=== PATIENT | male | born 1960 | race American Indian/Alaskan Native ===

== ENCOUNTER 2019-02-24 05:25 | Emergency (ER) | payer MEDICAID, OTHER, SELFPAY ==
[2019-02-24 05:30] VITALS: BP 164/110; PULSE 124; RESP 19; TEMP 36.3; O2SAT 100; BMI 31.3
[2019-02-24] MEDS: SODIUM CHLORIDE 0.9% 1,000 ML 1000 ML IV ×2 (05:45→06:37)
[2019-02-24] MEDS: PANTOPRAZOLE 40 MG VIAL IV (05:45)
[2019-02-24] MEDS: ONDANSETRON 4 MG/2 ML INJ IV (05:45)
--- NOTE | 2019-02-24 05:46 | ED_ITS ---
HPI - Nausea/Vomiting/Diarrhea General Chief complaint: Nausea/Vomiting/Diarrhea Stated complaint: vomiting since last night, cramping arms/legs Time Seen by Provider: 02/24/19 05:29 Source: patient Mode of arrival: ambulatory Limitations: no limitations History of Present Illness HPI Narrative: 58-year-old male nonsmoker with extensive alcohol history presents with multiple episodes of nausea vomiting and generalized abdominal pain over past 12 hours. He has been drinking heavily since the passing of his about 2 months ago. He has been drinking upwards of a pt of alcohol per day but over the past 2 days he split 0.5 gal with a few of his cousins. He feels generally weak and complains epigastric abdominal pain which is worse with motion, eating or drinking. He denies fever or chills. He has no headache, runny nose or sore throat. He has no chest pain or cough MD complaint: nausea and vomiting Onset (ago): hour(s) Description of Vomiting: food contents and watery Description of Diarrhea: none Associated Abdominal Pain: Yes Location of pain: diffuse Quality: cramping and aching Pain Consistency: intermittent Relieving factors: none Exacerbating factors: eating and vomiting Context: alcohol abuse Associated symptoms: denies other symptoms Related Data Previous Rx's Medication Instructions Recorded ketorolac 1 drp OPHTH QID #5 ml 06/20/17 metoprolol succinate ER 50 mg 50 mg PO BID #60 tab 10/06/18 tablet,extended release 24 hr cyclobenzaprine 10 mg tablet 10 mg PO TIDP #90 tab 10/13/18 gabapentin 300 mg capsule 300 mg PO Q8H #90 cap 10/13/18 indomethacin 50 mg capsule 50 mg PO TIDP PRN #90 cap 10/13/18 omeprazole 20 mg capsule,delayed 20 mg PO QDAY #30 cap 10/13/18 release amitriptyline 25 mg tablet 25 mg PO BEDTIME #30 tab 01/07/19 ondansetron 4 mg PO TID-QID PRN #10 tab 02/24/19 Allergies Allergy/AdvReac Type Severity Reaction Status Date / Time No Known Drug Allergies Allergy Verified 10/13/18 13:23 Review of Systems Constitutional Denies chills, Denies fever(s), Denies lethargy and Denies weakness Eyes Denies change in vision, Denies eye discharge, Denies irritation and Denies loss of vision ENT Ears, Nose, Mouth, and Throat: Denies change in voice, Denies neck pain and De nies sore throat Cardiovascular Denies chest pain, Denies irregular heart rhythm, Denies lightheadedness, Denies palpitations, Denies dyspnea, Denies dyspnea on exertion and Denies orthopnea Respiratory Denies cough, Denies dyspnea, Denies dyspnea on exertion and Denies wheezing Gastrointestinal Gastrointestinal: Reports abdominal pain, Denies change in bowel habits, Denies diarrhea, Reports nausea and Reports vomiting Genitourinary Denies hematuria, Denies flank pain, Denies urinary incontinence and Denies urinary urgency Musculoskeletal Denies neck pain Integumentary/Breasts Denies pruritus, Denies erythema, Denies rash and Denies wounds Neurologic Denies confusion, Denies loss of vision and Denies weakness Psychiatric Denies anxiety, Denies confusion, Denies depression, Denies homicidal ideation and Denies suicidal ideation Endocrine Denies palpitations Hematologic/Lymphatic Denies easy bruising Allergic/Immunologic Denies wheezing [facility] Medical History Acid reflux (Chronic) Tobacco use disorder, moderate, in early remission (Chronic) Hypertension (Chronic) Ankylosing spondylitis (Chronic) Fracture cervical vertebra-closed (Acute) Ankle pain (Chronic) Ankylosing spondylitis (Chronic 1985) Chronic back pain (Chronic) Foot pain (Chronic) GERD (gastroesophageal reflux disease) (Chronic) Hypertension (Chronic) Muscle pain (Chronic) Alcohol abuse (Resolved) Surgical History History of open reduction and internal fixation (ORIF) procedure (Resolved 2005) History of tonsillectomy (Resolved) Status post colonoscopy (Resolved 2012) Status post incision and drainage (Resolved) Family History (Updated 09/02/18 @ 14:59 by Norma Jackson) Father No problems noted. Mother Cancer Other Alcoholism Colorectal cancer Social History Smoking Status: Current every day smoker Family History Father No problems noted. Mother Cancer Other Alcoholism Colorectal cancer Social History Smoking Status: Current every day smoker Exam Narrative Exam Narrative: GENERAL: 58-year-old male appears older than stated age, ac tively vomiting and diaphoretic HEAD: Atraumatic. Normocephalic. No temporal or scalp tenderness. EYES: Pupils equal round and reactive. Extraocular motions intact. No scleral icterus. No injection or drainage. ENT: Nose without bleeding, purulent drainage or septal hematoma. Throat without erythema, tonsillar hypertrophy or exudate. Uvula midline. Airway patent. NECK: Trachea midline. No JVD or lymphadenopathy. Supple, nontender, no meningeal signs. CARDIOVASCULAR: Tachycardic with regular rhythm without murmurs, gallops, or rubs. RESPIRATORY: Clear to auscultation. Breath sounds equal bilaterally. No wheezes, rales, or rhonchi. GASTROINTESTINAL: Abdomen soft, generalized tenderness, nondistended. No hepato- splenomegaly, or palpable masses. No guarding. EXTREMITIES: No clubbing, cyanosis, or edema. No joint tenderness, effusion, or edema noted. BACK: Nontender without deformity or crepitance. No flank tenderness. NEURO: AOx3. SKIN: No rash or erythema. Initial Vital Signs Initial Vital Signs: Vital Signs Temperature 97.3 F L 02/24/19 05:30 Pulse Rate 124 H 02/24/19 05:30 Respiratory Rate 19 02/24/19 05:30 Blood Pressure 164/110 H 02/24/19 05:30 Pulse Oximetry 100 02/24/19 05:30 Course Orders Ordered: Discontinued Medications Acetaminophen (Tylenol) 975 mg PO NOW ONE Stop: 02/24/19 07:48 Last Admin: 02/24/19 07:48 Dose: 975 mg Sodium Chloride (Normal Saline 0.9%) 1,000 mls @ 1,000 mls/hr IV BOLUS ONE Stop: 02/24/19 06:37 Last Infusion: 02/24/19 06:37 Dose: 0 mls/hr Admin: 02/24/19 05:45 Dose: 1,000 mls/hr Sodium Chloride (Normal Saline 0.9%) 1,000 mls @ 1,000 mls/hr IV BOLUS ONE Stop: 02/24/19 07:36 Last Infusion: 02/24/19 07:47 Dose: 0 mls/hr Admin: 02/24/19 06:37 Dose: 1,000 mls/hr Ondansetron HCl (Zofran) 4 mg IV NOW ONE Stop: 02/24/19 05:39 Last Admin: 02/24/19 05:45 Dose: 4 mg Pantoprazole Sodium (Protonix) 40 mg IV NOW ONE Stop: 02/24/19 05:39 Last Admin: 02/24/19 05:45 Dose: 40 mg Potassium Chloride (Potassium Chloride) 40 meq PO NOW ONE Stop: 02/24/19 06:56 Last Admin: 02/24/19 07:00 Dose: 40 meq Vital Signs - 8 hr 02/24/19 05:30 02/24/19 06:04 Temperature 97.3 F L Pulse Rate 124 H 108 H Respiratory Rate 19 13 Blood Pressure 164/110 H Blood Pressure [Right Arm] 145/102 H Pulse Oximetry 100 97 MDM - Nausea/Vomiting/Diarrhea Lab Data Result diagrams: 02/24/19 05:50 02/24/19 05:50 Lab Results 02/24/19 02/24/19 02/24/19 Range/Units 05:41 05:50 05:50 WBC 8.6 (4.5-11.0) X10^3/uL RBC 4.91 (4.5-5.9) X10^6/uL Hgb 16.9 (13.5-17.5) g/dL Hct 47.7 (41-53) % MCV 97.2 (80-100) fL MCH 34.4 H (26-34) PG MCHC 35.4 (30-36) % RDW 16.4 H (11.6-14.8) % Plt Count 260 (150-400) X10^3/uL Neut % (Auto) 73.2 (50-75) % Lymph % (Auto) 17.4 L (25-40) % [place] % (Auto) 8.0 (3-14) % Eos % (Auto) 0.2 L (2-4) % Baso % (Auto) 1.2 (0-2) % Neut # (Auto) 6300 (4897-1630) /uL Lymph # (Auto) 1500 (8112-7393) /uL [place] # (Auto) 700 (0-900) /uL Eos # (Auto) 0 (0-450) /uL Baso # (Auto) 100 (0-100) /uL VBG pH 7.43 (7.33-7.43) VBG pCO2 38.8 L (45-50) mmHg VBG pO2 33 L (35-45) mmHg VBG HCO3 26 (23-28) mmol/L VBG Total CO2 27 (24-29) mmol/L VBG O2 Saturation 66 L (70-75) % VBG Base Excess 2.0 (0-4) mmol/L Sodium 137 (137-145) mmol/L Potassium 3.2 L (3.4-5.1) mmol/L Chloride 98 (98-107) mmol/L Carbon Dioxide 26 (22-32) mmol/L BUN 4 L (9-20) mg/dL Creatinine 0.70 (0.66-1.25) mg/dL Estimated GFR > 60.0 (>60) mL/min BUN/Creatinine Ratio 5.7 L (6-22) Glucose 128 H (70-100) mg/dL Calcium 8.8 (8.4-10.2) mg/dL Total Bilirubin 1.1 (0.2-1.3) mg/dL AST 48 (17-59) IU/L ALT 43 (21-72) IU/L Alkaline Phosphatase 142 H (38-126) U/L Total Protein 7.8 (6.3-8.2) g/dL Albumin 4.5 (3.5-5.0) g/dL Globulin 3.3 (1.7-4.1) g/dL Albumin/Globulin Ratio 1.4 (1.0-2.8) Lipase 233 (23-300) U/L Ethyl Alcohol < 10 mg/dL Influenza A & B (PCR) (Negative) 02/24/19 02/24/19 02/24/19 Range/Units 05:50 05:50 05:50 WBC (4.5-11.0) X10^3/uL RBC (4.5-5.9) X10^6/uL Hgb (13.5-17.5) g/dL Hct (41-53) % MCV (80-100) fL MCH (26-34) PG MCHC (30-36) % RDW (11.6-14.8) % Plt Count (150-400) X10^3/uL Neut % (Auto) (50-75) % Lymph % (Auto) (25-40) % [place] % (Auto) (3-14) % Eos % (Auto) (2-4) % Baso % (Auto) (0-2) % Neut # (Auto) (3004-3464) /uL Lymph # (Auto) (7659-5109) /uL [place] # (Auto) (0-900) /uL Eos # (Auto) (0-450) /uL Baso # (Auto) (0-100) /uL VBG pH (7.33-7.43) VBG pCO2 (45-50) mmHg VBG pO2 (35-45) mmHg VBG HCO3 (23-28) mmol/L VBG Total CO2 (24-29) mmol/L VBG O2 Saturation (70-75) % VBG Base Excess (0-4) mmol/L Sodium (137-145) mmol/L Potassium (3.4-5.1) mmol/L Chloride (98-107) mmol/L Carbon Dioxide (22-32) mmol/L BUN (9-20) mg/dL Creatinine (0.66-1.25) mg/dL Estimated GFR (>60) mL/min BUN/Creatinine Ratio (6-22) Glucose (70-100) mg/dL Calcium (8.4-10.2) mg/dL Total Bilirubin (0.2-1.3) mg/dL AST (17-59) IU/L ALT (21-72) IU/L Alkaline Phosphatase (38-126) U/L Total Protein (6.3-8.2) g/dL Albumin (3.5-5.0) g/dL Globulin (1.7-4.1) g/dL Albumin/Globulin Ratio (1.0-2.8) Lipase Cancelled (23-300) U/L Ethyl Alcohol Cancelled mg/dL Influenza A & B (PCR) Negative (Negative) MDM Narrative Medical decision making narrative: Multiple etiologies for patient's symptoms considered including: [Pancreatitis, gallbladder disease, alcoholic ketoacidosis versus gastritis versus other] Patient's symptoms improved or duration of stay with above-stated therapies. Findings and discharge diagnosis discussed with patient/family followed by verbalization of understanding Return precautions discussed with patient/family whom verbalize understanding. Discharge Plan Departure Patient Disposition: Home Clinical Impression: Dehydration, Alcohol abuse, Acute hypokalemia Discharge Date/Time: 02/24/19 07:51 Interventions: ED Discharge Assessment Last Done: 02/24/19 07:50 Instructions: DI for Dehydration -- Adult, DI for Vomiting -- Adult Activity Restrictions/Additional Instructions: 1. Drink plenty of fluids with frequent small sips. 2. For the next 24 hours a clear liquid diet is advised. After that please employ a brat diet which would include bananas, rice, apples, toast. 3. Please take medications as directed. Your prescription has been electronically transmitted to [facility] at your request 4. Please follow-up with your doctor in the next 1-2 days. Call the office for an appointment. 5. Please return to the emergency Department for any worsening or persistent symptoms, such as increasing pain or fever. Prescriptions: New ondansetron 4 mg tablet,disintegrating 4 mg PO TID-QID PRN (Reason: nausea and vomiting) Qty: 10 RF: 0 No Action ketorolac 0.4 % drops 1 drp OPHTH QID Qty: 5 RF: 0 metoprolol succinate [Toprol XL] 50 mg tablet extended release 24 hr 50 mg PO BID Qty: 60 RF: 11 amitriptyline 25 mg tablet 25 mg PO BEDTIME Qty: 30 RF: 1 gabapentin [Neurontin] 300 mg capsule 300 mg PO Q8H Qty: 90 RF: 11 cyclobenzaprine 10 mg tablet 10 mg PO TIDP Qty: 90 RF: 5 indomethacin 50 mg capsule 50 mg PO TIDP PRN (Reason: pain, moderate) Qty: 90 RF: 5 omeprazole 20 mg capsule,delayed release(DR/EC) 20 mg PO QDAY Qty: 30 RF: 11 Referrals: Sanna Zurita DO [Primary Care Provider] -
[2019-02-24 05:57] LABS: HCO3 VBG 26 mmol/L (23-28); Oxygen Saturation VBG 66 % (70-75); PCO2 VBG 38.8 mmHg (45-50); PO2 VBG 33 mmHg (35-45); Total CO2 VBG 27 mmol/L (24-29); pH VBG 7.43 (7.33-7.43)
[2019-02-24 06:04] VITALS: BP 145/102; PULSE 108; RESP 13; O2SAT 97
[2019-02-24 06:05] LABS: Add Manual Diff / Slide Review NO; Basophils Absolute Auto 100 /uL (0-100); Basophils Percent Auto 1.2 % (0-2); Eosinophils Absolute Auto 0 /uL (0-450); Eosinophils Percent Auto 0.2 % (2-4); Hematocrit 47.7 % (41-53); Hemoglobin 16.9 g/dL (13.5-17.5); Lymphocytes Absolute Auto 1500 /uL (1100-4500); Lymphocytes Percent Auto 17.4 % (25-40); Mean Corpuscular HGB Conc 35.4 % (30-36); Mean Corpuscular Hemoglobin 34.4 PG (26-34); Mean Corpuscular Volume 97.2 fL (80-100); Monocytes Absolute Auto 700 /uL (0-900); Neutrophils Absolute Auto 6300 /uL (1500-7000); Neutrophils Percent Auto 73.2 % (50-75); Platelet Count 260 X10^3/uL (150-400); Red Blood Cell Count 4.91 X10^6/uL (4.5-5.9); Red Cell Distribution Width 16.4 % (11.6-14.8); White Blood Cell Count 8.6 X10^3/uL (4.5-11.0)
--- NOTE | 2019-02-24 06:08 | PC.NURSE ---
patient states that since his several weeks ago he has been drinking about a pint of liquor a day. yesterday him and some friends shared a half gallon of liquor. he started vomiting at 2300 last night and states his arms and legs are cramping. he also reports abdominal cramping. denies any hematemesis. provider aware and no new orders at this time.
[2019-02-24 06:23] LABS: Alanine Aminotransferase 43 IU/L (21-72); Albumin 4.5 g/dL (3.5-5.0); Albumin Globulin Ratio 1.4 (1.0-2.8); Alkaline Phosphatase 142 U/L (38-126); Aspartate Aminotransferase 48 IU/L (17-59); BUN Creatinine Ratio 5.7 (6-22); Bilirubin Total 1.1 mg/dL (0.2-1.3); Blood Urea Nitrogen 4 mg/dL (9-20); Calcium 8.8 mg/dL (8.4-10.2); Carbon Dioxide 26 mmol/L (22-32); Chloride 98 mmol/L (98-107); Estimated Glomerular Filt Rate > 60.0 mL/min (>60); Ethanol (ETOH) < 10 mg/dL; Globulin 3.3 g/dL (1.7-4.1); Glucose 128 mg/dL (70-100); HEMOLYSIS 36 (0-50); Lipase 233 U/L (23-300); Potassium 3.2 mmol/L (3.4-5.1); Sodium 137 mmol/L (137-145); Total Protein 7.8 g/dL (6.3-8.2)
[2019-02-24 06:24] LABS: Influenza A and B by PCR Rapid Negative (Negative)
[2019-02-24 06:30] VITALS: BP 153/96; PULSE 104; RESP 24; O2SAT 98
[2019-02-24] MEDS: POTASSIUM CHLORIDE 20 MEQ/15 ML UDC 40 MEQ PO (07:00)
[2019-02-24 07:02] VITALS: BP 141/92; PULSE 103; RESP 19; O2SAT 99
[2019-02-24] MEDS: ACETAMINOPHEN 325 MG TABLET 975 MG PO (07:48)
== END 2019-02-24 07:51 | disposition home or self-care (01) ==
PROVIDERS: Emergency Provider Emergency Medicine; Family Provider Family Medicine; PCP Family Medicine
DX: E86.0 Dehydration (principal); R10.9 Unspecified abdominal pain; E87.6 Hypokalemia; F10.10 Alcohol abuse, uncomplicated
CPT/HCPCS: 36591; 80053; 80320; 82805; 83690; 85025; 87400; 96361; 96374; 96375; 99283; 99284; C9113; J2405

== ENCOUNTER 2019-10-07 07:43 | Emergency (ER) | payer MEDICAID, OTHER, SELFPAY ==
[2019-10-07] VITALS (9 sets, daily range): BP systolic 143–171; BP diastolic 93–119; PULSE 97–137; RESP 10–20; TEMP 36.4–36.8; O2SAT 97–100
--- NOTE | 2019-10-07 07:55 | ED_ITS ---
HPI - General Adult General Chief complaint: Skin/Abscess/Foreign Body Stated complaint: fever throwing up Time Seen by Provider: 10/07/19 07:48 Source: patient Mode of arrival: Family Vehicle Limitations: no limitations History of Present Illness HPI narrative: 58-year-old male who admits to drinking ?hard alcohol ?and also using IV drugs here for evaluation for proximally 1 week of fevers and feeling poorly. He states that at the start of all of his symptoms he had a wound on his left leg. He states he was supposed to go in to a clinic last to have it evaluated but did not make it. He also has wounds on his left arm. He is unsure how he got these wounds. He states that he thinks that they are ?spider bites? he has never had anything like this in the past. He states that he thinks that he scratches them at night. Over the past day or so he has noticed worsening pain in his left leg and also swelling in his left hand. The pain is causing him to limp. He has also had some nausea. Related Data Previous Rx's Medication Instructions Recorded ketorolac 1 drp OPHTH QID #5 ml 06/20/17 metoprolol succinate 50 mg 50 mg PO BID #60 tab 10/06/18 tablet,extended release 24 hr cyclobenzaprine 10 mg tablet 10 mg PO TIDP #90 tab 10/13/18 gabapentin 300 mg capsule 300 mg PO Q8H #90 cap 10/13/18 indomethacin 50 mg capsule 50 mg PO TIDP PRN #90 cap 10/13/18 omeprazole 20 mg capsule,delayed 20 mg PO QDAY #30 cap 10/13/18 release amitriptyline 25 mg tablet 25 mg PO BEDTIME #30 tab 01/07/19 ondansetron 4 mg PO TID-QID PRN #10 tab 02/24/19 doxycycline hyclate 100 mg PO BID 7 Days #14 tab 10/07/19 Allergies Allergy/AdvReac Type Severity Reaction Status Date / Time No Known Drug Allergies Allergy Verified 10/13/18 13:23 Review of Systems Constitutional Constitutional: Reports fatigue, Reports fever(s) and Reports malaise ENT Ears, Nose, Mouth, and Throat: Denies disequilibrium Cardiovascular Cardiovascular: Denies chest pain and Denies dyspnea Respiratory Respiratory: Denies dyspnea Gastrointestinal Gastrointestinal: Denies abdominal pain, Denies change in stool character and Reports nausea Genitourinary Genitourinary: Denies dysuria Musculoskeletal Comments: Left leg pain, swelling his left hand and left leg Integumentary/Breasts Comments: Wounds the left leg and left arm Neurologic Neurologic: Denies behavioral changes, Denies paresthesias and Denies disequilibrium Psychiatric Psychiatric: Denies behavioral changes Endocrine Endocrine: Reports fatigue Hematologic/Lymphatic Hematologic/Lymphatic: Denies easy bleeding and Denies easy bruising Patient History Medical History Acid reflux (Chronic) Alcohol abuse (Resolved) Ankle pain (Chronic) Ankylosing spondylitis (Chronic 1986) Ankylosing spondylitis (Chronic) Chronic back pain (Chronic) Foot pain (Chronic) Fracture cervical vertebra-closed (Acute) GERD (gastroesophageal reflux disease) (Chronic) Hypertension (Chronic) Hypertension (Chronic) Muscle pain (Chronic) Tobacco use disorder, moderate, in early remission (Chronic) Social History Smoking Status: Current every day smoker alcohol intake frequency: 3 or more drinks per day Substance Use Type: former substance user and marijuana Exam Initial Vital Signs Initial Vital Signs: Vital Signs Temperature 98.2 F 10/07/19 07:43 Pulse Rate 137 H 10/07/19 07:43 Respiratory Rate 20 10/07/19 07:43 Blood Pressure 148/100 H 10/07/19 07:43 Pulse Oximetry 98 10/07/19 07:43 Const General: cooperative, No in distress and ill appearing Orientation: alert, awake and oriented x3 HENMT Head: normal to inspection and normocephalic Resp Effort & Inspection: normal respiratory effort Auscultation: clear to auscultation bilaterally Cardio Rate: tachycardic Rhythm: regular rhythm Pulses: radial pulses present and dorsalis pedis present GI Inspection: non-distended Palpation: soft Skin Other: Patient with a 2 cm round area of crusting ulceration to the anterior aspect of the distal left lower extremity with a surrounding 3 cm of erythema around this. Patient has multiple wounds to his left upper arm both proximal and distal all 1-3 cm with surrounding area of erythema. One of the wounds was draining purulent material. Neuro General: alert, awake and oriented x3 Cognition: normal cognition Speech: speech normal Extrem Other: Patient was swelling to the left hand left lower extremity Psych Appearance: grossly normal and disheveled Affect: normal affect Attitude: cooperative Scores GCS [place] coma scale eye opening: Spontaneous Yuri coma scale verbal response: Orientated Yuri coma scale motor response: Obey commands Yuri coma scale total score: 15 Course Orders Ordered: ED Orders 10/07/19 07:56 XR chest 1V Stat 10/07/19 08:01 EKG-12 Lead Stat 10/07/19 08:05 Blood Culture Stat 10/07/19 08:07 Wound Culture and Gram Stain Stat 10/07/19 08:10 Complete Blood Count AUTO DIFF Stat Comprehensive Metabolic Panel Stat Ethanol (ETOH) Stat Lactate (Lactic Acid) Stat Lipase Stat Procalcitonin Stat Troponin I Stat 10/07/19 10:00 Urine Drug Screen, Rapid Stat 10/07/19 10:07 Lactate (Lactic Acid) Stat Discontinued Medications Acetaminophen (Tylenol) 650 mg PO NOW ONE Stop: 10/07/19 11:27 Last Admin: 10/07/19 11:42 Dose: 650 mg Documented by: LEANNA Diphtheria/Tetanus/Acell Pertussis (Adacel) 0.5 ml IM .ONCE ONE Stop: 10/07/19 08:39 Last Admin: 10/07/19 08:53 Dose: 0.5 ml Documented by: LEANNA Sodium Chloride (Normal Saline 0.9%) 1,000 mls @ 1,000 mls/hr IV BOLUS ONE Stop: 10/07/19 08:55 Last Infusion: 10/07/19 10:09 Dose: 0 mls/hr Documented by: Admin: 10/07/19 08:13 Dose: 1,000 mls/hr Documented by: LEANNA Vancomycin HCl (Vancomycin) 1,000 mg in 200 mls @ 200 mls/hr IV NOW ONE Stop: 10/07/19 09:06 Last Infusion: 10/07/19 10:03 Dose: 0 mls/hr Documented by: Admin: 10/07/19 08:53 Dose: 200 mls/hr Documented by: LEANNA Ceftriaxone Sodium/Dextrose (Rocephin) 1 gm in 50 mls @ 100 mls/hr IV NOW ONE Stop: 10/07/19 08:37 Last Infusion: 10/07/19 08:52 Dose: 0 mls/hr Documented by: Admin: 10/07/19 08:14 Dose: 100 mls/hr Documented by: LEANNA Ondansetron HCl (Zofran) 4 mg IV NOW ONE Stop: 10/07/19 09:15 Last Admin: 10/07/19 09:25 Dose: 4 mg Documented by: DENILSON Vital Signs Vital signs: Vital Signs - 8 hr 10/07/19 07:43 10/07/19 08:32 10/07/19 09:03 Temperature 98.2 F Pulse Rate 137 H 117 H 104 H Respiratory Rate 20 10 L 10 L Blood Pressure 148/100 H Blood Pressure [Left Arm] 143/106 H 164/98 H Pulse Oximetry 98 97 98 10/07/19 09:31 10/07/19 10:11 10/07/19 11:30 Temperature Pulse Rate 98 H 97 H 113 H Respiratory Rate 15 13 14 Blood Pressure Blood Pressure [Left Arm] 162/93 H 162/99 H 171/109 H Pulse Oximetry 97 97 99 10/07/19 11:53 10/07/19 12:05 10/07/19 12:08 Temperature 97.6 F Pulse Rate 104 H 98 H 103 H Respiratory Rate 14 17 15 Blood Pressure 152/93 H Blood Pressure [Left Arm] 162/119 H 152/93 H Pulse Oximetry 100 100 98 Medical Decision Making Lab Data Lab results reviewed: Yes I reviewed the patient's lab results. Result diagrams: 10/07/19 08:10 10/07/19 08:10 Labs: Lab Results 10/07/19 10/07/19 10/07/19 Range/Units 08:10 08:10 08:10 WBC 7.5 (4.5-11.0) X10^3/uL RBC 4.42 L (4.5-5.9) X10^6/uL Hgb 15.1 (13.5-17.5) g/dL Hct 43.2 (41-53) % MCV 97.6 (80-100) fL MCH 34.2 H (26-34) PG MCHC 35.0 (30-36) % RDW 14.6 (11.6-14.8) % Plt Count 270 (150-400) X10^3/uL Neut % (Auto) 72.7 (50-75) % Lymph % (Auto) 17.0 L (25-40) % [place] % (Auto) 8.5 (3-14) % Eos % (Auto) 0.5 L (2-4) % Baso % (Auto) 1.3 (0-2) % Neut # (Auto) 5400 (5954-4273) /uL Lymph # (Auto) 1300 (3179-9356) /uL [place] # (Auto) 600 (0-900) /uL Eos # (Auto) 0 (0-450) /uL Baso # (Auto) 100 (0-100) /uL Sodium 141 (137-145) mmol/L Potassium 3.5 (3.4-5.1) mmol/L Chloride 104 (98-107) mmol/L Carbon Dioxide 23 (22-32) mmol/L BUN 4 L (9-20) mg/dL Creatinine 0.70 (0.66-1.25) mg/dL Estimated GFR > 60.0 (>60) mL/min BUN/Creatinine Ratio 5.7 L (6-22) Glucose 122 H (70-100) mg/dL Lactate (0.7-2.1) mmol/L Calcium 8.9 (8.4-10.2) mg/dL Total Bilirubin 0.9 (0.2-1.3) mg/dL AST 41 (17-59) IU/L ALT 18 (<50) IU/L Alkaline Phosphatase 145 H (38-126) U/L Troponin I (0.01-0.034) ng/mL Total Protein 8.1 (6.3-8.2) g/dL Albumin 4.1 (3.5-5.0) g/dL Globulin 4.0 (1.7-4.1) g/dL Albumin/Globulin Ratio 1.0 (1.0-2.8) Lipase 218 (23-300) U/L Procalcitonin < 0.05 (<0.5) ng/mL U Morph 300 ng/mL cutoff (Negative) Ur Oxycodone Screen (Negative) Urine Methadone Screen (Negative) Ur Barbiturates Screen (Negative) U Tricyclic Antidepress (Negative) Ur Phencyclidine Scrn (Negative) Ur Amphetamines Screen (Negative) U Methamphetamines Scrn (Negative) Ur MDMA Scrn (Ecstasy) (Negative) U Benzodiazepines Scrn (Negative) Urine Cocaine Screen (Negative) U Marijuana (THC) Screen (Negative) Ethyl Alcohol 84 H ( - 10) mg/dL 10/07/19 10/07/19 10/07/19 Range/Units 08:10 08:10 10:00 WBC (4.5-11.0) X10^3/uL RBC (4.5-5.9) X10^6/uL Hgb (13.5-17.5) g/dL Hct (41-53) % MCV (80-100) fL MCH (26-34) PG MCHC (30-36) % RDW (11.6-14.8) % Plt Count (150-400) X10^3/uL Neut % (Auto) (50-75) % Lymph % (Auto) (25-40) % [place] % (Auto) (3-14) % Eos % (Auto) (2-4) % Baso % (Auto) (0-2) % Neut # (Auto) (4269-8777) /uL Lymph # (Auto) (5904-3131) /uL [place] # (Auto) (0-900) /uL Eos # (Auto) (0-450) /uL Baso # (Auto) (0-100) /uL Sodium (137-145) mmol/L Potassium (3.4-5.1) mmol/L Chloride (98-107) mmol/L Carbon Dioxide (22-32) mmol/L BUN (9-20) mg/dL Creatinine (0.66-1.25) mg/dL Estimated GFR (>60) mL/min BUN/Creatinine Ratio (6-22) Glucose (70-100) mg/dL Lactate 3.4 H (0.7-2.1) mmol/L Calcium (8.4-10.2) mg/dL Total Bilirubin (0.2-1.3) mg/dL AST (17-59) IU/L ALT (<50) IU/L Alkaline Phosphatase (38-126) U/L Troponin I < 0.012 (0.01-0.034) ng/mL Total Protein (6.3-8.2) g/dL Albumin (3.5-5.0) g/dL Globulin (1.7-4.1) g/dL Albumin/Globulin Ratio (1.0-2.8) Lipase (23-300) U/L Procalcitonin (<0.5) ng/mL U Morph 300 ng/mL cutoff Positive H (Negative) Ur Oxycodone Screen Negative (Negative) Urine Methadone Screen Negative (Negative) Ur Barbiturates Screen Negative (Negative) U Tricyclic Antidepress Negative (Negative) Ur Phencyclidine Scrn Negative (Negative) Ur Amphetamines Screen Negative (Negative) U Methamphetamines Scrn Positive H (Negative) Ur MDMA Scrn (Ecstasy) Negative (Negative) U Benzodiazepines Scrn Negative (Negative) Urine Cocaine Screen Negative (Negative) U Marijuana (THC) Screen Positive H (Negative) Ethyl Alcohol ( - 10) mg/dL 10/07/19 10/07/19 Range/Units 10:07 10:32 WBC (4.5-11.0) X10^3/uL RBC (4.5-5.9) X10^6/uL Hgb (13.5-17.5) g/dL Hct (41-53) % MCV (80-100) fL MCH (26-34) PG MCHC (30-36) % RDW (11.6-14.8) % Plt Count (150-400) X10^3/uL Neut % (Auto) (50-75) % Lymph % (Auto) (25-40) % [place] % (Auto) (3-14) % Eos % (Auto) (2-4) % Baso % (Auto) (0-2) % Neut # (Auto) (1861-3469) /uL Lymph # (Auto) (3792-4717) /uL [place] # (Auto) (0-900) /uL Eos # (Auto) (0-450) /uL Baso # (Auto) (0-100) /uL Sodium (137-145) mmol/L Potassium (3.4-5.1) mmol/L Chloride (98-107) mmol/L Carbon Dioxide (22-32) mmol/L BUN (9-20) mg/dL Creatinine (0.66-1.25) mg/dL Estimated GFR (>60) mL/min BUN/Creatinine Ratio (6-22) Glucose (70-100) mg/dL Lactate 2.7 H 2.5 H (0.7-2.1) mmol/L Calcium (8.4-10.2) mg/dL Total Bilirubin (0.2-1.3) mg/dL AST (17-59) IU/L ALT (<50) IU/L Alkaline Phosphatase (38-126) U/L Troponin I (0.01-0.034) ng/mL Total Protein (6.3-8.2) g/dL Albumin (3.5-5.0) g/dL Globulin (1.7-4.1) g/dL Albumin/Globulin Ratio (1.0-2.8) Lipase (23-300) U/L Procalcitonin (<0.5) ng/mL U Morph 300 ng/mL cutoff (Negative) Ur Oxycodone Screen (Negative) Urine Methadone Screen (Negative) Ur Barbiturates Screen (Negative) U Tricyclic Antidepress (Negative) Ur Phencyclidine Scrn (Negative) Ur Amphetamines Screen (Negative) U Methamphetamines Scrn (Negative) Ur MDMA Scrn (Ecstasy) (Negative) U Benzodiazepines Scrn (Negative) Urine Cocaine Screen (Negative) U Marijuana (THC) Screen (Negative) Ethyl Alcohol ( - 10) mg/dL Urine Dip Bedside Urine Glucose Negative Bedside Urine Bilirubin - Negative Bedside Urine Ketone +/- 5 Urine Specific [place] 1.015 Bedside Urine Occult Blood +/- Bedside Urine pH 6.5 Bedside Urine Protein - Negative Bedside Urine Urobilinogen - Negative Bedside Urine Nitrite - Negative Bedside Urine Leukocytes - Negative Esterase Point of care testing: Urine Dip Bedside Urine Glucose Negative Bedside Urine Bilirubin - Negative Bedside Urine Ketone +/- 5 Urine Specific [place] 1.015 Bedside Urine Occult Blood +/- Bedside Urine pH 6.5 Bedside Urine Protein - Negative Bedside Urine Urobilinogen - Negative Bedside Urine Nitrite - Negative Bedside Urine Leukocytes - Negative Esterase Imaging Data Chest x-ray: Radiologist's impression: [address] [address] XRay Report Signed Patient: José Miguel Do KMR#: [id number] : [id number]:[id number] Age/Sex: 58 / MDate of Service: 10/07/19 Loc: ED Accession Number: [id number] Procedure: XR chest 1V Ordering Provider: Rico Pennington D.O. PROCEDURE: XR CHEST 1V INDICATIONS: fever and sepsis TECHNIQUE: One view of the chest was acquired. COMPARISON: None. FINDINGS: Surgical changes and devices: Fusion hardware in lower cervical spine and upper thoracic spine is seen. Lungs and pleura: Lungs are clear. No pleural effusions or pneumothorax. Mediastinum: Mediastinal contours appear normal. Heart size is normal. Bones and chest wall: No suspicious bony lesions. Overlying soft tissues appear unremarkable. IMPRESSION: No acute cardiopulmonary pathology. Dictated by: Orlando Samano M.D. on 10/07/2019 at 9:26 Approved by: Orlando Samano M.D. on 10/07/2019 at 9:26 ECG Data Attestation: I personally reviewed and interpreted this ECG as follows: Prior ECG tracings: not available for review Interpretation: Sinus tachycardia Ventricular rate of 131 Normal axis Normal QRS Normal QTC ST depression V4 V5 without reciprocal elevations MDM Narrative Medical decision making narrative: Patient is tachycardic however does not have an elevated white count. Has a negative procalcitonin and is afebrile. The wounds on his left lower extremity and left upper extremity do appear to be infected. He was given antibiotics here in the ER. His initial lactate was elevated however after fluids this decreased. His heart rate also improved after fluids. He is tolerating oral intake. His alcohol level was also elevated this morning. I do feel that many of his presenting symptoms to include how he is generally feeling, nausea and his tachycardia could very well be the result of alcohol withdrawal. Patient does think that he is potentially withdrawing from some alcohol on his friend at bedside also states that he is withdrawing from alcohol. Patient denies any recent use of amphetamines and this was positive in his urine and this could also be the cause of some of his presenting symptoms as well. The wounds on his leg in arm show no signs of abscesses. No indication for incision and drainage. Cultures were obtained. I did discuss the alcohol use with the patient. He declined any offer for help with this out of the emergency department. Given his labs, improvement in his lactate, improvement in his vital signs, I feel that a trial of outpatient antibiotics is warranted. Will send home with doxycycline. He was instructed on return precautions. He was instructed on follow-up. He expressed understanding and agreement with plan. Patient was alert oriented x3 my opinion has capacity to make decisions. Discharge Plan Departure Patient Disposition: Home Clinical Impression: Cellulitis Qualifiers: Site of cellulitis: extremity Site of cellulitis of extremity: lower extremity Laterality: left Qualified Code(s): L03.116 - Cellulitis of left lower limb Alcohol intoxication Qualifiers: Complication of substance-induced condition: with unspecified complication Qu alified Code(s): F10.929 - Alcohol use, unspecified with intoxication, unspecified Discharge Date/Time: 10/07/19 12:05 Instructions: DI for Cellulitis -- Adult, Alcohol Use Disorder Activity Restrictions/Additional Instructions: Recommend that you start taking the antibiotics as directed. No driving for the next 24 hours or in the future if you drink alcohol. [place]. Return to the emergency department for any new or worsening symptoms. Continue the rest of your medications as directed Prescriptions: New doxycycline hyclate 100 mg tablet 100 mg PO BID 7 Days Qty: 14 RF: 0 No Action ketorolac 0.4 % drops 1 drp OPHTH QID Qty: 5 RF: 0 metoprolol succinate [Toprol XL] 50 mg tablet extended release 24 hr 50 mg PO BID Qty: 60 RF: 11 amitriptyline 25 mg tablet 25 mg PO BEDTIME Qty: 30 RF: 1 gabapentin [Neurontin] 300 mg capsule 300 mg PO Q8H Qty: 90 RF: 11 cyclobenzaprine 10 mg tablet 10 mg PO TIDP Qty: 90 RF: 5 indomethacin 50 mg capsule 50 mg PO TIDP PRN (Reason: pain, moderate) Qty: 90 RF: 5 omeprazole 20 mg capsule,delayed release(DR/EC) 20 mg PO QDAY Qty: 30 RF: 11 ondansetron 4 mg tablet,disintegrating 4 mg PO TID-QID PRN (Reason: nausea and vomiting) Qty: 10 RF: 0 Referrals: Sanna Zurita DO [Primary Care Provider] -
[2019-10-07] MEDS: SODIUM CHLORIDE 0.9% 1,000 ML 1000 ML IV (08:13)
[2019-10-07] MEDS: CEFTRIAXONE 1 GM/50 ML FROZ.PIGGY IV (08:14)
[2019-10-07 08:20] LABS: Add Manual Diff / Slide Review NO; Basophils Absolute Auto 100 /uL (0-100); Basophils Percent Auto 1.3 % (0-2); Eosinophils Absolute Auto 0 /uL (0-450); Eosinophils Percent Auto 0.5 % (2-4); Hematocrit 43.2 % (41-53); Hemoglobin 15.1 g/dL (13.5-17.5); Lymphocytes Absolute Auto 1300 /uL (1100-4500); Mean Corpuscular Hemoglobin 34.2 PG (26-34); Mean Corpuscular Volume 97.6 fL (80-100); Monocytes Absolute Auto 600 /uL (0-900); Monocytes Percent Auto 8.5 % (3-14); Neutrophils Absolute Auto 5400 /uL (1500-7000); Neutrophils Percent Auto 72.7 % (50-75); Platelet Count 270 X10^3/uL (150-400); Red Blood Cell Count 4.42 X10^6/uL (4.5-5.9); Red Cell Distribution Width 14.6 % (11.6-14.8); White Blood Cell Count 7.5 X10^3/uL (4.5-11.0)
[2019-10-07 08:31] LABS: Alanine Aminotransferase 18 IU/L (<50); Albumin 4.1 g/dL (3.5-5.0); Alkaline Phosphatase 145 U/L (38-126); Aspartate Aminotransferase 41 IU/L (17-59); BUN Creatinine Ratio 5.7 (6-22); Bilirubin Total 0.9 mg/dL (0.2-1.3); Blood Urea Nitrogen 4 mg/dL (9-20); Calcium 8.9 mg/dL (8.4-10.2); Carbon Dioxide 23 mmol/L (22-32); Chloride 104 mmol/L (98-107); Estimated Glomerular Filt Rate > 60.0 mL/min (>60); Ethanol (ETOH) 84 mg/dL; Glucose 122 mg/dL (70-100); HEMOLYSIS 38 (0-50); Lactate (Lactic Acid) 3.4 mmol/L (0.7-2.1); Lipase 218 U/L (23-300); Potassium 3.5 mmol/L (3.4-5.1); Sodium 141 mmol/L (137-145); Total Protein 8.1 g/dL (6.3-8.2)
--- NOTE | 2019-10-07 08:32 | PC.NURSE ---
left arm and left leg are swollen with multiple wounds. leg has one wound. arm and leg are edematous. areas of redness are outlined with a marker.
[2019-10-07 08:42] LABS: Troponin I < 0.012 ng/mL (0.01-0.034)
[2019-10-07 08:47] LABS: Procalcitonin < 0.05 ng/mL (<0.5)
[2019-10-07] MEDS: VANCOMYCIN 1,000 MG/200 ML PIGGYBACK 200 MG IV (08:53)
[2019-10-07] MEDS: TET,DIPH,PERTUSS(ACELL),VAC/PF 0.5 ML SYRINGE IM (08:53)
[2019-10-07] MEDS: ONDANSETRON 4 MG/2 ML INJ IV (09:25)
[2019-10-07 10:15] LABS: Reflexed Lactate in 2 Hours Y
[2019-10-07 10:23] LABS: UR Morphine/Opiate cutoff 300 Positive (Negative); Ur Creatinine Normal (Normal); Ur Specific Gravity Normal (Normal); Urine Amphetamines Negative (Negative); Urine Barbiturates Negative (Negative); Urine Benzodiazepines Negative (Negative); Urine Cocaine Negative (Negative); Urine MDMA Negative (Negative); Urine Methadone Negative (Negative); Urine Methamphetamines Positive (Negative); Urine Oxycodone Negative (Negative); Urine Phencyclidine Negative (Negative); Urine Tetrahydrocannabinol Positive (Negative); Urine Tricyclic Antidepressant Negative (Negative); Urine pH Normal (Normal)
[2019-10-07 10:27] LABS: Lactate (Lactic Acid) 2.7 mmol/L (0.7-2.1)
[2019-10-07 10:52] LABS: Lactate 2HR (Lactic Acid Rflx) 2.5 mmol/L (0.7-2.1)
[2019-10-07] MEDS: ACETAMINOPHEN 325 MG TABLET 650 MG PO (11:42)
[2019-10-07 12:12] LABS: Reflexed Lactate in 2 Hours Y
--- NOTE | 2019-10-07 12:17 | PC.NURSE ---
pt reports that [place] his sister, kodi will be helping him.
== END 2019-10-07 12:05 | disposition home or self-care (01) ==
PROVIDERS: Emergency Provider Emergency Medicine; PCP Family Medicine
DX: L03.116 Cellulitis of left lower limb (principal); F10.929 Alcohol use, unspecified with intoxication, unspecified
CPT/HCPCS: 36415; 71045; 80053; 80305; 80320; 81003; 83605; 83690; 84145; 84484; 85025; 87040; 87070; 87077; 87147; 87205; 90471; 93005; 96365; 96367; 96374; 99285; 90715; J2405

== ENCOUNTER 2021-01-02 14:16 | Emergency (ER) | payer MEDICAID, OTHER, SELFPAY ==
[2021-01-02 14:15] VITALS: BP 142/96; PULSE 110; RESP 22; TEMP 36.2; O2SAT 96
--- NOTE | 2021-01-02 14:44 | ED.GENADULT ---
HPI - General Adult General Chief complaint: Toxicology Problem Stated complaint: Overdose Time Seen by Provider: 01/02/21 14:19 Source: EMS Mode of arrival: EMS Limitations: altered mental status History of Present Illness HPI narrative: Patient is a 60-year-old male who arrived by BLS crew after he received was reported to be 4 mg of Narcan secondary to was reported be heroin use and also alcohol. Patient is unable to provide any HPI. My unsure as to how the 4 mg of Narcan was administered. I was told that it was potentially family members who administered to him. He has been maintaining his airway in route here to the ER. Related Data Previous Rx's Medication Instructions Recorded ketorolac 1 drp OPHTH QID #5 ml 06/20/17 indomethacin 50 mg capsule 50 mg PO TIDP PRN #90 cap 10/13/18 amitriptyline 25 mg tablet 25 mg PO BEDTIME #30 tab 01/07/19 ondansetron 4 mg PO TID-QID PRN #10 tab 02/24/19 cyclobenzaprine 10 mg tablet 10 mg PO TIDP #90 tab 11/19/19 gabapentin 300 mg capsule 300 mg PO Q8H #90 cap 11/19/19 metoprolol succinate 50 mg 50 mg PO BID #60 tab 11/19/19 tablet,extended release 24 hr omeprazole 20 mg capsule,delayed 20 mg PO QDAY #30 cap 11/19/19 release Allergies Allergy/AdvReac Type Severity Reaction Status Date / Time No Known Drug Allergies Allergy Verified 10/13/18 13:23 Review of Systems Review of Systems ROS Unobtainable: Unobtainable due to mental status/LOC Patient History Medical History (Updated 01/02/21 @ 16:27 by Rico Pennington DO) Acid reflux Alcohol abuse Ankle pain Ankylosing spondylitis (1985) Ankylosing spondylitis Chronic back pain Foot pain Fracture cervical vertebra-closed GERD (gastroesophageal reflux disease) Hypertension Hypertension Muscle pain Tobacco use disorder, moderate, in early remission Surgical History History of open reduction and internal fixation (ORIF) procedure (2005) History of tonsillectomy Status post colonoscopy (2012) Status post incision and drainage Family History Father No problems noted. Mother Cancer Other Alcoholism Colorectal cancer Social History Smoking Status: Current every day smoker Smoking Status: Current every day smoker alcohol intake frequency: 3 or more drinks per day Alcohol type: hard liquor Substance Use Type: marijuana, heroin, opiates and painkillers Exam Initial Vital Signs Initial Vital Signs: Vital Signs Temperature 97.1 F L 01/02/21 14:15 Pulse Rate 110 H 01/02/21 14:15 Respiratory Rate 22 01/02/21 14:15 Blood Pressure 142/96 H 01/02/21 14:15 Pulse Oximetry 96 01/02/21 14:15 Const General: No cooperative Limitations: altered mental status HENMT Head: normal to inspection and normocephalic Resp Effort & Inspection: normal respiratory effort Auscultation: clear to auscultation bilaterally Cardio Rate: tachycardic Rhythm: regular rhythm GI Inspection: distended Palpation: No firm Skin Lesions: no lesions Rashes: no rashes Neuro General: moves all extremities Cognition: abnormal cognition Speech: abnormal speech Extrem General: normal to inspection and capillary refill normal Psych Appearance: disheveled Scores GCS [place] coma scale eye opening: Spontaneous [place] coma scale verbal response: Confused Yuri coma scale motor response: Localising Yuri coma scale total score: 13 Course Orders Ordered: ED Orders 01/02/21 14:20 EKG-12 Lead Stat 01/02/21 14:37 Complete Blood Count AUTO DIFF Stat Comprehensive Metabolic Panel Stat Ethanol (ETOH) Stat Lipase Stat 01/02/21 14:50 COVID19 Stat Vital Signs Vital signs: Vital Signs - 8 hr 01/02/21 14:15 01/02/21 15:12 Temperature 97.1 F L Pulse Rate 110 H 114 H Respiratory Rate 22 31 H Blood Pressure 142/96 H 118/89 Pulse Oximetry 96 97 Medical Decision Making Lab Data Lab results reviewed: Yes I reviewed the patient's lab results. Result diagrams: 01/02/21 14:37 01/02/21 14:37 Labs: Lab Results 01/02/21 01/02/21 01/02/21 Range/Units 14:37 14:37 14:50 WBC 5.6 (4.5-11.0) X10^3/uL RBC 4.58 (4.5-5.9) X10^6/uL Hgb 14.4 (13.5-17.5) g/dL Hct 43.6 (41-53) % MCV 95.2 (80-100) fL MCH 31.5 (26-34) PG MCHC 33.0 (30-36) % RDW 13.7 (11.6-14.8) % Plt Count 307 (150-400) X10^3/uL Neut % (Auto) 35.0 L (50-75) % Lymph % (Auto) 40.8 H (25-40) % [place] % (Auto) 5.2 (3-14) % Eos % (Auto) 16.2 H (2-4) % Baso % (Auto) 2.8 H (0-2) % Neut # (Auto) 1900 (2656-5308) /uL Lymph # (Auto) 2300 (5801-5910) /uL [place] # (Auto) 300 (0-900) /uL Eos # (Auto) 900 H (0-450) /uL Baso # (Auto) 200 H (0-100) /uL Sodium 146 H (137-145) mmol/L Potassium 3.1 L (3.4-5.1) mmol/L Chloride 104 (98-107) mmol/L Carbon Dioxide 36 H (22-32) mmol/L BUN 6 L (9-20) mg/dL Creatinine 0.78 (0.66-1.25) mg/dL Estimated GFR > 60.0 (>60) mL/min BUN/Creatinine Ratio 7.7 (6-22) Glucose 108 (80-110) mg/dL Calcium 9.3 (8.4-10.2) mg/dL Total Bilirubin 0.4 (0.2-1.3) mg/dL AST 37 (17-59) IU/L ALT 21 (<50) IU/L Alkaline Phosphatase 118 (38-126) U/L Total Protein 8.4 H (6.3-8.2) g/dL Albumin 4.3 (3.5-5.0) g/dL Globulin 4.1 (1.7-4.1) g/dL Albumin/Globulin Ratio 1.0 (1.0-2.8) Lipase 77 (23-300) U/L Ethyl Alcohol 294 H ( - 10) mg/dL SARS-CoV-2 (PCR) Negative (Negative) MDM Narrative Medical decision making narrative: There is reported the patient did improve with the Narcan. I suspect that there was a narcotic involved in his presentation today. Since being here in the emergency department he has maintained his airway. His alcohol level was elevated in this conforms to the history of drinking alcohol. Patient was able to get dressed on his own and stand at bedside. There is no other signs of trauma. His son is at bedside to take him home and states he will watch him. Discharge Plan Departure Patient Disposition: Home Clinical Impression: Alcoholic intoxication Instructions: DI for Alcohol Use Disorder Activity Restrictions/Additional Instructions: Your alcohol level was elevated. No driving for the next 24 hours or in the future if you drink alcohol. Take all of your medications as directed. Return to the emergency department for any new or worsening symptoms Prescriptions: No Action ketorolac 0.4 % drops 1 drp OPHTH QID Qty: 5 RF: 0 amitriptyline 25 mg tablet 25 mg PO BEDTIME Qty: 30 RF: 1 cyclobenzaprine 10 mg tablet 10 mg PO TIDP Qty: 90 RF: 5 gabapentin [Neurontin] 300 mg capsule 300 mg PO Q8H Qty: 90 RF: 11 metoprolol succinate [Toprol XL] 50 mg tablet extended release 24 hr 50 mg PO BID Qty: 60 RF: 11 omeprazole 20 mg capsule,delayed release(DR/EC) 20 mg PO QDAY Qty: 30 RF: 11 indomethacin 50 mg capsule 50 mg PO TIDP PRN (Reason: pain, moderate) Qty: 90 RF: 5 ondansetron 4 mg tablet,disintegrating 4 mg PO TID-QID PRN (Reason: nausea and vomiting) Qty: 10 RF: 0 Referrals: Sanna Zurita DO [Primary Care Provider] -
[2021-01-02 15:12] VITALS: BP 118/89; PULSE 114; RESP 31; O2SAT 97
[2021-01-02 15:28] LABS: Add Manual Diff / Slide Review NO; Basophils Absolute Auto 200 /uL (0-100); Basophils Percent Auto 2.8 % (0-2); Eosinophils Absolute Auto 900 /uL (0-450); Eosinophils Percent Auto 16.2 % (2-4); Hematocrit 43.6 % (41-53); Hemoglobin 14.4 g/dL (13.5-17.5); Lymphocytes Absolute Auto 2300 /uL (1100-4500); Lymphocytes Percent Auto 40.8 % (25-40); Mean Corpuscular Hemoglobin 31.5 PG (26-34); Mean Corpuscular Volume 95.2 fL (80-100); Monocytes Absolute Auto 300 /uL (0-900); Monocytes Percent Auto 5.2 % (3-14); Neutrophils Absolute Auto 1900 /uL (1500-7000); Platelet Count 307 X10^3/uL (150-400); Red Blood Cell Count 4.58 X10^6/uL (4.5-5.9); Red Cell Distribution Width 13.7 % (11.6-14.8); White Blood Cell Count 5.6 X10^3/uL (4.5-11.0)
--- NOTE | 2021-01-02 15:32 | PC.NURSE ---
Pt found to have Iv disconnected from j loop. Pt attempting to remove IV. Replaced j loop, flushes well. coban replaced. Pt given bed bath to clean up scatterd blood from having IV disconnected.
[2021-01-02 15:37] LABS: COVID19 -Nasal RAPID Negative (Negative)
[2021-01-02 15:48] LABS: Alanine Aminotransferase 21 IU/L (<50); Albumin 4.3 g/dL (3.5-5.0); Alkaline Phosphatase 118 U/L (38-126); Aspartate Aminotransferase 37 IU/L (17-59); BUN Creatinine Ratio 7.7 (6-22); Bilirubin Total 0.4 mg/dL (0.2-1.3); Blood Urea Nitrogen 6 mg/dL (9-20); Calcium 9.3 mg/dL (8.4-10.2); Carbon Dioxide 36 mmol/L (22-32); Chloride 104 mmol/L (98-107); Estimated Glomerular Filt Rate > 60.0 mL/min (>60); Ethanol (ETOH) 294 mg/dL; Globulin 4.1 g/dL (1.7-4.1); Glucose 108 mg/dL (80-110); HEMOLYSIS < 15 (0-50); Lipase 77 U/L (23-300); Potassium 3.1 mmol/L (3.4-5.1); Sodium 146 mmol/L (137-145); Total Protein 8.4 g/dL (6.3-8.2)
== END 2021-01-02 16:15 | disposition home or self-care (01) ==
PROVIDERS: Emergency Provider Emergency Medicine; PCP Family Medicine
DX: F10.129 Alcohol abuse with intoxication, unspecified (principal); F11.90 Opioid use, unspecified, uncomplicated; Y90.8 Blood alcohol level of 240 mg/100 ml or more; I10 Essential (primary) hypertension; Z20.822 Contact with and (suspected) exposure to COVID-19
CPT/HCPCS: 36415; 80053; 80320; 83690; 85025; 87635; 99281; 99283; C9803

== ENCOUNTER 2022-05-03 11:51 | Emergency (ER) | payer MEDICAID, OTHER, SELFPAY ==
[2022-05-03] VITALS (15 sets, daily range): BP systolic 93–136; BP diastolic 55–80; PULSE 73–91; RESP 12–30; TEMP 36.7; O2SAT 96–100; BMI 23.5
--- NOTE | 2022-05-03 12:03 | DI.RAD.S_ITS ---
PROCEDURE: XR CHEST 1V INDICATIONS: syncope TECHNIQUE: One view of the chest was acquired. COMPARISON: [facility], [facility], XR CHEST 1V, 10/07/2019, 8:26. FINDINGS: Surgical changes and devices: Surgical hardware in visualized lower cervical spine and upper thoracic spine is again seen. Lungs and pleura: Mild pulmonary vascular congestion is noted. Ill-defined airspace opacity in left lower lung field is seen concerning for left lower lobe infiltrate. Small patchy infiltrate/atelectasis in right mid and lower lung field is also likely present. No pleural effusions or pneumothorax. Mediastinum: Mediastinal contours appear normal. Heart size is normal. Bones and chest wall: No suspicious bony lesions. Overlying soft tissues appear unremarkable. IMPRESSION: Ill-defined opacities in bilateral lung north more prominent in left lower lobe concerning for small patchy infiltrate/atelectasis. No pleural effusion or pneumothorax. Dictated by: Orlando Samano M.D. on 05/03/2022 at 12:41 Approved by: Orlando Samano M.D. on 05/03/2022 at 12:41
--- NOTE | 2022-05-03 12:03 | DI.CT.S_ITS ---
PROCEDURE: CT HEAD/BRAIN WO CON INDICATIONS: Syncope hit head last night TECHNIQUE: Noncontrast 4.5 mm thick angled axial sections acquired from the foramen magnum to the vertex, with coronal and sagittal reformats. For radiation dose reduction, the following was used: automated exposure control, adjustment of mA and/or kV according to patient size. COMPARISON: None. FINDINGS: Image quality: Excellent. CSF spaces: Basal cisterns are patent. No extra-axial fluid collections. Ventricles are normal in size and shape. Brain: No midline shift. No intracranial masses or hemorrhage. Nicole-white matter interface is normal. Skull and face: Calvarium and visualized facial bones are intact, without suspicious lesions. Sinuses: Diffuse [id number] paranasal sinus mucosal thickening with a fluid level in the left maxillary sinus. IMPRESSION: No acute intracranial abnormality. Dictated by: Eduardo Hein M.D. on 05/03/2022 at 12:25 Approved by: Eduardo Hein M.D. on 05/03/2022 at 12:27
--- NOTE | 2022-05-03 12:04 | ED.SYNCOPE ---
HPI - Syncope General Chief Complaint: Syncope Stated Complaint: hypotensive and cough x 2 days Time Seen by Provider: 05/03/22 12:02 History of Present Illness HPI narrative: Patient is a 61-year-old male who presents from PCP office with syncope and hypotension. He apparently passed out last night hitting his head. He says he was just getting ready for bed. He does not remember exactly what happened not the greatest historian. Went to PCP office today they found blood pressure 78/40 and EMS was called. His blood pressure has improved to the 90s with IV fluids. Patient states that he has had a nonproductive cough. He is not sure that he has had fever or chills. Unsure how many times he has passed out but a few times over last couple of years. He denies any chest pain or palpitations but does have episodes of bigeminy. He is post take metoprolol which he says he is. He denies any blood thinners Related Data Previous Rx's Medication Instructions Recorded ketorolac 0.4 % eye drops 1 drp OPHTH QID #5 mL 06/20/17 indomethacin 50 mg capsule 50 mg PO TIDP PRN pain, moderate 10/13/18 #90 caps amitriptyline 25 mg tablet 25 mg PO BEDTIME #30 tabs 01/07/19 ondansetron 4 mg disintegrating 4 mg PO TID-QID PRN nausea and 02/24/19 tablet vomiting #10 tabs cyclobenzaprine 10 mg tablet 10 mg PO TIDP #90 tabs 11/19/19 gabapentin 300 mg capsule 300 mg PO Q8H #90 caps 11/19/19 (Neurontin) metoprolol succinate 50 mg 50 mg PO BID #60 tabs 11/19/19 tablet,extended release 24 hr (Toprol XL) omeprazole 20 mg capsule,delayed 20 mg PO QDAY #30 caps 11/19/19 release doxycycline hyclate 100 mg capsule 100 mg PO BID #14 caps 05/03/22 Allergies Allergy/AdvReac Type Severity Reaction Status Date / Time No Known Drug Allergies Allergy Verified 05/03/22 12:04 Review of Systems Review of Systems Narrative: GENERAL: Denies chills, fatigue, malaise, fever, sweats, travel HEENT: Denies sinus pain, ear pain, sore throat, difficulty swallowing, neck pain RESPIRATORY: Denies dyspnea, cough, wheezing, hemoptysis, sputum. CARDIOVASCULAR: See HPI GASTROINTESTINAL: Denies nausea, vomiting, abdominal pain, diarrhea, constipation, melena. : Denies dysuria, frequency, incontinence, hematuria, urinary retention, flank pain. MUSCULOSKELETAL: Denies weakness, joint pain, or bony pain SKIN: No rash, no erythema, no pruritus NEUROLOGIC: See HPI PSYCHIATRIC: No concerning psychosocial issues. 12 point review of systems is negative except for those stated above and HPI Patient History Medical History (Updated 05/03/22 @ 17:11 by Sophia Abreu DO) Acid reflux Alcohol abuse Ankle pain Ankylosing spondylitis (1985) Ankylosing spondylitis Chronic back pain Foot pain Fracture cervical vertebra-closed GERD (gastroesophageal reflux disease) Hypertension Hypertension Muscle pain Tobacco use disorder, moderate, in early remission Surgical History History of open reduction and internal fixation (ORIF) procedure (2005) History of tonsillectomy Status post colonoscopy (2012) Status post incision and drainage Family History Father No problems noted. Mother Cancer Other Alcoholism Colorectal cancer Social History Smoking Status: Current every day smoker Smoking Status: Current every day smoker alcohol intake frequency: 3 or more drinks per day Alcohol type: hard liquor Substance Use Type: marijuana, heroin, opiates and painkillers Exam Initial Vital Signs Initial Vital Signs: Vital Signs Pulse Rate 81 05/03/22 11:55 Respiratory Rate 18 05/03/22 11:55 Blood Pressure 93/63 05/03/22 11:55 Pulse Oximetry 96 05/03/22 11:55 GENERAL: Alert week 61-year-old male no acute distress HEENT: Head atraumatic,EOMI, pupils reactive, face symmetric, moist mucous membranes CARDIOVASCULAR: Regular rate and rhythm without murmurs, rubs or gallops. RESPIRATORY: Breath sounds equal bilaterally, no wheezes rales or rhonchi. ABDOMEN: Soft, nontender. Normoactive bowel sounds all 4 quadrants. No guarding or rebound. EXTREMITIES: Normal range of motion, no clubbing or edema. Neurovascularly intact NEUROLOGICAL: Alert and oriented x4.Normal gait and speech. Cranial nerves II through XII grossly intact. Good [id number], good uvfe-jy-dkft, strength equal bilaterally, no dysarthria or aphasia, sensation in tact to soft touch bilaterally, no visual changes, no facial droop SKIN: Warm, dry, no laceration, no petechiae, no rashes or lesions. Scores NIH Stroke Scale Level of Conciousness: Alert, keenly responsive Ask month/age: Answers both questions correctly. Open/close eyes, close hand: Performs both tasks correctly Best gaze horizontal: Normal Visual north: No visual loss Facial palsy: Normal symetrical movement Left arm drift: No drift for full 10 sec Right arm drift: No drift for full 10 sec Left leg drift: No drift for full 5 sec Right leg drift: No drift for full 5 sec Limb ataxia: Absent Sensory on face/arms/legs: Normal, no sensory loss Best language: No aphasia, normal Dysarthria: Normal Extinction or inattention: No abnormality Total NIH Stroke scale score: 0 Course Orders Ordered: ED Orders 05/03/22 11:40 BNP [NT-proBNP (BNP-Adult 18+)] Stat Complete Blood Count AUTO DIFF Stat Comprehensive Metabolic Panel Stat D Dimer Stat ETOH [Ethanol (ETOH)] Stat Lipase Stat NT-proBNP (BNP-Adult 18+) Stat Partial Thromboplastin Time Stat Procalcitonin Stat Prothrombin Time INR Stat Troponin & CK Cardiac Panel Stat 05/03/22 12:03 CT head/brain wo con Stat XR chest 1V Stat 05/03/22 12:30 Lactate (Lactic Acid) Stat 05/03/22 13:10 Blood Culture Stat 05/03/22 14:19 Urine Drug Screen, Rapid Stat 05/03/22 14:37 CT angio chest PE protocol Stat CT cervical spine wo con Stat Discontinued Medications Aspirin (Aspirin 81 Mg Chew Tab) 324 mg PO NOW ONE Stop: 05/03/22 12:04 Last Admin: 05/03/22 12:14 Dose: Not Given Documented By: MLM Sodium Chloride (Normal Saline 0.9%) 1,000 mls @ 150 mls/hr IV CONT JYOTI Last Infusion: 05/03/22 14:43 Dose: 0 mls/hr Documented By: Admin: 05/03/22 12:14 Dose: 150 mls/hr Documented By: MLM Sodium Chloride (Normal Saline 0.9%) 1,000 mls @ 1,000 mls/hr IV BOLUS ONE Stop: 05/03/22 15:31 Last Infusion: 05/03/22 15:45 Dose: 0 mls/hr Documented By: Admin: 05/03/22 14:42 Dose: 1,000 mls/hr Documented By: SRINATH Vital Signs Vital signs: Vital Signs - 8 hr 05/03/22 12:04 05/03/22 11:55 05/03/22 11:55 Temperature 98.1 F Pulse Rate 80 81 Respiratory Rate 16 18 Blood Pressure 93/63 93/63 Pulse Oximetry 96 96 Oxygen Delivery Method Room Air 05/03/22 12:00 05/03/22 12:24 05/03/22 12:24 Temperature Pulse Rate 79 77 Respiratory Rate 21 12 Blood Pressure 100/55 L Pulse Oximetry 96 100 Oxygen Delivery Method 05/03/22 12:30 05/03/22 12:30 05/03/22 13:00 Temperature Pulse Rate 78 75 Respiratory Rate 15 24 Blood Pressure 99/57 L Pulse Oximetry 100 96 Oxygen Delivery Method 05/03/22 13:30 05/03/22 14:00 05/03/22 14:30 Temperature Pulse Rate 80 79 73 Respiratory Rate 25 H 20 16 Blood Pressure Pulse Oximetry 98 98 96 Oxygen Delivery Method 05/03/22 14:41 05/03/22 14:41 05/03/22 15:01 Temperature Pulse Rate 80 74 Respiratory Rate 30 H Blood Pressure 136/80 Pulse Oximetry 99 Oxygen Delivery Method 05/03/22 15:03 05/03/22 15:03 05/03/22 15:30 Temperature Pulse Rate 86 Respiratory Rate 20 Blood Pressure 118/72 128/71 Pulse Oximetry 98 Oxygen Delivery Method 05/03/22 15:30 05/03/22 16:00 05/03/22 16:00 Temperature Pulse Rate 80 91 H Respiratory Rate 18 22 Blood Pressure 121/78 Pulse Oximetry 99 97 Oxygen Delivery Method 05/03/22 16:30 Temperature Pulse Rate 80 Respiratory Rate Blood Pressure Pulse Oximetry 98 Oxygen Delivery Method MDM - Syncope Lab Data Result diagrams: 05/03/22 11:40 05/03/22 11:40 Labs: Lab Results 05/03/22 05/03/22 05/03/22 Range/Units 11:40 11:40 11:40 WBC 6.6 (4.5-11.0) X10^3/uL RBC 3.80 L (4.5-5.9) X10^6/uL Hgb 11.3 L (13.5-17.5) g/dL Hct 32.5 L (41-53) % MCV 85.5 (80-100) fL MCH 29.6 (26-34) PG MCHC 34.6 (30-36) % RDW 13.5 (11.6-14.8) % Plt Count 350 (150-400) X10^3/uL Neut % (Auto) 61.1 (50-75) % Lymph % (Auto) 19.3 L (25-40) % [place] % (Auto) 15.7 H (3-14) % Eos % (Auto) 2.6 (2-4) % Baso % (Auto) 1.3 (0-2) % Neut # (Auto) 4000 (3306-3318) /uL Lymph # (Auto) 1300 (4346-9585) /uL [place] # (Auto) 1000 H (0-900) /uL Eos # (Auto) 200 (0-450) /uL Baso # (Auto) 100 (0-100) /uL PT 12.3 (10.1-12.7) SECONDS INR 1.1 (0.9-1.3) APTT 36 (26.4-36.2) SECONDS D-Dimer 801 H (<230) ng/mL Sodium 136 L (137-145) mmol/L Potassium 3.1 L (3.4-5.1) mmol/L Chloride 97 L (98-107) mmol/L Carbon Dioxide 31 (22-32) mmol/L BUN 15 (9-20) mg/dL Creatinine 0.81 (0.66-1.25) mg/dL Estimated GFR > 60 (>60) mL/min BUN/Creatinine Ratio 18.5 (6-22) Glucose 115 H (80-110) mg/dL Lactate (0.7-2.1) mmol/L Calcium 8.8 (8.4-10.2) mg/dL Total Bilirubin 0.4 (0.2-1.3) mg/dL AST 26 (17-59) IU/L ALT 11 (<50) IU/L Alkaline Phosphatase 136 H (38-126) U/L Total Creatine Kinase 53 L (55-170) U/L CK-MB (CK-2) TNP CK-MB (CK-2) Rel Index TNP Troponin I < 0.012 (0.01-0.034) ng/mL NT-Pro-B Natriuret Pep 1340 H (<125) pg/mL Total Protein 7.2 (6.3-8.2) g/dL Albumin 3.5 (3.5-5.0) g/dL Globulin 3.7 (1.7-4.1) g/dL Albumin/Globulin Ratio 0.9 L (1.0-2.8) Lipase 50 (23-300) U/L Procalcitonin 0.14 (<0.5) ng/mL U Opiates 300ng/mL cut (Negative) Ur Oxycodone Screen (Negative) Urine Methadone Screen (Negative) Ur Barbiturates Screen (Negative) U Tricyclic Antidepress (Negative) Ur Phencyclidine Scrn (Negative) Ur Amphetamines Screen (Negative) U Methamphetamines Scrn (Negative) Ur MDMA Scrn (Ecstasy) (Negative) U Benzodiazepines Scrn (Negative) Urine Cocaine Screen (Negative) U Marijuana (THC) Screen (Negative) Ethyl Alcohol ( - 10) mg/dL 05/03/22 05/03/22 05/03/22 Range/Units 11:40 11:40 12:30 WBC (4.5-11.0) X10^3/uL RBC (4.5-5.9) X10^6/uL Hgb (13.5-17.5) g/dL Hct (41-53) % MCV (80-100) fL MCH (26-34) PG MCHC (30-36) % RDW (11.6-14.8) % Plt Count (150-400) X10^3/uL Neut % (Auto) (50-75) % Lymph % (Auto) (25-40) % [place] % (Auto) (3-14) % Eos % (Auto) (2-4) % Baso % (Auto) (0-2) % Neut # (Auto) (7678-5472) /uL Lymph # (Auto) (4531-0066) /uL [place] # (Auto) (0-900) /uL Eos # (Auto) (0-450) /uL Baso # (Auto) (0-100) /uL PT (10.1-12.7) SECONDS INR (0.9-1.3) APTT (26.4-36.2) SECONDS D-Dimer (<230) ng/mL Sodium (137-145) mmol/L Potassium (3.4-5.1) mmol/L Chloride (98-107) mmol/L Carbon Dioxide (22-32) mmol/L BUN (9-20) mg/dL Creatinine (0.66-1.25) mg/dL Estimated GFR (>60) mL/min BUN/Creatinine Ratio (6-22) Glucose (80-110) mg/dL Lactate 1.4 (0.7-2.1) mmol/L Calcium (8.4-10.2) mg/dL Total Bilirubin (0.2-1.3) mg/dL AST (17-59) IU/L ALT (<50) IU/L Alkaline Phosphatase (38-126) U/L Total Creatine Kinase (55-170) U/L CK-MB (CK-2) CK-MB (CK-2) Rel Index Troponin I (0.01-0.034) ng/mL NT-Pro-B Natriuret Pep 1330 H (<125) pg/mL Total Protein (6.3-8.2) g/dL Albumin (3.5-5.0) g/dL Globulin (1.7-4.1) g/dL Albumin/Globulin Ratio (1.0-2.8) Lipase (23-300) U/L Procalcitonin (<0.5) ng/mL U Opiates 300ng/mL cut (Negative) Ur Oxycodone Screen (Negative) Urine Methadone Screen (Negative) Ur Barbiturates Screen (Negative) U Tricyclic Antidepress (Negative) Ur Phencyclidine Scrn (Negative) Ur Amphetamines Screen (Negative) U Methamphetamines Scrn (Negative) Ur MDMA Scrn (Ecstasy) (Negative) U Benzodiazepines Scrn (Negative) Urine Cocaine Screen (Negative) U Marijuana (THC) Screen (Negative) Ethyl Alcohol 11 H ( - 10) mg/dL 05/03/22 Range/Units 14:19 WBC (4.5-11.0) X10^3/uL RBC (4.5-5.9) X10^6/uL Hgb (13.5-17.5) g/dL Hct (41-53) % MCV (80-100) fL MCH (26-34) PG MCHC (30-36) % RDW (11.6-14.8) % Plt Count (150-400) X10^3/uL Neut % (Auto) (50-75) % Lymph % (Auto) (25-40) % [place] % (Auto) (3-14) % Eos % (Auto) (2-4) % Baso % (Auto) (0-2) % Neut # (Auto) (6847-1243) /uL Lymph # (Auto) (7027-6449) /uL [place] # (Auto) (0-900) /uL Eos # (Auto) (0-450) /uL Baso # (Auto) (0-100) /uL PT (10.1-12.7) SECONDS INR (0.9-1.3) APTT (26.4-36.2) SECONDS D-Dimer (<230) ng/mL Sodium (137-145) mmol/L Potassium (3.4-5.1) mmol/L Chloride (98-107) mmol/L Carbon Dioxide (22-32) mmol/L BUN (9-20) mg/dL Creatinine (0.66-1.25) mg/dL Estimated GFR (>60) mL/min BUN/Creatinine Ratio (6-22) Glucose (80-110) mg/dL Lactate (0.7-2.1) mmol/L Calcium (8.4-10.2) mg/dL Total Bilirubin (0.2-1.3) mg/dL AST (17-59) IU/L ALT (<50) IU/L Alkaline Phosphatase (38-126) U/L Total Creatine Kinase (55-170) U/L CK-MB (CK-2) CK-MB (CK-2) Rel Index Troponin I (0.01-0.034) ng/mL NT-Pro-B Natriuret Pep (<125) pg/mL Total Protein (6.3-8.2) g/dL Albumin (3.5-5.0) g/dL Globulin (1.7-4.1) g/dL Albumin/Globulin Ratio (1.0-2.8) Lipase (23-300) U/L Procalcitonin (<0.5) ng/mL U Opiates 300ng/mL cut Negative (Negative) Ur Oxycodone Screen Negative (Negative) Urine Methadone Screen Positive H (Negative) Ur Barbiturates Screen Negative (Negative) U Tricyclic Antidepress Negative (Negative) Ur Phencyclidine Scrn Negative (Negative) Ur Amphetamines Screen Positive H (Negative) U Methamphetamines Scrn Positive H (Negative) Ur MDMA Scrn (Ecstasy) Negative (Negative) U Benzodiazepines Scrn Negative (Negative) Urine Cocaine Screen Negative (Negative) U Marijuana (THC) Screen Positive H (Negative) Ethyl Alcohol ( - 10) mg/dL Imaging Data CT scan - head: Radiologist's Impression: José Miguel MR#: [id number] : 1960 Acct:[id number] Age/Sex: 61 / M Date of Service: 05/03/22 Loc: ED Accession Number: [id number] ?? Procedure: CT head/brain wo con Ordering Provider: Sophia Abreu D.O. PROCEDURE:? CT HEAD/BRAIN WO CON ? INDICATIONS:? Syncope hit head last night ? TECHNIQUE:? Noncontrast 4.5 mm thick angled axial sections acquired from the foramen magnum to the vertex, with coronal and sagittal reformats.? For radiation dose reduction, the following was used:? automated exposure control, adjustment of mA and/or kV according to patient size.? ? COMPARISON:? None. ? FINDINGS:? Image quality:? Excellent.? ? CSF spaces:? Basal cisterns are patent.? No extra-axial fluid collections.? Ventricles are normal in size and shape.? ? Brain:? No midline shift.? No intracranial masses or hemorrhage.? Nicole-white matter interface is normal.? ? Skull and face:? Calvarium and visualized facial bones are intact, without suspicious lesions.? ? Sinuses:? Diffuse torr-vy-nktrfbch paranasal sinus mucosal thickening with a fluid level in the left maxillary sinus. ? IMPRESSION:? No acute intracranial abnormality. ? ? Dictated by: Eduardo Hein M.D. on 05/03/2022 at 12:25 ? ? Chest x-ray: Radiologist's Impression: XRay Report Signed Patient: José Miguel Do MR#: [id number] : 1960 Acct:[id number] Age/Sex: 61 / M Date of Service: 05/03/22 Loc: ED Accession Number: [id number] ?? Procedure: XR chest 1V Ordering Provider: Sophia Abreu D.O. PROCEDURE:? XR CHEST 1V ? INDICATIONS:? syncope ? TECHNIQUE:? One view of the chest was acquired.? ? COMPARISON:? [facility], , XR CHEST 1V, 10/07/2019, 8:26. ? FINDINGS:? ? Surgical changes and devices:? Surgical hardware in visualized lower cervical spine and upper thoracic spine is again seen. ? Lungs and pleura:? Mild pulmonary vascular congestion is noted.? Ill-defined airspace opacity in left lower lung field is seen concerning for left lower lobe infiltrate.? Small patchy infiltrate/atelectasis in right mid and lower lung field is also likely present.? No pleural effusions or pneumothorax.? ? Mediastinum:? Mediastinal contours appear normal.? Heart size is normal.? ? Bones and chest wall:? No suspicious bony lesions.? Overlying soft tissues appear unremarkable.? ? IMPRESSION:? Ill-defined opacities in bilateral lung north more prominent in left lower lobe concerning for small patchy infiltrate/atelectasis.? No pleural effusion or pneumothorax. ? ? Dictated by: Orlando Samano M.D. on 05/03/2022 at 12:41 ?? CT scan - chest: Radiologist's Impression: CT Scan Report Signed Patient: José Miguel Do MR#: [id number] : 1960 Acct:[id number] Age/Sex: 61 / M Date of Service: 05/03/22 Loc: ED Accession Number: [id number] ?? Procedure: CT angio chest PE protocol Ordering Provider: Sophia Abreu D.O. PROCEDURE:? CT ANGIO CHEST PE PROTOCOL ? INDICATIONS:? high dimer with syncope ? TECHNIQUE:? After the administration of intravenous contrast, 2 mm thick sections acquired from the pulmonary apices to the posterior costophrenic angles.? 3-dimensional maximum intensity projection (MIP) coronal and sagittal reformats were then acquired through the thorax.? For radiation dose reduction, the following was used:? automated exposure control, adjustment of mA and/or kV according to patient size.? ? COMPARISON:? [facility], CR, XR CHEST 1V, 05/03/2022, 12:01. ? FINDINGS:? Image quality:? Excellent.? ? Pulmonary arteries:? Pulmonary arteries are normal in size, and demonstrate no intraluminal filling defects to suggest central pulmonary embolism.? ? Lungs and pleura:? Extensive airspace opacities are seen scattered throughout bilateral lung north most prominent involving left lower lobe and left lingular segment near left lung base.? No pleural effusions or pneumothorax.? Central and peripheral airways are patent.? ? Mediastinum:? Heart size is normal, without pericardial effusion.? Enlarged mediastinal and hilar lymph nodes are seen measures up to 1.2 cm in short axis diameter in right paratracheal space, 1.1 cm in short axis diameter in subcarinal space, 1.3 cm in short axis diameter in left hilar region and 1 cm in short axis diameter in right hilar region..? Thoracic aorta is normal in caliber and enhancement.? Esophagus is normal in caliber, without hiatal hernia.? ? Bones and chest wall:? Post fusion changes are noted in lower cervical and upper thoracic spine with beam hardening artifacts.? No acute vertebral body compression fracture.? No suspicious bony lesions.? Bridging osteophyte formation throughout thoracic spine concerning for diffuse idiopathic skeletal hyperostosis.? Thyroid gland is enlarged which may represent thyroid goiter.? No axillary or supraclavicular adenopathy by size criteria.? ? Abdomen:? Visualized upper abdominal solid organs appear normal in the early arterial phase of enhancement.? ? IMPRESSION:? 1. No evidence of pulmonary emboli.? No thoracic aortic aneurysm or gross dissection. 2. Extensive airspace opacities and ground-glass opacities scattered throughout bilateral lung north more prominent in bilateral lower lung north as described above concerning for extensive pulmonary infiltrates.? No pleural effusion or pneumothorax.? Airway is patent. 3.? Enlarged mediastinal and hilar lymph nodes likely represent reactive inflammatory nodes. 4. Incidentally noted of enlarged thyroid gland which may represent thyroid goiter. 5. Post fusion changes in lower cervical and upper thoracic spine.? Flowing bridging osteophyte formation throughout thoracic spine concerning for diffuse idiopathic skeletal hyperostosis (DISH). ? ? Dictated by: Orlando Samano M.D. on 05/03/2022 at 15:14 ? ? CT - cervical spine: Radiologist's Impression: [address] [address] [address] Scan Report Signed Patient: José Miguel Do MR#: [id number] : 1960 Acct:[id number] Age/Sex: 61 / M Date of Service: 05/03/22 Loc: ED Accession Number: [id number] ?? Procedure: CT cervical spine wo con Ordering Provider: Sophia Abreu D.O. PROCEDURE:? CT CERVICAL SPINE WO CON ? INDICATIONS:? syncope with fusion and pain ? TECHNIQUE:? Noncontrast 3 mm thick sections acquired from the skull base to the T4 level.? Sagittal and coronal reformats were then constructed.? For radiation dose reduction, the following was used:? automated exposure control, adjustment of mA and/or kV according to patient size.? ? COMPARISON:? [facility], CT, C-SPINE WITHOUT CONTRAST, 03/12/2016, 14:38. ? FINDINGS:? Since the prior study there has been extensive laminectomy with cervicothoracic fusion by means of posterior stabilizing rods with bilateral pedicle screws at multiple levels.? No findings of hardware loosening or hardware failure.? No apache bone fracture identified.? Alignment is normal without listhesis.? Vertebral body heights maintained.? No suspicious lytic or blastic osseous lesion.? There are extensive degenerative changes. Regional soft tissues demonstrate no acute finding.? ? ? IMPRESSION:? No CT evidence of acute traumatic cervical spine injury. ? Dictated by: Eduardo Hein M.D. on 05/03/2022 at 15:22 ? ? ECG Data Interpretation: Normal sinus rhythm rate 79 VT interval 136 your S 88 QTC 428 PVCs noted MDM Narrative Medical decision making narrative: Patient presented to walk-in clinic or PCP today with cough and hypotension. He does have a history of substance abuse his alcohol level today is negative. Blood pressure has been stable but still remains on the lower side. His BNP is mildly elevated at 1300 but no signs of shortness of breath or hypoxia will give him another L of fluid. Procalcitonin is negative no leukocytosis no sign of sepsis. D-dimer mildly elevated at [address] angio of ruled out any sort of pulmonary embolism but does show some ground-glass opacities, will treat him for pneumonia. Overall he is not septic. Blood pressure improved. He does have polysubstance on board including methamphetamines amphetamines and marijuana and methadone. He is ambulatory in the emergency department have any issue. Discharge Plan Departure Patient Disposition: Home Clinical Impression: Atypical pneumonia Instructions: DI for Atypical Chest Pain Activity Restrictions/Additional Instructions: *You have been diagnosed with atypical pneumonia *What to do: Please make sure you are drinking enough water. *Continue to take medications as directed Doxycycline 100 mg twice a day for 7 days --> SENT TO [facility] *Follow up with your primary care provider in 2-3 days or call [phone] *Return to ER if you should have lightheadedness chest pain passing out fever confusion or any new, worsening or concerning symptoms Prescriptions: New doxycycline hyclate 100 mg capsule 100 mg PO BID Qty: 14 0RF No Action ketorolac 0.4 % drops 1 drp OPHTH QID Qty: 5 0RF amitriptyline 25 mg tablet 25 mg PO BEDTIME Qty: 30 1RF cyclobenzaprine 10 mg tablet 10 mg PO TIDP Qty: 90 5RF gabapentin [Neurontin] 300 mg capsule 300 mg PO Q8H Qty: 90 11RF metoprolol succinate [Toprol XL] 50 mg tablet extended release 24 hr 50 mg PO BID Qty: 60 11RF omeprazole 20 mg capsule,delayed release(DR/EC) 20 mg PO QDAY Qty: 30 11RF indomethacin 50 mg capsule 50 mg PO TIDP PRN (Reason: pain, moderate) Qty: 90 5RF ondansetron 4 mg tablet,disintegrating 4 mg PO TID-QID PRN (Reason: nausea and vomiting) Qty: 10 0RF Referrals: Sanna Zurita DO [Primary Care Provider] - Visit Report Forms: Patient Portal/API
[2022-05-03] MEDS: SODIUM CHLORIDE 0.9% 1,000 ML 150 ML IV (12:14)
[2022-05-03 12:19] LABS: INR 1.1 (0.9-1.3); Prothrombin Time 12.3 SECONDS (10.1-12.7)
[2022-05-03 12:20] LABS: Add Manual Diff / Slide Review NO; Basophils Absolute Auto 100 /uL (0-100); Basophils Percent Auto 1.3 % (0-2); Eosinophils Absolute Auto 200 /uL (0-450); Eosinophils Percent Auto 2.6 % (2-4); Hematocrit 32.5 % (41-53); Hemoglobin 11.3 g/dL (13.5-17.5); Lymphocytes Absolute Auto 1300 /uL (1100-4500); Lymphocytes Percent Auto 19.3 % (25-40); Mean Corpuscular HGB Conc 34.6 % (30-36); Mean Corpuscular Hemoglobin 29.6 PG (26-34); Mean Corpuscular Volume 85.5 fL (80-100); Monocytes Absolute Auto 1000 /uL (0-900); Monocytes Percent Auto 15.7 % (3-14); Neutrophils Absolute Auto 4000 /uL (1500-7000); Neutrophils Percent Auto 61.1 % (50-75); Platelet Count 350 X10^3/uL (150-400); Red Cell Distribution Width 13.5 % (11.6-14.8); White Blood Cell Count 6.6 X10^3/uL (4.5-11.0)
[2022-05-03 12:22] LABS: PTT Partial Thromboplastin Tim 36 SECONDS (26.4-36.2)
[2022-05-03 12:31] LABS: D Dimer 801 ng/mL (<230)
[2022-05-03 12:32] LABS: Alanine Aminotransferase 11 IU/L (<50); Albumin 3.5 g/dL (3.5-5.0); Albumin Globulin Ratio 0.9 (1.0-2.8); Alkaline Phosphatase 136 U/L (38-126); Aspartate Aminotransferase 26 IU/L (17-59); BUN Creatinine Ratio 18.5 (6-22); Bilirubin Total 0.4 mg/dL (0.2-1.3); Blood Urea Nitrogen 15 mg/dL (9-20); Calcium 8.8 mg/dL (8.4-10.2); Carbon Dioxide 31 mmol/L (22-32); Chloride 97 mmol/L (98-107); Creatine Kinase 53 U/L (55-170); Estimated Glomerular Filt Rate > 60 mL/min (>60); Globulin 3.7 g/dL (1.7-4.1); Glucose 115 mg/dL (80-110); HEMOLYSIS < 15 (0-50); Lipase 50 U/L (23-300); Potassium 3.1 mmol/L (3.4-5.1); Sodium 136 mmol/L (137-145); Total Protein 7.2 g/dL (6.3-8.2)
[2022-05-03 12:33] LABS: Ethanol (ETOH) 11 mg/dL
[2022-05-03 12:43] LABS: NT-proBNP (BNP-Adult 18+) 1330 pg/mL (<125)
[2022-05-03 12:44] LABS: NT-proBNP (BNP-Adult 18+) 1340 pg/mL (<125); Troponin I < 0.012 ng/mL (0.01-0.034)
[2022-05-03 12:48] LABS: Procalcitonin 0.14 ng/mL (<0.5)
[2022-05-03 13:12] LABS: Lactate (Lactic Acid) 1.4 mmol/L (0.7-2.1)
[2022-05-03 14:34] LABS: Ur Creatinine Normal (Normal); Ur Specific Gravity Normal (Normal); Urine pH Normal (Normal)
[2022-05-03 14:35] LABS: UR Morphine/Opiate cutoff 300 Negative (Negative); Urine Amphetamines Positive (Negative); Urine Barbiturates Negative (Negative); Urine Benzodiazepines Negative (Negative); Urine Cocaine Negative (Negative); Urine MDMA Negative (Negative); Urine Methadone Positive (Negative); Urine Methamphetamines Positive (Negative); Urine Oxycodone Negative (Negative); Urine Phencyclidine Negative (Negative); Urine Tetrahydrocannabinol Positive (Negative); Urine Tricyclic Antidepressant Negative (Negative)
--- NOTE | 2022-05-03 14:37 | DI.CT.S_ITS ---
PROCEDURE: CT ANGIO CHEST PE PROTOCOL INDICATIONS: high dimer with syncope TECHNIQUE: After the administration of intravenous contrast, 2 mm thick sections acquired from the pulmonary apices to the posterior costophrenic angles. 3-dimensional maximum intensity projection (MIP) coronal and sagittal reformats were then acquired through the thorax. For radiation dose reduction, the following was used: automated exposure control, adjustment of mA and/or kV according to patient size. COMPARISON: [facility], CR, XR CHEST 1V, 05/03/2022, 12:01. FINDINGS: Image quality: Excellent. Pulmonary arteries: Pulmonary arteries are normal in size, and demonstrate no intraluminal filling defects to suggest central pulmonary embolism. Lungs and pleura: Extensive airspace opacities are seen scattered throughout bilateral lung north most prominent involving left lower lobe and left lingular segment near left lung base. No pleural effusions or pneumothorax. Central and peripheral airways are patent. Mediastinum: Heart size is normal, without pericardial effusion. Enlarged mediastinal and hilar lymph nodes are seen measures up to 1.2 cm in short axis diameter in right paratracheal space, 1.1 cm in short axis diameter in subcarinal space, 1.3 cm in short axis diameter in left hilar region and 1 cm in short axis diameter in right hilar region.. Thoracic aorta is normal in caliber and enhancement. Esophagus is normal in caliber, without hiatal hernia. Bones and chest wall: Post fusion changes are noted in lower cervical and upper thoracic spine with beam hardening artifacts. No acute vertebral body compression fracture. No suspicious bony lesions. Bridging osteophyte formation throughout thoracic spine concerning for diffuse idiopathic skeletal hyperostosis. Thyroid gland is enlarged which may represent thyroid goiter. No axillary or supraclavicular adenopathy by size criteria. Abdomen: Visualized upper abdominal solid organs appear normal in the early arterial phase of enhancement. IMPRESSION: 1. No evidence of pulmonary emboli. No thoracic aortic aneurysm or gross dissection. 2. Extensive airspace opacities and ground-glass opacities scattered throughout bilateral lung north more prominent in bilateral lower lung north as described above concerning for extensive pulmonary infiltrates. No pleural effusion or pneumothorax. Airway is patent. 3. Enlarged mediastinal and hilar lymph nodes likely represent reactive inflammatory nodes. 4. Incidentally noted of enlarged thyroid gland which may represent thyroid goiter. 5. Post fusion changes in lower cervical and upper thoracic spine. Flowing bridging osteophyte formation throughout thoracic spine concerning for diffuse idiopathic skeletal hyperostosis (DISH). Dictated by: Orlando Samano M.D. on 05/03/2022 at 15:14 Approved by: Orlando Samano M.D. on 05/03/2022 at 15:30
--- NOTE | 2022-05-03 14:37 | DI.CT.S_ITS ---
PROCEDURE: CT CERVICAL SPINE WO CON INDICATIONS: syncope with fusion and pain TECHNIQUE: Noncontrast 3 mm thick sections acquired from the skull base to the T4 level. Sagittal and coronal reformats were then constructed. For radiation dose reduction, the following was used: automated exposure control, adjustment of mA and/or kV according to patient size. COMPARISON: [facility], CT, C-SPINE WITHOUT CONTRAST, 03/12/2016, 14:38. FINDINGS: Since the prior study there has been extensive laminectomy with cervicothoracic fusion by means of posterior stabilizing rods with bilateral pedicle screws at multiple levels. No findings of hardware loosening or hardware failure. No [place] bone fracture identified. Alignment is normal without listhesis. Vertebral body heights maintained. No suspicious lytic or blastic osseous lesion. There are extensive degenerative changes. Regional soft tissues demonstrate no acute finding. IMPRESSION: No CT evidence of acute traumatic cervical spine injury. Dictated by: Eduardo Hein M.D. on 05/03/2022 at 15:22 Approved by: Eduardo Hein M.D. on 05/03/2022 at 15:25
[2022-05-03] MEDS: SODIUM CHLORIDE 0.9% 1,000 ML 1000 ML IV (14:42)
--- NOTE | 2022-05-03 16:37 | PC.NURSE ---
ambulated without difficulty. states his sneakers are one size too big. Dr. Abreu aware
== END 2022-05-03 17:23 | disposition home or self-care (01) ==
PROVIDERS: Emergency Provider Emergency Medicine; PCP Family Medicine
DX: J18.9 Pneumonia, unspecified organism (principal); R55 Syncope and collapse; I95.9 Hypotension, unspecified; R79.89 Other specified abnormal findings of blood chemistry
CPT/HCPCS: 36415; 70450; 71045; 71275; 72125; 80053; 80305; 80320; 82550; 83605; 83690; 83880; 84145; 84484; 85025; 85379; 85610; 85730; 87040; 93005; 93010; 96360; 96361; 99284; Q9967

== ENCOUNTER → 2022-10-30 15:25 | Outpatient (CLI) | payer MEDICAID, OTHER, SELFPAY ==
--- NOTE | 2022-10-30 | DI.RAD.S_ITS ---
PROCEDURE: XR CHEST 2V INDICATIONS: influenza TECHNIQUE: 2 views of the chest were acquired. COMPARISON: [facility], CR, XR CHEST 1V, 05/03/2022, 12:01. FINDINGS: Surgical changes and devices: Cervical thoracic spine fixation hardware is stable where visualized.. Lungs and pleura: Patchy airspace opacities noted in the lung bases in the right mid lung. No pleural effusions or pneumothorax. Mediastinum: Mediastinal contours are normal. Heart size is normal. Bones and chest wall: No suspicious bony abnormalities. Soft tissues appear unremarkable. IMPRESSION: Bilateral lung patchy airspace opacities concerning for multifocal pneumonia Dictated by: Esperanza Carmona MD, PhD on 10/30/2022 at 16:10 Approved by: Esperanza Carmona MD, PhD on 10/30/2022 at 16:11
== END ==
PROVIDERS: PCP Family Medicine; Referring Provider Physician Assistant; Visit Provider Physician Assistant
DX: J11.1 Influenza due to unidentified influenza virus with other respiratory manifestations (principal)
CPT/HCPCS: 71045

== ENCOUNTER 2022-10-30 15:51 | Inpatient (IN) | payer MEDICAID, OTHER, SELFPAY ==
[2022-10-30] VITALS (15 sets, daily range): BP systolic 163–189; BP diastolic 77–108; PULSE 58–105; RESP 18–20; TEMP 37.2; O2SAT 80–99; BMI 23.0
[2022-10-30 16:33] LABS: Add Manual Diff / Slide Review NO; Basophils Absolute Auto 100 /uL (0-100); Basophils Percent Auto 0.4 % (0-2); Eosinophils Absolute Auto 0 /uL (0-450); Hematocrit 32.3 % (41-53); Hemoglobin 10.9 g/dL (13.5-17.5); Lymphocytes Absolute Auto 700 /uL (1100-4500); Mean Corpuscular HGB Conc 33.9 % (30-36); Mean Corpuscular Hemoglobin 28.5 PG (26-34); Monocytes Absolute Auto 2300 /uL (0-900); Monocytes Percent Auto 9.9 % (3-14); Neutrophils Absolute Auto 20500 /uL (1500-7000); Neutrophils Percent Auto 86.7 % (50-75); Platelet Count 692 X10^3/uL (150-400); Red Blood Cell Count 3.84 X10^6/uL (4.5-5.9); Red Cell Distribution Width 13.9 % (11.6-14.8); White Blood Cell Count 23.7 X10^3/uL (4.5-11.0)
--- NOTE | 2022-10-30 16:37 | ED.ABDPAIN ---
HPI - Abdominal Pain <Angel Logan PA-C - Last Filed: 10/30/22 20:33> General Chief Complaint: Abdominal Pain Stated Complaint: abdominal pain Time Seen by Provider: 10/30/22 16:12 History of Present Illness HPI narrative: 61-year-old male with past medical history hypertension, ankylosing spondylitis, alcohol use disorder presents to the ED with 1 day of acute onset abdominal pain. Patient states that he was diagnosed with the flu last week, went to the clinic today, was sent to the ED for a chest x-ray to rule out pneumonia. Patient states that his abdominal pain acutely started this afternoon after he drank some Pepsi. Patient states he forced himself to vomit, vomited once. Patient denies fever, chills, chest pain, shortness of breath, dysuria, diarrhea. Patient appears to be in severe pain, pointing to the general periumbilical area. Patient states that he did not consume any alcohol today, last alcohol consumption was 3 days ago. Patient denies any other drug use. Related Data Previous Rx's Medication Instructions Recorded ketorolac 0.4 % eye drops 1 drp OPHTH QID #5 mL 06/20/17 indomethacin 50 mg capsule 50 mg PO TIDP PRN pain, moderate 10/13/18 #90 caps amitriptyline 25 mg tablet 25 mg PO BEDTIME #30 tabs 01/07/19 ondansetron 4 mg disintegrating 4 mg PO TID-QID PRN nausea and 02/24/19 tablet vomiting #10 tabs cyclobenzaprine 10 mg tablet 10 mg PO TIDP #90 tabs 11/19/19 gabapentin 300 mg capsule 300 mg PO Q8H #90 caps 11/19/19 (Neurontin) metoprolol succinate 50 mg 50 mg PO BID #60 tabs 11/19/19 tablet,extended release 24 hr (Toprol XL) omeprazole 20 mg capsule,delayed 20 mg PO QDAY #30 caps 11/19/19 release doxycycline hyclate 100 mg capsule 100 mg PO BID #14 caps 05/03/22 Allergies Allergy/AdvReac Type Severity Reaction Status Date / Time No Known Drug Allergies Allergy Verified 05/03/22 12:04 Review of Systems <Angel Logan PA-C - Last Filed: 10/30/22 20:33> Review of Systems ROS Unobtainable: All systems reviewed & are unremarkable except as noted in HPI and below Constitutional Constitutional: Denies chills, Denies fatigue, Denies fever(s), Denies frequent falls, Denies lethargy and Denies weakness Eyes Eyes: Denies change in vision, Denies eye discharge, Denies irritation and Denies loss of vision ENT Ears, Nose, Mouth, and Throat: Denies change in voice, Denies dizziness, Denies neck pain, Denies sore throat and Denies throat swelling Cardiovascular Cardiovascular: Denies chest pain, Denies irregular heart rhythm, Denies lightheadedness, Denies palpitations, Denies dyspnea, Denies dyspnea on exertion and Denies orthopnea Respiratory Respiratory: Denies cough, Denies dyspnea, Denies dyspnea on exertion and Denies wheezing Gastrointestinal Gastrointestinal: Reports abdominal pain, Denies change in bowel habits, Denies diarrhea, Reports nausea and Reports vomiting Genitourinary Genitourinary: Denies hematuria, Denies flank pain, Denies urinary incontinence and Denies urinary urgency Musculoskeletal Musculoskeletal: Denies back pain, Denies muscle weakness, Denies neck pain, Denies numbness and Denies tingling Integumentary/Breasts Skin/Breast: Denies pruritus, Denies erythema, Denies rash and Denies wounds Neurologic Neurologic: Denies behavioral changes, Denies confusion, Denies dizziness, Denies frequent falls, Denies loss of vision, Denies numbness, Denies tingling and Denies weakness Psychiatric Psychiatric: Denies anxiety, Denies behavioral changes, Denies confusion, Denies depression, Denies homicidal ideation and Denies suicidal ideation Endocrine Endocrine: Denies fatigue, Denies flushing and Denies palpitations Hematologic/Lymphatic Hematologic/Lymphatic: Denies easy bruising Allergic/Immunologic Allergic/Immunologic: Denies urticaria, Denies throat swelling and Denies wheezing Patient History <Angel Logan PA-C - Last Filed: 10/30/22 20:33> Medical History Acid reflux Alcohol abuse Ankle pain Ankylosing spondylitis (1985) Ankylosing spondylitis Chronic back pain Foot pain Fracture cervical vertebra-closed GERD (gastroesophageal reflux disease) Hypertension Hypertension Muscle pain Tobacco use disorder, moderate, in early remission Surgical History History of open reduction and internal fixation (ORIF) procedure (2005) History of tonsillectomy Status post colonoscopy (2012) Status post incision and drainage Family History Father No problems noted. Mother Cancer Other Alcoholism Colorectal cancer Social History Smoking Status: Current every day smoker Smoking Status: Current every day smoker tobacco type: cigarettes alcohol intake frequency: 3 or more drinks per day Alcohol type: hard liquor Substance Use Type: marijuana, heroin, opiates and painkillers Exam <Angel Logan PA-C - Last Filed: 10/30/22 20:33> Narrative Exam Narrative: Const General:?cooperative, healthy appearing and comfortable HENMT Head:?normal to inspection Ears:?hearing grossly normal bilaterally Nose:?external nose normal Face and sinus:?normal facial exam and sinuses nontender Mouth:?oral mucosae normal Throat:?posterior oropharynx normal Eyes General:?appearance normal, both eyes and all related structures Neck Neck:?normal visual inspection and no lymphadenopathy noted Resp Effort & Inspection:?normal respiratory effort Auscultation:?clear to auscultation bilaterally Cardio Rate:?regular rate Rhythm:?regular rhythm GI Abdomen is soft, nondistended, diffusely tender to palpation. No CVA tenderness. Neuro General:?patient alert, patient awake and patient oriented x3 Initial Vital Signs Initial Vital Signs: Vital Signs Temperature 98.9 F 10/30/22 15:58 Pulse Rate 102 H 10/30/22 15:58 Respiratory Rate 18 10/30/22 15:58 Blood Pressure 189/108 H 10/30/22 15:58 Pulse Oximetry 99 10/30/22 15:58 Oxygen Delivery Method 10/30/22 15:58 <Claudette Velazquez MD - Last Filed: 10/31/22 18:12> Initial Vital Signs Initial Vital Signs: Vital Signs Temperature 98.9 F 10/30/22 15:58 Pulse Rate 102 H 10/30/22 15:58 Respiratory Rate 18 10/30/22 15:58 Blood Pressure 189/108 H 10/30/22 15:58 Pulse Oximetry 99 10/30/22 15:58 Oxygen Delivery Method 12/06/22 15:58 Course <Angel Logan PA-C - Last Filed: 10/30/22 20:33> Orders Ordered: Acetaminophen (Acetaminophen 325 Mg Tablet) 650 mg PO Q6H PRN PRN Reason: Fever/Mild Pain (1-3) Chlorhexidine Gluconate (Chlorhexidine Gluconate 15 Ml Cup) 15 ml PO Q6HR [facility] Enoxaparin Sodium (Enoxaparin 40 Mg/0.4 Ml Syringe) 40 mg SUBCUT DAILY [facility] Last Admin: 10/31/22 10:12 Dose: 40 mg Documented By: SUREKHA Fentanyl (Fentanyl 100 Mcg/2 Ml Inj) 23 mcg 0.35 mcg/kg (23 mcg) IV Q1HR PRN PRN Reason: Pain, Severe (7-10) Last Admin: 10/31/22 15:03 Dose: 23 mcg Documented By: DOC Folic Acid (Folic Acid 1 Mg Tablet) 1 mg PO DAILY [facility] Last Admin: 10/31/22 09:15 Dose: Not Given Documented By: ALEX Hydromorphone HCl (Hydromorphone 1 Mg Inj) 1 mg IV Q3H PRN PRN Reason: Pain, Moderate (4-6) Last Admin: 10/31/22 03:27 Dose: 1 mg Documented By: ALEM Sodium Chloride (Normal Saline 0.9%) 1,000 mls @ 100 mls/hr IV CONT [facility] Last Admin: 10/31/22 04:45 Dose: 100 mls/hr Documented By: ALEX Thiamine HCl 100 mg/ Sodium (Chloride) 101 mls @ 404 mls/hr IV DAILY [facility] Last Infusion: 10/31/22 10:42 Dose: 0 mls/hr Documented By: Admin: 10/31/22 10:13 Dose: 404 mls/hr Documented By: SUREKHA Piperacillin Sod/Tazobactam (Sod 3.375 gm/ Sodium Chloride) 100 mls @ 25 mls/hr IV Q8H [facility] Last Admin: 10/31/22 13:09 Dose: 25 mls/hr Documented By: DOC Vancomycin HCl (Vancomycin) 1,000 mg in 200 mls @ 200 mls/hr IV Q8H [facility] Sodium Chloride (Normal Saline 0.9%) 500 mls @ 1,000 mls/hr IV BOLUS PRN PRN Reason: Fluid replacement Last Admin: 10/31/22 15:55 Dose: 1,000 mls/hr Documented By: DOC Propofol (Propofol) 1,000 mg in 100 mls @ 1.965 mls/hr IV TITRATE JYOTI; Protocol Last Admin: 10/31/22 15:15 Dose: 5 mcg/kg/min, 1.965 mls/hr Documented By: DOC NOREPINEPHRINE BITARTRATE/D5W (Levophed) 4 mg in 250 mls @ 30 mls/hr IV TITRATE JYOTI; Protocol Fentanyl 1,000 mcg/ Dextrose 250 mls @ 11.463 mls/hr IV TITRATE JYOTI; Protocol Last Admin: 10/31/22 16:01 Dose: 0.7 mcg/kg/hr, 11.463 mls/hr Documented By: DOC Lactated Ringer's (Lactated Ringers) 1,000 mls @ 1,000 mls/hr IV BOLUS ONE Stop: 10/31/22 18:59 Lorazepam (Lorazepam 2 Mg/Ml Inj) 1 mg IV Q6HR PRN PRN Reason: Anxiety Last Admin: 10/31/22 00:56 Dose: 1 mg Documented By: ALEX Lorazepam (Lorazepam 2 Mg/Ml Inj) 0 mg IV CIWAPRN PRN; Protocol PRN Reason: Alcohol Withdrawal/n/V Last Admin: 10/31/22 05:04 Dose: 2 mg Documented By: Admin: 10/31/22 04:36 Dose: 2 mg Documented By: Admin: 10/31/22 03:24 Dose: 2 mg Documented By: Admin: 10/31/22 02:29 Dose: 2 mg Documented By: ALEX Metoclopramide HCl (Metoclopramide 10 Mg/2 Ml Inj) 10 mg IV Q6HR PRN PRN Reason: Nausea And Vomiting Last Admin: 10/30/22 20:34 Dose: 10 mg Documented By: ALEX Metoprolol Tartrate (Metoprolol Tartrate 5 Mg/5 Ml Inj) 5 mg IV Q6H [facility] Last Admin: 10/31/22 13:07 Dose: 5 mg Documented By: DOC Multivitamins (Multivitamin 1 Tablet) 1 tab PO DAILY [facility] Last Admin: 10/31/22 09:15 Dose: Not Given Documented By: ALEX Naloxone HCl (Naloxone 0.4 Mg/Ml Vial) 0.2 mg IV Q2MIN PRN PRN Reason: Opiate Reversal Nicotine (Nicotine 7 Mg Patch) 7 mg TOP DAILY [facility] Last Admin: 10/31/22 10:13 Dose: 7 mg Documented By: SUREKHA Ondansetron HCl (Ondansetron 4 Mg Odt) 4 mg PO NOW PRN PRN Reason: Nausea And Vomiting Ondansetron HCl (Ondansetron 4 Mg/2 Ml Inj) 4 mg IV Q4HR [facility] Last Admin: 10/31/22 17:14 Dose: 4 mg Documented By: Admin: 10/31/22 12:35 Dose: 4 mg Documented By: Admin: 10/31/22 10:35 Dose: 4 mg Documented By: Admin: 10/31/22 06:26 Dose: Not Given Documented By: Admin: 10/31/22 05:05 Dose: 4 mg Documented By: ALEX Ondansetron HCl (Ondansetron 4 Mg/2 Ml Inj) 4 mg IV Q4HR PRN PRN Reason: Nausea And Vomiting Oseltamivir Phosphate (Oseltamivir 30 Mg Capsule) 60 mg PO BID [facility] Last Admin: 10/31/22 10:02 Dose: Not Given Documented By: SUREKHA Pantoprazole Sodium (Pantoprazole 40 Mg Vial) 40 mg IV DAILY [facility] Last Admin: 10/31/22 14:30 Dose: 40 mg Documented By: DOC Phenobarbital (Phenobarbital 65 Mg/Ml Vial) 130 mg IV PRN PRN PRN Reason: Alcohol Withdrawal Last Admin: 10/31/22 11:39 Dose: 130 mg Documented By: Admin: 10/31/22 02:29 Dose: 130 mg Documented By: ALEX Vancomycin HCl (Vancomycin Trough) 1 request [facility] [place] 173 ONE Stop: 11/01/22 17:31 Vancomycin HCl (Vancomycin Peak) 1 request [facility] [place] 1999 ONE Stop: 11/01/22 20:01 Discontinued Medications Chlorhexidine Gluconate (Chlorhexidine Gluconate 15 Ml Cup) 15 ml PO Q6HR [facility] Diazepam (Diazepam 10 Mg/2 Ml Syringe) 10 mg IV NOW ONE Stop: 10/31/22 03:15 Last Admin: 10/31/22 03:24 Dose: 10 mg Documented By: ALEX Hydromorphone HCl (Hydromorphone 1 Mg Inj) 1 mg IV NOW ONE Stop: 10/30/22 17:59 Last Admin: 10/30/22 18:01 Dose: 1 mg Documented By: VICTOR HUGO Hydromorphone HCl (Hydromorphone 1 Mg Inj) 1 mg IV NOW ONE Stop: 10/30/22 19:30 Last Admin: 10/30/22 19:42 Dose: 1 mg Documented By: NASEEM Hydromorphone HCl (Hydromorphone 1 Mg Inj) 1 mg IV Q3H PRN PRN Reason: Pain, Moderate (4-6) Last Admin: 10/30/22 21:57 Dose: 1 mg Documented By: ALEX Hydromorphone HCl (Hydromorphone 1 Mg Inj) 1 mg IV Q1HR PRN PRN Reason: Pain, Moderate (4-6) Last Admin: 10/30/22 23:58 Dose: 1 mg Documented By: ALEX Sodium Chloride (Normal Saline 0.9%) 1,000 mls @ 1,000 mls/hr IV BOLUS ONE Stop: 10/30/22 17:55 Last Infusion: 10/30/22 18:10 Dose: 0 mls/hr Documented By: VICTOR HUGO Admin: 10/30/22 17:13 Dose: 1,000 mls/hr Documented By: ALEM Vancomycin HCl (Vancomycin) 1,000 mg in 200 mls @ 200 mls/hr IV NOW ONE Stop: 10/30/22 19:02 Last Infusion: 10/30/22 21:43 Dose: 0 mls/hr Documented By: Admin: 10/30/22 20:07 Dose: 200 mls/hr Documented By: ALEX Sodium Chloride (Normal Saline 0.9%) 1,000 mls @ 1,000 mls/hr IV BOLUS ONE Stop: 10/30/22 19:05 Last Infusion: 10/30/22 21:30 Dose: 0 mls/hr Documented By: Admin: 10/30/22 18:57 Dose: 1,000 mls/hr Documented By: ALEM Piperacillin Sod/Tazobactam (Sod 4.5 gm/ Sodium Chloride) 100 mls @ 200 mls/hr IV NOW ONE Stop: 10/30/22 18:17 Last Infusion: 10/30/22 19:50 Dose: 0 mls/hr Documented By: Admin: 10/30/22 18:56 Dose: 200 mls/hr Documented By: BT POTASSIUM CHLORIDE IN WATER (Potassium Cl 10 Meq/100 Ml Ruth) 10 meq in 100 mls @ 100 mls/hr IV Q1H [facility] Stop: 10/31/22 00:29 Last Infusion: 10/31/22 01:06 Dose: 0 mls/hr Documented By: Admin: 10/30/22 23:59 Dose: 100 mls/hr Documented By: Infusion: 10/30/22 23:59 Dose: 100 mls/hr Documented By: Admin: 10/30/22 23:06 Dose: 100 mls/hr Documented By: Infusion: 10/30/22 22:49 Dose: 100 mls/hr Documented By: Admin: 10/30/22 21:49 Dose: 100 mls/hr Documented By: Infusion: 10/30/22 21:49 Dose: 100 mls/hr Documented By: Admin: 10/30/22 20:54 Dose: 100 mls/hr Documented By: ALEX Ceftriaxone Sodium 2,000 mg/ (Sodium Chloride) 100 mls @ 200 mls/hr IV NOW ONE Stop: 10/31/22 01:14 Last Infusion: 10/31/22 05:05 Dose: 0 mls/hr Documented By: Admin: 10/31/22 04:35 Dose: 200 mls/hr Documented By: ALEX Ceftriaxone Sodium 1,000 mg/ (Sodium Chloride) 100 mls @ 200 mls/hr IV Q24H [facility] Linezolid (Zyvox) 600 mg in 300 mls @ 600 mls/hr IV Q12H [facility] Last Infusion: 10/31/22 05:54 Dose: 0 mls/hr Documented By: Admin: 10/31/22 05:09 Dose: 600 mls/hr Documented By: ALEX Magnesium Sulfate (Magnesium Sulfate) 2 gm in 50 mls @ 25 mls/hr IV NOW ONE Stop: 10/31/22 14:17 Last Admin: 10/31/22 12:36 Dose: 25 mls/hr Documented By: DOC Co-signed By: WENDI POTASSIUM CHLORIDE IN WATER (Potassium Cl 10 Meq/100 Ml Ruth) 10 meq in 100 mls @ 100 mls/hr IV Q1H [facility] Stop: 10/31/22 16:29 Last Admin: 10/31/22 17:09 Dose: 100 mls/hr Documented By: Infusion: 10/31/22 16:44 Dose: 100 mls/hr Documented By: Admin: 10/31/22 15:44 Dose: 100 mls/hr Documented By: Infusion: 10/31/22 13:36 Dose: 100 mls/hr Documented By: Admin: 10/31/22 12:36 Dose: 100 mls/hr Documented By: DOC Metoprolol Succinate (Metoprolol Er 50 Mg Tablet) 50 mg PO NOW ONE Stop: 10/30/22 20:23 Last Admin: 10/31/22 02:16 Dose: Not Given Documented By: ALEX Metoprolol Tartrate (Metoprolol Tartrate 5 Mg/5 Ml Inj) 5 mg IV Q15M PRN PRN Reason: Hypertension Stop: 10/31/22 02:01 Morphine Sulfate (Morphine 4 Mg/Ml Inj) 4 mg IV NOW ONE Stop: 10/30/22 16:57 Last Admin: 10/30/22 17:14 Dose: 4 mg Documented By: ALEM Ondansetron HCl (Ondansetron 4 Mg/2 Ml Inj) 4 mg IV NOW PRN PRN Reason: Nausea And Vomiting Last Admin: 10/30/22 17:14 Dose: 4 mg Documented By: ALEM Phenobarbital (Phenobarbital 65 Mg/Ml Vial) 130 mg IV NOW ONE Stop: 10/31/22 00:25 Last Admin: 10/31/22 01:06 Dose: 130 mg Documented By: ALEX Potassium Chloride (Potassium Chloride 20 Meq/15 Ml Udc) 40 meq PO NOW ONE Stop: 10/30/22 20:18 Last Admin: 10/30/22 21:42 Dose: Not Given Documented By: ALEX Rocuronium [place] (Rocuronium 50 Mg/5 Ml Inj) 60 mg IV NOW ONE Stop: 10/31/22 15:47 Last Admin: 10/31/22 14:36 Dose: 60 mg Documented By: DOC Thiamine HCl (Thiamine 100 Mg Tablet) 100 mg PO DAILY [facility] Stop: 11/03/22 09:01 Last Admin: 10/31/22 09:16 Dose: Not Given Documented By: ALEX Vital Signs Vital signs: Vital Signs - 8 hr 10/30/22 15:58 10/30/22 16:16 10/30/22 18:16 Temperature 98.9 F Pulse Rate 102 H 95 H 58 L Respiratory Rate 18 Blood Pressure 189/108 H 179/84 H Pulse Oximetry 99 97 98 Oxygen Delivery Method Room Air Room Air 10/30/22 18:30 10/30/22 18:30 10/30/22 19:00 Temperature Pulse Rate 62 62 Respiratory Rate Blood Pressure 163/79 H Pulse Oximetry 98 97 Oxygen Delivery Method 10/30/22 19:30 10/30/22 19:30 10/30/22 20:00 Temperature Pulse Rate 68 Respiratory Rate 20 Blood Pressure 165/80 H 165/77 H Pulse Oximetry 98 Oxygen Delivery Method 10/30/22 20:00 Temperature Pulse Rate 63 Respiratory Rate Blood Pressure Pulse Oximetry 98 Oxygen Delivery Method <Claudette Velazquez MD - Last Filed: 10/31/22 18:12> Orders Ordered: Acetaminophen (Acetaminophen 325 Mg Tablet) 650 mg PO Q6H PRN PRN Reason: Fever/Mild Pain (1-3) Chlorhexidine Gluconate (Chlorhexidine Gluconate 15 Ml Cup) 15 ml PO Q6HR [facility] Enoxaparin Sodium (Enoxaparin 40 Mg/0.4 Ml Syringe) 40 mg SUBCUT DAILY [facility] Last Admin: 10/31/22 10:12 Dose: 40 mg Documented By: SUREKHA Fentanyl (Fentanyl 100 Mcg/2 Ml Inj) 23 mcg 0.35 mcg/kg (23 mcg) IV Q1HR PRN PRN Reason: Pain, Severe (7-10) Last Admin: 10/31/22 15:03 Dose: 23 mcg Documented By: DOC Folic Acid (Folic Acid 1 Mg Tablet) 1 mg PO DAILY [facility] Last Admin: 10/31/22 09:15 Dose: Not Given Documented By: ALEX Hydromorphone HCl (Hydromorphone 1 Mg Inj) 1 mg IV Q3H PRN PRN Reason: Pain, Moderate (4-6) Last Admin: 10/31/22 03:27 Dose: 1 mg Documented By: ALEM Sodium Chloride (Normal Saline 0.9%) 1,000 mls @ 100 mls/hr IV CONT [facility] Last Admin: 10/31/22 04:45 Dose: 100 mls/hr Documented By: ALEX Thiamine HCl 100 mg/ Sodium (Chloride) 101 mls @ 404 mls/hr IV DAILY [facility] Last Infusion: 10/31/22 10:42 Dose: 0 mls/hr Documented By: Admin: 10/31/22 10:13 Dose: 404 mls/hr Documented By: NR Piperacillin Sod/Tazobactam (Sod 3.375 gm/ Sodium Chloride) 100 mls @ 25 mls/hr IV Q8H [facility] Last Admin: 10/31/22 13:09 Dose: 25 mls/hr Documented By: DOC Vancomycin HCl (Vancomycin) 1,000 mg in 200 mls @ 200 mls/hr IV Q8H [facility] Sodium Chloride (Normal Saline 0.9%) 500 mls @ 1,000 mls/hr IV BOLUS PRN PRN Reason: Fluid replacement Last Admin: 10/31/22 15:55 Dose: 1,000 mls/hr Documented By: DOC Propofol (Propofol) 1,000 mg in 100 mls @ 1.965 mls/hr IV TITRATE JYOTI; Protocol Last Admin: 10/31/22 15:15 Dose: 5 mcg/kg/min, 1.965 mls/hr Documented By: DOC NOREPINEPHRINE BITARTRATE/D5W (Levophed) 4 mg in 250 mls @ 30 mls/hr IV TITRATE JYOTI; Protocol Fentanyl 1,000 mcg/ Dextrose 250 mls @ 11.463 mls/hr IV TITRATE JYOTI; Protocol Last Admin: 10/31/22 16:01 Dose: 0.7 mcg/kg/hr, 11.463 mls/hr Documented By: DOC Lactated Ringer's (Lactated Ringers) 1,000 mls @ 1,000 mls/hr IV BOLUS ONE Stop: 10/31/22 18:59 Lorazepam (Lorazepam 2 Mg/Ml Inj) 1 mg IV Q6HR PRN PRN Reason: Anxiety Last Admin: 10/31/22 00:56 Dose: 1 mg Documented By: ALEX Lorazepam (Lorazepam 2 Mg/Ml Inj) 0 mg IV CIWAPRN PRN; Protocol PRN Reason: Alcohol Withdrawal/n/V Last Admin: 10/31/22 05:04 Dose: 2 mg Documented By: Admin: 10/31/22 04:36 Dose: 2 mg Documented By: Admin: 10/31/22 03:24 Dose: 2 mg Documented By: Admin: 10/31/22 02:29 Dose: 2 mg Documented By: ALEX Metoclopramide HCl (Metoclopramide 10 Mg/2 Ml Inj) 10 mg IV Q6HR PRN PRN Reason: Nausea And Vomiting Last Admin: 10/30/22 20:34 Dose: 10 mg Documented By: ALEX Metoprolol Tartrate (Metoprolol Tartrate 5 Mg/5 Ml Inj) 5 mg IV Q6H [facility] Last Admin: 10/31/22 13:07 Dose: 5 mg Documented By: DOC Multivitamins (Multivitamin 1 Tablet) 1 tab PO DAILY [facility] Last Admin: 10/31/22 09:15 Dose: Not Given Documented By: ALEX Naloxone HCl (Naloxone 0.4 Mg/Ml Vial) 0.2 mg IV Q2MIN PRN PRN Reason: Opiate Reversal Nicotine (Nicotine 7 Mg Patch) 7 mg TOP DAILY [facility] Last Admin: 10/31/22 10:13 Dose: 7 mg Documented By: SUREKHA Ondansetron HCl (Ondansetron 4 Mg Odt) 4 mg PO NOW PRN PRN Reason: Nausea And Vomiting Ondansetron HCl (Ondansetron 4 Mg/2 Ml Inj) 4 mg IV Q4HR [facility] Last Admin: 10/31/22 17:14 Dose: 4 mg Documented By: Admin: 10/31/22 12:35 Dose: 4 mg Documented By: Admin: 10/31/22 10:35 Dose: 4 mg Documented By: Admin: 10/31/22 06:26 Dose: Not Given Documented By: Admin: 10/31/22 05:05 Dose: 4 mg Documented By: ALEX Ondansetron HCl (Ondansetron 4 Mg/2 Ml Inj) 4 mg IV Q4HR PRN PRN Reason: Nausea And Vomiting Oseltamivir Phosphate (Oseltamivir 30 Mg Capsule) 60 mg PO BID [facility] Last Admin: 10/31/22 10:02 Dose: Not Given Documented By: SUREKHA Pantoprazole Sodium (Pantoprazole 40 Mg Vial) 40 mg IV DAILY [facility] Last Admin: 10/31/22 14:30 Dose: 40 mg Documented By: DOC Phenobarbital (Phenobarbital 65 Mg/Ml Vial) 130 mg IV PRN PRN PRN Reason: Alcohol Withdrawal Last Admin: 10/31/22 11:39 Dose: 130 mg Documented By: Admin: 10/31/22 02:29 Dose: 130 mg Documented By: ALEX Vancomycin HCl (Vancomycin Trough) 1 request [facility] [place] 1729 ONE Stop: 11/01/22 17:31 Vancomycin HCl (Vancomycin Peak) 1 request [facility] [place] 1999 ONE Stop: 11/01/22 20:01 Discontinued Medications Chlorhexidine Gluconate (Chlorhexidine Gluconate 15 Ml Cup) 15 ml PO Q6HR [facility] Diazepam (Diazepam 10 Mg/2 Ml Syringe) 10 mg IV NOW ONE Stop: 10/31/22 03:15 Last Admin: 10/31/22 03:24 Dose: 10 mg Documented By: ALEX Hydromorphone HCl (Hydromorphone 1 Mg Inj) 1 mg IV NOW ONE Stop: 10/30/22 17:59 Last Admin: 10/30/22 18:01 Dose: 1 mg Documented By: VICTOR HUGO Hydromorphone HCl (Hydromorphone 1 Mg Inj) 1 mg IV NOW ONE Stop: 10/30/22 19:30 Last Admin: 10/30/22 19:42 Dose: 1 mg Documented By: NASEEM Hydromorphone HCl (Hydromorphone 1 Mg Inj) 1 mg IV Q3H PRN PRN Reason: Pain, Moderate (4-6) Last Admin: 10/30/22 21:57 Dose: 1 mg Documented By: ALEX Hydromorphone HCl (Hydromorphone 1 Mg Inj) 1 mg IV Q1HR PRN PRN Reason: Pain, Moderate (4-6) Last Admin: 10/30/22 23:58 Dose: 1 mg Documented By: ALEX Sodium Chloride (Normal Saline 0.9%) 1,000 mls @ 1,000 mls/hr IV BOLUS ONE Stop: 10/30/22 17:55 Last Infusion: 10/30/22 18:10 Dose: 0 mls/hr Documented By: VICTOR HUGO Admin: 10/30/22 17:13 Dose: 1,000 mls/hr Documented By: ALEM Vancomycin HCl (Vancomycin) 1,000 mg in 200 mls @ 200 mls/hr IV NOW ONE Stop: 10/30/22 19:02 Last Infusion: 10/30/22 21:43 Dose: 0 mls/hr Documented By: Admin: 10/30/22 20:07 Dose: 200 mls/hr Documented By: ALEX Sodium Chloride (Normal Saline 0.9%) 1,000 mls @ 1,000 mls/hr IV BOLUS ONE Stop: 10/30/22 19:05 Last Infusion: 10/30/22 21:30 Dose: 0 mls/hr Documented By: Admin: 10/30/22 18:57 Dose: 1,000 mls/hr Documented By: ALEM Piperacillin Sod/Tazobactam (Sod 4.5 gm/ Sodium Chloride) 100 mls @ 200 mls/hr IV NOW ONE Stop: 10/30/22 18:17 Last Infusion: 10/30/22 19:50 Dose: 0 mls/hr Documented By: Admin: 10/30/22 18:56 Dose: 200 mls/hr Documented By: ALEM POTASSIUM CHLORIDE IN WATER (Potassium Cl 10 Meq/100 Ml Ruth) 10 meq in 100 mls @ 100 mls/hr IV Q1H JYOTI Stop: 10/31/22 00:29 Last Infusion: 10/31/22 01:06 Dose: 0 mls/hr Documented By: Admin: 10/30/22 23:59 Dose: 100 mls/hr Documented By: Infusion: 10/30/22 23:59 Dose: 100 mls/hr Documented By: Admin: 10/30/22 23:06 Dose: 100 mls/hr Documented By: Infusion: 10/30/22 22:49 Dose: 100 mls/hr Documented By: Admin: 10/30/22 21:49 Dose: 100 mls/hr Documented By: Infusion: 10/30/22 21:49 Dose: 100 mls/hr Documented By: Admin: 10/30/22 20:54 Dose: 100 mls/hr Documented By: ALEX Ceftriaxone Sodium 2,000 mg/ (Sodium Chloride) 100 mls @ 200 mls/hr IV NOW ONE Stop: 10/31/22 01:14 Last Infusion: 10/31/22 05:05 Dose: 0 mls/hr Documented By: Admin: 10/31/22 04:35 Dose: 200 mls/hr Documented By: ALEX Ceftriaxone Sodium 1,000 mg/ (Sodium Chloride) 100 mls @ 200 mls/hr IV Q24H [facility] [facility] Linezolid (Zyvox) 600 mg in 300 mls @ 600 mls/hr IV Q12H [facility] Last Infusion: 10/31/22 05:54 Dose: 0 mls/hr Documented By: Admin: 10/31/22 05:09 Dose: 600 mls/hr Documented By: ALEX Magnesium Sulfate (Magnesium Sulfate) 2 gm in 50 mls @ 25 mls/hr IV NOW ONE Stop: 10/31/22 14:17 Last Admin: 10/31/22 12:36 Dose: 25 mls/hr Documented By: DOC Co-signed By: WENDI POTASSIUM CHLORIDE IN WATER (Potassium Cl 10 Meq/100 Ml Ruth) 10 meq in 100 mls @ 100 mls/hr IV Q1H JYOTI Stop: 10/31/22 16:29 Last Admin: 10/31/22 17:09 Dose: 100 mls/hr Documented By: Infusion: 10/31/22 16:44 Dose: 100 mls/hr Documented By: Admin: 10/31/22 15:44 Dose: 100 mls/hr Documented By: Infusion: 10/31/22 13:36 Dose: 100 mls/hr Documented By: Admin: 10/31/22 12:36 Dose: 100 mls/hr Documented By: DOC Metoprolol Succinate (Metoprolol Er 50 Mg Tablet) 50 mg PO NOW ONE Stop: 10/30/22 20:23 Last Admin: 10/31/22 02:16 Dose: Not Given Documented By: ALEX Metoprolol Tartrate (Metoprolol Tartrate 5 Mg/5 Ml Inj) 5 mg IV Q15M PRN PRN Reason: Hypertension Stop: 10/31/22 02:01 Morphine Sulfate (Morphine 4 Mg/Ml Inj) 4 mg IV NOW ONE Stop: 10/30/22 16:57 Last Admin: 10/30/22 17:14 Dose: 4 mg Documented By: ALEM Ondansetron HCl (Ondansetron 4 Mg/2 Ml Inj) 4 mg IV NOW PRN PRN Reason: Nausea And Vomiting Last Admin: 10/30/22 17:14 Dose: 4 mg Documented By: ALEM Phenobarbital (Phenobarbital 65 Mg/Ml Vial) 130 mg IV NOW ONE Stop: 10/31/22 00:25 Last Admin: 10/31/22 01:06 Dose: 130 mg Documented By: ALEX Potassium Chloride (Potassium Chloride 20 Meq/15 Ml Udc) 40 meq PO NOW ONE Stop: 10/30/22 20:18 Last Admin: 10/30/22 21:42 Dose: Not Given Documented By: ALEX Rocuronium [place] (Rocuronium 50 Mg/5 Ml Inj) 60 mg IV NOW ONE Stop: 10/31/22 15:47 Last Admin: 10/31/22 14:36 Dose: 60 mg Documented By: DOC Thiamine HCl (Thiamine 100 Mg Tablet) 100 mg PO DAILY JYOTI Stop: 11/03/22 09:01 Last Admin: 10/31/22 09:16 Dose: Not Given Documented By: ALEX Vital Signs Vital signs: Vital Signs - 8 hr 10/30/22 15:58 10/30/22 16:16 10/30/22 18:16 Temperature 98.9 F Pulse Rate 102 H 95 H 58 L Respiratory Rate 18 Blood Pressure 189/108 H 179/84 H Pulse Oximetry 99 97 98 Oxygen Delivery Method Room Air Room Air 10/30/22 18:30 10/30/22 18:30 10/30/22 19:00 Temperature Pulse Rate 62 62 Respiratory Rate Blood Pressure 163/79 H Pulse Oximetry 98 97 Oxygen Delivery Method 10/30/22 19:30 10/30/22 19:30 10/30/22 20:00 Temperature Pulse Rate 68 Respiratory Rate 20 Blood Pressure 165/80 H 165/77 H Pulse Oximetry 98 Oxygen Delivery Method 10/30/22 20:00 Temperature Pulse Rate 63 Respiratory Rate Blood Pressure Pulse Oximetry 98 Oxygen Delivery Method MDM - Abdominal Pain <Hyma YULIANA oLgan - Last Filed: 10/30/22 20:33> Lab Data Result diagrams: 10/31/22 15:15 10/31/22 15:15 Labs: Lab Results 10/30/22 10/30/22 10/30/22 Range/Units 16:10 16:10 16:10 WBC 23.7 H (4.5-11.0) X10^3/uL RBC 3.84 L (4.5-5.9) X10^6/uL Hgb 10.9 L (13.5-17.5) g/dL Hct 32.3 L (41-53) % MCV 84.0 (80-100) fL MCH 28.5 (26-34) PG MCHC 33.9 (30-36) % RDW 13.9 (11.6-14.8) % Plt Count 692 H (150-400) X10^3/uL Neut % (Auto) 86.7 H (50-75) % Lymph % (Auto) 3.0 L (25-40) % Valley % (Auto) 9.9 (3-14) % Eos % (Auto) 0.0 L (2-4) % Baso % (Auto) 0.4 (0-2) % Neut # (Auto) 30865 H (1552-4451) /uL Lymph # (Auto) 700 L (6523-9992) /uL [place] # (Auto) 2300 H (0-900) /uL Eos # (Auto) 0 (0-450) /uL Baso # (Auto) 100 (0-100) /uL PT (10.1-12.7) SECONDS INR (0.9-1.3) APTT (26-36) SECONDS VBG pH (7.33-7.43) VBG pCO2 (45-50) mmHg VBG HCO3 (23-28) mmol/L VBG Total CO2 (24-29) mmol/L VBG Base Excess (0-4) mmol/L Sodium 129 L (137-145) mmol/L Potassium 2.8 L (3.4-5.1) mmol/L Chloride 86 L (98-107) mmol/L Carbon Dioxide 30 (22-32) mmol/L BUN 9 (9-20) mg/dL Creatinine 0.54 L (0.66-1.25) mg/dL Estimated GFR > 60 (>60) mL/min BUN/Creatinine Ratio 16.7 (6-22) Glucose 257 H (80-110) mg/dL Hemoglobin A1c (4.0-6.0) % Lactate 3.9 H (0.7-2.1) mmol/L Calcium 8.9 (8.4-10.2) mg/dL Magnesium (1.6-2.3) mg/dL Total Bilirubin 0.5 (0.2-1.3) mg/dL AST 19 (17-59) IU/L ALT 16 (<50) IU/L Alkaline Phosphatase 187 H (38-126) U/L Total Protein 7.7 (6.3-8.2) g/dL Albumin 3.3 L (3.5-5.0) g/dL Globulin 4.4 H (1.7-4.1) g/dL Albumin/Globulin Ratio 0.8 L (1.0-2.8) Lipase 16 L (23-300) U/L Urine Color Urine Appearance Urine pH (4.5-8.0) Ur Specific [place] (1.000-1.035) Urine Protein (Negative) Urine Glucose (UA) (Negative) g/dL Urine Ketones (NEGATIVE) Urine Occult Blood (Negative) Urine Nitrate (Negative) Urine Bilirubin (NEGATIVE) Urine Urobilinogen (0.2) E.U./dL Ur Leukocyte Esterase (NEGATIVE) Urine RBC (0-5/HPF) Urine WBC (0-5/HPF) Ur Squamous Epith Cells (0-5/HPF) Urine Bacteria (None) Ur Culture Indicated? SARS-CoV-2 (PCR) (Negative) Influenza A (RT-PCR) (NEGATIVE) Influenza B (RT-PCR) (NEGATIVE) RSV (PCR) (Negative) 10/30/22 10/30/22 10/30/22 Range/Units 16:10 16:10 16:10 WBC (4.5-11.0) X10^3/uL RBC (4.5-5.9) X10^6/uL Hgb (13.5-17.5) g/dL Hct (41-53) % MCV (80-100) fL MCH (26-34) PG MCHC (30-36) % RDW (11.6-14.8) % Plt Count (150-400) X10^3/uL Neut % (Auto) (50-75) % Lymph % (Auto) (25-40) % [place] % (Auto) (3-14) % Eos % (Auto) (2-4) % Baso % (Auto) (0-2) % Neut # (Auto) (3753-9412) /uL Lymph # (Auto) (0780-5023) /uL [place] # (Auto) (0-900) /uL Eos # (Auto) (0-450) /uL Baso # (Auto) (0-100) /uL PT 15.5 H (10.1-12.7) SECONDS INR 1.3 (0.9-1.3) APTT 43 H (26-36) SECONDS VBG pH (7.33-7.43) VBG pCO2 (45-50) mmHg VBG HCO3 (23-28) mmol/L VBG Total CO2 (24-29) mmol/L VBG Base Excess (0-4) mmol/L Sodium (137-145) mmol/L Potassium (3.4-5.1) mmol/L Chloride (98-107) mmol/L Carbon Dioxide (22-32) mmol/L BUN (9-20) mg/dL Creatinine (0.66-1.25) mg/dL Estimated GFR (>60) mL/min BUN/Creatinine Ratio (6-22) Glucose (80-110) mg/dL Hemoglobin A1c 5.8 (4.0-6.0) % Lactate (0.7-2.1) mmol/L Calcium (8.4-10.2) mg/dL Magnesium 1.3 L (1.6-2.3) mg/dL Total Bilirubin (0.2-1.3) mg/dL AST (17-59) IU/L ALT (<50) IU/L Alkaline Phosphatase (38-126) U/L Total Protein (6.3-8.2) g/dL Albumin (3.5-5.0) g/dL Globulin (1.7-4.1) g/dL Albumin/Globulin Ratio (1.0-2.8) Lipase (23-300) U/L Urine Color Urine Appearance Urine pH (4.5-8.0) Ur Specific [place] (1.000-1.035) Urine Protein (Negative) Urine Glucose (UA) (Negative) g/dL Urine Ketones (NEGATIVE) Urine Occult Blood (Negative) Urine Nitrate (Negative) Urine Bilirubin (NEGATIVE) Urine Urobilinogen (0.2) E.U./dL Ur Leukocyte Esterase (NEGATIVE) Urine RBC (0-5/HPF) Urine WBC (0-5/HPF) Ur Squamous Epith Cells (0-5/HPF) Urine Bacteria (None) Ur Culture Indicated? SARS-CoV-2 (PCR) (Negative) Influenza A (RT-PCR) (NEGATIVE) Influenza B (RT-PCR) (NEGATIVE) RSV (PCR) (Negative) 10/30/22 10/30/22 10/30/22 Range/Units 16:20 17:51 18:36 WBC (4.5-11.0) X10^3/uL RBC (4.5-5.9) X10^6/uL Hgb (13.5-17.5) g/dL Hct (41-53) % MCV (80-100) fL MCH (26-34) PG MCHC (30-36) % RDW (11.6-14.8) % Plt Count (150-400) X10^3/uL Neut % (Auto) (50-75) % Lymph % (Auto) (25-40) % [place] % (Auto) (3-14) % Eos % (Auto) (2-4) % Baso % (Auto) (0-2) % Neut # (Auto) (2755-6855) /uL Lymph # (Auto) (2702-1117) /uL [place] # (Auto) (0-900) /uL Eos # (Auto) (0-450) /uL Baso # (Auto) (0-100) /uL PT (10.1-12.7) SECONDS INR (0.9-1.3) APTT (26-36) SECONDS VBG pH 7.36 (7.33-7.43) VBG pCO2 46.6 (45-50) mmHg VBG HCO3 26 (23-28) mmol/L VBG Total CO2 28 (24-29) mmol/L VBG Base Excess 1.0 (0-4) mmol/L Sodium (137-145) mmol/L Potassium (3.4-5.1) mmol/L Chloride (98-107) mmol/L Carbon Dioxide (22-32) mmol/L BUN (9-20) mg/dL Creatinine (0.66-1.25) mg/dL Estimated GFR (>60) mL/min BUN/Creatinine Ratio (6-22) Glucose (80-110) mg/dL Hemoglobin A1c (4.0-6.0) % Lactate (0.7-2.1) mmol/L Calcium (8.4-10.2) mg/dL Magnesium (1.6-2.3) mg/dL Total Bilirubin (0.2-1.3) mg/dL AST (17-59) IU/L ALT (<50) IU/L Alkaline Phosphatase (38-126) U/L Total Protein (6.3-8.2) g/dL Albumin (3.5-5.0) g/dL Globulin (1.7-4.1) g/dL Albumin/Globulin Ratio (1.0-2.8) Lipase (23-300) U/L Urine Color Yellow Urine Appearance Clear Urine pH 5.5 (4.5-8.0) Ur Specific [place] 1.015 (1.000-1.035) Urine Protein 1+ H (Negative) Urine Glucose (UA) 1+ H (Negative) g/dL Urine Ketones Trace H (NEGATIVE) Urine Occult Blood 3+ H (Negative) Urine Nitrate Negative (Negative) Urine Bilirubin Negative (NEGATIVE) Urine Urobilinogen 0.2 (0.2) E.U./dL Ur Leukocyte Esterase Negative (NEGATIVE) Urine RBC 1-5/hpf (0-5/HPF) Urine WBC 1-5/hpf (0-5/HPF) Ur Squamous Epith Cells 0-1 /hpf (0-5/HPF) Urine Bacteria Occasional (0-1) (None) Ur Culture Indicated? Cult not indicated SARS-CoV-2 (PCR) Negative (Negative) Influenza A (RT-PCR) Flu a positive H (NEGATIVE) Influenza B (RT-PCR) Flu b negative (NEGATIVE) RSV (PCR) Negative (Negative) 10/30/22 Range/Units 19:25 WBC (4.5-11.0) X10^3/uL RBC (4.5-5.9) X10^6/uL Hgb (13.5-17.5) g/dL Hct (41-53) % MCV (80-100) fL MCH (26-34) PG MCHC (30-36) % RDW (11.6-14.8) % Plt Count (150-400) X10^3/uL Neut % (Auto) (50-75) % Lymph % (Auto) (25-40) % [place] % (Auto) (3-14) % Eos % (Auto) (2-4) % Baso % (Auto) (0-2) % Neut # (Auto) (9468-8304) /uL Lymph # (Auto) (6951-3055) /uL [place] # (Auto) (0-900) /uL Eos # (Auto) (0-450) /uL Baso # (Auto) (0-100) /uL PT (10.1-12.7) SECONDS INR (0.9-1.3) APTT (26-36) SECONDS VBG pH (7.33-7.43) VBG pCO2 (45-50) mmHg VBG HCO3 (23-28) mmol/L VBG Total CO2 (24-29) mmol/L VBG Base Excess (0-4) mmol/L Sodium (137-145) mmol/L Potassium (3.4-5.1) mmol/L Chloride (98-107) mmol/L Carbon Dioxide (22-32) mmol/L BUN (9-20) mg/dL Creatinine (0.66-1.25) mg/dL Estimated GFR (>60) mL/min BUN/Creatinine Ratio (6-22) Glucose (80-110) mg/dL Hemoglobin A1c (4.0-6.0) % Lactate 5.0 H* (0.7-2.1) mmol/L Calcium (8.4-10.2) mg/dL Magnesium (1.6-2.3) mg/dL Total Bilirubin (0.2-1.3) mg/dL AST (17-59) IU/L ALT (<50) IU/L Alkaline Phosphatase (38-126) U/L Total Protein (6.3-8.2) g/dL Albumin (3.5-5.0) g/dL Globulin (1.7-4.1) g/dL Albumin/Globulin Ratio (1.0-2.8) Lipase (23-300) U/L Urine Color Urine Appearance Urine pH (4.5-8.0) Ur Specific [place] (1.000-1.035) Urine Protein (Negative) Urine Glucose (UA) (Negative) g/dL Urine Ketones (NEGATIVE) Urine Occult Blood (Negative) Urine Nitrate (Negative) Urine Bilirubin (NEGATIVE) Urine Urobilinogen (0.2) E.U./dL Ur Leukocyte Esterase (NEGATIVE) Urine RBC (0-5/HPF) Urine WBC (0-5/HPF) Ur Squamous Epith Cells (0-5/HPF) Urine Bacteria (None) Ur Culture Indicated? SARS-CoV-2 (PCR) (Negative) Influenza A (RT-PCR) (NEGATIVE) Influenza B (RT-PCR) (NEGATIVE) RSV (PCR) (Negative) Imaging Data CT scan - abdomen/pelvis: Radiologist's Impression: PROCEDURE:? CT CHEST ABD PEL W CON ? INDICATIONS:? Abd pain; ?Pneumonia ? TECHNIQUE:? After the administration of intravenous contrast, axial sections acquired from the supraclavicular neck to the pubic symphysis.? Coronal and sagittal reformats were performed.? For radiation dose reduction, the following was used:? automated exposure control, adjustment of mA and/or kV according to patient size.? ? COMPARISON: ? [facility], CT, CT ANGIO CHEST PE PROTOCOL, 05/03/2022, 14:55.? [facility], CT, CHEST/ABD/PEL WITH CONTRAST, 03/12/2016, 14:38. ? FINDINGS:? Image quality:? Excellent.? ? CHEST: Lower Neck:? Right supraclavicular node measuring 1.5 cm, (01/06), previously 1.2 cm on 05/03/2022.? Suspect right upper paratracheal node measuring 1.5 cm, (01/05), previously 1.5 cm. Thyroid:? No thyroid nodule seen. Axillae: No enlarged lymph nodes. Chest Wall:? C2-C4 pedicle screw fixation partially visualized. ? Lungs and Airways:? Scattered consolidations most pronounced in the lower lung north, overall mildly worsened.? Some of this opacity has a centrilobular distribution.? There is bronchial wall thickening and distal mucus airway plugging.? There is mild cavitation or bronchiectasis at the lingula, (5/216), new or newly identified. Pleura: No pneumothorax.? Trace left pleural effusion. ? Heart: Heart size is normal.? No pericardial effusion. Thoracic Vessels: The aorta and pulmonary arteries demonstrate normal size.? No central pulmonary embolism.? No aortic dissection.? Mediastinum and [place]:? Shotty mediastinal lymph nodes. Esophagus: No wall thickening.? No significant hiatal hernia. ? ? ABDOMEN: Liver:? No focal lesion.? ? Gallbladder:? Unremarkable.? ? Biliary ducts:? Unremarkable.? ? Pancreas:? Unremarkable.? ? Spleen:? Unremarkable.? ? Adrenal Glands:? Suspect thickening at the adrenal glands which appears new compared to 05/03/2022.? ? Kidneys and Ureters:? No hydronephrosis. ? Stomach and Bowel:? Stomach, small bowel loops, and colon are unremarkable.? Colonic diverticuli.? The appendix is not identified. Peritoneum:? No abnormal intraperitoneal fluid.? No free air.? ? Ventral Wall: ? No hernia.? Abdominal Nodes:? No retroperitoneal or mesenteric adenopathy by size criteria.? Vessels:? Aorta and inferior vena cava are normal in size.? ? PELVIS: Pelvic Organs:? Unremarkable.? ? Bladder:? Unremarkable.? ? Pelvic Nodes: No enlarged lymph nodes.? Miscellaneous: No inguinal hernias are seen. ? ? ? Bones:? Bridging thoracolumbar syndesmophytes.? Bones appear osteopenic.? No compression fracture.? Degenerative change at the pubic symphysis.? Ankylosis at the SI joints.? No suspicious lesion seen. ? IMPRESSION:? 1.? Scattered consolidations in both lungs with a lower lung field predominant distribution.? Overall this is mildly worsened.? This is most consistent with multifocal pneumonia. ? 2.? Bronchial wall thickening, distal mucus airway plugging, and possible bronchiectasis or cavitation at the lingula.? Findings suggestive of bronchitis.? ? 3.? Trace left pleural effusion. ? 4. Right supraclavicular and right upper paratracheal adenopathy.? These are indeterminate.? Shotty mediastinal lymph nodes. ? 5. Thickening of the adrenal glands, new.? This could be seen in the setting of adrenal hyperplasia or adrenal hemorrhage. ? 6. No small bowel obstruction.? Diverticulosis.? No diverticulitis.? No free fluid. ? 7. Findings of ankylosis spondylitis or DISH.? Dictated by: Damian Rivera M.D. on 10/30/2022 at 18:36 ? ? Approved by: Damian Rivera M.D. on 10/30/2022 at 18:52 ? MDM Narrative Medical decision making narrative: 61-year-old male with past medical history hypertension, ankylosing spondylitis, alcohol use disorder presents to the ED with 1 day of acute onset abdominal pain. Concern for pneumonia versus intra-abdominal pathology including SBO, appendicitis, diverticulitis, pancreatitis, gastritis, GERD, other. Will obtain labs, lactate, lipase, CT chest abdomen pelvis, respiratory panel. Will give fluids, Zofran. Will reassess. White count elevated to 23.7. Lactate elevated to 3.9. Patient was given morphine, then given Dilaudid for pain. Sepsis activated, fluids started, blood cultures obtained, antibiotics started. Potassium 2.8, potassium repleted. CT chest abdomen pelvis shows multifocal pneumonia, bronchitis, left pleural effusion, right supraclavicular and right upper paratracheal adenopathy, shotty mediastinal lymph nodes. CT also shows thickening of the adrenal glands which is new, which could be in the setting of adrenal hyperplasia or adrenal hemorrhage. Patient's pain continues to be severe, being controlled by Dilaudid. Will consult hospitalist for admission. Fely Sharpe, hospitalist consulted. Patient accepted for admission. <Claudette Velazquez MD - Last Filed: 10/31/22 18:12> Lab Data Labs: Lab Results 10/30/22 10/30/22 10/30/22 Range/Units 16:10 16:10 16:10 WBC 23.7 H (4.5-11.0) X10^3/uL RBC 3.84 L (4.5-5.9) X10^6/uL Hgb 10.9 L (13.5-17.5) g/dL Hct 32.3 L (41-53) % MCV 84.0 (80-100) fL MCH 28.5 (26-34) PG MCHC 33.9 (30-36) % RDW 13.9 (11.6-14.8) % Plt Count 692 H (150-400) X10^3/uL Neut % (Auto) 86.7 H (50-75) % Lymph % (Auto) 3.0 L (25-40) % [place] % (Auto) 9.9 (3-14) % Eos % (Auto) 0.0 L (2-4) % Baso % (Auto) 0.4 (0-2) % Neut # (Auto) 55472 H (4265-9159) /uL Lymph # (Auto) 700 L (6562-5517) /uL [place] # (Auto) 2300 H (0-900) /uL Eos # (Auto) 0 (0-450) /uL Baso # (Auto) 100 (0-100) /uL PT (10.1-12.7) SECONDS INR (0.9-1.3) APTT (26-36) SECONDS VBG pH (7.33-7.43) VBG pCO2 (45-50) mmHg VBG HCO3 (23-28) mmol/L VBG Total CO2 (24-29) mmol/L VBG Base Excess (0-4) mmol/L Sodium 129 L (137-145) mmol/L Potassium 2.8 L (3.4-5.1) mmol/L Chloride 86 L (98-107) mmol/L Carbon Dioxide 30 (22-32) mmol/L BUN 9 (9-20) mg/dL Creatinine 0.54 L (0.66-1.25) mg/dL Estimated GFR > 60 (>60) mL/min BUN/Creatinine Ratio 16.7 (6-22) Glucose 257 H (80-110) mg/dL Hemoglobin A1c (4.0-6.0) % Lactate 3.9 H (0.7-2.1) mmol/L Calcium 8.9 (8.4-10.2) mg/dL Magnesium (1.6-2.3) mg/dL Total Bilirubin 0.5 (0.2-1.3) mg/dL AST 19 (17-59) IU/L ALT 16 (<50) IU/L Alkaline Phosphatase 187 H (38-126) U/L Total Protein 7.7 (6.3-8.2) g/dL Albumin 3.3 L (3.5-5.0) g/dL Globulin 4.4 H (1.7-4.1) g/dL Albumin/Globulin Ratio 0.8 L (1.0-2.8) Lipase 16 L (23-300) U/L Urine Color Urine Appearance Urine pH (4.5-8.0) Ur Specific [place] (1.000-1.035) Urine Protein (Negative) Urine Glucose (UA) (Negative) g/dL Urine Ketones (NEGATIVE) Urine Occult Blood (Negative) Urine Nitrate (Negative) Urine Bilirubin (NEGATIVE) Urine Urobilinogen (0.2) E.U./dL Ur Leukocyte Esterase (NEGATIVE) Urine RBC (0-5/HPF) Urine WBC (0-5/HPF) Ur Squamous Epith Cells (0-5/HPF) Urine Bacteria (None) Ur Culture Indicated? SARS-CoV-2 (PCR) (Negative) Influenza A (RT-PCR) (NEGATIVE) Influenza B (RT-PCR) (NEGATIVE) RSV (PCR) (Negative) 10/30/22 10/30/22 10/30/22 Range/Units 16:10 16:10 16:10 WBC (4.5-11.0) X10^3/uL RBC (4.5-5.9) X10^6/uL Hgb (13.5-17.5) g/dL Hct (41-53) % MCV (80-100) fL MCH (26-34) PG MCHC (30-36) % RDW (11.6-14.8) % Plt Count (150-400) X10^3/uL Neut % (Auto) (50-75) % Lymph % (Auto) (25-40) % [place] % (Auto) (3-14) % Eos % (Auto) (2-4) % Baso % (Auto) (0-2) % Neut # (Auto) (8681-2471) /uL Lymph # (Auto) (3069-3299) /uL [place] # (Auto) (0-900) /uL Eos # (Auto) (0-450) /uL Baso # (Auto) (0-100) /uL PT 15.5 H (10.1-12.7) SECONDS INR 1.3 (0.9-1.3) APTT 43 H (26-36) SECONDS VBG pH (7.33-7.43) VBG pCO2 (45-50) mmHg VBG HCO3 (23-28) mmol/L VBG Total CO2 (24-29) mmol/L VBG Base Excess (0-4) mmol/L Sodium (137-145) mmol/L Potassium (3.4-5.1) mmol/L Chloride (98-107) mmol/L Carbon Dioxide (22-32) mmol/L BUN (9-20) mg/dL Creatinine (0.66-1.25) mg/dL Estimated GFR (>60) mL/min BUN/Creatinine Ratio (6-22) Glucose (80-110) mg/dL Hemoglobin A1c 5.8 (4.0-6.0) % Lactate (0.7-2.1) mmol/L Calcium (8.4-10.2) mg/dL Magnesium 1.3 L (1.6-2.3) mg/dL Total Bilirubin (0.2-1.3) mg/dL AST (17-59) IU/L ALT (<50) IU/L Alkaline Phosphatase (38-126) U/L Total Protein (6.3-8.2) g/dL Albumin (3.5-5.0) g/dL Globulin (1.7-4.1) g/dL Albumin/Globulin Ratio (1.0-2.8) Lipase (23-300) U/L Urine Color Urine Appearance Urine pH (4.5-8.0) Ur Specific [place] (1.000-1.035) Urine Protein (Negative) Urine Glucose (UA) (Negative) g/dL Urine Ketones (NEGATIVE) Urine Occult Blood (Negative) Urine Nitrate (Negative) Urine Bilirubin (NEGATIVE) Urine Urobilinogen (0.2) E.U./dL Ur Leukocyte Esterase (NEGATIVE) Urine RBC (0-5/HPF) Urine WBC (0-5/HPF) Ur Squamous Epith Cells (0-5/HPF) Urine Bacteria (None) Ur Culture Indicated? SARS-CoV-2 (PCR) (Negative) Influenza A (RT-PCR) (NEGATIVE) Influenza B (RT-PCR) (NEGATIVE) RSV (PCR) (Negative) 10/30/22 10/30/22 10/30/22 Range/Units 16:20 17:51 18:36 WBC (4.5-11.0) X10^3/uL RBC (4.5-5.9) X10^6/uL Hgb (13.5-17.5) g/dL Hct (41-53) % MCV (80-100) fL MCH (26-34) PG MCHC (30-36) % RDW (11.6-14.8) % Plt Count (150-400) X10^3/uL Neut % (Auto) (50-75) % Lymph % (Auto) (25-40) % [place] % (Auto) (3-14) % Eos % (Auto) (2-4) % Baso % (Auto) (0-2) % Neut # (Auto) (1526-7499) /uL Lymph # (Auto) (0407-7962) /uL [place] # (Auto) (0-900) /uL Eos # (Auto) (0-450) /uL Baso # (Auto) (0-100) /uL PT (10.1-12.7) SECONDS INR (0.9-1.3) APTT (26-36) SECONDS VBG pH 7.36 (7.33-7.43) VBG pCO2 46.6 (45-50) mmHg VBG HCO3 26 (23-28) mmol/L VBG Total CO2 28 (24-29) mmol/L VBG Base Excess 1.0 (0-4) mmol/L Sodium (137-145) mmol/L Potassium (3.4-5.1) mmol/L Chloride (98-107) mmol/L Carbon Dioxide (22-32) mmol/L BUN (9-20) mg/dL Creatinine (0.66-1.25) mg/dL Estimated GFR (>60) mL/min BUN/Creatinine Ratio (6-22) Glucose (80-110) mg/dL Hemoglobin A1c (4.0-6.0) % Lactate (0.7-2.1) mmol/L Calcium (8.4-10.2) mg/dL Magnesium (1.6-2.3) mg/dL Total Bilirubin (0.2-1.3) mg/dL AST (17-59) IU/L ALT (<50) IU/L Alkaline Phosphatase (38-126) U/L Total Protein (6.3-8.2) g/dL Albumin (3.5-5.0) g/dL Globulin (1.7-4.1) g/dL Albumin/Globulin Ratio (1.0-2.8) Lipase (23-300) U/L Urine Color Yellow Urine Appearance Clear Urine pH 5.5 (4.5-8.0) Ur Specific [place] 1.015 (1.000-1.035) Urine Protein 1+ H (Negative) Urine Glucose (UA) 1+ H (Negative) g/dL Urine Ketones Trace H (NEGATIVE) Urine Occult Blood 3+ H (Negative) Urine Nitrate Negative (Negative) Urine Bilirubin Negative (NEGATIVE) Urine Urobilinogen 0.2 (0.2) E.U./dL Ur Leukocyte Esterase Negative (NEGATIVE) Urine RBC 1-5/hpf (0-5/HPF) Urine WBC 1-5/hpf (0-5/HPF) Ur Squamous Epith Cells 0-1 /hpf (0-5/HPF) Urine Bacteria Occasional (0-1) (None) Ur Culture Indicated? Cult not indicated SARS-CoV-2 (PCR) Negative (Negative) Influenza A (RT-PCR) Flu a positive H (NEGATIVE) Influenza B (RT-PCR) Flu b negative (NEGATIVE) RSV (PCR) Negative (Negative) 10/30/22 Range/Units 19:25 WBC (4.5-11.0) X10^3/uL RBC (4.5-5.9) X10^6/uL Hgb (13.5-17.5) g/dL Hct (41-53) % MCV (80-100) fL MCH (26-34) PG MCHC (30-36) % RDW (11.6-14.8) % Plt Count (150-400) X10^3/uL Neut % (Auto) (50-75) % Lymph % (Auto) (25-40) % [place] % (Auto) (3-14) % Eos % (Auto) (2-4) % Baso % (Auto) (0-2) % Neut # (Auto) (7841-5648) /uL Lymph # (Auto) (8586-9602) /uL [place] # (Auto) (0-900) /uL Eos # (Auto) (0-450) /uL Baso # (Auto) (0-100) /uL PT (10.1-12.7) SECONDS INR (0.9-1.3) APTT (26-36) SECONDS VBG pH (7.33-7.43) VBG pCO2 (45-50) mmHg VBG HCO3 (23-28) mmol/L VBG Total CO2 (24-29) mmol/L VBG Base Excess (0-4) mmol/L Sodium (137-145) mmol/L Potassium (3.4-5.1) mmol/L Chloride (98-107) mmol/L Carbon Dioxide (22-32) mmol/L BUN (9-20) mg/dL Creatinine (0.66-1.25) mg/dL Estimated GFR (>60) mL/min BUN/Creatinine Ratio (6-22) Glucose (80-110) mg/dL Hemoglobin A1c (4.0-6.0) % Lactate 5.0 H* (0.7-2.1) mmol/L Calcium (8.4-10.2) mg/dL Magnesium (1.6-2.3) mg/dL Total Bilirubin (0.2-1.3) mg/dL AST (17-59) IU/L ALT (<50) IU/L Alkaline Phosphatase (38-126) U/L Total Protein (6.3-8.2) g/dL Albumin (3.5-5.0) g/dL Globulin (1.7-4.1) g/dL Albumin/Globulin Ratio (1.0-2.8) Lipase (23-300) U/L Urine Color Urine Appearance Urine pH (4.5-8.0) Ur Specific [place] (1.000-1.035) Urine Protein (Negative) Urine Glucose (UA) (Negative) g/dL Urine Ketones (NEGATIVE) Urine Occult Blood (Negative) Urine Nitrate (Negative) Urine Bilirubin (NEGATIVE) Urine Urobilinogen (0.2) E.U./dL Ur Leukocyte Esterase (NEGATIVE) Urine RBC (0-5/HPF) Urine WBC (0-5/HPF) Ur Squamous Epith Cells (0-5/HPF) Urine Bacteria (None) Ur Culture Indicated? SARS-CoV-2 (PCR) (Negative) Influenza A (RT-PCR) (NEGATIVE) Influenza B (RT-PCR) (NEGATIVE) RSV (PCR) (Negative) Discharge Plan Departure Patient Disposition: Admitted As Inpatient Clinical Impression: Sepsis Admit Date/Time: 10/30/22 20:22 Admit Provider: Fely Sharpe <Claudette Velazquez MD - Last Filed: 10/31/22 18:12> Cosign ED Attending Cosignature Attestation: I was immediately available in the department for consultation throughout this patient's visit. I agree with documentation as above. Claudette Velazquez MD
--- NOTE | 2022-10-30 16:51 | DI.CT.S_ITS ---
PROCEDURE: CT CHEST ABD PEL W CON INDICATIONS: Abd pain; ?Pneumonia TECHNIQUE: After the administration of intravenous contrast, axial sections acquired from the supraclavicular neck to the pubic symphysis. Coronal and sagittal reformats were performed. For radiation dose reduction, the following was used: automated exposure control, adjustment of mA and/or kV according to patient size. COMPARISON: [facility], CT, CT ANGIO CHEST PE PROTOCOL, 05/03/2022, 14:55. [facility], CT, CHEST/ABD/PEL WITH CONTRAST, 03/12/2016, 14:38. FINDINGS: Image quality: Excellent. CHEST: Lower Neck: Right supraclavicular node measuring 1.5 cm, (2/12), previously 1.2 cm on 05/03/2022. Suspect right upper paratracheal node measuring 1.5 cm, (2/11), previously 1.5 cm. Thyroid: No thyroid nodule seen. Axillae: No enlarged lymph nodes. Chest Wall: C2-C4 pedicle screw fixation partially visualized. Lungs and Airways: Scattered consolidations most pronounced in the lower lung north, overall mildly worsened. Some of this opacity has a centrilobular distribution. There is bronchial wall thickening and distal mucus airway plugging. There is mild cavitation or bronchiectasis at the lingula, (5/216), new or newly identified. Pleura: No pneumothorax. Trace left pleural effusion. Heart: Heart size is normal. No pericardial effusion. Thoracic Vessels: The aorta and pulmonary arteries demonstrate normal size. No central pulmonary embolism. No aortic dissection. Mediastinum and Augustina: Shotty mediastinal lymph nodes. Esophagus: No wall thickening. No significant hiatal hernia. ABDOMEN: Liver: No focal lesion. Gallbladder: Unremarkable. Biliary ducts: Unremarkable. Pancreas: Unremarkable. Spleen: Unremarkable. Adrenal Glands: Suspect thickening at the adrenal glands which appears new compared to 05/03/2022. Kidneys and Ureters: No hydronephrosis. Stomach and Bowel: Stomach, small bowel loops, and colon are unremarkable. Colonic diverticuli. The appendix is not identified. Peritoneum: No abnormal intraperitoneal fluid. No free air. Ventral Wall: No hernia. Abdominal Nodes: No retroperitoneal or mesenteric adenopathy by size criteria. Vessels: Aorta and inferior vena cava are normal in size. PELVIS: Pelvic Organs: Unremarkable. Bladder: Unremarkable. Pelvic Nodes: No enlarged lymph nodes. Miscellaneous: No inguinal hernias are seen. Bones: Bridging thoracolumbar syndesmophytes. Bones appear osteopenic. No compression fracture. Degenerative change at the pubic symphysis. Ankylosis at the SI joints. No suspicious lesion seen. IMPRESSION: 1. Scattered consolidations in both lungs with a lower lung field predominant distribution. Overall this is mildly worsened. This is most consistent with multifocal pneumonia. 2. Bronchial wall thickening, distal mucus airway plugging, and possible bronchiectasis or cavitation at the lingula. Findings suggestive of bronchitis. 3. Trace left pleural effusion. 4. Right supraclavicular and right upper paratracheal adenopathy. These are indeterminate. Shotty mediastinal lymph nodes. 5. Thickening of the adrenal glands, new. This could be seen in the setting of adrenal hyperplasia or adrenal hemorrhage. 6. No small bowel obstruction. Diverticulosis. No diverticulitis. No free fluid. 7. Findings of ankylosis spondylitis or DISH. Dictated by: Damian Rivera M.D. on 10/30/2022 at 18:36 Approved by: Damian Rivera M.D. on 10/30/2022 at 18:52
[2022-10-30] MEDS: SODIUM CHLORIDE 0.9% 1,000 ML 1000 ML IV ×2 (17:13→18:57)
[2022-10-30 17:14] LABS: Alanine Aminotransferase 16 IU/L (<50); Albumin 3.3 g/dL (3.5-5.0); Albumin Globulin Ratio 0.8 (1.0-2.8); Alkaline Phosphatase 187 U/L (38-126); Aspartate Aminotransferase 19 IU/L (17-59); BUN Creatinine Ratio 16.7 (6-22); Bilirubin Total 0.5 mg/dL (0.2-1.3); Blood Urea Nitrogen 9 mg/dL (9-20); Calcium 8.9 mg/dL (8.4-10.2); Carbon Dioxide 30 mmol/L (22-32); Chloride 86 mmol/L (98-107); Estimated Glomerular Filt Rate > 60 mL/min (>60); Globulin 4.4 g/dL (1.7-4.1); Glucose 257 mg/dL (80-110); HEMOLYSIS < 15 (0-50); Lipase 16 U/L (23-300); Potassium 2.8 mmol/L (3.4-5.1); Sodium 129 mmol/L (137-145); Total Protein 7.7 g/dL (6.3-8.2)
[2022-10-30] MEDS: MORPHINE 4 MG/ML INJ IV (17:14)
[2022-10-30] MEDS: ONDANSETRON 4 MG/2 ML INJ IV (17:14)
[2022-10-30 17:24] LABS: Lactate (Lactic Acid) 3.9 mmol/L (0.7-2.1)
[2022-10-30] MEDS: HYDROMORPHONE 1 MG INJ IV ×4 (18:01→23:58)
[2022-10-30 18:19] LABS: Appearance Urine UA CLEAR; Bilirubin Urine UA NEGATIVE (NEGATIVE); Color Urine UA YELLOW; Glucose Urine UA 1+ g/dL (Negative); Ketones Urine UA TRACE (NEGATIVE); Leukocyte Esterase Urine UA NEGATIVE (NEGATIVE); Nitrite Urine UA NEGATIVE (Negative); Occult Blood Urine UA 3+ (Negative); Protein Urine UA 1+ (Negative); Specific Gravity Urine UA 1.015 (1.000-1.035); Urobilinogen Urine UA 0.2 E.U./dL (0.2); pH Urine UA 5.5 (4.5-8.0)
[2022-10-30 18:43] LABS: Bacteria Urine Occasional (0-1); Culture Indicated Urine Cult Not Indicated; RBC Urine 1-5/HPF (0-5/HPF); Squamous Epithelial Cell Urine 0-1 /HPF (0-5/HPF); WBC Urine 1-5/HPF (0-5/HPF)
[2022-10-30 18:56] LABS: HCO3 VBG 26 mmol/L (23-28); PCO2 VBG 46.6 mmHg (45-50); Total CO2 VBG 28 mmol/L (24-29); pH VBG 7.36 (7.33-7.43)
[2022-10-30 18:56] LABS: Influenza A - CEPHEID Flu A POSITIVE (NEGATIVE); Influenza B - CEPHEID Flu B NEGATIVE (NEGATIVE); Respiratory Syncytial Virus Negative (Negative)
[2022-10-30] MEDS: PIPERACILLIN/TAZO 4.5 GM in SODIUM CHLORIDE 0.9% 100 ML IV (18:56)
[2022-10-30 19:01] LABS: COVID-19 CEPHEID 4-PLEX PCR Negative (Negative)
[2022-10-30 19:07] LABS: Reflexed Lactate in 2 Hours Y
[2022-10-30 19:28] LABS: INR 1.3 (0.9-1.3); Prothrombin Time 15.5 SECONDS (10.1-12.7)
[2022-10-30 19:30] LABS: PTT Partial Thromboplastin Tim 43 SECONDS (26-36)
--- NOTE | 2022-10-30 19:30 | PC.NURSE ---
pt received awake and alert moaning with c/o abd pain, IV to right upper arm infusing zosyn and 2nd liter of NS site clear, and IV to left AC noted intact without redness or swelling noted at site,
[2022-10-30] MEDS: VANCOMYCIN 1,000 MG/200 ML PIGGYBACK 200 MG IV (20:07)
[2022-10-30] MEDS: METOCLOPRAMIDE 10 MG/2 ML INJ IV (20:34)
[2022-10-30] MEDS: POTASSIUM CHLORIDE IN WATER 10 MEQ/100 ML PIGGYBACK 100 MEQ IV ×4 (20:54→23:59)
--- NOTE | 2022-10-30 22:56 | PC.NURSE ---
pt up walking around room refusing to stay on the monitor, pt was told he needed to stay on the monitor and he continued to remove the connections
--- NOTE | 2022-10-30 23:02 | PM.CN.EICU ---
History of Present Illness Consult details IF CAMERA ACTIVATED, patient seen via real-time interactive audiovisual communication: Camera not activated Chief complaint: abdominal pain Reason for consult: Lactic acidosis Requesting provider: Fely Sharpe Consent obtained for tele-human resources file clerk care: Yes Patient Location: ICU Provider location (State): [place] Other participants/roles: Fely Sharpe Narrative: Patient is 61 year old male with history of hypertesion, alcohol abuse, and ankylosing spondylitis who was recently diagnosed with flu last presenting with abdominal pain. Associated with N/V and abdominal pain worsen after dranking some Pepsi. No reported fever/chills, SOB, diarrhea, or dysuria. On presentation, labs notable for WBC 23.7, Na 129, K 2.8, Cl 86, lipase 16, and lactic acid 5. CT chest/abdomen/pelvis showed scattered consolidation with bronchial wall thickening, mediastinal adenopathy, trace of left pleural effusion. Patient was given 2 liters of crystalloid bolus. Admitted to ICU for further management. [facility] Medical History (Updated 10/30/22 @ 20:17 by Angel Logan PA-C) Acid reflux Alcohol abuse Ankle pain Ankylosing spondylitis (1985) Ankylosing spondylitis Chronic back pain Foot pain Fracture cervical vertebra-closed GERD (gastroesophageal reflux disease) Hypertension Hypertension Muscle pain Tobacco use disorder, moderate, in early remission Surgical History History of open reduction and internal fixation (ORIF) procedure (2005) History of tonsillectomy Status post colonoscopy (2012) Status post incision and drainage Family History Father No problems noted. Mother Cancer Other Alcoholism Colorectal cancer Social History Smoking Status: Current every day smoker Current Medications Current Medications Medications: Home Medications ketorolac 0.4 % eye drops 1 drp OPHTH QID #5 mL 06/20/17 [Rx Confirmed 10/13/18] indomethacin 50 mg capsule 50 mg PO TIDP PRN pain, moderate #90 caps 10/13/18 [Rx] amitriptyline 25 mg tablet 25 mg PO BEDTIME #30 tabs 01/07/19 [Rx] ondansetron 4 mg disintegrating tablet 4 mg PO TID-QID PRN nausea and vomiting #10 tabs 02/24/19 [Rx] cyclobenzaprine 10 mg tablet 10 mg PO TIDP #90 tabs 11/19/19 [Rx] gabapentin 300 mg capsule (Neurontin) 300 mg PO Q8H #90 caps 11/19/19 [Rx] metoprolol succinate 50 mg tablet,extended release 24 hr (Toprol XL) 50 mg PO BID #60 tabs 11/19/19 [Rx] omeprazole 20 mg capsule,delayed release 20 mg PO QDAY #30 caps 11/19/19 [Rx] doxycycline hyclate 100 mg capsule 100 mg PO BID #14 caps 05/03/22 [Rx] Visit Medications (administered) Generic Name Dose Route Start Last Admin Trade Name Freq PRN Reason Stop Dose Admin Hydromorphone HCl 1 mg 10/30/22 20:31 10/30/22 21:57 Hydromorphone 1 Mg Inj IV 1 mg Q3H PRN Administration Pain, Moderate (4-6) POTASSIUM CHLORIDE IN WATER 10 meq in 100 mls @ 100 mls/hr 10/30/22 20:30 10/30/22 21:49 Potassium Cl 10 Meq/100 Ml Ruth IV 10/31/22 00:29 100 mls/hr Q1H JYOTI Administration Metoclopramide HCl 10 mg 10/30/22 20:29 10/30/22 20:34 Metoclopramide 10 Mg/2 Ml Inj IV 10 mg Q6HR PRN Administration Nausea And Vomiting Ondansetron HCl 4 mg 10/30/22 16:00 10/30/22 17:14 Ondansetron 4 Mg/2 Ml Inj IV 4 mg NOW PRN Administration Nausea And Vomiting Exam Vital Signs (past 8 hours): - 10/30/22 15:58 10/30/22 16:16 10/30/22 18:16 Temperature 98.9 F Pulse Rate 102 H 95 H 58 L Respiratory Rate 18 Blood Pressure 189/108 H 179/84 H Pulse Oximetry 99 97 98 Oxygen Delivery Method Room Air Room Air 10/30/22 18:30 10/30/22 18:30 10/30/22 19:00 Temperature Pulse Rate 62 62 Respiratory Rate Blood Pressure 163/79 H Pulse Oximetry 98 97 Oxygen Delivery Method 10/30/22 19:30 10/30/22 19:30 10/30/22 20:00 Temperature Pulse Rate 68 Respiratory Rate 20 Blood Pressure 165/80 H 165/77 H Pulse Oximetry 98 Oxygen Delivery Method 10/30/22 20:00 Temperature Pulse Rate 63 Respiratory Rate Blood Pressure Pulse Oximetry 98 Oxygen Delivery Method Oxygen Delivery Method Room Air Objective Labs Result Diagrams: 10/30/22 16:10 10/30/22 16:10 Labs: Laboratory Results - last 24 hr 10/30/22 10/30/22 10/30/22 16:10 16:10 16:10 WBC 23.7 H RBC 3.84 L Hgb 10.9 L Hct 32.3 L MCV 84.0 MCH 28.5 MCHC 33.9 RDW 13.9 Plt Count 692 H Neut % (Auto) 86.7 H Lymph % (Auto) 3.[address] % (Auto) 9.9 Eos % (Auto) 0.0 L Baso % (Auto) 0.4 Neut # (Auto) 75126 H Lymph # (Auto) [address] [facility] # (Auto) 2300 H Eos # (Auto) 0 Baso # (Auto) 100 PT INR APTT VBG pH VBG pCO2 VBG HCO3 VBG Total CO2 VBG Base Excess Sodium 129 L Potassium 2.8 L Chloride 86 L Carbon Dioxide 30 BUN 9 Creatinine 0.54 L Estimated GFR > 60 BUN/Creatinine Ratio 16.7 Glucose 257 H Lactate 3.9 H Calcium 8.9 Total Bilirubin 0.5 AST 19 ALT 16 Alkaline Phosphatase 187 H Total Protein 7.7 Albumin 3.3 L Globulin 4.4 H Albumin/Globulin Ratio 0.8 L Lipase 16 L Urine Color Urine Appearance Urine pH Ur Specific [place] Urine Protein Urine Glucose (UA) Urine Ketones Urine Occult Blood Urine Nitrate Urine Bilirubin Urine Urobilinogen Ur Leukocyte Esterase Urine RBC Urine WBC Ur Squamous Epith Cells Urine Bacteria Ur Culture Indicated? SARS-CoV-2 (PCR) Influenza A (RT-PCR) Influenza B (RT-PCR) RSV (PCR) 10/30/22 10/30/22 10/30/22 16:10 16:20 17:51 WBC RBC Hgb Hct MCV MCH MCHC RDW Plt Count Neut % (Auto) Lymph % (Auto) [facility] % (Auto) Eos % (Auto) Baso % (Auto) Neut # (Auto) Lymph # (Auto) [facility] # (Auto) Eos # (Auto) Baso # (Auto) PT 15.5 H INR 1.3 APTT 43 H VBG pH VBG pCO2 VBG HCO3 VBG Total CO2 VBG Base Excess Sodium Potassium Chloride Carbon Dioxide BUN Creatinine Estimated GFR BUN/Creatinine Ratio Glucose Lactate Calcium Total Bilirubin AST ALT Alkaline Phosphatase Total Protein Albumin Globulin Albumin/Globulin Ratio Lipase Urine Color Yellow Urine Appearance Clear Urine pH 5.5 Ur Specific [place] 1.015 Urine Protein 1+ H Urine Glucose (UA) 1+ H Urine Ketones Trace H Urine Occult Blood 3+ H Urine Nitrate Negative Urine Bilirubin Negative Urine Urobilinogen 0.2 Ur Leukocyte Esterase Negative Urine RBC 1-5/hpf Urine WBC 1-5/hpf Ur Squamous Epith Cells 0-1 /hpf Urine Bacteria Occasional (0-1) Ur Culture Indicated? Cult not indicated SARS-CoV-2 (PCR) Negative Influenza A (RT-PCR) Flu a positive H Influenza B (RT-PCR) Flu b negative RSV (PCR) Negative 10/30/22 10/30/22 18:36 19:25 WBC RBC Hgb Hct MCV MCH MCHC RDW Plt Count Neut % (Auto) Lymph % (Auto) [facility] % (Auto) Eos % (Auto) Baso % (Auto) Neut # (Auto) Lymph # (Auto) [facility] # (Auto) Eos # (Auto) Baso # (Auto) PT INR APTT VBG pH 7.36 VBG pCO2 46.6 VBG HCO3 26 VBG Total CO2 28 VBG Base Excess 1.0 Sodium Potassium Chloride Carbon Dioxide BUN Creatinine Estimated GFR BUN/Creatinine Ratio Glucose Lactate 5.0 H* Calcium Total Bilirubin AST ALT Alkaline Phosphatase Total Protein Albumin Globulin Albumin/Globulin Ratio Lipase Urine Color Urine Appearance Urine pH Ur Specific [place] Urine Protein Urine Glucose (UA) Urine Ketones Urine Occult Blood Urine Nitrate Urine Bilirubin Urine Urobilinogen Ur Leukocyte Esterase Urine RBC Urine WBC Ur Squamous Epith Cells Urine Bacteria Ur Culture Indicated? SARS-CoV-2 (PCR) Influenza A (RT-PCR) Influenza B (RT-PCR) RSV (PCR) Assessment & Plan Assessment & Plan narrative: NEURO: -- Seek early mobility RESP: # Pneumonia -- CT chest showed patchy multifocal PNA concerning fro superimposed bacterial PNA -- Start tamiflu, ceftriaxone, and linezolid -- Check resp cx -- Check MRSA swab -- Need repeat CT chest in 4-6 weeks to document clearance CVS: # HTN -- Secondary to pain -- Okay to resume metoprolol -- Goal SBP < 160 : # Lactic acidosis -- Secondary to dehydration and sepsis -- Cont aggressive IVF resuscitation -- Trend lactic acid every 4 hours -- Sepsis rx as below # Hyponatremia -- Secondary to dehydration -- Cont IVF -- Daily BMP ID: # Severe sepsis -- Secondary to flu PNA w/ superimposed bacterial PNA -- Check resp cx -- Check blood cx -- Check MRSA swab -- Check urinary legionella/strep -- Follow up cx ENDO: -- Goal BS < 180 Discussed with Fely Sharpe. Time Spent With Patient Critical Care time: I spent a total of 33 minutes of critical care time on this patient's care today; this time is exclusive of procedural time.
[2022-10-31] VITALS (73 sets, daily range): BP systolic 93–186; BP diastolic 53–102; PULSE 69–144; RESP 16–44; TEMP 37–37.4; O2SAT 60–100
[2022-10-31] MEDS: LORazepam 2 MG/ML INJ 1 MG IV (00:56)
[2022-10-31] MEDS: PHENobarbital 65 MG/ML VIAL 130 MG IV ×3 (01:06→11:39)
[2022-10-31 01:27] LABS: Magnesium 1.3 mg/dL (1.6-2.3)
[2022-10-31] MEDS: LORazepam 2 MG/ML INJ IV ×4 (02:29→05:04)
[2022-10-31 02:57] LABS: Alanine Aminotransferase 14 IU/L (<50); Albumin 3.2 g/dL (3.5-5.0); Albumin Globulin Ratio 0.8 (1.0-2.8); Alkaline Phosphatase 163 U/L (38-126); Aspartate Aminotransferase 20 IU/L (17-59); BUN Creatinine Ratio 11.8 (6-22); Bilirubin Total 0.5 mg/dL (0.2-1.3); Blood Urea Nitrogen 6 mg/dL (9-20); Calcium 8.1 mg/dL (8.4-10.2); Carbon Dioxide 32 mmol/L (22-32); Chloride 92 mmol/L (98-107); Estimated Glomerular Filt Rate > 60 mL/min (>60); Glucose 136 mg/dL (80-110); HEMOLYSIS < 15 (0-50); Sodium 133 mmol/L (137-145); Total Protein 7.2 g/dL (6.3-8.2)
[2022-10-31] MEDS: diazePAM 10 MG/2 ML SYRINGE IV (03:24)
[2022-10-31] MEDS: HYDROMORPHONE 1 MG INJ IV (03:27)
[2022-10-31] MEDS: cefTRIAXone 2,000 MG in SODIUM CHLORIDE 0.9% 100 ML 200 MG IV (04:35)
[2022-10-31] MEDS: SODIUM CHLORIDE 0.9% 1,000 ML 100 ML IV ×2 (04:45→20:07)
[2022-10-31] MEDS: ONDANSETRON 4 MG/2 ML INJ IV ×4 (05:05→17:14)
[2022-10-31] MEDS: LINEZOLID 600 MG/300 ML IV.SOLN IV (05:09)
--- NOTE | 2022-10-31 05:10 | P.HP_ITS ---
History of Present Illness History of Present Illness Date Patient Seen: 10/30/22 Time Patient Seen: 20:00 Chief complaint: abdominal pain Narrative: José Miguel Do 61-year-old male with past medical history hypertension, ankylosing spondylitis, alcohol use disorder presents to the ED with 1 day of acute onset abdominal pain.? Patient states that he was diagnosed with the flu last week, went to the clinic today, was sent to the ED for a chest x-ray to rule out pneumonia.? Patient states that his abdominal pain acutely started this afternoon after he drank some Pepsi.? Patient denies fever, chills, chest pain, shortness of breath, frequency, urgency, dysuria, diarrhea.? Patient appears to be in severe pain, pointing to the general periumbilical area.? Patient states that he did not consume any alcohol today, last alcohol consumption was 3 days ago.? Patient denies any other drug. Patient met SIRS criteria in ED I went and evaluated patient in the emergency department for admit patient was confused mumbling I was unable to obtain any accurate HPI ROS medical history medication reconciliation anything. The patient did disclose an intermittent outbursts that he drinks and uses heroin daily. The patient was very insistent that he wanted to leave and often I would later witnessed him attempting to walk had developing and very gently reassured the patient and placed him back in bed multiple times. In report patient was reported to be sepsis, SIRS criteria, patient had a sofa score: 0 upon admit patient's WBC 23.7, with a left shift 20,500, mono, 2300, H&H 10.9/151302, sodium 129, potassium 2.8 glucose 257, PT 15.5, INR 1.3, PTT 43, alk-phos 187, albumin 3.3 lactate 5. Lipase WNL, patient's VBG is were WNL, CT of pelvis:Scattered consolidations in both lungs with a lower lung field predominant distribution.? Overall this is mildly worsened.? This is most consistent with multifocal pneumonia. Bronchial wall thickening, distal mucus airway plugging, and possible bronchiectasis or cavitation at the lingula. Trace left pleural effusion. Right supraclavicular and right upper paratracheal adenopathy.? These are indeterminate.? Shotty mediastinal lymph nodes. Patient admitted for pneumonia, influenza a, heroin and alcohol withdrawal, lactic acidosis patient had a sofa score: 0 on admit. Patient History Medical History Acid reflux Alcohol abuse Ankle pain Ankylosing spondylitis (1985) Ankylosing spondylitis Chronic back pain Foot pain Fracture cervical vertebra-closed GERD (gastroesophageal reflux disease) Hypertension Hypertension Muscle pain Tobacco use disorder, moderate, in early remission Surgical History History of open reduction and internal fixation (ORIF) procedure (2005) History of tonsillectomy Status post colonoscopy (2012) Status post incision and drainage Family & Social History Family History Father No problems noted. Mother Cancer Other Alcoholism Colorectal cancer Safety & Behavioral: Feels Safe in Current Yes Environment Been Physically Hurt or No Threatened By a Person Tobacco & Substance use: Smoking Status Current every day smoker alcohol intake frequency 3 or more drinks per day Substance Use Type marijuana,opiates,painkillers,heroin Meds Home Medications and Allergies Home Medications Medication Instructions Recorded Confirmed Type ketorolac 0.4 % eye drops 1 drp OPHTH QID #5 mL 06/20/17 10/13/18 Rx indomethacin 50 mg capsule 50 mg PO TIDP PRN pain, moderate 10/13/18 Rx #90 caps amitriptyline 25 mg tablet 25 mg PO BEDTIME #30 tabs 01/07/19 Rx ondansetron 4 mg disintegrating 4 mg PO TID-QID PRN nausea and 02/24/19 Rx tablet vomiting #10 tabs cyclobenzaprine 10 mg tablet 10 mg PO TIDP #90 tabs 11/19/19 Rx gabapentin 300 mg capsule 300 mg PO Q8H #90 caps 11/19/19 Rx (Neurontin) metoprolol succinate 50 mg 50 mg PO BID #60 tabs 11/19/19 Rx tablet,extended release 24 hr (Toprol XL) omeprazole 20 mg capsule,delayed 20 mg PO QDAY #30 caps 11/19/19 Rx release doxycycline hyclate 100 mg capsule 100 mg PO BID #14 caps 05/03/22 Rx Allergies Allergy/AdvReac Type Severity Reaction Status Date / Time No Known Drug Allergies Allergy Verified 06/09/22 12:04 Review of Systems Review of Systems Narrative: All 12 point systems reviewed with the patient and are negative except otherwise documented. Exam Vital Signs (past 8 hours): - 10/30/22 21:30 10/30/22 21:31 10/30/22 21:31 Pulse Rate 105 H 105 H Respiratory Rate Blood Pressure 167/79 H Pulse Oximetry 99 99 10/30/22 22:00 10/30/22 22:30 10/30/22 23:55 Pulse Rate 62 77 95 H Respiratory Rate Blood Pressure Pulse Oximetry 80 L 84 L 97 10/30/22 23:57 10/31/22 00:00 10/31/22 00:00 Pulse Rate 96 H 104 H Respiratory Rate Blood Pressure 164/96 H Pulse Oximetry 96 96 10/31/22 00:30 10/31/22 00:31 10/31/22 00:31 Pulse Rate 101 H 92 H Respiratory Rate Blood Pressure 186/102 H Pulse Oximetry 95 96 10/31/22 03:12 10/31/22 04:42 10/31/22 04:43 Pulse Rate 111 H 117 H Respiratory Rate 20 Blood Pressure Pulse Oximetry 92 100 95 10/31/22 04:43 Pulse Rate Respiratory Rate Blood Pressure 141/81 H Pulse Oximetry Oxygen Delivery Method Room Air Narrative Exam Narrative: General: Patient is a disheveled poorly groomed confused disorientated male, able to hear patient retching quite severely and loudly from outside that or who appears much older than stated age, is chronically mumbling occasionally speaks out difficult to understand unable to obtain any sort of accurate HPI, ROS, family medical history, or medication reconciliation. In no distress at this time. HEENT: Normocephalic, atraumatic, extraocular muscles intact, oral pharynx is clear and mucous membranes are dry, poor teeth. Neck is supple and symmetric, trachea is midline, no adenopathy, no thyroid enlargement, nontender, no masses palpated. Negative for JVD Chest: Normal AP diameter and contour without kyphoscoliosis, no nasal flaring, retractions, or tachypneic labored Lungs: Auscultation of all lung north coarse decreased crackles in bilateral bases poor air exchange. Cardio: S1 & S2 with regular rate and rhythm without murmur, rubs, or gallops, no carotid bruit, no cardiac pulsations present. Abdomen: Soft, severe upper right quadrant tenderness, rebound tenderness, bowel sounds are extremely faint in all 4 quadrants Musculoskeletal: Muscle strength and tone are equal within normal limits, no deformity, crepitus, effusions, cyanosis, clubbing or edema present. Full range of motion intact radial and pedal pulses are normal. Skin: Warm dry and intact without rashes, ulcerations or petechiae. Neuro: Alert and orientated x3, moves all extremities, sensation to touch intact, no gross deficits noted of cranial nerves. Psych: Patient has poorly groomed, disheveled appearance, confused mumbling i ncoherent. Objective Labs Result Diagrams: 10/30/22 16:10 10/31/22 02:25 Labs: Laboratory Results - last 24 hr 10/30/22 10/30/22 10/30/22 16:10 16:10 16:10 WBC 23.7 H RBC 3.84 L Hgb 10.9 L Hct 32.3 L MCV 84.0 MCH 28.5 MCHC 33.9 RDW 13.9 Plt Count 692 H Neut % (Auto) 86.7 H Lymph % (Auto) 3.0 L [place] % (Auto) 9.9 Eos % (Auto) 0.0 L Baso % (Auto) 0.4 Neut # (Auto) 81785 H Lymph # (Auto) 700 L [place] # (Auto) 2300 H Eos # (Auto) 0 Baso # (Auto) 100 PT INR APTT VBG pH VBG pCO2 VBG HCO3 VBG Total CO2 VBG Base Excess Sodium 129 L Potassium 2.8 L Chloride 86 L Carbon Dioxide 30 BUN 9 Creatinine 0.54 L Estimated GFR > 60 BUN/Creatinine Ratio 16.7 Glucose 257 H Lactate 3.9 H Calcium 8.9 Magnesium Total Bilirubin 0.5 AST 19 ALT 16 Alkaline Phosphatase 187 H Total Protein 7.7 Albumin 3.3 L Globulin 4.4 H Albumin/Globulin Ratio 0.8 L Lipase 16 L Urine Color Urine Appearance Urine pH Ur Specific [place] Urine Protein Urine Glucose (UA) Urine Ketones Urine Occult Blood Urine Nitrate Urine Bilirubin Urine Urobilinogen Ur Leukocyte Esterase Urine RBC Urine WBC Ur Squamous Epith Cells Urine Bacteria Ur Culture Indicated? SARS-CoV-2 (PCR) Influenza A (RT-PCR) Influenza B (RT-PCR) RSV (PCR) 10/30/22 10/30/22 10/30/22 16:10 16:10 16:20 WBC RBC Hgb Hct MCV MCH MCHC RDW Plt Count Neut % (Auto) Lymph % (Auto) [place] % (Auto) Eos % (Auto) Baso % (Auto) Neut # (Auto) Lymph # (Auto) [place] # (Auto) Eos # (Auto) Baso # (Auto) PT 15.5 H INR 1.3 APTT 43 H VBG pH VBG pCO2 VBG HCO3 VBG Total CO2 VBG Base Excess Sodium Potassium Chloride Carbon Dioxide BUN Creatinine Estimated GFR BUN/Creatinine Ratio Glucose Lactate Calcium Magnesium 1.3 L Total Bilirubin AST ALT Alkaline Phosphatase Total Protein Albumin Globulin Albumin/Globulin Ratio Lipase Urine Color Yellow Urine Appearance Clear Urine pH 5.5 Ur Specific [place] 1.015 Urine Protein 1+ H Urine Glucose (UA) 1+ H Urine Ketones Trace H Urine Occult Blood 3+ H Urine Nitrate Negative Urine Bilirubin Negative Urine Urobilinogen 0.2 Ur Leukocyte Esterase Negative Urine RBC 1-5/hpf Urine WBC 1-5/hpf Ur Squamous Epith Cells 0-1 /hpf Urine Bacteria Occasional (0-1) Ur Culture Indicated? Cult not indicated SARS-CoV-2 (PCR) Influenza A (RT-PCR) Influenza B (RT-PCR) RSV (PCR) 10/30/22 10/30/22 10/30/22 17:51 18:36 19:25 WBC RBC Hgb Hct MCV MCH MCHC RDW Plt Count Neut % (Auto) Lymph % (Auto) [place] % (Auto) Eos % (Auto) Baso % (Auto) Neut # (Auto) Lymph # (Auto) [place] # (Auto) Eos # (Auto) Baso # (Auto) PT INR APTT VBG pH 7.36 VBG pCO2 46.6 VBG HCO3 26 VBG Total CO2 28 VBG Base Excess 1.0 Sodium Potassium Chloride Carbon Dioxide BUN Creatinine Estimated GFR BUN/Creatinine Ratio Glucose Lactate 5.0 H* Calcium Magnesium Total Bilirubin AST ALT Alkaline Phosphatase Total Protein Albumin Globulin Albumin/Globulin Ratio Lipase Urine Color Urine Appearance Urine pH Ur Specific [place] Urine Protein Urine Glucose (UA) Urine Ketones Urine Occult Blood Urine Nitrate Urine Bilirubin Urine Urobilinogen Ur Leukocyte Esterase Urine RBC Urine WBC Ur Squamous Epith Cells Urine Bacteria Ur Culture Indicated? SARS-CoV-2 (PCR) Negative Influenza A (RT-PCR) Flu a positive H Influenza B (RT-PCR) Flu b negative RSV (PCR) Negative 12/07/22 02:25 WBC RBC Hgb Hct MCV MCH MCHC RDW Plt Count Neut % (Auto) Lymph % (Auto) [place] % (Auto) Eos % (Auto) Baso % (Auto) Neut # (Auto) Lymph # (Auto) [place] # (Auto) Eos # (Auto) Baso # (Auto) PT INR APTT VBG pH VBG pCO2 VBG HCO3 VBG Total CO2 VBG Base Excess Sodium 133 L Potassium 3.0 L Chloride 92 L Carbon Dioxide 32 BUN 6 L Creatinine 0.51 L Estimated GFR > 60 BUN/Creatinine Ratio 11.8 Glucose 136 H D Lactate Calcium 8.1 L Magnesium Total Bilirubin 0.5 AST 20 ALT 14 Alkaline Phosphatase 163 H Total Protein 7.2 Albumin 3.2 L Globulin 4.0 Albumin/Globulin Ratio 0.8 L Lipase Urine Color Urine Appearance Urine pH Ur Specific [place] Urine Protein Urine Glucose (UA) Urine Ketones Urine Occult Blood Urine Nitrate Urine Bilirubin Urine Urobilinogen Ur Leukocyte Esterase Urine RBC Urine WBC Ur Squamous Epith Cells Urine Bacteria Ur Culture Indicated? SARS-CoV-2 (PCR) Influenza A (RT-PCR) Influenza B (RT-PCR) RSV (PCR) Assessment & Plan Assessment & Plan narrative: José Miguel Do 61-year-old male with past medical history hypertension, ankylosing spondylitis, alcohol use disorder, daily heroin use presents to the ED with 1 day of acute onset abdominal pain.? Patient states that he was diagnosed with the flu last week, was sent to the ED for an x-ray to rule out pneumonia. Patient met SIRS criteria in ED. patient did not meet sofa/sepsis criteria upon admit. I found patient to be in severe and escalating withdrawal symptoms while in the emergency department. Patient admitted for pneumonia, lactic acidosis, influenza a, heroin and alcohol withdrawal, patient had a sofa score: 0 on admit. 1. Pneumonia, likely bacterial, superimposed on influenza a, acute, present on admission -WBC 23.7, neutrophils 2500, mono 2300 CT of ABD pelvis:Scattered consolidations in both lungs with a lower lung field predominant distribution.? Overall this is mildly worsened.? This is most consistent with multifocal pneumonia. Bronchial wall thickening, distal mucus airway plugging, and possible bronchiectasis or cavitation at the lingula. Trace left pleural effusion. Right supraclavicular and right upper paratracheal adenopathy.? These are indeterminate.? Shotty mediastinal lymph nodes. Thickening of the adrenal glands, new.? This could be seen in the setting of adrenal hyperplasia or adrenal hemorrhage. No small bowel obstruction.? Diverticulosis.? No diverticulitis.? No free fluid. Findings of ankylosis spondylitis or DISH.? -patient was evaluated by tele harness installer Dr. Cobos as a possible ICU admit -patient was given Zosyn and omeprazole in ED, patient was initiated on Rocephin and Linezolid -Tamiflu ordered -respiratory consult supportive treatment measures,, DuoNeb, prednisone 40 mg q.day, Tamiflu, -blood cultures pending, urine culture pending, respiratory panel, Legionella 2.Lactic acidosis, acute, present on admission -repeat lactic acid q.4 hours per standard lab protocol, initially 30 minutes following initial fluid bolus -trend continue hydration status, rule out other sources of infection 3.. Alcohol and heroin withdrawal symptoms in the setting of chronic alcohol and heroin use, acute on chronic, present on admission -critical care admit as a required [id number] bedside admit for greater than 30 minutes. -patient admitted under alcohol withdrawal protocol, seizure precautions, aspiration precautions, fall precautions -NPO: patient complaining of severe abdominal pain, significant vomiting and retching Thiamine and folate supplement provided Patient was chronically and loudly retching and vomiting-NPO may progress as tolerated -supportive measures antiemetics, phenobarbital IV provided and Ativan IM provided as needed as needed for management of significant withdrawal symptoms, Dr. Mccarthy graciously agreed to direct dosing regimen while the patient is in the ED department patient's escalation and behavior removing IV lines required a soft wrist restraint order and patient requires 1 on 1 monitoring for safety. -potassium 2.8, patient given potassium supplementation via oral and IV piggyback patient may have vomited up oral potassium, we will continue to run riders, he did at 1 point ripped out his IV and spilled some of his IV potassium supplementation. -sodium 129: Patient receiving IV NS fluids was also given sepsis bolus in ED, trach electrolytes and reassess in the a.m.. -non violent soft wrist restraints as patient continues to get out of bed without his IVs concern for safety and so that he can get appropriate medication especially potassium supplementation. 4. Essential hypertension, acute on chronic, present on admission -holding patient's metoprolol p.o., IV metoprolol per instructions until vomiting stops As evidence by BMI of 23 -patient's malnutrition places them at high risk for medical and surgical complications because of the severe malnutrition in relation to acute illness/chronic illness. This increases the difficulty in complexity of medical management and increases the chances poor outcomes such as mortality and morbidity as well as impaired wound healing, and immune suppression. -dietary consult ordered to evaluate and implement steps to improve caloric intake and nutrition. To include alcohol nutritional substance Code status: Full Surrogate decision maker: Daughter andrea MILLER PCR: Negative DVT/VTE prophylaxis Lovenox and SCDs: Disposition: Patient admitted to acute care, expected length of stay greater than 2 midnights I have utilized all available immediate resources to obtain, update, or review the patient's current medications. I confirmed that the patient's advanced care plan is present, Code status is documented and/or surrogate decision maker is listed in the patient's medical record. I have personally reviewed patient's chart notes from PCP, specialists, diagnostic imaging, and laboratory, Time Spent With Patient Critical Care time: I spent a total of [] minutes of critical care time on this patient's care today; this time is exclusive of procedural time.
[2022-10-31 07:17] LABS: Add Manual Diff / Slide Review NO; Basophils Absolute Auto 0 /uL (0-100); Basophils Percent Auto 0.2 % (0-2); Eosinophils Absolute Auto 0 /uL (0-450); Hematocrit 30.9 % (41-53); Hemoglobin 10.9 g/dL (13.5-17.5); Lymphocytes Absolute Auto 1000 /uL (1100-4500); Lymphocytes Percent Auto 4.2 % (25-40); Mean Corpuscular HGB Conc 35.3 % (30-36); Mean Corpuscular Hemoglobin 29.3 PG (26-34); Mean Corpuscular Volume 82.9 fL (80-100); Monocytes Absolute Auto 2200 /uL (0-900); Monocytes Percent Auto 8.7 % (3-14); Neutrophils Absolute Auto 21600 /uL (1500-7000); Neutrophils Percent Auto 86.9 % (50-75); Platelet Count 522 X10^3/uL (150-400); Red Blood Cell Count 3.73 X10^6/uL (4.5-5.9); Red Cell Distribution Width 13.9 % (11.6-14.8); White Blood Cell Count 24.9 X10^3/uL (4.5-11.0)
[2022-10-31 07:21] LABS: Lactate (Lactic Acid) 1.4 mmol/L (0.7-2.1)
[2022-10-31 07:52] LABS: Alanine Aminotransferase 11 IU/L (<50); Albumin Globulin Ratio 0.8 (1.0-2.8); Alkaline Phosphatase 153 U/L (38-126); Aspartate Aminotransferase 28 IU/L (17-59); BUN Creatinine Ratio 9.4 (6-22); Bilirubin Total 0.4 mg/dL (0.2-1.3); Blood Urea Nitrogen 5 mg/dL (9-20); Calcium 7.8 mg/dL (8.4-10.2); Carbon Dioxide 30 mmol/L (22-32); Chloride 93 mmol/L (98-107); Estimated Glomerular Filt Rate > 60 mL/min (>60); Globulin 3.8 g/dL (1.7-4.1); Glucose 147 mg/dL (80-110); HEMOLYSIS 19 (0-50); Potassium 3.2 mmol/L (3.4-5.1); Sodium 130 mmol/L (137-145); Total Protein 6.8 g/dL (6.3-8.2)
[2022-10-31 08:00] LABS: NT-proBNP (BNP-Adult 18+) 9880 pg/mL (<125)
[2022-10-31] MEDS: ENOXAPARIN 40 MG/0.4 ML SYRINGE SUBCUT (10:12)
[2022-10-31] MEDS: NICOTINE 7 MG PATCH TOP (10:13)
[2022-10-31] MEDS: THIAMINE 100 MG in SODIUM CHLORIDE 0.9% 100 ML 404 MG IV (10:13)
[2022-10-31 10:17] LABS: Hemoglobin A1C% w Est Avg Glu 5.8 % (4.0-6.0)
--- NOTE | 2022-10-31 11:53 | PC.NURSE ---
Addendum entered by José Miguel Concepcion R.N. 10/31/22 17:21: Patient was quite restless and impulsive upon transfer to floor. Administered 130mg pheno. per MAR. Patient was mostly manageable thanks to the 1:1 sitter. Patient check was performed and a distinct lack of restlessness was noted. Patient slightly ledesma and taking fast, shallow breaths. Unresponsive, unable to capture accurate O2 sat. Placed on non-rebreather, RT contacted, Dr. Henning contacted. ABG taken by RT. Juvencio made call to intubate. Several minutes passed waiting for someone who was willing to intubate patient, at least 30 minutes, unsure of exact time. RT at bedside until and through intubation. Eventually, intubation was performed. Placed hidalgo, OG tube, and restraints per Dr. Freeman and hospital protocol. Original Note: Patient unable to respond, moans and/or makes noises in response to all stimuli. Breathing rather wet and gurgly, needs a good cough or three, positioned upright with suction at bedside.
[2022-10-31] MEDS: POTASSIUM CHLORIDE IN WATER 10 MEQ/100 ML PIGGYBACK 100 MEQ IV ×4 (12:36→18:42)
[2022-10-31] MEDS: MAGNESIUM SULFATE 2 GM/50 ML PIGGYBACK IV (12:36)
--- NOTE | 2022-10-31 12:37 | PM.PN.1 ---
Subjective Subjective Date Patient Seen: 10/31/22 Interval history: 61-year-old male with recent influenza diagnosis, alcoholism, heroin use, hypertension, ankylosing spondylitis presented with complaints of acute abdominal pain, noted to be confused, with bilateral infiltrates on lung imaging. Patient is moaning in bed and extremely disoriented. Currently on 4.5 L O2 nasal cannula. Exam Vital Signs (past 8 hours): - 10/31/22 04:42 10/31/22 04:43 10/31/22 04:43 Temperature Pulse Rate 111 H 117 H Respiratory Rate 20 Blood Pressure 141/81 H Pulse Oximetry 100 95 Oxygen Flow Rate 10/31/22 05:00 10/31/22 05:00 10/31/22 05:30 Temperature Pulse Rate 106 H Respiratory Rate Blood Pressure 125/87 172/83 H Pulse Oximetry 94 Oxygen Flow Rate 10/31/22 05:30 10/31/22 06:00 10/31/22 06:00 Temperature Pulse Rate 104 H 109 H Respiratory Rate Blood Pressure 131/86 Pulse Oximetry 94 84 L Oxygen Flow Rate 10/31/22 06:30 10/31/22 06:30 10/31/22 07:00 Temperature Pulse Rate 126 H Respiratory Rate Blood Pressure 143/95 H 134/97 H Pulse Oximetry 85 L Oxygen Flow Rate 10/31/22 07:00 10/31/22 07:30 10/31/22 07:31 Temperature Pulse Rate 120 H 119 H Respiratory Rate Blood Pressure 152/82 H Pulse Oximetry 84 L 94 Oxygen Flow Rate 10/31/22 07:31 10/31/22 08:00 10/31/22 08:22 Temperature Pulse Rate 112 H 121 H Respiratory Rate Blood Pressure 141/91 H Pulse Oximetry 95 83 L Oxygen Flow Rate 10/31/22 08:22 10/31/22 08:30 10/31/22 08:30 Temperature Pulse Rate 113 H 106 H Respiratory Rate Blood Pressure 137/84 Pulse Oximetry 87 L 85 L Oxygen Flow Rate 10/31/22 09:00 10/31/22 09:00 10/31/22 09:30 Temperature Pulse Rate 118 H Respiratory Rate Blood Pressure 132/85 132/90 Pulse Oximetry 88 L Oxygen Flow Rate 10/31/22 09:30 10/31/22 10:00 10/31/22 10:00 Temperature Pulse Rate 114 H 112 H Respiratory Rate Blood Pressure 149/97 H Pulse Oximetry 95 92 Oxygen Flow Rate 10/31/22 10:30 10/31/22 10:30 10/31/22 11:00 Temperature Pulse Rate 95 H Respiratory Rate Blood Pressure 145/85 H 158/97 H Pulse Oximetry 100 Oxygen Flow Rate 10/31/22 11:00 10/31/22 12:00 Temperature 98.6 F Pulse Rate 127 H 132 H Respiratory Rate 26 H Blood Pressure 153/98 H Pulse Oximetry 88 L 98 Oxygen Flow Rate 4 Oxygen Delivery Method Nasal Cannula Oxygen Flow Rate 4 Narrative Exam Narrative: General: Patient appears uncomfortable, moaning, not responsive to verbal commands. HEENT: Pupils equal and reactive, anicteric, poor dentition Lungs: Bilateral coarse crackles throughout Heart: Regular rhythm Abdomen: Nondistended but seems diffusely tender with patient grimacing on deep palpation Extremities: No cyanosis or edema Neurological: As noted, disoriented and unresponsive, no localizing signs Skin: No rash or petechiae Objective Labs Result Diagrams: 10/31/22 06:46 10/31/22 06:46 Labs: Laboratory Results - last 24 hr 10/30/22 10/30/22 10/30/22 16:10 16:10 16:10 WBC 23.7 H RBC 3.84 L Hgb 10.9 L Hct 32.3 L MCV 84.0 MCH 28.5 MCHC 33.9 RDW 13.9 Plt Count 692 H Neut % (Auto) 86.7 H Lymph % (Auto) 3.0 L Churchill % (Auto) 9.9 Eos % (Auto) 0.0 L Baso % (Auto) 0.4 Neut # (Auto) 41803 H Lymph # (Auto) 700 L Churchill # (Auto) 2300 H Eos # (Auto) 0 Baso # (Auto) 100 PT INR APTT VBG pH VBG pCO2 VBG HCO3 VBG Total CO2 VBG Base Excess Sodium 129 L Potassium 2.8 L Chloride 86 L Carbon Dioxide 30 BUN 9 Creatinine 0.54 L Estimated GFR > 60 BUN/Creatinine Ratio 16.7 Glucose 257 H Hemoglobin A1c Lactate 3.9 H Calcium 8.9 Magnesium Total Bilirubin 0.5 AST 19 ALT 16 Alkaline Phosphatase 187 H NT-Pro-B Natriuret Pep Total Protein 7.7 Albumin 3.3 L Globulin 4.4 H Albumin/Globulin Ratio 0.8 L Lipase 16 L Urine Color Urine Appearance Urine pH Ur Specific Nimitz Urine Protein Urine Glucose (UA) Urine Ketones Urine Occult Blood Urine Nitrate Urine Bilirubin Urine Urobilinogen Ur Leukocyte Esterase Urine RBC Urine WBC Ur Squamous Epith Cells Urine Bacteria Ur Culture Indicated? SARS-CoV-2 (PCR) Influenza A (RT-PCR) Influenza B (RT-PCR) RSV (PCR) 10/30/22 10/30/22 10/30/22 16:10 16:10 16:10 WBC RBC Hgb Hct MCV MCH MCHC RDW Plt Count Neut % (Auto) Lymph % (Auto) Churchill % (Auto) Eos % (Auto) Baso % (Auto) Neut # (Auto) Lymph # (Auto) Churchill # (Auto) Eos # (Auto) Baso # (Auto) PT 15.5 H INR 1.3 APTT 43 H VBG pH VBG pCO2 VBG HCO3 VBG Total CO2 VBG Base Excess Sodium Potassium Chloride Carbon Dioxide BUN Creatinine Estimated GFR BUN/Creatinine Ratio Glucose Hemoglobin A1c 5.8 Lactate Calcium Magnesium 1.3 L Total Bilirubin AST ALT Alkaline Phosphatase NT-Pro-B Natriuret Pep Total Protein Albumin Globulin Albumin/Globulin Ratio Lipase Urine Color Urine Appearance Urine pH Ur Specific Nimitz Urine Protein Urine Glucose (UA) Urine Ketones Urine Occult Blood Urine Nitrate Urine Bilirubin Urine Urobilinogen Ur Leukocyte Esterase Urine RBC Urine WBC Ur Squamous Epith Cells Urine Bacteria Ur Culture Indicated? SARS-CoV-2 (PCR) Influenza A (RT-PCR) Influenza B (RT-PCR) RSV (PCR) 10/30/22 10/30/22 10/30/22 16:20 17:51 18:36 WBC RBC Hgb Hct MCV MCH MCHC RDW Plt Count Neut % (Auto) Lymph % (Auto) Churchill % (Auto) Eos % (Auto) Baso % (Auto) Neut # (Auto) Lymph # (Auto) Churchill # (Auto) Eos # (Auto) Baso # (Auto) PT INR APTT VBG pH 7.36 VBG pCO2 46.6 VBG HCO3 26 VBG Total CO2 28 VBG Base Excess 1.0 Sodium Potassium Chloride Carbon Dioxide BUN Creatinine Estimated GFR BUN/Creatinine Ratio Glucose Hemoglobin A1c Lactate Calcium Magnesium Total Bilirubin AST ALT Alkaline Phosphatase NT-Pro-B Natriuret Pep Total Protein Albumin Globulin Albumin/Globulin Ratio Lipase Urine Color Yellow Urine Appearance Clear Urine pH 5.5 Ur Specific Nimitz 1.015 Urine Protein 1+ H Urine Glucose (UA) 1+ H Urine Ketones Trace H Urine Occult Blood 3+ H Urine Nitrate Negative Urine Bilirubin Negative Urine Urobilinogen 0.2 Ur Leukocyte Esterase Negative Urine RBC 1-5/hpf Urine WBC 1-5/hpf Ur Squamous Epith Cells 0-1 /hpf Urine Bacteria Occasional (0-1) Ur Culture Indicated? Cult not indicated SARS-CoV-2 (PCR) Negative Influenza A (RT-PCR) Flu a positive H Influenza B (RT-PCR) Flu b negative RSV (PCR) Negative 10/30/22 10/31/22 10/31/22 19:25 02:25 06:46 WBC 24.9 H RBC 3.73 L Hgb 10.9 L Hct 30.9 L MCV 82.9 MCH 29.3 MCHC 35.3 RDW 13.9 Plt Count 522 H Neut % (Auto) 86.9 H Lymph % (Auto) 4.2 L Churchill % (Auto) 8.7 Eos % (Auto) 0.0 L Baso % (Auto) 0.2 Neut # (Auto) 94578 H Lymph # (Auto) 1000 L Churchill # (Auto) 2200 H Eos # (Auto) 0 Baso # (Auto) 0 PT INR APTT VBG pH VBG pCO2 VBG HCO3 VBG Total CO2 VBG Base Excess Sodium 133 L Potassium 3.0 L Chloride 92 L Carbon Dioxide 32 BUN 6 L Creatinine 0.51 L Estimated GFR > 60 BUN/Creatinine Ratio 11.8 Glucose 136 H D Hemoglobin A1c Lactate 5.0 H* Calcium 8.1 L Magnesium Total Bilirubin 0.5 AST 20 ALT 14 Alkaline Phosphatase 163 H NT-Pro-B Natriuret Pep Total Protein 7.2 Albumin 3.2 L Globulin 4.0 Albumin/Globulin Ratio 0.8 L Lipase Urine Color Urine Appearance Urine pH Ur Specific Nimitz Urine Protein Urine Glucose (UA) Urine Ketones Urine Occult Blood Urine Nitrate Urine Bilirubin Urine Urobilinogen Ur Leukocyte Esterase Urine RBC Urine WBC Ur Squamous Epith Cells Urine Bacteria Ur Culture Indicated? SARS-CoV-2 (PCR) Influenza A (RT-PCR) Influenza B (RT-PCR) RSV (PCR) 10/31/22 10/31/22 06:46 06:46 WBC RBC Hgb Hct MCV MCH MCHC RDW Plt Count Neut % (Auto) Lymph % (Auto) Churchill % (Auto) Eos % (Auto) Baso % (Auto) Neut # (Auto) Lymph # (Auto) Churchill # (Auto) Eos # (Auto) Baso # (Auto) PT INR APTT VBG pH VBG pCO2 VBG HCO3 VBG Total CO2 VBG Base Excess Sodium 130 L Potassium 3.2 L Chloride 93 L Carbon Dioxide 30 BUN 5 L Creatinine 0.53 L Estimated GFR > 60 BUN/Creatinine Ratio 9.4 Glucose 147 H Hemoglobin A1c Lactate 1.4 Calcium 7.8 L Magnesium Total Bilirubin 0.4 AST 28 ALT 11 Alkaline Phosphatase 153 H NT-Pro-B Natriuret Pep 9880 H Total Protein 6.8 Albumin 3.0 L Globulin 3.8 Albumin/Globulin Ratio 0.8 L Lipase Urine Color Urine Appearance Urine pH Ur Specific [place] Urine Protein Urine Glucose (UA) Urine Ketones Urine Occult Blood Urine Nitrate Urine Bilirubin Urine Urobilinogen Ur Leukocyte Esterase Urine RBC Urine WBC Ur Squamous Epith Cells Urine Bacteria Ur Culture Indicated? SARS-CoV-2 (PCR) Influenza A (RT-PCR) Influenza B (RT-PCR) RSV (PCR) [facility] Medical History Acid reflux Alcohol abuse Ankle pain Ankylosing spondylitis (1985) Ankylosing spondylitis Chronic back pain Foot pain Fracture cervical vertebra-closed GERD (gastroesophageal reflux disease) Hypertension Hypertension Muscle pain Tobacco use disorder, moderate, in early remission Surgical History History of open reduction and internal fixation (ORIF) procedure (2005) History of tonsillectomy Status post colonoscopy (2012) Status post incision and drainage Family History Father No problems noted. Mother Cancer Other Alcoholism Colorectal cancer Social History Smoking Status: Current every day smoker Assessment & Plan Assessment & Plan narrative: 1. Bilateral pneumonia, likely superimposed bacterial, with antecedent influenza A -patient hypoxic, elevated WBC, bilateral consolidation on CT imaging -negative blood and urine cultures -10/31 discontinued Rocephin and linezolid -10/31 started Zosyn and vancomycin to treat for mixed organisms and MRSA -follow CBC 2. Acute hypoxic respiratory failure -currently requiring 4.5 L nasal cannula -continue O2 support and treatment of underlying pneumonia 3. Possible sepsis with acute end-organ failure -presented with pneumonia, elevated lactate, elevated WBC, tachycardic, hypoxic though not hypotensive -treat underlying source of infection -continue NS 100 cc/hour volume support 4. Acute metabolic encephalopathy and alcohol withdrawal -continue lorazepam as needed per [facility] protocol -also received phenobarbital in the ED, continue phenobarbital 130 mg IV as needed for severe agitation -NPO due to severe altered mental status -thiamine IV 5. Chronic hypertension -patient on oral metoprolol at home -substitute metoprolol 5 mg IV q.6 hours while patient NPO -telemetry Code status: Full code Surrogate decision maker: Daughter Elana Do DVT prophylaxis: Enoxaparin, SCDs Time Spent With Patient Critical Care time: I spent a total of [] minutes of critical care time on this patient's care today; this time is exclusive of procedural time.
[2022-10-31 13:03] LABS: Magnesium 1.2 mg/dL (1.6-2.3)
[2022-10-31] MEDS: METOPROLOL TARTRATE 5 MG/5 ML INJ IV (13:07)
[2022-10-31] MEDS: PIPERACILLIN/TAZO 3.375 GM in SODIUM CHLORIDE 0.9% 100 ML IV ×2 (13:09→22:05)
[2022-10-31] MEDS: PANTOPRAZOLE 40 MG VIAL IV ×2 (14:30→22:13)
--- NOTE | 2022-10-31 14:30 | DI.RAD.S_ITS ---
PROCEDURE: XR CHEST 1V INDICATIONS: NG tube and ET tube placement, Respiratory failure TECHNIQUE: One view of the chest was acquired. COMPARISON: [facility], CR, XR CHEST 2V, 10/30/2022, 15:38. FINDINGS: Surgical changes and devices: Cervical thoracic fixation rods are present. Nasogastric tube is present projecting below the left hemidiaphragm. Endotracheal tube is present at the roxi. Lungs and pleura: Unchanged bilateral pulmonary opacities with mild appearance of increased left effusion. Entire right base is not included within the field of view, limiting evaluation. Mediastinum: Mediastinal contours appear normal. Heart size is normal. Bones and chest wall: No suspicious bony lesions. Overlying soft tissues appear unremarkable. IMPRESSION: Persistent appearance of bilateral opacities and increasing effusion most suggestive of pneumonia. Support lines as above. Dictated by: Nasima Goncalves M.D. on 10/31/2022 at 16:23 Approved by: Nasima Goncalves M.D. on 10/31/2022 at 16:24
[2022-10-31] MEDS: KETAMINE 500 MG/5 ML INJ (14:36)
[2022-10-31] MEDS: ROCURONIUM 50 MG/5 ML INJ 60 MG IV (14:36)
--- NOTE | 2022-10-31 14:53 | PM.PROC.1 ---
Procedures Date/Time Date of procedure: 10/31/22 Time of procedure: 14:00 General Procedure description: Called to ICU for help with securing airway in this individual with respiratory failure and admission for alcohol withdrawal Intubation Time out performed: Yes Sedative: ketamine Mg given: 65 Paralytic: rocuronium Mg given: 65 Laryngoscope: other (Glidescope) Assist device used: Bougie ET tube size: 8 ET tube uncuffed: No Tube secured depth (cm): 25 Tube secured location: teeth Tube placement confirmation: visualized tube passing through cords, equal breath sounds bilaterally, no breath sounds over epigastrium and confirmation by capnometry Patient tolerated procedure: well Intubation complications: other (initial ETT had cuff leak, quickly swapped out using Bougie )
--- NOTE | 2022-10-31 14:54 | PM.EVENT ---
Event Note Date Patient Seen: 10/31/22 Time Patient Seen: 14:54 Event Note (Rapid Response, Code, or fall): Patient was brought to the ICU unresponsive and hypotension. He was given 1 liter NS bolus and emergently intubated. Started on propofol gtt. Added fentanyl 25 mcg IV q1hr prn vent dyssynchrony and severe pain. Check ABG and CXR post intubation. Repeat CMP, CBC, and lactic acid. Follow up cx data. D/w RN at bedside.
[2022-10-31] MEDS: fentaNYL 100 MCG/2 ML INJ 23 MCG IV (15:03)
--- NOTE | 2022-10-31 15:11 | PM.EVENT ---
Event Note Date Patient Seen: 10/31/22 Time Patient Seen: 14:00 Event Note (Rapid Response, Code, or fall): Patient was noted to have drop in O2 sats and becoming less responsive. His blood gas showed dec pH, hypercapnic and hypoxemia on non-rebreather. Subsequently he was intubated and tele ICU physician consulted. Etiology of worsening respiratory failure is likely combination of his pneumonia and hypoventilation from sedatives given for ETOH withdrawal.
[2022-10-31] MEDS: propofoL 1,000 MG/100 ML VIAL 1.965 MG IV (15:15)
[2022-10-31 15:26] LABS: Hematocrit 34.2 % (41-53); Hemoglobin 11.5 g/dL (13.5-17.5); Mean Corpuscular HGB Conc 33.8 % (30-36); Mean Corpuscular Hemoglobin 28.3 PG (26-34); Mean Corpuscular Volume 83.8 fL (80-100); Platelet Count 504 X10^3/uL (150-400); Red Blood Cell Count 4.08 X10^6/uL (4.5-5.9); Red Cell Distribution Width 13.9 % (11.6-14.8)
[2022-10-31 15:28] LABS: HCO3 ABG 27 mmol/L (22-26); PCO2 ABG 67.8 mmHg (35-45); PO2 ABG 49 mmHg (80-100); TCO2 ABG 29 mmol/L (21-31)
[2022-10-31 15:29] LABS: Fractionated Inspired Oxygen 100; Oxygen Saturation ABG 75 % (95-100); pH ABG 7.21 (7.35-7.45)
[2022-10-31 15:31] LABS: Add Manual Diff / Slide Review YES
[2022-10-31 15:35] LABS: Lactate (Lactic Acid) 1.9 mmol/L (0.7-2.1)
[2022-10-31 15:36] LABS: Alanine Aminotransferase 14 IU/L (<50); Albumin 2.7 g/dL (3.5-5.0); Albumin Globulin Ratio 0.7 (1.0-2.8); Alkaline Phosphatase 152 U/L (38-126); Aspartate Aminotransferase 31 IU/L (17-59); BUN Creatinine Ratio 12.1 (6-22); Bilirubin Total 0.5 mg/dL (0.2-1.3); Blood Urea Nitrogen 8 mg/dL (9-20); Calcium 7.4 mg/dL (8.4-10.2); Carbon Dioxide 28 mmol/L (22-32); Chloride 95 mmol/L (98-107); Estimated Glomerular Filt Rate > 60 mL/min (>60); Globulin 3.7 g/dL (1.7-4.1); Glucose 124 mg/dL (80-110); HEMOLYSIS < 15 (0-50); Potassium 3.4 mmol/L (3.4-5.1); Sodium 133 mmol/L (137-145); Total Protein 6.4 g/dL (6.3-8.2)
[2022-10-31 15:43] LABS: Neutrophils Absolute Manual 26680 /uL (3000-5900); Total Cells Counted 100
[2022-10-31 15:44] LABS: RBC Morphology Norm
[2022-10-31] MEDS: SODIUM CHLORIDE 0.9% 500 ML 1000 ML IV (15:55)
[2022-10-31] MEDS: fentaNYL 1,000 MCG in DEXTROSE 5% IN WATER 230 ML 11.463 MCG IV (16:01)
[2022-10-31 16:22] LABS: Fractionated Inspired Oxygen 70; HCO3 ABG 29 mmol/L (22-26); Oxygen Saturation ABG 97 % (95-100); PCO2 ABG 57.8 mmHg (35-45); PO2 ABG 103 mmHg (80-100); TCO2 ABG 31 mmol/L (21-31); pH ABG 7.31 (7.35-7.45)
[2022-10-31] MEDS: LACTATED RINGERS 1,000 ML 1000 ML IV (18:18)
[2022-10-31] MEDS: CHLORHEXIDINE GLUCONATE 15 ML CUP PO (18:20)
[2022-10-31] MEDS: VANCOMYCIN 1,000 MG/200 ML PIGGYBACK 200 MG IV (19:31)
--- NOTE | 2022-10-31 20:30 | PM.EVENT ---
Event Note Date Patient Seen: 10/31/22 Time Patient Seen: 20:31 Event Note (Rapid Response, Code, or fall): Patient is intubated and sedated. Noted to be tachycardia w/ HR 140s which improved with fluids. Currently on propofol 40 mcg and fentanyl 0.7mcg/kg/hr. Per RN report, patient had ~500 mL coffee ground emesis from OGT output. DC lovenox and start PPi BID. Will check stat H/H and type and screen. Continue titrating FiO2 to maintain goal SpO2 > 88%. D/w RN at bedside.
[2022-10-31] MEDS: AZITHROMYCIN 500 MG in DEXTROSE 5% IN WATER 250 ML 250 MG IV (22:04)
[2022-10-31 22:17] LABS: Hematocrit 34.4 % (41-53); Hemoglobin 11.6 g/dL (13.5-17.5)
[2022-10-31] MEDS: propofoL 1,000 MG/100 ML VIAL 17.685 MG IV (22:31)
[2022-11-01] VITALS (100 sets, daily range): BP systolic 55–135; BP diastolic 30–91; PULSE 73–121; RESP 23–48; TEMP 36.4–37.4; O2SAT 93–100
[2022-11-01] MEDS: CHLORHEXIDINE GLUCONATE 15 ML CUP PO ×4 (01:11→17:07)
[2022-11-01 02:36] LABS: Vancomycin Peak 10.8 ug/mL (20-40)
[2022-11-01] MEDS: VANCOMYCIN 1,000 MG/200 ML PIGGYBACK 200 MG IV ×3 (03:07→17:15)
[2022-11-01] MEDS: LORazepam 2 MG/ML INJ 1 MG IV (03:08)
[2022-11-01] MEDS: propofoL 1,000 MG/100 ML VIAL 17.685 MG IV (03:18)
[2022-11-01] MEDS: ONDANSETRON 4 MG/2 ML INJ IV (03:58)
[2022-11-01] MEDS: HYDROMORPHONE 1 MG INJ IV (03:58)
[2022-11-01] MEDS: PIPERACILLIN/TAZO 3.375 GM in SODIUM CHLORIDE 0.9% 100 ML IV ×3 (04:58→20:43)
[2022-11-01 06:36] LABS: Add Manual Diff / Slide Review NO; Basophils Absolute Auto 0 /uL (0-100); Basophils Percent Auto 0.2 % (0-2); Eosinophils Absolute Auto 0 /uL (0-450); Hematocrit 31.9 % (41-53); Hemoglobin 10.8 g/dL (13.5-17.5); Lymphocytes Absolute Auto 1700 /uL (1100-4500); Lymphocytes Percent Auto 8.1 % (25-40); Mean Corpuscular HGB Conc 33.7 % (30-36); Mean Corpuscular Hemoglobin 28.4 PG (26-34); Mean Corpuscular Volume 84.2 fL (80-100); Monocytes Absolute Auto 1800 /uL (0-900); Monocytes Percent Auto 8.9 % (3-14); Neutrophils Absolute Auto 17100 /uL (1500-7000); Neutrophils Percent Auto 82.8 % (50-75); Platelet Count 441 X10^3/uL (150-400); Red Blood Cell Count 3.79 X10^6/uL (4.5-5.9); Red Cell Distribution Width 13.8 % (11.6-14.8); White Blood Cell Count 20.6 X10^3/uL (4.5-11.0)
[2022-11-01 06:46] LABS: Magnesium 1.7 mg/dL (1.6-2.3)
[2022-11-01 06:48] LABS: Alanine Aminotransferase 12 IU/L (<50); Albumin 2.4 g/dL (3.5-5.0); Albumin Globulin Ratio 0.7 (1.0-2.8); Alkaline Phosphatase 134 U/L (38-126); Aspartate Aminotransferase 28 IU/L (17-59); BUN Creatinine Ratio 19.7 (6-22); Bilirubin Total 0.5 mg/dL (0.2-1.3); Blood Urea Nitrogen 14 mg/dL (9-20); Calcium 7.5 mg/dL (8.4-10.2); Carbon Dioxide 28 mmol/L (22-32); Chloride 98 mmol/L (98-107); Estimated Glomerular Filt Rate > 60 mL/min (>60); Globulin 3.4 g/dL (1.7-4.1); Glucose 104 mg/dL (80-110); HEMOLYSIS 15 (0-50); Potassium 3.4 mmol/L (3.4-5.1); Sodium 131 mmol/L (137-145); Total Protein 5.8 g/dL (6.3-8.2)
[2022-11-01] MEDS: NICOTINE 7 MG PATCH TOP (08:22)
[2022-11-01] MEDS: PANTOPRAZOLE 40 MG VIAL IV ×2 (08:22→20:43)
[2022-11-01] MEDS: THIAMINE 100 MG in SODIUM CHLORIDE 0.9% 100 ML 404 MG IV (08:25)
[2022-11-01] MEDS: SODIUM CHLORIDE 0.9% 1,000 ML 100 ML IV ×2 (08:27→22:35)
--- NOTE | 2022-11-01 09:53 | PM.ICURNDS ---
- Date Patient Seen: 11/01/22 Time Patient Seen: 09:54 :: This patient was seen via real time interactive two-way audiovisual telecommunication. Note: Patient discussed with RN, Pharmacy. Evaluated via Tele-ICU. Prop 45, Fent 90. Failed SAT due to agitation per RN Tachycardic, AF. BP is WNL not on pressors. Satting 100% on vent. Vent settings: VC 390, 5, 26, 35%. Failed SBT earlier today due to agitation per RN OGT with some dark output but not coffee ground today per RN. On LIS. On PPI BID, Folate, Thiamine. Mild hyponatremia to 131. Hgb stable; Lovenox held yesterday due to c/f coffee ground emesis. SCDs in place. MRSA negative. Cx are NGTD. Currently on Vanc, Zosyn, Azithro; Tamiflu 60 BID (per pharmacy can't get 75 pill at their facility) Blood glucose < 180 Recommendations: N: Precedex ordered now with goal to wean Propofol. Continue Fentanyl. Reattempt spontaneous awakening tomorrow. If persistent AMS, consider further diagnostic workup. C: Hold home antihypertensives. MAP goal >65. Start Levophed if needed vs gentle fluid boluses P: Continue on current settings. Follow up daily CXR, blood gas (both are pending today). SBT tomorrow GI: Continue PPI, MV/Thiamine/Folate. OGT to low-intermittent suction. R: Monitor lytes. Replete as needed. Monitor UOP: goal >0.5cc/kg/hour H/O: Hgb stable. SCDs ongoing. Would consider restarting medical VTE prophylaxis and monitoring H/H ID: Would continue Zosyn/Azithromycin. Given negative MRSA, would recommend stopping Vanc. Continue Tamiflu for at least 5 day course, can extend if still critically ill. E: Continue to monitor glucose levels. Goal is <180. If remains NPO, would recommend adding D5 to fluids given c/f ETOH ketosis. Total Critical Care time: 33 minutes Contact Tele-ICU if any change in status. We will continue to follow along.
[2022-11-01] MEDS: fentaNYL 1,000 MCG in DEXTROSE 5% IN WATER 230 ML 11.463 MCG IV (10:26)
[2022-11-01] MEDS: propofoL 1,000 MG/100 ML VIAL 15.72 MG IV (10:27)
[2022-11-01] MEDS: dexmedeTOMIDine in 0.9 % NaCL 400 MCG/100 ML PLAST..BAG IV (10:58)
--- NOTE | 2022-11-01 11:14 | P.PN_ITS ---
Subjective Subjective Date Patient Seen: 11/01/22 Interval history: Patient intubated and sedated. CXR today shows persistent bilateral infiltrates. Exam Vital Signs (past 8 hours): - 11/01/22 03:15 11/01/22 03:15 11/01/22 03:30 Temperature Pulse Rate 118 H Respiratory Rate 31 H Blood Pressure 122/88 122/89 Pulse Oximetry 99 Oxygen Delivery Method 11/01/22 03:30 11/01/22 03:45 11/01/22 03:45 Temperature Pulse Rate 119 H 118 H Respiratory Rate 31 H 32 H Blood Pressure 120/88 Pulse Oximetry 99 99 Oxygen Delivery Method 11/01/22 04:00 11/01/22 04:00 11/01/22 04:15 Temperature 98.8 F Pulse Rate 119 H Respiratory Rate 31 H Blood Pressure 122/91 H 109/76 Pulse Oximetry 99 Oxygen Delivery Method 11/01/22 04:15 11/01/22 04:30 11/01/22 04:30 Temperature Pulse Rate 119 H 119 H Respiratory Rate 31 H 29 H Blood Pressure 109/77 Pulse Oximetry 98 99 Oxygen Delivery Method 11/01/22 04:45 11/01/22 04:45 11/01/22 05:00 Temperature Pulse Rate 118 H 117 H Respiratory Rate 31 H 31 H Blood Pressure 112/80 Pulse Oximetry 99 99 Oxygen Delivery Method 11/01/22 06:00 11/01/22 05:04 11/01/22 05:04 Temperature Pulse Rate 118 H Respiratory Rate 33 H Blood Pressure 108/76 Pulse Oximetry 99 Oxygen Delivery Method Mechanical Ventilation 11/01/22 05:18 11/01/22 05:18 11/01/22 05:30 Temperature Pulse Rate 115 H Respiratory Rate 29 H Blood Pressure 109/81 113/82 Pulse Oximetry 100 Oxygen Delivery Method 11/01/22 05:30 11/01/22 05:45 11/01/22 05:45 Temperature Pulse Rate 114 H 116 H Respiratory Rate 30 H 29 H Blood Pressure 114/85 Pulse Oximetry 98 99 Oxygen Delivery Method 11/01/22 06:00 11/01/22 06:00 11/01/22 06:18 Temperature Pulse Rate 119 H 111 H Respiratory Rate 29 H 31 H Blood Pressure 118/85 Pulse Oximetry 99 99 Oxygen Delivery Method 11/01/22 06:18 11/01/22 06:30 11/01/22 06:30 Temperature Pulse Rate 113 H Respiratory Rate 31 H Blood Pressure 112/71 111/77 Pulse Oximetry 99 Oxygen Delivery Method 11/01/22 07:00 11/01/22 07:00 11/01/22 07:30 Temperature Pulse Rate 118 H Respiratory Rate 29 H Blood Pressure 124/89 120/85 Pulse Oximetry 100 Oxygen Delivery Method 11/01/22 07:30 11/01/22 08:00 11/01/22 08:00 Temperature Pulse Rate 118 H 117 H Respiratory Rate 31 H 26 H Blood Pressure 121/82 Pulse Oximetry 100 100 Oxygen Delivery Method 11/01/22 08:39 11/01/22 08:30 11/01/22 08:30 Temperature 99.4 F Pulse Rate 114 H Respiratory Rate 26 H Blood Pressure 116/82 Pulse Oximetry 100 Oxygen Delivery Method 11/01/22 09:00 11/01/22 09:00 11/01/22 09:30 Temperature Pulse Rate 111 H Respiratory Rate 26 H Blood Pressure 113/82 111/84 Pulse Oximetry 100 Oxygen Delivery Method 11/01/22 09:30 11/01/22 10:00 11/01/22 10:00 Temperature Pulse Rate 109 H 108 H Respiratory Rate 26 H 26 H Blood Pressure 118/82 Pulse Oximetry 100 100 Oxygen Delivery Method 11/01/22 10:30 11/01/22 10:30 11/01/22 11:00 Temperature Pulse Rate 108 H Respiratory Rate 26 H Blood Pressure 121/86 121/84 Pulse Oximetry 100 Oxygen Delivery Method 11/01/22 11:00 Temperature Pulse Rate 108 H Respiratory Rate 26 H Blood Pressure Pulse Oximetry 100 Oxygen Delivery Method Oxygen Delivery Method Mechanical Ventilation Oxygen Flow Rate 4 Narrative Exam Narrative: General: Intubated and sedated HEENT: Pupils equal and reactive, anicteric, poor dentition Lungs: Bilateral coarse crackles throughout Heart: Regular rhythm Abdomen: Nondistended but seems diffusely tender with patient grimacing on deep palpation Extremities: No cyanosis or edema Neurological: No focal deficits Skin: No rash or petechiae Objective Labs Result Diagrams: 11/01/22 14:31 11/01/22 14:31 Labs: Laboratory Results - last 24 hr 10/31/22 10/31/22 10/31/22 06:46 13:42 15:15 WBC 29.0 H RBC 4.08 L Hgb 11.5 L Hct 34.2 L MCV 83.8 MCH 28.3 MCHC 33.8 RDW 13.9 Plt Count 504 H Neut % (Auto) Not Reportable Lymph % (Auto) Not Reportable [place] % (Auto) Not Reportable Eos % (Auto) Not Reportable Baso % (Auto) Not Reportable Neut # (Auto) Lymph # (Auto) Not Reportable [place] # (Auto) Not Reportable Eos # (Auto) Baso # (Auto) Not Reportable Total Counted 100 Seg Neutrophils % 92.0 H Lymphocytes % (Manual) 3.0 L Monocytes % (Manual) 5.0 Neutrophils # (Manual) 58521 H RBC Morphology Norm ABG pH 7.21 L* ABG pCO2 67.8 H* ABG pO2 49 L* ABG HCO3 27 H ABG Total CO2 29 ABG O2 Saturation 75 L* ABG Base Excess -1.0 FiO2 100 Sodium Potassium Chloride Carbon Dioxide BUN Creatinine Estimated GFR BUN/Creatinine Ratio Glucose Lactate Calcium Magnesium 1.2 L Total Bilirubin AST ALT Alkaline Phosphatase Total Protein Albumin Globulin Albumin/Globulin Ratio Nasal Screen MRSA (PCR) Vancomycin Peak Blood Type Antibody Screen 10/31/22 10/31/22 10/31/22 15:15 15:15 15:57 WBC RBC Hgb Hct MCV MCH MCHC RDW Plt Count Neut % (Auto) Lymph % (Auto) [place] % (Auto) Eos % (Auto) Baso % (Auto) Neut # (Auto) Lymph # (Auto) [place] # (Auto) Eos # (Auto) Baso # (Auto) Total Counted Seg Neutrophils % Lymphocytes % (Manual) Monocytes % (Manual) Neutrophils # (Manual) RBC Morphology ABG pH 7.31 L ABG pCO2 57.8 H ABG pO2 103 H ABG HCO3 29 H ABG Total CO2 31 ABG O2 Saturation 97 ABG Base Excess 3.0 H FiO2 70 Sodium 133 L Potassium 3.4 Chloride 95 L Carbon Dioxide 28 BUN 8 L Creatinine 0.66 Estimated GFR > 60 BUN/Creatinine Ratio 12.1 Glucose 124 H Lactate 1.9 Calcium 7.4 L Magnesium 2.0 Total Bilirubin 0.5 AST 31 ALT 14 Alkaline Phosphatase 152 H Total Protein 6.4 Albumin 2.7 L Globulin 3.7 Albumin/Globulin Ratio 0.7 L Nasal Screen MRSA (PCR) Vancomycin Peak Blood Type Antibody Screen 10/31/22 10/31/22 10/31/22 17:05 21:20 21:20 WBC RBC Hgb 11.6 L Hct 34.4 L MCV MCH MCHC RDW Plt Count Neut % (Auto) Lymph % (Auto) [place] % (Auto) Eos % (Auto) Baso % (Auto) Neut # (Auto) Lymph # (Auto) [place] # (Auto) Eos # (Auto) Baso # (Auto) Total Counted Seg Neutrophils % Lymphocytes % (Manual) Monocytes % (Manual) Neutrophils # (Manual) RBC Morphology ABG pH ABG pCO2 ABG pO2 ABG HCO3 ABG Total CO2 ABG O2 Saturation ABG Base Excess FiO2 Sodium Potassium Chloride Carbon Dioxide BUN Creatinine Estimated GFR BUN/Creatinine Ratio Glucose Lactate Calcium Magnesium Total Bilirubin AST ALT Alkaline Phosphatase Total Protein Albumin Globulin Albumin/Globulin Ratio Nasal Screen MRSA (PCR) Negative for mrsa Vancomycin Peak Blood Type O Positive Antibody Screen Negative 11/01/22 11/01/22 11/01/22 01:58 06:02 06:02 WBC 20.6 H RBC 3.79 L Hgb 10.8 L Hct 31.9 L MCV 84.2 MCH 28.4 MCHC 33.7 RDW 13.8 Plt Count 441 H Neut % (Auto) 82.8 H Lymph % (Auto) 8.1 L [place] % (Auto) 8.9 Eos % (Auto) 0.0 L Baso % (Auto) 0.2 Neut # (Auto) 48486 H Lymph # (Auto) 1700 [place] # (Auto) 1800 H Eos # (Auto) 0 Baso # (Auto) 0 Total Counted Seg Neutrophils % Lymphocytes % (Manual) Monocytes % (Manual) Neutrophils # (Manual) RBC Morphology ABG pH ABG pCO2 ABG pO2 ABG HCO3 ABG Total CO2 ABG O2 Saturation ABG Base Excess FiO2 Sodium Potassium Chloride Carbon Dioxide BUN Creatinine Estimated GFR BUN/Creatinine Ratio Glucose Lactate Calcium Magnesium 1.7 Total Bilirubin AST ALT Alkaline Phosphatase Total Protein Albumin Globulin Albumin/Globulin Ratio Nasal Screen MRSA (PCR) Vancomycin Peak 10.8 L Blood Type Antibody Screen 11/01/22 06:02 WBC RBC Hgb Hct MCV MCH MCHC RDW Plt Count Neut % (Auto) Lymph % (Auto) [place] % (Auto) Eos % (Auto) Baso % (Auto) Neut # (Auto) Lymph # (Auto) [place] # (Auto) Eos # (Auto) Baso # (Auto) Total Counted Seg Neutrophils % Lymphocytes % (Manual) Monocytes % (Manual) Neutrophils # (Manual) RBC Morphology ABG pH ABG pCO2 ABG pO2 ABG HCO3 ABG Total CO2 ABG O2 Saturation ABG Base Excess FiO2 Sodium 131 L Potassium 3.4 Chloride 98 Carbon Dioxide 28 BUN 14 Creatinine 0.71 Estimated GFR > 60 BUN/Creatinine Ratio 19.7 Glucose 104 Lactate Calcium 7.5 L Magnesium Total Bilirubin 0.5 AST 28 ALT 12 Alkaline Phosphatase 134 H Total Protein 5.8 L Albumin 2.4 L Globulin 3.4 Albumin/Globulin Ratio 0.7 L Nasal Screen MRSA (PCR) Vancomycin Peak Blood Type Antibody Screen [facility] Medical History Acid reflux Alcohol abuse Ankle pain Ankylosing spondylitis (1985) Ankylosing spondylitis Chronic back pain Foot pain Fracture cervical vertebra-closed GERD (gastroesophageal reflux disease) Hypertension Hypertension Muscle pain Tobacco use disorder, moderate, in early remission Surgical History History of open reduction and internal fixation (ORIF) procedure (2005) History of tonsillectomy Status post colonoscopy (2012) Status post incision and drainage Family History Father No problems noted. Mother Cancer Other Alcoholism Colorectal cancer Social History Smoking Status: Current every day smoker Assessment & Plan Assessment & Plan narrative: 1. Bilateral pneumonia, likely superimposed bacterial, with antecedent influenza A -patient hypoxic, elevated WBC, bilateral consolidation on CT imaging -negative blood and urine cultures -continue vanc, zosyn and azithro, likely likely deescalate soon -follow CBC and cultures -will likely dc vanc once sputum cultures return 2. Acute hypoxic and hypercapnic respiratory failure -now intubated due to worsening hypercapnia -likely component of pneumonia and sedative effect from ativan/phenobarb plus dilaudid -continue O2 support and treatment of underlying pneumonia 3. Possible sepstic shock with acute end-organ failure -presented with pneumonia, elevated lactate, elevated WBC, tachycardic, hypoxic though not hypotensive -treat underlying source of infection -continue NS 100 cc/hour volume support -started levophed due to worsening BP on 11/01 4. Acute metabolic encephalopathy and alcohol withdrawal -continue lorazepam as needed per [facility] protocol -also received phenobarbital in the ED, continue phenobarbital 130 mg IV as needed for severe agitation -NPO due to severe altered mental status -thiamine IV 5. Chronic hypertension -patient on oral metoprolol at home -substitute metoprolol 5 mg IV q.6 hours while patient NPO -telemetry Code status: Full code Surrogate decision maker: Daughter Elana Do DVT prophylaxis: Enoxaparin, SCDs Dispo: Several days as till intubated in ICU. Time Spent With Patient Critical Care time: I spent a total of [] minutes of critical care time on this patient's care today; this time is exclusive of procedural time.
--- NOTE | 2022-11-01 14:30 | DI.RAD.S_ITS ---
PROCEDURE: XR CHEST 1V INDICATIONS: Respiratory failure TECHNIQUE: One view of the chest was acquired. COMPARISON: [facility], , XR CHEST 1V, 10/31/2022, 14:28. FINDINGS: Surgical changes and devices: Endotracheal tube terminates in appropriate position within the distal thoracic trachea. Enteric tube is in appropriate position. Lungs and pleura: No pneumothorax. Veiling opacities in the lower lung north presumably represent small pleural effusions. Stable interstitial and airspace opacities when compared with the previous exam. Mediastinum: Mediastinal contours appear normal. Heart size is normal. Bones and chest wall: No suspicious bony lesions. Overlying soft tissues appear unremarkable. IMPRESSION: No significant change from prior. Dictated by: Eduardo Hein M.D. on 11/01/2022 at 11:04 Approved by: Eduardo Hein M.D. on 11/01/2022 at 11:09
[2022-11-01 14:42] LABS: Add Manual Diff / Slide Review NO; Basophils Absolute Auto 100 /uL (0-100); Basophils Percent Auto 0.3 % (0-2); Eosinophils Absolute Auto 0 /uL (0-450); Hematocrit 27.1 % (41-53); Hemoglobin 9.2 g/dL (13.5-17.5); Lymphocytes Absolute Auto 1900 /uL (1100-4500); Lymphocytes Percent Auto 10.3 % (25-40); Mean Corpuscular Hemoglobin 28.6 PG (26-34); Monocytes Absolute Auto 1600 /uL (0-900); Monocytes Percent Auto 8.8 % (3-14); Neutrophils Absolute Auto 15000 /uL (1500-7000); Neutrophils Percent Auto 80.6 % (50-75); Platelet Count 394 X10^3/uL (150-400); Red Blood Cell Count 3.22 X10^6/uL (4.5-5.9); Red Cell Distribution Width 14.2 % (11.6-14.8); White Blood Cell Count 18.6 X10^3/uL (4.5-11.0)
[2022-11-01 14:53] LABS: Triglycerides 130 mg/dL (35-150)
[2022-11-01 14:54] LABS: Alanine Aminotransferase 12 IU/L (<50); Albumin 2.3 g/dL (3.5-5.0); Albumin Globulin Ratio 0.7 (1.0-2.8); Alkaline Phosphatase 108 U/L (38-126); Aspartate Aminotransferase 25 IU/L (17-59); BUN Creatinine Ratio 18.7 (6-22); Bilirubin Total 0.4 mg/dL (0.2-1.3); Blood Urea Nitrogen 14 mg/dL (9-20); Calcium 7.4 mg/dL (8.4-10.2); Carbon Dioxide 29 mmol/L (22-32); Chloride 99 mmol/L (98-107); Estimated Glomerular Filt Rate > 60 mL/min (>60); Globulin 3.3 g/dL (1.7-4.1); Glucose 96 mg/dL (80-110); HEMOLYSIS < 15 (0-50); Potassium 3.2 mmol/L (3.4-5.1); Sodium 133 mmol/L (137-145); Total Protein 5.6 g/dL (6.3-8.2)
[2022-11-01] MEDS: POTASSIUM CHLORIDE IN WATER 10 MEQ/100 ML PIGGYBACK 100 MEQ IV ×4 (15:18→19:17)
--- NOTE | 2022-11-01 15:24 | CM.DANOTE ---
Initial DCP Assessment Note Pt is a 61 yo male, resident of [place], presents complaining of abd pain and admitted for pneumonia, influenza a, heroin and alcohol withdrawal, lactic acidosis. Hx includes hypertension and inflammation in the joints Patient currently sedated and intubated; according to notes patient started to became severely agitated, followed by drop in O2 sats w/worsening resp failure needing airway protection PCP: Formerly Dr Zurita; FMA (?) Payer: [facility] Completed this assessment based on information available in the chart. Patient w/known ETOH abuse and polysubstance use that includes ETOH, opiates, heroin, THC CM team will plan to follow closely and assess DC needs when medically appropriate VARGAS Whitaker Discharge Planning/Care Management CM Discharge Assessment Start: 11/01/22 15:17 Freq: Status: Active Protocol: Document 11/01/22 15:17 ESDRAS (Rec: 11/01/22 15:24 [email or web address] [id number]) Discharge Planning Assessment Assigned [place] VARGAS Graf DPOA/Assigned Designee Name Mackenzie Do, family Contact Information [phone] Advance Directives? No History Provided By Medical Record Comment Unknown Comment Unknown Independent with ADL's Yes Is patient alert and oriented? Yes Comment Patient presented to the ER complaining of persistent abd pain, states last drink was 3 days ago Barriers to Discharge Yes Comment Unknown at this time, patient intubated and sedated. Will plan to assess needs when patient able to participate Transportation Arrangement TBD
[2022-11-01] MEDS: NOREPINEPHRINE BITARTRATE/D5W 4 MG/250 ML PLAST..BAG 30 MG IV (16:43)
--- NOTE | 2022-11-01 16:46 | DI.RAD.S_ITS ---
PROCEDURE: XR CHEST 1V INDICATIONS: central line placement TECHNIQUE: One view of the chest was acquired. COMPARISON: [facility], CR, XR CHEST 1V, 11/01/2022, 11:26. FINDINGS: Right IJ central line terminates in the SVC, cephalad to the level of the cavoatrial junction by approximately 2-3 cm. Diffuse mixed interstitial and airspace opacities are similar. Suspected small pleural effusions. No pneumothorax. Endotracheal and enteric tubes are in appropriate position. IMPRESSION: Appropriate position of central line and support devices. Unchanged mixed interstitial and airspace opacities with suspected small pleural effusions. Dictated by: Eduardo Hein M.D. on 11/01/2022 at 16:21 Approved by: Eduardo Hein M.D. on 11/01/2022 at 16:22
[2022-11-01] MEDS: propofoL 1,000 MG/100 ML VIAL 11.79 MG IV ×2 (16:48→22:34)
--- NOTE | 2022-11-01 16:49 | PM.PROC.1 ---
Procedures Date/Time Date of procedure: 11/01/22 Time of procedure: 16:20 Central Line Placement Time out performed: Yes (time out at 16:20) Patient placed on monitor/pulse ox: Yes MD prep: mask, gown and gloves Central line prep: Chlorhexidine scrub and sterile drapes applied Local anesthesia used: lidocaine 1% Amount of anesthesia used (ml): 2 Ultrasound used for placement: Yes Central line lumen inserted: triple Post procedure: sutured in place, good blood return, all ports aspirated, flushed, capped and sterile dressing applied Post procedure x-ray: other (pending CXR review) Patient tolerated procedure: well and no complications Complications: none
[2022-11-01] MEDS: AZITHROMYCIN 500 MG in DEXTROSE 5% IN WATER 250 ML 250 MG IV (20:03)
--- NOTE | 2022-11-01 21:08 | PM.ICURNDS ---
- :: This patient was seen via real time interactive two-way audiovisual telecommunication. Pt on levophed, and sedation increased this evening due to agitation and vent dyssyncrhony. consider restarting start pt on chemical dvt ppx given hgb is stable trend bmp and &o, ABG. serial EKG given bigeminy.
[2022-11-01] MEDS: fentaNYL 1,000 MCG in DEXTROSE 5% IN WATER 230 ML 24.563 MCG IV (22:33)
[2022-11-01] MEDS: dexmedeTOMIDine in 0.9 % NaCL 400 MCG/100 ML PLAST..BAG 6.55 MCG IV (22:33)
[2022-11-02] VITALS (97 sets, daily range): BP systolic 68–152; BP diastolic 46–86; PULSE 66–106; RESP 0–36; TEMP 36.3–37.1; O2SAT 93–100
[2022-11-02] MEDS: CHLORHEXIDINE GLUCONATE 15 ML CUP PO ×4 (00:16→17:45)
[2022-11-02 01:58] LABS: Vancomycin Trough 16.1 ug/mL (10-20)
[2022-11-02] MEDS: VANCOMYCIN 1,000 MG/200 ML PIGGYBACK 200 MG IV ×2 (02:13→09:09)
[2022-11-02] MEDS: NOREPINEPHRINE BITARTRATE/D5W 4 MG/250 ML PLAST..BAG 15 MG IV (02:44)
[2022-11-02] MEDS: PIPERACILLIN/TAZO 3.375 GM in SODIUM CHLORIDE 0.9% 100 ML IV ×3 (04:32→21:14)
[2022-11-02] MEDS: propofoL 1,000 MG/100 ML VIAL 17.685 MG IV (04:40)
[2022-11-02 06:29] LABS: Magnesium 1.7 mg/dL (1.6-2.3)
[2022-11-02 06:30] LABS: Alanine Aminotransferase 11 IU/L (<50); Albumin 2.1 g/dL (3.5-5.0); Albumin Globulin Ratio 0.7 (1.0-2.8); Alkaline Phosphatase 94 U/L (38-126); Aspartate Aminotransferase 30 IU/L (17-59); Bilirubin Total 0.4 mg/dL (0.2-1.3); Blood Urea Nitrogen 13 mg/dL (9-20); Calcium 7.1 mg/dL (8.4-10.2); Carbon Dioxide 26 mmol/L (22-32); Chloride 105 mmol/L (98-107); Estimated Glomerular Filt Rate > 60 mL/min (>60); Glucose 95 mg/dL (80-110); HEMOLYSIS 24 (0-50); Potassium 3.4 mmol/L (3.4-5.1); Sodium 135 mmol/L (137-145); Total Protein 5.1 g/dL (6.3-8.2)
[2022-11-02 06:34] LABS: Vancomycin Peak 23.2 ug/mL (20-40)
[2022-11-02 06:46] LABS: Add Manual Diff / Slide Review NO; Basophils Absolute Auto 100 /uL (0-100); Basophils Percent Auto 0.5 % (0-2); Eosinophils Absolute Auto 0 /uL (0-450); Eosinophils Percent Auto 0.2 % (2-4); Hematocrit 28.4 % (41-53); Hemoglobin 9.5 g/dL (13.5-17.5); Lymphocytes Absolute Auto 1900 /uL (1100-4500); Lymphocytes Percent Auto 11.5 % (25-40); Mean Corpuscular HGB Conc 33.2 % (30-36); Mean Corpuscular Hemoglobin 28.4 PG (26-34); Mean Corpuscular Volume 85.4 fL (80-100); Monocytes Absolute Auto 1500 /uL (0-900); Monocytes Percent Auto 9.3 % (3-14); Neutrophils Absolute Auto 12700 /uL (1500-7000); Neutrophils Percent Auto 78.5 % (50-75); Platelet Count 402 X10^3/uL (150-400); Red Blood Cell Count 3.33 X10^6/uL (4.5-5.9); Red Cell Distribution Width 14.1 % (11.6-14.8); White Blood Cell Count 16.1 X10^3/uL (4.5-11.0)
--- NOTE | 2022-11-02 07:07 | PM.PN.EICU ---
Subjective Subjective IF CAMERA ACTIVATED, patient seen via real-time interactive audiovisual communication: Camera activated Consent obtained for tele-forgesmith care: Yes Patient Location: ICU Provider location (State): Other participants/roles: RN Current Medications Current Medications Medications: Home Medications ketorolac 0.4 % eye drops 1 drp OPHTH QID #5 mL 06/20/17 [Rx Confirmed 10/13/18] indomethacin 50 mg capsule 50 mg PO TIDP PRN pain, moderate #90 caps 10/13/18 [Rx] amitriptyline 25 mg tablet 25 mg PO BEDTIME #30 tabs 01/07/19 [Rx] ondansetron 4 mg disintegrating tablet 4 mg PO TID-QID PRN nausea and vomiting #10 tabs 02/24/19 [Rx] cyclobenzaprine 10 mg tablet 10 mg PO TIDP #90 tabs 11/19/19 [Rx] gabapentin 300 mg capsule (Neurontin) 300 mg PO Q8H #90 caps 11/19/19 [Rx] metoprolol succinate 50 mg tablet,extended release 24 hr (Toprol XL) 50 mg PO BID #60 tabs 11/19/19 [Rx] omeprazole 20 mg capsule,delayed release 20 mg PO QDAY #30 caps 11/19/19 [Rx] doxycycline hyclate 100 mg capsule 100 mg PO BID #14 caps 05/03/22 [Rx] Visit Medications (administered) Generic Name Dose Route Start Last Admin Trade Name Freq PRN Reason Stop Dose Admin Chlorhexidine Gluconate 15 ml 10/31/22 18:00 11/02/22 06:30 Chlorhexidine Gluconate 15 Ml Cup PO 15 ml Q6HR JYOTI Administration Fentanyl 23 mcg 10/31/22 14:54 10/31/22 15:03 Fentanyl 100 Mcg/2 Ml Inj 0.35 mcg/kg (23 mcg) 23 mcg IV Administration Q1HR PRN Pain, Severe (7-10) Folic Acid 1 mg 10/31/22 09:00 11/01/22 08:32 Folic Acid 1 Mg Tablet PO Not Given DAILY JYOTI Sodium Chloride 1,000 mls @ 100 mls/hr 10/31/22 00:45 11/01/22 22:35 Normal Saline 0.9% IV 100 mls/hr CONT JYOTI Administration Thiamine HCl 100 mg/ Sodium 101 mls @ 404 mls/hr 10/31/22 09:30 11/01/22 08:56 Chloride IV Infused DAILY JYOTI Infusion Piperacillin Sod/Tazobactam 100 mls @ 25 mls/hr 10/31/22 12:45 11/02/22 04:32 Sod 3.375 gm/ Sodium Chloride IV 25 mls/hr Q8H JYOTI Administration Vancomycin HCl 1,000 mg in 200 mls @ 200 mls/hr 10/31/22 18:00 11/02/22 04:43 Vancomycin IV Infused Q8H JYOTI Infusion Sodium Chloride 500 mls @ 1,000 mls/hr 10/31/22 14:03 10/31/22 18:19 Normal Saline 0.9% IV Infused BOLUS PRN Infusion Fluid replacement Propofol 1,000 mg in 100 mls @ 1.965 mls/hr 10/31/22 14:15 11/02/22 04:40 Propofol IV 45 mcg/kg/min TITRATE JYOTI 17.685 mls/hr Administration Protocol 5 MCG/KG/MIN NOREPINEPHRINE BITARTRATE/D5W 4 mg in 250 mls @ 30 mls/hr 10/31/22 14:04 11/02/22 03:40 Levophed IV 3.5 mcg/min TITRATE JYOTI 13.125 mls/hr Titration Protocol 8 MCG/MIN Fentanyl 1,000 mcg/ Dextrose 250 mls @ 11.463 mls/hr 10/31/22 15:30 11/01/22 22:33 IV 1.5 mcg/kg/hr TITRATE JYOTI 24.563 mls/hr Administration Protocol 0.7 MCG/KG/HR Azithromycin 500 mg/ Dextrose 250 mls @ 250 mls/hr 10/31/22 20:00 11/01/22 23:00 IV 11/03/22 19:59 Infused Q24H JYOTI Infusion dexmedeTOMIDine in 0.9 % NaCL 400 mcg in 100 mls @ 3.275 mls/hr 11/01/22 10:00 11/01/22 22:33 Precedex IV 0.4 mcg/kg/hr TITRATE JYOTI 6.55 mls/hr Administration Protocol 0.2 MCG/KG/HR Lorazepam 0 mg 10/31/22 00:42 10/31/22 05:04 Lorazepam 2 Mg/Ml Inj IV 2 mg CIWAPRN PRN Administration Alcohol Withdrawal/n/V Protocol Metoclopramide HCl 10 mg 10/30/22 20:29 10/30/22 20:34 Metoclopramide 10 Mg/2 Ml Inj IV 10 mg Q6HR PRN Administration Nausea And Vomiting Multivitamins 1 tab 10/31/22 09:00 11/01/22 08:32 Multivitamin 1 Tablet PO Not Given DAILY JYOTI Nicotine 7 mg 10/31/22 09:00 11/01/22 08:22 Nicotine 7 Mg Patch TOP 7 mg DAILY JYOTI Administration Ondansetron HCl 4 mg 10/31/22 01:07 11/01/22 03:58 Ondansetron 4 Mg/2 Ml Inj IV 4 mg Q4HR PRN Administration Nausea And Vomiting Pantoprazole Sodium 40 mg 10/31/22 21:00 11/01/22 20:43 Pantoprazole 40 Mg Vial IV 40 mg BID JYOTI Administration Objective Ventilator Parameters: Ventilator Settings FiO2 30 RT Vent Frequency 26 Ventilator Tidal Volume 390 Exhaled Vt/kg IBW 5.8 Positive End Expiratory 5 Pressure Inspiratory Phase Time 0.7 I:E Ratio 1:2.3 Patient Position HOB >= 30 degrees Labs Result Diagrams: 11/02/22 05:45 11/02/22 05:45 Labs: Laboratory Results - last 24 hr 11/01/22 11/01/22 11/01/22 14:31 14:31 14:31 WBC 18.6 H RBC 3.22 L Hgb 9.2 L Hct 27.1 L MCV 84.0 MCH 28.6 MCHC 34.0 RDW 14.2 Plt Count 394 Neut % (Auto) 80.6 H Lymph % (Auto) 10.3 L [place] % (Auto) 8.8 Eos % (Auto) 0.0 L Baso % (Auto) 0.3 Neut # (Auto) 74816 H Lymph # (Auto) 1900 [place] # (Auto) 1600 H Eos # (Auto) 0 Baso # (Auto) 100 Sodium 133 L Potassium 3.2 L Chloride 99 Carbon Dioxide 29 BUN 14 Creatinine 0.75 Estimated GFR > 60 BUN/Creatinine Ratio 18.7 Glucose 96 Calcium 7.4 L Magnesium Total Bilirubin 0.4 AST 25 ALT 12 Alkaline Phosphatase 108 Total Protein 5.6 L Albumin 2.3 L Globulin 3.3 Albumin/Globulin Ratio 0.7 L Triglycerides 130 Vancomycin Peak Vancomycin Trough 11/02/22 11/02/22 11/02/22 01:15 05:45 05:45 WBC 16.1 H RBC 3.33 L Hgb 9.5 L Hct 28.4 L MCV 85.4 MCH 28.4 MCHC 33.2 RDW 14.1 Plt Count 402 H Neut % (Auto) 78.5 H Lymph % (Auto) 11.5 L [place] % (Auto) 9.3 Eos % (Auto) 0.2 L Baso % (Auto) 0.5 Neut # (Auto) 39640 H Lymph # (Auto) 1900 [place] # (Auto) 1500 H Eos # (Auto) 0 Baso # (Auto) 100 Sodium 135 L Potassium 3.4 Chloride 105 Carbon Dioxide 26 BUN 13 Creatinine 0.62 L Estimated GFR > 60 BUN/Creatinine Ratio 21.0 Glucose 95 Calcium 7.1 L Magnesium Total Bilirubin 0.4 AST 30 ALT 11 Alkaline Phosphatase 94 Total Protein 5.1 L Albumin 2.1 L Globulin 3.0 Albumin/Globulin Ratio 0.7 L Triglycerides Vancomycin Peak Vancomycin Trough 16.1 11/02/22 11/02/22 05:45 05:45 WBC RBC Hgb Hct MCV MCH MCHC RDW Plt Count Neut % (Auto) Lymph % (Auto) [place] % (Auto) Eos % (Auto) Baso % (Auto) Neut # (Auto) Lymph # (Auto) [place] # (Auto) Eos # (Auto) Baso # (Auto) Sodium Potassium Chloride Carbon Dioxide BUN Creatinine Estimated GFR BUN/Creatinine Ratio Glucose Calcium Magnesium 1.7 Total Bilirubin AST ALT Alkaline Phosphatase Total Protein Albumin Globulin Albumin/Globulin Ratio Triglycerides Vancomycin Peak 23.2 Vancomycin Trough Exam Vital Signs (past 8 hours): - 11/01/22 23:15 11/01/22 23:15 11/01/22 23:30 Temperature Pulse Rate 81 Respiratory Rate 26 H Blood Pressure 102/60 102/60 Pulse Oximetry 98 Oxygen Delivery Method 11/01/22 23:30 11/01/22 23:46 11/01/22 23:46 Temperature Pulse Rate 81 96 H Respiratory Rate 26 H 26 H Blood Pressure 94/50 L Pulse Oximetry 98 96 Oxygen Delivery Method 11/02/22 00:00 11/02/22 00:00 11/02/22 00:15 Temperature 97.7 F Pulse Rate 80 Respiratory Rate 26 H Blood Pressure 100/60 103/64 Pulse Oximetry 98 Oxygen Delivery Method 11/02/22 00:15 11/02/22 00:30 11/02/22 00:30 Temperature Pulse Rate 83 80 Respiratory Rate 26 H 26 H Blood Pressure 99/61 Pulse Oximetry 98 98 Oxygen Delivery Method 11/02/22 00:45 11/02/22 00:45 11/02/22 01:00 Temperature Pulse Rate 81 Respiratory Rate 26 H Blood Pressure 99/62 98/62 Pulse Oximetry 98 Oxygen Delivery Method 11/02/22 01:00 11/02/22 02:00 11/02/22 01:15 Temperature Pulse Rate 81 87 Respiratory Rate 26 H 26 H Blood Pressure Pulse Oximetry 99 98 Oxygen Delivery Method Mechanical Ventilation 11/02/22 01:15 11/02/22 01:30 11/02/22 01:30 Temperature Pulse Rate 80 Respiratory Rate 26 H Blood Pressure 98/64 102/63 Pulse Oximetry 99 Oxygen Delivery Method 11/02/22 01:45 11/02/22 01:45 11/02/22 02:00 Temperature Pulse Rate 81 Respiratory Rate 26 H Blood Pressure 100/64 108/66 Pulse Oximetry 99 Oxygen Delivery Method 11/02/22 02:00 11/02/22 02:15 11/02/22 02:15 Temperature Pulse Rate 80 80 Respiratory Rate 26 H 26 H Blood Pressure 107/71 Pulse Oximetry 99 99 Oxygen Delivery Method 11/02/22 02:30 11/02/22 02:30 11/02/22 02:45 Temperature Pulse Rate 78 Respiratory Rate 26 H Blood Pressure 104/68 108/67 Pulse Oximetry 99 Oxygen Delivery Method 11/02/22 02:45 11/02/22 03:00 11/02/22 03:00 Temperature Pulse Rate 81 79 Respiratory Rate 26 H 26 H Blood Pressure 111/75 Pulse Oximetry 99 99 Oxygen Delivery Method 11/02/22 03:15 11/02/22 03:15 11/02/22 03:30 Temperature Pulse Rate 80 Respiratory Rate 26 H Blood Pressure 108/77 103/65 Pulse Oximetry 99 Oxygen Delivery Method 11/02/22 03:30 11/02/22 03:45 11/02/22 03:45 Temperature Pulse Rate 79 91 H Respiratory Rate 26 H 26 H Blood Pressure 125/60 Pulse Oximetry 99 99 Oxygen Delivery Method 11/02/22 04:00 11/02/22 04:00 11/02/22 06:00 Temperature 97.7 F Pulse Rate 76 Respiratory Rate 26 H Blood Pressure 102/66 Pulse Oximetry 100 Oxygen Delivery Method Mechanical Ventilation Oxygen Delivery Method Mechanical Ventilation Oxygen Flow Rate 4 Assessment & Plan Assessment & Plan narrative: 61 year old male with history of hypertesion, alcohol abuse, and ankylosing spondylitis who was recently diagnosed with flu last presenting with abdominal pain. Associated with N/V and abdominal pain worsen after dranking some Pepsi. No reported fever/chills, SOB, diarrhea, or dysuria. On presentation, labs notable for WBC 23.7, Na 129, K 2.8, Cl 86, lipase 16, and lactic acid 5. CT chest/abdomen/pelvis showed scattered consolidation with bronchial wall thickening, mediastinal adenopathy, trace of left pleural effusion. Patient was given 2 liters of crystalloid bolus. Admitted to ICU for further management. On propfol, Fent and Precedex. yesdtrady failed Failed SAT due to agitation per RN Tachycardic, AF. BP is WNL not on pressors. Satting 100% on vent. Vent settings: VC 390, 5, 26, 35%. MRSA negative. Cx are NGTD. Currently on Vanc, Zosyn, Azithro; Tamiflu 60 BID (per pharmacy can't get 75 pill at their facility) Blood glucose < 180 Recommendations: N: Increase Precedex and slowly wean off Propofole then fentanyl. If persistent AMS, consider further diagnostic workup, recommend to check CTH w/o contrast today, TSH, B12. Consider adding Chlodiazepoxide 25 mg bid. C: Hold home antihypertensives. MAP goal >65. Wean off Levophed as tolerated, consider albumin boluse of 25% ( 25 mg x1l) to wean off P: Continue on current settings. Follow up daily CXR, blood gas, daily SBT GI: Continue PPI, MV/Thiamine/Folate.Start tube feed as OGT output resolved. R: Monitor lytes. Replete as needed. Monitor UOP: goal >0.5cc/kg/hour H/O: Hgb stable. SCDs ongoing. Consider restarting medical VTE prophylaxis and monitoring H/H ID:Continue Zosyn/Azithromycin. Given negative MRSA, would recommend stopping Vanc. Continue Tamiflu for at least 5 day course, can extend if still critically ill. E: Continue to monitor glucose levels. Goal is <180. If remains NPO, would recommend adding D5 to fluids given c/f ETOH ketosis. F. DC the maintenance IV fluid, goal for -ve fluid balance Total Critical Care time: 40 minutes Contact Tele-ICU if any change in status. We will continue to follow along. Time Spent With Patient Critical Care time: I spent a total of [] minutes of critical care time on this patient's care today; this time is exclusive of procedural time.
[2022-11-02] MEDS: SODIUM CHLORIDE 0.9% 1,000 ML 100 ML IV (07:51)
[2022-11-02] MEDS: PANTOPRAZOLE 40 MG VIAL IV ×2 (08:10→21:25)
[2022-11-02] MEDS: THIAMINE 100 MG in SODIUM CHLORIDE 0.9% 100 ML 404 MG IV (08:10)
[2022-11-02] MEDS: NICOTINE 7 MG PATCH TOP (08:10)
--- NOTE | 2022-11-02 09:28 | PM.PN.1 ---
Subjective Subjective Date Patient Seen: 11/02/22 Interval history: [place] [facility] [place]. Patient still intubated and sedated. Exam Vital Signs (past 8 hours): - 11/02/22 02:00 11/02/22 01:30 11/02/22 01:30 Temperature Pulse Rate 80 Respiratory Rate 26 H Blood Pressure 102/63 Pulse Oximetry 99 Oxygen Delivery Method Mechanical Ventilation 11/02/22 01:45 11/02/22 01:45 11/02/22 02:00 Temperature Pulse Rate 81 Respiratory Rate 26 H Blood Pressure 100/64 108/66 Pulse Oximetry 99 Oxygen Delivery Method 11/02/22 02:00 11/02/22 02:15 11/02/22 02:15 Temperature Pulse Rate 80 80 Respiratory Rate 26 H 26 H Blood Pressure 107/71 Pulse Oximetry 99 99 Oxygen Delivery Method 11/02/22 02:30 11/02/22 02:30 11/02/22 02:45 Temperature Pulse Rate 78 Respiratory Rate 26 H Blood Pressure 104/68 108/67 Pulse Oximetry 99 Oxygen Delivery Method 11/02/22 02:45 11/02/22 03:00 11/02/22 03:00 Temperature Pulse Rate 81 79 Respiratory Rate 26 H 26 H Blood Pressure 111/75 Pulse Oximetry 99 99 Oxygen Delivery Method 11/02/22 03:15 11/02/22 03:15 11/02/22 03:30 Temperature Pulse Rate 80 Respiratory Rate 26 H Blood Pressure 108/77 103/65 Pulse Oximetry 99 Oxygen Delivery Method 11/02/22 03:30 11/02/22 03:45 11/02/22 03:45 Temperature Pulse Rate 79 91 H Respiratory Rate 26 H 26 H Blood Pressure 125/60 Pulse Oximetry 99 99 Oxygen Delivery Method 11/02/22 04:00 11/02/22 04:00 11/02/22 06:00 Temperature 97.7 F Pulse Rate 76 Respiratory Rate 26 H Blood Pressure 102/66 Pulse Oximetry 100 Oxygen Delivery Method Mechanical Ventilation 11/02/22 06:45 11/02/22 07:00 11/02/22 07:04 Temperature Pulse Rate 78 82 Respiratory Rate 26 H 34 H Blood Pressure 93/57 L Pulse Oximetry 99 96 Oxygen Delivery Method 11/02/22 07:04 11/02/22 07:16 11/02/22 07:16 Temperature Pulse Rate 91 H 106 H Respiratory Rate 32 H 31 H Blood Pressure 102/57 L Pulse Oximetry 98 94 Oxygen Delivery Method 11/02/22 07:30 11/02/22 07:30 11/02/22 07:45 Temperature Pulse Rate 85 Respiratory Rate 30 H Blood Pressure 100/58 L 98/58 L Pulse Oximetry 99 Oxygen Delivery Method 11/02/22 07:45 11/02/22 08:00 11/02/22 08:00 Temperature Pulse Rate 79 80 Respiratory Rate 26 H 26 H Blood Pressure 102/57 L Pulse Oximetry 99 100 Oxygen Delivery Method 11/02/22 08:15 11/02/22 08:15 11/02/22 08:30 Temperature Pulse Rate 79 Respiratory Rate 26 H Blood Pressure 106/65 103/62 Pulse Oximetry 100 Oxygen Delivery Method 11/02/22 08:30 11/02/22 08:45 11/02/22 08:45 Temperature Pulse Rate 79 79 Respiratory Rate 26 H 26 H Blood Pressure 107/62 Pulse Oximetry 99 99 Oxygen Delivery Method 11/02/22 09:00 11/02/22 09:00 11/02/22 09:15 Temperature Pulse Rate 79 Respiratory Rate 26 H Blood Pressure 111/63 110/64 Pulse Oximetry 99 Oxygen Delivery Method 11/02/22 09:15 Temperature Pulse Rate 75 Respiratory Rate 26 H Blood Pressure Pulse Oximetry 99 Oxygen Delivery Method Oxygen Delivery Method Mechanical Ventilation Oxygen Flow Rate 4 Narrative Exam Narrative: General: Intubated and sedated HEENT: Pupils equal and reactive, anicteric, poor dentition Lungs: Bilateral coarse crackles throughout Heart: Regular rhythm Abdomen: Nondistended but seems diffusely tender with patient grimacing on deep palpation Extremities: No cyanosis or edema Neurological: No focal deficits Skin: No rash or petechiae Objective Labs Result Diagrams: 11/02/22 05:45 11/02/22 05:45 Labs: Laboratory Results - last 24 hr 11/01/22 11/01/22 11/01/22 14:31 14:31 14:31 WBC 18.6 H RBC 3.22 L Hgb 9.2 L Hct 27.1 L MCV 84.0 MCH 28.6 MCHC 34.0 RDW 14.2 Plt Count 394 Neut % (Auto) 80.6 H Lymph % (Auto) 10.3 L [place] % (Auto) 8.8 Eos % (Auto) 0.0 L Baso % (Auto) 0.3 Neut # (Auto) 93832 H Lymph # (Auto) 1900 [place] # (Auto) 1600 H Eos # (Auto) 0 Baso # (Auto) 100 Sodium 133 L Potassium 3.2 L Chloride 99 Carbon Dioxide 29 BUN 14 Creatinine 0.75 Estimated GFR > 60 BUN/Creatinine Ratio 18.7 Glucose 96 Calcium 7.4 L Magnesium Total Bilirubin 0.4 AST 25 ALT 12 Alkaline Phosphatase 108 Total Protein 5.6 L Albumin 2.3 L Globulin 3.3 Albumin/Globulin Ratio 0.7 L Triglycerides 130 Vancomycin Peak Vancomycin Trough 11/02/22 11/02/22 11/02/22 01:15 05:45 05:45 WBC 16.1 H RBC 3.33 L Hgb 9.5 L Hct 28.4 L MCV 85.4 MCH 28.4 MCHC 33.2 RDW 14.1 Plt Count 402 H Neut % (Auto) 78.5 H Lymph % (Auto) 11.5 L [place] % (Auto) 9.3 Eos % (Auto) 0.2 L Baso % (Auto) 0.5 Neut # (Auto) 50088 H Lymph # (Auto) 1900 [place] # (Auto) 1500 H Eos # (Auto) 0 Baso # (Auto) 100 Sodium 135 L Potassium 3.4 Chloride 105 Carbon Dioxide 26 BUN 13 Creatinine 0.62 L Estimated GFR > 60 BUN/Creatinine Ratio 21.0 Glucose 95 Calcium 7.1 L Magnesium Total Bilirubin 0.4 AST 30 ALT 11 Alkaline Phosphatase 94 Total Protein 5.1 L Albumin 2.1 L Globulin 3.0 Albumin/Globulin Ratio 0.7 L Triglycerides Vancomycin Peak Vancomycin Trough 16.1 11/02/22 11/02/22 05:45 05:45 WBC RBC Hgb Hct MCV MCH MCHC RDW Plt Count Neut % (Auto) Lymph % (Auto) [place] % (Auto) Eos % (Auto) Baso % (Auto) Neut # (Auto) Lymph # (Auto) [place] # (Auto) Eos # (Auto) Baso # (Auto) Sodium Potassium Chloride Carbon Dioxide BUN Creatinine Estimated GFR BUN/Creatinine Ratio Glucose Calcium Magnesium 1.7 Total Bilirubin AST ALT Alkaline Phosphatase Total Protein Albumin Globulin Albumin/Globulin Ratio Triglycerides Vancomycin Peak 23.2 Vancomycin Trough [facility] Medical History Acid reflux Alcohol abuse Ankle pain Ankylosing spondylitis (1985) Ankylosing spondylitis Chronic back pain Foot pain Fracture cervical vertebra-closed GERD (gastroesophageal reflux disease) Hypertension Hypertension Muscle pain Tobacco use disorder, moderate, in early remission Surgical History History of open reduction and internal fixation (ORIF) procedure (2005) History of tonsillectomy Status post colonoscopy (2012) Status post incision and drainage Family History Father No problems noted. Mother Cancer Other Alcoholism Colorectal cancer Social History Smoking Status: Current every day smoker Assessment & Plan Assessment & Plan narrative: 1. Bilateral pneumonia, likely superimposed bacterial, with antecedent influenza A -patient hypoxic, elevated WBC, bilateral consolidation on CT imaging -negative blood and urine cultures thus far -continue zosyn and azithro -follow CBC and cultures -dc vanc due to sputum culture growing only yeast 2. Acute hypoxic and hypercapnic respiratory failure -now intubated due to worsening hypercapnia -likely component of pneumonia and sedative effect from ativan/phenobarb plus dilaudid -continue O2 support and treatment of underlying pneumonia 3. Possible sepstic shock with acute end-organ failure -presented with pneumonia, elevated lactate, elevated WBC, tachycardic, hypoxic though not hypotensive -treat underlying source of infection -continue NS 100 cc/hour volume support -started levophed due to worsening BP on 11/01 4. Acute metabolic encephalopathy and alcohol withdrawal -continue lorazepam as needed per [facility] protocol -also received phenobarbital in the ED, continue phenobarbital 130 mg IV as needed for severe agitation -NPO due to severe altered mental status -thiamine IV daily -11/[address] noncontrast negative 5. Chronic hypertension -patient on oral metoprolol at home -substitute metoprolol 5 mg IV q.6 hours while patient NPO -telemetry Code status: Full code Surrogate decision maker: Carlos Do DVT prophylaxis: Enoxaparin, SCDs Dispo: Several days as still intubated in ICU. Time Spent With Patient Critical Care time: I spent a total of [] minutes of critical care time on this patient's care today; this time is exclusive of procedural time.
[2022-11-02] MEDS: fentaNYL 1,000 MCG in DEXTROSE 5% IN WATER 230 ML 24.563 MCG IV ×2 (10:02→20:23)
[2022-11-02] MEDS: ENOXAPARIN 40 MG/0.4 ML SYRINGE SUBCUT (10:02)
[2022-11-02] MEDS: dexmedeTOMIDine in 0.9 % NaCL 400 MCG/100 ML PLAST..BAG 6.55 MCG IV (10:09)
[2022-11-02 10:10] LABS: PCO2 ABG 33.1 mmHg (35-45); PO2 ABG 86 mmHg (80-100); pH ABG 7.44 (7.35-7.45)
[2022-11-02 10:11] LABS: HCO3 ABG 22 mmol/L (22-26); Oxygen Saturation ABG 97 % (95-100); TCO2 ABG 23 mmol/L (21-31)
[2022-11-02 10:13] LABS: Fractionated Inspired Oxygen 30
[2022-11-02] MEDS: ALBUMIN HUMAN 25 GM/100 ML VIAL IV (10:13)
[2022-11-02] MEDS: propofoL 1,000 MG/100 ML VIAL 15.72 MG IV (10:32)
--- NOTE | 2022-11-02 10:34 | DI.CT.S_ITS ---
PROCEDURE: CT HEAD/BRAIN WO CON INDICATIONS: persistent encephalopathy TECHNIQUE: Noncontrast 4.5 mm thick angled axial sections acquired from the foramen magnum to the vertex, with coronal and sagittal reformats. For radiation dose reduction, the following was used: automated exposure control, adjustment of mA and/or kV according to patient size. COMPARISON: None. FINDINGS: Image quality: Excellent. CSF spaces: Basal cisterns are patent. No extra-axial fluid collections. Ventricles are normal in size and shape. Brain: No midline shift. No intracranial masses or hemorrhage. Nicole-white matter interface is normal. Skull and face: Calvarium and visualized facial bones are intact, without suspicious lesions. Sinuses: Air-fluid levels in both maxillary sinuses and sphenoid sinuses. IMPRESSION: No acute intracranial finding. Fluid levels in both sphenoid and maxillary sinuses. Dictated by: Eduardo Hein M.D. on 11/02/2022 at 10:22 Approved by: Eduardo Hein M.D. on 11/02/2022 at 10:23
--- NOTE | 2022-11-02 11:09 | DIET.CONS ---
Dietary Consultation Note Admission Date: 10/30/2022 20:22 Assessment: 61y M admitted for pneumonia and substance withdrawal on ventilator x2d referred to nutrition for nutrition support recommendations. Pt on levophed 3.5 mcg/min (pt MAP >65) and propofol 40 mcg/kg/min which provides 424 calories. Pt currently with OG to LIS though no output today. Business Development Representative requests trophic feed. Ht: 170.18 cm Wt: 66.9 kg BMI: 23.0 Inder Score: 13 Nutrition Percent Meal Consumed pt is NPO 10/31/22 18:00 Labs: RBC 3.33 X10^6/uL (4.5-5.9) L 11/02/22 05:45 Hgb 9.5 g/dL (13.5-17.5) L 11/02/22 05:45 Hct 28.4 % (41-53) L 11/02/22 05:45 Creatinine 0.62 mg/dL (0.66-1.25) L 11/02/22 05:45 Hemoglobin A1c 5.8 % (4.0-6.0) 10/30/22 16:10 Lactate 1.9 mmol/L (0.7-2.1) 10/31/22 15:15 NT-Pro-B Natriuret Pep 9880 pg/mL (<125) H 10/31/22 06:46 Nutrition Diagnosis: inadequate protein calorie intake r/t NPO status aeb pt on ventilator. Interventions: 1. Recc continuous trophic feeds via OG of Glucerna 1.5 at 10mL/h with 20mL free water flushes q4h. Pts propofol at current rate providing additional 424kcals. If pt stable to increase feed rate, increase rate by 10mL q6h as tolerated to goal of 35mL/h with 100mL free water flushes q4h. Goal feed, propofol and free water flushes provide: 1728 kcals (26kcal/kg), 69g PRO (1g/kg), 112g CHO, 638mL feed water and 600mL free water flushes for total fluid volume of 1238mL (19mL/kg). 2. Business Development Representative to monitor fluid needs. 3. HOB >30 degrees at all time. EER: 1700kcals (25kcal/kg), 67g PRO (1g/kg) Monitoring/Evaluations: Pt may require new goal rate if propofol rate changes substantially. Electronically Signed by: Pati Parikh 11/02/22 11:09 Clinical Dietitian [address] [id number]
--- NOTE | 2022-11-02 11:42 | PC.NURSE ---
Patient taken down to CT at approximately 1115 with RT and extra RN's. Returned at approximately 1140 without incident.
[2022-11-02 13:30] LABS: Legionella pneumo Antigen Negative (Negative)
--- NOTE | 2022-11-02 14:30 | DI.RAD.S_ITS ---
PROCEDURE: XR CHEST 1V INDICATIONS: Respiratory failure TECHNIQUE: One view of the chest was acquired. COMPARISON: [facility], CR, XR CHEST 1V, 11/01/2022, 11:26. [facility], CR, XR CHEST 1V, 11/01/2022, 16:46. FINDINGS: Surgical changes and devices: Right-sided central venous catheter, endotracheal tube, nasogastric tube as well as cervical fixation screws are unchanged. Lungs and pleura: There is a persistent appearance of bilateral, predominantly bibasilar opacities as well as mild effusions. Effusions appear slightly more prominent most notably on the left. Mediastinum: Mediastinal contours appear normal. Heart size is normal. Bones and chest wall: No suspicious bony lesions. Overlying soft tissues appear unremarkable. IMPRESSION: Persistent appearance of bilateral opacities suggestive of pneumonia. Underlying areas of edema and/or atelectasis cannot be excluded. Mild interval worsening of effusions. Dictated by: Nasima Goncalves M.D. on 11/02/2022 at 14:33 Approved by: Nasima Goncalves M.D. on 11/02/2022 at 14:34
[2022-11-02] MEDS: FUROSEMIDE 40 MG/4 ML VIAL IV (15:06)
[2022-11-02] MEDS: dexmedeTOMIDine in 0.9 % NaCL 400 MCG/100 ML PLAST..BAG 16.375 MCG IV ×2 (16:04→21:26)
[2022-11-02] MEDS: propofoL 1,000 MG/100 ML VIAL 13.755 MG IV ×2 (16:05→22:56)
[2022-11-02 17:07] LABS: Alanine Aminotransferase 10 IU/L (<50); Albumin 2.4 g/dL (3.5-5.0); Albumin Globulin Ratio 0.8 (1.0-2.8); Alkaline Phosphatase 89 U/L (38-126); Aspartate Aminotransferase 37 IU/L (17-59); BUN Creatinine Ratio 17.5 (6-22); Bilirubin Total 0.5 mg/dL (0.2-1.3); Blood Urea Nitrogen 10 mg/dL (9-20); Calcium 7.3 mg/dL (8.4-10.2); Carbon Dioxide 24 mmol/L (22-32); Chloride 104 mmol/L (98-107); Estimated Glomerular Filt Rate > 60 mL/min (>60); Globulin 3.2 g/dL (1.7-4.1); Glucose 94 mg/dL (80-110); HEMOLYSIS < 15 (0-50); Potassium 3.4 mmol/L (3.4-5.1); Sodium 136 mmol/L (137-145); Total Protein 5.6 g/dL (6.3-8.2)
[2022-11-02 17:11] LABS: Add Manual Diff / Slide Review NO; Basophils Absolute Auto 100 /uL (0-100); Basophils Percent Auto 0.5 % (0-2); Eosinophils Absolute Auto 100 /uL (0-450); Eosinophils Percent Auto 0.7 % (2-4); Hematocrit 26.2 % (41-53); Hemoglobin 8.7 g/dL (13.5-17.5); Lymphocytes Absolute Auto 2200 /uL (1100-4500); Lymphocytes Percent Auto 14.7 % (25-40); Mean Corpuscular HGB Conc 33.3 % (30-36); Mean Corpuscular Hemoglobin 28.3 PG (26-34); Monocytes Absolute Auto 1300 /uL (0-900); Monocytes Percent Auto 8.9 % (3-14); Neutrophils Absolute Auto 11000 /uL (1500-7000); Neutrophils Percent Auto 75.2 % (50-75); Platelet Count 359 X10^3/uL (150-400); Red Blood Cell Count 3.08 X10^6/uL (4.5-5.9); White Blood Cell Count 14.7 X10^3/uL (4.5-11.0)
--- NOTE | 2022-11-02 20:20 | PM.PN.EICU ---
Subjective Subjective IF CAMERA ACTIVATED, patient seen via real-time interactive audiovisual communication: Camera activated Consent obtained for tele-metals sales representative care: Yes Patient Location: ICU Current Medications Current Medications Medications: Home Medications ketorolac 0.4 % eye drops 1 drp OPHTH QID #5 mL 06/20/17 [Rx Confirmed 10/13/18] indomethacin 50 mg capsule 50 mg PO TIDP PRN pain, moderate #90 caps 10/13/18 [Rx] amitriptyline 25 mg tablet 25 mg PO BEDTIME #30 tabs 01/07/19 [Rx] ondansetron 4 mg disintegrating tablet 4 mg PO TID-QID PRN nausea and vomiting #10 tabs 02/24/19 [Rx] cyclobenzaprine 10 mg tablet 10 mg PO TIDP #90 tabs 11/19/19 [Rx] gabapentin 300 mg capsule (Neurontin) 300 mg PO Q8H #90 caps 11/19/19 [Rx] metoprolol succinate 50 mg tablet,extended release 24 hr (Toprol XL) 50 mg PO BID #60 tabs 11/19/19 [Rx] omeprazole 20 mg capsule,delayed release 20 mg PO QDAY #30 caps 11/19/19 [Rx] doxycycline hyclate 100 mg capsule 100 mg PO BID #14 caps 05/03/22 [Rx] Visit Medications (administered) Generic Name Dose Route Start Last Admin Trade Name Freq PRN Reason Stop Dose Admin Chlorhexidine Gluconate 15 ml 10/31/22 18:00 11/02/22 17:45 Chlorhexidine Gluconate 15 Ml Cup PO 15 ml Q6HR JYOTI Administration Enoxaparin Sodium 40 mg 11/02/22 09:45 11/02/22 10:02 Enoxaparin 40 Mg/0.4 Ml Syringe SUBCUT 40 mg DAILY JYOTI Administration Fentanyl 23 mcg 10/31/22 14:54 10/31/22 15:03 Fentanyl 100 Mcg/2 Ml Inj 0.35 mcg/kg (23 mcg) 23 mcg IV Administration Q1HR PRN Pain, Severe (7-10) Folic Acid 1 mg 10/31/22 09:00 11/02/22 08:10 Folic Acid 1 Mg Tablet PO Not Given DAILY YJOTI Furosemide 40 mg 11/02/22 16:00 11/02/22 15:06 Furosemide 40 Mg/4 Ml Vial IV 40 mg 1600,0800 JYOTI Administration Sodium Chloride 1,000 mls @ 100 mls/hr 10/31/22 00:45 11/02/22 17:25 Normal Saline 0.9% IV 0 mls/hr CONT JYOTI Infusion Thiamine HCl 100 mg/ Sodium 101 mls @ 404 mls/hr 10/31/22 09:30 11/02/22 17:24 Chloride IV Infused DAILY JYOTI Infusion Piperacillin Sod/Tazobactam 100 mls @ 25 mls/hr 10/31/22 12:45 11/02/22 17:24 Sod 3.375 gm/ Sodium Chloride IV Infused Q8H JYOTI Infusion Sodium Chloride 500 mls @ 1,000 mls/hr 10/31/22 14:03 10/31/22 18:19 Normal Saline 0.9% IV Infused BOLUS PRN Infusion Fluid replacement Propofol 1,000 mg in 100 mls @ 1.965 mls/hr 10/31/22 14:15 11/02/22 17:50 Propofol IV 35 mcg/kg/min TITRATE JYOTI 13.755 mls/hr Titration Protocol 5 MCG/KG/MIN NOREPINEPHRINE BITARTRATE/D5W 4 mg in 250 mls @ 30 mls/hr 10/31/22 14:04 11/02/22 18:49 Levophed IV 4 mcg/min TITRATE JYOTI 15 mls/hr Titration Protocol 8 MCG/MIN Fentanyl 1,000 mcg/ Dextrose 250 mls @ 11.463 mls/hr 10/31/22 15:30 11/02/22 10:02 IV 1.5 mcg/kg/hr TITRATE JYOTI 24.563 mls/hr Administration Protocol 0.7 MCG/KG/HR Azithromycin 500 mg/ Dextrose 250 mls @ 250 mls/hr 10/31/22 20:00 11/01/22 23:00 IV 11/03/22 19:59 Infused Q24H JYOTI Infusion dexmedeTOMIDine in 0.9 % NaCL 400 mcg in 100 mls @ 3.275 mls/hr 11/01/22 10:00 11/02/22 16:04 Precedex IV 1 mcg/kg/hr TITRATE JYOTI 16.375 mls/hr Administration Protocol 0.2 MCG/KG/HR Lorazepam 0 mg 10/31/22 00:42 10/31/22 05:04 Lorazepam 2 Mg/Ml Inj IV 2 mg CIWAPRN PRN Administration Alcohol Withdrawal/n/V Protocol Metoclopramide HCl 10 mg 10/30/22 20:29 10/30/22 20:34 Metoclopramide 10 Mg/2 Ml Inj IV 10 mg Q6HR PRN Administration Nausea And Vomiting Multivitamins 1 tab 10/31/22 09:00 11/02/22 08:11 Multivitamin 1 Tablet PO Not Given DAILY JYOTI Nicotine 7 mg 10/31/22 09:00 11/02/22 08:10 Nicotine 7 Mg Patch TOP 7 mg DAILY JYOTI Administration Ondansetron HCl 4 mg 10/31/22 01:07 11/01/22 03:58 Ondansetron 4 Mg/2 Ml Inj IV 4 mg Q4HR PRN Administration Nausea And Vomiting Pantoprazole Sodium 40 mg 10/31/22 21:00 11/02/22 08:10 Pantoprazole 40 Mg Vial IV 40 mg BID JYOTI Administration Objective Ventilator Parameters: Ventilator Settings FiO2 30 RT Vent Frequency 24 Ventilator Tidal Volume 390 Exhaled Vt/kg IBW 5.8 Positive End Expiratory 5 Pressure Inspiratory Phase Time 0.7 I:E Ratio 1:2.6 Patient Position HOB >= 30 degrees Labs Result Diagrams: 11/02/22 15:15 11/02/22 15:15 Labs: Laboratory Results - last 24 hr 10/30/22 11/02/22 11/02/22 16:20 01:15 05:45 WBC 16.1 H RBC 3.33 L Hgb 9.5 L Hct 28.4 L MCV 85.4 MCH 28.4 MCHC 33.2 RDW 14.1 Plt Count 402 H Neut % (Auto) 78.5 H Lymph % (Auto) 11.5 L Cherry % (Auto) 9.3 Eos % (Auto) 0.2 L Baso % (Auto) 0.5 Neut # (Auto) 59633 H Lymph # (Auto) 1900 Cherry # (Auto) 1500 H Eos # (Auto) 0 Baso # (Auto) 100 ABG pH ABG pCO2 ABG pO2 ABG HCO3 ABG Total CO2 ABG O2 Saturation ABG Base Excess FiO2 Sodium Potassium Chloride Carbon Dioxide BUN Creatinine Estimated GFR BUN/Creatinine Ratio Glucose Calcium Magnesium Total Bilirubin AST ALT Alkaline Phosphatase Total Protein Albumin Globulin Albumin/Globulin Ratio Vancomycin Peak Vancomycin Trough 16.1 L.pneumophila Antigen Negative 11/02/22 11/02/22 11/02/22 05:45 05:45 05:45 WBC RBC Hgb Hct MCV MCH MCHC RDW Plt Count Neut % (Auto) Lymph % (Auto) Cherry % (Auto) Eos % (Auto) Baso % (Auto) Neut # (Auto) Lymph # (Auto) Cherry # (Auto) Eos # (Auto) Baso # (Auto) ABG pH ABG pCO2 ABG pO2 ABG HCO3 ABG Total CO2 ABG O2 Saturation ABG Base Excess FiO2 Sodium 135 L Potassium 3.4 Chloride 105 Carbon Dioxide 26 BUN 13 Creatinine 0.62 L Estimated GFR > 60 BUN/Creatinine Ratio 21.0 Glucose 95 Calcium 7.1 L Magnesium 1.7 Total Bilirubin 0.4 AST 30 ALT 11 Alkaline Phosphatase 94 Total Protein 5.1 L Albumin 2.1 L Globulin 3.0 Albumin/Globulin Ratio 0.7 L Vancomycin Peak 23.2 Vancomycin Trough L.pneumophila Antigen 11/02/22 11/02/22 11/02/22 09:55 15:15 15:15 WBC 14.7 H RBC 3.08 L Hgb 8.7 L Hct 26.2 L MCV 85.0 MCH 28.3 MCHC 33.3 RDW 14.0 Plt Count 359 Neut % (Auto) 75.2 H Lymph % (Auto) 14.7 L Cherry % (Auto) 8.9 Eos % (Auto) 0.7 L Baso % (Auto) 0.5 Neut # (Auto) 11288 H Lymph # (Auto) 2200 Cherry # (Auto) 1300 H Eos # (Auto) 100 Baso # (Auto) 100 ABG pH 7.44 ABG pCO2 33.1 L ABG pO2 86 ABG HCO3 22 ABG Total CO2 23 ABG O2 Saturation 97 ABG Base Excess -2.0 FiO2 30 Sodium 136 L Potassium 3.4 Chloride 104 Carbon Dioxide 24 BUN 10 Creatinine 0.57 L Estimated GFR > 60 BUN/Creatinine Ratio 17.5 Glucose 94 Calcium 7.3 L Magnesium Total Bilirubin 0.5 AST 37 ALT 10 Alkaline Phosphatase 89 Total Protein 5.6 L Albumin 2.4 L Globulin 3.2 Albumin/Globulin Ratio 0.8 L Vancomycin Peak Vancomycin Trough L.pneumophila Antigen Exam Vital Signs (past 8 hours): - 11/02/22 12:30 11/02/22 12:30 11/02/22 12:45 Temperature Pulse Rate 91 H Respiratory Rate 24 Blood Pressure 132/86 135/77 Pulse Oximetry 99 Oxygen Delivery Method 11/02/22 12:45 11/02/22 13:00 11/02/22 13:00 Temperature Pulse Rate 85 76 Respiratory Rate 24 24 Blood Pressure 109/64 Pulse Oximetry 99 98 Oxygen Delivery Method 11/02/22 13:15 11/02/22 13:15 11/02/22 13:30 Temperature Pulse Rate 75 75 Respiratory Rate 24 24 Blood Pressure 104/64 Pulse Oximetry 99 99 Oxygen Delivery Method 11/02/22 13:30 11/02/22 14:00 11/02/22 13:45 Temperature Pulse Rate Respiratory Rate Blood Pressure 101/60 104/62 Pulse Oximetry Oxygen Delivery Method Mechanical Ventilation 11/02/22 13:45 11/02/22 14:00 11/02/22 14:00 Temperature Pulse Rate 75 89 Respiratory Rate 24 24 Blood Pressure 119/70 Pulse Oximetry 100 100 Oxygen Delivery Method 11/02/22 14:15 11/02/22 14:15 11/02/22 14:30 Temperature Pulse Rate 75 74 Respiratory Rate 24 24 Blood Pressure 106/63 Pulse Oximetry 100 100 Oxygen Delivery Method 11/02/22 14:30 11/02/22 14:45 11/02/22 14:45 Temperature Pulse Rate 74 Respiratory Rate 24 Blood Pressure 107/65 108/64 Pulse Oximetry 100 Oxygen Delivery Method 11/02/22 15:00 11/02/22 15:00 11/02/22 15:15 Temperature Pulse Rate 74 Respiratory Rate 24 Blood Pressure 110/65 111/66 Pulse Oximetry 100 Oxygen Delivery Method 11/02/22 15:15 11/02/22 15:30 11/02/22 15:30 Temperature 98.7 F Pulse Rate 74 90 Respiratory Rate 24 24 Blood Pressure 118/72 Pulse Oximetry 99 100 Oxygen Delivery Method 11/02/22 15:45 11/02/22 15:45 11/02/22 16:00 Temperature Pulse Rate 75 Respiratory Rate 24 Blood Pressure 108/61 110/64 Pulse Oximetry 99 Oxygen Delivery Method 11/02/22 16:00 11/02/22 16:15 11/02/22 16:15 Temperature Pulse Rate 69 70 Respiratory Rate 24 24 Blood Pressure 106/60 Pulse Oximetry 100 100 Oxygen Delivery Method 11/02/22 16:30 11/02/22 16:30 11/02/22 16:45 Temperature Pulse Rate 72 Respiratory Rate 24 Blood Pressure 111/59 L 106/62 Pulse Oximetry 100 Oxygen Delivery Method 11/02/22 16:45 11/02/22 17:00 11/02/22 17:01 Temperature Pulse Rate 72 88 86 Respiratory Rate 24 28 H 26 H Blood Pressure Pulse Oximetry 100 94 93 Oxygen Delivery Method 11/02/22 17:01 11/02/22 17:16 11/02/22 17:16 Temperature Pulse Rate 73 Respiratory Rate 26 H Blood Pressure 86/51 L 114/60 Pulse Oximetry 100 Oxygen Delivery Method 11/02/22 17:30 11/02/22 17:30 11/02/22 18:00 Temperature 98.5 F Pulse Rate 73 Respiratory Rate 26 H Blood Pressure 108/63 Pulse Oximetry 99 Oxygen Delivery Method Mechanical Ventilation 11/02/22 17:45 11/02/22 17:45 11/02/22 18:00 Temperature Pulse Rate 84 Respiratory Rate 36 H Blood Pressure 91/50 L 152/85 H Pulse Oximetry 96 Oxygen Delivery Method 11/02/22 18:00 11/02/22 18:15 11/02/22 18:15 Temperature Pulse Rate 84 75 Respiratory Rate 28 H 28 H Blood Pressure 116/62 Pulse Oximetry 99 99 Oxygen Delivery Method 11/02/22 18:30 11/02/22 18:30 11/02/22 18:45 Temperature Pulse Rate 83 Respiratory Rate 35 H Blood Pressure 91/55 L 135/71 Pulse Oximetry 94 Oxygen Delivery Method 11/02/22 18:45 11/02/22 19:00 11/02/22 19:00 Temperature Pulse Rate 78 79 Respiratory Rate 26 H 26 H Blood Pressure 134/72 Pulse Oximetry 100 100 Oxygen Delivery Method 11/02/22 20:00 11/02/22 19:15 11/02/22 19:15 Temperature 97.4 F L Pulse Rate 79 Respiratory Rate 26 H Blood Pressure 129/74 Pulse Oximetry 100 Oxygen Delivery Method 11/02/22 19:30 11/02/22 19:30 11/02/22 19:45 Temperature Pulse Rate 78 79 Respiratory Rate 28 H 26 H Blood Pressure 117/65 Pulse Oximetry 98 99 Oxygen Delivery Method 11/02/22 19:45 11/02/22 20:00 11/02/22 20:00 Temperature Pulse Rate 97 H Respiratory Rate 25 H Blood Pressure 123/68 117/68 Pulse Oximetry 99 Oxygen Delivery Method Oxygen Delivery Method Mechanical Ventilation Oxygen Flow Rate 4 Assessment & Plan Time Spent With Patient Critical Care time: I spent a total of [] minutes of critical care time on this patient's care today; this time is exclusive of procedural time.
--- NOTE | 2022-11-02 20:21 | PM.ICURNDS ---
- Date Patient Seen: 11/02/22 Time Patient Seen: 20:21 :: This patient was seen via real time interactive two-way audiovisual telecommunication. Note: Patient discussed with RN. On Propofol @ 35, Fent and Precedex @ 1. Failed SAT again today due to agitation. CT Head negative. Difficulty weaning propofol Bigmeny, HR in the 70s. On Levo 2.5. Received Lasix with 2L UOP. Satting high 90s on current Vent settings: VC 390, 5, 26, 35%. MRSA negative. Cx are NGTD. Currently on Zosyn, Azithro. Blood glucose < 180 Recommendations: N: Can increase Precedex to max of 1.4, monitor HR. Attempt to wean Propofol, then Fentanyl. Check TSH/B12. Can consider Chlodiazepoxide adjunctive therapy for ETOH withdrawal C: Hold home antihypertensives. MAP goal >65. Wean off?Levophed as tolerated. Consider TTE. P: Continue on current settings. Follow up daily CXR, blood gas, daily SBT GI: Continue PPI, MV/Thiamine/Folate. Would start tube feeds. R: Monitor lytes BID if diuresing. Replete as needed - goal K >4, Mg >2 given bigeminy. Monitor UOP: goal >0.5cc/kg/hour H/O: Hgb is slightly downtrending, no e/o bleeding. SCDs, Lovenox ongoing. ID: Continue Zosyn/Azithromycin. Would ensure patient has received as least 5 days of Tamiflu E: Continue to monitor glucose levels. Goal is <180. Total Critical Care time: 35 minutes Contact Tele-ICU if any change in status. We will continue to follow along.
[2022-11-02] MEDS: AZITHROMYCIN 500 MG in DEXTROSE 5% IN WATER 250 ML 250 MG IV (20:28)
[2022-11-02] MEDS: MAGNESIUM SULFATE 2 GM/50 ML PIGGYBACK IV (21:36)
[2022-11-02] MEDS: POTASSIUM CHLORIDE IN WATER 10 MEQ/100 ML PIGGYBACK 100 MEQ IV (23:34)
[2022-11-03] VITALS (112 sets, daily range): BP systolic 72–138; BP diastolic 47–97; PULSE 64–86; RESP 0–28; TEMP 35.9–36.5; O2SAT 87–100
[2022-11-03] MEDS: CHLORHEXIDINE GLUCONATE 15 ML CUP PO ×5 (00:03→23:57)
[2022-11-03] MEDS: POTASSIUM CHLORIDE IN WATER 10 MEQ/100 ML PIGGYBACK 100 MEQ IV ×9 (01:05→22:46)
[2022-11-03] MEDS: NOREPINEPHRINE BITARTRATE/D5W 4 MG/250 ML PLAST..BAG 15 MG IV (01:05)
[2022-11-03] MEDS: dexmedeTOMIDine in 0.9 % NaCL 400 MCG/100 ML PLAST..BAG 16.375 MCG IV (01:23)
[2022-11-03] MEDS: PIPERACILLIN/TAZO 3.375 GM in SODIUM CHLORIDE 0.9% 100 ML IV ×3 (05:02→20:32)
--- NOTE | 2022-11-03 05:56 | PC.NURSE ---
0600- Patient less hemodynamically labile this shift. Good uop. Patient does wake but will not follow commands and his very agitated. Patient attempts to reach his ETT when awake. Little to no oral secretions, Suctioned for scant clear secretions. Unable to wean Levophed past 2 marcelino/min. Patient dentition is very poor with almost every tooth left in the mouth having caries or is broken. MD aware.
[2022-11-03] MEDS: fentaNYL 1,000 MCG in DEXTROSE 5% IN WATER 230 ML 24.563 MCG IV ×2 (06:18→15:58)
[2022-11-03] MEDS: PANTOPRAZOLE 40 MG VIAL IV ×2 (08:09→21:27)
[2022-11-03] MEDS: ENOXAPARIN 40 MG/0.4 ML SYRINGE SUBCUT (08:10)
[2022-11-03] MEDS: FUROSEMIDE 40 MG/4 ML VIAL IV (08:10)
[2022-11-03] MEDS: THIAMINE 100 MG in SODIUM CHLORIDE 0.9% 100 ML 404 MG IV (08:16)
[2022-11-03] MEDS: NICOTINE 7 MG PATCH TOP (08:20)
--- NOTE | 2022-11-03 08:29 | P.TELICUPN_ITS ---
Subjective Subjective IF CAMERA ACTIVATED, patient seen via real-time interactive audiovisual communication: Camera activated Consent obtained for tele-rehabilitation program coordinator care: Yes Patient Location: ICU Provider location (State): [place] Other participants/roles: test Current Medications Current Medications Medications: Home Medications ketorolac 0.4 % eye drops 1 drp OPHTH QID #5 mL 06/20/17 [Rx Confirmed 10/13/18] indomethacin 50 mg capsule 50 mg PO TIDP PRN pain, moderate #90 caps 10/13/18 [Rx] amitriptyline 25 mg tablet 25 mg PO BEDTIME #30 tabs 01/07/19 [Rx] ondansetron 4 mg disintegrating tablet 4 mg PO TID-QID PRN nausea and vomiting #10 tabs 02/24/19 [Rx] cyclobenzaprine 10 mg tablet 10 mg PO TIDP #90 tabs 11/19/19 [Rx] gabapentin 300 mg capsule (Neurontin) 300 mg PO Q8H #90 caps 11/19/19 [Rx] metoprolol succinate 50 mg tablet,extended release 24 hr (Toprol XL) 50 mg PO BID #60 tabs 11/19/19 [Rx] omeprazole 20 mg capsule,delayed release 20 mg PO QDAY #30 caps 11/19/19 [Rx] doxycycline hyclate 100 mg capsule 100 mg PO BID #14 caps 05/03/22 [Rx] Visit Medications (administered) Generic Name Dose Route Start Last Admin Trade Name Freq PRN Reason Stop Dose Admin Chlorhexidine Gluconate 15 ml 10/31/22 18:00 11/03/22 06:17 Chlorhexidine Gluconate 15 Ml Cup PO 15 ml Q6HR JYOTI Administration Enoxaparin Sodium 40 mg 11/02/22 09:45 11/03/22 08:10 Enoxaparin 40 Mg/0.4 Ml Syringe SUBCUT 40 mg DAILY JYOTI Administration Fentanyl 23 mcg 10/31/22 14:54 10/31/22 15:03 Fentanyl 100 Mcg/2 Ml Inj 0.35 mcg/kg (23 mcg) 23 mcg IV Administration Q1HR PRN Pain, Severe (7-10) Folic Acid 1 mg 10/31/22 09:00 11/03/22 08:09 Folic Acid 1 Mg Tablet PO Not Given DAILY JYOTI Furosemide 40 mg 11/02/22 16:00 11/03/22 08:10 Furosemide 40 Mg/4 Ml Vial IV 40 mg 1600,0800 JYOTI Administration Sodium Chloride 1,000 mls @ 100 mls/hr 10/31/22 00:45 11/02/22 17:25 Normal Saline 0.9% IV 0 mls/hr CONT JYOTI Infusion Thiamine HCl 100 mg/ Sodium 101 mls @ 404 mls/hr 10/31/22 09:30 11/03/22 08:16 Chloride IV 404 mls/hr DAILY JYOTI Administration Piperacillin Sod/Tazobactam 100 mls @ 25 mls/hr 10/31/22 12:45 11/03/22 05:02 Sod 3.375 gm/ Sodium Chloride IV 25 mls/hr Q8H JYOTI Administration Sodium Chloride 500 mls @ 1,000 mls/hr 10/31/22 14:03 10/31/22 18:19 Normal Saline 0.9% IV Infused BOLUS PRN Infusion Fluid replacement Propofol 1,000 mg in 100 mls @ 1.965 mls/hr 10/31/22 14:15 11/02/22 22:56 Propofol IV 35 mcg/kg/min TITRATE JYOTI 13.755 mls/hr Administration Protocol 5 MCG/KG/MIN NOREPINEPHRINE BITARTRATE/D5W 4 mg in 250 mls @ 30 mls/hr 10/31/22 14:04 11/03/22 01:05 Levophed IV 4 mcg/min TITRATE JYOTI 15 mls/hr Administration Protocol 8 MCG/MIN Fentanyl 1,000 mcg/ Dextrose 250 mls @ 11.463 mls/hr 10/31/22 15:30 11/03/22 06:18 IV 1.5 mcg/kg/hr TITRATE JYOTI 24.563 mls/hr Administration Protocol 0.7 MCG/KG/HR Azithromycin 500 mg/ Dextrose 250 mls @ 250 mls/hr 10/31/22 20:00 11/02/22 20:28 IV 11/03/22 19:59 250 mls/hr Q24H JYOTI Administration dexmedeTOMIDine in 0.9 % NaCL 400 mcg in 100 mls @ 3.275 mls/hr 11/01/22 10:00 11/03/22 01:23 Precedex IV 1 mcg/kg/hr TITRATE JYOTI 16.375 mls/hr Administration Protocol 0.2 MCG/KG/HR Lorazepam 0 mg 10/31/22 00:42 10/31/22 05:04 Lorazepam 2 Mg/Ml Inj IV 2 mg CIWAPRN PRN Administration Alcohol Withdrawal/n/V Protocol Metoclopramide HCl 10 mg 10/30/22 20:29 10/30/22 20:34 Metoclopramide 10 Mg/2 Ml Inj IV 10 mg Q6HR PRN Administration Nausea And Vomiting Multivitamins 1 tab 10/31/22 09:00 11/03/22 08:10 Multivitamin 1 Tablet PO Not Given DAILY JYOTI Nicotine 7 mg 10/31/22 09:00 11/03/22 08:20 Nicotine 7 Mg Patch TOP 7 mg DAILY JYOTI Administration Ondansetron HCl 4 mg 10/31/22 01:07 11/01/22 03:58 Ondansetron 4 Mg/2 Ml Inj IV 4 mg Q4HR PRN Administration Nausea And Vomiting Pantoprazole Sodium 40 mg 10/31/22 21:00 11/03/22 08:09 Pantoprazole 40 Mg Vial IV 40 mg BID JYOTI Administration Objective Ventilator Parameters: Ventilator Settings FiO2 30 RT Vent Frequency 24 Ventilator Tidal Volume 390 Exhaled Vt/kg IBW 5.8 Positive End Expiratory 5 Pressure Inspiratory Phase Time 0.7 I:E Ratio 1:2.6 Patient Position HOB >= 30 degrees Labs Result Diagrams: 11/07/22 07:46 11/07/22 07:46 Labs: Laboratory Results - last 24 hr 10/30/22 11/02/22 11/02/22 16:20 09:55 15:15 WBC 14.7 H RBC 3.08 L Hgb 8.7 L Hct 26.2 L MCV 85.0 MCH 28.3 MCHC 33.3 RDW 14.0 Plt Count 359 Neut % (Auto) 75.2 H Lymph % (Auto) 14.7 L Carter % (Auto) 8.9 Eos % (Auto) 0.7 L Baso % (Auto) 0.5 Neut # (Auto) 87176 H Lymph # (Auto) 2200 Carter # (Auto) 1300 H Eos # (Auto) 100 Baso # (Auto) 100 ABG pH 7.44 ABG pCO2 33.1 L ABG pO2 86 ABG HCO3 22 ABG Total CO2 23 ABG O2 Saturation 97 ABG Base Excess -2.0 FiO2 30 Sodium Potassium Chloride Carbon Dioxide BUN Creatinine Estimated GFR BUN/Creatinine Ratio Glucose Calcium Total Bilirubin AST ALT Alkaline Phosphatase Total Protein Albumin Globulin Albumin/Globulin Ratio L.pneumophila Antigen Negative 11/02/22 15:15 WBC RBC Hgb Hct MCV MCH MCHC RDW Plt Count Neut % (Auto) Lymph % (Auto) Carter % (Auto) Eos % (Auto) Baso % (Auto) Neut # (Auto) Lymph # (Auto) Carter # (Auto) Eos # (Auto) Baso # (Auto) ABG pH ABG pCO2 ABG pO2 ABG HCO3 ABG Total CO2 ABG O2 Saturation ABG Base Excess FiO2 Sodium 136 L Potassium 3.4 Chloride 104 Carbon Dioxide 24 BUN 10 Creatinine 0.57 L Estimated GFR > 60 BUN/Creatinine Ratio 17.5 Glucose 94 Calcium 7.3 L Total Bilirubin 0.5 AST 37 ALT 10 Alkaline Phosphatase 89 Total Protein 5.6 L Albumin 2.4 L Globulin 3.2 Albumin/Globulin Ratio 0.8 L L.pneumophila Antigen Exam Vital Signs (past 8 hours): Pt is intubated and sedated on vent support. I had multidisciplinary rounds via audio review conference with bedside nurse and 9:30 AM today. Detailed plans for the day was discussed which include as follows Taper and DC propofol drip as tolerated. Continue Precedex and fentanyl as needed. We will start patient on IV Ativan 1 to 2 mg every 4 HRLY IV morphine 1 to 2 mg every 4 and IV Haldol as needed agitation. Today's third day of mechanical ventilation. Patient is on low-dose Levophed at 2 mcg which will be tapered and DC if MAP more than 65. Patient is on DVT and GI prophylaxis. Will decrease FiO2 as tolerated to keep saturation more than 92%. Review of systems cannot be obtained as patient is intubated and sedated on ventilator support. Patient does not open eyes track or follow commands at this time. Will watch for agitation and delirium tremens and heroin withdrawal presently. We will continue supportive care with multivitamins including thiamine antibiotics and mechanical ventilatory support.The main medications at this time include Zosyn azithromycin propofol fentanyl Levophed IV metoprolol. 11/03/22 00:30 11/03/22 00:30 11/03/22 00:45 Temperature Pulse Rate 78 Respiratory Rate 25 H Blood Pressure 104/66 106/74 Pulse Oximetry 99 Oxygen Delivery Method 11/03/22 00:45 11/03/22 01:00 11/03/22 01:00 Temperature Pulse Rate 72 64 Respiratory Rate 24 28 H Blood Pressure 77/49 L Pulse Oximetry 99 97 Oxygen Delivery Method 11/03/22 01:09 11/03/22 01:09 11/03/22 02:00 Temperature Pulse Rate 76 Respiratory Rate 24 Blood Pressure 133/75 Pulse Oximetry 100 Oxygen Delivery Method Mechanical Ventilation 11/03/22 01:15 11/03/22 01:15 11/03/22 01:30 Temperature Pulse Rate 75 Respiratory Rate 24 Blood Pressure 117/75 92/62 Pulse Oximetry 99 Oxygen Delivery Method 11/03/22 01:30 11/03/22 01:46 11/03/22 01:46 Temperature Pulse Rate 71 72 Respiratory Rate 24 24 Blood Pressure 108/65 Pulse Oximetry 98 100 Oxygen Delivery Method 11/03/22 02:00 11/03/22 02:00 11/03/22 02:15 Temperature Pulse Rate 73 71 Respiratory Rate 24 24 Blood Pressure 83/53 L Pulse Oximetry 95 100 Oxygen Delivery Method 11/03/22 02:15 11/03/22 02:30 11/03/22 02:30 Temperature Pulse Rate 69 Respiratory Rate 24 Blood Pressure 107/59 L 105/60 Pulse Oximetry 100 Oxygen Delivery Method 11/03/22 02:45 11/03/22 02:45 11/03/22 03:00 Temperature Pulse Rate 69 Respiratory Rate 24 Blood Pressure 110/62 79/47 L Pulse Oximetry 100 Oxygen Delivery Method 11/03/22 03:00 11/03/22 04:00 11/03/22 03:16 Temperature 97.7 F Pulse Rate 68 73 Respiratory Rate 24 24 Blood Pressure Pulse Oximetry 99 100 Oxygen Delivery Method 11/03/22 03:16 11/03/22 03:31 11/03/22 03:31 Temperature Pulse Rate 70 Respiratory Rate 24 Blood Pressure 138/97 H 112/60 Pulse Oximetry 100 Oxygen Delivery Method 11/03/22 03:45 11/03/22 03:45 11/03/22 04:00 Temperature Pulse Rate 68 Respiratory Rate 24 Blood Pressure 115/67 121/65 Pulse Oximetry 100 Oxygen Delivery Method 11/03/22 04:00 11/03/22 04:15 11/03/22 04:15 Temperature Pulse Rate 68 80 Respiratory Rate 24 24 Blood Pressure 96/62 Pulse Oximetry 100 97 Oxygen Delivery Method 11/03/22 04:31 11/03/22 04:31 11/03/22 04:45 Temperature Pulse Rate 67 69 Respiratory Rate 24 24 Blood Pressure 112/78 Pulse Oximetry 100 100 Oxygen Delivery Method 11/03/22 04:45 11/03/22 05:00 11/03/22 05:00 Temperature Pulse Rate 68 Respiratory Rate 24 Blood Pressure 113/81 118/68 Pulse Oximetry 100 Oxygen Delivery Method 11/03/22 05:15 11/03/22 05:15 11/03/22 06:00 Temperature Pulse Rate 69 Respiratory Rate 24 Blood Pressure 118/71 Pulse Oximetry 100 Oxygen Delivery Method Mechanical Ventilation 11/03/22 05:30 11/03/22 05:30 11/03/22 05:45 Temperature Pulse Rate 69 73 Respiratory Rate 24 24 Blood Pressure 111/73 Pulse Oximetry 99 100 Oxygen Delivery Method 11/03/22 05:45 11/03/22 06:00 11/03/22 06:00 Temperature Pulse Rate 69 Respiratory Rate 24 Blood Pressure 113/63 115/72 Pulse Oximetry 100 Oxygen Delivery Method 11/03/22 06:15 11/03/22 06:15 11/03/22 07:00 Temperature Pulse Rate 73 Respiratory Rate 24 Blood Pressure 108/62 103/63 Pulse Oximetry 100 Oxygen Delivery Method 11/03/22 07:00 11/03/22 07:15 11/03/22 07:15 Temperature Pulse Rate 72 69 Respiratory Rate 24 24 Blood Pressure 110/61 Pulse Oximetry 99 99 Oxygen Delivery Method 11/03/22 07:30 11/03/22 07:30 Temperature Pulse Rate 74 Respiratory Rate 24 Blood Pressure 103/61 Pulse Oximetry 99 Oxygen Delivery Method Oxygen Delivery Method Mechanical Ventilation Oxygen Flow Rate 4 Quality TeleICU VTE Deep Vein Thrombosis/Pulmonary Embolism Present on Admission: No Assessment & Plan Assessment & Plan narrative: Assessment & Plan narrative: 1. Bilateral pneumonia, likely superimposed bacterial, with antecedent influenza A -patient hypoxic, elevated WBC, bilateral consolidation on CT imaging -negative blood and urine cultures thus far -continue zosyn and azithro -follow CBC and cultures -dc vanc due to sputum culture growing only yeast 2. Acute hypoxic and hypercapnic respiratory failure -now intubated due to worsening hypercapnia -likely component of pneumonia and sedative effect from ativan/phenobarb plus dilaudid -continue O2 support and treatment of underlying pneumonia 3.? Possible sepstic shock with acute end-organ failure -presented with pneumonia, elevated lactate, elevated WBC, tachycardic, hypoxic though not hypotensive -treat underlying source of infection -continue NS 100 cc/hour volume support -started levophed due to worsening BP on 11/01 and dc levophed if map above 65 4. Acute metabolic encephalopathy and alcohol withdrawal -continue lorazepam as needed per [facility] protocol -also received phenobarbital in the ED, continue phenobarbital 130 mg IV as needed for severe agitation -NPO due to severe altered mental status -thiamine IV daily -11/[address] noncontrast negative 5. Chronic hypertension -patient on oral metoprolol at home -substitute metoprolol 5 mg IV q.6 hours while patient NPO -telemetry, if bp still high will start iv nicardipine drip or iv esmolol Code status:? Full code Surrogate decision maker: Daughter Elana Do DVT prophylaxis:? Enoxaparin, SCDs Dispo: Several days as still intubated in ICU. Time Spent With Patient Critical Care time: I spent a total of 55 minutes of critical care time on this patient's care today; this time is exclusive of procedural time.
[2022-11-03] MEDS: dexmedeTOMIDine in 0.9 % NaCL 400 MCG/100 ML PLAST..BAG 24.563 MCG IV ×5 (08:36→23:56)
[2022-11-03] MEDS: FOLIC ACID 1 MG TABLET PO (10:25)
[2022-11-03] MEDS: chlordiazePOXIDE 25 MG CAPSULE TUBE (10:26)
[2022-11-03] MEDS: propofoL 1,000 MG/100 ML VIAL 11.79 MG IV (10:37)
--- NOTE | 2022-11-03 11:31 | P.PN_ITS ---
Subjective Subjective Interval history: 61-year-old gentleman with hypertension, ankylosing spondylitis, heroin use, and alcohol dependence who was admitted with influenza a, bacterial pneumonia, acute hypoxic respiratory failure, and alcohol and heroin withdrawal symptoms. Patient remains intubated and sedated. He remains on a Precedex drip and fentanyl as well as propofol. His requiring low-dose Levophed for mild hypotension. He is not been initiated yet on tube feeds. Tele truck bracer has recommended the addition of Librium b.i.d.. Exam Vital Signs (past 8 hours): - 11/03/22 04:00 11/03/22 03:45 11/03/22 03:45 Temperature 97.7 F Pulse Rate 68 Respiratory Rate 24 Blood Pressure 115/67 Pulse Oximetry 100 Oxygen Delivery Method 11/03/22 04:00 11/03/22 04:00 11/03/22 04:15 Temperature Pulse Rate 68 Respiratory Rate 24 Blood Pressure 121/65 96/62 Pulse Oximetry 100 Oxygen Delivery Method 11/03/22 04:15 11/03/22 04:31 11/03/22 04:31 Temperature Pulse Rate 80 67 Respiratory Rate 24 24 Blood Pressure 112/78 Pulse Oximetry 97 100 Oxygen Delivery Method 11/03/22 04:45 11/03/22 04:45 11/03/22 05:00 Temperature Pulse Rate 69 Respiratory Rate 24 Blood Pressure 113/81 118/68 Pulse Oximetry 100 Oxygen Delivery Method 11/03/22 05:00 11/03/22 05:15 11/03/22 05:15 Temperature Pulse Rate 68 69 Respiratory Rate 24 24 Blood Pressure 118/71 Pulse Oximetry 100 100 Oxygen Delivery Method 11/03/22 06:00 11/03/22 05:30 11/03/22 05:30 Temperature Pulse Rate 69 Respiratory Rate 24 Blood Pressure 111/73 Pulse Oximetry 99 Oxygen Delivery Method Mechanical Ventilation 11/03/22 05:45 11/03/22 05:45 11/03/22 06:00 Temperature Pulse Rate 73 Respiratory Rate 24 Blood Pressure 113/63 115/72 Pulse Oximetry 100 Oxygen Delivery Method 11/03/22 06:00 11/03/22 06:15 11/03/22 06:15 Temperature Pulse Rate 69 73 Respiratory Rate 24 24 Blood Pressure 108/62 Pulse Oximetry 100 100 Oxygen Delivery Method 11/03/22 07:00 11/03/22 07:00 11/03/22 07:15 Temperature Pulse Rate 72 69 Respiratory Rate 24 24 Blood Pressure 103/63 Pulse Oximetry 99 99 Oxygen Delivery Method 11/03/22 07:15 11/03/22 07:30 11/03/22 07:30 Temperature Pulse Rate 74 Respiratory Rate 24 Blood Pressure 110/61 103/61 Pulse Oximetry 99 Oxygen Delivery Method 11/03/22 07:30 11/03/22 07:45 11/03/22 07:45 Temperature Pulse Rate 69 Respiratory Rate 24 Blood Pressure 108/75 Pulse Oximetry 99 Oxygen Delivery Method Mechanical Ventilation 11/03/22 08:00 11/03/22 08:00 11/03/22 08:15 Temperature Pulse Rate 70 Respiratory Rate 24 Blood Pressure 117/59 L 109/63 Pulse Oximetry 99 Oxygen Delivery Method 11/03/22 08:15 11/03/22 08:30 11/03/22 08:30 Temperature Pulse Rate 69 70 Respiratory Rate 24 24 Blood Pressure 109/55 L Pulse Oximetry 99 99 Oxygen Delivery Method 11/03/22 08:49 11/03/22 08:49 11/03/22 09:00 Temperature Pulse Rate 68 Respiratory Rate 24 Blood Pressure 95/53 L 95/55 L Pulse Oximetry 98 Oxygen Delivery Method 11/03/22 09:00 11/03/22 09:15 11/03/22 09:15 Temperature Pulse Rate 69 69 Respiratory Rate 24 24 Blood Pressure 92/65 Pulse Oximetry 98 98 Oxygen Delivery Method 11/03/22 09:30 11/03/22 09:30 11/03/22 09:45 Temperature Pulse Rate 69 Respiratory Rate 24 Blood Pressure 88/63 L 95/53 L Pulse Oximetry 98 Oxygen Delivery Method 11/03/22 09:45 11/03/22 10:00 11/03/22 10:00 Temperature Pulse Rate 69 70 Respiratory Rate 24 24 Blood Pressure 93/63 Pulse Oximetry 97 96 Oxygen Delivery Method 11/03/22 10:15 11/03/22 10:15 11/03/22 10:30 Temperature Pulse Rate 69 Respiratory Rate 24 Blood Pressure 94/59 L 98/62 Pulse Oximetry 97 Oxygen Delivery Method 11/03/22 10:30 11/03/22 10:45 11/03/22 10:45 Temperature Pulse Rate 69 69 Respiratory Rate 24 24 Blood Pressure 98/61 Pulse Oximetry 98 98 Oxygen Delivery Method 11/03/22 11:00 11/03/22 11:00 11/03/22 11:15 Temperature 97.6 F Pulse Rate 69 Respiratory Rate 24 Blood Pressure 96/66 Pulse Oximetry 98 Oxygen Delivery Method Oxygen Delivery Method Mechanical Ventilation Oxygen Flow Rate 4 Narrative Exam Narrative: GEN: Ill-appearing middle-aged male, intubated, sedated HEENT:NC, Face symmetric CHEST: Respiratory excursions symmetric, coarse but CTAB CV: RRR, no M/R/G ABD: Soft, NT/ND, BT present in all 4 quadrants, no organomegaly or masses EXTR: warm, well perfused, no C/C/E SKIN: warm and dry, no rash NEURO: Intubated, sedated Objective Labs Result Diagrams: 11/02/22 15:15 11/02/22 15:15 Labs: Laboratory Results - last 24 hr 10/30/22 11/02/22 11/02/22 16:20 15:15 15:15 WBC 14.7 H RBC 3.08 L Hgb 8.7 L Hct 26.2 L MCV 85.0 MCH 28.3 MCHC 33.3 RDW 14.0 Plt Count 359 Neut % (Auto) 75.2 H Lymph % (Auto) 14.7 L Sebastian % (Auto) 8.9 Eos % (Auto) 0.7 L Baso % (Auto) 0.5 Neut # (Auto) 38946 H Lymph # (Auto) 2200 Sebastian # (Auto) 1300 H Eos # (Auto) 100 Baso # (Auto) 100 Sodium 136 L Potassium 3.4 Chloride 104 Carbon Dioxide 24 BUN 10 Creatinine 0.57 L Estimated GFR > 60 BUN/Creatinine Ratio 17.5 Glucose 94 Calcium 7.3 L Total Bilirubin 0.5 AST 37 ALT 10 Alkaline Phosphatase 89 Total Protein 5.6 L Albumin 2.4 L Globulin 3.2 Albumin/Globulin Ratio 0.8 L L.pneumophila Antigen Negative [facility] Medical History Acid reflux Alcohol abuse Ankle pain Ankylosing spondylitis (1985) Ankylosing spondylitis Chronic back pain Foot pain Fracture cervical vertebra-closed GERD (gastroesophageal reflux disease) Hypertension Hypertension Muscle pain Tobacco use disorder, moderate, in early remission Surgical History History of open reduction and internal fixation (ORIF) procedure (2005) History of tonsillectomy Status post colonoscopy (2012) Status post incision and drainage Family History Father No problems noted. Mother Cancer Other Alcoholism Colorectal cancer Social History Smoking Status: Current every day smoker Assessment & Plan Assessment & Plan narrative: 1. Acute hypoxic respiratory failure patient remains intubated/mechanically ventilated. Continue ventilator support. Tele truck bracer plans to reduce sedation today to determine if patient can pass a spontaneous breathing trial. Patient remains on Zosyn and azithromycin for pneumonia. He will complete azithromycin course today. He remains on IV furosemide as well. 2. Bilateral bacterial pneumonia [place] to be superinfection in the setting of influenza A. As noted, he remains on Zosyn and azithromycin. 3. Influenza A Continuing supportive care. 4. Alcohol dependence with withdrawal Patient is presently on a Precedex drip. Will add Librium 25 mg b.i.d. per tele truck bracer recommendation. He has received IV thiamine x3 days. Will give folic acid per tube. 5. Heroin dependence Continuing supportive care. 6. Possible septic shock with acute end-organ failure new line patient presented with pneumonia, lactic acidosis, leukocytosis, tachycardia, and hypoxia. He has been on IV fluids. Overall, sepsis physiology has improved. 7. Acute metabolic encephalopathy Likely multifactorial from infection, sepsis, alcohol withdrawal. 8. Essential hypertension On metoprolol on an outpatient basis. This has been held in the setting of sepsis. 9. Protein calorie malnutrition Will initiate tube feeds today. Dietitian consult requested. 10. Normocytic anemia Hemoglobin is 8.7 on yesterday's drop. His hemoglobin was 10.8 on admission. Likely a component of hemodilution. No evidence of bleeding. Code status Full Prophylaxis Lovenox Disposition ICU Time Spent With Patient Critical Care time: I spent a total of [] minutes of critical care time on this patient's care today; this time is exclusive of procedural time. Quality VTE Deep Vein Thrombosis/Pulmonary Embolism Present on Admission: No
--- NOTE | 2022-11-03 12:08 | DIET.CONS ---
Dietary Consultation Note Admission Date: 10/30/2022 20:22 Assessment: 61y M admitted for influenza A, bacterial pneumonia, acute hypoxic respiratory failure, etoh and heroin withdrawl requiring intubation referred to nutrition for nutrition support reccs. Upon chart review, pt with severe chronic malnutrition r/t substance use (etoh and heroin). Pt had been established c PCP Parminder in 2018 when he was 93kg and inquiring about narcotic Rx for chronic back/neck pain. Narcotics not prescribed r/t broken pain contract in past. Soon after, pts and pt with visit to ED for etoh intoxication. Since then pt has lost significant weight, currently 71% of his usual body weight. Pt at moderate risk for refeeding syndrome as team unable to communicate with pt on PO intake over the past week, food security etc. Pt intubated on day 3 NPO. Pts BPs low, 80s-90s/50s-60s. Enteral perfusion poor when MAP <65 which is contraindicated to enteral feeding. Recc initiation of continuous TF via OG (Glucerna 1.5) at 10mL/h for 12h to test for feeding tolerance when MAP reliably >65 then titrate slowly up to goal as outlined below. Pt with PreDM A1c 5.8. Ht: 170.18 cm Wt: 66.9 kg (71% of UBW) BMI: 23.0 UBW: 93kg Last BM: () MNA: Inder Score: 10 Nutrition Percent Meal Consumed NPO 11/02/22 15:23 Labs: RBC 3.08 X10^6/uL (4.5-5.9) L 11/02/22 15:15 Hgb 8.7 g/dL (13.5-17.5) L 11/02/22 15:15 Hct 26.2 % (41-53) L 11/02/22 15:15 Creatinine 0.57 mg/dL (0.66-1.25) L 11/02/22 15:15 Hemoglobin A1c 5.8 % (4.0-6.0) 10/30/22 16:10 Lactate 1.9 mmol/L (0.7-2.1) 10/31/22 15:15 NT-Pro-B Natriuret Pep 9880 pg/mL (<125) H 10/31/22 06:46 Nutrition Diagnosis: Severe Chronic Malnutrition r/t inadequate diet aeb pt active heroin and etoh user currently intubated in withdrawal, pt 71% UBW, wt loss started upon of spouse. Interventions: 1. Rec HOB elevated >30 degrees during feeding. 2. When MAP >65, recc initiation of continuous enteral feeding via OG of formula Glucerna 1.5 starting conservatively at 10mL/h for 12h to test for feeding tolerance. If pt remains stable and tolerates trophic feed, recc advancing rate by 10mL q8h until reaching goal rate of 45mL/h with 150mL free water flushes q4h. Goal feeding provides 1620kcals (24kcal/kg), 89g PRO (1.3g/kg) and 144g CHO. Feed plus flushes provide 1720mL fluids (26mL/kg) remainder of fluids to be managed by hospitalist/senior reservoir engineer. Monitoring/Evaluations: RD in on Saturday to assess for formula or rate changes. Electronically Signed by: Pati Parikh 11/03/22 12:08 Clinical Dietitian [address] [id number]
--- NOTE | 2022-11-03 13:36 | PC.NURSE ---
At start of shift pt's Precedex infusing at 1.5 mcg/kg/hr, as per report. However, MAR stated Precedex at 1 mcg/kg/hr. Updated MAR according to accurate infusion dose.
--- NOTE | 2022-11-03 14:30 | DI.RAD.S_ITS ---
PROCEDURE: XR CHEST 1V INDICATIONS: Respiratory failure TECHNIQUE: One view of the chest was acquired. COMPARISON: [facility], CR, XR CHEST 1V, 11/02/2022, 9:37. FINDINGS: Surgical changes and devices: Cervical thoracic fusion hardware. NGT is present. ETT is present. Lungs and pleura: There is moderate bibasilar pulmonary airspace opacity No pleural effusions or pneumothorax. Mediastinum: Mediastinal contours appear normal. Heart size is normal. Bones and chest wall: No suspicious bony lesions. Overlying soft tissues appear unremarkable. IMPRESSION: 1. Bibasilar pneumonia. Continued plain film surveillance is recommended to ensure resolution, and to exclude underlying or central malignancy. Dictated by: Ra Tinajero M.D. on 11/03/2022 at 13:20 Approved by: Ra Tinajero M.D. on 11/03/2022 at 13:22
[2022-11-03 14:49] LABS: Add Manual Diff / Slide Review NO; Basophils Absolute Auto 100 /uL (0-100); Basophils Percent Auto 0.7 % (0-2); Eosinophils Absolute Auto 400 /uL (0-450); Eosinophils Percent Auto 2.7 % (2-4); Hematocrit 30.7 % (41-53); Hemoglobin 10.6 g/dL (13.5-17.5); Lymphocytes Absolute Auto 1900 /uL (1100-4500); Lymphocytes Percent Auto 11.5 % (25-40); Mean Corpuscular HGB Conc 34.6 % (30-36); Mean Corpuscular Hemoglobin 28.8 PG (26-34); Mean Corpuscular Volume 83.1 fL (80-100); Monocytes Absolute Auto 1300 /uL (0-900); Monocytes Percent Auto 8.3 % (3-14); Neutrophils Absolute Auto 12400 /uL (1500-7000); Neutrophils Percent Auto 76.8 % (50-75); Platelet Count 483 X10^3/uL (150-400); Red Blood Cell Count 3.69 X10^6/uL (4.5-5.9); Red Cell Distribution Width 13.6 % (11.6-14.8); White Blood Cell Count 16.1 X10^3/uL (4.5-11.0)
[2022-11-03 15:19] LABS: Alanine Aminotransferase 11 IU/L (<50); Albumin 2.8 g/dL (3.5-5.0); Albumin Globulin Ratio 0.7 (1.0-2.8); Alkaline Phosphatase 130 U/L (38-126); Aspartate Aminotransferase 20 IU/L (17-59); BUN Creatinine Ratio 12.7 (6-22); Bilirubin Total 1.1 mg/dL (0.2-1.3); Blood Urea Nitrogen 7 mg/dL (9-20); Calcium 7.5 mg/dL (8.4-10.2); Carbon Dioxide 32 mmol/L (22-32); Chloride 93 mmol/L (98-107); Estimated Glomerular Filt Rate > 60 mL/min (>60); Globulin 3.8 g/dL (1.7-4.1); Glucose 101 mg/dL (80-110); HEMOLYSIS < 15 (0-50); Sodium 135 mmol/L (137-145); Total Protein 6.6 g/dL (6.3-8.2)
[2022-11-03 15:22] LABS: Potassium 2.7 mmol/L (3.4-5.1)
[2022-11-03 15:42] LABS: Magnesium 1.5 mg/dL (1.6-2.3)
[2022-11-03] MEDS: LORazepam 2 MG/ML INJ 1 MG IV (15:43)
--- NOTE | 2022-11-03 15:44 | CM.DPC ---
DCP Cont: Per MD, pt remains intubated and sedated and likely also in alcohol withdrawals. SW met bedside with pt's exwife Mercedes and his step dtr Sharda. Both live locally and are supportive and pt has had other family members bedside today as well. Mercedes and Sharda confirm that pt lives in [facility] with extended family (maybe sister and JUSTINE) and is independent at baseline, does not use DME for ambulation, drives and denies any hx of HH or SNF. Pt's PCP used to be Dr. Chanel at [facility] and since Dr Chanel has retired pt has not really been established with PCP but does go to the [facility] for medical needs. Mercedes and Sharda confirm that pt did not really have a hx of ETOH until Sharda's mom (pt's ) 3 years ago from cancer and then pt increased his drinking and maybe some drug use at that time and has progressively gotten worse. Pt does not have a hx of ETOH tx. Family does not know of any other supportive services that have been in place or needed until now. SW discussed need for pt to be successfully extubated and then likely to work with PT/OT to determine d/c planning needs and if pt will be ambulatory enough to safely d/c home with family assist or if any further identified needs determined. Pt needing further sedation with SW bedside as he kept waking up but unable to follow commands and not safe for extubation yet at this time. Pt has one local adult Dtr and two local adult sons. No formal DPOA known at this time. Plan: SW to follow closely for ongoing attempts at extubation and likely need for eventual PT eval to determine d/c planning needs. VARGAS Cutler
[2022-11-03] MEDS: propofoL 1,000 MG/100 ML VIAL 15.72 MG IV ×2 (15:58→22:33)
[2022-11-03] MEDS: MAGNESIUM SULFATE 2 GM/50 ML PIGGYBACK IV (16:28)
[2022-11-03] MEDS: HALOPERIDOL 5 MG/ML VIAL IV (16:42)
--- NOTE | 2022-11-03 19:19 | PC.NURSE ---
Pt sedated on Precedex, Propofol, and Fentanyl. Attempted to wean Propofol without success, pt repeatedly agitated RASS +2, unable to FC or be redirected. PRN Ativan x1 and Haldol x1 with initial relief, refer to MAR. B/l soft wrist restraints in place for pt safety. Pt intubated 30% PEEP 5, no desats. NSR. Levo infusing for MAP >[address] Queen. TF via OGT started, trickle feeds. Ok to use OGT per Dr. Panchal. No BM. Sindhu w/ NIECY.
--- NOTE | 2022-11-03 20:44 | PM.ICURNDS ---
- :: This patient was seen via real time interactive two-way audiovisual telecommunication. Patient remains o Fentanyl , precedex and propofol at high doses. RASS currrently seems ~ -2 -3 dureing my video eval. Will increase librium dose to 50mg. on TF, and gidvt ppx. goal map > 65 mmhg remains on zosyn. f/u cx
[2022-11-03] MEDS: NOREPINEPHRINE BITARTRATE/D5W 4 MG/250 ML PLAST..BAG 16.875 MG IV (20:48)
[2022-11-03] MEDS: fentaNYL 1,000 MCG in DEXTROSE 5% IN WATER 230 ML 32.75 MCG IV (23:48)
[2022-11-03] MEDS: chlordiazePOXIDE 25 MG CAPSULE 50 MG TUBE (23:57)
[2022-11-04] VITALS (195 sets, daily range): BP systolic 66–165; BP diastolic 44–104; PULSE 66–208; RESP 9–52; TEMP 35.8–36.7; O2SAT 83–100
[2022-11-04] MEDS: POTASSIUM CHLORIDE IN WATER 10 MEQ/100 ML PIGGYBACK 100 MEQ IV ×6 (00:09→13:39)
[2022-11-04] MEDS: PIPERACILLIN/TAZO 3.375 GM in SODIUM CHLORIDE 0.9% 100 ML IV ×3 (04:06→20:34)
[2022-11-04] MEDS: dexmedeTOMIDine in 0.9 % NaCL 400 MCG/100 ML PLAST..BAG 24.563 MCG IV ×2 (04:07→07:59)
--- NOTE | 2022-11-04 04:32 | PC.NURSE ---
0430- Titration of gtts is slow as patient wakes easily. Remains in bigiminey and trigeminy, NSR at baseline. Good UOP eleazar color. Lungs are clear. Trickle feed per order. Librium dose increased per order. Will monitor.
[2022-11-04 05:20] LABS: Add Manual Diff / Slide Review NO; Basophils Absolute Auto 100 /uL (0-100); Basophils Percent Auto 0.4 % (0-2); Eosinophils Absolute Auto 900 /uL (0-450); Eosinophils Percent Auto 5.9 % (2-4); Hematocrit 29.7 % (41-53); Hemoglobin 10.1 g/dL (13.5-17.5); Lymphocytes Absolute Auto 1800 /uL (1100-4500); Lymphocytes Percent Auto 11.9 % (25-40); Mean Corpuscular Hemoglobin 28.5 PG (26-34); Monocytes Absolute Auto 1200 /uL (0-900); Monocytes Percent Auto 7.5 % (3-14); Neutrophils Absolute Auto 11400 /uL (1500-7000); Neutrophils Percent Auto 74.3 % (50-75); Platelet Count 473 X10^3/uL (150-400); Red Blood Cell Count 3.54 X10^6/uL (4.5-5.9); White Blood Cell Count 15.4 X10^3/uL (4.5-11.0)
[2022-11-04 05:23] LABS: Alanine Aminotransferase 11 IU/L (<50); Albumin 2.6 g/dL (3.5-5.0); Albumin Globulin Ratio 0.7 (1.0-2.8); Alkaline Phosphatase 114 U/L (38-126); Aspartate Aminotransferase 31 IU/L (17-59); Bilirubin Total 1.3 mg/dL (0.2-1.3); Blood Urea Nitrogen 5 mg/dL (9-20); Calcium 7.5 mg/dL (8.4-10.2); Carbon Dioxide 32 mmol/L (22-32); Chloride 96 mmol/L (98-107); Estimated Glomerular Filt Rate > 60 mL/min (>60); Globulin 3.5 g/dL (1.7-4.1); Glucose 100 mg/dL (80-110); HEMOLYSIS < 15 (0-50); Potassium 3.2 mmol/L (3.4-5.1); Sodium 133 mmol/L (137-145); Total Protein 6.1 g/dL (6.3-8.2)
--- NOTE | 2022-11-04 05:55 | PM.PN.1 ---
Subjective Subjective Interval history: 61-year-old gentleman with hypertension, ankylosing spondylitis, heroin use, and alcohol dependence who was admitted with influenza a, bacterial pneumonia, acute hypoxic respiratory failure, and alcohol and heroin withdrawal symptoms. Patient partially self-extubated this morning.? He remains on a Precedex drip and fentanyl as well as propofol.? His requiring low-dose Levophed for mild hypotension.? Fentanyl and propofol are discontinued. Respiratory therapy was called and I was present during patient's extubation. He was following commands appropriately. Tele credit risk modeler recommended ongoing management of his agitation with as needed medications. He remains on low-dose Precedex for now. As he continues to require Levophed for blood pressure control, he remains ICU status. Exam Vital Signs (past 8 hours): - 11/03/22 22:00 11/03/22 22:00 11/03/22 22:14 Temperature Pulse Rate 71 69 Respiratory Rate 24 24 Blood Pressure 97/50 L Pulse Oximetry 99 99 Oxygen Delivery Method 11/03/22 22:15 11/03/22 22:15 11/03/22 22:30 Temperature Pulse Rate 71 Respiratory Rate 24 Blood Pressure 100/65 91/60 Pulse Oximetry 100 Oxygen Delivery Method 11/03/22 22:30 11/03/22 22:45 11/03/22 22:45 Temperature Pulse Rate 69 70 Respiratory Rate 24 24 Blood Pressure 96/69 Pulse Oximetry 100 100 Oxygen Delivery Method 11/03/22 23:00 11/03/22 23:00 11/03/22 23:15 Temperature Pulse Rate 70 Respiratory Rate 24 Blood Pressure 110/70 103/59 L Pulse Oximetry 100 Oxygen Delivery Method 11/03/22 23:15 11/03/22 23:30 11/03/22 23:30 Temperature Pulse Rate 70 70 Respiratory Rate 24 24 Blood Pressure 100/56 L Pulse Oximetry 100 100 Oxygen Delivery Method 11/03/22 23:45 11/03/22 23:45 11/04/22 00:00 Temperature Pulse Rate 70 Respiratory Rate 24 Blood Pressure 111/73 102/59 L Pulse Oximetry 100 Oxygen Delivery Method 11/04/22 00:00 11/04/22 00:00 11/04/22 00:15 Temperature 96.5 F L Pulse Rate 70 70 Respiratory Rate 24 24 Blood Pressure Pulse Oximetry 100 97 Oxygen Delivery Method Mechanical Ventilation 11/04/22 00:15 11/04/22 00:30 11/04/22 00:30 Temperature Pulse Rate 69 Respiratory Rate 24 Blood Pressure 86/50 L 89/61 L Pulse Oximetry 99 Oxygen Delivery Method 11/04/22 00:45 11/04/22 00:45 11/04/22 01:00 Temperature Pulse Rate 70 Respiratory Rate 24 Blood Pressure 93/52 L 98/62 Pulse Oximetry 99 Oxygen Delivery Method 11/04/22 01:00 11/04/22 01:15 11/04/22 01:15 Temperature Pulse Rate 69 69 Respiratory Rate 24 24 Blood Pressure 102/70 Pulse Oximetry 99 99 Oxygen Delivery Method 11/04/22 01:31 11/04/22 01:31 11/04/22 01:45 Temperature Pulse Rate 69 Respiratory Rate 24 Blood Pressure 107/58 L 111/60 Pulse Oximetry 99 Oxygen Delivery Method 11/04/22 01:45 11/04/22 02:00 11/04/22 02:00 Temperature Pulse Rate 69 69 Respiratory Rate 24 24 Blood Pressure 99/56 L Pulse Oximetry 99 99 Oxygen Delivery Method 11/04/22 02:15 11/04/22 02:15 11/04/22 02:30 Temperature Pulse Rate 85 Respiratory Rate 24 Blood Pressure 125/68 94/58 L Pulse Oximetry 99 Oxygen Delivery Method 11/04/22 02:30 11/04/22 02:45 11/04/22 02:45 Temperature Pulse Rate 67 67 Respiratory Rate 24 24 Blood Pressure 90/60 Pulse Oximetry 99 99 Oxygen Delivery Method 11/04/22 03:00 11/04/22 03:00 11/04/22 03:15 Temperature Pulse Rate 67 Respiratory Rate 24 Blood Pressure 96/65 101/66 Pulse Oximetry 99 Oxygen Delivery Method 11/04/22 03:15 11/04/22 03:30 11/04/22 03:30 Temperature Pulse Rate 67 67 Respiratory Rate 24 24 Blood Pressure 98/65 Pulse Oximetry 99 99 Oxygen Delivery Method 11/04/22 03:45 11/04/22 03:45 11/04/22 04:00 Temperature Pulse Rate 67 Respiratory Rate 24 Blood Pressure 94/65 Pulse Oximetry 99 Oxygen Delivery Method Mechanical Ventilation 11/04/22 04:00 11/04/22 04:00 11/04/22 04:16 Temperature Pulse Rate 67 Respiratory Rate 24 Blood Pressure 101/70 118/76 Pulse Oximetry 99 Oxygen Delivery Method 11/04/22 04:16 11/04/22 04:30 11/04/22 04:30 Temperature Pulse Rate 70 68 Respiratory Rate 24 24 Blood Pressure 88/61 L Pulse Oximetry 100 99 Oxygen Delivery Method 11/04/22 04:45 11/04/22 04:45 11/04/22 05:00 Temperature Pulse Rate 69 Respiratory Rate 24 Blood Pressure 96/63 94/66 Pulse Oximetry 99 Oxygen Delivery Method 11/04/22 05:00 11/04/22 05:15 11/04/22 05:15 Temperature Pulse Rate 69 67 Respiratory Rate 24 24 Blood Pressure 93/63 Pulse Oximetry 100 100 Oxygen Delivery Method Oxygen Delivery Method Mechanical Ventilation Oxygen Flow Rate 4 Narrative Exam Narrative: GEN:? Ill-appearing middle-aged male, alert, frequent harsh wet cough, able to expectorate yellowish sputum, following commands HEENT:NC, Face symmetric CHEST: Respiratory excursions symmetric, coarse but CTAB CV: RRR, no M/R/G ABD: Soft, NT/ND, BT present in all 4 quadrants, no organomegaly or masses EXTR: warm, well perfused, no C/C/E SKIN: warm and dry, no rash NEURO:? Alert, answering some questions with simple responses, following commands Objective Labs Result Diagrams: 11/04/22 04:30 11/04/22 04:30 Labs: Laboratory Results - last 24 hr 11/03/22 11/03/22 11/03/22 14:35 14:35 14:35 WBC 16.1 H RBC 3.69 L Hgb 10.6 L Hct 30.7 L MCV 83.1 MCH 28.8 MCHC 34.6 RDW 13.6 Plt Count 483 H Neut % (Auto) 76.8 H Lymph % (Auto) 11.5 L [place] % (Auto) 8.3 Eos % (Auto) 2.7 Baso % (Auto) 0.7 Neut # (Auto) 76880 H Lymph # (Auto) 1900 [place] # (Auto) 1300 H Eos # (Auto) 400 Baso # (Auto) 100 Sodium 135 L Potassium 2.7 L* Chloride 93 L Carbon Dioxide 32 BUN 7 L Creatinine 0.55 L Estimated GFR > 60 BUN/Creatinine Ratio 12.7 Glucose 101 Calcium 7.5 L Magnesium 1.5 L Total Bilirubin 1.1 AST 20 ALT 11 Alkaline Phosphatase 130 H Total Protein 6.6 Albumin 2.8 L Globulin 3.8 Albumin/Globulin Ratio 0.7 L 11/04/22 11/04/22 04:30 04:30 WBC 15.4 H RBC 3.54 L Hgb 10.1 L Hct 29.7 L MCV 84.0 MCH 28.5 MCHC 34.0 RDW 14.0 Plt Count 473 H Neut % (Auto) 74.3 Lymph % (Auto) 11.9 L [place] % (Auto) 7.5 Eos % (Auto) 5.9 H Baso % (Auto) 0.4 Neut # (Auto) 33798 H Lymph # (Auto) 1800 [place] # (Auto) 1200 H Eos # (Auto) 900 H Baso # (Auto) 100 Sodium 133 L Potassium 3.2 L Chloride 96 L Carbon Dioxide 32 BUN 5 L Creatinine 0.50 L Estimated GFR > 60 BUN/Creatinine Ratio 10.0 Glucose 100 Calcium 7.5 L Magnesium Total Bilirubin 1.3 AST 31 ALT 11 Alkaline Phosphatase 114 Total Protein 6.1 L Albumin 2.6 L Globulin 3.5 Albumin/Globulin Ratio 0.7 L [facility] Medical History Acid reflux Alcohol abuse Ankle pain Ankylosing spondylitis (1985) Ankylosing spondylitis Chronic back pain Foot pain Fracture cervical vertebra-closed GERD (gastroesophageal reflux disease) Hypertension Hypertension Muscle pain Tobacco use disorder, moderate, in early remission Surgical History History of open reduction and internal fixation (ORIF) procedure (2005) History of tonsillectomy Status post colonoscopy (2012) Status post incision and drainage Family History Father No problems noted. Mother Cancer Other Alcoholism Colorectal cancer Social History Smoking Status: Current every day smoker Assessment & Plan Assessment & Plan narrative: 1. Acute hypoxic respiratory failure Patient extubated this morning after partial self-extubation. He is tolerating transition to nasal cannula O2 well. Continuing to reduce sedation. Patient remains on Zosyn for pneumonia. Completed a course of azithromycin..? Furosemide being discontinued. 2. Bilateral bacterial pneumonia [place] to be superinfection in the setting of influenza A.? As noted, he remains on Zosyn. 3. Influenza A Continuing supportive care. 4. Alcohol dependence with withdrawal Patient is presently on a Precedex drip.? He is also receiving Librium. He received 3 days of IV thiamine. Plan to resume multivitamin and folate orally once he is cleared per speech therapy for a diet. 5. Heroin dependence Continuing supportive care. 6. Possible septic shock with acute end-organ failure patient presented with pneumonia, lactic acidosis, leukocytosis, tachycardia, and hypoxia.? He has been on IV fluids.? Overall, sepsis physiology has resolved. 7. Acute metabolic encephalopathy Likely multifactorial from infection, sepsis, alcohol withdrawal. Seems to be improving overall. Will likely continue to require some as needed medication for management. 8. Essential hypertension On metoprolol on an outpatient basis.? This has been held in the setting of sepsis. 9. Protein calorie malnutrition Tube feeds initiated yesterday at 10 cc/hour. Now that he is extubated, those have been discontinued. Await for speech therapy to clear him for a diet. 10. Normocytic anemia Hemoglobin is stable at 10.1. 11. Hypokalemia continue to replete per pharmacy. Code status Full Prophylaxis Lovenox Disposition ICU Time Spent With Patient Critical Care time: I spent a total of [] minutes of critical care time on this patient's care today; this time is exclusive of procedural time. Quality VTE Deep Vein Thrombosis/Pulmonary Embolism Present on Admission: No
[2022-11-04] MEDS: chlordiazePOXIDE 25 MG CAPSULE 50 MG TUBE (06:00)
[2022-11-04] MEDS: CHLORHEXIDINE GLUCONATE 15 ML CUP PO (06:00)
[2022-11-04] MEDS: fentaNYL 1,000 MCG in DEXTROSE 5% IN WATER 230 ML 24.563 MCG IV (08:08)
[2022-11-04] MEDS: PANTOPRAZOLE 40 MG VIAL IV ×2 (08:09→20:34)
[2022-11-04] MEDS: ENOXAPARIN 40 MG/0.4 ML SYRINGE SUBCUT (08:10)
[2022-11-04] MEDS: FOLIC ACID 1 MG TABLET PO (08:10)
[2022-11-04] MEDS: MULTIVITAMIN 1 TABLET 1 TAB PO (08:10)
[2022-11-04] MEDS: NICOTINE 7 MG PATCH TOP (08:40)
[2022-11-04] MEDS: THIAMINE 100 MG in SODIUM CHLORIDE 0.9% 100 ML 404 MG IV (08:40)
--- NOTE | 2022-11-04 09:17 | PM.PN.EICU ---
Subjective Subjective IF CAMERA ACTIVATED, patient seen via real-time interactive audiovisual communication: Camera activated (MD/RN) Consent obtained for tele-professor of law care: Yes Patient Location: ICU Provider location (State): [place] Other participants/roles: test Interval history: I did multidisciplinary rounds at 9:30 AM with bedside nurse under A/V guidance. We went over detailed plans for the day which will be as follows. Patient has already been extubated and respiratory and mental status appears to be stable with no episodes of agitation hypoxemia or distress. We will discontinue the Lasix presently and taper and DC Levophed if MAP more than 65. We will proceed with bedside swallow and DC n.p.o. start clear liquids advance as tolerated if patient passes swallow eval. We will taper and DC Precedex as tolerated. We will follow septic work-up as WBC count is 15,000 currently on Zosyn. I will use IV Haldol IV Ativan and IV morphine as needed for acute severe agitation. Current Medications Current Medications Medications: Home Medications ketorolac 0.4 % eye drops 1 drp OPHTH QID #5 mL 06/20/17 [Rx Confirmed 10/13/18] indomethacin 50 mg capsule 50 mg PO TIDP PRN pain, moderate #90 caps 10/13/18 [Rx] amitriptyline 25 mg tablet 25 mg PO BEDTIME #30 tabs 01/07/19 [Rx] ondansetron 4 mg disintegrating tablet 4 mg PO TID-QID PRN nausea and vomiting #10 tabs 02/24/19 [Rx] cyclobenzaprine 10 mg tablet 10 mg PO TIDP #90 tabs 11/19/19 [Rx] gabapentin 300 mg capsule (Neurontin) 300 mg PO Q8H #90 caps 11/19/19 [Rx] metoprolol succinate 50 mg tablet,extended release 24 hr (Toprol XL) 50 mg PO BID #60 tabs 11/19/19 [Rx] omeprazole 20 mg capsule,delayed release 20 mg PO QDAY #30 caps 11/19/19 [Rx] doxycycline hyclate 100 mg capsule 100 mg PO BID #14 caps 05/03/22 [Rx] Visit Medications (administered) Generic Name Dose Route Start Last Admin Trade Name Freq PRN Reason Stop Dose Admin Chlordiazepoxide HCl 50 mg 11/04/22 00:00 11/04/22 06:00 Chlordiazepoxide 25 Mg Capsule TUBE 50 mg Q6HR JYOTI Administration Chlorhexidine Gluconate 15 ml 10/31/22 18:00 11/04/22 06:00 Chlorhexidine Gluconate 15 Ml Cup PO 15 ml Q6HR JYOTI Administration Enoxaparin Sodium 40 mg 11/02/22 09:45 11/04/22 08:10 Enoxaparin 40 Mg/0.4 Ml Syringe SUBCUT 40 mg DAILY JYOTI Administration Folic Acid 1 mg 10/31/22 09:00 11/04/22 08:10 Folic Acid 1 Mg Tablet PO 1 mg DAILY JYOTI Administration Furosemide 40 mg 11/02/22 16:00 11/04/22 08:27 Furosemide 40 Mg/4 Ml Vial IV Not Given 1600,0800 JYOTI Haloperidol 5 mg 11/03/22 13:46 11/03/22 16:42 Haloperidol 5 Mg/Ml Vial IV 5 mg Q4HR PRN Administration Agitation Sodium Chloride 1,000 mls @ 100 mls/hr 10/31/22 00:45 11/02/22 17:25 Normal Saline 0.9% IV 0 mls/hr CONT JYOTI Infusion Thiamine HCl 100 mg/ Sodium 101 mls @ 404 mls/hr 10/31/22 09:30 11/04/22 09:06 Chloride IV Infused DAILY JYOTI Infusion Piperacillin Sod/Tazobactam 100 mls @ 25 mls/hr 10/31/22 12:45 11/04/22 08:13 Sod 3.375 gm/ Sodium Chloride IV Infused Q8H JYOTI Infusion Sodium Chloride 500 mls @ 1,000 mls/hr 10/31/22 14:03 10/31/22 18:19 Normal Saline 0.9% IV Infused BOLUS PRN Infusion Fluid replacement Propofol 1,000 mg in 100 mls @ 1.965 mls/hr 10/31/22 14:15 11/04/22 08:16 Propofol IV Infused TITRATE JYOTI Titration Protocol 5 MCG/KG/MIN NOREPINEPHRINE BITARTRATE/D5W 4 mg in 250 mls @ 30 mls/hr 10/31/22 14:04 11/04/22 09:16 Levophed IV 5 mcg/min TITRATE JYOTI 18.75 mls/hr Titration Protocol 8 MCG/MIN Fentanyl 1,000 mcg/ Dextrose 250 mls @ 11.463 mls/hr 10/31/22 15:30 11/04/22 09:06 IV 0 mcg/kg/hr TITRATE JYOTI 0 mls/hr Titration Protocol 0.7 MCG/KG/HR dexmedeTOMIDine in 0.9 % NaCL 400 mcg in 100 mls @ 3.275 mls/hr 11/01/22 10:00 11/04/22 09:16 Precedex IV 1 mcg/kg/hr TITRATE JYOTI 16.375 mls/hr Titration Protocol 0.2 MCG/KG/HR Lorazepam 0 mg 10/31/22 00:42 10/31/22 05:04 Lorazepam 2 Mg/Ml Inj IV 2 mg CIWAPRN PRN Administration Alcohol Withdrawal/n/V Protocol Lorazepam 1 mg 11/03/22 13:40 11/03/22 15:43 Lorazepam 2 Mg/Ml Inj IV 1 mg Q4HR PRN Administration Agitation Metoclopramide HCl 10 mg 10/30/22 20:29 10/30/22 20:34 Metoclopramide 10 Mg/2 Ml Inj IV 10 mg Q6HR PRN Administration Nausea And Vomiting Multivitamins 1 tab 10/31/22 09:00 11/04/22 08:10 Multivitamin 1 Tablet PO 1 tab DAILY JYOTI Administration Nicotine 7 mg 10/31/22 09:00 11/04/22 08:40 Nicotine 7 Mg Patch TOP 7 mg DAILY JYOTI Administration Ondansetron HCl 4 mg 10/31/22 01:07 11/01/22 03:58 Ondansetron 4 Mg/2 Ml Inj IV 4 mg Q4HR PRN Administration Nausea And Vomiting Pantoprazole Sodium 40 mg 10/31/22 21:00 11/04/22 08:09 Pantoprazole 40 Mg Vial IV 40 mg BID JYOTI Administration Objective Ventilator Parameters: Ventilator Settings FiO2 30 RT Vent Frequency 24 Ventilator Tidal Volume 390 Exhaled Vt/kg IBW 5.8 Positive End Expiratory 5 Pressure Inspiratory Phase Time 0.85 I:E Ratio 1:1.2 Patient Position HOB >= 30 degrees Labs Result Diagrams: 11/07/22 07:46 11/07/22 07:46 Labs: Laboratory Results - last 24 hr 11/03/22 11/03/22 11/03/22 14:35 14:35 14:35 WBC 16.1 H RBC 3.69 L Hgb 10.6 L Hct 30.7 L MCV 83.1 MCH 28.8 MCHC 34.6 RDW 13.6 Plt Count 483 H Neut % (Auto) 76.8 H Lymph % (Auto) 11.5 L [place] % (Auto) 8.3 Eos % (Auto) 2.7 Baso % (Auto) 0.7 Neut # (Auto) 95853 H Lymph # (Auto) 1900 [place] # (Auto) 1300 H Eos # (Auto) 400 Baso # (Auto) 100 Sodium 135 L Potassium 2.7 L* Chloride 93 L Carbon Dioxide 32 BUN 7 L Creatinine 0.55 L Estimated GFR > 60 BUN/Creatinine Ratio 12.7 Glucose 101 Calcium 7.5 L Magnesium 1.5 L Total Bilirubin 1.1 AST 20 ALT 11 Alkaline Phosphatase 130 H Total Protein 6.6 Albumin 2.8 L Globulin 3.8 Albumin/Globulin Ratio 0.7 L 11/04/22 11/04/22 04:30 04:30 WBC 15.4 H RBC 3.54 L Hgb 10.1 L Hct 29.7 L MCV 84.0 MCH 28.5 MCHC 34.0 RDW 14.0 Plt Count 473 H Neut % (Auto) 74.3 Lymph % (Auto) 11.9 L [place] % (Auto) 7.5 Eos % (Auto) 5.9 H Baso % (Auto) 0.4 Neut # (Auto) 93824 H Lymph # (Auto) 1800 [place] # (Auto) 1200 H Eos # (Auto) 900 H Baso # (Auto) 100 Sodium 133 L Potassium 3.2 L Chloride 96 L Carbon Dioxide 32 BUN 5 L Creatinine 0.50 L Estimated GFR > 60 BUN/Creatinine Ratio 10.0 Glucose 100 Calcium 7.5 L Magnesium Total Bilirubin 1.3 AST 31 ALT 11 Alkaline Phosphatase 114 Total Protein 6.1 L Albumin 2.6 L Globulin 3.5 Albumin/Globulin Ratio 0.7 L Exam Vital Signs (past 8 hours): - 11/04/22 01:31 11/04/22 01:31 11/04/22 01:45 Temperature Pulse Rate 69 Respiratory Rate 24 Blood Pressure 107/58 L 111/60 Pulse Oximetry 99 Oxygen Delivery Method 11/04/22 01:45 11/04/22 02:00 11/04/22 02:00 Temperature Pulse Rate 69 69 Respiratory Rate 24 24 Blood Pressure 99/56 L Pulse Oximetry 99 99 Oxygen Delivery Method 11/04/22 02:15 11/04/22 02:15 11/04/22 02:30 Temperature Pulse Rate 85 Respiratory Rate 24 Blood Pressure 125/68 94/58 L Pulse Oximetry 99 Oxygen Delivery Method 11/04/22 02:30 11/04/22 02:45 11/04/22 02:45 Temperature Pulse Rate 67 67 Respiratory Rate 24 24 Blood Pressure 90/60 Pulse Oximetry 99 99 Oxygen Delivery Method 11/04/22 03:00 11/04/22 03:00 11/04/22 03:15 Temperature Pulse Rate 67 Respiratory Rate 24 Blood Pressure 96/65 101/66 Pulse Oximetry 99 Oxygen Delivery Method 11/04/22 03:15 11/04/22 03:30 11/04/22 03:30 Temperature Pulse Rate 67 67 Respiratory Rate 24 24 Blood Pressure 98/65 Pulse Oximetry 99 99 Oxygen Delivery Method 11/04/22 03:45 11/04/22 03:45 11/04/22 04:00 Temperature Pulse Rate 67 Respiratory Rate 24 Blood Pressure 94/65 Pulse Oximetry 99 Oxygen Delivery Method Mechanical Ventilation 11/04/22 04:00 11/04/22 04:00 11/04/22 04:16 Temperature 97.0 F L Pulse Rate 67 Respiratory Rate 24 Blood Pressure 101/70 118/76 Pulse Oximetry 99 Oxygen Delivery Method 11/04/22 04:16 11/04/22 04:30 11/04/22 04:30 Temperature Pulse Rate 70 68 Respiratory Rate 24 24 Blood Pressure 88/61 L Pulse Oximetry 100 99 Oxygen Delivery Method 11/04/22 04:45 11/04/22 04:45 11/04/22 05:00 Temperature Pulse Rate 69 Respiratory Rate 24 Blood Pressure 96/63 94/66 Pulse Oximetry 99 Oxygen Delivery Method 11/04/22 05:00 11/04/22 05:15 11/04/22 05:15 Temperature Pulse Rate 69 67 Respiratory Rate 24 24 Blood Pressure 93/63 Pulse Oximetry 100 100 Oxygen Delivery Method 11/04/22 05:31 11/04/22 05:31 11/04/22 05:45 Temperature Pulse Rate 66 66 Respiratory Rate 24 24 Blood Pressure 98/68 Pulse Oximetry 100 100 Oxygen Delivery Method 11/04/22 05:45 11/04/22 06:00 11/04/22 06:00 Temperature Pulse Rate 66 Respiratory Rate 24 Blood Pressure 106/69 98/72 Pulse Oximetry 100 Oxygen Delivery Method 11/04/22 07:00 11/04/22 07:01 11/04/22 07:01 Temperature Pulse Rate 76 76 Respiratory Rate 24 24 Blood Pressure 68/47 L Pulse Oximetry 95 96 Oxygen Delivery Method 11/04/22 07:02 11/04/22 07:02 11/04/22 07:04 Temperature Pulse Rate 75 Respiratory Rate 24 Blood Pressure 69/45 L 66/46 L Pulse Oximetry 96 Oxygen Delivery Method 11/04/22 07:04 11/04/22 07:06 11/04/22 07:06 Temperature Pulse Rate 75 78 Respiratory Rate 24 24 Blood Pressure 71/49 L Pulse Oximetry 97 97 Oxygen Delivery Method 11/04/22 07:08 11/04/22 07:08 11/04/22 07:16 Temperature Pulse Rate 78 Respiratory Rate 26 H Blood Pressure 75/59 L 82/58 L Pulse Oximetry 97 Oxygen Delivery Method 11/04/22 07:16 11/04/22 07:31 11/04/22 07:31 Temperature Pulse Rate 76 68 Respiratory Rate 25 H 24 Blood Pressure 101/58 L Pulse Oximetry 96 99 Oxygen Delivery Method 11/04/22 07:45 11/04/22 07:45 11/04/22 07:48 Temperature Pulse Rate 75 Respiratory Rate 24 Blood Pressure 77/52 L 93/59 L Pulse Oximetry 93 Oxygen Delivery Method 11/04/22 07:48 11/04/22 08:00 11/04/22 08:00 Temperature Pulse Rate 74 Respiratory Rate 24 Blood Pressure 92/62 Pulse Oximetry 92 Oxygen Delivery Method Mechanical Ventilation 11/04/22 08:00 11/04/22 08:15 11/04/22 08:15 Temperature Pulse Rate 73 75 Respiratory Rate 24 24 Blood Pressure 79/53 L Pulse Oximetry 93 92 Oxygen Delivery Method 11/04/22 08:19 11/04/22 08:19 11/04/22 08:20 Temperature Pulse Rate 74 70 Respiratory Rate 24 24 Blood Pressure 79/56 L Pulse Oximetry 93 93 Oxygen Delivery Method 11/04/22 08:20 11/04/22 08:25 11/04/22 08:25 Temperature Pulse Rate 72 Respiratory Rate 24 Blood Pressure 108/71 126/81 Pulse Oximetry 95 Oxygen Delivery Method 11/04/22 08:30 11/04/22 08:30 11/04/22 08:36 Temperature Pulse Rate 75 Respiratory Rate 24 Blood Pressure 125/80 75/51 L Pulse Oximetry 93 Oxygen Delivery Method 11/04/22 08:36 11/04/22 08:40 11/04/22 08:40 Temperature Pulse Rate 80 72 Respiratory Rate 29 H 25 H Blood Pressure 115/77 Pulse Oximetry 93 92 Oxygen Delivery Method 11/04/22 08:45 11/04/22 08:45 Temperature Pulse Rate 75 Respiratory Rate 24 Blood Pressure 135/82 Pulse Oximetry 94 Oxygen Delivery Method Oxygen Delivery Method Mechanical Ventilation Oxygen Flow Rate 4 Narrative Exam Narrative: alert awake foll commands no distress, calm Quality TeleICU VTE Deep Vein Thrombosis/Pulmonary Embolism Present on Admission: No Assessment & Plan Assessment and plan (1) Sepsis: Status: Acute (2) Pain management contract broken: Status: Acute (3) 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 Bilateral pneumonia, likely superimposed bacterial, with antecedent influenza A -patient hypoxic, elevated WBC, bilateral consolidation on CT imaging -negative blood and urine cultures thus far -continue zosyn and azithro -follow CBC and cultures currently 15,000 -dc vanc due to sputum culture growing only yeast 2. Acute hypoxic and hypercapnic respiratory failure pt extubated and doing well , moniter isaura status and spo2 -continue O2 support and treatment of underlying pneumonia 3.? Possible sepstic shock with acute end-organ failure -presented with pneumonia, elevated lactate, elevated WBC, tachycardic, hypoxic though not hypotensive -treat underlying source of infection dc lasix and cont zosyn , no need for fluid bolus -continue NS 100 cc/hour volume support -started levophed due to worsening BP on 11/01 and dc levophed if map above 65 today now at 4 mcg 4. Acute metabolic encephalopathy and alcohol withdrawal resolved -continue lorazepam as needed per CIWA protocol -also received phenobarbital in the ED, continue phenobarbital 130 mg IV as needed for severe agitation -dc npo when pt alert and awake -thiamine IV daily -11/[address] noncontrast negative 5. Chronic hypertension -patient on oral metoprolol at home -substitute metoprolol 5 mg IV q.6 hours while patient NPO -telemetry, if bp still high will start iv nicardipine drip or iv esmolol Code status:? Full code Surrogate decision maker: Daughter Elana Do DVT prophylaxis:? Enoxaparin, SCDs Dispo: ok for floor later today or in am Time Spent With Patient Critical Care time: I spent a total of 45 minutes of critical care time on this patient's care today; this time is exclusive of procedural time. Time Spent With Patient Critical Care time: I spent a total of [] minutes of critical care time on this patient's care today; this time is exclusive of procedural time.
[2022-11-04 09:19] LABS: Magnesium 1.9 mg/dL (1.6-2.3)
--- NOTE | 2022-11-04 09:20 | PC.NURSE ---
0830: Sedation vacation initiated. ABG obtained. Pt tolerated well. 0900 pt pulling at ETT. RT and Hospitalist called to bedside. Pt following simple commands Pt extubated without complication. Placed on O2. DC restraints. Rounds completed with ICU tele senior agricultural assistant. Plan to wean levophed and precedex, DC Lasix, swallow eval at 1300, add procalcitonin, CRP, and Ferritin. Plan for ECHO due to dental caries and concern for endocarditis and increasing WBC, and change PRN orders to Q2 hr. 0930: Pt communicating with staff. Meds weaned per JAN. Placed on oxy mask by RT.
--- NOTE | 2022-11-04 09:35 | DI.ECHO.S_ITS ---
[facility]---------+ [facility] +---------+ : : [address] : [place] : : : : [id number] : : : : Phone: [phone]+ Echocardiogram Report + :Name: SANA VILLANUEVA Study Date: 11/04/2022 Height: 67 in : :[facility] ReadingLocation: Weight: 136 lb: : Gender: Male BSA: 1.7 m2 : :: 1960 Age: 61 yrs BP: 91/56 mmHg: :Reason For Study: Endocarditis : :Ordering Physician: Tank, : :Mati Performed By: Yon Linton : :Referring: Mati Fu : + Interpretation Summary The left ventricle is normal in size and wall thickness. Left ventricular systolic function is mild to moderately reduced. Left ventricular ejection fraction is estimated to be 40 +/- 5%. There is apical and part of basal segments with hypercontractility. Most of the mid LV segments are hypokinetic to akinetic. Findings are suspicious for stress induced cardiomyopathy but cannot completely rule out acute coronary syndrome. Clinical correlation is recommended. Diastolic parameters suggest a relaxation abnormality of the left ventricle, consistent with probable normal filling pressures. The right ventricle is normal in size and function. The right ventricular systolic pressure is estimated to be at least 42 mmHg based on an estimated right atrial pressure of 3 mm Hg. Both atria are normal in size. There is no significant valvular heart disease. No gross vavular vegetations. The aortic root is normal size. Procedure: A two-dimensional transthoracic echocardiogram with color flow and Doppler was performed. The study quality was technically good. There is no prior echocardiogram noted for this patient. The patient was in normal sinus rhythm during the exam. Left Ventricle: The left ventricle is normal in size and wall thickness. Left ventricular systolic function is mild to moderately reduced. Left ventricular ejection fraction is estimated to be 40 +/- 5%. There is apical and part of basal segments with hypercontractility. Most of the mid LV segments are hypokinetic to akinetic. Findings are suspicious for stress induced cardiomyopathy but cannot completely rule out acute coronary syndrome. Clinical correlation is recommended. Diastolic parameters suggest a relaxation abnormality of the left ventricle, consistent with probable normal filling pressures. Right Ventricle: The right ventricle is normal in size and function. Atria: Both atria are normal in size. The interatrial septum grossly appears intact with no obvious evidence for an atrial septal defect. Mitral Valve: The mitral valve is normal in structure and function. There is no obvious vegetation seen on the mitral valve. There is mild mitral regurgitation. Aortic Valve: The aortic valve is normal in structure and function. There is no obvious aortic valvular vegetation. No aortic regurgitation is present. Tricuspid Valve: The tricuspid valve is normal in structure and function. There is no obvious tricuspid valve vegetation. There is mild tricuspid regurgitation. The right ventricular systolic pressure is estimated to be at least 42 mmHg based on an estimated right atrial pressure of 3 mm Hg. Pulmonic Valve: The pulmonic valve is normal in structure and function. There is no obvious vegetation on the pulmonic valve. There is trace pulmonic regurgitation. There is no significant valvular heart disease. Great Vessels: The aortic root is normal size. The dimensions of the ascending aorta are normal. The IVC is of normal diameter and collapses greater than 50% with a sniff. This suggests a low right atrial pressure of 3 mm Hg. Pericardium/ Pleura There is no pericardial effusion. There is no pleural effusion. MMode/2D Measurements & Calculations LVIDd: 5.0 cm LVOT diam: 2.2 cm LVIDs: 4.1 cm Ao root diam: 3.3 cm FS: 16.8 % asc Aorta Diam: 3.2 cm IVSd: 0.96 cm LVPWd: 0.[address] diameter/BSA (cm/m^2): 2.9 LV sys. diameter/BSA (cm/m^2): 2.4 LA A2 area: 15.5 cm2 RA long axis: 4.3 cm LA A4 area: 12.5 cm2 RA area: 10.4 cm2 LA length (vol): 3.8 cm RA vol: 21.6 ml LA vol: 43.5 ml RA : 12.6 ml/m2 LA vol index: 25.4 ml/m2 TAPSE: 2.3 cm Doppler Measurements & Calculations Ao V2 max: 117.2 cm/sec LVOT Max Jaime: 101.9 cm/sec Ao V2 mean: 88.9 cm/sec LV V1 max P.2 mmHg Ao max P.5 mmHg LV V1 VTI: 15.7 cm Ao mean P.5 mmHg JORGE(I,D): 3.5 cm2 Ao V2 VTI: 17.3 cm JORGE(V,D): 3.4 cm2 sev ratio: 0.91 JORGE indexed to BSA (cm^2/m^2): 2.0 MV E max jaime: 61.2 cm/sec TR max jaime: 310.5 cm/sec MV A max jaime: 94.9 cm/sec TR max P.6 mmHg MV E/A: 0.64 Med Peak E' Jaime: 5.2 cm/sec E/E' med: 11.8 Lat Peak E' Jaime: 5.6 cm/sec E/E' lat: 10.9 E/e' average: 11.3 MV dec time: 0.25 sec SV(LVOT): 60.5 ml Reading Physician:02:56 PM
[2022-11-04 09:36] LABS: PCO2 ABG 35.8 mmHg (35-45); PO2 ABG 56 mmHg (80-100); pH ABG 7.53 (7.35-7.45)
[2022-11-04 09:37] LABS: Fractionated Inspired Oxygen 30; HCO3 ABG 30 mmol/L (22-26); Oxygen Saturation ABG 92 % (95-100); TCO2 ABG 31 mmol/L (21-31)
[2022-11-04 10:05] LABS: Procalcitonin 2.75 ng/mL (<0.5)
[2022-11-04] MEDS: HALOPERIDOL 5 MG/ML VIAL IV (10:18)
[2022-11-04 10:19] LABS: C-Reactive Protein Quant 16.8 mg/dL (<1.0)
[2022-11-04 10:23] LABS: Ferritin 393 ng/mL (18-464)
--- NOTE | 2022-11-04 10:37 | PC.NURSE ---
Spoke to Sharda, Step Daughter. Updated on extubation and plan. Advised that pt is getting increasingly more agitated after extubation and wants to go home Sharda states she will get in contact with other family to come visit.
[2022-11-04] MEDS: LORazepam 2 MG/ML INJ IV ×2 (10:47→14:03)
--- NOTE | 2022-11-04 11:33 | CM.DPC ---
Addendum entered by VARGAS Cutler 11/04/22 14:31: ADD: SW met bedside with pt, who remains slightly confused and sedated and not yet able to participate in a goal directed discussion, and talked with pt's niece Lizeth and other family member Michael (José Miguel) and explained role. They confirm pt lives with his brother but they state brother is also active drinker and uses substances and not a very supportive environment to remain sober. SW provided [place] information/brochure and family plans to call tomorrow to gather further information regarding their clinic and services and willing to support and assist pt at d/c with sobriety but aware that pt will need to be willing and agreeable. Family very supportive and concerned and willing to help as needed. SW discussed process of weaning off sedation medications, confirm pt can tolerate intake and output independently and mobilize. Family confirms pt was quite independent at baseline. Plan: SW to follow closely tomorrow for PT eval and recommendations and when pt more medically appropriate for discussion to discuss ETOH/BECKI resources with pt and family plans to also talk to pt as well and provide support. BF Original Note: DCP Cont: Per MD and RN, pt woke this morning and began self extubation and required urgent staff intervention to help with extubation. Pt's sedation being weaned and pt remains with some confusion but also agitation and requesting family be contacted to be bedside. RN calling family to see if they can come bedside for comfort as pt asking to leave. SW met briefly bedside with pt and pt attempting to communicate but garbled speech and not very oriented at this time as sedation still wearing off. Pt requiring fair amount of suctioning and oxygen. Per RN and MD, pt not yet medically appropriate for PT eval yet. Plan: SW to follow closely for pt to clear more and likely PT eval towards confirming if pt safe for d/c home and inquiry if pt interested in any ETOH resources. VARGAS Cutler
[2022-11-04] MEDS: chlordiazePOXIDE 25 MG CAPSULE 50 MG PO (12:40)
[2022-11-04] MEDS: ONDANSETRON 4 MG/2 ML INJ IV (12:41)
--- NOTE | 2022-11-04 12:56 | PC.NURSE ---
1300: pt passed swallow eval. Reports sore throat however was able to tolerate PO pills with applesauce. Weaned off Levophed. BP 113/79. Pt unable to tolerate mask on face--keeps removing. Placed on NC at 2L. Appearing more comfortable.
[2022-11-04] MEDS: MORPHINE 2 MG/ML INJ 1 MG IV (13:36)
[2022-11-04] MEDS: LORazepam 2 MG/ML INJ 1 MG IV (15:20)
[2022-11-04] MEDS: SODIUM CHLORIDE 0.9% 1,000 ML 1000 ML IV (15:43)
--- NOTE | 2022-11-04 16:52 | PT-IP ANOTE ---
Received PT orders and reviewed the chart. Per CHECKER AND PACKER, pt not yet appropriate for therapy evaluations. Will follow up Saturday AM.
--- NOTE | 2022-11-04 21:41 | DI.RAD.S_ITS ---
PROCEDURE: XR CHEST 1V INDICATIONS: SOB TECHNIQUE: One view of the chest was acquired. COMPARISON: [facility], CR, XR CHEST 1V, 11/03/2022, 13:51. FINDINGS: Surgical changes and devices: There is a right internal jugular catheter with the tip projecting over the cavoatrial junction. Postsurgical changes redemonstrated within the cervical thoracic spine. Lungs and pleura: There are small bilateral pleural effusions redemonstrated with slightly increased bibasilar opacities consistent with atelectasis or consolidation. No evidence of pneumothorax. Mediastinum: Mediastinal contours appear unchanged. Heart size is normal. Bones and chest wall: No suspicious bony lesions. Overlying soft tissues appear unremarkable. IMPRESSION: 1. Persistent small bilateral pleural effusions with slightly increased bibasilar opacities consistent with consolidation or atelectasis. Dictated by: Elio Roman M.D. on 11/04/2022 at 23:35 Approved by: Elio Roman M.D. on 11/04/2022 at 23:54
--- NOTE | 2022-11-04 21:48 | PM.ICURNDS ---
- :: This patient was seen via real time interactive two-way audiovisual telecommunician. Patietn remains extubated on NC.pt confused and received ativan prior to my eval. unable to take librum due to lack of PO access and concern with swallow ability. will continue ativan as needed for now, replete lytes , formal S & S eval in AM. remians on abx, dvt and gi ppx.
[2022-11-04] MEDS: FUROSEMIDE 20 MG/2 ML VIAL IV (21:54)
[2022-11-04] MEDS: ALBUTEROL/IPRATROPIUM 3 ML AMPUL INH (21:57)
[2022-11-04] MEDS: KETAMINE 500 MG/5 ML INJ (22:55)
[2022-11-04] MEDS: ROCURONIUM 50 MG/5 ML INJ 75 MG IV (22:57)
--- NOTE | 2022-11-04 23:02 | DI.RAD.S_ITS ---
PROCEDURE: XR CHEST 1V INDICATIONS: intubated TECHNIQUE: One view of the chest was acquired. COMPARISON: [facility], CR, XR CHEST 1V, 11/04/2022, 21:44. FINDINGS: Surgical changes and devices: There is a new endotracheal tube with the tip approximately 4 cm from the roxi. Right internal jugular catheter redemonstrated with the tip in the region of the cavoatrial junction. Postsurgical changes redemonstrated within the thoracolumbar spine. Lungs and pleura: There are persistent small bilateral pleural effusions with associated bibasilar opacities consistent with compressive atelectasis or consolidation which appear slightly increased. A few patchy opacities also demonstrated in the right lung likely representing consolidation. There is also slightly increased pulmonary edema. No evidence of pneumothorax. Mediastinum: Mediastinal contours appear unchanged. Heart size is normal. Bones and chest wall: No suspicious bony lesions. Overlying soft tissues appear unremarkable. IMPRESSION: 1. New endotracheal tube with the tip in appropriate position. 2. Persistent small bilateral pleural effusions with progressively increased bibasilar consolidation or compressive atelectasis. A few patchy opacities in the right lung also appear increased and likely represent consolidation/pneumonia. 3. Slightly increased pulmonary edema. Dictated by: Elio Roman M.D. on 11/05/2022 at 0:01 Approved by: Elio Roman M.D. on 11/05/2022 at 0:03
[2022-11-04] MEDS: AMIODARONE 150 MG/100 ML PIGGYBACK 600 MG IV (23:09)
[2022-11-04] MEDS: propofoL 1,000 MG/100 ML VIAL 6.878 MG IV (23:18)
[2022-11-04] MEDS: fentaNYL 1,000 MCG in DEXTROSE 5% IN WATER 230 ML 10.798 MCG IV (23:19)
--- NOTE | 2022-11-04 23:52 | PM.EVENT ---
Event Note Date Patient Seen: 11/04/22 Time Patient Seen: 22:15 Event Note (Rapid Response, Code, or fall): Called by nursing staff that patient had clinical change. He had severe respiratory distress, belly breathing, shallow, tachypneic, diaphoretic, altered. He had been placed on oxymask. ED physican called for intubation. Patient became tachycardic to the 200s, but improved to the 130s after intubation. EKG showed sinus tachycardia. ABG showed a respiratory acidosis with co2 in the 60s, which was drawn right after intubation. Chest xray was done and per my read looked like CHF and volume overload. He was ordered for lasix. CBC, BMP, lactate, troponin all ordered. ECHO from earlier today was noted which showed EF 40-45% and hypokinesis most consistent with stress cardiomyopathy. Multiple family members arrived after intubation and discussion was had about patient's condition.
[2022-11-05] VITALS (92 sets, daily range): BP systolic 86–129; BP diastolic 50–86; PULSE 100–133; RESP 20–32; TEMP 36.4–36.6; O2SAT 76–100
[2022-11-05 00:05] LABS: Add Manual Diff / Slide Review NO; Basophils Absolute Auto 200 /uL (0-100); Basophils Percent Auto 0.9 % (0-2); Eosinophils Absolute Auto 600 /uL (0-450); Eosinophils Percent Auto 2.5 % (2-4); Hematocrit 33.2 % (41-53); Hemoglobin 11.2 g/dL (13.5-17.5); Lymphocytes Absolute Auto 1300 /uL (1100-4500); Lymphocytes Percent Auto 5.4 % (25-40); Mean Corpuscular HGB Conc 33.7 % (30-36); Mean Corpuscular Hemoglobin 28.7 PG (26-34); Mean Corpuscular Volume 85.2 fL (80-100); Monocytes Absolute Auto 1500 /uL (0-900); Monocytes Percent Auto 6.2 % (3-14); Neutrophils Absolute Auto 20100 /uL (1500-7000); Platelet Count 495 X10^3/uL (150-400); Red Cell Distribution Width 14.1 % (11.6-14.8); White Blood Cell Count 23.6 X10^3/uL (4.5-11.0)
[2022-11-05 00:11] LABS: Lactate (Lactic Acid) 1.2 mmol/L (0.7-2.1)
[2022-11-05 00:22] LABS: Alanine Aminotransferase 13 IU/L (<50); Albumin 3.2 g/dL (3.5-5.0); Albumin Globulin Ratio 0.8 (1.0-2.8); Alkaline Phosphatase 142 U/L (38-126); Aspartate Aminotransferase 29 IU/L (17-59); BUN Creatinine Ratio 11.1 (6-22); Bilirubin Total 0.9 mg/dL (0.2-1.3); Blood Urea Nitrogen 7 mg/dL (9-20); Calcium 8.1 mg/dL (8.4-10.2); Carbon Dioxide 26 mmol/L (22-32); Chloride 103 mmol/L (98-107); Estimated Glomerular Filt Rate > 60 mL/min (>60); Globulin 4.1 g/dL (1.7-4.1); Glucose 116 mg/dL (80-110); HEMOLYSIS < 15 (0-50); Potassium 3.7 mmol/L (3.4-5.1); Sodium 141 mmol/L (137-145); Total Protein 7.3 g/dL (6.3-8.2)
[2022-11-05 00:30] LABS: NT-proBNP (BNP-Adult 18+) 7160 pg/mL (<125)
[2022-11-05 00:36] LABS: Troponin I 0.165 ng/mL (0.01-0.034)
[2022-11-05 00:45] LABS: PCO2 ABG 60.8 mmHg (35-45); PO2 ABG 76 mmHg (80-100); pH ABG 7.27 (7.35-7.45)
[2022-11-05 00:46] LABS: Fractionated Inspired Oxygen 50; HCO3 ABG 28 mmol/L (22-26); Oxygen Saturation ABG 93 % (95-100); TCO2 ABG 30 mmol/L (21-31)
[2022-11-05] MEDS: DOXYCYCLINE 100 MG in SODIUM CHLORIDE 0.9% 100 ML IV ×3 (01:08→23:56)
[2022-11-05] MEDS: CHLORHEXIDINE GLUCONATE 15 ML CUP PO ×4 (01:08→17:24)
--- NOTE | 2022-11-05 01:46 | P.TELICUIN_ITS ---
Teleintensivist Intervention Date/Time Was camera activated?: Yes Date Patient Seen: 11/05/22 Issue(s) Addressed Issue(s): Resp. Distress/Ventilator management (Called earlier this shift for RR in low-mid 30s, rhonchorous breath sounds amd tachycardia in 130s. Patient was extubated this AM. Ordered pCXR, Lasix 20 mg and Duoneb. RN had also called Dr. Garcia. ABG ordered; patient rapidly deteriorated while Dr. Robert was in ICU. Pt reintubated.) Intervention(s) :: Recommended: 1) Conventional fentanyl/propofol analgosedation; 2) Sputum re- culture; 3) Zosyn/azithromycin continuation; 4) Pulmonary CTA when possible; 5) Continued diuresis given BNP ~ 7000 Plan discussed with: Physician/provider and Nurse
[2022-11-05 02:12] LABS: PTT Partial Thromboplastin Tim 40 SECONDS (26-36)
[2022-11-05] MEDS: HEPARIN 5,000 UNIT/ML VIAL 4000 UNIT IV (02:16)
[2022-11-05] MEDS: HEPARIN DRIP 25,000 UNIT/500 ML IV.SOLN 13.8 UNIT IV (02:46)
[2022-11-05] MEDS: PIPERACILLIN/TAZO 3.375 GM in SODIUM CHLORIDE 0.9% 100 ML IV ×3 (04:53→21:06)
[2022-11-05] MEDS: FUROSEMIDE 40 MG/4 ML VIAL IV ×2 (04:54→12:19)
[2022-11-05 05:47] LABS: Magnesium 1.7 mg/dL (1.6-2.3); Phosphorous 4.2 mg/dL (2.3-3.7)
[2022-11-05 06:03] LABS: Troponin I 0.155 ng/mL (0.01-0.034)
[2022-11-05 06:04] LABS: HCO3 ABG 29 mmol/L (22-26); PCO2 ABG 34.6 mmHg (35-45); PO2 ABG 79 mmHg (80-100); TCO2 ABG 30 mmol/L (21-31); pH ABG 7.52 (7.35-7.45)
[2022-11-05 06:06] LABS: Oxygen Saturation ABG 97 % (95-100)
[2022-11-05 06:51] LABS: Fractionated Inspired Oxygen 30
[2022-11-05] MEDS: MAGNESIUM SULFATE 2 GM/50 ML PIGGYBACK IV (07:55)
[2022-11-05 08:38] LABS: PTT Partial Thromboplastin Tim 37 SECONDS (26-36)
[2022-11-05] MEDS: THIAMINE 100 MG in SODIUM CHLORIDE 0.9% 100 ML 404 MG IV (09:18)
[2022-11-05] MEDS: NICOTINE 7 MG PATCH TOP (09:22)
[2022-11-05] MEDS: PANTOPRAZOLE 40 MG VIAL IV ×2 (09:22→21:06)
--- NOTE | 2022-11-05 09:42 | P.TELICUPN_ITS ---
Subjective Subjective IF CAMERA ACTIVATED, patient seen via real-time interactive audiovisual communication: Camera activated Consent obtained for tele-customer contact sales associate care: Yes Patient Location: ICU Provider location (State): [place] Other participants/roles: Dr. Porras Current Medications Current Medications Medications: Home Medications ketorolac 0.4 % eye drops 1 drp OPHTH QID #5 mL 06/20/17 [Rx Confirmed 10/13/18] indomethacin 50 mg capsule 50 mg PO TIDP PRN pain, moderate #90 caps 10/13/18 [Rx] amitriptyline 25 mg tablet 25 mg PO BEDTIME #30 tabs 01/07/19 [Rx] ondansetron 4 mg disintegrating tablet 4 mg PO TID-QID PRN nausea and vomiting #10 tabs 02/24/19 [Rx] cyclobenzaprine 10 mg tablet 10 mg PO TIDP #90 tabs 11/19/19 [Rx] gabapentin 300 mg capsule (Neurontin) 300 mg PO Q8H #90 caps 11/19/19 [Rx] metoprolol succinate 50 mg tablet,extended release 24 hr (Toprol XL) 50 mg PO BID #60 tabs 11/19/19 [Rx] omeprazole 20 mg capsule,delayed release 20 mg PO QDAY #30 caps 11/19/19 [Rx] doxycycline hyclate 100 mg capsule 100 mg PO BID #14 caps 05/03/22 [Rx] Visit Medications (administered) Generic Name Dose Route Start Last Admin Trade Name Freq PRN Reason Stop Dose Admin Chlordiazepoxide HCl 50 mg 11/04/22 12:00 11/05/22 06:36 Chlordiazepoxide 25 Mg Capsule PO Not Given Q6HR JYOTI Chlorhexidine Gluconate 15 ml 10/31/22 18:00 11/05/22 06:36 Chlorhexidine Gluconate 15 Ml Cup PO 15 ml Q6HR JYOTI Administration Folic Acid 1 mg 10/31/22 09:00 11/04/22 08:10 Folic Acid 1 Mg Tablet PO 1 mg DAILY JYOTI Administration Furosemide 40 mg 11/05/22 04:00 11/05/22 04:54 Furosemide 40 Mg/4 Ml Vial IV 40 mg Q12HR JYOTI Administration Haloperidol 5 mg 11/04/22 09:36 11/04/22 10:18 Haloperidol 5 Mg/Ml Vial IV 5 mg Q2HR PRN Administration Agitation Sodium Chloride 1,000 mls @ 100 mls/hr 10/31/22 00:45 11/02/22 17:25 Normal Saline 0.9% IV 0 mls/hr CONT JYOTI Infusion Thiamine HCl 100 mg/ Sodium 101 mls @ 404 mls/hr 10/31/22 09:30 11/05/22 09:18 Chloride IV 404 mls/hr DAILY JYOTI Administration Piperacillin Sod/Tazobactam 100 mls @ 25 mls/hr 10/31/22 12:45 11/05/22 08:53 Sod 3.375 gm/ Sodium Chloride IV Infused Q8H JYOTI Infusion Sodium Chloride 500 mls @ 1,000 mls/hr 10/31/22 14:03 10/31/22 18:19 Normal Saline 0.9% IV Infused BOLUS PRN Infusion Fluid replacement Propofol 1,000 mg in 100 mls @ 1.965 mls/hr 10/31/22 14:15 11/05/22 06:38 Propofol IV 35 mcg/kg/min TITRATE JYOTI 13.755 mls/hr Titration Protocol 5 MCG/KG/MIN Fentanyl 1,000 mcg/ Dextrose 250 mls @ 10.798 mls/hr 11/04/22 22:45 11/05/22 06:15 IV 1 mcg/kg/hr TITRATE JYOTI 15.425 mls/hr Titration Protocol 0.7 MCG/KG/HR NOREPINEPHRINE BITARTRATE/D5W 4 mg in 250 mls @ 30 mls/hr 11/04/22 22:51 11/05/22 02:45 Levophed IV Not Given TITRATE JYOTI Protocol 8 MCG/MIN Doxycycline Hyclate 100 mg/ 100 mls @ 100 mls/hr 11/04/22 23:30 11/05/22 01:08 Sodium Chloride IV 100 mls/hr Q12H JYOTI Administration Heparin Sodium/Dextrose 25,000 unit in 500 mls @ 13.8 mls/hr 11/05/22 02:45 11/05/22 09:00 Heparin Drip IV 12.87 units/kg/hr CONT JYOTI 14.8 mls/hr Infusion 12 UNITS/KG/HR Lorazepam 0 mg 10/31/22 00:42 11/04/22 14:03 Lorazepam 2 Mg/Ml Inj IV 2 mg CIWAPRN PRN Administration Alcohol Withdrawal/n/V Protocol Lorazepam 1 mg 11/04/22 09:37 11/04/22 15:20 Lorazepam 2 Mg/Ml Inj IV 1 mg Q2HR PRN Administration Anxiety Morphine Sulfate 1 mg 11/04/22 09:38 11/04/22 13:36 Morphine 2 Mg/Ml Inj IV 1 mg Q2HR PRN Administration Pain, Moderate (4-6) Multivitamins 1 tab 10/31/22 09:00 11/04/22 08:10 Multivitamin 1 Tablet PO 1 tab DAILY JYOTI Administration Nicotine 7 mg 10/31/22 09:00 11/05/22 09:22 Nicotine 7 Mg Patch TOP 7 mg DAILY JYOTI Administration Ondansetron HCl 4 mg 10/31/22 01:07 11/04/22 12:41 Ondansetron 4 Mg/2 Ml Inj IV 4 mg Q4HR PRN Administration Nausea And Vomiting Pantoprazole Sodium 40 mg 10/31/22 21:00 11/05/22 09:22 Pantoprazole 40 Mg Vial IV 40 mg BID JYOTI Administration Objective Ventilator Parameters: Ventilator Settings FiO2 30 RT Vent Frequency 24 Ventilator Tidal Volume 390 Exhaled Vt/kg IBW 5.8 Positive End Expiratory 8 Pressure Inspiratory Phase Time 0.85 I:E Ratio 1:1.2 Patient Position HOB >= 30 degrees Labs Result Diagrams: 11/11/22 04:00 11/11/22 04:00 Labs: Laboratory Results - last 24 hr 11/04/22 11/04/22 11/04/22 04:30 23:45 23:45 WBC 23.6 H D RBC 3.90 L Hgb 11.2 L Hct 33.2 L MCV 85.2 MCH 28.7 MCHC 33.7 RDW 14.1 Plt Count 495 H Neut % (Auto) 85.0 H Lymph % (Auto) 5.4 L [place] % (Auto) 6.2 Eos % (Auto) 2.5 Baso % (Auto) 0.9 Neut # (Auto) 05020 H Lymph # (Auto) 1300 [place] # (Auto) 1500 H Eos # (Auto) 600 H Baso # (Auto) 200 H APTT ABG pH ABG pCO2 ABG pO2 ABG HCO3 ABG Total CO2 ABG O2 Saturation ABG Base Excess FiO2 Sodium 141 Potassium 3.7 Chloride 103 Carbon Dioxide 26 BUN 7 L Creatinine 0.63 L Estimated GFR > 60 BUN/Creatinine Ratio 11.1 Glucose 116 H Lactate Calcium 8.1 L Phosphorus Magnesium Ferritin 393 Total Bilirubin 0.9 AST 29 ALT 13 Alkaline Phosphatase 142 H Troponin I C-Reactive Protein 16.8 H NT-Pro-B Natriuret Pep 7160 H Total Protein 7.3 Albumin 3.2 L Globulin 4.1 Albumin/Globulin Ratio 0.8 L Procalcitonin 2.75 H Nasal Screen MRSA (PCR) 11/04/22 11/04/22 11/05/22 23:45 23:45 01:45 WBC RBC Hgb Hct MCV MCH MCHC RDW Plt Count Neut % (Auto) Lymph % (Auto) [place] % (Auto) Eos % (Auto) Baso % (Auto) Neut # (Auto) Lymph # (Auto) [place] # (Auto) Eos # (Auto) Baso # (Auto) APTT 40 H ABG pH ABG pCO2 ABG pO2 ABG HCO3 ABG Total CO2 ABG O2 Saturation ABG Base Excess FiO2 Sodium Potassium Chloride Carbon Dioxide BUN Creatinine Estimated GFR BUN/Creatinine Ratio Glucose Lactate 1.2 Calcium Phosphorus Magnesium Ferritin Total Bilirubin AST ALT Alkaline Phosphatase Troponin I 0.165 H* C-Reactive Protein NT-Pro-B Natriuret Pep Total Protein Albumin Globulin Albumin/Globulin Ratio Procalcitonin Nasal Screen MRSA (PCR) 11/05/22 11/05/22 11/05/22 04:50 04:50 05:30 WBC RBC Hgb Hct MCV MCH MCHC RDW Plt Count Neut % (Auto) Lymph % (Auto) [place] % (Auto) Eos % (Auto) Baso % (Auto) Neut # (Auto) Lymph # (Auto) [place] # (Auto) Eos # (Auto) Baso # (Auto) APTT ABG pH ABG pCO2 ABG pO2 ABG HCO3 ABG Total CO2 ABG O2 Saturation ABG Base Excess FiO2 Sodium Potassium Chloride Carbon Dioxide BUN Creatinine Estimated GFR BUN/Creatinine Ratio Glucose Lactate Calcium Phosphorus 4.2 H Magnesium 1.7 Ferritin Total Bilirubin AST ALT Alkaline Phosphatase Troponin I 0.155 H* C-Reactive Protein NT-Pro-B Natriuret Pep Total Protein Albumin Globulin Albumin/Globulin Ratio Procalcitonin Nasal Screen MRSA (PCR) Positive for mrsa H 11/05/22 11/05/22 11/05/22 05:34 08:00 23:24 WBC RBC Hgb Hct MCV MCH MCHC RDW Plt Count Neut % (Auto) Lymph % (Auto) [place] % (Auto) Eos % (Auto) Baso % (Auto) Neut # (Auto) Lymph # (Auto) [place] # (Auto) Eos # (Auto) Baso # (Auto) APTT 37 H ABG pH 7.52 H 7.27 L* ABG pCO2 34.6 L 60.8 H ABG pO2 79 L 76 L ABG HCO3 29 H 28 H ABG Total CO2 30 30 ABG O2 Saturation 97 93 L ABG Base Excess 6.0 H 1.0 FiO2 30 50 Sodium Potassium Chloride Carbon Dioxide BUN Creatinine Estimated GFR BUN/Creatinine Ratio Glucose Lactate Calcium Phosphorus Magnesium Ferritin Total Bilirubin AST ALT Alkaline Phosphatase Troponin I C-Reactive Protein NT-Pro-B Natriuret Pep Total Protein Albumin Globulin Albumin/Globulin Ratio Procalcitonin Nasal Screen MRSA (PCR) Exam Vital Signs (past 8 hours): - 11/05/22 01:47 11/05/22 01:45 11/05/22 01:45 Temperature Pulse Rate 133 H 123 H Respiratory Rate 32 H 25 H Blood Pressure 116/78 Pulse Oximetry 94 Oxygen Delivery Method 11/05/22 02:00 11/05/22 02:00 11/05/22 02:15 Temperature Pulse Rate 120 H Respiratory Rate 25 H Blood Pressure 118/80 123/81 Pulse Oximetry 94 Oxygen Delivery Method 11/05/22 02:15 11/05/22 02:30 11/05/22 02:30 Temperature Pulse Rate 121 H 120 H Respiratory Rate 28 H 27 H Blood Pressure 119/83 Pulse Oximetry 95 96 Oxygen Delivery Method 11/05/22 02:45 11/05/22 02:45 11/05/22 03:00 Temperature Pulse Rate 119 H Respiratory Rate 30 H Blood Pressure 119/86 129/84 Pulse Oximetry 97 Oxygen Delivery Method 11/05/22 03:00 11/05/22 03:16 11/05/22 03:16 Temperature Pulse Rate 118 H 110 H Respiratory Rate 29 H 27 H Blood Pressure 114/81 Pulse Oximetry 98 97 Oxygen Delivery Method 11/05/22 03:33 11/05/22 03:33 11/05/22 03:45 Temperature Pulse Rate 116 H Respiratory Rate 27 H Blood Pressure 122/78 110/71 Pulse Oximetry 97 Oxygen Delivery Method 11/05/22 03:45 11/05/22 04:00 11/05/22 04:00 Temperature Pulse Rate 112 H 112 H Respiratory Rate 26 H 28 H Blood Pressure 103/71 Pulse Oximetry 98 97 Oxygen Delivery Method 11/05/22 04:15 11/05/22 04:15 11/05/22 04:30 Temperature Pulse Rate 111 H Respiratory Rate 29 H Blood Pressure 108/70 111/70 Pulse Oximetry 97 Oxygen Delivery Method 11/05/22 04:30 11/05/22 04:45 11/05/22 04:45 Temperature Pulse Rate 110 H 109 H Respiratory Rate 28 H 28 H Blood Pressure 104/66 Pulse Oximetry 98 98 Oxygen Delivery Method 11/05/22 05:00 11/05/22 05:00 11/05/22 04:00 Temperature Pulse Rate 108 H Respiratory Rate 28 H Blood Pressure 108/69 Pulse Oximetry 99 Oxygen Delivery Method Mechanical Ventilation 11/05/22 05:15 11/05/22 05:15 11/05/22 05:30 Temperature Pulse Rate 112 H Respiratory Rate 29 H Blood Pressure 120/79 105/81 Pulse Oximetry 99 Oxygen Delivery Method 11/05/22 05:30 11/05/22 05:45 11/05/22 05:45 Temperature Pulse Rate 115 H 115 H Respiratory Rate 31 H 31 H Blood Pressure 108/81 Pulse Oximetry 99 99 Oxygen Delivery Method 11/05/22 06:00 11/05/22 06:00 11/05/22 06:15 Temperature Pulse Rate 117 H Respiratory Rate 32 H Blood Pressure 102/79 102/80 Pulse Oximetry 99 Oxygen Delivery Method 11/05/22 06:15 11/05/22 06:30 11/05/22 06:30 Temperature Pulse Rate 115 H 115 H Respiratory Rate 29 H 29 H Blood Pressure 101/75 Pulse Oximetry 97 98 Oxygen Delivery Method 11/05/22 07:00 11/05/22 07:00 11/05/22 07:15 Temperature Pulse Rate 114 H Respiratory Rate 28 H Blood Pressure 105/74 98/69 Pulse Oximetry 98 Oxygen Delivery Method 11/05/22 07:15 11/05/22 07:30 11/05/22 07:30 Temperature Pulse Rate 114 H 112 H Respiratory Rate 28 H 28 H Blood Pressure 96/70 Pulse Oximetry 98 99 Oxygen Delivery Method 11/05/22 07:45 11/05/22 07:45 11/05/22 08:00 Temperature Pulse Rate 111 H Respiratory Rate 24 Blood Pressure 102/73 Pulse Oximetry 98 Oxygen Delivery Method Mechanical Ventilation 11/05/22 08:00 11/05/22 08:00 Temperature 97.7 F Pulse Rate 108 H Respiratory Rate 28 H Blood Pressure 97/65 Pulse Oximetry 98 Oxygen Delivery Method Fraction of Inspired Oxygen 94 Oxygen Delivery Method Mechanical Ventilation Oxygen Flow Rate 3 Quality TeleICU VTE Deep Vein Thrombosis/Pulmonary Embolism Present on Admission: No Assessment & Plan Assessment & Plan narrative: This patient was seen via real time interactive two-way audiovisual telecom munication. patient seen with bedside nurse, discussed case with Dr. Porras chart/labs/imaging reviewed 61 year old male with acute hypoxic respiratory failure sepsis 2/2to virial/bacterial pneumonia pulmonary edema ams 2/2 to etoh withdrawal currently afebrile, HD stable intubated, sedated in minimal vent settings labs pending cxr b/l infiltrates suggest -neurochecks/seizure precautions -goal sukumar -1 -daily sah//sbt -continue librium -thiamine/folate -monitor for re-feeding syndrome -vent support, check abg, adjust prn, keep pH above 7.24 pao2 above 55 -new cxs pending -continue abx -chest pt/pulm toilet -check venous duplex, cta pending -continue diuretics, assess response after each dose -monitor ins/outs -replace lytes prn -place ogt start feeds -keep glucose 140-180s -gi/dvt ppx -please call eIC if condition changes total [facility] time 45 minutes Time Spent With Patient Critical Care time: I spent a total of [] minutes of critical care time on this patient's care today; this time is exclusive of procedural time.
--- NOTE | 2022-11-05 09:46 | DI.CT.S_ITS ---
PROCEDURE: CT ANGIO CHEST PE PROTOCOL INDICATIONS: rule out PE TECHNIQUE: After the administration of intravenous contrast, 2 mm thick sections acquired from the pulmonary apices to the posterior costophrenic angles. 3-dimensional maximum intensity projection (MIP) coronal and sagittal reformats were then acquired through the thorax. For radiation dose reduction, the following was used: automated exposure control, adjustment of mA and/or kV according to patient size. COMPARISON: [facility], CT, CT CHEST ABD PEL W CON, 10/30/2022, 17:28. [facility], CT, CT ANGIO CHEST PE PROTOCOL, 05/03/2022, 14:55. FINDINGS: Image quality: Excellent. Pulmonary arteries: Pulmonary arteries are normal in size, and demonstrate no intraluminal filling defects to suggest central pulmonary embolism. Lungs and pleura: There are new moderate-sized low-density pleural effusions and compressive atelectasis at the bilateral lung bases. Multifocal tree-in-bud pulmonary radiopacities and bronchiolar wall thickening is redemonstrated in the aerated portions of the lungs. Multifocal ground-glass nodules are redemonstrated as well. The patient is intubated. Mediastinum: Heart size is normal, without pericardial effusion. No mediastinal or hilar adenopathy. Thoracic aorta is normal in caliber and enhancement. Esophagus is normal in caliber, without hiatal hernia. Bones and chest wall: No suspicious bony lesions. There is diffuse idiopathic skeletal hyperostosis throughout the thoracic spine Thyroid gland is unremarkable. No axillary or supraclavicular adenopathy. Abdomen: Visualized upper abdominal solid organs appear normal in the early arterial phase of enhancement. IMPRESSION: 1. No acute pulmonary embolus. 2. New, moderate low-density bilateral pleural effusions and compressive atelectasis. 3. Persistent multifocal tree-in-bud pulmonary radiopacities, ground-glass nodules, and bronchial wall thickening consistent with multifocal pneumonia. Overall, the the pulmonary findings appear increased in severity than on the prior study from October 30, 2022. Dictated by: Sabrina Anne M.D. on 11/05/2022 at 12:09 Approved by: Sabrina Anne M.D. on 11/05/2022 at 12:15
[2022-11-05] MEDS: propofoL 1,000 MG/100 ML VIAL 13.755 MG IV (10:09)
--- NOTE | 2022-11-05 10:23 | PC.NURSE ---
per Dr. Saucedo, ok to increased Propofol for vent synchrony.
[2022-11-05 10:28] LABS: Add Manual Diff / Slide Review NO; Basophils Absolute Auto 200 /uL (0-100); Basophils Percent Auto 0.7 % (0-2); Eosinophils Absolute Auto 100 /uL (0-450); Eosinophils Percent Auto 0.3 % (2-4); Hematocrit 31.1 % (41-53); Hemoglobin 10.6 g/dL (13.5-17.5); Lymphocytes Absolute Auto 1000 /uL (1100-4500); Lymphocytes Percent Auto 4.4 % (25-40); Mean Corpuscular HGB Conc 33.9 % (30-36); Mean Corpuscular Hemoglobin 28.5 PG (26-34); Mean Corpuscular Volume 84.2 fL (80-100); Monocytes Absolute Auto 1100 /uL (0-900); Monocytes Percent Auto 4.7 % (3-14); Neutrophils Absolute Auto 21000 /uL (1500-7000); Neutrophils Percent Auto 89.9 % (50-75); Platelet Count 516 X10^3/uL (150-400); White Blood Cell Count 23.4 X10^3/uL (4.5-11.0)
--- NOTE | 2022-11-05 10:39 | DIET.CONS ---
Dietary Consultation Note Admission Date: 10/30/2022 20:22 Assessment: Pt self extubated over weekend but needed reintubation. Recc reinitiating TF with no changes via OG per seafood clerk. Pt at risk for refeeding syndrome. Please monitor K+, Mg, phos and replete per protocol as needed. Pt receiving MVI and folic acid. Ht: 170.18 cm Wt: 57.5 kg BMI: 19.9 UBW: Last BM: 11/04/22 (11/04/22 16:10) MNA: Inder Score: 10 Nutrition Type of Feeding Tube OGT 11/03/22 17:00 Labs: RBC 3.70 X10^6/uL (4.5-5.9) L 11/05/22 10:10 Hgb 10.6 g/dL (13.5-17.5) L 11/05/22 10:10 Hct 31.1 % (41-53) L 11/05/22 10:10 Creatinine 0.63 mg/dL (0.66-1.25) L 11/04/22 23:45 Hemoglobin A1c 5.8 % (4.0-6.0) 10/30/22 16:10 Lactate 1.2 mmol/L (0.7-2.1) 11/04/22 23:45 Ferritin 393 ng/mL (18-464) 11/04/22 04:30 NT-Pro-B Natriuret Pep 7160 pg/mL (<125) H 11/04/22 23:45 Nutrition Diagnosis: Severe Chronic Malnutrition r/t inadequate diet aeb pt active heroin and etoh user currently intubated in withdrawal, pt 71% UBW, wt loss started upon of spouse. Interventions: 1. Rec HOB elevated >30 degrees during feeding. 2. When MAP >65, recc initiation of continuous enteral feeding via OG of formula Glucerna 1.5 starting conservatively at 10mL/h for 12h to test for feeding tolerance. If pt remains stable and tolerates trophic feed, recc advancing rate by 10mL q8h until reaching goal rate of 45mL/h with 150mL free water flushes q4h. Goal feeding provides 1620kcals (24kcal/kg), 89g PRO (1.3g/kg) and 144g CHO. Feed plus flushes provide 1720mL fluids (26mL/kg) remainder of fluids to be managed by hospitalist/seafood clerk. Electronically Signed by: Pati Parikh 11/05/22 10:39 Clinical Dietitian [address] [address]
--- NOTE | 2022-11-05 10:40 | PT-IP ANOTE ---
Discussed pt at AM interdisciplinary rounds. Pt needed to be re-intubated and is not presently appropriate for therapy evaluations. Will discharge therapy orders and remain available for consult when pt is able to participate.
[2022-11-05 10:47] LABS: Fractionated Inspired Oxygen 30; HCO3 ABG 28 mmol/L (22-26); Oxygen Saturation ABG 97 % (95-100); PCO2 ABG 35.1 mmHg (35-45); PO2 ABG 77 mmHg (80-100); TCO2 ABG 29 mmol/L (21-31); pH ABG 7.51 (7.35-7.45)
[2022-11-05 10:50] LABS: Alanine Aminotransferase 14 IU/L (<50); Albumin 3.1 g/dL (3.5-5.0); Albumin Globulin Ratio 0.7 (1.0-2.8); Alkaline Phosphatase 124 U/L (38-126); Aspartate Aminotransferase 24 IU/L (17-59); BUN Creatinine Ratio 16.1 (6-22); Bilirubin Total 0.7 mg/dL (0.2-1.3); Blood Urea Nitrogen 9 mg/dL (9-20); Calcium 8.1 mg/dL (8.4-10.2); Carbon Dioxide 29 mmol/L (22-32); Chloride 98 mmol/L (98-107); Estimated Glomerular Filt Rate > 60 mL/min (>60); Globulin 4.2 g/dL (1.7-4.1); Glucose 100 mg/dL (80-110); HEMOLYSIS < 15 (0-50); Potassium 3.4 mmol/L (3.4-5.1); Sodium 138 mmol/L (137-145); Total Protein 7.3 g/dL (6.3-8.2)
--- NOTE | 2022-11-05 10:50 | SLP.IPNOTE ---
Pt is presently intubated. Reintubated last night. pt is not appropriate for therapies at this time. Will discharge orders and consult when pt is appropriate and able to tolerate ST
--- NOTE | 2022-11-05 10:56 | PM.PN.1 ---
Subjective Subjective Date Patient Seen: 11/05/22 Interval history: Patient intubated and sedated. CTPA negative for PE. Exam Vital Signs (past 8 hours): - 11/05/22 03:00 11/05/22 03:00 11/05/22 03:16 Temperature Pulse Rate 118 H Respiratory Rate 29 H Blood Pressure 129/84 114/81 Pulse Oximetry 98 Oxygen Delivery Method 11/05/22 03:16 11/05/22 03:33 11/05/22 03:33 Temperature Pulse Rate 110 H 116 H Respiratory Rate 27 H 27 H Blood Pressure 122/78 Pulse Oximetry 97 97 Oxygen Delivery Method 11/05/22 03:45 11/05/22 03:45 11/05/22 04:00 Temperature Pulse Rate 112 H Respiratory Rate 26 H Blood Pressure 110/71 103/71 Pulse Oximetry 98 Oxygen Delivery Method 11/05/22 04:00 11/05/22 04:15 11/05/22 04:15 Temperature Pulse Rate 112 H 111 H Respiratory Rate 28 H 29 H Blood Pressure 108/70 Pulse Oximetry 97 97 Oxygen Delivery Method 11/05/22 04:30 11/05/22 04:30 11/05/22 04:45 Temperature Pulse Rate 110 H 109 H Respiratory Rate 28 H 28 H Blood Pressure 111/70 Pulse Oximetry 98 98 Oxygen Delivery Method 11/05/22 04:45 11/05/22 05:00 11/05/22 05:00 Temperature Pulse Rate 108 H Respiratory Rate 28 H Blood Pressure 104/66 108/69 Pulse Oximetry 99 Oxygen Delivery Method 11/05/22 04:00 11/05/22 05:15 11/05/22 05:15 Temperature Pulse Rate 112 H Respiratory Rate 29 H Blood Pressure 120/79 Pulse Oximetry 99 Oxygen Delivery Method Mechanical Ventilation 11/05/22 05:30 11/05/22 05:30 11/05/22 05:45 Temperature Pulse Rate 115 H Respiratory Rate 31 H Blood Pressure 105/81 108/81 Pulse Oximetry 99 Oxygen Delivery Method 11/05/22 05:45 11/05/22 06:00 11/05/22 06:00 Temperature Pulse Rate 115 H 117 H Respiratory Rate 31 H 32 H Blood Pressure 102/79 Pulse Oximetry 99 99 Oxygen Delivery Method 11/05/22 06:15 11/05/22 06:15 11/05/22 06:30 Temperature Pulse Rate 115 H Respiratory Rate 29 H Blood Pressure 102/80 101/75 Pulse Oximetry 97 Oxygen Delivery Method 11/05/22 06:30 11/05/22 07:00 11/05/22 07:00 Temperature Pulse Rate 115 H 114 H Respiratory Rate 29 H 28 H Blood Pressure 105/74 Pulse Oximetry 98 98 Oxygen Delivery Method 11/05/22 07:15 11/05/22 07:15 11/05/22 07:30 Temperature Pulse Rate 114 H 112 H Respiratory Rate 28 H 28 H Blood Pressure 98/69 Pulse Oximetry 98 99 Oxygen Delivery Method 11/05/22 07:30 11/05/22 07:45 11/05/22 07:45 Temperature Pulse Rate 111 H Respiratory Rate 24 Blood Pressure 96/70 102/73 Pulse Oximetry 98 Oxygen Delivery Method 11/05/22 08:00 11/05/22 08:00 11/05/22 08:00 Temperature 97.7 F Pulse Rate 108 H Respiratory Rate 28 H Blood Pressure 97/65 Pulse Oximetry 98 Oxygen Delivery Method Mechanical Ventilation 11/05/22 08:15 11/05/22 08:15 11/05/22 08:30 Temperature Pulse Rate 109 H Respiratory Rate 27 H Blood Pressure 98/68 103/71 Pulse Oximetry 98 Oxygen Delivery Method 11/05/22 08:30 11/05/22 08:45 11/05/22 08:45 Temperature Pulse Rate 104 H 108 H Respiratory Rate 29 H 27 H Blood Pressure 111/75 Pulse Oximetry 98 98 Oxygen Delivery Method 11/05/22 09:00 11/05/22 09:00 11/05/22 09:15 Temperature Pulse Rate 108 H Respiratory Rate 28 H Blood Pressure 109/74 101/72 Pulse Oximetry 98 Oxygen Delivery Method 11/05/22 09:15 11/05/22 09:30 11/05/22 09:30 Temperature Pulse Rate 107 H 105 H Respiratory Rate 29 H 28 H Blood Pressure 103/69 Pulse Oximetry 98 98 Oxygen Delivery Method 11/05/22 09:45 11/05/22 09:45 11/05/22 10:00 Temperature Pulse Rate 104 H Respiratory Rate 28 H Blood Pressure 101/70 109/72 Pulse Oximetry 98 Oxygen Delivery Method 11/05/22 10:00 11/05/22 10:15 11/05/22 10:15 Temperature Pulse Rate 104 H 104 H Respiratory Rate 29 H 29 H Blood Pressure 104/75 Pulse Oximetry 98 98 Oxygen Delivery Method 11/05/22 10:30 11/05/22 10:30 11/05/22 10:45 Temperature Pulse Rate 106 H 105 H Respiratory Rate 28 H 27 H Blood Pressure 106/74 Pulse Oximetry 94 95 Oxygen Delivery Method 11/05/22 10:45 Temperature Pulse Rate Respiratory Rate Blood Pressure 105/73 Pulse Oximetry Oxygen Delivery Method Fraction of Inspired Oxygen 94 Oxygen Delivery Method Mechanical Ventilation Oxygen Flow Rate 3 Narrative Exam Narrative: GEN:? Ill-appearing middle-aged male, alert, frequent harsh wet cough, able to expectorate yellowish sputum, following commands HEENT:NC, Face symmetric CHEST: Respiratory excursions symmetric, coarse but CTAB CV: RRR, no M/R/G ABD: Soft, NT/ND, BT present in all 4 quadrants, no organomegaly or masses EXTR: warm, well perfused, no C/C/E SKIN: warm and dry, no rash NEURO:? Alert, answering some questions with simple responses, following commands Objective Labs Result Diagrams: 11/05/22 10:10 11/05/22 10:10 Labs: Laboratory Results - last 24 hr 11/04/22 11/04/22 11/04/22 23:45 23:45 23:45 WBC 23.6 H D RBC 3.90 L Hgb 11.2 L Hct 33.2 L MCV 85.2 MCH 28.7 MCHC 33.7 RDW 14.1 Plt Count 495 H Neut % (Auto) 85.0 H Lymph % (Auto) 5.4 L [place] % (Auto) 6.2 Eos % (Auto) 2.5 Baso % (Auto) 0.9 Neut # (Auto) 15592 H Lymph # (Auto) 1300 [place] # (Auto) 1500 H Eos # (Auto) 600 H Baso # (Auto) 200 H APTT ABG pH ABG pCO2 ABG pO2 ABG HCO3 ABG Total CO2 ABG O2 Saturation ABG Base Excess FiO2 Sodium 141 Potassium 3.7 Chloride 103 Carbon Dioxide 26 BUN 7 L Creatinine 0.63 L Estimated GFR > 60 BUN/Creatinine Ratio 11.1 Glucose 116 H Lactate 1.2 Calcium 8.1 L Phosphorus Magnesium Total Bilirubin 0.9 AST 29 ALT 13 Alkaline Phosphatase 142 H Troponin I NT-Pro-B Natriuret Pep 7160 H Total Protein 7.3 Albumin 3.2 L Globulin 4.1 Albumin/Globulin Ratio 0.8 L Nasal Screen MRSA (PCR) 11/04/22 11/05/22 11/05/22 23:45 01:45 04:50 WBC RBC Hgb Hct MCV MCH MCHC RDW Plt Count Neut % (Auto) Lymph % (Auto) [place] % (Auto) Eos % (Auto) Baso % (Auto) Neut # (Auto) Lymph # (Auto) [place] # (Auto) Eos # (Auto) Baso # (Auto) APTT 40 H ABG pH ABG pCO2 ABG pO2 ABG HCO3 ABG Total CO2 ABG O2 Saturation ABG Base Excess FiO2 Sodium Potassium Chloride Carbon Dioxide BUN Creatinine Estimated GFR BUN/Creatinine Ratio Glucose Lactate Calcium Phosphorus Magnesium Total Bilirubin AST ALT Alkaline Phosphatase Troponin I 0.165 H* 0.155 H* NT-Pro-B Natriuret Pep Total Protein Albumin Globulin Albumin/Globulin Ratio Nasal Screen MRSA (PCR) 11/05/22 11/05/22 11/05/22 04:50 05:30 05:34 WBC RBC Hgb Hct MCV MCH MCHC RDW Plt Count Neut % (Auto) Lymph % (Auto) [place] % (Auto) Eos % (Auto) Baso % (Auto) Neut # (Auto) Lymph # (Auto) [place] # (Auto) Eos # (Auto) Baso # (Auto) APTT ABG pH 7.52 H ABG pCO2 34.6 L ABG pO2 79 L ABG HCO3 29 H ABG Total CO2 30 ABG O2 Saturation 97 ABG Base Excess 6.0 H FiO2 30 Sodium Potassium Chloride Carbon Dioxide BUN Creatinine Estimated GFR BUN/Creatinine Ratio Glucose Lactate Calcium Phosphorus 4.2 H Magnesium 1.7 Total Bilirubin AST ALT Alkaline Phosphatase Troponin I NT-Pro-B Natriuret Pep Total Protein Albumin Globulin Albumin/Globulin Ratio Nasal Screen MRSA (PCR) Positive for mrsa H 11/05/22 11/05/22 11/05/22 08:00 10:02 10:10 WBC 23.4 H RBC 3.70 L Hgb 10.6 L Hct 31.1 L MCV 84.2 MCH 28.5 MCHC 33.9 RDW 14.0 Plt Count 516 H Neut % (Auto) 89.9 H Lymph % (Auto) 4.4 L [place] % (Auto) 4.7 Eos % (Auto) 0.3 L Baso % (Auto) 0.7 Neut # (Auto) 77723 H Lymph # (Auto) 1000 L [place] # (Auto) 1100 H Eos # (Auto) 100 Baso # (Auto) 200 H APTT 37 H ABG pH 7.51 H ABG pCO2 35.1 ABG pO2 77 L ABG HCO3 28 H ABG Total CO2 29 ABG O2 Saturation 97 ABG Base Excess 5.0 H FiO2 30 Sodium Potassium Chloride Carbon Dioxide BUN Creatinine Estimated GFR BUN/Creatinine Ratio Glucose Lactate Calcium Phosphorus Magnesium Total Bilirubin AST ALT Alkaline Phosphatase Troponin I NT-Pro-B Natriuret Pep Total Protein Albumin Globulin Albumin/Globulin Ratio Nasal Screen MRSA (PCR) 11/05/22 11/05/22 10:10 23:24 WBC RBC Hgb Hct MCV MCH MCHC RDW Plt Count Neut % (Auto) Lymph % (Auto) [place] % (Auto) Eos % (Auto) Baso % (Auto) Neut # (Auto) Lymph # (Auto) [place] # (Auto) Eos # (Auto) Baso # (Auto) APTT ABG pH 7.27 L* ABG pCO2 60.8 H ABG pO2 76 L ABG HCO3 28 H ABG Total CO2 30 ABG O2 Saturation 93 L ABG Base Excess 1.0 FiO2 50 Sodium 138 Potassium 3.4 Chloride 98 Carbon Dioxide 29 BUN 9 Creatinine 0.56 L Estimated GFR > 60 BUN/Creatinine Ratio 16.1 Glucose 100 Lactate Calcium 8.1 L Phosphorus Magnesium Total Bilirubin 0.7 AST 24 ALT 14 Alkaline Phosphatase 124 Troponin I NT-Pro-B Natriuret Pep Total Protein 7.3 Albumin 3.1 L Globulin 4.2 H Albumin/Globulin Ratio 0.7 L Nasal Screen MRSA (PCR) [facility] Medical History Acid reflux Alcohol abuse Ankle pain Ankylosing spondylitis (1985) Ankylosing spondylitis Chronic back pain Foot pain Fracture cervical vertebra-closed GERD (gastroesophageal reflux disease) Hypertension Hypertension Muscle pain Tobacco use disorder, moderate, in early remission Surgical History History of open reduction and internal fixation (ORIF) procedure (2005) History of tonsillectomy Status post colonoscopy (2012) Status post incision and drainage Family History Father No problems noted. Mother Cancer Other Alcoholism Colorectal cancer Social History Smoking Status: Current every day smoker Assessment & Plan Assessment & Plan narrative: 1. Acute hypoxic respiratory failure Patient extubated this 11/04 after partial self-extubation. Then needed reintubation overnight on 11/05 due to worsening hypoxia and agitation. Patient remains on Zosyn for pneumonia with doxy for MRSA coverage. Completed a course of azithromycin. CTPA 11/05 negative for PE but worsening multifocal PNA. 2. Bilateral bacterial pneumonia [place] to be superinfection in the setting of influenza A.? As noted, he remains on Zosyn and doxy due to positive MRSA swab screen. 3. Influenza A Continuing supportive care. 4. Alcohol and herion dependence with withdrawal Patient is presently on a Precedex drip.? He is also receiving Librium. Continue thiamine, MV and folate. 5. Stress cardiomyopathy Echo with EF 40% and mid LV segment hypokinesis/akinesis suspicious for stress cardiomyopathy. Troponin up to 0.165 then downtrended to 0.155. PE ruled out. Heparin drip stopped. 6. Possible septic shock with acute end-organ failure Patient presented with pneumonia, lactic acidosis, leukocytosis, tachycardia, and hypoxia.? He has been on IV fluids.? Overall, sepsis physiology has resolved. 7. Acute metabolic encephalopathy Likely multifactorial from infection, sepsis, alcohol withdrawal. Will be difficult to wean sedation and extubate so may be ongoing. 8. Essential hypertension On metoprolol on an outpatient basis.? This has been held in the setting of sepsis. 9. Protein calorie malnutrition Tube feeds initiated yesterday at 10 cc/hour. Now that he is extubated, those have been discontinued. Await for speech therapy to clear him for a diet. 10. Normocytic anemia Hemoglobin is stable at 10.1. 11. Hypokalemia continue to replete per pharmacy. Code status Full Prophylaxis Lovenox Disposition ICU I spent a total of 35 minutes of critical care time on this patient's care today; this time is exclusive of procedural time. Time Spent With Patient Critical Care time: I spent a total of [] minutes of critical care time on this patient's care today; this time is exclusive of procedural time. Quality VTE Deep Vein Thrombosis/Pulmonary Embolism Present on Admission: No
--- NOTE | 2022-11-05 11:02 | OT.IPNOTE ---
Pt not appropriate for therapies at this time as re-intubated, therefore discharge OT eval orders.
--- NOTE | 2022-11-05 12:00 | DI.RAD.S_ITS ---
PROCEDURE: XR KUB INDICATIONS: Verify OGT placement TECHNIQUE: One view of the abdomen acquired. COMPARISON: None. FINDINGS: Surgical changes and devices: OG tube tip is in left upper quadrant below the level of left hemidiaphragm and likely within the stomach lumen. [place] catheter is seen within partially distended urinary bladder. Bowel: Bowel gas pattern is normal. Soft tissues: No suspicious abdominal calcifications. Visualized solid organ contours appear normal in size. Bones: No suspicious bony lesions. IMPRESSION: OG tube tip is in the expected location of stomach lumen. No gross free air. Dictated by: Orlando Samano M.D. on 11/05/2022 at 13:06 Approved by: Orlando Samano M.D. on 11/05/2022 at 13:06
[2022-11-05] MEDS: POTASSIUM CHLORIDE IN WATER 10 MEQ/100 ML PIGGYBACK 100 MEQ IV ×2 (12:18→13:41)
--- NOTE | 2022-11-05 13:09 | PC.NURSE ---
Per Dr. Chiquita fowler to use OGT. Ok to restart TF.
[2022-11-05] MEDS: FOLIC ACID 1 MG TABLET PO (13:13)
[2022-11-05] MEDS: MULTIVITAMIN 1 TABLET 1 TAB PO (13:14)
[2022-11-05] MEDS: chlordiazePOXIDE 25 MG CAPSULE 50 MG PO ×2 (13:14→17:24)
[2022-11-05] MEDS: propofoL 1,000 MG/100 ML VIAL 17.685 MG IV ×2 (14:57→21:05)
[2022-11-05] MEDS: fentaNYL 1,000 MCG in DEXTROSE 5% IN WATER 230 ML 15.425 MCG IV (17:14)
--- NOTE | 2022-11-05 19:47 | DI.RAD.S_ITS ---
PROCEDURE: XR CHEST 1V INDICATIONS: intubated, pneumonia TECHNIQUE: One view of the chest was acquired. COMPARISON: [facility], CR, XR CHEST 1V, 11/04/2022, 23:02. [facility], CR, XR CHEST 1V, 11/04/2022, 21:44. FINDINGS: Surgical changes and devices: Cervical thoracic fusion hardware partially imaged. Tip of the endotracheal tube terminates 3.2 centimeters above the roxi. right internal jugular central venous catheter tip projects over the lower SVC. NG/OG tube tip projects over the gastric body. Lungs and pleura: Small bilateral pleural effusions, not significantly changed. Nonspecific mid and lower lung opacities also similar to before. No pneumothorax. Mediastinum: Mediastinal and hilar contours appear similar to before. Bones and chest wall: No suspicious bony lesions. Overlying soft tissues appear unremarkable. IMPRESSION: Small bilateral pleural effusions and nonspecific bilateral pulmonary opacities are not significantly changed. Dictated by: Jluis Marte M.D. on 11/06/2022 at 8:58 Approved by: Jluis Marte M.D. on 11/06/2022 at 9:02
--- NOTE | 2022-11-05 19:51 | P.ICUMDRN_ITS ---
- Date Patient Seen: 11/05/22 :: This patient was seen via real time interactive two-way audiovisual telecommunic ation. Note: Discussed with RN on MDR rounds. Patient currently on Prop @ 45, Fent @ 1mcg/kg Levophed is off. Vent current settings: 390, 25, 8, 25%. Last blood gas was from about 22 hours ago. CXR w/ e/o pneumonia On tube feeds @ 10/hour. Receiving PPI Is not on mIVF, receiving Lasix BID. Last lytes panel from earlier today, K/Mg repleted per RN On Zosyn/Doxy. MRSA positive N: Wean Prop, Fent as able for SAT in morning C: Levophed if needed for MAP goal >65. Would avoid additional IVF at this time P: SBT in morning. CXR in morning. Would obtain VBG now, may be able to titrate down RR pending this. HOB >30 degrees, CHG BID while intubated GI: Uptitrate tube feeds to goal, dietary following. Continue PPI. On MVI/Thiamine/Folic acid R: Continue Lasix BID, goal negative 1-2L. Would follow BMP/Mg BID while diuresing; repeat labs pending this evening H: No acute bleeding. Would restart VTE prophylaxis with Lovenox, ensure SCDs in place ID: [email or web address], Dox ongoing. Follow up repeat cultures. If persistent pneumonia/poor response, consider Bronch Endo: Monitor BGs Please contact Tele-ICU if any change
[2022-11-06] VITALS (101 sets, daily range): BP systolic 76–104; BP diastolic 50–65; PULSE 76–112; RESP 19–27; TEMP 36.7–37.2; O2SAT 84–99
[2022-11-06 00:40] LABS: BUN Creatinine Ratio 14.1 (6-22); Blood Urea Nitrogen 12 mg/dL (9-20); Calcium 7.9 mg/dL (8.4-10.2); Carbon Dioxide 32 mmol/L (22-32); Chloride 97 mmol/L (98-107); Estimated Glomerular Filt Rate > 60 mL/min (>60); Glucose 104 mg/dL (80-110); HEMOLYSIS < 15 (0-50); Magnesium 2.2 mg/dL (1.6-2.3); Potassium 3.3 mmol/L (3.4-5.1); Sodium 139 mmol/L (137-145)
[2022-11-06] MEDS: FUROSEMIDE 40 MG/4 ML VIAL IV (01:09)
[2022-11-06] MEDS: chlordiazePOXIDE 25 MG CAPSULE 50 MG PO ×4 (01:09→18:17)
[2022-11-06] MEDS: CHLORHEXIDINE GLUCONATE 15 ML CUP PO ×4 (01:09→18:19)
[2022-11-06] MEDS: propofoL 1,000 MG/100 ML VIAL 17.685 MG IV ×2 (01:43→07:01)
[2022-11-06 04:20] LABS: HCO3 VBG 31 mmol/L (23-28); Oxygen Saturation VBG 73 % (70-75); PCO2 VBG 41.6 mmHg (45-50); PO2 VBG 36 mmHg (35-45); Total CO2 VBG 32 mmol/L (24-29); pH VBG 7.48 (7.33-7.43)
[2022-11-06] MEDS: PIPERACILLIN/TAZO 3.375 GM in SODIUM CHLORIDE 0.9% 100 ML IV ×3 (04:50→20:45)
[2022-11-06 05:52] LABS: Add Manual Diff / Slide Review NO; Basophils Absolute Auto 100 /uL (0-100); Eosinophils Absolute Auto 600 /uL (0-450); Eosinophils Percent Auto 5.1 % (2-4); Hematocrit 28.5 % (41-53); Hemoglobin 9.8 g/dL (13.5-17.5); Lymphocytes Absolute Auto 1600 /uL (1100-4500); Mean Corpuscular HGB Conc 34.2 % (30-36); Mean Corpuscular Hemoglobin 28.8 PG (26-34); Mean Corpuscular Volume 84.1 fL (80-100); Monocytes Absolute Auto 1400 /uL (0-900); Neutrophils Absolute Auto 7900 /uL (1500-7000); Neutrophils Percent Auto 67.9 % (50-75); Platelet Count 555 X10^3/uL (150-400); Red Blood Cell Count 3.39 X10^6/uL (4.5-5.9); Red Cell Distribution Width 14.3 % (11.6-14.8); White Blood Cell Count 11.5 X10^3/uL (4.5-11.0)
[2022-11-06 06:17] LABS: Alanine Aminotransferase 12 IU/L (<50); Albumin 2.9 g/dL (3.5-5.0); Albumin Globulin Ratio 0.7 (1.0-2.8); Alkaline Phosphatase 112 U/L (38-126); Aspartate Aminotransferase 22 IU/L (17-59); BUN Creatinine Ratio 15.9 (6-22); Bilirubin Total 0.4 mg/dL (0.2-1.3); Blood Urea Nitrogen 13 mg/dL (9-20); Calcium 7.9 mg/dL (8.4-10.2); Carbon Dioxide 31 mmol/L (22-32); Chloride 97 mmol/L (98-107); Estimated Glomerular Filt Rate > 60 mL/min (>60); Glucose 105 mg/dL (80-110); HEMOLYSIS < 15 (0-50); Potassium 3.1 mmol/L (3.4-5.1); Sodium 137 mmol/L (137-145); Total Protein 6.9 g/dL (6.3-8.2)
[2022-11-06] MEDS: POTASSIUM CHLORIDE IN WATER 10 MEQ/100 ML PIGGYBACK 100 MEQ IV ×4 (07:00→10:37)
[2022-11-06] MEDS: PANTOPRAZOLE 40 MG VIAL IV ×2 (08:18→20:45)
[2022-11-06] MEDS: NICOTINE 7 MG PATCH TOP (08:19)
[2022-11-06] MEDS: MULTIVITAMIN 1 TABLET 1 TAB PO (08:21)
[2022-11-06] MEDS: FOLIC ACID 1 MG TABLET PO (08:21)
--- NOTE | 2022-11-06 09:04 | P.PN_ITS ---
Subjective Subjective Date Patient Seen: 11/06/22 Interval history: Back on pressors at 2mcg. Sedation vacation today. Exam Vital Signs (past 8 hours): - 11/06/22 01:15 11/06/22 01:15 11/06/22 01:30 Temperature 98.4 F Pulse Rate 106 H Respiratory Rate 21 Blood Pressure 91/61 104/58 L Pulse Oximetry 97 Oxygen Delivery Method 11/06/22 01:30 11/06/22 01:45 11/06/22 01:45 Temperature Pulse Rate 105 H 107 H Respiratory Rate 24 21 Blood Pressure 99/60 Pulse Oximetry 96 96 Oxygen Delivery Method 11/06/22 02:00 11/06/22 02:00 11/06/22 02:15 Temperature Pulse Rate 109 H Respiratory Rate 21 Blood Pressure 92/59 L 95/57 L Pulse Oximetry 96 Oxygen Delivery Method 11/06/22 02:15 11/06/22 02:30 11/06/22 02:30 Temperature 98.9 F Pulse Rate 109 H 110 H Respiratory Rate 21 22 Blood Pressure 95/52 L Pulse Oximetry 96 96 Oxygen Delivery Method 11/06/22 02:45 11/06/22 02:45 11/06/22 03:00 Temperature Pulse Rate 109 H Respiratory Rate 22 Blood Pressure 95/51 L 84/50 L Pulse Oximetry 96 Oxygen Delivery Method 11/06/22 03:00 11/06/22 03:02 11/06/22 03:02 Temperature Pulse Rate 109 H 109 H Respiratory Rate 21 21 Blood Pressure 86/53 L Pulse Oximetry 96 96 Oxygen Delivery Method 11/06/22 03:15 11/06/22 03:15 11/06/22 03:30 Temperature 98.1 F Pulse Rate 109 H 112 H Respiratory Rate 21 23 Blood Pressure 98/60 90/59 L Pulse Oximetry 96 96 Oxygen Delivery Method 11/06/22 03:30 11/06/22 03:45 11/06/22 03:45 Temperature Pulse Rate 109 H Respiratory Rate 20 Blood Pressure 97/63 101/64 Pulse Oximetry 96 Oxygen Delivery Method 11/06/22 04:00 11/06/22 04:00 11/06/22 04:00 Temperature Pulse Rate 109 H Respiratory Rate 20 Blood Pressure 98/60 Pulse Oximetry 96 Oxygen Delivery Method Mechanical Ventilation 11/06/22 05:00 11/06/22 05:22 11/06/22 04:15 Temperature 98.1 F 98.1 F Pulse Rate Respiratory Rate Blood Pressure 100/57 L Pulse Oximetry Oxygen Delivery Method 11/06/22 04:15 11/06/22 04:30 11/06/22 04:30 Temperature Pulse Rate 108 H 105 H Respiratory Rate 21 20 Blood Pressure 90/60 Pulse Oximetry 96 96 Oxygen Delivery Method 11/06/22 04:45 11/06/22 04:45 11/06/22 05:00 Temperature Pulse Rate 105 H Respiratory Rate 20 Blood Pressure 92/62 86/59 L Pulse Oximetry 96 Oxygen Delivery Method 11/06/22 05:00 11/06/22 05:15 11/06/22 05:15 Temperature Pulse Rate 105 H 104 H Respiratory Rate 20 20 Blood Pressure 92/61 Pulse Oximetry 96 96 Oxygen Delivery Method 11/06/22 05:30 11/06/22 05:30 11/06/22 06:22 Temperature 98.0 F Pulse Rate 104 H Respiratory Rate 20 Blood Pressure 95/60 97/54 L Pulse Oximetry 96 Oxygen Delivery Method 11/06/22 05:45 11/06/22 05:45 11/06/22 06:00 Temperature Pulse Rate 106 H Respiratory Rate 20 Blood Pressure 91/58 L 92/58 L Pulse Oximetry 96 Oxygen Delivery Method 11/06/22 06:00 11/06/22 06:15 11/06/22 06:15 Temperature Pulse Rate 106 H 106 H Respiratory Rate 20 21 Blood Pressure 87/54 L Pulse Oximetry 96 91 Oxygen Delivery Method 11/06/22 06:30 11/06/22 06:30 11/06/22 06:45 Temperature 98.0 F Pulse Rate 104 H Respiratory Rate 20 Blood Pressure 92/60 92/60 91/59 L Pulse Oximetry 94 Oxygen Delivery Method 11/06/22 06:45 11/06/22 07:00 11/06/22 07:01 Temperature Pulse Rate 104 H 105 H Respiratory Rate 20 20 Blood Pressure 86/58 L Pulse Oximetry 95 92 Oxygen Delivery Method 11/06/22 07:01 11/06/22 07:15 11/06/22 07:15 Temperature Pulse Rate 105 H 103 H Respiratory Rate 20 20 Blood Pressure 88/60 L Pulse Oximetry 93 95 Oxygen Delivery Method 11/06/22 07:30 11/06/22 07:30 11/06/22 07:45 Temperature Pulse Rate 102 H Respiratory Rate 20 Blood Pressure 92/59 L 86/60 L Pulse Oximetry 95 Oxygen Delivery Method 11/06/22 07:45 11/06/22 08:00 11/06/22 08:00 Temperature Pulse Rate 103 H 103 H Respiratory Rate 20 20 Blood Pressure 88/60 L Pulse Oximetry 97 97 Oxygen Delivery Method Fraction of Inspired Oxygen 94 Oxygen Delivery Method Mechanical Ventilation Oxygen Flow Rate 3 Narrative Exam Narrative: General: Intubated and sedated HEENT: Pupils equal and reactive, anicteric, poor dentition Lungs: Bilateral coarse crackles throughout Heart: Regular rhythm Abdomen: Nondistended but seems diffusely tender with patient grimacing on deep palpation Extremities: No cyanosis or edema Neurological: No focal deficits Skin: No rash or petechiae Objective Labs Result Diagrams: 11/06/22 05:00 11/06/22 05:00 Labs: Laboratory Results - last 24 hr 11/05/22 11/05/22 11/05/22 05:30 10:02 10:10 WBC 23.4 H RBC 3.70 L Hgb 10.6 L Hct 31.1 L MCV 84.2 MCH 28.5 MCHC 33.9 RDW 14.0 Plt Count 516 H Neut % (Auto) 89.9 H Lymph % (Auto) 4.4 L [place] % (Auto) 4.7 Eos % (Auto) 0.3 L Baso % (Auto) 0.7 Neut # (Auto) 86903 H Lymph # (Auto) 1000 L [place] # (Auto) 1100 H Eos # (Auto) 100 Baso # (Auto) 200 H ABG pH 7.51 H ABG pCO2 35.1 ABG pO2 77 L ABG HCO3 28 H ABG Total CO2 29 ABG O2 Saturation 97 ABG Base Excess 5.0 H VBG pH VBG pCO2 VBG pO2 VBG HCO3 VBG Total CO2 VBG O2 Saturation VBG Base Excess FiO2 30 Sodium Potassium Chloride Carbon Dioxide BUN Creatinine Estimated GFR BUN/Creatinine Ratio Glucose Calcium Magnesium Total Bilirubin AST ALT Alkaline Phosphatase Total Protein Albumin Globulin Albumin/Globulin Ratio Nasal Screen MRSA (PCR) Positive for mrsa H 11/05/22 11/06/22 11/06/22 10:10 00:02 00:17 WBC RBC Hgb Hct MCV MCH MCHC RDW Plt Count Neut % (Auto) Lymph % (Auto) [place] % (Auto) Eos % (Auto) Baso % (Auto) Neut # (Auto) Lymph # (Auto) [place] # (Auto) Eos # (Auto) Baso # (Auto) ABG pH ABG pCO2 ABG pO2 ABG HCO3 ABG Total CO2 ABG O2 Saturation ABG Base Excess VBG pH 7.48 H VBG pCO2 41.6 L VBG pO2 36 VBG HCO3 31 H VBG Total CO2 32 H VBG O2 Saturation 73 VBG Base Excess 8.0 H FiO2 Sodium 138 139 Potassium 3.4 3.3 L Chloride 98 97 L Carbon Dioxide 29 32 BUN 9 12 Creatinine 0.56 L 0.85 Estimated GFR > 60 > 60 BUN/Creatinine Ratio 16.1 14.1 Glucose 100 104 Calcium 8.1 L 7.9 L Magnesium 2.2 Total Bilirubin 0.7 AST 24 ALT 14 Alkaline Phosphatase 124 Total Protein 7.3 Albumin 3.1 L Globulin 4.2 H Albumin/Globulin Ratio 0.7 L Nasal Screen MRSA (PCR) 11/06/22 11/06/22 05:00 05:00 WBC 11.5 H D RBC 3.39 L Hgb 9.8 L Hct 28.5 L MCV 84.1 MCH 28.8 MCHC 34.2 RDW 14.3 Plt Count 555 H Neut % (Auto) 67.9 D Lymph % (Auto) 14.0 L [place] % (Auto) 12.0 Eos % (Auto) 5.1 H Baso % (Auto) 1.0 Neut # (Auto) 7900 H Lymph # (Auto) 1600 [place] # (Auto) 1400 H Eos # (Auto) 600 H Baso # (Auto) 100 ABG pH ABG pCO2 ABG pO2 ABG HCO3 ABG Total CO2 ABG O2 Saturation ABG Base Excess VBG pH VBG pCO2 VBG pO2 VBG HCO3 VBG Total CO2 VBG O2 Saturation VBG Base Excess FiO2 Sodium 137 Potassium 3.1 L Chloride 97 L Carbon Dioxide 31 BUN 13 Creatinine 0.82 Estimated GFR > 60 BUN/Creatinine Ratio 15.9 Glucose 105 Calcium 7.9 L Magnesium Total Bilirubin 0.4 AST 22 ALT 12 Alkaline Phosphatase 112 Total Protein 6.9 Albumin 2.9 L Globulin 4.0 Albumin/Globulin Ratio 0.7 L Nasal Screen MRSA (PCR) [facility] Medical History Acid reflux Alcohol abuse Ankle pain Ankylosing spondylitis (1985) Ankylosing spondylitis Chronic back pain Foot pain Fracture cervical vertebra-closed GERD (gastroesophageal reflux disease) Hypertension Hypertension Muscle pain Tobacco use disorder, moderate, in early remission Surgical History History of open reduction and internal fixation (ORIF) procedure (2005) History of tonsillectomy Status post colonoscopy (2012) Status post incision and drainage Family History Father No problems noted. Mother Cancer Other Alcoholism Colorectal cancer Social History Smoking Status: Current every day smoker Assessment & Plan Assessment & Plan narrative: 1. Acute hypoxic respiratory failure Patient extubated this 11/04 after partial self-extubation. Then needed reintubation overnight on 11/05 due to worsening hypoxia and agitation. Patient remains on Zosyn for pneumonia with doxy for MRSA coverage. Completed a course of azithromycin. CTPA 11/05 negative for PE but worsening multifocal PNA. 2. Bilateral bacterial pneumonia Evans to be superinfection in the setting of influenza A.? As noted, he remains on Zosyn and doxy due to positive MRSA swab screen. 3. Influenza A Continuing supportive care. 4. Alcohol and herion dependence with withdrawal Patient is presently on a Precedex drip.? He is also receiving Librium. Continue thiamine, MV and folate. 5. Stress cardiomyopathy Echo with EF 40% and mid LV segment hypokinesis/akinesis suspicious for stress cardiomyopathy. Troponin up to 0.165 then downtrended to 0.155. PE ruled out. Heparin drip stopped. 6. Possible septic shock with acute end-organ failure Patient presented with pneumonia, lactic acidosis, leukocytosis, tachycardia, and hypoxia.? He has been on IV fluids.? Overall, sepsis physiology has resolved. 7. Acute metabolic encephalopathy Likely multifactorial from infection, sepsis, alcohol withdrawal. Will be difficult to wean sedation and extubate so may be ongoing. 8. Essential hypertension On metoprolol on an outpatient basis.? This has been held in the setting of sepsis. 9. Protein calorie malnutrition Tube feeds initiated yesterday at 10 cc/hour. Now that he is extubated, those have been discontinued. Await for speech therapy to clear him for a diet. 10. Normocytic anemia Hemoglobin is stable at 10.1. 11. Hypokalemia continue to replete per pharmacy. Code status Full Prophylaxis Lovenox Disposition ICU I spent a total of 35 minutes of critical care time on this patient's care today; this time is exclusive of procedural time. Time Spent With Patient Critical Care time: I spent a total of [] minutes of critical care time on this patient's care today; this time is exclusive of procedural time. Quality VTE Deep Vein Thrombosis/Pulmonary Embolism Present on Admission: No
[2022-11-06] MEDS: fentaNYL 1,000 MCG in DEXTROSE 5% IN WATER 230 ML 15.425 MCG IV (09:14)
--- NOTE | 2022-11-06 09:23 | P.TELICUPN_ITS ---
Subjective Subjective IF CAMERA ACTIVATED, patient seen via real-time interactive audiovisual communication: Camera activated Consent obtained for tele-directional bore operator care: Yes Patient Location: ICU Provider location (State): [place] Other participants/roles: RN, hospitalist Interval history: Patient Summary: 61 yo M with PMH of HTN, ETOH abyse, and ankylosing spondylitis, who was recently had flu then admitted 10/30/22 with PNA and acute respiratory failuring requiring intubation 10/31/22. 11/04: Patient extubated 11/05: patient reintubated for agitation and acute respiratory failure (pt. unable to manage secretions) about 12 hours after extubation. Recent events: No sig events overnight. BP is borderline low (MAP 62-68). PT currently on the following drips Fentanyl 1 mcg/kg/hr Propofol 45 mcg/kg/min Current vent settings R 20 VT 390 PEEP 8 FIO2 30% Current Medications Current Medications Medications: Home Medications ketorolac 0.4 % eye drops 1 drp OPHTH QID #5 mL 06/20/17 [Rx Confirmed 10/13/18] indomethacin 50 mg capsule 50 mg PO TIDP PRN pain, moderate #90 caps 10/13/18 [Rx] amitriptyline 25 mg tablet 25 mg PO BEDTIME #30 tabs 01/07/19 [Rx] ondansetron 4 mg disintegrating tablet 4 mg PO TID-QID PRN nausea and vomiting #10 tabs 02/24/19 [Rx] cyclobenzaprine 10 mg tablet 10 mg PO TIDP #90 tabs 11/19/19 [Rx] gabapentin 300 mg capsule (Neurontin) 300 mg PO Q8H #90 caps 11/19/19 [Rx] metoprolol succinate 50 mg tablet,extended release 24 hr (Toprol XL) 50 mg PO BID #60 tabs 11/19/19 [Rx] omeprazole 20 mg capsule,delayed release 20 mg PO QDAY #30 caps 11/19/19 [Rx] doxycycline hyclate 100 mg capsule 100 mg PO BID #14 caps 05/03/22 [Rx] Visit Medications (administered) Generic Name Dose Route Start Last Admin Trade Name Freq PRN Reason Stop Dose Admin Chlordiazepoxide HCl 50 mg 11/04/22 12:00 11/06/22 05:59 Chlordiazepoxide 25 Mg Capsule PO 50 mg Q6HR JYOTI Administration Chlorhexidine Gluconate 15 ml 12/07/22 18:00 11/06/22 05:59 Chlorhexidine Gluconate 15 Ml Cup PO 15 ml Q6HR JYOTI Administration Folic Acid 1 mg 10/31/22 09:00 11/06/22 08:21 Folic Acid 1 Mg Tablet PO 1 mg DAILY JYOTI Administration Furosemide 40 mg 11/05/22 04:00 11/06/22 01:09 Furosemide 40 Mg/4 Ml Vial IV 40 mg Q12HR JYOTI Administration Haloperidol 5 mg 11/04/22 09:36 11/04/22 10:18 Haloperidol 5 Mg/Ml Vial IV 5 mg Q2HR PRN Administration Agitation Sodium Chloride 1,000 mls @ 100 mls/hr 10/31/22 00:45 11/02/22 17:25 Normal Saline 0.9% IV 0 mls/hr CONT JYOTI Infusion Thiamine HCl 100 mg/ Sodium 101 mls @ 404 mls/hr 10/31/22 09:30 11/05/22 09:33 Chloride IV Infused DAILY JYOTI Infusion Piperacillin Sod/Tazobactam 100 mls @ 25 mls/hr 10/31/22 12:45 11/06/22 09:20 Sod 3.375 gm/ Sodium Chloride IV Infused Q8H JYOTI Infusion Sodium Chloride 500 mls @ 1,000 mls/hr 10/31/22 14:03 10/31/22 18:19 Normal Saline 0.9% IV Infused BOLUS PRN Infusion Fluid replacement Propofol 1,000 mg in 100 mls @ 1.965 mls/hr 10/31/22 14:15 11/06/22 07:01 Propofol IV 45 mcg/kg/min TITRATE JYOTI 17.685 mls/hr Administration Protocol 5 MCG/KG/MIN Fentanyl 1,000 mcg/ Dextrose 250 mls @ 10.798 mls/hr 11/04/22 22:45 11/06/22 09:14 IV 1 mcg/kg/hr TITRATE JYOTI 15.425 mls/hr Administration Protocol 0.7 MCG/KG/HR NOREPINEPHRINE BITARTRATE/D5W 4 mg in 250 mls @ 30 mls/hr 11/04/22 22:51 11/05/22 02:45 Levophed IV Not Given TITRATE JYOTI Protocol 8 MCG/MIN Doxycycline Hyclate 100 mg/ 100 mls @ 100 mls/hr 11/04/22 23:30 12/13/22 07: 44 Sodium Chloride IV Infused Q12H JYOTI Infusion POTASSIUM CHLORIDE IN WATER 10 meq in 100 mls @ 100 mls/hr 11/06/22 06:45 11/06/22 09:15 Potassium Cl 10 Meq/100 Ml Ruth IV 11/06/22 10:44 100 mls/hr Q1H JYOTI Administration Lorazepam 0 mg 10/31/22 00:42 11/04/22 14:03 Lorazepam 2 Mg/Ml Inj IV 2 mg CIWAPRN PRN Administration Alcohol Withdrawal/n/V Protocol Lorazepam 1 mg 11/04/22 09:37 11/04/22 15:20 Lorazepam 2 Mg/Ml Inj IV 1 mg Q2HR PRN Administration Anxiety Morphine Sulfate 1 mg 11/04/22 09:38 11/04/22 13:36 Morphine 2 Mg/Ml Inj IV 1 mg Q2HR PRN Administration Pain, Moderate (4-6) Multivitamins 1 tab 10/31/22 09:00 11/06/22 08:21 Multivitamin 1 Tablet PO 1 tab DAILY JYOTI Administration Nicotine 7 mg 10/31/22 09:00 11/06/22 08:19 Nicotine 7 Mg Patch TOP 7 mg DAILY JYOTI Administration Ondansetron HCl 4 mg 10/31/22 01:07 11/04/22 12:41 Ondansetron 4 Mg/2 Ml Inj IV 4 mg Q4HR PRN Administration Nausea And Vomiting Pantoprazole Sodium 40 mg 10/31/22 21:00 11/06/22 08:18 Pantoprazole 40 Mg Vial IV 40 mg BID JYOTI Administration Objective Ventilator Parameters: Ventilator Settings FiO2 25 RT Vent Frequency 20 Ventilator Tidal Volume 390 Exhaled Vt/kg IBW 5.8 Positive End Expiratory 8 Pressure Inspiratory Phase Time 0.85 I:E Ratio 1:1.2 Patient Position HOB >= 30 degrees Labs Result Diagrams: 11/06/22 05:00 11/06/22 05:00 Labs: Laboratory Results - last 24 hr 11/05/22 11/05/22 11/05/22 10:02 10:10 10:10 WBC 23.4 H RBC 3.70 L Hgb 10.6 L Hct 31.1 L MCV 84.2 MCH 28.5 MCHC 33.9 RDW 14.0 Plt Count 516 H Neut % (Auto) 89.9 H Lymph % (Auto) 4.4 L [place] % (Auto) 4.7 Eos % (Auto) 0.3 L Baso % (Auto) 0.7 Neut # (Auto) 49611 H Lymph # (Auto) 1000 L [place] # (Auto) 1100 H Eos # (Auto) 100 Baso # (Auto) 200 H ABG pH 7.51 H ABG pCO2 35.1 ABG pO2 77 L ABG HCO3 28 H ABG Total CO2 29 ABG O2 Saturation 97 ABG Base Excess 5.0 H VBG pH VBG pCO2 VBG pO2 VBG HCO3 VBG Total CO2 VBG O2 Saturation VBG Base Excess FiO2 30 Sodium 138 Potassium 3.4 Chloride 98 Carbon Dioxide 29 BUN 9 Creatinine 0.56 L Estimated GFR > 60 BUN/Creatinine Ratio 16.1 Glucose 100 Calcium 8.1 L Magnesium Total Bilirubin 0.7 AST 24 ALT 14 Alkaline Phosphatase 124 Total Protein 7.3 Albumin 3.1 L Globulin 4.2 H Albumin/Globulin Ratio 0.7 L 11/06/22 11/06/22 11/06/22 00:02 00:17 05:00 WBC 11.5 H D RBC 3.39 L Hgb 9.8 L Hct 28.5 L MCV 84.1 MCH 28.8 MCHC 34.2 RDW 14.3 Plt Count 555 H Neut % (Auto) 67.9 D Lymph % (Auto) 14.0 L [place] % (Auto) 12.0 Eos % (Auto) 5.1 H Baso % (Auto) 1.0 Neut # (Auto) 7900 H Lymph # (Auto) 1600 [place] # (Auto) 1400 H Eos # (Auto) 600 H Baso # (Auto) 100 ABG pH ABG pCO2 ABG pO2 ABG HCO3 ABG Total CO2 ABG O2 Saturation ABG Base Excess VBG pH 7.48 H VBG pCO2 41.6 L VBG pO2 36 VBG HCO3 31 H VBG Total CO2 32 H VBG O2 Saturation 73 VBG Base Excess 8.0 H FiO2 Sodium 139 Potassium 3.3 L Chloride 97 L Carbon Dioxide 32 BUN 12 Creatinine 0.85 Estimated GFR > 60 BUN/Creatinine Ratio 14.1 Glucose 104 Calcium 7.9 L Magnesium 2.2 Total Bilirubin AST ALT Alkaline Phosphatase Total Protein Albumin Globulin Albumin/Globulin Ratio 11/06/22 05:00 WBC RBC Hgb Hct MCV MCH MCHC RDW Plt Count Neut % (Auto) Lymph % (Auto) [place] % (Auto) Eos % (Auto) Baso % (Auto) Neut # (Auto) Lymph # (Auto) [place] # (Auto) Eos # (Auto) Baso # (Auto) ABG pH ABG pCO2 ABG pO2 ABG HCO3 ABG Total CO2 ABG O2 Saturation ABG Base Excess VBG pH VBG pCO2 VBG pO2 VBG HCO3 VBG Total CO2 VBG O2 Saturation VBG Base Excess FiO2 Sodium 137 Potassium 3.1 L Chloride 97 L Carbon Dioxide 31 BUN 13 Creatinine 0.82 Estimated GFR > 60 BUN/Creatinine Ratio 15.9 Glucose 105 Calcium 7.9 L Magnesium Total Bilirubin 0.4 AST 22 ALT 12 Alkaline Phosphatase 112 Total Protein 6.9 Albumin 2.9 L Globulin 4.0 Albumin/Globulin Ratio 0.7 L Exam Vital Signs (past 8 hours): - 11/06/22 01:30 11/06/22 01:30 11/06/22 01:45 Temperature Pulse Rate 105 H Respiratory Rate 24 Blood Pressure 104/58 L 99/60 Pulse Oximetry 96 Oxygen Delivery Method 11/06/22 01:45 11/06/22 02:00 11/06/22 02:00 Temperature Pulse Rate 107 H 109 H Respiratory Rate 21 21 Blood Pressure 92/59 L Pulse Oximetry 96 96 Oxygen Delivery Method 11/06/22 02:15 11/06/22 02:15 11/06/22 02:30 Temperature 98.9 F Pulse Rate 109 H Respiratory Rate 21 Blood Pressure 95/57 L 95/52 L Pulse Oximetry 96 Oxygen Delivery Method 11/06/22 02:30 11/06/22 02:45 11/06/22 02:45 Temperature Pulse Rate 110 H 109 H Respiratory Rate 22 22 Blood Pressure 95/51 L Pulse Oximetry 96 96 Oxygen Delivery Method 11/06/22 03:00 11/06/22 03:00 11/06/22 03:02 Temperature Pulse Rate 109 H 109 H Respiratory Rate 21 21 Blood Pressure 84/50 L Pulse Oximetry 96 96 Oxygen Delivery Method 11/06/22 03:02 11/06/22 03:15 11/06/22 03:15 Temperature 98.1 F Pulse Rate 109 H Respiratory Rate 21 Blood Pressure 86/53 L 98/60 90/59 L Pulse Oximetry 96 Oxygen Delivery Method 11/06/22 03:30 11/06/22 03:30 11/06/22 03:45 Temperature Pulse Rate 112 H Respiratory Rate 23 Blood Pressure 97/63 101/64 Pulse Oximetry 96 Oxygen Delivery Method 11/06/22 03:45 11/06/22 04:00 11/06/22 04:00 Temperature Pulse Rate 109 H 109 H Respiratory Rate 20 20 Blood Pressure 98/60 Pulse Oximetry 96 96 Oxygen Delivery Method 11/06/22 04:00 11/06/22 05:00 11/06/22 05:22 Temperature 98.1 F 98.1 F Pulse Rate Respiratory Rate Blood Pressure Pulse Oximetry Oxygen Delivery Method Mechanical Ventilation 11/06/22 04:15 11/06/22 04:15 11/06/22 04:30 Temperature Pulse Rate 108 H Respiratory Rate 21 Blood Pressure 100/57 L 90/60 Pulse Oximetry 96 Oxygen Delivery Method 11/06/22 04:30 11/06/22 04:45 11/06/22 04:45 Temperature Pulse Rate 105 H 105 H Respiratory Rate 20 20 Blood Pressure 92/62 Pulse Oximetry 96 96 Oxygen Delivery Method 11/06/22 05:00 11/06/22 05:00 11/06/22 05:15 Temperature Pulse Rate 105 H 104 H Respiratory Rate 20 20 Blood Pressure 86/59 L Pulse Oximetry 96 96 Oxygen Delivery Method 11/06/22 05:15 11/06/22 05:30 11/06/22 05:30 Temperature Pulse Rate 104 H Respiratory Rate 20 Blood Pressure 92/61 95/60 Pulse Oximetry 96 Oxygen Delivery Method 11/06/22 06:22 11/06/22 05:45 11/06/22 05:45 Temperature 98.0 F Pulse Rate 106 H Respiratory Rate 20 Blood Pressure 97/54 L 91/58 L Pulse Oximetry 96 Oxygen Delivery Method 11/06/22 06:00 11/06/22 06:00 11/06/22 06:15 Temperature Pulse Rate 106 H Respiratory Rate 20 Blood Pressure 92/58 L 87/54 L Pulse Oximetry 96 Oxygen Delivery Method 11/06/22 06:15 11/06/22 06:30 11/06/22 06:30 Temperature 98.0 F Pulse Rate 106 H 104 H Respiratory Rate 21 20 Blood Pressure 92/60 92/60 Pulse Oximetry 91 94 Oxygen Delivery Method 11/06/22 06:45 11/06/22 06:45 11/06/22 07:00 Temperature Pulse Rate 104 H 105 H Respiratory Rate 20 20 Blood Pressure 91/59 L Pulse Oximetry 95 92 Oxygen Delivery Method 11/06/22 07:01 11/06/22 07:01 11/06/22 07:15 Temperature Pulse Rate 105 H Respiratory Rate 20 Blood Pressure 86/58 L 88/60 L Pulse Oximetry 93 Oxygen Delivery Method 11/06/22 07:15 11/06/22 07:30 11/06/22 07:30 Temperature Pulse Rate 103 H 102 H Respiratory Rate 20 20 Blood Pressure 92/59 L Pulse Oximetry 95 95 Oxygen Delivery Method 11/06/22 07:45 11/06/22 07:45 11/06/22 08:00 Temperature Pulse Rate 103 H Respiratory Rate 20 Blood Pressure 86/60 L 88/60 L Pulse Oximetry 97 Oxygen Delivery Method 11/06/22 08:00 11/06/22 08:15 11/06/22 08:15 Temperature Pulse Rate 103 H 102 H Respiratory Rate 20 20 Blood Pressure 84/59 L Pulse Oximetry 97 97 Oxygen Delivery Method 11/06/22 08:30 11/06/22 08:30 11/06/22 08:45 Temperature Pulse Rate 102 H Respiratory Rate 20 Blood Pressure 85/59 L 81/57 L Pulse Oximetry 96 Oxygen Delivery Method 11/06/22 08:45 11/06/22 09:00 11/06/22 09:00 Temperature Pulse Rate 102 H 101 H Respiratory Rate 20 20 Blood Pressure 82/57 L Pulse Oximetry 97 97 Oxygen Delivery Method Fraction of Inspired Oxygen 94 Oxygen Delivery Method Mechanical Ventilation Oxygen Flow Rate 3 Narrative Exam Narrative: Patient seen through 2 way audiovisual system. Pt. appears with eyes closed, breathing comfortablyon vent Quality TeleICU VTE Deep Vein Thrombosis/Pulmonary Embolism Present on Admission: No Assessment & Plan Assessment & Plan narrative: Assessment Acute respiratory failure requiring intubation PNA (viral +/bacterial) ETOH withdawal Plan TRANSMISSION BUILDER: Restart patient's home gabapentin 300 mg TID and start Dex drip. Wean down Fentanyl and Propofol drip as tolerated. Goal is to get patient awake and calm. -continue Librium 50 mg QID CV: ECHO 11/04 showed EF is 40% +/- 5 with some diastolic dysfunction BP borderling line, if MAP < 65 will restart LEvophed drip. Hopefully BP will increase as sedation reduced Pulm: chest CTA 11/05 neg for PE but does show multifocal PNA -check ABG and adjust vent as needed -when pt. is awake and calm will do SBT ID: continue Zosyn and DOxy for now. Blood and sputum culture from admission neg. -repeat sputum culture HEme: hgb and platelets stable FEN/Renal: stable renal function -continue to diurese with lasix 40 mg BID -replace electrolytes as needed GI/nutrition: titrate up tube feeds as tolerated to goal Endo: monitor BG PPx: Lovenox Protonix Time Spent With Patient Critical Care time: I spent a total of [60] minutes of critical care time on this patient's care today; this time is exclusive of procedural time.
[2022-11-06] MEDS: THIAMINE 100 MG in SODIUM CHLORIDE 0.9% 100 ML 404 MG IV (10:36)
[2022-11-06] MEDS: GABAPENTIN 300 MG CAPSULE TUBE ×3 (10:37→20:46)
[2022-11-06 11:34] LABS: HCO3 ABG 32 mmol/L (22-26); PCO2 ABG 41.1 mmHg (35-45); PO2 ABG 72 mmHg (80-100); TCO2 ABG 34 mmol/L (21-31)
[2022-11-06 11:35] LABS: Fractionated Inspired Oxygen 30; Oxygen Saturation ABG 96 % (95-100)
[2022-11-06] MEDS: NOREPINEPHRINE BITARTRATE/D5W 4 MG/250 ML PLAST..BAG 7.5 MG IV (11:58)
[2022-11-06] MEDS: VANCOMYCIN 1,000 MG/200 ML PIGGYBACK 200 MG IV (12:57)
[2022-11-06] MEDS: ENOXAPARIN 40 MG/0.4 ML SYRINGE SUBCUT (12:58)
[2022-11-06] MEDS: propofoL 1,000 MG/100 ML VIAL 15.72 MG IV (12:59)
--- NOTE | 2022-11-06 14:55 | DIET.CONS2 ---
Dietary Inpatient Consultation Note Admission Date: 10/30/2022 20:22 Pt tolerating TF bumped up by nursing to 30mL/h this morning. Pt remains below goal rate but advancing on schedule with no signs refeeding syndrome at this time. K+ was replaced, Mg/phos/BG WNL. Recc continuing plan as written with medical team managing fluids r/t possible fluid overload status. Diet: 11/05/22 Dinner Tube Feeding Diet Diet Modifications: TF Supplement type: Glucerna 1.5 leroy TF mode of delivery: Continuous Starting flow rate mL/hr: 10 Flow rate goal mL/hr: 45 Titration Schedule to reach Goal Rate: increase by 10mL q8h as tolerated Max total daily volume in mL: 1,680 Free fluid: 100 Free Water Frequency: Q4H Comment: fluids to be managed by hospitalist/certified master locksmith 11/06/22 Breakfast Courtesy Sukhjinder (Peds, comfort care) Diet Modifications: Nutrition Type of Feeding Tube NG/OG 11/06/22 08:00 Type of Feeding Tube NG/OG 11/05/22 16:00 Type of Feeding Tube NG/OG 11/05/22 14:00 Electronically Signed by: Pati Parikh 11/06/22 14:55 Clinical Dietitian [address] [address]
[2022-11-06] MEDS: dexmedeTOMIDine in 0.9 % NaCL 400 MCG/100 ML PLAST..BAG IV (15:43)
[2022-11-06] MEDS: acetaZOLAMIDE 250 MG TABLET PO (18:19)
--- NOTE | 2022-11-06 18:50 | PC.NURSE ---
Day Shift Note Pt sedated on proprofol, fentanyl, and precedex. PT sedated to RASS of -3. Sedation vacation done this afternoon and pt opened eyes and was able to slowly follow simple commands and was calm. SR with PVCs, MAP decreasing this AM to 56-62 (see trends) and levophed started at 1200 at 2 mcg/min, currently at 4 mcg/min to keep MAP 65 or above. SpO2 stable at 95-97% on FiO2 of 35%, PEEP down to 6. Minimal secretions. Soft wrist restraints in place bilaterally due to pt's repeated impulsive reaching for lines. Turning q2 hr. Manley in place draining clear yellow urine. Tube feeds via OG at 40 ml/hr, tolerating well.
[2022-11-06] MEDS: propofoL 1,000 MG/100 ML VIAL 9.825 MG IV (19:47)
--- NOTE | 2022-11-06 20:29 | PM.ICURNDS ---
- Date Patient Seen: 11/06/22 Time Patient Seen: 20:29 :: This patient was seen via real time interactive two-way audiovisual telecommunication. Note: Patient seen with bedside RN during MDR. Patient is sedated but arouses. Current Prop 25, Fent 0.75, Prec 0.2. VS are WNL with Levophed going @ 4. Vent: 390, 18, 35%, 6. Vent adjusted earlier in the day and ABG reviewed by day team. TFs nearly at goal Lasix QD ordered for tomorrow. Hypokalemia replaced earlier in the day per RN Lovenox for VTE PPx Continues on Vanc, Zosyn Patient's mental status appears to be improving. Would continue to slowly wean down Propofol, increase Precedex. Avoid agitation, vent dysynchrony but move toward SAT/SBT Continue Levo as needed, suspect related to sedation. SBT in morning Titrate TFs up to goal. Continue gentle diuresis - perhaps net -500 cc, monitor lytes closely with repletion Please contact Tele-ICU with any change in status.
[2022-11-06 23:37] LABS: HEMOLYSIS < 15 (0-50)
[2022-11-06 23:46] LABS: Potassium 3.5 mmol/L (3.4-5.1)
[2022-11-07] VITALS (150 sets, daily range): BP systolic 79–154; BP diastolic 50–85; PULSE 82–115; RESP 17–36; TEMP 36.1–36.6; O2SAT 93–99
[2022-11-07] MEDS: CHLORHEXIDINE GLUCONATE 15 ML CUP PO ×4 (00:35→17:17)
[2022-11-07] MEDS: VANCOMYCIN 1,000 MG/200 ML PIGGYBACK 200 MG IV ×2 (00:35→13:11)
[2022-11-07] MEDS: chlordiazePOXIDE 25 MG CAPSULE 50 MG PO ×4 (00:36→17:14)
[2022-11-07] MEDS: POTASSIUM CHLORIDE IN WATER 10 MEQ/100 ML PIGGYBACK 100 MEQ IV ×4 (00:37→04:39)
[2022-11-07] MEDS: NOREPINEPHRINE BITARTRATE/D5W 4 MG/250 ML PLAST..BAG 26.25 MG IV (01:38)
[2022-11-07] MEDS: fentaNYL 1,000 MCG in DEXTROSE 5% IN WATER 230 ML 11.569 MCG IV (05:10)
[2022-11-07] MEDS: propofoL 1,000 MG/100 ML VIAL 9.825 MG IV (06:00)
[2022-11-07] MEDS: PIPERACILLIN/TAZO 3.375 GM in SODIUM CHLORIDE 0.9% 100 ML IV ×3 (06:01→20:41)
[2022-11-07 07:53] LABS: Add Manual Diff / Slide Review NO; Basophils Absolute Auto 200 /uL (0-100); Basophils Percent Auto 1.2 % (0-2); Eosinophils Absolute Auto 800 /uL (0-450); Eosinophils Percent Auto 6.1 % (2-4); Hematocrit 29.9 % (41-53); Hemoglobin 9.9 g/dL (13.5-17.5); Lymphocytes Absolute Auto 1500 /uL (1100-4500); Lymphocytes Percent Auto 11.7 % (25-40); Mean Corpuscular HGB Conc 33.1 % (30-36); Mean Corpuscular Hemoglobin 28.3 PG (26-34); Mean Corpuscular Volume 85.5 fL (80-100); Monocytes Absolute Auto 1300 /uL (0-900); Monocytes Percent Auto 9.9 % (3-14); Neutrophils Absolute Auto 9200 /uL (1500-7000); Neutrophils Percent Auto 71.1 % (50-75); Platelet Count 654 X10^3/uL (150-400); Red Cell Distribution Width 14.3 % (11.6-14.8); White Blood Cell Count 12.9 X10^3/uL (4.5-11.0)
[2022-11-07 08:08] LABS: Alanine Aminotransferase 13 IU/L (<50); Albumin 2.9 g/dL (3.5-5.0); Albumin Globulin Ratio 0.7 (1.0-2.8); Alkaline Phosphatase 128 U/L (38-126); Aspartate Aminotransferase 24 IU/L (17-59); BUN Creatinine Ratio 19.2 (6-22); Bilirubin Total 0.3 mg/dL (0.2-1.3); Blood Urea Nitrogen 14 mg/dL (9-20); Calcium 8.2 mg/dL (8.4-10.2); Carbon Dioxide 29 mmol/L (22-32); Chloride 101 mmol/L (98-107); Estimated Glomerular Filt Rate > 60 mL/min (>60); Globulin 4.2 g/dL (1.7-4.1); Glucose 112 mg/dL (80-110); HEMOLYSIS < 15 (0-50); Sodium 137 mmol/L (137-145); Total Protein 7.1 g/dL (6.3-8.2)
[2022-11-07] MEDS: NICOTINE 7 MG PATCH TOP (08:19)
[2022-11-07] MEDS: MULTIVITAMIN 1 TABLET 1 TAB PO (08:20)
[2022-11-07] MEDS: PANTOPRAZOLE 40 MG VIAL IV ×2 (08:20→20:42)
[2022-11-07] MEDS: GABAPENTIN 300 MG CAPSULE TUBE ×3 (08:20→20:42)
[2022-11-07] MEDS: ENOXAPARIN 40 MG/0.4 ML SYRINGE SUBCUT (08:20)
[2022-11-07] MEDS: THIAMINE 100 MG in SODIUM CHLORIDE 0.9% 100 ML 404 MG IV (08:20)
[2022-11-07] MEDS: FOLIC ACID 1 MG TABLET PO (08:20)
--- NOTE | 2022-11-07 09:04 | P.PN_ITS ---
Subjective Subjective Date Patient Seen: 11/07/22 Interval history: Intubated and sedated. Attempting to wean propofol and transition to precedex. Exam Vital Signs (past 8 hours): - 11/07/22 01:15 11/07/22 01:15 11/07/22 01:19 Pulse Rate 86 93 H Respiratory Rate 20 22 Blood Pressure 154/85 H Pulse Oximetry 98 99 Oxygen Delivery Method 11/07/22 01:19 11/07/22 01:30 11/07/22 01:30 Pulse Rate 83 Respiratory Rate 23 Blood Pressure 85/50 L 80/54 L Pulse Oximetry 96 Oxygen Delivery Method 11/07/22 01:45 11/07/22 01:45 11/07/22 02:00 Pulse Rate 85 Respiratory Rate 21 Blood Pressure 97/58 L 102/55 L Pulse Oximetry 98 Oxygen Delivery Method 11/07/22 02:00 11/07/22 02:15 11/07/22 02:15 Pulse Rate 87 90 Respiratory Rate 19 20 Blood Pressure 95/53 L Pulse Oximetry 98 98 Oxygen Delivery Method 11/07/22 02:30 11/07/22 02:30 11/07/22 02:45 Pulse Rate 92 H Respiratory Rate 20 Blood Pressure 96/60 102/59 L Pulse Oximetry 98 Oxygen Delivery Method 11/07/22 02:45 11/07/22 03:00 11/07/22 03:00 Pulse Rate 92 H 93 H Respiratory Rate 22 21 Blood Pressure 97/62 Pulse Oximetry 97 97 Oxygen Delivery Method 11/07/22 03:15 11/07/22 03:15 11/07/22 03:30 Pulse Rate 94 H Respiratory Rate 20 Blood Pressure 106/64 107/56 L Pulse Oximetry 97 Oxygen Delivery Method 11/07/22 03:30 11/07/22 03:45 11/07/22 03:45 Pulse Rate 94 H 93 H Respiratory Rate 19 22 Blood Pressure 96/54 L Pulse Oximetry 98 97 Oxygen Delivery Method 11/07/22 04:00 11/07/22 04:00 11/07/22 04:00 Pulse Rate 93 H Respiratory Rate 22 Blood Pressure 94/58 L Pulse Oximetry 98 Oxygen Delivery Method Mechanical Ventilation 11/07/22 04:15 11/07/22 04:15 11/07/22 04:30 Pulse Rate 93 H 93 H Respiratory Rate 23 21 Blood Pressure 94/59 L Pulse Oximetry 97 97 Oxygen Delivery Method 11/07/22 04:30 11/07/22 04:45 11/07/22 04:45 Pulse Rate 94 H Respiratory Rate 21 Blood Pressure 98/57 L 104/59 L Pulse Oximetry 97 Oxygen Delivery Method 11/07/22 05:00 11/07/22 05:00 11/07/22 05:15 Pulse Rate 94 H Respiratory Rate 21 Blood Pressure 102/58 L 99/59 L Pulse Oximetry 98 Oxygen Delivery Method 11/07/22 05:15 11/07/22 05:30 11/07/22 05:30 Pulse Rate 94 H 95 H Respiratory Rate 24 30 H Blood Pressure 106/64 Pulse Oximetry 97 94 Oxygen Delivery Method 11/07/22 05:45 11/07/22 05:45 11/07/22 06:00 Pulse Rate 94 H Respiratory Rate 25 H Blood Pressure 104/60 102/61 Pulse Oximetry 97 Oxygen Delivery Method 11/07/22 06:00 11/07/22 06:15 11/07/22 06:15 Pulse Rate 96 H 98 H Respiratory Rate 26 H 31 H Blood Pressure 109/71 Pulse Oximetry 93 93 Oxygen Delivery Method 11/07/22 06:30 11/07/22 06:30 11/07/22 06:45 Pulse Rate 97 H Respiratory Rate 27 H Blood Pressure 97/59 L 86/59 L Pulse Oximetry 94 Oxygen Delivery Method 11/07/22 06:45 11/07/22 07:00 11/07/22 07:00 Pulse Rate 97 H 96 H Respiratory Rate 25 H 26 H Blood Pressure 96/63 Pulse Oximetry 95 97 Oxygen Delivery Method 11/07/22 07:15 11/07/22 07:15 11/07/22 07:30 Pulse Rate 102 H Respiratory Rate 25 H Blood Pressure 103/63 102/64 Pulse Oximetry 99 Oxygen Delivery Method 11/07/22 07:30 11/07/22 07:46 11/07/22 07:46 Pulse Rate 100 H 103 H Respiratory Rate 28 H 34 H Blood Pressure 90/62 Pulse Oximetry 95 95 Oxygen Delivery Method 11/07/22 08:00 11/07/22 08:00 Pulse Rate 101 H Respiratory Rate 29 H Blood Pressure 94/67 Pulse Oximetry 95 Oxygen Delivery Method Fraction of Inspired Oxygen 94 Oxygen Delivery Method Mechanical Ventilation Oxygen Flow Rate 3 Narrative Exam Narrative: General: Intubated and sedated HEENT: Pupils equal and reactive, anicteric, poor dentition Lungs: Bilateral coarse crackles throughout Heart: Regular rhythm Abdomen: Nondistended but seems diffusely tender with patient grimacing on deep palpation Extremities: No cyanosis or edema Neurological: No focal deficits Skin: No rash or petechiae Objective Labs Result Diagrams: 11/07/22 07:46 11/07/22 07:46 Labs: Laboratory Results - last 24 hr 11/06/22 11/06/22 11/06/22 10:50 23:27 23:27 WBC RBC Hgb Hct MCV MCH MCHC RDW Plt Count Neut % (Auto) Lymph % (Auto) [place] % (Auto) Eos % (Auto) Baso % (Auto) Neut # (Auto) Lymph # (Auto) [place] # (Auto) Eos # (Auto) Baso # (Auto) ABG pH 7.50 H ABG pCO2 41.1 ABG pO2 72 L ABG HCO3 32 H ABG Total CO2 34 H ABG O2 Saturation 96 ABG Base Excess 9.0 H FiO2 30 Sodium Potassium 3.5 Chloride Carbon Dioxide BUN Creatinine Estimated GFR BUN/Creatinine Ratio Glucose Calcium Magnesium 2.0 Total Bilirubin AST ALT Alkaline Phosphatase Total Protein Albumin Globulin Albumin/Globulin Ratio 11/07/22 11/07/22 07:46 07:46 WBC 12.9 H RBC 3.50 L Hgb 9.9 L Hct 29.9 L MCV 85.5 MCH 28.3 MCHC 33.1 RDW 14.3 Plt Count 654 H Neut % (Auto) 71.1 Lymph % (Auto) 11.7 L [place] % (Auto) 9.9 Eos % (Auto) 6.1 H Baso % (Auto) 1.2 Neut # (Auto) 9200 H Lymph # (Auto) 1500 [place] # (Auto) 1300 H Eos # (Auto) 800 H Baso # (Auto) 200 H ABG pH ABG pCO2 ABG pO2 ABG HCO3 ABG Total CO2 ABG O2 Saturation ABG Base Excess FiO2 Sodium 137 Potassium 4.0 Chloride 101 Carbon Dioxide 29 BUN 14 Creatinine 0.73 Estimated GFR > 60 BUN/Creatinine Ratio 19.2 Glucose 112 H Calcium 8.2 L Magnesium Total Bilirubin 0.3 AST 24 ALT 13 Alkaline Phosphatase 128 H Total Protein 7.1 Albumin 2.9 L Globulin 4.2 H Albumin/Globulin Ratio 0.7 L PFSH Medical History Acid reflux Alcohol abuse Ankle pain Ankylosing spondylitis (1985) Ankylosing spondylitis Chronic back pain Foot pain Fracture cervical vertebra-closed GERD (gastroesophageal reflux disease) Hypertension Hypertension Muscle pain Tobacco use disorder, moderate, in early remission Surgical History History of open reduction and internal fixation (ORIF) procedure (2005) History of tonsillectomy Status post colonoscopy (2012) Status post incision and drainage Family History Father No problems noted. Mother Cancer Other Alcoholism Colorectal cancer Social History Smoking Status: Current every day smoker Assessment & Plan Assessment & Plan narrative: 1. Acute hypoxic respiratory failure Patient extubated this 11/04 after partial self-extubation. Then needed reintubation overnight on 11/05 due to worsening hypoxia and agitation. Patient remains on Zosyn for pneumonia with doxy for MRSA coverage. Completed a course of azithromycin. CTPA 11/05 negative for PE but worsening multifocal PNA. 2. Bilateral bacterial pneumonia [place] to be superinfection in the setting of influenza A.? As noted, he remains on Zosyn and doxy due to positive MRSA swab screen. Consider 10-14 day course. 3. Influenza A Continuing supportive care. 4. Alcohol and herion dependence with withdrawal Patient is presently on a Precedex drip.? He is also receiving Librium. Continue thiamine, MV and folate. 5. Stress cardiomyopathy Echo with EF 40% and mid LV segment hypokinesis/akinesis suspicious for stress cardiomyopathy. Troponin up to 0.165 then downtrended to 0.155. PE ruled out. Heparin drip stopped. 6. Possible septic shock with acute end-organ failure Patient presented with pneumonia, lactic acidosis, leukocytosis, tachycardia, and hypoxia.? He has been on IV fluids.? Overall, sepsis physiology has resolved. 7. Acute metabolic encephalopathy Likely multifactorial from infection, sepsis, alcohol withdrawal. Will be difficult to wean sedation and extubate so may be ongoing. 8. Essential hypertension On metoprolol on an outpatient basis.? This has been held in the setting of sepsis. 9. Protein calorie malnutrition Tube feeds initiated yesterday at 10 cc/hour. Now that he is extubated, those have been discontinued. Await for speech therapy to clear him for a diet. 10. Normocytic anemia Hemoglobin is stable at 10.1. 11. Hypokalemia continue to replete per pharmacy. Code status Full Prophylaxis Lovenox Disposition ICU I spent a total of 35 minutes of critical care time on this patient's care today; this time is exclusive of procedural time. Time Spent With Patient Critical Care time: I spent a total of [] minutes of critical care time on this patient's care today; this time is exclusive of procedural time. Quality VTE Deep Vein Thrombosis/Pulmonary Embolism Present on Admission: No
--- NOTE | 2022-11-07 09:27 | P.TELICUPN_ITS ---
Subjective Subjective IF CAMERA ACTIVATED, patient seen via real-time interactive audiovisual communication: Camera activated Consent obtained for tele-academic administrator care: Yes Patient Location: ICU Provider location (State): [place] Other participants/roles: RN, hospitalist Interval history: Patient Summary: 61 yo M with PMH of HTN, ETOH abyse, and ankylosing spondylitis, who was recently had flu then admitted 10/30/22 with PNA and acute respiratory failuring requiring intubation 10/31/22. 11/04: Patient extubated. ECHO showed EF is 40% 11/05: patient reintubated for agitation and acute respiratory failure (pt. unable to manage secretions) about 12 hours after extubation. Chest CTA neg for PE (just shows multilobar PNA) 11/06: Added precedex and resumed home gabapentin. Weaning down propofol and fentanyl drip. Levophed drip started for BP support. Recent events: Pt. weaned off Dex yesterday Current drips: Propofol 20 mcg/kg/min Fentanyl 0.75 mcg/kg/hr Levophed 6 mcg/min Current vent settings R 18 VT 390 PEEP 6 FIO2 30% Current Medications Current Medications Medications: Home Medications ketorolac 0.4 % eye drops 1 drp OPHTH QID #5 mL 06/20/17 [Rx Confirmed 10/13/18] indomethacin 50 mg capsule 50 mg PO TIDP PRN pain, moderate #90 caps 10/13/18 [Rx] amitriptyline 25 mg tablet 25 mg PO BEDTIME #30 tabs 01/07/19 [Rx] ondansetron 4 mg disintegrating tablet 4 mg PO TID-QID PRN nausea and vomiting #10 tabs 02/24/19 [Rx] cyclobenzaprine 10 mg tablet 10 mg PO TIDP #90 tabs 11/19/19 [Rx] gabapentin 300 mg capsule (Neurontin) 300 mg PO Q8H #90 caps 11/19/19 [Rx] metoprolol succinate 50 mg tablet,extended release 24 hr (Toprol XL) 50 mg PO BID #60 tabs 11/19/19 [Rx] omeprazole 20 mg capsule,delayed release 20 mg PO QDAY #30 caps 11/19/19 [Rx] doxycycline hyclate 100 mg capsule 100 mg PO BID #14 caps 05/03/22 [Rx] Visit Medications (administered) Generic Name Dose Route Start Last Admin Trade Name Freq PRN Reason Stop Dose Admin Chlordiazepoxide HCl 50 mg 11/04/22 12:00 11/07/22 06:00 Chlordiazepoxide 25 Mg Capsule PO 50 mg Q6HR JYOTI Administration Chlorhexidine Gluconate 15 ml 10/31/22 18:00 11/07/22 06:02 Chlorhexidine Gluconate 15 Ml Cup PO 15 ml Q6HR JYOTI Administration Enoxaparin Sodium 40 mg 11/06/22 12:00 11/07/22 08:20 Enoxaparin 40 Mg/0.4 Ml Syringe SUBCUT 40 mg DAILY JYOTI Administration Folic Acid 1 mg 10/31/22 09:00 11/07/22 08:20 Folic Acid 1 Mg Tablet PO 1 mg DAILY JYOTI Administration Gabapentin 300 mg 11/06/22 09:45 11/07/22 08:20 Gabapentin 300 Mg Capsule TUBE 300 mg TID JYOTI Administration Haloperidol 5 mg 11/04/22 09:36 11/04/22 10:18 Haloperidol 5 Mg/Ml Vial IV 5 mg Q2HR PRN Administration Agitation Thiamine HCl 100 mg/ Sodium 101 mls @ 404 mls/hr 10/31/22 09:30 11/07/22 08:20 Chloride IV 404 mls/hr DAILY JYOTI Administration Piperacillin Sod/Tazobactam 100 mls @ 25 mls/hr 10/31/22 12:45 11/07/22 06:01 Sod 3.375 gm/ Sodium Chloride IV 25 mls/hr Q8H JYOTI Administration Sodium Chloride 500 mls @ 1,000 mls/hr 10/31/22 14:03 10/31/22 18:19 Normal Saline 0.9% IV Infused BOLUS PRN Infusion Fluid replacement Propofol 1,000 mg in 100 mls @ 1.965 mls/hr 10/31/22 14:15 11/07/22 06:00 Propofol IV 25 mcg/kg/min TITRATE JYOTI 9.825 mls/hr Administration Protocol 5 MCG/KG/MIN Fentanyl 1,000 mcg/ Dextrose 250 mls @ 10.798 mls/hr 11/04/22 22:45 11/07/22 05:10 IV 0.75 mcg/kg/hr TITRATE JYOTI 11.569 mls/hr Administration Protocol 0.7 MCG/KG/HR NOREPINEPHRINE BITARTRATE/D5W 4 mg in 250 mls @ 30 mls/hr 11/04/22 22:51 11/07/22 01:38 Levophed IV 7 mcg/min TITRATE JYOTI 26.25 mls/hr Administration Protocol 8 MCG/MIN dexmedeTOMIDine in 0.9 % NaCL 400 mcg in 100 mls @ 2.875 mls/hr 11/06/22 10:15 11/07/22 07:00 Precedex IV 0 mcg/kg/hr TITRATE JYOTI 0 mls/hr Titration Protocol 0.2 MCG/KG/HR Vancomycin HCl 1,000 mg in 200 mls @ 200 mls/hr 11/06/22 12:00 11/07/22 07:00 Vancomycin IV Infused Q12H JYOTI Infusion Lorazepam 0 mg 10/31/22 00:42 11/04/22 14:03 Lorazepam 2 Mg/Ml Inj IV 2 mg CIWAPRN PRN Administration Alcohol Withdrawal/n/V Protocol Lorazepam 1 mg 11/04/22 09:37 11/04/22 15:20 Lorazepam 2 Mg/Ml Inj IV 1 mg Q2HR PRN Administration Anxiety Morphine Sulfate 1 mg 11/04/22 09:38 11/04/22 13:36 Morphine 2 Mg/Ml Inj IV 1 mg Q2HR PRN Administration Pain, Moderate (4-6) Multivitamins 1 tab 10/31/22 09:00 11/07/22 08:20 Multivitamin 1 Tablet PO 1 tab DAILY JYOTI Administration Nicotine 7 mg 10/31/22 09:00 11/07/22 08:19 Nicotine 7 Mg Patch TOP 7 mg DAILY JYOTI Administration Ondansetron HCl 4 mg 10/31/22 01:07 11/04/22 12:41 Ondansetron 4 Mg/2 Ml Inj IV 4 mg Q4HR PRN Administration Nausea And Vomiting Pantoprazole Sodium 40 mg 10/31/22 21:00 11/07/22 08:20 Pantoprazole 40 Mg Vial IV 40 mg BID JYOTI Administration Objective Ventilator Parameters: Ventilator Settings FiO2 35 RT Vent Frequency 18 Ventilator Tidal Volume 390 Exhaled Vt/kg IBW 5.8 Positive End Expiratory 6 Pressure Inspiratory Phase Time 0.85 I:E Ratio 1:1.2 Patient Position HOB >= 30 degrees Labs Result Diagrams: 11/07/22 07:46 11/07/22 07:46 Labs: Laboratory Results - last 24 hr 11/06/22 11/06/22 11/06/22 10:50 23:27 23:27 WBC RBC Hgb Hct MCV MCH MCHC RDW Plt Count Neut % (Auto) Lymph % (Auto) [place] % (Auto) Eos % (Auto) Baso % (Auto) Neut # (Auto) Lymph # (Auto) [place] # (Auto) Eos # (Auto) Baso # (Auto) ABG pH 7.50 H ABG pCO2 41.1 ABG pO2 72 L ABG HCO3 32 H ABG Total CO2 34 H ABG O2 Saturation 96 ABG Base Excess 9.0 H FiO2 30 Sodium Potassium 3.5 Chloride Carbon Dioxide BUN Creatinine Estimated GFR BUN/Creatinine Ratio Glucose Calcium Magnesium 2.0 Total Bilirubin AST ALT Alkaline Phosphatase Total Protein Albumin Globulin Albumin/Globulin Ratio 11/07/22 11/07/22 07:46 07:46 WBC 12.9 H RBC 3.50 L Hgb 9.9 L Hct 29.9 L MCV 85.5 MCH 28.3 MCHC 33.1 RDW 14.3 Plt Count 654 H Neut % (Auto) 71.1 Lymph % (Auto) 11.7 L [place] % (Auto) 9.9 Eos % (Auto) 6.1 H Baso % (Auto) 1.2 Neut # (Auto) 9200 H Lymph # (Auto) 1500 [place] # (Auto) 1300 H Eos # (Auto) 800 H Baso # (Auto) 200 H ABG pH ABG pCO2 ABG pO2 ABG HCO3 ABG Total CO2 ABG O2 Saturation ABG Base Excess FiO2 Sodium 137 Potassium 4.0 Chloride 101 Carbon Dioxide 29 BUN 14 Creatinine 0.73 Estimated GFR > 60 BUN/Creatinine Ratio 19.2 Glucose 112 H Calcium 8.2 L Magnesium Total Bilirubin 0.3 AST 24 ALT 13 Alkaline Phosphatase 128 H Total Protein 7.1 Albumin 2.9 L Globulin 4.2 H Albumin/Globulin Ratio 0.7 L Exam Vital Signs (past 8 hours): - 11/07/22 01:30 11/07/22 01:30 11/07/22 01:45 Pulse Rate 83 Respiratory Rate 23 Blood Pressure 80/54 L 97/58 L Pulse Oximetry 96 Oxygen Delivery Method 11/07/22 01:45 11/07/22 02:00 11/07/22 02:00 Pulse Rate 85 87 Respiratory Rate 21 19 Blood Pressure 102/55 L Pulse Oximetry 98 98 Oxygen Delivery Method 11/07/22 02:15 11/07/22 02:15 11/07/22 02:30 Pulse Rate 90 Respiratory Rate 20 Blood Pressure 95/53 L 96/60 Pulse Oximetry 98 Oxygen Delivery Method 11/07/22 02:30 11/07/22 02:45 11/07/22 02:45 Pulse Rate 92 H 92 H Respiratory Rate 20 22 Blood Pressure 102/59 L Pulse Oximetry 98 97 Oxygen Delivery Method 11/07/22 03:00 11/07/22 03:00 11/07/22 03:15 Pulse Rate 93 H 94 H Respiratory Rate 21 20 Blood Pressure 97/62 Pulse Oximetry 97 97 Oxygen Delivery Method 11/07/22 03:15 11/07/22 03:30 11/07/22 03:30 Pulse Rate 94 H Respiratory Rate 19 Blood Pressure 106/64 107/56 L Pulse Oximetry 98 Oxygen Delivery Method 11/07/22 03:45 11/07/22 03:45 11/07/22 04:00 Pulse Rate 93 H Respiratory Rate 22 Blood Pressure 96/54 L 94/58 L Pulse Oximetry 97 Oxygen Delivery Method 11/07/22 04:00 11/07/22 04:00 11/07/22 04:15 Pulse Rate 93 H Respiratory Rate 22 Blood Pressure 94/59 L Pulse Oximetry 98 Oxygen Delivery Method Mechanical Ventilation 11/07/22 04:15 11/07/22 04:30 11/07/22 04:30 Pulse Rate 93 H 93 H Respiratory Rate 23 21 Blood Pressure 98/57 L Pulse Oximetry 97 97 Oxygen Delivery Method 11/07/22 04:45 11/07/22 04:45 11/07/22 05:00 Pulse Rate 94 H Respiratory Rate 21 Blood Pressure 104/59 L 102/58 L Pulse Oximetry 97 Oxygen Delivery Method 11/07/22 05:00 11/07/22 05:15 11/07/22 05:15 Pulse Rate 94 H 94 H Respiratory Rate 21 24 Blood Pressure 99/59 L Pulse Oximetry 98 97 Oxygen Delivery Method 11/07/22 05:30 11/07/22 05:30 11/07/22 05:45 Pulse Rate 95 H Respiratory Rate 30 H Blood Pressure 106/64 104/60 Pulse Oximetry 94 Oxygen Delivery Method 11/07/22 05:45 11/07/22 06:00 11/07/22 06:00 Pulse Rate 94 H 96 H Respiratory Rate 25 H 26 H Blood Pressure 102/61 Pulse Oximetry 97 93 Oxygen Delivery Method 11/07/22 06:15 11/07/22 06:15 11/07/22 06:30 Pulse Rate 98 H Respiratory Rate 31 H Blood Pressure 109/71 97/59 L Pulse Oximetry 93 Oxygen Delivery Method 11/07/22 06:30 11/07/22 06:45 11/07/22 06:45 Pulse Rate 97 H 97 H Respiratory Rate 27 H 25 H Blood Pressure 86/59 L Pulse Oximetry 94 95 Oxygen Delivery Method 11/07/22 07:00 11/07/22 07:00 11/07/22 07:15 Pulse Rate 96 H Respiratory Rate 26 H Blood Pressure 96/63 103/63 Pulse Oximetry 97 Oxygen Delivery Method 11/07/22 07:15 11/07/22 07:30 11/07/22 07:30 Pulse Rate 102 H 100 H Respiratory Rate 25 H 28 H Blood Pressure 102/64 Pulse Oximetry 99 95 Oxygen Delivery Method 11/07/22 07:46 11/07/22 07:46 11/07/22 08:00 Pulse Rate 103 H Respiratory Rate 34 H Blood Pressure 90/62 94/67 Pulse Oximetry 95 Oxygen Delivery Method 11/07/22 08:00 11/07/22 08:00 11/07/22 08:10 Pulse Rate 101 H 100 H Respiratory Rate 29 H 31 H Blood Pressure Pulse Oximetry 95 96 Oxygen Delivery Method Mechanical Ventilation 11/07/22 08:15 11/07/22 08:15 11/07/22 08:20 Pulse Rate 100 H 100 H Respiratory Rate 29 H 29 H Blood Pressure 101/60 Pulse Oximetry 95 95 Oxygen Delivery Method 11/07/22 08:30 11/07/22 08:30 11/07/22 08:40 Pulse Rate 99 H 101 H Respiratory Rate 28 H 32 H Blood Pressure 98/68 Pulse Oximetry 95 95 Oxygen Delivery Method 11/07/22 08:45 11/07/22 08:45 11/07/22 08:50 Pulse Rate 100 H 100 H Respiratory Rate 25 H 29 H Blood Pressure 110/67 Pulse Oximetry 95 95 Oxygen Delivery Method 11/07/22 09:00 11/07/22 09:00 11/07/22 09:10 Pulse Rate 107 H 109 H Respiratory Rate 34 H 33 H Blood Pressure 109/70 Pulse Oximetry 94 94 Oxygen Delivery Method 11/07/22 09:15 11/07/22 09:15 Pulse Rate 111 H Respiratory Rate 36 H Blood Pressure 114/81 Pulse Oximetry 93 Oxygen Delivery Method Fraction of Inspired Oxygen 94 Oxygen Delivery Method Mechanical Ventilation Oxygen Flow Rate 3 Narrative Exam Narrative: Patient seen through 2 way audio visual system. 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 is awake and calm will do SBT ID: continue Zosyn and DOxy for now.? Blood and sputum culture so far neg. HEme: hgb and platelets stable FEN/Renal: stable renal function -continue to diurese with lasix 40 mg QD -diamox prn metabolic alkalosis -replace electrolytes as needed GI/nutrition: tube feeds as tolerated Endo: monitor BG PPx: Lovenox Protonix Time Spent With Patient Critical Care time: I spent a total of [55] minutes of critical care time on this patient's care today; this time is exclusive of procedural time.
[2022-11-07] MEDS: acetaZOLAMIDE 250 MG TABLET PO ×2 (10:52→20:42)
--- NOTE | 2022-11-07 11:53 | PC.NURSE ---
Morning rounds with Dr Hubbard--restart Precedex and titrate down propofol with a goal of awake alert and calm. Precedex initiated and propofol decreased per JAN. Pt awakens to verbal without sustained eye contact. Not following commands at this time. Vent settings unchanged and appears comfortable and tolerating well.
--- NOTE | 2022-11-07 12:26 | DIET.CONS2 ---
Dietary Inpatient Consultation Note Admission Date: 10/30/2022 20:22 Pt tolerating TF running at goal rate without issue. Continue TF until pt extubated. Pt likely to need soft diet once extubated r/t expected throat discomfort. Diet: 11/05/22 Dinner Tube Feeding Diet Diet Modifications: TF Supplement type: Glucerna 1.5 leroy TF mode of delivery: Continuous Starting flow rate mL/hr: 10 Flow rate goal mL/hr: 45 Titration Schedule to reach Goal Rate: increase by 10mL q8h as tolerated Max total daily volume in mL: 1,680 Free fluid: 100 Free Water Frequency: Q4H Comment: fluids to be managed by hospitalist/physician scribe 11/06/22 Breakfast Courtesy Tray (Peds, comfort care) Diet Modifications: Nutrition Type of Feeding Tube NG/OG 11/06/22 17:18 Type of Feeding Tube NG/OG 11/06/22 12:00 Type of Feeding Tube NG/OG 11/06/22 08:00 Type of Feeding Tube NG/OG 11/05/22 16:00 Type of Feeding Tube NG/OG 11/05/22 14:00 Electronically Signed by: Pati Parikh 11/07/22 12:26 [address] [id number]
[2022-11-07] MEDS: NOREPINEPHRINE BITARTRATE/D5W 4 MG/250 ML PLAST..BAG 15 MG IV (14:22)
--- NOTE | 2022-11-07 14:24 | CM.DPC ---
DCP Cont: Per MD, pt remains re-intubated after failing initial extubation and remains sedated at this time. Per Conference Assistant, pt seems to be tolerating tube feeds while intubated with plan to wean after pt extubated. Plan: SW to follow closely for attempts at weaning and sedation vacation towards eventual extubation and then to have further conversation with pt regarding ETOH resources and supports and pt has large local family support. [facility] previously provided and discussed with family as pt has not been able to participate in goal directed discussion yet. Blanca Colby MSW
[2022-11-07] MEDS: propofoL 1,000 MG/100 ML VIAL 1.965 MG IV (17:29)
[2022-11-07] MEDS: dexmedeTOMIDine in 0.9 % NaCL 400 MCG/100 ML PLAST..BAG 5.75 MCG IV (17:30)
--- NOTE | 2022-11-07 17:42 | PC.NURSE ---
No significant assessment changes throughout shift. Titrated propofol off. Precedex infusing per plan with Dr Oakes at 0.4mg/kg/hr. Levophed still needed at 4mcg/min. Fentanyl continues at 0.75mcg/kg/hr. BP 98/65 and consistent throughout shift. No vent changes. 390/30%/18/6. Pt breathing over vent at 28-33RR. Pt RASS continues to be -2-3 despite no minimal sedation. Pt opens eyes intermittently/spontaneously however unable to follow commands. Adequate urinary output, no BM today. Continues tube feeds at goal of 45ml\hr. 100ml residual noted and reinfused. Has friend at bedside. NAD.
[2022-11-07 18:07] LABS: HCO3 ABG 28 mmol/L (22-26); Oxygen Saturation ABG 96 % (95-100); PCO2 ABG 42.5 mmHg (35-45); PO2 ABG 82 mmHg (80-100); TCO2 ABG 29 mmol/L (21-31); pH ABG 7.42 (7.35-7.45)
[2022-11-07 18:08] LABS: Fractionated Inspired Oxygen 35
--- NOTE | 2022-11-07 20:31 | PM.ICURNDS ---
- Date Patient Seen: 11/07/22 Time Patient Seen: 20:31 :: This patient was seen via real time interactive two-way audiovisual telecommunication. Note: Patient seen with bedside RN during MDR. Patient is intermittently arousable. Current Prop 10, Fent 0.75, Prec 0.4. On Librium, Gabapentin. Mental status improving. VS are WNL. Levophed going @ 4. Vent: 390, 18, 30%, 6 TFs at goal. PPI. Lasix QD ordered, also Diamox. Lytes trending. Lovenox for VTE PPx Continues on Zosyn, Doxy N: Wean off Propofol, have room on Precedex. SAT in morning. C: Continue Levo. IF patient still with pressor requirement off sedation, would consider holding additional diuresis P: If fails SAT, consider transitioning to Pressure Support mode in lieu of ongoing AC/VC. GI: Continue TFs, PPI R: As above, goal gently negative. If continued/uptrending pressor requirements may hold diuresis. H: Lovenox. Hgb trending ID: Zosyn, Doxy E: BGs trending Please contact Tele-ICU with any change in status.
[2022-11-07] MEDS: VANCOMYCIN TROUGH 1 REQUEST MISC (23:00)
[2022-11-08] VITALS (173 sets, daily range): BP systolic 79–110; BP diastolic 54–74; PULSE 74–101; RESP 16–30; TEMP 36.2–37; O2SAT 90–100
[2022-11-08 00:34] LABS: Vancomycin Trough 16.8 ug/mL (10-20)
[2022-11-08] MEDS: chlordiazePOXIDE 25 MG CAPSULE 50 MG PO ×4 (00:34→23:43)
[2022-11-08] MEDS: CHLORHEXIDINE GLUCONATE 15 ML CUP PO ×4 (00:34→23:43)
[2022-11-08] MEDS: VANCOMYCIN 1,000 MG/200 ML PIGGYBACK 200 MG IV (00:45)
[2022-11-08 03:14] LABS: Vancomycin Peak 37.8 ug/mL (20-40)
[2022-11-08] MEDS: NOREPINEPHRINE BITARTRATE/D5W 4 MG/250 ML PLAST..BAG 16.875 MG IV (04:40)
[2022-11-08] MEDS: fentaNYL 1,000 MCG in DEXTROSE 5% IN WATER 230 ML 11.569 MCG IV (04:44)
[2022-11-08] MEDS: PIPERACILLIN/TAZO 3.375 GM in SODIUM CHLORIDE 0.9% 100 ML IV ×3 (05:38→21:12)
[2022-11-08 06:57] LABS: Alanine Aminotransferase 13 IU/L (<50); Albumin 3.1 g/dL (3.5-5.0); Albumin Globulin Ratio 0.7 (1.0-2.8); Alkaline Phosphatase 126 U/L (38-126); Aspartate Aminotransferase 22 IU/L (17-59); BUN Creatinine Ratio 21.3 (6-22); Bilirubin Total 0.2 mg/dL (0.2-1.3); Blood Urea Nitrogen 16 mg/dL (9-20); Calcium 8.6 mg/dL (8.4-10.2); Carbon Dioxide 28 mmol/L (22-32); Chloride 100 mmol/L (98-107); Estimated Glomerular Filt Rate > 60 mL/min (>60); Globulin 4.2 g/dL (1.7-4.1); Glucose 112 mg/dL (80-110); HEMOLYSIS < 15 (0-50); Potassium 3.7 mmol/L (3.4-5.1); Sodium 137 mmol/L (137-145); Total Protein 7.3 g/dL (6.3-8.2)
[2022-11-08 06:59] LABS: Add Manual Diff / Slide Review NO; Basophils Absolute Auto 100 /uL (0-100); Basophils Percent Auto 1.3 % (0-2); Eosinophils Absolute Auto 1000 /uL (0-450); Eosinophils Percent Auto 8.8 % (2-4); Hematocrit 29.5 % (41-53); Hemoglobin 9.8 g/dL (13.5-17.5); Lymphocytes Absolute Auto 1700 /uL (1100-4500); Lymphocytes Percent Auto 14.9 % (25-40); Mean Corpuscular HGB Conc 33.4 % (30-36); Mean Corpuscular Hemoglobin 28.6 PG (26-34); Mean Corpuscular Volume 85.8 fL (80-100); Monocytes Absolute Auto 1200 /uL (0-900); Monocytes Percent Auto 10.2 % (3-14); Neutrophils Absolute Auto 7300 /uL (1500-7000); Neutrophils Percent Auto 64.8 % (50-75); Platelet Count 655 X10^3/uL (150-400); Red Blood Cell Count 3.43 X10^6/uL (4.5-5.9); Red Cell Distribution Width 14.3 % (11.6-14.8); White Blood Cell Count 11.2 X10^3/uL (4.5-11.0)
[2022-11-08] MEDS: dexmedeTOMIDine in 0.9 % NaCL 400 MCG/100 ML PLAST..BAG 5.75 MCG IV (08:30)
[2022-11-08] MEDS: FUROSEMIDE 40 MG/4 ML VIAL IV (08:54)
[2022-11-08] MEDS: ENOXAPARIN 40 MG/0.4 ML SYRINGE SUBCUT (08:54)
[2022-11-08] MEDS: PANTOPRAZOLE 40 MG VIAL IV ×2 (08:54→21:12)
[2022-11-08] MEDS: MULTIVITAMIN 1 TABLET 1 TAB PO (08:55)
[2022-11-08] MEDS: GABAPENTIN 300 MG CAPSULE TUBE ×3 (08:55→21:12)
[2022-11-08] MEDS: FOLIC ACID 1 MG TABLET PO (08:55)
--- NOTE | 2022-11-08 09:21 | PM.PN.EICU ---
Subjective Subjective IF CAMERA ACTIVATED, patient seen via real-time interactive audiovisual communication: Camera activated Consent obtained for tele-design specialist care: Yes Patient Location: ICU Provider location (State): Other participants/roles: RN Current Medications Current Medications Medications: Home Medications ketorolac 0.4 % eye drops 1 drp OPHTH QID #5 mL 06/20/17 [Rx Confirmed 10/13/18] indomethacin 50 mg capsule 50 mg PO TIDP PRN pain, moderate #90 caps 10/13/18 [Rx] amitriptyline 25 mg tablet 25 mg PO BEDTIME #30 tabs 01/07/19 [Rx] ondansetron 4 mg disintegrating tablet 4 mg PO TID-QID PRN nausea and vomiting #10 tabs 02/24/19 [Rx] cyclobenzaprine 10 mg tablet 10 mg PO TIDP #90 tabs 11/19/19 [Rx] gabapentin 300 mg capsule (Neurontin) 300 mg PO Q8H #90 caps 11/19/19 [Rx] metoprolol succinate 50 mg tablet,extended release 24 hr (Toprol XL) 50 mg PO BID #60 tabs 11/19/19 [Rx] omeprazole 20 mg capsule,delayed release 20 mg PO QDAY #30 caps 11/19/19 [Rx] doxycycline hyclate 100 mg capsule 100 mg PO BID #14 caps 05/03/22 [Rx] Visit Medications (administered) Generic Name Dose Route Start Last Admin Trade Name Freq PRN Reason Stop Dose Admin Chlordiazepoxide HCl 50 mg 11/04/22 12:00 11/08/22 08:34 Chlordiazepoxide 25 Mg Capsule PO Not Given Q6HR JYOTI Chlorhexidine Gluconate 15 ml 10/31/22 18:00 11/08/22 08:34 Chlorhexidine Gluconate 15 Ml Cup PO Not Given Q6HR JYOTI Enoxaparin Sodium 40 mg 11/06/22 12:00 11/08/22 08:54 Enoxaparin 40 Mg/0.4 Ml Syringe SUBCUT 40 mg DAILY JYOTI Administration Folic Acid 1 mg 10/31/22 09:00 11/08/22 08:55 Folic Acid 1 Mg Tablet PO 1 mg DAILY JYOTI Administration Furosemide 40 mg 11/07/22 09:00 11/08/22 08:54 Furosemide 40 Mg/4 Ml Vial IV 40 mg DAILY JYOTI Administration Gabapentin 300 mg 11/06/22 09:45 11/08/22 08:55 Gabapentin 300 Mg Capsule TUBE 300 mg TID JYOTI Administration Haloperidol 5 mg 11/04/22 09:36 11/04/22 10:18 Haloperidol 5 Mg/Ml Vial IV 5 mg Q2HR PRN Administration Agitation Thiamine HCl 100 mg/ Sodium 101 mls @ 404 mls/hr 10/31/22 09:30 11/07/22 08:35 Chloride IV Infused DAILY JYOTI Infusion Piperacillin Sod/Tazobactam 100 mls @ 25 mls/hr 10/31/22 12:45 11/08/22 05:38 Sod 3.375 gm/ Sodium Chloride IV 25 mls/hr Q8H JYOTI Administration Sodium Chloride 500 mls @ 1,000 mls/hr 10/31/22 14:03 10/31/22 18:19 Normal Saline 0.9% IV Infused BOLUS PRN Infusion Fluid replacement Propofol 1,000 mg in 100 mls @ 1.965 mls/hr 10/31/22 14:15 11/07/22 19:17 Propofol IV 10 mcg/kg/min TITRATE JYOTI 3.93 mls/hr Titration Protocol 5 MCG/KG/MIN Fentanyl 1,000 mcg/ Dextrose 250 mls @ 10.798 mls/hr 11/04/22 22:45 11/08/22 04:44 IV 0.75 mcg/kg/hr TITRATE JYOTI 11.569 mls/hr Administration Protocol 0.7 MCG/KG/HR NOREPINEPHRINE BITARTRATE/D5W 4 mg in 250 mls @ 30 mls/hr 11/04/22 22:51 11/08/22 06:16 Levophed IV 5 mcg/min TITRATE JYOTI 18.75 mls/hr Titration Protocol 8 MCG/MIN dexmedeTOMIDine in 0.9 % NaCL 400 mcg in 100 mls @ 2.875 mls/hr 11/06/22 10:15 11/08/22 08:30 Precedex IV 0.4 mcg/kg/hr TITRATE JYOTI 5.75 mls/hr Administration Protocol 0.2 MCG/KG/HR Vancomycin HCl 1,000 mg in 200 mls @ 200 mls/hr 11/06/22 12:00 11/08/22 05:38 Vancomycin IV Infused Q12H JYOTI Infusion Lorazepam 0 mg 10/31/22 00:42 11/04/22 14:03 Lorazepam 2 Mg/Ml Inj IV 2 mg CIWAPRN PRN Administration Alcohol Withdrawal/n/V Protocol Lorazepam 1 mg 11/04/22 09:37 11/04/22 15:20 Lorazepam 2 Mg/Ml Inj IV 1 mg Q2HR PRN Administration Anxiety Morphine Sulfate 1 mg 11/04/22 09:38 11/04/22 13:36 Morphine 2 Mg/Ml Inj IV 1 mg Q2HR PRN Administration Pain, Moderate (4-6) Multivitamins 1 tab 10/31/22 09:00 11/08/22 08:55 Multivitamin 1 Tablet PO 1 tab DAILY JYOTI Administration Nicotine 7 mg 10/31/22 09:00 11/07/22 08:19 Nicotine 7 Mg Patch TOP 7 mg DAILY JYOTI Administration Ondansetron HCl 4 mg 10/31/22 01:07 11/04/22 12:41 Ondansetron 4 Mg/2 Ml Inj IV 4 mg Q4HR PRN Administration Nausea And Vomiting Pantoprazole Sodium 40 mg 10/31/22 21:00 11/08/22 08:54 Pantoprazole 40 Mg Vial IV 40 mg BID JYOTI Administration Objective Ventilator Parameters: Ventilator Settings FiO2 30 CPAP Pressure Amount 30 RT Vent Frequency 18 Ventilator Tidal Volume 390 Exhaled Vt/kg IBW 5.8 Positive End Expiratory 6 Pressure Inspiratory Phase Time 0.85 I:E Ratio 1:2 Patient Position HOB >= 30 degrees Labs Result Diagrams: 11/08/22 06:10 11/08/22 06:10 Labs: Laboratory Results - last 24 hr 11/01/22 11/07/22 11/07/22 00:29 17:26 23:00 WBC RBC Hgb Hct MCV MCH MCHC RDW Plt Count Neut % (Auto) Lymph % (Auto) [place] % (Auto) Eos % (Auto) Baso % (Auto) Neut # (Auto) Lymph # (Auto) [place] # (Auto) Eos # (Auto) Baso # (Auto) ABG pH 7.42 ABG pCO2 42.5 ABG pO2 82 ABG HCO3 28 H ABG Total CO2 29 ABG O2 Saturation 96 ABG Base Excess 3.0 H FiO2 35 Sodium Potassium Chloride Carbon Dioxide BUN Creatinine Estimated GFR BUN/Creatinine Ratio Glucose Calcium Total Bilirubin AST ALT Alkaline Phosphatase Total Protein Albumin Globulin Albumin/Globulin Ratio Vancomycin Peak Vancomycin Trough 16.8 Ref Test (Refrig) Comment 12/15/22 12/15/22 12/15/22 02:45 06:10 06:10 WBC 11.2 H RBC 3.43 L Hgb 9.8 L Hct 29.5 L MCV 85.8 MCH 28.6 MCHC 33.4 RDW 14.3 Plt Count 655 H Neut % (Auto) 64.8 Lymph % (Auto) 14.9 L [place] % (Auto) 10.2 Eos % (Auto) 8.8 H Baso % (Auto) 1.3 Neut # (Auto) 7300 H Lymph # (Auto) 1700 [place] # (Auto) 1200 H Eos # (Auto) 1000 H Baso # (Auto) 100 ABG pH ABG pCO2 ABG pO2 ABG HCO3 ABG Total CO2 ABG O2 Saturation ABG Base Excess FiO2 Sodium 137 Potassium 3.7 Chloride 100 Carbon Dioxide 28 BUN 16 Creatinine 0.75 Estimated GFR > 60 BUN/Creatinine Ratio 21.3 Glucose 112 H Calcium 8.6 Total Bilirubin 0.2 AST 22 ALT 13 Alkaline Phosphatase 126 Total Protein 7.3 Albumin 3.1 L Globulin 4.2 H Albumin/Globulin Ratio 0.7 L Vancomycin Peak 37.8 Vancomycin Trough Ref Test (Refrig) Exam Vital Signs (past 8 hours): - 11/08/22 01:30 11/08/22 01:30 11/08/22 01:40 Temperature Pulse Rate 83 83 Respiratory Rate 21 20 Blood Pressure 88/59 L Pulse Oximetry 98 98 11/08/22 01:45 11/08/22 01:45 11/08/22 01:50 Temperature Pulse Rate 82 83 Respiratory Rate 20 20 Blood Pressure 91/59 L Pulse Oximetry 98 98 11/08/22 02:00 11/08/22 02:00 11/08/22 02:10 Temperature Pulse Rate 83 84 Respiratory Rate 20 20 Blood Pressure 90/57 L Pulse Oximetry 98 98 11/08/22 02:15 11/08/22 02:15 11/08/22 02:20 Temperature Pulse Rate 84 86 Respiratory Rate 19 19 Blood Pressure 93/60 Pulse Oximetry 98 98 11/08/22 02:30 11/08/22 02:30 11/08/22 02:40 Temperature Pulse Rate 85 84 Respiratory Rate 18 19 Blood Pressure 92/57 L Pulse Oximetry 98 98 11/08/22 02:45 11/08/22 02:45 11/08/22 02:50 Temperature Pulse Rate 85 86 Respiratory Rate 18 19 Blood Pressure 96/60 Pulse Oximetry 98 98 11/08/22 03:00 11/08/22 03:00 11/08/22 03:10 Temperature Pulse Rate 87 86 Respiratory Rate 19 18 Blood Pressure 96/58 L Pulse Oximetry 98 98 11/08/22 03:15 11/08/22 03:15 11/08/22 03:20 Temperature Pulse Rate 87 87 Respiratory Rate 19 18 Blood Pressure 98/59 L Pulse Oximetry 98 98 11/08/22 03:30 11/08/22 03:30 11/08/22 03:40 Temperature Pulse Rate 87 88 Respiratory Rate 18 19 Blood Pressure 90/58 L Pulse Oximetry 98 98 11/08/22 03:45 11/08/22 03:45 11/08/22 03:50 Temperature Pulse Rate 88 88 Respiratory Rate 18 18 Blood Pressure 94/60 Pulse Oximetry 98 98 11/08/22 04:00 11/08/22 04:00 11/08/22 04:10 Temperature 97.6 F Pulse Rate 87 86 Respiratory Rate 18 17 Blood Pressure 92/58 L Pulse Oximetry 98 99 11/08/22 04:15 11/08/22 04:15 11/08/22 04:20 Temperature Pulse Rate 88 87 Respiratory Rate 21 19 Blood Pressure 96/54 L Pulse Oximetry 99 98 11/08/22 04:30 11/08/22 04:30 11/08/22 04:40 Temperature Pulse Rate 85 86 Respiratory Rate 19 18 Blood Pressure 95/61 Pulse Oximetry 99 99 11/08/22 04:45 11/08/22 04:45 11/08/22 04:50 Temperature Pulse Rate 85 84 Respiratory Rate 18 18 Blood Pressure 92/55 L Pulse Oximetry 99 99 11/08/22 05:00 11/08/22 05:00 11/08/22 05:10 Temperature Pulse Rate 85 85 Respiratory Rate 18 18 Blood Pressure 88/56 L Pulse Oximetry 98 98 11/08/22 05:15 11/08/22 05:15 11/08/22 05:20 Temperature Pulse Rate 84 83 Respiratory Rate 18 16 Blood Pressure 89/56 L Pulse Oximetry 99 99 11/08/22 05:30 11/08/22 05:30 11/08/22 05:40 Temperature Pulse Rate 82 82 Respiratory Rate 18 18 Blood Pressure 85/56 L Pulse Oximetry 99 99 11/08/22 05:45 11/08/22 05:45 11/08/22 05:50 Temperature Pulse Rate 84 83 Respiratory Rate 18 18 Blood Pressure 90/57 L Pulse Oximetry 99 99 11/08/22 06:00 11/08/22 06:00 11/08/22 06:10 Temperature Pulse Rate 82 81 Respiratory Rate 17 17 Blood Pressure 86/57 L Pulse Oximetry 99 99 11/08/22 06:15 11/08/22 06:15 11/08/22 06:20 Temperature Pulse Rate 81 80 Respiratory Rate 17 17 Blood Pressure 96/61 Pulse Oximetry 98 99 11/08/22 07:57 11/08/22 06:30 11/08/22 06:30 Temperature 98.0 F Pulse Rate 80 Respiratory Rate 18 Blood Pressure 93/62 Pulse Oximetry 99 11/08/22 06:40 11/08/22 06:45 11/08/22 06:45 Temperature Pulse Rate 79 79 Respiratory Rate 17 17 Blood Pressure 90/60 Pulse Oximetry 99 99 11/08/22 06:50 11/08/22 07:00 11/08/22 07:00 Temperature Pulse Rate 79 84 Respiratory Rate 20 18 Blood Pressure 99/64 Pulse Oximetry 99 98 11/08/22 07:10 11/08/22 07:15 11/08/22 07:15 Temperature Pulse Rate 83 81 Respiratory Rate 18 17 Blood Pressure 92/60 Pulse Oximetry 98 99 11/08/22 07:20 11/08/22 07:30 11/08/22 07:30 Temperature Pulse Rate 82 79 Respiratory Rate 19 18 Blood Pressure 96/65 Pulse Oximetry 97 98 11/08/22 07:40 11/08/22 07:45 11/08/22 07:45 Temperature Pulse Rate 81 80 Respiratory Rate 17 18 Blood Pressure 96/65 Pulse Oximetry 98 98 11/08/22 07:50 Temperature Pulse Rate 80 Respiratory Rate 18 Blood Pressure Pulse Oximetry 98 Fraction of Inspired Oxygen 94 Oxygen Delivery Method Mechanical Ventilation Oxygen Flow Rate 3 [facility] Th[facility]/Pulmonary Embolism Present on Admission: No Assessment & Plan Assessment & Plan narrative: ?61 yo M with PMH of HTN, ETOH abyse, and ankylosing spondylitis, who was recently had flu then admitted 10/30/22 with PNA and acute respiratory failuring requiring intubation 10/31/22. 11/04: Patient extubated.? ECHO showed EF is 40% 11/05: patient reintubated for agitation and acute respiratory failure (pt. unable to manage secretions) about 12 hours after extubation. Chest CTA neg for PE (just shows multilobar PNA) 11/06: Added precedex and resumed home gabapentin.? Weaning down propofol and fentanyl drip.? Levophed drip started for BP support. 11/07, off precedex Comfortable on Vent, current vent settings R 18 VT 390 PEEP 6 FIO2 30% Assessment: Acute respiratory failure requiring intubation Extubation failure/ re intubated 11/05 PNA (viral +/bacterial) ETOH withdawal Acute metabolic encephalopathy Plan [employer]: - Dc fentanyl, Wean off propfol then precedex -continue Librium 50 mg QID, gabapentin 300 mg TID -Daily SAT, wean down fentanyl and propofol drip as tolerated CV: ECHO 11/04 showed EF is 40% +/- 5 with some diastolic dysfunction -wean down Levophed drip as long as MAP > 65 Pulm: chest CTA 11/05 neg for PE but does show multifocal PNA -check ABG and adjust vent as needed -Daily CXR and SBT ID: continue Zosyn for 7 days post re- intubation.? Blood and sputum culture so far neg. HEme: hgb and platelets stable FEN/Renal: stable renal function -continue to diurese with lasix and adjsut dose for neg 1 L daily, currently on 40 mg QD -diamox prn metabolic alkalemia ( ph >7.45) -replace electrolytes as needed GI/nutrition: tube feeds as tolerated Endo: monitor BG PPx: Lovenox Protonix Time Spent With Patient Critical Care time: I spent a total of [] minutes of critical care time on this patient's care today; this time is exclusive of procedural time.
--- NOTE | 2022-11-08 09:48 | P.PN_ITS ---
Subjective Subjective Date Patient Seen: 11/08/22 Interval history: No changes. Still intubated and sedated. Management mainly per tele-ICU doc. Exam Vital Signs (past 8 hours): - 11/08/22 01:50 11/08/22 02:00 11/08/22 02:00 Temperature Pulse Rate 83 83 Respiratory Rate 20 20 Blood Pressure 90/57 L Pulse Oximetry 98 98 11/08/22 02:10 11/08/22 02:15 11/08/22 02:15 Temperature Pulse Rate 84 84 Respiratory Rate 20 19 Blood Pressure 93/60 Pulse Oximetry 98 98 11/08/22 02:20 11/08/22 02:30 11/08/22 02:30 Temperature Pulse Rate 86 85 Respiratory Rate 19 18 Blood Pressure 92/57 L Pulse Oximetry 98 98 11/08/22 02:40 11/08/22 02:45 11/08/22 02:45 Temperature Pulse Rate 84 85 Respiratory Rate 19 18 Blood Pressure 96/60 Pulse Oximetry 98 98 11/08/22 02:50 11/08/22 03:00 11/08/22 03:00 Temperature Pulse Rate 86 87 Respiratory Rate 19 19 Blood Pressure 96/58 L Pulse Oximetry 98 98 11/08/22 03:10 11/08/22 03:15 11/08/22 03:15 Temperature Pulse Rate 86 87 Respiratory Rate 18 19 Blood Pressure 98/59 L Pulse Oximetry 98 98 11/08/22 03:20 11/08/22 03:30 11/08/22 03:30 Temperature Pulse Rate 87 87 Respiratory Rate 18 18 Blood Pressure 90/58 L Pulse Oximetry 98 98 11/08/22 03:40 11/08/22 03:45 11/08/22 03:45 Temperature Pulse Rate 88 88 Respiratory Rate 19 18 Blood Pressure 94/60 Pulse Oximetry 98 98 11/08/22 03:50 11/08/22 04:00 11/08/22 04:00 Temperature 97.6 F Pulse Rate 88 87 Respiratory Rate 18 18 Blood Pressure 92/58 L Pulse Oximetry 98 98 11/08/22 04:10 11/08/22 04:15 11/08/22 04:15 Temperature Pulse Rate 86 88 Respiratory Rate 17 21 Blood Pressure 96/54 L Pulse Oximetry 99 99 11/08/22 04:20 11/08/22 04:30 11/08/22 04:30 Temperature Pulse Rate 87 85 Respiratory Rate 19 19 Blood Pressure 95/61 Pulse Oximetry 98 99 11/08/22 04:40 11/08/22 04:45 11/08/22 04:45 Temperature Pulse Rate 86 85 Respiratory Rate 18 18 Blood Pressure 92/55 L Pulse Oximetry 99 99 11/08/22 04:50 11/08/22 05:00 11/08/22 05:00 Temperature Pulse Rate 84 85 Respiratory Rate 18 18 Blood Pressure 88/56 L Pulse Oximetry 99 98 11/08/22 05:10 11/08/22 05:15 11/08/22 05:15 Temperature Pulse Rate 85 84 Respiratory Rate 18 18 Blood Pressure 89/56 L Pulse Oximetry 98 99 11/08/22 05:20 11/08/22 05:30 11/08/22 05:30 Temperature Pulse Rate 83 82 Respiratory Rate 16 18 Blood Pressure 85/56 L Pulse Oximetry 99 99 11/08/22 05:40 11/08/22 05:45 11/08/22 05:45 Temperature Pulse Rate 82 84 Respiratory Rate 18 18 Blood Pressure 90/57 L Pulse Oximetry 99 99 11/08/22 05:50 11/08/22 06:00 11/08/22 06:00 Temperature Pulse Rate 83 82 Respiratory Rate 18 17 Blood Pressure 86/57 L Pulse Oximetry 99 99 11/08/22 06:10 11/08/22 06:15 11/08/22 06:15 Temperature Pulse Rate 81 81 Respiratory Rate 17 17 Blood Pressure 96/61 Pulse Oximetry 99 98 11/08/22 06:20 11/08/22 07:57 11/08/22 06:30 Temperature 98.0 F Pulse Rate 80 Respiratory Rate 17 Blood Pressure 93/62 Pulse Oximetry 99 11/08/22 06:30 11/08/22 06:40 11/08/22 06:45 Temperature Pulse Rate 80 79 79 Respiratory Rate 18 17 17 Blood Pressure Pulse Oximetry 99 99 99 11/08/22 06:45 11/08/22 06:50 11/08/22 07:00 Temperature Pulse Rate 79 Respiratory Rate 20 Blood Pressure 90/60 99/64 Pulse Oximetry 99 11/08/22 07:00 11/08/22 07:10 11/08/22 07:15 Temperature Pulse Rate 84 83 Respiratory Rate 18 18 Blood Pressure 92/60 Pulse Oximetry 98 98 11/08/22 07:15 11/08/22 07:20 11/08/22 07:30 Temperature Pulse Rate 81 82 Respiratory Rate 17 19 Blood Pressure 96/65 Pulse Oximetry 99 97 11/08/22 07:30 11/08/22 07:40 11/08/22 07:45 Temperature Pulse Rate 79 81 Respiratory Rate 18 17 Blood Pressure 96/65 Pulse Oximetry 98 98 11/08/22 07:45 11/08/22 07:50 Temperature Pulse Rate 80 80 Respiratory Rate 18 18 Blood Pressure Pulse Oximetry 98 98 Fraction of Inspired Oxygen 94 Oxygen Delivery Method Mechanical Ventilation Oxygen Flow Rate 3 Narrative Exam Narrative: General: Intubated and sedated HEENT: Pupils equal and reactive, anicteric, poor dentition Lungs: Bilateral coarse crackles throughout Heart: Regular rhythm Abdomen: Nondistended but seems diffusely tender with patient grimacing on deep palpation Extremities: No cyanosis or edema Neurological: No focal deficits Skin: No rash or petechiae Objective Labs Result Diagrams: 11/08/22 06:10 11/08/22 06:10 Labs: Laboratory Results - last 24 hr 11/01/22 11/07/22 11/07/22 00:29 17:26 23:00 WBC RBC Hgb Hct MCV MCH MCHC RDW Plt Count Neut % (Auto) Lymph % (Auto) [place] % (Auto) Eos % (Auto) Baso % (Auto) Neut # (Auto) Lymph # (Auto) [place] # (Auto) Eos # (Auto) Baso # (Auto) ABG pH 7.42 ABG pCO2 42.5 ABG pO2 82 ABG HCO3 28 H ABG Total CO2 29 ABG O2 Saturation 96 ABG Base Excess 3.0 H FiO2 35 Sodium Potassium Chloride Carbon Dioxide BUN Creatinine Estimated GFR BUN/Creatinine Ratio Glucose Calcium Total Bilirubin AST ALT Alkaline Phosphatase Total Protein Albumin Globulin Albumin/Globulin Ratio Vancomycin Peak Vancomycin Trough 16.8 Ref Test (Refrig) Comment 11/08/22 11/08/22 11/08/22 02:45 06:10 06:10 WBC 11.2 H RBC 3.43 L Hgb 9.8 L Hct 29.5 L MCV 85.8 MCH 28.6 MCHC 33.4 RDW 14.3 Plt Count 655 H Neut % (Auto) 64.8 Lymph % (Auto) 14.9 L [place] % (Auto) 10.2 Eos % (Auto) 8.8 H Baso % (Auto) 1.3 Neut # (Auto) 7300 H Lymph # (Auto) 1700 [place] # (Auto) 1200 H Eos # (Auto) 1000 H Baso # (Auto) 100 ABG pH ABG pCO2 ABG pO2 ABG HCO3 ABG Total CO2 ABG O2 Saturation ABG Base Excess FiO2 Sodium 137 Potassium 3.7 Chloride 100 Carbon Dioxide 28 BUN 16 Creatinine 0.75 Estimated GFR > 60 BUN/Creatinine Ratio 21.3 Glucose 112 H Calcium 8.6 Total Bilirubin 0.2 AST 22 ALT 13 Alkaline Phosphatase 126 Total Protein 7.3 Albumin 3.1 L Globulin 4.2 H Albumin/Globulin Ratio 0.7 L Vancomycin Peak 37.8 Vancomycin Trough Ref Test (Refrig) [facility] Medical History Acid reflux Alcohol abuse Ankle pain Ankylosing spondylitis (1985) Ankylosing spondylitis Chronic back pain Foot pain Fracture cervical vertebra-closed GERD (gastroesophageal reflux disease) Hypertension Hypertension Muscle pain Tobacco use disorder, moderate, in early remission Surgical History History of open reduction and internal fixation (ORIF) procedure (2005) History of tonsillectomy Status post colonoscopy (2012) Status post incision and drainage Family History Father No problems noted. Mother Cancer Other Alcoholism Colorectal cancer Social History Smoking Status: Current every day smoker Assessment & Plan Assessment & Plan narrative: 1. Acute hypoxic respiratory failure Patient extubated this 11/04 after partial self-extubation. Then needed reintubation overnight on 11/05 due to worsening hypoxia and agitation. Patient remains on Zosyn for pneumonia with doxy for MRSA coverage. Completed a course of azithromycin. CTPA 11/05 negative for PE but worsening multifocal PNA. 2. Bilateral bacterial pneumonia [place] to be superinfection in the setting of influenza A.? As noted, he remains on Zosyn and doxy due to positive MRSA swab screen. Consider 10-14 day course. 3. Influenza A Continuing supportive care. 4. Alcohol and herion dependence with withdrawal Patient is presently on a Precedex drip.? He is also receiving Librium. Continue thiamine, MV and folate. 5. Stress cardiomyopathy Echo with EF 40% and mid LV segment hypokinesis/akinesis suspicious for stress cardiomyopathy. Troponin up to 0.165 then downtrended to 0.155. PE ruled out. Heparin drip stopped. Getting lasix IV 40mg daily for net neg 1L per day goal. 6. Possible septic shock with acute end-organ failure Patient presented with pneumonia, lactic acidosis, leukocytosis, tachycardia, and hypoxia.? He has been on IV fluids.? Overall, sepsis physiology has resolved. 7. Acute metabolic encephalopathy Likely multifactorial from infection, sepsis, alcohol withdrawal. Will be difficult to wean sedation and extubate so may be ongoing. 8. Essential hypertension On metoprolol on an outpatient basis.? This has been held in the setting of sepsis. 9. Protein calorie malnutrition Tube feeds initiated yesterday at 10 cc/hour. Now that he is extubated, those have been discontinued. Await for speech therapy to clear him for a diet. 10. Normocytic anemia Hemoglobin is stable at 10.1. 11. Hypokalemia continue to replete per pharmacy. Code status Full Prophylaxis Lovenox Disposition ICU I spent a total of 35 minutes of critical care time on this patient's care today; this time is exclusive of procedural time. Time Spent With Patient Critical Care time: I spent a total of [] minutes of critical care time on this patient's care today; this time is exclusive of procedural time. Quality VTE Deep Vein Thrombosis/Pulmonary Embolism Present on Admission: No
--- NOTE | 2022-11-08 10:44 | DI.RAD.S_ITS ---
PROCEDURE: XR CHEST 1V INDICATIONS: intubated, pneumonia TECHNIQUE: One view of the chest was acquired. COMPARISON: [facility], CR, XR CHEST 1V, 11/05/2022, 19:54. FINDINGS: Surgical changes and devices: Cervical thoracic posterior carlitos and screw instrumentation present. Nasogastric tube in the stomach. Right IJ central venous line tip in the distal SVC. Endotracheal tube tip 3 cm above roxi Lungs and pleura: Bibasilar atelectasis and or infiltrate present. No pneumothorax. Generalized decrease in osseous mineralization noted. Mediastinum: Mediastinal contours appear normal. Heart size is normal. Bones and chest wall: No suspicious bony lesions. Overlying soft tissues appear unremarkable. IMPRESSION: Bibasilar atelectasis and or infiltrate Lines and tubes in good position Approved by: Jasper Petit M.D. on 11/08/2022 at 15:40
[2022-11-08] MEDS: NICOTINE 7 MG PATCH TOP (10:48)
[2022-11-08] MEDS: THIAMINE 100 MG in SODIUM CHLORIDE 0.9% 100 ML 404 MG IV (10:51)
[2022-11-08] MEDS: VANCOMYCIN 750 MG/150 ML PIGGYBACK 150 MG IV ×2 (13:24→19:57)
[2022-11-08] MEDS: NOREPINEPHRINE BITARTRATE/D5W 4 MG/250 ML PLAST..BAG 18.75 MG IV (17:55)
--- NOTE | 2022-11-08 18:38 | PC.NURSE ---
Pt sedated on Precedex and Fentanyl gtt, Propofol titrated off. Pt slowly starting to follow commands and open eyes to voice. B/l wrist restraints in place for pt safety. Vented on 30% peep 6 RR 18 TV 390, minimal inline secretions, moderate oral secretions. NSR. Levo titrated for MAP>65. Afebrile. TF via OGT at goal, tolerating well. No BM. [place] w/ AUOP.
--- NOTE | 2022-11-08 20:15 | PM.ICURNDS ---
- Date Patient Seen: 11/08/22 Time Patient Seen: 20:15 :: This patient was seen via real time interactive two-way audiovisual telecommunication. Note: Daily spontaneous awakening sessions are improving, decreased sedation needs. Currently on Fent 0.5, Prec 0.5. On Librium, Gabapentin. VS are WNL. Levophed going @ 5 Vent: 390, 18, 30%, 6 TFs at goal. PPI. Lasix QD ordered; has received Diamox. K is WNL. Last Mg level was 2 days ago Lovenox for VTE PPx Continues on Zosyn, Doxy N: Spontaneous awakenings. Consider weaning down Fentanyl drip, PRN boluses. Continue Precedex, Librium, Gabapentin C: Continue Levo for MAP >65 goal. Consider repeat TTE to guide further diuresis. P: Continue SBTs; PS during day reasonable. GI: Continue TFs, PPI. Could hold additional IV Thiamine repletion R: As above, goal gently negative. Follow daily lytes with diuresis H: Lovenox. Hgb trending daily ID: [email or web address], Vanc - plan for 7 day course post re-intubation E: BGs trending Please contact Tele-ICU with any change in status.
[2022-11-08] MEDS: dexmedeTOMIDine in 0.9 % NaCL 400 MCG/100 ML PLAST..BAG 7.188 MCG IV (22:44)
[2022-11-09] VITALS (98 sets, daily range): BP systolic 71–108; BP diastolic 50–71; PULSE 72–110; RESP 19–45; TEMP 36.4–37.3; O2SAT 90–100
--- NOTE | 2022-11-09 00:12 | PC.NURSE ---
Addendum entered by Kamini Bay R.N. 11/09/22 06:27: 0600- Rass score -2. Patient tearful and squeezing my hand. Patient opens his eyes when requested. Line changes completed. Mouth care done. Patient tolerating care without agitation. Patient less awake after Librium. NSR no ectopy noted. Respiratory rate 24-28 but patient able to slow rate when requested. Original Note: 0000- Patient is more awake and able to open his eyes when asked and squeeze my hand when asked. Does not nod yes/no. Patient is not agitated and appears comfortable. Will monitor.
[2022-11-09] MEDS: VANCOMYCIN 750 MG/150 ML PIGGYBACK 150 MG IV ×2 (04:09→11:37)
[2022-11-09] MEDS: fentaNYL 1,000 MCG in DEXTROSE 5% IN WATER 230 ML 7.713 MCG IV (04:57)
[2022-11-09 05:18] LABS: Add Manual Diff / Slide Review NO; Basophils Absolute Auto 100 /uL (0-100); Basophils Percent Auto 1.2 % (0-2); Eosinophils Absolute Auto 700 /uL (0-450); Hematocrit 28.1 % (41-53); Hemoglobin 9.6 g/dL (13.5-17.5); Lymphocytes Absolute Auto 1600 /uL (1100-4500); Lymphocytes Percent Auto 14.7 % (25-40); Mean Corpuscular Hemoglobin 28.9 PG (26-34); Monocytes Absolute Auto 1100 /uL (0-900); Monocytes Percent Auto 10.4 % (3-14); Neutrophils Absolute Auto 7100 /uL (1500-7000); Neutrophils Percent Auto 66.7 % (50-75); Platelet Count 639 X10^3/uL (150-400); Red Blood Cell Count 3.31 X10^6/uL (4.5-5.9); Red Cell Distribution Width 14.3 % (11.6-14.8); White Blood Cell Count 10.6 X10^3/uL (4.5-11.0)
[2022-11-09] MEDS: PIPERACILLIN/TAZO 3.375 GM in SODIUM CHLORIDE 0.9% 100 ML IV ×3 (05:24→20:22)
[2022-11-09 05:28] LABS: Alanine Aminotransferase 16 IU/L (<50); Albumin 3.1 g/dL (3.5-5.0); Albumin Globulin Ratio 0.8 (1.0-2.8); Alkaline Phosphatase 115 U/L (38-126); Aspartate Aminotransferase 33 IU/L (17-59); BUN Creatinine Ratio 23.3 (6-22); Bilirubin Total 0.3 mg/dL (0.2-1.3); Blood Urea Nitrogen 17 mg/dL (9-20); Calcium 8.4 mg/dL (8.4-10.2); Carbon Dioxide 28 mmol/L (22-32); Chloride 99 mmol/L (98-107); Estimated Glomerular Filt Rate > 60 mL/min (>60); Globulin 4.1 g/dL (1.7-4.1); Glucose 115 mg/dL (80-110); HEMOLYSIS < 15 (0-50); Potassium 3.8 mmol/L (3.4-5.1); Sodium 135 mmol/L (137-145); Total Protein 7.2 g/dL (6.3-8.2)
[2022-11-09] MEDS: chlordiazePOXIDE 25 MG CAPSULE 50 MG PO (05:58)
[2022-11-09] MEDS: CHLORHEXIDINE GLUCONATE 15 ML CUP PO ×4 (05:58→23:13)
[2022-11-09] MEDS: NOREPINEPHRINE BITARTRATE/D5W 4 MG/250 ML PLAST..BAG 18.75 MG IV (06:41)
[2022-11-09] MEDS: SODIUM CHLORIDE 0.9% 500 ML 1000 ML IV (07:36)
[2022-11-09] MEDS: PANTOPRAZOLE 40 MG VIAL IV ×2 (08:15→20:22)
[2022-11-09] MEDS: ENOXAPARIN 40 MG/0.4 ML SYRINGE SUBCUT (08:16)
[2022-11-09] MEDS: MULTIVITAMIN 1 TABLET 1 TAB PO (08:16)
[2022-11-09] MEDS: FOLIC ACID 1 MG TABLET PO (08:16)
[2022-11-09] MEDS: GABAPENTIN 300 MG CAPSULE TUBE ×3 (08:16→20:22)
[2022-11-09] MEDS: THIAMINE 100 MG in SODIUM CHLORIDE 0.9% 100 ML 404 MG IV (09:09)
[2022-11-09] MEDS: NICOTINE 7 MG PATCH TOP (09:10)
[2022-11-09] MEDS: dexmedeTOMIDine in 0.9 % NaCL 400 MCG/100 ML PLAST..BAG 10.063 MCG IV (09:15)
[2022-11-09] MEDS: VANCOMYCIN TROUGH 1 REQUEST MISC (12:37)
--- NOTE | 2022-11-09 12:46 | PM.PN.EICU ---
Subjective Subjective IF CAMERA ACTIVATED, patient seen via real-time interactive audiovisual communication: Camera activated Consent obtained for tele-fabrication lead care: Yes Patient Location: ICU Provider location (State): Other participants/roles: RN Current Medications Current Medications Medications: Home Medications ketorolac 0.4 % eye drops 1 drp OPHTH QID #5 mL 06/20/17 [Rx Confirmed 10/13/18] indomethacin 50 mg capsule 50 mg PO TIDP PRN pain, moderate #90 caps 10/13/18 [Rx] amitriptyline 25 mg tablet 25 mg PO BEDTIME #30 tabs 01/07/19 [Rx] ondansetron 4 mg disintegrating tablet 4 mg PO TID-QID PRN nausea and vomiting #10 tabs 02/24/19 [Rx] cyclobenzaprine 10 mg tablet 10 mg PO TIDP #90 tabs 11/19/19 [Rx] gabapentin 300 mg capsule (Neurontin) 300 mg PO Q8H #90 caps 11/19/19 [Rx] metoprolol succinate 50 mg tablet,extended release 24 hr (Toprol XL) 50 mg PO BID #60 tabs 11/19/19 [Rx] omeprazole 20 mg capsule,delayed release 20 mg PO QDAY #30 caps 11/19/19 [Rx] doxycycline hyclate 100 mg capsule 100 mg PO BID #14 caps 05/03/22 [Rx] Visit Medications (administered) Generic Name Dose Route Start Last Admin Trade Name Freq PRN Reason Stop Dose Admin Chlordiazepoxide HCl 50 mg 11/04/22 12:00 11/09/22 05:58 Chlordiazepoxide 25 Mg Capsule PO 50 mg Q6HR JYOTI Administration Chlorhexidine Gluconate 15 ml 10/31/22 18:00 11/09/22 05:58 Chlorhexidine Gluconate 15 Ml Cup PO 15 ml Q6HR JYOTI Administration Enoxaparin Sodium 40 mg 11/06/22 12:00 11/09/22 08:16 Enoxaparin 40 Mg/0.4 Ml Syringe SUBCUT 40 mg DAILY JYOTI Administration Folic Acid 1 mg 10/31/22 09:00 11/09/22 08:16 Folic Acid 1 Mg Tablet PO 1 mg DAILY JYOTI Administration Furosemide 40 mg 11/07/22 09:00 11/09/22 08:10 Furosemide 40 Mg/4 Ml Vial IV Not Given DAILY JYOTI Gabapentin 300 mg 11/06/22 09:45 11/09/22 08:16 Gabapentin 300 Mg Capsule TUBE 300 mg TID JYOTI Administration Haloperidol 5 mg 11/04/22 09:36 11/04/22 10:18 Haloperidol 5 Mg/Ml Vial IV 5 mg Q2HR PRN Administration Agitation Thiamine HCl 100 mg/ Sodium 101 mls @ 404 mls/hr 10/31/22 09:30 11/09/22 10:14 Chloride IV Infused DAILY JYOTI Infusion Piperacillin Sod/Tazobactam 100 mls @ 25 mls/hr 10/31/22 12:45 11/09/22 05:24 Sod 3.375 gm/ Sodium Chloride IV 25 mls/hr Q8H JYOTI Administration Sodium Chloride 500 mls @ 1,000 mls/hr 10/31/22 14:03 10/31/22 18:19 Normal Saline 0.9% IV Infused BOLUS PRN Infusion Fluid replacement Propofol 1,000 mg in 100 mls @ 1.965 mls/hr 10/31/22 14:15 11/08/22 16:23 Propofol IV 0 mcg/kg/min TITRATE JYOTI 0 mls/hr Titration Protocol 5 MCG/KG/MIN Fentanyl 1,000 mcg/ Dextrose 250 mls @ 10.798 mls/hr 11/04/22 22:45 11/09/22 09:53 IV 0 mcg/kg/hr TITRATE JYOTI 0 mls/hr Titration Protocol 0.7 MCG/KG/HR NOREPINEPHRINE BITARTRATE/D5W 4 mg in 250 mls @ 30 mls/hr 11/04/22 22:51 11/09/22 06:41 Levophed IV 5 mcg/min TITRATE JYOTI 18.75 mls/hr Administration Protocol 8 MCG/MIN dexmedeTOMIDine in 0.9 % NaCL 400 mcg in 100 mls @ 2.875 mls/hr 11/06/22 10:15 11/09/22 12:08 Precedex IV 0 mcg/kg/hr TITRATE JYOTI 0 mls/hr Titration Protocol 0.2 MCG/KG/HR Vancomycin HCl 750 mg in 150 mls @ 150 mls/hr 11/08/22 12:00 11/09/22 11:37 Vancomycin IV 150 mls/hr Q8H JYOTI Administration Lorazepam 0 mg 10/31/22 00:42 11/04/22 14:03 Lorazepam 2 Mg/Ml Inj IV 2 mg CIWAPRN PRN Administration Alcohol Withdrawal/n/V Protocol Lorazepam 1 mg 11/04/22 09:37 11/04/22 15:20 Lorazepam 2 Mg/Ml Inj IV 1 mg Q2HR PRN Administration Anxiety Morphine Sulfate 1 mg 11/04/22 09:38 11/04/22 13:36 Morphine 2 Mg/Ml Inj IV 1 mg Q2HR PRN Administration Pain, Moderate (4-6) Multivitamins 1 tab 10/31/22 09:00 11/09/22 08:16 Multivitamin 1 Tablet PO 1 tab DAILY JYOTI Administration Nicotine 7 mg 10/31/22 09:00 11/09/22 09:10 Nicotine 7 Mg Patch TOP 7 mg DAILY JYOTI Administration Ondansetron HCl 4 mg 10/31/22 01:07 11/04/22 12:41 Ondansetron 4 Mg/2 Ml Inj IV 4 mg Q4HR PRN Administration Nausea And Vomiting Pantoprazole Sodium 40 mg 10/31/22 21:00 11/09/22 08:15 Pantoprazole 40 Mg Vial IV 40 mg BID JYOTI Administration Objective Ventilator Parameters: Ventilator Settings FiO2 30 CPAP Pressure Amount 30 RT Vent Frequency 18 Ventilator Tidal Volume 390 Exhaled Vt/kg IBW 5.8 Positive End Expiratory 6 Pressure Inspiratory Phase Time 0.85 I:E Ratio 1:2.2 Patient Position HOB >= 30 degrees Labs Result Diagrams: 11/09/22 05:00 11/09/22 05:00 Labs: Laboratory Results - last 24 hr 11/09/22 11/09/22 11/09/22 05:00 05:00 05:00 WBC 10.6 RBC 3.31 L Hgb 9.6 L Hct 28.1 L MCV 85.0 MCH 28.9 MCHC 34.0 RDW 14.3 Plt Count 639 H Neut % (Auto) 66.7 Lymph % (Auto) 14.7 L [place] % (Auto) 10.4 Eos % (Auto) 7.0 H Baso % (Auto) 1.2 Neut # (Auto) 7100 H Lymph # (Auto) 1600 [place] # (Auto) 1100 H Eos # (Auto) 700 H Baso # (Auto) 100 Sodium 135 L Potassium 3.8 Chloride 99 Carbon Dioxide 28 BUN 17 Creatinine 0.73 Estimated GFR > 60 BUN/Creatinine Ratio 23.3 H Glucose 115 H Calcium 8.4 Magnesium 2.0 Total Bilirubin 0.3 AST 33 ALT 16 Alkaline Phosphatase 115 Total Protein 7.2 Albumin 3.1 L Globulin 4.1 Albumin/Globulin Ratio 0.8 L Exam Vital Signs (past 8 hours): - 11/09/22 05:00 11/09/22 05:00 11/09/22 07:27 Temperature 99.2 F Pulse Rate 75 Respiratory Rate 25 H Blood Pressure 88/60 L Pulse Oximetry 99 Oxygen Delivery Method 11/09/22 07:00 11/09/22 07:00 11/09/22 07:10 Temperature Pulse Rate 78 77 Respiratory Rate 25 H 24 Blood Pressure 93/57 L Pulse Oximetry 100 99 Oxygen Delivery Method 11/09/22 07:15 11/09/22 07:15 11/09/22 07:20 Temperature Pulse Rate 78 81 Respiratory Rate 19 26 H Blood Pressure 83/50 L Pulse Oximetry 98 96 Oxygen Delivery Method 11/09/22 08:00 11/09/22 07:30 11/09/22 07:30 Temperature Pulse Rate 82 Respiratory Rate 32 H Blood Pressure 91/56 L Pulse Oximetry 97 Oxygen Delivery Method Mechanical Ventilation 11/09/22 07:40 11/09/22 07:45 11/09/22 07:45 Temperature Pulse Rate 88 85 Respiratory Rate 32 H 28 H Blood Pressure 92/56 L Pulse Oximetry 96 97 Oxygen Delivery Method 11/09/22 07:50 11/09/22 08:00 11/09/22 08:00 Temperature Pulse Rate 84 83 Respiratory Rate 29 H 30 H Blood Pressure 100/60 Pulse Oximetry 95 97 Oxygen Delivery Method 11/09/22 08:10 11/09/22 08:15 11/09/22 08:15 Temperature Pulse Rate 73 72 Respiratory Rate 24 25 H Blood Pressure 94/52 L Pulse Oximetry 99 99 Oxygen Delivery Method 11/09/22 08:20 11/09/22 08:30 11/09/22 08:30 Temperature Pulse Rate 73 73 Respiratory Rate 25 H 26 H Blood Pressure 90/52 L Pulse Oximetry 99 99 Oxygen Delivery Method 11/09/22 08:40 11/09/22 08:45 11/09/22 08:45 Temperature Pulse Rate 72 72 Respiratory Rate 24 27 H Blood Pressure 92/55 L Pulse Oximetry 99 100 Oxygen Delivery Method 11/09/22 08:50 11/09/22 09:00 11/09/22 09:00 Temperature Pulse Rate 72 72 Respiratory Rate 25 H 25 H Blood Pressure 88/53 L Pulse Oximetry 99 99 Oxygen Delivery Method 11/09/22 09:10 11/09/22 09:15 11/09/22 09:15 Temperature Pulse Rate 77 76 Respiratory Rate 27 H 27 H Blood Pressure 85/50 L Pulse Oximetry 99 99 Oxygen Delivery Method 11/09/22 09:20 11/09/22 09:30 11/09/22 09:30 Temperature Pulse Rate 78 80 Respiratory Rate 27 H 30 H Blood Pressure 89/52 L Pulse Oximetry 100 99 Oxygen Delivery Method 11/09/22 09:40 11/09/22 09:45 11/09/22 09:45 Temperature Pulse Rate 84 85 Respiratory Rate 33 H 34 H Blood Pressure 95/58 L Pulse Oximetry 94 94 Oxygen Delivery Method 11/09/22 09:50 11/09/22 10:00 11/09/22 10:00 Temperature Pulse Rate 86 86 Respiratory Rate 33 H 34 H Blood Pressure 95/58 L Pulse Oximetry 94 93 Oxygen Delivery Method 11/09/22 10:10 11/09/22 10:15 11/09/22 10:15 Temperature Pulse Rate 91 H 90 Respiratory Rate 35 H 36 H Blood Pressure 98/59 L Pulse Oximetry 90 L 92 Oxygen Delivery Method 11/09/22 10:20 11/09/22 10:30 11/09/22 10:30 Temperature Pulse Rate 90 86 Respiratory Rate 31 H 29 H Blood Pressure 87/50 L Pulse Oximetry 94 97 Oxygen Delivery Method 11/09/22 10:40 11/09/22 10:45 11/09/22 10:45 Temperature Pulse Rate 85 84 Respiratory Rate 23 27 H Blood Pressure 85/54 L Pulse Oximetry 98 99 Oxygen Delivery Method 11/09/22 12:00 Temperature Pulse Rate Respiratory Rate Blood Pressure Pulse Oximetry Oxygen Delivery Method Mechanical Ventilation Fraction of Inspired Oxygen 94 Oxygen Delivery Method Mechanical Ventilation Oxygen Flow Rate 3 Quality TeleICU VTE Deep Vein Thrombosis/Pulmonary Embolism Present on Admission: No Assessment & Plan Assessment & Plan narrative: 1 yo M with PMH of HTN, ETOH abyse, and ankylosing spondylitis, who was recently had flu then admitted 10/30/22 with PNA and acute respiratory failuring requiring intubation 10/31/22. 11/04: Patient extubated.? ECHO showed EF is 40% 11/05: patient reintubated for agitation and acute respiratory failure (pt. unable to manage secretions) about 12 hours after extubation. Chest CTA neg for PE (just shows multilobar PNA) 11/06: Added precedex and resumed home gabapentin.? Weaning down propofol and fentanyl drip.? Levophed drip started for BP support. 11/07, off precedex Comfortable on Vent, current vent settings R 18 VT 390 PEEP 6 FIO2 30% Assessment: Acute respiratory failure requiring intubation Extubation failure/ re intubated 11/05 PNA (viral +/bacterial) ETOH withdawal Acute metabolic encephalopathy Plan [employer]: - Off fentanyl, Wean off precedex -continue Librium 50 mg QID, gabapentin 300 mg TID -Daily SAT, plan for SBT today CV: ECHO 11/04 showed EF is 40% +/- 5 with some diastolic dysfunction -wean down Levophed drip as long as MAP > 65, currently at 5 mcg/min, pls avoid fluid boluses and keep neg fluid balance as the pressor requiriment is small and likely sedation induced Pulm: chest CTA 11/05 neg for PE but does show multifocal PNA -check ABG and adjust vent as needed -Daily CXR and? SBT ID: continue Zosyn for 7 days post re- intubation.? Blood and sputum culture so far neg. HEme: hgb and platelets stable FEN/Renal: stable renal function -continue to diurese with lasix and adjsut dose for neg 1 L daily, currently on 40 mg QD -diamox prn metabolic alkalemia ( ph >7.45) -replace electrolytes as needed GI/nutrition: tube feeds as tolerated Endo: monitor BG PPx: Lovenox Protonix Time Spent With Patient Critical Care time: I spent a total of [40] minutes of critical care time on this patient's care today; this time is exclusive of procedural time.
[2022-11-09 13:00] LABS: Vancomycin Trough 21.7 ug/mL (10-20)
[2022-11-09] MEDS: VANCOMYCIN 1,000 MG/200 ML PIGGYBACK 200 MG IV (15:54)
--- NOTE | 2022-11-09 16:52 | P.PN_ITS ---
Subjective Subjective Interval history: 61-year-old gentleman with hypertension, ankylosing spondylitis, heroin use, and alcohol dependence who was admitted with influenza a, bacterial pneumonia, acute hypoxic respiratory failure, and alcohol and heroin withdrawal symptoms. He failed extubation on November 04 and required intubation. He has remained on mechanical ventilation since that time. He remains on a Precedex drip, fentanyl and propofol. Continues to require Levophed for hypotension. He did have systolic pressure in the 80s this morning. Furosemide was held and he was given a small IV fluid bolus. Tele repairer recreational vehicle subsequently presented for rounds and recommended no additional IV fluids. Recommendation was to discontinue fentanyl, work on a sedation holiday and a spontaneous breathing trial. Patient is sedated and unresponsive. Exam Vital Signs (past 8 hours): - 11/09/22 09:00 11/09/22 09:00 11/09/22 09:10 Pulse Rate 72 77 Respiratory Rate 25 H 27 H Blood Pressure 88/53 L Pulse Oximetry 99 99 Oxygen Delivery Method 11/09/22 09:15 11/09/22 09:15 11/09/22 09:20 Pulse Rate 76 78 Respiratory Rate 27 H 27 H Blood Pressure 85/50 L Pulse Oximetry 99 100 Oxygen Delivery Method 11/09/22 09:30 11/09/22 09:30 11/09/22 09:40 Pulse Rate 80 84 Respiratory Rate 30 H 33 H Blood Pressure 89/52 L Pulse Oximetry 99 94 Oxygen Delivery Method 11/09/22 09:45 11/09/22 09:45 11/09/22 09:50 Pulse Rate 85 86 Respiratory Rate 34 H 33 H Blood Pressure 95/58 L Pulse Oximetry 94 94 Oxygen Delivery Method 11/09/22 10:00 11/09/22 10:00 11/09/22 10:10 Pulse Rate 86 91 H Respiratory Rate 34 H 35 H Blood Pressure 95/58 L Pulse Oximetry 93 90 L Oxygen Delivery Method 11/09/22 10:15 11/09/22 10:15 11/09/22 10:20 Pulse Rate 90 90 Respiratory Rate 36 H 31 H Blood Pressure 98/59 L Pulse Oximetry 92 94 Oxygen Delivery Method 11/09/22 10:30 11/09/22 10:30 11/09/22 10:40 Pulse Rate 86 85 Respiratory Rate 29 H 23 Blood Pressure 87/50 L Pulse Oximetry 97 98 Oxygen Delivery Method 11/09/22 10:45 11/09/22 10:45 11/09/22 12:00 Pulse Rate 84 Respiratory Rate 27 H Blood Pressure 85/54 L Pulse Oximetry 99 Oxygen Delivery Method Mechanical Ventilation 11/09/22 16:00 11/09/22 12:30 11/09/22 12:30 Pulse Rate 89 Respiratory Rate 24 Blood Pressure 102/60 Pulse Oximetry 97 Oxygen Delivery Method Mechanical Ventilation 11/09/22 12:40 11/09/22 12:45 11/09/22 12:45 Pulse Rate 89 88 Respiratory Rate 29 H 31 H Blood Pressure 102/62 Pulse Oximetry 100 100 Oxygen Delivery Method 11/09/22 12:50 11/09/22 13:00 11/09/22 13:00 Pulse Rate 89 97 H Respiratory Rate 27 H 33 H Blood Pressure 93/55 L Pulse Oximetry 100 98 Oxygen Delivery Method 11/09/22 13:10 11/09/22 13:15 11/09/22 13:15 Pulse Rate 99 H 100 H Respiratory Rate 32 H 32 H Blood Pressure 87/57 L Pulse Oximetry 99 99 Oxygen Delivery Method 11/09/22 13:20 11/09/22 13:30 11/09/22 13:30 Pulse Rate 100 H 101 H Respiratory Rate 31 H 32 H Blood Pressure 89/61 L Pulse Oximetry 99 98 Oxygen Delivery Method 11/09/22 13:40 11/09/22 13:45 11/09/22 13:45 Pulse Rate 103 H 104 H Respiratory Rate 45 H 45 H Blood Pressure 108/71 Pulse Oximetry 96 97 Oxygen Delivery Method 11/09/22 13:50 11/09/22 14:00 11/09/22 14:00 Pulse Rate 105 H 103 H Respiratory Rate 32 H 31 H Blood Pressure 97/56 L Pulse Oximetry 98 98 Oxygen Delivery Method 11/09/22 14:10 11/09/22 14:15 11/09/22 14:15 Pulse Rate 104 H 104 H Respiratory Rate 31 H 28 H Blood Pressure 93/62 Pulse Oximetry 99 99 Oxygen Delivery Method 11/09/22 14:20 11/09/22 14:30 11/09/22 14:30 Pulse Rate 103 H 106 H Respiratory Rate 32 H 30 H Blood Pressure 91/58 L Pulse Oximetry 99 100 Oxygen Delivery Method 11/09/22 14:40 11/09/22 14:45 11/09/22 14:45 Pulse Rate 105 H 106 H Respiratory Rate 32 H 29 H Blood Pressure 100/63 Pulse Oximetry 100 99 Oxygen Delivery Method 11/09/22 14:50 11/09/22 15:00 11/09/22 15:00 Pulse Rate 106 H 108 H Respiratory Rate 31 H 32 H Blood Pressure 102/67 Pulse Oximetry 99 98 Oxygen Delivery Method 11/09/22 15:10 11/09/22 15:15 11/09/22 15:15 Pulse Rate 107 H 108 H Respiratory Rate 30 H 30 H Blood Pressure 94/63 Pulse Oximetry 97 97 Oxygen Delivery Method 11/09/22 15:20 11/09/22 15:30 11/09/22 15:30 Pulse Rate 109 H 109 H Respiratory Rate 32 H 32 H Blood Pressure 96/64 Pulse Oximetry 97 97 Oxygen Delivery Method 11/09/22 15:40 11/09/22 15:45 11/09/22 15:45 Pulse Rate 109 H 107 H Respiratory Rate 32 H 34 H Blood Pressure 84/55 L Pulse Oximetry 96 94 Oxygen Delivery Method 11/09/22 15:50 11/09/22 16:00 11/09/22 16:00 Pulse Rate 109 H 110 H Respiratory Rate 31 H 33 H Blood Pressure 101/64 Pulse Oximetry 95 93 Oxygen Delivery Method 11/09/22 16:10 11/09/22 16:15 11/09/22 16:15 Pulse Rate 109 H 109 H Respiratory Rate 31 H 33 H Blood Pressure 92/58 L Pulse Oximetry 93 93 Oxygen Delivery Method 11/09/22 16:20 11/09/22 16:30 11/09/22 16:30 Pulse Rate 108 H 108 H Respiratory Rate 32 H 33 H Blood Pressure 89/59 L Pulse Oximetry 93 94 Oxygen Delivery Method Fraction of Inspired Oxygen 94 Oxygen Delivery Method Mechanical Ventilation Oxygen Flow Rate 3 Narrative Exam Narrative: GEN:? Ill-appearing middle-aged male, intubated, sedated HEENT:NC, Face symmetric CHEST: Respiratory excursions symmetric, coarse but CTAB CV: RRR, no M/R/G ABD: Soft, NT/ND, BT present in all 4 quadrants, no organomegaly or masses EXTR: warm, well perfused, no C/C/E SKIN: warm and dry, no rash NEURO:? Intubated, sedated Objective Labs Result Diagrams: 11/09/22 05:00 11/09/22 05:00 Labs: Laboratory Results - last 24 hr 11/09/22 11/09/22 11/09/22 05:00 05:00 05:00 WBC 10.6 RBC 3.31 L Hgb 9.6 L Hct 28.1 L MCV 85.0 MCH 28.9 MCHC 34.0 RDW 14.3 Plt Count 639 H Neut % (Auto) 66.7 Lymph % (Auto) 14.7 L [place] % (Auto) 10.4 Eos % (Auto) 7.0 H Baso % (Auto) 1.2 Neut # (Auto) 7100 H Lymph # (Auto) 1600 [place] # (Auto) 1100 H Eos # (Auto) 700 H Baso # (Auto) 100 Sodium 135 L Potassium 3.8 Chloride 99 Carbon Dioxide 28 BUN 17 Creatinine 0.73 Estimated GFR > 60 BUN/Creatinine Ratio 23.3 H Glucose 115 H Calcium 8.4 Magnesium 2.0 Total Bilirubin 0.3 AST 33 ALT 16 Alkaline Phosphatase 115 Total Protein 7.2 Albumin 3.1 L Globulin 4.1 Albumin/Globulin Ratio 0.8 L Vancomycin Trough 11/09/22 11:30 WBC RBC Hgb Hct MCV MCH MCHC RDW Plt Count Neut % (Auto) Lymph % (Auto) [place] % (Auto) Eos % (Auto) Baso % (Auto) Neut # (Auto) Lymph # (Auto) [place] # (Auto) Eos # (Auto) Baso # (Auto) Sodium Potassium Chloride Carbon Dioxide BUN Creatinine Estimated GFR BUN/Creatinine Ratio Glucose Calcium Magnesium Total Bilirubin AST ALT Alkaline Phosphatase Total Protein Albumin Globulin Albumin/Globulin Ratio Vancomycin Trough 21.7 H* [facility] Medical History Acid reflux Alcohol abuse Ankle pain Ankylosing spondylitis (1985) Ankylosing spondylitis Chronic back pain Foot pain Fracture cervical vertebra-closed GERD (gastroesophageal reflux disease) Hypertension Hypertension Muscle pain Tobacco use disorder, moderate, in early remission Surgical History History of open reduction and internal fixation (ORIF) procedure (2005) History of tonsillectomy Status post colonoscopy (2012) Status post incision and drainage Family History Father No problems noted. Mother Cancer Other Alcoholism Colorectal cancer Social History Smoking Status: Current every day smoker Assessment & Plan Assessment & Plan narrative: 1. Acute hypoxic respiratory failure patient remains intubated/mechanically ventilated.? Continue ventilator support.? Tele repairer recreational vehicle plans to reduce sedation today to determine if patient can pass a spontaneous breathing trial.? Patient remains on Zosyn and azithromycin for pneumonia.? As noted, IV furosemide was held today due to hypotension. 2. Bilateral bacterial pneumonia [place] to be superinfection in the setting of influenza A.? As noted, he remains on Zosyn and azithromycin. 3. Influenza A Positive test on October 30. At this point, influenza has likely resolved. 4. Alcohol dependence with withdrawal Patient is presently on a Precedex drip.? He remains on Librium, folic acid, and multivitamin. 5. Heroin dependence Continuing supportive care. 6. Possible septic shock with acute end-organ failure patient presented with pneumonia, lactic acidosis, leukocytosis, tachycardia, and hypoxia.? Symptoms and signs of sepsis have overall improved. It is felt his ongoing hypotension is likely secondary to sedation. 7. Acute metabolic encephalopathy Likely multifactorial from infection, sepsis, alcohol withdrawal. 8. Essential hypertension On metoprolol on an outpatient basis.? This has been held in the setting of ongoing difficulties with hypotension and need for pressors 9. Protein calorie malnutrition Remains on tube feeds. 10. Normocytic anemia Hemoglobin was 10.8 on admission. Currently stable at 9.6. 11. Thrombocytosis Platelets are 639. Likely reactive in nature. Code status Full Prophylaxis Lovenox Disposition ICU. Ongoing management per repairer recreational vehicle Time Spent With Patient Critical Care time: I spent a total of [] minutes of critical care time on this patient's care today; this time is exclusive of procedural time. Quality VTE Deep Vein Thrombosis/Pulmonary Embolism Present on Admission: No
--- NOTE | 2022-11-09 20:08 | P.ICUMDRN_ITS ---
- Date Patient Seen: 11/09/22 :: This patient was seen via real time interactive two-way audiovisual telecommunic ation. Note: Discussed with RN on MDR. Patient taken off Fentanyl today, Precedex weaned down to 0.4. However did not awaken appropriately during an SAT; failed an SBT as a result. Levo @ 3. Continued minimal vent settings. Abx on going. TFs at goal. Plan to hold Precedex early this morning to allow several hours off sedation before attempting SAT/SBT in morning. If patient not arousable at that time, would recommend further diagnostic workup of encephalopathy.
[2022-11-09] MEDS: dexmedeTOMIDine in 0.9 % NaCL 400 MCG/100 ML PLAST..BAG 6.2 MCG IV (22:33)
[2022-11-10] VITALS (86 sets, daily range): BP systolic 85–123; BP diastolic 54–84; PULSE 93–125; RESP 20–38; TEMP 36.6–37.2; O2SAT 93–997
[2022-11-10] MEDS: NOREPINEPHRINE BITARTRATE/D5W 4 MG/250 ML PLAST..BAG 11.25 MG IV ×2 (02:08→23:36)
[2022-11-10 03:48] LABS: Add Manual Diff / Slide Review NO; Basophils Absolute Auto 100 /uL (0-100); Basophils Percent Auto 1.1 % (0-2); Eosinophils Absolute Auto 500 /uL (0-450); Eosinophils Percent Auto 4.7 % (2-4); Hematocrit 28.8 % (41-53); Hemoglobin 9.7 g/dL (13.5-17.5); Lymphocytes Absolute Auto 1400 /uL (1100-4500); Lymphocytes Percent Auto 14.3 % (25-40); Mean Corpuscular HGB Conc 33.6 % (30-36); Mean Corpuscular Hemoglobin 28.8 PG (26-34); Mean Corpuscular Volume 85.5 fL (80-100); Monocytes Absolute Auto 900 /uL (0-900); Monocytes Percent Auto 9.4 % (3-14); Neutrophils Absolute Auto 6900 /uL (1500-7000); Neutrophils Percent Auto 70.5 % (50-75); Platelet Count 689 X10^3/uL (150-400); Red Blood Cell Count 3.37 X10^6/uL (4.5-5.9); Red Cell Distribution Width 14.4 % (11.6-14.8); White Blood Cell Count 9.8 X10^3/uL (4.5-11.0)
[2022-11-10 03:56] LABS: Alanine Aminotransferase 17 IU/L (<50); Albumin 3.1 g/dL (3.5-5.0); Albumin Globulin Ratio 0.8 (1.0-2.8); Alkaline Phosphatase 134 U/L (38-126); Aspartate Aminotransferase 31 IU/L (17-59); BUN Creatinine Ratio 23.3 (6-22); Bilirubin Total 0.3 mg/dL (0.2-1.3); Blood Urea Nitrogen 17 mg/dL (9-20); Calcium 8.5 mg/dL (8.4-10.2); Carbon Dioxide 25 mmol/L (22-32); Chloride 107 mmol/L (98-107); Estimated Glomerular Filt Rate > 60 mL/min (>60); Globulin 4.1 g/dL (1.7-4.1); Glucose 113 mg/dL (80-110); HEMOLYSIS < 15 (0-50); Potassium 3.8 mmol/L (3.4-5.1); Sodium 139 mmol/L (137-145); Total Protein 7.2 g/dL (6.3-8.2)
[2022-11-10] MEDS: VANCOMYCIN 1,000 MG/200 ML PIGGYBACK 200 MG IV (03:56)
[2022-11-10] MEDS: PIPERACILLIN/TAZO 3.375 GM in SODIUM CHLORIDE 0.9% 100 ML IV ×2 (04:47→11:53)
--- NOTE | 2022-11-10 05:02 | PC.NURSE ---
Patient suctioned and turned with O2 sats decreasing to 85%. FIO2 increased to 40% and O2 sats slowly increasing to 96%. FIO2 slowly weaned back down to 30%. Precedex decreased at 0500 to 0.2, and will be paused at 0600.
[2022-11-10] MEDS: CHLORHEXIDINE GLUCONATE 15 ML CUP PO ×4 (05:30→23:30)
--- NOTE | 2022-11-10 08:09 | PM.PN.1 ---
Subjective Subjective Date Patient Seen: 11/10/22 Interval history: He is seen today follow-up his respiratory failure, pneumonia deafness. He is discussed with Dr. George, the on-duty ventilated rib fitter and with his daughter Kelsea Milan. The issue at hand is that he has failed weaning trials for several days now so needs to be put into a planning stage for long-term tracheostomy weaning. business services sales representative will begin working on placement and surgery has been contacted and will plan to place a tracheostomy on Saturday, in 2 days. He is on Glucerna 0G-tube feeding. The hemoglobin Is 9.7 with platelets of 689. The vanco trough is 21.7. He has been on vancomycin and Zosyn for longer than 7 days so those will be stopped per discussion with pharmacy and with his ventilated rib fitter. The heart rate continues to be elevated at 119 with a respiratory rate of 35 during weaning trials. Exam Vital Signs (past 8 hours): - 11/10/22 01:00 11/10/22 02:00 11/10/22 03:00 Temperature Pulse Rate 93 H 98 H 100 H Respiratory Rate 31 H 33 H 33 H Blood Pressure 85/54 L 91/59 L 87/60 L Pulse Oximetry 93 96 96 Oxygen Delivery Method Fraction of Inspired Oxygen 0.30 0.30 11/10/22 04:00 11/10/22 05:00 11/10/22 06:00 Temperature 98.8 F Pulse Rate 101 H 100 H 104 H Respiratory Rate 34 H 32 H 34 H Blood Pressure 91/60 94/60 104/61 Pulse Oximetry 94 97 95 Oxygen Delivery Method Fraction of Inspired Oxygen 0.30 0.30 0.30 11/10/22 07:00 11/10/22 07:00 11/10/22 07:10 Temperature 98.9 F Pulse Rate 113 H 117 H Respiratory Rate 36 H 34 H Blood Pressure 100/61 Pulse Oximetry 96 97 Oxygen Delivery Method Fraction of Inspired Oxygen 11/10/22 07:20 11/10/22 07:43 Temperature Pulse Rate 119 H Respiratory Rate 35 H Blood Pressure Pulse Oximetry 97 Oxygen Delivery Method Mechanical Ventilation Fraction of Inspired Oxygen Fraction of Inspired Oxygen 0.30 Oxygen Delivery Method Mechanical Ventilation Oxygen Flow Rate 3 Narrative Exam Narrative: He is lightly sedated. He does not follow exam instructions. Heart is tachycardic with a regular rhythm. Lungs are clear but diminished bilaterally. Extremities have no ankle edema. Objective Labs Result Diagrams: 11/10/22 03:30 11/10/22 03:30 Labs: Laboratory Results - last 24 hr 11/09/22 11/10/22 11/10/22 11:30 03:30 03:30 WBC 9.8 RBC 3.37 L Hgb 9.7 L Hct 28.8 L MCV 85.5 MCH 28.8 MCHC 33.6 RDW 14.4 Plt Count 689 H Neut % (Auto) 70.5 Lymph % (Auto) 14.3 L [place] % (Auto) 9.4 Eos % (Auto) 4.7 H Baso % (Auto) 1.1 Neut # (Auto) 6900 Lymph # (Auto) 1400 [place] # (Auto) 900 Eos # (Auto) 500 H Baso # (Auto) 100 Sodium 139 Potassium 3.8 Chloride 107 Carbon Dioxide 25 BUN 17 Creatinine 0.73 Estimated GFR > 60 BUN/Creatinine Ratio 23.3 H Glucose 113 H Calcium 8.5 Total Bilirubin 0.3 AST 31 ALT 17 Alkaline Phosphatase 134 H Total Protein 7.2 Albumin 3.1 L Globulin 4.1 Albumin/Globulin Ratio 0.8 L Vancomycin Trough 21.7 H* [facility] Medical History Acid reflux Alcohol abuse Ankle pain Ankylosing spondylitis (1985) Ankylosing spondylitis Chronic back pain Foot pain Fracture cervical vertebra-closed GERD (gastroesophageal reflux disease) Hypertension Hypertension Muscle pain Tobacco use disorder, moderate, in early remission Surgical History History of open reduction and internal fixation (ORIF) procedure (2005) History of tonsillectomy Status post colonoscopy (2012) Status post incision and drainage Family History Father No problems noted. Mother Cancer Other Alcoholism Colorectal cancer Social History Smoking Status: Current every day smoker Assessment & Plan Assessment & Plan narrative: 1. Acute hypoxic respiratory failure He remains intubated/mechanically ventilated.? Continue ventilator support.? He has failed several trials of ventilator weaning. The Zosyn and vancomycin for pneumonia will be stopped today 11/10.? As noted, IV furosemide was held yesterday due to hypotension. General Surgery will be consulted and will likely place a tracheostomy on Monday 11/12, with a plan for eventual transfer to LTAC for weaning. His NOK, Kelsea Milan, was contacted and approved this plan. The 2. Bilateral bacterial pneumonia [place] to be superinfection in the setting of influenza A.? After discussion with ventilated rib fitter and pharmacist the appropriate duration of antibiotics has been reached and those will be stopped on 11/10. 3. Influenza A Positive test on October 30.? At this point, influenza has resolved.? 4. Alcohol dependence with withdrawal Patient is presently on a Precedex drip.? He remains on Librium, folic acid, and multivitamin. 5. Heroin dependence Continuing supportive care. 6. Possible septic shock with acute end-organ failure patient presented with pneumonia, lactic acidosis, leukocytosis, tachycardia, and hypoxia.? Symptoms and signs of sepsis have overall improved.? It is felt his ongoing hypotension is likely secondary to sedation. 7. Acute metabolic encephalopathy Likely multifactorial from infection, sepsis, alcohol withdrawal. 8. Essential hypertension On metoprolol on an outpatient basis.? This has been held in the setting of ongoing difficulties with hypotension and need for pressors. 9. Protein calorie malnutrition Remains on tube feed Glucerna per OGT. 10. Normocytic anemia Hemoglobin was 10.8 on admission.? Currently stable at 9.6. 11. Thrombocytosis Platelets are 689.? Likely reactive in nature. Code status Full Prophylaxis Lovenox Disposition ICU.? Ongoing management per ventilated rib fitter Time Spent With Patient Critical Care time: I spent a total of [] minutes of critical care time on this patient's care today; this time is exclusive of procedural time. Quality VTE Deep Vein Thrombosis/Pulmonary Embolism Present on Admission: No
[2022-11-10] MEDS: MULTIVITAMIN 1 TABLET 1 TAB PO (08:47)
[2022-11-10] MEDS: FOLIC ACID 1 MG TABLET PO (08:47)
[2022-11-10] MEDS: PANTOPRAZOLE 40 MG VIAL IV ×2 (08:48→20:28)
[2022-11-10] MEDS: FUROSEMIDE 40 MG/4 ML VIAL IV (08:48)
[2022-11-10] MEDS: ENOXAPARIN 40 MG/0.4 ML SYRINGE SUBCUT (08:48)
[2022-11-10] MEDS: GABAPENTIN 300 MG CAPSULE TUBE ×3 (08:50→20:28)
[2022-11-10] MEDS: THIAMINE 100 MG in SODIUM CHLORIDE 0.9% 100 ML 404 MG IV (08:52)
--- NOTE | 2022-11-10 09:33 | P.TELICUPN_ITS ---
Subjective Subjective IF CAMERA ACTIVATED, patient seen via real-time interactive audiovisual communication: Camera activated Date Patient Seen: 11/10/22 Consent obtained for tele-electrical tests supervisor care: Yes Patient Location: ICU Provider location (State): [place] Other participants/roles: Bedside RN and RT Interval history: No acute issues overnight. Off all sedation. RASS -1. Able to follow commands but extremely weak and decondition. Failed SBT due to tachypnea and low TV. On levophed 3 mcg. Current Medications Current Medications Medications: Home Medications ketorolac 0.4 % eye drops 1 drp OPHTH QID #5 mL 06/20/17 [Rx Confirmed 10/13/18] indomethacin 50 mg capsule 50 mg PO TIDP PRN pain, moderate #90 caps 10/13/18 [Rx] amitriptyline 25 mg tablet 25 mg PO BEDTIME #30 tabs 01/07/19 [Rx] ondansetron 4 mg disintegrating tablet 4 mg PO TID-QID PRN nausea and vomiting #10 tabs 02/24/19 [Rx] cyclobenzaprine 10 mg tablet 10 mg PO TIDP #90 tabs 11/19/19 [Rx] gabapentin 300 mg capsule (Neurontin) 300 mg PO Q8H #90 caps 11/19/19 [Rx] metoprolol succinate 50 mg tablet,extended release 24 hr (Toprol XL) 50 mg PO BID #60 tabs 11/19/19 [Rx] omeprazole 20 mg capsule,delayed release 20 mg PO QDAY #30 caps 11/19/19 [Rx] doxycycline hyclate 100 mg capsule 100 mg PO BID #14 caps 05/03/22 [Rx] Visit Medications (administered) Generic Name Dose Route Start Last Admin Trade Name Freq PRN Reason Stop Dose Admin Chlordiazepoxide HCl 50 mg 11/04/22 12:00 11/10/22 05:30 Chlordiazepoxide 25 Mg Capsule PO Not Given Q6HR JYOTI Chlorhexidine Gluconate 15 ml 10/31/22 18:00 11/10/22 05:30 Chlorhexidine Gluconate 15 Ml Cup PO 15 ml Q6HR JYOTI Administration Enoxaparin Sodium 40 mg 11/06/22 12:00 11/10/22 08:48 Enoxaparin 40 Mg/0.4 Ml Syringe SUBCUT 40 mg DAILY JYOTI Administration Folic Acid 1 mg 10/31/22 09:00 11/10/22 08:47 Folic Acid 1 Mg Tablet PO 1 mg DAILY JYOTI Administration Furosemide 40 mg 11/07/22 09:00 11/10/22 08:48 Furosemide 40 Mg/4 Ml Vial IV 40 mg DAILY JYOTI Administration Gabapentin 300 mg 11/06/22 09:45 11/10/22 08:50 Gabapentin 300 Mg Capsule TUBE 300 mg TID JYOTI Administration Haloperidol 5 mg 11/04/22 09:36 11/04/22 10:18 Haloperidol 5 Mg/Ml Vial IV 5 mg Q2HR PRN Administration Agitation Thiamine HCl 100 mg/ Sodium 101 mls @ 404 mls/hr 10/31/22 09:30 11/10/22 08:52 Chloride IV 404 mls/hr DAILY JYOTI Administration Piperacillin Sod/Tazobactam 100 mls @ 25 mls/hr 10/31/22 12:45 11/10/22 04:47 Sod 3.375 gm/ Sodium Chloride IV 25 mls/hr Q8H JYOTI Administration Sodium Chloride 500 mls @ 1,000 mls/hr 10/31/22 14:03 10/31/22 18:19 Normal Saline 0.9% IV Infused BOLUS PRN Infusion Fluid replacement Propofol 1,000 mg in 100 mls @ 1.965 mls/hr 10/31/22 14:15 11/08/22 16:23 Propofol IV 0 mcg/kg/min TITRATE JYOTI 0 mls/hr Titration Protocol 5 MCG/KG/MIN Fentanyl 1,000 mcg/ Dextrose 250 mls @ 10.798 mls/hr 11/04/22 22:45 11/09/22 09:53 IV 0 mcg/kg/hr TITRATE JYOTI 0 mls/hr Titration Protocol 0.7 MCG/KG/HR NOREPINEPHRINE BITARTRATE/D5W 4 mg in 250 mls @ 30 mls/hr 11/04/22 22:51 11/10/22 02:08 Levophed IV 3 mcg/min TITRATE JYOTI 11.25 mls/hr Administration Protocol 8 MCG/MIN dexmedeTOMIDine in 0.9 % NaCL 400 mcg in 100 mls @ 2.875 mls/hr 11/06/22 10:15 11/10/22 05:35 Precedex IV 0 mcg/kg/hr TITRATE JYOTI 0 mls/hr Titration Protocol 0.2 MCG/KG/HR Vancomycin HCl 1,000 mg in 200 mls @ 200 mls/hr 11/09/22 16:00 11/10/22 05:01 Vancomycin IV Infused Q12H JYOTI Infusion Lorazepam 0 mg 10/31/22 00:42 11/04/22 14:03 Lorazepam 2 Mg/Ml Inj IV 2 mg CIWAPRN PRN Administration Alcohol Withdrawal/n/V Protocol Lorazepam 1 mg 11/04/22 09:37 11/04/22 15:20 Lorazepam 2 Mg/Ml Inj IV 1 mg Q2HR PRN Administration Anxiety Morphine Sulfate 1 mg 11/04/22 09:38 11/04/22 13:36 Morphine 2 Mg/Ml Inj IV 1 mg Q2HR PRN Administration Pain, Moderate (4-6) Multivitamins 1 tab 10/31/22 09:00 11/10/22 08:47 Multivitamin 1 Tablet PO 1 tab DAILY JYOTI Administration Nicotine 7 mg 10/31/22 09:00 11/09/22 09:10 Nicotine 7 Mg Patch TOP 7 mg DAILY JYOTI Administration Ondansetron HCl 4 mg 10/31/22 01:07 11/04/22 12:41 Ondansetron 4 Mg/2 Ml Inj IV 4 mg Q4HR PRN Administration Nausea And Vomiting Pantoprazole Sodium 40 mg 10/31/22 21:00 11/10/22 08:48 Pantoprazole 40 Mg Vial IV 40 mg BID JYOTI Administration Objective Ventilator Parameters: Ventilator Settings FiO2 30 CPAP Pressure Amount 30 RT Vent Frequency 18 Ventilator Tidal Volume 390 Exhaled Vt/kg IBW 7.0 Positive End Expiratory 5 Pressure Inspiratory Phase Time 0.75 I:E Ratio 1:3.4 Patient Position HOB >= 30 degrees Labs Result Diagrams: 11/10/22 03:30 11/10/22 03:30 Labs: Laboratory Results - last 24 hr 11/09/22 11/10/22 11/10/22 11:30 03:30 03:30 WBC 9.8 RBC 3.37 L Hgb 9.7 L Hct 28.8 L MCV 85.5 MCH 28.8 MCHC 33.6 RDW 14.4 Plt Count 689 H Neut % (Auto) 70.5 Lymph % (Auto) 14.3 L [place] % (Auto) 9.4 Eos % (Auto) 4.7 H Baso % (Auto) 1.1 Neut # (Auto) 6900 Lymph # (Auto) 1400 [place] # (Auto) 900 Eos # (Auto) 500 H Baso # (Auto) 100 Sodium 139 Potassium 3.8 Chloride 107 Carbon Dioxide 25 BUN 17 Creatinine 0.73 Estimated GFR > 60 BUN/Creatinine Ratio 23.3 H Glucose 113 H Calcium 8.5 Total Bilirubin 0.3 AST 31 ALT 17 Alkaline Phosphatase 134 H Total Protein 7.2 Albumin 3.1 L Globulin 4.1 Albumin/Globulin Ratio 0.8 L Vancomycin Trough 21.7 H* Exam Vital Signs (past 8 hours): - 11/10/22 02:00 11/10/22 03:00 11/10/22 04:00 Temperature 98.8 F Pulse Rate 98 H 100 H 101 H Respiratory Rate 33 H 33 H 34 H Blood Pressure 91/59 L 87/60 L 91/60 Pulse Oximetry 96 96 94 Oxygen Delivery Method Fraction of Inspired Oxygen 0.30 0.30 11/10/22 05:00 11/10/22 06:00 11/10/22 07:00 Temperature Pulse Rate 100 H 104 H Respiratory Rate 32 H 34 H Blood Pressure 94/60 104/61 100/61 Pulse Oximetry 97 95 Oxygen Delivery Method Fraction of Inspired Oxygen 0.30 0.30 11/10/22 07:00 11/10/22 07:10 11/10/22 07:20 Temperature 98.9 F Pulse Rate 113 H 117 H 119 H Respiratory Rate 36 H 34 H 35 H Blood Pressure Pulse Oximetry 96 97 97 Oxygen Delivery Method Fraction of Inspired Oxygen 11/10/22 07:43 Temperature Pulse Rate Respiratory Rate Blood Pressure Pulse Oximetry Oxygen Delivery Method Mechanical Ventilation Fraction of Inspired Oxygen Fraction of Inspired Oxygen 0.30 Oxygen Delivery Method Mechanical Ventilation Oxygen Flow Rate 3 Narrative Exam Narrative: Intubated. Able to follow simple commands. Quality TeleICU VTE Deep Vein Thrombosis/Pulmonary Embolism Present on Admission: No Assessment & Plan Assessment & Plan narrative: NEURO: # Acute encephalopathy -- Improving slowly -- On precedex gtt -- RASS goal -1 to 0 -- Avoid BZD -- Needs PT/OT consultation -- Seek early mobility -- Daily CAM ICU RESP: # Acute hypoxemia respiratory failure -- Secondary to severe decondition and weakness -- Failed SBT due to tachypnea and low TV -- Cont gentle diuresis -- Recommend transfer to tertiary care for potential tracheostomy if unable to pass SBT in the next 3 days -- HOB elevation -- Aspiration precaution -- PT/OT consultation -- Strict I/O -- Goal SpO2 > 88% -- Daily SAT and SBT CVS: # Shock -- Secondary to positive pressure and sedation -- MAP goal > 65 -- On levophed ID: # Concern for sepsis -- Cx negatgive to date -- Recommend stopping vancomycin -- Cont zoysn X 7 days HEME: # Anemia -- Secodnary to ACD -- No reported signs of overt bleed -- Daily CBC -- Goal Hb > 7 ENDO: -- BS < 180 D/w bedside RN and RT. Time Spent With Patient Critical Care time: I spent a total of 38 minutes of critical care time on this patient's care today; this time is exclusive of procedural time.
[2022-11-10] MEDS: NICOTINE 7 MG PATCH TOP (10:01)
--- NOTE | 2022-11-10 11:02 | DIET.CONS2 ---
Dietary Inpatient Consultation Note Admission Date: 10/30/2022 20:22 Canvass Manager recommends pt get trached secondary to prolonged ventilator dependence. Recc transitioning pt to 16h pump assisted enteral feeds via NG of Glucerna 1.5 at 68mL/h. Consider PEG placement if pt not expected to be safe for POs in the next 2-3w. Diet: 11/05/22 Dinner Tube Feeding Diet Diet Modifications: TF Supplement type: Glucerna 1.5 leroy TF mode of delivery: Continuous Starting flow rate mL/hr: 10 Flow rate goal mL/hr: 45 Titration Schedule to reach Goal Rate: increase by 10mL q8h as tolerated Max total daily volume in mL: 1,680 Free fluid: 100 Free Water Frequency: Q4H Comment: fluids to be managed by hospitalist/full charge bookkeeper 11/06/22 Breakfast Courtesy Sukhjinder (Peds, comfort care) Diet Modifications: Electronically Signed by: Pati Parikh 11/10/22 11:02 Clinical Dietitian [address] [address]
[2022-11-10] MEDS: chlordiazePOXIDE 25 MG CAPSULE 50 MG TUBE ×3 (11:53→23:30)
[2022-11-10] MEDS: dexmedeTOMIDine in 0.9 % NaCL 400 MCG/100 ML PLAST..BAG 5.75 MCG IV (13:31)
--- NOTE | 2022-11-10 13:45 | CM.DPNOTE ---
DCP Note According to Dr Hall; patient may be a candidate for trach placement at [facility] and transfer to [facility] for dedicated intermodal truck driver management of trach Medical team investigating this as an option; need to review w/surgery team This CM team will continue to follow closely as medical plan of care unfolds; can send referral to [facility] if requested by attending physicians JW
--- NOTE | 2022-11-10 20:22 | PM.ICURNDS ---
- Date Patient Seen: 11/10/22 Time Patient Seen: 20:22 :: This patient was seen via real time interactive two-way audiovisual telecommunication. Note: Completed multidisciplinary night round. Patient remains intubated and is extremely weak. He continues to failed SBT due to high RSBI score from tachypnea and low tidal volume. D/w primary team and plan for tracheostomy/peg tube placement on 11/12 as patient will require half-way vent wean. D/w RN at bedside.
[2022-11-11] VITALS (90 sets, daily range): BP systolic 88–114; BP diastolic 49–76; PULSE 97–120; RESP 26–38; TEMP 36.6–37.1; O2SAT 90–100
[2022-11-11] MEDS: dexmedeTOMIDine in 0.9 % NaCL 400 MCG/100 ML PLAST..BAG 5.75 MCG IV (03:45)
[2022-11-11 04:35] LABS: Alanine Aminotransferase 23 IU/L (<50); Albumin 3.4 g/dL (3.5-5.0); Albumin Globulin Ratio 0.8 (1.0-2.8); Alkaline Phosphatase 114 U/L (38-126); Aspartate Aminotransferase 43 IU/L (17-59); BUN Creatinine Ratio 28.9 (6-22); Bilirubin Total 0.3 mg/dL (0.2-1.3); Blood Urea Nitrogen 22 mg/dL (9-20); Carbon Dioxide 26 mmol/L (22-32); Chloride 109 mmol/L (98-107); Estimated Glomerular Filt Rate > 60 mL/min (>60); Globulin 4.5 g/dL (1.7-4.1); Glucose 112 mg/dL (80-110); HEMOLYSIS < 15 (0-50); Sodium 142 mmol/L (137-145); Total Protein 7.9 g/dL (6.3-8.2)
[2022-11-11 04:45] LABS: Add Manual Diff / Slide Review NO; Basophils Absolute Auto 300 /uL (0-100); Basophils Percent Auto 2.9 % (0-2); Eosinophils Absolute Auto 300 /uL (0-450); Eosinophils Percent Auto 3.2 % (2-4); Hematocrit 30.9 % (41-53); Hemoglobin 10.5 g/dL (13.5-17.5); Lymphocytes Absolute Auto 1700 /uL (1100-4500); Lymphocytes Percent Auto 15.9 % (25-40); Mean Corpuscular HGB Conc 34.1 % (30-36); Mean Corpuscular Hemoglobin 29.1 PG (26-34); Mean Corpuscular Volume 85.2 fL (80-100); Monocytes Absolute Auto 900 /uL (0-900); Monocytes Percent Auto 8.4 % (3-14); Neutrophils Absolute Auto 7300 /uL (1500-7000); Neutrophils Percent Auto 69.6 % (50-75); Platelet Count 769 X10^3/uL (150-400); Red Blood Cell Count 3.62 X10^6/uL (4.5-5.9); Red Cell Distribution Width 14.7 % (11.6-14.8); White Blood Cell Count 10.5 X10^3/uL (4.5-11.0)
[2022-11-11] MEDS: chlordiazePOXIDE 25 MG CAPSULE 50 MG TUBE ×3 (05:37→17:28)
[2022-11-11] MEDS: CHLORHEXIDINE GLUCONATE 15 ML CUP PO ×3 (05:37→17:28)
--- NOTE | 2022-11-11 05:53 | PC.NURSE ---
Patient minimally responsive to verbal commands. Spoke with family about upcoming surgery, and explained the need for it. Reassured family that patient still receiving all the necessary care.
[2022-11-11 06:48] LABS: Platelet Estimate Increased on smear
[2022-11-11 06:49] LABS: Anisocytosis 1+
[2022-11-11] MEDS: ENOXAPARIN 40 MG/0.4 ML SYRINGE SUBCUT (08:00)
[2022-11-11] MEDS: GABAPENTIN 300 MG CAPSULE TUBE ×3 (08:01→20:14)
[2022-11-11] MEDS: FUROSEMIDE 40 MG/4 ML VIAL IV (08:01)
[2022-11-11] MEDS: PANTOPRAZOLE 40 MG VIAL IV ×2 (08:01→20:14)
[2022-11-11] MEDS: FOLIC ACID 1 MG TABLET PO (08:01)
[2022-11-11] MEDS: MULTIVITAMIN 1 TABLET 1 TAB PO (08:02)
[2022-11-11] MEDS: NICOTINE 7 MG PATCH TOP (09:22)
--- NOTE | 2022-11-11 10:45 | P.CONS_ITS ---
History of Present Illness Consult details Date Patient Seen: 11/11/22 Chief complaint: abdominal pain Reason for consult: Requested Trach and PEG Narrative: 61-year-old man history of alcoholism and heroin abuse who presented with pneumonia 10/31/22. He was intubated shortly after admission and has remained so the entirety of his hospital stay, now 1.5 weeks Vent settings are minimal FiO2 30%, peep 5 but despite this he has failed repeated spontaneous breathing trials. He is failing breathing she trial secondary to poor respiratory effort. ICU is requesting tracheostomy and percutaneous feeding tube placement in order a fist to facilitate transfer the patient to a long-term care facility. Patient's daughter who is the DPOA is in agreement with this plan. Meds Home Medications and Allergies Home Medications Medication Instructions Recorded Confirmed Type ketorolac 0.4 % eye drops 1 drp OPHTH QID #5 mL 06/20/17 10/13/18 Rx indomethacin 50 mg capsule 50 mg PO TIDP PRN pain, moderate 10/13/18 Rx #90 caps amitriptyline 25 mg tablet 25 mg PO BEDTIME #30 tabs 01/07/19 Rx ondansetron 4 mg disintegrating 4 mg PO TID-QID PRN nausea and 02/24/19 Rx tablet vomiting #10 tabs cyclobenzaprine 10 mg tablet 10 mg PO TIDP #90 tabs 11/19/19 Rx gabapentin 300 mg capsule 300 mg PO Q8H #90 caps 11/19/19 Rx (Neurontin) metoprolol succinate 50 mg 50 mg PO BID #60 tabs 11/19/19 Rx tablet,extended release 24 hr (Toprol XL) omeprazole 20 mg capsule,delayed 20 mg PO QDAY #30 caps 11/19/19 Rx release doxycycline hyclate 100 mg capsule 100 mg PO BID #14 caps 05/03/22 Rx Allergies Allergy/AdvReac Type Severity Reaction Status Date / Time No Known Drug Allergies Allergy Verified 05/03/22 12:04 Exam Vital Signs (past 8 hours): - 11/11/22 03:00 11/11/22 04:00 11/11/22 05:00 Temperature 98.2 F Pulse Rate 101 H 97 H 97 H Respiratory Rate 29 H 27 H 27 H Blood Pressure 92/61 89/62 L 96/67 Pulse Oximetry 98 97 98 Oxygen Delivery Method Fraction of Inspired Oxygen 0.30 0.30 0.30 11/11/22 06:00 11/11/22 07:00 11/11/22 07:00 Temperature Pulse Rate 100 H 104 H Respiratory Rate 27 H 28 H Blood Pressure 90/63 96/66 Pulse Oximetry 98 98 Oxygen Delivery Method Fraction of Inspired Oxygen 0.30 11/11/22 07:10 11/11/22 07:20 11/11/22 07:30 Temperature 98.7 F Pulse Rate 106 H 104 H 103 H Respiratory Rate 31 H 30 H 33 H Blood Pressure Pulse Oximetry 98 98 95 Oxygen Delivery Method Fraction of Inspired Oxygen 11/11/22 08:00 Temperature Pulse Rate Respiratory Rate Blood Pressure Pulse Oximetry Oxygen Delivery Method Mechanical Ventilation Fraction of Inspired Oxygen Fraction of Inspired Oxygen 0.30 Oxygen Delivery Method Mechanical Ventilation Oxygen Flow Rate 3 Narrative Exam Narrative: General elderly man sedated but arousable to voice Chest mechanically ventilated FiO2 30% peep 5 Cardiac regular sinus rhythm Extremities warm well perfused Objective Labs Result Diagrams: 11/11/22 04:00 11/11/22 04:00 Labs: Laboratory Results - last 24 hr 11/11/22 11/11/22 04:00 04:00 WBC 10.5 RBC 3.62 L Hgb 10.5 L Hct 30.9 L MCV 85.2 MCH 29.1 MCHC 34.1 RDW 14.7 Plt Count 769 H Neut % (Auto) 69.6 Lymph % (Auto) 15.9 L [place] % (Auto) 8.4 Eos % (Auto) 3.2 Baso % (Auto) 2.9 H Neut # (Auto) 7300 H Lymph # (Auto) 1700 [place] # (Auto) 900 Eos # (Auto) 300 Baso # (Auto) 300 H Platelet Estimate Increased on smear RBC Morphology See below Anisocytosis 1+ H Sodium 142 Potassium 4.0 Chloride 109 H Carbon Dioxide 26 BUN 22 H Creatinine 0.76 Estimated GFR > 60 BUN/Creatinine Ratio 28.9 H Glucose 112 H Calcium 9.0 Total Bilirubin 0.3 AST 43 ALT 23 Alkaline Phosphatase 114 Total Protein 7.9 Albumin 3.4 L Globulin 4.5 H Albumin/Globulin Ratio 0.8 L PFSH Medical History (Updated 11/11/22 @ 10:54 by Corey Masters MD) Acid reflux Alcohol abuse Ankle pain Ankylosing spondylitis (1985) Ankylosing spondylitis Chronic back pain Foot pain Fracture cervical vertebra-closed GERD (gastroesophageal reflux disease) Hypertension Hypertension Muscle pain Tobacco use disorder, moderate, in early remission Surgical History History of open reduction and internal fixation (ORIF) procedure (2005) History of tonsillectomy Status post colonoscopy (2012) Status post incision and drainage Family History Father No problems noted. Mother Cancer Other Alcoholism Colorectal cancer Tobacco & Substance Use Smoking Status: Current every day smoker Assessment & Plan Assessment and plan (1) Respiratory failure requiring intubation: Status: Acute Assessment & Plan narrative: 61-year-old man with a history of severe alcoholism and heroin abuse who has been intubated for 1.5 weeks secondary to respiratory failure. Initially had pneumonia has been unable to pass a spontaneous breathing trial secondary to po or respiratory effort despite minimal vent settings. Tracheostomy and percutaneous feeding tube been requested. -hold Lovenox and tube feeds after midnight -add on for surgery 11/12 Time Spent With Patient Critical Care time: I spent a total of [] minutes of critical care time on this patient's care today; this time is exclusive of procedural time.
--- NOTE | 2022-11-11 15:10 | P.PN_ITS ---
Subjective Subjective Date Patient Seen: 11/11/22 Interval history: He is seen today follow-up his respiratory failure, pneumonia deafness. awaiting tracheostomy and PEG placement on saturday as he has failed multiple breathing trials. Exam Vital Signs (past 8 hours): - 11/11/22 07:20 11/11/22 07:30 11/11/22 08:00 Temperature 98.7 F Pulse Rate 104 H 103 H Respiratory Rate 30 H 33 H Blood Pressure Pulse Oximetry 98 95 Oxygen Delivery Method Mechanical Ventilation 11/11/22 12:00 11/11/22 07:40 11/11/22 07:50 Temperature Pulse Rate 105 H 104 H Respiratory Rate 31 H 32 H Blood Pressure Pulse Oximetry 97 96 Oxygen Delivery Method Mechanical Ventilation 11/11/22 08:00 11/11/22 08:00 11/11/22 08:10 Temperature Pulse Rate 106 H 107 H Respiratory Rate 31 H 32 H Blood Pressure 103/76 Pulse Oximetry 96 98 Oxygen Delivery Method 11/11/22 08:20 11/11/22 08:30 11/11/22 08:40 Temperature Pulse Rate 109 H 109 H 109 H Respiratory Rate 31 H 31 H 30 H Blood Pressure Pulse Oximetry 96 97 97 Oxygen Delivery Method 11/11/22 08:50 11/11/22 09:00 11/11/22 09:00 Temperature Pulse Rate 113 H 114 H Respiratory Rate 30 H 30 H Blood Pressure 110/74 Pulse Oximetry 97 97 Oxygen Delivery Method 11/11/22 09:10 11/11/22 09:20 11/11/22 09:30 Temperature Pulse Rate 114 H 112 H 117 H Respiratory Rate 33 H 32 H 34 H Blood Pressure Pulse Oximetry 97 100 98 Oxygen Delivery Method 11/11/22 09:40 11/11/22 09:42 11/11/22 09:42 Temperature Pulse Rate 113 H 112 H Respiratory Rate 32 H 31 H Blood Pressure 88/49 L Pulse Oximetry 98 97 Oxygen Delivery Method 11/11/22 09:50 11/11/22 10:00 11/11/22 10:00 Temperature Pulse Rate 116 H 116 H Respiratory Rate 31 H 33 H Blood Pressure 97/65 Pulse Oximetry 99 99 Oxygen Delivery Method 11/11/22 10:10 11/11/22 10:20 11/11/22 10:30 Temperature Pulse Rate 118 H 117 H 117 H Respiratory Rate 33 H 33 H 32 H Blood Pressure Pulse Oximetry 99 99 99 Oxygen Delivery Method 11/11/22 10:40 11/11/22 10:50 11/11/22 11:00 Temperature Pulse Rate 117 H 119 H Respiratory Rate 36 H 38 H Blood Pressure 103/76 Pulse Oximetry 99 99 Oxygen Delivery Method 11/11/22 11:00 11/11/22 11:10 11/11/22 11:20 Temperature Pulse Rate 120 H 118 H 115 H Respiratory Rate 35 H 33 H 33 H Blood Pressure Pulse Oximetry 98 99 94 Oxygen Delivery Method 11/11/22 11:30 11/11/22 11:40 11/11/22 11:50 Temperature Pulse Rate 117 H 118 H 115 H Respiratory Rate 32 H 32 H 30 H Blood Pressure Pulse Oximetry 99 99 100 Oxygen Delivery Method 11/11/22 12:00 11/11/22 12:01 11/11/22 12:01 Temperature Pulse Rate 116 H 116 H Respiratory Rate 34 H 33 H Blood Pressure 114/69 Pulse Oximetry 98 99 Oxygen Delivery Method 11/11/22 12:10 11/11/22 12:20 11/11/22 12:30 Temperature Pulse Rate 117 H 117 H 117 H Respiratory Rate 33 H 33 H 33 H Blood Pressure Pulse Oximetry 99 99 99 Oxygen Delivery Method 11/11/22 12:40 11/11/22 12:50 11/11/22 13:00 Temperature Pulse Rate 117 H 114 H Respiratory Rate 31 H 32 H Blood Pressure 112/76 Pulse Oximetry 99 99 Oxygen Delivery Method 11/11/22 13:00 11/11/22 13:10 11/11/22 13:20 Temperature 98.8 F Pulse Rate 117 H 116 H 119 H Respiratory Rate 35 H 34 H Blood Pressure Pulse Oximetry 93 92 98 Oxygen Delivery Method Fraction of Inspired Oxygen 0.30 Oxygen Delivery Method Mechanical Ventilation Oxygen Flow Rate 3 Narrative Exam Narrative: GEN:? Ill-appearing middle-aged male, intubated, lightly sedated follows simple commands. HEENT:NC, Face symmetric CHEST: Respiratory excursions symmetric, coarse but CTAB CV: RRR, no M/R/G ABD: Soft, NT/ND, BT present in all 4 quadrants, no organomegaly or masses EXTR: warm, well perfused, no C/C/E SKIN: warm and dry, no rash NEURO:? Intubated, lightly sedated, follows simple commands. Objective Labs Result Diagrams: 12/18/22 04:00 11/11/22 04:00 Labs: Laboratory Results - last 24 hr 11/11/22 11/11/22 04:00 04:00 WBC 10.5 RBC 3.62 L Hgb 10.5 L Hct 30.9 L MCV 85.2 MCH 29.1 MCHC 34.1 RDW 14.7 Plt Count 769 H Neut % (Auto) 69.6 Lymph % (Auto) 15.9 L [place] % (Auto) 8.4 Eos % (Auto) 3.2 Baso % (Auto) 2.9 H Neut # (Auto) 7300 H Lymph # (Auto) 1700 [place] # (Auto) 900 Eos # (Auto) 300 Baso # (Auto) 300 H Platelet Estimate Increased on smear RBC Morphology See below Anisocytosis 1+ H Sodium 142 Potassium 4.0 Chloride 109 H Carbon Dioxide 26 BUN 22 H Creatinine 0.76 Estimated GFR > 60 BUN/Creatinine Ratio 28.9 H Glucose 112 H Calcium 9.0 Total Bilirubin 0.3 AST 43 ALT 23 Alkaline Phosphatase 114 Total Protein 7.9 Albumin 3.4 L Globulin 4.5 H Albumin/Globulin Ratio 0.8 L PFSH Medical History (Updated 11/11/22 @ 10:54 by Corey Masters MD) Acid reflux Alcohol abuse Ankle pain Ankylosing spondylitis (1985) Ankylosing spondylitis Chronic back pain Foot pain Fracture cervical vertebra-closed GERD (gastroesophageal reflux disease) Hypertension Hypertension Muscle pain Tobacco use disorder, moderate, in early remission Surgical History History of open reduction and internal fixation (ORIF) procedure (2005) History of tonsillectomy Status post colonoscopy (2012) Status post incision and drainage Family History Father No problems noted. Mother Cancer Other Alcoholism Colorectal cancer Social History Smoking Status: Current every day smoker Assessment & Plan Assessment & Plan narrative: 1. Acute hypoxic respiratory failure He remains intubated/mechanically ventilated.? Continue ventilator support.? He has failed several trials of ventilator weaning. The Zosyn and vancomycin for pneumonia stopped 11/10 after completing therapy.? As noted, IV furosemide was held due to hypotension. General Surgery consulted and will likely place a tr acheostomy on Monday 11/12, with a plan for eventual transfer to LTAC for weaning. 2. Bilateral bacterial pneumonia [place] to be superinfection in the setting of influenza A.?Now completed antibiotic therapies on 11/10. 3. Influenza A Positive test on October 30.? At this point, influenza has resolved.? 4. Alcohol dependence with withdrawal Patient is presently on a Precedex drip.? He remains on Librium as well, folic acid, and multivitamin. Continue to wean from librium. 5. Heroin dependence Continuing supportive care. 6. septic shock with acute end-organ failure patient presented with pneumonia, lactic acidosis, leukocytosis, tachycardia, and hypoxia.? Symptoms and signs of sepsis have overall improved.? It is felt his ongoing hypotension is likely secondary to sedation at this time and antibiotics have been discontinued as discussed above. 7. Acute metabolic encephalopathy Likely multifactorial from infection, sepsis, alcohol withdrawal. 8. Essential hypertension On metoprolol on an outpatient basis.? This has been held in the setting of ongoing difficulties with hypotension and need for pressors. 9. Protein calorie malnutrition Remains on tube feed Glucerna per OGT. 10. Normocytic anemia Hemoglobin was 10.8 on admission.? Currently stable at 9.6. 11. Thrombocytosis Platelets are 689.? Likely reactive in nature. Code status Full Prophylaxis Lovenox Disposition ICU. Likely will need LTAC for continued weaning. I spent 30 minutes providing critical care management this patient. This excludes time spent in performing separately billed procedures. Time Spent With Patient Critical Care time: I spent a total of [] minutes of critical care time on this patient's care today; this time is exclusive of procedural time. Quality VTE Deep Vein Thrombosis/Pulmonary Embolism Present on Admission: No
--- NOTE | 2022-11-11 15:24 | P.TELICUPN_ITS ---
Subjective Subjective IF CAMERA ACTIVATED, patient seen via real-time interactive audiovisual communication: Camera activated Consent obtained for tele-recooperer care: Yes Patient Location: ICU Provider location (State): [place] Other participants/roles: RN Interval history: Pt remains weak, and encephaloahic, p[ending trach and peg tomorrow Current Medications Current Medications Medications: Home Medications ketorolac 0.4 % eye drops 1 drp OPHTH QID #5 mL 06/20/17 [Rx Confirmed 10/13/18] indomethacin 50 mg capsule 50 mg PO TIDP PRN pain, moderate #90 caps 10/13/18 [Rx] amitriptyline 25 mg tablet 25 mg PO BEDTIME #30 tabs 01/07/19 [Rx] ondansetron 4 mg disintegrating tablet 4 mg PO TID-QID PRN nausea and vomiting #10 tabs 02/24/19 [Rx] cyclobenzaprine 10 mg tablet 10 mg PO TIDP #90 tabs 11/19/19 [Rx] gabapentin 300 mg capsule (Neurontin) 300 mg PO Q8H #90 caps 11/19/19 [Rx] metoprolol succinate 50 mg tablet,extended release 24 hr (Toprol XL) 50 mg PO BID #60 tabs 11/19/19 [Rx] omeprazole 20 mg capsule,delayed release 20 mg PO QDAY #30 caps 11/19/19 [Rx] doxycycline hyclate 100 mg capsule 100 mg PO BID #14 caps 05/03/22 [Rx] Visit Medications (administered) Generic Name Dose Route Start Last Admin Trade Name Freq PRN Reason Stop Dose Admin Chlordiazepoxide HCl 50 mg 11/10/22 12:00 11/11/22 11:26 Chlordiazepoxide 25 Mg Capsule TUBE 50 mg Q6HR JYOTI Administration Chlorhexidine Gluconate 15 ml 10/31/22 18:00 11/11/22 11:27 Chlorhexidine Gluconate 15 Ml Cup PO 15 ml Q6HR JYOTI Administration Enoxaparin Sodium 40 mg 11/06/22 12:00 11/11/22 08:00 Enoxaparin 40 Mg/0.4 Ml Syringe SUBCUT 40 mg DAILY JYOTI Administration Folic Acid 1 mg 10/31/22 09:00 11/11/22 08:01 Folic Acid 1 Mg Tablet PO 1 mg DAILY JYOTI Administration Furosemide 40 mg 11/07/22 09:00 11/11/22 08:01 Furosemide 40 Mg/4 Ml Vial IV 40 mg DAILY JYOTI Administration Gabapentin 300 mg 11/06/22 09:45 11/11/22 08:01 Gabapentin 300 Mg Capsule TUBE 300 mg TID JYOTI Administration Haloperidol 5 mg 11/04/22 09:36 11/04/22 10:18 Haloperidol 5 Mg/Ml Vial IV 5 mg Q2HR PRN Administration Agitation Sodium Chloride 500 mls @ 1,000 mls/hr 10/31/22 14:03 10/31/22 18:19 Normal Saline 0.9% IV Infused BOLUS PRN Infusion Fluid replacement NOREPINEPHRINE BITARTRATE/D5W 4 mg in 250 mls @ 30 mls/hr 11/04/22 22:51 11/10/22 23:36 Levophed IV 3 mcg/min TITRATE JYOTI 11.25 mls/hr Administration Protocol 8 MCG/MIN dexmedeTOMIDine in 0.9 % NaCL 400 mcg in 100 mls @ 2.875 mls/hr 11/06/22 10:15 11/11/22 13:31 Precedex IV 0.6 mcg/kg/hr TITRATE JYOTI 8.625 mls/hr Titration Protocol 0.2 MCG/KG/HR Lorazepam 0 mg 10/31/22 00:42 11/04/22 14:03 Lorazepam 2 Mg/Ml Inj IV 2 mg CIWAPRN PRN Administration Alcohol Withdrawal/n/V Protocol Lorazepam 1 mg 11/04/22 09:37 11/04/22 15:20 Lorazepam 2 Mg/Ml Inj IV 1 mg Q2HR PRN Administration Anxiety Morphine Sulfate 1 mg 11/04/22 09:38 11/04/22 13:36 Morphine 2 Mg/Ml Inj IV 1 mg Q2HR PRN Administration Pain, Moderate (4-6) Multivitamins 1 tab 10/31/22 09:00 11/11/22 08:02 Multivitamin 1 Tablet PO 1 tab DAILY JYOTI Administration Nicotine 7 mg 10/31/22 09:00 11/11/22 09:22 Nicotine 7 Mg Patch TOP 7 mg DAILY JYOTI Administration Ondansetron HCl 4 mg 10/31/22 01:07 11/04/22 12:41 Ondansetron 4 Mg/2 Ml Inj IV 4 mg Q4HR PRN Administration Nausea And Vomiting Pantoprazole Sodium 40 mg 10/31/22 21:00 11/11/22 08:01 Pantoprazole 40 Mg Vial IV 40 mg BID JYOTI Administration Objective Ventilator Parameters: Ventilator Settings FiO2 35 CPAP Pressure Amount 30 RT Vent Frequency 18 Ventilator Tidal Volume 390 Exhaled Vt/kg IBW 7.0 Positive End Expiratory 5 Pressure Inspiratory Phase Time 0.75 I:E Ratio 1:3.4 Patient Position HOB >= 30 degrees Labs Result Diagrams: 11/11/22 04:00 11/11/22 04:00 Labs: Laboratory Results - last 24 hr 11/11/22 11/11/22 04:00 04:00 WBC 10.5 RBC 3.62 L Hgb 10.5 L Hct 30.9 L MCV 85.2 MCH 29.1 MCHC 34.1 RDW 14.7 Plt Count 769 H Neut % (Auto) 69.6 Lymph % (Auto) 15.9 L [place] % (Auto) 8.4 Eos % (Auto) 3.2 Baso % (Auto) 2.9 H Neut # (Auto) 7300 H Lymph # (Auto) 1700 [place] # (Auto) 900 Eos # (Auto) 300 Baso # (Auto) 300 H Platelet Estimate Increased on smear RBC Morphology See below Anisocytosis 1+ H Sodium 142 Potassium 4.0 Chloride 109 H Carbon Dioxide 26 BUN 22 H Creatinine 0.76 Estimated GFR > 60 BUN/Creatinine Ratio 28.9 H Glucose 112 H Calcium 9.0 Total Bilirubin 0.3 AST 43 ALT 23 Alkaline Phosphatase 114 Total Protein 7.9 Albumin 3.4 L Globulin 4.5 H Albumin/Globulin Ratio 0.8 L Exam Vital Signs (past 8 hours): - 11/11/22 07:30 11/11/22 08:00 11/11/22 12:00 Temperature 98.7 F Pulse Rate 103 H Respiratory Rate 33 H Blood Pressure Pulse Oximetry 95 Oxygen Delivery Method Mechanical Ventilation Mechanical Ventilation 11/11/22 07:40 11/11/22 07:50 11/11/22 08:00 Temperature Pulse Rate 105 H 104 H Respiratory Rate 31 H 32 H Blood Pressure 103/76 Pulse Oximetry 97 96 Oxygen Delivery Method 11/11/22 08:00 11/11/22 08:10 11/11/22 08:20 Temperature Pulse Rate 106 H 107 H 109 H Respiratory Rate 31 H 32 H 31 H Blood Pressure Pulse Oximetry 96 98 96 Oxygen Delivery Method 11/11/22 08:30 11/11/22 08:40 12/18/22 08:50 Temperature Pulse Rate 109 H 109 H 113 H Respiratory Rate 31 H 30 H 30 H Blood Pressure Pulse Oximetry 97 97 97 Oxygen Delivery Method 11/11/22 09:00 11/11/22 09:00 11/11/22 09:10 Temperature Pulse Rate 114 H 114 H Respiratory Rate 30 H 33 H Blood Pressure 110/74 Pulse Oximetry 97 97 Oxygen Delivery Method 11/11/22 09:20 11/11/22 09:30 11/11/22 09:40 Temperature Pulse Rate 112 H 117 H 113 H Respiratory Rate 32 H 34 H 32 H Blood Pressure Pulse Oximetry 100 98 98 Oxygen Delivery Method 11/11/22 09:42 11/11/22 09:42 11/11/22 09:50 Temperature Pulse Rate 112 H 116 H Respiratory Rate 31 H 31 H Blood Pressure 88/49 L Pulse Oximetry 97 99 Oxygen Delivery Method 11/11/22 10:00 11/11/22 10:00 11/11/22 10:10 Temperature Pulse Rate 116 H 118 H Respiratory Rate 33 H 33 H Blood Pressure 97/65 Pulse Oximetry 99 99 Oxygen Delivery Method 11/11/22 10:20 11/11/22 10:30 11/11/22 10:40 Temperature Pulse Rate 117 H 117 H 117 H Respiratory Rate 33 H 32 H 36 H Blood Pressure Pulse Oximetry 99 99 99 Oxygen Delivery Method 11/11/22 10:50 11/11/22 11:00 11/11/22 11:00 Temperature Pulse Rate 119 H 120 H Respiratory Rate 38 H 35 H Blood Pressure 103/76 Pulse Oximetry 99 98 Oxygen Delivery Method 11/11/22 11:10 11/11/22 11:20 11/11/22 11:30 Temperature Pulse Rate 118 H 115 H 117 H Respiratory Rate 33 H 33 H 32 H Blood Pressure Pulse Oximetry 99 94 99 Oxygen Delivery Method 11/11/22 11:40 11/11/22 11:50 11/11/22 12:00 Temperature Pulse Rate 118 H 115 H 116 H Respiratory Rate 32 H 30 H 34 H Blood Pressure Pulse Oximetry 99 100 98 Oxygen Delivery Method 11/11/22 12:01 11/11/22 12:01 11/11/22 12:10 Temperature Pulse Rate 116 H 117 H Respiratory Rate 33 H 33 H Blood Pressure 114/69 Pulse Oximetry 99 99 Oxygen Delivery Method 11/11/22 12:20 11/11/22 12:30 11/11/22 12:40 Temperature Pulse Rate 117 H 117 H 117 H Respiratory Rate 33 H 33 H 31 H Blood Pressure Pulse Oximetry 99 99 99 Oxygen Delivery Method 11/11/22 12:50 11/11/22 13:00 11/11/22 13:00 Temperature Pulse Rate 114 H 117 H Respiratory Rate 32 H 35 H Blood Pressure 112/76 Pulse Oximetry 99 93 Oxygen Delivery Method 11/11/22 13:10 11/11/22 13:20 Temperature 98.8 F Pulse Rate 116 H 119 H Respiratory Rate 34 H Blood Pressure Pulse Oximetry 92 98 Oxygen Delivery Method Fraction of Inspired Oxygen 0.30 Oxygen Delivery Method Mechanical Ventilation Oxygen Flow Rate 3 Narrative Exam Narrative: surrogate for exam is primary team Quality TeleICU VTE Deep Vein Thrombosis/Pulmonary Embolism Present on Admission: No Assessment & Plan Assessment & Plan narrative: NEURO: # Acute encephalopathy -- Improving slowly -- On precedex gtt -- RASS goal -1 to 0 -- Avoid BZD -- Needs PT/OT consultation -- Seek early mobility -- Daily CAM ICU RESP: # Acute hypoxemia respiratory failure -- Secondary to severe decondition and weakness -- Failed SBT due to tachypnea and low TV -- Cont gentle diuresis -- trach and peg tomorrow -- HOB elevation -- Aspiration precaution -- PT/OT consultation -- Strict I/O -- Goal SpO2 > 88% -- Daily SAT and SBT CVS: # Shock -- Secondary to positive pressure and sedation -- MAP goal > 65 -- On levophed ID: # Concern for sepsis -- Cx negatgive to date -- Recommend stopping vancomycin -- Cont zoysn X 7 days HEME: # Anemia -- Secodnary to ACD -- No reported signs of overt bleed -- Daily CBC -- Goal Hb > 7 ENDO: -- BS < 180 D/w bedside RN and RT. Time Spent With Patient Critical Care time: I spent a total of [] minutes of critical care time on this patient's care tod ay; this time is exclusive of procedural time.
[2022-11-11] MEDS: dexmedeTOMIDine in 0.9 % NaCL 400 MCG/100 ML PLAST..BAG 8.625 MCG IV (16:05)
[2022-11-11] MEDS: NOREPINEPHRINE BITARTRATE/D5W 4 MG/250 ML PLAST..BAG 11.25 MG IV (20:14)
--- NOTE | 2022-11-11 20:44 | PM.ICURNDS ---
- Date Patient Seen: 11/11/22 Time Patient Seen: 20:44 :: This patient was seen via real time interactive two-way audiovisual telecommunication. Note: no acute events pre-op for peg trach npo at midnight, would start maintenace fluid while npo wean pressors as tolerated
[2022-11-11] MEDS: LACTATED RINGERS 1,000 ML 50 ML IV (23:58)
[2022-11-12] VITALS (80 sets, daily range): BP systolic 78–115; BP diastolic 53–74; PULSE 81–115; RESP 20–35; TEMP 36.6–37.2; O2SAT 95–100
[2022-11-12] MEDS: CHLORHEXIDINE GLUCONATE 15 ML CUP PO ×4 (02:37→18:28)
[2022-11-12 04:53] LABS: Add Manual Diff / Slide Review NO; Basophils Absolute Auto 300 /uL (0-100); Basophils Percent Auto 2.5 % (0-2); Eosinophils Absolute Auto 600 /uL (0-450); Eosinophils Percent Auto 4.8 % (2-4); Hematocrit 31.3 % (41-53); Hemoglobin 10.4 g/dL (13.5-17.5); Lymphocytes Absolute Auto 1800 /uL (1100-4500); Lymphocytes Percent Auto 15.4 % (25-40); Mean Corpuscular HGB Conc 33.3 % (30-36); Mean Corpuscular Hemoglobin 28.5 PG (26-34); Mean Corpuscular Volume 85.8 fL (80-100); Monocytes Absolute Auto 1200 /uL (0-900); Monocytes Percent Auto 10.8 % (3-14); Neutrophils Absolute Auto 7600 /uL (1500-7000); Neutrophils Percent Auto 66.5 % (50-75); Platelet Count 686 X10^3/uL (150-400); Red Blood Cell Count 3.65 X10^6/uL (4.5-5.9); White Blood Cell Count 11.4 X10^3/uL (4.5-11.0)
[2022-11-12 05:00] LABS: Alanine Aminotransferase 33 IU/L (<50); Albumin 3.4 g/dL (3.5-5.0); Albumin Globulin Ratio 0.7 (1.0-2.8); Alkaline Phosphatase 117 U/L (38-126); Aspartate Aminotransferase 62 IU/L (17-59); Bilirubin Total 0.3 mg/dL (0.2-1.3); Blood Urea Nitrogen 30 mg/dL (9-20); Calcium 9.1 mg/dL (8.4-10.2); Carbon Dioxide 29 mmol/L (22-32); Chloride 106 mmol/L (98-107); Estimated Glomerular Filt Rate > 60 mL/min (>60); Globulin 4.6 g/dL (1.7-4.1); Glucose 117 mg/dL (80-110); HEMOLYSIS < 15 (0-50); Potassium 4.2 mmol/L (3.4-5.1); Sodium 142 mmol/L (137-145)
[2022-11-12] MEDS: dexmedeTOMIDine in 0.9 % NaCL 400 MCG/100 ML PLAST..BAG 5.75 MCG IV ×2 (05:58→18:29)
[2022-11-12] MEDS: GABAPENTIN 300 MG CAPSULE TUBE ×3 (08:38→20:57)
[2022-11-12] MEDS: PANTOPRAZOLE 40 MG VIAL IV (08:39)
[2022-11-12] MEDS: FOLIC ACID 1 MG TABLET PO (08:39)
[2022-11-12] MEDS: ENOXAPARIN 40 MG/0.4 ML SYRINGE SUBCUT (08:39)
[2022-11-12] MEDS: MULTIVITAMIN 1 TABLET 1 TAB PO (08:39)
[2022-11-12] MEDS: FUROSEMIDE 40 MG/4 ML VIAL IV (08:39)
--- NOTE | 2022-11-12 08:59 | RT ---
POST INITIALIZATION OF SBT, VT IMMEDIATELY DECREASED TO 276 CC'S, AND RR INCREASED TO 46.
--- NOTE | 2022-11-12 09:47 | PM.PN.EICU ---
Subjective Subjective IF CAMERA ACTIVATED, patient seen via real-time interactive audiovisual communication: Camera activated Consent obtained for tele-collet maker care: Yes Patient Location: ICU Provider location (State): [place] Other participants/roles: RN, Pharmacy Subjective Interval history: No acute vents overnight. Pending OR today for Trach/PEG. TFs held. On Levo @ 6, Precedex @ 0.4. Waking up, following commands. Per report, very weak and failing ventilator wean. Current Medications Current Medications Medications: Home Medications ketorolac 0.4 % eye drops 1 drp OPHTH QID #5 mL 06/20/17 [Rx Confirmed 10/13/18] indomethacin 50 mg capsule 50 mg PO TIDP PRN pain, moderate #90 caps 10/13/18 [Rx] amitriptyline 25 mg tablet 25 mg PO BEDTIME #30 tabs 01/07/19 [Rx] ondansetron 4 mg disintegrating tablet 4 mg PO TID-QID PRN nausea and vomiting #10 tabs 02/24/19 [Rx] cyclobenzaprine 10 mg tablet 10 mg PO TIDP #90 tabs 11/19/19 [Rx] gabapentin 300 mg capsule (Neurontin) 300 mg PO Q8H #90 caps 11/19/19 [Rx] metoprolol succinate 50 mg tablet,extended release 24 hr (Toprol XL) 50 mg PO BID #60 tabs 11/19/19 [Rx] omeprazole 20 mg capsule,delayed release 20 mg PO QDAY #30 caps 11/19/19 [Rx] doxycycline hyclate 100 mg capsule 100 mg PO BID #14 caps 05/03/22 [Rx] Visit Medications (administered) Generic Name Dose Route Start Last Admin Trade Name Freq PRN Reason Stop Dose Admin Chlorhexidine Gluconate 15 ml 10/31/22 18:00 11/12/22 06:16 Chlorhexidine Gluconate 15 Ml Cup PO 15 ml Q6HR JYOTI Administration Enoxaparin Sodium 40 mg 11/06/22 12:00 11/12/22 08:39 Enoxaparin 40 Mg/0.4 Ml Syringe SUBCUT 40 mg DAILY JYOTI Administration Folic Acid 1 mg 10/31/22 09:00 11/12/22 08:39 Folic Acid 1 Mg Tablet PO 1 mg DAILY JYOTI Administration Gabapentin 300 mg 11/06/22 09:45 11/12/22 08:38 Gabapentin 300 Mg Capsule TUBE 300 mg TID JYOTI Administration Haloperidol 5 mg 11/04/22 09:36 11/04/22 10:18 Haloperidol 5 Mg/Ml Vial IV 5 mg Q2HR PRN Administration Agitation Sodium Chloride 500 mls @ 1,000 mls/hr 10/31/22 14:03 10/31/22 18:19 Normal Saline 0.9% IV Infused BOLUS PRN Infusion Fluid replacement NOREPINEPHRINE BITARTRATE/D5W 4 mg in 250 mls @ 30 mls/hr 11/04/22 22:51 11/12/22 06:50 Levophed IV 6 mcg/min TITRATE JYOTI 22.5 mls/hr Titration Protocol 8 MCG/MIN dexmedeTOMIDine in 0.9 % NaCL 400 mcg in 100 mls @ 2.875 mls/hr 11/06/22 10:15 11/12/22 05:58 Precedex IV 0.4 mcg/kg/hr TITRATE JYOTI 5.75 mls/hr Administration Protocol 0.2 MCG/KG/HR Lactated Ringer's 1,000 mls @ 50 mls/hr 11/12/22 00:00 11/11/22 23:58 Lactated Ringers IV 50 mls/hr CONT JYOTI Administration Lorazepam 0 mg 10/31/22 00:42 11/04/22 14:03 Lorazepam 2 Mg/Ml Inj IV 2 mg CIWAPRN PRN Administration Alcohol Withdrawal/n/V Protocol Lorazepam 1 mg 11/04/22 09:37 11/04/22 15:20 Lorazepam 2 Mg/Ml Inj IV 1 mg Q2HR PRN Administration Anxiety Morphine Sulfate 1 mg 11/04/22 09:38 11/04/22 13:36 Morphine 2 Mg/Ml Inj IV 1 mg Q2HR PRN Administration Pain, Moderate (4-6) Multivitamins 1 tab 10/31/22 09:00 11/12/22 08:39 Multivitamin 1 Tablet PO 1 tab DAILY JYOTI Administration Nicotine 7 mg 10/31/22 09:00 11/11/22 09:22 Nicotine 7 Mg Patch TOP 7 mg DAILY JYOTI Administration Ondansetron HCl 4 mg 10/31/22 01:07 11/04/22 12:41 Ondansetron 4 Mg/2 Ml Inj IV 4 mg Q4HR PRN Administration Nausea And Vomiting Objective Ventilator Parameters: Ventilator Settings FiO2 35 CPAP Pressure Amount 30 RT Vent Frequency 18 Ventilator Tidal Volume 390 Exhaled Vt/kg IBW 7.0 Positive End Expiratory 5 Pressure Inspiratory Phase Time 0.75 I:E Ratio 1:3.4 Patient Position HOB >= 30 degrees Labs Result Diagrams: 11/12/22 04:44 11/12/22 04:44 Labs: Laboratory Results - last 24 hr 11/12/22 11/12/22 04:44 04:44 WBC 11.4 H RBC 3.65 L Hgb 10.4 L Hct 31.3 L MCV 85.8 MCH 28.5 MCHC 33.3 RDW 15.0 H Plt Count 686 H Neut % (Auto) 66.5 Lymph % (Auto) 15.4 L [place] % (Auto) 10.8 Eos % (Auto) 4.8 H Baso % (Auto) 2.5 H Neut # (Auto) 7600 H Lymph # (Auto) 1800 [place] # (Auto) 1200 H Eos # (Auto) 600 H Baso # (Auto) 300 H Sodium 142 Potassium 4.2 Chloride 106 Carbon Dioxide 29 BUN 30 H Creatinine 0.77 Estimated GFR > 60 BUN/Creatinine Ratio 39.0 H Glucose 117 H Calcium 9.1 Total Bilirubin 0.3 AST 62 H ALT 33 Alkaline Phosphatase 117 Total Protein 8.0 Albumin 3.4 L Globulin 4.6 H Albumin/Globulin Ratio 0.7 L Exam Vital Signs (past 8 hours): - 11/12/22 02:00 11/12/22 03:00 11/12/22 04:16 Temperature 98.9 F Pulse Rate 96 H 81 91 H Respiratory Rate 23 23 23 Blood Pressure 89/59 L 91/55 L 90/53 L Pulse Oximetry 100 100 99 Oxygen Delivery Method Fraction of Inspired Oxygen 0.30 0.30 0.30 11/12/22 04:00 11/12/22 05:00 11/12/22 06:00 Temperature Pulse Rate 92 H 92 H Respiratory Rate 23 24 Blood Pressure 88/55 L 88/53 L Pulse Oximetry 100 99 Oxygen Delivery Method Mechanical Ventilation Fraction of Inspired Oxygen 0.30 0.30 11/12/22 07:00 11/12/22 07:00 11/12/22 07:10 Temperature Pulse Rate 93 H 93 H Respiratory Rate 25 H 26 H Blood Pressure 96/59 L Pulse Oximetry 100 100 Oxygen Delivery Method Fraction of Inspired Oxygen 11/12/22 07:15 11/12/22 07:15 11/12/22 07:20 Temperature Pulse Rate 94 H 95 H Respiratory Rate 24 23 Blood Pressure 91/58 L Pulse Oximetry 100 100 Oxygen Delivery Method Fraction of Inspired Oxygen 11/12/22 07:30 11/12/22 07:30 11/12/22 07:40 Temperature Pulse Rate 96 H 96 H Respiratory Rate 23 25 H Blood Pressure 91/59 L Pulse Oximetry 100 100 Oxygen Delivery Method Fraction of Inspired Oxygen 11/12/22 07:45 11/12/22 07:45 11/12/22 07:50 Temperature Pulse Rate 93 H 95 H Respiratory Rate 23 24 Blood Pressure 93/61 Pulse Oximetry 100 100 Oxygen Delivery Method Fraction of Inspired Oxygen 11/12/22 08:00 11/12/22 08:00 11/12/22 08:10 Temperature Pulse Rate 96 H 92 H Respiratory Rate 25 H 23 Blood Pressure 91/62 Pulse Oximetry 100 100 Oxygen Delivery Method Fraction of Inspired Oxygen 11/12/22 08:15 11/12/22 08:15 11/12/22 08:20 Temperature Pulse Rate 95 H 94 H Respiratory Rate 26 H 23 Blood Pressure 94/59 L Pulse Oximetry 100 100 Oxygen Delivery Method Fraction of Inspired Oxygen 11/12/22 08:30 11/12/22 08:30 11/12/22 08:45 Temperature Pulse Rate 93 H Respiratory Rate 27 H Blood Pressure 96/64 Pulse Oximetry 100 95 Oxygen Delivery Method Fraction of Inspired Oxygen 11/12/22 08:00 Temperature 98.1 F Pulse Rate Respiratory Rate Blood Pressure Pulse Oximetry Oxygen Delivery Method Fraction of Inspired Oxygen Fraction of Inspired Oxygen 0.30 Oxygen Delivery Method Mechanical Ventilation Oxygen Flow Rate 3 Narrative Exam Narrative: Patient RASS 0. Awakens, follows commands (gives thumbs up). On vent. Continues on Levo @ 6. Other VS are WNL. Quality TeleICU VTE Deep Vein Thrombosis/Pulmonary Embolism Present on Admission: No Assessment & Plan Assessment & Plan narrative: NEURO: # Acute encephalopathy, previous ETOH withdrawal that has improved -- Start wean of Libirum, discussed with pharmacy will decrease from 50 q6H to 50 q8h today -- On precedex gtt, low dose -- Once Librium weaned, would also start wean of Gabapentin -- RASS goal -1 to 0 -- Avoid BZD -- Once trach/peg complete, recommend PT/OT, mobility -- Daily CAM ICU RESP: # Acute hypoxemic respiratory failure -- Secondary to severe deconditioning and weakness -- Plan for trach and peg today -- HOB elevation -- Aspiration precaution -- PT/OT consultation -- Goal SpO2 > 88% -- Daily SAT and SBT CVS: # Shock -- Secondary to positive pressure and sedation, perhaps over diuresis given minimal sedation. PEEP minimal @ 5. -- MAP goal > 65 -- On levophed -- If unable to get off Levophed would recommend repeat TTE given increasing requirements yet decreasing sedation GI -- TFs held for OR, restart when peg cleared by surgery -- Decrease PPI BID to QD -- Continue multivitamins Renal # Volume Overload, improved -- Hold daily IV Lasix -- Once TFs are resumed after OR, stop mIVF -- Consider spot-dosing Lasix ID: # Concern for sepsis, pneumonia, influenza. Resolved. Has completed a course of Zosyn -- Not currently on antibiotics HEME: # Anemia -- Secondary to critical illness. No e/o bleed at this time -- Daily CBC -- Goal Hb > 7 ENDO: -- BS < 180 D/w bedside RN and Pharmacy Time Spent With Patient Critical Care time: I spent a total of [35] minutes of critical care time on this patient's care today; this time is exclusive of procedural time.
[2022-11-12] MEDS: NICOTINE 7 MG PATCH TOP (10:22)
[2022-11-12] MEDS: NOREPINEPHRINE BITARTRATE/D5W 4 MG/250 ML PLAST..BAG 22.5 MG IV ×2 (10:32→20:56)
[2022-11-12] MEDS: chlordiazePOXIDE 25 MG CAPSULE 50 MG TUBE (11:05)
[2022-11-12 12:16] LABS: COVID19 -Nasal RAPID Negative (Negative)
--- NOTE | 2022-11-12 15:35 | CM.DPC ---
DCP Cont: Per MD, pt to have trach/PEG placement this afternoon around 1415 and remains still quite sick with little progress. Per [facility] [employer] admissions Deborah, they cannot accept pt with his straight Medicaid insurance. TA left msg with Deborah on other possible facility options for trach/PEG and awaiting a call back. TA called [facility] who can only take established trachs that have been capped and not needed for regular use and therefore cannot take a new trach patient. [facility]. SW attempted to Google LTAC facilities in [facility] and only showing [facility] at this time. SW attempted to call Medicaid to inquire about LTAC options or Trach/Peg facilities but was on hold for a long period of time. Local [facility] office might need to be attempted tomorrow towards assist in placement for pt. VARGAS Cutler
--- NOTE | 2022-11-12 16:30 | P.PN_ITS ---
Subjective Subjective Date Patient Seen: 11/12/22 Interval history: No acute events overnight. Continues to be a bit more alert but weak and tired. Not tolerating spontaneous trials currently. Plan for trach/peg today with surgery. Exam Vital Signs (past 8 hours): - 11/12/22 08:45 11/12/22 08:40 11/12/22 08:45 Pulse Rate 96 H Respiratory Rate 20 Blood Pressure 107/69 Pulse Oximetry 95 98 Oxygen Delivery Method 11/12/22 08:45 11/12/22 08:50 11/12/22 09:00 Pulse Rate 91 H 99 H Respiratory Rate 30 H 31 H Blood Pressure 115/55 L Pulse Oximetry 100 100 Oxygen Delivery Method 11/12/22 09:00 11/12/22 09:10 11/12/22 09:15 Pulse Rate 101 H 98 H Respiratory Rate 25 H 23 Blood Pressure 103/61 Pulse Oximetry 100 100 Oxygen Delivery Method 11/12/22 09:15 11/12/22 09:20 11/12/22 09:30 Pulse Rate 99 H 99 H Respiratory Rate 25 H 25 H Blood Pressure 100/62 Pulse Oximetry 100 100 Oxygen Delivery Method 11/12/22 09:30 11/12/22 09:40 11/12/22 09:45 Pulse Rate 101 H 101 H Respiratory Rate 29 H 31 H Blood Pressure 99/65 Pulse Oximetry 100 99 Oxygen Delivery Method 11/12/22 09:45 11/12/22 09:50 11/12/22 10:00 Pulse Rate 101 H 100 H Respiratory Rate 29 H 30 H Blood Pressure 101/63 Pulse Oximetry 99 97 Oxygen Delivery Method 11/12/22 10:00 11/12/22 10:10 11/12/22 10:15 Pulse Rate 104 H 103 H Respiratory Rate 31 H 28 H Blood Pressure 83/55 L Pulse Oximetry 100 99 Oxygen Delivery Method 11/12/22 10:15 11/12/22 10:20 11/12/22 10:30 Pulse Rate 103 H 106 H Respiratory Rate 32 H 27 H Blood Pressure 88/62 L Pulse Oximetry 99 99 Oxygen Delivery Method 11/12/22 10:30 11/12/22 10:40 11/12/22 10:45 Pulse Rate 104 H 105 H 103 H Respiratory Rate 29 H 26 H 27 H Blood Pressure Pulse Oximetry 99 100 100 Oxygen Delivery Method 11/12/22 10:45 11/12/22 10:50 11/12/22 11:00 Pulse Rate 104 H 106 H Respiratory Rate 29 H 30 H Blood Pressure 94/62 Pulse Oximetry 100 99 Oxygen Delivery Method 11/12/22 11:01 11/12/22 11:01 11/12/22 11:10 Pulse Rate 109 H 107 H Respiratory Rate 32 H 33 H Blood Pressure 94/62 Pulse Oximetry 99 100 Oxygen Delivery Method 11/12/22 11:15 11/12/22 11:15 11/12/22 11:20 Pulse Rate 105 H 105 H Respiratory Rate 35 H Blood Pressure 97/66 Pulse Oximetry 100 100 Oxygen Delivery Method 11/12/22 11:30 11/12/22 11:30 11/12/22 12:00 Pulse Rate 106 H Respiratory Rate 27 H Blood Pressure 95/64 Pulse Oximetry 100 Oxygen Delivery Method Mechanical Ventilation 11/12/22 11:40 11/12/22 11:45 11/12/22 11:45 Pulse Rate 106 H 107 H Respiratory Rate 31 H 29 H Blood Pressure 100/68 Pulse Oximetry 100 99 Oxygen Delivery Method 11/12/22 11:50 11/12/22 12:00 11/12/22 12:00 Pulse Rate 103 H 101 H Respiratory Rate 33 H 31 H Blood Pressure 95/60 Pulse Oximetry 99 99 Oxygen Delivery Method 11/12/22 12:10 11/12/22 12:15 11/12/22 12:15 Pulse Rate 101 H 104 H Respiratory Rate 26 H 31 H Blood Pressure 96/59 L Pulse Oximetry 99 100 Oxygen Delivery Method 11/12/22 12:20 11/12/22 12:30 11/12/22 12:31 Pulse Rate 108 H 107 H Respiratory Rate 30 H 30 H Blood Pressure 104/66 Pulse Oximetry 100 100 Oxygen Delivery Method 11/12/22 12:31 11/12/22 12:40 11/12/22 12:45 Pulse Rate 108 H 105 H 107 H Respiratory Rate 31 H 27 H 31 H Blood Pressure Pulse Oximetry 100 100 100 Oxygen Delivery Method 11/12/22 12:45 11/12/22 12:50 11/12/22 13:00 Pulse Rate 106 H Respiratory Rate 33 H Blood Pressure 104/69 90/54 L Pulse Oximetry 100 Oxygen Delivery Method 11/12/22 13:00 11/12/22 13:10 11/12/22 13:15 Pulse Rate 105 H 105 H Respiratory Rate 33 H 28 H Blood Pressure 103/65 Pulse Oximetry 100 100 Oxygen Delivery Method 11/12/22 13:15 11/12/22 13:20 11/12/22 13:30 Pulse Rate 109 H 109 H 109 H Respiratory Rate 32 H 28 H 29 H Blood Pressure Pulse Oximetry 100 100 100 Oxygen Delivery Method 11/12/22 13:31 11/12/22 13:31 11/12/22 13:40 Pulse Rate 110 H 108 H Respiratory Rate 29 H 32 H Blood Pressure 102/68 Pulse Oximetry 100 100 Oxygen Delivery Method 11/12/22 13:45 11/12/22 13:45 11/12/22 13:50 Pulse Rate 106 H 107 H Respiratory Rate 31 H 33 H Blood Pressure 99/67 Pulse Oximetry 100 100 Oxygen Delivery Method 11/12/22 14:00 11/12/22 14:00 11/12/22 14:10 Pulse Rate 105 H 110 H Respiratory Rate 32 H 28 H Blood Pressure 99/67 Pulse Oximetry 100 100 Oxygen Delivery Method 11/12/22 16:00 Pulse Rate Respiratory Rate Blood Pressure Pulse Oximetry Oxygen Delivery Method Mechanical Ventilation Fraction of Inspired Oxygen 0.30 Oxygen Delivery Method Mechanical Ventilation Oxygen Flow Rate 3 Narrative Exam Narrative: GEN:? Ill-appearing middle-aged male, intubated, lightly sedated follows simple commands. HEENT:NC, Face symmetric CHEST: Respiratory excursions symmetric, coarse but CTAB CV: RRR, no M/R/G ABD: Soft, NT/ND, BT present in all 4 quadrants, no organomegaly or masses EXTR: warm, well perfused, no C/C/E SKIN: warm and dry, no rash NEURO:? Intubated, lightly sedated, follows simple commands. Objective Labs Result Diagrams: 11/12/22 04:44 11/12/22 04:44 Labs: Laboratory Results - last 24 hr 11/12/22 11/12/22 11/12/22 04:44 04:44 10:45 WBC 11.4 H RBC 3.65 L Hgb 10.4 L Hct 31.3 L MCV 85.8 MCH 28.5 MCHC 33.3 RDW 15.0 H Plt Count 686 H Neut % (Auto) 66.5 Lymph % (Auto) 15.4 L [place] % (Auto) 10.8 Eos % (Auto) 4.8 H Baso % (Auto) 2.5 H Neut # (Auto) 7600 H Lymph # (Auto) 1800 [place] # (Auto) 1200 H Eos # (Auto) 600 H Baso # (Auto) 300 H Sodium 142 Potassium 4.2 Chloride 106 Carbon Dioxide 29 BUN 30 H Creatinine 0.77 Estimated GFR > 60 BUN/Creatinine Ratio 39.0 H Glucose 117 H Calcium 9.1 Total Bilirubin 0.3 AST 62 H ALT 33 Alkaline Phosphatase 117 Total Protein 8.0 Albumin 3.4 L Globulin 4.6 H Albumin/Globulin Ratio 0.7 L SARS-CoV-2 (PCR) Blood Type O Positive Antibody Screen Negative 11/12/22 11:00 WBC RBC Hgb Hct MCV MCH MCHC RDW Plt Count Neut % (Auto) Lymph % (Auto) [place] % (Auto) Eos % (Auto) Baso % (Auto) Neut # (Auto) Lymph # (Auto) [place] # (Auto) Eos # (Auto) Baso # (Auto) Sodium Potassium Chloride Carbon Dioxide BUN Creatinine Estimated GFR BUN/Creatinine Ratio Glucose Calcium Total Bilirubin AST ALT Alkaline Phosphatase Total Protein Albumin Globulin Albumin/Globulin Ratio SARS-CoV-2 (PCR) Negative Blood Type Antibody Screen [facility] Medical History (Updated 11/11/22 @ 10:54 by Corey Masters MD) Acid reflux Alcohol abuse Ankle pain Ankylosing spondylitis (1985) Ankylosing spondylitis Chronic back pain Foot pain Fracture cervical vertebra-closed GERD (gastroesophageal reflux disease) Hypertension Hypertension Muscle pain Tobacco use disorder, moderate, in early remission Surgical History History of open reduction and internal fixation (ORIF) procedure (2005) History of tonsillectomy Status post colonoscopy (2012) Status post incision and drainage Family History Father No problems noted. Mother Cancer Other Alcoholism Colorectal cancer Social History Smoking Status: Current every day smoker Assessment & Plan Assessment & Plan narrative: 1. Acute hypoxic respiratory failure He remains intubated/mechanically ventilated.? Continue ventilator support.? He has failed several trials of ventilator weaning. The Zosyn and vancomycin for pneumonia stopped 11/10 after completing therapy.? As noted, IV furosemide was held due to hypotension. General Surgery consulted and will likely place a tracheostomy on Monday 11/12, with a plan for eventual transfer to LTAC for weaning. 2. Bilateral bacterial pneumonia [place] to be superinfection in the setting of influenza A.?Now completed antibiotic therapies on 11/10. 3. Influenza A Positive test on October 30.? At this point, influenza has resolved.? 4. Alcohol dependence with withdrawal Patient is presently on a Precedex drip.? He remains on Librium as well, folic acid, and multivitamin. Continue to wean from librium. 5. Heroin dependence Continuing supportive care. 6. septic shock with acute end-organ failure patient presented with pneumonia, lactic acidosis, leukocytosis, tachycardia, a nd hypoxia.? Symptoms and signs of sepsis have overall improved.? It is felt his ongoing hypotension is likely secondary to sedation at this time and antibiotics have been discontinued as discussed above. He remains on levophed. Lasix was started for possible volume overload, stopped today may help wean from pressors. 7. Acute metabolic encephalopathy Likely multifactorial from infection, sepsis, alcohol withdrawal. 8. Essential hypertension On metoprolol on an outpatient basis.? This has been held in the setting of ongoing difficulties with hypotension and need for pressors. 9. Protein calorie malnutrition Remains on tube feed Glucerna per OGT. 10. Normocytic anemia Hemoglobin was 10.8 on admission.? Currently stable at 9.6. 11. Thrombocytosis Platelets are 689.? Likely reactive in nature. Code status Full Prophylaxis Lovenox Disposition ICU. Likely will need LTAC for continued weaning. I spent 30 minutes providing critical care management this patient. This excludes time spent in performing separately billed procedures. Time Spent With Patient Critical Care time: I spent a total of [] minutes of critical care time on this patient's care today; this time is exclusive of procedural time. Quality VTE Deep Vein Thrombosis/Pulmonary Embolism Present on Admission: No
[2022-11-12] MEDS: chlordiazePOXIDE 10 MG CAPSULE 50 MG TUBE (18:29)
--- NOTE | 2022-11-12 20:48 | PM.ICURNDS ---
- :: This patient was seen via real time interactive two-way audiovisual telecommunication. pt remians substanially deconditioned. plan for trah and peg tomorrow, trend abg, sbt/sat
[2022-11-12] MEDS: ACETAMINOPHEN SUSP 650 MG/20.3 ML UDC TUBE (20:57)
[2022-11-12] MEDS: MORPHINE 2 MG/ML INJ 1 MG IV (22:45)
[2022-11-12] MEDS: ONDANSETRON 4 MG/2 ML INJ IV (23:15)
[2022-11-12] MEDS: HALOPERIDOL 5 MG/ML VIAL IV (23:15)
[2022-11-13] VITALS (116 sets, daily range): BP systolic 80–109; BP diastolic 48–69; PULSE 83–107; RESP 7–35; TEMP 36.6–37.1; O2SAT 89–100
[2022-11-13] MEDS: CHLORHEXIDINE GLUCONATE 15 ML CUP PO ×4 (00:20→17:35)
[2022-11-13] MEDS: LACTATED RINGERS 500 ML 250 ML IV (00:20)
[2022-11-13 01:50] LABS: Add Manual Diff / Slide Review NO; Basophils Absolute Auto 300 /uL (0-100); Basophils Percent Auto 2.6 % (0-2); Eosinophils Absolute Auto 800 /uL (0-450); Eosinophils Percent Auto 6.3 % (2-4); Hematocrit 32.6 % (41-53); Hemoglobin 10.6 g/dL (13.5-17.5); Lymphocytes Absolute Auto 2200 /uL (1100-4500); Lymphocytes Percent Auto 17.6 % (25-40); Mean Corpuscular HGB Conc 32.4 % (30-36); Mean Corpuscular Hemoglobin 28.2 PG (26-34); Mean Corpuscular Volume 86.9 fL (80-100); Monocytes Absolute Auto 1200 /uL (0-900); Monocytes Percent Auto 9.9 % (3-14); Neutrophils Absolute Auto 8000 /uL (1500-7000); Neutrophils Percent Auto 63.6 % (50-75); Platelet Count 706 X10^3/uL (150-400); Red Blood Cell Count 3.75 X10^6/uL (4.5-5.9); Red Cell Distribution Width 14.8 % (11.6-14.8); White Blood Cell Count 12.6 X10^3/uL (4.5-11.0)
[2022-11-13 02:01] LABS: Magnesium 2.3 mg/dL (1.6-2.3)
[2022-11-13 02:02] LABS: Alanine Aminotransferase 52 IU/L (<50); Albumin 3.6 g/dL (3.5-5.0); Albumin Globulin Ratio 0.8 (1.0-2.8); Alkaline Phosphatase 133 U/L (38-126); Aspartate Aminotransferase 93 IU/L (17-59); BUN Creatinine Ratio 46.9 (6-22); Bilirubin Total 0.4 mg/dL (0.2-1.3); Blood Urea Nitrogen 38 mg/dL (9-20); Calcium 9.2 mg/dL (8.4-10.2); Carbon Dioxide 29 mmol/L (22-32); Chloride 106 mmol/L (98-107); Estimated Glomerular Filt Rate > 60 mL/min (>60); Globulin 4.4 g/dL (1.7-4.1); Glucose 133 mg/dL (80-110); HEMOLYSIS < 15 (0-50); Potassium 3.9 mmol/L (3.4-5.1); Sodium 142 mmol/L (137-145)
[2022-11-13] MEDS: POTASSIUM CHLORIDE IN WATER 10 MEQ/100 ML PIGGYBACK 100 MEQ IV (05:30)
[2022-11-13] MEDS: NOREPINEPHRINE BITARTRATE/D5W 4 MG/250 ML PLAST..BAG 37.5 MG IV ×2 (06:43→14:12)
--- NOTE | 2022-11-13 09:51 | DI.RAD.S_ITS ---
PROCEDURE: XR CHEST 1V INDICATIONS: intubated, increasing pressor TECHNIQUE: One view of the chest was acquired. COMPARISON: [facility], CR, XR CHEST 1V, 11/08/2022, 10:43. FINDINGS: Surgical changes and devices: ETT tip is approximately 2.4 cm above the roxi. Enteric tube tip is below the left hemidiaphragm. Right internal jugular central venous catheter tip is in SVC. Lungs and pleura: Small patchy airspace opacities are seen in bilateral lower lung north more prominent on the left side. No pleural effusions or pneumothorax. Mediastinum: Mediastinal contours appear normal. Heart size is normal. Bones and chest wall: No suspicious bony lesions. Overlying soft tissues appear unremarkable. IMPRESSION: Suggestion of left worse than right bilateral lower lobe patchy infiltrate/atelectasis. No gross pneumothorax. Tube and line positions as above. Dictated by: Orlando Samano M.D. on 11/13/2022 at 10:17 Approved by: Orlando Samano M.D. on 11/13/2022 at 10:18
--- NOTE | 2022-11-13 09:54 | P.TELICUPN_ITS ---
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 Levo is currently at 10. Precedex at 0.2. Continues on vent. Pending OR for Trach/Peg today. During SAT this morning, patient following commands. No diarrhea. No increased sputum. Patient reports generalized discomfort in back/neck per RN. No fevers. Current Medications Current Medications Medications: Home Medications ketorolac 0.4 % eye drops 1 drp OPHTH QID #5 mL 06/20/17 [Rx Confirmed 10/13/18] indomethacin 50 mg capsule 50 mg PO TIDP PRN pain, moderate #90 caps 10/13/18 [Rx] amitriptyline 25 mg tablet 25 mg PO BEDTIME #30 tabs 01/07/19 [Rx] ondansetron 4 mg disintegrating tablet 4 mg PO TID-QID PRN nausea and vomiting #10 tabs 02/24/19 [Rx] cyclobenzaprine 10 mg tablet 10 mg PO TIDP #90 tabs 11/19/19 [Rx] gabapentin 300 mg capsule (Neurontin) 300 mg PO Q8H #90 caps 11/19/19 [Rx] metoprolol succinate 50 mg tablet,extended release 24 hr (Toprol XL) 50 mg PO BID #60 tabs 11/19/19 [Rx] omeprazole 20 mg capsule,delayed release 20 mg PO QDAY #30 caps 11/19/19 [Rx] doxycycline hyclate 100 mg capsule 100 mg PO BID #14 caps 05/03/22 [Rx] Visit Medications (administered) Generic Name Dose Route Start Last Admin Trade Name Freq PRN Reason Stop Dose Admin Acetaminophen 650 mg 11/11/22 07:55 11/12/22 20:57 Acetaminophen Susp 650 Mg/20.3 Ml Udc TUBE 650 mg Q6H PRN Administration Fever/Mild Pain (1-3) Chlordiazepoxide HCl 50 mg 11/12/22 19:00 11/13/22 03:06 Chlordiazepoxide 10 Mg Capsule TUBE Not Given Q8H [facility] Chlorhexidine Gluconate 15 ml 10/31/22 18:00 11/13/22 05:29 Chlorhexidine Gluconate 15 Ml Cup PO 15 ml Q6HR JYOTI Administration Enoxaparin Sodium 40 mg 11/06/22 12:00 11/12/22 08:39 Enoxaparin 40 Mg/0.4 Ml Syringe SUBCUT 40 mg DAILY JYOTI Administration Folic Acid 1 mg 10/31/22 09:00 11/13/22 08:28 Folic Acid 1 Mg Tablet PO Not Given DAILY JYOTI Gabapentin 300 mg 11/06/22 09:45 11/12/22 20:57 Gabapentin 300 Mg Capsule TUBE 300 mg TID JYOTI Administration Haloperidol 5 mg 11/04/22 09:36 11/12/22 23:15 Haloperidol 5 Mg/Ml Vial IV 5 mg Q2HR PRN Administration Agitation Sodium Chloride 500 mls @ 1,000 mls/hr 10/31/22 14:03 10/31/22 18:19 Normal Saline 0.9% IV Infused BOLUS PRN Infusion Fluid replacement NOREPINEPHRINE BITARTRATE/D5W 4 mg in 250 mls @ 30 mls/hr 11/04/22 22:51 11/13/22 06:43 Levophed IV 10 mcg/min TITRATE JYOTI 37.5 mls/hr Administration Protocol 8 MCG/MIN dexmedeTOMIDine in 0.9 % NaCL 400 mcg in 100 mls @ 2.875 mls/hr 11/06/22 10:15 11/12/22 23:49 Precedex IV 0 mcg/kg/hr TITRATE JYOTI 0 mls/hr Titration Protocol 0.2 MCG/KG/HR Lorazepam 0 mg 10/31/22 00:42 11/04/22 14:03 Lorazepam 2 Mg/Ml Inj IV 2 mg CIWAPRN PRN Administration Alcohol Withdrawal/n/V Protocol Lorazepam 1 mg 11/04/22 09:37 11/04/22 15:20 Lorazepam 2 Mg/Ml Inj IV 1 mg Q2HR PRN Administration Anxiety Morphine Sulfate 1 mg 11/04/22 09:38 11/12/22 22:45 Morphine 2 Mg/Ml Inj IV 1 mg Q2HR PRN Administration Pain, Moderate (4-6) Multivitamins 1 tab 10/31/22 09:00 11/13/22 08:28 Multivitamin 1 Tablet PO Not Given DAILY [facility] Nicotine 7 mg 10/31/22 09:00 11/12/22 10:22 Nicotine 7 Mg Patch TOP 7 mg DAILY JYOTI Administration Ondansetron HCl 4 mg 10/31/22 01:07 11/12/22 23:15 Ondansetron 4 Mg/2 Ml Inj IV 4 mg Q4HR PRN Administration Nausea And Vomiting Objective Ventilator Parameters: Ventilator Settings FiO2 35 CPAP Pressure Amount 30 RT Vent Frequency 18 Ventilator Tidal Volume 390 Exhaled Vt/kg IBW 7.0 Positive End Expiratory 5 Pressure Inspiratory Phase Time 0.75 I:E Ratio 1:3.4 Patient Position HOB >= 30 degrees Labs Result Diagrams: 11/13/22 01:40 11/13/22 01:40 Labs: Laboratory Results - last 24 hr 11/12/22 11/12/22 11/13/22 10:45 11:00 01:40 WBC 12.6 H RBC 3.75 L Hgb 10.6 L Hct 32.6 L MCV 86.9 MCH 28.2 MCHC 32.4 RDW 14.8 Plt Count 706 H Neut % (Auto) 63.6 Lymph % (Auto) 17.6 L [place] % (Auto) 9.9 Eos % (Auto) 6.3 H Baso % (Auto) 2.6 H Neut # (Auto) 8000 H Lymph # (Auto) 2200 [place] # (Auto) 1200 H Eos # (Auto) 800 H Baso # (Auto) 300 H Sodium Potassium Chloride Carbon Dioxide BUN Creatinine Estimated GFR BUN/Creatinine Ratio Glucose Calcium Magnesium Total Bilirubin AST ALT Alkaline Phosphatase Total Protein Albumin Globulin Albumin/Globulin Ratio SARS-CoV-2 (PCR) Negative Blood Type O Positive Antibody Screen Negative 11/13/22 11/13/22 01:40 01:48 WBC RBC Hgb Hct MCV MCH MCHC RDW Plt Count Neut % (Auto) Lymph % (Auto) [place] % (Auto) Eos % (Auto) Baso % (Auto) Neut # (Auto) Lymph # (Auto) [place] # (Auto) Eos # (Auto) Baso # (Auto) Sodium 142 Potassium 3.9 Chloride 106 Carbon Dioxide 29 BUN 38 H Creatinine 0.81 Estimated GFR > 60 BUN/Creatinine Ratio 46.9 H Glucose 133 H Calcium 9.2 Magnesium 2.3 Total Bilirubin 0.4 AST 93 H ALT 52 H Alkaline Phosphatase 133 H Total Protein 8.0 Albumin 3.6 Globulin 4.4 H Albumin/Globulin Ratio 0.8 L SARS-CoV-2 (PCR) Blood Type Antibody Screen Exam Vital Signs (past 8 hours): - 11/13/22 02:00 11/13/22 03:00 11/13/22 04:00 Temperature 98.6 F Pulse Rate 99 H 96 H 100 H Respiratory Rate 24 23 20 Blood Pressure 86/56 L 98/61 95/63 Pulse Oximetry 100 98 95 Oxygen Delivery Method Fraction of Inspired Oxygen 0.35 0.35 0.35 11/13/22 05:00 11/13/22 04:00 11/13/22 06:00 Temperature Pulse Rate 102 H 101 H Respiratory Rate 24 23 Blood Pressure 96/61 95/59 L Pulse Oximetry 98 98 Oxygen Delivery Method Mechanical Ventilation Fraction of Inspired Oxygen 0.35 0.35 11/13/22 04:45 11/13/22 04:45 11/13/22 04:50 Temperature Pulse Rate 103 H 103 H Respiratory Rate 26 H 25 H Blood Pressure 93/60 Pulse Oximetry 95 97 Oxygen Delivery Method Fraction of Inspired Oxygen 11/13/22 05:00 11/13/22 05:00 11/13/22 05:10 Temperature Pulse Rate 102 H 103 H Respiratory Rate 24 23 Blood Pressure 96/61 Pulse Oximetry 98 97 Oxygen Delivery Method Fraction of Inspired Oxygen 11/13/22 05:15 11/13/22 05:15 11/13/22 05:20 Temperature Pulse Rate 102 H 101 H Respiratory Rate 21 22 Blood Pressure 98/63 Pulse Oximetry 98 98 Oxygen Delivery Method Fraction of Inspired Oxygen 11/13/22 05:30 11/13/22 05:30 11/13/22 05:40 Temperature Pulse Rate 102 H 100 H Respiratory Rate 23 19 Blood Pressure 91/61 Pulse Oximetry 98 99 Oxygen Delivery Method Fraction of Inspired Oxygen 11/13/22 05:45 11/13/22 05:45 11/13/22 05:50 Temperature Pulse Rate 102 H 102 H Respiratory Rate 23 24 Blood Pressure 96/61 Pulse Oximetry 98 98 Oxygen Delivery Method Fraction of Inspired Oxygen 11/13/22 06:00 11/13/22 06:00 11/13/22 06:10 Temperature Pulse Rate 101 H 103 H Respiratory Rate 23 24 Blood Pressure 95/59 L Pulse Oximetry 98 99 Oxygen Delivery Method Fraction of Inspired Oxygen 11/13/22 06:15 11/13/22 06:15 11/13/22 06:20 Temperature Pulse Rate 103 H 102 H Respiratory Rate 23 24 Blood Pressure 87/61 L Pulse Oximetry 99 99 Oxygen Delivery Method Fraction of Inspired Oxygen 11/13/22 06:30 11/13/22 06:30 11/13/22 06:40 Temperature Pulse Rate 102 H 102 H Respiratory Rate 24 29 H Blood Pressure 95/64 Pulse Oximetry 99 96 Oxygen Delivery Method Fraction of Inspired Oxygen 11/13/22 06:45 11/13/22 06:45 11/13/22 06:50 Temperature Pulse Rate 102 H 101 H Respiratory Rate 28 H 24 Blood Pressure 88/57 L Pulse Oximetry 97 96 Oxygen Delivery Method Fraction of Inspired Oxygen 11/13/22 07:00 11/13/22 07:01 11/13/22 07:01 Temperature Pulse Rate 106 H 106 H Respiratory Rate 27 H 26 H Blood Pressure 106/69 Pulse Oximetry 97 98 Oxygen Delivery Method Fraction of Inspired Oxygen 11/13/22 07:10 11/13/22 07:15 11/13/22 07:15 Temperature Pulse Rate 105 H 107 H Respiratory Rate 31 H 27 H Blood Pressure 103/55 L Pulse Oximetry 96 97 Oxygen Delivery Method Fraction of Inspired Oxygen 11/13/22 07:20 11/13/22 07:30 11/13/22 07:30 Temperature Pulse Rate 104 H 103 H Respiratory Rate 26 H 26 H Blood Pressure 95/64 Pulse Oximetry 95 98 Oxygen Delivery Method Fraction of Inspired Oxygen 11/13/22 07:40 11/13/22 07:45 11/13/22 07:45 Temperature Pulse Rate 104 H 101 H Respiratory Rate 23 24 Blood Pressure 94/65 Pulse Oximetry 98 99 Oxygen Delivery Method Fraction of Inspired Oxygen 11/13/22 07:50 11/13/22 08:00 11/13/22 08:00 Temperature Pulse Rate 103 H 102 H Respiratory Rate 22 23 Blood Pressure 97/63 Pulse Oximetry 97 97 Oxygen Delivery Method Fraction of Inspired Oxygen 11/13/22 08:10 11/13/22 08:15 11/13/22 08:15 Temperature Pulse Rate 103 H 100 H Respiratory Rate 25 H 23 Blood Pressure 95/57 L Pulse Oximetry 98 98 Oxygen Delivery Method Fraction of Inspired Oxygen 11/13/22 08:20 11/13/22 08:30 11/13/22 08:30 Temperature Pulse Rate 101 H 101 H Respiratory Rate 26 H 22 Blood Pressure 104/64 Pulse Oximetry 97 97 Oxygen Delivery Method Fraction of Inspired Oxygen 11/13/22 08:40 11/13/22 08:50 11/13/22 09:00 Temperature 98.7 F Pulse Rate 100 H 100 H Respiratory Rate 26 H 24 Blood Pressure 88/59 L Pulse Oximetry 97 97 Oxygen Delivery Method Fraction of Inspired Oxygen 11/13/22 09:00 11/13/22 09:10 Temperature Pulse Rate 100 H 99 H Respiratory Rate 21 23 Blood Pressure Pulse Oximetry 97 98 Oxygen Delivery Method Fraction of Inspired Oxygen Fraction of Inspired Oxygen 0.35 Oxygen Delivery Method Mechanical Ventilation Oxygen Flow Rate 3 Narrative Exam Narrative: Sedated. VS are WNL with Levo of 10. On vent, 390, 19, 5, 35% Quality TeleICU VTE Deep Vein Thrombosis/Pulmonary Embolism Present on Admission: No Assessment & Plan Assessment & Plan narrative: NEURO: # Acute encephalopathy, previous ETOH withdrawal that has improved -- Librium wean, currently 50 q8H -- On precedex gtt, low dose -- Once Librium weaned, would also start wean of Gabapentin -- RASS goal -1 to 0 -- Avoid BZD -- Once trach/peg complete, recommend PT/OT, mobility -- Daily CAM ICU RESP: # Acute hypoxemic respiratory failure -- Secondary to severe deconditioning and weakness -- Plan for trach and peg -- HOB elevation -- Aspiration precaution -- PT/OT consultation -- Goal SpO2 > 88% -- Daily SAT and SBT -- CXR today CVS: # Shock -- Secondary previously thought 2/2 positive pressure and sedation but now on minimal sedation, pressures on vent fairly low. -- MAP goal > 65 -- On levophed -- If unable to get off Levophed would recommend repeat TTE tomorrow GI -- TFs held for OR, restart when peg cleared by surgery -- PPI QD -- Continue multivitamins Renal # Volume Overload, improved -- Hold daily IV Lasix -- Currently NPO pending OR. LR mIVF until TFs resumed -- Consider spot-dosing Lasix if needed. Would repeat TTE tomorrow if patient remains on moderate dose LEvophed ID: # Concern for sepsis, pneumonia, influenza. Has completed a course of Zosyn. Increasing white counts, no fevers at this time. At risk for CAUTI, CLABSI, VAP. -- If fevers, send blood/urine/respiratory cultures, empiric antibiotics -- Not currently on antibiotics HEME: # Anemia -- Secondary to critical illness. No e/o bleed at this time -- Daily CBC. Will check repeat labs post-op today -- Goal Hb > 7 ENDO: -- BS < 180 D/w bedside RN and Pharmacy Time Spent With Patient Critical Care time: I spent a total of [] minutes of critical care time on this patient's care today; this time is exclusive of procedural time.
[2022-11-13 10:23] LABS: Appearance Urine UA CLEAR; Bilirubin Urine UA NEGATIVE (NEGATIVE); Color Urine UA YELLOW; Glucose Urine UA NEGATIVE (Negative); Ketones Urine UA NEGATIVE (NEGATIVE); Leukocyte Esterase Urine UA NEGATIVE (NEGATIVE); Nitrite Urine UA NEGATIVE (Negative); Occult Blood Urine UA NEGATIVE (Negative); Protein Urine UA TRACE (Negative); Urobilinogen Urine UA 0.2 E.U./dL (0.2); pH Urine UA 5.5 (4.5-8.0)
[2022-11-13 10:41] LABS: Bacteria Urine None Seen; RBC Urine None Seen (0-5/HPF); Squamous Epithelial Cell Urine None Seen (0-5/HPF); WBC Urine 0-1/HPF (0-5/HPF)
[2022-11-13 10:42] LABS: Culture Indicated Urine Cult Not Indicated
--- NOTE | 2022-11-13 10:55 | SUR.HOLD ---
Emergency contact and verbal consent can be obtained from daughter, Kelsea Milan, at [phone].
[2022-11-13] MEDS: NICOTINE 7 MG PATCH TOP (10:59)
[2022-11-13] MEDS: GABAPENTIN 300 MG CAPSULE TUBE ×3 (10:59→20:38)
[2022-11-13] MEDS: PANTOPRAZOLE 40 MG **PACKET PO (10:59)
[2022-11-13] MEDS: LACTATED RINGERS 1,000 ML 100 ML IV (11:01)
--- NOTE | 2022-11-13 11:05 | PM.PREOP ---
Pre-operative Note COVID-19 COVID-19 status: Negative Criteria for continued procedure: Delay expected to result in less-positive ultimate med/surg outcome Interval Note History & Physical reviewed/Exam performed by Physician: Yes Changes to H&P: No
--- NOTE | 2022-11-13 11:29 | DIET.CONS2 ---
Dietary Inpatient Consultation Note Admission Date: 10/30/2022 20:22 Pt in surgery for PEG placement. Recc waiting 6-12h before reinitiating 16h tube feed- Glucerna 1.5 running at 68mL/h with 150mL free water flushes q4h. Please add 1 packet Prosource TF when initiating TF daily to support tissue repair of sacral wounds providing additional 11g PRO. Goal feeding provides 1620kcals (24kcal/kg), 100g PRO (1.5g/kg) and 144g CHO. Feed plus flushes provide 1720mL fluids (26mL/kg) remainder of fluids to be managed by hospitalist/vp ancillary. Recc following renal labs for increase in protein. Protein supplement to be stopped when pressure sores adequately healed. Diet: 11/05/22 Dinner Tube Feeding Diet Diet Modifications: TF Supplement type: Glucerna 1.5 leroy TF mode of delivery: Continuous Starting flow rate mL/hr: 10 Flow rate goal mL/hr: 68 Titration Schedule to reach Goal Rate: on for 16hrs and off for 8 Max total daily volume in mL: 2000 Free fluid: 150 Free Water Frequency: Q4H Comment: fluids to be managed by hospitalist/vp ancillary 11/06/22 Breakfast Courtesy Sukhjinder (Peds, comfort care) Diet Modifications: Nutrition Type of Feeding Tube NG/OG 11/11/22 18:12 Electronically Signed by: Pati Parikh 11/13/22 11:29 Clinical Dietitian [address] [address]
[2022-11-13] MEDS: chlordiazePOXIDE 10 MG CAPSULE 50 MG TUBE (12:37)
--- NOTE | 2022-11-13 12:37 | PM.CALLCOV.1 ---
Call Coverage Note Note Date of Patient Contact: 11/13/22 Time of Patient Contact: 12:37 Narrative of Care Provided: PEG and trach postponed for now. Does not have placement. Has gone up on his pressure needs and is being worked up for infection
[2022-11-13] MEDS: PIPERACILLIN/TAZO 3.375 GM in SODIUM CHLORIDE 0.9% 100 ML IV ×2 (14:12→20:36)
--- NOTE | 2022-11-13 15:40 | PC.NURSE ---
Day Shift Note Patient sedated to RASS of -2, able to open eyes to his name and to voice, can follow commands. Precedex gtt at 0.4 mcg/kg/hr. On vent settings FiO2 35%, TV 390, RR 18, and PEEP 5. SpO2 upper 90s all shift. Requires oral suctioning with turns, clear and thin secretions, minimal secretions via ET tube. BP 80-90s/50s with MAP decreasing to 60-65, MD aware and reviewed in rounds, pt started on LR at 100 ml/hr per MD order and U/A sent, CXR done. Notified that trach and PEG will be done tomorrow, pt placed back on tube feeds via OG tube at 1500, ProSource protein supplement administered per dietary recommendations, to be NPO at 0000 tonight. Labs ordered by Dr. Alatorre to be done after surgery today, reviewed with Dr. Contreras and labs to be drawn and sent at 2000 today. Soft bilateral wrist restraints in place as pt reaches for ET tube. Turning every 2 hours to offload pressure to coccyx and sacrum, dressings are C/D/I. Daughter and next of kin Kelsea updated via phone on plan of care and on trach/PEG reschedule.
--- NOTE | 2022-11-13 17:14 | PM.PN.1 ---
Subjective Subjective Date Patient Seen: 11/13/22 Interval history: No acute events overnight. Continues to be a bit more alert but weak and tired. Not tolerating spontaneous trials currently. Plan for trach/peg tomorrow now. Increased pressor requirements today with mild leukocytosis. UA unremarkable. CXR showed infiltrate though no significant secretions. Restarted on zosyn for presumed pneumonia. Exam Vital Signs (past 8 hours): - 11/13/22 09:20 11/13/22 09:30 11/13/22 09:30 Temperature Pulse Rate 100 H 99 H Respiratory Rate 22 22 Blood Pressure 94/61 Pulse Oximetry 98 98 Oxygen Delivery Method 11/13/22 09:40 11/13/22 09:50 11/13/22 10:00 Temperature Pulse Rate 99 H 99 H Respiratory Rate 22 23 Blood Pressure 100/58 L Pulse Oximetry 99 99 Oxygen Delivery Method 11/13/22 10:00 11/13/22 10:10 11/13/22 10:20 Temperature Pulse Rate 100 H 98 H 98 H Respiratory Rate 24 21 23 Blood Pressure Pulse Oximetry 98 99 99 Oxygen Delivery Method 11/13/22 10:30 11/13/22 10:30 11/13/22 10:40 Temperature Pulse Rate 99 H 99 H Respiratory Rate 25 H 23 Blood Pressure 97/58 L Pulse Oximetry 99 99 Oxygen Delivery Method 11/13/22 10:50 11/13/22 11:00 11/13/22 11:00 Temperature Pulse Rate 100 H 100 H Respiratory Rate 24 25 H Blood Pressure 88/51 L Pulse Oximetry 98 93 Oxygen Delivery Method 11/13/22 11:10 11/13/22 11:20 11/13/22 11:30 Temperature Pulse Rate 100 H 100 H Respiratory Rate 23 21 Blood Pressure 89/57 L Pulse Oximetry 96 95 Oxygen Delivery Method 11/13/22 11:30 11/13/22 11:40 11/13/22 11:50 Temperature Pulse Rate 98 H 99 H 99 H Respiratory Rate 26 H 30 H 26 H Blood Pressure Pulse Oximetry 96 93 95 Oxygen Delivery Method 11/13/22 12:00 11/13/22 12:00 11/13/22 12:07 Temperature Pulse Rate 98 H Respiratory Rate 22 Blood Pressure 80/56 L 81/54 L Pulse Oximetry 94 Oxygen Delivery Method 11/13/22 12:07 11/13/22 12:10 11/13/22 12:20 Temperature Pulse Rate 99 H 100 H 97 H Respiratory Rate 22 22 15 Blood Pressure Pulse Oximetry 95 94 95 Oxygen Delivery Method 11/13/22 12:30 11/13/22 12:30 11/13/22 12:40 Temperature Pulse Rate 97 H 95 H Respiratory Rate 11 L 7 L Blood Pressure 80/54 L Pulse Oximetry 95 96 Oxygen Delivery Method 11/13/22 12:50 11/13/22 13:00 11/13/22 13:00 Temperature Pulse Rate 95 H 95 H Respiratory Rate 13 13 Blood Pressure 85/51 L Pulse Oximetry 97 97 Oxygen Delivery Method 11/13/22 13:10 11/13/22 13:20 11/13/22 13:30 Temperature Pulse Rate 94 H 94 H Respiratory Rate 15 8 L Blood Pressure 80/49 L Pulse Oximetry 98 98 Oxygen Delivery Method 11/13/22 13:30 11/13/22 13:36 11/13/22 13:36 Temperature Pulse Rate 93 H 93 H Respiratory Rate 12 7 L Blood Pressure 80/48 L Pulse Oximetry 100 99 Oxygen Delivery Method 11/13/22 13:40 11/13/22 13:50 11/13/22 14:00 Temperature Pulse Rate 93 H 93 H Respiratory Rate 11 L 12 Blood Pressure 102/66 Pulse Oximetry 99 99 Oxygen Delivery Method 11/13/22 14:00 11/13/22 14:10 11/13/22 14:15 Temperature Pulse Rate 100 H 101 H 100 H Respiratory Rate 35 H 31 H 29 H Blood Pressure Pulse Oximetry 89 L 91 92 Oxygen Delivery Method 11/13/22 14:15 11/13/22 14:20 11/13/22 14:30 Temperature Pulse Rate 99 H Respiratory Rate 28 H Blood Pressure 109/59 L 95/57 L Pulse Oximetry 95 Oxygen Delivery Method 11/13/22 14:30 11/13/22 12:00 11/13/22 16:00 Temperature 98.2 F Pulse Rate 99 H Respiratory Rate 26 H Blood Pressure Pulse Oximetry 97 Oxygen Delivery Method Mechanical Ventilation Mechanical Ventilation Fraction of Inspired Oxygen 0.35 Oxygen Delivery Method Mechanical Ventilation Oxygen Flow Rate 3 Narrative Exam Narrative: GEN:? Ill-appearing middle-aged male, intubated, lightly sedated follows simple commands. HEENT:NC, Face symmetric CHEST: Respiratory excursions symmetric, coarse but CTAB CV: RRR, no M/R/G ABD: Soft, NT/ND, BT present in all 4 quadrants, no organomegaly or masses EXTR: warm, well perfused, no C/C/E SKIN: warm and dry, no rash NEURO:? Intubated, lightly sedated, follows simple commands. Objective Labs Result Diagrams: 11/13/22 01:40 11/13/22 01:40 Labs: Laboratory Results - last 24 hr 11/13/22 11/13/22 11/13/22 01:40 01:40 01:48 WBC 12.6 H RBC 3.75 L Hgb 10.6 L Hct 32.6 L MCV 86.9 MCH 28.2 MCHC 32.4 RDW 14.8 Plt Count 706 H Neut % (Auto) 63.6 Lymph % (Auto) 17.6 L [place] % (Auto) 9.9 Eos % (Auto) 6.3 H Baso % (Auto) 2.6 H Neut # (Auto) 8000 H Lymph # (Auto) 2200 [place] # (Auto) 1200 H Eos # (Auto) 800 H Baso # (Auto) 300 H Sodium 142 Potassium 3.9 Chloride 106 Carbon Dioxide 29 BUN 38 H Creatinine 0.81 Estimated GFR > 60 BUN/Creatinine Ratio 46.9 H Glucose 133 H Calcium 9.2 Magnesium 2.3 Total Bilirubin 0.4 AST 93 H ALT 52 H Alkaline Phosphatase 133 H Total Protein 8.0 Albumin 3.6 Globulin 4.4 H Albumin/Globulin Ratio 0.8 L Urine Color Urine Appearance Urine pH Ur Specific [place] Urine Protein Urine Glucose (UA) Urine Ketones Urine Occult Blood Urine Nitrate Urine Bilirubin Urine Urobilinogen Ur Leukocyte Esterase Urine RBC Urine WBC Ur Squamous Epith Cells Urine Bacteria Ur Culture Indicated? 11/13/22 10:17 WBC RBC Hgb Hct MCV MCH MCHC RDW Plt Count Neut % (Auto) Lymph % (Auto) [place] % (Auto) Eos % (Auto) Baso % (Auto) Neut # (Auto) Lymph # (Auto) [place] # (Auto) Eos # (Auto) Baso # (Auto) Sodium Potassium Chloride Carbon Dioxide BUN Creatinine Estimated GFR BUN/Creatinine Ratio Glucose Calcium Magnesium Total Bilirubin AST ALT Alkaline Phosphatase Total Protein Albumin Globulin Albumin/Globulin Ratio Urine Color Yellow Urine Appearance Clear Urine pH 5.5 Ur Specific [place] 1.020 Urine Protein Trace H Urine Glucose (UA) Negative Urine Ketones Negative Urine Occult Blood Negative Urine Nitrate Negative Urine Bilirubin Negative Urine Urobilinogen 0.2 Ur Leukocyte Esterase Negative Urine RBC None seen Urine WBC 0-1/hpf Ur Squamous Epith Cells None seen Urine Bacteria None seen Ur Culture Indicated? Cult not indicated [facility] Medical History (Updated 11/11/22 @ 10:54 by Corey Masters MD) Acid reflux Alcohol abuse Ankle pain Ankylosing spondylitis (1985) Ankylosing spondylitis Chronic back pain Foot pain Fracture cervical vertebra-closed GERD (gastroesophageal reflux disease) Hypertension Hypertension Muscle pain Tobacco use disorder, moderate, in early remission Surgical History History of open reduction and internal fixation (ORIF) procedure (2005) History of tonsillectomy Status post colonoscopy (2012) Status post incision and drainage Family History Father No problems noted. Mother Cancer Other Alcoholism Colorectal cancer Social History Smoking Status: Current every day smoker Assessment & Plan Assessment & Plan narrative: 1. Acute hypoxic respiratory failure He remains intubated/mechanically ventilated.? Continue ventilator support.? He has failed several trials of ventilator weaning. The Zosyn and vancomycin for pneumonia stopped 11/10 after completing therapy but rising wbc again today so restarted on 11/13. As noted, IV furosemide was held due to hypotension. General Surgery consulted and will likely place a tracheostomy on on 11/14 now. LTAC does not take patient's insurance so will have to attempt weaning here. 2. Bilateral bacterial pneumonia [place] to be superinfection in the setting of influenza A.?Now completed antibiotic therapies on 11/10 but another possible pneumonia 11/13 restarted on zosyn. 3. Influenza A Positive test on October 30.? At this point, influenza has resolved.? 4. Alcohol dependence with withdrawal Patient is presently on a Precedex drip.? He remains on Librium as well, folic acid, and multivitamin. Continue to wean from librium. 5. Heroin dependence Continuing supportive care. 6. septic shock with acute end-organ failure patient presented with pneumonia, lactic acidosis, leukocytosis, tachycardia, and hypoxia.? Symptoms and signs of sepsis have overall improved.? It is felt his ongoing hypotension is likely secondary to sedation at this time and antibiotics have been discontinued as discussed above. He remains on levophed. Lasix was started for possible volume overload, stopped today may help wean from pressors. 7. Acute metabolic encephalopathy Likely multifactorial from infection, sepsis, alcohol withdrawal. 8. Essential hypertension On metoprolol on an outpatient basis.? This has been held in the setting of ongoing difficulties with hypotension and need for pressors. 9. Protein calorie malnutrition Remains on tube feed Glucerna per OGT. 10. Normocytic anemia Hemoglobin was 10.8 on admission.? Currently stable at 9.6. 11. Thrombocytosis Platelets are 689.? Likely reactive in nature. Code status Full Prophylaxis Lovenox Disposition ICU. LTAC does not accepts patient's insurance. I spent 35 minutes providing critical care management this patient. This excludes time spent in performing separately billed procedures. Time Spent With Patient Critical Care time: I spent a total of [] minutes of critical care time on this patient's care today; this time is exclusive of procedural time. Quality VTE Deep Vein Thrombosis/Pulmonary Embolism Present on Admission: No
[2022-11-13] MEDS: chlordiazePOXIDE 25 MG CAPSULE TUBE (17:35)
[2022-11-13] MEDS: dexmedeTOMIDine in 0.9 % NaCL 400 MCG/100 ML PLAST..BAG 5.75 MCG IV (17:49)
[2022-11-13 20:25] LABS: Add Manual Diff / Slide Review NO; Basophils Absolute Auto 400 /uL (0-100); Basophils Percent Auto 4.2 % (0-2); Eosinophils Absolute Auto 1000 /uL (0-450); Eosinophils Percent Auto 10.8 % (2-4); Hematocrit 28.4 % (41-53); Hemoglobin 9.5 g/dL (13.5-17.5); Lymphocytes Absolute Auto 2100 /uL (1100-4500); Lymphocytes Percent Auto 22.9 % (25-40); Mean Corpuscular HGB Conc 33.3 % (30-36); Monocytes Absolute Auto 800 /uL (0-900); Monocytes Percent Auto 8.7 % (3-14); Neutrophils Absolute Auto 4900 /uL (1500-7000); Neutrophils Percent Auto 53.4 % (50-75); Platelet Count 599 X10^3/uL (150-400); Red Blood Cell Count 3.26 X10^6/uL (4.5-5.9); Red Cell Distribution Width 14.9 % (11.6-14.8); White Blood Cell Count 9.2 X10^3/uL (4.5-11.0)
[2022-11-13 20:38] LABS: Alanine Aminotransferase 37 IU/L (<50); Albumin 3.1 g/dL (3.5-5.0); Albumin Globulin Ratio 0.7 (1.0-2.8); Alkaline Phosphatase 89 U/L (38-126); Aspartate Aminotransferase 49 IU/L (17-59); BUN Creatinine Ratio 32.9 (6-22); Bilirubin Total 0.5 mg/dL (0.2-1.3); Blood Urea Nitrogen 27 mg/dL (9-20); Calcium 8.8 mg/dL (8.4-10.2); Carbon Dioxide 28 mmol/L (22-32); Chloride 103 mmol/L (98-107); Estimated Glomerular Filt Rate > 60 mL/min (>60); Globulin 4.2 g/dL (1.7-4.1); Glucose 120 mg/dL (80-110); HEMOLYSIS < 15 (0-50); Lactate (Lactic Acid) 0.9 mmol/L (0.7-2.1); Potassium 4.1 mmol/L (3.4-5.1); Sodium 139 mmol/L (137-145); Total Protein 7.3 g/dL (6.3-8.2)
[2022-11-13] MEDS: NOREPINEPHRINE BITARTRATE/D5W 4 MG/250 ML PLAST..BAG 41.25 MG IV (20:38)
--- NOTE | 2022-11-13 20:41 | PM.ICURNDS ---
- Date Patient Seen: 11/13/22 Time Patient Seen: 20:41 :: This patient was seen via real time interactive two-way audiovisual telecommunication. Note: trach cancelled due to snowstorm otherwise no issues reported continue supportive care wean pressors
[2022-11-13] MEDS: ACETAMINOPHEN SUSP 650 MG/20.3 ML UDC TUBE (22:13)
[2022-11-14] VITALS (89 sets, daily range): BP systolic 74–128; BP diastolic 51–87; PULSE 54–117; RESP 16–31; TEMP 36.4–36.9; O2SAT 84–100
[2022-11-14] MEDS: CHLORHEXIDINE GLUCONATE 15 ML CUP PO ×5 (00:19→23:18)
[2022-11-14] MEDS: NOREPINEPHRINE BITARTRATE/D5W 4 MG/250 ML PLAST..BAG 45 MG IV (01:55)
[2022-11-14 03:28] LABS: Add Manual Diff / Slide Review NO; Basophils Absolute Auto 300 /uL (0-100); Basophils Percent Auto 3.1 % (0-2); Eosinophils Absolute Auto 1000 /uL (0-450); Eosinophils Percent Auto 10.4 % (2-4); Hematocrit 29.4 % (41-53); Lymphocytes Absolute Auto 1500 /uL (1100-4500); Lymphocytes Percent Auto 15.7 % (25-40); Mean Corpuscular Hemoglobin 29.6 PG (26-34); Monocytes Absolute Auto 600 /uL (0-900); Monocytes Percent Auto 6.7 % (3-14); Neutrophils Absolute Auto 6200 /uL (1500-7000); Neutrophils Percent Auto 64.1 % (50-75); Platelet Count 590 X10^3/uL (150-400); Red Blood Cell Count 3.38 X10^6/uL (4.5-5.9); Red Cell Distribution Width 15.3 % (11.6-14.8); White Blood Cell Count 9.6 X10^3/uL (4.5-11.0)
[2022-11-14] MEDS: SODIUM CHLORIDE 0.9% 500 ML 250 ML IV (03:32)
--- NOTE | 2022-11-14 03:34 | PC.NURSE ---
Pt with accelerated ventricular rhythm. Currently on levophed with pressures dropping to 70s systolic. Order to start vasopressin and titrate off levophed. PRN order of 500 mL NS bolus running @ 250 mL/hr. Pressures improved with bolus.
[2022-11-14 03:36] LABS: Alanine Aminotransferase 37 IU/L (<50); Albumin 3.3 g/dL (3.5-5.0); Albumin Globulin Ratio 0.8 (1.0-2.8); Alkaline Phosphatase 110 U/L (38-126); Aspartate Aminotransferase 46 IU/L (17-59); Bilirubin Total 0.4 mg/dL (0.2-1.3); Blood Urea Nitrogen 29 mg/dL (9-20); Calcium 8.8 mg/dL (8.4-10.2); Carbon Dioxide 29 mmol/L (22-32); Chloride 106 mmol/L (98-107); Estimated Glomerular Filt Rate > 60 mL/min (>60); Globulin 4.1 g/dL (1.7-4.1); Glucose 129 mg/dL (80-110); HEMOLYSIS < 15 (0-50); Magnesium 2.2 mg/dL (1.6-2.3); Potassium 4.1 mmol/L (3.4-5.1); Sodium 139 mmol/L (137-145); Total Protein 7.4 g/dL (6.3-8.2)
[2022-11-14] MEDS: VASOPRESSIN 40 UNIT in SODIUM CHLORIDE 0.9% 100 ML 6 UNIT IV ×2 (03:42→18:00)
--- NOTE | 2022-11-14 04:32 | PM.EICU.INT ---
Teleintensivist Intervention Date/Time Was camera activated?: Yes Date Patient Seen: 11/14/22 Time Patient Seen: 04:20 Issue(s) Addressed Issue(s): Arrhythmia (Called for rhythm change. On camera, VPCs seen along with trigeminy and IVCD. Chart review reveals previous troponin leak of ~0.1 ~ 11/04. Vasopressin has been started to decrease NE requirements. AM K+ and Mg+2 reviewed and OK.) Intervention(s) :: 1) Check echo 2) Serial troponins 3) ASA 4) Lipitor
[2022-11-14] MEDS: PIPERACILLIN/TAZO 3.375 GM in SODIUM CHLORIDE 0.9% 100 ML IV ×3 (04:50→20:36)
[2022-11-14] MEDS: ASPIRIN 300 MG SUPP PR (04:52)
[2022-11-14 05:03] LABS: Troponin I 0.052 ng/mL (0.01-0.034)
--- NOTE | 2022-11-14 07:43 | P.TELICUPN_ITS ---
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 On levophed 7 mcg and vasopressin. Added stress dose steroids. Ordered blood and sputum cx. Awaiting for tracheostomy today. Current Medications Current Medications Medications: Home Medications indomethacin 50 mg capsule 50 mg PO TIDP PRN pain, moderate #90 caps 10/13/18 [Rx Confirmed 11/13/22] amitriptyline 25 mg tablet 25 mg PO BEDTIME #30 tabs 01/07/19 [Rx Confirmed 11/13/22] cyclobenzaprine 10 mg tablet 10 mg PO TIDP #90 tabs 11/19/19 [Rx Confirmed 11/13/22] gabapentin 300 mg capsule (Neurontin) 300 mg PO Q8H #90 caps 11/19/19 [Rx Confirmed 11/13/22] metoprolol succinate 50 mg tablet,extended release 24 hr (Toprol XL) 50 mg PO BID #60 tabs 11/19/19 [Rx Confirmed 11/13/22] omeprazole 20 mg capsule,delayed release 20 mg PO QDAY #30 caps 11/19/19 [Rx Confirmed 11/13/22] Visit Medications (administered) Generic Name Dose Route Start Last Admin Trade Name Freq PRN Reason Stop Dose Admin Acetaminophen 650 mg 11/11/22 07:55 11/13/22 22:13 Acetaminophen Susp 650 Mg/20.3 Ml Udc TUBE 650 mg Q6H PRN Administration Fever/Mild Pain (1-3) Chlordiazepoxide HCl 25 mg 11/13/22 18:00 11/14/22 00:19 Chlordiazepoxide 25 Mg Capsule TUBE Not Given Q8H JYOTI Chlorhexidine Gluconate 15 ml 10/31/22 18:00 11/14/22 05:56 Chlorhexidine Gluconate 15 Ml Cup PO 15 ml Q6HR JYOTI Administration Enoxaparin Sodium 40 mg 11/06/22 12:00 11/12/22 08:39 Enoxaparin 40 Mg/0.4 Ml Syringe SUBCUT 40 mg DAILY JYOTI Administration Folic Acid 1 mg 10/31/22 09:00 11/13/22 08:28 Folic Acid 1 Mg Tablet PO Not Given DAILY JYOTI Gabapentin 300 mg 11/06/22 09:45 11/13/22 20:38 Gabapentin 300 Mg Capsule TUBE 300 mg TID JYOTI Administration Sodium Chloride 500 mls @ 1,000 mls/hr 10/31/22 14:03 11/14/22 03:32 Normal Saline 0.9% IV 250 mls/hr BOLUS PRN Administration Fluid replacement NOREPINEPHRINE BITARTRATE/D5W 4 mg in 250 mls @ 30 mls/hr 11/04/22 22:51 11/14/22 06:51 Levophed IV 7 mcg/min TITRATE JYOTI 26.25 mls/hr Titration Protocol 8 MCG/MIN dexmedeTOMIDine in 0.9 % NaCL 400 mcg in 100 mls @ 2.875 mls/hr 11/06/22 10:15 11/13/22 22:59 Precedex IV 0.4 mcg/kg/hr TITRATE JYOTI 5.75 mls/hr Titration Protocol 0.2 MCG/KG/HR Piperacillin Sod/Tazobactam 100 mls @ 25 mls/hr 11/13/22 13:15 11/14/22 04:50 Sod 3.375 gm/ Sodium Chloride IV 25 mls/hr Q8H JYOTI Administration Vasopressin 40 unit/ Sodium 102 mls @ 6 mls/hr 11/14/22 03:30 11/14/22 03:42 Chloride IV 6 mls/hr CONT JYOTI Administration Lorazepam 0 mg 10/31/22 00:42 11/04/22 14:03 Lorazepam 2 Mg/Ml Inj IV 2 mg CIWAPRN PRN Administration Alcohol Withdrawal/n/V Protocol Lorazepam 1 mg 11/04/22 09:37 11/04/22 15:20 Lorazepam 2 Mg/Ml Inj IV 1 mg Q2HR PRN Administration Anxiety Morphine Sulfate 1 mg 11/04/22 09:38 11/12/22 22:45 Morphine 2 Mg/Ml Inj IV 1 mg Q2HR PRN Administration Pain, Moderate (4-6) Multivitamins 1 tab 10/31/22 09:00 11/13/22 08:28 Multivitamin 1 Tablet PO Not Given DAILY JYOTI Nicotine 7 mg 10/31/22 09:00 11/13/22 10:59 Nicotine 7 Mg Patch TOP 7 mg DAILY JYOTI Administration Ondansetron HCl 4 mg 10/31/22 01:07 11/12/22 23:15 Ondansetron 4 Mg/2 Ml Inj IV 4 mg Q4HR PRN Administration Nausea And Vomiting Pantoprazole Sodium 40 mg 11/13/22 09:00 11/13/22 10:59 Pantoprazole 40 Mg Packet PO 40 mg DAILY JYOTI Administration Objective Ventilator Parameters: Ventilator Settings FiO2 35 CPAP Pressure Amount 30 RT Vent Frequency 18 Ventilator Tidal Volume 390 Exhaled Vt/kg IBW 7.0 Positive End Expiratory 5 Pressure Ventilator Pressure Support 2 Inspiratory Phase Time 0.75 I:E Ratio 1:3.4 Patient Position HOB >= 30 degrees Labs Result Diagrams: 11/14/22 03:10 11/14/22 03:10 Labs: Laboratory Results - last 24 hr 11/13/22 11/13/22 11/13/22 10:17 20:15 20:15 WBC 9.2 RBC 3.26 L Hgb 9.5 L Hct 28.4 L MCV 87.0 MCH 29.0 MCHC 33.3 RDW 14.9 H Plt Count 599 H Neut % (Auto) 53.4 Lymph % (Auto) 22.9 L [place] % (Auto) 8.7 Eos % (Auto) 10.8 H Baso % (Auto) 4.2 H Neut # (Auto) 4900 Lymph # (Auto) 2100 [place] # (Auto) 800 Eos # (Auto) 1000 H Baso # (Auto) 400 H Sodium 139 Potassium 4.1 Chloride 103 Carbon Dioxide 28 BUN 27 H Creatinine 0.82 Estimated GFR > 60 BUN/Creatinine Ratio 32.9 H Glucose 120 H Lactate Calcium 8.8 Magnesium Total Bilirubin 0.5 AST 49 ALT 37 Alkaline Phosphatase 89 Troponin I Total Protein 7.3 Albumin 3.1 L Globulin 4.2 H Albumin/Globulin Ratio 0.7 L Urine Color Yellow Urine Appearance Clear Urine pH 5.5 Ur Specific [place] 1.020 Urine Protein Trace H Urine Glucose (UA) Negative Urine Ketones Negative Urine Occult Blood Negative Urine Nitrate Negative Urine Bilirubin Negative Urine Urobilinogen 0.2 Ur Leukocyte Esterase Negative Urine RBC None seen Urine WBC 0-1/hpf Ur Squamous Epith Cells None seen Urine Bacteria None seen Ur Culture Indicated? Cult not indicated 11/13/22 11/14/22 11/14/22 20:15 03:10 03:10 WBC 9.6 RBC 3.38 L Hgb 10.0 L Hct 29.4 L MCV 87.0 MCH 29.6 MCHC 34.0 RDW 15.3 H Plt Count 590 H Neut % (Auto) 64.1 Lymph % (Auto) 15.7 L [place] % (Auto) 6.7 Eos % (Auto) 10.4 H Baso % (Auto) 3.1 H Neut # (Auto) 6200 Lymph # (Auto) 1500 [place] # (Auto) 600 Eos # (Auto) 1000 H Baso # (Auto) 300 H Sodium 139 Potassium 4.1 Chloride 106 Carbon Dioxide 29 BUN 29 H Creatinine 0.88 Estimated GFR > 60 BUN/Creatinine Ratio 33.0 H Glucose 129 H Lactate 0.9 Calcium 8.8 Magnesium 2.2 Total Bilirubin 0.4 AST 46 ALT 37 Alkaline Phosphatase 110 Troponin I Total Protein 7.4 Albumin 3.3 L Globulin 4.1 Albumin/Globulin Ratio 0.8 L Urine Color Urine Appearance Urine pH Ur Specific [place] Urine Protein Urine Glucose (UA) Urine Ketones Urine Occult Blood Urine Nitrate Urine Bilirubin Urine Urobilinogen Ur Leukocyte Esterase Urine RBC Urine WBC Ur Squamous Epith Cells Urine Bacteria Ur Culture Indicated? 11/14/22 03:10 WBC RBC Hgb Hct MCV MCH MCHC RDW Plt Count Neut % (Auto) Lymph % (Auto) [place] % (Auto) Eos % (Auto) Baso % (Auto) Neut # (Auto) Lymph # (Auto) [place] # (Auto) Eos # (Auto) Baso # (Auto) Sodium Potassium Chloride Carbon Dioxide BUN Creatinine Estimated GFR BUN/Creatinine Ratio Glucose Lactate Calcium Magnesium Total Bilirubin AST ALT Alkaline Phosphatase Troponin I 0.052 H Total Protein Albumin Globulin Albumin/Globulin Ratio Urine Color Urine Appearance Urine pH Ur Specific [place] Urine Protein Urine Glucose (UA) Urine Ketones Urine Occult Blood Urine Nitrate Urine Bilirubin Urine Urobilinogen Ur Leukocyte Esterase Urine RBC Urine WBC Ur Squamous Epith Cells Urine Bacteria Ur Culture Indicated? Exam Vital Signs (past 8 hours): - 11/14/22 00:00 11/14/22 00:00 11/14/22 01:00 Temperature 98.4 F Pulse Rate 93 H 90 Respiratory Rate 26 H 24 Blood Pressure 87/54 L 85/54 L Pulse Oximetry 100 100 Oxygen Delivery Method Mechanical Ventilation Fraction of Inspired Oxygen 0.35 0.35 11/14/22 02:00 11/14/22 03:00 11/14/22 04:00 Temperature 97.9 F Pulse Rate 90 82 82 Respiratory Rate 27 H 22 21 Blood Pressure 97/58 L 92/55 L 128/72 Pulse Oximetry 100 100 100 Oxygen Delivery Method Fraction of Inspired Oxygen 0.35 0.35 0.35 11/14/22 04:00 11/13/22 23:45 11/13/22 23:45 Temperature Pulse Rate 94 H Respiratory Rate 30 H Blood Pressure 93/51 L Pulse Oximetry 100 Oxygen Delivery Method Mechanical Ventilation Fraction of Inspired Oxygen 11/14/22 00:00 11/14/22 00:00 11/14/22 00:15 Temperature Pulse Rate 93 H Respiratory Rate 26 H Blood Pressure 87/54 L 93/51 L Pulse Oximetry 100 Oxygen Delivery Method Fraction of Inspired Oxygen 11/14/22 00:15 11/14/22 00:30 11/14/22 00:30 Temperature Pulse Rate 91 H 91 H Respiratory Rate 26 H 28 H Blood Pressure 98/55 L Pulse Oximetry 100 100 Oxygen Delivery Method Fraction of Inspired Oxygen 11/14/22 00:45 11/14/22 00:45 11/14/22 01:00 Temperature Pulse Rate 91 H Respiratory Rate 26 H Blood Pressure 92/52 L 85/54 L Pulse Oximetry 100 Oxygen Delivery Method Fraction of Inspired Oxygen 11/14/22 01:00 11/14/22 01:15 11/14/22 01:15 Temperature Pulse Rate 90 88 Respiratory Rate 24 25 H Blood Pressure 94/55 L Pulse Oximetry 100 100 Oxygen Delivery Method Fraction of Inspired Oxygen 11/14/22 01:30 11/14/22 01:30 11/14/22 01:45 Temperature Pulse Rate 88 89 Respiratory Rate 26 H 25 H Blood Pressure 92/55 L Pulse Oximetry 100 100 Oxygen Delivery Method Fraction of Inspired Oxygen 11/14/22 01:45 11/14/22 02:00 11/14/22 02:00 Temperature Pulse Rate 90 Respiratory Rate 27 H Blood Pressure 99/57 L 97/58 L Pulse Oximetry 100 Oxygen Delivery Method Fraction of Inspired Oxygen 11/14/22 02:15 11/14/22 02:15 11/14/22 02:30 Temperature Pulse Rate 92 H Respiratory Rate 24 Blood Pressure 100/61 89/51 L Pulse Oximetry 100 Oxygen Delivery Method Fraction of Inspired Oxygen 11/14/22 02:30 11/14/22 02:45 11/14/22 02:45 Temperature Pulse Rate 117 H 84 Respiratory Rate 24 24 Blood Pressure 74/52 L Pulse Oximetry 100 100 Oxygen Delivery Method Fraction of Inspired Oxygen 11/14/22 02:47 11/14/22 02:47 11/14/22 03:00 Temperature Pulse Rate 86 Respiratory Rate 24 Blood Pressure 90/56 L 92/55 L Pulse Oximetry 100 Oxygen Delivery Method Fraction of Inspired Oxygen 11/14/22 03:00 11/14/22 03:15 11/14/22 03:15 Temperature Pulse Rate 82 85 Respiratory Rate 22 24 Blood Pressure 77/52 L Pulse Oximetry 100 100 Oxygen Delivery Method Fraction of Inspired Oxygen 11/14/22 03:23 11/14/22 03:23 11/14/22 03:30 Temperature Pulse Rate 85 Respiratory Rate 22 Blood Pressure 116/58 L 114/59 L Pulse Oximetry 100 Oxygen Delivery Method Fraction of Inspired Oxygen 11/14/22 03:30 11/14/22 03:45 11/14/22 03:45 Temperature Pulse Rate 87 93 H Respiratory Rate 23 22 Blood Pressure 122/59 L Pulse Oximetry 100 100 Oxygen Delivery Method Fraction of Inspired Oxygen 11/14/22 04:00 11/14/22 04:00 11/14/22 04:13 Temperature Pulse Rate 87 88 Respiratory Rate 21 20 Blood Pressure 128/72 Pulse Oximetry 100 100 Oxygen Delivery Method Fraction of Inspired Oxygen 11/14/22 05:00 11/14/22 06:00 Temperature Pulse Rate 76 69 Respiratory Rate 21 18 Blood Pressure 105/87 91/59 L Pulse Oximetry 100 100 Oxygen Delivery Method Fraction of Inspired Oxygen 0.35 0.35 Fraction of Inspired Oxygen 0.35 Oxygen Delivery Method Mechanical Ventilation Oxygen Flow Rate 3 Narrative Exam Narrative: Intubated. Follow commands when off sedation. Quality TeleICU VTE Deep Vein Thrombosis/Pulmonary Embolism Present on Admission: No Assessment & Plan Assessment & Plan narrative: NEURO: # Acute encephalopathy, previous ETOH withdrawal that has improved -- Librium wean, currently 50 q8H -- On precedex gtt, low dose -- RASS goal -1 to 0 -- Avoid BZD -- Once trach/peg complete, recommend PT/OT, mobility -- Daily CAM ICU RESP: # Acute hypoxemic respiratory failure -- Secondary to severe deconditioning and weakness -- Plan for trach and today peg -- HOB elevation -- Aspiration precaution -- PT/OT consultation -- Goal SpO2 > 88% -- Daily SAT and SBT -- Check sputum cx CVS: # Shock -- Secondary previously thought 2/2 positive pressure and sedation but now on minimal sedation, pressures on vent fairly low. -- Concern raises for sepsis -- On levophed and vasopressin -- Sepsis workup as below -- TTE 11/04 showed reduced LV function with concern for stress induced cardiomy opathy -- Repeat TTE pending -- MAP goal > 65 GI -- TFs held for OR, restart when peg cleared by surgery -- PPI QD -- Continue multivitamins Renal -- Normal renal function -- Strict I/O -- Avoid net positive fluid balance ID: # Concern for sepsis, pneumonia, influenza.? Has completed a course of Zosyn. -- Given ongoing shock with no clear insult, will check blood and resp cx -- On zosyn -- Follow up cx HEME: # Anemia -- Secondary to critical illness. No e/o bleed at this time -- Daily CBC. Will check repeat labs post-op today -- Goal Hb > 7 ENDO: -- BS < 180 D/w bedside KRISTEN Valdez. Time Spent With Patient Critical Care time: I spent a total of 33 minutes of critical care time on this patient's care today ; this time is exclusive of procedural time.
--- NOTE | 2022-11-14 07:48 | DI.ECHO.S_ITS ---
[facility]---------+ [facility] +---------+ : : [address] [address] : : : : [id number] : : : : Phone: [phone]---------+ Echocardiogram Report + + :Name: SANA VILLANUEVA Study Date: 11/14/2022 Height: 67 in : :[facility] ReadingLocation: Weight: 123 lb : : Gender: Male BSA: 1.6 m2 : :: 1960 Age: 61 yrs BP: 101/55 mmHg: :Reason For Study: SHOCK : : Performed By: Shaheed Valladares : :Referring: UNSPECIFIED : + + Interpretation Summary Limited Echo: 1) Normal left ventricular size, thickness, wall motion,a nd systolic function (EF 65-70%). 2) The right ventricle is mildly dilated. Right ventricular systolic function is mildly reduced. 3) Compared to the Echo done 11/04/2022, LVEF has improved from 40% to 65-70% on this study. Procedure: A limited echocardiogram was performed to assess for left ventricular function. The study quality was technically adequate. Comparison is made with the echocardiogram of 11/04/22. The patient had frequent PVCs during the exam. Left Ventricle: The left ventricle is normal in size and wall thickness. The ejection fraction is estimated to be 65-70%. There are no focal wall motion abnormalities. Right Ventricle: The right ventricle is mildly dilated. Right ventricular systolic function is mildly reduced. Tricuspid Valve: The tricuspid valve is normal. There is trace tricuspid regurgitation. Right ventricular systolic pressure is estimated to be 25 mmHg plus the clinically estimated CVP which cannot be estimated on this exam. MMode/2D Measurements & Calculations LVIDd: 4.7 cm RVD1 (basal): 3.6 cm LVIDs: 3.0 cm RVD2 (mid): 4.2 cm FS: 36.5 % IVSd: 0.79 cm LVPWd: 0.[address] diameter/BSA (cm/m^2): 2.9 LV sys. diameter/BSA (cm/m^2): 1.8 Doppler Measurements & Calculations TR max stella: 250.2 cm/sec TR max P.0 mmHg Reading Physician:12:21 PM
[2022-11-14] MEDS: NICOTINE 7 MG PATCH TOP (08:23)
[2022-11-14] MEDS: chlordiazePOXIDE 25 MG CAPSULE TUBE ×2 (08:24→20:36)
[2022-11-14] MEDS: PANTOPRAZOLE 40 MG **PACKET PO (08:24)
[2022-11-14] MEDS: HYDROCORTISONE 100 MG/2 ML VIAL 50 MG IV ×4 (08:25→23:18)
[2022-11-14] MEDS: GABAPENTIN 300 MG CAPSULE TUBE ×3 (08:25→20:35)
[2022-11-14 09:17] LABS: Troponin I 0.035 ng/mL (0.01-0.034)
[2022-11-14] MEDS: NOREPINEPHRINE BITARTRATE/D5W 4 MG/250 ML PLAST..BAG 26.25 MG IV (10:25)
[2022-11-14] MEDS: dexmedeTOMIDine in 0.9 % NaCL 400 MCG/100 ML PLAST..BAG 11.5 MCG IV (11:04)
[2022-11-14] MEDS: MORPHINE 2 MG/ML INJ 1 MG IV (11:49)
[2022-11-14] MEDS: fentaNYL 1,000 MCG in DEXTROSE 5% IN WATER 230 ML 9.8 MCG IV (13:31)
--- NOTE | 2022-11-14 15:26 | P.PN_ITS ---
Subjective Subjective Date Patient Seen: 11/14/22 Interval history: No acute events overnight. Continues to be a bit more alert but weak and tired. Not tolerating spontaneous trials. Continues to have delays with trach/PEG due to pressor requirements and concern for active infection from surgical service. Added vasopressin to try to attempt to wean pressors, along with antibiotics added yesterday and stress dose steroids added overnight. Trach/PEG rescheduled now to 11/16. Exam Vital Signs (past 8 hours): - 11/14/22 07:30 11/14/22 07:30 11/14/22 07:45 Temperature Pulse Rate 78 Respiratory Rate 26 H Blood Pressure 99/52 L 110/62 Pulse Oximetry 99 Oxygen Delivery Method 11/14/22 07:45 11/14/22 08:00 11/14/22 08:00 Temperature Pulse Rate 75 69 Respiratory Rate 25 H 22 Blood Pressure 95/58 L Pulse Oximetry 99 99 Oxygen Delivery Method 11/14/22 08:15 11/14/22 08:15 11/14/22 09:11 Temperature 98.0 F Pulse Rate 68 Respiratory Rate 25 H Blood Pressure 91/62 Pulse Oximetry 100 Oxygen Delivery Method 11/14/22 07:40 11/14/22 07:50 11/14/22 08:10 Temperature Pulse Rate 86 85 69 Respiratory Rate 27 H 29 H 23 Blood Pressure Pulse Oximetry 97 99 99 Oxygen Delivery Method 11/14/22 08:20 11/14/22 08:30 11/14/22 08:30 Temperature Pulse Rate 69 68 Respiratory Rate 24 27 H Blood Pressure 91/61 Pulse Oximetry 100 100 Oxygen Delivery Method 11/14/22 08:40 11/14/22 08:45 11/14/22 08:45 Temperature Pulse Rate 71 70 Respiratory Rate 24 22 Blood Pressure 84/57 L Pulse Oximetry 99 99 Oxygen Delivery Method 11/14/22 08:50 11/14/22 09:00 11/14/22 09:00 Temperature Pulse Rate 68 69 Respiratory Rate 22 23 Blood Pressure 102/77 Pulse Oximetry 100 100 Oxygen Delivery Method 11/14/22 09:10 11/14/22 09:15 11/14/22 09:15 Temperature Pulse Rate 67 67 Respiratory Rate 16 18 Blood Pressure 93/60 Pulse Oximetry 100 100 Oxygen Delivery Method 11/14/22 09:20 11/14/22 09:30 11/14/22 09:30 Temperature Pulse Rate 70 71 Respiratory Rate 22 31 H Blood Pressure 99/71 Pulse Oximetry 100 100 Oxygen Delivery Method 11/14/22 09:40 11/14/22 09:50 11/14/22 10:00 Temperature Pulse Rate 66 68 Respiratory Rate 16 20 Blood Pressure 95/61 Pulse Oximetry 100 100 Oxygen Delivery Method 11/14/22 10:00 11/14/22 10:10 11/14/22 10:15 Temperature Pulse Rate 68 66 Respiratory Rate 16 16 Blood Pressure 98/64 Pulse Oximetry 100 100 Oxygen Delivery Method 11/14/22 10:15 11/14/22 10:20 11/14/22 10:30 Temperature Pulse Rate 67 66 Respiratory Rate 16 16 Blood Pressure 99/60 Pulse Oximetry 100 100 Oxygen Delivery Method 11/14/22 10:30 11/14/22 10:40 11/14/22 10:44 Temperature Pulse Rate 64 65 64 Respiratory Rate 16 16 16 Blood Pressure Pulse Oximetry 100 100 100 Oxygen Delivery Method 11/14/22 10:45 11/14/22 10:45 11/14/22 10:50 Temperature Pulse Rate 65 66 Respiratory Rate 16 16 Blood Pressure 92/64 Pulse Oximetry 100 100 Oxygen Delivery Method 11/14/22 11:00 11/14/22 11:00 11/14/22 08:00 Temperature Pulse Rate 68 Respiratory Rate 16 Blood Pressure 101/55 L Pulse Oximetry 100 Oxygen Delivery Method Mechanical Ventilation 11/14/22 12:00 Temperature Pulse Rate Respiratory Rate Blood Pressure Pulse Oximetry Oxygen Delivery Method Mechanical Ventilation Fraction of Inspired Oxygen 0.35 Oxygen Delivery Method Mechanical Ventilation Oxygen Flow Rate 3 Narrative Exam Narrative: GEN:? Ill-appearing middle-aged male, intubated, lightly sedated follows simple commands. HEENT:NC, Face symmetric CHEST: Respiratory excursions symmetric, coarse but CTAB CV: RRR, no M/R/G ABD: Soft, NT/ND, BT present in all 4 quadrants, no organomegaly or masses EXTR: warm, well perfused, no C/C/E SKIN: warm and dry, no rash NEURO:? Intubated, lightly sedated, follows simple commands. Objective Labs Result Diagrams: 11/14/22 03:10 11/14/22 03:10 Labs: Laboratory Results - last 24 hr 11/13/22 11/13/22 11/13/22 20:15 20:15 20:15 WBC 9.2 RBC 3.26 L Hgb 9.5 L Hct 28.4 L MCV 87.0 MCH 29.0 MCHC 33.3 RDW 14.9 H Plt Count 599 H Neut % (Auto) 53.4 Lymph % (Auto) 22.9 L [place] % (Auto) 8.7 Eos % (Auto) 10.8 H Baso % (Auto) 4.2 H Neut # (Auto) 4900 Lymph # (Auto) 2100 [place] # (Auto) 800 Eos # (Auto) 1000 H Baso # (Auto) 400 H Sodium 139 Potassium 4.1 Chloride 103 Carbon Dioxide 28 BUN 27 H Creatinine 0.82 Estimated GFR > 60 BUN/Creatinine Ratio 32.9 H Glucose 120 H Lactate 0.9 Calcium 8.8 Magnesium Total Bilirubin 0.5 AST 49 ALT 37 Alkaline Phosphatase 89 Troponin I Total Protein 7.3 Albumin 3.1 L Globulin 4.2 H Albumin/Globulin Ratio 0.7 L 11/14/22 11/14/22 11/14/22 03:10 03:10 03:10 WBC 9.6 RBC 3.38 L Hgb 10.0 L Hct 29.4 L MCV 87.0 MCH 29.6 MCHC 34.0 RDW 15.3 H Plt Count 590 H Neut % (Auto) 64.1 Lymph % (Auto) 15.7 L [place] % (Auto) 6.7 Eos % (Auto) 10.4 H Baso % (Auto) 3.1 H Neut # (Auto) 6200 Lymph # (Auto) 1500 [place] # (Auto) 600 Eos # (Auto) 1000 H Baso # (Auto) 300 H Sodium 139 Potassium 4.1 Chloride 106 Carbon Dioxide 29 BUN 29 H Creatinine 0.88 Estimated GFR > 60 BUN/Creatinine Ratio 33.0 H Glucose 129 H Lactate Calcium 8.8 Magnesium 2.2 Total Bilirubin 0.4 AST 46 ALT 37 Alkaline Phosphatase 110 Troponin I 0.052 H Total Protein 7.4 Albumin 3.3 L Globulin 4.1 Albumin/Globulin Ratio 0.8 L 11/14/22 08:20 WBC RBC Hgb Hct MCV MCH MCHC RDW Plt Count Neut % (Auto) Lymph % (Auto) [place] % (Auto) Eos % (Auto) Baso % (Auto) Neut # (Auto) Lymph # (Auto) [place] # (Auto) Eos # (Auto) Baso # (Auto) Sodium Potassium Chloride Carbon Dioxide BUN Creatinine Estimated GFR BUN/Creatinine Ratio Glucose Lactate Calcium Magnesium Total Bilirubin AST ALT Alkaline Phosphatase Troponin I 0.035 H Total Protein Albumin Globulin Albumin/Globulin Ratio [facility] Medical History (Updated 11/11/22 @ 10:54 by Corey Masters MD) Acid reflux Alcohol abuse Ankle pain Ankylosing spondylitis (1985) Ankylosing spondylitis Chronic back pain Foot pain Fracture cervical vertebra-closed GERD (gastroesophageal reflux disease) Hypertension Hypertension Muscle pain Tobacco use disorder, moderate, in early remission Surgical History History of open reduction and internal fixation (ORIF) procedure (2005) History of tonsillectomy Status post colonoscopy (2012) Status post incision and drainage Family History Father No problems noted. Mother Cancer Other Alcoholism Colorectal cancer Social History Smoking Status: Current every day smoker Assessment & Plan Assessment & Plan narrative: 1. Acute hypoxic respiratory failure secondary to bacterial pneumonia He remains intubated/mechanically ventilated, he partially self - extubated morning of 11/04, but required reintubation on?evening of 11/04. Continue ventilator support.? He has failed several trials of ventilator weaning. The Zosyn and vancomycin for pneumonia initally was stopped 11/10 after completing therapy but rising wbc again a few days after antibiotics stopped with repeat CXR showing a LLL infiltrate so restarted on 11/13. As noted, IV furosemide was held due to hypotension. General Surgery consulted and will likely place a tracheostomy on on 11/16 now, and has been delayed recently due to recent increase in pressor requirements. 2. Bilateral bacterial pneumonia [place] to be superinfection in the setting of influenza A.?Now completed antibiotic therapies on 11/10 but another possible pneumonia 11/13 restarted on zosyn as noted above. 3. Influenza A Positive test on October 30.? At this point, influenza has resolved.? 4. Alcohol dependence with withdrawal Patient is presently on a Precedex drip.? He remains on Librium as well, folic acid, and multivitamin. Continue to wean from librium, will reduce to 25 mg BID via tube. 5. Heroin dependence Continuing supportive care. 6. septic shock with acute end-organ failure patient presented with pneumonia, lactic acidosis, leukocytosis, tachycardia, and hypoxia.? Symptoms and signs of sepsis have overall improved.?Initially was felt his ongoing hypotension was likely secondary to sedation. However he then developed worsening pressor requirements as noted above. Antibiotics were restarted, with repeat cultures drawn. CXR did show a LLL pneumonia. UA was unremarkable. Stress dose steroids added PM of 11/13, vasopression added 11/14 and levophed was slightly reduced. 7. Acute metabolic encephalopathy Likely multifactorial from infection, sepsis, alcohol withdrawal. 8. Essential hypertension On metoprolol on an outpatient basis.? This has been held in the setting of ongoing difficulties with hypotension and need for pressors. 9. Protein calorie malnutrition Remains on tube feed Glucerna per OGT. 10. Normocytic anemia Hemoglobin was 10.8 on admission.? Currently stable at 9.6. 11. Thrombocytosis Platelets are 689.? Likely reactive in nature. Code status Full Prophylaxis Lovenox Disposition ICU. LTAC does not accepts patient's insurance. I spent 35 minutes providing critical care management this patient. This excludes time spent in performing separately billed procedures. Time Spent With Patient Critical Care time: I spent a total of [] minutes of critical care time on this patient's care today; this time is exclusive of procedural time. Quality VTE Deep Vein Thrombosis/Pulmonary Embolism Present on Admission: No
--- NOTE | 2022-11-14 15:54 | CM.DPC ---
DCP/continued: Reviewed chart. Patient scheduled to have trach and PEG tube placements for the last few days. Again, today procedure cancelled until tomorrow 12-22. OSD CLERK placed call to Deborah at [facility] and spoke with Medicaid re: d/c options once trach and PEG placed. Deborah reports that they don't take straight Medicaid but that they do take [facility]. Deborah reports if patient plan changes to [facility] they could accept, if that happens she would like updated clinical faxed to [phone]. Spoke with Medicaid and they offered no solutions. OSD CLERK placed call to Gui in Admitting to check on whether or not patient or DPOA could request change from straight Medicaid to CHPW. Gui and staff checking into this. If so patient could then go to [facility]. If unable to change Deborah provided OSD CLERK with 3 respiratory SNF's that accept vents they are: !)[facility] 2)[facility] and 3)[facility]. All three will need to be tried if patient unable to transition to [facility]. Unsure if above 3 faclities will take straight Medicaid as well. Would suggest CM team do expedited LUIS application for long-term care and check with [facility] to find out what they can offer group home. In the meantime, CM team to check with Admitting tomorrow either Gui or Erin to see if plan could be changed. P: Pending. CAROL
--- NOTE | 2022-11-14 16:13 | DIET.CONS2 ---
Dietary Inpatient Consultation Note Admission Date: 10/30/2022 20:22 Pt with feeding not at goal rate x3d due to surgical schedule changes. Pt currently back on TF at goal until midnight when he will be NPO for PEG placement. Pt tolerating new intermittent feeding schedule with protein packet to support sacrum breakdown. Plan to resume goal rate once cleared by surgery for PEG use. Diet: 11/05/22 Dinner Tube Feeding Diet Diet Modifications: add 1 packet prosource TF when initiating feed/d TF Supplement type: Glucerna 1.5 leroy TF mode of delivery: Continuous Starting flow rate mL/hr: 10 Flow rate goal mL/hr: 68 Titration Schedule to reach Goal Rate: on for 16hrs and off for 8 Max total daily volume in mL: 2,000 Free fluid: 150 Free Water Frequency: Q4H Comment: fluids to be managed by hospitalist/university intern 11/06/22 Breakfast Courtesy Sukhjinder (Peds, comfort care) Diet Modifications: 11/15/22 00:01 NPO Diet Diet Modifications: NPO Type: Strict Nutrition Type of Feeding Tube NG/OG 11/13/22 15:00 Electronically Signed by: Pati Parikh 11/14/22 16:13 Clinical Dietitian [address] [address]
[2022-11-14] MEDS: dexmedeTOMIDine in 0.9 % NaCL 400 MCG/100 ML PLAST..BAG 8.625 MCG IV (17:10)
[2022-11-14 18:03] LABS: Troponin I 0.031 ng/mL (0.01-0.034)
--- NOTE | 2022-11-14 20:59 | PM.ICURNDS ---
- :: This patient was seen via real time interactive two-way audiovisual telecommunication. patint remains opn levophed, pending possible trach and peg tomorrow. NPO, will f/u abg and labs.
[2022-11-14] MEDS: NOREPINEPHRINE BITARTRATE/D5W 4 MG/250 ML PLAST..BAG 15 MG IV (21:51)
[2022-11-14] MEDS: LORazepam 2 MG/ML INJ 1 MG IV (22:01)
[2022-11-15] VITALS (82 sets, daily range): BP systolic 79–132; BP diastolic 51–77; PULSE 46–131; RESP 0–36; TEMP 36.2–36.9; O2SAT 87–100
[2022-11-15] MEDS: LORazepam 2 MG/ML INJ 1 MG IV ×2 (01:31→06:23)
--- NOTE | 2022-11-15 04:07 | PC.NURSE ---
decreasing sedation for patient throughout shift. patient slowly waking up and trying to make needs known. at 0400 check patient trying to pecan picker leg and arms to be placed on pillows. nodding head yes and no to simple questions
[2022-11-15 04:23] LABS: Add Manual Diff / Slide Review NO; Basophils Absolute Auto 0 /uL (0-100); Basophils Percent Auto 0.7 % (0-2); Eosinophils Absolute Auto 0 /uL (0-450); Eosinophils Percent Auto 0.2 % (2-4); Hematocrit 26.4 % (41-53); Hemoglobin 8.9 g/dL (13.5-17.5); Lymphocytes Absolute Auto 800 /uL (1100-4500); Lymphocytes Percent Auto 11.9 % (25-40); Mean Corpuscular HGB Conc 33.8 % (30-36); Mean Corpuscular Hemoglobin 29.3 PG (26-34); Mean Corpuscular Volume 86.8 fL (80-100); Monocytes Absolute Auto 300 /uL (0-900); Monocytes Percent Auto 4.1 % (3-14); Neutrophils Absolute Auto 5500 /uL (1500-7000); Neutrophils Percent Auto 83.1 % (50-75); Platelet Count 471 X10^3/uL (150-400); Red Blood Cell Count 3.04 X10^6/uL (4.5-5.9); Red Cell Distribution Width 15.7 % (11.6-14.8); White Blood Cell Count 6.6 X10^3/uL (4.5-11.0)
[2022-11-15 04:30] LABS: Alanine Aminotransferase 32 IU/L (<50); Albumin 3.3 g/dL (3.5-5.0); Albumin Globulin Ratio 0.8 (1.0-2.8); Alkaline Phosphatase 86 U/L (38-126); Aspartate Aminotransferase 37 IU/L (17-59); BUN Creatinine Ratio 33.8 (6-22); Bilirubin Total 0.3 mg/dL (0.2-1.3); Blood Urea Nitrogen 26 mg/dL (9-20); Calcium 8.9 mg/dL (8.4-10.2); Carbon Dioxide 27 mmol/L (22-32); Chloride 108 mmol/L (98-107); Estimated Glomerular Filt Rate > 60 mL/min (>60); Globulin 3.9 g/dL (1.7-4.1); Glucose 140 mg/dL (80-110); HEMOLYSIS < 15 (0-50); Potassium 3.5 mmol/L (3.4-5.1); Sodium 142 mmol/L (137-145); Total Protein 7.2 g/dL (6.3-8.2)
[2022-11-15] MEDS: CHLORHEXIDINE GLUCONATE 15 ML CUP PO ×2 (05:08→13:19)
[2022-11-15] MEDS: HYDROCORTISONE 100 MG/2 ML VIAL 50 MG IV ×4 (05:08→23:52)
[2022-11-15] MEDS: PIPERACILLIN/TAZO 3.375 GM in SODIUM CHLORIDE 0.9% 100 ML IV ×3 (05:08→20:32)
[2022-11-15] MEDS: dexmedeTOMIDine in 0.9 % NaCL 400 MCG/100 ML PLAST..BAG IV (05:27)
[2022-11-15] MEDS: chlordiazePOXIDE 25 MG CAPSULE TUBE ×2 (08:27→20:32)
[2022-11-15] MEDS: MULTIVITAMIN 1 TABLET 1 TAB PO (08:27)
[2022-11-15] MEDS: FOLIC ACID 1 MG TABLET PO (08:27)
[2022-11-15] MEDS: GABAPENTIN 300 MG CAPSULE TUBE ×3 (08:28→20:32)
[2022-11-15] MEDS: PANTOPRAZOLE 40 MG **PACKET PO (08:31)
--- NOTE | 2022-11-15 09:50 | RT ---
DR. VALERO NOTIFIED OF WEANING RESULTS. PER VERBAL ORDER, WILL MAINTAIN PT ON PSV TOLERATED.
[2022-11-15] MEDS: NICOTINE 7 MG PATCH TOP (10:01)
[2022-11-15] MEDS: VASOPRESSIN 40 UNIT in SODIUM CHLORIDE 0.9% 100 ML 6 UNIT IV (10:47)
--- NOTE | 2022-11-15 11:07 | PM.PREOP ---
Pre-operative Note COVID-19 COVID-19 status: Negative Criteria for continued procedure: Delay expected to result in less-positive ultimate med/surg outcome Interval Note History & Physical reviewed/Exam performed by Physician: Yes Changes to H&P: Yes H&P completed within 30 days and has changed as indicated here:: unable to extubate. Needs PEG and trach
--- NOTE | 2022-11-15 11:19 | RT ---
PT PLACED ON A/C PRIOR TO RECYCLING TECHNICIAN AND TRANSFER TO OR BY ANESTHESIOLOGIST. PT TRANSFERRED VIA BAG/MASK VENTILATION BY ANESTHESIOLOGIST.
--- NOTE | 2022-11-15 11:43 | SUR.OPER ---
ABRASION LEFT HIP, 2 LINES 2-3 INCHES LONG SCABBED OVER, PINK ALYVEN TO BUTTOCKS X2 CLEAN DRY AND INTACT, PINK ALYVEN TO LEFT ELBOW CLEAN DRY AND INTACT. ADULT DIAPER REMOVED PERINEUM WITH SMALL AMOUNT OF FECES PRESENT CLEANED WITH PERINEUM WIPES,
--- NOTE | 2022-11-15 11:46 | SUR.OPER ---
VERBAL TELEPHONE CONSENT OBTAINED BY SURGEON AND ANESTHESIOLOGISTS IN ICU CONFIRMED BY CHIEF CLOTH FINISHING RANGE OPERATOR AND GAS CUTTING MACHINE OPERATOR, PATIENT ALERT APPROP[RIATE NON VERBAL RESPONSES TO QUESTIONS INDICATES UNDERSTANDING OF PLAN AND AGREEMENT TO PROCEDURE.
--- NOTE | 2022-11-15 12:06 | SUR.OPER ---
Supine on padded OR bed, head on pillow x2, arms padded with gel and tucked at sides, legs uncrossed, safety belt at thigh, tape over blanket over lower legs, gel to heels.
[2022-11-15] MEDS: BUPIVACAINE 0.5% W/ EPI (PF) 30 ML VIAL INJ (12:14)
--- NOTE | 2022-11-15 12:55 | PM.OP.1 ---
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 Otherwise normal anatomy Closure Type: not applicable Specimen(s): none sent Prosthetic devices, grafts, tissues, transplants, or devices: 20 Luxembourger feeding tube, 6. Shiley trach Estimated Blood Loss (mL): 20 Procedure in detail: Preop diagnosis: Respiratory failure, ventilator dependent Postop diagnosis: Same Operative procedure: Peg tube placement and tracheostomy Surgeon: Justine Barbour MD Anesthetic: General Findings: Rigid cervical spine due to fusion unable to flex the neck. Otherwise normal anatomy Procedure: Patient placed in a supine position. Prepped and draped in sterile fashion to expose his abdomen and then later his neck. EGD scope was used to position a Angiocath percutaneously through the left upper quadrant to retrieve wire and pulled through a feeding tube, 20 Luxembourger. Peg tube was matured and sterile dressings were placed. The neck was prepped and draped in a sterile fashion. Curvilinear incision was created over the palpable trach just above the clavicles. Due to his positioning and fused spine with the trachea dove deep into the neck. Sharp and blunt dissection along with electrocautery allowed me to expose the trachea. A cut was made between the rings. Tracheal ring 2. Was cut as a flap and with a 2 0 Prolene was sutured to the anterior skin. Incision was created large enough to accept a 6 Shiley tracheostomy tube. With good end-tidal and lung volumes with the ET tube removed and using his tracheostomy tube alone. The sides of the tracheostomy tube were sutured to the skin with 2-0 Prolene. And a trach tape was placed around the neck. Patient was taken straight to ICU for continued care. Specimen: None Blood loss: 10 mL Complications: none Post-operative Condition: stable Disposition: ICU
[2022-11-15] MEDS: POTASSIUM CHLORIDE 20 MEQ/15 ML UDC 40 MEQ TUBE (13:21)
--- NOTE | 2022-11-15 13:29 | P.TELICUPN_ITS ---
Subjective Subjective IF CAMERA ACTIVATED, patient seen via real-time interactive audiovisual communication: Camera activated Consent obtained for tele-environmental compliance specialist care: Yes Patient Location: ICU Provider location (State): [place] Other participants/roles: RN Interval history: Pt mental stauts is improved, was following commands and doing well on PSV, howeer sec reiton load is moderate and he has a weak cough. Pending trach this afternoon Current Medications Current Medications Medications: Home Medications indomethacin 50 mg capsule 50 mg PO TIDP PRN pain, moderate #90 caps 10/13/18 [Rx Confirmed 11/13/22] amitriptyline 25 mg tablet 25 mg PO BEDTIME #30 tabs 01/07/19 [Rx Confirmed 11/13/22] cyclobenzaprine 10 mg tablet 10 mg PO TIDP #90 tabs 11/19/19 [Rx Confirmed 11/13/22] gabapentin 300 mg capsule (Neurontin) 300 mg PO Q8H #90 caps 11/19/19 [Rx Confirmed 11/13/22] metoprolol succinate 50 mg tablet,extended release 24 hr (Toprol XL) 50 mg PO BID #60 tabs 11/19/19 [Rx Confirmed 11/13/22] omeprazole 20 mg capsule,delayed release 20 mg PO QDAY #30 caps 11/19/19 [Rx Co nfirmed 11/13/22] Visit Medications (administered) Generic Name Dose Route Start Last Admin Trade Name Freq PRN Reason Stop Dose Admin Acetaminophen 650 mg 11/11/22 07:55 11/13/22 22:13 Acetaminophen Susp 650 Mg/20.3 Ml Udc TUBE 650 mg Q6H PRN Administration Fever/Mild Pain (1-3) Chlordiazepoxide HCl 25 mg 11/14/22 21:00 11/15/22 08:27 Chlordiazepoxide 25 Mg Capsule TUBE 25 mg BID JYOTI Administration Chlorhexidine Gluconate 15 ml 10/31/22 18:00 11/15/22 13:19 Chlorhexidine Gluconate 15 Ml Cup PO 15 ml Q6HR JYOTI Administration Enoxaparin Sodium 40 mg 11/06/22 12:00 11/15/22 08:27 Enoxaparin 40 Mg/0.4 Ml Syringe SUBCUT Not Given DAILY JYOTI Folic Acid 1 mg 10/31/22 09:00 11/15/22 08:27 Folic Acid 1 Mg Tablet PO 1 mg DAILY JYOTI Administration Gabapentin 300 mg 11/06/22 09:45 11/15/22 08:28 Gabapentin 300 Mg Capsule TUBE 300 mg TID JYOTI Administration Hydrocortisone 50 mg 11/14/22 07:40 11/15/22 13:15 Hydrocortisone 100 Mg/2 Ml Vial IV 50 mg Q6HR JYOTI Administration Sodium Chloride 500 mls @ 1,000 mls/hr 10/31/22 14:03 11/14/22 08:00 Normal Saline 0.9% IV Infused BOLUS PRN Infusion Fluid replacement NOREPINEPHRINE BITARTRATE/D5W 4 mg in 250 mls @ 30 mls/hr 11/04/22 22:51 11/14/22 21:51 Levophed IV 4 mcg/min TITRATE JYOTI 15 mls/hr Administration Protocol 8 MCG/MIN dexmedeTOMIDine in 0.9 % NaCL 400 mcg in 100 mls @ 2.875 mls/hr 11/06/22 10:15 11/15/22 09:48 Precedex IV 0.2 mcg/kg/hr TITRATE JYOTI 2.875 mls/hr Titration Protocol 0.2 MCG/KG/HR Piperacillin Sod/Tazobactam 100 mls @ 25 mls/hr 11/13/22 13:15 11/15/22 13:14 Sod 3.375 gm/ Sodium Chloride IV 11/23/22 09:14 25 mls/hr Q8H JYOTI Administration Vasopressin 40 unit/ Sodium 102 mls @ 6 mls/hr 11/14/22 03:30 11/15/22 10:47 Chloride IV 6 mls/hr CONT JYOTI Administration Fentanyl 1,000 mcg/ Dextrose 250 mls @ 9.8 mls/hr 11/14/22 12:15 11/15/22 10:42 IV 0.5 mcg/kg/hr TITRATE JYOTI 7 mls/hr Titration Protocol 0.7 MCG/KG/HR Lorazepam 0 mg 10/31/22 00:42 11/04/22 14:03 Lorazepam 2 Mg/Ml Inj IV 2 mg CIWAPRN PRN Administration Alcohol Withdrawal/n/V Protocol Lorazepam 1 mg 11/04/22 09:37 11/15/22 06:23 Lorazepam 2 Mg/Ml Inj IV 1 mg Q2HR PRN Administration Anxiety Morphine Sulfate 1 mg 11/04/22 09:38 11/14/22 11:49 Morphine 2 Mg/Ml Inj IV 1 mg Q2HR PRN Administration Pain, Moderate (4-6) Multivitamins 1 tab 10/31/22 09:00 11/15/22 08:27 Multivitamin 1 Tablet PO 1 tab DAILY JYOTI Administration Nicotine 7 mg 10/31/22 09:00 11/15/22 10:01 Nicotine 7 Mg Patch TOP 7 mg DAILY JYOTI Administration Ondansetron HCl 4 mg 10/31/22 01:07 11/12/22 23:15 Ondansetron 4 Mg/2 Ml Inj IV 4 mg Q4HR PRN Administration Nausea And Vomiting Pantoprazole Sodium 40 mg 11/13/22 09:00 11/15/22 08:31 Pantoprazole 40 Mg Packet PO 40 mg DAILY JYOTI Administration Objective Ventilator Parameters: Ventilator Settings FiO2 30 CPAP Pressure Amount 5 RT Vent Frequency 16 Ventilator Tidal Volume 460 Exhaled Vt/kg IBW 7 Positive End Expiratory 5 Pressure Ventilator Pressure Support 5 Inspiratory Phase Time 0.8 I:E Ratio 1:3.7 Patient Position HOB >= 30 degrees Labs Result Diagrams: 11/15/22 03:30 11/15/22 03:30 Labs: Laboratory Results - last 24 hr 11/14/22 11/15/22 11/15/22 17:31 03:30 03:30 WBC 6.6 RBC 3.04 L Hgb 8.9 L Hct 26.4 L MCV 86.8 MCH 29.3 MCHC 33.8 RDW 15.7 H Plt Count 471 H Neut % (Auto) 83.1 H Lymph % (Auto) 11.9 L [place]on % (Auto) 4.1 Eos % (Auto) 0.2 L Baso % (Auto) 0.7 Neut # (Auto) 5500 Lymph # (Auto) 800 L [place] # (Auto) 300 Eos # (Auto) 0 Baso # (Auto) 0 Sodium 142 Potassium 3.5 Chloride 108 H Carbon Dioxide 27 BUN 26 H Creatinine 0.77 Estimated GFR > 60 BUN/Creatinine Ratio 33.8 H Glucose 140 H Calcium 8.9 Magnesium 2.0 Total Bilirubin 0.3 AST 37 ALT 32 Alkaline Phosphatase 86 Troponin I 0.031 Total Protein 7.2 Albumin 3.3 L Globulin 3.9 Albumin/Globulin Ratio 0.8 L Exam Vital Signs (past 8 hours): - 11/15/22 07:00 11/15/22 07:04 11/15/22 07:04 Temperature Pulse Rate 72 68 Respiratory Rate 22 24 Blood Pressure 113/62 Pulse Oximetry 100 100 Oxygen Delivery Method 11/15/22 07:10 11/15/22 07:15 11/15/22 07:15 Temperature Pulse Rate 81 83 Respiratory Rate 25 H 22 Blood Pressure 111/61 Pulse Oximetry 97 100 Oxygen Delivery Method 11/15/22 07:20 11/15/22 07:30 11/15/22 07:30 Temperature Pulse Rate 70 86 Respiratory Rate 17 33 H Blood Pressure 123/66 Pulse Oximetry 100 100 Oxygen Delivery Method 11/15/22 07:40 11/15/22 08:00 11/15/22 08:00 Temperature 98.4 F Pulse Rate 78 Respiratory Rate 20 Blood Pressure 128/72 Pulse Oximetry 100 Oxygen Delivery Method Mechanical Ventilation 11/15/22 08:00 11/15/22 08:10 11/15/22 09:05 Temperature Pulse Rate 62 56 L Respiratory Rate 16 16 Blood Pressure Pulse Oximetry 100 100 100 Oxygen Delivery Method 11/15/22 09:00 11/15/22 09:00 11/15/22 09:10 Temperature Pulse Rate 64 71 Respiratory Rate 16 11 L Blood Pressure 110/70 Pulse Oximetry 100 100 Oxygen Delivery Method 11/15/22 10:00 11/15/22 10:00 11/15/22 10:10 Temperature Pulse Rate 75 75 Respiratory Rate 20 20 Blood Pressure 101/61 Pulse Oximetry 100 100 Oxygen Delivery Method Fraction of Inspired Oxygen 0.30 Oxygen Delivery Method Mechanical Ventilation Oxygen Flow Rate 3 Narrative Exam Narrative: surrogate for exam is primary team Quality TeleICU VTE Deep Vein Thrombosis/Pulmonary Embolism Present on Admission: No Assessment & Plan Assessment & Plan narrative: NEURO: # Acute encephalopathy, previous ETOH withdrawal that has improved -- Librium wean, currently 50 q8H -- On precedex gtt, low dose -- RASS goal -1 to 0 -- Avoid BZD -- Once trach/peg complete, recommend PT/OT, mobility -- Daily CAM ICU RESP: # Acute hypoxemic respiratory failure -- Secondary to severe deconditioning and weakness -- Plan for trach and today peg -- HOB elevation -- Aspiration precaution -- PT/OT consultation -- Goal SpO2 > 88% -- Daily SAT and SBT -- Check sputum cx CVS: # Shock -- Secondary previously thought 2/2 positive pressure and sedation but now on minimal sedation, pressures on vent fairly low. -- offp ressors today -- goal map > 65 GI -- TFs held for OR, restart when peg cleared by surgery -- PPI QD -- Continue multivitamins Renal -- Normal renal function -- Strict I/O -- Avoid net positive fluid balance ID: # Concern for sepsis, pneumonia, influenza.? Has completed a course of Zosyn. -- On zosyn again for prolonged course -- Follow up cx HEME: # Anemia -- Secondary to critical illness. No e/o bleed at this time -- Daily CBC. Will check repeat labs post-op today -- Goal Hb > 7 ENDO: -- BS < 180 D/w bedside RN José Miguel. Time Spent With Patient Critical Care time: I spent a total of 35 minutes of critical care time on this patient's care today; this time is exclusive of procedural time.
[2022-11-15] MEDS: NOREPINEPHRINE BITARTRATE/D5W 4 MG/250 ML PLAST..BAG 15 MG IV (13:48)
[2022-11-15] MEDS: fentaNYL 1,000 MCG in DEXTROSE 5% IN WATER 230 ML 7 MCG IV (13:49)
--- NOTE | 2022-11-15 15:25 | CM.DPNOTE ---
Addendum entered by VARGAS Alejandra 11/16/22 16:39: ADD: Dtmaria teresa Abada Bjorn cell: [phone] email: [email or web address]. Radha is the health Scrape Gatherer for the [facility] and able to get assistance within her clinic on accessing the medicaid exchange. the current barrier is that [facility] requests form [facility] [id number] be completed by patient to designate an authorized teleservices representative. Patient cannot sign this form currently, sedated, vented. This QUALITY CONTROL ASSISTANT Completed form, signed indicating that patient is/will not be mentally capable of signing form. Faxed to [facility] [phone] per instructions and updated dtr Radha via email Plan TBD- unsure [facility] will accept form without patient's signature (?) [facility] states it is required for an advocate to change a client's coverage JW Original Note: DCP Note Trach and peg placed today. According to admitting, in order to change patient's Classic Medicaid to a managed medicaid, patient or his assigned advocate/teleservices representative will need to call the Healthcare Authority ([facility]) at [phone] Placed call to patient's daughter and LUCRETIA Enamorado P# [phone] reviewed the role of the CM team, discussed DCP efforts and explained that patient's classic medicaid is a barrier to securing placement at [facility] vs SNF [facility] agreed to place call to the [employer] exchange. Provided information from patient's demo sheet and provided number for [employer] exchange CM team will plan to follow closely and follow up w/dtmaria teresa Enamorado re call to [employer] exchange JW
--- NOTE | 2022-11-15 16:15 | DIET.CONS2 ---
Dietary Inpatient Consultation Note Admission Date: 10/30/2022 20:22 RD updated diet order. Jevity 1.5 formula on backorder, pt ordered for Glucerna 1.5. Diet: 11/15/22 Dinner Tube Feeding Diet Diet Modifications: TF Supplement type: Glucerna 1.5 leroy TF mode of delivery: Continuous Starting flow rate mL/hr: 10 Flow rate goal mL/hr: 68 Titration Schedule to reach Goal Rate: per dietary Max total daily volume in mL: 130 Free fluid: 100 Free Water Frequency: Q12H Comment: run from 0500 till 2100 then none for next 8 hrs Nutrition Type of Feeding Tube PEG 11/15/22 13:05 Electronically Signed by: Pati Parikh 11/15/22 16:15 Clinical Dietitian [address] [address]
--- NOTE | 2022-11-15 16:29 | PM.PN.1 ---
Subjective Subjective Date Patient Seen: 11/15/22 Interval history: No acute events overnight. He was on less pressor support this morning. He is more alert, and tolerated breathing trial for about 30 minutes. Discussed possible extubation, but given weakness, poor cough, likely some atrophy plan to proceed with trach/PEG was continued. Trach/PEG planned for today. Exam Vital Signs (past 8 hours): - 11/15/22 09:05 11/15/22 09:00 11/15/22 09:00 Temperature Pulse Rate 64 Respiratory Rate 16 Blood Pressure 110/70 Pulse Oximetry 100 100 Oxygen Delivery Method 11/15/22 09:10 11/15/22 10:00 11/15/22 10:00 Temperature Pulse Rate 71 75 Respiratory Rate 11 L 20 Blood Pressure 101/61 Pulse Oximetry 100 100 Oxygen Delivery Method 11/15/22 10:10 11/15/22 13:00 11/15/22 13:00 Temperature 97.1 F L Pulse Rate 75 77 69 Respiratory Rate 20 13 Blood Pressure 119/73 Pulse Oximetry 100 100 100 Oxygen Delivery Method 11/15/22 13:10 11/15/22 13:15 11/15/22 13:15 Temperature 97.1 F L Pulse Rate 78 81 Respiratory Rate 15 16 Blood Pressure 117/64 125/67 Pulse Oximetry 100 100 Oxygen Delivery Method 11/15/22 13:20 11/15/22 13:30 11/15/22 13:30 Temperature Pulse Rate 80 82 Respiratory Rate 12 18 Blood Pressure 132/76 Pulse Oximetry 100 99 Oxygen Delivery Method 11/15/22 13:40 11/15/22 13:45 11/15/22 13:45 Temperature Pulse Rate 76 75 Respiratory Rate 13 17 Blood Pressure 117/64 Pulse Oximetry 99 99 Oxygen Delivery Method 11/15/22 13:58 11/15/22 14:00 11/15/22 14:00 Temperature 97.3 F L Pulse Rate 72 72 Respiratory Rate 13 16 Blood Pressure 104/60 Pulse Oximetry 100 100 Oxygen Delivery Method Mechanical Ventilation 11/15/22 14:10 11/15/22 15:00 11/15/22 15:00 Temperature Pulse Rate 72 72 Respiratory Rate 15 16 Blood Pressure 122/69 Pulse Oximetry 100 100 Oxygen Delivery Method 11/15/22 15:10 11/15/22 16:00 11/15/22 16:00 Temperature Pulse Rate 93 H 72 Respiratory Rate 21 16 Blood Pressure 118/68 Pulse Oximetry 100 100 Oxygen Delivery Method 11/15/22 16:10 Temperature Pulse Rate 71 Respiratory Rate 16 Blood Pressure Pulse Oximetry 100 Oxygen Delivery Method Fraction of Inspired Oxygen 0.30 Oxygen Delivery Method Mechanical Ventilation Oxygen Flow Rate 3 Narrative Exam Narrative: GEN:? Ill-appearing middle-aged male, intubated, lightly sedated follows simple commands. HEENT:NC, Face symmetric CHEST: Respiratory excursions symmetric, coarse but CTAB CV: RRR, no M/R/G ABD: Soft, NT/ND, BT present in all 4 quadrants, no organomegaly or masses EXTR: warm, well perfused, no C/C/E SKIN: warm and dry, no rash NEURO:? Intubated, lightly sedated, follows simple commands. Objective Labs Result Diagrams: 11/15/22 03:30 11/15/22 03:30 Labs: Laboratory Results - last 24 hr 11/14/22 11/15/22 11/15/22 17:31 03:30 03:30 WBC 6.6 RBC 3.04 L Hgb 8.9 L Hct 26.4 L MCV 86.8 MCH 29.3 MCHC 33.8 RDW 15.7 H Plt Count 471 H Neut % (Auto) 83.1 H Lymph % (Auto) 11.9 L [place] % (Auto) 4.1 Eos % (Auto) 0.2 L Baso % (Auto) 0.7 Neut # (Auto) 5500 Lymph # (Auto) 800 L [place] # (Auto) 300 Eos # (Auto) 0 Baso # (Auto) 0 Sodium 142 Potassium 3.5 Chloride 108 H Carbon Dioxide 27 BUN 26 H Creatinine 0.77 Estimated GFR > 60 BUN/Creatinine Ratio 33.8 H Glucose 140 H Calcium 8.9 Magnesium 2.0 Total Bilirubin 0.3 AST 37 ALT 32 Alkaline Phosphatase 86 Troponin I 0.031 Total Protein 7.2 Albumin 3.3 L Globulin 3.9 Albumin/Globulin Ratio 0.8 L PFSH Medical History (Updated 11/11/22 @ 10:54 by Corey Masters MD) Acid reflux Alcohol abuse Ankle pain Ankylosing spondylitis (1985) Ankylosing spondylitis Chronic back pain Foot pain Fracture cervical vertebra-closed GERD (gastroesophageal reflux disease) Hypertension Hypertension Muscle pain Tobacco use disorder, moderate, in early remission Surgical History History of open reduction and internal fixation (ORIF) procedure (2005) History of tonsillectomy Status post colonoscopy (2012) Status post incision and drainage Family History Father No problems noted. Mother Cancer Other Alcoholism Colorectal cancer Social History Smoking Status: Current every day smoker Assessment & Plan Assessment & Plan narrative: 1. Acute hypoxic respiratory failure secondary to bacterial pneumonia He remains intubated/mechanically ventilated, he partially self - extubated morning of 11/04, but required reintubation on?evening of 11/04. Continue ventilator support.? He has failed several trials of ventilator weaning. The Zosyn and vancomycin for pneumonia initally was stopped 11/10 after completing therapy but rising wbc again a few days after antibiotics stopped with repeat CXR showing a LLL infiltrate so restarted on 11/13. As noted, IV furosemide was held due to hypotension. - trach/peg performed on 11/15. On 11/15 AM he was tolerating a breathing trial, but given weakness, lack of sufficient cough, high likelihood of reintubation proceeded with trach and peg before attempting to extubate. 2. Bilateral bacterial pneumonia [place] to be superinfection in the setting of influenza A.?Completed antibiotic therapies on 11/10 but another possible pneumonia 11/13 restarted on zosyn as noted above. 3. Influenza A Positive test on October 30.? At this point, influenza has resolved.? 4. Alcohol dependence with withdrawal Patient is presently on a Precedex drip.? He remains on Librium as well, folic acid, and multivitamin. Continue to wean from librium, will reduce to 25 mg BID via tube, taper to end tomorrow PM. 5. Heroin dependence Continuing supportive care. 6. septic shock with acute end-organ failure patient presented with pneumonia, lactic acidosis, leukocytosis, tachycardia, and hypoxia.? Symptoms and signs of sepsis have overall improved.?Initially was felt his ongoing hypotension was likely secondary to sedation. However he then developed worsening pressor requirements as noted above. Antibiotics were restarted, with repeat cultures drawn. CXR did show a LLL pneumonia. UA was unremarkable. Stress dose steroids added PM of 11/13, vasopression added 11/14 and levophed was slightly reduced. Remains on both pressors still today. 7. Acute metabolic encephalopathy Likely multifactorial from infection, sepsis, alcohol withdrawal. Continues to slowly improve. 8. Essential hypertension On metoprolol on an outpatient basis.? This has been held in the setting of ongoing difficulties with hypotension and need for pressors. 9. Protein calorie malnutrition Remains on tube feed Glucerna per OGT. 10. Normocytic anemia Hemoglobin was 10.8 on admission.? Currently stable at 9.6. 11. Thrombocytosis Platelets are 689.? Likely reactive in nature. Code status Full Prophylaxis Lovenox Disposition ICU. LTAC does not accepts patient's insurance, but care management working on other cryptography teacher options. He may have more options if he is able to be weaned from his ventilator. I spent 35 minutes providing critical care management this patient. This excludes time spent in performing separately billed procedures. Time Spent With Patient Critical Care time: I spent a total of [] minutes of critical care time on this patient's care today; this time is exclusive of procedural time. Quality VTE Deep Vein Thrombosis/Pulmonary Embolism Present on Admission: No
--- NOTE | 2022-11-15 22:05 | PC.NURSE ---
Addendum entered by Gege Parish R.N. 11/16/22 06:17: patient remains restrained X 4, attempting to bite RT, [place] notified and new orders noted. Addendum entered by Gege Parish R.N. 11/16/22 05:51: Pt. becoming very agitated again, attempting to kick RT again, legs restrained, Dr. George and informed of status, new orders noted, awaiting first dose of trazadone. Pt. constantly monitored due to restraintsz Addendum entered by Gege Parish R.N. 11/16/22 05:13: Patient becoming very agitated and attempting to get out of bed. reminded that he is restrained and cannot go home. No clothes and it is snowing outside. Attempting to kick RT and RN, and informed of the consequences of kicking at staff. Mouthing multiple words some making sense some not. Asking for everything to be taken off so he can go home. Original Note: Patient dangled at bedside and then was able to stand for 1-2 seconds bearing moderate weight. becoming very tired very quickly and helped bck to bed. turned to lt. side and almost immediately falling asleep.
[2022-11-15] MEDS: ACETAMINOPHEN SUSP 650 MG/20.3 ML UDC TUBE (23:08)
[2022-11-16] VITALS (94 sets, daily range): BP systolic 79–129; BP diastolic 50–76; PULSE 75–119; RESP 1–36; TEMP 36.6–36.9; O2SAT 96–100
[2022-11-16] MEDS: VASOPRESSIN 40 UNIT in SODIUM CHLORIDE 0.9% 100 ML 6 UNIT IV (02:13)
[2022-11-16 04:15] LABS: Add Manual Diff / Slide Review NO; Basophils Absolute Auto 0 /uL (0-100); Basophils Percent Auto 0.3 % (0-2); Eosinophils Absolute Auto 0 /uL (0-450); Eosinophils Percent Auto 0.1 % (2-4); Hematocrit 22.7 % (41-53); Hemoglobin 7.5 g/dL (13.5-17.5); Lymphocytes Absolute Auto 700 /uL (1100-4500); Lymphocytes Percent Auto 8.2 % (25-40); Mean Corpuscular HGB Conc 33.1 % (30-36); Mean Corpuscular Hemoglobin 29.1 PG (26-34); Mean Corpuscular Volume 87.9 fL (80-100); Monocytes Absolute Auto 400 /uL (0-900); Monocytes Percent Auto 5.1 % (3-14); Neutrophils Absolute Auto 7600 /uL (1500-7000); Neutrophils Percent Auto 86.3 % (50-75); Platelet Count 359 X10^3/uL (150-400); Red Blood Cell Count 2.58 X10^6/uL (4.5-5.9); Red Cell Distribution Width 15.9 % (11.6-14.8); White Blood Cell Count 8.8 X10^3/uL (4.5-11.0)
[2022-11-16 04:19] LABS: Alanine Aminotransferase 41 IU/L (<50); Albumin Globulin Ratio 0.8 (1.0-2.8); Alkaline Phosphatase 101 U/L (38-126); Aspartate Aminotransferase 50 IU/L (17-59); BUN Creatinine Ratio 38.7 (6-22); Bilirubin Total 0.4 mg/dL (0.2-1.3); Blood Urea Nitrogen 24 mg/dL (9-20); Calcium 8.6 mg/dL (8.4-10.2); Carbon Dioxide 26 mmol/L (22-32); Chloride 110 mmol/L (98-107); Estimated Glomerular Filt Rate > 60 mL/min (>60); Globulin 3.7 g/dL (1.7-4.1); Glucose 125 mg/dL (80-110); HEMOLYSIS < 15 (0-50); Magnesium 1.9 mg/dL (1.6-2.3); Potassium 3.4 mmol/L (3.4-5.1); Sodium 142 mmol/L (137-145); Total Protein 6.7 g/dL (6.3-8.2)
[2022-11-16] MEDS: PIPERACILLIN/TAZO 3.375 GM in SODIUM CHLORIDE 0.9% 100 ML IV ×3 (04:39→20:20)
[2022-11-16] MEDS: HYDROCORTISONE 100 MG/2 ML VIAL 50 MG IV (05:17)
[2022-11-16] MEDS: TRAZODONE 50 MG TABLET PO (05:57)
[2022-11-16] MEDS: fentaNYL 1,000 MCG in DEXTROSE 5% IN WATER 230 ML 9 MCG IV (06:08)
[2022-11-16] MEDS: HALOPERIDOL 5 MG/ML VIAL IV (06:46)
[2022-11-16] MEDS: POTASSIUM CHLORIDE 20 MEQ/15 ML UDC 40 MEQ TUBE (08:57)
[2022-11-16] MEDS: FOLIC ACID 1 MG TABLET PO (08:57)
[2022-11-16] MEDS: MULTIVITAMIN 1 TABLET 1 TAB PO (08:57)
[2022-11-16] MEDS: chlordiazePOXIDE 25 MG CAPSULE TUBE (08:57)
[2022-11-16] MEDS: GABAPENTIN 300 MG CAPSULE TUBE ×3 (08:57→20:19)
[2022-11-16] MEDS: ENOXAPARIN 40 MG/0.4 ML SYRINGE SUBCUT (08:58)
[2022-11-16] MEDS: NICOTINE 7 MG PATCH TOP (09:52)
[2022-11-16] MEDS: PANTOPRAZOLE 40 MG **PACKET PO (10:00)
--- NOTE | 2022-11-16 10:36 | P.TELICUPN_ITS ---
Subjective Subjective IF CAMERA ACTIVATED, patient seen via real-time interactive audiovisual communication: Camera activated Date Patient Seen: 11/16/22 Consent obtained for tele-ict analyst care: Yes Patient Location: ICU Provider location (State): [place] Other participants/roles: Bedside RN Interval history: Agitated overnight, attempting to kick staffs and placed on 4 points restraints. Added seroquel 50 mg BID. Off precedex and levophed. Current Medications Current Medications Medications: Home Medications indomethacin 50 mg capsule 50 mg PO TIDP PRN pain, moderate #90 caps 10/13/18 [Rx Confirmed 11/13/22] amitriptyline 25 mg tablet 25 mg PO BEDTIME #30 tabs 01/07/19 [Rx Confirmed 11/13/22] cyclobenzaprine 10 mg tablet 10 mg PO TIDP #90 tabs 11/19/19 [Rx Confirmed 11/13/22] gabapentin 300 mg capsule (Neurontin) 300 mg PO Q8H #90 caps 11/19/19 [Rx Confirmed 11/13/22] metoprolol succinate 50 mg tablet,extended release 24 hr (Toprol XL) 50 mg PO BID #60 tabs 11/19/19 [Rx Confirmed 11/13/22] omeprazole 20 mg capsule,delayed release 20 mg PO QDAY #30 caps 11/19/19 [Rx Confirmed 11/13/22] Visit Medications (administered) Generic Name Dose Route Start Last Admin Trade Name Freq PRN Reason Stop Dose Admin Acetaminophen 650 mg 11/11/22 07:55 11/15/22 23:08 Acetaminophen Susp 650 Mg/20.3 Ml Udc TUBE 650 mg Q6H PRN Administration Fever/Mild Pain (1-3) Chlordiazepoxide HCl 25 mg 11/14/22 21:00 11/16/22 08:57 Chlordiazepoxide 25 Mg Capsule TUBE 11/16/22 20:59 25 mg BID JYOTI Administration Enoxaparin Sodium 40 mg 11/06/22 12:00 11/16/22 08:58 Enoxaparin 40 Mg/0.4 Ml Syringe SUBCUT 40 mg DAILY JYOTI Administration Folic Acid 1 mg 10/31/22 09:00 11/16/22 08:57 Folic Acid 1 Mg Tablet PO 1 mg DAILY JYOTI Administration Gabapentin 300 mg 11/06/22 09:45 11/16/22 08:57 Gabapentin 300 Mg Capsule TUBE 300 mg TID JYOTI Administration Hydrocortisone 50 mg 11/14/22 07:40 11/16/22 05:17 Hydrocortisone 100 Mg/2 Ml Vial IV 50 mg Q6HR JYOTI Administration Sodium Chloride 500 mls @ 1,000 mls/hr 10/31/22 14:03 11/14/22 08:00 Normal Saline 0.9% IV Infused BOLUS PRN Infusion Fluid replacement dexmedeTOMIDine in 0.9 % NaCL 400 mcg in 100 mls @ 2.875 mls/hr 11/06/22 10:15 11/15/22 23:09 Precedex IV 0 mcg/kg/hr TITRATE JYOTI 0 mls/hr Titration Protocol 0.2 MCG/KG/HR Piperacillin Sod/Tazobactam 100 mls @ 25 mls/hr 11/13/22 13:15 11/16/22 09:14 Sod 3.375 gm/ Sodium Chloride IV 11/23/22 09:14 Infused Q8H JYOTI Infusion Vasopressin 40 unit/ Sodium 102 mls @ 6 mls/hr 11/14/22 03:30 11/16/22 09:15 Chloride IV 7.5 mls/hr CONT JYOTI Infusion Fentanyl 1,000 mcg/ Dextrose 250 mls @ 9.8 mls/hr 11/14/22 12:15 11/16/22 09:19 IV 1 mcg/kg/hr TITRATE JYOTI 14 mls/hr Titration Protocol 0.7 MCG/KG/HR NOREPINEPHRINE BITARTRATE/D5W 4 mg in 250 mls @ 30 mls/hr 11/15/22 13:45 11/15/22 15:51 Levophed IV Not Given TITRATE JYOTI Protocol 8 MCG/MIN Lorazepam 0 mg 10/31/22 00:42 11/04/22 14:03 Lorazepam 2 Mg/Ml Inj IV 2 mg CIWAPRN PRN Administration Alcohol Withdrawal/n/V Protocol Lorazepam 1 mg 11/04/22 09:37 11/15/22 06:23 Lorazepam 2 Mg/Ml Inj IV 1 mg Q2HR PRN Administration Anxiety Morphine Sulfate 1 mg 11/04/22 09:38 11/14/22 11:49 Morphine 2 Mg/Ml Inj IV 1 mg Q2HR PRN Administration Pain, Moderate (4-6) Multivitamins 1 tab 10/31/22 09:00 11/16/22 08:57 Multivitamin 1 Tablet PO 1 tab DAILY JYOTI Administration Nicotine 7 mg 10/31/22 09:00 11/16/22 09:52 Nicotine 7 Mg Patch TOP 7 mg DAILY JYOTI Administration Ondansetron HCl 4 mg 10/31/22 01:07 11/12/22 23:15 Ondansetron 4 Mg/2 Ml Inj IV 4 mg Q4HR PRN Administration Nausea And Vomiting Pantoprazole Sodium 40 mg 11/13/22 09:00 11/16/22 10:00 Pantoprazole 40 Mg Packet PO 40 mg DAILY JYOTI Administration Trazodone HCl 50 mg 11/16/22 06:00 11/16/22 05:57 Trazodone 50 Mg Tablet PO 50 mg BID JYOTI Administration Objective Ventilator Parameters: Ventilator Settings FiO2 25 CPAP Pressure Amount 5 RT Vent Frequency 16 Ventilator Tidal Volume 460 Exhaled Vt/kg IBW 7 Positive End Expiratory 5 Pressure Ventilator Pressure Support 5 Inspiratory Phase Time 0.80 I:E Ratio 1:3.7 Patient Position HOB >= 30 degrees Labs Result Diagrams: 11/16/22 04:00 11/16/22 04:00 Labs: Laboratory Results - last 24 hr 11/16/22 11/16/22 04:00 04:00 WBC 8.8 RBC 2.58 L Hgb 7.5 L Hct 22.7 L MCV 87.9 MCH 29.1 MCHC 33.1 RDW 15.9 H Plt Count 359 Neut % (Auto) 86.3 H Lymph % (Auto) 8.2 L [place] % (Auto) 5.1 Eos % (Auto) 0.1 L Baso % (Auto) 0.3 Neut # (Auto) 7600 H Lymph # (Auto) 700 L [place] # (Auto) 400 Eos # (Auto) 0 Baso # (Auto) 0 Sodium 142 Potassium 3.4 Chloride 110 H Carbon Dioxide 26 BUN 24 H Creatinine 0.62 L Estimated GFR > 60 BUN/Creatinine Ratio 38.7 H Glucose 125 H Calcium 8.6 Magnesium 1.9 Total Bilirubin 0.4 AST 50 ALT 41 Alkaline Phosphatase 101 Total Protein 6.7 Albumin 3.0 L Globulin 3.7 Albumin/Globulin Ratio 0.8 L Exam Vital Signs (past 8 hours): - 11/16/22 02:40 11/16/22 02:50 11/16/22 03:00 Temperature Pulse Rate 90 89 Respiratory Rate 30 H 24 Blood Pressure 108/51 L Pulse Oximetry 98 97 Oxygen Delivery Method Oxygen Flow Rate 11/16/22 03:00 11/16/22 03:10 11/16/22 03:20 Temperature Pulse Rate 87 80 92 H Respiratory Rate 17 16 22 Blood Pressure Pulse Oximetry 97 97 98 Oxygen Delivery Method Oxygen Flow Rate 11/16/22 04:25 11/16/22 03:30 11/16/22 03:30 Temperature Pulse Rate 89 Respiratory Rate 28 H Blood Pressure 89/64 L Pulse Oximetry 98 Oxygen Delivery Method Mechanical Ventilation Oxygen Flow Rate 11/16/22 03:40 11/16/22 03:50 11/16/22 04:00 Temperature Pulse Rate 83 92 H Respiratory Rate 16 16 Blood Pressure 97/53 L Pulse Oximetry 98 99 Oxygen Delivery Method Oxygen Flow Rate 11/16/22 04:00 11/16/22 04:10 11/16/22 04:20 Temperature Pulse Rate 81 84 83 Respiratory Rate 16 12 16 Blood Pressure Pulse Oximetry 99 99 98 Oxygen Delivery Method Oxygen Flow Rate 11/16/22 04:30 11/16/22 04:30 11/16/22 04:40 Temperature Pulse Rate 90 99 H Respiratory Rate 11 L 28 H Blood Pressure 82/53 L Pulse Oximetry 96 100 Oxygen Delivery Method Oxygen Flow Rate 11/16/22 04:50 11/16/22 05:00 11/16/22 05:01 Temperature Pulse Rate 119 H 102 H 103 H Respiratory Rate 36 H 24 27 H Blood Pressure Pulse Oximetry 99 99 100 Oxygen Delivery Method Oxygen Flow Rate 11/16/22 05:01 11/16/22 05:10 11/16/22 05:20 Temperature Pulse Rate 90 93 H Respiratory Rate 2 L 20 Blood Pressure 113/59 L Pulse Oximetry 97 97 Oxygen Delivery Method Oxygen Flow Rate 11/16/22 05:30 11/16/22 05:30 11/16/22 05:40 Temperature Pulse Rate 92 H 98 H Respiratory Rate 20 24 Blood Pressure 101/58 L Pulse Oximetry 98 100 Oxygen Delivery Method Oxygen Flow Rate 11/16/22 05:50 11/16/22 06:00 11/16/22 06:01 Temperature Pulse Rate 99 H 118 H Respiratory Rate 19 1 L Blood Pressure 129/73 Pulse Oximetry 99 98 Oxygen Delivery Method Oxygen Flow Rate 11/16/22 06:01 11/16/22 06:10 11/16/22 06:20 Temperature Pulse Rate 104 H 114 H 93 H Respiratory Rate 1 L 33 H Blood Pressure Pulse Oximetry 98 99 98 Oxygen Delivery Method Oxygen Flow Rate 11/16/22 06:30 11/16/22 06:30 11/16/22 06:40 Temperature Pulse Rate 91 H 92 H Respiratory Rate Blood Pressure 94/60 Pulse Oximetry 98 99 Oxygen Delivery Method Oxygen Flow Rate 11/16/22 06:50 11/16/22 09:00 11/16/22 10:00 Temperature 98.5 F Pulse Rate 101 H 92 H Respiratory Rate 18 16 Blood Pressure 108/61 Pulse Oximetry 98 99 Oxygen Delivery Method Mechanical Ventilation Oxygen Flow Rate 3 Fraction of Inspired Oxygen 0.30 Oxygen Delivery Method Mechanical Ventilation Oxygen Flow Rate 3 Narrative Exam Narrative: On 4 points restraints and NAD. Quality TeleICU VTE Deep Vein Thrombosis/Pulmonary Embolism Present on Admission: No Assessment & Plan Assessment & Plan narrative: NEURO: # Acute encephalopathy, previous ETOH withdrawal that has improved -- Possible related to ICU delirium -- Added seroquel 50 mg BID -- Minimize ativan -- Cont frequent reorientation -- Seek early mobility -- Daily CAM ICU RESP: # Chronic hypoxemic respiratory failure -- s/p trach and peg -- Start PS trial (15/5 X 4 hours) daily -- HOB elevation -- Aspiration precaution -- PT/OT consult -- Goal SpO2 > 88% -- Daily SAT and SBT CVS: # Shock -- Resolved -- MAP goal > 65 GI -- TF restarted post peg tube placement ID: # Concern for sepsis, pneumonia, influenza -- Repeat cx negative to date -- On zosyn X 7 days HEME: # Anemia -- Secondary to critical illness. No e/o bleed at this time -- Daily CBC -- Goal Hb > 7 ENDO: -- BS < 180 Pending insurance authorization for LTACH placement. D/w RN. Time Spent With Patient Critical Care time: I spent a total of [] minutes of critical care time on this patient's care today; this time is exclusive of procedural time.
[2022-11-16] MEDS: propofoL 1,000 MG/100 ML VIAL 1.677 MG IV (11:30)
[2022-11-16] MEDS: QUETIAPINE 25 MG TABLET 50 MG PO ×2 (11:30→20:19)
[2022-11-16] MEDS: VASOPRESSIN 40 UNIT in SODIUM CHLORIDE 0.9% 100 ML 7.5 UNIT IV (11:36)
[2022-11-16] MEDS: OXYCODONE IR 5 MG TABLET TUBE ×3 (12:23→20:19)
--- NOTE | 2022-11-16 12:49 | DIET.PN1 ---
Dietary Progress Note Assessment: Pt tolerating TF well. Continue at goal rate. K 3.4, glucose 125, Mg 1.9, no new phos (last from 11/05 of 4.2H) Ht: 170.18 cm Wt: 55.9 kg BMI: 23.0 UBW: Last BM: 11/16/22 (11/16/22 12:30) MNA: Inder Score: 13 Diet: 11/15/22 Dinner Tube Feeding Diet Diet Modifications: TF Supplement type: Glucerna 1.5 leroy TF mode of delivery: Continuous Starting flow rate mL/hr: 10 Flow rate goal mL/hr: 68 Titration Schedule to reach Goal Rate: per dietary Max total daily volume in mL: 130 Free fluid: 100 Free Water Frequency: Q12H Comment: run from 0500 till 2100 then none for next 8 hrs Nutrition Type of Feeding Tube PEG 11/15/22 13:05 Labs: RBC 2.58 X10^6/uL (4.5-5.9) L 11/16/22 04:00 Hgb 7.5 g/dL (13.5-17.5) L 11/16/22 04:00 Hct 22.7 % (41-53) L 11/16/22 04:00 Creatinine 0.62 mg/dL (0.66-1.25) L 11/16/22 04:00 Hemoglobin A1c 5.8 % (4.0-6.0) 10/30/22 16:10 Lactate 0.9 mmol/L (0.7-2.1) 11/13/22 20:15 Ferritin 393 ng/mL (18-464) 11/04/22 04:30 NT-Pro-B Natriuret Pep 7160 pg/mL (<125) H 11/04/22 23:45 Monitoring/Evaluations: will continue to monitor Electronically Signed by: Erica Almeida 11/16/22 12:49 Clinical Dietitian [address] [id number]
[2022-11-16] MEDS: VASOPRESSIN 40 UNIT in SODIUM CHLORIDE 0.9% 100 ML 12 UNIT IV ×2 (14:50→22:55)
--- NOTE | 2022-11-16 16:17 | PC.NURSE ---
Dayshift note: Pt initially in 4 point restraints-violent due to combativeness during slot shift supervisor. Contacted eICU Dr George and changed pt medications, placing him back on Propofol, sedated to RASS of -2, able to open eyes to his name and to voice, can follow commands. On vent settings FiO2 25%, TV 390, RR 16, and PEEP 5. SpO2 upper 90s all shift. Requires oral and trach suctioning with turns, clear and thin secretions. BP 80-90s/50s with MAP decreasing to 60-65, MD aware, titrating vasopressin for MAP of 65. Tube feeding through PEG tube was run during the night (instead of [id number]) per dietary leave off until 1700 and run through the night until 0900. Soft bilateral wrist restraints in place as pt reaches for all lines and trach tube. Turning every 2 hours to offload pressure to coccyx and sacrum, dressings are C/D/I.
--- NOTE | 2022-11-16 17:17 | P.PN_ITS ---
Subjective Subjective Date Patient Seen: 11/16/22 Time Patient Seen: 08:00 Interval history: Overnight he was combative. He is more calm with increased amount of sedation. He remains on the vent. Exam Vital Signs (past 8 hours): - 11/16/22 10:00 11/16/22 12:29 11/16/22 13:00 Temperature 98.5 F 98.5 F Pulse Rate 92 H Respiratory Rate 16 Blood Pressure 108/61 Pulse Oximetry 99 Oxygen Delivery Method Mechanical Ventilation Oxygen Flow Rate 3 Fraction of Inspired Oxygen 0.30 Oxygen Delivery Method Mechanical Ventilation Oxygen Flow Rate 3 Narrative Exam Narrative: GEN:?chronically ill appearing, confused, trach in place on ventilatr PULM: coarse breeath sounds bilaterally CV: regular rate and rhythm, no murmurs ABD: Soft, nontender, nondistended Objective Labs Result Diagrams: 11/16/22 04:00 11/16/22 04:00 Labs: Laboratory Results - last 24 hr 11/16/22 11/16/22 11/16/22 04:00 04:00 11:47 WBC 8.8 RBC 2.58 L Hgb 7.5 L Hct 22.7 L MCV 87.9 MCH 29.1 MCHC 33.1 RDW 15.9 H Plt Count 359 Neut % (Auto) 86.3 H Lymph % (Auto) 8.2 L [place] % (Auto) 5.1 Eos % (Auto) 0.1 L Baso % (Auto) 0.3 Neut # (Auto) 7600 H Lymph # (Auto) 700 L [place] # (Auto) 400 Eos # (Auto) 0 Baso # (Auto) 0 Sodium 142 Potassium 3.4 Chloride 110 H Carbon Dioxide 26 BUN 24 H Creatinine 0.62 L Estimated GFR > 60 BUN/Creatinine Ratio 38.7 H Glucose 125 H Calcium 8.6 Magnesium 1.9 Total Bilirubin 0.4 AST 50 ALT 41 Alkaline Phosphatase 101 Total Protein 6.7 Albumin 3.0 L Globulin 3.7 Albumin/Globulin Ratio 0.8 L Nasal Screen MRSA (PCR) Positive for mrsa [facility] Medical History (Updated 11/11/22 @ 10:54 by Corey Masters MD) Acid reflux Alcohol abuse Ankle pain Ankylosing spondylitis (1985) Ankylosing spondylitis Chronic back pain Foot pain Fracture cervical vertebra-closed GERD (gastroesophageal reflux disease) Hypertension Hypertension Muscle pain Tobacco use disorder, moderate, in early remission Surgical History History of open reduction and internal fixation (ORIF) procedure (2005) History of tonsillectomy Status post colonoscopy (2012) Status post incision and drainage Family History Father No problems noted. Mother Cancer Other Alcoholism Colorectal cancer Social History Smoking Status: Current every day smoker Assessment & Plan Assessment & Plan narrative: 1. Acute hypoxic respiratory failure secondary to bacterial pneumonia -he partially self - extubated morning of 11/04, but required reintubation on?evening of 11/04. Failed several trials of ventilator weaning. The Zosyn and vancomycin for pneumonia initally was stopped 11/10 after completing therapy but rising wbc again a few days after antibiotics stopped with repeat CXR showing a LLL infiltrate so restarted on 11/13. As noted, IV furosemide was held due to hypotension. - trach/peg performed on 11/15 -wean vent as able 2. Bilateral bacterial pneumonia [place] to be superinfection in the setting of influenza A.?Completed antibiotic therapies on 11/10 but another possible pneumonia 11/13 restarted on zosyn as noted above. 3. Influenza A Positive test on October 30.? At this point, influenza has resolved.? 4. Alcohol dependence with withdrawal -resolved from withdrawal 5. Heroin dependence Continuing supportive care. 6. septic shock with acute end-organ failure patient presented with pneumonia, lactic acidosis, leukocytosis, tachycardia, and hypoxia.? Symptoms and signs of sepsis have overall improved.?Initially was felt his ongoing hypotension was likely secondary to sedation. However he then developed worsening pressor requirements as noted above. Antibiotics were restarted, with repeat cultures drawn. CXR did show a LLL pneumonia. UA was unremarkable. Stress dose steroids added PM of 11/13, vasopression added 11/14 and levophed was slightly reduced. Remains on both pressors still today. 7. Acute metabolic encephalopathy Likely multifactorial from infection, sepsis, alcohol withdrawal. Attempt to adjust sedatives and see if he improves 8. Essential hypertension On metoprolol on an outpatient basis.? This has been held in the setting of ongoing difficulties with hypotension and need for pressors. 9. Protein calorie malnutrition Remains on tube feed Glucerna per OGT. 10. Normocytic anemia Hemoglobin was 10.8 on admission.? Currently stable at 9.6. 11. Thrombocytosis Platelets are 689.? Likely reactive in nature. Time Spent With Patient Critical Care time: I spent a total of [] minutes of critical care time on this patient's care today; this time is exclusive of procedural time. Quality VTE Deep Vein Thrombosis/Pulmonary Embolism Present on Admission: No
[2022-11-16] MEDS: fentaNYL 1,000 MCG in DEXTROSE 5% IN WATER 230 ML 4.2 MCG IV (18:24)
--- NOTE | 2022-11-16 21:25 | PM.ICURNDS ---
- :: This patient was seen via real time interactive two-way audiovisual telecommunication. patietn trach to vent, synchronousm and seems somnolescent tonight remains on vasopressin, and hgb is trending down. will plan to sartt midodrine and give albumin bolus. will f/u AM cbc, goal hgb > 7
[2022-11-17] VITALS (93 sets, daily range): BP systolic 77–124; BP diastolic 46–82; PULSE 74–118; RESP 8–28; TEMP 36.3–36.4; O2SAT 89–100
[2022-11-17] MEDS: OXYCODONE IR 5 MG TABLET TUBE ×4 (01:53→20:49)
[2022-11-17] MEDS: PIPERACILLIN/TAZO 3.375 GM in SODIUM CHLORIDE 0.9% 100 ML IV ×3 (05:07→20:49)
[2022-11-17 05:42] LABS: Hematocrit 21.2 % (41-53); Hemoglobin 7.1 g/dL (13.5-17.5); Mean Corpuscular HGB Conc 33.5 % (30-36); Mean Corpuscular Hemoglobin 29.7 PG (26-34); Mean Corpuscular Volume 88.6 fL (80-100); Platelet Count 469 X10^3/uL (150-400); Red Blood Cell Count 2.39 X10^6/uL (4.5-5.9); Red Cell Distribution Width 16.8 % (11.6-14.8)
[2022-11-17 05:55] LABS: Alanine Aminotransferase 39 IU/L (<50); Albumin Globulin Ratio 0.9 (1.0-2.8); Alkaline Phosphatase 122 U/L (38-126); Aspartate Aminotransferase 39 IU/L (17-59); BUN Creatinine Ratio 32.8 (6-22); Bilirubin Total 0.3 mg/dL (0.2-1.3); Blood Urea Nitrogen 20 mg/dL (9-20); Carbon Dioxide 28 mmol/L (22-32); Chloride 107 mmol/L (98-107); Estimated Glomerular Filt Rate > 60 mL/min (>60); Globulin 3.4 g/dL (1.7-4.1); Glucose 107 mg/dL (80-110); HEMOLYSIS < 15 (0-50); Potassium 3.8 mmol/L (3.4-5.1); Sodium 142 mmol/L (137-145); Total Protein 6.4 g/dL (6.3-8.2)
[2022-11-17] MEDS: propofoL 1,000 MG/100 ML VIAL 15 MG IV (06:45)
[2022-11-17] MEDS: FOLIC ACID 1 MG TABLET PO (08:30)
[2022-11-17] MEDS: ENOXAPARIN 40 MG/0.4 ML SYRINGE SUBCUT (08:30)
[2022-11-17] MEDS: GABAPENTIN 300 MG CAPSULE TUBE ×3 (08:30→20:48)
[2022-11-17] MEDS: MULTIVITAMIN 1 TABLET 1 TAB PO (08:30)
[2022-11-17] MEDS: QUETIAPINE 25 MG TABLET 50 MG PO ×2 (08:30→10:50)
[2022-11-17] MEDS: PANTOPRAZOLE 40 MG **PACKET PO (08:32)
[2022-11-17] MEDS: NICOTINE 7 MG PATCH TOP (08:34)
--- NOTE | 2022-11-17 09:44 | P.TELICUPN_ITS ---
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 care: Yes Patient Location: ICU Provider location (State): [place] Other participants/roles: Bedside RN Current Medications Current Medications Medications: Home Medications indomethacin 50 mg capsule 50 mg PO TIDP PRN pain, moderate #90 caps 10/13/18 [Rx Confirmed 11/13/22] amitriptyline 25 mg tablet 25 mg PO BEDTIME #30 tabs 01/07/19 [Rx Confirmed 11/13/22] cyclobenzaprine 10 mg tablet 10 mg PO TIDP #90 tabs 11/19/19 [Rx Confirmed 11/13/22] gabapentin 300 mg capsule (Neurontin) 300 mg PO Q8H #90 caps 11/19/19 [Rx Confirmed 11/13/22] metoprolol succinate 50 mg tablet,extended release 24 hr (Toprol XL) 50 mg PO BID #60 tabs 11/19/19 [Rx Confirmed 11/13/22] omeprazole 20 mg capsule,delayed release 20 mg PO QDAY #30 caps 11/19/19 [Rx Confirmed 11/13/22] Visit Medications (administered) Generic Name Dose Route Start Last Admin Trade Name Freq PRN Reason Stop Dose Admin Acetaminophen 650 mg 11/11/22 07:55 11/15/22 23:08 Acetaminophen Susp 650 Mg/20.3 Ml Udc TUBE 650 mg Q6H PRN Administration Fever/Mild Pain (1-3) Enoxaparin Sodium 40 mg 11/06/22 12:00 11/17/22 08:30 Enoxaparin 40 Mg/0.4 Ml Syringe SUBCUT 40 mg DAILY JYOTI Administration Folic Acid 1 mg 10/31/22 09:00 11/17/22 08:30 Folic Acid 1 Mg Tablet PO 1 mg DAILY JYOTI Administration Gabapentin 300 mg 11/06/22 09:45 11/17/22 08:30 Gabapentin 300 Mg Capsule TUBE 300 mg TID JYOTI Administration Sodium Chloride 500 mls @ 1,000 mls/hr 10/31/22 14:03 11/14/22 08:00 Normal Saline 0.9% IV Infused BOLUS PRN Infusion Fluid replacement Piperacillin Sod/Tazobactam 100 mls @ 25 mls/hr 11/13/22 13:15 11/17/22 05:07 Sod 3.375 gm/ Sodium Chloride IV 11/23/22 09:14 25 mls/hr Q8H JYOTI Administration Fentanyl 1,000 mcg/ Dextrose 250 mls @ 9.8 mls/hr 11/14/22 12:15 11/16/22 18:24 IV 0.3 mcg/kg/hr TITRATE JYOTI 4.2 mls/hr Administration Protocol 0.7 MCG/KG/HR Propofol 1,000 mg in 100 mls @ 1.677 mls/hr 11/16/22 11:15 11/17/22 06:45 Propofol IV 44.72 mcg/kg/min TITRATE JYOTI 15 mls/hr Administration Protocol 5 MCG/KG/MIN Vasopressin 40 unit/ Sodium 102 mls @ 4.5 mls/hr 11/16/22 11:15 11/16/22 22:55 Chloride IV 12 mls/hr CONT JYOTI Administration Multivitamins 1 tab 10/31/22 09:00 11/17/22 08:30 Multivitamin 1 Tablet PO 1 tab DAILY JYOTI Administration Nicotine 7 mg 10/31/22 09:00 11/17/22 08:34 Nicotine 7 Mg Patch TOP 7 mg DAILY JYOTI Administration Ondansetron HCl 4 mg 10/31/22 01:07 11/12/22 23:15 Ondansetron 4 Mg/2 Ml Inj IV 4 mg Q4HR PRN Administration Nausea And Vomiting Oxycodone HCl 5 mg 11/16/22 13:00 11/17/22 08:30 Oxycodone Ir 5 Mg Tablet TUBE 5 mg Q4HR JYOTI Administration Pantoprazole Sodium 40 mg 11/13/22 09:00 11/17/22 08:32 Pantoprazole 40 Mg Packet PO 40 mg DAILY JYOTI Administration Quetiapine Fumarate 50 mg 11/16/22 21:00 11/17/22 08:30 Quetiapine 25 Mg Tablet PO 50 mg BID JYOTI Administration Objective Ventilator Parameters: Ventilator Settings FiO2 25 CPAP Pressure Amount 5 RT Vent Frequency 16 Ventilator Tidal Volume 390 Exhaled Vt/kg IBW 7 Positive End Expiratory 5 Pressure Ventilator Pressure Support 5 Inspiratory Phase Time 0.8 I:E Ratio 1:3.2 Patient Position HOB >= 30 degrees Labs Result Diagrams: 11/17/22 05:25 11/17/22 05:25 Labs: Laboratory Results - last 24 hr 11/16/22 11/17/22 11/17/22 11:47 05:25 05:25 WBC 8.0 RBC 2.39 L Hgb 7.1 L Hct 21.2 L MCV 88.6 MCH 29.7 MCHC 33.5 RDW 16.8 H Plt Count 469 H Sodium 142 Potassium 3.8 Chloride 107 Carbon Dioxide 28 BUN 20 Creatinine 0.61 L Estimated GFR > 60 BUN/Creatinine Ratio 32.8 H Glucose 107 Calcium 8.0 L Total Bilirubin 0.3 AST 39 ALT 39 Alkaline Phosphatase 122 Total Protein 6.4 Albumin 3.0 L Globulin 3.4 Albumin/Globulin Ratio 0.9 L Nasal Screen MRSA (PCR) Positive for mrsa H Blood Type Antibody Screen Crossmatch 11/17/22 07:39 WBC RBC Hgb Hct MCV MCH MCHC RDW Plt Count Sodium Potassium Chloride Carbon Dioxide BUN Creatinine Estimated GFR BUN/Creatinine Ratio Glucose Calcium Total Bilirubin AST ALT Alkaline Phosphatase Total Protein Albumin Globulin Albumin/Globulin Ratio Nasal Screen MRSA (PCR) Blood Type O Positive Antibody Screen Negative Crossmatch See Detail Exam Vital Signs (past 8 hours): - 11/17/22 02:00 11/17/22 02:00 11/17/22 02:10 Temperature Pulse Rate 99 H 99 H Respiratory Rate 25 H 8 L Blood Pressure 85/69 L Pulse Oximetry 99 99 Oxygen Delivery Method 11/17/22 03:00 11/17/22 03:00 11/17/22 03:10 Temperature Pulse Rate 93 H 96 H Respiratory Rate 19 19 Blood Pressure 93/51 L Pulse Oximetry 99 99 Oxygen Delivery Method 11/17/22 04:00 11/17/22 04:00 11/17/22 04:10 Temperature Pulse Rate 89 92 H Respiratory Rate 17 17 Blood Pressure 77/46 L Pulse Oximetry 97 99 Oxygen Delivery Method 11/17/22 05:00 11/17/22 05:00 11/17/22 05:10 Temperature 97.6 F Pulse Rate 97 H 98 H Respiratory Rate 17 19 Blood Pressure 92/51 L Pulse Oximetry 99 98 Oxygen Delivery Method 11/17/22 05:00 11/17/22 06:00 11/17/22 06:00 Temperature Pulse Rate 80 Respiratory Rate 18 Blood Pressure 83/46 L Pulse Oximetry 98 Oxygen Delivery Method Trach Collar Mechanical Ventilation 11/17/22 06:10 11/17/22 07:00 11/17/22 07:00 Temperature Pulse Rate 88 95 H Respiratory Rate 21 16 Blood Pressure 87/50 L Pulse Oximetry 100 98 Oxygen Delivery Method 11/17/22 07:10 11/17/22 07:20 11/17/22 07:30 Temperature Pulse Rate 89 94 H Respiratory Rate 17 17 Blood Pressure 96/55 L Pulse Oximetry 97 99 Oxygen Delivery Method 11/17/22 07:30 Temperature Pulse Rate 91 H Respiratory Rate 19 Blood Pressure Pulse Oximetry 99 Oxygen Delivery Method Fraction of Inspired Oxygen 0.30 Oxygen Delivery Method Trach Collar,Mechanical Ventilation Oxygen Flow Rate 3 Quality TeleICU VTE Deep Vein Thrombosis/Pulmonary Embolism Present on Admission: No Assessment & Plan Assessment & Plan narrative: NEURO: # Acute encephalopathy, previous ETOH withdrawal that has improved -- Possible related to ICU delirium and Wernicke encephalopathy -- Daily EKG to assess QTc -- Increase seroquel 100 mg BID -- On propofol gtt -- RASS goal -1 to 0 -- Avoid BZD -- Cont frequent reorientation -- Seek early mobility -- Daily CAM ICU RESP: # Chronic hypoxemic respiratory failure -- s/p trach and peg -- Start intermediate card tender weaning protocol -- PS trial (15/5 X 4 hours) daily when encephalopathy improves -- HOB elevation -- Aspiration precaution -- PT/OT and early mobility -- Goal SpO2 > 88% -- Daily SAT CVS: # Shock -- Secondary to sedatives and positive cx -- Cx negative to date -- On abx as below -- Added midodrine 10 mg TID -- MAP goal > 65 GI -- On TF at goal ID: # Concern for sepsis, pneumonia, influenza -- Repeat cx negative to date -- On zosyn X 7 days HEME: # Anemia -- Hb down to 7.1 -- Transfused 1 U PRBC -- No reported signs of overt bleed -- Daily CBC -- Goal Hb > 7 ENDO: -- BS < 180 D/w Dr. Robert and bedside RN Joanie. Time Spent With Patient Critical Care time: I spent a total of 34 minutes of critical care time on this patient's care tod ay; this time is exclusive of procedural time.
--- NOTE | 2022-11-17 09:49 | DI.RAD.S_ITS ---
PROCEDURE: XR CHEST 1V INDICATIONS: change in infiltrates? TECHNIQUE: One view of the chest was acquired. COMPARISON: [facility], CR, XR CHEST 1V, 11/13/2022, 9:56. FINDINGS: Surgical changes and devices: A tracheostomy tube has now been placed. There is a right-sided central line, with the tip not seen on this study. The previously seen right-sided central line has either been withdrawn or retracted. Extensive cervical thoracic postoperative hardware is seen. Lungs and pleura: There is mild blunting of the costophrenic angles, left worse than right. Minimal streaky opacities can be seen in both lung bases. No pneumothorax is seen. Mediastinum: Mediastinal contours appear normal. Heart size is normal. Bones and chest wall: No suspicious bony lesions. Overlying soft tissues appear unremarkable. IMPRESSION: Small bilateral pleural effusions are seen, with overlying atelectasis versus mild infiltrate. These appear slightly worse than on the prior examination. Interval placement of a tracheostomy tube. Interval exchange versus retraction of the right-sided central line. Dictated by: Jayme Ventura M.D. on 11/17/2022 at 9:41 Approved by: Jayme Ventura M.D. on 11/17/2022 at 9:43
[2022-11-17] MEDS: MIDODRINE HCL 5 MG TABLET 10 MG PO ×3 (10:50→20:47)
--- NOTE | 2022-11-17 11:07 | PC.NURSE ---
Dayshift notes: Pt remains on Propofol, sedated to RASS of -2, able to open eyes to his name and to voice, can follow commands. See emar fpr gtts infusing. On vent settings FiO2 25%, TV 390, RR 16, and PEEP 5. SpO2 upper 90s all shift. Requires oral and trach suctioning with turns, clear and thin secretions. BP 80-90s/50s with MAP decreasing to 60-65, titrating vasopressin for MAP of 65. Tube feeding through PEG tube was run during the night (instead of [id number]) per dietary leave off until 1700 and run through the night until 0900. Soft bilateral wrist restraints in place as pt reaches for all lines and trach tube. Turning every 2 hours to offload pressure to coccyx and sacrum, Allevyn dressings are C/D/I.
--- NOTE | 2022-11-17 14:21 | CM.DPNOTE ---
DCP Note According to Dr Robert; additional attempt at weaning off the vent this evening. Dr Jay wonders if family can attend a family conference Saturday or Saturday? ...Too see how patient looks real time and discuss goals of care- Is this what patient would want? CM team can plan to assist with this; day after [place] likely more realistic for family JW
--- NOTE | 2022-11-17 18:32 | P.PN_ITS ---
Subjective Subjective Date Patient Seen: 11/17/22 Time Patient Seen: 08:00 Interval history: He has remained sedated on propofol. Exam Vital Signs (past 8 hours): - 11/17/22 10:40 11/17/22 10:50 11/17/22 11:00 Pulse Rate 105 H 109 H Respiratory Rate 22 25 H Blood Pressure 113/66 Pulse Oximetry 98 98 Oxygen Delivery Method 11/17/22 11:00 11/17/22 11:10 11/17/22 11:20 Pulse Rate 111 H 109 H 104 H Respiratory Rate 24 24 20 Blood Pressure Pulse Oximetry 98 98 98 Oxygen Delivery Method 11/17/22 11:30 11/17/22 11:30 11/17/22 11:40 Pulse Rate 101 H 102 H Respiratory Rate 20 21 Blood Pressure 90/53 L Pulse Oximetry 97 98 Oxygen Delivery Method 11/17/22 11:50 11/17/22 12:00 11/17/22 12:00 Pulse Rate 100 H 93 H Respiratory Rate 20 20 Blood Pressure 95/58 L Pulse Oximetry 98 98 Oxygen Delivery Method 11/17/22 12:10 11/17/22 12:20 11/17/22 12:30 Pulse Rate 87 86 Respiratory Rate 20 19 Blood Pressure 90/54 L Pulse Oximetry 98 99 Oxygen Delivery Method 11/17/22 12:30 11/17/22 12:40 11/17/22 12:50 Pulse Rate 85 87 85 Respiratory Rate 21 19 19 Blood Pressure Pulse Oximetry 100 100 100 Oxygen Delivery Method 11/17/22 13:00 11/17/22 13:00 11/17/22 13:10 Pulse Rate 83 81 Respiratory Rate 17 18 Blood Pressure 98/58 L Pulse Oximetry 100 100 Oxygen Delivery Method 11/17/22 13:20 11/17/22 13:00 11/17/22 13:30 Pulse Rate 83 Respiratory Rate 19 Blood Pressure 93/61 Pulse Oximetry 99 Oxygen Delivery Method Trach Collar Mechanical Ventilation 11/17/22 13:30 11/17/22 13:40 11/17/22 13:50 Pulse Rate 80 82 83 Respiratory Rate 17 16 17 Blood Pressure Pulse Oximetry 99 99 99 Oxygen Delivery Method 11/17/22 14:00 11/17/22 14:00 11/17/22 14:10 Pulse Rate 83 82 Respiratory Rate 17 16 Blood Pressure 95/59 L Pulse Oximetry 99 98 Oxygen Delivery Method 11/17/22 14:20 11/17/22 14:30 11/17/22 14:30 Pulse Rate 83 82 Respiratory Rate 17 16 Blood Pressure 101/59 L Pulse Oximetry 99 98 Oxygen Delivery Method 11/17/22 14:40 11/17/22 14:50 11/17/22 15:00 Pulse Rate 80 83 Respiratory Rate 18 18 Blood Pressure 96/54 L Pulse Oximetry 100 100 Oxygen Delivery Method 11/17/22 15:00 11/17/22 15:10 11/17/22 15:20 Pulse Rate 84 83 84 Respiratory Rate 16 16 16 Blood Pressure Pulse Oximetry 100 99 98 Oxygen Delivery Method 11/17/22 15:30 11/17/22 15:30 11/17/22 15:40 Pulse Rate 83 83 Respiratory Rate 16 16 Blood Pressure 100/55 L Pulse Oximetry 98 98 Oxygen Delivery Method 11/17/22 15:50 11/17/22 16:00 11/17/22 16:00 Pulse Rate 82 81 Respiratory Rate 16 17 Blood Pressure 100/56 L Pulse Oximetry 98 98 Oxygen Delivery Method 11/17/22 16:10 11/17/22 16:20 11/17/22 16:30 Pulse Rate 81 80 Respiratory Rate 16 16 Blood Pressure 99/58 L Pulse Oximetry 98 98 Oxygen Delivery Method 11/17/22 16:30 11/17/22 16:40 11/17/22 16:50 Pulse Rate 79 76 79 Respiratory Rate 17 21 16 Blood Pressure Pulse Oximetry 98 98 99 Oxygen Delivery Method 11/17/22 17:00 Pulse Rate Respiratory Rate Blood Pressure Pulse Oximetry Oxygen Delivery Method Trach Collar Mechanical Ventilation Fraction of Inspired Oxygen 0.30 Oxygen Delivery Method Trach Collar,Mechanical Ventilation Oxygen Flow Rate 3 Narrative Exam Narrative: GEN:?chronically ill appearing, confused, trach in place on ventilatr PULM: coarse breeath sounds bilaterally CV: regular rate and rhythm, no murmurs ABD: Soft, nontender, nondistended Objective Labs Result Diagrams: 11/17/22 05:25 11/17/22 05:25 Labs: Laboratory Results - last 24 hr 11/17/22 11/17/22 11/17/22 05:25 05:25 07:39 WBC 8.0 RBC 2.39 L Hgb 7.1 L Hct 21.2 L MCV 88.6 MCH 29.7 MCHC 33.5 RDW 16.8 H Plt Count 469 H Sodium 142 Potassium 3.8 Chloride 107 Carbon Dioxide 28 BUN 20 Creatinine 0.61 L Estimated GFR > 60 BUN/Creatinine Ratio 32.8 H Glucose 107 Calcium 8.0 L Total Bilirubin 0.3 AST 39 ALT 39 Alkaline Phosphatase 122 Total Protein 6.4 Albumin 3.0 L Globulin 3.4 Albumin/Globulin Ratio 0.9 L Blood Type O Positive Antibody Screen Negative Crossmatch See Detail [facility] Medical History (Updated 11/11/22 @ 10:54 by Corey Masters MD) Acid reflux Alcohol abuse Ankle pain Ankylosing spondylitis (1985) Ankylosing spondylitis Chronic back pain Foot pain Fracture cervical vertebra-closed GERD (gastroesophageal reflux disease) Hypertension Hypertension Muscle pain Tobacco use disorder, moderate, in early remission Surgical History History of open reduction and internal fixation (ORIF) procedure (2005) History of tonsillectomy Status post colonoscopy (2012) Status post incision and drainage Family History Father No problems noted. Mother Cancer Other Alcoholism Colorectal cancer Social History Smoking Status: Current every day smoker Assessment & Plan Assessment & Plan narrative: 1. Acute hypoxic respiratory failure secondary to bacterial pneumonia -he partially self - extubated morning of 11/04, but required reintubation on?evening of 11/04. Failed several trials of ventilator weaning. The Zosyn and vancomycin for pneumonia initally was stopped 11/10 after completing therapy but rising wbc again a few days after antibiotics stopped with repeat CXR showing a LLL infiltrate so restarted on 11/13. As noted, IV furosemide was held due to hypotension. - trach/peg performed on 11/15 -wean vent as able 2. Bilateral bacterial pneumonia [place] to be superinfection in the setting of influenza A.?Completed antibiotic therapies on 11/10 but another possible pneumonia 11/13 restarted on zosyn as noted above. 3. Influenza A Positive test on October 30.? At this point, influenza has resolved.? 4. Alcohol dependence with withdrawal -resolved from withdrawal 5. Heroin dependence Continuing supportive care. 6. septic shock with acute end-organ failure patient presented with pneumonia, lactic acidosis, leukocytosis, tachycardia, and hypoxia.? Symptoms and signs of sepsis have overall improved.?Initially was felt his ongoing hypotension was likely secondary to sedation. However he then developed worsening pressor requirements as noted above. Antibiotics were restarted, with repeat cultures drawn. CXR did show a LLL pneumonia. UA was unremarkable. Stress dose steroids added PM of 11/13, vasopression added 11/14 and levophed was slightly reduced. Remains on both pressors still today. 7. Acute metabolic encephalopathy Likely multifactorial from infection, sepsis, alcohol withdrawal. Attempt to adjust sedatives and see if he improves. Today will increase seroquel with goal of weaning propofol. 8. Essential hypertension On metoprolol on an outpatient basis.? This has been held in the setting of ongoing difficulties with hypotension and need for pressors. 9. Protein calorie malnutrition Remains on tube feed Glucerna per OGT. 10. Normocytic anemia -decreased on 11/17 to 7.1, ordered 1U prbc -no evidence of bleeding, suspect secondary to illness Time Spent With Patient Critical Care time: I spent a total of [] minutes of critical care time on this patient's care today; this time is exclusive of procedural time. Quality VTE Deep Vein Thrombosis/Pulmonary Embolism Present on Admission: No
[2022-11-17] MEDS: propofoL 1,000 MG/100 ML VIAL 10 MG IV (18:54)
--- NOTE | 2022-11-17 20:38 | PM.ICURNDS ---
- Date Patient Seen: 11/17/22 Time Patient Seen: 20:38 :: This patient was seen via real time interactive two-way audiovisual telecommunication. Note: Failed SAT due to agitation. Increased seroquel to 100 mg BID. Currently on propofol 10 mcg and fentanyl 0.3 mcg/kg/hr. On vasopressin 0.06 units/min. Will continue titrating down sedation to seek RASS goal -1 to 0. Cont early mobility and daily PS trial as tolerated.
[2022-11-17] MEDS: QUETIAPINE 25 MG TABLET 100 MG PO (20:48)
[2022-11-17] MEDS: VASOPRESSIN 40 UNIT in SODIUM CHLORIDE 0.9% 100 ML 12 UNIT IV (21:02)
[2022-11-18] VITALS (80 sets, daily range): BP systolic 47–146; BP diastolic 26–82; PULSE 71–109; RESP 0–46; TEMP 36.8; O2SAT 79–98
[2022-11-18 04:35] LABS: Hematocrit 25.5 % (41-53); Hemoglobin 8.5 g/dL (13.5-17.5); Mean Corpuscular HGB Conc 33.3 % (30-36); Mean Corpuscular Hemoglobin 29.7 PG (26-34); Mean Corpuscular Volume 89.3 fL (80-100); Platelet Count 414 X10^3/uL (150-400); Red Blood Cell Count 2.86 X10^6/uL (4.5-5.9); Red Cell Distribution Width 16.7 % (11.6-14.8); White Blood Cell Count 7.4 X10^3/uL (4.5-11.0)
[2022-11-18 04:47] LABS: Alanine Aminotransferase 33 IU/L (<50); Albumin 2.8 g/dL (3.5-5.0); Albumin Globulin Ratio 0.8 (1.0-2.8); Alkaline Phosphatase 117 U/L (38-126); Aspartate Aminotransferase 31 IU/L (17-59); BUN Creatinine Ratio 27.8 (6-22); Bilirubin Total 0.3 mg/dL (0.2-1.3); Blood Urea Nitrogen 15 mg/dL (9-20); Calcium 8.3 mg/dL (8.4-10.2); Carbon Dioxide 29 mmol/L (22-32); Chloride 101 mmol/L (98-107); Estimated Glomerular Filt Rate > 60 mL/min (>60); Globulin 3.4 g/dL (1.7-4.1); Glucose 100 mg/dL (80-110); HEMOLYSIS < 15 (0-50); Potassium 3.4 mmol/L (3.4-5.1); Sodium 136 mmol/L (137-145); Total Protein 6.2 g/dL (6.3-8.2)
[2022-11-18] MEDS: PIPERACILLIN/TAZO 3.375 GM in SODIUM CHLORIDE 0.9% 100 ML IV ×3 (05:21→20:54)
[2022-11-18] MEDS: propofoL 1,000 MG/100 ML VIAL 7 MG IV (06:42)
[2022-11-18] MEDS: ENOXAPARIN 40 MG/0.4 ML SYRINGE SUBCUT (08:44)
[2022-11-18] MEDS: NICOTINE 7 MG PATCH TOP (08:44)
[2022-11-18] MEDS: QUETIAPINE 25 MG TABLET 100 MG PO ×2 (08:45→20:53)
[2022-11-18] MEDS: OXYCODONE IR 5 MG TABLET TUBE ×3 (08:45→20:53)
[2022-11-18] MEDS: FOLIC ACID 1 MG TABLET PO (08:45)
[2022-11-18] MEDS: MULTIVITAMIN 1 TABLET 1 TAB PO (08:45)
[2022-11-18] MEDS: MIDODRINE HCL 5 MG TABLET 10 MG PO ×3 (08:45→20:54)
[2022-11-18] MEDS: GABAPENTIN 300 MG CAPSULE TUBE ×3 (08:45→20:53)
[2022-11-18] MEDS: PANTOPRAZOLE 40 MG **PACKET PO (10:00)
[2022-11-18] MEDS: POTASSIUM CHLORIDE 20 MEQ/15 ML UDC 40 MEQ PO (10:03)
--- NOTE | 2022-11-18 10:11 | PM.PN.EICU ---
Subjective Subjective IF CAMERA ACTIVATED, patient seen via real-time interactive audiovisual communication: Camera activated Date Patient Seen: 11/18/22 Consent obtained for tele-documentation consultant care: Yes Patient Location: ICU Provider location (State): [place] Other participants/roles: RN Interval history: 61 y.o. male w/ chronic hypoxic respiratory failure/failure to wean; originally admitetd w/ influenza A and postulated superimposed bacterial pneumonia. Cultures (-). Completed a Zosyn course and is back on it due to an episode of increasing pressor requirements. Also w/ EtOH withdrawal. Current Medications Current Medications Medications: Home Medications indomethacin 50 mg capsule 50 mg PO TIDP PRN pain, moderate #90 caps 10/13/18 [Rx Confirmed 11/13/22] amitriptyline 25 mg tablet 25 mg PO BEDTIME #30 tabs 01/07/19 [Rx Confirmed 11/13/22] cyclobenzaprine 10 mg tablet 10 mg PO TIDP #90 tabs 11/19/19 [Rx Confirmed 11/13/22] gabapentin 300 mg capsule (Neurontin) 300 mg PO Q8H #90 caps 11/19/19 [Rx Confirmed 11/13/22] metoprolol succinate 50 mg tablet,extended release 24 hr (Toprol XL) 50 mg PO BID #60 tabs 11/19/19 [Rx Confirmed 11/13/22] omeprazole 20 mg capsule,delayed release 20 mg PO QDAY #30 caps 11/19/19 [Rx Confirmed 11/13/22] Visit Medications (administered) Generic Name Dose Route Start Last Admin Trade Name Freq PRN Reason Stop Dose Admin Acetaminophen 650 mg 11/11/22 07:55 11/15/22 23:08 Acetaminophen Susp 650 Mg/20.3 Ml Udc TUBE 650 mg Q6H PRN Administration Fever/Mild Pain (1-3) Enoxaparin Sodium 40 mg 11/06/22 12:00 11/18/22 08:44 Enoxaparin 40 Mg/0.4 Ml Syringe SUBCUT 40 mg DAILY JYOTI Administration Folic Acid 1 mg 10/31/22 09:00 11/18/22 08:45 Folic Acid 1 Mg Tablet PO 1 mg DAILY JYOTI Administration Gabapentin 300 mg 11/06/22 09:45 11/18/22 08:45 Gabapentin 300 Mg Capsule TUBE 300 mg TID JYOTI Administration Sodium Chloride 500 mls @ 1,000 mls/hr 10/31/22 14:03 11/14/22 08:00 Normal Saline 0.9% IV Infused BOLUS PRN Infusion Fluid replacement Piperacillin Sod/Tazobactam 100 mls @ 25 mls/hr 11/13/22 13:15 11/18/22 09:55 Sod 3.375 gm/ Sodium Chloride IV 11/23/22 09:14 Infused Q8H JYOTI Infusion Fentanyl 1,000 mcg/ Dextrose 250 mls @ 9.8 mls/hr 11/14/22 12:15 11/16/22 18:24 IV 0.3 mcg/kg/hr TITRATE JYOTI 4.2 mls/hr Administration Protocol 0.7 MCG/KG/HR Propofol 1,000 mg in 100 mls @ 1.677 mls/hr 11/16/22 11:15 11/18/22 08:34 Propofol IV 10.44 mcg/kg/min TITRATE JYOTI 3.5 mls/hr Titration Protocol 5 MCG/KG/MIN Vasopressin 40 unit/ Sodium 102 mls @ 4.5 mls/hr 11/16/22 11:15 11/18/22 09:01 Chloride IV 0 mls/hr CONT JYOTI Infusion Midodrine 10 mg 11/17/22 10:00 11/18/22 08:45 Midodrine Hcl 5 Mg Tablet PO 10 mg TID JYOTI Administration Multivitamins 1 tab 10/31/22 09:00 11/18/22 08:45 Multivitamin 1 Tablet PO 1 tab DAILY JYOTI Administration Nicotine 7 mg 10/31/22 09:00 11/18/22 08:44 Nicotine 7 Mg Patch TOP 7 mg DAILY JYOTI Administration Ondansetron HCl 4 mg 10/31/22 01:07 11/12/22 23:15 Ondansetron 4 Mg/2 Ml Inj IV 4 mg Q4HR PRN Administration Nausea And Vomiting Oxycodone HCl 5 mg 11/16/22 13:00 11/18/22 08:45 Oxycodone Ir 5 Mg Tablet TUBE 5 mg Q4HR JYOTI Administration Pantoprazole Sodium 40 mg 11/13/22 09:00 11/18/22 10:00 Pantoprazole 40 Mg Packet PO 40 mg DAILY JYOTI Administration Quetiapine Fumarate 100 mg 11/17/22 21:00 11/18/22 08:45 Quetiapine 25 Mg Tablet PO 100 mg BID JYOTI Administration Objective Ventilator Parameters: Ventilator Settings FiO2 25 CPAP Pressure Amount 5 RT Vent Frequency 16 Ventilator Tidal Volume 390 Exhaled Vt/kg IBW 7 Positive End Expiratory 5 Pressure Ventilator Pressure Support 5 Inspiratory Phase Time 0.80 I:E Ratio 1:3.5 Patient Position HOB >= 30 degrees Labs Result Diagrams: 11/18/22 04:26 11/18/22 04:26 Labs: Laboratory Results - last 24 hr 11/17/22 11/18/22 11/18/22 07:39 04:26 04:26 WBC 7.4 RBC 2.86 L Hgb 8.5 L Hct 25.5 L MCV 89.3 MCH 29.7 MCHC 33.3 RDW 16.7 H Plt Count 414 H Sodium 136 L Potassium 3.4 Chloride 101 Carbon Dioxide 29 BUN 15 Creatinine 0.54 L Estimated GFR > 60 BUN/Creatinine Ratio 27.8 H Glucose 100 Calcium 8.3 L Total Bilirubin 0.3 AST 31 ALT 33 Alkaline Phosphatase 117 Total Protein 6.2 L Albumin 2.8 L Globulin 3.4 Albumin/Globulin Ratio 0.8 L Crossmatch See Detail Exam Vital Signs (past 8 hours): - 11/18/22 04:00 Oxygen Delivery Method Trach Collar Mechanical Ventilation Fraction of Inspired Oxygen 0.30 Oxygen Delivery Method Trach Collar,Mechanical Ventilation Oxygen Flow Rate 3 Const General: comfortable Resp Effort & Inspection: normal respiratory effort (via tracheostomy. 25% FiO2 TV 390 mL RR 16 PEEP 5) Cardio Rate: regular rate Rhythm: regular rhythm Neuro General: patient alert (RASS -3. Propofol 3.5 mcg/kg/min Fentanyl 0.3 mcg/kg/hr) Quality TeleICU VTE Deep Vein Thrombosis/Pulmonary Embolism Present on Admission: No Assessment & Plan Assessment and plan (1) Chronic respiratory failure with hypoxia: Status: Acute Plan: -Continue daily SAT/SBT. Would continue to wean fentanyl and increase schedule oxycodone as tolerated/needed; adjunctive Precedex would be potentially helpful. Alternatively, given tracheostomy status, could also just place pt on CPAP or even directly to trach collar for 15-30 minutes to see how he responds -Continue Seroquel -Reorientation measures -Given (-) cx data, favor limiting this second Zosyn course to 5 days (2) Tracheostomy in place: Status: Acute Plan: -See above (3) Delirium due to multiple etiologies: Status: Acute Plan: -See above Time Spent With Patient Time with patient: less than 30 minutes
--- NOTE | 2022-11-18 11:05 | DI.CT.S_ITS ---
PROCEDURE: CT CHEST ABD PEL W CON INDICATIONS: acute encephalopathy, trach'd/peg'd, worsening clinical stat TECHNIQUE: After the administration of intravenous contrast, 5 mm thick sections acquired from the lung apices to the symphysis. 5 mm coronal and sagittal reformats were performed, with additional 7 mm MIP reformats through the lungs. For radiation dose reduction, the following was used: automated exposure control, adjustment of mA and/or kV according to patient size. COMPARISON: [facility], CT, CT CHEST ABD PEL W CON, 10/30/2022, 17:28. FINDINGS: Image quality: Excellent. CHEST: Lungs and pleura: Development of moderate bilateral pleural effusions, left greater than right, with compressive bibasilar atelectasis. Previous extensive bilateral consolidation has largely resolved. There is patchy inferior lingula and right middle lobe atelectasis. Mediastinum: Heart size is normal. No pericardial effusion. No mediastinal or hilar adenopathy by size criteria. Thoracic aorta and central pulmonary arteries are normal in size. Esophagus is normal in caliber. No hiatal hernia. Chest wall: Interval placement of a trach collar with endotracheal tube placement. Cervical thoracic posterior lateral carlitos and pedicle screw fixation. This is unchanged. No axillary or supraclavicular adenopathy by size criteria. Thyroid gland is unremarkable. ABDOMEN: Solid organs: Liver is normal in size and enhancement. Gallbladder is now distended with gallbladder wall thickening and inflammatory change in the subjacent fat. Biliary system is non dilated. Pancreas enhances normally. Spleen is normal in size and enhancement. No adrenal nodules. Kidneys demonstrate normal size and enhancement, without hydronephrosis. Peritoneum and bowel: Interval percutaneous gastrostomy tube placement. Diverticulosis without evidence of diverticulitis. Mobile cecum. Cecum is now somewhat prominent without evidence of a twist. It was previously in the right lower quadrant, and is now in the mid abdomen. Interval development of [id number] ascites. Nodes and vessels: No retroperitoneal or mesenteric adenopathy by size criteria. Aorta and inferior vena cava are normal in size. Miscellaneous: No ventral hernias. PELVIS: Genitourinary: A Manley catheter is present in the bladder, which is decompressed. Miscellaneous: No inguinal hernias or adenopathy. Bones: No suspicious bony lesions. No vertebral body compression fractures. IMPRESSION: 1. Interval development of moderate bilateral pleural effusions and compressive bibasilar atelectasis. 2. Significant interval improvement in a diffuse pulmonary parenchymal process consistent with resolving infection or inflammation. There is continued patchy inferior right middle lobe and left lingula atelectasis. 3. Gallbladder has developed distension and wall thickening and inflammatory change in the adjacent fat. This may potentially represent a primary gallbladder process such as acute cholecystitis, or may be related to hepatocellular dysfunction. 4. Interval development of mild to moderate ascites. 5. Mobile cecum. Cecum has moved to the right mid abdomen, and is now prominent. Comment: Consider right upper quadrant ultrasound for further evaluation of the gallbladder. Dictated by: Juan Manuel Hampton M.D. on 11/18/2022 at 12:43 Approved by: Juan Manuel Hampton M.D. on 11/18/2022 at 12:52
--- NOTE | 2022-11-18 11:06 | DI.CT.S_ITS ---
PROCEDURE: CT HEAD/BRAIN WO CON INDICATIONS: acute encephalopathy TECHNIQUE: Noncontrast 4.5 mm thick angled axial sections acquired from the foramen magnum to the vertex, with coronal and sagittal reformats. For radiation dose reduction, the following was used: automated exposure control, adjustment of mA and/or kV according to patient size. COMPARISON: [facility], CT, CT HEAD/BRAIN WO CON, 11/02/2022, 11:06. FINDINGS: Image quality: Excellent. CSF spaces: Basal cisterns are patent. No extra-axial fluid collections. The ventricles are symmetric in size and shape. Brain: No intracranial bleeds or masses. There is cerebral volume loss for age, with resultant ventricular and sulcal prominence. There are periventricular and deep white matter chronic small vessel ischemic changes. Skull and face: Calvarium and visualized facial bones appear intact, without suspicious lesions. Sinuses: Left maxillary sinus air-fluid level. Bilateral sphenoid sinus air-fluid levels. Previous paranasal sinus surgery. IMPRESSION: 1. No evidence acute intracranial abnormality 2. Sinusitis. Dictated by: Juan Manuel Hampton M.D. on 11/18/2022 at 12:36 Approved by: Juan Manuel Hampton M.D. on 11/18/2022 at 12:38
--- NOTE | 2022-11-18 13:21 | PT-IP ANOTE ---
Skilled PT not indicated at this time. Pt unable to participate in therapy, must work toward functional outcomes and goals. Orders will be discharged at this time.
--- NOTE | 2022-11-18 14:17 | P.PN_ITS ---
Subjective Subjective Interval history: 61-year-old gentleman with hypertension, ankylosing spondylitis, heroin use, and alcohol dependence who was admitted with influenza a, bacterial pneumonia, acute hypoxic respiratory failure, and alcohol and heroin withdrawal symptoms.? He failed extubation on November 04 and required intubation.? He has remained on mechanical ventilation since that time. He is now status post trach and PEG tube placement on November 15. Patient remains lethargic. RN reports he has been off of propofol all morning but has had limited interaction with her. He does squeeze hands to command but is otherwise minimally responsive. Efforts have been made to liberate him from the ventilator but these have been unsuccessful. Exam Vital Signs (past 8 hours): - 11/18/22 10:00 11/18/22 10:00 11/18/22 10:10 Pulse Rate 100 H 100 H Respiratory Rate 22 22 Blood Pressure 96/60 Pulse Oximetry 95 95 11/18/22 10:20 11/18/22 10:30 11/18/22 10:30 Pulse Rate 109 H 95 H Respiratory Rate 26 H 21 Blood Pressure 89/52 L Pulse Oximetry 94 94 11/18/22 10:40 11/18/22 10:50 11/18/22 11:00 Pulse Rate 102 H 97 H Respiratory Rate 21 21 Blood Pressure 91/53 L Pulse Oximetry 94 94 11/18/22 11:00 11/18/22 11:10 11/18/22 11:20 Pulse Rate 100 H 103 H 100 H Respiratory Rate 33 H 26 H 46 H Blood Pressure Pulse Oximetry 93 79 L 97 11/18/22 11:30 11/18/22 11:30 11/18/22 11:40 Pulse Rate 102 H 102 H Respiratory Rate 31 H 28 H Blood Pressure 97/55 L Pulse Oximetry 93 96 11/18/22 11:50 11/18/22 12:30 11/18/22 12:40 Pulse Rate 102 H 94 H Respiratory Rate 22 Blood Pressure 98/63 Pulse Oximetry 97 11/18/22 12:41 11/18/22 12:41 11/18/22 12:50 Pulse Rate 93 H 92 H Respiratory Rate 18 14 Blood Pressure 100/65 Pulse Oximetry 97 96 11/18/22 13:00 11/18/22 13:00 Pulse Rate 94 H Respiratory Rate 28 H Blood Pressure 106/77 Pulse Oximetry 95 Fraction of Inspired Oxygen 0.30 Oxygen Delivery Method Trach Collar,Mechanical Ventilation Oxygen Flow Rate 3 Narrative Exam Narrative: GEN: Middle-aged male, intubated/sedate/lethargic, appears flushed HEENT:NC, Face symmetric CHEST: Respiratory excursions symmetric, coarse but clear bilaterally in the anterior lung north CV: RRR, no M/R/G ABD: Soft, diffusely tender, most notably around his G-tube site, moderate distention, BT present in all 4 quadrants EXTR: warm, well perfused, no C/C/E SKIN: warm and dry, no rash NEURO: Intubated, lethargic Objective Labs Result Diagrams: 11/18/22 04:26 11/18/22 04:26 Labs: Laboratory Results - last 24 hr 11/18/22 11/18/22 04:26 04:26 WBC 7.4 RBC 2.86 L Hgb 8.5 L Hct 25.5 L MCV 89.3 MCH 29.7 MCHC 33.3 RDW 16.7 H Plt Count 414 H Sodium 136 L Potassium 3.4 Chloride 101 Carbon Dioxide 29 BUN 15 Creatinine 0.54 L Estimated GFR > 60 BUN/Creatinine Ratio 27.8 H Glucose 100 Calcium 8.3 L Total Bilirubin 0.3 AST 31 ALT 33 Alkaline Phosphatase 117 Total Protein 6.2 L Albumin 2.8 L Globulin 3.4 Albumin/Globulin Ratio 0.8 L [facility] Medical History (Updated 11/18/22 @ 10:16 by Kb Anaya MD) Acid reflux Alcohol abuse Ankle pain Ankylosing spondylitis (1985) Ankylosing spondylitis Chronic back pain Foot pain Fracture cervical vertebra-closed GERD (gastroesophageal reflux disease) Hypertension Hypertension Muscle pain Tobacco use disorder, moderate, in early remission Surgical History History of open reduction and internal fixation (ORIF) procedure (2005) History of tonsillectomy Status post colonoscopy (2012) Status post incision and drainage Family History Father No problems noted. Mother Cancer Other Alcoholism Colorectal cancer Social History Smoking Status: Current every day smoker Assessment & Plan Assessment & Plan narrative: 1. Acute hypoxic respiratory failure patient remains intubated/mechanically ventilated.? He is postoperative day 3. From trach and PEG tube placement. Continue ventilator support.? He remains on Zosyn, presently day 04/03. Given his altered mentation despite decreasing doses of sedation, will obtain CT noncontrast of the head, chest, abdomen and pelvis to evaluate for underlying etiologies. 2. Bilateral bacterial pneumonia Bow[place] to be superinfection in the setting of influenza A.? Patient is back on Zosyn therapy as noted above, presently day 04/03 3. Acute metabolic encephalopathy Unclear etiology at this point. He has been treated for infection, alcohol withdrawal. He has persistent encephalopathy. Certainly could be critical illness related. Will obtain CT of the head as noted. Will also obtain CT of the chest/abdomen/pelvis given his ongoing difficulties liberating from the ventilator as well as abdominal pain on exam 4. Essential hypertension On metoprolol on an outpatient basis which has been held since admission. 9. Protein calorie malnutrition Remains on tube feeds. RN notes that he has been having difficulty with absorption today. She did attempt to draw residuals and pulled out all of his medications over 2-1/2 hours after giving the meds. Will add Reglan to hopefully improve absorption. 10. Normocytic anemia Hemoglobin was 10.8 on admission. Hemoglobin is presently stable and is currently 8.5. 11. Thrombocytosis Overall improved down from the mid 600s to 414 today. Resolved issues: Influenza a Alcohol withdrawal Septic shock with end-organ failure Stable issues: Alcohol dependence Heroin dependence Code status Full Prophylaxis Lovenox Disposition ICU.? Ongoing management per wallpaperer helper Time Spent With Patient Critical Care time: I spent a total of [] minutes of critical care time on this patient's care today; this time is exclusive of procedural time. Quality VTE Deep Vein Thrombosis/Pulmonary Embolism Present on Admission: No
--- NOTE | 2022-11-18 14:30 | CM.DPC ---
Addendum entered by VARGAS Cutler 11/18/22 15:26: ADD: Ex- Mercedes arrived bedside and TA met with her and discussed need for Care Conference/Goals of care with Dtr Radha and Mercedes discussed a few other family members that she thinks would be beneficial and states she talks with Dtr Radha as well and will try to contact all members to set up a Care Conference bedside with MD and care team for likely 11/20 around 1500 and SW provided her with the contact number for SW/DCP to give update tomorrow on confirming this care conference. BF Original Note: DCP Goals of Care Planning Per MD, pt still remains unable to be weaned from need of vent with Trach and prognosis seems poor and requests assist with getting Care Conference/Goals of Care meeting set up with family. TA called pt's Dtr Radha ([phone] and [phone]) and had to leave msg requesting call back to set up a meeting for tomorrow Mon. TA also called sister Elana but phone would not accept call or msg. No number listed for son Yifan. Called ex- Mercedes ([phone]) who SW has met bedside during a visit with pt and had to leave a msg for call back to set up a meeting. SW also left msg for Mercedes's Dtr, pt's step Dtr Sharda who has been bedside, and had to leave a msg. Barrier for setting up meeting is today is [place] Day and no family has been bedside and no return calls yet today. Plan: TA to continue to follow for contacting family, initially Dtr Radha, to set up Care Conference to determine if pt should remain full code or possible change to Comfort Care. VARGAS Cutler
[2022-11-18] MEDS: fentaNYL 1,000 MCG in DEXTROSE 5% IN WATER 230 ML 4.2 MCG IV (14:47)
[2022-11-18 15:44] LABS: Ammonia (NH3) < 9 umol/L (9-30)
--- NOTE | 2022-11-18 16:22 | PC.NURSE ---
Dayshift note: Pt remains on Propofol, sedated to RASS of +1, able to open eyes to his name and to voice, can follow commands. Fentany is infusing as well, vasopressin off, see emar for rates infusing. On vent settings FiO2 25%, TV 390, RR 16, and PEEP 5, was on a pressure support trial for 2.5 hours today before pt became exhausted and RR dropped to 5. SpO2 upper 90s all shift. Requires oral and trach suctioning with turns, clear and thin secretions. BP 80-90s/50s with MAP decreasing to 60-65, Vasopressin off all shift. Tube feeding through PEG tube was run during the night, residuals are more than 300, will hold tube feedings for 24 hours, Dr Panchal adding reglan, minimal medications through tube ok. Soft bilateral wrist restraints in place as pt reaches for all lines and trach tube. Turning every 2 hours to offload pressure, with bridging with pillows, to coccyx and sacrum, powder and barrier cream to buttock and surrounding areas. Bed low and locked, call light within reach, will continue to monitor.
[2022-11-18] MEDS: FUROSEMIDE 20 MG/2 ML VIAL IV (18:09)
[2022-11-18] MEDS: METOCLOPRAMIDE 10 MG/2 ML INJ 5 MG IV (18:09)
--- NOTE | 2022-11-18 20:28 | PM.ICURNDS ---
- Date Patient Seen: 11/18/22 Time Patient Seen: 20:28 :: This patient was seen via real time interactive two-way audiovisual telecommunication. Note: CT showed bilateral pleural effusion and ascites with no acute intraabdominal pathology. CTH negative for acute bleed or infarct. Ordered lasix 20 mg IV once as patient is off pressor. Cont gentle diuresis and seek early mobility. D/w RN at bedside.
[2022-11-18] MEDS: SODIUM CHLORIDE 0.9% 1,000 ML 1000 ML IV (22:40)
[2022-11-18] MEDS: NOREPINEPHRINE BITARTRATE/D5W 4 MG/250 ML PLAST..BAG 30 MG IV (22:45)
--- NOTE | 2022-11-18 22:47 | DI.RAD.S_ITS ---
PROCEDURE: XR CHEST 1V INDICATIONS: resp distress TECHNIQUE: One view of the chest was acquired. COMPARISON: [facility], CR, XR CHEST 1V, 11/17/2022, 9:55. FINDINGS: Surgical changes and devices: Right-sided central venous catheter is present with distal tip projecting over the mid SVC. Partially visualized cervical thoracic fixation rods are present. Lungs and pleura: Mild appearance of patchy bibasilar opacities are present relatively unchanged. Mediastinum: Mediastinal contours appear normal. Heart size is normal. Bones and chest wall: No suspicious bony lesions. Overlying soft tissues appear unremarkable. IMPRESSION: Stable interval exam demonstrating predominantly bibasilar opacities suspected to represent mild effusions with likely superimposed airspace disease such as pneumonia particularly within the left base. Dictated by: Nasima Goncalves M.D. on 11/18/2022 at 23:05 Approved by: Nasima Goncalves M.D. on 11/18/2022 at 23:06
--- NOTE | 2022-11-18 23:05 | PM.EVENT ---
Event Note Date Patient Seen: 11/18/22 Time Patient Seen: 23:05 Event Note (Rapid Response, Code, or fall): Was close to the unit when was notified the patient was very hypotensive, bp in the 50s/30sm MAP in the high 30s. Ordered for a NS 1L bolus. Patient has been sedated and trached and nurse informed she had given gabapentin and seroquel an hour prior. He is responsive to sternal rub with respiratory rate going down to as low as 8. [facility] notified, chest xray, rainbow panel, abg and EKG ordered. Bolus was started and norepi started at 8 mics then increased to 16 per carbon capture power plant engineer, propafal and fentanyl drip stopped. Appears his bp came up quickly so norepi backed off to 8 mcgs/hour. Review labs, cardiac enzymes, continues to be mildly anemic, but greatly improved over yesterday. ABG and chest xray are unremarkable. Likely a combination of sedating medications caused a momentary drop in his BP. Now stable. Critical care time: 40 minutes.
[2022-11-18 23:17] LABS: Add Manual Diff / Slide Review NO; Basophils Absolute Auto 100 /uL (0-100); Basophils Percent Auto 0.7 % (0-2); Eosinophils Absolute Auto 800 /uL (0-450); Eosinophils Percent Auto 7.9 % (2-4); Hematocrit 31.5 % (41-53); Hemoglobin 10.8 g/dL (13.5-17.5); Lymphocytes Absolute Auto 2100 /uL (1100-4500); Lymphocytes Percent Auto 19.8 % (25-40); Mean Corpuscular HGB Conc 34.2 % (30-36); Mean Corpuscular Hemoglobin 30.1 PG (26-34); Mean Corpuscular Volume 87.9 fL (80-100); Monocytes Absolute Auto 800 /uL (0-900); Neutrophils Absolute Auto 6700 /uL (1500-7000); Neutrophils Percent Auto 63.6 % (50-75); Platelet Count 533 X10^3/uL (150-400); Red Blood Cell Count 3.59 X10^6/uL (4.5-5.9); Red Cell Distribution Width 16.8 % (11.6-14.8); White Blood Cell Count 10.6 X10^3/uL (4.5-11.0)
[2022-11-18] MEDS: NOREPINEPHRINE BITARTRATE/D5W 4 MG/250 ML PLAST..BAG 8 MG IV (23:19)
[2022-11-18 23:24] LABS: Lactate (Lactic Acid) 0.7 mmol/L (0.7-2.1)
[2022-11-18 23:25] LABS: BUN Creatinine Ratio 18.8 (6-22); Blood Urea Nitrogen 12 mg/dL (9-20); Calcium 8.1 mg/dL (8.4-10.2); Carbon Dioxide 29 mmol/L (22-32); Chloride 104 mmol/L (98-107); Creatine Kinase 40 U/L (55-170); Estimated Glomerular Filt Rate > 60 mL/min (>60); Glucose 96 mg/dL (80-110); HEMOLYSIS < 15 (0-50); Magnesium 1.8 mg/dL (1.6-2.3); Potassium 3.4 mmol/L (3.4-5.1); Sodium 138 mmol/L (137-145)
[2022-11-18 23:38] LABS: Troponin I 0.017 ng/mL (0.01-0.034)
[2022-11-18 23:42] LABS: Procalcitonin 0.17 ng/mL (<0.5)
[2022-11-19] VITALS (162 sets, daily range): BP systolic 84–128; BP diastolic 55–87; PULSE 86–108; RESP 0–29; TEMP 36.6–36.8; O2SAT 92–100
[2022-11-19] MEDS: METOCLOPRAMIDE 10 MG/2 ML INJ 5 MG IV ×5 (00:07→23:24)
--- NOTE | 2022-11-19 01:20 | PC.NURSE ---
Pharmacist Helper Note-At beginning of shift, patient was sedated with propofol at 3.5mcg and Fentanyl at 0.3mcg, increased to 0.5mcg for FLACC 5-6, propofol up to 7mcg briefly, but titrated down to 2mcg d/y hypotension. Then at 2230, patients BP dropped to 57/33(41) and trending down, see vitals, DIVERSIFIED CROPS FARMWORKER in room, 1 liter NS bolus started, propofol and Fentanyl stopped, [employer] [employer] called on screen in room, Levophed started at 8mcg, increased to 16mcg briefly, up and down until 2320, now is at 7mcg to keep MAP >65. CXR, ABG, EKG done, labs drawn. Patient grimaces and and is responsive to sternal rub.
--- NOTE | 2022-11-19 01:29 | PM.EICU.INT ---
Teleintensivist Intervention Date/Time Was camera activated?: Yes Date Patient Seen: 11/19/22 Time Patient Seen: 01:29 Issue(s) Addressed Issue(s): Shock/hypotension Intervention(s) :: pt with acute hypotension after receiving night meds. diuresis earlier today with Uo 2l+ labs sent, HnH stable ekg w/no changes will give ivf bolus pressors started diuretics held will re-eval Plan discussed with: Physician/provider Name(s): Dell
[2022-11-19 05:02] LABS: Blood Urea Nitrogen 11 mg/dL (9-20); Calcium 8.3 mg/dL (8.4-10.2); Carbon Dioxide 28 mmol/L (22-32); Chloride 104 mmol/L (98-107); Estimated Glomerular Filt Rate > 60 mL/min (>60); Glucose 107 mg/dL (80-110); HEMOLYSIS < 15 (0-50); Magnesium 1.8 mg/dL (1.6-2.3); Potassium 3.5 mmol/L (3.4-5.1); Sodium 139 mmol/L (137-145)
[2022-11-19] MEDS: PIPERACILLIN/TAZO 3.375 GM in SODIUM CHLORIDE 0.9% 100 ML IV ×3 (05:02→20:34)
[2022-11-19 06:30] LABS: HCO3 ABG 27 mmol/L (22-26); PO2 ABG 77 mmHg (80-100); pH ABG 7.49 (7.35-7.45)
[2022-11-19 06:31] LABS: Fractionated Inspired Oxygen 25; Oxygen Saturation ABG 96 % (95-100); TCO2 ABG 28 mmol/L (21-31)
[2022-11-19] MEDS: NOREPINEPHRINE BITARTRATE/D5W 4 MG/250 ML PLAST..BAG 26.25 MG IV (07:22)
[2022-11-19] MEDS: ENOXAPARIN 40 MG/0.4 ML SYRINGE SUBCUT (09:18)
[2022-11-19] MEDS: MULTIVITAMIN 1 TABLET 1 TAB PO (09:19)
[2022-11-19] MEDS: GABAPENTIN 300 MG CAPSULE TUBE ×3 (09:19→20:13)
[2022-11-19] MEDS: MIDODRINE HCL 5 MG TABLET 10 MG PO ×3 (09:19→20:13)
[2022-11-19] MEDS: QUETIAPINE 25 MG TABLET 100 MG PO ×2 (09:19→20:13)
[2022-11-19] MEDS: FOLIC ACID 1 MG TABLET PO (09:19)
[2022-11-19] MEDS: PANTOPRAZOLE 40 MG **PACKET PO (09:23)
[2022-11-19] MEDS: LACTATED RINGERS 500 ML 1000 ML IV (09:54)
[2022-11-19] MEDS: NICOTINE 7 MG PATCH TOP (10:23)
--- NOTE | 2022-11-19 10:23 | P.TELICUPN_ITS ---
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 Panchal, bedside nurse Current Medications Current Medications Medications: Home Medications indomethacin 50 mg capsule 50 mg PO TIDP PRN pain, moderate #90 caps 10/13/18 [Rx Confirmed 11/13/22] amitriptyline 25 mg tablet 25 mg PO BEDTIME #30 tabs 01/07/19 [Rx Confirmed 11/13/22] cyclobenzaprine 10 mg tablet 10 mg PO TIDP #90 tabs 11/19/19 [Rx Confirmed 11/13/22] gabapentin 300 mg capsule (Neurontin) 300 mg PO Q8H #90 caps 11/19/19 [Rx Confirmed 11/13/22] metoprolol succinate 50 mg tablet,extended release 24 hr (Toprol XL) 50 mg PO BID #60 tabs 11/19/19 [Rx Confirmed 11/13/22] omeprazole 20 mg capsule,delayed release 20 mg PO QDAY #30 caps 11/19/19 [Rx Confirmed 11/13/22] Visit Medications (administered) Generic Name Dose Route Start Last Admin Trade Name Freq PRN Reason Stop Dose Admin Acetaminophen 650 mg 11/11/22 07:55 11/15/22 23:08 Acetaminophen Susp 650 Mg/20.3 Ml Udc TUBE 650 mg Q6H PRN Administration Fever/Mild Pain (1-3) Enoxaparin Sodium 40 mg 11/06/22 12:00 11/19/22 09:18 Enoxaparin 40 Mg/0.4 Ml Syringe SUBCUT 40 mg DAILY JYOTI Administration Folic Acid 1 mg 10/31/22 09:00 11/19/22 09:19 Folic Acid 1 Mg Tablet PO 1 mg DAILY JYOTI Administration Gabapentin 300 mg 11/06/22 09:45 11/19/22 09:19 Gabapentin 300 Mg Capsule TUBE 300 mg TID JYOTI Administration Sodium Chloride 500 mls @ 1,000 mls/hr 10/31/22 14:03 11/14/22 08:00 Normal Saline 0.9% IV Infused BOLUS PRN Infusion Fluid replacement Piperacillin Sod/Tazobactam 100 mls @ 25 mls/hr 11/13/22 13:15 11/19/22 05:02 Sod 3.375 gm/ Sodium Chloride IV 11/23/22 09:14 25 mls/hr Q8H JYOTI Administration Fentanyl 1,000 mcg/ Dextrose 250 mls @ 9.8 mls/hr 11/14/22 12:15 11/18/22 22:30 IV 0 mcg/kg/hr TITRATE JYOTI 0 mls/hr Titration Protocol 0.7 MCG/KG/HR Propofol 1,000 mg in 100 mls @ 1.677 mls/hr 11/16/22 11:15 11/18/22 23:18 Propofol IV 0 mcg/kg/min TITRATE JYOTI 0 mls/hr Titration Protocol 5 MCG/KG/MIN Vasopressin 40 unit/ Sodium 102 mls @ 4.5 mls/hr 11/16/22 11:15 11/18/22 09:01 Chloride IV 0 mls/hr CONT JYOTI Infusion NOREPINEPHRINE BITARTRATE/D5W 4 mg in 250 mls @ 30 mls/hr 11/18/22 23:22 11/19/22 08:59 Levophed IV 6 mcg/min TITRATE JYOTI 22.5 mls/hr Titration Protocol 8 MCG/MIN Metoclopramide HCl 5 mg 11/18/22 18:00 11/19/22 06:20 Metoclopramide 10 Mg/2 Ml Inj IV 5 mg Q6HR JYOTI Administration Midodrine 10 mg 11/17/22 10:00 11/19/22 09:19 Midodrine Hcl 5 Mg Tablet PO 10 mg TID JYOTI Administration Multivitamins 1 tab 10/31/22 09:00 11/19/22 09:19 Multivitamin 1 Tablet PO 1 tab DAILY JYOTI Administration Nicotine 7 mg 10/31/22 09:00 11/18/22 08:44 Nicotine 7 Mg Patch TOP 7 mg DAILY JYOTI Administration Ondansetron HCl 4 mg 10/31/22 01:07 11/12/22 23:15 Ondansetron 4 Mg/2 Ml Inj IV 4 mg Q4HR PRN Administration Nausea And Vomiting Oxycodone HCl 5 mg 11/16/22 13:00 11/19/22 09:51 Oxycodone Ir 5 Mg Tablet TUBE Not Given Q4HR JYOTI Pantoprazole Sodium 40 mg 11/13/22 09:00 11/19/22 09:23 Pantoprazole 40 Mg Packet PO 40 mg DAILY JYOTI Administration Quetiapine Fumarate 100 mg 11/17/22 21:00 11/19/22 09:19 Quetiapine 25 Mg Tablet PO 100 mg BID JYOTI Administration Objective Ventilator Parameters: Ventilator Settings FiO2 25 CPAP Pressure Amount 5 RT Vent Frequency 16 Ventilator Tidal Volume 390 Exhaled Vt/kg IBW 7 Positive End Expiratory 5 Pressure Ventilator Pressure Support 2 Inspiratory Phase Time 0.8 I:E Ratio 1:3.7 Patient Position HOB >= 30 degrees Labs Result Diagrams: 11/18/22 23:02 11/19/22 04:40 Labs: Laboratory Results - last 24 hr 11/18/22 11/18/22 11/18/22 15:23 23:02 23:02 WBC 10.6 RBC 3.59 L Hgb 10.8 L Hct 31.5 L MCV 87.9 MCH 30.1 MCHC 34.2 RDW 16.8 H Plt Count 533 H Neut % (Auto) 63.6 Lymph % (Auto) 19.8 L [place] % (Auto) 8.0 Eos % (Auto) 7.9 H Baso % (Auto) 0.7 Neut # (Auto) 6700 Lymph # (Auto) 2100 [place] # (Auto) 800 Eos # (Auto) 800 H Baso # (Auto) 100 ABG pH ABG pCO2 ABG pO2 ABG HCO3 ABG Total CO2 ABG O2 Saturation ABG Base Excess FiO2 Sodium 138 Potassium 3.4 Chloride 104 Carbon Dioxide 29 BUN 12 Creatinine 0.64 L Estimated GFR > 60 BUN/Creatinine Ratio 18.8 Glucose 96 Lactate Calcium 8.1 L Magnesium Ammonia < 9 L Total Creatine Kinase CK-MB (CK-2) CK-MB (CK-2) Rel Index Troponin I Procalcitonin 11/18/22 11/18/22 11/18/22 23:02 23:02 23:02 WBC RBC Hgb Hct MCV MCH MCHC RDW Plt Count Neut % (Auto) Lymph % (Auto) [place] % (Auto) Eos % (Auto) Baso % (Auto) Neut # (Auto) Lymph # (Auto) [place] # (Auto) Eos # (Auto) Baso # (Auto) ABG pH ABG pCO2 ABG pO2 ABG HCO3 ABG Total CO2 ABG O2 Saturation ABG Base Excess FiO2 Sodium Potassium Chloride Carbon Dioxide BUN Creatinine Estimated GFR BUN/Creatinine Ratio Glucose Lactate 0.7 Calcium Magnesium Ammonia Total Creatine Kinase 40 L CK-MB (CK-2) TNP CK-MB (CK-2) Rel Index TNP Troponin I 0.017 Procalcitonin 0.17 11/18/22 11/18/22 11/19/22 23:02 23:20 04:40 WBC RBC Hgb Hct MCV MCH MCHC RDW Plt Count Neut % (Auto) Lymph % (Auto) [place] % (Auto) Eos % (Auto) Baso % (Auto) Neut # (Auto) Lymph # (Auto) [place] # (Auto) Eos # (Auto) Baso # (Auto) ABG pH 7.49 H ABG pCO2 35.0 ABG pO2 77 L ABG HCO3 27 H ABG Total CO2 28 ABG O2 Saturation 96 ABG Base Excess 3.0 H FiO2 25 Sodium 139 Potassium 3.5 Chloride 104 Carbon Dioxide 28 BUN 11 Creatinine 0.61 L Estimated GFR > 60 BUN/Creatinine Ratio 18.0 Glucose 107 Lactate Calcium 8.3 L Magnesium 1.8 1.8 Ammonia Total Creatine Kinase CK-MB (CK-2) CK-MB (CK-2) Rel Index Troponin I Procalcitonin Exam Vital Signs (past 8 hours): - 11/19/22 02:30 11/19/22 02:30 11/19/22 02:40 Pulse Rate 93 H 95 H Respiratory Rate 17 16 Blood Pressure 105/61 Pulse Oximetry 98 98 Oxygen Delivery Method 11/19/22 02:45 11/19/22 02:45 11/19/22 02:50 Pulse Rate 94 H 94 H Respiratory Rate 17 18 Blood Pressure 103/59 L Pulse Oximetry 98 98 Oxygen Delivery Method 11/19/22 04:00 11/19/22 03:00 11/19/22 03:00 Pulse Rate 94 H Respiratory Rate 18 Blood Pressure 106/62 Pulse Oximetry 99 Oxygen Delivery Method Trach Collar Mechanical Ventilation 11/19/22 03:10 11/19/22 03:15 11/19/22 03:15 Pulse Rate 95 H 96 H Respiratory Rate 17 16 Blood Pressure 114/73 Pulse Oximetry 97 98 Oxygen Delivery Method 11/19/22 03:20 11/19/22 03:30 11/19/22 03:30 Pulse Rate 94 H 94 H Respiratory Rate 17 18 Blood Pressure 107/63 Pulse Oximetry 99 98 Oxygen Delivery Method 11/19/22 03:40 11/19/22 03:45 11/19/22 03:45 Pulse Rate 94 H 94 H Respiratory Rate 19 17 Blood Pressure 112/65 Pulse Oximetry 99 98 Oxygen Delivery Method 11/19/22 03:50 11/19/22 04:00 11/19/22 04:00 Pulse Rate 96 H 96 H Respiratory Rate 18 18 Blood Pressure 108/64 Pulse Oximetry 99 99 Oxygen Delivery Method 11/19/22 04:10 11/19/22 04:15 11/19/22 04:15 Pulse Rate 94 H 94 H Respiratory Rate 18 18 Blood Pressure 106/64 Pulse Oximetry 99 99 Oxygen Delivery Method 11/19/22 04:20 11/19/22 04:30 11/19/22 04:30 Pulse Rate 94 H 94 H Respiratory Rate 20 17 Blood Pressure 111/68 Pulse Oximetry 99 98 Oxygen Delivery Method 11/19/22 04:40 11/19/22 04:45 11/19/22 04:45 Pulse Rate 97 H 94 H Respiratory Rate 18 18 Blood Pressure 111/67 Pulse Oximetry 99 99 Oxygen Delivery Method 11/19/22 04:50 11/19/22 05:00 11/19/22 05:00 Pulse Rate 95 H 96 H Respiratory Rate 18 18 Blood Pressure 113/67 Pulse Oximetry 99 99 Oxygen Delivery Method 11/19/22 05:10 11/19/22 05:15 11/19/22 05:15 Pulse Rate 96 H 97 H Respiratory Rate 18 17 Blood Pressure 109/66 Pulse Oximetry 99 98 Oxygen Delivery Method 11/19/22 05:20 11/19/22 05:30 11/19/22 05:30 Pulse Rate 96 H 96 H Respiratory Rate 18 17 Blood Pressure 104/60 Pulse Oximetry 99 98 Oxygen Delivery Method 11/19/22 05:40 11/19/22 05:45 11/19/22 05:45 Pulse Rate 97 H 97 H Respiratory Rate 17 19 Blood Pressure 112/64 Pulse Oximetry 97 97 Oxygen Delivery Method 11/19/22 05:50 11/19/22 06:00 11/19/22 06:00 Pulse Rate 100 H 97 H Respiratory Rate 13 2 L Blood Pressure 114/65 Pulse Oximetry 98 98 Oxygen Delivery Method 11/19/22 06:10 11/19/22 06:15 11/19/22 06:15 Pulse Rate 98 H 97 H Respiratory Rate 9 L 4 L Blood Pressure 103/64 Pulse Oximetry 99 98 Oxygen Delivery Method 11/19/22 06:20 11/19/22 06:30 11/19/22 06:31 Pulse Rate 96 H 96 H 97 H Respiratory Rate 8 L 5 L 0 L Blood Pressure Pulse Oximetry 99 99 99 Oxygen Delivery Method 11/19/22 06:31 11/19/22 06:40 11/19/22 06:45 Pulse Rate 95 H Respiratory Rate 0 L Blood Pressure 128/68 125/78 Pulse Oximetry 99 Oxygen Delivery Method 11/19/22 06:45 11/19/22 06:50 11/19/22 07:00 Pulse Rate 94 H 94 H Respiratory Rate 5 L 2 L Blood Pressure 103/62 Pulse Oximetry 99 99 Oxygen Delivery Method 11/19/22 07:00 11/19/22 07:10 11/19/22 07:15 Pulse Rate 96 H 93 H Respiratory Rate 7 L 5 L Blood Pressure 102/68 Pulse Oximetry 99 98 Oxygen Delivery Method 11/19/22 07:15 11/19/22 07:20 11/19/22 07:30 Pulse Rate 94 H 93 H Respiratory Rate 7 L 9 L Blood Pressure 122/68 Pulse Oximetry 98 98 Oxygen Delivery Method 11/19/22 07:30 Pulse Rate 95 H Respiratory Rate 7 L Blood Pressure Pulse Oximetry 98 Oxygen Delivery Method Fraction of Inspired Oxygen 0.30 Oxygen Delivery Method Trach Collar,Mechanical Ventilation Oxygen Flow Rate 3 Quality TeleICU VTE Deep Vein Thrombosis/Pulmonary Embolism Present on Admission: No Assessment & Plan Assessment and plan (1) Chronic respiratory failure with hypoxia: Status: Acute (2) Tracheostomy in place: Status: Acute Plan: -See above (3) Delirium due to multiple etiologies: Status: Acute Plan: -See above Assessment & Plan narrative: patient seen with bedside nurse and provider Dr. Panchal, discussed plan at length chart/labs/imaging reviewed events overnight noted 61 year old male admitted to icu with chronic resp failure ams eoth withdrawal shock, multifactorial currently afebrile, sbp requiring levophed minimal vent settings sedated suggest -neurochecks/seizure precautions -avoid over sedation -Continue Seroquel check qtc -Reorientation measures -wean vent to trach collar -ivf bolus, avoid diuretics today -continue abx, 5 total days of zosyn -remove cvp line, place midline/peripherals or picc -wean off pressors -restart feeds, do no check residual unless abdominal distention or vomiting -monitor ins/outs -replace lytes pr -gi/dvt ppx -please call eICU if condition changes total ccm time 65 mins Time Spent With Patient Time with patient: less than 30 minutes Critical Care time: I spent a total of [] minutes of critical care time on this patient's care to day; this time is exclusive of procedural time.
[2022-11-19] MEDS: MAGNESIUM SULFATE 2 GM/50 ML PIGGYBACK IV (10:26)
--- NOTE | 2022-11-19 11:14 | PM.PN.1 ---
Subjective Subjective Interval history: 61-year-old gentleman with hypertension, ankylosing spondylitis, heroin use, and alcohol dependence who was admitted with influenza a, bacterial pneumonia, acute hypoxic respiratory failure, and alcohol and heroin withdrawal symptoms.? He failed extubation on November 04 and required intubation.? He has remained on mechanical ventilation since that time.? He is now status post trach and PEG tube placement on November 15. RN notes he is off sedation entirely. His only remaining infusion is norepi. He did develop hypotension yesterday and received 1L IVF. Diuretics were subsequently held. Oxycodone was held this am as well. RN notes he was more awake earlier this am, attempting to communicate. Currently sleeping. Tube feeds have been held over the past 24 hours d/t concerns that he was not metabolizing them well (RN yesterday was pulling out undigested medications nearly 3 hours after giving them). Small BM yesterday am. Reglan intiated yesterday afternoon. Pt did not arouse for me. Exam Vital Signs (past 8 hours): - 11/19/22 04:00 11/19/22 03:15 11/19/22 03:15 Pulse Rate 96 H Respiratory Rate 16 Blood Pressure 114/73 Pulse Oximetry 98 Oxygen Delivery Method Trach Collar Mechanical Ventilation 11/19/22 03:20 11/19/22 03:30 11/19/22 03:30 Pulse Rate 94 H 94 H Respiratory Rate 17 18 Blood Pressure 107/63 Pulse Oximetry 99 98 Oxygen Delivery Method 11/19/22 03:40 11/19/22 03:45 11/19/22 03:45 Pulse Rate 94 H 94 H Respiratory Rate 19 17 Blood Pressure 112/65 Pulse Oximetry 99 98 Oxygen Delivery Method 11/19/22 03:50 11/19/22 04:00 11/19/22 04:00 Pulse Rate 96 H 96 H Respiratory Rate 18 18 Blood Pressure 108/64 Pulse Oximetry 99 99 Oxygen Delivery Method 11/19/22 04:10 11/19/22 04:15 11/19/22 04:15 Pulse Rate 94 H 94 H Respiratory Rate 18 18 Blood Pressure 106/64 Pulse Oximetry 99 99 Oxygen Delivery Method 11/19/22 04:20 11/19/22 04:30 11/19/22 04:30 Pulse Rate 94 H 94 H Respiratory Rate 20 17 Blood Pressure 111/68 Pulse Oximetry 99 98 Oxygen Delivery Method 11/19/22 04:40 11/19/22 04:45 11/19/22 04:45 Pulse Rate 97 H 94 H Respiratory Rate 18 18 Blood Pressure 111/67 Pulse Oximetry 99 99 Oxygen Delivery Method 11/19/22 04:50 11/19/22 05:00 11/19/22 05:00 Pulse Rate 95 H 96 H Respiratory Rate 18 18 Blood Pressure 113/67 Pulse Oximetry 99 99 Oxygen Delivery Method 11/19/22 05:10 11/19/22 05:15 11/19/22 05:15 Pulse Rate 96 H 97 H Respiratory Rate 18 17 Blood Pressure 109/66 Pulse Oximetry 99 98 Oxygen Delivery Method 11/19/22 05:20 11/19/22 05:30 11/19/22 05:30 Pulse Rate 96 H 96 H Respiratory Rate 18 17 Blood Pressure 104/60 Pulse Oximetry 99 98 Oxygen Delivery Method 11/19/22 05:40 11/19/22 05:45 11/19/22 05:45 Pulse Rate 97 H 97 H Respiratory Rate 17 19 Blood Pressure 112/64 Pulse Oximetry 97 97 Oxygen Delivery Method 11/19/22 05:50 11/19/22 06:00 11/19/22 06:00 Pulse Rate 100 H 97 H Respiratory Rate 13 2 L Blood Pressure 114/65 Pulse Oximetry 98 98 Oxygen Delivery Method 11/19/22 06:10 11/19/22 06:15 11/19/22 06:15 Pulse Rate 98 H 97 H Respiratory Rate 9 L 4 L Blood Pressure 103/64 Pulse Oximetry 99 98 Oxygen Delivery Method 11/19/22 06:20 11/19/22 06:30 11/19/22 06:31 Pulse Rate 96 H 96 H 97 H Respiratory Rate 8 L 5 L 0 L Blood Pressure Pulse Oximetry 99 99 99 Oxygen Delivery Method 11/19/22 06:31 11/19/22 06:40 11/19/22 06:45 Pulse Rate 95 H Respiratory Rate 0 L Blood Pressure 128/68 125/78 Pulse Oximetry 99 Oxygen Delivery Method 11/19/22 06:45 11/19/22 06:50 11/19/22 07:00 Pulse Rate 94 H 94 H Respiratory Rate 5 L 2 L Blood Pressure 103/62 Pulse Oximetry 99 99 Oxygen Delivery Method 11/19/22 07:00 11/19/22 07:10 11/19/22 07:15 Pulse Rate 96 H 93 H Respiratory Rate 7 L 5 L Blood Pressure 102/68 Pulse Oximetry 99 98 Oxygen Delivery Method 11/19/22 07:15 11/19/22 07:20 11/19/22 07:30 Pulse Rate 94 H 93 H Respiratory Rate 7 L 9 L Blood Pressure 122/68 Pulse Oximetry 98 98 Oxygen Delivery Method 11/19/22 07:30 11/19/22 07:40 11/19/22 07:45 Pulse Rate 95 H 92 H Respiratory Rate 7 L 3 L Blood Pressure 108/66 Pulse Oximetry 98 98 Oxygen Delivery Method 11/19/22 07:45 11/19/22 07:50 11/19/22 08:00 Pulse Rate 92 H 92 H Respiratory Rate 0 L 0 L Blood Pressure 116/75 Pulse Oximetry 98 100 Oxygen Delivery Method 11/19/22 08:00 11/19/22 08:10 11/19/22 08:15 Pulse Rate 91 H 92 H Respiratory Rate 6 L 8 L Blood Pressure 112/79 Pulse Oximetry 99 99 Oxygen Delivery Method 11/19/22 08:15 11/19/22 08:20 11/19/22 08:30 Pulse Rate 91 H 91 H Respiratory Rate 0 L 0 L Blood Pressure 125/81 Pulse Oximetry 99 99 Oxygen Delivery Method 11/19/22 08:30 11/19/22 08:40 11/19/22 08:45 Pulse Rate 91 H 90 91 H Respiratory Rate 4 L 5 L 0 L Blood Pressure Pulse Oximetry 98 98 98 Oxygen Delivery Method 11/19/22 08:45 11/19/22 08:50 11/19/22 09:00 Pulse Rate 91 H Respiratory Rate 6 L Blood Pressure 127/87 125/68 Pulse Oximetry 98 Oxygen Delivery Method 11/19/22 09:00 11/19/22 09:05 11/19/22 09:05 Pulse Rate 93 H 93 H Respiratory Rate 5 L 0 L Blood Pressure 113/63 Pulse Oximetry 97 97 Oxygen Delivery Method 11/19/22 09:10 11/19/22 09:15 11/19/22 09:15 Pulse Rate 93 H 91 H Respiratory Rate 5 L 0 L Blood Pressure 120/73 Pulse Oximetry 97 97 Oxygen Delivery Method 11/19/22 09:20 11/19/22 09:30 11/19/22 09:30 Pulse Rate 93 H 93 H Respiratory Rate 4 L 1 L Blood Pressure 110/81 Pulse Oximetry 97 97 Oxygen Delivery Method 11/19/22 09:40 11/19/22 09:45 11/19/22 09:45 Pulse Rate 97 H 101 H Respiratory Rate 0 L 0 L Blood Pressure 93/60 Pulse Oximetry 97 96 Oxygen Delivery Method 11/19/22 09:50 11/19/22 10:00 11/19/22 10:00 Pulse Rate 101 H 102 H Respiratory Rate 0 L 0 L Blood Pressure 94/62 Pulse Oximetry 96 96 Oxygen Delivery Method 11/19/22 10:10 11/19/22 10:15 11/19/22 10:15 Pulse Rate 103 H 101 H Respiratory Rate 0 L 0 L Blood Pressure 101/60 Pulse Oximetry 97 97 Oxygen Delivery Method 11/19/22 10:20 11/19/22 10:30 11/19/22 10:30 Pulse Rate 100 H 99 H Respiratory Rate 0 L 0 L Blood Pressure 97/61 Pulse Oximetry 97 97 Oxygen Delivery Method 11/19/22 10:40 11/19/22 10:45 11/19/22 10:45 Pulse Rate 100 H 97 H Respiratory Rate 0 L 0 L Blood Pressure 103/65 Pulse Oximetry 98 98 Oxygen Delivery Method 11/19/22 10:50 11/19/22 11:00 11/19/22 11:00 Pulse Rate 96 H 94 H Respiratory Rate 0 L 0 L Blood Pressure 107/68 Pulse Oximetry 98 98 Oxygen Delivery Method Fraction of Inspired Oxygen 0.30 Oxygen Delivery Method Trach Collar,Mechanical Ventilation Oxygen Flow Rate 3 Narrative Exam Narrative: GEN:? Middle-aged male, intubated/sedate/lethargic, ill appearing HEENT:NC, Face symmetric CHEST: Respiratory excursions symmetric, coarse but clear bilaterally in the anterior lung north CV: RRR, no M/R/G ABD: Soft, diffusely tender, grimaces w/exam, moderate distention, BT present in all 4 quadrants EXTR: warm, well perfused, no C/C/E SKIN: warm and dry, no rash NEURO:? Intubated, lethargic Objective Labs Result Diagrams: 11/18/22 23:02 11/19/22 04:40 Labs: Laboratory Results - last 24 hr 11/18/22 11/18/22 11/18/22 15:23 23:02 23:02 WBC 10.6 RBC 3.59 L Hgb 10.8 L Hct 31.5 L MCV 87.9 MCH 30.1 MCHC 34.2 RDW 16.8 H Plt Count 533 H Neut % (Auto) 63.6 Lymph % (Auto) 19.8 L [place] % (Auto) 8.0 Eos % (Auto) 7.9 H Baso % (Auto) 0.7 Neut # (Auto) 6700 Lymph # (Auto) 2100 [place] # (Auto) 800 Eos # (Auto) 800 H Baso # (Auto) 100 ABG pH ABG pCO2 ABG pO2 ABG HCO3 ABG Total CO2 ABG O2 Saturation ABG Base Excess FiO2 Sodium 138 Potassium 3.4 Chloride 104 Carbon Dioxide 29 BUN 12 Creatinine 0.64 L Estimated GFR > 60 BUN/Creatinine Ratio 18.8 Glucose 96 Lactate Calcium 8.1 L Magnesium Ammonia < 9 L Total Creatine Kinase CK-MB (CK-2) CK-MB (CK-2) Rel Index Troponin I Procalcitonin 11/18/22 11/18/22 11/18/22 23:02 23:02 23:02 WBC RBC Hgb Hct MCV MCH MCHC RDW Plt Count Neut % (Auto) Lymph % (Auto) [place] % (Auto) Eos % (Auto) Baso % (Auto) Neut # (Auto) Lymph # (Auto) [place] # (Auto) Eos # (Auto) Baso # (Auto) ABG pH ABG pCO2 ABG pO2 ABG HCO3 ABG Total CO2 ABG O2 Saturation ABG Base Excess FiO2 Sodium Potassium Chloride Carbon Dioxide BUN Creatinine Estimated GFR BUN/Creatinine Ratio Glucose Lactate 0.7 Calcium Magnesium Ammonia Total Creatine Kinase 40 L CK-MB (CK-2) TNP CK-MB (CK-2) Rel Index TNP Troponin I 0.017 Procalcitonin 0.17 11/18/22 11/18/22 11/19/22 23:02 23:20 04:40 WBC RBC Hgb Hct MCV MCH MCHC RDW Plt Count Neut % (Auto) Lymph % (Auto) [place] % (Auto) Eos % (Auto) Baso % (Auto) Neut # (Auto) Lymph # (Auto) [place] # (Auto) Eos # (Auto) Baso # (Auto) ABG pH 7.49 H ABG pCO2 35.0 ABG pO2 77 L ABG HCO3 27 H ABG Total CO2 28 ABG O2 Saturation 96 ABG Base Excess 3.0 H FiO2 25 Sodium 139 Potassium 3.5 Chloride 104 Carbon Dioxide 28 BUN 11 Creatinine 0.61 L Estimated GFR > 60 BUN/Creatinine Ratio 18.0 Glucose 107 Lactate Calcium 8.3 L Magnesium 1.8 1.8 Ammonia Total Creatine Kinase CK-MB (CK-2) CK-MB (CK-2) Rel Index Troponin I Procalcitonin [facility] Medical History (Updated 11/18/22 @ 10:16 by Kb Anaya MD) Acid reflux Alcohol abuse Ankle pain Ankylosing spondylitis (1985) Ankylosing spondylitis Chronic back pain Foot pain Fracture cervical vertebra-closed GERD (gastroesophageal reflux disease) Hypertension Hypertension Muscle pain Tobacco use disorder, moderate, in early remission Surgical History History of open reduction and internal fixation (ORIF) procedure (2005) History of tonsillectomy Status post colonoscopy (2012) Status post incision and drainage Family History Father No problems noted. Mother Cancer Other Alcoholism Colorectal cancer Social History Smoking Status: Current every day smoker Assessment & Plan Assessment & Plan narrative: 1. Acute hypoxic respiratory failure patient remains intubated/mechanically ventilated.? He is postoperative day 4?from trach and PEG tube placement.? Continue ventilator support.? He remains on Zosyn, presently day 05/04.? Chest Ct unremarkable yesterday. Sedation has been weaned in hopes pt will awaken and become more cooperative w/efforts at vent weaning. 2. Bilateral bacterial pneumonia [place] to be superinfection in the setting of influenza A.? Patient is back on Zosyn therapy as noted above, presently day 05/04 3. Acute metabolic encephalopathy Unclear etiology at this point.? He has been treated for infection, alcohol withdrawal.? He has persistent encephalopathy.? Certainly could be critical illness related.? Noncontrast head CT showed no acute abnormalities. CT chest/abdomen/pelvis was fairly unrevealing w/exception of moderate bilat pleural effusions, moderate ascites. Gallbladder is distended w/wall thickening and inflammatory change, possibly reflecting a primary gallbladder process vs. reactive changes related to liver disease. Ammonia level <9. 4. Essential hypertension On metoprolol on an outpatient basis which has been held since admission. 9. Protein calorie malnutrition Reglan added yesterday to improve bowel motility. Front End Mechanic recommends restarting tube feeds at 20-40 cc/hr and d/c'ing residual checks. 10. Normocytic anemia Hemoglobin was 10.8 on admission.? Hemoglobin 10.8 yesterday. 11. Thrombocytosis Overall improved down from the mid 600s to 533 yesterday. 12. Eosinophilia 7.9% eosinophils. No evidence of parasitic infection/DRESS syndrome. Suspect this could be lab error as he was reported to have 0.1% eosinophils 11/16 and has high as 10.8% on 11/13. Resolved issues: Influenza a Alcohol withdrawal Septic shock with end-organ failure Stable issues: Alcohol dependence Heroin dependence Code status Full Prophylaxis Lovenox Disposition ICU.? 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 Family meeting to occur tomorrow at 1500 w/ex-, dtr. Time Spent With Patient Critical Care time: I spent a total of [] minutes of critical care time on this patient's care today; this time is exclusive of procedural time. Quality VTE Deep Vein Thrombosis/Pulmonary Embolism Present on Admission: No
--- NOTE | 2022-11-19 11:15 | DIET.CONS ---
Dietary Consultation Note Admission Date: 10/30/2022 20:22 Assessment: 61y M s/p trach and PEG placement restarting TF after nursing noticed 300mL residuals. Ht: 170.18 cm Wt: 57.8 kg BMI: 23.0 Last BM: 11/17/22 (11/17/22 05:34) MNA: Inder Score: 10 Diet: 11/15/22 Dinner Tube Feeding Diet Diet Modifications: TF Supplement type: Glucerna 1.5 leroy TF mode of delivery: Continuous Starting flow rate mL/hr: 10 Flow rate goal mL/hr: 68 Titration Schedule to reach Goal Rate: per dietary Max total daily volume in mL: 130 Free fluid: 100 Free Water Frequency: Q4H Comment: run from 0500 till 2100 then none for next 8 hrs Labs: RBC 3.59 X10^6/uL (4.5-5.9) L 11/18/22 23:02 Hgb 10.8 g/dL (13.5-17.5) L 11/18/22 23:02 Hct 31.5 % (41-53) L 11/18/22 23:02 Creatinine 0.61 mg/dL (0.66-1.25) L 11/19/22 04:40 Hemoglobin A1c 5.8 % (4.0-6.0) 10/30/22 16:10 Lactate 0.7 mmol/L (0.7-2.1) 11/18/22 23:02 Ferritin 393 ng/mL (18-464) 11/04/22 04:30 NT-Pro-B Natriuret Pep 7160 pg/mL (<125) H 11/04/22 23:45 Nutrition Diagnosis: Interventions: EER: Monitoring/Evaluations: Electronically Signed by: Pati Parikh 11/19/22 11:15 Clinical Dietitian [address] [id number]
--- NOTE | 2022-11-19 11:31 | CM.DPC ---
DCP/continued: Reviewed chart. Patient remains on vent and it is unclear when he will get off. Provider requesting that daughter/Radha be present for care conference tomorrow 11-20 at 3:00pm. VARITYPIST placed call to Radha and she reports that she is unable to come in. However, she can do facetime. She requests VARITYPIST call her at [phone] at time of meeting. VARITYPIST called Radha via [email or web address] to confirm it worked okay. In addition, placed call to patient's x- Mercedes ph# [phone] left vm with family unable to reach Mercedes. Provider notified of above. Meeting scheduled tomorrow around 3:00pm via [email or web address]. P: Pending. Anticipate Goals of Care discussion. CAROL
[2022-11-19] MEDS: POTASSIUM CHLORIDE 20 MEQ/15 ML UDC 40 MEQ TUBE (17:09)
[2022-11-19] MEDS: NOREPINEPHRINE BITARTRATE/D5W 4 MG/250 ML PLAST..BAG 7.5 MG IV (18:56)
--- NOTE | 2022-11-19 22:13 | PM.ICURNDS ---
- Date Patient Seen: 11/19/22 Time Patient Seen: 22:02 :: This patient was seen via real time interactive two-way audiovisual telecommunication. Note: 61 y.o. male w/ chronic hypoxic respiratory failure/failure to wean; originally admitttd w/ influenza A and postulated superimposed bacterial pneumonia.? Cultures (-).? Completed a Zosyn course and is back on it due to an episode of increasing pressor requirements.? Also w/ EtOH withdrawal. RN report: No significant change NE @ 2 mcg/min No sedation INTERVENTIONS: 1) Discontinued PRN hydromorphone order 2) Increased Seroquel and oxycodone 3) Suggest CPAP trial in AM with 15-20 cm H20 PS as a start
[2022-11-19] MEDS: ACETAMINOPHEN SUSP 650 MG/20.3 ML UDC TUBE (23:24)
[2022-11-20] VITALS (95 sets, daily range): BP systolic 53–128; BP diastolic 32–86; PULSE 72–105; RESP 0–29; TEMP 36.6–37.1; O2SAT 78–100
--- NOTE | 2022-11-20 | DI.RAD.S_ITS ---
PROCEDURE: XR CHEST FOR PICC 1V INDICATIONS: PICC LINE PLACEMENT COMPARISON: [facility], CR, XR CHEST 1V, 11/18/2022, 22:45. FINDINGS: PICC was placed by the intravenous therapy team from the left side. Tip of PICC line is seen coiled within left axilla. IMPRESSION: Tip of PICC projects to the area of left axilla and should be removed and repositioned. Dictated by: Orlando Samano M.D. on 11/20/2022 at 12:45 Approved by: Orlando Samano M.D. on 11/20/2022 at 12:46
[2022-11-20] MEDS: OXYCODONE IR 5 MG TABLET 7.5 MG TUBE ×4 (00:31→13:04)
[2022-11-20 04:57] LABS: Add Manual Diff / Slide Review NO; Basophils Absolute Auto 200 /uL (0-100); Basophils Percent Auto 1.8 % (0-2); Eosinophils Absolute Auto 900 /uL (0-450); Eosinophils Percent Auto 11.3 % (2-4); Hematocrit 31.4 % (41-53); Hemoglobin 10.5 g/dL (13.5-17.5); Lymphocytes Absolute Auto 2100 /uL (1100-4500); Lymphocytes Percent Auto 24.9 % (25-40); Mean Corpuscular HGB Conc 33.5 % (30-36); Mean Corpuscular Hemoglobin 29.8 PG (26-34); Monocytes Absolute Auto 700 /uL (0-900); Monocytes Percent Auto 8.6 % (3-14); Neutrophils Absolute Auto 4400 /uL (1500-7000); Neutrophils Percent Auto 53.4 % (50-75); Platelet Count 532 X10^3/uL (150-400); Red Blood Cell Count 3.53 X10^6/uL (4.5-5.9); White Blood Cell Count 8.2 X10^3/uL (4.5-11.0)
[2022-11-20] MEDS: PIPERACILLIN/TAZO 3.375 GM in SODIUM CHLORIDE 0.9% 100 ML IV ×3 (05:08→20:41)
[2022-11-20 05:20] LABS: BUN Creatinine Ratio 21.9 (6-22); Blood Urea Nitrogen 14 mg/dL (9-20); Calcium 8.1 mg/dL (8.4-10.2); Carbon Dioxide 28 mmol/L (22-32); Chloride 108 mmol/L (98-107); Estimated Glomerular Filt Rate > 60 mL/min (>60); Glucose 99 mg/dL (80-110); HEMOLYSIS < 15 (0-50); Magnesium 2.2 mg/dL (1.6-2.3); Potassium 3.9 mmol/L (3.4-5.1); Sodium 141 mmol/L (137-145)
[2022-11-20] MEDS: METOCLOPRAMIDE 10 MG/2 ML INJ 5 MG IV ×3 (06:17→18:29)
--- NOTE | 2022-11-20 06:37 | PC.NURSE ---
[employer] Repairer Note-Patient remains on ventilator, FIO2 25%, TV 390, RR 16, PEEP 5, trach intact, thick clear/white sputum sx, lung sounds dim throughout, mostly abdominal breathing noted. Patient has been drowsy, is mostly calm when awake, and seems to be oriented to person and situation, spelled out practice writing on communication board. Levophed gtt 3mcg/min to keep MAP >65. SR/ST with intermittent bigeminal PVCs. Receiving scheduled oxycodone for pain and scheduled Seroquel for agitation. Tolerating TF via pegtube.
[2022-11-20] MEDS: NICOTINE 7 MG PATCH TOP (08:32)
[2022-11-20] MEDS: GABAPENTIN 300 MG CAPSULE TUBE ×3 (08:32→20:39)
[2022-11-20] MEDS: MULTIVITAMIN 1 TABLET 1 TAB PO (08:33)
[2022-11-20] MEDS: MIDODRINE HCL 5 MG TABLET 10 MG PO (08:33)
[2022-11-20] MEDS: ENOXAPARIN 40 MG/0.4 ML SYRINGE SUBCUT (08:33)
[2022-11-20] MEDS: FOLIC ACID 1 MG TABLET PO (08:34)
[2022-11-20] MEDS: QUETIAPINE 25 MG TABLET 150 MG PO (08:34)
[2022-11-20] MEDS: PANTOPRAZOLE 40 MG **PACKET PO (08:35)
--- NOTE | 2022-11-20 10:19 | PM.PN.EICU ---
Subjective Subjective IF CAMERA ACTIVATED, patient seen via real-time interactive audiovisual communication: Camera activated Consent obtained for tele-outside parts sales care: Yes Patient Location: ICU Provider location (State): [place] Other participants/roles: Dr. Robert Current Medications Current Medications Medications: Home Medications indomethacin 50 mg capsule 50 mg PO TIDP PRN pain, moderate #90 caps 10/13/18 [Rx Confirmed 11/13/22] amitriptyline 25 mg tablet 25 mg PO BEDTIME #30 tabs 01/07/19 [Rx Confirmed 11/13/22] cyclobenzaprine 10 mg tablet 10 mg PO TIDP #90 tabs 11/19/19 [Rx Confirmed 11/13/22] gabapentin 300 mg capsule (Neurontin) 300 mg PO Q8H #90 caps 11/19/19 [Rx Confirmed 11/13/22] metoprolol succinate 50 mg tablet,extended release 24 hr (Toprol XL) 50 mg PO BID #60 tabs 11/19/19 [Rx Confirmed 11/13/22] omeprazole 20 mg capsule,delayed release 20 mg PO QDAY #30 caps 11/19/19 [Rx Confirmed 11/13/22] Visit Medications (administered) Generic Name Dose Route Start Last Admin Trade Name Freq PRN Reason Stop Dose Admin Acetaminophen 650 mg 11/11/22 07:55 11/19/22 23:24 Acetaminophen Susp 650 Mg/20.3 Ml Udc TUBE 650 mg Q6H PRN Administration Fever/Mild Pain (1-3) Enoxaparin Sodium 40 mg 11/06/22 12:00 11/20/22 08:33 Enoxaparin 40 Mg/0.4 Ml Syringe SUBCUT 40 mg DAILY JYOTI Administration Folic Acid 1 mg 10/31/22 09:00 11/20/22 08:34 Folic Acid 1 Mg Tablet PO 1 mg DAILY JYOTI Administration Gabapentin 300 mg 11/06/22 09:45 11/20/22 08:32 Gabapentin 300 Mg Capsule TUBE 300 mg TID JYOTI Administration Sodium Chloride 500 mls @ 1,000 mls/hr 10/31/22 14:03 11/14/22 08:00 Normal Saline 0.9% IV Infused BOLUS PRN Infusion Fluid replacement Piperacillin Sod/Tazobactam 100 mls @ 25 mls/hr 11/13/22 13:15 11/20/22 05:08 Sod 3.375 gm/ Sodium Chloride IV 11/23/22 09:14 25 mls/hr Q8H JYOTI Administration Fentanyl 1,000 mcg/ Dextrose 250 mls @ 9.8 mls/hr 11/14/22 12:15 11/18/22 22:30 IV 0 mcg/kg/hr TITRATE JYOTI 0 mls/hr Titration Protocol 0.7 MCG/KG/HR Propofol 1,000 mg in 100 mls @ 1.677 mls/hr 11/16/22 11:15 11/18/22 23:18 Propofol IV 0 mcg/kg/min TITRATE JYOTI 0 mls/hr Titration Protocol 5 MCG/KG/MIN Vasopressin 40 unit/ Sodium 102 mls @ 4.5 mls/hr 11/16/22 11:15 11/18/22 09:01 Chloride IV 0 mls/hr CONT JYOTI Infusion NOREPINEPHRINE BITARTRATE/D5W 4 mg in 250 mls @ 30 mls/hr 11/18/22 23:22 11/20/22 02:33 Levophed IV 3 mcg/min TITRATE JYOTI 11.25 mls/hr Titration Protocol 8 MCG/MIN Metoclopramide HCl 5 mg 11/18/22 18:00 11/20/22 06:17 Metoclopramide 10 Mg/2 Ml Inj IV 5 mg Q6HR JYOTI Administration Midodrine 10 mg 11/17/22 10:00 11/20/22 08:33 Midodrine Hcl 5 Mg Tablet PO 10 mg TID JYOTI Administration Multivitamins 1 tab 10/31/22 09:00 11/20/22 08:33 Multivitamin 1 Tablet PO 1 tab DAILY JYOTI Administration Nicotine 7 mg 10/31/22 09:00 11/20/22 08:32 Nicotine 7 Mg Patch TOP 7 mg DAILY JYOTI Administration Ondansetron HCl 4 mg 10/31/22 01:07 11/12/22 23:15 Ondansetron 4 Mg/2 Ml Inj IV 4 mg Q4HR PRN Administration Nausea And Vomiting Oxycodone HCl 7.5 mg 11/20/22 01:00 11/20/22 08:33 Oxycodone Ir 5 Mg Tablet TUBE 7.5 mg Q4HR JYOTI Administration Pantoprazole Sodium 40 mg 11/13/22 09:00 11/20/22 08:35 Pantoprazole 40 Mg Packet PO 40 mg DAILY JYOTI Administration Quetiapine Fumarate 150 mg 11/20/22 09:00 11/20/22 08:34 Quetiapine 25 Mg Tablet PO 150 mg BID JYOTI Administration Objective Ventilator Parameters: Ventilator Settings FiO2 25 CPAP Pressure Amount 5 RT Vent Frequency 16 Ventilator Tidal Volume 390 Exhaled Vt/kg IBW 7 Positive End Expiratory 5 Pressure Ventilator Pressure Support 2 Inspiratory Phase Time 0.8 I:E Ratio 1:2 Patient Position HOB >= 30 degrees Labs Result Diagrams: 11/21/22 05:00 11/21/22 05:00 Labs: Laboratory Results - last 24 hr 11/20/22 11/20/22 04:45 04:45 WBC 8.2 RBC 3.53 L Hgb 10.5 L Hct 31.4 L MCV 89.0 MCH 29.8 MCHC 33.5 RDW 17.0 H Plt Count 532 H Neut % (Auto) 53.4 Lymph % (Auto) 24.9 L [place] % (Auto) 8.6 Eos % (Auto) 11.3 H Baso % (Auto) 1.8 Neut # (Auto) 4400 Lymph # (Auto) 2100 [place] # (Auto) 700 Eos # (Auto) 900 H Baso # (Auto) 200 H Sodium 141 Potassium 3.9 Chloride 108 H Carbon Dioxide 28 BUN 14 Creatinine 0.64 L Estimated GFR > 60 BUN/Creatinine Ratio 21.9 Glucose 99 Calcium 8.1 L Phosphorus 3.0 Magnesium 2.2 Exam Vital Signs (past 8 hours): - 11/20/22 04:00 11/20/22 02:30 11/20/22 02:30 Temperature Pulse Rate 85 Respiratory Rate 18 Blood Pressure 83/50 L Pulse Oximetry 98 Oxygen Delivery Method Trach Collar Mechanical Ventilation 11/20/22 02:45 11/20/22 02:45 11/20/22 03:00 Temperature Pulse Rate 88 Respiratory Rate 20 Blood Pressure 97/56 L 92/53 L Pulse Oximetry 98 Oxygen Delivery Method 11/20/22 03:00 11/20/22 03:15 11/20/22 03:15 Temperature Pulse Rate 87 86 Respiratory Rate 18 16 Blood Pressure 91/54 L Pulse Oximetry 97 98 Oxygen Delivery Method 11/20/22 03:30 11/20/22 03:30 11/20/22 03:45 Temperature Pulse Rate 87 Respiratory Rate 19 Blood Pressure 93/60 103/66 Pulse Oximetry 98 Oxygen Delivery Method 11/20/22 03:45 11/20/22 04:00 11/20/22 04:00 Temperature 97.9 F Pulse Rate 87 87 Respiratory Rate 19 29 H Blood Pressure 102/57 L Pulse Oximetry 99 99 Oxygen Delivery Method 11/20/22 04:15 11/20/22 04:15 11/20/22 04:30 Temperature Pulse Rate 90 Respiratory Rate 16 Blood Pressure 100/56 L 106/58 L Pulse Oximetry 99 Oxygen Delivery Method 11/20/22 04:30 11/20/22 04:45 11/20/22 04:45 Temperature Pulse Rate 86 85 Respiratory Rate 16 11 L Blood Pressure 111/64 Pulse Oximetry 98 99 Oxygen Delivery Method 11/20/22 05:00 11/20/22 05:00 11/20/22 05:15 Temperature Pulse Rate 89 Respiratory Rate 16 Blood Pressure 119/58 L 108/59 L Pulse Oximetry 99 Oxygen Delivery Method 11/20/22 05:15 11/20/22 05:17 11/20/22 05:33 Temperature Pulse Rate 90 90 Respiratory Rate 20 21 Blood Pressure 99/61 Pulse Oximetry 99 99 Oxygen Delivery Method 11/20/22 05:33 11/20/22 05:45 11/20/22 05:45 Temperature Pulse Rate 81 85 Respiratory Rate 20 22 Blood Pressure 107/73 Pulse Oximetry 100 97 Oxygen Delivery Method 11/20/22 06:00 11/20/22 06:00 11/20/22 06:15 Temperature Pulse Rate 90 Respiratory Rate 18 Blood Pressure 112/86 100/62 Pulse Oximetry 96 Oxygen Delivery Method 11/20/22 06:15 11/20/22 06:30 11/20/22 06:30 Temperature Pulse Rate 88 85 Respiratory Rate 16 16 Blood Pressure 105/61 Pulse Oximetry 100 98 Oxygen Delivery Method 11/20/22 06:45 11/20/22 06:45 11/20/22 07:00 Temperature Pulse Rate 83 86 Respiratory Rate 18 16 Blood Pressure 101/68 Pulse Oximetry 99 97 Oxygen Delivery Method 11/20/22 07:00 11/20/22 07:13 11/20/22 08:00 Temperature 97.8 F Pulse Rate 88 Respiratory Rate 17 Blood Pressure 103/67 96/54 L Pulse Oximetry 98 Oxygen Delivery Method 11/20/22 08:00 Temperature Pulse Rate 95 H Respiratory Rate 20 Blood Pressure Pulse Oximetry 100 Oxygen Delivery Method Fraction of Inspired Oxygen 0.30 Oxygen Delivery Method Trach Collar,Mechanical Ventilation Oxygen Flow Rate 3 Quality TeleICU VTE Deep Vein Thrombosis/Pulmonary Embolism Present on Admission: No Assessment & Plan Assessment and plan (1) Chronic respiratory failure with hypoxia: Status: Acute (2) Tracheostomy in place: Status: Acute Plan: -See above (3) Delirium due to multiple etiologies: Status: Acute Plan: -See above Assessment & Plan narrative: patient seen with bedside nurse and provider Dr. Panchal, discussed plan at length chart/labs/imaging reviewed no acutevents overnight noted 61 year old male admitted to icu with chronic resp failure s/p trach/peg ams etoh withdrawal shock, multifactorial, currently afebrile, sbp still requiring levophed minimal vent settings sedated suggest -neurochecks/seizure precautions -avoid over sedation, off drips at this time -Seroquel increased to 150mg, check qtc -pain control w/oxycodone -Reorientation measures -wean vent to trach collar todya, tolerated cpap at this time -hold futher ivf bolus for now -finish abx coure -increased midodrine to 20mg tid, watch HR, if bradycardia dc midodrine -feeds as tolerated -monitor ins/outs -replace lytes pr -gi/dvt ppx -please call eICU if condition changes total ccm time 65 mins Time Spent With Patient Time with patient: less than 30 minutes Critical Care time: I spent a total of [] minutes of critical care time on this patient's care today; this time is exclusive of procedural time.
--- NOTE | 2022-11-20 14:41 | PC.NURSE ---
Day shift note: Pt vented settings FiO2 25%, TV 390, RR 16, PEEP 5, trach in place, thick clear/white sputum, lungs dim throughout, abdominal breathing noted. Patient is calm and appropriate when awake, oriented to person and situation, spelled out practice writing on communication board for shift production supervisor. Levophed gtt 2mcg/min to keep MAP >65. SR/ST with intermittent bigeminal PVCs. Attempt at PICC line placement failed, mid line placed instead, will remove Central line when able to titrate off pressers. Receiving scheduled oxycodone for pain and scheduled Seroquel for agitation. Tolerating tube feed with little residuals via pegtube. Restraints have been d/c'd, pt knows not to pull at vent tubing. Bed low and locked, alarm on for safety, call light within reach, will continue to monitor.
[2022-11-20] MEDS: MIDODRINE HCL 5 MG TABLET 20 MG PO ×2 (15:30→20:40)
--- NOTE | 2022-11-20 15:35 | CM.DPC ---
DCP/continued: Patient currently with PEG and trach. Patient has been unsuccessful at weaning off the vent. Patient does appear alert but not oriented. SUPERVISOR MULTIFOCAL LENS, Dr. Partida, daughter/Radha and significant other/Mercedes met in room to discuss next steps. At this time family is not prepared to stop treatment. Patient alert when they were in there and mumbled and made attempt to write something down. Dr. Partida notified family that he is not too sure how much patient will change from where he is at now. SUPERVISOR [employer]OC[employer] spoke a bit about long-term care and where that would take place. Right now family wishes to proceed with vent and place patient in long-term acute facility ([place]). Family aware of the obstacles that we have faced because patient only has Medicaid. Form for change completed and faxed last week. Form now has been scanned in chart. SUPERVISOR M[employer] asked Admit counselors if they could assist with obtaining insurance change with form. Daughter in agreement to answer any questions and help as much as possible. Radha asked that we only use [phone]. CM team may want to call [facility] ([facility]) tomorrow to find out what/if there is anything they can do to facilitate insurance change ph# [phone]. May need to speak with construction administrator at [facility] because SUPERVISOR [employer] not sure whom would be the contact? P: Currently full code on vent with trach and PEG. CM team inquiring about getting patient on Medicaid plan so that he can go to long-term acute facility. VARGAS Woods
--- NOTE | 2022-11-20 15:43 | PC.NURSE ---
This PICC nurse unable to place picc line on lt arm. Line would curl back on its self in the upper arm , multiple attempts to pass the line past the upper arm failed. DR and pts rn aware. Midline placed upper rt arm.
--- NOTE | 2022-11-20 16:14 | P.PN_ITS ---
Subjective Subjective Date Patient Seen: 11/20/22 Time Patient Seen: 08:00 Interval history: He is more awake and alert this morning than I have seen him on other days. He is trying to communicate but this is difficult, and he is quite weak when trying to write. He remains on low dose levophed and remains on the vent. Exam Vital Signs (past 8 hours): - 11/20/22 09:00 11/20/22 09:00 11/20/22 09:02 Temperature Pulse Rate 105 H Respiratory Rate 21 Blood Pressure 93/61 94/55 L Pulse Oximetry 97 Oxygen Delivery Method 11/20/22 09:02 11/20/22 09:10 11/20/22 10:00 Temperature Pulse Rate 104 H 103 H Respiratory Rate 21 16 Blood Pressure 92/58 L Pulse Oximetry 96 96 Oxygen Delivery Method 11/20/22 10:00 11/20/22 10:10 11/20/22 11:00 Temperature Pulse Rate 90 90 Respiratory Rate 22 20 Blood Pressure 91/60 Pulse Oximetry 96 98 Oxygen Delivery Method 11/20/22 11:00 11/20/22 11:10 11/20/22 12:00 Temperature Pulse Rate 90 91 H Respiratory Rate 22 21 Blood Pressure 95/76 Pulse Oximetry 99 98 Oxygen Delivery Method 11/20/22 12:00 11/20/22 12:10 11/20/22 12:15 Temperature Pulse Rate 90 90 Respiratory Rate 24 27 H Blood Pressure 99/63 Pulse Oximetry 97 97 Oxygen Delivery Method 11/20/22 12:15 11/20/22 12:20 11/20/22 12:30 Temperature Pulse Rate 89 88 Respiratory Rate 21 25 H Blood Pressure 110/62 Pulse Oximetry 98 100 Oxygen Delivery Method 11/20/22 12:30 11/20/22 12:40 11/20/22 12:44 Temperature Pulse Rate 92 H 88 91 H Respiratory Rate 24 16 17 Blood Pressure Pulse Oximetry 100 100 Oxygen Delivery Method 11/20/22 12:45 11/20/22 12:00 11/20/22 13:00 Temperature 97.8 F Pulse Rate Respiratory Rate Blood Pressure 109/67 94/53 L Pulse Oximetry Oxygen Delivery Method Trach Collar Mechanical Ventilation 11/20/22 13:00 11/20/22 13:10 11/20/22 14:00 Temperature Pulse Rate 87 87 Respiratory Rate 27 H 24 Blood Pressure 103/71 Pulse Oximetry 94 78 L Oxygen Delivery Method 11/20/22 14:00 11/20/22 14:10 11/20/22 15:31 Temperature Pulse Rate 87 88 Respiratory Rate 24 13 Blood Pressure Pulse Oximetry 98 97 97 Oxygen Delivery Method Fraction of Inspired Oxygen 0.30 Oxygen Delivery Method Trach Collar,Mechanical Ventilation Oxygen Flow Rate 3 Narrative Exam Narrative: GEN:? chronically ill appearing PULM: breath sounds diminished at bases NECK: trach in place c/d/i CV: regular rate and rhythm, no murmurs ABD: Soft, nontender, PEG in place c/d/i NEURO:?alert, follows commands, attempting to communicate, no focal deficits noted Objective Labs Result Diagrams: 11/20/22 04:45 11/20/22 04:45 Labs: Laboratory Results - last 24 hr 11/20/22 11/20/22 04:45 04:45 WBC 8.2 RBC 3.53 L Hgb 10.5 L Hct 31.4 L MCV 89.0 MCH 29.8 MCHC 33.5 RDW 17.0 H Plt Count 532 H Neut % (Auto) 53.4 Lymph % (Auto) 24.9 L [place] % (Auto) 8.6 Eos % (Auto) 11.3 H Baso % (Auto) 1.8 Neut # (Auto) 4400 Lymph # (Auto) 2100 [place] # (Auto) 700 Eos # (Auto) 900 H Baso # (Auto) 200 H Sodium 141 Potassium 3.9 Chloride 108 H Carbon Dioxide 28 BUN 14 Creatinine 0.64 L Estimated GFR > 60 BUN/Creatinine Ratio 21.9 Glucose 99 Calcium 8.1 L Phosphorus 3.0 Magnesium 2.2 PFSH Medical History (Updated 11/18/22 @ 10:16 by Kb Anaya MD) Acid reflux Alcohol abuse Ankle pain Ankylosing spondylitis (1985) Ankylosing spondylitis Chronic back pain Foot pain Fracture cervical vertebra-closed GERD (gastroesophageal reflux disease) Hypertension Hypertension Muscle pain Tobacco use disorder, moderate, in early remission Surgical History History of open reduction and internal fixation (ORIF) procedure (2005) History of tonsillectomy Status post colonoscopy (2012) Status post incision and drainage Family History Father No problems noted. Mother Cancer Other Alcoholism Colorectal cancer Social History Smoking Status: Current every day smoker Assessment & Plan Assessment & Plan narrative: 1. Acute hypoxic respiratory failure patient remains trached and on the vent. He is much more alert today. He is in the process of trialing a breathing trial and is having some success. Goal is to wean to trach collar? POD #5 from trach and PEG tube placement on 11/16 On zosyn with plan from original attending of 10 day course through 11/23 He has evidence of pleural effusions, possibly from low albumin and/or pneumonia and would like to try gentle diuresis but his pressures do not allow for this as he is on levophed 2. Bilateral bacterial pneumonia [place] to be superinfection in the setting of influenza A.? Patient is back on Zosyn therapy as noted above 3. Shock Etiology not clear to me. He may be overly sedated at times or have a component of sepsis but I think this is less likely as he does not have infectious symptoms. Perhaps low blood pressure in response to high sedation will gently decrease seroquel. Wean levophed as able. 3. Acute metabolic encephalopathy, improving He has been treated for infection, alcohol withdrawal.? He has persistent encephalopathy.? Suspect related to critical illness. Noncontrast head CT showed no acute abnormalities. CT chest/abdomen/pelvis was fairly unrevealing w/exception of moderate bilat pleural effusions, moderate ascites. Ammonia level <9. Wean down seroquel as able, today to 100mg BID from 150mg BID. 4. Essential hypertension On metoprolol on an outpatient basis which has been held since admission. 9. Protein calorie malnutrition Reglan added yesterday to improve bowel motility. Occasional Caregiver recommends restarting tube feeds at 20-40 cc/hr and d/c'ing residual checks. Suspect edema is related to albumin and poor nutritional status Resolved issues: Influenza a Alcohol withdrawal Stable issues: Alcohol dependence Heroin dependence Dispo: Discussed with family ex-, Mercedes and daughter Radha. Radha does not feel she knows her father's wishes well, she is happy to have Mercedes present as she feels Mercedes knows her father due to spending much more time with him. Updated family on how he is doing. His slow progress and continued need for pressor and ventilatory support and the significant possibility that his current functional status and needs are possibly his new baseline. Time Spent With Patient Critical Care time: I spent a total of [] minutes of critical care time on this patient's care today; this time is exclusive of procedural time. Quality VTE Deep Vein Thrombosis/Pulmonary Embolism Present on Admission: No
[2022-11-20] MEDS: OXYCODONE IR 5 MG TABLET 10 MG TUBE ×2 (16:31→20:40)
--- NOTE | 2022-11-20 19:45 | PM.ICURNDS ---
- Date Patient Seen: 11/20/22 Time Patient Seen: 19:45 :: This patient was seen via real time interactive two-way audiovisual telecommunication. Note: Patient is off all sedation and vasopressor. On seroquel. Cont PT/OT and daily chronic vent wean. D/w RN.
[2022-11-20] MEDS: QUETIAPINE 100 MG TABLET 150 MG TUBE (20:39)
--- NOTE | 2022-11-20 23:56 | PC.NURSE ---
2230- Patient BP drops after 9pm medications. Levophed restarted for support. Will monitor.
[2022-11-21] VITALS (66 sets, daily range): BP systolic 83–133; BP diastolic 50–84; PULSE 75–117; RESP 0–39; TEMP 36.4–37.1; O2SAT 82–100
[2022-11-21] MEDS: OXYCODONE IR 5 MG TABLET 10 MG TUBE ×2 (02:15→18:17)
[2022-11-21] MEDS: PIPERACILLIN/TAZO 3.375 GM in SODIUM CHLORIDE 0.9% 100 ML IV ×3 (04:49→21:40)
[2022-11-21] MEDS: METOCLOPRAMIDE 10 MG/2 ML INJ 5 MG IV ×3 (05:09→16:51)
[2022-11-21 05:16] LABS: Hematocrit 28.5 % (41-53); Hemoglobin 9.6 g/dL (13.5-17.5); Mean Corpuscular HGB Conc 33.7 % (30-36); Mean Corpuscular Hemoglobin 29.6 PG (26-34); Mean Corpuscular Volume 87.8 fL (80-100); Platelet Count 443 X10^3/uL (150-400); Red Blood Cell Count 3.25 X10^6/uL (4.5-5.9); Red Cell Distribution Width 17.2 % (11.6-14.8); White Blood Cell Count 7.4 X10^3/uL (4.5-11.0)
[2022-11-21 05:52] LABS: Alanine Aminotransferase 19 IU/L (<50); Albumin 2.6 g/dL (3.5-5.0); Albumin Globulin Ratio 0.8 (1.0-2.8); Alkaline Phosphatase 85 U/L (38-126); Aspartate Aminotransferase 19 IU/L (17-59); Bilirubin Total 0.5 mg/dL (0.2-1.3); Blood Urea Nitrogen 13 mg/dL (9-20); Calcium 8.4 mg/dL (8.4-10.2); Carbon Dioxide 26 mmol/L (22-32); Chloride 107 mmol/L (98-107); Estimated Glomerular Filt Rate > 60 mL/min (>60); Globulin 3.3 g/dL (1.7-4.1); Glucose 78 mg/dL (80-110); HEMOLYSIS < 15 (0-50); Potassium 3.6 mmol/L (3.4-5.1); Sodium 138 mmol/L (137-145); Total Protein 5.9 g/dL (6.3-8.2)
[2022-11-21] MEDS: PANTOPRAZOLE 40 MG **PACKET PO (09:11)
[2022-11-21] MEDS: QUETIAPINE 100 MG TABLET 150 MG TUBE ×2 (09:11→20:34)
[2022-11-21] MEDS: ENOXAPARIN 40 MG/0.4 ML SYRINGE SUBCUT (09:11)
[2022-11-21] MEDS: FOLIC ACID 1 MG TABLET PO (09:11)
[2022-11-21] MEDS: MIDODRINE HCL 5 MG TABLET 20 MG PO ×2 (09:11→20:33)
[2022-11-21] MEDS: MULTIVITAMIN 1 TABLET 1 TAB PO (09:12)
--- NOTE | 2022-11-21 10:22 | P.TELICUPN_ITS ---
Subjective Subjective IF CAMERA ACTIVATED, patient seen via real-time interactive audiovisual communication: Camera activated Consent obtained for tele-clinical data associate care: Yes Patient Location: ICU Provider location (State): [place] Other participants/roles: Dr. Panchal, bedside nursing, RT Current Medications Current Medications Medications: Home Medications indomethacin 50 mg capsule 50 mg PO TIDP PRN pain, moderate #90 caps 10/13/18 [Rx Confirmed 11/13/22] amitriptyline 25 mg tablet 25 mg PO BEDTIME #30 tabs 01/07/19 [Rx Confirmed 11/13/22] cyclobenzaprine 10 mg tablet 10 mg PO TIDP #90 tabs 11/19/19 [Rx Confirmed 11/13/22] gabapentin 300 mg capsule (Neurontin) 300 mg PO Q8H #90 caps 11/19/19 [Rx Confirmed 11/13/22] metoprolol succinate 50 mg tablet,extended release 24 hr (Toprol XL) 50 mg PO BID #60 tabs 11/19/19 [Rx Confirmed 11/13/22] omeprazole 20 mg capsule,delayed release 20 mg PO QDAY #30 caps 11/19/19 [Rx Confirmed 11/13/22] Visit Medications (administered) Generic Name Dose Route Start Last Admin Trade Name Freq PRN Reason Stop Dose Admin Acetaminophen 650 mg 11/11/22 07:55 11/19/22 23:24 Acetaminophen Susp 650 Mg/20.3 Ml Udc TUBE 650 mg Q6H PRN Administration Fever/Mild Pain (1-3) Enoxaparin Sodium 40 mg 11/06/22 12:00 11/21/22 09:11 Enoxaparin 40 Mg/0.4 Ml Syringe SUBCUT 40 mg DAILY JYOTI Administration Folic Acid 1 mg 10/31/22 09:00 11/21/22 09:11 Folic Acid 1 Mg Tablet PO 1 mg DAILY JYOTI Administration Gabapentin 300 mg 11/06/22 09:45 11/20/22 20:39 Gabapentin 300 Mg Capsule TUBE 300 mg TID JYOTI Administration Sodium Chloride 500 mls @ 1,000 mls/hr 10/31/22 14:03 11/14/22 08:00 Normal Saline 0.9% IV Infused BOLUS PRN Infusion Fluid replacement Piperacillin Sod/Tazobactam 100 mls @ 25 mls/hr 11/13/22 13:15 11/21/22 04:49 Sod 3.375 gm/ Sodium Chloride IV 11/23/22 09:14 25 mls/hr Q8H JYOTI Administration Fentanyl 1,000 mcg/ Dextrose 250 mls @ 9.8 mls/hr 11/14/22 12:15 11/18/22 22:30 IV 0 mcg/kg/hr TITRATE JYOTI 0 mls/hr Titration Protocol 0.7 MCG/KG/HR Propofol 1,000 mg in 100 mls @ 1.677 mls/hr 11/16/22 11:15 11/18/22 23:18 Propofol IV 0 mcg/kg/min TITRATE JYOTI 0 mls/hr Titration Protocol 5 MCG/KG/MIN Vasopressin 40 unit/ Sodium 102 mls @ 4.5 mls/hr 11/16/22 11:15 11/18/22 09:01 Chloride IV 0 mls/hr CONT JYOTI Infusion NOREPINEPHRINE BITARTRATE/D5W 4 mg in 250 mls @ 30 mls/hr 11/18/22 23:22 11/21/22 05:00 Levophed IV Infused TITRATE JYOTI Titration Protocol 8 MCG/MIN Metoclopramide HCl 5 mg 11/18/22 18:00 11/21/22 05:09 Metoclopramide 10 Mg/2 Ml Inj IV 5 mg Q6HR JYOTI Administration Midodrine 20 mg 11/20/22 15:00 11/21/22 09:11 Midodrine Hcl 5 Mg Tablet PO 20 mg TID JYOTI Administration Multivitamins 1 tab 10/31/22 09:00 11/21/22 09:12 Multivitamin 1 Tablet PO 1 tab DAILY JYOTI Administration Nicotine 7 mg 10/31/22 09:00 11/20/22 08:32 Nicotine 7 Mg Patch TOP 7 mg DAILY JYOTI Administration Ondansetron HCl 4 mg 10/31/22 01:07 11/12/22 23:15 Ondansetron 4 Mg/2 Ml Inj IV 4 mg Q4HR PRN Administration Nausea And Vomiting Pantoprazole Sodium 40 mg 11/13/22 09:00 11/21/22 09:11 Pantoprazole 40 Mg Packet PO 40 mg DAILY JYOTI Administration Quetiapine Fumarate 150 mg 11/20/22 21:00 11/21/22 09:11 Quetiapine 100 Mg Tablet TUBE 150 mg BID JYOTI Administration Objective Ventilator Parameters: Ventilator Settings FiO2 25 CPAP Pressure Amount 5 RT Vent Frequency 16 Ventilator Tidal Volume 390 Exhaled Vt/kg IBW 7 Positive End Expiratory 5 Pressure Ventilator Pressure Support 2 Inspiratory Phase Time 0.80 I:E Ratio 1:1.2 Patient Position HOB >= 30 degrees Labs Result Diagrams: 11/21/22 05:00 11/21/22 05:00 Labs: Laboratory Results - last 24 hr 11/21/22 11/21/22 05:00 05:00 WBC 7.4 RBC 3.25 L Hgb 9.6 L Hct 28.5 L MCV 87.8 MCH 29.6 MCHC 33.7 RDW 17.2 H Plt Count 443 H Sodium 138 Potassium 3.6 Chloride 107 Carbon Dioxide 26 BUN 13 Creatinine 0.62 L Estimated GFR > 60 BUN/Creatinine Ratio 21.0 Glucose 78 L Calcium 8.4 Total Bilirubin 0.5 AST 19 ALT 19 Alkaline Phosphatase 85 Total Protein 5.9 L Albumin 2.6 L Globulin 3.3 Albumin/Globulin Ratio 0.8 L Exam Vital Signs (past 8 hours): - 11/21/22 02:30 11/21/22 02:30 11/21/22 03:00 Temperature Pulse Rate 83 Respiratory Rate 11 L Blood Pressure 83/53 L 96/63 Pulse Oximetry 100 Oxygen Delivery Method 11/21/22 03:00 11/21/22 03:30 11/21/22 03:30 Temperature Pulse Rate 75 75 Respiratory Rate 6 L 0 L Blood Pressure 97/61 Pulse Oximetry 100 100 Oxygen Delivery Method 11/21/22 04:00 11/21/22 04:00 11/21/22 04:22 Temperature 98.7 F Pulse Rate 79 78 Respiratory Rate 14 15 Blood Pressure 95/60 Pulse Oximetry 100 100 Oxygen Delivery Method 11/21/22 04:00 11/21/22 04:30 11/21/22 04:30 Temperature Pulse Rate 76 Respiratory Rate 16 Blood Pressure 92/59 L Pulse Oximetry 99 Oxygen Delivery Method Trach Collar Mechanical Ventilation 11/21/22 05:00 11/21/22 05:00 11/21/22 05:30 Temperature Pulse Rate 75 Respiratory Rate 12 Blood Pressure 87/54 L 96/66 Pulse Oximetry 100 Oxygen Delivery Method 11/21/22 05:30 11/21/22 06:00 11/21/22 06:00 Temperature Pulse Rate 81 76 Respiratory Rate 9 L 15 Blood Pressure 97/61 Pulse Oximetry 99 99 Oxygen Delivery Method 11/21/22 06:30 11/21/22 06:30 11/21/22 07:00 Temperature Pulse Rate 75 Respiratory Rate 10 L Blood Pressure 95/63 104/65 Pulse Oximetry 96 Oxygen Delivery Method 11/21/22 07:00 11/21/22 08:00 11/21/22 08:00 Temperature Pulse Rate 78 80 Respiratory Rate 16 17 Blood Pressure 105/69 Pulse Oximetry 97 97 Oxygen Delivery Method 11/21/22 08:10 11/21/22 09:00 11/21/22 09:00 Temperature 97.6 F Pulse Rate 82 81 Respiratory Rate 12 12 Blood Pressure 97/62 Pulse Oximetry 98 96 Oxygen Delivery Method 11/21/22 09:10 11/21/22 10:00 11/21/22 10:00 Temperature Pulse Rate 81 98 H Respiratory Rate 9 L 23 Blood Pressure 116/66 Pulse Oximetry 98 87 L Oxygen Delivery Method 11/21/22 10:10 Temperature Pulse Rate 98 H Respiratory Rate 24 Blood Pressure Pulse Oximetry 98 Oxygen Delivery Method Fraction of Inspired Oxygen 0.30 Oxygen Delivery Method Trach Collar,Mechanical Ventilation Oxygen Flow Rate 3 Quality TeleICU VTE Deep Vein Thrombosis/Pulmonary Embolism Present on Admission: No Assessment & Plan Assessment and plan (1) Chronic respiratory failure with hypoxia: Status: Acute (2) Tracheostomy in place: Status: Acute Plan: -See above (3) Delirium due to multiple etiologies: Status: Acute Plan: -See above Assessment & Plan narrative: patient seen with bedside nurse and provider Dr. Panchal chart/labs/imaging reviewed no acut events overnight noted 61 year old male admitted to icu with chronic resp failure s/p trach/peg ams etoh withdrawal shock, multifactorial, resolved currently afebrile, sbp off pressors minimal vent settings tolerated cpap trials suggest -neurochecks/seizure precautions -off sedation -continue seroquel 150mg q12 -pain control w/oxycodone -Reorientation measures -daily cpap trials, wean to trach collar/tPIece -continue midodrine to 20mg tid, hold if bradycardia -feeds as tolerated -monitor ins/outs -replace lytes pr -gi/dvt ppx -please call eICU if condition changes total ccm time 45 mins Time Spent With Patient Time with patient: less than 30 minutes Critical Care time: I spent a total of [] minutes of critical care time on this patient's care today; this time is exclusive of procedural time.
--- NOTE | 2022-11-21 14:11 | P.PN_ITS ---
Subjective Subjective Interval history: 61-year-old gentleman with hypertension, ankylosing spondylitis, heroin use, and alcohol dependence who was admitted with influenza a, bacterial pneumonia, acute hypoxic respiratory failure, and alcohol and heroin withdrawal symptoms.? He failed extubation on November 04 and required intubation.? He has remained on mechanical ventilation since that time.? He is now status post trach and PEG tube placement on November 15. He is presently hospital day number 22. He is off of sedation and pressors. Patient does attempt to communicate but has difficulty doing so. We did try to use a paper for him to write on but his writing was difficult to interpret. He does admit to having pain in his neck and head. M otherwise unable to ascertain what he is communicating. Exam Vital Signs (past 8 hours): - 11/21/22 06:30 11/21/22 06:30 11/21/22 07:00 Temperature Pulse Rate 75 Respiratory Rate 10 L Blood Pressure 95/63 104/65 Pulse Oximetry 96 Oxygen Delivery Method 11/21/22 07:00 11/21/22 08:00 11/21/22 08:00 Temperature Pulse Rate 78 80 Respiratory Rate 16 17 Blood Pressure 105/69 Pulse Oximetry 97 97 Oxygen Delivery Method 11/21/22 08:10 11/21/22 09:00 11/21/22 09:00 Temperature 97.6 F Pulse Rate 82 81 Respiratory Rate 12 12 Blood Pressure 97/62 Pulse Oximetry 98 96 Oxygen Delivery Method 11/21/22 09:10 11/21/22 10:00 11/21/22 10:00 Temperature Pulse Rate 81 98 H Respiratory Rate 9 L 23 Blood Pressure 116/66 Pulse Oximetry 98 87 L Oxygen Delivery Method 11/21/22 10:10 11/21/22 08:00 11/21/22 11:00 Temperature Pulse Rate 98 H Respiratory Rate 24 Blood Pressure 100/57 L Pulse Oximetry 98 Oxygen Delivery Method Trach Collar Mechanical Ventilation 11/21/22 11:00 11/21/22 11:10 11/21/22 11:20 Temperature Pulse Rate 106 H 117 H 114 H Respiratory Rate 20 29 H 27 H Blood Pressure Pulse Oximetry 95 93 94 Oxygen Delivery Method 11/21/22 11:30 11/21/22 11:30 11/21/22 11:40 Temperature Pulse Rate 115 H 111 H Respiratory Rate 25 H 28 H Blood Pressure 107/74 Pulse Oximetry 82 L 93 Oxygen Delivery Method 11/21/22 12:00 11/21/22 12:01 11/21/22 12:01 Temperature Pulse Rate 113 H 115 H Respiratory Rate 25 H 21 Blood Pressure 116/76 Pulse Oximetry 96 95 Oxygen Delivery Method 11/21/22 12:10 11/21/22 13:00 11/21/22 13:00 Temperature 98.8 F Pulse Rate 112 H 104 H Respiratory Rate 25 H 22 Blood Pressure 121/77 Pulse Oximetry 98 99 Oxygen Delivery Method 11/21/22 13:10 Temperature Pulse Rate 103 H Respiratory Rate 27 H Blood Pressure Pulse Oximetry 96 Oxygen Delivery Method Fraction of Inspired Oxygen 0.30 Oxygen Delivery Method Trach Collar,Mechanical Ventilation Oxygen Flow Rate 3 Narrative Exam Narrative: GEN:? Middle-aged male, alert and awake, attempting to communicate, chronically ill-appearing HEENT:NC, Face symmetric, trach in place without significant drainage noted CHEST: Respiratory excursions symmetric, coarse throughout the anterior lung north, scattered rhonchi CV: RRR, no M/R/G ABD: Soft, tender to palpation around PEG site,grimaces w/exam, moderate distention, BT present in all 4 quadrants EXTR: warm, well perfused, no C/C/E SKIN: warm and dry, no rash NEURO:? Awake, alert, attempting to communicate and interact Objective Labs Result Diagrams: 11/21/22 05:00 11/21/22 05:00 Labs: Laboratory Results - last 24 hr 11/21/22 11/21/22 05:00 05:00 WBC 7.4 RBC 3.25 L Hgb 9.6 L Hct 28.5 L MCV 87.8 MCH 29.6 MCHC 33.7 RDW 17.2 H Plt Count 443 H Sodium 138 Potassium 3.6 Chloride 107 Carbon Dioxide 26 BUN 13 Creatinine 0.62 L Estimated GFR > 60 BUN/Creatinine Ratio 21.0 Glucose 78 L Calcium 8.4 Total Bilirubin 0.5 AST 19 ALT 19 Alkaline Phosphatase 85 Total Protein 5.9 L Albumin 2.6 L Globulin 3.3 Albumin/Globulin Ratio 0.8 L [facility] Medical History (Updated 11/18/22 @ 10:16 by Kb Anaay MD) Acid reflux Alcohol abuse Ankle pain Ankylosing spondylitis (1985) Ankylosing spondylitis Chronic back pain Foot pain Fracture cervical vertebra-closed GERD (gastroesophageal reflux disease) Hypertension Hypertension Muscle pain Tobacco use disorder, moderate, in early remission Surgical History History of open reduction and internal fixation (ORIF) procedure (2005) History of tonsillectomy Status post colonoscopy (2012) Status post incision and drainage Family History Father No problems noted. Mother Cancer Other Alcoholism Colorectal cancer Social History Smoking Status: Current every day smoker Assessment & Plan Assessment & Plan narrative: 1. Acute hypoxic respiratory failure Status post tracheostomy 6 days ago. Continues ventilator support. He is postoperative day 4?from trach and PEG tube placement.? Continue ventilator support.? He remains on Zosyn, presently day 8.? Chest Ct unremarkable on November 18.? Per respiratory therapist, patient tolerated assist-control vent settings for approximately 6 hours yesterday. Plan to attempt that again today per compressed gases tester. 2. Bilateral bacterial pneumonia [place] to be superinfection in the setting of influenza A.? Patient is on Zosyn therapy as noted above, presently day 8 3. Acute metabolic encephalopathy Over the course of his hospitalization, he has been treated for infection, alcohol withdrawal.? Noncontrast head CT showed no acute abnormalities.? CT chest/abdomen/pelvis was fairly unrevealing w/exception of moderate bilat pleural effusions, moderate ascites. Gallbladder is distended w/wall thickening and inflammatory change, possibly reflecting a primary gallbladder process vs. reactive changes related to liver disease.? Ammonia level <9. Since sedation has been weaned off, patient has gradually shown improvement in his level of alertness. He is attempting to communicate though it is mostly unsuccessful. Hopefully, he will be able to more effectively communicate in the coming days. 4. Essential hypertension On metoprolol on an outpatient basis which has been held since admission. Blood pressures remain normotensive. 5. Protein calorie malnutrition Patient remains on tube feeds which he is tolerating well. He is moving his bowels regularly. Continues on Reglan as he was having difficulty with motility several days ago. Consider discontinuation or changing it to as needed in the next 24 hours. 6. Normocytic anemia Hemoglobin was 10.8 on admission.? Stable at 9.6 today down somewhat from 10.5 yesterday. However, he has no evidence of bleeding. Continue to monitor. 7. Thrombocytosis Overall improved down from the mid 600s to 443 today. 8.? Eosinophilia 7.9% eosinophils on November 18, up to 11.3 yesterday.? No evidence of parasitic infection/DRESS syndrome.? No rash or other concerning symptoms. Continue to monitor. Tubes/Lines: Trach- placed 11/15 PEG - placed 11/15 Midline-placed 11/20 h[place]go cath-placed 10/30 central line - dc'd 11/20 Resolved issues: Influenza a Alcohol withdrawal Septic shock with end-organ failure Stable issues: Alcohol dependence Heroin dependence Code status Full Prophylaxis Lovenox Disposition ICU.? Ongoing management per compressed gases tester.? Possible LTAC at d/c. Time Spent With Patient Critical Care time: I spent a total of [] minutes of critical care time on this patient's care today; this time is exclusive of procedural time. Quality VTE Deep Vein Thrombosis/Pulmonary Embolism Present on Admission: No
[2022-11-21] MEDS: GABAPENTIN 300 MG CAPSULE TUBE ×2 (16:51→20:34)
--- NOTE | 2022-11-21 19:50 | RT ---
Patient is on cool aerosol set up at 21% Fio2.
--- NOTE | 2022-11-21 20:15 | PM.ICURNDS ---
- Date Patient Seen: 11/21/22 Time Patient Seen: 20:15 :: This patient was seen via real time interactive two-way audiovisual telecommunication. Note: Off all sedation and now on trach collar. Cont PT/OT and OOB as tolerated. D/w RN.
[2022-11-22] VITALS (46 sets, daily range): BP systolic 86–160; BP diastolic 51–99; PULSE 48–118; RESP 18–19; TEMP 36.4–36.9; O2SAT 92–100
[2022-11-22] MEDS: METOCLOPRAMIDE 10 MG/2 ML INJ 5 MG IV ×2 (00:52→05:34)
[2022-11-22 05:32] LABS: Add Manual Diff / Slide Review NO; Basophils Absolute Auto 100 /uL (0-100); Basophils Percent Auto 1.4 % (0-2); Eosinophils Absolute Auto 600 /uL (0-450); Eosinophils Percent Auto 10.9 % (2-4); Hematocrit 29.1 % (41-53); Hemoglobin 9.8 g/dL (13.5-17.5); Lymphocytes Absolute Auto 1400 /uL (1100-4500); Lymphocytes Percent Auto 24.5 % (25-40); Mean Corpuscular HGB Conc 33.8 % (30-36); Mean Corpuscular Hemoglobin 29.8 PG (26-34); Mean Corpuscular Volume 88.1 fL (80-100); Monocytes Absolute Auto 600 /uL (0-900); Monocytes Percent Auto 10.2 % (3-14); Neutrophils Absolute Auto 3000 /uL (1500-7000); Platelet Count 452 X10^3/uL (150-400); Red Cell Distribution Width 16.8 % (11.6-14.8); White Blood Cell Count 5.7 X10^3/uL (4.5-11.0)
[2022-11-22] MEDS: PIPERACILLIN/TAZO 3.375 GM in SODIUM CHLORIDE 0.9% 100 ML IV ×3 (05:33→22:44)
[2022-11-22 05:50] LABS: Blood Urea Nitrogen 13 mg/dL (9-20); Calcium 8.2 mg/dL (8.4-10.2); Carbon Dioxide 26 mmol/L (22-32); Chloride 106 mmol/L (98-107); Estimated Glomerular Filt Rate > 60 mL/min (>60); Glucose 97 mg/dL (80-110); HEMOLYSIS < 15 (0-50); Potassium 3.3 mmol/L (3.4-5.1); Sodium 137 mmol/L (137-145)
--- NOTE | 2022-11-22 06:46 | PC.NURSE ---
Scientific Software Developer Note-Patient is oriented to person and situation, follows simple commands, slept throughout the night after receiving HS meds. On aerosolizing mist, FIO2 21%, SpO2 >94%, SR, BP stable, did dip down to 86/52, then trended upward.
--- NOTE | 2022-11-22 09:15 | PM.PN.EICU ---
Subjective Subjective IF CAMERA ACTIVATED, patient seen via real-time interactive audiovisual communication: Camera activated Consent obtained for tele-granite polisher care: Yes Patient Location: ICU Provider location (State): [place] Other participants/roles: RN Current Medications Current Medications Medications: Home Medications indomethacin 50 mg capsule 50 mg PO TIDP PRN pain, moderate #90 caps 10/13/18 [Rx Confirmed 11/13/22] amitriptyline 25 mg tablet 25 mg PO BEDTIME #30 tabs 01/07/19 [Rx Confirmed 11/13/22] cyclobenzaprine 10 mg tablet 10 mg PO TIDP #90 tabs 11/19/19 [Rx Confirmed 11/13/22] gabapentin 300 mg capsule (Neurontin) 300 mg PO Q8H #90 caps 11/19/19 [Rx Confirmed 11/13/22] metoprolol succinate 50 mg tablet,extended release 24 hr (Toprol XL) 50 mg PO BID #60 tabs 11/19/19 [Rx Confirmed 11/13/22] omeprazole 20 mg capsule,delayed release 20 mg PO QDAY #30 caps 11/19/19 [Rx Confirmed 11/13/22] Visit Medications (administered) Generic Name Dose Route Start Last Admin Trade Name Freq PRN Reason Stop Dose Admin Acetaminophen 650 mg 11/11/22 07:55 11/19/22 23:24 Acetaminophen Susp 650 Mg/20.3 Ml Udc TUBE 650 mg Q6H PRN Administration Fever/Mild Pain (1-3) Enoxaparin Sodium 40 mg 11/06/22 12:00 11/21/22 09:11 Enoxaparin 40 Mg/0.4 Ml Syringe SUBCUT 40 mg DAILY JYOTI Administration Folic Acid 1 mg 10/31/22 09:00 11/21/22 09:11 Folic Acid 1 Mg Tablet PO 1 mg DAILY JYOTI Administration Gabapentin 300 mg 11/06/22 09:45 11/21/22 20:34 Gabapentin 300 Mg Capsule TUBE 300 mg TID JYOTI Administration Sodium Chloride 500 mls @ 1,000 mls/hr 10/31/22 14:03 11/14/22 08:00 Normal Saline 0.9% IV Infused BOLUS PRN Infusion Fluid replacement Piperacillin Sod/Tazobactam 100 mls @ 25 mls/hr 11/13/22 13:15 11/22/22 05:33 Sod 3.375 gm/ Sodium Chloride IV 11/23/22 09:14 25 mls/hr Q8H JYOTI Administration Fentanyl 1,000 mcg/ Dextrose 250 mls @ 9.8 mls/hr 11/14/22 12:15 11/18/22 22:30 IV 0 mcg/kg/hr TITRATE JYOTI 0 mls/hr Titration Protocol 0.7 MCG/KG/HR Metoclopramide HCl 5 mg 11/18/22 18:00 11/22/22 05:34 Metoclopramide 10 Mg/2 Ml Inj IV 5 mg Q6HR JYOTI Administration Midodrine 20 mg 11/20/22 15:00 11/21/22 20:33 Midodrine Hcl 5 Mg Tablet PO 20 mg TID JYOTI Administration Multivitamins 1 tab 10/31/22 09:00 11/21/22 09:12 Multivitamin 1 Tablet PO 1 tab DAILY JYOTI Administration Nicotine 7 mg 10/31/22 09:00 11/21/22 11:59 Nicotine 7 Mg Patch TOP Not Given DAILY JYOTI Ondansetron HCl 4 mg 10/31/22 01:07 11/12/22 23:15 Ondansetron 4 Mg/2 Ml Inj IV 4 mg Q4HR PRN Administration Nausea And Vomiting Oxycodone HCl 10 mg 11/21/22 06:16 11/21/22 18:17 Oxycodone Ir 5 Mg Tablet TUBE 10 mg Q4HR PRN Administration Pain, (1-10) Pantoprazole Sodium 40 mg 11/13/22 09:00 11/21/22 09:11 Pantoprazole 40 Mg Packet PO 40 mg DAILY JYOTI Administration Quetiapine Fumarate 150 mg 11/20/22 21:00 11/21/22 20:34 Quetiapine 100 Mg Tablet TUBE 150 mg BID JYOTI Administration Objective Ventilator Parameters: Ventilator Settings FiO2 25 CPAP Pressure Amount 5 RT Vent Frequency 16 Ventilator Tidal Volume 390 Exhaled Vt/kg IBW 7 Positive End Expiratory 5 Pressure Ventilator Pressure Support 2 Inspiratory Phase Time 0.80 I:E Ratio 1:1.2 Patient Position HOB >= 30 degrees Labs Result Diagrams: 11/22/22 05:15 11/22/22 05:15 Labs: Laboratory Results - last 24 hr 11/22/22 11/22/22 05:15 05:15 WBC 5.7 RBC 3.30 L Hgb 9.8 L Hct 29.1 L MCV 88.1 MCH 29.8 MCHC 33.8 RDW 16.8 H Plt Count 452 H Neut % (Auto) 53.0 Lymph % (Auto) 24.5 L [place] % (Auto) 10.2 Eos % (Auto) 10.9 H Baso % (Auto) 1.4 Neut # (Auto) 3000 Lymph # (Auto) 1400 [place] # (Auto) 600 Eos # (Auto) 600 H Baso # (Auto) 100 Sodium 137 Potassium 3.3 L Chloride 106 Carbon Dioxide 26 BUN 13 Creatinine 0.65 L Estimated GFR > 60 BUN/Creatinine Ratio 20.0 Glucose 97 Calcium 8.2 L Exam Vital Signs (past 8 hours): - 11/22/22 04:00 11/22/22 03:44 11/22/22 01:30 Temperature Pulse Rate 79 Respiratory Rate Blood Pressure 97/62 Pulse Oximetry 100 Oxygen Delivery Method Humidification Trach Collar Blow By Oxygen Flow Rate 0 Fraction of Inspired Oxygen 21 11/22/22 01:30 11/22/22 02:00 11/22/22 02:00 Temperature Pulse Rate 87 86 Respiratory Rate Blood Pressure 93/57 L Pulse Oximetry 96 95 Oxygen Delivery Method Oxygen Flow Rate Fraction of Inspired Oxygen 11/22/22 02:30 11/22/22 02:30 11/22/22 03:00 Temperature Pulse Rate 82 Respiratory Rate Blood Pressure 93/56 L 92/61 Pulse Oximetry 95 Oxygen Delivery Method Oxygen Flow Rate Fraction of Inspired Oxygen 11/22/22 03:00 11/22/22 03:30 11/22/22 03:30 Temperature Pulse Rate 82 79 Respiratory Rate Blood Pressure 101/66 Pulse Oximetry 97 98 Oxygen Delivery Method Oxygen Flow Rate Fraction of Inspired Oxygen 11/22/22 04:00 11/22/22 04:00 11/22/22 04:30 Temperature Pulse Rate 77 82 Respiratory Rate Blood Pressure 102/64 Pulse Oximetry 99 99 Oxygen Delivery Method Oxygen Flow Rate Fraction of Inspired Oxygen 11/22/22 04:30 11/22/22 05:00 11/22/22 05:00 Temperature Pulse Rate 80 Respiratory Rate Blood Pressure 98/61 98/62 Pulse Oximetry 98 Oxygen Delivery Method Oxygen Flow Rate Fraction of Inspired Oxygen 11/22/22 05:30 11/22/22 05:30 11/22/22 06:00 Temperature Pulse Rate 80 Respiratory Rate Blood Pressure 105/65 109/64 Pulse Oximetry 98 Oxygen Delivery Method Oxygen Flow Rate Fraction of Inspired Oxygen 11/22/22 06:00 11/22/22 06:30 11/22/22 06:30 Temperature 97.6 F Pulse Rate 82 81 Respiratory Rate Blood Pressure 100/63 Pulse Oximetry 98 96 Oxygen Delivery Method Oxygen Flow Rate Fraction of Inspired Oxygen 11/22/22 07:38 Temperature 98.4 F Pulse Rate 79 Respiratory Rate 18 Blood Pressure 107/68 Pulse Oximetry 98 Oxygen Delivery Method Oxygen Flow Rate Fraction of Inspired Oxygen Fraction of Inspired Oxygen 21 SaO2/FiO2 Ratio 476 Oxygen Delivery Method Humidification,Trach Collar,Blow By Oxygen Flow Rate 0 Narrative Exam Narrative: Patient on trach collar. Awake, alert - waved at monitor. Still delirious per RN. BP is WNL. Quality TeleICU VTE Deep Vein Thrombosis/Pulmonary Embolism Present on Admission: No Assessment & Plan Assessment and plan (1) Delirium due to multiple etiologies: Status: Acute (2) Tracheostomy in place: Status: Acute (3) Chronic respiratory failure with hypoxia: Status: Acute Assessment & Plan narrative: - Would start to wean Gabapentin (was started for ETOH withdrawal) - Wean Midodrine to 10 TID. Can switch to PRN if BP tolerates this wean - Continue Seroquel - Continue TFs at goal. Would consider weaning Reglan, monitoring for e/o poor motility (would not use residuals, but rather GI symptoms) - Monitor daily QT - PRN pain control - Re-orient, delirium precautions - Dangling/mobility as able - Continue GI/DVT PPx - Continue Trach collar as tolerated. If increased WOB, AMS would check blood gas and placed back on vent. - Zosyn 10 day course to end tomorrow Please contact Tele ICU if any change in status. Time Spent With Patient Critical Care time: I spent a total of [] minutes of critical care time on this patient's care today; this time is exclusive of procedural time.
[2022-11-22] MEDS: FOLIC ACID 1 MG TABLET PO (10:29)
[2022-11-22] MEDS: GABAPENTIN 300 MG CAPSULE TUBE ×3 (10:29→20:53)
[2022-11-22] MEDS: MULTIVITAMIN 1 TABLET 1 TAB PO (10:30)
[2022-11-22] MEDS: ENOXAPARIN 40 MG/0.4 ML SYRINGE SUBCUT (10:30)
[2022-11-22] MEDS: PANTOPRAZOLE 40 MG **PACKET PO (10:31)
[2022-11-22] MEDS: QUETIAPINE 100 MG TABLET 150 MG TUBE ×2 (10:31→20:54)
[2022-11-22] MEDS: POTASSIUM CHLORIDE IN WATER 10 MEQ/100 ML PIGGYBACK 100 MEQ IV ×3 (10:41→16:12)
--- NOTE | 2022-11-22 11:53 | ST.IPSLE ---
Visit Care Team Role Provider Type Sanna Zurita DO Primary Care Provider Physician Specialty: Family Practice Address: [address] [place] [address], [address], [place], [address] Email: [email or web address] Jonathan Hines MD Other Providers Physician Specialty: Medical Address: Phone: Fax: Email: Greta Boyer MD Other Providers Physician Specialty: Medical Address: Phone: Fax: Email: Dre Saucedo MD Other Providers Physician Specialty: Medical Address: [address] [place], [address] Phone: Fax: Email: Jean Kim MD Other Providers Physician Specialty: Internal Medicine Address: Phone: Fax: Email: Rico Ribeiro MD Other Providers Physician Specialty: Medical Address: Phone: Fax: Email: Corey Masters MD Other Providers Physician Specialty: General Surgery Address: [address] [place] [address], [address] Email: [email or web address] Mati Fu MD Other Providers Physician Specialty: Internal Medicine Address: [address] [place] [address], [address] Phone: Fax: Email: [email or web address] Kb Anaya MD Other Providers Physician Specialty: Internal Medicine Address: Phone: Fax: Email: Ghanshyam Oakes MD Other Providers Physician Specialty: Medical Address: Phone: Fax: Email: Chad Whitmore MD Other Providers Physician Specialty: Internal Medicine Address: [address] [place], [address] Phone: Fax: Email: Rodrigo Tate MD Other Providers Physician Specialty: Medical Address: [address], [address] Phone: Fax: Email: Shereen George MD Other Providers Physician Specialty: Medical Address: Phone: Fax: Email: Lisa Alatorre Other Providers Physician Specialty: Medical Address: Phone: Fax: Email: Irvin Logan PA-C Emergency Provider Advanced Animal Care Specialist Referring Provider Specialty: EM Address: [address] [place] [address], [address] Email: [email or web address] Admit Provider Physician Attending Provider Specialty: Hospitalist Internal Medicine Address: [address] [place] [address], [address] Email: Current Diagnoses Sepsis, unspecified organism (10/30/22) Delirium due to known physiological condition (10/30/22) Nicotine dependence, unspecified, in remission (10/30/22) Chronic pain due to trauma (10/30/22) Chronic respiratory failure with hypoxia (10/30/22) Respiratory failure, unspecified, unspecified whether with hypoxia or hypercapnia (10/30/22) Gastro-esophageal reflux disease without esophagitis (10/30/22) Patient's other noncompliance with medication regimen (10/30/22) Tracheostomy status (10/30/22) Past Medical History (Last Reviewed 11/11/22 @ 10:52 by Corey Masters MD) Acid reflux (Medical) Alcohol abuse (Social Hx) Abstinent 2005 Ankle pain (Medical) Ankylosing spondylitis (Medical 1985) Ankylosing spondylitis (Medical) Chronic back pain (Medical) Foot pain (Medical) Fracture cervical vertebra-closed (Medical) GERD (gastroesophageal reflux disease) (Medical) Hypertension (Medical) Hypertension (Medical) Muscle pain (Medical) Tobacco use disorder, moderate, in early remission (Medical) Speech-Language Pathology Speech/Language Eval WELDING INSPECTOR Adult Cognitive Linguistic Eval Start: 11/22/22 11:27 Freq: Status: Active Protocol: Document 11/22/22 11:27 DANIELLA (Rec: 11/22/22 11:52 ZS [id number]) Adult Cognitive Linguistic Evaluation Session Time Visit Start Time 11:00 Visit Stop Time 11:20 Total Visit Minutes 20 Visit Information Visit Number Initial Evaluation Setting Assessment Location Acute Care Visit Type Note Type Initial evaluation Next Note Type Next Note Type Treatment Note Patient Information Identification Type Name Patient History Pt was admitted on 10/31/22. Per H&P: José Miguel Hi 61-year-old male with past medical history hypertension, ankylosing spondylitis, alcohol use disorder presents to the ED with 1 day of acute onset abdominal pain.? Patient states that he was diagnosed with the flu last week, went to the clinic today, was sent to the ED for a chest x-ray to rule out pneumonia.? Patient states that his abdominal pain acutely started this afternoon after he drank some Pepsi.? Patient denies fever, chills, chest pain, shortness of breath, frequency, urgency , dysuria, diarrhea.? Patient appears to be in severe pain, pointing to the general periumbilical area.? Patient states that he did not consume any alcohol today, last alcohol consumption was 3 days ago.? Patient denies any other drug. Patient met SIRS criteria in ED Pt was intubated on 10/31/22 and extubation was attempted on 11/04/22, but pt was re- intubated. PEG tube and tracheostomy performed on . Progress note from 11/21/22 indicated: 61-year-old gentleman with hypertension, ankylosing spondylitis, heroin use, and alcohol dependence who was admitted with influenza a, bacterial pneumonia, acute hypoxic respiratory failure, and alcohol and heroin withdrawal symptoms.? He failed extubation on November 04 and required intubation.? He has remained on mechanical ventilation since that time.? He is now status post trach and PEG tube placement on November 15. He is presently hospital day number 22. He is off of sedation and pressors. Patient does attempt to communicate but has difficulty doing so. We did try to use a paper for him to write on but his writing was difficult to interpret. He does admit to having pain in his neck and head. M otherwise unable to ascertain what he is communicating. Language(s) Spoken in the Home [place] Hearing Hearing Level Normal Subjective Patient Report Pt was laying in bed when WELDING INSPECTOR arrived. NSG reported pt is able to answer y/n questions and point to communicate reliably but written communication was ineffective at this time. Findings/Results Findings Pt had a clipboard and paper in the room with illegible writing on it. He attempted communication via mouthing words and gestures, though did not modify communication when message was not understood. He exhibited interest and understanding of communication board, exploring all pages and using it to spell blond and point to his nurse (who is blonde). Discussed purpose of communication board is to communicate wants and needs when mouthing words is not successful. Pt continued to use mouthing words and gestures as primary communication method and did not use board when he was not understood. Recommend continued practice and education regarding tracheostomy and communication methods to improve pt's ability to communicate wants and needs, especially as it relates to making medical decisions and in emergency situations. Prognosis Prognosis Fair Based on Cognitive status,Comorbidities ,Duration of symptoms/severity ,Time since onset Plan of Care Speech-Language Treatment Yes Frequency 1x per day during stay at Patient/Caregiver Education Described results of evaluation,Patient expressed understanding of evaluation, Patient expressed agreement with goals and treatment plans ,Patient requires further education/training Short Term Goals 1. Pt will spontaneously use AAC device to repair communication breakdown during conversation. 2. Pt will use AAC device to accurately answer questions in 100% of opportunities to demonstrate knowledge and use of device. Youth Advocate Goals Pt will spontaneously use total communication (e.g., AAC device, gestures, etc.) to communicate wants and needs. Discharge Recommendations Inpatient rehab facility
--- NOTE | 2022-11-22 13:27 | CM.DPC ---
DCP Ongoing insurance attempts Per MD, pt making some progress and now not requiring the vent but has trach and PEG and can be down graded from ICU to floor care and more appropriate to now work with PT/OT/ST. TA inquired with MD how long pt may need trach, and typically pt would start with further surgery to place smaller trach tube before it could be capped. Once trach capped, a few local SNFs would be willing to review to see if they could meet pt's needs. Unclear timeline for trach need. TA called yesterday and today to Susanne/LUCRETIA Garcia ([phone]) and requested urgently return call to update on if she has been in touch with Medicaid with the change insurance request form towards switching pt Medicaid to [facility] so that [facility] could accept. So far no return phone calls. TA also sent email to Susanne Garcia to see if she may respond more to email. Blanca Colby MSW
[2022-11-22] MEDS: OXYCODONE IR 5 MG TABLET 10 MG TUBE (16:13)
--- NOTE | 2022-11-22 17:11 | SLP.IPNOTE ---
Spoke with RT who wanted to know if we had Passy-Asher valves. Informed RT that the pt would need to transfer to [facility] if necessary. There are no probation counselor at that are qualified.
--- NOTE | 2022-11-22 17:15 | PT-IP ANOTE ---
checked on pt this afternoon x 2. on first attempt, pt in room with nurse and nurse stated that pt just got back to bed and not ready for PT. checked back on the after ~ 2 hours. nurse in room again. Pt is asleep and stated that tomorrow will be better for pt . will f/u.
--- NOTE | 2022-11-22 17:36 | P.PN_ITS ---
Subjective Subjective Date Patient Seen: 11/22/22 Interval history: 61-year-old gentleman with hypertension, ankylosing spondylitis, heroin use, and alcohol dependence who was admitted with influenza a, bacterial pneumonia, acute hypoxic respiratory failure, and alcohol and heroin withdrawal symptoms.? He failed extubation on November 04 and required intubation.?Pt is status post trach and PEG tube placement on November 15. Extubated 11/21. Patient continues to show global improvement since extubated yesterday. Respiratory status is stable. Mental status improving. Nursing staff and PT were actually able to get him up in chair today. He is on room air and tolerating tube feeds. Blood pressure improving and we have started tapering down the midodrine. Exam Vital Signs (past 8 hours): - 11/22/22 10:00 11/22/22 10:00 11/22/22 10:30 Pulse Rate 96 H Blood Pressure 148/85 H 107/76 Pulse Oximetry 95 11/22/22 10:30 Pulse Rate 102 H Blood Pressure Pulse Oximetry 94 Fraction of Inspired Oxygen 21 SaO2/FiO2 Ratio 476 Oxygen Delivery Method Humidification,Trach Collar,Blow By Oxygen Flow Rate 0 Narrative Exam Narrative: General: Alert and follows simple commands Neck: Tracheostomy site without swelling, drainage or erythema Lungs: Clear Cardiac: Regular rhythm Abdomen: Soft Extremities: No edema Objective Labs Result Diagrams: 11/22/22 05:15 11/22/22 05:15 Labs: Laboratory Results - last 24 hr 11/22/22 11/22/22 05:15 05:15 WBC 5.7 RBC 3.30 L Hgb 9.8 L Hct 29.1 L MCV 88.1 MCH 29.8 MCHC 33.8 RDW 16.8 H Plt Count 452 H Neut % (Auto) 53.0 Lymph % (Auto) 24.5 L [place] % (Auto) 10.2 Eos % (Auto) 10.9 H Baso % (Auto) 1.4 Neut # (Auto) 3000 Lymph # (Auto) 1400 [place] # (Auto) 600 Eos # (Auto) 600 H Baso # (Auto) 100 Sodium 137 Potassium 3.3 L Chloride 106 Carbon Dioxide 26 BUN 13 Creatinine 0.65 L Estimated GFR > 60 BUN/Creatinine Ratio 20.0 Glucose 97 Calcium 8.2 L [facility] Medical History (Updated 11/18/22 @ 10:16 by Kb Anaya MD) Acid reflux Alcohol abuse Ankle pain Ankylosing spondylitis (1985) Ankylosing spondylitis Chronic back pain Foot pain Fracture cervical vertebra-closed GERD (gastroesophageal reflux disease) Hypertension Hypertension Muscle pain Tobacco use disorder, moderate, in early remission Surgical History History of open reduction and internal fixation (ORIF) procedure (2005) History of tonsillectomy Status post colonoscopy (2012) Status post incision and drainage Family History Father No problems noted. Mother Cancer Other Alcoholism Colorectal cancer Social History Smoking Status: Current every day smoker Assessment & Plan Assessment & Plan narrative: 1. Acute hypoxic respiratory failure, resolved Status post tracheostomy.? Continue trach collar as tolerated, will need trach downsized at some point PT/OT/ST consult LTAC referral but possibly could DC to SNF capable of managing trach 2. Bilateral bacterial pneumonia, bacterial [place] to be superinfection in the setting of influenza A.? Patient is on Zosyn therapy as noted above, to complete 10 day therapy on 11/23. Chest CT 11/18 consistent with resolving pneumonia. 3. Acute metabolic encephalopathy, acute ETOH and heroin withdrawal Improving mentation, 11/22 tapered gabapentin to 300 mg b.i.d. which was started for ETOH withdrawal, continue tapering down every 3 days until off Continue on Seroquel 150 mg b.i.d. or telehealth recommendations and monitor QT level 4. Septic shock and shock possibly due to sedatives, resolved -patient off of pressors and remaining normotensive, 11/22 tapered midodrine to 10 mg t.i.d., continue tapering midodrine as blood pressure allows 5. Protein calorie malnutrition Patient remains on tube feeds which he is tolerating well.? He is moving his bowels regularly.? Discontinued Reglan. Added MiraLax 17 g daily through tube. 6. Normocytic anemia, eosinophilia, thrombocytosis Hemoglobin remained stable, platelets coming down, eosinophilia possibly medication related, no evidence of parasitic infection/DRESS syndrome.? No rash or other concerning symptoms.? Continue to monitor. Tubes/Lines: Trach- placed 11/15 PEG - placed 11/15 Midline-placed 11/20 [place] cath-placed 10/30, dc'd 11/22 central line - dc'd 11/22 Time Spent With Patient Critical Care time: I spent a total of [] minutes of critical care time on this patient's care today; this time is exclusive of procedural time. Quality VTE Deep Vein Thrombosis/Pulmonary Embolism Present on Admission: No
[2022-11-22] MEDS: MIDODRINE HCL 5 MG TABLET 10 MG PO (20:54)
[2022-11-23] VITALS (43 sets, daily range): BP systolic 83–109; BP diastolic 51–71; PULSE 43–101; RESP 14–18; TEMP 36.2–36.9; O2SAT 85–100
[2022-11-23 05:40] LABS: HEMOLYSIS < 15 (0-50); Potassium 3.7 mmol/L (3.4-5.1)
[2022-11-23] MEDS: OXYCODONE IR 5 MG TABLET 10 MG TUBE ×4 (05:47→22:44)
[2022-11-23] MEDS: PIPERACILLIN/TAZO 3.375 GM in SODIUM CHLORIDE 0.9% 100 ML IV (05:48)
[2022-11-23] MEDS: QUETIAPINE 100 MG TABLET 150 MG TUBE ×2 (08:23→21:14)
[2022-11-23] MEDS: FOLIC ACID 1 MG TABLET PO (08:23)
[2022-11-23] MEDS: MULTIVITAMIN 1 TABLET 1 TAB PO (08:24)
[2022-11-23] MEDS: GABAPENTIN 300 MG CAPSULE TUBE ×2 (08:24→21:14)
[2022-11-23] MEDS: MIDODRINE HCL 5 MG TABLET 10 MG PO ×3 (08:24→21:14)
[2022-11-23] MEDS: ENOXAPARIN 40 MG/0.4 ML SYRINGE SUBCUT (08:25)
[2022-11-23] MEDS: ACETAMINOPHEN SUSP 650 MG/20.3 ML UDC TUBE ×2 (08:26→21:14)
[2022-11-23] MEDS: polyethylene glycoL 3350 17 GM POWD.PACK TUBE (08:26)
[2022-11-23] MEDS: NICOTINE 7 MG PATCH TOP (08:26)
[2022-11-23] MEDS: PANTOPRAZOLE 40 MG **PACKET PO (08:27)
--- NOTE | 2022-11-23 09:50 | PT.IIE ---
Current Diagnoses Sepsis, unspecified organism (10/30/22) Delirium due to known physiological condition (10/30/22) Nicotine dependence, unspecified, in remission (10/30/22) Chronic pain due to trauma (10/30/22) Chronic respiratory failure with hypoxia (10/30/22) Respiratory failure, unspecified, unspecified whether with hypoxia or hypercapnia (10/30/22) Gastro-esophageal reflux disease without esophagitis (10/30/22) Patient's other noncompliance with medication regimen (10/30/22) Tracheostomy status (10/30/22) Surgery Performed Operation Date: 11/15/22 11:15 Actual Procedures p Tracheostomy(Not Applicable) - Alyssia Barbour MD s Peg Tube Insertion(Not Applicable) - Alyssia Barbour MD Surgical History (Last Reviewed 11/11/22 @ 10:52 by Corey Masters MD) History of open reduction and internal fixation (ORIF) procedure (2005) History of tonsillectomy Status post colonoscopy (2012) Status post incision and drainage Medical History (Last Reviewed 11/11/22 @ 10:52 by Corey Masters MD) Acid reflux Alcohol abuse Ankle pain Ankylosing spondylitis (1985) Ankylosing spondylitis Chronic back pain Foot pain Fracture cervical vertebra-closed GERD (gastroesophageal reflux disease) Hypertension Hypertension Muscle pain Tobacco use disorder, moderate, in early remission Physical Therapy Inpatient Evaluation/Re-Eval M1 PT/OT-IP Prior Functional Status Start: 11/04/22 14:07 Freq: NEEDED Status: Active Protocol: Document 11/23/22 09:50 AB (Rec: 11/23/22 13:19 AB [id number]) Medical Review Prior Functional Status Medical History Reviewed Yes Communication pt with trach and unable to verbalize needs at this time but able to follow directions and able to nod/shake head to answer questions Mobility and Gait unable to get info from pt but per EMR: pt is independent with all mobilities and ambulation without AD Social History Household Members family Additional Social History Comment unable to obtain PLOF and home set up M2 PT-IP Current Condition Start: 11/04/22 14:07 Freq: NEEDED Status: Active Protocol: Document 11/23/22 09:50 AB (Rec: 11/23/22 13:19 AB [email or web address]) Physical Therapy Current Condition Current Condition Evaluation Date 11/23/22 Treatment Diagnosis PNA; influenza A; ETOH adn heroin w/d; difficulty in walking Onset Date 10/30/22 M3 PT-IP Subjective Start: 11/04/22 14:07 Freq: NEEDED Status: Active Protocol: Document 11/23/22 09:50 AB (Rec: 11/23/22 13:19 AB [email or web address]) Subjective Physical Therapy Visit Type Type Initial Evaluation Visit Start Time 09:50 Visit Stop Time 10:33 Total Visit Minutes 43 Number of SKIVER COUNTER Visits 0 Physical Therapy Visit Comments Patient Comments agreed to get out of the bed M4 PT-IP Mobility and Gait Start: 11/04/22 14:07 Freq: NEEDED Status: Active Protocol: Document 11/23/22 09:50 AB (Rec: 11/23/22 13:19 AB [email or web address]) PT-Bed Mobility Assessment Supine to Sit Supine to Sit Maximum Assistance,1 Person Assistance,2 Person Assistance ,Head of Bed Elevated,Bedrails PT-Transfer Assessment Sit to and From Stand Sit to and from Stand Maximum Assistance,2 Person Assistance,Use of Upper Extremities Equipment Transfer Assistive Device Gait Belt,Front Wheeled Walker Orthotic/Prosthetic Devices or Brace: No Transfers Transfer Destination Chair Transfer Technique Stand Pivot Transfer Ability Level of Assist Maximum Assistance,2 Person Assistance,Use of Upper Extremities Comments Mobility Comments BP in supine: 83/52. completed supine to sit max A x 1-2 and max cues with HOB elevated and use of bed rail. pt required mod to max A for sitting balance on EOB with increae R side leaning and cued to correct. BP in sitting : 108/65 completed sit to stand max A x 2 and max cues. BLE shaky. pt tolerated ~ 10 sec of standing using FWW for support and needed to sit down . BP checked: 99/65. pt completed sit to stand again max Ax 2 and max cues and pivot transfer to chair max A x 2 and max cues using FWW. BP after transfers: 97/58. positioned pt on the chair. call light and table placed within reach. Gait Assessment Comments Gait Comments unable at this time PT-Balance Assessment Sitting Balance and Reactions Static Sitting Balance Ability Fair Dynamic Sitting Balance Ability Poor Standing Balance and Reactions Static Standing Balance Ability Poor Dynamic Standing Balance Ability Poor Device Used FWW M5 PT-IP Objective Assessments Start: 11/04/22 14:07 Freq: NEEDED Status: Active Protocol: Document 11/23/22 09:50 AB (Rec: 11/23/22 13:19 AB [email or web address]) Orientation Orientation/Cognition Level of Alertness Alert Safety Awareness Decreased Safety Awareness Comments pt with trach and unable to talk at this time Gross Range of Motion Lower Extremity ROM Assessment Within Functional Limits Strength Lower Extremity Strength Assessment Bilaterally Impaired Hip 3+/5 Knee 3+/5 Muscle Tone Muscle Tone WNL Yes M6 PT-IP Treatment Start: 11/04/22 14:07 Freq: NEEDED Status: Active Protocol: Document 11/23/22 09:50 AB (Rec: 11/23/22 13:19 AB [email or web address]) Physical Therapy Treatment Education Education Provided Safety M7 PT-IP Assessment and Plan Start: 11/04/22 14:07 Freq: NEEDED Status: Active Protocol: Document 11/23/22 09:50 AB (Rec: 11/23/22 13:19 AB [email or web address]) PT Summary Assessment and Plan Potential Rehabilitation Potential Fair Status of Condition at Evaluation Evolving Summary Impairments Pain,ROM,Strength,Balance, Coordination,Sensation,Tone, Cognition,Bed Mobility, Transfers,Gait,Activity Tolerance Assessment Summary pt requiring max A x 2 for transfers using FWW. Recommending renetta lift transfers with nursing staff. pt will require SNF rehab to improve overall strength and mobility. Goals Bed Mobility Goal Moderate Assistance Transfer Goal Moderate Assistance,Front Wheeled Walker Gait Goal Moderate Assistance,Front Wheel Walker Gait Distance 25 Other Goals improve bed mobility: SBA improve transfers using FWW: CGA improve ambulation using FWW ~ 100 ft CGA Days to Meet Goals 10 Frequency of Treatment Frequency Of Treatment Once a Day Treatment Plan Physical Therapy Treatment Plan Bed Mobility Training,Transfer Training,Gait Training, Therapeutic Exercise,Balance Retraining,Discharge Planning, Hot or Cold Pack,Neuromuscular Re-ed,Coordination Retraining Precautions Other Precautions Contact precautions Recommendations To Nursing Amount of Assist Needed Mechanical Lift Discharge Recommendations PT Discharge Recommendations SNF Rehab Transportation Needs at Discharge Wheelchair/Cabulance
--- NOTE | 2022-11-23 10:30 | OT.IP.EVAL ---
Current Diagnoses Sepsis, unspecified organism (10/30/22) Delirium due to known physiological condition (10/30/22) Nicotine dependence, unspecified, in remission (10/30/22) Chronic pain due to trauma (10/30/22) Chronic respiratory failure with hypoxia (10/30/22) Respiratory failure, unspecified, unspecified whether with hypoxia or hypercapnia (10/30/22) Gastro-esophageal reflux disease without esophagitis (10/30/22) Patient's other noncompliance with medication regimen (10/30/22) Tracheostomy status (10/30/22) Surgery Performed Operation Date: 11/15/22 11:15 Actual Procedures p Tracheostomy(Not Applicable) - Alyssia Barbour MD s Peg Tube Insertion(Not Applicable) - Alyssia Barbour MD Past Medical History (Last Reviewed 11/11/22 @ 10:52 by Corey Masters MD) Acid reflux Alcohol abuse Ankle pain Ankylosing spondylitis (1985) Ankylosing spondylitis Chronic back pain Foot pain Fracture cervical vertebra-closed GERD (gastroesophageal reflux disease) Hypertension Hypertension Muscle pain Tobacco use disorder, moderate, in early remission Surgical History (Last Reviewed 11/11/22 @ 10:52 by Corey Masters MD) History of open reduction and internal fixation (ORIF) procedure (2005) History of tonsillectomy Status post colonoscopy (2012) Status post incision and drainage Occupational Therapy Inpatient Evaluation/Re-Eval M1 PT/OT-IP Prior Functional Status Start: 11/04/22 14:07 Freq: NEEDED Status: Active Protocol: Document 11/23/22 09:53 [facility] (Rec: 11/23/22 16:04 [facility] [id number]) Medical Review Prior Functional Status Medical History Reviewed Yes Communication pt with trach and unable to verbalize needs at this time but able to follow directions and able to nod/shake head to answer questions Mobility and Gait unable to get info from pt but per EMR: pt is independent with all mobilities and ambulation without AD Social History Household Members family Additional Social History Comment unable to obtain PLOF and home set up M2 OT-IP Current Condition Start: 11/23/22 15:51 Freq: Status: Active Protocol: Document 11/23/22 09:53 [facility] (Rec: 11/23/22 16:04 [facility] [id number]) Occupational Therapy Current Condition Current Condition Evaluation Date 11/23/22 Treatment Diagnosis PNA, influenza, hypoxia Diagnosis Onset Date 10/30/22 M3 OT- IP Subjective and Pain Start: 11/23/22 15:51 Freq: Status: Active Protocol: Document 11/23/22 09:53 [facility] (Rec: 11/23/22 16:04 [facility] [id number]) OT- Subjective Occupational Therapy Visit Type Type Initial Evaluation Visit Start Time 09:53 Visit Stop Time 10:30 Total Visit Minutes 37 Occupational Therapy Visit Comments Patient Comments Pt agreeing to get up. M4 OT- IP ADL's Start: 11/23/22 15:51 Freq: Status: Active Protocol: Document 11/23/22 09:53 [facility] (Rec: 11/23/22 16:04 [facility] [id number]) OT [id number] Comments OT Self-Feeding Comments Pt is NPO. OT ADL-Grooming Comments OT Grooming Comments Not performed. OT ADL-Oral Care Comments Oral Care Comments Not performed. OT ADL-Dressing General Eval Lower Body Dressing Ability Total Assistance Areas Needing Assistance Socks OT ADL-Toileting Comments OT Toileting Comments Not performed. OT ADL-Bathing Comments OT Bathing Comments Sponge bathing more appropriate at this time. M5 OT- IP IADL's Start: 11/23/22 15:51 Freq: Status: Active Protocol: Document 11/23/22 09:53 [facility] (Rec: 11/23/22 16:04 [facility] [id number]) OT-Instrumental Activities of Daily Living Home Safety Awareness Awareness of Need for Assistance at Home Decreased Awareness M6 OT- IP Functional Cognition Start: 11/23/22 15:51 Freq: Status: Active Protocol: Document 11/23/22 09:53 [facility] (Rec: 11/23/22 16:04 [facility] [id number]) Cognitive Factors Limiting Selfcare Function Cognitive Ability Level of Alertness Alert,Drowsy Cognitive Comments Cognitive Assessment Comments Pt a bit drowsy but able to follow step by commands for bed mobility and transfer at this time. OT- Vision and Hearing OT- Hearing Assessment OT- Hearing Assessment WFL OT- Vision Assessment Visual Acuity Glasses For Reading M7 OT- IP Mobility and Balance Start: 11/23/22 15:51 Freq: Status: Active Protocol: Document 11/23/22 09:53 [facility] (Rec: 11/23/22 16:04 [facility] [id number]) OT- Bed Mobility Assessment Supine to Sit Supine to Sit Assist Maximum Assistance,1 Person Assistance,2 Person Assistance OT-Transfer Assessment Sit to and From Stand Sit to and from Stand Maximum Assistance,2 Person Assistance Transfers Transfer Ability Maximum Assistance,2 Person Assistance Technique Transfer Destination Bed,Chair Comments Mobility Comments MAX A1-2 to get to the edge of the bed and MOD/MAXA for sitting balance needs. MAX AX 2 with cord management, guiding the pt, balance, and assist to help hold pt upright . At this time best to use renetta lift for transfers. OT- Balance Assessment Sitting Balance and Reactions Static Sitting Balance Ability Poor Dynamic Sitting Balance Ability Poor Standing Balance and Reactions Static Standing Balance Ability Poor Dynamic Standing Balance Ability Poor M8 OT- IP Objective Assessments Start: 11/23/22 15:51 Freq: Status: Active Protocol: Document 11/23/22 09:53 [facility] (Rec: 11/23/22 16:04 [facility] [id number]) OT Gross Range of Motion Upper Extremity Range of Motion Assessment Within Functional Limits OT Strength Upper Extremity Strength Assessment Bilaterally Impaired Comments Strength Comments BUE strength 4-/5 to 4/5 from proximal to distal. M9 OT- IP Assessment and Plan Start: 11/23/22 15:51 Freq: Status: Active Protocol: Document 11/23/22 09:53 [facility] (Rec: 11/23/22 16:04 [facility] [id number]) OT Summary Assessment and Plan Potential Rehabilitation Potential Fair Analytic Complexity at Evaluation High Summary OT Impairments Pain,Range of Motion,Strength, Balance,Functional Cognition, Functional Mobility,Grooming, Dressing,Toileting,Bathing, Toilet Transfers,Shower Transfers,Activity Tolerance Progress Towards Goals Slow Progress due to Pain,Slow Progress due to Medical Issues,Slow Progress due to Activity Tolerance,Slow Progress due to Cognition Assessment Summary Pt high complexity now having PNA, trach, hypoxia, and influenza. Pt needing extensive two skilled assist for transfers with FWW today. Pt is a bit drowsy but able to follow commands. Pt will greatly benefit from skilled rehab to help maximize his level of independence for ADl and mobility needs. Goals Grooming Goal Standby Assistance Dressing Goal Moderate Assistance Toileting Goal Moderate Assistance Bathing Goal Moderate Assistance Toilet Transfer Goal Moderate Assistance Shower Transfer Goal Moderate Assistance Days to Meet Goals 15 Frequency of Treatment Frequency Of Treatment Once a Day Treatment Plan OT Treatment Plan ADL Training,Functional Cognition Training,Functional Mobility,Patient/Family Education,Discharge Planning Other Treatment Recommendations and Next Transfer to [facility] with MAX Pierre x2 Treatment Focus with FWW. Discharge Recommendations OT Discharge Recommendations SNF Rehab Transportation Needs at Discharge Wheelchair/Cabulance,Stretcher /Ambulance
--- NOTE | 2022-11-23 13:32 | ST.IPDYTX ---
Visit Care Team Role Provider Type Sanna Zurita DO Primary Care Provider Physician Specialty: Family Practice Address: [address] [place] [address], [address], [address] Email: [email or web address] Jonathan Hines MD Other Providers Physician Specialty: Medical Address: Phone: Fax: Email: Greta Boyer MD Other Providers Physician Specialty: Medical Address: Phone: Fax: Email: Dre Saucedo MD Other Providers Physician Specialty: Medical Address: [address] [place], [address] Phone: Fax: Email: Jean Kim MD Other Providers Physician Specialty: Internal Medicine Address: Phone: Fax: Email: Rico Ribeiro MD Other Providers Physician Specialty: Medical Address: Phone: Fax: Email: Corey Masters MD Other Providers Physician Specialty: General Surgery Address: [address] [place] [address], [id number] Email: [email or web address] Mati Fu MD Other Providers Physician Specialty: Internal Medicine Address: [address] [place] [address], [address] Phone: Fax: Email: [email or web address] Kb Anaya MD Other Providers Physician Specialty: Internal Medicine Address: Phone: Fax: Email: Ghanshyam Oakes MD Other Providers Physician Specialty: Medical Address: Phone: Fax: Email: Chad Whitmore MD Other Providers Physician Specialty: Internal Medicine Address: [address] [place], [address] Phone: Fax: Email: Rodrigo Tate MD Other Providers Physician Specialty: Medical Address: [address], [address] Phone: Fax: Email: Shereen George MD Other Providers Physician Specialty: Medical Address: Phone: Fax: Email: Lisa Alatorre Other Providers Physician Specialty: Medical Address: Phone: Fax: Email: Angel Logan PA-C Emergency Provider Advanced V Belt Skiver Referring Provider Specialty: EM Address: [address] [place] [address], [id number] Email: [facility] Admit Provider Physician Attending Provider Specialty: Hospitalist Internal Medicine Address: [address] [place] [address], [id number] Email: HYDRAULIC MECHANIC Dysphagia Treatment HYDRAULIC MECHANIC Dysphagia Treatment Start: 11/23/22 13:00 Freq: Status: Active Protocol: Document 11/23/22 13:24 ZS (Rec: 11/23/22 13:31 ZS [id number]) Dysphagia Treatment Session Time Visit Start Time 12:30 Visit Stop Time 12:50 Total Visit Minutes 20 Visit Information Visit Number 1 Setting Assessment Location Acute Care Visit Type Note Type Treatment Note Next Note Type Next Note Type Treatment Note Patient Information Identification Type Name Subjective Observations Pt was seated upright in chair when HYDRAULIC MECHANIC arrived. He indicated he needed to go to the bathroom, first by mouthing and pointing, then using paper and pen to write pee and pointing. Treatment Treatment Activities Strengthening exercises for swallow musculature using lemon glycerin swabs. Assessment Assessment of Improvement Pt swallowed x2 with appropriate elevation. Increased difficulty with subsequent trials as pt demonstrated some movement, but no swallow in 5 additional attempts. Pt exhibited significant difficulty with fine motor movements, as observed in moving swab to his mouth and in trying to locate swab to remove it with hands. Pt did not maintain noteman on swab stick while swallowing and swab was observed to move in uncontrolled patterns. Suspect tongue control may be reduced in addition to fine motor and swallow musculature. Diet Recommendations Recommendations Continue Current Diet Liquids Order Nothing by Mouth Diet Order NPO Medication Recommendations Not Recommended by Mouth Treatment Plan Dysphagia Goals 1. Pt will spontaneously use AAC device to repair communication breakdown during conversation. 2. Pt will use AAC device to accurately answer questions in 100% of opportunities to demonstrate knowledge and use of device. 3. Pt will exhibit elevation WNL when swallowing with lemon glycerin swab.
--- NOTE | 2022-11-23 17:19 | P.PN_ITS ---
Subjective Subjective Interval history: 61-year-old gentleman with hypertension, ankylosing spondylitis, heroin use, and alcohol dependence who was admitted with influenza a, bacterial pneumonia, acute hypoxic respiratory failure, and alcohol and heroin withdrawal symptoms.? He failed extubation on November 04 and required intubation.? He has remained on mechanical ventilation since that time.? He is now status post trach and PEG tube placement on November 15.? He is presently hospital day number 24.? He is off of sedation and pressors. He was downgraded to acute care yesterday. Patient is complaining of some left hip pain today. His communication has significantly improved. He is spelling out sentences using a written alphabet. He is asking when he will be allowed to eat and drink. He is also asking when the trach will be removed. He is tearful over his situation. Exam Vital Signs (past 8 hours): - 11/23/22 09:58 11/23/22 09:58 11/23/22 10:00 Temperature Pulse Rate 44 L 43 L Respiratory Rate Blood Pressure 83/52 L Pulse Oximetry 95 94 11/23/22 10:03 11/23/22 10:19 11/23/22 10:23 Temperature Pulse Rate 82 Respiratory Rate Blood Pressure 108/65 Pulse Oximetry 96 97 11/23/22 10:23 11/23/22 10:29 11/23/22 10:29 Temperature Pulse Rate 91 H Respiratory Rate Blood Pressure 99/65 97/53 L Pulse Oximetry 94 11/23/22 11:00 11/23/22 12:00 11/23/22 13:00 Temperature Pulse Rate 49 L 95 H Respiratory Rate Blood Pressure Pulse Oximetry 96 97 100 11/23/22 13:02 11/23/22 13:02 11/23/22 14:00 Temperature 98.4 F Pulse Rate 96 H 91 H Respiratory Rate 18 Blood Pressure 109/67 Pulse Oximetry 100 95 11/23/22 15:00 11/23/22 15:37 11/23/22 15:37 Temperature Pulse Rate 99 H 97 H Respiratory Rate Blood Pressure 109/70 Pulse Oximetry 97 95 11/23/22 16:00 Temperature Pulse Rate 99 H Respiratory Rate Blood Pressure Pulse Oximetry 97 Fraction of Inspired Oxygen 21 SaO2/FiO2 Ratio 476 Oxygen Delivery Method Room Air,Humidification,Trach Collar,Blow By Oxygen Flow Rate 0 Narrative Exam Narrative: GEN:? Middle-aged male, alert and awake,, chronic ill-appearing, improved communication HEENT:NC, Face symmetric, trach in place without significant drainage noted CHEST: Respiratory excursions symmetric, coarse but clear bilaterally CV: RRR, no M/R/G ABD: Soft, mildly tender to palpation around PEG site,moderate distention, BT present in all 4 quadrants EXTR: warm, well perfused, no C/C/E SKIN: warm and dry, no rash NEURO:? Awake, alert, appears to be oriented to situation/location Objective Labs Result Diagrams: 11/22/22 05:15 11/23/22 05:15 Labs: Laboratory Results - last 24 hr 11/23/22 05:15 Potassium 3.7 PFSH Medical History (Updated 11/18/22 @ 10:16 by Kb Anaya MD) Acid reflux Alcohol abuse Ankle pain Ankylosing spondylitis (1985) Ankylosing spondylitis Chronic back pain Foot pain Fracture cervical vertebra-closed GERD (gastroesophageal reflux disease) Hypertension Hypertension Muscle pain Tobacco use disorder, moderate, in early remission Surgical History History of open reduction and internal fixation (ORIF) procedure (2005) History of tonsillectomy Status post colonoscopy (2012) Status post incision and drainage Family History Father No problems noted. Mother Cancer Other Alcoholism Colorectal cancer Social History household members: family Smoking Status: Current every day smoker Assessment & Plan Assessment & Plan narrative: 1. Acute hypoxic respiratory failure He is postoperative day 8?from trach and PEG tube placement.? He was successfully weaned from the ventilator and is now stable in room air. He remains on Zosyn, presently day 09/03.? Chest Ct unremarkable on November 18.? I have asked speech therapy to consider swallow evaluation. They are unable to place a Passy Asher valve. 2. Bilateral bacterial pneumonia [place] to be superinfection in the setting of influenza A.? Patient is on Zosyn therapy as noted above, presently day 09/03 3. Acute metabolic encephalopathy Over the course of his hospitalization, he has been treated for infection, alc ohol withdrawal.? Noncontrast head CT showed no acute abnormalities.? CT chest/abdomen/pelvis was fairly unrevealing w/exception of moderate bilat pleural effusions, moderate ascites. Gallbladder is distended w/wall thickening and inflammatory change, possibly reflecting a primary gallbladder process vs. reactive changes related to liver disease.? Ammonia level <9.? Since sedation has been weaned off, patient has gradually shown improvement in his level of alertness.? He is now much more alert, awake, cooperative, and interactive. He appears to be close to his baseline. 4. Essential hypertension On metoprolol on an outpatient basis which has been held since admission.? Blood pressures remain normotensive with midodrine and place. He had prolonged hypotension requiring pressors earlier this hospitalization but was able to be weaned off of the pressors with the addition of the midodrine.. 5. Protein calorie malnutrition Patient remains on tube feeds which he is tolerating well.? He is moving his bowels regularly.? Reglan has been discontinued now that he is tolerating his tube feeds better. 6. Normocytic anemia Hemoglobin was 10.8 on admission.? Stable at 9.8 on yesterday's labs. 7. Thrombocytosis Overall improved down from the mid 600s to mid 400s on yesterday's labs 8.? Eosinophilia Unclear etiology. Eosinophils were down to 10.9% yesterday. No concern for dress syndrome. Tubes/Lines: Trach- placed 11/15 PEG - placed 11/15 Midline-placed 11/20 hidalgo cath-placed 10/30 central line - dc'd 11/20 Resolved issues: Influenza a Alcohol withdrawal Septic shock with end-organ failure Stable issues: Alcohol dependence Heroin dependence Code status Full Prophylaxis Lovenox Disposition Acute care. POssible LTAC at d/c pending insurance. Time Spent With Patient Critical Care time: I spent a total of [] minutes of critical care time on this patient's care today; this time is exclusive of procedural time. Quality VTE Deep Vein Thrombosis/Pulmonary Embolism Present on Admission: No
[2022-11-24] VITALS (33 sets, daily range): BP systolic 101–138; BP diastolic 58–78; PULSE 48–119; RESP 14–22; TEMP 36.1–37.1; O2SAT 70–99
[2022-11-24 06:13] LABS: Add Manual Diff / Slide Review NO; Basophils Absolute Auto 200 /uL (0-100); Basophils Percent Auto 2.4 % (0-2); Eosinophils Absolute Auto 700 /uL (0-450); Hematocrit 32.2 % (41-53); Hemoglobin 10.7 g/dL (13.5-17.5); Lymphocytes Absolute Auto 2100 /uL (1100-4500); Lymphocytes Percent Auto 30.4 % (25-40); Mean Corpuscular HGB Conc 33.3 % (30-36); Mean Corpuscular Hemoglobin 29.6 PG (26-34); Mean Corpuscular Volume 88.8 fL (80-100); Monocytes Absolute Auto 700 /uL (0-900); Monocytes Percent Auto 10.5 % (3-14); Neutrophils Absolute Auto 3200 /uL (1500-7000); Neutrophils Percent Auto 46.7 % (50-75); Platelet Count 493 X10^3/uL (150-400); Red Blood Cell Count 3.62 X10^6/uL (4.5-5.9); White Blood Cell Count 6.8 X10^3/uL (4.5-11.0)
[2022-11-24 06:21] LABS: Blood Urea Nitrogen 13 mg/dL (9-20); Calcium 8.8 mg/dL (8.4-10.2); Carbon Dioxide 26 mmol/L (22-32); Chloride 105 mmol/L (98-107); Estimated Glomerular Filt Rate > 60 mL/min (>60); Glucose 88 mg/dL (80-110); HEMOLYSIS < 15 (0-50); Magnesium 1.8 mg/dL (1.6-2.3); Phosphorous 3.2 mg/dL (2.3-3.7); Potassium 3.6 mmol/L (3.4-5.1); Sodium 139 mmol/L (137-145)
--- NOTE | 2022-11-24 06:50 | RT ---
Pt continues off the vent and on heated aerosol trach collar/21% FiO2. Tolerating well. Trach tube remains patent, midline, secure. No distress or desaturation events noted t/o shift.
[2022-11-24] MEDS: OXYCODONE IR 5 MG TABLET 10 MG TUBE ×3 (07:41→20:04)
[2022-11-24] MEDS: ENOXAPARIN 40 MG/0.4 ML SYRINGE SUBCUT (10:15)
[2022-11-24] MEDS: FOLIC ACID 1 MG TABLET PO (10:15)
[2022-11-24] MEDS: MULTIVITAMIN 1 TABLET 1 TAB PO (10:15)
[2022-11-24] MEDS: QUETIAPINE 100 MG TABLET 150 MG TUBE ×2 (10:16→20:05)
[2022-11-24] MEDS: PANTOPRAZOLE 40 MG **PACKET PO (10:16)
[2022-11-24] MEDS: NICOTINE 7 MG PATCH TOP (10:43)
--- NOTE | 2022-11-24 10:45 | PT.IPTN ---
Current Diagnoses Sepsis, unspecified organism (10/30/22) Delirium due to known physiological condition (10/30/22) Nicotine dependence, unspecified, in remission (10/30/22) Chronic pain due to trauma (10/30/22) Chronic respiratory failure with hypoxia (10/30/22) Respiratory failure, unspecified, unspecified whether with hypoxia or hypercapnia (10/30/22) Gastro-esophageal reflux disease without esophagitis (10/30/22) Patient's other noncompliance with medication regimen (10/30/22) Tracheostomy status (10/30/22) Surgery Performed Operation Date: 11/15/22 11:15 Actual Procedures p Tracheostomy(Not Applicable) - Alyssia Barbour MD s Peg Tube Insertion(Not Applicable) - Alyssia Barbour MD Physical Therapy Treatment Note M2 PT-IP Current Condition Start: 11/04/22 14:07 Freq: NEEDED Status: Active Protocol: Document 11/23/22 09:50 AB (Rec: 11/23/22 13:19 AB [id number]) Physical Therapy Current Condition Current Condition Evaluation Date 11/23/22 Treatment Diagnosis PNA; influenza A; ETOH adn heroin w/d; difficulty in walking Onset Date 10/30/22 M3 PT-IP Subjective Start: 11/04/22 14:07 Freq: NEEDED Status: Active Protocol: Document 11/24/22 10:45 AB (Rec: 11/24/22 13:19 AB [id number]) Subjective Physical Therapy Visit Type Type Treatment Note Visit Start Time 10:45 Visit Stop Time 11:25 Total Visit Minutes 40 Number of NICKER AND BREAKER Visits 0 Physical Therapy Visit Comments Patient Comments agreeable to do PT M4 PT-IP Mobility and Gait Start: 11/04/22 14:07 Freq: NEEDED Status: Active Protocol: Document 11/24/22 10:45 AB (Rec: 11/24/22 13:19 AB [id number]) PT-Transfer Assessment Sit to and From Stand Sit to and from Stand Maximum Assistance,1 Person Assistance,Use of Upper Extremities Equipment Transfer Assistive Device Gait Belt,Front Wheeled Walker Orthotic/Prosthetic Devices or Brace: No Comments Mobility Comments pt sitting on chair. pt commicated by writing on paper . pt able to folow directions . completed sit to stand max A x 1 and max cues. pt completed x 2 sets and tolerated : ~ 10 sec and 6 sec . c/o feeling fatigue. increase coughing when tired. required increase rest breaks in between tasks. agreed to do seated exercises. completed LAQ's with 5 sec hold, seated marches and ankle pumps. positioned pt on the chair. call light and table placed within reach. M5 PT-IP Objective Assessments Start: 11/04/22 14:07 Freq: NEEDED Status: Active Protocol: Document 11/23/22 09:50 AB (Rec: 11/23/22 13:19 AB [id number]) Orientation Orientation/Cognition Level of Alertness Alert Safety Awareness Decreased Safety Awareness Comments pt with trach and unable to talk at this time Gross Range of Motion Lower Extremity ROM Assessment Within Functional Limits Strength Lower Extremity Strength Assessment Bilaterally Impaired Hip 3+/5 Knee 3+/5 Muscle Tone Muscle Tone WNL Yes M6 PT-IP Treatment Start: 11/04/22 14:07 Freq: NEEDED Status: Active Protocol: Document 11/24/22 10:45 AB (Rec: 11/24/22 13:19 [email or web address] Physical Therapy Treatment Exercises Exercises Ankle Pumps Education Education Provided Safety Other Treatments Other Treatment Performed completed LAQ's with 5 sec hold, seated marches and ankle pumps. M7 PT-IP Assessment and Plan Start: 11/04/22 14:07 Freq: NEEDED Status: Active Protocol: Document 11/24/22 10:45 AB (Rec: 11/24/22 13:19 AB [id number]) PT Summary Assessment and Plan Potential Rehabilitation Potential Fair Summary Impairments Pain,ROM,Strength,Balance, Coordination,Sensation,Tone, Cognition,Bed Mobility, Transfers,Gait,Activity Tolerance Progress Towards Goals Slow Progress due to Medical Issues,Slow Progress due to Activity Tolerance Assessment Summary pt progressing slowly needing max A with sit to stand but continue to have decrease activity tolerance and only tolerate ~ 10 sec of standing. pt will benefit from SNF rehab to improve strength and mobility. Goals Bed Mobility Goal Moderate Assistance Transfer Goal Moderate Assistance,Front Wheeled Walker Gait Goal Moderate Assistance,Front Wheel Walker Gait Distance 25 Other Goals improve bed mobility: SBA improve transfers using FWW: CGA improve ambulation using FWW ~ 100 ft CGA Days to Meet Goals 10 Frequency of Treatment Frequency Of Treatment Once a Day Treatment Plan Physical Therapy Treatment Plan Bed Mobility Training,Transfer Training,Gait Training, Therapeutic Exercise,Balance Retraining,Discharge Planning, Hot or Cold Pack,Neuromuscular Re-ed,Coordination Retraining Precautions Other Precautions Contact precautions (MRSA); infl. A Recommendations To Nursing Amount of Assist Needed Mechanical Lift Discharge Recommendations PT Discharge Recommendations SNF Rehab Transportation Needs at Discharge Wheelchair/Cabulance
--- NOTE | 2022-11-24 12:08 | CM.DPNOTE ---
DCP Note This morning in rounds, Dr Henning reports patient asking when he can return home. Patient has made remarkable improvement per staff report and Dr Henning curious if going home is a viable option for patient According to chart review: -Patient is functionally deconditioned and currently requiring 2 person assist, use of renetta lift recommended by PT because patient cannot tolerate standing and has not ambulated -Patient has trach and will require a [place] valve in order to speak and swallow, this cannot be placed at [facility]. Patient needs assistance to manage trach -Patient is currently writing to communicate thoughts and needs, patient fatigues quickly and mental status waxes and wanes but patient now alert and oriented -Patient will need to DC with peg and tube feeding. Will need assistance to manage peg, outpatient home infusion if discharging home Met w/patient to review above. This visit was lengthy; patient writes to communicate and writing takes time. Patient writes that he has multiple family members that already check on him and go in and out everyday. Explained to patient that he would need family members to stay and care for him. Patient lists multiple family members he is hopeful will help- multiple siblings, nieces and nephews and in-laws. Patient gives this contact to attempt: Azeem P [phone] This ENVIRONMENTAL REMEDIATION CONSULTANT suggested a family conference between patient, ENVIRONMENTAL REMEDIATION CONSULTANT and chosen family members, son and ex spouse. Patient writes these family members will be visiting this afternoon Meanwhile, sent email to patient's dtr Radha asking for an update on securing an alternative Medicaid plan, no answer yet. This ENVIRONMENTAL REMEDIATION CONSULTANT assumes patient's Classic Medicaid plan will not cover HH and Home Infusion services however this needs to be investigated. Patient with much improved cognition today, alert and oriented and using pen/paper to communicate. Patient could pick an alternative Medicaid plan via [facility] IPAD online at [email or web address] or by phone at P [phone] Patient would require someone at bedside to assist, ideally someone that understands how to navigate this system Emailed admitting group requesting advice on this JW
--- NOTE | 2022-11-24 12:56 | PC.NURSE ---
Addendum entered by Candida Porter R.N. 11/24/22 19:04: 1815 - patients family arrive. Pt became very anxious. Multiple attempts to get dressed. Asking to leave to herrera his check, and then he will come back. Pt very frustrated at being told he could not leave. Assisted to put on some clothes. Out of bed to chair. Family nervous regarding home care. Encourage family to arrive or call in time to speak with care management. Contact numbers written on white board. Addendum entered by Candida Porter R.N. 11/24/22 15:02: Late entry 1100 - corporate paralegal RN reported tube feeding recommended by dietary department to start at 0500 not available. Did not arrive with morning meals. Called dietary department for Glucerna. initiated infusion at 1100. Original Note: 1200- Attempted to remove trache sutures per MD order. Two removed, third suture is deep into anterior trache. Unable to visualize loop to cut. Provider aware.
[2022-11-24] MEDS: ACETAMINOPHEN SUSP 650 MG/20.3 ML UDC TUBE (16:05)
--- NOTE | 2022-11-24 16:40 | P.PN_ITS ---
Subjective Subjective Date Patient Seen: 11/24/22 Interval history: 61-year-old gentleman with hypertension, ankylosing spondylitis, heroin use, and alcohol dependence who was admitted with influenza a, bacterial pneumonia, acute hypoxic respiratory failure, and alcohol and heroin withdrawal symptoms.? He failed extubation on November 04 and required re-intubation.?Pt is status post trach and PEG tube placement on November 15. Extubated 11/21. Patient is improving and indicates he wants to go home. He communicates by writing and circling words. Using trach collar. Tolerating tube feeds Exam Vital Signs (past 8 hours): - 11/24/22 08:50 11/24/22 08:50 11/24/22 09:04 Temperature 98.7 F Pulse Rate 97 H 68 Respiratory Rate Blood Pressure 116/65 Pulse Oximetry 96 81 L 11/24/22 10:44 11/24/22 09:05 11/24/22 12:41 Temperature Pulse Rate 118 H 90 Respiratory Rate 14 Blood Pressure Pulse Oximetry 70 L 96 94 11/24/22 15:31 Temperature 98.3 F Pulse Rate 100 H Respiratory Rate 18 Blood Pressure 105/61 Pulse Oximetry 96 Fraction of Inspired Oxygen 21 SaO2/FiO2 Ratio 476 Oxygen Delivery Method Blow By Oxygen Flow Rate 0 Narrative Exam Narrative: General: Patient is awake and sitting in chair Lungs: Clear to auscultation Heart: Regular rhythm Abdomen: Soft Extremities: No edema Neurological: Improved communication writing/circling word Objective Labs Result Diagrams: 11/24/22 05:45 11/24/22 05:45 Labs: Laboratory Results - last 24 hr 11/24/22 11/24/22 05:45 05:45 WBC 6.8 RBC 3.62 L Hgb 10.7 L Hct 32.2 L MCV 88.8 MCH 29.6 MCHC 33.3 RDW 17.0 H Plt Count 493 H Neut % (Auto) 46.7 L Lymph % (Auto) 30.4 [place] % (Auto) 10.5 Eos % (Auto) 10.0 H Baso % (Auto) 2.4 H Neut # (Auto) 3200 Lymph # (Auto) 2100 [place] # (Auto) 700 Eos # (Auto) 700 H Baso # (Auto) 200 H Sodium 139 Potassium 3.6 Chloride 105 Carbon Dioxide 26 BUN 13 Creatinine 0.62 L Estimated GFR > 60 BUN/Creatinine Ratio 21.0 Glucose 88 Calcium 8.8 Phosphorus 3.2 Magnesium 1.8 [facility] Medical History (Updated 11/18/22 @ 10:16 by Kb Anaya MD) Acid reflux Alcohol abuse Ankle pain Ankylosing spondylitis (1985) Ankylosing spondylitis Chronic back pain Foot pain Fracture cervical vertebra-closed GERD (gastroesophageal reflux disease) Hypertension Hypertension Muscle pain Tobacco use disorder, moderate, in early remission Surgical History History of open reduction and internal fixation (ORIF) procedure (2005) History of tonsillectomy Status post colonoscopy (2012) Status post incision and drainage Family History Father No problems noted. Mother Cancer Other Alcoholism Colorectal cancer Social History household members: family Smoking Status: Current every day smoker Assessment & Plan Assessment & Plan narrative: 1. Acute hypoxic respiratory failure, resolved Status post tracheostomy.? Continue trach collar as tolerated, will need trach downsized at some point PT/OT/ST consult LTAC referral but possibly could DC to SNF even home if family is capable of managing trach and feeding tube 2. Bilateral bacterial pneumonia, bacterial [place] to be superinfection in the setting of influenza A.? Patient is on Zosyn therapy as noted above, completed 10 day therapy on 11/23.? Chest CT 11/18 consistent with resolving pneumonia. 3. Acute metabolic encephalopathy, acute ETOH and heroin withdrawal, resolved Improving mentation, further tapered gabapentin to 300 mg q.d. which was started for ETOH withdrawal, and stop after 3 days Continue on Seroquel 150 mg b.i.d. per telehealth recommendations and monitor QT level, could perhaps start tapering Seroquel as well 4. Septic shock and shock possibly due to sedatives, resolved -patient off of pressors and remaining normotensive, 11/22 tapered midodrine to 10 mg t.i.d., 11/24 stopped midodrine 5. Protein calorie malnutrition Patient remains on tube feeds which he is tolerating well.? He is moving his bowels regularly.? MiraLax 17 g daily through tube. 6. Normocytic anemia, eosinophilia, thrombocytosis Hemoglobin remained stable, platelets coming down, eosinophilia possibly medication related, no evidence of parasitic infection/DRESS syndrome.? No rash or other concerning symptoms.? Continue to monitor. Tubes/Lines: Trach- placed 11/15 PEG - placed 11/15 Midline-placed 11/20 hidalgo cath-placed 10/30, dc'd 11/22 central line - dc'd 11/22 Time Spent With Patient Critical Care time: I spent a total of [] minutes of critical care time on this patient's care today; this time is exclusive of procedural time. Quality VTE Deep Vein Thrombosis/Pulmonary Embolism Present on Admission: No
[2022-11-25] VITALS (10 sets, daily range): BP systolic 89–111; BP diastolic 55–75; PULSE 51–100; RESP 16–22; TEMP 36.5–37.4; O2SAT 96–99
[2022-11-25] MEDS: ACETAMINOPHEN SUSP 650 MG/20.3 ML UDC TUBE ×2 (02:05→18:46)
[2022-11-25] MEDS: OXYCODONE IR 5 MG TABLET 10 MG TUBE ×3 (02:06→23:07)
--- NOTE | 2022-11-25 05:23 | RT ---
Pt remained off the vent and stable t/o shift. Currently on heated aerosol trach collar at 21% FiO2. Trach tube remains secured, patent and midline. Pt is asleep, noting eupneic breathing pattern. Will cont. to monitor.
[2022-11-25] MEDS: ENOXAPARIN 40 MG/0.4 ML SYRINGE SUBCUT (08:17)
[2022-11-25] MEDS: MULTIVITAMIN 1 TABLET 1 TAB PO (08:18)
[2022-11-25] MEDS: GABAPENTIN 300 MG CAPSULE TUBE (08:18)
[2022-11-25] MEDS: PANTOPRAZOLE 40 MG VIAL IV (08:18)
[2022-11-25] MEDS: FOLIC ACID 1 MG TABLET PO (08:18)
[2022-11-25] MEDS: QUETIAPINE 100 MG TABLET 150 MG TUBE ×2 (08:19→20:24)
--- NOTE | 2022-11-25 09:10 | PC.NURSE ---
Pt alert non verbal using writing board to communicate. Heated trach tube secured and midline fio2 21% maintained by lead carpenter. using oral suction independently. Tube feeding glucerna 1.5 at 68 started, denies pain reposition for comfort. hospitalist here to see pt,
--- NOTE | 2022-11-25 09:24 | ST.IPDYTX ---
Visit Care Team Role Provider Type Sanna Zurita DO Primary Care Provider Physician Specialty: Family Practice Address: [address] [place] [address], [address], [place], [address] Email: [email or web address] Jonathan Hines MD Other Providers Physician Specialty: Medical Address: Phone: Fax: Email: Greta Boyer MD Other Providers Physician Specialty: Medical Address: Phone: Fax: Email: Dre Saucedo MD Other Providers Physician Specialty: Medical Address: [address] [place], [address] Phone: Fax: Email: Jean Kim MD Other Providers Physician Specialty: Internal Medicine Address: Phone: Fax: Email: Rico Ribeiro MD Other Providers Physician Specialty: Medical Address: Phone: Fax: Email: Corey Masters MD Other Providers Physician Specialty: General Surgery Address: [address] [place] [address], [address] Email: [email or web address] Mati Fu MD Other Providers Physician Specialty: Internal Medicine Address: [address] [place] [address], [address] Phone: Fax: Email: @[email or web address] Kb Anaya MD Other Providers Physician Specialty: Internal Medicine Address: Phone: Fax: Email: Ghanshyam Oakes MD Other Providers Physician Specialty: Medical Address: Phone: Fax: Email: Chad Whitmore MD Other Providers Physician Specialty: Internal Medicine Address: [address] [place], [address] Phone: Fax: Email: Rodrigo Tate MD Other Providers Physician Specialty: Medical Address: [address], [address] Phone: Fax: Email: Shereen George MD Other Providers Physician Specialty: Medical Address: Phone: Fax: Email: Lisa Alatorre Other Providers Physician Specialty: Medical Address: Phone: Fax: Email: Irvin Logan PA-C Emergency Provider [employer] Registrar Referring Provider Specialty: EM Address: [address] [place] [address], [address] Email: [email or web address] Admit Provider Physician Attending Provider Specialty: Hospitalist Internal Medicine Address: [address] [place] [address], [address] Email: MANAGER OF NETWORK Dysphagia Treatment MANAGER OF NETWORK Dysphagia Treatment Start: 11/23/22 13:00 Freq: Status: Active Protocol: Document 11/25/22 09:20 ZS (Rec: 11/25/22 09:24 ZS [id number]) Dysphagia Treatment Session Time Visit Start Time 08:45 Visit Stop Time 09:00 Total Visit Minutes 15 Visit Information Visit Number 2 Setting Assessment Location Acute Care Visit Type Note Type Treatment Note Next Note Type Next Note Type Treatment Note Patient Information Identification Type Name Subjective Observations Pt was seated semi-reclined in bed when MANAGER OF NETWORK arrived. He agreed to participate in swallow exercises with lemon glycerin swab. Treatment Treatment Activities Strengthening exercises for swallow musculature using lemon glycerin swabs. Assessment Assessment of Improvement Pt unable to swallow today, though exhibited increased tongue control than in previous session. Attempted swallow x4 and pt reported no difficulty swallowing, though no elevation was observed. Practiced tongue lateralization exercises and pt moved tongue appropriately. He pushed swab from left to right and held against the roof of his mouth with no difficulty. After tongue movement and 4 swallow attempts, pt refused further trials. Diet Recommendations Recommendations Continue Current Diet Liquids Order Nothing by Mouth Diet Order NPO Medication Recommendations Not Recommended by Mouth Treatment Plan Dysphagia Goals 1. Pt will spontaneously use AAC device to repair communication breakdown during conversation. 2. Pt will use AAC device to accurately answer questions in 100% of opportunities to demonstrate knowledge and use of device. 3. Pt will exhibit elevation WNL when swallowing with lemon glycerin swab.
--- NOTE | 2022-11-25 10:12 | PT.IPTN ---
Current Diagnoses Sepsis, unspecified organism (10/30/22) Delirium due to known physiological condition (10/30/22) Nicotine dependence, unspecified, in remission (10/30/22) Chronic pain due to trauma (10/30/22) Chronic respiratory failure with hypoxia (10/30/22) Respiratory failure, unspecified, unspecified whether with hypoxia or hypercapnia (10/30/22) Gastro-esophageal reflux disease without esophagitis (10/30/22) Patient's other noncompliance with medication regimen (10/30/22) Tracheostomy status (10/30/22) Surgery Performed Operation Date: 11/15/22 11:15 Actual Procedures p Tracheostomy(Not Applicable) - Alyssia Barbour MD s Peg Tube Insertion(Not Applicable) - Alyssia Barobur MD Physical Therapy Treatment Note M2 PT-IP Current Condition Start: 11/04/22 14:07 Freq: NEEDED Status: Active Protocol: Document 11/23/22 09:50 AB (Rec: 11/23/22 13:19 AB [id number]) Physical Therapy Current Condition Current Condition Evaluation Date 11/23/22 Treatment Diagnosis PNA; influenza A; ETOH adn heroin w/d; difficulty in walking Onset Date 10/30/22 M3 PT-IP Subjective Start: 11/04/22 14:07 Freq: NEEDED Status: Active Protocol: Document 11/25/22 10:12 DLM (Rec: 11/25/22 10:25 DL [id number]) Subjective Physical Therapy Visit Type Type Treatment Note Visit Start Time 09:40 Visit Stop Time 10:12 Total Visit Minutes 32 Number of BYPRODUCTS PUMP OPERATOR Visits 0 Physical Therapy Visit Comments Patient Comments written communication used this visit due to trach, he reports he will have a lot of questions later M4 PT-IP Mobility and Gait Start: 11/04/22 14:07 Freq: NEEDED Status: Active Protocol: Document 11/25/22 10:12 DLM (Rec: 11/25/22 10:25 DL [id number]) PT-Bed Mobility Assessment Sit to Supine Sit to Supine Minimal Assistance Scooting Scooting to Edge of Bed Standby Assistance PT-Transfer Assessment Sit to and From Stand Sit to and from Stand Minimal Assistance,Moderate Assistance,Use of Upper Extremities Equipment Transfer Assistive Device Front Wheeled Walker Transfers Transfer Destination Bed Transfer Technique Stand Step Pivot Transfer Ability Level of Assist Minimal Assistance,Use of Upper Extremities Comments Mobility Comments pt is up on the bedside commode with nursing, he stood 3 time for toileting then transferred back to the bed, offered to get him into the recliner but he declined and wanted back into bed Gait Assessment Gait Gait Assistance Required: Minimum Assistance Distance (Feet) 2 Assistive Devices Assistive Device Front Wheeled Walker Gait Deviations General Gait Pattern Decreased Stride Length,Flexed Trunk Factors Limiting Gait Function Factors Limiting Gait Function Decreased Activity Tolerance, Decreased Strength,Poor Balance Comments Gait Comments he was able to take a few steps at the edge of the bed, he fatigues quickly and needed to sit to rest, he demonstrates bilateral knee flexion in standing but is able to bear his weight to take functional steps PT-Balance Assessment Sitting Balance and Reactions Static Sitting Balance Ability Fair Dynamic Sitting Balance Ability Fair Standing Balance and Reactions Static Standing Balance Ability Fair Dynamic Standing Balance Ability Fair Device Used FWW M5 PT-IP Objective Assessments Start: 11/04/22 14:07 Freq: NEEDED Status: Active Protocol: Document 11/23/22 09:50 AB (Rec: 11/23/22 13:19 AB [id number]) Orientation Orientation/Cognition Level of Alertness Alert Safety Awareness Decreased Safety Awareness Comments pt with trach and unable to talk at this time Gross Range of Motion Lower Extremity ROM Assessment Within Functional Limits Strength Lower Extremity Strength Assessment Bilaterally Impaired Hip 3+/5 Knee 3+/5 Muscle Tone Muscle Tone WNL Yes M6 PT-IP Treatment Start: 11/04/22 14:07 Freq: NEEDED Status: Active Protocol: Document 11/25/22 10:12 DLM (Rec: 11/25/22 10:25 [facility] [id number]) Physical Therapy Treatment Exercises Exercises Ankle Pumps,Seated Knee Flexion/Extension Education Education Provided Safety Other Treatments Other Treatment Performed sitting balance training with intermittent post lean that he has to keep correcting M7 PT-IP Assessment and Plan Start: 11/04/22 14:07 Freq: NEEDED Status: Active Protocol: Document 11/25/22 10:12 DLM (Rec: 11/25/22 10:25 DL [id number]) PT Summary Assessment and Plan Summary Impairments Pain,ROM,Strength,Balance, Coordination,Cognition,Bed Mobility,Transfers,Gait, Activity Tolerance Progress Towards Goals Slow Progress due to Medical Issues,Slow Progress due to Activity Tolerance Assessment Summary José Miguel is alert and up to the commode with nursing. He is using written communication on a piece of paper and gestures to communicate. He demonstrates increased awareness of his situation. Today he appears to question why he has a feeding tube. His functional strength is improving this visit with improved tolerance for standing and transfers. He continues to fatigue quickly and needs short rest breaks to complete simple activities or exercises. He shows good participation in therapy. Goals Bed Mobility Goal Standby Assistance Transfer Goal Contact Guard Assistance,Front Wheeled Walker Gait Goal Contact Guard Assistance,Front Wheel Walker Gait Distance 100 Days to Meet Goals 10 Frequency of Treatment Frequency Of Treatment Once a Day Treatment Plan Physical Therapy Treatment Plan Bed Mobility Training,Transfer Training,Gait Training, Therapeutic Exercise,Balance Retraining,Discharge Planning, Neuromuscular Re-ed, Coordination Retraining Precautions Other Precautions Contact precautions: MRSA, influenza A (+) Trach, PEG tube Recommendations To Nursing Amount of Assist Needed 1 Person Assist,2 Person Assist Discharge Recommendations PT Discharge Recommendations SNF Rehab Transportation Needs at Discharge Wheelchair/Cabulance
--- NOTE | 2022-11-25 12:07 | CM.DPNOTE ---
DCP Note According to Dr Contreras, patient is a good candidate for inpatient transfer where there is capability to manage his trach over the snf; this can be done at [facility] if patient eventually transitions from his [employer] Medicaid to a managed Medicaid ie [facility]. Dr Contreras plans to begin efforts for hospital to hospital transfer but acceptance and bed availability unknown Attempted email and phone contact w/daughter Radha; inquired about any progress on the [employer] finder to secure an alt. [employer] on patient's behalf? 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
[2022-11-25] MEDS: NICOTINE 7 MG PATCH TOP (13:28)
--- NOTE | 2022-11-25 14:22 | PM.PN.1 ---
Subjective Subjective Date Patient Seen: 11/25/22 Interval history: 61-year-old gentleman with hypertension, ankylosing spondylitis, heroin use, and alcohol dependence who was admitted with influenza a, bacterial pneumonia, acute hypoxic respiratory failure, and alcohol and heroin withdrawal symptoms.? He failed extubation on November 04 and required re-intubation.?Pt is status post trach and PEG tube placement on November 15. Extubated 11/21 and encephalopathy is much improved. There are difficulties in downsizing his tracheostomy at the moment and difficulties in finding placement given medical needs and insurance issues with LTAC. Exam Vital Signs (past 8 hours): - 11/25/22 09:47 11/25/22 09:24 11/25/22 09:24 Temperature 97.8 F Pulse Rate 51 L 51 L Respiratory Rate 17 Blood Pressure 95/57 L 89/55 L Pulse Oximetry 97 96 11/25/22 09:25 11/25/22 13:09 11/25/22 14:14 Temperature 97.7 F Pulse Rate 66 Respiratory Rate 16 Blood Pressure 95/57 L 97/62 97/62 Pulse Oximetry 97 Fraction of Inspired Oxygen 21 SaO2/FiO2 Ratio 461 Oxygen Delivery Method Humidification,Trach Collar,Blow By Oxygen Flow Rate 0 Narrative Exam Narrative: General: Patient is awake and sitting in hospital bed. Lungs: Clear to auscultation no wheezing rhonchi or rales. Heart: RRR no m/r/g Abdomen: Soft, NT ND Extremities: No edema no joint effusions Neurological: Improved communication writing today. Objective Labs Result Diagrams: 11/24/22 05:45 11/24/22 05:45 [facility] Medical History (Updated 11/18/22 @ 10:16 by Kb Anaya MD) Acid reflux Alcohol abuse Ankle pain Ankylosing spondylitis (1985) Ankylosing spondylitis Chronic back pain Foot pain Fracture cervical vertebra-closed GERD (gastroesophageal reflux disease) Hypertension Hypertension Muscle pain Tobacco use disorder, moderate, in early remission Surgical History History of open reduction and internal fixation (ORIF) procedure (2005) History of tonsillectomy Status post colonoscopy (2012) Status post incision and drainage Family History Father No problems noted. Mother Cancer Other Alcoholism Colorectal cancer Social History household members: family Smoking Status: Current every day smoker Assessment & Plan Assessment & Plan narrative: 1. Acute hypoxic respiratory failure, resolved Status post tracheostomy and PEG placement.? Continue trach collar as tolerated, will need trach downsized at some point PT/OT/ST consult LTAC referral but possibly could DC to SNF even home if family is capable of managing trach and feeding tube, may need transfer for continued weaning from trach depending on resources as outpatient. 2. Bilateral bacterial pneumonia, bacterial [place] to be superinfection in the setting of influenza A.? Patient is on Zosyn therapy as noted above, completed 10 day therapy on 11/23.? Chest CT 11/18 consistent with resolving pneumonia. 3. Acute metabolic encephalopathy, acute ETOH and heroin withdrawal, resolved Improving mentation, further tapered gabapentin to 300 mg q.d. which was started for ETOH withdrawal, and stop after 3 days Continue on Seroquel 150 mg b.i.d. per telehealth recommendations and monitor QT level, could perhaps start tapering Seroquel as well 4. Septic shock and shock possibly due to sedatives, resolved -patient off of pressors and remaining normotensive, 11/22 tapered midodrine to 10 mg t.i.d., 11/24 stopped midodrine 5. Protein calorie malnutrition Patient remains on tube feeds which he is tolerating well.? He is moving his bowels regularly.? MiraLax 17 g daily through tube. 6. Normocytic anemia, eosinophilia, thrombocytosis Hemoglobin remained stable, platelets coming down, eosinophilia possibly medication related, no evidence of parasitic infection/DRESS syndrome.? No rash or other concerning symptoms.? Continue to monitor. Tubes/Lines: Trach- placed 11/15 PEG - placed 11/15 Midline-placed 11/20 hidalgo cath-placed 10/30, dc'd 11/22 central line - dc'd 11/22 Time Spent With Patient Critical Care time: I spent a total of [] minutes of critical care time on this patient's care today; this time is exclusive of procedural time. Quality VTE Deep Vein Thrombosis/Pulmonary Embolism Present on Admission: No
--- NOTE | 2022-11-25 15:03 | PC.NURSE ---
Assumed care of pt at 1330. A&Ox4 using pen and paper, no vocalization. CMS intact throughout, no c/o SOB or pain. Blow by oxygen to trach site. Tube feeding completed, tubing changed and new container hung, peg tube patent, bowel sounds present.
[2022-11-25] MEDS: SODIUM CHLORIDE 0.9% FLUSH 10 ML IV (20:24)
[2022-11-26] VITALS: BP 98/72; PULSE 86; RESP 22; TEMP 36.8; O2SAT 99
[2022-11-26 04:00] VITALS: BP 90/61; PULSE 90; RESP 17; TEMP 36.7; O2SAT 99
[2022-11-26] MEDS: SODIUM CHLORIDE 0.9% FLUSH 10 ML IV ×3 (04:55→21:10)
[2022-11-26] MEDS: OXYCODONE IR 5 MG TABLET 10 MG TUBE ×4 (05:11→23:59)
--- NOTE | 2022-11-26 05:23 | PC.NURSE ---
Patient is oriented to self, birthdate, age, month and year. Thought date was 12/29/22 and that he is in [place]. Did not know why he was in the hospital. Is unable to speak related to tracheostomy but communicates via writing; is able to understand and follow directions. Breath sound are coarse and he has intermittent congested sounding cough; is being suctioned prn by RT. Does not always leave humidifying cuff over trach. HR irregular. BT present and abdomen is soft/flat. Urinated using urinal; denies dysuria. Is able to turn himself in bed. Stood at bedside with walker and 1 assist to urinate but gait not assessed. Tube feeding via PEG tube was stopped at 0100 and will be off for 8 hours per dietary notes. SCD's not being used as patient becomes restless when they are on. Does complain of neck pain rating severity as 8/10 and was medicated with oxycodone with good results. Fall risk score is high and bed alarm is activated. Currently on contact isolation due to being MRSA positive in nares.
[2022-11-26 05:40] LABS: Add Manual Diff / Slide Review NO; Basophils Absolute Auto 100 /uL (0-100); Basophils Percent Auto 1.5 % (0-2); Eosinophils Absolute Auto 400 /uL (0-450); Eosinophils Percent Auto 5.8 % (2-4); Hematocrit 34.1 % (41-53); Hemoglobin 11.4 g/dL (13.5-17.5); Lymphocytes Absolute Auto 1800 /uL (1100-4500); Lymphocytes Percent Auto 27.3 % (25-40); Mean Corpuscular HGB Conc 33.4 % (30-36); Mean Corpuscular Hemoglobin 29.8 PG (26-34); Mean Corpuscular Volume 89.1 fL (80-100); Monocytes Absolute Auto 500 /uL (0-900); Monocytes Percent Auto 6.8 % (3-14); Neutrophils Absolute Auto 3900 /uL (1500-7000); Neutrophils Percent Auto 58.6 % (50-75); Platelet Count 486 X10^3/uL (150-400); Red Blood Cell Count 3.83 X10^6/uL (4.5-5.9); Red Cell Distribution Width 16.8 % (11.6-14.8); White Blood Cell Count 6.7 X10^3/uL (4.5-11.0)
[2022-11-26 05:47] LABS: BUN Creatinine Ratio 26.4 (6-22); Blood Urea Nitrogen 14 mg/dL (9-20); Carbon Dioxide 29 mmol/L (22-32); Chloride 100 mmol/L (98-107); Estimated Glomerular Filt Rate > 60 mL/min (>60); Glucose 91 mg/dL (80-110); HEMOLYSIS < 15 (0-50); Magnesium 1.8 mg/dL (1.6-2.3); Potassium 3.6 mmol/L (3.4-5.1); Sodium 138 mmol/L (137-145)
[2022-11-26 07:41] VITALS: BP 97/71; PULSE 91; RESP 24; TEMP 36.6; O2SAT 98
--- NOTE | 2022-11-26 08:49 | PM.PN.1 ---
Subjective Subjective Date Patient Seen: 11/26/22 Interval history: 61-year-old gentleman with hypertension, ankylosing spondylitis, heroin use, and alcohol dependence who was admitted with influenza a, bacterial pneumonia, acute hypoxic respiratory failure, and alcohol and heroin withdrawal symptoms.? He failed extubation on November 04 and required re-intubation.?Pt is status post trach and PEG tube placement on November 15. Extubated 11/21 and encephalopathy is much improved. There are difficulties in downsizing his tracheostomy at the moment and difficulties in finding placement given medical needs and insurance issues with LTAC. Exam Vital Signs (past 8 hours): - 11/26/22 04:00 11/26/22 07:41 Temperature 98.1 F 97.8 F Pulse Rate 90 91 H Respiratory Rate 17 24 Blood Pressure 90/61 97/71 Pulse Oximetry 99 98 Fraction of Inspired Oxygen 21 SaO2/FiO2 Ratio 461 Oxygen Delivery Method Room Air Oxygen Flow Rate 0 Narrative Exam Narrative: General: Patient is awake and sitting in hospital bed. Lungs: Clear to auscultation no wheezing rhonchi or rales. Heart: RRR no m/r/g Abdomen: Soft, NT ND Extremities: No edema no joint effusions Neurological: Improved communication writing today. Objective Labs Result Diagrams: 11/26/22 05:29 11/26/22 05:29 Labs: Laboratory Results - last 24 hr 11/26/22 11/26/22 05:29 05:29 WBC 6.7 RBC 3.83 L Hgb 11.4 L Hct 34.1 L MCV 89.1 MCH 29.8 MCHC 33.4 RDW 16.8 H Plt Count 486 H Neut % (Auto) 58.6 Lymph % (Auto) 27.3 [place] % (Auto) 6.8 Eos % (Auto) 5.8 H Baso % (Auto) 1.5 Neut # (Auto) 3900 Lymph # (Auto) 1800 [place] # (Auto) 500 Eos # (Auto) 400 Baso # (Auto) 100 Sodium 138 Potassium 3.6 Chloride 100 Carbon Dioxide 29 BUN 14 Creatinine 0.53 L Estimated GFR > 60 BUN/Creatinine Ratio 26.4 H Glucose 91 Calcium 9.0 Magnesium 1.8 PFSH Medical History (Updated 11/18/22 @ 10:16 by Kb Anaya MD) Acid reflux Alcohol abuse Ankle pain Ankylosing spondylitis (1985) Ankylosing spondylitis Chronic back pain Foot pain Fracture cervical vertebra-closed GERD (gastroesophageal reflux disease) Hypertension Hypertension Muscle pain Tobacco use disorder, moderate, in early remission Surgical History History of open reduction and internal fixation (ORIF) procedure (2005) History of tonsillectomy Status post colonoscopy (2012) Status post incision and drainage Family History Father No problems noted. Mother Cancer Other Alcoholism Colorectal cancer Social History household members: family Smoking Status: Current every day smoker Assessment & Plan Assessment & Plan narrative: 1. Acute hypoxic respiratory failure, resolved Status post tracheostomy and PEG placement.? Continue trach collar as tolerated, will need trach downsized at some point PT/OT/ST consult LTAC referral but possibly could DC to SNF even home if family is capable of managing trach and feeding tube, may need transfer for continued weaning from trach depending on resources as outpatient. 2. Bilateral bacterial pneumonia, bacterial [place] to be superinfection in the setting of influenza A.? Patient is on Zosyn therapy as noted above, completed 10 day therapy on 11/23.? Chest CT 11/18 consistent with resolving pneumonia. 3. Acute metabolic encephalopathy, acute ETOH and heroin withdrawal, resolved Improving mentation, further tapered gabapentin to 300 mg q.d. which was started for ETOH withdrawal, and stop after 3 days Continue on Seroquel 150 mg b.i.d. per teleintensivist recommendations and monitor QT level, though will start trying to taper seroquel now that he is much improved to 100 mg BID starting this evening will continue to monitor. 4. Septic shock and shock possibly due to sedatives, resolved -patient off of pressors and remaining normotensive, 11/22 tapered midodrine to 10 mg t.i.d., 11/24 stopped midodrine 5. Protein calorie malnutrition Patient remains on tube feeds which he is tolerating well.? He is moving his bowels regularly.? MiraLax 17 g daily through tube. 6. Normocytic anemia, eosinophilia, thrombocytosis Hemoglobin remained stable, platelets coming down, eosinophilia possibly medication related, no evidence of parasitic infection/DRESS syndrome.? No rash or other concerning symptoms.? Continue to monitor. H/h remains stable / improving on today's laboratory results which were reviewed. Tubes/Lines: Trach- placed 11/15 PEG - placed 11/15 Midline-placed 11/20 [place] cath-placed 10/30, dc'd 11/22 central line - dc'd 11/22 Time Spent With Patient Critical Care time: I spent a total of [] minutes of critical care time on this patient's care today; this time is exclusive of procedural time. Quality VTE Deep Vein Thrombosis/Pulmonary Embolism Present on Admission: No
[2022-11-26] MEDS: FOLIC ACID 1 MG TABLET PO (09:00)
[2022-11-26] MEDS: GABAPENTIN 300 MG CAPSULE TUBE (09:00)
[2022-11-26] MEDS: ENOXAPARIN 40 MG/0.4 ML SYRINGE SUBCUT (09:00)
[2022-11-26] MEDS: NICOTINE 7 MG PATCH TOP (09:00)
[2022-11-26] MEDS: MULTIVITAMIN 1 TABLET 1 TAB PO (09:00)
[2022-11-26] MEDS: PANTOPRAZOLE 40 MG VIAL IV (09:00)
[2022-11-26] MEDS: QUETIAPINE 100 MG TABLET 150 MG TUBE (09:01)
--- NOTE | 2022-11-26 10:40 | PT-IP ANOTE ---
Attempted to see pt at 1030. RN states he had his pain medication 1 hour prior. Pt is too sleepy to meaningfully participate. Will follow up later today.
--- NOTE | 2022-11-26 10:42 | DIET.CONS2 ---
Dietary Inpatient Consultation Note Admission Date: 10/30/2022 20:22 Pt tolerating intermittent TF at goal. Continue with feeding plan. Diet: 11/15/22 Dinner Tube Feeding Diet Diet Modifications: TF Supplement type: Glucerna 1.5 leroy TF mode of delivery: Continuous Starting flow rate mL/hr: 20 Flow rate goal mL/hr: 68 Titration Schedule to reach Goal Rate: increase by 10mL q8h as tolerated Max total daily volume in mL: 130 Free fluid: 100 Free Water Frequency: Q4H Comment: run from 0500 till 2100 then none for next 8 hrs Nutrition Type of Feeding Tube PEG 11/26/22 09:00 Type of Feeding Tube PEG 11/24/22 11:00 Electronically Signed by: Pati Parikh 11/26/22 10:42 Clinical Dietitian [address] [address]
--- NOTE | 2022-11-26 11:35 | CM.DPNOTE ---
Discharge Planning note: Left voicemail this morning for dtr Radha, no return call. Patient had pain med this am and is sedated now but has been more alert and somewhat oriented. He can possibly select his own healthplan even though daughter has been working on but we do not know of her current progress. Delilah asked admission counselors to come and assist patient in getting the appropriate Medicaid plan (such as [facility]) to be able to discharge to an acute rehab setting such as [place]. Plan: Follow up on above and with daughter. Meet with patient when not sedated. Valentina Almaguer RN/DCP
--- NOTE | 2022-11-26 14:32 | OT.IP.EVAL ---
Current Diagnoses Sepsis, unspecified organism (10/30/22) Delirium due to known physiological condition (10/30/22) Nicotine dependence, unspecified, in remission (10/30/22) Chronic pain due to trauma (10/30/22) Chronic respiratory failure with hypoxia (10/30/22) Respiratory failure, unspecified, unspecified whether with hypoxia or hypercapnia (10/30/22) Gastro-esophageal reflux disease without esophagitis (10/30/22) Patient's other noncompliance with medication regimen (10/30/22) Tracheostomy status (10/30/22) Surgery Performed Operation Date: 11/15/22 11:15 Actual Procedures p Tracheostomy(Not Applicable) - Alyssia Barbour MD s Peg Tube Insertion(Not Applicable) - Alyssia Barbour MD Past Medical History (Last Reviewed 11/11/22 @ 10:52 by Corey Masters MD) Acid reflux Alcohol abuse Ankle pain Ankylosing spondylitis (1985) Ankylosing spondylitis Chronic back pain Foot pain Fracture cervical vertebra-closed GERD (gastroesophageal reflux disease) Hypertension Hypertension Muscle pain Tobacco use disorder, moderate, in early remission Surgical History (Last Reviewed 11/11/22 @ 10:52 by Corey Masters MD) History of open reduction and internal fixation (ORIF) procedure (2005) History of tonsillectomy Status post colonoscopy (2012) Status post incision and drainage Occupational Therapy Inpatient Evaluation/Re-Eval M1 PT/OT-IP Prior Functional Status Start: 11/04/22 14:07 Freq: NEEDED Status: Active Protocol: Document 11/23/22 09:53 [facility] (Rec: 11/23/22 16:04 [facility] [id number]) Medical Review Prior Functional Status Medical History Reviewed Yes Communication pt with trach and unable to verbalize needs at this time but able to follow directions and able to nod/shake head to answer questions Mobility and Gait unable to get info from pt but per EMR: pt is independent with all mobilities and ambulation without AD Social History Household Members family Additional Social History Comment unable to obtain PLOF and home set up M2 OT-IP Current Condition Start: 11/23/22 15:51 Freq: Status: Active Protocol: Document 11/23/22 09:53 [facility] (Rec: 11/23/22 16:04 [facility] [id number]) Occupational Therapy Current Condition Current Condition Evaluation Date 11/23/22 Treatment Diagnosis PNA, influenza, hypoxia Diagnosis Onset Date 10/30/22 M3 OT- IP Subjective and Pain Start: 11/23/22 15:51 Freq: Status: Active Protocol: Document 11/26/22 14:31 [facility] (Rec: 11/26/22 14:49 [facility] [id number]) OT- Subjective Occupational Therapy Visit Type Type Treatment Note Visit Start Time 14:05 Visit Stop Time 14:31 Total Visit Minutes 26 Occupational Therapy Visit Comments Patient Comments Pt asleep but able to awaken and agreed to get up for Ot session. OT Pain Assessment Pain When Pain Assessed At Rest Pain Present Pain Present Denied Pain M4 OT- IP ADL's Start: 11/23/22 15:51 Freq: Status: Active Protocol: Document 11/26/22 14:31 [facility] (Rec: 11/26/22 14:49 [facility] [id number]) OT [id number] Comments OT Self-Feeding Comments NPO OT ADL-Grooming General Evaluation Grooming Ability Standby Assistance Areas Needing Assistance Retrieving/Set-up of Grooming Items Comments OT Grooming Comments Pt able to sit at the edge of the bed for grooming needs after set-up assist. OT ADL-Oral Care General Eval Oral Care Ability Standby Assistance Areas of Assistance Retrieving/Set-Up of Items Comments Oral Care Comments Set-up and pt able to swab his mouth out. OT ADL-Dressing General Eval Lower Body Dressing Ability Maximum Assistance Areas Needing Assistance Socks Comments OT Dressing Comments Pt having loss of balance when trying to lean over to reposition in his socks. OT ADL-Bathing Comments OT Bathing Comments Pt requesting to have assist to wash his back off. M5 OT- IP IADL's Start: 11/23/22 15:51 Freq: Status: Active Protocol: Document 11/23/22 09:53 [facility] (Rec: 11/23/22 16:04 [facility] [id number]) OT-Instrumental Activities of Daily Living Home Safety Awareness Awareness of Need for Assistance at Home Decreased Awareness M6 OT- IP Functional Cognition Start: 11/23/22 15:51 Freq: Status: Active Protocol: Document 11/26/22 14:31 [facility] (Rec: 11/26/22 14:49 [facility] [id number]) Cognitive Factors Limiting Selfcare Function Cognitive Ability Level of Alertness Alert Cognitive Comments Cognitive Assessment Comments Pt able to follow commands and able to write on paper in order to state his needs. M7 OT- IP Mobility and Balance Start: 11/23/22 15:51 Freq: Status: Active Protocol: Document 11/26/22 14:31 [facility] (Rec: 11/26/22 14:49 [facility] [id number]) OT- Bed Mobility Assessment Supine to Sit Supine to Sit Assist Minimal Assistance Sit to Supine Sit to Supine Assist Standby Assistance OT-Transfer Assessment Sit to and From Stand Sit to and from Stand Standby Assistance,Contact Guard Assistance Comments Mobility Comments Pt HIRO to help get his trunk upright when coming up to sit at the edge of the bed. CGA to help come to stand and vc to push up with his right hand on the bed to stand. At the end of the session pt able to come to stand with close SBA. OT- Balance Assessment Sitting Balance and Reactions Static Sitting Balance Ability Fair Dynamic Sitting Balance Ability Poor Standing Balance and Reactions Static Standing Balance Ability Fair M9 OT- IP Assessment and Plan Start: 11/23/22 15:51 Freq: Status: Active Protocol: Document 11/26/22 14:31 [facility] (Rec: 11/26/22 14:49 [facility] [id number]) OT Summary Assessment and Plan Potential Rehabilitation Potential Good Analytic Complexity at Evaluation High Summary OT Impairments Pain,Range of Motion,Strength, Balance,Functional Cognition, Functional Mobility,Grooming, Dressing,Toileting,Bathing, Toilet Transfers,Shower Transfers,Activity Tolerance Progress Towards Goals Progressing Toward Goals,Slow Progress due to Medical Issues Assessment Summary Pt now one person assist for bed mobility and transfer needs . Pt today able to do grooming and oral care needs of swabbing his mouth out with swab. Pt is very cooperative and motivated to get better. Pt will benefit from skilled rehab versus facility that can adequately provide therapy for his trach needs. Goals Grooming Goal Independent Dressing Goal Independent Toileting Goal Independent Bathing Goal Independent Toilet Transfer Goal Independent Shower Transfer Goal Independent Days to Meet Goals 25 Frequency of Treatment Frequency Of Treatment Once a Day Treatment Plan OT Treatment Plan ADL Training,Functional Cognition Training,Functional Mobility,Patient/Family Education,Discharge Planning Other Treatment Recommendations and Next Pt to stand at the sink for Treatment Focus grooming needs with FWW and SBA. Discharge Recommendations OT Discharge Recommendations SNF Rehab Transportation Needs at Discharge Wheelchair/Cabulance
--- NOTE | 2022-11-26 17:14 | PT.IPTN ---
Current Diagnoses Sepsis, unspecified organism (10/30/22) Delirium due to known physiological condition (10/30/22) Nicotine dependence, unspecified, in remission (10/30/22) Chronic pain due to trauma (10/30/22) Chronic respiratory failure with hypoxia (10/30/22) Respiratory failure, unspecified, unspecified whether with hypoxia or hypercapnia (10/30/22) Gastro-esophageal reflux disease without esophagitis (10/30/22) Patient's other noncompliance with medication regimen (10/30/22) Tracheostomy status (10/30/22) Surgery Performed Operation Date: 11/15/22 11:15 Actual Procedures p Tracheostomy(Not Applicable) - Alyssia Barbour MD s Peg Tube Insertion(Not Applicable) - Alyssia Barbour MD Physical Therapy Treatment Note M2 PT-IP Current Condition Start: 11/04/22 14:07 Freq: NEEDED Status: Active Protocol: Document 11/23/22 09:50 AB (Rec: 11/23/22 13:19 AB [id number]) Physical Therapy Current Condition Current Condition Evaluation Date 11/23/22 Treatment Diagnosis PNA; influenza A; ETOH adn heroin w/d; difficulty in walking Onset Date 10/30/22 M3 PT-IP Subjective Start: 11/04/22 14:07 Freq: NEEDED Status: Active Protocol: Document 11/26/22 17:14 AW (Rec: 11/26/22 17:30 AW [id number]) Subjective Physical Therapy Visit Type Type Treatment Note Visit Start Time 16:50 Visit Stop Time 17:14 Total Visit Minutes 24 Physical Therapy Visit Comments Patient Comments Pt communicates via writing that he would like to use the urinal. M4 PT-IP Mobility and Gait Start: 11/04/22 14:07 Freq: NEEDED Status: Active Protocol: Document 11/26/22 17:14 AW (Rec: 11/26/22 17:30 AW [id number]) PT-Bed Mobility Assessment Supine to Sit Supine to Sit Minimal Assistance,1 Person Assistance,Bedrails Scooting Scooting to Edge of Bed Standby Assistance PT-Transfer Assessment Sit to and From Stand Sit to and from Stand Minimal Assistance,1 Person Assistance,Use of Upper Extremities Equipment Transfer Assistive Device Gait Belt,Front Wheeled Walker Transfers Transfer Destination Chair Transfer Technique Stand Step Pivot Transfer Ability Level of Assist Minimal Assistance,Use of Upper Extremities Comments Mobility Comments Pt was lying in bed with tube feed in progress as PT arrived . He requested to stand to use the urinal. Min A for supine to sit with pt using bedrails. PT managed lines as pt stood min A. CGA for balance as pt used urinal, standing ~90 seconds. Pt sat EOB when finished. After brief seated rest, pt agreed to stand again . He stood and used FWW for support as he completed standing march in place, heel lifts, and 1/4 squats x 10. He sat again for one minute rest break before standing to complete another set of all exercises. After another brief seated rest, pt stood and used FWW to transfer to the chair min A. Pt was left with call light and communication tools in reach. Curtain was left open for high visibility from nurses station. Gait Assessment Gait Gait Assistance Required: Minimum Assistance Distance (Feet) 5 Assistive Devices Assistive Device Gait Belt,Front Wheeled Walker Gait Deviations General Gait Pattern Decreased Stride Length, Decreased Feet Clearance, Flexed Trunk Factors Limiting Gait Function Factors Limiting Gait Function Decreased Activity Tolerance, Decreased Strength,Poor Balance Comments Gait Comments See mobility comments for details. PT-Balance Assessment Sitting Balance and Reactions Static Sitting Balance Ability Good Dynamic Sitting Balance Ability Fair Standing Balance and Reactions Static Standing Balance Ability Fair Dynamic Standing Balance Ability Fair Device Used FWW M5 PT-IP Objective Assessments Start: 11/04/22 14:07 Freq: NEEDED Status: Active Protocol: Document 11/23/22 09:50 AB (Rec: 11/23/22 13:19 AB [id number]) Orientation Orientation/Cognition Level of Alertness Alert Safety Awareness Decreased Safety Awareness Comments pt with trach and unable to talk at this time Gross Range of Motion Lower Extremity ROM Assessment Within Functional Limits Strength Lower Extremity Strength Assessment Bilaterally Impaired Hip 3+/5 Knee 3+/5 Muscle Tone Muscle Tone WNL Yes M6 PT-IP Treatment Start: 11/04/22 14:07 Freq: NEEDED Status: Active Protocol: Document 11/26/22 17:14 AW (Rec: 11/26/22 17:30 AW [id number]) Physical Therapy Treatment Other Treatments Other Treatment Performed Standing march, heel lift, and 1/4 squat - 10 reps x 2 sets with FWW for support. M7 PT-IP Assessment and Plan Start: 11/04/22 14:07 Freq: NEEDED Status: Active Protocol: Document 11/26/22 17:14 AW (Rec: 11/26/22 17:30 AW [id number]) PT Summary Assessment and Plan Summary Impairments Pain,ROM,Strength,Balance, Coordination,Cognition,Bed Mobility,Transfers,Gait, Activity Tolerance Progress Towards Goals Slow Progress due to Medical Issues,Slow Progress due to Activity Tolerance Assessment Summary José Miguel is more alert this PM and able to tolerate more activity in standing. He required only CGA for balance while using FWW to complete standing exercises. PT recommending SNF rehab to improve strength and mobility. Goals Bed Mobility Goal Standby Assistance Transfer Goal Contact Guard Assistance,Front Wheeled Walker Gait Goal Contact Guard Assistance,Front Wheel Walker Gait Distance 100 Days to Meet Goals 10 Frequency of Treatment Frequency Of Treatment Once a Day Treatment Plan Physical Therapy Treatment Plan Bed Mobility Training,Transfer Training,Gait Training, Therapeutic Exercise,Balance Retraining,Discharge Planning, Neuromuscular Re-ed, Coordination Retraining Other Recommendations and Next Treatment Continue standing balance and Focus strengthening activities. Precautions Other Precautions Contact precautions: MRSA, influenza A (+) Recommendations To Nursing Amount of Assist Needed 1 Person Assist Discharge Recommendations PT Discharge Recommendations SNF Rehab Transportation Needs at Discharge Wheelchair/Cabulance
[2022-11-26 19:54] VITALS: PULSE 74; RESP 16; O2SAT 98
[2022-11-26 20:00] VITALS: BP 100/74; PULSE 80; RESP 16; TEMP 37.1; O2SAT 99
[2022-11-26] MEDS: QUETIAPINE 100 MG TABLET TUBE (21:10)
[2022-11-26 23:50] VITALS: BP 76/46
[2022-11-26] MEDS: LACTATED RINGERS 500 ML IV (23:59)
[2022-11-27] VITALS (8 sets, daily range): BP systolic 74–132; BP diastolic 47–72; PULSE 78–91; RESP 15–20; TEMP 36.6–37.4; O2SAT 97–100
[2022-11-27] MEDS: SODIUM CHLORIDE 0.9% FLUSH 10 ML IV ×5 (00:04→21:07)
--- NOTE | 2022-11-27 04:05 | RT ---
Addendum entered by Vicky Conroy 11/27/22 04:20: Pt's RN notified at 0419. Original Note: At 0402, noted pt with trach ties completely removed from trach tube and heated aerosol trach collar removed. The trach tube itself was in place. RT re-secured airway with trach ties. Self-decanulation has not occured. Pt stable and continues on heated aerosol trach collar. Will cont. to monitor.
[2022-11-27] MEDS: LACTATED RINGERS 500 ML IV (04:26)
[2022-11-27] MEDS: OXYCODONE IR 5 MG TABLET 10 MG TUBE ×3 (05:18→23:39)
[2022-11-27 05:19] LABS: BUN Creatinine Ratio 23.3 (6-22); Blood Urea Nitrogen 14 mg/dL (9-20); Calcium 9.1 mg/dL (8.4-10.2); Carbon Dioxide 29 mmol/L (22-32); Chloride 101 mmol/L (98-107); Estimated Glomerular Filt Rate > 60 mL/min (>60); Glucose 92 mg/dL (80-110); HEMOLYSIS < 15 (0-50); Magnesium 1.9 mg/dL (1.6-2.3); Potassium 3.8 mmol/L (3.4-5.1); Sodium 137 mmol/L (137-145)
--- NOTE | 2022-11-27 05:19 | RT ---
At 0519, pt asleep while on heated aerosol trach collar, stable, no distress noted.
[2022-11-27 05:31] LABS: Add Manual Diff / Slide Review NO; Basophils Absolute Auto 100 /uL (0-100); Basophils Percent Auto 2.3 % (0-2); Eosinophils Absolute Auto 600 /uL (0-450); Hematocrit 30.8 % (41-53); Hemoglobin 10.3 g/dL (13.5-17.5); Lymphocytes Absolute Auto 2000 /uL (1100-4500); Lymphocytes Percent Auto 30.9 % (25-40); Mean Corpuscular HGB Conc 33.4 % (30-36); Mean Corpuscular Hemoglobin 29.7 PG (26-34); Mean Corpuscular Volume 88.9 fL (80-100); Monocytes Absolute Auto 600 /uL (0-900); Monocytes Percent Auto 9.3 % (3-14); Neutrophils Absolute Auto 3000 /uL (1500-7000); Neutrophils Percent Auto 47.5 % (50-75); Platelet Count 426 X10^3/uL (150-400); Red Blood Cell Count 3.46 X10^6/uL (4.5-5.9); Red Cell Distribution Width 16.6 % (11.6-14.8); White Blood Cell Count 6.3 X10^3/uL (4.5-11.0)
--- NOTE | 2022-11-27 05:46 | PC.NURSE ---
Patient is alert and oriented. Is unable to communicate verbally due to tracheostomy but is able to communicate in writing. Breath sounds are coarse with RA sat on humidified air is 99%. Is not always leaving the humidifier cuff over trach so reminded of purpose but continues to remove. Has not been coughing tonight and did not request any suctioning. HR sounding slightly irregular. Denies nausea. BT present and abdomen is soft. PEG tube patent; feeding stopped at 2100 and restarted this morning at 0500. Voiding per urinal and denies dysuria. Is able to turn himself in bed. When out of bed he uses the walker w/1 assist. Refusing to wear bilateral calf SCD's. BP at 0000 check was 87/51 on right arm and 76/46 on left arm; Dr Robert was informed and fluid bolus administered with ending BP of 90/59. This morning his BP was 74/47 with MAP of 56; Dr Robert informed and 2nd fluid bolus was administered with ending BP of 112/72. Dr Robert was in to see patient and patient's only complaint was his hands and feet are cold and hands have some tingling but reports he has had this issue since past cervical surgery. Did complain of left ear pain earlier and was relieved with use of oxycodone; Dr Robert informed of patient's complaint. Fall risk score is high and bed alarm is activated. On contact precautions as had MRSA in his nares. HOB is elevated to 30 degrees.
[2022-11-27 07:37] LABS: Lactate (Lactic Acid) 0.8 mmol/L (0.7-2.1)
[2022-11-27] MEDS: ENOXAPARIN 40 MG/0.4 ML SYRINGE SUBCUT (09:57)
[2022-11-27] MEDS: MULTIVITAMIN 1 TABLET 1 TAB PO (09:58)
[2022-11-27] MEDS: QUETIAPINE 100 MG TABLET TUBE (09:58)
[2022-11-27] MEDS: GABAPENTIN 300 MG CAPSULE TUBE (09:58)
[2022-11-27] MEDS: FOLIC ACID 1 MG TABLET PO (09:58)
[2022-11-27] MEDS: PANTOPRAZOLE 40 MG VIAL IV (09:59)
--- NOTE | 2022-11-27 10:26 | PT.IPTN ---
Current Diagnoses Sepsis, unspecified organism (10/30/22) Delirium due to known physiological condition (10/30/22) Nicotine dependence, unspecified, in remission (10/30/22) Chronic pain due to trauma (10/30/22) Chronic respiratory failure with hypoxia (10/30/22) Respiratory failure, unspecified, unspecified whether with hypoxia or hypercapnia (10/30/22) Gastro-esophageal reflux disease without esophagitis (10/30/22) Patient's other noncompliance with medication regimen (10/30/22) Tracheostomy status (10/30/22) Surgery Performed Operation Date: 11/15/22 11:15 Actual Procedures p Tracheostomy(Not Applicable) - Alyssia Barbour MD s Peg Tube Insertion(Not Applicable) - Alyssia Barbour MD Physical Therapy Treatment Note M2 PT-IP Current Condition Start: 11/04/22 14:07 Freq: NEEDED Status: Active Protocol: Document 11/23/22 09:50 AB (Rec: 11/23/22 13:19 AB [id number]) Physical Therapy Current Condition Current Condition Evaluation Date 11/23/22 Treatment Diagnosis PNA; influenza A; ETOH adn heroin w/d; difficulty in walking Onset Date 10/30/22 M3 PT-IP Subjective Start: 11/04/22 14:07 Freq: NEEDED Status: Active Protocol: Document 11/27/22 10:10 LJ (Rec: 11/27/22 10:26 [id number]) Subjective Physical Therapy Visit Type Type Treatment Note Visit Start Time 09:44 Visit Stop Time 10:09 Total Visit Minutes 27 Notes pt seated in chair upon arrival. Physical Therapy Visit Comments Patient Comments Pt willing to do exercises with therapy M4 PT-IP Mobility and Gait Start: 11/04/22 14:07 Freq: NEEDED Status: Active Protocol: Document 11/27/22 10:10 LJ (Rec: 11/27/22 10:26 LJ [id number]) PT-Transfer Assessment Sit to and From Stand Sit to and from Stand Standby Assistance,1 Person Assistance,Use of Upper Extremities Transfers Transfer Destination Chair Transfer Ability Level of Assist Standby Assistance,Use of Upper Extremities Comments Mobility Comments Pt sitting on BSC just transfering to chair. Pt willing to perform exercises from chair. Communicats he used to do physical therapy at [facility] for his spine. Pt performed 10 sit>stand focusing on eccentric control and limited use of UEs. Pt able to limit use of UEs to left hand only. Eccentric control improved with last few reps of sit>stand. See treatment section for exercises. Gait Assessment Comments Gait Comments No gait today PT-Balance Assessment Sitting Balance and Reactions Static Sitting Balance Ability Good Dynamic Sitting Balance Ability Fair Standing Balance and Reactions Static Standing Balance Ability Fair Dynamic Standing Balance Ability Fair Device Used FWW M5 PT-IP Objective Assessments Start: 11/04/22 14:07 Freq: NEEDED Status: Active Protocol: Document 11/23/22 09:50 AB (Rec: 11/23/22 13:19 AB [id number]) Orientation Orientation/Cognition Level of Alertness Alert Safety Awareness Decreased Safety Awareness Comments pt with trach and unable to talk at this time Gross Range of Motion Lower Extremity ROM Assessment Within Functional Limits Strength Lower Extremity Strength Assessment Bilaterally Impaired Hip 3+/5 Knee 3+/5 Muscle Tone Muscle Tone WNL Yes M6 PT-IP Treatment Start: 11/04/22 14:07 Freq: NEEDED Status: Active Protocol: Document 11/27/22 10:10 JAMES (Rec: 11/27/22 10:26 JAMES [id number]) Physical Therapy Treatment Exercises Exercises Ankle Pumps,Gluteal Sets, Seated Knee Flexion/Extension Other Treatments Other Treatment Performed sit>stand x10, standing hip extension using FWW for support, seated resisted hip AB/AD with resistance provided first by therapist then by pt , abdominal crunches in chair; 5 reps x2 M7 PT-IP Assessment and Plan Start: 11/04/22 14:07 Freq: NEEDED Status: Active Protocol: Document 11/27/22 10:10 JAMES (Rec: 11/27/22 10:26 AJMES [id number]) PT Summary Assessment and Plan Summary Impairments Pain,ROM,Strength,Balance, Coordination,Cognition,Bed Mobility,Transfers,Gait, Activity Tolerance Progress Towards Goals Slow Progress due to Medical Issues,Slow Progress due to Activity Tolerance Assessment Summary Pt requiring SBA for sit<> stand exercises and use of FWW for standing hip extension. Fatigue with seated exercises so pt took several short rest breaks. Pt instructed to perform seated exercises several times a day to keep muscles activated. He will benefit from SNF rehab to improve strength, mobility, and function. Goals Bed Mobility Goal Standby Assistance Transfer Goal Contact Guard Assistance,Front Wheeled Walker Gait Goal Contact Guard Assistance,Front Wheel Walker Gait Distance 100 Days to Meet Goals 10 Frequency of Treatment Frequency Of Treatment Once a Day Treatment Plan Physical Therapy Treatment Plan Bed Mobility Training,Transfer Training,Gait Training, Therapeutic Exercise,Balance Retraining,Discharge Planning, Neuromuscular Re-ed, Coordination Retraining Other Recommendations and Next Treatment Continue standing balance and Focus strengthening activities. Precautions Other Precautions Contact precautions: MRSA, influenza A (+) Recommendations To Nursing Amount of Assist Needed 1 Person Assist Discharge Recommendations PT Discharge Recommendations SNF Rehab
--- NOTE | 2022-11-27 11:50 | SLP.IPNOTE ---
Spoke with Dr. Contreras re: pt status with trach. Pt is communicating via writing. he is also using lemon glycerin swab to elicit swallow response. MD recommended that ST stay involved with pt but on hold until Passy-Asher valve can be obtained, placed and pt is ready for speech/swallow exercises and therapy. Pt will need MBSS in order to determine safety of swallow with P-M valve.
--- NOTE | 2022-11-27 12:02 | OT.IPNOTE ---
Pt at this time to tired to get up for OT, pt having lots of secretion and nursing able to come and check on him. To check on the pt later.
--- NOTE | 2022-11-27 13:14 | P.PN_ITS ---
Subjective Subjective Date Patient Seen: 11/27/22 Interval history: 61-year-old gentleman with hypertension, ankylosing spondylitis, heroin use, and alcohol dependence who was admitted with influenza a, bacterial pneumonia, acute hypoxic respiratory failure, and alcohol and heroin withdrawal symptoms.? He failed extubation on November 04 and required re-intubation.?Pt is status post trach and PEG tube placement on November 15. Extubated 11/21 and encephalopathy is much improved. There are difficulties in downsizing his tracheostomy at the moment and difficulties in finding placement given medical needs and insurance issues with LTAC. Trach was sutured into place during initial procedure, have asked surgery to remove sutures so that trach can be changed and a tom valve could be applied. Overnight he was mildly hypotensive, but improved with 1L of fluid boluses and appears well today. Labs are unremarkable. He complains of pain in his left ear this morning, attempting to locate otoscope in the hospital for further evaluation. Exam Vital Signs (past 8 hours): - 11/27/22 05:30 11/27/22 08:34 11/27/22 08:00 Temperature 98 F Pulse Rate 80 Respiratory Rate 16 Blood Pressure 112/72 108/65 Pulse Oximetry 100 Oxygen Delivery Method Trach Collar Fraction of Inspired Oxygen 21 SaO2/FiO2 Ratio 461 Oxygen Delivery Method Trach Collar Oxygen Flow Rate 0 Narrative Exam Narrative: General: Patient is awake and sitting in hospital bed. Lungs: Clear to auscultation no wheezing rhonchi or rales. Heart: RRR no m/r/g Abdomen: Soft, NT ND Extremities: No edema no joint effusions Neurological: no focal deficits, communicates with written word. Objective Labs Result Diagrams: 11/27/22 04:25 11/27/22 04:25 Labs: Laboratory Results - last 24 hr 11/27/22 11/27/22 11/27/22 04:21 04:25 04:25 WBC 6.3 RBC 3.46 L Hgb 10.3 L Hct 30.8 L MCV 88.9 MCH 29.7 MCHC 33.4 RDW 16.6 H Plt Count 426 H Neut % (Auto) 47.5 L Lymph % (Auto) 30.9 Treasure % (Auto) 9.3 Eos % (Auto) 10.0 H Baso % (Auto) 2.3 H Neut # (Auto) 3000 Lymph # (Auto) 2000 Treasure # (Auto) 600 Eos # (Auto) 600 H Baso # (Auto) 100 Sodium 137 Potassium 3.8 Chloride 101 Carbon Dioxide 29 BUN 14 Creatinine 0.60 L Estimated GFR > 60 BUN/Creatinine Ratio 23.3 H Glucose 92 Lactate 0.8 Calcium 9.1 Magnesium 1.9 [facility] Medical History (Updated 11/18/22 @ 10:16 by Kb Anaya MD) Acid reflux Alcohol abuse Ankle pain Ankylosing spondylitis (1985) Ankylosing spondylitis Chronic back pain Foot pain Fracture cervical vertebra-closed GERD (gastroesophageal reflux disease) Hypertension Hypertension Muscle pain Tobacco use disorder, moderate, in early remission Surgical History History of open reduction and internal fixation (ORIF) procedure (2005) History of tonsillectomy Status post colonoscopy (2012) Status post incision and drainage Family History Father No problems noted. Mother Cancer Other Alcoholism Colorectal cancer Social History household members: family Smoking Status: Current every day smoker Assessment & Plan Assessment & Plan narrative: 1. Acute hypoxic respiratory failure, resolved Status post tracheostomy and PEG placement.? Continue trach collar as tolerated, will need trach downsized at some point, to facilitate this have asked general surgery to remove tracheostomy sutures so that a trach exchange could occur. PT/OT/ST consult LTAC referral but possibly could DC to SNF even home if family is capable of managing trach and feeding tube, may need transfer for continued weaning from trach depending on resources as outpatient. 2. Bilateral bacterial pneumonia, bacterial [place] to be superinfection in the setting of influenza A.? Patient is on Zosyn therapy as noted above, completed 10 day therapy on 11/23.? Chest CT 11/18 co nsistent with resolving pneumonia. 3. Acute metabolic encephalopathy, acute ETOH and heroin withdrawal, resolved Improving mentation, further tapered gabapentin to 300 mg q.d. which was started for ETOH withdrawal, and stop after 3 days Continue on Seroquel 150 mg b.i.d. per teleintensivist recommendations and monitor QT level, though will start trying to taper seroquel now that he is much improved to 50 mg BID starting this evening will continue to monitor. 4. Septic shock and shock possibly due to sedatives, resolved -patient off of pressors and remaining normotensive, 11/22 tapered midodrine to 10 mg t.i.d., 11/24 stopped midodrine 5. Protein calorie malnutrition Patient remains on tube feeds which he is tolerating well.? He is moving his bowels regularly.? MiraLax 17 g daily through tube. 6. Normocytic anemia, eosinophilia, thrombocytosis Hemoglobin remained stable, platelets coming down, eosinophilia possibly medication related, no evidence of parasitic infection/DRESS syndrome.? No rash or other concerning symptoms.? Continue to monitor. H/h remains stable / improving on today's laboratory results which were reviewed. Tubes/Lines: Trach- placed 11/15 PEG - placed 11/15 Midline-placed 11/20 hidalgo cath-placed 10/30, dc'd 11/22 central line - dc'd 11/22 Time Spent With Patient Critical Care time: I spent a total of [] minutes of critical care time on this patient's care today; this time is exclusive of procedural time. Quality VTE Deep Vein Thrombosis/Pulmonary Embolism Present on Admission: No
--- NOTE | 2022-11-27 16:04 | DIET.CONS2 ---
Dietary Inpatient Consultation Note Admission Date: 10/30/2022 20:22 RD recommends change to terminal carman formula of Jevity 1.2 starting on 11/29/22. RD and [employer] discussing option to bolus feed into PEG regarding risk for aspiration as pt with tracheostomy and ineffective swallow at this time. Pt currently tolerating intermittent feeding with pump assist. RD to update nursing and physicians for approval of plan on 11/28/22 if indicated. Diet: 11/15/22 Dinner Tube Feeding Diet Diet Modifications: TF Supplement type: Glucerna 1.5 leroy TF mode of delivery: Continuous Starting flow rate mL/hr: 20 Flow rate goal mL/hr: 68 Titration Schedule to reach Goal Rate: increase by 10mL q8h as tolerated Max total daily volume in mL: 130 Free fluid: 100 Free Water Frequency: Q4H Comment: run from 0500 till 2100 then none for next 8 hrs Nutrition Type of Feeding Tube PEG 11/26/22 09:00 Electronically Signed by: Pati Parikh 11/27/22 16:04 Clinical Dietitian [address] [id number]
--- NOTE | 2022-11-27 16:04 | CM.DPNOTE ---
Discharge Planning Note: Patient's son Yifan Do in this afternoon. Created POLST form with patient and son. Provided DPOA form to nurse to give to patient. Patient saying he wants to go home but no plan for who would manage PEG tube and trach. Patient is on tf list for neuro/manage trach and ST. Son Yifan states he would be able to help his father on return home. Yifan states patient lives on [address] and has own place there. Spoke with patient's daughter Radha, this morning asking for an update on her alternate Medicaid search. She states the [facility] was closed over 3-day holiday weekend and are open today and she will be calling them for help. Asked her to update us as soon as possible. Spoke with Erin in Admissions she has been in email touch with Radha regarding healthplan finder. Plan: Follow up with Radha in morning regarding Medicaid transition. Continue to work on discharge plan. Any hope of transfer? Home resources? and follow up with outpatient ST? DPOA paperwork Valentina Almaguer RN/DCP
--- NOTE | 2022-11-27 16:38 | OT.IP.TRT ---
Current Diagnoses Sepsis, unspecified organism (10/30/22) Delirium due to known physiological condition (10/30/22) Nicotine dependence, unspecified, in remission (10/30/22) Chronic pain due to trauma (10/30/22) Chronic respiratory failure with hypoxia (10/30/22) Respiratory failure, unspecified, unspecified whether with hypoxia or hypercapnia (10/30/22) Gastro-esophageal reflux disease without esophagitis (10/30/22) Patient's other noncompliance with medication regimen (10/30/22) Tracheostomy status (10/30/22) Surgery Performed Operation Date: 11/15/22 11:15 Actual Procedures p Tracheostomy(Not Applicable) - Alyssia Barbour MD s Peg Tube Insertion(Not Applicable) - Alyssia Barbour MD Occupational Therapy Treatment Note M2 OT-IP Current Condition Start: 11/23/22 15:51 Freq: Status: Active Protocol: Document 11/23/22 09:53 [facility] (Rec: 11/23/22 16:04 [facility] [id number]) Occupational Therapy Current Condition Current Condition Evaluation Date 11/23/22 Treatment Diagnosis PNA, influenza, hypoxia Diagnosis Onset Date 10/30/22 M3 OT- IP Subjective and Pain Start: 11/23/22 15:51 Freq: Status: Active Protocol: Document 11/27/22 16:38 [facility] (Rec: 11/27/22 17:19 [facility] [id number]) OT- Subjective Occupational Therapy Visit Type Type Treatment Note Visit Start Time 16:38 Visit Stop Time 17:04 Total Visit Minutes 26 Occupational Therapy Visit Comments Patient Comments Pt agreeing to do sponge bath from the edge of the bed and standing with FWW. Patient/Caregiver Goals To go shopping for new clothes . OT Pain Assessment Pain When Pain Assessed At Rest Pain Present Pain Present Denied Pain M4 OT- IP ADL's Start: 11/23/22 15:51 Freq: Status: Active Protocol: Document 11/27/22 16:38 [facility] (Rec: 11/27/22 17:19 [facility] [id number]) OT [id number] Comments OT Self-Feeding Comments NPO OT ADL-Grooming Comments OT Grooming Comments NOt performed OT ADL-Oral Care Comments Oral Care Comments Not performed. OT ADL-Dressing General Eval Lower Body Dressing Ability Minimal Assistance Areas Needing Assistance Pants/Shorts Comments OT Dressing Comments Assist to help pull up is short from his ankles to within reach while standing and then able to cathie over his hips and tie to fasten. OT ADL-Toileting General Evaluation Toileting Ability Standby Assistance Areas Needing Assistance Empty Catheter or Colostomy Comments OT Toileting Comments Pt able to stand and use the urinal on his own. OT ADL-Bathing Bathing Type Bathing Type Sponge Bath General Evaluation Bathing Ability Minimal Assistance Comments OT Bathing Comments Pt able to do most of sponge bathing and able to stand with close SBA/cga while washing pericare needs on his own. Pt needing assist to wash/dry his back at this time. M5 OT- IP IADL's Start: 11/23/22 15:51 Freq: Status: Active Protocol: Document 11/23/22 09:53 [facility] (Rec: 11/23/22 16:04 [facility] [id number]) OT-Instrumental Activities of Daily Living Home Safety Awareness Awareness of Need for Assistance at Home Decreased Awareness M6 OT- IP Functional Cognition Start: 11/23/22 15:51 Freq: Status: Active Protocol: Document 11/27/22 16:38 [facility] (Rec: 11/27/22 17:19 [facility] [id number]) Cognitive Factors Limiting Selfcare Function Cognitive Comments Cognitive Assessment Comments Pt able to follow commands and able to write on paper in order to state his needs. M7 OT- IP Mobility and Balance Start: 11/23/22 15:51 Freq: Status: Active Protocol: Document 11/27/22 16:38 [facility] (Rec: 11/27/22 17:19 [facility] [id number]) OT- Bed Mobility Assessment Supine to Sit Supine to Sit Assist Standby Assistance Sit to Supine Sit to Supine Assist Standby Assistance OT-Transfer Assessment Sit to and From Stand Sit to and from Stand Standby Assistance Comments Mobility Comments Today SBA for bed mobility need and able to come to stand on his own with close SBA. OT- Balance Assessment Sitting Balance and Reactions Static Sitting Balance Ability Good Dynamic Sitting Balance Ability Good Standing Balance and Reactions Static Standing Balance Ability Fair M8 OT- IP Objective Assessments Start: 11/23/22 15:51 Freq: Status: Active Protocol: Document 11/23/22 09:53 [facility] (Rec: 11/23/22 16:04 [facility] [id number]) OT Gross Range of Motion Upper Extremity Range of Motion Assessment Within Functional Limits OT Strength Upper Extremity Strength Assessment Bilaterally Impaired Comments Strength Comments BUE strength 4-/5 to 4/5 from proximal to distal. M9 OT- IP Assessment and Plan Start: 11/23/22 15:51 Freq: Status: Active Protocol: Document 11/27/22 16:38 [facility] (Rec: 11/27/22 17:19 [facility] [id number]) OT Summary Assessment and Plan Potential Rehabilitation Potential Good Analytic Complexity at Evaluation High Summary OT Impairments Pain,Range of Motion,Strength, Balance,Functional Cognition, Functional Mobility,Grooming, Dressing,Toileting,Bathing, Toilet Transfers,Shower Transfers,Activity Tolerance Progress Towards Goals Progressing Toward Goals Assessment Summary Pt able to do his bed mobility needs on his own today and able to do most of sponge bathing needs while seated and standing with FWW and close SBA to occasional CGA for balance. Pt doing much better with his ADl and mobility needs. Pending medical needs of PEG /Trach will determine his dispostion needs more so at this time. Goals Grooming Goal Independent Dressing Goal Independent Toileting Goal Independent Bathing Goal Independent Toilet Transfer Goal Independent Shower Transfer Goal Independent Days to Meet Goals 20 Frequency of Treatment Frequency Of Treatment Once a Day Treatment Plan OT Treatment Plan ADL Training,Functional Cognition Training,Functional Mobility,Patient/Family Education,Discharge Planning Other Treatment Recommendations and Next Pt to stand at the sink for Treatment Focus grooming needs with FWW and SBA. Discharge Recommendations OT Discharge Recommendations SNF Rehab Transportation Needs at Discharge Wheelchair/Cabulance
--- NOTE | 2022-11-27 17:00 | PC.NURSE ---
Dr Masters removed final suture to tracheostomy. R.T. notified. Patient tolerated well.
[2022-11-27] MEDS: QUETIAPINE 100 MG TABLET 50 MG TUBE (21:06)
[2022-11-27] MEDS: NICOTINE 7 MG PATCH TOP (23:40)
[2022-11-28] VITALS: BP 84/60; PULSE 91; RESP 17; TEMP 36.4; O2SAT 99
[2022-11-28] MEDS: ACETAMINOPHEN SUSP 650 MG/20.3 ML UDC TUBE (03:03)
[2022-11-28 04:00] VITALS: BP 84/58; PULSE 93; RESP 16; TEMP 36.6; O2SAT 96
[2022-11-28 05:18] LABS: Add Manual Diff / Slide Review NO; Basophils Absolute Auto 200 /uL (0-100); Basophils Percent Auto 2.3 % (0-2); Eosinophils Absolute Auto 800 /uL (0-450); Eosinophils Percent Auto 12.3 % (2-4); Hematocrit 29.8 % (41-53); Lymphocytes Absolute Auto 2000 /uL (1100-4500); Lymphocytes Percent Auto 30.1 % (25-40); Mean Corpuscular HGB Conc 33.6 % (30-36); Mean Corpuscular Hemoglobin 29.7 PG (26-34); Mean Corpuscular Volume 88.5 fL (80-100); Monocytes Absolute Auto 500 /uL (0-900); Monocytes Percent Auto 7.9 % (3-14); Neutrophils Absolute Auto 3100 /uL (1500-7000); Neutrophils Percent Auto 47.4 % (50-75); Platelet Count 391 X10^3/uL (150-400); Red Blood Cell Count 3.36 X10^6/uL (4.5-5.9); Red Cell Distribution Width 16.4 % (11.6-14.8); White Blood Cell Count 6.6 X10^3/uL (4.5-11.0)
[2022-11-28 05:27] LABS: BUN Creatinine Ratio 26.4 (6-22); Blood Urea Nitrogen 14 mg/dL (9-20); Calcium 9.2 mg/dL (8.4-10.2); Carbon Dioxide 29 mmol/L (22-32); Chloride 98 mmol/L (98-107); Estimated Glomerular Filt Rate > 60 mL/min (>60); Glucose 92 mg/dL (80-110); HEMOLYSIS < 15 (0-50); Magnesium 1.8 mg/dL (1.6-2.3); Potassium 3.8 mmol/L (3.4-5.1); Sodium 134 mmol/L (137-145)
[2022-11-28] MEDS: OXYCODONE IR 5 MG TABLET 10 MG TUBE ×3 (06:22→20:55)
--- NOTE | 2022-11-28 06:32 | PC.NURSE ---
Biology Intern Note-Patient is A/O x3, communicates well by writing, family at bedside in the evening. Medicated with Seroquel for anxiety and sleep, given Tylenol elixer and oxycodone for pain. Nicotine patch on. TF stopped at 9pm, restarted at 5am. BP did dip down to 84/60(68) at 2300 after receiving HS meds and oxycodone, patient asymptomatic.
[2022-11-28] MEDS: PANTOPRAZOLE 40 MG VIAL IV (08:24)
[2022-11-28] MEDS: FOLIC ACID 1 MG TABLET PO (08:25)
[2022-11-28] MEDS: MULTIVITAMIN 1 TABLET 1 TAB PO (08:25)
[2022-11-28] MEDS: QUETIAPINE 100 MG TABLET 50 MG TUBE ×2 (08:25→20:55)
[2022-11-28] MEDS: ENOXAPARIN 40 MG/0.4 ML SYRINGE SUBCUT (08:25)
[2022-11-28] MEDS: GABAPENTIN 300 MG CAPSULE TUBE (08:25)
[2022-11-28] MEDS: SODIUM CHLORIDE 0.9% FLUSH 10 ML IV ×2 (08:26→22:57)
--- NOTE | 2022-11-28 08:26 | PC.NURSE ---
0826 - nicoderm patch administered at 0825 to right arm. previous administration documented at roughly 2100 on 11/27/21 did not allow me to properly scan this morning's patch
--- NOTE | 2022-11-28 11:02 | P.PN_ITS ---
Subjective Subjective Date Patient Seen: 11/28/22 Interval history: Patient had trach capped by RT and is now speaking. He is very eager to go home. Speech did MBS today and he tolerated it with some minimal penetration but able to clear with cough. Now on dysphagia diet. Exam Vital Signs (past 8 hours): - 11/28/22 04:00 11/28/22 09:00 Temperature 97.8 F Pulse Rate 93 H Respiratory Rate 16 Blood Pressure 84/58 L Pulse Oximetry 96 Oxygen Delivery Method Room Air Humidification Trach Collar Blow By Fraction of Inspired Oxygen 21 SaO2/FiO2 Ratio 461 Oxygen Delivery Method Room Air,Humidification,Trach Collar,Blow By Oxygen Flow Rate 0 Narrative Exam Narrative: General: Patient is awake and sitting in hospital bed. Speaking. Lungs: Clear to auscultation no wheezing rhonchi or rales. Heart: RRR no m/r/g Abdomen: Soft, NT ND Extremities: No edema no joint effusions Neurological: no focal deficits Objective Labs Result Diagrams: 11/28/22 05:00 11/28/22 05:00 Labs: Laboratory Results - last 24 hr 11/28/22 11/28/22 05:00 05:00 WBC 6.6 RBC 3.36 L Hgb 10.0 L Hct 29.8 L MCV 88.5 MCH 29.7 MCHC 33.6 RDW 16.4 H Plt Count 391 Neut % (Auto) 47.4 L Lymph % (Auto) 30.1 [place] % (Auto) 7.9 Eos % (Auto) 12.3 H Baso % (Auto) 2.3 H Neut # (Auto) 3100 Lymph # (Auto) 2000 [place] # (Auto) 500 Eos # (Auto) 800 H Baso # (Auto) 200 H Sodium 134 L Potassium 3.8 Chloride 98 Carbon Dioxide 29 BUN 14 Creatinine 0.53 L Estimated GFR > 60 BUN/Creatinine Ratio 26.4 H Glucose 92 Calcium 9.2 Magnesium 1.8 PFSH Medical History (Updated 11/18/22 @ 10:16 by Kb Anaya MD) Acid reflux Alcohol abuse Ankle pain Ankylosing spondylitis (1985) Ankylosing spondylitis Chronic back pain Foot pain Fracture cervical vertebra-closed GERD (gastroesophageal reflux disease) Hypertension Hypertension Muscle pain Tobacco use disorder, moderate, in early remission Surgical History History of open reduction and internal fixation (ORIF) procedure (2005) History of tonsillectomy Status post colonoscopy (2012) Status post incision and drainage Family History Father No problems noted. Mother Cancer Other Alcoholism Colorectal cancer Social History household members: family Smoking Status: Current every day smoker Assessment & Plan Assessment & Plan narrative: 1. Acute hypoxic respiratory failure, resolved Status post tracheostomy and PEG placement.? Continue trach collar as tolerated, will need trach downsized at some point, to facilitate this have asked general surgery to remove tracheostomy sutures so that a trach exchange could occur. PT/OT/ST consult LTAC referral but possibly could DC to SNF even home if family is capable of managing trach and feeding tube, may need transfer for continued weaning from trach depending on resources as outpatient. 2. Bilateral bacterial pneumonia, resolved [place] to be superinfection in the setting of influenza A.? Patient is on Zosyn therapy as noted above, completed 10 day therapy on 11/23.? Chest CT 11/18 consistent with resolving pneumonia. 3. Acute metabolic encephalopathy, acute ETOH and heroin withdrawal, resolved Improving mentation, further tapered gabapentin to 300 mg q.d. which was started for ETOH withdrawal, and stop after 3 days Continue on Seroquel 150 mg b.i.d. per teleintensivist recommendations and monitor QT level, though will start trying to taper seroquel now that he is much improved to 50 mg BID starting this evening will continue to monitor. 4. Septic shock and shock possibly due to sedatives, resolved -patient off of pressors and remaining normotensive, 11/22 tapered midodrine to 10 mg t.i.d., 11/24 stopped midodrine 5. Protein calorie malnutrition Patient remains on tube feeds which he is tolerating well.? He is moving his bowels regularly.? MiraLax 17 g daily through tube. 6. Normocytic anemia, eosinophilia, thrombocytosis Hemoglobin remained stable, platelets coming down, eosinophilia possibly medication related, no evidence of parasitic infection/DRESS syndrome.? No rash or other concerning symptoms.? Continue to monitor. H/h remains stable / improving on today's laboratory results which were reviewed. 7. Tracheostomy Tolerating capped trial today and patient able to speak. Speech assisted MBS showed miminal penetration during swallow but able to clear with cough. Now on dysphagia diet. Tubes/Lines: Trach- placed 11/15 PEG - placed 11/15 Midline-placed 11/20 [place] cath-placed 10/30, dc'd 11/22 central line - dc'd 11/22 Dispo: 1-2 days pending tolerating capped trach and advancement of diet Time Spent With Patient Critical Care time: I spent a total of [] minutes of critical care time on this patient's care today; this time is exclusive of procedural time. Quality VTE Deep Vein Thrombosis/Pulmonary Embolism Present on Admission: No
--- NOTE | 2022-11-28 11:59 | PT.IPTN ---
Current Diagnoses Sepsis, unspecified organism (10/30/22) Delirium due to known physiological condition (10/30/22) Nicotine dependence, unspecified, in remission (10/30/22) Chronic pain due to trauma (10/30/22) Chronic respiratory failure with hypoxia (10/30/22) Respiratory failure, unspecified, unspecified whether with hypoxia or hypercapnia (10/30/22) Gastro-esophageal reflux disease without esophagitis (10/30/22) Patient's other noncompliance with medication regimen (10/30/22) Tracheostomy status (10/30/22) Surgery Performed Operation Date: 11/15/22 11:15 Actual Procedures p Tracheostomy(Not Applicable) - Alyssia Barbour MD s Peg Tube Insertion(Not Applicable) - Alyssia Barbour MD Physical Therapy Treatment Note M2 PT-IP Current Condition Start: 11/04/22 14:07 Freq: NEEDED Status: Active Protocol: Document 11/23/22 09:50 AB (Rec: 11/23/22 13:19 AB [id number]) Physical Therapy Current Condition Current Condition Evaluation Date 11/23/22 Treatment Diagnosis PNA; influenza A; ETOH adn heroin w/d; difficulty in walking Onset Date 10/30/22 M3 PT-IP Subjective Start: 11/04/22 14:07 Freq: NEEDED Status: Active Protocol: Document 11/28/22 11:41 LJ (Rec: 11/28/22 11:59 LJ [id number]) Subjective Physical Therapy Visit Type Type Treatment Note Visit Start Time 10:26 Visit Stop Time 10:54 Total Visit Minutes 28 Physical Therapy Visit Comments Patient Comments Pt willing to do exercises with therapy M4 PT-IP Mobility and Gait Start: 11/04/22 14:07 Freq: NEEDED Status: Active Protocol: Document 11/28/22 11:41 LJ (Rec: 11/28/22 11:59 LJ [id number]) PT-Transfer Assessment Sit to and From Stand Sit to and from Stand Standby Assistance,1 Person Assistance,Use of Upper Extremities Transfers Transfer Destination Bed,Chair Transfer Ability Level of Assist Standby Assistance,Use of Upper Extremities Comments Mobility Comments Pt given written list of suggested exercises to complete during stay in hospital and after DC home. Pt acknowledged understanding of all exercises and completed several repititions of each. Took several rest breaks occasionally. Gait Assessment Gait Gait Assistance Required: Standby Assistance Distance (Feet) 3 Assistive Devices Assistive Device Front Wheeled Walker Gait Deviations General Gait Pattern Decreased Stride Length, Decreased Feet Clearance Factors Limiting Gait Function Factors Limiting Gait Function Decreased Activity Tolerance, Decreased Strength,Poor Balance PT-Balance Assessment Sitting Balance and Reactions Static Sitting Balance Ability Good Dynamic Sitting Balance Ability Fair Standing Balance and Reactions Static Standing Balance Ability Fair Dynamic Standing Balance Ability Fair Device Used FWW M5 PT-IP Objective Assessments Start: 11/04/22 14:07 Freq: NEEDED Status: Active Protocol: Document 11/23/22 09:50 AB (Rec: 11/23/22 13:19 AB [id number]) Orientation Orientation/Cognition Level of Alertness Alert Safety Awareness Decreased Safety Awareness Comments pt with trach and unable to talk at this time Gross Range of Motion Lower Extremity ROM Assessment Within Functional Limits Strength Lower Extremity Strength Assessment Bilaterally Impaired Hip 3+/5 Knee 3+/5 Muscle Tone Muscle Tone WNL Yes M6 PT-IP Treatment Start: 11/04/22 14:07 Freq: NEEDED Status: Active Protocol: Document 11/28/22 11:41 JAMES (Rec: 11/28/22 11:59 JAMES [id number]) Physical Therapy Treatment Exercises Exercises Gluteal Sets,Seated Knee Flexion/Extension Education Education Provided Safety Other Treatments Other Treatment Performed sit>stand x10, standing hip extension using FWW for support, seated resisted hip AB/AD with resistance, abdominal crunches in chair, marching 20-30 sec with ~30 sec rest x4; 5-10 reps each exercise M7 PT-IP Assessment and Plan Start: 11/04/22 14:07 Freq: NEEDED Status: Active Protocol: Document 11/28/22 11:41 JAMES (Rec: 11/28/22 11:59 [id number]) PT Summary Assessment and Plan Summary Impairments Pain,ROM,Strength,Balance, Coordination,Cognition,Bed Mobility,Transfers,Gait, Activity Tolerance Progress Towards Goals Slow Progress due to Medical Issues,Slow Progress due to Activity Tolerance Assessment Summary Pt completed all exercises with several rest breaks. He was able to pace himself. Instructed to perform exercises as able. Goals Bed Mobility Goal Standby Assistance Transfer Goal Contact Guard Assistance,Front Wheeled Walker Gait Goal Contact Guard Assistance,Front Wheel Walker Gait Distance 100 Days to Meet Goals 10 Frequency of Treatment Frequency Of Treatment Once a Day Treatment Plan Physical Therapy Treatment Plan Bed Mobility Training,Transfer Training,Gait Training, Therapeutic Exercise,Balance Retraining,Discharge Planning, Neuromuscular Re-ed, Coordination Retraining Other Recommendations and Next Treatment Continue standing balance and Focus strengthening activities. Precautions Other Precautions Contact precautions: MRSA, influenza A (+) Recommendations To Nursing Amount of Assist Needed 1 Person Assist Discharge Recommendations PT Discharge Recommendations SNF Rehab
[2022-11-28 12:00] VITALS: BP 139/91; PULSE 96; RESP 18; TEMP 36.7; O2SAT 95
--- NOTE | 2022-11-28 13:36 | DI.RAD.S_ITS ---
PROCEDURE: FL BARIUM SWALLOW W SPEECH INDICATIONS: assess swallow s/p tracheostomy COMPARISON: None. TECHNIQUE: Examination was conducted in conjunction with speech pathology per standard protocol. In the lateral projection, filming was performed of the patient swallowing. AP projection filming may also be performed with patient swallowing. COMPARISON: FINDINGS: Function: The oral preparatory phase appears normal, with proper containment. The subsequent oral propulsive phase, pharyngeal phase, and esophageal phase of swallowing also appear normal with all proffered substances. Small to moderate amount of residue is seen collecting at the level of a likely low. Single episodes of aspiration is noted during swallowing of thin liquid using a straw. Morphology: No cricopharyngeal bar is identified. No cervical esophageal webs. No Zenker's diverticulum. No strictures. IMPRESSION: As above, please refer to speech pathology nodes for more detailed findings. Dictated by: Orlando Samano M.D. on 11/28/2022 at 14:33 Approved by: Orlando Samano M.D. on 11/28/2022 at 14:34
--- NOTE | 2022-11-28 13:41 | DIET.CONS2 ---
Addendum entered by Pati Parikh 11/28/22 15:19: spoke with SUPERVISOR [employer]. pt assigned dysphagia puree/nectar thick diet- small portions, no meat, no straw. Plan to continue TF as listed below on , weaning down as tolerating more PO intake. Original Note: Dietary Inpatient Consultation Note Admission Date: 10/30/2022 20:22 Pt sitting at bedside shaving his face when RD visited today. Pt nearing d/c. Upon speaking with Speech Therapy, continued concern for aspiration with bolus feeding into PEG, reccs to continue intermittent feeding until pt has had more speech therapy to strengthen musculature and better protect airway. This RD recommends formula change from Glucerna 1.5 to Jevity 1.2 as pt metabolically stable with prospective long to moderate term need of continued PEG feeding to meet nutrition needs in the home setting. Recc continuous pump assisted feeds into PEG over 12 hours (8am-8pm) at rate of 115mL/h with 120mL free water flushes q4h. Feed plus flushes provide 1656 kcals (28kcal/kg), 77g PRO (1.3g/kg per PCM), 1114mL feed water, 720mL free water in flushes for total fluids of 1834mL (30mL/kg). Recc initiating new feeding plan morning of 11/29/22. Please follow all feeding procedures including HOB >30 degrees while feeding and 30min after feeding ends. Electronically Signed by: Pati Parikh 11/28/22 13:41 Clinical [address] [address]
--- NOTE | 2022-11-28 13:48 | OT.IPNOTE ---
Checking on pt for OT, pt having member visit him.
[2022-11-28 16:59] VITALS: BP 127/56; PULSE 113; RESP 22; TEMP 36.6; O2SAT 94
--- NOTE | 2022-11-28 17:49 | ST.SWALLOW ---
Visit Care Team Role Provider Type Sanna Zurita DO Primary Care Provider Physician Specialty: Family Practice Address: [address] [place] [address], [address], [place], [address] Email: [email or web address] Jonathan Hines MD Other Providers Physician Specialty: Medical Address: Phone: Fax: Email: Greta Boyer MD Other Providers Physician Specialty: Medical Address: Phone: Fax: Email: Dre Saucedo MD Other Providers Physician Specialty: Medical Address: [address] [place], [address] Phone: Fax: Email: Jean Kim MD Other Providers Physician Specialty: Internal Medicine Address: Phone: Fax: Email: Rico Ribeiro MD Other Providers Physician Specialty: Medical Address: Phone: Fax: Email: Corey Masters MD Other Providers Physician Specialty: General Surgery Address: [address] [place] [address], [address] Email: [email or web address] Mati Fu MD Other Providers Physician Specialty: Internal Medicine Address: [address] [place] [address], [address] Phone: Fax: Email: @[email or web address] Kb Anaya MD Other Providers Physician Specialty: Internal Medicine Address: Phone: Fax: Email: Ghanshyam Oakes MD Other Providers Physician Specialty: Medical Address: Phone: Fax: Email: Chad Whitmore MD Other Providers Physician Specialty: Internal Medicine Address: [address] [place], [address] Phone: Fax: Email: Rodrigo Tate MD Other Providers Physician Specialty: Medical Address: [address], [address] Phone: Fax: Email: Shereen George MD Other Providers Physician Specialty: Medical Address: Phone: Fax: Email: Lisa Alatorre Other Providers Physician Specialty: Medical Address: Phone: Fax: Email: Angel Logan PA-C Emergency Provider Advanced Environmental Services Manager Referring Provider Specialty: EM Address: [address] [place], [place] [address], [place], [address] Email: [email or web address] 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 Porras Reason for Referral dysphagia Setting Setting Acute Care Patient Information Identification Type Name,ID Wristband Patient History 61-year-old gentleman with hypertension, ankylosing spondylitis, heroin use, and alcohol dependence who was admitted with influenza a, bacterial pneumonia, acute hypoxic respiratory failure, and alcohol and heroin withdrawal symptoms.? He failed extubation on November 04 and required re- intubation.?Pt is status post trach and PEG tube placement on November 15. Extubated and encephalopathy is much improved. There are difficulties in downsizing his tracheostomy at the moment and difficulties in finding placement given medical needs and insurance issues with LTAC . Trach was sutured into place during initial procedure, have asked surgery to remove sutures so that trach can be changed and a tom valve could be applied. trach eas capped today with pt able to produce voice immediately without difficulty. In order to determine safety with PO intake a Modified Barium Swallow study was ordered. Subjective Observations Pt was brought ot the fluoroscopy room seated in the fluoroscopy chair. The procedures and instructions were described for the patient , who indicated he understood and agreed to proceed. Patient Positioning Position View Lateral Imaging Lateral View Textures Administered Trials Presented Thin Liquid via Spoon,Thin Liquid via Cup,Thin Liquid via Straw,[place] Liquid via Spoon ,[place] Liquid via Cup,Pudding Thick Liquid via Spoon, Dysphagia Advanced Textures Oral Phase Source: MBSIMP (TM) (C) Bolus Specific Scoring Grid Lip Closure WFL Tongue Control During Bolus Hold WFL Bolus Prep/Mastication Mild Impairment Bolus Transport/Lingual Motion Minimal Impairment Oral Residue No Impairment (WNL) Nasal Regurgitation No Additional Oral Phase Observations Pt was missing many teeth. Pt' s dentition was in good hygiene . OME for form and function and DKS were observed to be mildly dyscoordinated. Pt was able to safely masticate a softened cookie in barium. Minimal oral residue was observed after trials. Pt chewed slowly and carefully. Bolus control and A-P transition were impacted by mild dyscoordination of lingual structures and tongue- rocking motion to begin transition posteriorly with the initial barium trial. Pharyngeal Phase Source: MBSIMP (TM) (C) Bolus Specific Scoring Grid Delayed Initiation of Pharyngeal Swallow No: premature spillage to the valeculla and the pyriform sinuses Soft Palate Elevation No Impairment (WNL) Tongue Base Strength/Range of Motion Mild Impairment Residue Along the Tongue Base Yes Clearance of Residue Along Tongue Base Mild Impairment Laryngeal Elevation Mild Impairment Anterior Hyoid Movement Mild Impairment Epiglottic Range of Motion Minimal Impairment Vallecular Residue Yes Clearance of Vallecular Residue Mild Impairment Laryngeal Vestibular Closure Minimal Impairment Pharyngeal Stripping Wave Minimal Impairment Posterior Pharyngeal Wall Residue Yes Clearance of Posterior Pharyngeal Wall Mild Impairment Residue Upper Esophageal Sphincter Opening WFL Residue in the Pyriform Sinuses Yes Clearance of Residue in the Pyriform Mild Impairment Sinuses Esophageal Clearance Upright Position Mild Impairment Pharyngoesophageal Backflow Observed No Additional Pharyngeal Phase Observations Base of tongue demonstrated reduced strength and ROM, negatively impacting the hyolaryngeal elevation and movement. Epiglolttis inversion was complete for small bolus sizes (teaspoon, single cup sip). With large boluses of liquids (with straw ) there was penetration into the laryngeal vestibule and tracheal aspiration x1. Aspiration and contrast were cleared with cued cough. Mild pooling of contrast was observed throughout the pharynx (valeculla, pyriform sinuses, posterior pharyngeal wall) and remained within the pharynx. A/P View Esophageal Observations Esophageal Function After each swallow, there was retroflow of contrast within the upper esophageal area proximal to the PES. . There was no observed flow back into the pharynx. Clinical Impressions Dysphagia Type Oropharyngeal dysphagia Findings pt presentwed with orpharyngeal dysphagia characterized by weak lingual and pharyngeal muscles which resulted in pharyngeal residue throughout the pharynx. It is likely that the pt's oropharyngeal structures are weakened by the extended time he was intubated. Increased strength and ROM is expected with swallow exercise instruction and use of the oropharynx for swallowing. Pt does continue with aspiration risk, especially with large swallows of thin liquids and/ or solids while his muscles are recovering from his extubation lack of use. PO intake appears to be safe with aspiration precautions and safe swallow strategies. Rehabilitation Potential Good Patient Appropriate for Therapy Yes: Recommend f/u dysphagia therapy via HH or outpatient services Recommendations Diet Liquids Order [place] Diet Order Dysphagia Blenderized Medication Recommendation Crushed in [place],One at a Time Additional Dietary Needs Single Sips,Controlled Sips,No Straws,Reminders to Use Strategies Aspiration Precautions Recommended Precautions Upright at 90 Degrees,Frequent Rest Periods,Small Bites/Sips ,Liquids from Cup Treatment Plan Therapy Recommendations Inpatient Speech Therapy, Outpatient Speech Therapy,Base of Tongue Exercises,Vocal Fold Adduction Exercises, Compensatory Strategy Education Compensatory Strategies Recommendations Sitting Upright (90 deg),No Straw,Liquids from Cup,Small Bites and Sips,Alternate Liquids/Solids Short Term Goals Pt education for safe swallowing and swallow exercises will be provided in verbal and written format for pt. Pt will safely tolerate PO intake without s/sx aspiration to meet hydration and nutrition needs. Placement Recommendation After Discharge Home,Custodial Facility, Home with Home Health
[2022-11-28 20:00] VITALS: BP 147/88; PULSE 74; RESP 17; TEMP 37.6; O2SAT 92
[2022-11-28 21:25] VITALS: PULSE 115; RESP 20; O2SAT 93
[2022-11-29] VITALS: BP 90/56; PULSE 100; RESP 17; O2SAT 99
[2022-11-29] MEDS: OXYCODONE IR 5 MG TABLET 10 MG TUBE (01:56)
[2022-11-29 04:00] VITALS: BP 92/51; PULSE 87; RESP 18; TEMP 36.6; O2SAT 95
--- NOTE | 2022-11-29 04:34 | PC.NURSE ---
O2 sat low while sleeping placed on 3L n/c and O2 sats improving. suctioned via trach one time troughout the night with moderate amount of clear fluid removed.
[2022-11-29] MEDS: ACETAMINOPHEN SUSP 650 MG/20.3 ML UDC TUBE (06:29)
[2022-11-29] MEDS: PANTOPRAZOLE 40 MG VIAL IV (08:18)
[2022-11-29] MEDS: MULTIVITAMIN 1 TABLET 1 TAB PO (08:18)
[2022-11-29] MEDS: ENOXAPARIN 40 MG/0.4 ML SYRINGE SUBCUT (08:18)
[2022-11-29] MEDS: FOLIC ACID 1 MG TABLET PO (08:18)
[2022-11-29] MEDS: QUETIAPINE 100 MG TABLET 50 MG TUBE (08:18)
[2022-11-29] MEDS: GABAPENTIN 300 MG CAPSULE TUBE (08:18)
[2022-11-29] MEDS: SODIUM CHLORIDE 0.9% FLUSH 10 ML IV ×2 (08:19→20:25)
[2022-11-29] MEDS: NICOTINE 7 MG PATCH TOP (08:25)
--- NOTE | 2022-11-29 08:49 | P.PN_ITS ---
Subjective Subjective Date Patient Seen: 11/29/22 Time Patient Seen: 13:54 Interval history: Patient feeling better everyday. Now tolerating [facility] soft diet and trach has been capped for over 24 hours. Will speak with gen surg about trach removal. Exam Vital Signs (past 8 hours): - 11/29/22 04:00 Temperature 97.8 F Pulse Rate 87 Respiratory Rate 18 Blood Pressure 92/51 L Pulse Oximetry 95 Oxygen Flow Rate 2 Fraction of Inspired Oxygen 28 SaO2/FiO2 Ratio 332 Oxygen Delivery Method Room Air Oxygen Flow Rate 2 Narrative Exam Narrative: General: Patient is awake and sitting in hospital bed. Speaking. Trach is capped. Lungs: Diffuse coarse breath sounds. Heart: RRR no m/r/g Abdomen: Soft, NT ND, PEG tube in place Extremities: No edema no joint effusions Neurological: no focal deficits Objective Labs Result Diagrams: 11/28/22 05:00 11/28/22 05:00 [facility] Medical History (Updated 11/18/22 @ 10:16 by bK Anaya MD) Acid reflux Alcohol abuse Ankle pain Ankylosing spondylitis (1985) Ankylosing spondylitis Chronic back pain Foot pain Fracture cervical vertebra-closed GERD (gastroesophageal reflux disease) Hypertension Hypertension Muscle pain Tobacco use disorder, moderate, in early remission Surgical History History of open reduction and internal fixation (ORIF) procedure (2005) History of tonsillectomy Status post colonoscopy (2012) Status post incision and drainage Family History Father No problems noted. Mother Cancer Other Alcoholism Colorectal cancer Social History household members: family Smoking Status: Current every day smoker Assessment & Plan Assessment & Plan narrative: 1. Acute hypoxic respiratory failure Status post tracheostomy and PEG placement.? Now back on 2-3L NC since reinitiating diet. Concern for silent aspiration. Obtain CXR. Dr. Masters, gen surg to remove trach at bedside 2. Bilateral bacterial pneumonia, resolved [place] to be superinfection in the setting of influenza A.? Patient completed 10 day therapy of Zosyn on 11/23.? Chest CT 11/18 consistent with resolving pneumonia. 3. Acute metabolic encephalopathy, acute ETOH and heroin withdrawal, resolved Improving mentation, further tapered gabapentin to 300 mg q.d. which was started for ETOH withdrawal, and stopped after 3 days Continue on Seroquel 150 mg b.i.d. per teleintensivist recommendations and monitor QT level, though will start trying to taper seroquel now that he is much improved to 50 mg BID. Stopped on 11/29. 4. Septic shock and shock possibly due to sedatives, resolved -patient off of pressors and remaining normotensive, 11/22 tapered midodrine to 10 mg t.i.d., 11/24 stopped midodrine 5. Protein calorie malnutrition Patient remains on tube feeds which he is tolerating well.? He is moving his bowels regularly.? MiraLax 17 g daily through tube. 6. Normocytic anemia, eosinophilia, thrombocytosis Hemoglobin remained stable, platelets coming down, eosinophilia possibly medication related, no evidence of parasitic infection/DRESS syndrome.? No rash or other concerning symptoms.? Continue to monitor. H/h remains stable / improving on today's laboratory results which were reviewed. 7. Tracheostomy Tolerating capped trial starting 11/28 and patient able to speak. Gen surg to remove trach 11/29. Speech assisted MBS showed miminal penetration during swallow but able to clear with cough. Now on [facility] soft diet. Per gen surg PEG will need to stay in at least 1 month before removal due to risk of leaking following too soon removal. Tubes/Lines: Trach- placed 11/15, to be removed 11/29 PEG - placed 11/15 Midline-placed 11/20 [place] cath-placed 10/30, dc'd 11/22 central line - dc'd 11/22 Dispo: 1-2 days pending tolerating capped trach and advancement of diet. Time Spent With Patient Critical Care time: I spent a total of [] minutes of critical care time on this patient's care today; this time is exclusive of procedural time. Quality VTE Deep Vein Thrombosis/Pulmonary Embolism Present on Admission: No
[2022-11-29 09:00] VITALS: BP 124/63; PULSE 107; RESP 17; TEMP 37.3; O2SAT 93
[2022-11-29] MEDS: SODIUM CHLORIDE 0.9% 500 ML IV (09:40)
--- NOTE | 2022-11-29 09:50 | OT.IP.TRT ---
Current Diagnoses Sepsis, unspecified organism (10/30/22) Delirium due to known physiological condition (10/30/22) Nicotine dependence, unspecified, in remission (10/30/22) Chronic pain due to trauma (10/30/22) Chronic respiratory failure with hypoxia (10/30/22) Respiratory failure, unspecified, unspecified whether with hypoxia or hypercapnia (10/30/22) Gastro-esophageal reflux disease without esophagitis (10/30/22) Patient's other noncompliance with medication regimen (10/30/22) Tracheostomy status (10/30/22) Surgery Performed Operation Date: 11/15/22 11:15 Actual Procedures p Tracheostomy(Not Applicable) - Alyssia Barbour MD s Peg Tube Insertion(Not Applicable) - Alyssia Barbour MD Occupational Therapy Treatment Note M2 OT-IP Current Condition Start: 11/23/22 15:51 Freq: Status: Active Protocol: Document 11/23/22 09:53 [facility] (Rec: 11/23/22 16:04 [facility] [id number]) Occupational Therapy Current Condition Current Condition Evaluation Date 11/23/22 Treatment Diagnosis PNA, influenza, hypoxia Diagnosis Onset Date 10/30/22 M3 OT- IP Subjective and Pain Start: 11/23/22 15:51 Freq: Status: Active Protocol: Document 11/29/22 09:50 [facility] (Rec: 11/29/22 10:17 [facility] [id number]) OT- Subjective Occupational Therapy Visit Type Type Treatment Note Visit Start Time 09:02 Visit Stop Time 09:50 Total Visit Minutes 48 Occupational Therapy Visit Comments Patient Comments Pt in the process of eating breakfast. Patient/Caregiver Goals To go home. OT Pain Assessment Pain When Pain Assessed At Rest Pain Present Pain Present Denied Pain M4 OT- IP ADL's Start: 11/23/22 15:51 Freq: Status: Active Protocol: Document 11/29/22 09:50 [facility] (Rec: 11/29/22 10:17 [facility] [id number]) OT [id number] General Evaluation Self-Feeding Ability Standby Assistance Comments OT Self-Feeding Comments Set -up and supervision to monitor rate, and to be sure to take single sips when drinking nectar liquids. Noted delayed coughing after eating. Pt also having lots of secretions that he was spitting out as well. OT ADL-Oral Care General Eval Oral Care Ability Independent Areas of Assistance Retrieving/Set-Up of Items Devices Oral Care Devices Sponge/Foam Tipped Swab Comments Oral Care Comments Set-up for swabs. OT ADL-Dressing General Eval Lower Body Dressing Ability Independent Comments OT Dressing Comments Pt able to to cathie/doff socks with increased time but needing more time to do his right foot. OT ADL-Toileting Comments OT Toileting Comments Not performed. OT ADL-Bathing Bathing Type Bathing Type Sponge Bath General Evaluation Bathing Ability Standby Assistance Areas Needing Assistance Retrieving/Setting Up Items Comments OT Bathing Comments Pt able to wash/dry his feet from the edge of the bed on his own after set-up . M5 OT- IP IADL's Start: 11/23/22 15:51 Freq: Status: Active Protocol: Document 11/23/22 09:53 [facility] (Rec: 11/23/22 16:04 [facility] [id number]) OT-Instrumental Activities of Daily Living Home Safety Awareness Awareness of Need for Assistance at Home Decreased Awareness M6 OT- IP Functional Cognition Start: 11/23/22 15:51 Freq: Status: Active Protocol: Document 11/29/22 09:50 [facility] (Rec: 11/29/22 10:17 [facility] [id number]) Cognitive Factors Limiting Selfcare Function Cognitive Ability Level of Alertness Alert Cognitive Comments Cognitive Assessment Comments Pt's trach capped and now pt able to talk. Pt very motivated to go home. M7 OT- IP Mobility and Balance Start: 11/23/22 15:51 Freq: Status: Active Protocol: Document 11/29/22 09:50 [facility] (Rec: 11/29/22 10:17 [facility] [id number]) OT- Bed Mobility Assessment Sit to Supine Sit to Supine Assist Standby Assistance OT-Transfer Assessment Comments Mobility Comments Pt able to get back into bed on his own and just needing a little help to straighten his covers. OT- Balance Assessment Sitting Balance and Reactions Static Sitting Balance Ability Normal Dynamic Sitting Balance Ability Good M8 OT- IP Objective Assessments Start: 11/23/22 15:51 Freq: Status: Active Protocol: Document 11/23/22 09:53 [facility] (Rec: 11/23/22 16:04 [facility] [id number]) OT Gross Range of Motion Upper Extremity Range of Motion Assessment Within Functional Limits OT Strength Upper Extremity Strength Assessment Bilaterally Impaired Comments Strength Comments BUE strength 4-/5 to 4/5 from proximal to distal. M9 OT- IP Assessment and Plan Start: 11/23/22 15:51 Freq: Status: Active Protocol: Document 11/29/22 09:50 [facility] (Rec: 11/29/22 10:17 [facility] [id number]) OT Summary Assessment and Plan Potential Rehabilitation Potential Good Analytic Complexity at Evaluation High Summary OT Impairments Strength,Balance,Functional Mobility,Toileting,Bathing, Toilet Transfers,Shower Transfers,Activity Tolerance Progress Towards Goals Progressing Toward Goals Assessment Summary Pt now eating as trach has been capped. Pt needing cue to slow down and take only single sips at a time. Pt able to change out his socks in addition to was his feet with a wash cloth on his own at this time. Pt doing much better with mobility and ADl needs. Medical needs still to be determined for the care for his peg/trach. Goals Dressing Goal Independent Toileting Goal Independent Bathing Goal Independent Toilet Transfer Goal Independent Shower Transfer Goal Independent Days to Meet Goals 15 Frequency of Treatment Frequency Of Treatment Once a Day Treatment Plan OT Treatment Plan ADL Training,Functional Cognition Training,Functional Mobility,Patient/Family Education,Discharge Planning Other Treatment Recommendations and Next shower Treatment Focus Discharge Recommendations OT Discharge Recommendations Home with 24/7 Assist Available,Home Health,SNF Rehab Transportation Needs at Discharge Private Vehicle
[2022-11-29 10:33] VITALS: PULSE 92; RESP 14; O2SAT 98
--- NOTE | 2022-11-29 12:12 | PT.IPTN ---
Current Diagnoses Sepsis, unspecified organism (10/30/22) Delirium due to known physiological condition (10/30/22) Nicotine dependence, unspecified, in remission (10/30/22) Chronic pain due to trauma (10/30/22) Chronic respiratory failure with hypoxia (10/30/22) Respiratory failure, unspecified, unspecified whether with hypoxia or hypercapnia (10/30/22) Gastro-esophageal reflux disease without esophagitis (10/30/22) Patient's other noncompliance with medication regimen (10/30/22) Tracheostomy status (10/30/22) Surgery Performed Operation Date: 11/15/22 11:15 Actual Procedures p Tracheostomy(Not Applicable) - Alyssia Barbour MD s Peg Tube Insertion(Not Applicable) - Alyssia Barbour MD Physical Therapy Treatment Note M2 PT-IP Current Condition Start: 11/04/22 14:07 Freq: NEEDED Status: Active Protocol: Document 11/29/22 11:42 [facility] (Rec: 11/29/22 17:10 [facility] [id number]) Physical Therapy Current Condition Current Condition Evaluation Date 11/23/22 Treatment Diagnosis PNA; influenza A; ETOH adn heroin w/d; difficulty in walking Onset Date 10/30/22 M3 PT-IP Subjective Start: 11/04/22 14:07 Freq: NEEDED Status: Active Protocol: Document 11/29/22 11:42 [facility] (Rec: 11/29/22 17:10 SP [id number]) Subjective Physical Therapy Visit Type Type Treatment Note Visit Start Time 11:42 Visit Stop Time 12:12 Total Visit Minutes 30 Notes vitals: supine 82/51, 81/50 seated EOB LUE, RUE seated EOB 109/64 HR 109, notified nursing and aware low BP but stated ok to mobilize. post mobility: HR 99 SaO2 100 % on RA. Number of PIN PUSHER Visits 1 Physical Therapy Visit Comments Patient Comments Pt willing to do exercises, gait, 1 step with therapy M4 PT-IP Mobility and Gait Start: 11/04/22 14:07 Freq: NEEDED Status: Active Protocol: Document 11/29/22 11:42 SP (Rec: 11/29/22 17:10 SP [id number]) PT-Bed Mobility Assessment Supine to Sit Supine to Sit Contact Guard Assistance, Minimal Assistance,1 Person Assistance Scooting Scooting to Edge of Bed Standby Assistance PT-Transfer Assessment Sit to and From Stand Sit to and from Stand Standby Assistance,1 Person Assistance,Use of Upper Extremities Equipment Transfer Assistive Device Gait Belt,Front Wheeled Walker Orthotic/Prosthetic Devices or Brace: No Transfers Transfer Destination Chair Transfer Ability Level of Assist Standby Assistance,Use of Upper Extremities Comments Mobility Comments Pt completed elevated Sup>sit CG/ Min A trunk righting HOB flat, scoot sBA, STS CGA w/ FWW. Nursing disconnected Peg tube. gait around room w/ FWW x2 laps sBA, complete 1 portable step w/ FWW over for support CGA, assimulate 1 PF step at home no HRs, stable using BUE CGA. Pt returned to chair SBA. Pt all needs in reach before left Speech therapist arrived, took over tx and will provide call light when end tx. Gait Assessment Gait Gait Assistance Required: Standby Assistance,Contact Guard Assist Distance (Feet) 60 Assistive Devices Assistive Device Gait Belt,Front Wheeled Walker Orthotic/Prosthetic Devices or Brace: No Gait Deviations General Gait Pattern Antalgic,Decreased Stride Length,Decreased Feet Clearance,Flexed Trunk,Narrow Based Gait Factors Limiting Gait Function Factors Limiting Gait Function Abnormal Tonal Influences, Decreased Strength,Difficulty Following Directions,Pain,Poor Safety Awareness,Respiratory Distress Comments Gait Comments cued increase stride, upright posture, pivot turn small marching steps Stair Climbing Assessment Evaluation Level of Assist On Stairs Contact Guard Assistance Devices Stair Climbing Assistive Devices Front Wheel Walker Technique/Endurance Stair Climbing Direction Ascend and Descend Stair Climbing Technique Step to Step Number of Steps Climbed 1 Stair Climbing Set # Repetitions (reps) 1 Comments Stair Climbing Comments see mobility comments PT-Balance Assessment Sitting Balance and Reactions Static Sitting Balance Ability Normal Dynamic Sitting Balance Ability Good Standing Balance and Reactions Static Standing Balance Ability Fair Dynamic Standing Balance Ability Fair Device Used FWW M5 PT-IP Objective Assessments Start: 11/04/22 14:07 Freq: NEEDED Status: Active Protocol: Document 11/23/22 09:50 [facility] (Rec: 11/23/22 13:19 [facility] [id number]) Orientation Orientation/Cognition Level of Alertness Alert Safety Awareness Decreased Safety Awareness Comments pt with trach and unable to talk at this time Gross Range of Motion Lower Extremity ROM Assessment Within Functional Limits Strength Lower Extremity Strength Assessment Bilaterally Impaired Hip 3+/5 Knee 3+/5 Muscle Tone Muscle Tone WNL Yes M6 PT-IP Treatment Start: 11/04/22 14:07 Freq: NEEDED Status: Active Protocol: Document 11/29/22 11:42 SP (Rec: 11/29/22 17:10 SP [id number]) Physical Therapy Treatment Exercises Exercises Ankle Pumps,Gluteal Sets,Quad Sets,Heel Slides,Straight Leg Raises,Seated Knee Flexion/ Extension Education Education Provided Safety Other Treatments Other Treatment Performed sit>stand x3, standing hip extension using FWW for support, abdominal marching 5 reps each exercise M7 PT-IP Assessment and Plan Start: 11/04/22 14:07 Freq: NEEDED Status: Active Protocol: Document 11/29/22 11:42 SP (Rec: 11/29/22 17:10 SP [id number]) PT Summary Assessment and Plan Potential Rehabilitation Potential Fair Summary Impairments Pain,ROM,Strength,Balance, Coordination,Cognition,Bed Mobility,Transfers,Gait, Activity Tolerance Progress Towards Goals Slow Progress due to Medical Issues,Slow Progress due to Activity Tolerance Assessment Summary instructed LE exercises supine , CG/ Min A bed mob, SBA for transfers/ gait, CGA portable step w/ FWW. Pt little unsteady, small DAYNE recommending SBA w/ FWW and vs SNF for safety mobility progression functional strengthening. WIll continue to assess progress. Goals Bed Mobility Goal Standby Assistance Transfer Goal Contact Guard Assistance,Front Wheeled Walker Gait Goal Contact Guard Assistance,Front Wheel Walker Gait Distance 100 Days to Meet Goals 10 Frequency of Treatment Frequency Of Treatment Once a Day Treatment Plan Physical Therapy Treatment Plan Bed Mobility Training,Transfer Training,Gait Training, Therapeutic Exercise,Balance Retraining,Discharge Planning, Neuromuscular Re-ed, Coordination Retraining Other Recommendations and Next Treatment Continue standing balance and Focus strengthening activities further distance gait w/ FWW/ LRAD. full PF step. Precautions Other Precautions Contact precautions: MRSA, influenza A (+) Recommendations To Nursing Amount of Assist Needed Standby Assistance,1 Person Assist Discharge Recommendations PT Discharge Recommendations Home with 17/06 Assist Available,Home Health,SNF Rehab,Home vs SNF Equipment Needed for Home Before Fww if safe to DC home Discharge Transportation Needs at Discharge Private Vehicle,Wheelchair/ Cabulance
[2022-11-29] MEDS: OXYCODONE IR 5 MG TABLET 10 MG PO ×2 (13:18→20:25)
--- NOTE | 2022-11-29 13:55 | DI.RAD.S_ITS ---
PROCEDURE: XR CHEST 1V INDICATIONS: increased O2 needs TECHNIQUE: One view of the chest was acquired. COMPARISON: [facility], CR, XR CHEST 1V, 11/18/2022, 22:45. [facility], CR, XR CHEST FOR PICC 1V, 11/20/2022, 11:51. FINDINGS: Surgical changes and devices: A tracheostomy tube is seen in place. Cervical thoracic fixation hardware is seen. The previously seen right-sided central line has been removed. Lungs and pleura: On this semiupright portable chest examination, no large pneumothorax is seen. There is blunting of the costophrenic angles. There is improving opacity seen at the left lung base. Improving bilateral interstitial infiltrates are also seen. Mediastinum: Mediastinal contours appear normal. Heart size is normal. Bones and chest wall: No suspicious bony lesions. Age-appropriate bony degenerative changes are seen. Overlying soft tissues appear unremarkable. IMPRESSION: Improving opacity at the left lung base. Improving bilateral interstitial infiltrates. Postoperative and degenerative changes are seen. Dictated by: Jayme Ventura M.D. on 11/29/2022 at 13:41 Approved by: Jayme Ventura M.D. on 11/29/2022 at 13:42
--- NOTE | 2022-11-29 14:46 | CM.DPNOTE ---
Update-DCP Efforts Patient now w/capped trach, able to speak and diet being advanced. Furthermore, met w/patient this afternoon and he asks when he will have his trach and peg removed; KRISTEN Valdez confirms general surgery will consult for removal of peg and trach per Dr Porras's request While this being determined, CM team will continue efforts to secure HH services to help manage peg and trach in case patient returns home w/these items (patient asking to return home LU[facility]) Update from yesterday and today's efforts: Was able to get in touch with Jelly Quesada, Patient Registration Billing Office for [facility] P [phone] F [phone] email [email or web address]. Jelly kindly agreed to assist patient with transitioning insurance JUDITH-->[employer] as the [place] assister assigned to this [place] member, approved by pediatric clinical dietician. Jelly met bedside with patient this morning, patient A+O, able to communicate needs and discussed JUDITH plans with Jelly; patient has chosen [facility] According to update from Jelly this afternoon, patient had been a straight JUDITH recipient for so long he was not found on the healthplan finder. Jelly was able to speak directly with JUDITH and d/t to medical circumstance advocated for the immediate assignment of [facility] JUDITH per patient's request. [facility] JUDITH was assigned and dated back to 11.25.22 however [facility] JUDITH policy numbers typically take 10 days to be assigned. Jelly not in clinic Saturday so provided this [employer] OPERATOR w/the steps to ask for expedited policy number d/t urgent medical needs. Asked Jelly about nursing services available through the [place] [facility] ? Jelly explains the clinic does not have the resources to support patient once home. PT/OT= Home w/17/06 assist vs SNF Placed call to [facility] and learned that patient is not established. Transfer to the nursing team was attempted and call was dropped Referrals to [facility], [facility] and [facility] today; [facility] unable to accept d/t patient's hx drug use. [facility] will not accept d/t trach care and [facility] will not take JUDITH at this time To be determined: Will patient discharge with trach and peg ? If so, HH services have not been secured. Its possible that patient could attend wound care appts at [facility] vs wound care clinic if he gets established ([facility] can provide transport). Communication w/patient's family would be helpful if patient is agreeable Patient is very eager to return home and it's likely that he will return home no matter what services are secured; this [employer] OPERATOR trying to coordinate the safest plan available to patient VARGAS Whitaker
[2022-11-29 16:31] VITALS: BP 120/61; PULSE 94; RESP 16; TEMP 37.2; O2SAT 96
--- NOTE | 2022-11-29 16:57 | ST.IPDYTX ---
Visit Care Team Role Provider Type Sanna Zurita DO Primary Care Provider Physician Specialty: Family Practice Address: [address] [place] [address], [address], [place], [address] Email: [email or web address] Jonathan Hines MD Other Providers Physician Specialty: Medical Address: Phone: Fax: Email: Greta Boyer MD Other Providers Physician Specialty: Medical Address: Phone: Fax: Email: Dre Saucedo MD Other Providers Physician Specialty: Medical Address: [address] [place], [address] Phone: Fax: Email: Jean Kim MD Other Providers Physician Specialty: Internal Medicine Address: Phone: Fax: Email: Rico Ribeiro MD Other Providers Physician Specialty: Medical Address: Phone: Fax: Email: Corey Masters MD Other Providers Physician Specialty: General Surgery Address: [address] [place] [address], [id number] Email: [email or web address] Mati Fu MD Other Providers Physician Specialty: Internal Medicine Address: [address] [place] [address], [address] Phone: Fax: Email: [email or web address] Kb Anaya MD Other Providers Physician Specialty: Internal Medicine Address: Phone: Fax: Email: Ghanshyam Oakes MD Other Providers Physician Specialty: Medical Address: Phone: Fax: Email: Chad Whitmore MD Other Providers Physician Specialty: Internal Medicine Address: [address] [place], [address] Phone: Fax: Email: Rodrigo Tate MD Other Providers Physician Specialty: Medical Address: [address], [address] Phone: Fax: Email: Shereen George MD Other Providers Physician Specialty: Medical Address: Phone: Fax: Email: Lisa Alatorre Other Providers Physician Specialty: Medical Address: Phone: Fax: Email: Angel Logan PA-C Emergency Provider [employer] Operator Referring Provider Specialty: EM Address: [address] [place] [address], [id number] Email: [email or web address] [facility] Ad[facility] Provider Physician Attending Provider Specialty: Hospitalist Internal Medicine Address: [address] [place] [address], [id number] Email: AUTOTRANSFUSIONIST Dysphagia Treatment AUTOTRANSFUSIONIST Dysphagia Treatment Start: 11/23/22 13:00 Freq: Status: Active Protocol: Document 11/29/22 16:38 LNK (Rec: 11/29/22 16:54 LNK [id number]) Dysphagia Treatment Session Time Visit Start Time 12:50 Visit Stop Time 13:20 Total Visit Minutes 20 Setting Assessment Location Acute Care Visit Type Note Type Re-Evaluation Next Note Type Next Note Type Treatment Note Patient Information Identification Type Name,ID Wristband Subjective Observations Pt was out of bed walking around room with PT. Pt talking easier today. Treatment Liquids Trialed Thin Solids Trialed Mechanical Soft Administration Type Controlled Cup Sip,Self- Feeding Oral Strategies Upright at 90 degrees,Lingual Sweep,Controlled Bite/Sip Size Pharyngeal Strategies Sitting Upright (90 deg),Small Bites and Sips,Alternate Liquids/Solids Treatment Activities PO trial with pt for diet advancement. Pt has been eating meals by himself without overt s/sx aspiration. Trial turkey sandwich with garcia and thin liquids were trialed. pt was observed to self feed the sand which, chew well/taking time/ and swallowing without difficulty. Pt is missing teeth but was able to safely masticate and control the bolus. Trial thin liquids were observed with a single cup sip to be safely tolerated. Pt understands no straws due to high volume and quickness of liquids. PO meds as tolerated. Pt indicated he understood aspiration precautions and that he continues to present an aspirating risk as his body heals and gains strength. discussed that he should not eat raw vegetables or fruit other than bananas as these foods post a greater risk for aspiration. Assessment Patient Response to Treatment Excellent Assessment of Improvement Significant improvement considering the amount of time pt was intubated. Diet Recommendations Recommendations Upgrade Diet Order Liquids Order Thin Diet Order Mechanical Soft Medication Recommendations As Tolerated Additional Dietary Needs Controlled Sips,No Straws, Encourage to Self-Feed Aspiration Precautions Recommended Precautions Upright at 90 Degrees,Small Bites/Sips,Lingual Sweep, Liquids from Cup Treatment Plan Placement Recommendation after Discharge Snf Facility,Home with Home Health Appropriate for Continued Therapy Yes Therapy Recommendations Pt education for safe swallowing and swallow exercises will be provided in verbal and written format for pt. Dysphagia Goals Pt will safely tolerate the least restrictive diet to meet hydration and nutrition needs .
--- NOTE | 2022-11-29 16:59 | DIET.CONS2 ---
Dietary Inpatient Consultation Note Admission Date: 10/30/2022 20:22 Per surgery, pt requires PEG to remain x1mo before removal. Concern for some silent aspiration as pt excited to be eating and may not be following all safety reccs. Recc continuing feeding plan outlined below with free water flushes until pts musculature stronger to safely consume enough PO to meet nutritional needs. Diet: 11/15/22 Dinner Tube Feeding Diet Diet Modifications: please send 2 bottles formula on evening cart/d TF Supplement type: Jevity 1.2 leroy TF mode of delivery: Continuous Starting flow rate mL/hr: 80 Flow rate goal mL/hr: 115 Titration Schedule to reach Goal Rate: increase by 10-20mL q4h as tolerated Max total daily volume in mL: 1,834 Free fluid: 120 Free Water Frequency: Q4H Comment: run from 0800 to 2000 then off for 12h 11/29/22 Breakfast Dysphagia Diet Diet Modifications: SMALL QUANTITIES Liquid consistency: [place] Consistency Food texture: Dysphagia Pureed 11/29/22 Dinner Easy to Chew/IDDSI7 Diet Diet Modifications: Aspiration Precautions Continued Nutrition Percent Meal Consumed 50% 11/29/22 13:37 Percent Meal Consumed 25% 11/28/22 18:17 Percent Meal Consumed pt is NPO feeding tube 11/28/22 09:07 Electronically Signed by: Pati Parikh 11/29/22 16:59 Clinical Dietitian [address] [address]
[2022-11-29 20:00] VITALS: BP 97/55; PULSE 106; RESP 18; TEMP 37.3; O2SAT 98
[2022-11-30] MEDS: OXYCODONE IR 5 MG TABLET 10 MG PO ×3 (01:16→15:46)
[2022-11-30 01:45] VITALS: BP 92/55; PULSE 100; RESP 20; TEMP 36.9; O2SAT 99
--- NOTE | 2022-11-30 03:01 | PC.NURSE ---
Addendum entered by Sonam Barry R.N. 11/30/22 03:06: Patient was moved to room 219 via WC, all belongings sent with him. Report given to James PETERSON. Original Note: Door Operator Note-Patient is A/Ox4, talking about going home soon. Ambulating with walker and SBA in room. Medicated with oxycodone per prn for left ear pain, and right neck tenderness. VSS, SpO2 99% on RA, drsg to trach site removal CDI, peg site CDI.
[2022-11-30 03:52] VITALS: PULSE 82; RESP 16; O2SAT 99
[2022-11-30] MEDS: MULTIVITAMIN 1 TABLET 1 TAB PO (09:17)
[2022-11-30] MEDS: PANTOPRAZOLE 40 MG VIAL IV (09:18)
[2022-11-30] MEDS: FOLIC ACID 1 MG TABLET PO (09:18)
[2022-11-30] MEDS: ENOXAPARIN 40 MG/0.4 ML SYRINGE SUBCUT (09:18)
--- NOTE | 2022-11-30 09:20 | PT.IPTN ---
Current Diagnoses Sepsis, unspecified organism (10/30/22) Delirium due to known physiological condition (10/30/22) Nicotine dependence, unspecified, in remission (10/30/22) Chronic pain due to trauma (10/30/22) Chronic respiratory failure with hypoxia (10/30/22) Respiratory failure, unspecified, unspecified whether with hypoxia or hypercapnia (10/30/22) Gastro-esophageal reflux disease without esophagitis (10/30/22) Patient's other noncompliance with medication regimen (10/30/22) Tracheostomy status (10/30/22) Surgery Performed Operation Date: 11/15/22 11:15 Actual Procedures p Tracheostomy(Not Applicable) - Alyssia Barbour MD s Peg Tube Insertion(Not Applicable) - Alyssia Barbour MD Physical Therapy Treatment Note M2 PT-IP Current Condition Start: 11/04/22 14:07 Freq: NEEDED Status: Active Protocol: Document 11/30/22 09:07 AMB (Rec: 11/30/22 09:20 AMB [id number]) Physical Therapy Current Condition Current Condition Evaluation Date 11/23/22 Treatment Diagnosis PNA; influenza A; ETOH adn heroin w/d; difficulty in walking Onset Date 10/30/22 M3 PT-IP Subjective Start: 11/04/22 14:07 Freq: NEEDED Status: Active Protocol: Document 11/30/22 09:07 AMB (Rec: 11/30/22 09:20 AMB [id number]) Subjective Physical Therapy Visit Type Type Treatment Note Visit Start Time 07:45 Visit Stop Time 08:15 Total Visit Minutes 30 Physical Therapy Visit Comments Patient Comments Pt willing to do gait with therapy M4 PT-IP Mobility and Gait Start: 11/04/22 14:07 Freq: NEEDED Status: Active Protocol: Document 11/30/22 09:07 AMB (Rec: 11/30/22 09:20 AMB [id number]) PT-Transfer Assessment Sit to and From Stand Sit to and from Stand Standby Assistance,1 Person Assistance,Use of Upper Extremities Equipment Transfer Assistive Device Gait Belt,Front Wheeled Walker Orthotic/Prosthetic Devices or Brace: No Transfers Transfer Destination Chair Transfer Ability Level of Assist Standby Assistance,Use of Upper Extremities Comments Mobility Comments Pt sitting up in chair when therapy arrived, open to getting up. SBA sit to stand with use of UEs. Ambulated in room with FWW on RA, good use of FWW with turns, did encourage pt to keep it close. Pt needs UEs to control descent back into chair. Pt back in chair where he was before therapy, educated to continue to use call light. Gait Assessment Gait Gait Assistance Required: Standby Assistance,Contact Guard Assist Distance (Feet) 80 Assistive Devices Assistive Device Gait Belt,Front Wheeled Walker Orthotic/Prosthetic Devices or Brace: No Gait Deviations General Gait Pattern Decreased Feet Clearance, Flexed Trunk,Narrow Based Gait Factors Limiting Gait Function Factors Limiting Gait Function Pain,Poor Balance Comments Gait Comments cued increase stride, upright posture (pt states challenging due to hx spinal surgery), pivot turn small marching steps M5 PT-IP Objective Assessments Start: 11/04/22 14:07 Freq: NEEDED Status: Active Protocol: Document 11/23/22 09:50 AB (Rec: 11/23/22 13:19 AB [id number]) Orientation Orientation/Cognition Level of Alertness Alert Safety Awareness Decreased Safety Awareness Comments pt with trach and unable to talk at this time Gross Range of Motion Lower Extremity ROM Assessment Within Functional Limits Strength Lower Extremity Strength Assessment Bilaterally Impaired Hip 3+/5 Knee 3+/5 Muscle Tone Muscle Tone WNL Yes M6 PT-IP Treatment Start: 11/04/22 14:07 Freq: NEEDED Status: Active Protocol: Document 11/30/22 09:07 AMB (Rec: 11/30/22 09:20 AMB [id number]) Physical Therapy Treatment Exercises Exercises Ankle Pumps,Gluteal Sets,Quad Sets,Seated Knee Flexion/ Extension Education Education Provided Safety Other Treatments Other Treatment Performed sit to stand x 5 M7 PT-IP Assessment and Plan Start: 11/04/22 14:07 Freq: NEEDED Status: Active Protocol: Document 11/30/22 09:07 AMB (Rec: 11/30/22 09:20 AMB [id number]) PT Summary Assessment and Plan Potential Rehabilitation Potential Fair Summary Impairments Pain,ROM,Strength,Balance, Coordination,Cognition,Bed Mobility,Transfers,Gait, Activity Tolerance Progress Towards Goals Slow Progress due to Medical Issues,Slow Progress due to Activity Tolerance Assessment Summary Pt very excited to have trach removed. Hoping to go home soon. Pt states there is a lot of family available for thinks like help with cooking and cleaning, and that he has access to a FWW at home. Pt was able to ambulate around room with better gait today, standing balance without FWW for 10 seconds a little shaky. Encouraged pt to use FWW if/ when he returns home. Goals Bed Mobility Goal Standby Assistance Transfer Goal Contact Guard Assistance,Front Wheeled Walker Gait Goal Contact Guard Assistance,Front Wheel Walker Gait Distance 100 Days to Meet Goals 10 Frequency of Treatment Frequency Of Treatment Once a Day Treatment Plan Physical Therapy Treatment Plan Bed Mobility Training,Transfer Training,Gait Training, Therapeutic Exercise,Balance Retraining,Discharge Planning, Neuromuscular Re-ed, Coordination Retraining Other Recommendations and Next Treatment Continue standing balance and Focus strengthening activities further distance gait w/ FWW/ LRAD. full PF step. Precautions Other Precautions Contact precautions: MRSA, influenza A (+) Recommendations To Nursing Amount of Assist Needed Standby Assistance,1 Person Assist Discharge Recommendations PT Discharge Recommendations Home with 17/06 Assist Available,Home Health,SNF Rehab,Home vs SNF Equipment Needed for Home Before Fww if safe to DC home (pt Discharge states he has access to one at home, might be good to confirm with family) Transportation Needs at Discharge Private Vehicle,Wheelchair/ Cabulance
--- NOTE | 2022-11-30 09:25 | OT.IP.TRT ---
Current Diagnoses Sepsis, unspecified organism (10/30/22) Delirium due to known physiological condition (10/30/22) Nicotine dependence, unspecified, in remission (10/30/22) Chronic pain due to trauma (10/30/22) Chronic respiratory failure with hypoxia (10/30/22) Respiratory failure, unspecified, unspecified whether with hypoxia or hypercapnia (10/30/22) Gastro-esophageal reflux disease without esophagitis (10/30/22) Patient's other noncompliance with medication regimen (10/30/22) Tracheostomy status (10/30/22) Surgery Performed Operation Date: 11/15/22 11:15 Actual Procedures p Tracheostomy(Not Applicable) - Alyssia Barbour MD s Peg Tube Insertion(Not Applicable) - Alyssia Barbour MD Occupational Therapy Treatment Note M2 OT-IP Current Condition Start: 11/23/22 15:51 Freq: Status: Active Protocol: Document 11/23/22 09:53 [facility] (Rec: 11/23/22 16:04 [facility] [id number]) Occupational Therapy Current Condition Current Condition Evaluation Date 11/23/22 Treatment Diagnosis PNA, influenza, hypoxia Diagnosis Onset Date 10/30/22 M3 OT- IP Subjective and Pain Start: 11/23/22 15:51 Freq: Status: Active Protocol: Document 11/30/22 09:25 [facility] (Rec: 11/30/22 10:49 [facility] [id number]) OT- Subjective Occupational Therapy Visit Type Type Treatment Note Visit Start Time 09:25 Visit Stop Time 09:46 Total Visit Minutes 21 Occupational Therapy Visit Comments Patient Comments Pt just finishing his breakfast. Pt agreed to do cognitive assessment. Patient/Caregiver Goals TO go home. OT Pain Assessment Pain When Pain Assessed At Rest Pain Present Pain Present Denied Pain M6 OT- IP Functional Cognition Start: 11/23/22 15:51 Freq: Status: Active Protocol: Document 11/30/22 09:25 [facility] (Rec: 11/30/22 10:49 [facility] [id number]) Cognitive Factors Limiting Selfcare Function Cognitive Ability Level of Alertness Alert Patient Orientation Name,Age,Birthday,Month,Date, Year,Day of Week,Place, Situation Attention Span Ability Capable of Focused Attention, Capable of Sustained Attention Ability to Follow Commands Able to Follow One Step Commands Memory Description Working Impaired Safety Awareness Underestimates Need for Assistance Problem Solving Ability Needs Assist to Identify Solutions Executive Function Ability Unable to Organize Plans, Unable to Remember Details Cognitive Comments Cognitive Assessment Comments Pt scored 305seconds on [place] making Part B with max vc which implies severe impairments for visual attention, speed of processing , mental flexibility, executive functioning, and task switching. Strongly suggested that pt have 24/7 assist especially for his medical needs of PEG and care after getting the trach out M9 OT- IP Assessment and Plan Start: 11/23/22 15:51 Freq: Status: Active Protocol: Document 11/30/22 09:25 [facility] (Rec: 11/30/22 10:49 [facility] [id number]) OT Summary Assessment and Plan Potential Rehabilitation Potential Good Analytic Complexity at Evaluation High Summary OT Impairments Strength,Balance,Functional Cognition,Functional Mobility, Toileting,Bathing,Toilet Transfers,Shower Transfers, Activity Tolerance Progress Towards Goals Progressing Toward Goals,Slow Progress due to Cognition Assessment Summary Pt eating and having pancakes today. Pt intact for home safety questions and basic routine for ADl needs. Pt scoring 305 seconds on [place] making Part B which implies severe impairments for higher level cognition and therefore pt will benefit form 24/7 assist especially for his management of PEG and after capping of trach. Pt would benefit from 24/7 available assist and home health versus outpt. Goals Dressing Goal Independent Toileting Goal Independent Bathing Goal Independent Toilet Transfer Goal Independent Shower Transfer Goal Independent Days to Meet Goals 10 Frequency of Treatment Frequency Of Treatment Once a Day Treatment Plan OT Treatment Plan ADL Training,Functional Cognition Training,Functional Mobility,Patient/Family Education,Discharge Planning Discharge Recommendations OT Discharge Recommendations Home with 24/7 Assist Available,Home Health,SNF Rehab Transportation Needs at Discharge Private Vehicle
[2022-11-30] MEDS: SODIUM CHLORIDE 0.9% FLUSH 10 ML IV (09:30)
[2022-11-30] MEDS: NICOTINE 7 MG PATCH TOP (10:02)
[2022-11-30 10:35] VITALS: BP 112/65; PULSE 99; RESP 18; TEMP 37; O2SAT 100
--- NOTE | 2022-11-30 10:53 | P.PN_ITS ---
Subjective Subjective Interval history: 61-year-old gentleman with hypertension, ankylosing spondylitis, heroin use, and alcohol dependence who was admitted with influenza a, bacterial pneumonia, acute hypoxic respiratory failure, and alcohol and heroin withdrawal symptoms.? He failed extubation on November 04 and required intubation.? He has remained on mechanical ventilation since that time.? He is now status post trach and PEG tube placement on November 15.? He is presently hospital day number 31.? Tr acheostomy was removed yesterday without difficulty. He is tolerating a dysphagia diet. Tube feeds have been stopped. Patient reports he is feeling quite a bit better. He is not having any shortne ss of breath. He states he was scared to have his trach removed yesterday but states it was very easy. He is looking forward to going home. 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 No shortness of breath. New pain complaints. He is asking to get a flu shot and to take a shower Exam Vital Signs (past 8 hours): - 11/30/22 03:52 Pulse Rate 82 Respiratory Rate 16 Pulse Oximetry 99 Oxygen Flow Rate 0 Fraction of Inspired Oxygen 21 Fraction of Inspired Oxygen 21 SaO2/FiO2 Ratio 471 Oxygen Delivery Method Room Air Oxygen Flow Rate 0 Narrative Exam Narrative: GEN: Pleasant middle-aged male, Alert and oriented x 3, NAD HEENT:NC, Face symmetric, stoma not visualize CHEST: Respiratory excursions symmetric, coarse but CTAB CV: RRR, no M/R/G ABD: Soft, NT/ND, BT present in all 4 quadrants, no organomegaly or masses, peg site is clean, no drainage EXTR: warm, well perfused, no C/C/E SKIN: warm and dry, no rash NEURO: Alert and oriented x 3, nonfocal Objective Labs Result Diagrams: 11/28/22 05:00 11/28/22 05:00 [facility] Medical History (Updated 11/18/22 @ 10:16 by Kb Anaya MD) Acid reflux Alcohol abuse Ankle pain Ankylosing spondylitis (1985) Ankylosing spondylitis Chronic back pain Foot pain Fracture cervical vertebra-closed GERD (gastroesophageal reflux disease) Hypertension Hypertension Muscle pain Tobacco use disorder, moderate, in early remission Surgical History History of open reduction and internal fixation (ORIF) procedure (2005) History of tonsillectomy Status post colonoscopy (2012) Status post incision and drainage Family History Father No problems noted. Mother Cancer Other Alcoholism Colorectal cancer Social History household members: family Smoking Status: Current every day smoker Assessment & Plan Assessment & Plan narrative: 1. Acute hypoxic respiratory failure Patient completed a 10 day course of Zosyn. Modified barium swallow done 2 days ago with mild aspiration on thin liquids through a straw. He has been doing well on a dysphagia diet. Status post tracheostomy removal. Currently not requiring any supplemental oxygen via nasal cannula. 2. Bilateral bacterial pneumonia [place] to be superinfection in the setting of influenza A.? And Zosyn on November 21, 2022. Residual symptoms or signs of infection. 3. Acute metabolic encephalopathy Resolved. 4. Essential hypertension On metoprolol on an outpatient basis which has been held since admission.? Blood pressures remained stable off midodrine. 5. Protein calorie malnutrition Improved overall. He is now eating. Doing well with that, no indication for ongoing supplemental tube feeds. 6. Normocytic anemia Hemoglobin was 10.8 on admission.? Stable at 10.0 on most recent lab draw 2 days ago. 7. Thrombocytosis Resolved on most recent labs. 8.? Eosinophilia Unclear etiology.? Persistent on most recent labs at 12.3%. He is asymptomatic. Tubes/Lines: Trach- placed 11/15, removed 11/29/2022 PEG - placed 11/15 Midline-placed 11/20 h[place]go cath-placed 10/30, DC 11/22/2022 central line - dc'd 11/20 Resolved issues: Influenza a Alcohol withdrawal Septic shock with end-organ failure Stable issues: Alcohol dependence Heroin dependence Code status Full Prophylaxis Lovenox Disposition Home With home health once arranged. He is requesting a flu shot at discharge which has been ordered. Time Spent With Patient Critical Care time: I spent a total of [] minutes of critical care time on this patient's care today; this time is exclusive of procedural time. Quality VTE Deep Vein Thrombosis/Pulmonary Embolism Present on Admission: No
[2022-11-30] MEDS: INFLUENZA VACCINE QIV 0.5 ML SYRINGE IM (14:30)
--- NOTE | 2022-11-30 14:42 | ST.OP.ACL ---
Visit Care Team Role Provider Type Sanna Zurita DO Primary Care Provider Physician Specialty: Family Practice Address: [address] [place] [address], [address], [address] Email: [email or web address] Jonathan Hines MD Other Providers Physician Specialty: Medical Address: Phone: Fax: Email: Greta Boyer MD Other Providers Physician Specialty: Medical Address: Phone: Fax: Email: Dre Saucedo MD Other Providers Physician Specialty: Medical Address: [address] [place], [address] Phone: Fax: Email: Jean Kim MD Other Providers Physician Specialty: Internal Medicine Address: Phone: Fax: Email: Rico Ribeiro MD Other Providers Physician Specialty: Medical Address: Phone: Fax: Email: Corey Masters MD Other Providers Physician Specialty: General Surgery Address: [address] [place] [address], [address] Email: [email or web address] Mati Fu MD Other Providers Physician Specialty: Internal Medicine Address: [address] [place] [address], [address] Phone: Fax: Email: [email or web address] Anaya MD Other Providers Physician Specialty: Internal Medicine Address: Phone: Fax: Email: Ghanshyam Oakes MD Other Providers Physician Specialty: Medical Address: Phone: Fax: Email: Chad Whitmore MD Other Providers Physician Specialty: Internal Medicine Address: [address] [place], [address] Phone: Fax: Email: Rodrigo Tate MD Other Providers Physician Specialty: Medical Address: [address], [address] Phone: Fax: Email: Shereen George MD Other Providers Physician Specialty: Medical Address: Phone: Fax: Email: Lisa Alatorre Other Providers Physician Specialty: Medical Address: Phone: Fax: Email: Angel Logan PA-C Emergency Provider Advanced Assignment Manager Referring Provider Specialty: EM Address: [address] [place] [address], [address] Email: [email or web address] [facility] Provider Physician Attending Provider Specialty: Hospitalist Internal Medicine Address: [address] [place] [address], [address] Email: Adult Cognitive Linguistic Evaluation INVESTIGATOR Adult Cognitive Linguistic Eval Start: 11/22/22 11:27 Freq: Status: Active Protocol: Document 11/30/22 14:22 LNK (Rec: 11/30/22 14:42 LNK [id number]) Adult Cognitive Linguistic Evaluation Session Time Visit Start Time 13:30 Visit Stop Time 14:00 Total Visit Minutes 30 Setting Assessment Location Acute Care Visit Type Note Type Initial evaluation Patient Information Identification Type Name,Wristband Patient History 61-year-old gentleman with hypertension, ankylosing spondylitis, heroin use, and alcohol dependence who was admitted with influenza a, bacterial pneumonia, acute hypoxic respiratory failure, and alcohol and heroin withdrawal symptoms.? He failed extubation on November 04 and required re- intubation.?Pt is status post trach and PEG tube placement on November 15. Extubated and encephalopathy is much improved. Pt is being discharged home. Cognitive assessment recommended. Previous Therapy Previous Speech-Language Therapy Yes: current inpatient status Assessment Oral Motor Examination Completed No Informal Assessment Receptive Language Normal Yes Expressive Language Normal Yes Pragmatic Language Normal Yes Formal Assessment Standardized Test/Screener Type [facility] Mental Status (UMS) Administration Complete Results Pt scored 21/30 on the SLUMS indicating mild cognitive skills decline. Pt was oriented x3, was able to compute mental math, identify shape and size of objects and list 18 animals in a divergent naming task. He had difficulty with a clock drawing and short term memory tasks. The results suggest challenges with self monitoring, working memory and mental flexibility. Findings/Results Cognitive Function Mildly impaired Cognitive Communication Deficits Self-awareness of Cognitive- Limited awareness (minimal Communication Deficits appreciation without specificity) Impact on Functioning Activity Limits/Particip.Rest. Mild: General Tasks and Demands Household Tasks Interpersonal Interactions Community Safety Risks Mild: Being Left Alone at Home Reacting to Emergency Traveling Alone in Community Prognosis Prognosis Fair Based on Cognitive status,Comorbidities ,Duration of symptoms/severity Plan of Care Speech-Language Treatment No Patient/Caregiver Education Described results of evaluation,Patient expressed understanding of evaluation, Patient expressed agreement with goals and treatment plans
--- NOTE | 2022-11-30 14:59 | CM.DPNOTE ---
Addendum entered by Elise Norwood [facility] 11/30/22 15:42: ADD: follow up expected mid week next week Addendum entered by Elise Enma, [facility] 11/30/22 15:41: ADD: Completed and signed F2F, order, H+P, demo sheet, latest prog note and DC Summary faxed to [facility] 11.30.22 @1599 Original Note: DC Note Insurance: Placed call to [facility] P [phone] explained that patient assigned [facility] yesterday and needs member ID assigned LUIS d/t urgent medical needs. Flake Cutter Operator kindly assisted and provided the following: [facility] Pharmacy benefit: BIN- [id number] PCN- [id number] # [id number] admitting has updated patient's chart information. [facility] effective 11.25.22 Patient's trach now removed, patient breathing on his own and eating. Patient discharged today as he is medically stable and eager to return home. Family Dinner Service Specialist Erica wonders if daily flushes of the peg are needed (?) Dr Panchal feels this is not necessary since patient will not be using for tube feeding. Patient continues to state he has multiple family members that can assist him once home Placed call to Erica at [facility], discussed patient's removal of trach. Patient will discharge home w/peg tube, but not running any artificial nutrition because patient is tolerating a diet. Patient will follow up w/general surgery outpatient to have peg tube removed. Patient needs to call surgery dept w/in the next few weeks to schedule this appt Erica accepts this referral and explains RN f/u should be mid week next week Meanwhile, got in touch w/patient's ex spouse Azeem P [phone] explained that patient now eating and talking, trach removed and peg tube stopped. Patient discharged, dressed and walking around his room w/a FWW Azeem explains patient's son Yifan back in fdc but that niece Stacy might be able to help patient once home. Azeem agreed to come get patient this afternoon to transport home and can also participate in DC instructions Provided patient and Azeem with [facility] brochure, [facility] - per patient's request. Patient tells this FRETTED INSTRUMENTS INSPECTOR he does not want to follow up with the doctors at the [facility]. Patient says he plans to remain sober and was drinking and using drugs occasionally before coming into the hospital. Patient tells this FRETTED INSTRUMENTS INSPECTOR he doesn't want to establish at [facility]. Patient will consider calling [facility] for transportation assist to appointments Plan: Discharge home w/family, [facility], close outpatient follow recommended VARGAS Whitaker
--- NOTE | 2022-11-30 15:16 | DIET.PN1 ---
Dietary Progress Note Assessment: Discussion in rounds indicates pt to be d/c with PEG x 1 mo but not use since cleared for PO and intake has improved. May benefit from 50-60ml flushes once per day to keep tube cleared, but encouraged discharge planning to coordinate and confirm this with infusion solutions. Ht: 170.18 cm Wt: 59.3 kg BMI: 23.0 Last BM: 11/28/22 (11/28/22 09:07) MNA: Inder Score: 19 Diet: 11/15/22 Dinner Tube Feeding Diet Diet Modifications: please send 2 bottles formula on evening cart/d TF Supplement type: Jevity 1.2 leroy TF mode of delivery: Continuous Starting flow rate mL/hr: 80 Flow rate goal mL/hr: 115 Titration Schedule to reach Goal Rate: increase by 10-20mL q4h as tolerated Max total daily volume in mL: 1,834 Free fluid: 120 Free Water Frequency: Q4H Comment: run from 0800 to 2000 then off for 12h 11/29/22 Breakfast Dysphagia Diet Diet Modifications: SMALL QUANTITIES Liquid consistency: [employer] Consistency Food texture: Dysphagia Pureed 11/29/22 Dinner Easy to Chew/IDDSI7 Diet Diet Modifications: Aspiration Precautions Continued Nutrition Percent Meal Consumed 75% 11/30/22 07:00 Percent Meal Consumed 50% 11/29/22 13:37 Percent Meal Consumed 25% 11/28/22 18:17 Labs: RBC 3.36 X10^6/uL (4.5-5.9) L 11/28/22 05:00 Hgb 10.0 g/dL (13.5-17.5) L 11/28/22 05:00 Hct 29.8 % (41-53) L 11/28/22 05:00 Creatinine 0.53 mg/dL (0.66-1.25) L 11/28/22 05:00 Hemoglobin A1c 5.8 % (4.0-6.0) 10/30/22 16:10 Lactate 0.8 mmol/L (0.7-2.1) 11/27/22 04:21 Ferritin 393 ng/mL (18-464) 11/04/22 04:30 NT-Pro-B Natriuret Pep 7160 pg/mL (<125) H 11/04/22 23:45 Electronically Signed by: Erica Almeida 11/30/22 15:16 [facility] [address] [address]
--- NOTE | 2022-11-30 15:23 | P.DS_ITS ---
History of Present Illness History of Present Illness Chief complaint: abdominal pain Narrative: Per history and physical: José Miguel Do 61-year-old male with past medical history hypertension, ankylosing spondylitis, alcohol use disorder presents to the ED with 1 day of acute onset abdominal pain.? Patient states that he was diagnosed with the flu last week, went to the clinic today, was sent to the ED for a chest x-ray to rule out pneumonia.? Patient states that his abdominal pain acutely started this afternoon after he drank some Pepsi.?? Patient denies fever, chills, chest pain, shortness of breath, frequency, urgency, dysuria, diarrhea.? Patient appears to be in severe pain, pointing to the general periumbilical area.? Patient states that he did not consume any alcohol today, last alcohol consumption was 3 days ago.? Patient denies any other drug.? Patient met SIRS criteria in ED I went and evaluated patient in the emergency department for admit patient was confused mumbling I was unable to obtain any accurate HPI ROS medical history medication reconciliation anything.? The patient did disclose an intermittent outbursts that he drinks and uses heroin daily.? The patient was very insistent that he wanted to leave and often I would later witnessed him attempting to walk had developing and very gently reassured the patient and placed him back in bed multiple times.? In report patient was reported to be sepsis, SIRS criteria, patient had a sofa score:? 0 upon admit patient's WBC 23.7, with a left shift 20,500, mono, 2300, H&H 10.9/018745, sodium 129, potassium 2.8 glucose 257, PT 15.5, INR 1.3, PTT 43, alk-phos 187, albumin 3.3 lactate 5.? Lipase WNL, patient's VBG is were WNL, CT of pelvis:Scattered consolidations in both lungs with a lower lung field predominant distribution.? Overall this is mildly worsened.? This is most consistent with multifocal pneumonia. Bronchial wall thickening, distal mucus airway plugging, and possible bronchiectasis or cavitation at the lingula. Trace left pleural effusion. Right supraclavicular and right upper paratracheal adenopathy.? These are indeterminate.? Shotty mediastinal lymph nodes.? Patient admitted for pneumonia, influenza a, heroin and alcohol withdrawal, lactic acidosis patient had a sofa score: 0 on admit. ? Discharge Providers Provider Date of admission: 10/30/22 20:22 Discharge Date: 11/30/22 Primary care physician: Sanna Zurita DO Consults: 10/31/22 00:43 Consult to Dietitian, Adult Routine Comment: Reason For Exam: BMI23, ETOH, Herion, 10/31/22 06:10 Consult to CHEMICAL TEST ENGINEER - Clinical Resource Director Routine Comment: CHEMICAL TEST ENGINEER Consult needed for:: Substance Abuse Assess Consult to Tele-customer pricing manager Routine Comment: Consulting Provider: David Tele-intensivists Reason for consultation: Director Of Safety services Has provider been notified: Yes 10/31/22 14:17 Consult to Dietitian, Adult Routine Comment: Reason For Exam: Patient on Ventilator and NPO 10/31/22 15:23 Consult to Tele-customer pricing manager Routine Comment: Consulting Provider: David Tele-intensivists Reason for consultation: Director Of Safety services 11/03/22 08:28 Consult to Dietitian, Adult Routine Comment: Reason For Exam: Initiation of tube feeds 11/04/22 09:28 Consult to Occupational Therapy Evaluate & Treat Comment: Physician Instructions: Evaluate and treat Consult to Physical Therapy Evaluate & Treat Comment: Physician Instructions: Evaluate and Treat Consult to Speech Therapy Evaluate & Treat Comment: Physician Instructions: Evaluate and treat 11/10/22 12:51 Consult to General Surgery Routine Comment: Consulting Provider: Corey Masters Reason for consultation: Tracheostomy Has provider been notified: Yes 11/18/22 10:30 Consult to Physical Therapy Evaluate & Treat Comment: Physician Instructions: Evaluate and Treat 11/22/22 08:45 Consult to Occupational Therapy Evaluate & Treat Comment: Physician Instructions: Evaluate and treat Consult to Physical Therapy Evaluate & Treat Comment: Physician Instructions: Evaluate and Treat Consult to Speech Therapy Evaluate & Treat Comment: Physician Instructions: Evaluate and treat 11/23/22 08:11 Consult to Speech Therapy Evaluate & Treat Comment: Eval for passy-tom and swallow eval Physician Instructions: Evaluate and treat Discharge provider: Amy Panchal MD Summary Hospital Course Discharge Diagnosis: Acute hypoxic respiratory failure, resolved Bilateral bacterial pneumonia, resolved Influenza a, resolved Acute metabolic encephalopathy, resolved Alcohol withdrawal, resolved Septic shock with end-organ failure, resolved Heroin dependence Alcohol dependence Essential hypertension, currently normotensive and off medications Protein calorie malnutrition, improving on oral diet Normocytic anemia, stable Thrombocytosis, resolved Eosinophilia, unclear etiology, persistent Tracheostomy placement 11/15/2022 and removal 11/29/2022 Status post PEG tube placement 11/15/2022 Midline IV placement 11/20/2022 and removal at discharge Manley catheter placement 10/30/2022 and removal 11/22/2022 Central line discontinuation 11/20/2022 Hospital Course: 61-year-old gentleman with hypertension, ankylosing spondylitis, heroin use, and alcohol dependence who was admitted with influenza a, bacterial pneumonia, acute hypoxic respiratory failure, and alcohol and heroin withdrawal symptoms.? Due to progressive respiratory failure, he was intubated October 31, 2022. At that time, central line was placed. Director Of Safety consultation was obtained. Eighth partially self-extubated on November 04. He failed extubation on November 04 and required re-intubation.? He has remained on mechanical ventilation with difficulty with weaning efforts ultimately required tracheostomy and PEG tube placement on November 15.? Is successfully weaned from the ventilator November 23. Tracheostomy was removed on November 29 without difficulty.? He is tolerating a dysphagia diet.? Tube feeds have been stopped. The PEG tube will need to remain in place for a minimum of 4 weeks before it can be removed. Patient is discharged in stable condition. Status at Discharge Cognitive/behavioral status at discharge: at baseline, oriented Functional status at discharge: independent ambulation Overall status at discharge: patient is progressing back to baseline Time Spent with Patient Time spent: Greater than 30 minutes (45 minutes spent coordinating discharge) Exam Vital Signs (past 8 hours): - 11/30/22 10:35 Temperature 98.6 F Pulse Rate 99 H Respiratory Rate 18 Blood Pressure 112/65 Pulse Oximetry 100 Oxygen Flow Rate 0 Fraction of Inspired Oxygen 21 SaO2/FiO2 Ratio 471 Oxygen Delivery Method Room Air Oxygen Flow Rate 0 Objective Labs Result Diagrams: 11/28/22 05:00 11/28/22 05:00 [facility] Medical History (Updated 11/18/22 @ 10:16 by Kb Anaya MD) Acid reflux Alcohol abuse Ankle pain Ankylosing spondylitis (1985) Ankylosing spondylitis Chronic back pain Foot pain Fracture cervical vertebra-closed GERD (gastroesophageal reflux disease) Hypertension Hypertension Muscle pain Tobacco use disorder, moderate, in early remission Surgical History History of open reduction and internal fixation (ORIF) procedure (2005) History of tonsillectomy Status post colonoscopy (2012) Status post incision and drainage Family History Father No problems noted. Mother Cancer Other Alcoholism Colorectal cancer Social History household members: family Smoking Status: Current every day smoker Discharge Plan Discharge Plan Patient Disposition: Home Health Service Transfer to: [facility] Provider Discharge Comment: Continue to place clean gauze over your tracheal stoma site daily, using clean technique with thorough handwashing 1st. Cover with silk or paper tape. Keep your peg tube site clean and dry. Monitor for any drainage or redness. Seek immediate care if you have pain, redness, fever. Please call [facility] in approximately 2 weeks for a follow-up appointment and PEG tube removal. It was placed November 15. The soonest it can be r emoved is 4 weeks after placement. Continue to eat small frequent meals, easy to chew foods. Abstain from tobacco, alcohol, and other recreational drug use. Discharge orders & Medications Prescriptions: New oxycodone 5 mg Tablet 10 mg PO Q4HR PRN (Reason: Pain, (1-10)) Qty: 20 0RF multivitamin with folic acid [Tab-A-Hiren] 400 mcg Tablet 1 tab PO DAILY Qty: 30 0RF Continued omeprazole 20 mg capsule,delayed release(DR/EC) 20 mg PO QDAY Qty: 30 11RF Label Comments: unable to confirm meds with pt or family Discontinued amitriptyline 25 mg tablet 25 mg PO BEDTIME Qty: 30 1RF Label Comments: unable to confirm meds with pt or family cyclobenzaprine 10 mg tablet 10 mg PO TIDP Qty: 90 5RF Label Comments: unable to confirm meds with pt or family gabapentin [Neurontin] 300 mg capsule 300 mg PO Q8H Qty: 90 11RF Label Comments: unable to confirm meds with pt or family metoprolol succinate [Toprol XL] 50 mg tablet extended release 24 hr 50 mg PO BID Qty: 60 11RF Label Comments: unable to confirm meds with pt or family indomethacin 50 mg capsule 50 mg PO TIDP PRN (Reason: pain, moderate) Qty: 90 5RF Label Comments: unable to confirm meds with pt or family Follow up/Referrals: Sanna Zurita DO [Primary Care Provider] - Diet/Activity/Treatments Diet comment: Dysphasia, small meals, easy to chew foods Activity: As tolerated, per PT and OT Oxygen: N/a Visit Report/Discharge Packet Instructions: How to Care for Your PEG Tube, DI on Tracheotomy-Adult, DI for Percutaneous Endoscopic Gastrostomy (PEG), DI for Prescription Opioid Use, [facility]: Wound Care Stand Alone Forms: Patient Portal/API Discharge Data Primary Care Provider: Sanna Zurita Quality VTE Deep Vein Thrombosis/Pulmonary Embolism Present on Admission: No
--- NOTE | 2022-11-30 16:26 | PC.NURSE ---
Pt is A&Ox3, VSS, afebrile on RA. He is tolerating food and devaluated by HOP STRAINER today, noted some air sound coming through Tracheostomy dresssing. Per surgery this just means air in trachea, not a concern. Pt is educated on PEG, and TC site. He is moving independently in his room with FWW. CM establishes home health info and info for patient to get PCP. He verbalizes understanding of medications, site care, s/sx of infection, as well as the need to make a follow up appt in x2 weeks for PEG removal with [facility]. He is medically cleared for discharge home and is escorted via w/ch with ex for discharge home this afternoon at approximately 1530 with all of his personal belongings.
--- NOTE | 2022-12-02 23:46 | PC.NURSE ---
Pt returned to hospital with IV in right upper arm. Removed iv, catheter tip intact. placed coban over site.
--- NOTE | 2022-12-07 10:36 | CM.DPNOTE ---
Post Discharge Note Call received from Bj at [facility] [phone] today 12.07.22. According to Bj, there was no demo sheet, HH order or F2F that was faxed for this patient upon his discharge 10.30.22 Review of CM notes tells a different story as this referral was faxed 10.30.22 to include demo sheet, H+P, F2F, HH order and DC Summary Explained to Bj that it is disappointing to hear that patient has not received services, today being 12.07.22 and patient discharged 10.30.22. Patient discharged home w/a bandage over his throat (from trach removal) and peg tube Asked if patient and family had been updated that services would not be starting ? Bj unsure and explained he would place call to patient Faxed demo sheet, completed and signed F2F (scanned into [employer] by ERIBERTO Cee on 10.30.22) and HH order to [facility]. Encouraged Bj to retrieve these documents from medical records in the future as calls and requests to the care management office cannot always be addressed in a timely manner d/t high volume on the acute care floor/ER etc JW
== END 2022-11-30 16:06 | disposition home health service (06) | DRG 4 ==
LOC: ED 20:17 → AC 20:23 → ICU 10-31 11:06 → AC 11-30 02:17
PROVIDERS: Emergency Medicine; Family Medicine; Internal Medicine; Internal Medicine Critical Care Medicine; Internal Medicine Pulmonary Disease; Student in an Organized Health Care Education/Training Program; Surgery; Admitting Provider Nurse Practitioner Family; Emergency Provider Student in an Organized Health Care Education/Training Program; PCP Family Medicine; Referring Provider Student in an Organized Health Care Education/Training Program; Visit Provider Nurse Practitioner Family
PROC: 0B110F4 Bypass Trachea to Cutaneous with Tracheostomy Device, Open Approach (ICD-10-PCS; principal; 2022-11-15 11:15)
PROC: 0DH63UZ Insertion of Feeding Device into Stomach, Percutaneous Approach (ICD-10-PCS; CPT 43246; 2022-11-15 11:15)
DX: A41.9 Sepsis, unspecified organism (principal); R65.21 Severe sepsis with septic shock; G93.41 Metabolic encephalopathy; J96.01 Acute respiratory failure with hypoxia; J96.02 Acute respiratory failure with hypercapnia; J10.08 Influenza due to other identified influenza virus with other specified pneumonia; J15.9 Unspecified bacterial pneumonia; E87.1 Hypo-osmolality and hyponatremia; F10.239 Alcohol dependence with withdrawal, unspecified; F11.23 Opioid dependence with withdrawal; E87.21 Acute metabolic acidosis; I51.81 Takotsubo syndrome; E46 Unspecified protein-calorie malnutrition; Z99.11 Dependence on respirator [ventilator] status; F17.200 Nicotine dependence, unspecified, uncomplicated; I10 Essential (primary) hypertension; E87.6 Hypokalemia; M45.2 Ankylosing spondylitis of cervical region; T42.75XA Adverse effect of unspecified antiepileptic and sedative-hypnotic drugs, initial encounter; D64.9 Anemia, unspecified; D75.839 Thrombocytosis, unspecified; D72.10 Eosinophilia, unspecified; Z23 Encounter for immunization; Z20.822 Contact with and (suspected) exposure to COVID-19; Z68.20 Body mass index [BMI] 20.0-20.9, adult
CPT/HCPCS: 0241U; 36415; 36430; 36592; 36600; 43246; 70450; 71045; 71260; 71275; 74018; 74177; 74230; 80048; 80053; 80202; 81001; 82140; 82550; 82728; 82805; 82962; 83036; 83605; 83690; 83735; 83880; 84100; 84132; 84145; 84478; 84484; 85007; 85014; 85018; 85025; 85027; 85610; 85730; 86140; 86850; 86900; 86901; 87040; 87070; 87086; 87205; 87449; 87635; 87797; 90471; 90656; 92523; 92526; 92610; 92611; 93005; 93010; 93306; 93307; 94002; 94003; 94640; 94760; 94799; 96365; 96366; 96367; 96368; 96372; 96375; 96376; 97110; 97112; 97116; 97163; 97167; 97530; 97535; 99233; 99284; 99285; 99291; C9803; P9016; C9113; J0282; J0696; J1170; J1630; J1642; J1644; J1650; J1720; J1940; J2020; J2060; J2250; J2270; J2405; J2543; J2560; J2704; J2765; J3010; J3360; J3475; P9041; Q2038; Q9967

== ENCOUNTER → 2023-03-12 13:16 | Outpatient (CLI) | payer OTHER, MEDICAID, SELFPAY ==
[2022-10-30 22:15] VITALS: BMI 23.0
[2022-11-19 18:52] VITALS: RESP 19
[2022-11-21 14:57] VITALS: PULSE 102; RESP 29; O2SAT 98
--- NOTE | 2023-03-12 | DI.RAD.S_ITS ---
PROCEDURE: XR CHEST 2V INDICATIONS: Personal history of pneumonia (recurrent) TECHNIQUE: 2 views of the chest were acquired. COMPARISON: [facility], CT, CT CHEST ABD PEL W CON, 11/18/2022, 11:52. [facility], CR, XR CHEST 1V, 11/29/2022, 14:02. FINDINGS: Surgical changes and devices: None. Lungs and pleura: Chronic bilateral interstitial changes. No superimposed acute infiltrate. Minimal bilateral pleural effusions. No pleural effusions or pneumothorax. Mediastinum: Mediastinal contours are normal. Heart size is normal. Bones and chest wall: No suspicious bony abnormalities. Soft tissues appear unremarkable. IMPRESSION: Chronic interstitial changes. Minimal bilateral pleural effusions. Dictated by: Juan Manuel Hampton M.D. on 03/12/2023 at 17:41 Approved by: Juan Manuel Hampton M.D. on 03/12/2023 at 17:43
== END ==
PROVIDERS: PCP Family Medicine; Referring Provider Family Medicine; Visit Provider Family Medicine
DX: Z87.01 Personal history of pneumonia (recurrent) (principal); Z09 Encounter for follow-up examination after completed treatment for conditions other than malignant neoplasm
CPT/HCPCS: 71046

== ENCOUNTER 2023-12-14 10:01 | Inpatient (IN) | payer MEDICAID, OTHER, SELFPAY ==
[2022-10-30 22:15] VITALS: BMI 23.0
[2022-11-19 18:52] VITALS: RESP 19
[2022-11-21 14:57] VITALS: PULSE 102; RESP 29; O2SAT 98
[2023-12-14] VITALS (171 sets, daily range): BP systolic 61–194; BP diastolic 35–106; PULSE 67–143; RESP 10–30; TEMP 35.6–38.7; O2SAT 51–100; BMI 15.6
--- NOTE | 2023-12-14 | DI.RAD.S_ITS ---
PROCEDURE: XR CHEST 1V INDICATIONS: POST INTUBATION TECHNIQUE: One view of the chest was acquired. COMPARISON: [facility], CR, XR CHEST 1V, 12/14/2023, 10:20. [facility], CR, XR CHEST 1V, 11/29/2022, 14:02. FINDINGS: Surgical changes and devices: Endotracheal tube is seen with tip projecting approximately 3 cm above the roxi. Enteric tube is seen traversing the diaphragm with tip and side hole projecting over the left upper quadrant stomach bubble. Cervical spinal fusion hardware is noted. Lungs and pleura: Diffuse bilateral pulmonary opacities again seen. No pleural effusion or pneumothorax. Mediastinum: Mediastinal contours appear normal. Heart size is normal. Bones and chest wall: No suspicious bony lesions. Overlying soft tissues appear unremarkable. IMPRESSION: 1. Endotracheal and orogastric tubes in satisfactory positions. 2. Diffuse bilateral pulmonary opacities. Approved by: Jluis Faust M.D. on 12/14/2023 at 11:09
--- NOTE | 2023-12-14 | DI.RAD.S_ITS ---
PROCEDURE: XR CHEST 1V INDICATIONS: POST INTUBATION TECHNIQUE: One view of the chest was acquired. COMPARISON: [facility], CR, XR CHEST 1V, 12/14/2023, 10:44. [facility], CR, XR CHEST 1V, 12/14/2023, 10:20. FINDINGS: Surgical changes and devices: Endotracheal and enteric tubes are seen in stable positions. Interval placement of a right internal jugular catheter with tip projecting over the superior vena cava. Cervical spinal fusion hardware is present. Lungs and pleura: Diffuse bilateral pulmonary opacities do not appear significantly changed. No pleural effusion or pneumothorax. Mediastinum: Mediastinal contours appear normal. Heart size is normal. Bones and chest wall: No suspicious bony lesions. Overlying soft tissues appear unremarkable. IMPRESSION: 1. Right internal jugular catheter is seen in satisfactory position. 2. Stable endotracheal and enteric tubes. 3. Stable bilateral pulmonary opacities. Approved by: Jluis Faust M.D. on 12/14/2023 at 12:28
--- NOTE | 2023-12-14 10:11 | DI.RAD.S_ITS ---
PROCEDURE: XR CHEST 1V INDICATIONS: OD/HYPOXIA TECHNIQUE: One view of the chest was acquired. COMPARISON: [facility], CR, XR CHEST 1V, 12/14/2023, 10:44. [facility], CR, XR CHEST 1V, 11/29/2022, 14:02. [facility], CR, XR CHEST 1V, 10/07/2019, 8:26. FINDINGS: Surgical changes and devices: Spinal fusion hardware is noted. Lungs and pleura: Diffuse bilateral pulmonary opacities are seen throughout both lungs, worst at the lung bases. No pleural effusion or pneumothorax. Mediastinum: Mediastinal contours appear normal. Heart size is normal. Bones and chest wall: No suspicious bony lesions. Overlying soft tissues appear unremarkable. IMPRESSION: Diffuse bilateral pulmonary opacities are suspicious for pneumonia or aspiration. Approved by: Jluis Faust M.D. on 12/14/2023 at 11:07
--- NOTE | 2023-12-14 10:15 | ED_ITS ---
HPI - General Adult General Chief complaint: Unresponsive Stated complaint: unresponsive Time Seen by Provider: 12/14/23 10:04 History of Present Illness HPI narrative: 63-year-old male with history of alcohol use disorder, tobacco abuse, polysubstance use presents by EMS from home for unresponsive episode. History is obtained from niece at bedside, who states that the patient has had a productive cough over the last several days and she was helping to watch him. She states that she fell asleep and while she was asleep the patient got a hold of Percocet 30s and smoked them. Patient found unresponsive by his son who called 911. EMS administered Narcan with improvement in patient's mental status. On arrival patient was awake but lethargic, toxic in appearance, saturating 51% on room air, improved to upper 80s on non-rebreather. Related Data Home Medications Medication Instructions Recorded Confirmed metoprolol succinate 50 mg 50 mg PO DAILY 12/21/22 12/21/22 tablet,extended release 24 hr (Toprol XL) Previous Rx's Medication Instructions Recorded omeprazole 20 mg capsule,delayed 20 mg PO QDAY #30 caps 11/19/19 release multivitamin with folic acid 400 1 tab PO DAILY #30 tabs 11/30/22 mcg tablet (Tab-A-Hiren) oxycodone 5 mg tablet 10 mg (2 x 5 mg) PO Q4HR PRN Pain, 11/30/22 (1-10) #20 tabs Allergies Allergy/AdvReac Type Severity Reaction Status Date / Time No Known Drug Allergies Allergy Verified 12/14/23 10:12 Review of Systems Review of Systems Narrative: Unable to assess due to medical condition Patient History Medical History Tracheostomy in place Sepsis Muscle pain Foot pain Ankle pain Chronic back pain Acid reflux Tobacco use disorder, moderate, in early remission Hypertension Ankylosing spondylitis Alcohol abuse Ankylosing spondylitis (1985) GERD (gastroesophageal reflux disease) Hypertension Fracture cervical vertebra-closed Surgical History Status post incision and drainage History of open reduction and internal fixation (ORIF) procedure (2005) Status post colonoscopy (2012) History of tonsillectomy Family History Father No problems noted. Mother Cancer Other Alcoholism Colorectal cancer Social History household members: family Smoking Status: Current every day smoker Smoking Status: Current every day smoker tobacco type: cigarettes alcohol intake frequency: 3 or more drinks per day Alcohol type: hard liquor Substance Use Type: marijuana, heroin, opiates and painkillers Exam Initial Vital Signs Initial Vital Signs: Vital Signs Temperature 97.6 F 12/14/23 10:01 Pulse Rate 112 H 12/14/23 10:01 Respiratory Rate 25 H 12/14/23 10:01 Blood Pressure 140/83 12/14/23 10:01 Pulse Oximetry 51 L 12/14/23 10:01 Oxygen Delivery Method Room Air 12/14/23 10:01 Const: Eyes open, toxic appearing, cachectic Eyes: Pupils 3 mm, sluggish, equal bilaterally ENT: Extremely poor dentition, dry mucous membranes Cardiac: Tachycardia, regular rhythm RESP: Poor respiratory effort, shallow breaths, bilateral inspiratory crackles GI: Atraumatic, soft, nontender, nondistended Skin: Warm, Dry, intact, poor skin turgor Neuro: AO x1, CN II-XII grossly intact, moves all extremities Procedures Central Line Placement Right IJ: Patient Placed on Monitor/Pulse Ox: Yes MD Prep: mask, gown and gloves Central Line Prep: Chlorhexidine scrub and sterile drapes applied Local Anesthetic: lidocaine 1% Amount of anesthesia used (mL): 5 Ultrasound Used for Placement: Yes Central Line Lumen Inserted: triple Post Procedure: sutured in place, good blood return, all ports aspirated, flushed, capped, sterile dressing applied and line stabilization device Post Procedure X-Ray: tip of catheter in good position and no pneumothorax seen Patient Tolerated Procedure: Well and No complications Complications: none Intubation Time out performed: Yes sedative: Etomidate Mg Given: 10 paralytic: Rocuronium Mg Given: 50 Laryngoscope: Larisa ET Tube Size: 7.5 ET Tube Uncuffed: No Tube Secured Depth (cm): 23 Tube Secured Location: teeth Tube Placement Confirmation: Visualized tube passing through cords, Equal breath sounds bilaterally, No breath sounds over epigastrium, Confirmation by capnometry and Chest Xray Patient Tolerated Procedure: Well and No complications Intubation Complications: none Course Orders Ordered: ED Orders 12/14/23 10:03 Acetaminophen Stat BNP [NT-proBNP (BNP-Adult 18+)] Stat CBC Auto Diff [Complete Blood Count AUTO DIFF] Stat CMP [Comprehensive Metabolic Panel] Stat Ethanol (ETOH) Stat Lactate (Lactic Acid) Stat Lipase Stat PT [Prothrombin Time INR] Stat Procalcitonin Stat Salicylate Stat 12/14/23 10:11 Chest [XR chest 1V] Stat EKG-12 Lead Stat 12/14/23 10:21 Respiratory Panel (Film Array) Stat 12/14/23 10:26 ABG [Arterial Blood Gas] Stat 12/14/23 10:30 Ammonia (NH3) Stat 12/14/23 10:35 Blood Culture Stat 12/14/23 11:26 CT head/brain wo con Stat 12/14/23 11:53 UA Complete [Urinalysis and Microscopic] Stat Urine Drug Screen, Rapid Stat 12/15/23 03:00 Vancomycin Peak Urgent 12/16/23 00:30 Vancomycin Trough Urgent Chlorhexidine Gluconate (Chlorhexidine Gluconate 15 Ml Cup) 15 ml PO Q6HR JYOTI Famotidine (Famotidine 20 Mg/2 Ml Vial) 20 mg IV NOW JYOTI Last Admin: 12/14/23 12:34 Dose: 20 mg Documented By: CTS Famotidine (Famotidine 20 Mg/2 Ml Vial) 20 mg IV BID JYOTI Heparin Sodium (Porcine) (Heparin 5,000 Unit/Ml Vial) 5,000 unit SUBCUT BID JYOTI Propofol (Propofol) 1,000 mg in 100 mls @ 1.402 mls/hr IV TITRATE JYOTI; Protocol Last Titration: 12/14/23 14:30 Dose: 5 mcg/kg/min, 1.402 mls/hr Documented By: Titration: 12/14/23 13:41 Dose: 5 mcg/kg/min, 1.402 mls/hr Documented By: Titration: 12/14/23 12:31 Dose: 10 mcg/kg/min, 2.803 mls/hr Documented By: Titration: 12/14/23 12:07 Dose: 8 mcg/kg/min, 2.243 mls/hr Documented By: Titration: 12/14/23 11:53 Dose: 5 mcg/kg/min, 1.402 mls/hr Documented By: Titration: 12/14/23 11:04 Dose: 10 mcg/kg/min, 2.803 mls/hr Documented By: Admin: 12/14/23 10:53 Dose: 5 mcg/kg/min, 1.402 mls/hr Documented By: WALDO Vancomycin HCl (Vancomycin) 1,000 mg in 200 mls @ 200 mls/hr IV Q12H JYOTI Last Infusion: 12/14/23 14:29 Dose: Infused Documented By: Admin: 12/14/23 13:21 Dose: 200 mls/hr Documented By: CTS dexmedeTOMIDine in 0.9 % NaCL (Precedex) 400 mcg in 100 mls @ 2.336 mls/hr IV TITRATE JYOTI; Protocol Last Titration: 12/14/23 14:29 Dose: 0.3 mcg/kg/hr, 3.504 mls/hr Documented By: Titration: 12/14/23 13:40 Dose: 0.3 mcg/kg/hr, 3.504 mls/hr Documented By: Admin: 12/14/23 13:18 Dose: 0.2 mcg/kg/hr, 2.336 mls/hr Documented By: CTS NOREPINEPHRINE BITARTRATE/D5W (Levophed) 4 mg in 250 mls @ 17.52 mls/hr IV TITRATE JYOTI; Protocol Last Titration: 12/14/23 14:29 Dose: 0.09 mcg/kg/min, 15 mls/hr Documented By: Admin: 12/14/23 14:00 Dose: 0.09 mcg/kg/min, 15 mls/hr Documented By: CTS Cefepime HCl 2 gm/ Sodium (Chloride) 100 mls @ 200 mls/hr IV Q12H JYOTI Fentanyl 1,000 mcg/ Dextrose 250 mls @ 8.176 mls/hr IV TITRATE JYOTI; Protocol Lactated Ringer's (Lactated Ringers) 1,000 mls @ 100 mls/hr IV CONT JYOTI Stop: 12/15/23 14:44 Naloxone HCl (Naloxone 0.4 Mg/Ml Vial) 0.2 mg IV Q2MIN PRN PRN Reason: Opiate Reversal Vancomycin HCl (Vancomycin Per Pharmacy) 1 request MISC NOW PRN PRN Reason: PROTOCOL Vancomycin HCl (Vancomycin Peak) 1 request MISC 0300 JYOTI Stop: 12/16/23 03:01 Vancomycin HCl (Vancomycin Trough) 1 request MISC 0030 JYOTI Stop: 12/16/23 00:31 Discontinued Medications Etomidate (Etomidate 2 Mg/Ml 10 Ml Vial) 10 mg IV NOW ONE Stop: 12/14/23 10:28 Last Admin: 12/14/23 10:33 Dose: 10 mg Documented By: WALDO Folic Acid (Folic Acid 1 Mg Tablet) 1 mg PO NOW ONE Stop: 12/14/23 12:16 Last Admin: 12/14/23 12:31 Dose: Not Given Documented By: CHARLI Sodium Chloride (Normal Saline 0.9%) 1,000 mls @ 1,000 mls/hr IV BOLUS ONE Stop: 12/14/23 11:09 Last Infusion: 12/14/23 11:04 Dose: Infused Documented By: Admin: 12/14/23 10:33 Dose: 1,000 mls/hr Documented By: WALDO Ceftriaxone Sodium 1,000 mg/ (Sodium Chloride) 100 mls @ 200 mls/hr IV NOW ONE Stop: 12/14/23 10:11 Last Admin: 12/14/23 11:02 Dose: Not Given Documented By: WALDO(2) Cefepime HCl 2 gm/ Sodium (Chloride) 100 mls @ 200 mls/hr IV NOW ONE Stop: 12/14/23 10:26 Last Infusion: 12/14/23 11:04 Dose: Infused Documented By: Admin: 12/14/23 10:32 Dose: 200 mls/hr Documented By: WALDO Thiamine HCl 100 mg/ Sodium (Chloride) 101 mls @ 404 mls/hr IV NOW ONE Stop: 12/14/23 12:16 Last Infusion: 12/14/23 13:14 Dose: Infused Documented By: Admin: 12/14/23 12:31 Dose: 404 mls/hr Documented By: CHARLI Sodium Chloride (Normal Saline 0.9%) 1,000 mls @ 1,000 mls/hr IV BOLUS ONE Stop: 12/14/23 14:43 Last Infusion: 12/14/23 14:30 Dose: Infused Documented By: Admin: 12/14/23 13:47 Dose: 1,000 mls/hr Documented By: CHARLI Ketamine HCl (Ketamine 500 Mg/5 Ml Inj) 10 mg IV NOW ONE Stop: 12/14/23 13:31 Last Admin: 12/14/23 13:35 Dose: Not Given Documented By: CHRALI Rocuronium [place] (Rocuronium 50 Mg/5 Ml Inj) 50 mg IV NOW ONE Stop: 12/14/23 10:28 Last Admin: 12/14/23 10:38 Dose: 50 mg Documented By: WALDO Vital Signs Vital signs: Vital Signs - 8 hr 12/14/23 10:01 12/14/23 10:04 12/14/23 10:05 Temperature 97.6 F Pulse Rate 112 H Respiratory Rate 25 H Blood Pressure 140/83 140/83 Pulse Oximetry 51 L 71 L Oxygen Delivery Method Room Air Non -Rebreather 12/14/23 10:05 12/14/23 10:09 12/14/23 10:09 Temperature Pulse Rate 119 H 121 H Respiratory Rate 10 L Blood Pressure 159/90 H Pulse Oximetry 54 L 85 L Oxygen Delivery Method Non -Rebreather Non -Rebreather 12/14/23 10:10 12/14/23 10:10 12/14/23 10:15 Temperature Pulse Rate 119 H 125 H Respiratory Rate 27 H 25 H Blood Pressure 159/90 H Pulse Oximetry 86 L 89 L Oxygen Delivery Method Non -Rebreather Non -Rebreather 12/14/23 10:20 12/14/23 10:20 12/14/23 10:23 Temperature Pulse Rate 125 H Respiratory Rate 26 H Blood Pressure 130/80 135/85 Pulse Oximetry 91 Oxygen Delivery Method Non -Rebreather 12/14/23 10:23 12/14/23 10:25 12/14/23 10:25 Temperature Pulse Rate 124 H 121 H Respiratory Rate 16 24 Blood Pressure 157/89 H Pulse Oximetry 74 L 86 L Oxygen Delivery Method Non -Rebreather Non -Rebreather 12/14/23 10:30 12/14/23 10:30 12/14/23 10:35 Temperature Pulse Rate 122 H Respiratory Rate 26 H Blood Pressure 140/89 136/92 H Pulse Oximetry 87 L Oxygen Delivery Method Non -Rebreather 12/14/23 10:35 12/14/23 10:40 12/14/23 10:40 Temperature Pulse Rate 123 H 133 H Respiratory Rate 25 H 16 Blood Pressure 132/88 Pulse Oximetry 88 L 83 L Oxygen Delivery Method Non -Rebreather Non -Rebreather 12/14/23 10:41 12/14/23 10:43 12/14/23 10:45 Temperature Pulse Rate 128 H Respiratory Rate 14 Blood Pressure Pulse Oximetry 93 97 Oxygen Delivery Method Mechanical Ventilation Mechanical Ventilation 12/14/23 10:45 12/14/23 10:45 12/14/23 10:50 Temperature Pulse Rate 143 H Respiratory Rate 14 Blood Pressure 99/67 126/93 H Pulse Oximetry 96 Oxygen Delivery Method Mechanical Ventilation 12/14/23 10:50 12/14/23 10:51 12/14/23 10:55 Temperature Pulse Rate 143 H Respiratory Rate 19 Blood Pressure Pulse Oximetry 100 99 98 Oxygen Delivery Method Mechanical Ventilation Mechanical Ventilation 12/14/23 10:55 12/14/23 10:55 12/14/23 11:00 Temperature Pulse Rate 135 H Respiratory Rate 14 Blood Pressure 125/87 131/90 Pulse Oximetry 99 Oxygen Delivery Method Mechanical Ventilation 12/14/23 11:00 12/14/23 11:05 12/14/23 11:05 Temperature Pulse Rate 133 H 129 H Respiratory Rate 23 15 Blood Pressure 134/87 Pulse Oximetry 99 96 Oxygen Delivery Method Mechanical Ventilation Mechanical Ventilation 12/14/23 11:10 12/14/23 11:10 12/14/23 11:15 Temperature 96.4 F L Pulse Rate 131 H Respiratory Rate 18 Blood Pressure 133/80 134/86 Pulse Oximetry 97 Oxygen Delivery Method Mechanical Ventilation 12/14/23 11:15 12/14/23 11:20 12/14/23 11:20 Temperature 96.1 F L 96.8 F L Pulse Rate 128 H 130 H Respiratory Rate 20 19 Blood Pressure 138/89 Pulse Oximetry 96 98 Oxygen Delivery Method Mechanical Ventilation Mechanical Ventilation 12/14/23 11:25 12/14/23 11:25 12/14/23 11:30 Temperature 97.0 F L 97.2 F L Pulse Rate 128 H 128 H Respiratory Rate 21 22 Blood Pressure 119/67 Pulse Oximetry 97 100 Oxygen Delivery Method Mechanical Ventilation Mechanical Ventilation 12/14/23 11:30 12/14/23 11:35 12/14/23 11:35 Temperature 97.3 F L Pulse Rate 126 H Respiratory Rate 20 Blood Pressure 120/70 110/67 Pulse Oximetry 100 Oxygen Delivery Method Mechanical Ventilation 12/14/23 11:40 12/14/23 11:40 12/14/23 11:45 Temperature 97.3 F L Pulse Rate 124 H Respiratory Rate 19 Blood Pressure 102/69 105/69 Pulse Oximetry 100 Oxygen Delivery Method Mechanical Ventilation 12/14/23 11:45 12/14/23 11:50 12/14/23 11:50 Temperature 97.5 F L 97.5 F L Pulse Rate 124 H 122 H Respiratory Rate 14 19 Blood Pressure 95/56 L Pulse Oximetry 100 100 Oxygen Delivery Method Mechanical Ventilation Mechanical Ventilation 12/14/23 11:55 12/14/23 11:55 12/14/23 12:00 Temperature 97.7 F Pulse Rate 121 H Respiratory Rate 18 Blood Pressure 96/57 L 97/56 L Pulse Oximetry 99 Oxygen Delivery Method Mechanical Ventilation 12/14/23 12:00 12/14/23 12:05 12/14/23 12:05 Temperature 97.7 F 97.9 F Pulse Rate 121 H 120 H Respiratory Rate 14 14 Blood Pressure 107/67 Pulse Oximetry 98 98 Oxygen Delivery Method Mechanical Ventilation 12/14/23 12:10 12/14/23 12:10 12/14/23 12:20 Temperature 97.9 F Pulse Rate 120 H Respiratory Rate 15 Blood Pressure 100/64 103/66 Pulse Oximetry 96 Oxygen Delivery Method 12/14/23 12:20 12/14/23 12:30 12/14/23 12:30 Temperature 98.1 F 98.2 F Pulse Rate 121 H 120 H Respiratory Rate 21 14 Blood Pressure 108/66 Pulse Oximetry 95 94 Oxygen Delivery Method 12/14/23 12:40 12/14/23 12:40 12/14/23 12:50 Temperature 98.4 F Pulse Rate 120 H 120 H Respiratory Rate 15 14 Blood Pressure 111/68 Pulse Oximetry 94 Oxygen Delivery Method 12/14/23 12:50 12/14/23 12:53 12/14/23 12:53 Temperature Pulse Rate 120 H 121 H Respiratory Rate 18 Blood Pressure 101/61 Pulse Oximetry 94 94 Oxygen Delivery Method 12/14/23 13:00 12/14/23 13:00 12/14/23 13:03 Temperature Pulse Rate 118 H 117 H Respiratory Rate 17 18 Blood Pressure 101/63 Pulse Oximetry 90 L 95 Oxygen Delivery Method 12/14/23 13:03 12/14/23 13:10 12/14/23 13:10 Temperature 99.0 F Pulse Rate 116 H Respiratory Rate 17 Blood Pressure 109/60 95/61 Pulse Oximetry 91 Oxygen Delivery Method 12/14/23 13:20 12/14/23 13:20 12/14/23 13:30 Temperature 99.1 F 99.5 F Pulse Rate 115 H 114 H Respiratory Rate 18 16 Blood Pressure 87/58 L Pulse Oximetry 90 L 88 L Oxygen Delivery Method 12/14/23 13:30 12/14/23 13:40 12/14/23 13:40 Temperature 99.7 F H Pulse Rate 110 H Respiratory Rate 14 Blood Pressure 95/57 L 74/51 L Pulse Oximetry 91 Oxygen Delivery Method 12/14/23 13:48 12/14/23 13:48 12/14/23 13:50 Temperature 99.9 F H Pulse Rate 109 H Respiratory Rate 15 Blood Pressure 82/52 L 80/51 L Pulse Oximetry 94 Oxygen Delivery Method 12/14/23 13:50 12/14/23 14:00 12/14/23 14:00 Temperature 99.9 F H 99.9 F H Pulse Rate 109 H 110 H Respiratory Rate 13 16 Blood Pressure 84/52 L Pulse Oximetry 93 92 Oxygen Delivery Method 12/14/23 14:10 12/14/23 14:10 12/14/23 14:20 Temperature 99.7 F H Pulse Rate 110 H Respiratory Rate 19 Blood Pressure 99/61 97/59 L Pulse Oximetry 93 Oxygen Delivery Method 12/14/23 14:20 Temperature 99.5 F Pulse Rate 109 H Respiratory Rate 20 Blood Pressure Pulse Oximetry 97 Oxygen Delivery Method Medical Decision Making Differential Diagnosis Differential Diagnosis: Sepsis, pneumonia, opiate overdose Lab Data 12/14/23 10:03 12/14/23 10:03 Labs: Lab Results 12/14/23 12/14/23 12/14/23 Range/Units 10:03 10:21 10:26 WBC 31.0 H* (4.5-11.0) X10^3/uL RBC 4.20 L (4.5-5.9) X10^6/uL Hgb 11.0 L (13.5-17.5) g/dL Hct 35.1 L (41-53) % MCV 83.5 (80-100) fL MCH 26.2 (26-34) PG MCHC 31.4 (30-36) % RDW 15.0 H (11.6-14.8) % Plt Count 673 H (150-400) X10^3/uL Neut % (Auto) Not Reportable Lymph % (Auto) Not Reportable [place] % (Auto) Not Reportable Eos % (Auto) Not Reportable Baso % (Auto) Not Reportable Lymph # (Auto) Not Reportable [place] # (Auto) Not Reportable Baso # (Auto) Not Reportable Total Counted 100 Seg Neutrophils % 84.0 H (38-70) % Band Neutrophils % 1.0 L (3-7) % Lymphocytes % (Manual) 5.0 L (25-45) % Monocytes % (Manual) 9.0 (2-11) % Metamyelocytes % 1.0 H (-0) % Neutrophils # (Manual) 42004 H (3353-9616) /uL Platelet Estimate Increased on smear RBC Morphology Normal morphology PT 16.8 H (9.4-12.5) SECONDS INR 1.5 H (0.9-1.3) ABG pH 7.23 L* (7.35-7.45) ABG pCO2 92.0 H* (35-45) mmHg ABG pO2 37 L* (80-100) mmHg ABG HCO3 39 H (23-27) mmol/L ABG Total CO2 42 H (23-27) mmol/L ABG O2 Saturation 57 L* (95-100) % ABG Base Excess 11.0 H (-2-3) mmol/L FiO2 100 Sodium 125 L (137-145) mmol/L Potassium 4.2 (3.4-5.1) mmol/L Chloride 80 L (98-107) mmol/L Carbon Dioxide 38 H (22-32) mmol/L BUN 21 H (9-20) mg/dL Creatinine 0.73 (0.66-1.25) mg/dL Estimated GFR > 60 (>60) mL/min BUN/Creatinine Ratio 28.8 H (6-22) Glucose 152 H (80-110) mg/dL Lactate 4.0 H (0.7-2.1) mmol/L Calcium 9.6 (8.4-10.2) mg/dL Magnesium 2.0 (1.6-2.3) mg/dL Total Bilirubin 0.8 (0.2-1.3) mg/dL AST 28 (17-59) IU/L ALT 17 (<50) IU/L Alkaline Phosphatase 133 H (38-126) U/L Ammonia (9-30) umol/L NT-Pro-B Natriuret Pep 8410 H (<125) pg/mL Total Protein 8.4 H (6.3-8.2) g/dL Albumin 3.4 L (3.5-5.0) g/dL Globulin 5.0 H (1.7-4.1) g/dL Albumin/Globulin Ratio 0.7 L (1.0-2.8) Lipase 37 (23-300) U/L Procalcitonin 2.52 H (<0.5) ng/mL Urine Color Urine Appearance Urine pH (4.5-8.0) Ur Specific [place] (1.000-1.035) Urine Protein (Negative) Urine Glucose (UA) (Negative) g/dL Urine Ketones (NEGATIVE) Urine Occult Blood (Negative) Urine Nitrate (Negative) Urine Bilirubin (NEGATIVE) Urine Urobilinogen (0.2) E.U./dL Ur Leukocyte Esterase (NEGATIVE) Urine RBC (0-5/HPF) Urine WBC (0-5/HPF) Ur Squamous Epith Cells (0-5/HPF) Urine Bacteria (None) Ur Culture Indicated? Vol Urine Centrifuged Salicylates < 1.0 (<20) mg/dL U Opiates 300ng/mL cut (Negative) Ur Oxycodone Screen (Negative) Urine Methadone Screen (Negative) Acetaminophen < 10 (10-30) ug/mL Ur Barbiturates Screen (Negative) U Tricyclic Antidepress (Negative) Ur Phencyclidine Scrn (Negative) Ur Amphetamines Screen (Negative) U Methamphetamines Scrn (Negative) Ur MDMA Scrn (Ecstasy) (Negative) U Benzodiazepines Scrn (Negative) Urine Cocaine Screen (Negative) U Marijuana (THC) Screen (Negative) Urine Specific [place] (Normal) Ethyl Alcohol < 10 ( - 10) mg/dL Ur Creatinine (Normal) Chlamy pneumoniae PCR Not detected (Not Detect) Adenovirus (PCR) Detected H (Not Detect) B.parapertussis DNA PCR Not detected (Not Detecte) Coronavirus OC43 (PCR) Not detected (Not Detect) Coronavirus HKU1 (PCR) Not detected (Not Detect) Coronavirus 229E (PCR) Not detected (Not Detect) SARS-CoV-2 (PCR) Not detected (Not Detecte) Coronavirus NL63 (PCR) Not detected (Not Detect) Human Metapneumovir PCR Not detected (Not Detect) Influenza Type A (PCR) Not detected (Not Detect) Influenza Type B (PCR) Not detected (Not Detect) M. pneumoniae (PCR) Not detected (Not Detect) Parainfluenza 1 (PCR) Not detected (Not Detect) Parainfluenza 2 (PCR) Not detected (Not Detect) Parainfluenza 3 (PCR) Not detected (Not Detect) Parainfluenza 4 (PCR) Not detected (Not Detect) RSV (PCR) Not detected (Not Detect) Entero/Rhino (PCR) Detected H (Not Detect) 12/14/23 12/14/23 12/14/23 Range/Units 10:30 10:57 11:53 WBC (4.5-11.0) X10^3/uL RBC (4.5-5.9) X10^6/uL Hgb (13.5-17.5) g/dL Hct (41-53) % MCV (80-100) fL MCH (26-34) PG MCHC (30-36) % RDW (11.6-14.8) % Plt Count (150-400) X10^3/uL Neut % (Auto) Lymph % (Auto) [place] % (Auto) Eos % (Auto) Baso % (Auto) Lymph # (Auto) [place] # (Auto) Baso # (Auto) Total Counted Seg Neutrophils % (38-70) % Band Neutrophils % (3-7) % Lymphocytes % (Manual) (25-45) % Monocytes % (Manual) (2-11) % Metamyelocytes % (-0) % Neutrophils # (Manual) ([id number]) /uL Platelet Estimate RBC Morphology PT (9.4-12.5) SECONDS INR (0.9-1.3) ABG pH (7.35-7.45) ABG pCO2 (35-45) mmHg ABG pO2 (80-100) mmHg ABG HCO3 (23-27) mmol/L ABG Total CO2 (23-27) mmol/L ABG O2 Saturation (95-100) % ABG Base Excess (-2-3) mmol/L FiO2 Sodium (137-145) mmol/L Potassium (3.4-5.1) mmol/L Chloride (98-107) mmol/L Carbon Dioxide (22-32) mmol/L BUN (9-20) mg/dL Creatinine (0.66-1.25) mg/dL Estimated GFR (>60) mL/min BUN/Creatinine Ratio (6-22) Glucose (80-110) mg/dL Lactate (0.7-2.1) mmol/L Calcium (8.4-10.2) mg/dL Magnesium (1.6-2.3) mg/dL Total Bilirubin (0.2-1.3) mg/dL AST (17-59) IU/L ALT (<50) IU/L Alkaline Phosphatase (38-126) U/L Ammonia 18 (9-30) umol/L NT-Pro-B Natriuret Pep (<125) pg/mL Total Protein (6.3-8.2) g/dL Albumin (3.5-5.0) g/dL Globulin (1.7-4.1) g/dL Albumin/Globulin Ratio (1.0-2.8) Lipase (23-300) U/L Procalcitonin (<0.5) ng/mL Urine Color Yellow Urine Appearance Clear Urine pH 6.5 (4.5-8.0) Ur Specific [place] 1.020 (1.000-1.035) Urine Protein 1+ H (Negative) Urine Glucose (UA) Negative (Negative) g/dL Urine Ketones Negative (NEGATIVE) Urine Occult Blood 1+ H (Negative) Urine Nitrate Negative (Negative) Urine Bilirubin Negative (NEGATIVE) Urine Urobilinogen 0.2 (0.2) E.U./dL Ur Leukocyte Esterase Negative (NEGATIVE) Urine RBC 0-1/hpf (0-5/HPF) Urine WBC None seen (0-5/HPF) Ur Squamous Epith Cells None seen (0-5/HPF) Urine Bacteria None seen (None) Ur Culture Indicated? Cult not indicated Vol Urine Centrifuged Low vol <1ml unspun A Salicylates (<20) mg/dL U Opiates 300ng/mL cut Negative (Negative) Ur Oxycodone Screen Negative (Negative) Urine Methadone Screen Negative (Negative) Acetaminophen (10-30) ug/mL Ur Barbiturates Screen Negative (Negative) U Tricyclic Antidepress Negative (Negative) Ur Phencyclidine Scrn Negative (Negative) Ur Amphetamines Screen Negative (Negative) U Methamphetamines Scrn Positive H (Negative) Ur MDMA Scrn (Ecstasy) Negative (Negative) U Benzodiazepines Scrn Negative (Negative) Urine Cocaine Screen Negative (Negative) U Marijuana (THC) Screen Negative (Negative) Urine Specific [place] (Normal) Ethyl Alcohol ( - 10) mg/dL Ur Creatinine (Normal) Chlamy pneumoniae PCR (Not Detect) Adenovirus (PCR) (Not Detect) B.parapertussis DNA PCR (Not Detecte) Coronavirus OC43 (PCR) (Not Detect) Coronavirus HKU1 (PCR) (Not Detect) Coronavirus 229E (PCR) (Not Detect) SARS-CoV-2 (PCR) Cancelled (Not Detecte) Coronavirus NL63 (PCR) (Not Detect) Human Metapneumovir PCR (Not Detect) Influenza Type A (PCR) (Not Detect) Influenza Type B (PCR) (Not Detect) M. pneumoniae (PCR) (Not Detect) Parainfluenza 1 (PCR) (Not Detect) Parainfluenza 2 (PCR) (Not Detect) Parainfluenza 3 (PCR) (Not Detect) Parainfluenza 4 (PCR) (Not Detect) RSV (PCR) (Not Detect) Entero/Rhino (PCR) (Not Detect) 12/14/23 12/14/23 Range/Units 11:53 12:02 WBC (4.5-11.0) X10^3/uL RBC (4.5-5.9) X10^6/uL Hgb (13.5-17.5) g/dL Hct (41-53) % MCV (80-100) fL MCH (26-34) PG MCHC (30-36) % RDW (11.6-14.8) % Plt Count (150-400) X10^3/uL Neut % (Auto) Lymph % (Auto) [place] % (Auto) Eos % (Auto) Baso % (Auto) Lymph # (Auto) [place] # (Auto) Baso # (Auto) Total Counted Seg Neutrophils % (38-70) % Band Neutrophils % (3-7) % Lymphocytes % (Manual) (25-45) % Monocytes % (Manual) (2-11) % Metamyelocytes % (-0) % Neutrophils # (Manual) ([id number]) /uL Platelet Estimate RBC Morphology PT (9.4-12.5) SECONDS INR (0.9-1.3) ABG pH (7.35-7.45) ABG pCO2 (35-45) mmHg ABG pO2 (80-100) mmHg ABG HCO3 (23-27) mmol/L ABG Total CO2 (23-27) mmol/L ABG O2 Saturation (95-100) % ABG Base Excess (-2-3) mmol/L FiO2 Sodium (137-145) mmol/L Potassium (3.4-5.1) mmol/L Chloride (98-107) mmol/L Carbon Dioxide (22-32) mmol/L BUN (9-20) mg/dL Creatinine (0.66-1.25) mg/dL Estimated GFR (>60) mL/min BUN/Creatinine Ratio (6-22) Glucose (80-110) mg/dL Lactate 0.9 (0.7-2.1) mmol/L Calcium (8.4-10.2) mg/dL Magnesium (1.6-2.3) mg/dL Total Bilirubin (0.2-1.3) mg/dL AST (17-59) IU/L ALT (<50) IU/L Alkaline Phosphatase (38-126) U/L Ammonia (9-30) umol/L NT-Pro-B Natriuret Pep (<125) pg/mL Total Protein (6.3-8.2) g/dL Albumin (3.5-5.0) g/dL Globulin (1.7-4.1) g/dL Albumin/Globulin Ratio (1.0-2.8) Lipase (23-300) U/L Procalcitonin (<0.5) ng/mL Urine Color Urine Appearance Urine pH Normal (4.5-8.0) Ur Specific [place] (1.000-1.035) Urine Protein (Negative) Urine Glucose (UA) (Negative) g/dL Urine Ketones (NEGATIVE) Urine Occult Blood (Negative) Urine Nitrate (Negative) Urine Bilirubin (NEGATIVE) Urine Urobilinogen (0.2) E.U./dL Ur Leukocyte Esterase (NEGATIVE) Urine RBC (0-5/HPF) Urine WBC (0-5/HPF) Ur Squamous Epith Cells (0-5/HPF) Urine Bacteria (None) Ur Culture Indicated? Vol Urine Centrifuged Salicylates (<20) mg/dL U Opiates 300ng/mL cut (Negative) Ur Oxycodone Screen (Negative) Urine Methadone Screen (Negative) Acetaminophen (10-30) ug/mL Ur Barbiturates Screen (Negative) U Tricyclic Antidepress (Negative) Ur Phencyclidine Scrn (Negative) Ur Amphetamines Screen (Negative) U Methamphetamines Scrn (Negative) Ur MDMA Scrn (Ecstasy) (Negative) U Benzodiazepines Scrn (Negative) Urine Cocaine Screen (Negative) U Marijuana (THC) Screen (Negative) Urine Specific [place] Normal (Normal) Ethyl Alcohol ( - 10) mg/dL Ur Creatinine Normal (Normal) Chlamy pneumoniae PCR (Not Detect) Adenovirus (PCR) (Not Detect) B.parapertussis DNA PCR (Not Detecte) Coronavirus OC43 (PCR) (Not Detect) Coronavirus HKU1 (PCR) (Not Detect) Coronavirus 229E (PCR) (Not Detect) SARS-CoV-2 (PCR) (Not Detecte) Coronavirus NL63 (PCR) (Not Detect) Human Metapneumovir PCR (Not Detect) Influenza Type A (PCR) (Not Detect) Influenza Type B (PCR) (Not Detect) M. pneumoniae (PCR) (Not Detect) Parainfluenza 1 (PCR) (Not Detect) Parainfluenza 2 (PCR) (Not Detect) Parainfluenza 3 (PCR) (Not Detect) Parainfluenza 4 (PCR) (Not Detect) RSV (PCR) (Not Detect) Entero/Rhino (PCR) (Not Detect) Treatment and disposition Social Determinants of Health that impact treatment or disposition: Alcohol abuse, polysubstance abuse [facility] Narrative Medical decision making narrative: Toxic appearing patient presenting for unresponsiveness after smoking Percocet 30. He did have improvement in mental status after Narcan administration, however his respiratory status was extremely poor and patient was hypoxic with poor respiratory effort. Pupils were no longer constricted and he was responding to voice, did not feel that additional Narcan would be of any benefit. After reviewing ABG the patient was intubated for improved oxygenation as well as airway protection. Preliminary review of chest x-ray shows bilateral infiltrates concerning for pneumonia. Cultures were drawn, broad-spectrum antibiotics administered. Due to patient's history of alcohol abuse thiamine and folic acid was administered. Family at bedside states that they do not believe he had any alcohol recently, but he does still occasionally drink alcohol. Laboratory work is significant for WBC count 31, hemoglobin 11, chronic. Platelets 673. Lactic acid 4.0, sodium 125. Patient's oxygenation improved on the ventilator and a central line was also placed in the right IJ for improved access and anticipated need for blood pressors. Patient's blood pressure slowly dropped while on propofol and Levophed was initiated. CT noncontrast of the brain showed no acute intracranial process. Patient is admitted in guarded condition to the ICU. Critical Care Time Critical Care Time Critical Care Time: Yes Total Critical Care Time: 64 Attestation: Acute hypoxemic respiratory failure requiring intubation, central line placement, numerous pressors. Bilateral pneumonia requiring IV antibiotics. Discharge Plan Departure Patient Disposition: Admitted As Inpatient Clinical Impression: Septic shock, Acute hypoxic on chronic hypercapnic respiratory failure Bilateral pneumonia Qualifiers: Pneumonia type: due to unspecified organism Lung location: lower lobe of lung Q ualified Code(s): J18.9 - Pneumonia, unspecified organism Opiate overdose Qualifiers: Encounter type: initial encounter Injury intent: accidental or unintentional Q ualified Code(s): T40.601A - Poisoning by unspecified narcotics, accidental (unintentional), initial encounter Protein calorie malnutrition Qualifiers: Protein-calorie malnutrition severity: severe Qualified Code(s): E43 - Unspecified severe protein-calorie malnutrition Admit Date/Time: 12/14/23 14:22 Admit Provider: Bear Porras
[2023-12-14 10:18] LABS: INR 1.5 (0.9-1.3); Prothrombin Time 16.8 SECONDS (9.4-12.5)
[2023-12-14 10:25] LABS: Acetaminophen < 10 ug/mL (10-30); Alanine Aminotransferase 17 IU/L (<50); Albumin 3.4 g/dL (3.5-5.0); Albumin Globulin Ratio 0.7 (1.0-2.8); Alkaline Phosphatase 133 U/L (38-126); Aspartate Aminotransferase 28 IU/L (17-59); BUN Creatinine Ratio 28.8 (6-22); Bilirubin Total 0.8 mg/dL (0.2-1.3); Blood Urea Nitrogen 21 mg/dL (9-20); Calcium 9.6 mg/dL (8.4-10.2); Carbon Dioxide 38 mmol/L (22-32); Chloride 80 mmol/L (98-107); Estimated Glomerular Filt Rate > 60 mL/min (>60); Ethanol (ETOH) < 10 mg/dL; Glucose 152 mg/dL (80-110); HEMOLYSIS < 15 (0-50); Lipase 37 U/L (23-300); Potassium 4.2 mmol/L (3.4-5.1); Salicylate < 1.0 mg/dL (<20); Sodium 125 mmol/L (137-145); Total Protein 8.4 g/dL (6.3-8.2)
--- NOTE | 2023-12-14 10:26 | PC.NURSE ---
ABG being done by Nora HUYNH
--- NOTE | 2023-12-14 10:27 | PC.NURSE ---
drawn by Lluvia PETERSON
[2023-12-14 10:28] LABS: Hematocrit 35.1 % (41-53); Mean Corpuscular HGB Conc 31.4 % (30-36); Mean Corpuscular Hemoglobin 26.2 PG (26-34); Mean Corpuscular Volume 83.5 fL (80-100); Platelet Count 673 X10^3/uL (150-400)
--- NOTE | 2023-12-14 10:30 | PC.NURSE ---
Pt has hx drug/ETOH abuse. Pts family found him at home unresponsive. Pt possibly smoked Percocet 30mg. Pt has baseline slurred speech per family. Pt has hx OD with intubation approx 1 year ago. Pt received narcan in field,woke up per medics.
[2023-12-14] MEDS: CEFEPIME 2 GM in SODIUM CHLORIDE 0.9% 100 ML IV ×2 (10:32→19:57)
[2023-12-14 10:33] LABS: NT-proBNP (BNP-Adult 18+) 8410 pg/mL (<125)
[2023-12-14] MEDS: ETOMIDATE 2 MG/ML 10 ML VIAL 10 MG IV (10:33)
[2023-12-14] MEDS: SODIUM CHLORIDE 0.9% 1,000 ML 1000 ML IV ×2 (10:33→13:47)
[2023-12-14] MEDS: ROCURONIUM 50 MG/5 ML INJ IV (10:38)
[2023-12-14 10:41] LABS: Add Manual Diff / Slide Review YES
--- NOTE | 2023-12-14 10:48 | PC.NURSE ---
Pt prepared for intubation by Dr Ambrocio,others present Nora HUYNH,Lluvia RN,Vianca Ochoa RN,Clemente Ochoa RN and Flavia SCALLOP CUTTER 1039- 10mg Etomidate pushed right ac,IV flushed 1040-50mg Rocuronium pushed right ac, IV flushed 1041- Dr Ambrocio intubated pt with 7.5 ET tube,23cm at the lip Equal rise and fall of chest observed,Dr Ambrocio verified with bilateral breath sounds and color change to yellow on CO2 detector. ET tube secured,initially BVM used,then transferred to vent by Nora HUYNH. 1043-OG tube placed Lluvia PETERSON 1046-Portable chest xray done.
[2023-12-14 10:49] LABS: Ammonia (NH3) 18 umol/L (9-30)
[2023-12-14 10:49] LABS: Neutrophils Absolute Manual 26350 /uL (3000-5900); Platelet Estimate Increased on smear; RBC Morphology Normal Morphology; Total Cells Counted 100
[2023-12-14] MEDS: propofoL 1,000 MG/100 ML VIAL 1.402 MG IV (10:53)
[2023-12-14 11:03] LABS: pH ABG 7.23 (7.35-7.45)
[2023-12-14 11:04] LABS: HCO3 ABG 39 mmol/L (23-27); PO2 ABG 37 mmHg (80-100); TCO2 ABG 42 mmol/L (23-27)
[2023-12-14 11:05] LABS: Fractionated Inspired Oxygen 100; Oxygen Saturation ABG 57 % (95-100)
[2023-12-14 11:06] LABS: Procalcitonin 2.52 ng/mL (<0.5)
--- NOTE | 2023-12-14 11:07 | RT ---
Pt bagged with 100% fio2 and orally intubated by MD without incident. Et tube secure and pt placed on Ventilator. No distress noted, pos etco2 color change with breathsounds bilat throughout
--- NOTE | 2023-12-14 11:14 | PC.NURSE ---
Central line placed by Dr Ambrocio
[2023-12-14 11:17] LABS: Adenovirus Detected (Not Detect); B. parapertussis Not Detected (Not Detecte); Bordetella pertussis Not Detected (Not Detect); Chlamydophila pneumoniae Not Detected (Not Detect); Coronavirus 229E Not Detected (Not Detect); Coronavirus HKU1 Not Detected (Not Detect); Coronavirus NL 63 Not Detected (Not Detect); Coronavirus OC43 Not Detected (Not Detect); Human Metapneumovirus Not Detected (Not Detect); Human Rhinovirus/Enterovirus Detected (Not Detect); Influenza A Not Detected (Not Detect); Influenza B Not Detected (Not Detect); Mycoplasma pneumoniae Not Detected (Not Detect); Parainfluenza Virus 1 Not Detected (Not Detect); Parainfluenza Virus 2 Not Detected (Not Detect); Parainfluenza Virus 3 Not Detected (Not Detect); Parainfluenza Virus 4 Not Detected (Not Detect); Respiratory Syncytial Virus Not Detected (Not Detect); SARS- CoV-2 Not Detected (Not Detecte)
--- NOTE | 2023-12-14 11:26 | DI.CT.S_ITS ---
PROCEDURE: CT HEAD/BRAIN WO CON INDICATIONS: AMS/UNRESPONSIVE TECHNIQUE: Noncontrast 4.5 mm thick angled axial sections acquired from the foramen magnum to the vertex, with coronal and sagittal reformats. For radiation dose reduction, the following was used: automated exposure control, adjustment of mA and/or kV according to patient size. COMPARISON: [facility], CR, XR CHEST 1V, 12/14/2023, 11:15. [facility], CT, CT HEAD/BRAIN WO CON, 11/18/2022, 11:52. FINDINGS: Image quality: Diagnostic. CSF spaces: Basal cisterns are patent. No extra-axial fluid collections. Ventricles are normal in size and shape. Incidental persistent cavum septum pellucidum et vergae noted. Brain: No midline shift. No intracranial masses or hemorrhage. Nicole-white matter interface is normal. Moderate atrophy and white ischemic change Skull and face: Calvarium and visualized facial bones are intact, without suspicious lesions. Sinuses: Air-fluid levels noted in the maxillary and right sphenoid sinus IMPRESSION: Atrophy and chronic ischemic change without intracranial hemorrhage or mass effect. Bilateral maxillary sinus air-fluid levels consistent with intubation Approved by: Jasper Petit M.D. on 12/14/2023 at 13:05
[2023-12-14 11:56] LABS: Reflexed Lactate in 2 Hours Y
[2023-12-14 12:02] LABS: Appearance Urine UA CLEAR; Bilirubin Urine UA NEGATIVE (NEGATIVE); Color Urine UA YELLOW; Glucose Urine UA NEGATIVE (Negative); Ketones Urine UA NEGATIVE (NEGATIVE); Leukocyte Esterase Urine UA NEGATIVE (NEGATIVE); Nitrite Urine UA NEGATIVE (Negative); Occult Blood Urine UA 1+ (Negative); Protein Urine UA 1+ (Negative); Urobilinogen Urine UA 0.2 E.U./dL (0.2); pH Urine UA 6.5 (4.5-8.0)
[2023-12-14 12:04] LABS: Bacteria Urine None Seen; Culture Indicated Urine Cult Not Indicated; RBC Urine 0-1/HPF (0-5/HPF); Squamous Epithelial Cell Urine None Seen (0-5/HPF); Urine Volume Low Vol <1mL unspun
[2023-12-14 12:05] LABS: WBC Urine None Seen (0-5/HPF)
[2023-12-14 12:13] LABS: UR Morphine/Opiate cutoff 300 Negative (Negative); Ur Creatinine Normal (Normal); Ur Specific Gravity Normal (Normal); Urine Amphetamines Negative (Negative); Urine Barbiturates Negative (Negative); Urine Benzodiazepines Negative (Negative); Urine Cocaine Negative (Negative); Urine MDMA Negative (Negative); Urine Methadone Negative (Negative); Urine Methamphetamines Positive (Negative); Urine Oxycodone Negative (Negative); Urine Phencyclidine Negative (Negative); Urine Tetrahydrocannabinol Negative (Negative); Urine Tricyclic Antidepressant Negative (Negative); Urine pH Normal (Normal)
[2023-12-14 12:27] LABS: Lactate 2HR (Lactic Acid Rflx) 0.9 mmol/L (0.7-2.1)
[2023-12-14] MEDS: THIAMINE 100 MG in SODIUM CHLORIDE 0.9% 100 ML 404 MG IV (12:31)
[2023-12-14] MEDS: FAMOTIDINE 20 MG/2 ML VIAL IV ×3 (12:34→21:35)
--- NOTE | 2023-12-14 13:05 | RT ---
Pt transported to CT without incident and back to er2 , bag mask unit at [facility], et tube secure and pt on current vent settings/LTV
[2023-12-14] MEDS: dexmedeTOMIDine in 0.9 % NaCL 400 MCG/100 ML PLAST..BAG IV ×2 (13:18→19:57)
[2023-12-14] MEDS: VANCOMYCIN 1,000 MG/200 ML PIGGYBACK 200 MG IV (13:21)
[2023-12-14] MEDS: KETAMINE 50 MG/5 ML *SYRINGE 10 MG IV (13:35)
[2023-12-14] MEDS: NOREPINEPHRINE BITARTRATE/D5W 4 MG/250 ML PLAST..BAG 15 MG IV (14:00)
--- NOTE | 2023-12-14 15:07 | PM.HP.1 ---
History of Present Illness History of Present Illness Date Patient Seen: 12/14/23 Chief complaint: unresponsive Narrative: José Miguel Do is a 63yo M with PMH of opioid dependence, ankylosing spondylitis, tobacco use, alcohol use, GERD, HTN, and previous sepsis with PNA requiring intubation then trach/PEG in 2022 who presents with altered mental status and unable to protect airway after smoking percocets. Patient is intubated. Per his neice he was at home and hasn't been feeling well the past several days with a cough. He then somehow obtained percocets and smoked them and became unresponsive. Was given narcan by EMS in the field and had improvement in AMS. In the ED patient satting in the 50's so was intubated. Unable to obtain further history as patient is intubated and family not available. [facility] Medical History Tracheostomy in place Sepsis Muscle pain Foot pain Ankle pain Chronic back pain Acid reflux Tobacco use disorder, moderate, in early remission Hypertension Ankylosing spondylitis Alcohol abuse Ankylosing spondylitis (1985) GERD (gastroesophageal reflux disease) Hypertension Fracture cervical vertebra-closed Surgical History Status post incision and drainage History of open reduction and internal fixation (ORIF) procedure (2005) Status post colonoscopy (2012) History of tonsillectomy Family History Father No problems noted. Mother Cancer Other Alcoholism Colorectal cancer Social History household members: family Smoking Status: Current every day smoker Meds Home Medications and Allergies Home Medications Medication Instructions Recorded Confirmed Type albuterol 90 mcg/actuation aerosol 90 mcg inhalation PRN PRN 12/14/23 12/14/23 History inhaler Shortness Of Breath Allergies Allergy/AdvReac Type Severity Reaction Status Date / Time No Known Drug Allergies Allergy Verified 12/14/23 10:12 Review of Systems Review of Systems Narrative: Unable to obtain due to sedation and intubated. Exam Vital Signs (past 8 hours): - 12/14/23 10:01 12/14/23 10:04 12/14/23 10:05 Temperature 97.6 F Pulse Rate 112 H Respiratory Rate 25 H Blood Pressure 140/83 140/83 Pulse Oximetry 51 L 71 L Oxygen Delivery Method Room Air Non -Rebreather 12/14/23 10:05 12/14/23 10:09 12/14/23 10:09 Temperature Pulse Rate 119 H 121 H Respiratory Rate 10 L Blood Pressure 159/90 H Pulse Oximetry 54 L 85 L Oxygen Delivery Method Non -Rebreather Non -Rebreather 12/14/23 10:10 12/14/23 10:10 12/14/23 10:15 Temperature Pulse Rate 119 H 125 H Respiratory Rate 27 H 25 H Blood Pressure 159/90 H Pulse Oximetry 86 L 89 L Oxygen Delivery Method Non -Rebreather Non -Rebreather 12/14/23 10:20 12/14/23 10:20 12/14/23 10:23 Temperature Pulse Rate 125 H Respiratory Rate 26 H Blood Pressure 130/80 135/85 Pulse Oximetry 91 Oxygen Delivery Method Non -Rebreather 12/14/23 10:23 12/14/23 10:25 12/14/23 10:25 Temperature Pulse Rate 124 H 121 H Respiratory Rate 16 24 Blood Pressure 157/89 H Pulse Oximetry 74 L 86 L Oxygen Delivery Method Non -Rebreather Non -Rebreather 12/14/23 10:30 12/14/23 10:30 12/14/23 10:35 Temperature Pulse Rate 122 H Respiratory Rate 26 H Blood Pressure 140/89 136/92 H Pulse Oximetry 87 L Oxygen Delivery Method Non -Rebreather 12/14/23 10:35 12/14/23 10:40 12/14/23 10:40 Temperature Pulse Rate 123 H 133 H Respiratory Rate 25 H 16 Blood Pressure 132/88 Pulse Oximetry 88 L 83 L Oxygen Delivery Method Non -Rebreather Non -Rebreather 12/14/23 10:41 12/14/23 10:43 12/14/23 10:45 Temperature Pulse Rate 128 H Respiratory Rate 14 Blood Pressure Pulse Oximetry 93 97 Oxygen Delivery Method Mechanical Ventilation Mechanical Ventilation 12/14/23 10:45 12/14/23 10:45 12/14/23 10:50 Temperature Pulse Rate 143 H Respiratory Rate 14 Blood Pressure 99/67 126/93 H Pulse Oximetry 96 Oxygen Delivery Method Mechanical Ventilation 12/14/23 10:50 12/14/23 10:51 12/14/23 10:55 Temperature Pulse Rate 143 H Respiratory Rate 19 Blood Pressure Pulse Oximetry 100 99 98 Oxygen Delivery Method Mechanical Ventilation Mechanical Ventilation 12/14/23 10:55 12/14/23 10:55 12/14/23 11:00 Temperature Pulse Rate 135 H Respiratory Rate 14 Blood Pressure 125/87 131/90 Pulse Oximetry 99 Oxygen Delivery Method Mechanical Ventilation 12/14/23 11:00 12/14/23 11:05 12/14/23 11:05 Temperature Pulse Rate 133 H 129 H Respiratory Rate 23 15 Blood Pressure 134/87 Pulse Oximetry 99 96 Oxygen Delivery Method Mechanical Ventilation Mechanical Ventilation 12/14/23 11:10 12/14/23 11:10 12/14/23 11:15 Temperature 96.4 F L Pulse Rate 131 H Respiratory Rate 18 Blood Pressure 133/80 134/86 Pulse Oximetry 97 Oxygen Delivery Method Mechanical Ventilation 12/14/23 11:15 12/14/23 11:20 12/14/23 11:20 Temperature 96.1 F L 96.8 F L Pulse Rate 128 H 130 H Respiratory Rate 20 19 Blood Pressure 138/89 Pulse Oximetry 96 98 Oxygen Delivery Method Mechanical Ventilation Mechanical Ventilation 12/14/23 11:25 12/14/23 11:25 12/14/23 11:30 Temperature 97.0 F L 97.2 F L Pulse Rate 128 H 128 H Respiratory Rate 21 22 Blood Pressure 119/67 Pulse Oximetry 97 100 Oxygen Delivery Method Mechanical Ventilation Mechanical Ventilation 12/14/23 11:30 12/14/23 11:35 12/14/23 11:35 Temperature 97.3 F L Pulse Rate 126 H Respiratory Rate 20 Blood Pressure 120/70 110/67 Pulse Oximetry 100 Oxygen Delivery Method Mechanical Ventilation 12/14/23 11:40 12/14/23 11:40 12/14/23 11:45 Temperature 97.3 F L Pulse Rate 124 H Respiratory Rate 19 Blood Pressure 102/69 105/69 Pulse Oximetry 100 Oxygen Delivery Method Mechanical Ventilation 12/14/23 11:45 12/14/23 11:50 12/14/23 11:50 Temperature 97.5 F L 97.5 F L Pulse Rate 124 H 122 H Respiratory Rate 14 19 Blood Pressure 95/56 L Pulse Oximetry 100 100 Oxygen Delivery Method Mechanical Ventilation Mechanical Ventilation 12/14/23 11:55 12/14/23 11:55 12/14/23 12:00 Temperature 97.7 F Pulse Rate 121 H Respiratory Rate 18 Blood Pressure 96/57 L 97/56 L Pulse Oximetry 99 Oxygen Delivery Method Mechanical Ventilation 12/14/23 12:00 12/14/23 12:05 12/14/23 12:05 Temperature 97.7 F 97.9 F Pulse Rate 121 H 120 H Respiratory Rate 14 14 Blood Pressure 107/67 Pulse Oximetry 98 98 Oxygen Delivery Method Mechanical Ventilation 12/14/23 12:10 12/14/23 12:10 12/14/23 12:20 Temperature 97.9 F Pulse Rate 120 H Respiratory Rate 15 Blood Pressure 100/64 103/66 Pulse Oximetry 96 Oxygen Delivery Method 12/14/23 12:20 12/14/23 12:30 12/14/23 12:30 Temperature 98.1 F 98.2 F Pulse Rate 121 H 120 H Respiratory Rate 21 14 Blood Pressure 108/66 Pulse Oximetry 95 94 Oxygen Delivery Method 12/14/23 12:40 12/14/23 12:40 12/14/23 12:50 Temperature 98.4 F Pulse Rate 120 H 120 H Respiratory Rate 15 14 Blood Pressure 111/68 Pulse Oximetry 94 Oxygen Delivery Method 12/14/23 12:50 12/14/23 12:53 12/14/23 12:53 Temperature Pulse Rate 120 H 121 H Respiratory Rate 18 Blood Pressure 101/61 Pulse Oximetry 94 94 Oxygen Delivery Method 12/14/23 13:00 12/14/23 13:00 12/14/23 13:03 Temperature Pulse Rate 118 H 117 H Respiratory Rate 17 18 Blood Pressure 101/63 Pulse Oximetry 90 L 95 Oxygen Delivery Method 12/14/23 13:03 12/14/23 13:10 12/14/23 13:10 Temperature 99.0 F Pulse Rate 116 H Respiratory Rate 17 Blood Pressure 109/60 95/61 Pulse Oximetry 91 Oxygen Delivery Method 12/14/23 13:20 12/14/23 13:20 12/14/23 13:30 Temperature 99.1 F 99.5 F Pulse Rate 115 H 114 H Respiratory Rate 18 16 Blood Pressure 87/58 L Pulse Oximetry 90 L 88 L Oxygen Delivery Method 12/14/23 13:30 12/14/23 13:40 12/14/23 13:40 Temperature 99.7 F H Pulse Rate 110 H Respiratory Rate 14 Blood Pressure 95/57 L 74/51 L Pulse Oximetry 91 Oxygen Delivery Method 12/14/23 13:48 12/14/23 13:48 12/14/23 13:50 Temperature 99.9 F H Pulse Rate 109 H Respiratory Rate 15 Blood Pressure 82/52 L 80/51 L Pulse Oximetry 94 Oxygen Delivery Method 12/14/23 13:50 12/14/23 14:00 12/14/23 14:00 Temperature 99.9 F H 99.9 F H Pulse Rate 109 H 110 H Respiratory Rate 13 16 Blood Pressure 84/52 L Pulse Oximetry 93 92 Oxygen Delivery Method 12/14/23 14:10 12/14/23 14:10 12/14/23 14:20 Temperature 99.7 F H Pulse Rate 110 H Respiratory Rate 19 Blood Pressure 99/61 97/59 L Pulse Oximetry 93 Oxygen Delivery Method 12/14/23 14:20 Temperature 99.5 F Pulse Rate 109 H Respiratory Rate 20 Blood Pressure Pulse Oximetry 97 Oxygen Delivery Method Oxygen Delivery Method Mechanical Ventilation Narrative Exam Narrative: GEN: intubated, cachectic and severely malnourished HEENT: dry mucous membranes, PERRL NECK: trachea midline, no JVD CV: tachycardic, no murmurs PULM: crackles in R base ABD: soft, nontender, nondistended, no organomegaly EXT: cool extremities NEURO: unable to assess due to sedation Objective Labs 12/14/23 10:03 12/14/23 17:00 Labs: Laboratory Results - last 24 hr 12/14/23 12/14/23 12/14/23 10:03 10:21 10:26 WBC 31.0 H* RBC 4.20 L Hgb 11.0 L Hct 35.1 L MCV 83.5 MCH 26.2 MCHC 31.4 RDW 15.0 H Plt Count 673 H Neut % (Auto) Not Reportable Lymph % (Auto) Not Reportable [place] % (Auto) Not Reportable Eos % (Auto) Not Reportable Baso % (Auto) Not Reportable Lymph # (Auto) Not Reportable [place] # (Auto) Not Reportable Baso # (Auto) Not Reportable Total Counted 100 Seg Neutrophils % 84.0 H Band Neutrophils % 1.0 L Lymphocytes % (Manual) 5.0 L Monocytes % (Manual) 9.0 Metamyelocytes % 1.0 H Neutrophils # (Manual) 75014 H Platelet Estimate Increased on smear RBC Morphology Normal morphology PT 16.8 H INR 1.5 H ABG pH 7.23 L* ABG pCO2 92.0 H* ABG pO2 37 L* ABG HCO3 39 H ABG Total CO2 42 H ABG O2 Saturation 57 L* ABG Base Excess 11.0 H FiO2 100 Sodium 125 L Potassium 4.2 Chloride 80 L Carbon Dioxide 38 H BUN 21 H Creatinine 0.73 Estimated GFR > 60 BUN/Creatinine Ratio 28.8 H Glucose 152 H Lactate 4.0 H Calcium 9.6 Magnesium 2.0 Total Bilirubin 0.8 AST 28 ALT 17 Alkaline Phosphatase 133 H Ammonia NT-Pro-B Natriuret Pep 8410 H Total Protein 8.4 H Albumin 3.4 L Globulin 5.0 H Albumin/Globulin Ratio 0.7 L Lipase 37 Procalcitonin 2.52 H Urine Color Urine Appearance Urine pH Ur Specific [place] Urine Protein Urine Glucose (UA) Urine Ketones Urine Occult Blood Urine Nitrate Urine Bilirubin Urine Urobilinogen Ur Leukocyte Esterase Urine RBC Urine WBC Ur Squamous Epith Cells Urine Bacteria Ur Culture Indicated? Vol Urine Centrifuged Salicylates < 1.0 U Opiates 300ng/mL cut Ur Oxycodone Screen Urine Methadone Screen Acetaminophen < 10 Ur Barbiturates Screen U Tricyclic Antidepress Ur Phencyclidine Scrn Ur Amphetamines Screen U Methamphetamines Scrn Ur MDMA Scrn (Ecstasy) U Benzodiazepines Scrn Urine Cocaine Screen U Marijuana (THC) Screen Urine Specific [place] Ethyl Alcohol < 10 Ur Creatinine Chlamy pneumoniae PCR Not detected Adenovirus (PCR) Detected H B.parapertussis DNA PCR Not detected Coronavirus OC43 (PCR) Not detected Coronavirus HKU1 (PCR) Not detected Coronavirus 229E (PCR) Not detected SARS-CoV-2 (PCR) Not detected Coronavirus NL63 (PCR) Not detected Human Metapneumovir PCR Not detected Influenza Type A (PCR) Not detected Influenza Type B (PCR) Not detected M. pneumoniae (PCR) Not detected Parainfluenza 1 (PCR) Not detected Parainfluenza 2 (PCR) Not detected Parainfluenza 3 (PCR) Not detected Parainfluenza 4 (PCR) Not detected RSV (PCR) Not detected Entero/Rhino (PCR) Detected H 12/14/23 12/14/23 12/14/23 10:30 10:57 11:53 WBC RBC Hgb Hct MCV MCH MCHC RDW Plt Count Neut % (Auto) Lymph % (Auto) [place] % (Auto) Eos % (Auto) Baso % (Auto) Lymph # (Auto) [place] # (Auto) Baso # (Auto) Total Counted Seg Neutrophils % Band Neutrophils % Lymphocytes % (Manual) Monocytes % (Manual) Metamyelocytes % Neutrophils # (Manual) Platelet Estimate RBC Morphology PT INR ABG pH ABG pCO2 ABG pO2 ABG HCO3 ABG Total CO2 ABG O2 Saturation ABG Base Excess FiO2 Sodium Potassium Chloride Carbon Dioxide BUN Creatinine Estimated GFR BUN/Creatinine Ratio Glucose Lactate Calcium Magnesium Total Bilirubin AST ALT Alkaline Phosphatase Ammonia 18 NT-Pro-B Natriuret Pep Total Protein Albumin Globulin Albumin/Globulin Ratio Lipase Procalcitonin Urine Color Yellow Urine Appearance Clear Urine pH 6.5 Ur Specific [place] 1.020 Urine Protein 1+ H Urine Glucose (UA) Negative Urine Ketones Negative Urine Occult Blood 1+ H Urine Nitrate Negative Urine Bilirubin Negative Urine Urobilinogen 0.2 Ur Leukocyte Esterase Negative Urine RBC 0-1/hpf Urine WBC None seen Ur Squamous Epith Cells None seen Urine Bacteria None seen Ur Culture Indicated? Cult not indicated Vol Urine Centrifuged Low vol <1ml unspun A Salicylates U Opiates 300ng/mL cut Negative Ur Oxycodone Screen Negative Urine Methadone Screen Negative Acetaminophen Ur Barbiturates Screen Negative U Tricyclic Antidepress Negative Ur Phencyclidine Scrn Negative Ur Amphetamines Screen Negative U Methamphetamines Scrn Positive H Ur MDMA Scrn (Ecstasy) Negative U Benzodiazepines Scrn Negative Urine Cocaine Screen Negative U Marijuana (THC) Screen Negative Urine Specific [place] Ethyl Alcohol Ur Creatinine Chlamy pneumoniae PCR Adenovirus (PCR) B.parapertussis DNA PCR Coronavirus OC43 (PCR) Coronavirus HKU1 (PCR) Coronavirus 229E (PCR) SARS-CoV-2 (PCR) Cancelled Coronavirus NL63 (PCR) Human Metapneumovir PCR Influenza Type A (PCR) Influenza Type B (PCR) M. pneumoniae (PCR) Parainfluenza 1 (PCR) Parainfluenza 2 (PCR) Parainfluenza 3 (PCR) Parainfluenza 4 (PCR) RSV (PCR) Entero/Rhino (PCR) 12/14/23 12/14/23 11:53 12:02 WBC RBC Hgb Hct MCV MCH MCHC RDW Plt Count Neut % (Auto) Lymph % (Auto) [place] % (Auto) Eos % (Auto) Baso % (Auto) Lymph # (Auto) [place] # (Auto) Baso # (Auto) Total Counted Seg Neutrophils % Band Neutrophils % Lymphocytes % (Manual) Monocytes % (Manual) Metamyelocytes % Neutrophils # (Manual) Platelet Estimate RBC Morphology PT INR ABG pH ABG pCO2 ABG pO2 ABG HCO3 ABG Total CO2 ABG O2 Saturation ABG Base Excess FiO2 Sodium Potassium Chloride Carbon Dioxide BUN Creatinine Estimated GFR BUN/Creatinine Ratio Glucose Lactate 0.9 Calcium Magnesium Total Bilirubin AST ALT Alkaline Phosphatase Ammonia NT-Pro-B Natriuret Pep Total Protein Albumin Globulin Albumin/Globulin Ratio Lipase Procalcitonin Urine Color Urine Appearance Urine pH Normal Ur Specific [place] Urine Protein Urine Glucose (UA) Urine Ketones Urine Occult Blood Urine Nitrate Urine Bilirubin Urine Urobilinogen Ur Leukocyte Esterase Urine RBC Urine WBC Ur Squamous Epith Cells Urine Bacteria Ur Culture Indicated? Vol Urine Centrifuged Salicylates U Opiates 300ng/mL cut Ur Oxycodone Screen Urine Methadone Screen Acetaminophen Ur Barbiturates Screen U Tricyclic Antidepress Ur Phencyclidine Scrn Ur Amphetamines Screen U Methamphetamines Scrn Ur MDMA Scrn (Ecstasy) U Benzodiazepines Scrn Urine Cocaine Screen U Marijuana (THC) Screen Urine Specific [place] Normal Ethyl Alcohol Ur Creatinine Normal Chlamy pneumoniae PCR Adenovirus (PCR) B.parapertussis DNA PCR Coronavirus OC43 (PCR) Coronavirus HKU1 (PCR) Coronavirus 229E (PCR) SARS-CoV-2 (PCR) Coronavirus NL63 (PCR) Human Metapneumovir PCR Influenza Type A (PCR) Influenza Type B (PCR) M. pneumoniae (PCR) Parainfluenza 1 (PCR) Parainfluenza 2 (PCR) Parainfluenza 3 (PCR) Parainfluenza 4 (PCR) RSV (PCR) Entero/Rhino (PCR) Assessment & Plan Assessment & Plan narrative: # septic shock 2/2 viral and bacterial PNA -likely due to pneumonia. presents with fevers, leukocytosis and hypotension -bilateral infiltrates on CXR -positive for rhinovirus and adenovirus -requiring levophed and vasopressin -f/up blood cultures -continue vanc, cefepime -MRSA positive nares -wean pressors as able # acute hypoxic and hypercapnic resp failure -intubated due to unable to protect airway and sats in 50's due to PNA -vent management per tele-ICU -ABG with improved hypercapnea and hypoxia post-intubation -abx as above # acute toxic encephalopathy -likely due to drug overdose, as patient likely smoked meth laced with fentanyl -UDS positive for meth only -assess mentation when more stable and sedation can be weaned # severe malnourishment -patient cachectic with BMI 15 -juvenile probation officer consult # hyponatremia -urine sodium 66 -IVF Code status is full code. DVT prophylaxis with heparin. Proxy is sister Elana. I have reviewed home meds and used all available resources to reconcile the home meds. Case discussed with ED physician/APC and patient will be admitted to the hospitalist service for further workup and management. I spent a total of 35 minutes of critical care time on this patient's care today; this time is exclusive of procedural time. This patient will be admitted as ICU and will require greater than 2 midnights of hospital time to treat septic shock.
[2023-12-14] MEDS: LACTATED RINGERS 1,000 ML 100 ML IV ×2 (15:10→23:52)
[2023-12-14] MEDS: fentaNYL 1,000 MCG in DEXTROSE 5% IN WATER 230 ML 8.176 MCG IV (15:31)
[2023-12-14 15:33] LABS: PCO2 ABG 68.9 mmHg (35-45); PO2 ABG 91 mmHg (80-100); pH ABG 7.34 (7.35-7.45)
[2023-12-14 15:34] LABS: Fractionated Inspired Oxygen 70; HCO3 ABG 38 mmol/L (23-27); Oxygen Saturation ABG 96 % (95-100); TCO2 ABG 40 mmol/L (23-27)
--- NOTE | 2023-12-14 15:35 | RT ---
Pt transported without incident to ICU and placed on [place] with current vent settings. No distress noted ans et tube secure with bag mask unit at [facility]
--- NOTE | 2023-12-14 15:38 | PM.CN.EICU ---
History of Present Illness Consult details IF CAMERA ACTIVATED, patient seen via real-time interactive audiovisual communication: Camera activated Date Patient Seen: 12/14/23 Chief complaint: unresponsive Reason for consult: Acute respiratory failure Consent obtained for tele-seating and mobility technologist care: Yes Patient Location: ICU Provider location (State): [place] Other participants/roles: Bedside RN Narrative: Patient is a 63 year old male with history of ankylosing spondylitis, opioid dependence and alcohol abuse who presents with altered mental status. By report patient has been feeling ill and developed a cough. He was able to get some percocet and then end up smoking it which he became unresponsive. In ER he was emergently intubated. He went into shock and received 2 liters IVF bolus and started on levophed. Stat CTH showed no acute abnormality. Started on vanc/cefepime. Admitted to ICU for further management. [facility] Medical History Tracheostomy in place Sepsis Muscle pain Foot pain Ankle pain Chronic back pain Acid reflux Tobacco use disorder, moderate, in early remission Hypertension Ankylosing spondylitis Alcohol abuse Ankylosing spondylitis (1985) GERD (gastroesophageal reflux disease) Hypertension Fracture cervical vertebra-closed Surgical History Status post incision and drainage History of open reduction and internal fixation (ORIF) procedure (2005) Status post colonoscopy (2012) History of tonsillectomy Family History Father No problems noted. Mother Cancer Other Alcoholism Colorectal cancer Social History household members: family Smoking Status: Current every day smoker Current Medications Current Medications Medications: Home Medications omeprazole 20 mg capsule,delayed release 20 mg PO QDAY #30 caps 11/19/19 [Rx Confirmed 12/21/22] multivitamin with folic acid 400 mcg tablet (Tab-A-Hiren) 1 tab PO DAILY #30 tabs 11/30/22 [Rx Confirmed 12/21/22] oxycodone 5 mg tablet 10 mg (2 x 5 mg) PO Q4HR PRN Pain, (1-10) #20 tabs 11/30/22 [Rx Confirmed 12/21/22] metoprolol succinate 50 mg tablet,extended release 24 hr (Toprol XL) 50 mg PO DAILY 12/21/22 [History Confirmed 12/21/22] Visit Medications (administered) Generic Name Dose Route Start Last Admin Trade Name Kiah PRN Reason Stop Dose Admin Famotidine 20 mg 12/14/23 12:15 12/14/23 12:34 Famotidine 20 Mg/2 Ml Vial IV 20 mg NOW JYOTI Administration Propofol 1,000 mg in 100 mls @ 1.402 mls/hr 12/14/23 10:45 12/14/23 14:30 Propofol IV 5 mcg/kg/min TITRATE JYOTI 1.402 mls/hr Titration Protocol 5 MCG/KG/MIN Vancomycin HCl 1,000 mg in 200 mls @ 200 mls/hr 12/14/23 13:00 12/14/23 14:29 Vancomycin IV Infused Q12H JYOTI Infusion dexmedeTOMIDine in 0.9 % NaCL 400 mcg in 100 mls @ 2.336 mls/hr 12/14/23 13:15 12/14/23 14:29 Precedex IV 0.3 mcg/kg/hr TITRATE JYOTI 3.504 mls/hr Titration Protocol 0.2 MCG/KG/HR NOREPINEPHRINE BITARTRATE/D5W 4 mg in 250 mls @ 17.52 mls/hr 12/14/23 13:44 12/14/23 15:32 Levophed IV 0.25 mcg/kg/min TITRATE JYOTI 43.8 mls/hr Titration Protocol 0.1 MCG/KG/MIN Fentanyl 1,000 mcg/ Dextrose 250 mls @ 8.176 mls/hr 12/14/23 14:45 12/14/23 15:31 IV 0.7 mcg/kg/hr TITRATE JYOTI 8.176 mls/hr Administration Protocol 0.7 MCG/KG/HR Lactated Ringer's 1,000 mls @ 100 mls/hr 12/14/23 14:45 12/14/23 15:10 Lactated Ringers IV 12/15/23 14:44 100 mls/hr CONT JYOTI Administration Exam Vital Signs (past 8 hours): - 12/14/23 10:01 12/14/23 10:04 12/14/23 10:05 Temperature 97.6 F Pulse Rate 112 H Respiratory Rate 25 H Blood Pressure 140/83 140/83 Pulse Oximetry 51 L 71 L Oxygen Delivery Method Room Air Non -Rebreather 12/14/23 10:05 12/14/23 10:09 12/14/23 10:09 Temperature Pulse Rate 119 H 121 H Respiratory Rate 10 L Blood Pressure 159/90 H Pulse Oximetry 54 L 85 L Oxygen Delivery Method Non -Rebreather Non -Rebreather 12/14/23 10:10 12/14/23 10:10 12/14/23 10:15 Temperature Pulse Rate 119 H 125 H Respiratory Rate 27 H 25 H Blood Pressure 159/90 H Pulse Oximetry 86 L 89 L Oxygen Delivery Method Non -Rebreather Non -Rebreather 12/14/23 10:20 12/14/23 10:20 12/14/23 10:23 Temperature Pulse Rate 125 H Respiratory Rate 26 H Blood Pressure 130/80 135/85 Pulse Oximetry 91 Oxygen Delivery Method Non -Rebreather 12/14/23 10:23 12/14/23 10:25 12/14/23 10:25 Temperature Pulse Rate 124 H 121 H Respiratory Rate 16 24 Blood Pressure 157/89 H Pulse Oximetry 74 L 86 L Oxygen Delivery Method Non -Rebreather Non -Rebreather 12/14/23 10:30 12/14/23 10:30 12/14/23 10:35 Temperature Pulse Rate 122 H Respiratory Rate 26 H Blood Pressure 140/89 136/92 H Pulse Oximetry 87 L Oxygen Delivery Method Non -Rebreather 12/14/23 10:35 12/14/23 10:40 12/14/23 10:40 Temperature Pulse Rate 123 H 133 H Respiratory Rate 25 H 16 Blood Pressure 132/88 Pulse Oximetry 88 L 83 L Oxygen Delivery Method Non -Rebreather Non -Rebreather 12/14/23 10:41 12/14/23 10:43 12/14/23 10:45 Temperature Pulse Rate 128 H Respiratory Rate 14 Blood Pressure Pulse Oximetry 93 97 Oxygen Delivery Method Mechanical Ventilation Mechanical Ventilation 12/14/23 10:45 12/14/23 10:45 12/14/23 10:50 Temperature Pulse Rate 143 H Respiratory Rate 14 Blood Pressure 99/67 126/93 H Pulse Oximetry 96 Oxygen Delivery Method Mechanical Ventilation 12/14/23 10:50 12/14/23 10:51 12/14/23 10:55 Temperature Pulse Rate 143 H Respiratory Rate 19 Blood Pressure Pulse Oximetry 100 99 98 Oxygen Delivery Method Mechanical Ventilation Mechanical Ventilation 12/14/23 10:55 12/14/23 10:55 12/14/23 11:00 Temperature Pulse Rate 135 H Respiratory Rate 14 Blood Pressure 125/87 131/90 Pulse Oximetry 99 Oxygen Delivery Method Mechanical Ventilation 12/14/23 11:00 12/14/23 11:05 12/14/23 11:05 Temperature Pulse Rate 133 H 129 H Respiratory Rate 23 15 Blood Pressure 134/87 Pulse Oximetry 99 96 Oxygen Delivery Method Mechanical Ventilation Mechanical Ventilation 12/14/23 11:10 12/14/23 11:10 12/14/23 11:15 Temperature 96.4 F L Pulse Rate 131 H Respiratory Rate 18 Blood Pressure 133/80 134/86 Pulse Oximetry 97 Oxygen Delivery Method Mechanical Ventilation 12/14/23 11:15 12/14/23 11:20 12/14/23 11:20 Temperature 96.1 F L 96.8 F L Pulse Rate 128 H 130 H Respiratory Rate 20 19 Blood Pressure 138/89 Pulse Oximetry 96 98 Oxygen Delivery Method Mechanical Ventilation Mechanical Ventilation 12/14/23 11:25 12/14/23 11:25 12/14/23 11:30 Temperature 97.0 F L 97.2 F L Pulse Rate 128 H 128 H Respiratory Rate 21 22 Blood Pressure 119/67 Pulse Oximetry 97 100 Oxygen Delivery Method Mechanical Ventilation Mechanical Ventilation 12/14/23 11:30 12/14/23 11:35 12/14/23 11:35 Temperature 97.3 F L Pulse Rate 126 H Respiratory Rate 20 Blood Pressure 120/70 110/67 Pulse Oximetry 100 Oxygen Delivery Method Mechanical Ventilation 12/14/23 11:40 12/14/23 11:40 12/14/23 11:45 Temperature 97.3 F L Pulse Rate 124 H Respiratory Rate 19 Blood Pressure 102/69 105/69 Pulse Oximetry 100 Oxygen Delivery Method Mechanical Ventilation 12/14/23 11:45 12/14/23 11:50 12/14/23 11:50 Temperature 97.5 F L 97.5 F L Pulse Rate 124 H 122 H Respiratory Rate 14 19 Blood Pressure 95/56 L Pulse Oximetry 100 100 Oxygen Delivery Method Mechanical Ventilation Mechanical Ventilation 12/14/23 11:55 12/14/23 11:55 12/14/23 12:00 Temperature 97.7 F Pulse Rate 121 H Respiratory Rate 18 Blood Pressure 96/57 L 97/56 L Pulse Oximetry 99 Oxygen Delivery Method Mechanical Ventilation 12/14/23 12:00 12/14/23 12:05 12/14/23 12:05 Temperature 97.7 F 97.9 F Pulse Rate 121 H 120 H Respiratory Rate 14 14 Blood Pressure 107/67 Pulse Oximetry 98 98 Oxygen Delivery Method Mechanical Ventilation 12/14/23 12:10 12/14/23 12:10 12/14/23 12:20 Temperature 97.9 F Pulse Rate 120 H Respiratory Rate 15 Blood Pressure 100/64 103/66 Pulse Oximetry 96 Oxygen Delivery Method 12/14/23 12:20 12/14/23 12:30 12/14/23 12:30 Temperature 98.1 F 98.2 F Pulse Rate 121 H 120 H Respiratory Rate 21 14 Blood Pressure 108/66 Pulse Oximetry 95 94 Oxygen Delivery Method 12/14/23 12:40 12/14/23 12:40 12/14/23 12:50 Temperature 98.4 F Pulse Rate 120 H 120 H Respiratory Rate 15 14 Blood Pressure 111/68 Pulse Oximetry 94 Oxygen Delivery Method 12/14/23 12:50 12/14/23 12:53 12/14/23 12:53 Temperature Pulse Rate 120 H 121 H Respiratory Rate 18 Blood Pressure 101/61 Pulse Oximetry 94 94 Oxygen Delivery Method 12/14/23 13:00 12/14/23 13:00 12/14/23 13:03 Temperature Pulse Rate 118 H 117 H Respiratory Rate 17 18 Blood Pressure 101/63 Pulse Oximetry 90 L 95 Oxygen Delivery Method 12/14/23 13:03 12/14/23 13:10 12/14/23 13:10 Temperature 99.0 F Pulse Rate 116 H Respiratory Rate 17 Blood Pressure 109/60 95/61 Pulse Oximetry 91 Oxygen Delivery Method 12/14/23 13:20 12/14/23 13:20 12/14/23 13:30 Temperature 99.1 F 99.5 F Pulse Rate 115 H 114 H Respiratory Rate 18 16 Blood Pressure 87/58 L Pulse Oximetry 90 L 88 L Oxygen Delivery Method 12/14/23 13:30 12/14/23 13:40 12/14/23 13:40 Temperature 99.7 F H Pulse Rate 110 H Respiratory Rate 14 Blood Pressure 95/57 L 74/51 L Pulse Oximetry 91 Oxygen Delivery Method 12/14/23 13:48 12/14/23 13:48 12/14/23 13:50 Temperature 99.9 F H Pulse Rate 109 H Respiratory Rate 15 Blood Pressure 82/52 L 80/51 L Pulse Oximetry 94 Oxygen Delivery Method 12/14/23 13:50 12/14/23 14:00 12/14/23 14:00 Temperature 99.9 F H 99.9 F H Pulse Rate 109 H 110 H Respiratory Rate 13 16 Blood Pressure 84/52 L Pulse Oximetry 93 92 Oxygen Delivery Method 12/14/23 14:10 12/14/23 14:10 12/14/23 14:20 Temperature 99.7 F H Pulse Rate 110 H Respiratory Rate 19 Blood Pressure 99/61 97/59 L Pulse Oximetry 93 Oxygen Delivery Method 12/14/23 14:20 12/14/23 14:45 12/14/23 14:53 Temperature 99.5 F Pulse Rate 109 H 112 H 111 H Respiratory Rate 20 15 Blood Pressure Pulse Oximetry 97 97 Oxygen Delivery Method 12/14/23 14:53 12/14/23 14:55 12/14/23 14:56 Temperature Pulse Rate 112 H 117 H Respiratory Rate Blood Pressure 81/53 L Pulse Oximetry 87 L 96 Oxygen Delivery Method 12/14/23 14:56 12/14/23 15:00 12/14/23 15:00 Temperature Pulse Rate 112 H Respiratory Rate Blood Pressure 79/47 L 95/64 Pulse Oximetry 97 Oxygen Delivery Method 12/14/23 15:05 12/14/23 15:10 12/14/23 15:14 Temperature 100.2 F H 99.7 F H 100.4 F H Pulse Rate 109 H 107 H 105 H Respiratory Rate Blood Pressure Pulse Oximetry 96 98 99 Oxygen Delivery Method 12/14/23 15:14 12/14/23 15:15 12/14/23 15:15 Temperature 100.4 F H Pulse Rate 107 H Respiratory Rate Blood Pressure 104/59 L 92/62 Pulse Oximetry 98 Oxygen Delivery Method 12/14/23 15:16 Temperature 100.4 F H Pulse Rate 107 H Respiratory Rate Blood Pressure Pulse Oximetry 98 Oxygen Delivery Method Oxygen Delivery Method Mechanical Ventilation Objective Labs 12/14/23 10:03 12/14/23 10:03 Labs: Laboratory Results - last 24 hr 01/20/24 01/20/24 01/20/24 10:03 10:21 10:26 WBC 31.0 H* RBC 4.20 L Hgb 11.0 L Hct 35.1 L MCV 83.5 MCH 26.2 MCHC 31.4 RDW 15.0 H Plt Count 673 H Neut % (Auto) Not Reportable Lymph % (Auto) Not Reportable [place] % (Auto) Not Reportable Eos % (Auto) Not Reportable Baso % (Auto) Not Reportable Lymph # (Auto) Not Reportable [place] # (Auto) Not Reportable Baso # (Auto) Not Reportable Total Counted 100 Seg Neutrophils % 84.0 H Band Neutrophils % 1.0 L Lymphocytes % (Manual) 5.0 L Monocytes % (Manual) 9.0 Metamyelocytes % 1.0 H Neutrophils # (Manual) 24119 H Platelet Estimate Increased on smear RBC Morphology Normal morphology PT 16.8 H INR 1.5 H ABG pH 7.23 L* ABG pCO2 92.0 H* ABG pO2 37 L* ABG HCO3 39 H ABG Total CO2 42 H ABG O2 Saturation 57 L* ABG Base Excess 11.0 H FiO2 100 Sodium 125 L Potassium 4.2 Chloride 80 L Carbon Dioxide 38 H BUN 21 H Creatinine 0.73 Estimated GFR > 60 BUN/Creatinine Ratio 28.8 H Glucose 152 H Lactate 4.0 H Calcium 9.6 Magnesium 2.0 Total Bilirubin 0.8 AST 28 ALT 17 Alkaline Phosphatase 133 H Ammonia NT-Pro-B Natriuret Pep 8410 H Total Protein 8.4 H Albumin 3.4 L Globulin 5.0 H Albumin/Globulin Ratio 0.7 L Lipase 37 Procalcitonin 2.52 H Urine Color Urine Appearance Urine pH Ur Specific [place] Urine Protein Urine Glucose (UA) Urine Ketones Urine Occult Blood Urine Nitrate Urine Bilirubin Urine Urobilinogen Ur Leukocyte Esterase Urine RBC Urine WBC Ur Squamous Epith Cells Urine Bacteria Ur Culture Indicated? Vol Urine Centrifuged Salicylates < 1.0 U Opiates 300ng/mL cut Ur Oxycodone Screen Urine Methadone Screen Acetaminophen < 10 Ur Barbiturates Screen U Tricyclic Antidepress Ur Phencyclidine Scrn Ur Amphetamines Screen U Methamphetamines Scrn Ur MDMA Scrn (Ecstasy) U Benzodiazepines Scrn Urine Cocaine Screen U Marijuana (THC) Screen Urine Specific [place] Ethyl Alcohol < 10 Ur Creatinine Chlamy pneumoniae PCR Not detected Adenovirus (PCR) Detected H B.parapertussis DNA PCR Not detected Coronavirus OC43 (PCR) Not detected Coronavirus HKU1 (PCR) Not detected Coronavirus 229E (PCR) Not detected SARS-CoV-2 (PCR) Not detected Coronavirus NL63 (PCR) Not detected Human Metapneumovir PCR Not detected Influenza Type A (PCR) Not detected Influenza Type B (PCR) Not detected M. pneumoniae (PCR) Not detected Parainfluenza 1 (PCR) Not detected Parainfluenza 2 (PCR) Not detected Parainfluenza 3 (PCR) Not detected Parainfluenza 4 (PCR) Not detected RSV (PCR) Not detected Entero/Rhino (PCR) Detected H 12/14/23 12/14/23 12/14/23 10:30 10:57 11:53 WBC RBC Hgb Hct MCV MCH MCHC RDW Plt Count Neut % (Auto) Lymph % (Auto) [place] % (Auto) Eos % (Auto) Baso % (Auto) Lymph # (Auto) [place] # (Auto) Baso # (Auto) Total Counted Seg Neutrophils % Band Neutrophils % Lymphocytes % (Manual) Monocytes % (Manual) Metamyelocytes % Neutrophils # (Manual) Platelet Estimate RBC Morphology PT INR ABG pH ABG pCO2 ABG pO2 ABG HCO3 ABG Total CO2 ABG O2 Saturation ABG Base Excess FiO2 Sodium Potassium Chloride Carbon Dioxide BUN Creatinine Estimated GFR BUN/Creatinine Ratio Glucose Lactate Calcium Magnesium Total Bilirubin AST ALT Alkaline Phosphatase Ammonia 18 NT-Pro-B Natriuret Pep Total Protein Albumin Globulin Albumin/Globulin Ratio Lipase Procalcitonin Urine Color Yellow Urine Appearance Clear Urine pH 6.5 Ur Specific [place] 1.020 Urine Protein 1+ H Urine Glucose (UA) Negative Urine Ketones Negative Urine Occult Blood 1+ H Urine Nitrate Negative Urine Bilirubin Negative Urine Urobilinogen 0.2 Ur Leukocyte Esterase Negative Urine RBC 0-1/hpf Urine WBC None seen Ur Squamous Epith Cells None seen Urine Bacteria None seen Ur Culture Indicated? Cult not indicated Vol Urine Centrifuged Low vol <1ml unspun A Salicylates U Opiates 300ng/mL cut Negative Ur Oxycodone Screen Negative Urine Methadone Screen Negative Acetaminophen Ur Barbiturates Screen Negative U Tricyclic Antidepress Negative Ur Phencyclidine Scrn Negative Ur Amphetamines Screen Negative U Methamphetamines Scrn Positive H Ur MDMA Scrn (Ecstasy) Negative U Benzodiazepines Scrn Negative Urine Cocaine Screen Negative U Marijuana (THC) Screen Negative Urine Specific [place] Ethyl Alcohol Ur Creatinine Chlamy pneumoniae PCR Adenovirus (PCR) B.parapertussis DNA PCR Coronavirus OC43 (PCR) Coronavirus HKU1 (PCR) Coronavirus 229E (PCR) SARS-CoV-2 (PCR) Cancelled Coronavirus NL63 (PCR) Human Metapneumovir PCR Influenza Type A (PCR) Influenza Type B (PCR) M. pneumoniae (PCR) Parainfluenza 1 (PCR) Parainfluenza 2 (PCR) Parainfluenza 3 (PCR) Parainfluenza 4 (PCR) RSV (PCR) Entero/Rhino (PCR) 12/14/23 12/14/23 12/14/23 11:53 12:02 14:35 WBC RBC Hgb Hct MCV MCH MCHC RDW Plt Count Neut % (Auto) Lymph % (Auto) [place] % (Auto) Eos % (Auto) Baso % (Auto) Lymph # (Auto) [place] # (Auto) Baso # (Auto) Total Counted Seg Neutrophils % Band Neutrophils % Lymphocytes % (Manual) Monocytes % (Manual) Metamyelocytes % Neutrophils # (Manual) Platelet Estimate RBC Morphology PT INR ABG pH 7.34 L ABG pCO2 68.9 H* ABG pO2 91 ABG HCO3 38 H ABG Total CO2 40 H ABG O2 Saturation 96 ABG Base Excess 12.0 H FiO2 70 Sodium Potassium Chloride Carbon Dioxide BUN Creatinine Estimated GFR BUN/Creatinine Ratio Glucose Lactate 0.9 Calcium Magnesium Total Bilirubin AST ALT Alkaline Phosphatase Ammonia NT-Pro-B Natriuret Pep Total Protein Albumin Globulin Albumin/Globulin Ratio Lipase Procalcitonin Urine Color Urine Appearance Urine pH Normal Ur Specific [place] Urine Protein Urine Glucose (UA) Urine Ketones Urine Occult Blood Urine Nitrate Urine Bilirubin Urine Urobilinogen Ur Leukocyte Esterase Urine RBC Urine WBC Ur Squamous Epith Cells Urine Bacteria Ur Culture Indicated? Vol Urine Centrifuged Salicylates U Opiates 300ng/mL cut Ur Oxycodone Screen Urine Methadone Screen Acetaminophen Ur Barbiturates Screen U Tricyclic Antidepress Ur Phencyclidine Scrn Ur Amphetamines Screen U Methamphetamines Scrn Ur MDMA Scrn (Ecstasy) U Benzodiazepines Scrn Urine Cocaine Screen U Marijuana (THC) Screen Urine Specific [place] Normal Ethyl Alcohol Ur Creatinine Normal Chlamy pneumoniae PCR Adenovirus (PCR) B.parapertussis DNA PCR Coronavirus OC43 (PCR) Coronavirus HKU1 (PCR) Coronavirus 229E (PCR) SARS-CoV-2 (PCR) Coronavirus NL63 (PCR) Human Metapneumovir PCR Influenza Type A (PCR) Influenza Type B (PCR) M. pneumoniae (PCR) Parainfluenza 1 (PCR) Parainfluenza 2 (PCR) Parainfluenza 3 (PCR) Parainfluenza 4 (PCR) RSV (PCR) Entero/Rhino (PCR) Assessment & Plan Assessment & Plan narrative: NEURO: # Acute encephalopathy -- Secondary to sepsis and opioid abuse -- Intuabted and sedated -- CTH negative -- On propofol, precedex, and fentanyl -- RASS goal -1 to 0 -- Daily SAT and SBT -- Daily CAM ICU RESP: # Acute hypoxemia respiratory failure -- Secondary to aspiration PNA -- Intubated and sedated -- FiO2 down to 70% -- Check trach aspirate -- On vanc/cefepime -- HOB elevation -- Aspiration precaution -- Goal SpO2 > 88% CVS: # Distributive shock -- Secondary to sepsis -- Added stress dose steroids -- On levophed -- Abx as below -- Added vasopressin -- MAP goal > 65 ID: # Septic shock -- Secondary to PNA from adeno/rhino w/ possible superimposed bacterial -- On vanc/cefepime -- Follow up cx data : # Hyponatremia -- Secondary to dehydration -- Trend BMP every 4 hours -- Goal Na 131-133 -- Check urine lytes ENDO: -- Goal BS < 180 D/w bedside RN.
[2023-12-14] MEDS: ACETAMINOPHEN 325 MG TABLET 650 MG PO (15:56)
[2023-12-14] MEDS: VASOPRESSIN 40 UNIT in SODIUM CHLORIDE 0.9% 100 ML 4.5 UNIT IV (16:19)
[2023-12-14 17:00] LABS: Sodium Urine Random 66 mmol/L (30-90)
[2023-12-14 17:16] LABS: Sodium 127 mmol/L (137-145)
[2023-12-14] MEDS: HYDROCORTISONE 100 MG/2 ML VIAL 50 MG IV ×2 (17:17→23:25)
[2023-12-14] MEDS: CHLORHEXIDINE GLUCONATE 15 ML CUP PO ×2 (17:17→23:25)
[2023-12-14 17:43] LABS: MRSA (Nasal) PCR DETECTED (Not Detect)
[2023-12-14] MEDS: LACTATED RINGERS 500 ML 1000 ML IV (18:34)
--- NOTE | 2023-12-14 19:35 | PC.NURSE ---
Pt admitted at 1450, spoke with tele-ICU provider and hospitalist about hypotension, pain, fever, decreased urine output, restraint order, and lab values. Tylenol given and ice packs placed on pt, fever reduced but then increased again, ice packs placed again until next dose of tylenol can be given. Completed medicine reconciliation to best of RN's ability with assistance from family and pharmacy refills. VSS with vasopressors. Fentanyl titrated to pt's pain level as assessed by [facility].
--- NOTE | 2023-12-14 20:26 | P.ICUMDRN_ITS ---
- Date Patient Seen: 12/14/23 :: This patient was seen via real time interactive two-way audiovisual telecommunic ation. Note: Patient remains intubated and sedated. On levophed and vasopressin. Cont abx and follow up cx. D/w bedside RN.
[2023-12-14] MEDS: NOREPINEPHRINE BITARTRATE/D5W 4 MG/250 ML PLAST..BAG 105.12 MG IV ×2 (20:57→23:05)
[2023-12-14] MEDS: LACTATED RINGERS 1,000 ML 1000 ML IV (21:30)
[2023-12-14] MEDS: HEPARIN 5,000 UNIT/ML VIAL 5000 UNIT SUBCUT (21:34)
--- NOTE | 2023-12-14 22:54 | PM.AN.INVM ---
Invasive Monitor Note Procedure Procedure: Arterial Catheter Insertion Start Time: 22:40 Stop Time: 22:50 Indication: Medical Management Timeout: 21:30 Barrier Precautions Utilized: Mask, Hand Hygiene, 2% Chlorhexidine Cutaneous Antisepsis and Maintenance of Sterile Field Vessel Utilized: Radial Artery: Left Lines Catheters Utilized: 20 G Arrow Arterial Catheter Insertion Site Care: Sterile Occlusive Dressing Applied and Other (Tape) Clinical indicators suggest catheter tip resides in: Other (Vessel and catheter tip visualized with ultrasound. Arterial waveform observed.) Ultrasound Ultrasound Guidance Utilized: Yes Ultrasound was used to identify the vessel. Assessed vessel was patent.: Radial Artery Ultrasound was used to visualize vascular needle entry into the: Radial Artery Limited exam reveals anatomically normal vessel with no apparent abnormal findings.: Yes Permanent ultrasound image obtained and interpretation documented.: No Complications Complications: none
[2023-12-15] VITALS (292 sets, daily range): BP systolic 81–136; BP diastolic 50–97; PULSE 70–100; RESP 16–26; TEMP 36.9–38.8; O2SAT 89–100
[2023-12-15] MEDS: VANCOMYCIN 1,000 MG/200 ML PIGGYBACK 200 MG IV ×2 (00:58→13:58)
[2023-12-15 03:41] LABS: Hematocrit 28.7 % (41-53); Hemoglobin 9.4 g/dL (13.5-17.5); Mean Corpuscular HGB Conc 32.9 % (30-36); Mean Corpuscular Volume 82.3 fL (80-100); Platelet Count 499 X10^3/uL (150-400); Red Blood Cell Count 3.48 X10^6/uL (4.5-5.9); Red Cell Distribution Width 15.5 % (11.6-14.8); White Blood Cell Count 28.1 X10^3/uL (4.5-11.0)
[2023-12-15 03:45] LABS: Add Manual Diff / Slide Review YES
[2023-12-15 03:58] LABS: Vancomycin Peak 17.5 ug/mL (20-40)
[2023-12-15 04:12] LABS: BUN Creatinine Ratio 21.7 (6-22); Blood Urea Nitrogen 10 mg/dL (9-20); Carbon Dioxide 36 mmol/L (22-32); Chloride 82 mmol/L (98-107); Estimated Glomerular Filt Rate > 60 mL/min (>60); Glucose 96 mg/dL (80-110); HEMOLYSIS < 15 (0-50); Potassium 2.8 mmol/L (3.4-5.1); Sodium 123 mmol/L (137-145)
[2023-12-15 04:15] LABS: Neutrophils Absolute Manual 25852 /uL (3000-5900); Total Cells Counted 100
[2023-12-15 04:16] LABS: Hypochromasia 1+
[2023-12-15 04:57] LABS: Magnesium 1.1 mg/dL (1.6-2.3)
[2023-12-15] MEDS: CHLORHEXIDINE GLUCONATE 15 ML CUP PO ×4 (05:36→23:25)
[2023-12-15] MEDS: HYDROCORTISONE 100 MG/2 ML VIAL 50 MG IV ×4 (05:37→23:22)
[2023-12-15] MEDS: POTASSIUM CHLORIDE 20 MEQ/15 ML UDC TUBE (05:37)
[2023-12-15] MEDS: POTASSIUM CHLORIDE IN WATER 10 MEQ/100 ML PIGGYBACK 100 MEQ IV ×8 (05:37→20:45)
[2023-12-15] MEDS: MAGNESIUM SULFATE 4 GM/100 ML PIGGYBACK IV (05:37)
[2023-12-15] MEDS: SODIUM CHLORIDE 3 % 100 ML 20 ML IV (05:41)
[2023-12-15] MEDS: NOREPINEPHRINE BITARTRATE/D5W 4 MG/250 ML PLAST..BAG 26.28 MG IV (05:58)
[2023-12-15] MEDS: fentaNYL 1,000 MCG in DEXTROSE 5% IN WATER 230 ML 23.36 MCG IV ×2 (06:27→17:16)
[2023-12-15] MEDS: CEFEPIME 2 GM in SODIUM CHLORIDE 0.9% 100 ML IV ×2 (07:47→20:06)
[2023-12-15] MEDS: propofoL 1,000 MG/100 ML VIAL 1.402 MG IV (08:20)
--- NOTE | 2023-12-15 08:21 | PC.NURSE ---
Day shift: Pt sedated and intubated. Lungs coarse and diminished. Per provider, propofol titrated down, Precedex titrated. Propofol not scanned from previous shift, scanned to document titration. Pt making eye contact, able to nod, shake head, grasp hand. BP stable on pressors as ordered (See MAR). ET tube leak, provider notified, RT notified. Anesthesia to replace ET tube, care ongoing, will continue to monitor.
--- NOTE | 2023-12-15 08:28 | CM.DANOTE ---
Addendum entered by VARGAS Cutler 12/15/23 14:18: ADD: TA met bedside with niece Lizeth ([phone]) and her Sig Other and she confirms that [place] [facility] [place] spouse's brother (pt's Brother inlaw) who also drinks and there are a couple other people staying in the home that also have BECKI/ETOH use. Lizeth states pt is very stubborn and I know he refused HH and BECKI tx or supports after he discharged home last time and Lizeth has attempted to stop by regularly to get pt to eat but recently she has not been able to stop by as she herself is 9.5 mo and going to school. Lizeth is attempting to get in contact with pt's son Yifan as well and [place] to track him down next and has also been in contact with Yifan's mother Mercedes. Lizeth also states that she believes pt's contact Dtr Kelsea is pt's DPOA (cell [phone] email: [email or web address].) Radha is the health Setup Technician for the [facility]. Lizeth has also left msg for Dtr that hospital staff are trying to contact her for coordination of care. TA left msg for Dtr Kelsea as well requesting she call back and help with coordination as she finally did at pt's last admission and if she has DPOA pwk to please provide to the hospital to scan into EMR and for medical decision maker. BF Addendum entered by VARGAS Cutler 12/15/23 12:49: ADD: Just attempted to call pt's listed medical contact son Yifan [phone] and went straight to full voicemail box. Called alternate number listed in pt room [phone] and number is pt's ex- Mercedes (Yifan's mom) and she confirms she will attempt to get in touch with Yifan now as TA requested he come bedside so MD can give him an update on pt status and answer any questions etc. Mercedes states she will get Yiafn to come into the hospital lillian. *update, pts UDS+ for methamphetamines not Percocet. BF Addendum entered by VARGAS Cutler 12/15/23 11:46: ADD: Return msg from [facility] confirming that they had accepted pt's referral at last admit one year ago and reached out to pt multiple times after discharge and pt never called back or scheduled for start of care so Sig was not able to admit him as a new client. BF Original Note: Patient is a 63 yo male who was admitted on 12/14/23 for Unresponsive. Pt has [facility] and [facility] for insurance and his PCP is Yuliya Morin. EMR was reviewed. Per MD, family found pt unresponsive after he had not been feeling well for a few days and determined that pt had taken another family member's Percocet and likely smoked it. EMS was called and pt responded some to Narcan but in the ED his respirations went into the 50's and pt was intubated and sedated and brought up to the ICU. Pt was last admitted almost a year ago in Oct 2022-Nov 2022 for ETOH withdrawal and was intubated and sedated at that time and struggled to maintain extubation and had multiple intubations and ended up with Trach/PEG. Attempts were made to transfer pt to [facility] but pt's straight Medicaid was a barrier and eventually once he was able to be switched to [facility] with support from [facility] he was stable enough for trach to be discontinued and discharged home with PEG tube for a couple weeks before [facility] was able to remove and [facility]. POLST was completed at last admission with Full Code and Full treatment and having son Yifan as his medical contact but currently no DPOA on file. Pt declined any BECKI/ETOH resources at last admission and pt's brother had been living with him who also had long hx of ETOH abuse. Pt has multiple supportive family members including his son, his niece Lizeth, his ex- Mercedes and step Dtr Sharda, and family member José Miguel Rodriguez. Son Yifan has a hx of incarceration. Pt had a hx of increased drinking 4 years ago after his Sig Other of cancer and pt has not had any BECKI tx or supports during that time as he declined any tx. Per RN, pt has significant weight loss and malnutrition since admission a year ago and his prognosis is guarded. Family members were bedside last night including his son Yifan with contact numbers [phone] and [phone] who stated they will stay at pt's house last night and return again today. Plan: SW to follow closely for family members to arrive today for further discharge planning discussion and to determine pt's progress and ability to be successfully extubated as currently his prognosis is guarded. VARGAS Cutler Discharge Planning/Care Management CM Discharge Assessment Start: 12/15/23 08:22 Freq: Status: Active Protocol: Document 12/15/23 08:23 BF (Rec: 12/15/23 08:28 BF [id number]) Discharge Planning Assessment Assigned Asic Verification Engineer VARGAS Rios DPOA/Assigned Designee Name informally next contact is estela Saha Contact Information [phone] Advance Directives? Yes Advance Directives on File Yes: POLST scanned into EMR History Provided By Family Member,Medical Record Has Patient been admitted in last 30 No days? Comment last admit in Oct 2022-Nov 2022 about a year ago for ETOH /intubation/Trach/PEG Prior Living Arrangements House Household Members family Type of transporation used prior to Relies on Others admit Independent with ADL's Yes: mostly Is patient alert and oriented? Yes Needs Assistance With Managing Medications,Home Chores / Shopping Caregiver for Another No DME Already Rented / Owned FWW / Walker Comment Pending pt's progress post extubation and progress Barriers to Discharge Yes Comment Unknown at this time, patient intubated and sedated. Will plan to assess needs when patient able to participate. Pt's hx of ETOH and BECKI are barriers to SNF as well as his insurance Transportation Arrangement TBD Additional Comment Pending pt's progress if pt can be successfully extubated and work with PT/OT Whiteboard Updated in Patient Room with Yes name and ext. # of Asic Verification Engineer Review Status In Process Please Provide Date Initial DC 12/15/23 Assessment Was Performed Next Review Type Continued Stay Review
--- NOTE | 2023-12-15 08:43 | DI.RAD.S_ITS ---
PROCEDURE: XR CHEST 1V INDICATIONS: ET tube placement TECHNIQUE: One view of the chest was acquired. COMPARISON: [facility], CR, XR CHEST 1V, 12/14/2023, 11:15. FINDINGS: Surgical changes and devices: Endotracheal tube tip 5.5 cm above the roxi. Right IJ central venous line tip in the distal SVC. Nasogastric tube in the stomach. Cervical thoracic posterior carlitos and screw instrumentation Lungs and pleura: Moderate vascular congestion, patchy bilateral pulmonary infiltrates with left basilar atelectasis and or infiltrate. Mediastinum: Mediastinal contours appear normal. Heart size is normal. Bones and chest wall: No suspicious bony lesions. Overlying soft tissues appear unremarkable. IMPRESSION: Endotracheal tube tip 5.5 cm above the roxi. Other lines and tubes in good position. Patchy bilateral pulmonary infiltrates consistent with infection or edema Approved by: Jasper Petit M.D. on 12/15/2023 at 9:08
--- NOTE | 2023-12-15 08:44 | PM.PN.EICU ---
Subjective Subjective IF CAMERA ACTIVATED, patient seen via real-time interactive audiovisual communication: Camera activated Consent obtained for tele-cable dispatcher care: Yes Patient Location: ICU Provider location (State): [place] Other participants/roles: Bedside RN Interval history: Patient's name: José Miguel Do 63/y : 1960 The patient was seen via real-time interactive audiovisual communication. Camera activated. Briefly, a 63 years old male with history of ankylosing spondylitis, opiate dependence and alcohol abuse, presented with altered mental status, cough and feeling ill for last few days, found to be unresponsive after taking Percocet, required to be intubated in the ED for airway protection. Course complicated by hypotension with shock requiring pressors. Started on IV antibiotics cefepime and vancomycin, admitted to ICU for further management. Overnight, remains on the ventilator. Current vent settings reviewed. AC/50%/04/09/475 cc Still remains on norepinephrine gtt. at 0.1 mct/kg/min and vasopressin gt at 0.03 U/hr. Receiving hypertonic saline 20 cc/h for 4 hours after drop serum sodium level from 126 on admission to 122 overnight. Most recent serum sodium now improved to 123. This morning, patient ET tube required to be exchanged due to malfunction of the cuff. Most recent labs and imaging studies reviewed. WBC 28.1, hemoglobin 9.4, platelet count 499. Most recent ABG with pH 7.34, pCO2 68.9, PaO2 91, bicarb 38. Blood chemistry with sodium 123, potassium 2.8, chloride 82, CO2 36, creatinine 0.46. MRSA screen positive. Urine tox screen positive for methamphetamine. Skin positive for adenovirus and rhinovirus on admission. Most recent CT head with no acute intracranial hemorrhage or mass effect. Bilateral maxillary sinus air-fluid levels consistent with intubation. Most recent chest x-ray with diffuse bilateral pulmonary opacities suspicious for pneumonia or aspiration. Temperature 100.4 ?F, BP 106/66, pulse 81, RR 17. Urine output 1250 cc last shift. Current Medications Current Medications Medications: Home Medications albuterol 90 mcg/actuation aerosol inhaler 90 mcg inhalation PRN PRN Shortness Of Breath 12/14/23 [History Confirmed 12/14/23] Visit Medications (administered) Generic Name Dose Route Start Last Admin Trade Name Freq PRN Reason Stop Dose Admin Acetaminophen 650 mg 12/14/23 15:39 12/14/23 15:56 Acetaminophen 325 Mg Tablet PO 650 mg Q6H PRN Administration Fever/Mild Pain (1-3) Chlorhexidine Gluconate 15 ml 12/14/23 18:00 12/15/23 05:36 Chlorhexidine Gluconate 15 Ml Cup PO 15 ml Q6HR JYOTI Administration Famotidine 20 mg 12/14/23 12:15 12/14/23 21:34 Famotidine 20 Mg/2 Ml Vial IV 20 mg NOW JYOIT Administration Famotidine 20 mg 12/14/23 21:00 12/14/23 21:35 Famotidine 20 Mg/2 Ml Vial IV 20 mg BID JYOTI Administration Heparin Sodium (Porcine) 5,000 unit 12/14/23 21:00 12/14/23 21:34 Heparin 5,000 Unit/Ml Vial SUBCUT 5,000 unit BID JYOTI Administration Hydrocortisone 50 mg 12/14/23 18:00 12/15/23 05:37 Hydrocortisone 100 Mg/2 Ml Vial IV 50 mg Q6HR JYOTI Administration Vancomycin HCl 1,000 mg in 200 mls @ 200 mls/hr 12/14/23 13:00 12/15/23 01:58 Vancomycin IV Infused Q12H JYOTI Infusion Cefepime HCl 2 gm/ Sodium 100 mls @ 200 mls/hr 12/14/23 20:00 12/15/23 07:47 Chloride IV 200 mls/hr Q12H JYOTI Administration Fentanyl 1,000 mcg/ Dextrose 250 mls @ 8.176 mls/hr 12/14/23 14:45 12/15/23 06:27 IV 2 mcg/kg/hr TITRATE JYOTI 23.36 mls/hr Administration Protocol 0.7 MCG/KG/HR Lactated Ringer's 1,000 mls @ 100 mls/hr 12/14/23 14:45 12/14/23 23:52 Lactated Ringers IV 12/15/23 14:44 100 mls/hr CONT JYOTI Administration Propofol 1,000 mg in 100 mls @ 1.402 mls/hr 12/14/23 15:45 12/15/23 08:20 Propofol IV 5 mcg/kg/min TITRATE JYOTI 1.402 mls/hr Administration Protocol 5 MCG/KG/MIN Vasopressin 40 unit/ Sodium 102 mls @ 4.5 mls/hr 12/14/23 15:41 12/14/23 16:19 Chloride IV 4.5 mls/hr CONT JYOTI Administration dexmedeTOMIDine in 0.9 % NaCL 400 mcg in 100 mls @ 2.336 mls/hr 12/14/23 15:45 12/15/23 08:19 Precedex IV 0.2 mcg/kg/hr TITRATE JYOTI 2.336 mls/hr Titration 0.2 MCG/KG/HR NOREPINEPHRINE BITARTRATE/D5W 4 mg in 250 mls @ 17.52 mls/hr 12/14/23 15:43 12/15/23 05:59 Levophed IV 0.1 mcg/kg/min TITRATE JYOTI 17.52 mls/hr Titration Protocol 0.1 MCG/KG/MIN Sodium Chloride 100 mls @ 20 mls/hr 12/15/23 04:45 12/15/23 05:41 Hypertonic Saline 3% IV 12/15/23 09:44 20 mls/hr NOW ONE Administration POTASSIUM CHLORIDE IN WATER 10 meq in 100 mls @ 100 mls/hr 12/15/23 04:45 12/15/23 07:50 Potassium Cl 10 Meq/100 Ml Ruth IV 12/15/23 08:44 100 mls/hr Q1H JYOTI Administration Magnesium Sulfate 4 gm in 100 mls @ 25 mls/hr 12/15/23 05:02 12/15/23 05:37 Magnesium Sulfate IV 12/15/23 09:01 25 mls/hr NOW ONE Administration Objective Ventilator Parameters: Ventilator Settings FiO2 65 RT Vent Frequency 16 Ventilator Tidal Volume 435 Exhaled Positive End Expiratory 5 Pressure Inspiratory Phase Time 0.9 I:E Ratio 1:2.9 Patient Position Supine Labs 12/15/23 03:16 12/15/23 03:16 Labs: Laboratory Results - last 24 hr 12/14/23 12/14/23 12/14/23 10:03 10:21 10:26 WBC 31.0 H* RBC 4.20 L Hgb 11.0 L Hct 35.1 L MCV 83.5 MCH 26.2 MCHC 31.4 RDW 15.0 H Plt Count 673 H Neut % (Auto) Not Reportable Lymph % (Auto) Not Reportable [place] % (Auto) Not Reportable Eos % (Auto) Not Reportable Baso % (Auto) Not Reportable Lymph # (Auto) Not Reportable [place] # (Auto) Not Reportable Baso # (Auto) Not Reportable Total Counted 100 Seg Neutrophils % 84.0 H Band Neutrophils % 1.0 L Lymphocytes % (Manual) 5.0 L Monocytes % (Manual) 9.0 Metamyelocytes % 1.0 H Neutrophils # (Manual) 20077 H Platelet Estimate Increased on smear RBC Morphology Normal morphology Hypochromasia PT 16.8 H INR 1.5 H ABG pH 7.23 L* ABG pCO2 92.0 H* ABG pO2 37 L* ABG HCO3 39 H ABG Total CO2 42 H ABG O2 Saturation 57 L* ABG Base Excess 11.0 H FiO2 100 Sodium 125 L Potassium 4.2 Chloride 80 L Carbon Dioxide 38 H BUN 21 H Creatinine 0.73 Estimated GFR > 60 BUN/Creatinine Ratio 28.8 H Glucose 152 H Lactate 4.0 H Calcium 9.6 Magnesium 2.0 Total Bilirubin 0.8 AST 28 ALT 17 Alkaline Phosphatase 133 H Ammonia NT-Pro-B Natriuret Pep 8410 H Total Protein 8.4 H Albumin 3.4 L Globulin 5.0 H Albumin/Globulin Ratio 0.7 L Lipase 37 Procalcitonin 2.52 H Urine Color Urine Appearance Urine pH Ur Specific [place] Urine Protein Urine Glucose (UA) Urine Ketones Urine Occult Blood Urine Nitrate Urine Bilirubin Urine Urobilinogen Ur Leukocyte Esterase Urine RBC Urine WBC Ur Squamous Epith Cells Urine Bacteria Ur Culture Indicated? Vol Urine Centrifuged Ur Random Sodium Nasal Screen MRSA (PCR) Vancomycin Peak Salicylates < 1.0 U Opiates 300ng/mL cut Ur Oxycodone Screen Urine Methadone Screen Acetaminophen < 10 Ur Barbiturates Screen U Tricyclic Antidepress Ur Phencyclidine Scrn Ur Amphetamines Screen U Methamphetamines Scrn Ur MDMA Scrn (Ecstasy) U Benzodiazepines Scrn Urine Cocaine Screen U Marijuana (THC) Screen Urine Specific [place] Ethyl Alcohol < 10 Ur Creatinine Chlamy pneumoniae PCR Not detected Adenovirus (PCR) Detected H B.parapertussis DNA PCR Not detected Coronavirus OC43 (PCR) Not detected Coronavirus HKU1 (PCR) Not detected Coronavirus 229E (PCR) Not detected SARS-CoV-2 (PCR) Not detected Coronavirus NL63 (PCR) Not detected Human Metapneumovir PCR Not detected Influenza Type A (PCR) Not detected Influenza Type B (PCR) Not detected M. pneumoniae (PCR) Not detected Parainfluenza 1 (PCR) Not detected Parainfluenza 2 (PCR) Not detected Parainfluenza 3 (PCR) Not detected Parainfluenza 4 (PCR) Not detected RSV (PCR) Not detected Entero/Rhino (PCR) Detected H 12/14/23 12/14/23 12/14/23 10:30 10:57 11:53 WBC RBC Hgb Hct MCV MCH MCHC RDW Plt Count Neut % (Auto) Lymph % (Auto) [place] % (Auto) Eos % (Auto) Baso % (Auto) Lymph # (Auto) [place] # (Auto) Baso # (Auto) Total Counted Seg Neutrophils % Band Neutrophils % Lymphocytes % (Manual) Monocytes % (Manual) Metamyelocytes % Neutrophils # (Manual) Platelet Estimate RBC Morphology Hypochromasia PT INR ABG pH ABG pCO2 ABG pO2 ABG HCO3 ABG Total CO2 ABG O2 Saturation ABG Base Excess FiO2 Sodium Potassium Chloride Carbon Dioxide BUN Creatinine Estimated GFR BUN/Creatinine Ratio Glucose Lactate Calcium Magnesium Total Bilirubin AST ALT Alkaline Phosphatase Ammonia 18 NT-Pro-B Natriuret Pep Total Protein Albumin Globulin Albumin/Globulin Ratio Lipase Procalcitonin Urine Color Yellow Urine Appearance Clear Urine pH 6.5 Ur Specific [place] 1.020 Urine Protein 1+ H Urine Glucose (UA) Negative Urine Ketones Negative Urine Occult Blood 1+ H Urine Nitrate Negative Urine Bilirubin Negative Urine Urobilinogen 0.2 Ur Leukocyte Esterase Negative Urine RBC 0-1/hpf Urine WBC None seen Ur Squamous Epith Cells None seen Urine Bacteria None seen Ur Culture Indicated? Cult not indicated Vol Urine Centrifuged Low vol <1ml unspun A Ur Random Sodium 66 Nasal Screen MRSA (PCR) Vancomycin Peak Salicylates U Opiates 300ng/mL cut Negative Ur Oxycodone Screen Negative Urine Methadone Screen Negative Acetaminophen Ur Barbiturates Screen Negative U Tricyclic Antidepress Negative Ur Phencyclidine Scrn Negative Ur Amphetamines Screen Negative U Methamphetamines Scrn Positive H Ur MDMA Scrn (Ecstasy) Negative U Benzodiazepines Scrn Negative Urine Cocaine Screen Negative U Marijuana (THC) Screen Negative Urine Specific [place] Ethyl Alcohol Ur Creatinine Chlamy pneumoniae PCR Adenovirus (PCR) B.parapertussis DNA PCR Coronavirus OC43 (PCR) Coronavirus HKU1 (PCR) Coronavirus 229E (PCR) SARS-CoV-2 (PCR) Cancelled Coronavirus NL63 (PCR) Human Metapneumovir PCR Influenza Type A (PCR) Influenza Type B (PCR) M. pneumoniae (PCR) Parainfluenza 1 (PCR) Parainfluenza 2 (PCR) Parainfluenza 3 (PCR) Parainfluenza 4 (PCR) RSV (PCR) Entero/Rhino (PCR) 12/14/23 12/14/23 12/14/23 11:53 12:02 14:35 WBC RBC Hgb Hct MCV MCH MCHC RDW Plt Count Neut % (Auto) Lymph % (Auto) [place] % (Auto) Eos % (Auto) Baso % (Auto) Lymph # (Auto) [place] # (Auto) Baso # (Auto) Total Counted Seg Neutrophils % Band Neutrophils % Lymphocytes % (Manual) Monocytes % (Manual) Metamyelocytes % Neutrophils # (Manual) Platelet Estimate RBC Morphology Hypochromasia PT INR ABG pH 7.34 L ABG pCO2 68.9 H* ABG pO2 91 ABG HCO3 38 H ABG Total CO2 40 H ABG O2 Saturation 96 ABG Base Excess 12.0 H FiO2 70 Sodium Potassium Chloride Carbon Dioxide BUN Creatinine Estimated GFR BUN/Creatinine Ratio Glucose Lactate 0.9 Calcium Magnesium Total Bilirubin AST ALT Alkaline Phosphatase Ammonia NT-Pro-B Natriuret Pep Total Protein Albumin Globulin Albumin/Globulin Ratio Lipase Procalcitonin Urine Color Urine Appearance Urine pH Normal Ur Specific [place] Urine Protein Urine Glucose (UA) Urine Ketones Urine Occult Blood Urine Nitrate Urine Bilirubin Urine Urobilinogen Ur Leukocyte Esterase Urine RBC Urine WBC Ur Squamous Epith Cells Urine Bacteria Ur Culture Indicated? Vol Urine Centrifuged Ur Random Sodium Nasal Screen MRSA (PCR) Vancomycin Peak Salicylates U Opiates 300ng/mL cut Ur Oxycodone Screen Urine Methadone Screen Acetaminophen Ur Barbiturates Screen U Tricyclic Antidepress Ur Phencyclidine Scrn Ur Amphetamines Screen U Methamphetamines Scrn Ur MDMA Scrn (Ecstasy) U Benzodiazepines Scrn Urine Cocaine Screen U Marijuana (THC) Screen Urine Specific [place] Normal Ethyl Alcohol Ur Creatinine Normal Chlamy pneumoniae PCR Adenovirus (PCR) B.parapertussis DNA PCR Coronavirus OC43 (PCR) Coronavirus HKU1 (PCR) Coronavirus 229E (PCR) SARS-CoV-2 (PCR) Coronavirus NL63 (PCR) Human Metapneumovir PCR Influenza Type A (PCR) Influenza Type B (PCR) M. pneumoniae (PCR) Parainfluenza 1 (PCR) Parainfluenza 2 (PCR) Parainfluenza 3 (PCR) Parainfluenza 4 (PCR) RSV (PCR) Entero/Rhino (PCR) 12/14/23 12/14/23 12/15/23 15:10 17:00 03:16 WBC 28.1 H RBC 3.48 L Hgb 9.4 L Hct 28.7 L MCV 82.3 MCH 27.0 MCHC 32.9 RDW 15.5 H Plt Count 499 H Neut % (Auto) Not Reportable Lymph % (Auto) Not Reportable [place] % (Auto) Not Reportable Eos % (Auto) Not Reportable Baso % (Auto) Not Reportable Lymph # (Auto) Not Reportable [place] # (Auto) Not Reportable Baso # (Auto) Not Reportable Total Counted 100 Seg Neutrophils % 78.0 H Band Neutrophils % 14.0 H Lymphocytes % (Manual) 3.0 L Monocytes % (Manual) 5.0 Metamyelocytes % Neutrophils # (Manual) 60723 H Platelet Estimate RBC Morphology See below Hypochromasia 1+ H PT INR ABG pH ABG pCO2 ABG pO2 ABG HCO3 ABG Total CO2 ABG O2 Saturation ABG Base Excess FiO2 Sodium 127 L 123 L Potassium 2.8 L D Chloride 82 L Carbon Dioxide 36 H BUN 10 Creatinine 0.46 L Estimated GFR > 60 BUN/Creatinine Ratio 21.7 Glucose 96 Lactate Calcium 8.0 L Magnesium 1.1 L Total Bilirubin AST ALT Alkaline Phosphatase Ammonia NT-Pro-B Natriuret Pep Total Protein Albumin Globulin Albumin/Globulin Ratio Lipase Procalcitonin Urine Color Urine Appearance Urine pH Ur Specific [place] Urine Protein Urine Glucose (UA) Urine Ketones Urine Occult Blood Urine Nitrate Urine Bilirubin Urine Urobilinogen Ur Leukocyte Esterase Urine RBC Urine WBC Ur Squamous Epith Cells Urine Bacteria Ur Culture Indicated? Vol Urine Centrifuged Ur Random Sodium Nasal Screen MRSA (PCR) Detected H Vancomycin Peak 17.5 L Salicylates U Opiates 300ng/mL cut Ur Oxycodone Screen Urine Methadone Screen Acetaminophen Ur Barbiturates Screen U Tricyclic Antidepress Ur Phencyclidine Scrn Ur Amphetamines Screen U Methamphetamines Scrn Ur MDMA Scrn (Ecstasy) U Benzodiazepines Scrn Urine Cocaine Screen U Marijuana (THC) Screen Urine Specific [place] Ethyl Alcohol Ur Creatinine Chlamy pneumoniae PCR Adenovirus (PCR) B.parapertussis DNA PCR Coronavirus OC43 (PCR) Coronavirus HKU1 (PCR) Coronavirus 229E (PCR) SARS-CoV-2 (PCR) Coronavirus NL63 (PCR) Human Metapneumovir PCR Influenza Type A (PCR) Influenza Type B (PCR) M. pneumoniae (PCR) Parainfluenza 1 (PCR) Parainfluenza 2 (PCR) Parainfluenza 3 (PCR) Parainfluenza 4 (PCR) RSV (PCR) Entero/Rhino (PCR) Exam Vital Signs (past 8 hours): - 12/15/23 00:45 12/15/23 00:50 12/15/23 00:55 Temperature 100.2 F H 100.2 F H 100.2 F H Pulse Rate 95 H 94 H 94 H Respiratory Rate 21 20 22 Blood Pressure Pulse Oximetry 97 98 98 Oxygen Delivery Method Oxygen Flow Rate Fraction of Inspired Oxygen 12/15/23 01:00 12/15/23 01:00 12/15/23 01:00 Temperature 100.2 F H 100.2 F H Pulse Rate 94 H 74 Respiratory Rate 23 23 Blood Pressure 124/83 100/97 H Pulse Oximetry 97 96 Oxygen Delivery Method Oxygen Flow Rate Fraction of Inspired Oxygen 65 12/15/23 01:05 12/15/23 01:10 12/15/23 01:15 Temperature 100.2 F H 100.2 F H 100.2 F H Pulse Rate 96 H 93 H 91 H Respiratory Rate 23 24 22 Blood Pressure Pulse Oximetry 96 96 97 Oxygen Delivery Method Oxygen Flow Rate Fraction of Inspired Oxygen 12/15/23 01:20 12/15/23 01:25 12/15/23 01:30 Temperature 100.2 F H 100.2 F H 100.2 F H Pulse Rate 88 90 92 H Respiratory Rate 23 19 20 Blood Pressure Pulse Oximetry 98 98 98 Oxygen Delivery Method Oxygen Flow Rate Fraction of Inspired Oxygen 12/15/23 01:35 12/15/23 01:40 12/15/23 01:45 Temperature 100.2 F H 100.2 F H 100.2 F H Pulse Rate 92 H 92 H 92 H Respiratory Rate 20 20 21 Blood Pressure Pulse Oximetry 98 98 98 Oxygen Delivery Method Oxygen Flow Rate Fraction of Inspired Oxygen 12/15/23 01:50 12/15/23 01:55 12/15/23 02:00 Temperature 100.2 F H 100.2 F H Pulse Rate 92 H 91 H Respiratory Rate 21 22 Blood Pressure 114/80 Pulse Oximetry 98 98 Oxygen Delivery Method Oxygen Flow Rate Fraction of Inspired Oxygen 12/15/23 02:00 12/15/23 02:00 12/15/23 02:00 Temperature 100.2 F H 100.2 F H Pulse Rate 92 H 92 H Respiratory Rate 19 19 Blood Pressure 114/80 Pulse Oximetry 98 98 Oxygen Delivery Method Mechanical Ventilation Oxygen Flow Rate Fraction of Inspired Oxygen 65 12/15/23 02:05 12/15/23 02:10 12/15/23 02:15 Temperature 100.2 F H 100.0 F H 100.0 F H Pulse Rate 100 H 96 H 92 H Respiratory Rate 26 H 22 18 Blood Pressure Pulse Oximetry 97 95 97 Oxygen Delivery Method Oxygen Flow Rate Fraction of Inspired Oxygen 12/15/23 02:20 12/15/23 02:25 12/15/23 02:30 Temperature 100.2 F H 100.2 F H 100.2 F H Pulse Rate 90 91 H 91 H Respiratory Rate 21 25 H 17 Blood Pressure Pulse Oximetry 97 98 98 Oxygen Delivery Method Oxygen Flow Rate Fraction of Inspired Oxygen 12/15/23 02:35 12/15/23 02:40 12/15/23 02:45 Temperature 100.2 F H 100.4 F H 100.4 F H Pulse Rate 86 87 87 Respiratory Rate 23 24 22 Blood Pressure Pulse Oximetry 98 98 98 Oxygen Delivery Method Oxygen Flow Rate Fraction of Inspired Oxygen 12/15/23 02:50 12/15/23 02:55 12/15/23 03:00 Temperature 100.4 F H 100.4 F H 100.4 F H Pulse Rate 88 90 91 H Respiratory Rate 22 22 22 Blood Pressure 109/75 Pulse Oximetry 98 98 Oxygen Delivery Method Oxygen Flow Rate 98 Fraction of Inspired Oxygen 65 12/15/23 03:00 12/15/23 03:00 12/15/23 03:05 Temperature 100.4 F H 100.4 F H Pulse Rate 91 H 91 H Respiratory Rate 23 21 Blood Pressure 109/75 Pulse Oximetry 98 98 Oxygen Delivery Method Oxygen Flow Rate Fraction of Inspired Oxygen 12/15/23 03:10 12/15/23 03:15 12/15/23 03:20 Temperature 100.4 F H 100.2 F H 100.2 F H Pulse Rate 91 H 91 H 91 H Respiratory Rate 22 21 20 Blood Pressure Pulse Oximetry 98 98 98 Oxygen Delivery Method Oxygen Flow Rate Fraction of Inspired Oxygen 12/15/23 03:25 12/15/23 03:30 12/15/23 03:35 Temperature 100.2 F H 100.0 F H 100.2 F H Pulse Rate 91 H 90 88 Respiratory Rate 18 23 22 Blood Pressure Pulse Oximetry 99 98 98 Oxygen Delivery Method Oxygen Flow Rate Fraction of Inspired Oxygen 12/15/23 03:40 12/15/23 03:45 12/15/23 03:50 Temperature 100.2 F H 100.0 F H 100.0 F H Pulse Rate 86 86 85 Respiratory Rate 23 21 22 Blood Pressure Pulse Oximetry 98 98 98 Oxygen Delivery Method Oxygen Flow Rate Fraction of Inspired Oxygen 12/15/23 03:55 12/15/23 04:00 12/15/23 04:00 Temperature 100.0 F H 100.0 F H Pulse Rate 87 85 Respiratory Rate 21 22 Blood Pressure 99/68 Pulse Oximetry 98 98 Oxygen Delivery Method Oxygen Flow Rate Fraction of Inspired Oxygen 12/15/23 04:00 12/15/23 04:05 12/15/23 04:10 Temperature 100 F H 100.0 F H 100.0 F H Pulse Rate 85 86 86 Respiratory Rate 22 22 21 Blood Pressure 99/68 Pulse Oximetry 98 98 98 Oxygen Delivery Method Oxygen Flow Rate Fraction of Inspired Oxygen 65 12/15/23 04:15 12/15/23 04:20 12/15/23 04:25 Temperature 99.7 F H 99.9 F H 100.0 F H Pulse Rate 85 86 86 Respiratory Rate 21 20 20 Blood Pressure Pulse Oximetry 98 98 98 Oxygen Delivery Method Oxygen Flow Rate Fraction of Inspired Oxygen 12/15/23 04:30 12/15/23 04:35 12/15/23 04:40 Temperature 99.9 F H 99.9 F H 99.9 F H Pulse Rate 86 85 85 Respiratory Rate 21 19 20 Blood Pressure Pulse Oximetry 99 99 98 Oxygen Delivery Method Oxygen Flow Rate Fraction of Inspired Oxygen 12/15/23 04:45 12/15/23 04:50 12/15/23 04:55 Temperature 99.7 F H 99.9 F H 100.0 F H Pulse Rate 86 86 85 Respiratory Rate 21 20 21 Blood Pressure Pulse Oximetry 99 99 99 Oxygen Delivery Method Oxygen Flow Rate Fraction of Inspired Oxygen 12/15/23 05:00 12/15/23 05:00 12/15/23 05:00 Temperature 100 F H 100.0 F H Pulse Rate 88 88 Respiratory Rate 21 21 Blood Pressure 108/72 108/72 Pulse Oximetry 99 99 Oxygen Delivery Method Oxygen Flow Rate Fraction of Inspired Oxygen 65 12/15/23 05:05 12/15/23 05:10 12/15/23 05:15 Temperature 100.0 F H 100.0 F H 100.0 F H Pulse Rate 85 86 88 Respiratory Rate 20 21 20 Blood Pressure Pulse Oximetry 99 99 99 Oxygen Delivery Method Oxygen Flow Rate Fraction of Inspired Oxygen 12/15/23 05:20 12/15/23 05:25 12/15/23 05:30 Temperature 100.0 F H 100.0 F H 100.2 F H Pulse Rate 85 85 84 Respiratory Rate 17 18 23 Blood Pressure Pulse Oximetry 98 98 99 Oxygen Delivery Method Oxygen Flow Rate Fraction of Inspired Oxygen 12/15/23 05:35 12/15/23 05:40 12/15/23 05:45 Temperature 100.2 F H 100.2 F H 100.2 F H Pulse Rate 85 85 85 Respiratory Rate 24 23 23 Blood Pressure Pulse Oximetry 99 99 99 Oxygen Delivery Method Oxygen Flow Rate Fraction of Inspired Oxygen 12/15/23 05:50 12/15/23 05:55 12/15/23 06:00 Temperature 100.2 F H 100.2 F H Pulse Rate 86 85 Respiratory Rate 18 20 Blood Pressure Pulse Oximetry 99 99 Oxygen Delivery Method Mechanical Ventilation Oxygen Flow Rate Fraction of Inspired Oxygen 12/15/23 06:00 12/15/23 06:00 12/15/23 06:00 Temperature 100.2 F H 100.2 F H Pulse Rate 85 85 Respiratory Rate 21 21 Blood Pressure 106/66 106/66 Pulse Oximetry 99 99 Oxygen Delivery Method Oxygen Flow Rate Fraction of Inspired Oxygen 65 12/15/23 06:05 12/15/23 06:10 12/15/23 06:15 Temperature 100.2 F H 100.2 F H 100.4 F H Pulse Rate 84 82 81 Respiratory Rate 20 18 17 Blood Pressure Pulse Oximetry 99 98 97 Oxygen Delivery Method Oxygen Flow Rate Fraction of Inspired Oxygen Fraction of Inspired Oxygen 65 Oxygen Delivery Method Mechanical Ventilation Oxygen Flow Rate 98 Quality TeleICU VTE Deep Vein Thrombosis/Pulmonary Embolism Present on Admission: No Assessment & Plan Assessment & Plan narrative: ASSESSMENT/PLAN: # Acute hypoxic respiratory failure: - Required to be intubated in the ER for airway protection. - C/w vent support per lung protective strategy (TV 6ml/kg by IBW, plat pressure < 30, PaO2 60-80 mm Hg, SaO2 > 92%) and c/w ABCDE bundle while intubated. - On Propofol gtt and Fentanyl gtt for sedation/pain control. Goal to keep RAAS 0 to -2. - C/w daily sedation vacation (SAT) and vent weaning as tolerated. - Evaluate tomorrow am with SAT and SBT if meets criteria. # Septic shock / Viral versus bacterial pneumonia: - Presumed source pneumonia. - Received 2 L IV fluid boluses in the ED and now started on vasopressors. - Continue norepinephrine gtt. and vasopressin gtt. with goal to maintain MAP >65. - Monitor markers of tissue perfusion including lactic acid, urine output, mental status. - Continue empiric IV antibiotics cefepime and IV vancomycin pending cultures. MRSA screen positive. - Ordered 2D echocardiogram. # Hyponatremia: - Likely from volume depletion/dehydration. - Follow-up on urine electrolyte studies, urine and serum osmolality. - Serum sodium dropped from 126 on admission to 122 overnight. Started on hypertonic saline at 20 cc/h for 4 hours. - Most recent serum sodium 123 this morning. - Continue BMP every 4 hours. - Avoid overcorrection of hyponatremia with goal to correct serum sodium no faster than 8 mmol/day. # Acute toxic encephalopathy: - CT head on admission negative for acute intracranial process. - Urine tox screen positive for methamphetamine. - Now intubated, sedated with propofol gtt., fentanyl gtt. and Precedex gtt. - Daily SAT/SBT and CHEM panel. # Severe malnourishment: - Start tube feeds per dietitian recommendations. ICU Bundle: # FEN: Currently NPO. Start tube feeding today. # Glucose: fairly controlled. C/w Accu checks Q6 hours and SSI. BG goal 140-180 # Prophylaxis: Heparin 5000 units subcu Q8 hourly for DVT prophylaxis, PPI for stress ulcer prophylaxis # Lines/tubes: PIV, [place], Central line, ET tube, OG tube # CODE STATUS: Full code # Disposition: Remains in ICU Above plan was discussed with rounding team including bedside RN, respiratory therapist during tele-ICU multidisciplinary rounds this morning. We will continue to follow. Please call us if any additional questions.
--- NOTE | 2023-12-15 08:49 | P.PN_ITS ---
Subjective Subjective Interval history: 63 yo sev malnourished male found unresponsive, admitted for pneumonia, septic shock, respiratory failure. Pt being co-managed with tele-ICU. He is currently on Levophed and Vasopressin with MAP > 65 on art line. Vent on 65% FIO2. Will initiate tube feeds. Low Mg and K replaced. Anesthesia to replace ET tube due to persistent cuff leak. Exam Vital Signs (past 8 hours): - 12/15/23 00:50 12/15/23 00:55 12/15/23 01:00 Temperature 100.2 F H 100.2 F H 100.2 F H Pulse Rate 94 H 94 H 94 H Respiratory Rate 20 22 23 Blood Pressure Pulse Oximetry 98 98 97 Oxygen Delivery Method Oxygen Flow Rate Fraction of Inspired Oxygen 12/15/23 01:00 12/15/23 01:00 12/15/23 01:05 Temperature 100.2 F H 100.2 F H Pulse Rate 74 96 H Respiratory Rate 23 23 Blood Pressure 124/83 100/97 H Pulse Oximetry 96 96 Oxygen Delivery Method Oxygen Flow Rate Fraction of Inspired Oxygen 65 12/15/23 01:10 12/15/23 01:15 12/15/23 01:20 Temperature 100.2 F H 100.2 F H 100.2 F H Pulse Rate 93 H 91 H 88 Respiratory Rate 24 22 23 Blood Pressure Pulse Oximetry 96 97 98 Oxygen Delivery Method Oxygen Flow Rate Fraction of Inspired Oxygen 12/15/23 01:25 12/15/23 01:30 12/15/23 01:35 Temperature 100.2 F H 100.2 F H 100.2 F H Pulse Rate 90 92 H 92 H Respiratory Rate 19 20 20 Blood Pressure Pulse Oximetry 98 98 98 Oxygen Delivery Method Oxygen Flow Rate Fraction of Inspired Oxygen 12/15/23 01:40 12/15/23 01:45 12/15/23 01:50 Temperature 100.2 F H 100.2 F H 100.2 F H Pulse Rate 92 H 92 H 92 H Respiratory Rate 20 21 21 Blood Pressure Pulse Oximetry 98 98 98 Oxygen Delivery Method Oxygen Flow Rate Fraction of Inspired Oxygen 12/15/23 01:55 12/15/23 02:00 12/15/23 02:00 Temperature 100.2 F H 100.2 F H Pulse Rate 91 H 92 H Respiratory Rate 22 19 Blood Pressure 114/80 Pulse Oximetry 98 98 Oxygen Delivery Method Oxygen Flow Rate Fraction of Inspired Oxygen 12/15/23 02:00 12/15/23 02:00 12/15/23 02:05 Temperature 100.2 F H 100.2 F H Pulse Rate 92 H 100 H Respiratory Rate 19 26 H Blood Pressure 114/80 Pulse Oximetry 98 97 Oxygen Delivery Method Mechanical Ventilation Oxygen Flow Rate Fraction of Inspired Oxygen 65 12/15/23 02:10 12/15/23 02:15 12/15/23 02:20 Temperature 100.0 F H 100.0 F H 100.2 F H Pulse Rate 96 H 92 H 90 Respiratory Rate 22 18 21 Blood Pressure Pulse Oximetry 95 97 97 Oxygen Delivery Method Oxygen Flow Rate Fraction of Inspired Oxygen 12/15/23 02:25 12/15/23 02:30 12/15/23 02:35 Temperature 100.2 F H 100.2 F H 100.2 F H Pulse Rate 91 H 91 H 86 Respiratory Rate 25 H 17 23 Blood Pressure Pulse Oximetry 98 98 98 Oxygen Delivery Method Oxygen Flow Rate Fraction of Inspired Oxygen 12/15/23 02:40 12/15/23 02:45 12/15/23 02:50 Temperature 100.4 F H 100.4 F H 100.4 F H Pulse Rate 87 87 88 Respiratory Rate 24 22 22 Blood Pressure Pulse Oximetry 98 98 98 Oxygen Delivery Method Oxygen Flow Rate Fraction of Inspired Oxygen 12/15/23 02:55 12/15/23 03:00 12/15/23 03:00 Temperature 100.4 F H 100.4 F H 100.4 F H Pulse Rate 90 91 H 91 H Respiratory Rate 22 22 23 Blood Pressure 109/75 Pulse Oximetry 98 98 Oxygen Delivery Method Oxygen Flow Rate 98 Fraction of Inspired Oxygen 65 12/15/23 03:00 12/15/23 03:05 12/15/23 03:10 Temperature 100.4 F H 100.4 F H Pulse Rate 91 H 91 H Respiratory Rate 21 22 Blood Pressure 109/75 Pulse Oximetry 98 98 Oxygen Delivery Method Oxygen Flow Rate Fraction of Inspired Oxygen 12/15/23 03:15 12/15/23 03:20 12/15/23 03:25 Temperature 100.2 F H 100.2 F H 100.2 F H Pulse Rate 91 H 91 H 91 H Respiratory Rate 21 20 18 Blood Pressure Pulse Oximetry 98 98 99 Oxygen Delivery Method Oxygen Flow Rate Fraction of Inspired Oxygen 12/15/23 03:30 12/15/23 03:35 12/15/23 03:40 Temperature 100.0 F H 100.2 F H 100.2 F H Pulse Rate 90 88 86 Respiratory Rate 23 22 23 Blood Pressure Pulse Oximetry 98 98 98 Oxygen Delivery Method Oxygen Flow Rate Fraction of Inspired Oxygen 12/15/23 03:45 12/15/23 03:50 12/15/23 03:55 Temperature 100.0 F H 100.0 F H 100.0 F H Pulse Rate 86 85 87 Respiratory Rate 21 22 21 Blood Pressure Pulse Oximetry 98 98 98 Oxygen Delivery Method Oxygen Flow Rate Fraction of Inspired Oxygen 12/15/23 04:00 12/15/23 04:00 12/15/23 04:00 Temperature 100.0 F H 100 F H Pulse Rate 85 85 Respiratory Rate 22 22 Blood Pressure 99/68 99/68 Pulse Oximetry 98 98 Oxygen Delivery Method Oxygen Flow Rate Fraction of Inspired Oxygen 65 12/15/23 04:05 12/15/23 04:10 12/15/23 04:15 Temperature 100.0 F H 100.0 F H 99.7 F H Pulse Rate 86 86 85 Respiratory Rate 22 21 21 Blood Pressure Pulse Oximetry 98 98 98 Oxygen Delivery Method Oxygen Flow Rate Fraction of Inspired Oxygen 12/15/23 04:20 12/15/23 04:25 12/15/23 04:30 Temperature 99.9 F H 100.0 F H 99.9 F H Pulse Rate 86 86 86 Respiratory Rate 20 20 21 Blood Pressure Pulse Oximetry 98 98 99 Oxygen Delivery Method Oxygen Flow Rate Fraction of Inspired Oxygen 12/15/23 04:35 12/15/23 04:40 12/15/23 04:45 Temperature 99.9 F H 99.9 F H 99.7 F H Pulse Rate 85 85 86 Respiratory Rate 19 20 21 Blood Pressure Pulse Oximetry 99 98 99 Oxygen Delivery Method Oxygen Flow Rate Fraction of Inspired Oxygen 12/15/23 04:50 12/15/23 04:55 12/15/23 05:00 Temperature 99.9 F H 100.0 F H 100 F H Pulse Rate 86 85 88 Respiratory Rate 20 21 21 Blood Pressure 108/72 Pulse Oximetry 99 99 99 Oxygen Delivery Method Oxygen Flow Rate Fraction of Inspired Oxygen 65 12/15/23 05:00 12/15/23 05:00 12/15/23 05:05 Temperature 100.0 F H 100.0 F H Pulse Rate 88 85 Respiratory Rate 21 20 Blood Pressure 108/72 Pulse Oximetry 99 99 Oxygen Delivery Method Oxygen Flow Rate Fraction of Inspired Oxygen 12/15/23 05:10 12/15/23 05:15 12/15/23 05:20 Temperature 100.0 F H 100.0 F H 100.0 F H Pulse Rate 86 88 85 Respiratory Rate 21 20 17 Blood Pressure Pulse Oximetry 99 99 98 Oxygen Delivery Method Oxygen Flow Rate Fraction of Inspired Oxygen 12/15/23 05:25 12/15/23 05:30 12/15/23 05:35 Temperature 100.0 F H 100.2 F H 100.2 F H Pulse Rate 85 84 85 Respiratory Rate 18 23 24 Blood Pressure Pulse Oximetry 98 99 99 Oxygen Delivery Method Oxygen Flow Rate Fraction of Inspired Oxygen 12/15/23 05:40 12/15/23 05:45 12/15/23 05:50 Temperature 100.2 F H 100.2 F H 100.2 F H Pulse Rate 85 85 86 Respiratory Rate 23 23 18 Blood Pressure Pulse Oximetry 99 99 99 Oxygen Delivery Method Oxygen Flow Rate Fraction of Inspired Oxygen 12/15/23 05:55 12/15/23 06:00 12/15/23 06:00 Temperature 100.2 F H 100.2 F H Pulse Rate 85 85 Respiratory Rate 20 21 Blood Pressure 106/66 Pulse Oximetry 99 99 Oxygen Delivery Method Mechanical Ventilation Oxygen Flow Rate Fraction of Inspired Oxygen 65 12/15/23 06:00 12/15/23 06:00 12/15/23 06:05 Temperature 100.2 F H 100.2 F H Pulse Rate 85 84 Respiratory Rate 21 20 Blood Pressure 106/66 Pulse Oximetry 99 99 Oxygen Delivery Method Oxygen Flow Rate Fraction of Inspired Oxygen 12/15/23 06:10 12/15/23 06:15 12/15/23 06:20 Temperature 100.2 F H 100.4 F H 100.2 F H Pulse Rate 82 81 81 Respiratory Rate 18 17 17 Blood Pressure Pulse Oximetry 98 97 98 Oxygen Delivery Method Oxygen Flow Rate Fraction of Inspired Oxygen 12/15/23 06:25 12/15/23 06:30 12/15/23 06:35 Temperature 100.4 F H 100.4 F H 100.4 F H Pulse Rate 82 83 83 Respiratory Rate 18 17 18 Blood Pressure Pulse Oximetry 98 99 99 Oxygen Delivery Method Oxygen Flow Rate Fraction of Inspired Oxygen 12/15/23 06:40 12/15/23 06:45 12/15/23 06:50 Temperature 100.4 F H 100.4 F H 100.4 F H Pulse Rate 83 82 82 Respiratory Rate 17 17 20 Blood Pressure Pulse Oximetry 99 99 99 Oxygen Delivery Method Oxygen Flow Rate Fraction of Inspired Oxygen 12/15/23 06:55 12/15/23 07:00 12/15/23 07:00 Temperature 100.2 F H 100.4 F H Pulse Rate 83 82 Respiratory Rate 18 17 Blood Pressure 82/50 L Pulse Oximetry 99 96 Oxygen Delivery Method Oxygen Flow Rate Fraction of Inspired Oxygen 12/15/23 07:05 12/15/23 07:10 12/15/23 07:11 Temperature 100.2 F H 100.2 F H 100.2 F H Pulse Rate 81 81 81 Respiratory Rate 17 16 16 Blood Pressure Pulse Oximetry 98 98 98 Oxygen Delivery Method Oxygen Flow Rate Fraction of Inspired Oxygen 12/15/23 07:11 12/15/23 07:15 12/15/23 07:20 Temperature 100.2 F H 100.2 F H Pulse Rate 81 81 Respiratory Rate 17 22 Blood Pressure 81/52 L Pulse Oximetry 97 98 Oxygen Delivery Method Oxygen Flow Rate Fraction of Inspired Oxygen 12/15/23 07:25 12/15/23 07:30 12/15/23 07:35 Temperature 100.2 F H 100.4 F H 100.2 F H Pulse Rate 81 80 80 Respiratory Rate 17 21 17 Blood Pressure Pulse Oximetry 99 99 99 Oxygen Delivery Method Oxygen Flow Rate Fraction of Inspired Oxygen 12/15/23 07:40 12/15/23 07:45 12/15/23 07:50 Temperature 100.2 F H 100.0 F H 100.0 F H Pulse Rate 80 80 80 Respiratory Rate 19 18 20 Blood Pressure Pulse Oximetry 99 98 98 Oxygen Delivery Method Oxygen Flow Rate Fraction of Inspired Oxygen 12/15/23 07:55 12/15/23 08:00 12/15/23 08:00 Temperature 100.2 F H 99.7 F H Pulse Rate 80 80 Respiratory Rate 18 19 Blood Pressure 87/59 L Pulse Oximetry 98 98 Oxygen Delivery Method Oxygen Flow Rate Fraction of Inspired Oxygen 12/15/23 08:05 12/15/23 08:10 12/15/23 08:15 Temperature 100.0 F H 100.0 F H 100.0 F H Pulse Rate 80 80 80 Respiratory Rate 20 17 18 Blood Pressure Pulse Oximetry 98 98 98 Oxygen Delivery Method Oxygen Flow Rate Fraction of Inspired Oxygen 12/15/23 08:20 12/15/23 08:25 12/15/23 08:30 Temperature 100.0 F H 99.9 F H 99.9 F H Pulse Rate 80 78 78 Respiratory Rate 16 16 17 Blood Pressure Pulse Oximetry 96 97 98 Oxygen Delivery Method Oxygen Flow Rate Fraction of Inspired Oxygen 12/15/23 08:35 12/15/23 08:40 12/15/23 08:45 Temperature 99.7 F H 99.7 F H 99.7 F H Pulse Rate 82 86 80 Respiratory Rate 16 17 16 Blood Pressure Pulse Oximetry 91 100 Oxygen Delivery Method Oxygen Flow Rate Fraction of Inspired Oxygen Fraction of Inspired Oxygen 65 Oxygen Delivery Method Mechanical Ventilation Oxygen Flow Rate 98 Narrative Exam Narrative: Gen: unresponsive cachectic male on vent Lungs: no crackles or wheeze CV: regular rhythm Abd: soft Ext: no edema Objective Labs 12/15/23 03:16 12/15/23 03:16 Labs: Laboratory Results - last 24 hr 12/14/23 12/14/23 12/14/23 10:03 10:21 10:26 WBC 31.0 H* RBC 4.20 L Hgb 11.0 L Hct 35.1 L MCV 83.5 MCH 26.2 MCHC 31.4 RDW 15.0 H Plt Count 673 H Neut % (Auto) Not Reportable Lymph % (Auto) Not Reportable [place] % (Auto) Not Reportable Eos % (Auto) Not Reportable Baso % (Auto) Not Reportable Lymph # (Auto) Not Reportable [place] # (Auto) Not Reportable Baso # (Auto) Not Reportable Total Counted 100 Seg Neutrophils % 84.0 H Band Neutrophils % 1.0 L Lymphocytes % (Manual) 5.0 L Monocytes % (Manual) 9.0 Metamyelocytes % 1.0 H Neutrophils # (Manual) 30412 H Platelet Estimate Increased on smear RBC Morphology Normal morphology Hypochromasia PT 16.8 H INR 1.5 H ABG pH 7.23 L* ABG pCO2 92.0 H* ABG pO2 37 L* ABG HCO3 39 H ABG Total CO2 42 H ABG O2 Saturation 57 L* ABG Base Excess 11.0 H FiO2 100 Sodium 125 L Potassium 4.2 Chloride 80 L Carbon Dioxide 38 H BUN 21 H Creatinine 0.73 Estimated GFR > 60 BUN/Creatinine Ratio 28.8 H Glucose 152 H Lactate 4.0 H Calcium 9.6 Magnesium 2.0 Total Bilirubin 0.8 AST 28 ALT 17 Alkaline Phosphatase 133 H Ammonia NT-Pro-B Natriuret Pep 8410 H Total Protein 8.4 H Albumin 3.4 L Globulin 5.0 H Albumin/Globulin Ratio 0.7 L Lipase 37 Procalcitonin 2.52 H Urine Color Urine Appearance Urine pH Ur Specific [place] Urine Protein Urine Glucose (UA) Urine Ketones Urine Occult Blood Urine Nitrate Urine Bilirubin Urine Urobilinogen Ur Leukocyte Esterase Urine RBC Urine WBC Ur Squamous Epith Cells Urine Bacteria Ur Culture Indicated? Vol Urine Centrifuged Ur Random Sodium Nasal Screen MRSA (PCR) Vancomycin Peak Salicylates < 1.0 U Opiates 300ng/mL cut Ur Oxycodone Screen Urine Methadone Screen Acetaminophen < 10 Ur Barbiturates Screen U Tricyclic Antidepress Ur Phencyclidine Scrn Ur Amphetamines Screen U Methamphetamines Scrn Ur MDMA Scrn (Ecstasy) U Benzodiazepines Scrn Urine Cocaine Screen U Marijuana (THC) Screen Urine Specific [place] Ethyl Alcohol < 10 Ur Creatinine Chlamy pneumoniae PCR Not detected Adenovirus (PCR) Detected H B.parapertussis DNA PCR Not detected Coronavirus OC43 (PCR) Not detected Coronavirus HKU1 (PCR) Not detected Coronavirus 229E (PCR) Not detected SARS-CoV-2 (PCR) Not detected Coronavirus NL63 (PCR) Not detected Human Metapneumovir PCR Not detected Influenza Type A (PCR) Not detected Influenza Type B (PCR) Not detected M. pneumoniae (PCR) Not detected Parainfluenza 1 (PCR) Not detected Parainfluenza 2 (PCR) Not detected Parainfluenza 3 (PCR) Not detected Parainfluenza 4 (PCR) Not detected RSV (PCR) Not detected Entero/Rhino (PCR) Detected H 12/14/23 12/14/23 12/14/23 10:30 10:57 11:53 WBC RBC Hgb Hct MCV MCH MCHC RDW Plt Count Neut % (Auto) Lymph % (Auto) [place] % (Auto) Eos % (Auto) Baso % (Auto) Lymph # (Auto) [place] # (Auto) Baso # (Auto) Total Counted Seg Neutrophils % Band Neutrophils % Lymphocytes % (Manual) Monocytes % (Manual) Metamyelocytes % Neutrophils # (Manual) Platelet Estimate RBC Morphology Hypochromasia PT INR ABG pH ABG pCO2 ABG pO2 ABG HCO3 ABG Total CO2 ABG O2 Saturation ABG Base Excess FiO2 Sodium Potassium Chloride Carbon Dioxide BUN Creatinine Estimated GFR BUN/Creatinine Ratio Glucose Lactate Calcium Magnesium Total Bilirubin AST ALT Alkaline Phosphatase Ammonia 18 NT-Pro-B Natriuret Pep Total Protein Albumin Globulin Albumin/Globulin Ratio Lipase Procalcitonin Urine Color Yellow Urine Appearance Clear Urine pH 6.5 Ur Specific [place] 1.020 Urine Protein 1+ H Urine Glucose (UA) Negative Urine Ketones Negative Urine Occult Blood 1+ H Urine Nitrate Negative Urine Bilirubin Negative Urine Urobilinogen 0.2 Ur Leukocyte Esterase Negative Urine RBC 0-1/hpf Urine WBC None seen Ur Squamous Epith Cells None seen Urine Bacteria None seen Ur Culture Indicated? Cult not indicated Vol Urine Centrifuged Low vol <1ml unspun A Ur Random Sodium 66 Nasal Screen MRSA (PCR) Vancomycin Peak Salicylates U Opiates 300ng/mL cut Negative Ur Oxycodone Screen Negative Urine Methadone Screen Negative Acetaminophen Ur Barbiturates Screen Negative U Tricyclic Antidepress Negative Ur Phencyclidine Scrn Negative Ur Amphetamines Screen Negative U Methamphetamines Scrn Positive H Ur MDMA Scrn (Ecstasy) Negative U Benzodiazepines Scrn Negative Urine Cocaine Screen Negative U Marijuana (THC) Screen Negative Urine Specific [place] Ethyl Alcohol Ur Creatinine Chlamy pneumoniae PCR Adenovirus (PCR) B.parapertussis DNA PCR Coronavirus OC43 (PCR) Coronavirus HKU1 (PCR) Coronavirus 229E (PCR) SARS-CoV-2 (PCR) Cancelled Coronavirus NL63 (PCR) Human Metapneumovir PCR Influenza Type A (PCR) Influenza Type B (PCR) M. pneumoniae (PCR) Parainfluenza 1 (PCR) Parainfluenza 2 (PCR) Parainfluenza 3 (PCR) Parainfluenza 4 (PCR) RSV (PCR) Entero/Rhino (PCR) 12/14/23 12/14/23 12/14/23 11:53 12:02 14:35 WBC RBC Hgb Hct MCV MCH MCHC RDW Plt Count Neut % (Auto) Lymph % (Auto) [place] % (Auto) Eos % (Auto) Baso % (Auto) Lymph # (Auto) [place] # (Auto) Baso # (Auto) Total Counted Seg Neutrophils % Band Neutrophils % Lymphocytes % (Manual) Monocytes % (Manual) Metamyelocytes % Neutrophils # (Manual) Platelet Estimate RBC Morphology Hypochromasia PT INR ABG pH 7.34 L ABG pCO2 68.9 H* ABG pO2 91 ABG HCO3 38 H ABG Total CO2 40 H ABG O2 Saturation 96 ABG Base Excess 12.0 H FiO2 70 Sodium Potassium Chloride Carbon Dioxide BUN Creatinine Estimated GFR BUN/Creatinine Ratio Glucose Lactate 0.9 Calcium Magnesium Total Bilirubin AST ALT Alkaline Phosphatase Ammonia NT-Pro-B Natriuret Pep Total Protein Albumin Globulin Albumin/Globulin Ratio Lipase Procalcitonin Urine Color Urine Appearance Urine pH Normal Ur Specific [place] Urine Protein Urine Glucose (UA) Urine Ketones Urine Occult Blood Urine Nitrate Urine Bilirubin Urine Urobilinogen Ur Leukocyte Esterase Urine RBC Urine WBC Ur Squamous Epith Cells Urine Bacteria Ur Culture Indicated? Vol Urine Centrifuged Ur Random Sodium Nasal Screen MRSA (PCR) Vancomycin Peak Salicylates U Opiates 300ng/mL cut Ur Oxycodone Screen Urine Methadone Screen Acetaminophen Ur Barbiturates Screen U Tricyclic Antidepress Ur Phencyclidine Scrn Ur Amphetamines Screen U Methamphetamines Scrn Ur MDMA Scrn (Ecstasy) U Benzodiazepines Scrn Urine Cocaine Screen U Marijuana (THC) Screen Urine Specific [place] Normal Ethyl Alcohol Ur Creatinine Normal Chlamy pneumoniae PCR Adenovirus (PCR) B.parapertussis DNA PCR Coronavirus OC43 (PCR) Coronavirus HKU1 (PCR) Coronavirus 229E (PCR) SARS-CoV-2 (PCR) Coronavirus NL63 (PCR) Human Metapneumovir PCR Influenza Type A (PCR) Influenza Type B (PCR) M. pneumoniae (PCR) Parainfluenza 1 (PCR) Parainfluenza 2 (PCR) Parainfluenza 3 (PCR) Parainfluenza 4 (PCR) RSV (PCR) Entero/Rhino (PCR) 12/14/23 12/14/23 12/15/23 15:10 17:00 03:16 WBC 28.1 H RBC 3.48 L Hgb 9.4 L Hct 28.7 L MCV 82.3 MCH 27.0 MCHC 32.9 RDW 15.5 H Plt Count 499 H Neut % (Auto) Not Reportable Lymph % (Auto) Not Reportable [place] % (Auto) Not Reportable Eos % (Auto) Not Reportable Baso % (Auto) Not Reportable Lymph # (Auto) Not Reportable [place] # (Auto) Not Reportable Baso # (Auto) Not Reportable Total Counted 100 Seg Neutrophils % 78.0 H Band Neutrophils % 14.0 H Lymphocytes % (Manual) 3.0 L Monocytes % (Manual) 5.0 Metamyelocytes % Neutrophils # (Manual) 22266 H Platelet Estimate RBC Morphology See below Hypochromasia 1+ H PT INR ABG pH ABG pCO2 ABG pO2 ABG HCO3 ABG Total CO2 ABG O2 Saturation ABG Base Excess FiO2 Sodium 127 L 123 L Potassium 2.8 L D Chloride 82 L Carbon Dioxide 36 H BUN 10 Creatinine 0.46 L Estimated GFR > 60 BUN/Creatinine Ratio 21.7 Glucose 96 Lactate Calcium 8.0 L Magnesium 1.1 L Total Bilirubin AST ALT Alkaline Phosphatase Ammonia NT-Pro-B Natriuret Pep Total Protein Albumin Globulin Albumin/Globulin Ratio Lipase Procalcitonin Urine Color Urine Appearance Urine pH Ur Specific [place] Urine Protein Urine Glucose (UA) Urine Ketones Urine Occult Blood Urine Nitrate Urine Bilirubin Urine Urobilinogen Ur Leukocyte Esterase Urine RBC Urine WBC Ur Squamous Epith Cells Urine Bacteria Ur Culture Indicated? Vol Urine Centrifuged Ur Random Sodium Nasal Screen MRSA (PCR) Detected H Vancomycin Peak 17.5 L Salicylates U Opiates 300ng/mL cut Ur Oxycodone Screen Urine Methadone Screen Acetaminophen Ur Barbiturates Screen U Tricyclic Antidepress Ur Phencyclidine Scrn Ur Amphetamines Screen U Methamphetamines Scrn Ur MDMA Scrn (Ecstasy) U Benzodiazepines Scrn Urine Cocaine Screen U Marijuana (THC) Screen Urine Specific [place] Ethyl Alcohol Ur Creatinine Chlamy pneumoniae PCR Adenovirus (PCR) B.parapertussis DNA PCR Coronavirus OC43 (PCR) Coronavirus HKU1 (PCR) Coronavirus 229E (PCR) SARS-CoV-2 (PCR) Coronavirus NL63 (PCR) Human Metapneumovir PCR Influenza Type A (PCR) Influenza Type B (PCR) M. pneumoniae (PCR) Parainfluenza 1 (PCR) Parainfluenza 2 (PCR) Parainfluenza 3 (PCR) Parainfluenza 4 (PCR) RSV (PCR) Entero/Rhino (PCR) [facility] Medical History Tracheostomy in place Sepsis Muscle pain Foot pain Ankle pain Chronic back pain Acid reflux Tobacco use disorder, moderate, in early remission Hypertension Ankylosing spondylitis Alcohol abuse Ankylosing spondylitis (1985) GERD (gastroesophageal reflux disease) Hypertension Fracture cervical vertebra-closed Surgical History Status post incision and drainage History of open reduction and internal fixation (ORIF) procedure (2005) Status post colonoscopy (2012) History of tonsillectomy Family History Father No problems noted. Mother Cancer Other Alcoholism Colorectal cancer Social History household members: family Smoking Status: Current every day smoker Assessment & Plan Assessment & Plan narrative: 1. Acute hypoxemic respiratory failure -secondary to aspiration pnx, sepsis -intubated on admit -past hx tracheostomy -cont Vanc/cefepime -replaced ET tube 12/15 due to cuff leak 2. Septic shock -cont pressor support, maintain MAP > 65 -PCR + adenovirus, + entero/rhino, +nasal MRSA -blood cultures neg so far -Vanc/cefepime -stress dose steroids 3. Acute metabolic encephalopathy -secondary to opiod o.d., sepsis, hyponatremia -tox screen + meth -on propofol and fentanyl drip - will switch to Precedex and taper off propofol if possible -RASS goal -1 to 0 4. Acute hyponatremia -likely SIADH -urine Na 66, urine osm pending 5. Severe protein calorie malnutrition -initiate tube feeds -acetylene torch burner consult -IV famotidine bid for GI prophylaxis 6. Hypomagnesemia, hypokalemia - MgSO4, K-riders -recheck daily 7. Endo - Goal BS < 180 DVT prevention: on heparin SQ bid Code status: full Pr is critically ill with poor prognosis for survival in hospital. Total ICU management > 45 min. Care coordinated with tele-ICU service. Quality VTE Deep Vein Thrombosis/Pulmonary Embolism Present on Admission: No
[2023-12-15] MEDS: LACTATED RINGERS 1,000 ML 100 ML IV (10:01)
[2023-12-15] MEDS: FAMOTIDINE 20 MG/2 ML VIAL IV ×2 (10:01→20:10)
[2023-12-15] MEDS: HEPARIN 5,000 UNIT/ML VIAL 5000 UNIT SUBCUT ×2 (10:02→20:10)
[2023-12-15 10:33] LABS: Blood Urea Nitrogen 9 mg/dL (9-20); Calcium 8.1 mg/dL (8.4-10.2); Carbon Dioxide 36 mmol/L (22-32); Chloride 82 mmol/L (98-107); Estimated Glomerular Filt Rate > 60 mL/min (>60); Glucose 97 mg/dL (80-110); HEMOLYSIS < 15 (0-50); Potassium 3.8 mmol/L (3.4-5.1); Sodium 121 mmol/L (137-145)
--- NOTE | 2023-12-15 10:34 | PM.PROC.1 ---
Procedures Date/Time Date of procedure: 12/15/23 Time of procedure: 08:30 General Procedure description: 63yo old male mechanically ventilated for acute respiratory failure. Intubation Time out performed: Yes Sedative: other (Propofol) Mg given: 100 Paralytic: other (None) Laryngoscope: other (Glidescope) Assist device used: Bougie ET tube size: 8 ET tube uncuffed: No Tube secured depth (cm): 22 Tube secured location: lips Tube placement confirmation: equal breath sounds bilaterally, no breath sounds over epigastrium and confirmation by capnometry Patient tolerated procedure: well Intubation complications: none Additional comments: ET tube leaking air possibly due to balloon failure/damage. Glidescope used to assess the position of the balloon. No balloon visualized. Bougie inserted, balloon deflated, ET tube removed, new ET tube inserted over the bougie, cuff inflated, breath sounds equal and bilateral, CO2 detector positive, and capnography wave observed. Mechanical ventilation restarted. CXray for tube confirmation, ET tube tip 5.5CM above the roxi
[2023-12-15] MEDS: SODIUM CHLORIDE 3% 20 ML IV ×2 (11:10→16:33)
[2023-12-15] MEDS: propofoL 1,000 MG/100 ML VIAL 5.606 MG IV (11:14)
[2023-12-15] MEDS: VASOPRESSIN 40 UNIT in SODIUM CHLORIDE 0.9% 100 ML 4.5 UNIT IV (12:09)
[2023-12-15 13:29] LABS: Blood Urea Nitrogen 9 mg/dL (9-20); Calcium 8.2 mg/dL (8.4-10.2); Carbon Dioxide 36 mmol/L (22-32); Chloride 82 mmol/L (98-107); Estimated Glomerular Filt Rate > 60 mL/min (>60); Glucose 104 mg/dL (80-110); HEMOLYSIS < 15 (0-50); Potassium 3.3 mmol/L (3.4-5.1); Sodium 121 mmol/L (137-145)
[2023-12-15] MEDS: dexmedeTOMIDine in 0.9 % NaCL 400 MCG/100 ML PLAST..BAG 7.008 MCG IV (15:05)
[2023-12-15 16:01] LABS: BUN Creatinine Ratio 19.2 (6-22); Blood Urea Nitrogen 10 mg/dL (9-20); Carbon Dioxide 35 mmol/L (22-32); Chloride 81 mmol/L (98-107); Estimated Glomerular Filt Rate > 60 mL/min (>60); Glucose 100 mg/dL (80-110); HEMOLYSIS < 15 (0-50); Potassium 3.2 mmol/L (3.4-5.1); Sodium 121 mmol/L (137-145)
[2023-12-15 17:28] LABS: BUN Creatinine Ratio 17.5 (6-22); Blood Urea Nitrogen 11 mg/dL (9-20); Carbon Dioxide 35 mmol/L (22-32); Chloride 82 mmol/L (98-107); Estimated Glomerular Filt Rate > 60 mL/min (>60); Glucose 110 mg/dL (80-110); HEMOLYSIS < 15 (0-50); Potassium 3.3 mmol/L (3.4-5.1); Sodium 122 mmol/L (137-145)
[2023-12-15] MEDS: ACETAMINOPHEN 325 MG TABLET 650 MG PO (17:46)
[2023-12-15 19:28] LABS: Blood Urea Nitrogen 13 mg/dL (9-20); Calcium 7.9 mg/dL (8.4-10.2); Carbon Dioxide 35 mmol/L (22-32); Chloride 83 mmol/L (98-107); Estimated Glomerular Filt Rate > 60 mL/min (>60); Glucose 125 mg/dL (80-110); HEMOLYSIS < 15 (0-50); Potassium 3.7 mmol/L (3.4-5.1); Sodium 121 mmol/L (137-145)
--- NOTE | 2023-12-15 19:50 | P.ICUMDRN_ITS ---
- Date Patient Seen: 12/15/23 :: This patient was seen via real time interactive two-way audiovisual telecommunic ation. Note: Patient remains intubated and sedated. On hypertonic saline 20cc/hr. Repeat Na 121. Will increase to 30 cc/hr and continue checking every 2 hours. D/w bedside RN.
[2023-12-15 20:09] LABS: Magnesium 1.6 mg/dL (1.6-2.3)
[2023-12-15] MEDS: SODIUM CHLORIDE 0.9% FLUSH 10 ML IV (20:11)
[2023-12-15] MEDS: SODIUM CHLORIDE 3 % 100 ML 30 ML IV (20:40)
[2023-12-15 21:53] LABS: Blood Urea Nitrogen 14 mg/dL (9-20); Calcium 7.7 mg/dL (8.4-10.2); Carbon Dioxide 33 mmol/L (22-32); Chloride 83 mmol/L (98-107); Estimated Glomerular Filt Rate > 60 mL/min (>60); Glucose 149 mg/dL (80-110); HEMOLYSIS < 15 (0-50); Potassium 4.2 mmol/L (3.4-5.1); Sodium 120 mmol/L (137-145)
[2023-12-15 23:36] LABS: BUN Creatinine Ratio 32.7 (6-22); Blood Urea Nitrogen 16 mg/dL (9-20); Calcium 7.7 mg/dL (8.4-10.2); Carbon Dioxide 33 mmol/L (22-32); Chloride 84 mmol/L (98-107); Estimated Glomerular Filt Rate > 60 mL/min (>60); Glucose 147 mg/dL (80-110); HEMOLYSIS < 15 (0-50); Potassium 3.9 mmol/L (3.4-5.1); Sodium 120 mmol/L (137-145)
[2023-12-16] VITALS (287 sets, daily range): BP systolic 78–118; BP diastolic 52–76; PULSE 66–96; RESP 2–33; TEMP 36.6–39; O2SAT 91–100
[2023-12-16] MEDS: propofoL 1,000 MG/100 ML VIAL 4.205 MG IV (00:41)
[2023-12-16] MEDS: VANCOMYCIN 1,000 MG/200 ML PIGGYBACK 200 MG IV (01:15)
[2023-12-16] MEDS: dexmedeTOMIDine in 0.9 % NaCL 400 MCG/100 ML PLAST..BAG 7.008 MCG IV (01:55)
[2023-12-16 02:06] LABS: Vancomycin Trough 9.2 ug/mL (10-20)
[2023-12-16 03:55] LABS: Add Manual Diff / Slide Review NO; Basophils Absolute Auto 0 /uL (0-100); Basophils Percent Auto 0.1 % (0-2); Eosinophils Absolute Auto 0 /uL (0-450); Hematocrit 24.5 % (41-53); Hemoglobin 8.2 g/dL (13.5-17.5); Lymphocytes Absolute Auto 800 /uL (1100-4500); Lymphocytes Percent Auto 5.5 % (25-40); Mean Corpuscular HGB Conc 33.3 % (30-36); Mean Corpuscular Hemoglobin 26.9 PG (26-34); Mean Corpuscular Volume 80.6 fL (80-100); Monocytes Absolute Auto 900 /uL (0-900); Monocytes Percent Auto 5.9 % (3-14); Neutrophils Absolute Auto 13300 /uL (1500-7000); Neutrophils Percent Auto 88.5 % (50-75); Platelet Count 327 X10^3/uL (150-400); Red Blood Cell Count 3.04 X10^6/uL (4.5-5.9); Red Cell Distribution Width 15.3 % (11.6-14.8)
[2023-12-16 04:00] LABS: BUN Creatinine Ratio 40.9 (6-22); Blood Urea Nitrogen 18 mg/dL (9-20); Calcium 7.6 mg/dL (8.4-10.2); Carbon Dioxide 31 mmol/L (22-32); Chloride 85 mmol/L (98-107); Estimated Glomerular Filt Rate > 60 mL/min (>60); Glucose 147 mg/dL (80-110); HEMOLYSIS 16 (0-50); Potassium 3.8 mmol/L (3.4-5.1); Sodium 121 mmol/L (137-145)
[2023-12-16 04:01] LABS: Magnesium 1.6 mg/dL (1.6-2.3)
[2023-12-16 04:17] LABS: Procalcitonin 8.54 ng/mL (<0.5)
[2023-12-16] MEDS: fentaNYL 1,000 MCG in DEXTROSE 5% IN WATER 230 ML 23.36 MCG IV (05:13)
[2023-12-16] MEDS: HYDROCORTISONE 100 MG/2 ML VIAL 50 MG IV ×3 (05:16→21:19)
[2023-12-16] MEDS: CHLORHEXIDINE GLUCONATE 15 ML CUP PO ×3 (05:16→16:50)
--- NOTE | 2023-12-16 08:06 | P.PN_ITS ---
Subjective Subjective Interval history: Intubated and sedated, narrative not obtainable. Patient being co-managed with tele-ICU. Being treated for pneumonia and hypoxemia. Exam Vital Signs (past 8 hours): - 12/16/23 00:10 12/16/23 00:15 12/16/23 00:15 Temperature 99.7 F H 99.9 F H Pulse Rate 74 74 Respiratory Rate 19 18 Blood Pressure 117/76 Pulse Oximetry 96 96 Oxygen Delivery Method 12/16/23 00:20 12/16/23 00:25 12/16/23 00:30 Temperature 100.6 F H 100.6 F H 100.2 F H Pulse Rate 74 74 74 Respiratory Rate 19 18 18 Blood Pressure Pulse Oximetry 96 96 96 Oxygen Delivery Method 12/16/23 00:30 12/16/23 00:35 12/16/23 00:40 Temperature 100.4 F H 100.4 F H Pulse Rate 74 74 Respiratory Rate 19 19 Blood Pressure 114/68 Pulse Oximetry 96 96 Oxygen Delivery Method 12/16/23 00:45 12/16/23 00:45 12/16/23 00:50 Temperature 99.9 F H 100.2 F H Pulse Rate 74 73 Respiratory Rate 17 17 Blood Pressure 105/62 Pulse Oximetry 95 95 Oxygen Delivery Method 12/16/23 00:55 12/16/23 01:00 12/16/23 01:00 Temperature 100.6 F H 100.9 F H Pulse Rate 76 73 Respiratory Rate 19 20 Blood Pressure 99/58 L Pulse Oximetry 95 95 Oxygen Delivery Method 12/16/23 01:05 12/16/23 01:10 12/16/23 01:15 Temperature 100.9 F H 100.0 F H 99.9 F H Pulse Rate 73 72 72 Respiratory Rate 20 18 19 Blood Pressure Pulse Oximetry 95 96 95 Oxygen Delivery Method 12/16/23 01:15 12/16/23 01:20 12/16/23 01:25 Temperature 100.2 F H 100.4 F H Pulse Rate 72 72 Respiratory Rate 19 19 Blood Pressure 97/61 Pulse Oximetry 96 96 Oxygen Delivery Method 12/16/23 01:30 12/16/23 01:30 12/16/23 01:35 Temperature 100.2 F H 100.4 F H Pulse Rate 72 72 Respiratory Rate 18 19 Blood Pressure 102/64 Pulse Oximetry 96 96 Oxygen Delivery Method 12/16/23 01:40 12/16/23 01:45 12/16/23 01:45 Temperature 100.2 F H 99.9 F H Pulse Rate 72 72 Respiratory Rate 19 17 Blood Pressure 105/66 Pulse Oximetry 96 96 Oxygen Delivery Method 12/16/23 01:50 12/16/23 01:55 12/16/23 02:00 Temperature 99.9 F H 99.9 F H Pulse Rate 72 72 Respiratory Rate 18 18 Blood Pressure 104/67 Pulse Oximetry 96 96 Oxygen Delivery Method 12/16/23 02:00 12/16/23 02:05 12/16/23 02:10 Temperature 99.7 F H 99.5 F 99.1 F Pulse Rate 72 72 71 Respiratory Rate 18 18 18 Blood Pressure Pulse Oximetry 96 96 99 Oxygen Delivery Method 12/16/23 02:15 12/16/23 02:15 12/16/23 02:20 Temperature 99.5 F 99.3 F Pulse Rate 71 71 Respiratory Rate 18 19 Blood Pressure 109/68 Pulse Oximetry 97 96 Oxygen Delivery Method 12/16/23 02:25 12/16/23 02:30 12/16/23 02:30 Temperature 99.0 F 99.0 F Pulse Rate 71 71 Respiratory Rate 19 18 Blood Pressure 108/70 Pulse Oximetry 95 95 Oxygen Delivery Method 12/16/23 02:35 12/16/23 02:40 12/16/23 02:45 Temperature 99.0 F 99.3 F 99.0 F Pulse Rate 71 71 71 Respiratory Rate 18 19 20 Blood Pressure Pulse Oximetry 95 95 95 Oxygen Delivery Method 12/16/23 02:45 12/16/23 02:50 12/16/23 02:55 Temperature 99.0 F 99.3 F Pulse Rate 71 71 Respiratory Rate 18 18 Blood Pressure 110/72 Pulse Oximetry 95 95 Oxygen Delivery Method 12/16/23 03:00 12/16/23 03:00 12/16/23 03:05 Temperature 98.8 F 98.8 F Pulse Rate 71 71 Respiratory Rate 20 19 Blood Pressure 111/71 Pulse Oximetry 95 95 Oxygen Delivery Method 12/16/23 03:10 12/16/23 03:15 12/16/23 03:15 Temperature 98.8 F 99.0 F Pulse Rate 71 71 Respiratory Rate 19 18 Blood Pressure 113/70 Pulse Oximetry 95 95 Oxygen Delivery Method 12/16/23 03:20 12/16/23 03:25 12/16/23 03:30 Temperature 98.6 F 99.3 F 98.8 F Pulse Rate 71 71 71 Respiratory Rate 19 19 18 Blood Pressure Pulse Oximetry 95 95 95 Oxygen Delivery Method 12/16/23 03:30 12/16/23 03:35 12/16/23 03:40 Temperature 100.2 F H 100.2 F H Pulse Rate 71 71 Respiratory Rate 18 19 Blood Pressure 109/70 Pulse Oximetry 95 95 Oxygen Delivery Method 12/16/23 03:45 12/16/23 03:45 12/16/23 03:50 Temperature 100.2 F H 100.2 F H Pulse Rate 71 71 Respiratory Rate 17 18 Blood Pressure 110/71 Pulse Oximetry 95 95 Oxygen Delivery Method 12/16/23 03:55 12/16/23 04:00 12/16/23 04:00 Temperature 100.0 F H 100.6 F H Pulse Rate 71 71 Respiratory Rate 18 18 Blood Pressure 107/67 Pulse Oximetry 95 95 Oxygen Delivery Method 12/16/23 04:00 12/16/23 04:05 12/16/23 04:10 Temperature 100.8 F H 100.2 F H Pulse Rate 71 71 Respiratory Rate 19 18 Blood Pressure Pulse Oximetry 95 95 Oxygen Delivery Method Mechanical Ventilation 12/16/23 04:15 12/16/23 04:15 12/16/23 04:20 Temperature 100.2 F H 100.8 F H Pulse Rate 71 71 Respiratory Rate 19 20 Blood Pressure 110/70 Pulse Oximetry 95 95 Oxygen Delivery Method 12/16/23 04:25 12/16/23 04:30 12/16/23 04:30 Temperature 100.8 F H 100.6 F H Pulse Rate 71 71 Respiratory Rate 20 18 Blood Pressure 105/69 Pulse Oximetry 95 95 Oxygen Delivery Method 12/16/23 04:35 12/16/23 04:40 12/16/23 04:45 Temperature 100.4 F H 100.8 F H 100.8 F H Pulse Rate 71 71 71 Respiratory Rate 19 18 20 Blood Pressure Pulse Oximetry 95 96 95 Oxygen Delivery Method 12/16/23 04:45 12/16/23 04:50 12/16/23 04:55 Temperature 100.9 F H 100.6 F H Pulse Rate 71 71 Respiratory Rate 18 18 Blood Pressure 107/69 Pulse Oximetry 95 95 Oxygen Delivery Method 12/16/23 05:00 12/16/23 05:00 12/16/23 05:05 Temperature 100.6 F H 101.1 F H Pulse Rate 71 71 Respiratory Rate 17 18 Blood Pressure 103/65 Pulse Oximetry 95 95 Oxygen Delivery Method 12/16/23 05:10 12/16/23 05:15 12/16/23 05:15 Temperature 100.9 F H 100.6 F H Pulse Rate 70 70 Respiratory Rate 17 17 Blood Pressure 101/65 Pulse Oximetry 95 95 Oxygen Delivery Method 12/16/23 05:20 12/16/23 05:25 12/16/23 05:30 Temperature 100.8 F H 100.2 F H 101.1 F H Pulse Rate 70 71 69 Respiratory Rate 17 17 18 Blood Pressure Pulse Oximetry 95 95 95 Oxygen Delivery Method 12/16/23 05:30 12/16/23 05:35 12/16/23 05:40 Temperature 101.3 F H 101.1 F H Pulse Rate 69 70 Respiratory Rate 18 16 Blood Pressure 102/65 Pulse Oximetry 94 94 Oxygen Delivery Method 12/16/23 05:45 12/16/23 05:45 12/16/23 05:50 Temperature 101.3 F H 101.1 F H Pulse Rate 70 69 Respiratory Rate 17 17 Blood Pressure 99/65 Pulse Oximetry 95 95 Oxygen Delivery Method 12/16/23 05:55 12/16/23 06:00 12/16/23 06:00 Temperature 100.8 F H 99.9 F H Pulse Rate 70 69 Respiratory Rate 18 16 Blood Pressure 100/65 Pulse Oximetry 95 95 Oxygen Delivery Method 12/16/23 06:05 12/16/23 06:10 12/16/23 06:15 Temperature 99.3 F 99.5 F Pulse Rate 68 69 Respiratory Rate 16 17 Blood Pressure 98/65 Pulse Oximetry 95 95 Oxygen Delivery Method 12/16/23 06:15 12/16/23 06:20 12/16/23 06:25 Temperature 99.0 F 99.3 F 99.3 F Pulse Rate 69 69 68 Respiratory Rate 16 17 16 Blood Pressure Pulse Oximetry 95 96 95 Oxygen Delivery Method 12/16/23 06:30 12/16/23 06:30 12/16/23 06:35 Temperature 99.1 F 98.6 F Pulse Rate 68 69 Respiratory Rate 19 18 Blood Pressure 99/65 Pulse Oximetry 96 96 Oxygen Delivery Method 12/16/23 06:40 12/16/23 06:45 12/16/23 06:45 Temperature 98.2 F 99.0 F Pulse Rate 70 68 Respiratory Rate 17 16 Blood Pressure 103/66 Pulse Oximetry 96 96 Oxygen Delivery Method 12/16/23 06:50 12/16/23 06:55 12/16/23 07:00 Temperature 98.1 F 97.9 F Pulse Rate 68 68 Respiratory Rate 16 16 Blood Pressure 100/65 Pulse Oximetry 96 96 Oxygen Delivery Method 12/16/23 07:00 12/16/23 07:05 12/16/23 07:10 Temperature 98.6 F 98.4 F 98.1 F Pulse Rate 68 68 68 Respiratory Rate 16 16 16 Blood Pressure Pulse Oximetry 96 96 96 Oxygen Delivery Method 12/16/23 07:15 12/16/23 07:15 Temperature 98.1 F Pulse Rate 67 Respiratory Rate 16 Blood Pressure 99/65 Pulse Oximetry 99 Oxygen Delivery Method Fraction of Inspired Oxygen 30 Oxygen Delivery Method Mechanical Ventilation Oxygen Flow Rate 98 Narrative Exam Narrative: Intubated and sedated. Lungs clear with symmetric BS CV regular, no murmur. Abdomen flat and soft. No leg edema. No movements. No skin rash. Objective Labs 12/16/23 03:40 12/16/23 03:40 Labs: Laboratory Results - last 24 hr 12/15/23 12/15/23 12/15/23 09:35 13:08 15:10 WBC RBC Hgb Hct MCV MCH MCHC RDW Plt Count Neut % (Auto) Lymph % (Auto) Blanco % (Auto) Eos % (Auto) Baso % (Auto) Neut # (Auto) Lymph # (Auto) [place] # (Auto) Eos # (Auto) Baso # (Auto) Sodium 121 L 121 L 121 L Potassium 3.8 3.3 L 3.2 L Chloride 82 L 82 L 81 L Carbon Dioxide 36 H 36 H 35 H BUN 9 9 10 Creatinine 0.53 L 0.53 L 0.52 L Estimated GFR > 60 > 60 > 60 BUN/Creatinine Ratio 17.0 17.0 19.2 Glucose 97 104 100 Calcium 8.1 L 8.2 L 8.0 L Magnesium Procalcitonin Vancomycin Trough 12/15/23 12/15/23 12/15/23 17:10 19:07 21:30 WBC RBC Hgb Hct MCV MCH MCHC RDW Plt Count Neut % (Auto) Lymph % (Auto) Blanco % (Auto) Eos % (Auto) Baso % (Auto) Neut # (Auto) Lymph # (Auto) [place] # (Auto) Eos # (Auto) Baso # (Auto) Sodium 122 L 121 L 120 L Potassium 3.3 L 3.7 4.2 Chloride 82 L 83 L 83 L Carbon Dioxide 35 H 35 H 33 H BUN 11 13 14 Creatinine 0.63 L 0.59 L 0.61 L Estimated GFR > 60 > 60 > 60 BUN/Creatinine Ratio 17.5 22.0 23.0 H Glucose 110 125 H 149 H Calcium 8.0 L 7.9 L 7.7 L Magnesium 1.6 Procalcitonin Vancomycin Trough 12/15/23 12/16/23 12/16/23 23:21 00:25 03:40 WBC 15.0 H RBC 3.04 L Hgb 8.2 L Hct 24.5 L MCV 80.6 MCH 26.9 MCHC 33.3 RDW 15.3 H Plt Count 327 Neut % (Auto) 88.5 H Lymph % (Auto) 5.5 L Blanco % (Auto) 5.9 Eos % (Auto) 0.0 L Baso % (Auto) 0.1 Neut # (Auto) 25739 H Lymph # (Auto) 800 L Blanco # (Auto) 900 Eos # (Auto) 0 Baso # (Auto) 0 Sodium 120 L 121 L Potassium 3.9 3.8 Chloride 84 L 85 L Carbon Dioxide 33 H 31 BUN 16 18 Creatinine 0.49 L 0.44 L Estimated GFR > 60 > 60 BUN/Creatinine Ratio 32.7 H 40.9 H Glucose 147 H 147 H Calcium 7.7 L 7.6 L Magnesium 1.6 Procalcitonin 8.54 H Vancomycin Trough 9.2 L PFSH Medical History Tracheostomy in place Sepsis Muscle pain Foot pain Ankle pain Chronic back pain Acid reflux Tobacco use disorder, moderate, in early remission Hypertension Ankylosing spondylitis Alcohol abuse Ankylosing spondylitis (1985) GERD (gastroesophageal reflux disease) Hypertension Fracture cervical vertebra-closed Surgical History Status post incision and drainage History of open reduction and internal fixation (ORIF) procedure (2005) Status post colonoscopy (2012) History of tonsillectomy Family History Father No problems noted. Mother Cancer Other Alcoholism Colorectal cancer Social History household members: family Smoking Status: Current every day smoker Assessment & Plan Assessment & Plan narrative: 1. Acute hypoxemic respiratory failure, POA and improving. -secondary to aspiration pneumonia, sepsis -intubated on admit, tube exchanged 12/15. -past hx tracheostomy -cont Vanc/cefepime (5 to 7 days). -replaced ET tube 12/15 due to cuff leak 2. Septic shock, POA and improving. -cont pressor support, maintain MAP > 65 -PCR + adenovirus, + entero/rhino, +nasal MRSA -blood cultures neg so far -Vanc/cefepime -stress dose steroids (3-5 days) 3. Acute metabolic encephalopathy, POA and active. -secondary to opiod o.d., sepsis, hyponatremia -tox screen + methamphetamines. -on propofol and fentanyl drip - will switch to Precedex and taper off propofol if possible -RASS goal -1 to 0 4. Acute hyponatremia, POA and active. -likely SIADH -urine Na 66, urine osm pending -will start NaCl PO today. 5. Severe protein calorie malnutrition, POA and active. 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 Hypomagnesemia, hypokalemia, POA and improving. - MgSO4, K-riders -recheck daily 7. DM 2, POA and active. -cont SC insulin. - Goal BS < 180 DVT prevention: on heparin SQ bid Code status: asian studies program chair Spent With Patient Time with patient: 30 to 49 minutes with 50% spent counseling/coordinating care Quality VTE Deep Vein Thrombosis/Pulmonary Embolism Present on Admission: No
[2023-12-16 08:29] LABS: BUN Creatinine Ratio 39.2 (6-22); Blood Urea Nitrogen 20 mg/dL (9-20); Calcium 7.7 mg/dL (8.4-10.2); Carbon Dioxide 33 mmol/L (22-32); Chloride 87 mmol/L (98-107); Estimated Glomerular Filt Rate > 60 mL/min (>60); Glucose 169 mg/dL (80-110); HEMOLYSIS < 15 (0-50); Potassium 3.8 mmol/L (3.4-5.1); Sodium 123 mmol/L (137-145)
[2023-12-16] MEDS: CEFEPIME 2 GM in SODIUM CHLORIDE 0.9% 100 ML IV ×2 (08:32→19:50)
[2023-12-16] MEDS: FAMOTIDINE 20 MG/2 ML VIAL IV (08:32)
[2023-12-16] MEDS: HEPARIN 5,000 UNIT/ML VIAL 5000 UNIT SUBCUT ×2 (08:38→20:32)
[2023-12-16] MEDS: MAGNESIUM SULFATE 2 GM/50 ML PIGGYBACK IV (08:38)
[2023-12-16] MEDS: SODIUM CHLORIDE 0.9% FLUSH 10 ML IV ×2 (08:38→20:32)
--- NOTE | 2023-12-16 08:55 | PM.PN.EICU ---
Subjective Subjective IF CAMERA ACTIVATED, patient seen via real-time interactive audiovisual communication: Camera activated Consent obtained for tele-filter filler care: Yes Patient Location: ICU Provider location (State): [place] Other participants/roles: RN, hospitalist Interval history: Patient: 63 years old male with history of ankylosing spondylitis, h/o of tracheostomy in the past, dependence and alcohol abuse admitted 12/14/23 with PNA, septic shock, hyponatremia, and Acute respiratory failure requiring intubation. Urine Tox positive for Meth. Viral swab positive for adenovirus and rhinovirus. Patient started on cefepime and Vanco. Levophed and vasopressin started. CT head with no acute intracranial hemorrhage or mass effect. Bilateral maxillary sinus air-fluid levels consistent with intubation. Chest x-ray with diffuse bilateral pulmonary opacities suspicious for pneumonia or aspiration. Recent events: -Na improved from 121 to 123 after 3% NaCl 30 cc/hr x 4 hours given yesterday and free water flushes held -Pt. switched from propofol to Dex drip and sedatives are down to Dex 0.6 and Fental 1.5. According to nurse patient will open eyes to stimuli -Levophed drip off, Vasopressin now at 0.03 u/hr -Vent currently at R 16 Vt 470 PEEP 5 and FIo2 30%, secretions are minimal Current Medications Current Medications Medications: Home Medications albuterol 90 mcg/actuation aerosol inhaler 90 mcg inhalation PRN PRN Shortness Of Breath 12/14/23 [History Confirmed 12/14/23] Visit Medications (administered) Generic Name Dose Route Start Last Admin Trade Name Freq PRN Reason Stop Dose Admin Acetaminophen 650 mg 12/14/23 15:39 12/15/23 17:46 Acetaminophen 325 Mg Tablet PO 650 mg Q6H PRN Administration Fever/Mild Pain (1-3) Chlorhexidine Gluconate 15 ml 12/14/23 18:00 12/16/23 05:16 Chlorhexidine Gluconate 15 Ml Cup PO 15 ml Q6HR JYOIT Administration Famotidine 20 mg 12/14/23 21:00 12/16/23 08:32 Famotidine 20 Mg/2 Ml Vial IV 20 mg BID JYOTI Administration Heparin Sodium (Porcine) 5,000 unit 12/14/23 21:00 12/16/23 08:38 Heparin 5,000 Unit/Ml Vial SUBCUT 5,000 unit BID JYOTI Administration Hydrocortisone 50 mg 12/14/23 18:00 12/16/23 05:16 Hydrocortisone 100 Mg/2 Ml Vial IV 50 mg Q6HR JYOTI Administration Cefepime HCl 2 gm/ Sodium 100 mls @ 200 mls/hr 12/14/23 20:00 12/16/23 08:32 Chloride IV 200 mls/hr Q12H JYOTI Administration Fentanyl 1,000 mcg/ Dextrose 250 mls @ 8.176 mls/hr 12/14/23 14:45 12/16/23 05:13 IV 2 mcg/kg/hr TITRATE JYOTI 23.36 mls/hr Administration Protocol 0.7 MCG/KG/HR Propofol 1,000 mg in 100 mls @ 1.402 mls/hr 12/14/23 15:45 12/16/23 08:10 Propofol IV 10 mcg/kg/min TITRATE JYOTI 2.803 mls/hr Titration Protocol 5 MCG/KG/MIN Vasopressin 40 unit/ Sodium 102 mls @ 4.5 mls/hr 12/14/23 15:41 12/16/23 08:00 Chloride IV 3 mls/hr CONT JYOTI Infusion dexmedeTOMIDine in 0.9 % NaCL 400 mcg in 100 mls @ 2.336 mls/hr 12/14/23 15:45 12/16/23 01:55 Precedex IV 0.6 mcg/kg/hr TITRATE JYOTI 7.008 mls/hr Administration 0.2 MCG/KG/HR NOREPINEPHRINE BITARTRATE/D5W 4 mg in 250 mls @ 17.52 mls/hr 12/14/23 15:43 12/16/23 00:30 Levophed IV 0 mcg/kg/min TITRATE JYOTI 0 mls/hr Titration Protocol 0.1 MCG/KG/MIN Magnesium Sulfate 2 gm in 50 mls @ 25 mls/hr 12/16/23 08:18 12/16/23 08:38 Magnesium Sulfate IV 12/16/23 10:17 25 mls/hr NOW ONE Administration Sodium Chloride 10 ml 12/15/23 21:00 12/16/23 08:38 Sodium Chloride 0.9% Flush IV 10 ml BID JYOTI Administration Objective Ventilator Parameters: Ventilator Settings FiO2 30 RT Vent Frequency 16 Ventilator Tidal Volume 470 Exhaled Positive End Expiratory 5 Pressure Inspiratory Phase Time 0.95 I:E Ratio 1:2.9 Patient Position HOB >= 30 degrees Labs 12/16/23 03:40 12/16/23 08:08 Labs: Laboratory Results - last 24 hr 12/15/23 12/15/23 12/15/23 09:35 13:08 15:10 WBC RBC Hgb Hct MCV MCH MCHC RDW Plt Count Neut % (Auto) Lymph % (Auto) [place] % (Auto) Eos % (Auto) Baso % (Auto) Neut # (Auto) Lymph # (Auto) [place] # (Auto) Eos # (Auto) Baso # (Auto) Sodium 121 L 121 L 121 L Potassium 3.8 3.3 L 3.2 L Chloride 82 L 82 L 81 L Carbon Dioxide 36 H 36 H 35 H BUN 9 9 10 Creatinine 0.53 L 0.53 L 0.52 L Estimated GFR > 60 > 60 > 60 BUN/Creatinine Ratio 17.0 17.0 19.2 Glucose 97 104 100 Calcium 8.1 L 8.2 L 8.0 L Magnesium Procalcitonin Vancomycin Peak Vancomycin Trough 12/15/23 12/15/23 12/15/23 17:10 19:07 21:30 WBC RBC Hgb Hct MCV MCH MCHC RDW Plt Count Neut % (Auto) Lymph % (Auto) [place] % (Auto) Eos % (Auto) Baso % (Auto) Neut # (Auto) Lymph # (Auto) [place] # (Auto) Eos # (Auto) Baso # (Auto) Sodium 122 L 121 L 120 L Potassium 3.3 L 3.7 4.2 Chloride 82 L 83 L 83 L Carbon Dioxide 35 H 35 H 33 H BUN 11 13 14 Creatinine 0.63 L 0.59 L 0.61 L Estimated GFR > 60 > 60 > 60 BUN/Creatinine Ratio 17.5 22.0 23.0 H Glucose 110 125 H 149 H Calcium 8.0 L 7.9 L 7.7 L Magnesium 1.6 Procalcitonin Vancomycin Peak Vancomycin Trough 12/15/23 12/16/23 12/16/23 23:21 00:25 03:40 WBC 15.0 H RBC 3.04 L Hgb 8.2 L Hct 24.5 L MCV 80.6 MCH 26.9 MCHC 33.3 RDW 15.3 H Plt Count 327 Neut % (Auto) 88.5 H Lymph % (Auto) 5.5 L [place] % (Auto) 5.9 Eos % (Auto) 0.0 L Baso % (Auto) 0.1 Neut # (Auto) 57697 H Lymph # (Auto) 800 L [place] # (Auto) 900 Eos # (Auto) 0 Baso # (Auto) 0 Sodium 120 L 121 L Potassium 3.9 3.8 Chloride 84 L 85 L Carbon Dioxide 33 H 31 BUN 16 18 Creatinine 0.49 L 0.44 L Estimated GFR > 60 > 60 BUN/Creatinine Ratio 32.7 H 40.9 H Glucose 147 H 147 H Calcium 7.7 L 7.6 L Magnesium 1.6 Procalcitonin 8.54 H Vancomycin Peak 20.0 Vancomycin Trough 9.2 L 12/16/23 08:08 WBC RBC Hgb Hct MCV MCH MCHC RDW Plt Count Neut % (Auto) Lymph % (Auto) [place] % (Auto) Eos % (Auto) Baso % (Auto) Neut # (Auto) Lymph # (Auto) [place] # (Auto) Eos # (Auto) Baso # (Auto) Sodium 123 L Potassium 3.8 Chloride 87 L Carbon Dioxide 33 H BUN 20 Creatinine 0.51 L Estimated GFR > 60 BUN/Creatinine Ratio 39.2 H Glucose 169 H Calcium 7.7 L Magnesium Procalcitonin Vancomycin Peak Vancomycin Trough Exam Vital Signs (past 8 hours): - 12/16/23 01:00 12/16/23 01:00 12/16/23 01:05 Temperature 100.9 F H 100.9 F H Pulse Rate 73 73 Respiratory Rate 20 20 Blood Pressure 99/58 L Pulse Oximetry 95 95 Oxygen Delivery Method 12/16/23 01:10 12/16/23 01:15 12/16/23 01:15 Temperature 100.0 F H 99.9 F H Pulse Rate 72 72 Respiratory Rate 18 19 Blood Pressure 97/61 Pulse Oximetry 96 95 Oxygen Delivery Method 12/16/23 01:20 12/16/23 01:25 12/16/23 01:30 Temperature 100.2 F H 100.4 F H 100.2 F H Pulse Rate 72 72 72 Respiratory Rate 19 19 18 Blood Pressure Pulse Oximetry 96 96 96 Oxygen Delivery Method 12/16/23 01:30 12/16/23 01:35 12/16/23 01:40 Temperature 100.4 F H 100.2 F H Pulse Rate 72 72 Respiratory Rate 19 19 Blood Pressure 102/64 Pulse Oximetry 96 96 Oxygen Delivery Method 12/16/23 01:45 12/16/23 01:45 12/16/23 01:50 Temperature 99.9 F H 99.9 F H Pulse Rate 72 72 Respiratory Rate 17 18 Blood Pressure 105/66 Pulse Oximetry 96 96 Oxygen Delivery Method 12/16/23 01:55 12/16/23 02:00 12/16/23 02:00 Temperature 99.9 F H 99.7 F H Pulse Rate 72 72 Respiratory Rate 18 18 Blood Pressure 104/67 Pulse Oximetry 96 96 Oxygen Delivery Method 12/16/23 02:05 12/16/23 02:10 12/16/23 02:15 Temperature 99.5 F 99.1 F Pulse Rate 72 71 Respiratory Rate 18 18 Blood Pressure 109/68 Pulse Oximetry 96 99 Oxygen Delivery Method 12/16/23 02:15 12/16/23 02:20 12/16/23 02:25 Temperature 99.5 F 99.3 F 99.0 F Pulse Rate 71 71 71 Respiratory Rate 18 19 19 Blood Pressure Pulse Oximetry 97 96 95 Oxygen Delivery Method 12/16/23 02:30 12/16/23 02:30 12/16/23 02:35 Temperature 99.0 F 99.0 F Pulse Rate 71 71 Respiratory Rate 18 18 Blood Pressure 108/70 Pulse Oximetry 95 95 Oxygen Delivery Method 12/16/23 02:40 12/16/23 02:45 12/16/23 02:45 Temperature 99.3 F 99.0 F Pulse Rate 71 71 Respiratory Rate 19 20 Blood Pressure 110/72 Pulse Oximetry 95 95 Oxygen Delivery Method 12/16/23 02:50 12/16/23 02:55 12/16/23 03:00 Temperature 99.0 F 99.3 F Pulse Rate 71 71 Respiratory Rate 18 18 Blood Pressure 111/71 Pulse Oximetry 95 95 Oxygen Delivery Method 12/16/23 03:00 12/16/23 03:05 12/16/23 03:10 Temperature 98.8 F 98.8 F 98.8 F Pulse Rate 71 71 71 Respiratory Rate 20 19 19 Blood Pressure Pulse Oximetry 95 95 95 Oxygen Delivery Method 12/16/23 03:15 12/16/23 03:15 12/16/23 03:20 Temperature 99.0 F 98.6 F Pulse Rate 71 71 Respiratory Rate 18 19 Blood Pressure 113/70 Pulse Oximetry 95 95 Oxygen Delivery Method 12/16/23 03:25 12/16/23 03:30 12/16/23 03:30 Temperature 99.3 F 98.8 F Pulse Rate 71 71 Respiratory Rate 19 18 Blood Pressure 109/70 Pulse Oximetry 95 95 Oxygen Delivery Method 12/16/23 03:35 12/16/23 03:40 12/16/23 03:45 Temperature 100.2 F H 100.2 F H Pulse Rate 71 71 Respiratory Rate 18 19 Blood Pressure 110/71 Pulse Oximetry 95 95 Oxygen Delivery Method 12/16/23 03:45 12/16/23 03:50 12/16/23 03:55 Temperature 100.2 F H 100.2 F H 100.0 F H Pulse Rate 71 71 71 Respiratory Rate 17 18 18 Blood Pressure Pulse Oximetry 95 95 95 Oxygen Delivery Method 12/16/23 04:00 12/16/23 04:00 12/16/23 04:00 Temperature 100.6 F H Pulse Rate 71 Respiratory Rate 18 Blood Pressure 107/67 Pulse Oximetry 95 Oxygen Delivery Method Mechanical Ventilation 12/16/23 04:05 12/16/23 04:10 12/16/23 04:15 Temperature 100.8 F H 100.2 F H Pulse Rate 71 71 Respiratory Rate 19 18 Blood Pressure 110/70 Pulse Oximetry 95 95 Oxygen Delivery Method 12/16/23 04:15 12/16/23 04:20 12/16/23 04:25 Temperature 100.2 F H 100.8 F H 100.8 F H Pulse Rate 71 71 71 Respiratory Rate 19 20 20 Blood Pressure Pulse Oximetry 95 95 95 Oxygen Delivery Method 12/16/23 04:30 12/16/23 04:30 12/16/23 04:35 Temperature 100.6 F H 100.4 F H Pulse Rate 71 71 Respiratory Rate 18 19 Blood Pressure 105/69 Pulse Oximetry 95 95 Oxygen Delivery Method 12/16/23 04:40 12/16/23 04:45 12/16/23 04:45 Temperature 100.8 F H 100.8 F H Pulse Rate 71 71 Respiratory Rate 18 20 Blood Pressure 107/69 Pulse Oximetry 96 95 Oxygen Delivery Method 12/16/23 04:50 12/16/23 04:55 12/16/23 05:00 Temperature 100.9 F H 100.6 F H 100.6 F H Pulse Rate 71 71 71 Respiratory Rate 18 18 17 Blood Pressure Pulse Oximetry 95 95 95 Oxygen Delivery Method 12/16/23 05:00 12/16/23 05:05 12/16/23 05:10 Temperature 101.1 F H 100.9 F H Pulse Rate 71 70 Respiratory Rate 18 17 Blood Pressure 103/65 Pulse Oximetry 95 95 Oxygen Delivery Method 12/16/23 05:15 12/16/23 05:15 12/16/23 05:20 Temperature 100.6 F H 100.8 F H Pulse Rate 70 70 Respiratory Rate 17 17 Blood Pressure 101/65 Pulse Oximetry 95 95 Oxygen Delivery Method 12/16/23 05:25 12/16/23 05:30 12/16/23 05:30 Temperature 100.2 F H 101.1 F H Pulse Rate 71 69 Respiratory Rate 17 18 Blood Pressure 102/65 Pulse Oximetry 95 95 Oxygen Delivery Method 12/16/23 05:35 12/16/23 05:40 12/16/23 05:45 Temperature 101.3 F H 101.1 F H 101.3 F H Pulse Rate 69 70 70 Respiratory Rate 18 16 17 Blood Pressure Pulse Oximetry 94 94 95 Oxygen Delivery Method 12/16/23 05:45 12/16/23 05:50 12/16/23 05:55 Temperature 101.1 F H 100.8 F H Pulse Rate 69 70 Respiratory Rate 17 18 Blood Pressure 99/65 Pulse Oximetry 95 95 Oxygen Delivery Method 12/16/23 06:00 12/16/23 06:00 12/16/23 06:05 Temperature 99.9 F H 99.3 F Pulse Rate 69 68 Respiratory Rate 16 16 Blood Pressure 100/65 Pulse Oximetry 95 95 Oxygen Delivery Method 12/16/23 06:10 12/16/23 06:15 12/16/23 06:15 Temperature 99.5 F 99.0 F Pulse Rate 69 69 Respiratory Rate 17 16 Blood Pressure 98/65 Pulse Oximetry 95 95 Oxygen Delivery Method 12/16/23 06:20 12/16/23 06:25 12/16/23 06:30 Temperature 99.3 F 99.3 F 99.1 F Pulse Rate 69 68 68 Respiratory Rate 17 16 19 Blood Pressure Pulse Oximetry 96 95 96 Oxygen Delivery Method 12/16/23 06:30 12/16/23 06:35 12/16/23 06:40 Temperature 98.6 F 98.2 F Pulse Rate 69 70 Respiratory Rate 18 17 Blood Pressure 99/65 Pulse Oximetry 96 96 Oxygen Delivery Method 12/16/23 06:45 12/16/23 06:45 12/16/23 06:50 Temperature 99.0 F 98.1 F Pulse Rate 68 68 Respiratory Rate 16 16 Blood Pressure 103/66 Pulse Oximetry 96 96 Oxygen Delivery Method 12/16/23 06:55 12/16/23 07:00 12/16/23 07:00 Temperature 97.9 F 98.6 F Pulse Rate 68 68 Respiratory Rate 16 16 Blood Pressure 100/65 Pulse Oximetry 96 96 Oxygen Delivery Method 12/16/23 07:05 12/16/23 07:10 12/16/23 07:15 Temperature 98.4 F 98.1 F 98.1 F Pulse Rate 68 68 67 Respiratory Rate 16 16 16 Blood Pressure Pulse Oximetry 96 96 99 Oxygen Delivery Method 12/16/23 07:15 12/16/23 07:20 12/16/23 07:25 Temperature 98.6 F 98.8 F Pulse Rate 67 67 Respiratory Rate 17 17 Blood Pressure 99/65 Pulse Oximetry 97 96 Oxygen Delivery Method 12/16/23 07:30 12/16/23 07:30 12/16/23 07:35 Temperature 98.6 F 98.6 F Pulse Rate 69 68 Respiratory Rate 18 18 Blood Pressure 102/69 Pulse Oximetry 96 96 Oxygen Delivery Method 12/16/23 07:40 12/16/23 07:45 12/16/23 07:45 Temperature 99.1 F 99.3 F Pulse Rate 67 68 Respiratory Rate 17 16 Blood Pressure 101/65 Pulse Oximetry 96 96 Oxygen Delivery Method 12/16/23 07:50 12/16/23 07:55 12/16/23 08:00 Temperature 99.5 F 99.7 F H 99.1 F Pulse Rate 68 69 68 Respiratory Rate 17 16 17 Blood Pressure Pulse Oximetry 96 96 96 Oxygen Delivery Method 12/16/23 08:00 12/16/23 08:05 12/16/23 08:10 Temperature 99.5 F 100.0 F H Pulse Rate 68 68 Respiratory Rate 17 17 Blood Pressure 101/66 Pulse Oximetry 96 96 Oxygen Delivery Method 12/16/23 08:15 12/16/23 08:20 12/16/23 08:25 Temperature 99.9 F H 99.7 F H 99.9 F H Pulse Rate 69 68 69 Respiratory Rate 16 17 17 Blood Pressure Pulse Oximetry 96 96 96 Oxygen Delivery Method 12/16/23 08:30 12/16/23 08:30 12/16/23 08:35 Temperature 100.2 F H 100.0 F H Pulse Rate 68 72 Respiratory Rate 16 17 Blood Pressure 97/62 Pulse Oximetry 96 96 Oxygen Delivery Method 12/16/23 08:40 12/16/23 08:45 12/16/23 08:50 Temperature 100.0 F H 99.9 F H 100.2 F H Pulse Rate 66 72 68 Respiratory Rate 16 21 16 Blood Pressure Pulse Oximetry 95 96 94 Oxygen Delivery Method 12/16/23 08:52 Temperature Pulse Rate Respiratory Rate 16 Blood Pressure Pulse Oximetry Oxygen Delivery Method Fraction of Inspired Oxygen 30 Oxygen Delivery Method Mechanical Ventilation Oxygen Flow Rate 98 Narrative Exam Narrative: Patient seen over two way audio visual system to be resting calmly. Quality TeleICU VTE Deep Vein Thrombosis/Pulmonary Embolism Present on Admission: No Assessment & Plan Assessment & Plan narrative: Assessment PNA Acute respiratory failure requiring intubation Septic Shock Hyponatremia polysubstance abuse- ETOH, meth, opiates Plan MANAGER WEALTH MANAGEMENT: -wean down sedation as tolerated CV: -wean down pressors as tolerated Pulm: -SBT when patient awake enough ID: continue Vanco and Cefepime -f/u on cultures/sensitivites and adjust abx as needed Heme: hgb slow trending down, could be hemodilution, continue to monitor GI: switch from famotidine 20 mg BID to protonix 40 mg BID given hgb trending down and pt. at high risk for stress ulcer FEN/Renal: stable renal function -Na went from 121 to 123 after getting some 3% NaCl and holding free water flushes -continue free water restriction -hold tube feeds if patient likely to pass SBT, restart tube feeds if patient fails SBT Endo: -reduce stress dose steroids hydrocortisone 50 mg from QID to TID PPx: protonix and SQ heparin Code status FULL Code CCT spent 60 min
[2023-12-16] MEDS: VANCOMYCIN 750 MG/150 ML PIGGYBACK 150 MG IV ×2 (09:18→16:50)
[2023-12-16] MEDS: ACETAMINOPHEN 325 MG TABLET 650 MG PO ×3 (09:25→23:04)
[2023-12-16 10:27] LABS: PCO2 ABG 42.5 mmHg (35-45); pH ABG 7.48 (7.35-7.45)
[2023-12-16 10:34] LABS: Blood Gas Other Coll. Site ART LINE; Fractionated Inspired Oxygen 30; HCO3 ABG 31 mmol/L (23-27); Oxygen Saturation ABG 98 % (95-100); PO2 ABG 96 mmHg (80-100); TCO2 ABG 33 mmol/L (23-27)
[2023-12-16] MEDS: PANTOPRAZOLE 40 MG VIAL IV ×2 (10:34→20:32)
[2023-12-16] MEDS: POTASSIUM CHLORIDE IN WATER 10 MEQ/100 ML PIGGYBACK 100 MEQ IV ×2 (10:35→12:22)
--- NOTE | 2023-12-16 12:20 | CM.DPNOTE ---
Addendum entered by VARGAS Curran 12/16/23 13:19: TRAINING ENGINEER spoke with brother Bettie, confirms no POA and either Kelsea or Yifan are but are unsure what pwk pt has completed. TRAINING ENGINEER attempted to lvm with dtr Kelsea- mailbox full. TRAINING ENGINEER spoke with Yifan- Yifan reports he believes he is POA. He will look for his father's pwk now and bring in a copy later this evening- he plans on being here around 4-5pm and will give a copy to the nursing staff if he finds it. DCP pending following as pt's medical POC continues to unfold SL Original Note: DCP Note TRAINING ENGINEER reviewed EMR. Per RN, attempted breathing trial today but pt failed. Pt was re-sedated, remains intubated, and will attempt a breathing trial again tomorrow. Per review of CM notes, obtaining POA for pt is a priority. Per notes, niece is not POA but is a normal support for pt. Per RN, pt's friend Mercedes Delgado and son Yifan are coming this evening. Friend Mercedes provided number for pt's brother in [place] (Bettie Clay p [phone]). Per previous CM notes, appears to be numerous family members involved. Per previous CM notes, dtr Kelsea ([phone]) or son Yifan ([phone]- box full) may be POA? No response from either of them at this time. Plan: CM team to follow closely/coordinate with family for further discharge planning discussions. CM team will continue to follow closely for either finding established POA pwk or assist pt and family in the creation of new/updated POA pwk. VARGAS Curran
[2023-12-16 12:35] LABS: BUN Creatinine Ratio 41.1 (6-22); Blood Urea Nitrogen 23 mg/dL (9-20); Calcium 7.9 mg/dL (8.4-10.2); Carbon Dioxide 33 mmol/L (22-32); Chloride 87 mmol/L (98-107); Estimated Glomerular Filt Rate > 60 mL/min (>60); Glucose 145 mg/dL (80-110); HEMOLYSIS < 15 (0-50); Potassium 3.9 mmol/L (3.4-5.1); Sodium 123 mmol/L (137-145)
[2023-12-16] MEDS: dexmedeTOMIDine in 0.9 % NaCL 400 MCG/100 ML PLAST..BAG 14.016 MCG IV (12:36)
[2023-12-16] MEDS: propofoL 1,000 MG/100 ML VIAL 5.606 MG IV (13:05)
--- NOTE | 2023-12-16 15:09 | PC.NURSE ---
Day Shift Note Patient intubated and sedated, mechanical vent settings FiO2 25%/TV 470/RR 16/PEEP 5. SpO2 in the 93-96% range. Sedation turned off this morning, except for precedex 0.6 mcg/kg/hr. Pt opens eyes, tracks, and can follow commands. Hand squeeze very weak bilaterally. SBT attempted by RT, breaths with insufficient volume, RR increasing to upper 30s - see charting. Pt placed back on vent with RASS +2. Precedex and fentanyl gtts increased with moderate effect (RASS +1) but pt required propofol to achieve RASS of -2 to -1. Pt now resting calmly, opening eyes briefly to voice. The above was reviewed with both Dr. Milan and Dr. Oakes (tele-acid strength inspector). Dr. Oakes recommends titrating precedex and propofol up if needed and to attempt to decrease fentanyl gtt to facilitate weaning from vent tomorrow - see MAR for titration trends. Vasopressin d/c'd after morning rounds and pt placed back on levophed, requiring dose of 0.05 mcg/kg/min to keep MAP greater than 65. Last ordered BMP at 1999, reviewed with Dr. Oakes who gave instructions to review further need during evening rounds. ART line in place, zeroed per protocol. Tube feeds increased to 30 ml/hr per MD order, pt tolerating well, awaiting formal dietary consult with recommendations. Soft wrist restraints in place bilaterally. Bed alarm on for safety. Manley catheter in place and draining clear yellow urine.
--- NOTE | 2023-12-16 16:00 | DIET.CONS ---
Dietary Consultation Note Admission Date: 12/14/2023 14:22 Assessment: 63y M admitted for acute hypoxemic respiratory failure found to have both adenovirus and rhinovirus with positive UA for methamphetamine currently intubated referred to nutrition for malnutrition treatment and Tube Feeding reccs. Pt has hx prolonged intubation requiring tracheostomy and PEG tube with LTAC stay. Pt has since had his trach and PEG removed. Per family report, pt lives with family with active substance use [facility] Pts from cancer a few years ago. Pt is 10kg lower than his lowest adult BW on file and 20kg lower than his healthy BW. Current BMI 15.6 (severe). Pt was placed on trophic enteral feeds via OG yesterday per protocol. Ht: 172.72 cm Wt: 46.9 kg BMI: 15.6 (severe) UBW: 67kg Last BM: () MNA: Inder Score: 12 Diet: Tube Feeding Diet Diet Modifications: May Advance Diet as Tolerated: No TF Supplement type: Pivot 1.5 TF mode of delivery: Continuous Starting flow rate mL/hr: 20 Flow rate goal mL/hr: 40 Titration Schedule to reach Goal Rate: 20 Max total daily volume in mL: 480 Free fluid: 0 Free Water Frequency: Q12H Nutrition Type of Feeding Tube NG/OG 12/16/23 11:38 Type of Feeding Tube NG/OG 12/15/23 12:18 Labs: RBC 3.04 X10^6/uL (4.5-5.9) L 12/16/23 03:40 Hgb 8.2 g/dL (13.5-17.5) L 12/16/23 03:40 Hct 24.5 % (41-53) L 12/16/23 03:40 Creatinine 0.56 mg/dL (0.66-1.25) L 12/16/23 12:05 Lactate 0.9 mmol/L (0.7-2.1) 12/14/23 12:02 NT-Pro-B Natriuret Pep 8410 pg/mL (<125) H 12/14/23 10:03 Nutrition Diagnosis: Severe Acute on Chronic Protein Calorie Malnutrition r/t grief, difficulty managing self care aeb BMI 15 (severe), pt with + UA for methamphetamine, pt severe weight loss corresponds to of spouse, pt intubated and sedated requiring nutrition support. Interventions: 1. Recc advancing pt to 30mL continuous enteral feeding via OG of formula Pivot 1.5. Alarm Adjuster to manage free water due to hyponatremia. Goal feed provides: 1440 kcals (31kcal/kg), 90g PRO (1.9g/kg), 166g CHO, 729mL feed water. Recc 60mL free water q8h to keep tubes patent. 2. Alarm Adjuster to monitor fluid needs. 3. HOB >30 degrees at all time. Monitoring/Evaluations: following daily and will modify plan once pt transitions to PO intake. Electronically Signed by: Pati Parikh 12/16/23 16:00 Clinical Diet[address] [id number]
[2023-12-16 16:07] LABS: Blood Gas Collection Site Other Site
[2023-12-16 16:11] LABS: Blood Gas Collection Site Right Brachial
[2023-12-16 16:12] LABS: Blood Gas Collection Site Left Radial
[2023-12-16 16:38] LABS: BUN Creatinine Ratio 43.6 (6-22); Blood Urea Nitrogen 24 mg/dL (9-20); Calcium 8.1 mg/dL (8.4-10.2); Carbon Dioxide 35 mmol/L (22-32); Chloride 91 mmol/L (98-107); Estimated Glomerular Filt Rate > 60 mL/min (>60); Glucose 146 mg/dL (80-110); HEMOLYSIS < 15 (0-50); Potassium 3.7 mmol/L (3.4-5.1); Sodium 129 mmol/L (137-145)
[2023-12-16] MEDS: fentaNYL 1,000 MCG in DEXTROSE 5% IN WATER 230 ML 20.44 MCG IV (16:50)
[2023-12-16] MEDS: NOREPINEPHRINE BITARTRATE/D5W 4 MG/250 ML PLAST..BAG 7.008 MG IV (16:50)
[2023-12-16] MEDS: dexmedeTOMIDine in 0.9 % NaCL 400 MCG/100 ML PLAST..BAG 17.52 MCG IV (18:49)
[2023-12-16 20:31] LABS: BUN Creatinine Ratio 47.2 (6-22); Blood Urea Nitrogen 25 mg/dL (9-20); Calcium 7.9 mg/dL (8.4-10.2); Carbon Dioxide 35 mmol/L (22-32); Chloride 92 mmol/L (98-107); Estimated Glomerular Filt Rate > 60 mL/min (>60); Glucose 170 mg/dL (80-110); HEMOLYSIS < 15 (0-50); Potassium 3.6 mmol/L (3.4-5.1); Sodium 130 mmol/L (137-145)
--- NOTE | 2023-12-16 21:00 | P.ICUMDRN_ITS ---
- Date Patient Seen: 12/16/23 :: This patient was seen via real time interactive two-way audiovisual telecommunic ation. Note: Remains intubated and sedated. Failed SBT today. Na improving to 130. On fluid restriction. If continues to trend up then will start D5W to avoid overcorrection. D/w bedside RN.
[2023-12-16] MEDS: propofoL 1,000 MG/100 ML VIAL 9.811 MG IV (21:19)
[2023-12-17] VITALS (214 sets, daily range): BP systolic 84–137; BP diastolic 55–81; PULSE 54–104; RESP 16–145; TEMP 37–38.7; O2SAT 78–100
[2023-12-17] MEDS: dexmedeTOMIDine in 0.9 % NaCL 400 MCG/100 ML PLAST..BAG 17.52 MCG IV ×3 (00:05→17:18)
[2023-12-17] MEDS: CHLORHEXIDINE GLUCONATE 15 ML CUP PO ×5 (00:23→23:37)
[2023-12-17] MEDS: VANCOMYCIN 750 MG/150 ML PIGGYBACK 150 MG IV ×3 (00:24→17:19)
[2023-12-17 05:00] LABS: Add Manual Diff / Slide Review NO; Basophils Absolute Auto 0 /uL (0-100); Basophils Percent Auto 0.1 % (0-2); Eosinophils Absolute Auto 0 /uL (0-450); Hematocrit 26.1 % (41-53); Hemoglobin 8.5 g/dL (13.5-17.5); Lymphocytes Absolute Auto 800 /uL (1100-4500); Lymphocytes Percent Auto 6.1 % (25-40); Mean Corpuscular HGB Conc 32.6 % (30-36); Mean Corpuscular Hemoglobin 26.7 PG (26-34); Mean Corpuscular Volume 81.7 fL (80-100); Monocytes Absolute Auto 1100 /uL (0-900); Monocytes Percent Auto 8.5 % (3-14); Neutrophils Absolute Auto 11500 /uL (1500-7000); Neutrophils Percent Auto 85.3 % (50-75); Platelet Count 399 X10^3/uL (150-400); Red Blood Cell Count 3.19 X10^6/uL (4.5-5.9); Red Cell Distribution Width 15.5 % (11.6-14.8); White Blood Cell Count 13.4 X10^3/uL (4.5-11.0)
[2023-12-17] MEDS: HYDROCORTISONE 100 MG/2 ML VIAL 50 MG IV ×3 (05:14→21:19)
[2023-12-17] MEDS: fentaNYL 1,000 MCG in DEXTROSE 5% IN WATER 230 ML 17.52 MCG IV ×2 (05:15→22:13)
[2023-12-17 05:22] LABS: BUN Creatinine Ratio 65.1 (6-22); Blood Urea Nitrogen 28 mg/dL (9-20); Calcium 7.7 mg/dL (8.4-10.2); Carbon Dioxide 34 mmol/L (22-32); Chloride 95 mmol/L (98-107); Estimated Glomerular Filt Rate > 60 mL/min (>60); Glucose 155 mg/dL (80-110); HEMOLYSIS < 15 (0-50); Magnesium 1.9 mg/dL (1.6-2.3); Potassium 3.5 mmol/L (3.4-5.1); Sodium 132 mmol/L (137-145)
[2023-12-17] MEDS: propofoL 1,000 MG/100 ML VIAL 8.41 MG IV (06:51)
--- NOTE | 2023-12-17 07:52 | DI.RAD.S_ITS ---
PROCEDURE: XR CHEST 1V INDICATIONS: decrease in O2 saturation/coarse lung sounds TECHNIQUE: One view of the chest was acquired. COMPARISON: [facility], CR, XR CHEST 1 VIEW, 04/17/2023, 12:22. [facility], CR, XR CHEST 1V, 12/15/2023, 8:43. [facility], CR, XR CHEST 1V, 12/14/2023, 11:15. FINDINGS: Surgical changes and devices: Endotracheal tube in the midtrachea. Enteric tube coursing into the stomach. Right IJ central venous line with the catheter tip at the lower 3rd of the SVC. Lungs and pleura: Bilateral patchy airspace opacity is not significantly changed. No significant pleural effusions or pneumothorax. Mediastinum: Mediastinal contours appear unchanged. Heart size is within normal limits. Bones and chest wall: No suspicious bony lesions. Overlying soft tissues appear unremarkable. IMPRESSION: 1. Tubes and lines project in the expected locations. 2. Bilateral patchy airspace opacity is not significantly changed. Dictated by: Damian Rivera M.D. on 12/17/2023 at 10:10 Approved by: Damian Rivera M.D. on 12/17/2023 at 10:13
[2023-12-17 07:58] LABS: PCO2 ABG 48.7 mmHg (35-45); PO2 ABG 72 mmHg (80-100); pH ABG 7.42 (7.35-7.45)
[2023-12-17 07:59] LABS: Blood Gas Collection Site Left Radial; Blood Gas Other Coll. Site ALINE; Fractionated Inspired Oxygen 40; HCO3 ABG 32 mmol/L (23-27); Oxygen Saturation ABG 94 % (95-100); TCO2 ABG 33 mmol/L (23-27)
--- NOTE | 2023-12-17 08:14 | P.PN_ITS ---
Subjective Subjective Interval history: The patient is intubated and sedated. Narrative not obtainable. Several desaturations reported over the last 2 hours. The patient has more coarse breath sounds reported this morning. FiO2 is 0.40. No other overnight events. Exam Vital Signs (past 8 hours): - 12/17/23 00:15 12/17/23 00:20 12/17/23 00:22 Temperature 101.5 F H 101.5 F H 101.7 F H Pulse Rate 80 80 Respiratory Rate 18 17 Blood Pressure Pulse Oximetry 95 95 Oxygen Delivery Method 12/17/23 00:25 12/17/23 00:30 12/17/23 00:30 Temperature 101.3 F H 101.3 F H Pulse Rate 82 80 Respiratory Rate 17 16 Blood Pressure 111/73 Pulse Oximetry 95 96 Oxygen Delivery Method 12/17/23 00:35 12/17/23 00:40 12/17/23 00:45 Temperature 101.5 F H 101.5 F H 101.3 F H Pulse Rate 78 77 76 Respiratory Rate 16 17 18 Blood Pressure Pulse Oximetry 95 95 96 Oxygen Delivery Method 12/17/23 00:50 12/17/23 00:55 12/17/23 01:00 Temperature 101.3 F H 101.5 F H Pulse Rate 76 76 Respiratory Rate 17 16 Blood Pressure 125/80 Pulse Oximetry 96 96 Oxygen Delivery Method 12/17/23 01:00 12/17/23 01:05 12/17/23 01:10 Temperature 101.1 F H 101.3 F H 101.3 F H Pulse Rate 77 77 75 Respiratory Rate 16 19 19 Blood Pressure Pulse Oximetry 96 96 96 Oxygen Delivery Method 12/17/23 01:15 12/17/23 01:20 12/17/23 01:25 Temperature 101.5 F H 101.3 F H 101.5 F H Pulse Rate 75 75 76 Respiratory Rate 16 17 16 Blood Pressure Pulse Oximetry 96 96 96 Oxygen Delivery Method 12/17/23 01:30 12/17/23 01:30 12/17/23 01:35 Temperature 101.5 F H 100.9 F H Pulse Rate 76 80 Respiratory Rate 16 17 Blood Pressure 121/79 Pulse Oximetry 96 96 Oxygen Delivery Method 12/17/23 01:40 12/17/23 01:45 12/17/23 01:50 Temperature 101.3 F H 101.3 F H 101.3 F H Pulse Rate 71 71 72 Respiratory Rate 16 16 16 Blood Pressure Pulse Oximetry 95 95 95 Oxygen Delivery Method 12/17/23 01:55 12/17/23 02:00 12/17/23 02:00 Temperature 101.3 F H 101.1 F H Pulse Rate 71 72 Respiratory Rate 16 16 Blood Pressure 108/70 Pulse Oximetry 96 95 Oxygen Delivery Method 12/17/23 02:05 12/17/23 02:10 12/17/23 02:15 Temperature 100.9 F H 100.9 F H 101.1 F H Pulse Rate 72 71 73 Respiratory Rate 16 16 16 Blood Pressure Pulse Oximetry 95 95 95 Oxygen Delivery Method 12/17/23 02:20 12/17/23 02:25 12/17/23 02:30 Temperature 101.1 F H 101.3 F H 101.3 F H Pulse Rate 72 72 72 Respiratory Rate 16 16 16 Blood Pressure Pulse Oximetry 95 95 95 Oxygen Delivery Method 12/17/23 02:30 12/17/23 02:35 12/17/23 02:40 Temperature 101.5 F H 101.5 F H Pulse Rate 71 72 Respiratory Rate 16 16 Blood Pressure 111/73 Pulse Oximetry 95 95 Oxygen Delivery Method 12/17/23 02:45 12/17/23 02:50 12/17/23 02:55 Temperature 101.5 F H 101.5 F H 101.5 F H Pulse Rate 72 72 71 Respiratory Rate 16 16 16 Blood Pressure Pulse Oximetry 95 95 95 Oxygen Delivery Method 12/17/23 03:00 12/17/23 03:00 12/17/23 03:05 Temperature 101.3 F H 101.5 F H Pulse Rate 70 70 Respiratory Rate 16 16 Blood Pressure 114/73 Pulse Oximetry 95 96 Oxygen Delivery Method 12/17/23 03:10 12/17/23 03:15 12/17/23 03:20 Temperature 101.3 F H 101.3 F H 101.5 F H Pulse Rate 71 71 71 Respiratory Rate 16 16 16 Blood Pressure Pulse Oximetry 96 95 96 Oxygen Delivery Method 12/17/23 03:25 12/17/23 03:30 12/17/23 03:30 Temperature 101.3 F H 101.3 F H Pulse Rate 71 70 Respiratory Rate 16 16 Blood Pressure 112/72 Pulse Oximetry 96 95 Oxygen Delivery Method 12/17/23 03:35 12/17/23 03:40 12/17/23 03:45 Temperature 100.9 F H 100.9 F H 101.3 F H Pulse Rate 70 69 70 Respiratory Rate 16 16 16 Blood Pressure Pulse Oximetry 95 95 95 Oxygen Delivery Method 12/17/23 03:50 12/17/23 03:55 12/17/23 04:00 Temperature 101.3 F H 101.1 F H 101.3 F H Pulse Rate 69 69 70 Respiratory Rate 16 17 16 Blood Pressure Pulse Oximetry 95 95 96 Oxygen Delivery Method 12/17/23 04:00 12/17/23 04:00 12/17/23 04:05 Temperature 101.3 F H Pulse Rate 69 Respiratory Rate 16 Blood Pressure 113/75 Pulse Oximetry 96 Oxygen Delivery Method Mechanical Ventilation 12/17/23 04:10 12/17/23 04:15 12/17/23 04:20 Temperature 100.9 F H 101.1 F H 101.3 F H Pulse Rate 69 69 69 Respiratory Rate 16 16 16 Blood Pressure Pulse Oximetry 96 95 95 Oxygen Delivery Method 12/17/23 04:25 12/17/23 04:30 12/17/23 04:30 Temperature 101.1 F H 101.1 F H Pulse Rate 69 69 Respiratory Rate 16 16 Blood Pressure 110/68 Pulse Oximetry 95 95 Oxygen Delivery Method 12/17/23 04:35 12/17/23 04:40 12/17/23 04:45 Temperature 101.1 F H 101.1 F H 100.8 F H Pulse Rate 68 69 69 Respiratory Rate 16 16 16 Blood Pressure Pulse Oximetry 95 95 95 Oxygen Delivery Method 12/17/23 04:50 12/17/23 04:55 12/17/23 05:00 Temperature 101.1 F H 101.1 F H 101.1 F H Pulse Rate 69 70 69 Respiratory Rate 16 16 16 Blood Pressure Pulse Oximetry 95 95 95 Oxygen Delivery Method 12/17/23 05:00 12/17/23 05:05 12/17/23 05:10 Temperature 100.9 F H 101.3 F H Pulse Rate 69 69 Respiratory Rate 16 16 Blood Pressure 110/67 Pulse Oximetry 95 96 Oxygen Delivery Method 12/17/23 05:15 12/17/23 05:20 12/17/23 05:25 Temperature 101.3 F H 101.3 F H 101.3 F H Pulse Rate 68 69 69 Respiratory Rate 16 16 16 Blood Pressure Pulse Oximetry 95 95 95 Oxygen Delivery Method 12/17/23 05:30 12/17/23 05:30 12/17/23 05:35 Temperature 101.3 F H 101.1 F H Pulse Rate 70 75 Respiratory Rate 17 17 Blood Pressure 109/67 Pulse Oximetry 95 95 Oxygen Delivery Method 12/17/23 05:40 12/17/23 05:45 12/17/23 05:50 Temperature 101.3 F H 101.1 F H 101.1 F H Pulse Rate 76 76 76 Respiratory Rate 17 18 17 Blood Pressure Pulse Oximetry 95 94 95 Oxygen Delivery Method 12/17/23 05:55 12/17/23 06:00 12/17/23 06:00 Temperature 101.1 F H 100.6 F H Pulse Rate 79 79 Respiratory Rate 17 20 Blood Pressure 86/55 L Pulse Oximetry 94 95 Oxygen Delivery Method 12/17/23 06:05 12/17/23 06:10 12/17/23 06:15 Temperature 100.8 F H 100.6 F H 100.8 F H Pulse Rate 72 77 72 Respiratory Rate 16 23 18 Blood Pressure Pulse Oximetry 94 93 90 L Oxygen Delivery Method 12/17/23 06:19 12/17/23 06:19 12/17/23 06:20 Temperature 100.8 F H 100.8 F H Pulse Rate 71 68 Respiratory Rate 16 16 Blood Pressure 115/72 Pulse Oximetry 100 100 Oxygen Delivery Method 12/17/23 06:25 12/17/23 06:30 12/17/23 06:30 Temperature 100.8 F H 100.6 F H Pulse Rate 72 76 Respiratory Rate 17 18 Blood Pressure 105/64 Pulse Oximetry 94 93 Oxygen Delivery Method 12/17/23 07:00 12/17/23 07:00 12/17/23 07:05 Temperature 100.6 F H 100.6 F H Pulse Rate 72 104 H Respiratory Rate 21 38 H Blood Pressure 125/79 Pulse Oximetry 97 78 L Oxygen Delivery Method 12/17/23 07:10 12/17/23 07:15 12/17/23 07:20 Temperature 100.4 F H 100.6 F H 100.6 F H Pulse Rate 74 75 77 Respiratory Rate 24 23 23 Blood Pressure Pulse Oximetry 100 93 94 Oxygen Delivery Method 12/17/23 07:25 12/17/23 07:30 12/17/23 07:30 Temperature 100.4 F H 100.4 F H Pulse Rate 74 72 Respiratory Rate 25 H 25 H Blood Pressure 113/69 Pulse Oximetry 89 L 99 Oxygen Delivery Method 12/17/23 07:53 Temperature Pulse Rate Respiratory Rate Blood Pressure Pulse Oximetry Oxygen Delivery Method Mechanical Ventilation Fraction of Inspired Oxygen 30 Oxygen Delivery Method Mechanical Ventilation Oxygen Flow Rate 98 Narrative Exam Narrative: Intubated and sedated. Lungs clear with symmetric BS, more scattered coarse sounds bilaterally today. CV regular, no murmur. Abdomen flat and soft. No leg edema. No movements. No skin rash. Objective Labs 12/17/23 04:45 12/17/23 04:45 Labs: Laboratory Results - last 24 hr 12/14/23 12/14/23 12/16/23 10:26 14:35 03:40 WBC RBC Hgb Hct MCV MCH MCHC RDW Plt Count Neut % (Auto) Lymph % (Auto) [place] % (Auto) Eos % (Auto) Baso % (Auto) Neut # (Auto) Lymph # (Auto) [place] # (Auto) Eos # (Auto) Baso # (Auto) Sample Site ABG Sample Site Right brachial Left radial ABG pH ABG pCO2 ABG pO2 ABG HCO3 ABG Total CO2 ABG O2 Saturation ABG Base Excess FiO2 Sodium Potassium Chloride Carbon Dioxide BUN Creatinine Estimated GFR BUN/Creatinine Ratio Glucose Calcium Magnesium Vancomycin Peak 20.0 12/16/23 12/16/23 12/16/23 08:08 10:11 12:05 WBC RBC Hgb Hct MCV MCH MCHC RDW Plt Count Neut % (Auto) Lymph % (Auto) [place] % (Auto) Eos % (Auto) Baso % (Auto) Neut # (Auto) Lymph # (Auto) [place] # (Auto) Eos # (Auto) Baso # (Auto) Sample Site Art line ABG Sample Site Other site ABG pH 7.48 H ABG pCO2 42.5 ABG pO2 96 ABG HCO3 31 H ABG Total CO2 33 H ABG O2 Saturation 98 ABG Base Excess 8.0 H FiO2 30 Sodium 123 L 123 L Potassium 3.8 3.9 Chloride 87 L 87 L Carbon Dioxide 33 H 33 H BUN 20 23 H Creatinine 0.51 L 0.56 L Estimated GFR > 60 > 60 BUN/Creatinine Ratio 39.2 H 41.1 H Glucose 169 H 145 H Calcium 7.7 L 7.9 L Magnesium Vancomycin Peak 12/16/23 12/16/23 12/17/23 16:11 20:00 04:45 WBC 13.4 H RBC 3.19 L Hgb 8.5 L Hct 26.1 L MCV 81.7 MCH 26.7 MCHC 32.6 RDW 15.5 H Plt Count 399 Neut % (Auto) 85.3 H Lymph % (Auto) 6.1 L [place] % (Auto) 8.5 Eos % (Auto) 0.0 L Baso % (Auto) 0.1 Neut # (Auto) 06733 H Lymph # (Auto) 800 L [place] # (Auto) 1100 H Eos # (Auto) 0 Baso # (Auto) 0 Sample Site ABG Sample Site ABG pH ABG pCO2 ABG pO2 ABG HCO3 ABG Total CO2 ABG O2 Saturation ABG Base Excess FiO2 Sodium 129 L 130 L 132 L Potassium 3.7 3.6 3.5 Chloride 91 L 92 L 95 L Carbon Dioxide 35 H 35 H 34 H BUN 24 H 25 H 28 H Creatinine 0.55 L 0.53 L 0.43 L Estimated GFR > 60 > 60 > 60 BUN/Creatinine Ratio 43.6 H 47.2 H 65.1 H Glucose 146 H 170 H 155 H Calcium 8.1 L 7.9 L 7.7 L Magnesium 1.9 Vancomycin Peak 12/17/23 07:37 WBC RBC Hgb Hct MCV MCH MCHC RDW Plt Count Neut % (Auto) Lymph % (Auto) [place] % (Auto) Eos % (Auto) Baso % (Auto) Neut # (Auto) Lymph # (Auto) [place] # (Auto) Eos # (Auto) Baso # (Auto) Sample Site [place]ora ABG Sample Site Left radial ABG pH 7.42 ABG pCO2 48.7 H ABG pO2 72 L ABG HCO3 32 H ABG Total CO2 33 H ABG O2 Saturation 94 L ABG Base Excess 7.0 H FiO2 40 Sodium Potassium Chloride Carbon Dioxide BUN Creatinine Estimated GFR BUN/Creatinine Ratio Glucose Calcium Magnesium Vancomycin Peak PFSH Medical History Tracheostomy in place Sepsis Muscle pain Foot pain Ankle pain Chronic back pain Acid reflux Tobacco use disorder, moderate, in early remission Hypertension Ankylosing spondylitis Alcohol abuse Ankylosing spondylitis (1985) GERD (gastroesophageal reflux disease) Hypertension Fracture cervical vertebra-closed Surgical History Status post incision and drainage History of open reduction and internal fixation (ORIF) procedure (2005) Status post colonoscopy (2012) History of tonsillectomy Family History Father No problems noted. Mother Cancer Other Alcoholism Colorectal cancer Social History household members: family Smoking Status: Current every day smoker Assessment & Plan Assessment & Plan narrative: 1. Acute hypoxemic respiratory failure, POA and improving. -secondary to aspiration pneumonia, sepsis -intubated on admit, tube exchanged 12/15. -past H/O tracheostomy -cont Vanc/cefepime (5 to 7 days). -replaced ET tube 12/15 due to cuff leak -coarse sounds today. 2. Septic shock, POA and improving. -cont pressor support, maintain MAP > 65 -PCR + adenovirus, + entero/rhino, +nasal MRSA -blood cultures neg so far -Vanc/cefepime -stress dose steroids (3-5 days) -on low dose norepinephrine. 3. Acute metabolic encephalopathy, POA and active. -secondary to opiod o.d., sepsis, hyponatremia -tox screen + methamphetamines. -on propofol and fentanyl drip - will switch to Precedex and taper off propofol if possible -RASS goal -1 to 0 4. Acute hyponatremia, POA and improving. -likely SIADH -urine Na 66, urine osm pending -will start NaCl PO today. 5. Severe protein calorie malnutrition, POA and active. 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 Hypomagnesemia, hypokalemia, POA and improving. - MgSO4, K-riders -recheck daily 7. DM 2, POA and active. -cont SC insulin. - Goal BS < 180 Plan: -repeat CXR and ABG -cont antibiotics -wean FiO2 as able -daily sedation vacation -daily SBT -cont nutritional support with enteral feedings. Spent 35 minutes of critical care time. The patient remains on the vent and pressors for septic shock and is at a high risk for adverse clinical outcomes. 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
[2023-12-17] MEDS: CEFEPIME 2 GM in SODIUM CHLORIDE 0.9% 100 ML IV (08:27)
[2023-12-17] MEDS: PANTOPRAZOLE 40 MG VIAL IV ×2 (08:28→20:36)
[2023-12-17] MEDS: HEPARIN 5,000 UNIT/ML VIAL 5000 UNIT SUBCUT ×2 (08:28→20:37)
[2023-12-17] MEDS: ACETAMINOPHEN 325 MG TABLET 650 MG PO (08:32)
[2023-12-17] MEDS: VANCOMYCIN TROUGH 1 REQUEST MISC (08:45)
[2023-12-17] MEDS: SODIUM CHLORIDE 0.9% FLUSH 10 ML IV ×2 (09:26→20:36)
--- NOTE | 2023-12-17 09:43 | P.TELICUPN_ITS ---
Subjective Subjective IF CAMERA ACTIVATED, patient seen via real-time interactive audiovisual communication: Camera activated Consent obtained for tele-obstetrician and gynaecologist care: Yes Patient Location: ICU Provider location (State): [place] Other participants/roles: RN, hospitalist Interval history: Patient: 63 years old male with history of ankylosing spondylitis, h/o of tracheostomy in the past, dependence and alcohol abuse admitted 12/14/23 with PNA, septic shock, hyponatremia, and Acute respiratory failure requiring intubation. Urine Tox positive for Meth. Viral swab positive for adenovirus and rhinovirus. Patient started on cefepime and Vanco. Levophed and vasopressin started. CT head with no acute intracranial hemorrhage or mass effect. Bilateral maxillary sinus air-fluid levels consistent with intubation. Chest x- ray with diffuse bilateral pulmonary opacities suspicious for pneumonia or aspiration. 12/16: -Na trending up with after 3% NaCl 30 cc/hr x 4 hours on 12/15/23 and now with free water flushes held -Pt. switched from propofol to Dex drip and sedatives are down to Dex 0.6 and Fental 1.5. According to nurse patient will open eyes to stimuli -pressor requirements coming down -Vent currently at R 16 Vt 470 PEEP 5 and FIo2 30%, secretions are minimal -patient failed SBT Recent events: -this morning patient's Pox dropped and FIO2 increased from 30 to 50% and repeat ABG looks good (7.42/48/72). -Levophed drip is at 0.03 mcg/kg/min -Na this morning is 132 -patient still febrile (Tmas this morning is 101.3) Current Medications Current Medications Medications: Home Medications albuterol 90 mcg/actuation aerosol inhaler 90 mcg inhalation PRN PRN Shortness Of Breath 12/14/23 [History Confirmed 12/14/23] Visit Medications (administered) Generic Name Dose Route Start Last Admin Trade Name Freq PRN Reason Stop Dose Admin Acetaminophen 650 mg 12/14/23 15:39 12/17/23 08:32 Acetaminophen 325 Mg Tablet PO 650 mg Q6H PRN Administration Fever/Mild Pain (1-3) Chlorhexidine Gluconate 15 ml 12/14/23 18:00 12/17/23 08:29 Chlorhexidine Gluconate 15 Ml Cup PO 15 ml Q6HR JYOTI Administration Heparin Sodium (Porcine) 5,000 unit 12/14/23 21:00 12/17/23 08:28 Heparin 5,000 Unit/Ml Vial SUBCUT 5,000 unit BID JYOTI Administration Hydrocortisone 50 mg 12/16/23 14:00 12/17/23 05:14 Hydrocortisone 100 Mg/2 Ml Vial IV 50 mg Q8H JYOTI Administration Cefepime HCl 2 gm/ Sodium 100 mls @ 200 mls/hr 12/14/23 20:00 12/17/23 09:43 Chloride IV Infused Q12H JYOTI Infusion Fentanyl 1,000 mcg/ Dextrose 250 mls @ 8.176 mls/hr 12/14/23 14:45 12/17/23 09:28 IV 1.5 mcg/kg/hr TITRATE JYOTI 17.52 mls/hr Titration Protocol 0.7 MCG/KG/HR Propofol 1,000 mg in 100 mls @ 1.402 mls/hr 12/14/23 15:45 12/17/23 09:27 Propofol IV 25 mcg/kg/min TITRATE JYOTI 7.008 mls/hr Titration Protocol 5 MCG/KG/MIN dexmedeTOMIDine in 0.9 % NaCL 400 mcg in 100 mls @ 2.336 mls/hr 12/14/23 15:45 12/17/23 05:23 Precedex IV 1.5 mcg/kg/hr TITRATE JYOTI 17.52 mls/hr Administration 0.2 MCG/KG/HR NOREPINEPHRINE BITARTRATE/D5W 4 mg in 250 mls @ 17.52 mls/hr 12/14/23 15:43 12/17/23 07:57 Levophed IV 0.03 mcg/kg/min TITRATE JYOTI 5.256 mls/hr Titration Protocol 0.1 MCG/KG/MIN Vancomycin HCl 750 mg in 150 mls @ 150 mls/hr 12/16/23 09:00 12/17/23 09:04 Vancomycin IV 150 mls/hr Q8H JYOTI Administration Pantoprazole Sodium 40 mg 12/16/23 10:00 12/17/23 08:28 Pantoprazole 40 Mg Vial IV 40 mg BID JYOTI Administration Sodium Chloride 10 ml 12/15/23 21:00 12/17/23 09:26 Sodium Chloride 0.9% Flush IV 10 ml BID JYOTI Administration Objective Ventilator Parameters: Ventilator Settings FiO2 40 RT Vent Frequency 16 Ventilator Tidal Volume 470 Exhaled Vt/kg IBW 7 Positive End Expiratory 5 Pressure Inspiratory Phase Time 0.95 I:E Ratio 1:2.9 Patient Position HOB >= 30 degrees Labs 12/17/23 04:45 12/17/23 04:45 Labs: Laboratory Results - last 24 hr 12/14/23 12/14/23 12/16/23 10:26 14:35 10:11 WBC RBC Hgb Hct MCV MCH MCHC RDW Plt Count Neut % (Auto) Lymph % (Auto) [place] % (Auto) Eos % (Auto) Baso % (Auto) Neut # (Auto) Lymph # (Auto) [place] # (Auto) Eos # (Auto) Baso # (Auto) Sample Site Art line ABG Sample Site Right brachial Left radial Other site ABG pH 7.48 H ABG pCO2 42.5 ABG pO2 96 ABG HCO3 31 H ABG Total CO2 33 H ABG O2 Saturation 98 ABG Base Excess 8.0 H FiO2 30 Sodium Potassium Chloride Carbon Dioxide BUN Creatinine Estimated GFR BUN/Creatinine Ratio Glucose Calcium Magnesium 12/16/23 12/16/23 12/16/23 12:05 16:11 20:00 WBC RBC Hgb Hct MCV MCH MCHC RDW Plt Count Neut % (Auto) Lymph % (Auto) [place] % (Auto) Eos % (Auto) Baso % (Auto) Neut # (Auto) Lymph # (Auto) [place] # (Auto) Eos # (Auto) Baso # (Auto) Sample Site ABG Sample Site ABG pH ABG pCO2 ABG pO2 ABG HCO3 ABG Total CO2 ABG O2 Saturation ABG Base Excess FiO2 Sodium 123 L 129 L 130 L Potassium 3.9 3.7 3.6 Chloride 87 L 91 L 92 L Carbon Dioxide 33 H 35 H 35 H BUN 23 H 24 H 25 H Creatinine 0.56 L 0.55 L 0.53 L Estimated GFR > 60 > 60 > 60 BUN/Creatinine Ratio 41.1 H 43.6 H 47.2 H Glucose 145 H 146 H 170 H Calcium 7.9 L 8.1 L 7.9 L Magnesium 12/17/23 12/17/23 04:45 07:37 WBC 13.4 H RBC 3.19 L Hgb 8.5 L Hct 26.1 L MCV 81.7 MCH 26.7 MCHC 32.6 RDW 15.5 H Plt Count 399 Neut % (Auto) 85.3 H Lymph % (Auto) 6.1 L [place] % (Auto) 8.5 Eos % (Auto) 0.0 L Baso % (Auto) 0.1 Neut # (Auto) 35153 H Lymph # (Auto) 800 L [place] # (Auto) 1100 H Eos # (Auto) 0 Baso # (Auto) 0 Sample Site [place] ABG Sample Site Left radial ABG pH 7.42 ABG pCO2 48.7 H ABG pO2 72 L ABG HCO3 32 H ABG Total CO2 33 H ABG O2 Saturation 94 L ABG Base Excess 7.0 H FiO2 40 Sodium 132 L Potassium 3.5 Chloride 95 L Carbon Dioxide 34 H BUN 28 H Creatinine 0.43 L Estimated GFR > 60 BUN/Creatinine Ratio 65.1 H Glucose 155 H Calcium 7.7 L Magnesium 1.9 Exam Vital Signs (past 8 hours): - 12/17/23 01:45 12/17/23 01:50 12/17/23 01:55 Temperature 101.3 F H 101.3 F H 101.3 F H Pulse Rate 71 72 71 Respiratory Rate 16 16 16 Blood Pressure Pulse Oximetry 95 95 96 Oxygen Delivery Method 12/17/23 02:00 12/17/23 02:00 12/17/23 02:05 Temperature 101.1 F H 100.9 F H Pulse Rate 72 72 Respiratory Rate 16 16 Blood Pressure 108/70 Pulse Oximetry 95 95 Oxygen Delivery Method 12/17/23 02:10 12/17/23 02:15 12/17/23 02:20 Temperature 100.9 F H 101.1 F H 101.1 F H Pulse Rate 71 73 72 Respiratory Rate 16 16 16 Blood Pressure Pulse Oximetry 95 95 95 Oxygen Delivery Method 12/17/23 02:25 12/17/23 02:30 12/17/23 02:30 Temperature 101.3 F H 101.3 F H Pulse Rate 72 72 Respiratory Rate 16 16 Blood Pressure 111/73 Pulse Oximetry 95 95 Oxygen Delivery Method 12/17/23 02:35 12/17/23 02:40 12/17/23 02:45 Temperature 101.5 F H 101.5 F H 101.5 F H Pulse Rate 71 72 72 Respiratory Rate 16 16 16 Blood Pressure Pulse Oximetry 95 95 95 Oxygen Delivery Method 12/17/23 02:50 12/17/23 02:55 12/17/23 03:00 Temperature 101.5 F H 101.5 F H Pulse Rate 72 71 Respiratory Rate 16 16 Blood Pressure 114/73 Pulse Oximetry 95 95 Oxygen Delivery Method 12/17/23 03:00 12/17/23 03:05 12/17/23 03:10 Temperature 101.3 F H 101.5 F H 101.3 F H Pulse Rate 70 70 71 Respiratory Rate 16 16 16 Blood Pressure Pulse Oximetry 95 96 96 Oxygen Delivery Method 12/17/23 03:15 12/17/23 03:20 12/17/23 03:25 Temperature 101.3 F H 101.5 F H 101.3 F H Pulse Rate 71 71 71 Respiratory Rate 16 16 16 Blood Pressure Pulse Oximetry 95 96 96 Oxygen Delivery Method 12/17/23 03:30 12/17/23 03:30 12/17/23 03:35 Temperature 101.3 F H 100.9 F H Pulse Rate 70 70 Respiratory Rate 16 16 Blood Pressure 112/72 Pulse Oximetry 95 95 Oxygen Delivery Method 12/17/23 03:40 12/17/23 03:45 12/17/23 03:50 Temperature 100.9 F H 101.3 F H 101.3 F H Pulse Rate 69 70 69 Respiratory Rate 16 16 16 Blood Pressure Pulse Oximetry 95 95 95 Oxygen Delivery Method 12/17/23 03:55 12/17/23 04:00 12/17/23 04:00 Temperature 101.1 F H 101.3 F H Pulse Rate 69 70 Respiratory Rate 17 16 Blood Pressure 113/75 Pulse Oximetry 95 96 Oxygen Delivery Method 12/17/23 04:00 12/17/23 04:05 12/17/23 04:10 Temperature 101.3 F H 100.9 F H Pulse Rate 69 69 Respiratory Rate 16 16 Blood Pressure Pulse Oximetry 96 96 Oxygen Delivery Method Mechanical Ventilation 12/17/23 04:15 12/17/23 04:20 12/17/23 04:25 Temperature 101.1 F H 101.3 F H 101.1 F H Pulse Rate 69 69 69 Respiratory Rate 16 16 16 Blood Pressure Pulse Oximetry 95 95 95 Oxygen Delivery Method 12/17/23 04:30 12/17/23 04:30 12/17/23 04:35 Temperature 101.1 F H 101.1 F H Pulse Rate 69 68 Respiratory Rate 16 16 Blood Pressure 110/68 Pulse Oximetry 95 95 Oxygen Delivery Method 12/17/23 04:40 12/17/23 04:45 12/17/23 04:50 Temperature 101.1 F H 100.8 F H 101.1 F H Pulse Rate 69 69 69 Respiratory Rate 16 16 16 Blood Pressure Pulse Oximetry 95 95 95 Oxygen Delivery Method 12/17/23 04:55 12/17/23 05:00 12/17/23 05:00 Temperature 101.1 F H 101.1 F H Pulse Rate 70 69 Respiratory Rate 16 16 Blood Pressure 110/67 Pulse Oximetry 95 95 Oxygen Delivery Method 12/17/23 05:05 12/17/23 05:10 12/17/23 05:15 Temperature 100.9 F H 101.3 F H 101.3 F H Pulse Rate 69 69 68 Respiratory Rate 16 16 16 Blood Pressure Pulse Oximetry 95 96 95 Oxygen Delivery Method 12/17/23 05:20 12/17/23 05:25 12/17/23 05:30 Temperature 101.3 F H 101.3 F H Pulse Rate 69 69 Respiratory Rate 16 16 Blood Pressure 109/67 Pulse Oximetry 95 95 Oxygen Delivery Method 12/17/23 05:30 12/17/23 05:35 12/17/23 05:40 Temperature 101.3 F H 101.1 F H 101.3 F H Pulse Rate 70 75 76 Respiratory Rate 17 17 17 Blood Pressure Pulse Oximetry 95 95 95 Oxygen Delivery Method 12/17/23 05:45 12/17/23 05:50 12/17/23 05:55 Temperature 101.1 F H 101.1 F H 101.1 F H Pulse Rate 76 76 79 Respiratory Rate 18 17 17 Blood Pressure Pulse Oximetry 94 95 94 Oxygen Delivery Method 12/17/23 06:00 12/17/23 06:00 12/17/23 06:05 Temperature 100.6 F H 100.8 F H Pulse Rate 79 72 Respiratory Rate 20 16 Blood Pressure 86/55 L Pulse Oximetry 95 94 Oxygen Delivery Method 12/17/23 06:10 12/17/23 06:15 12/17/23 06:19 Temperature 100.6 F H 100.8 F H 100.8 F H Pulse Rate 77 72 71 Respiratory Rate 23 18 16 Blood Pressure Pulse Oximetry 93 90 L 100 Oxygen Delivery Method 12/17/23 06:19 12/17/23 06:20 12/17/23 06:25 Temperature 100.8 F H 100.8 F H Pulse Rate 68 72 Respiratory Rate 16 17 Blood Pressure 115/72 Pulse Oximetry 100 94 Oxygen Delivery Method 12/17/23 06:30 12/17/23 06:30 12/17/23 07:00 Temperature 100.6 F H 100.6 F H Pulse Rate 76 72 Respiratory Rate 18 21 Blood Pressure 105/64 Pulse Oximetry 93 97 Oxygen Delivery Method 12/17/23 07:00 12/17/23 07:05 12/17/23 07:10 Temperature 100.6 F H 100.4 F H Pulse Rate 104 H 74 Respiratory Rate 38 H 24 Blood Pressure 125/79 Pulse Oximetry 78 L 100 Oxygen Delivery Method 12/17/23 07:15 12/17/23 07:20 12/17/23 07:25 Temperature 100.6 F H 100.6 F H 100.4 F H Pulse Rate 75 77 74 Respiratory Rate 23 23 25 H Blood Pressure Pulse Oximetry 93 94 89 L Oxygen Delivery Method 12/17/23 07:30 12/17/23 07:30 12/17/23 07:35 Temperature 100.4 F H 100.4 F H Pulse Rate 72 75 Respiratory Rate 25 H 23 Blood Pressure 113/69 Pulse Oximetry 99 95 Oxygen Delivery Method 12/17/23 07:40 12/17/23 07:45 12/17/23 07:50 Temperature 100.4 F H 100.4 F H 100.4 F H Pulse Rate 70 70 69 Respiratory Rate 23 20 22 Blood Pressure Pulse Oximetry 99 97 98 Oxygen Delivery Method 12/17/23 07:53 12/17/23 07:55 12/17/23 08:00 Temperature 100.4 F H Pulse Rate 68 Respiratory Rate 20 Blood Pressure 123/80 Pulse Oximetry 98 Oxygen Delivery Method Mechanical Ventilation 12/17/23 08:00 12/17/23 08:32 Temperature 100.4 F H 100.6 F H Pulse Rate 71 Respiratory Rate 21 Blood Pressure Pulse Oximetry 98 Oxygen Delivery Method Fraction of Inspired Oxygen 30 Oxygen Delivery Method Mechanical Ventilation Oxygen Flow Rate 98 Narrative Exam Narrative: patient seen to be resting comfortably over 2 way audio visual system Quality TeleICU VTE Deep Vein Thrombosis/Pulmonary Embolism Present on Admission: No Assessment & Plan Assessment & Plan narrative: Assessment PNA Acute respiratory failure requiring intubation Septic Shock Hyponatremia polysubstance abuse- ETOH, meth, opiates still febrile 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 Na trending up too fast (ideally should be < 8 mEq/24 hours) -start free water flushes of 100 cc q2H -if Na continues to over correct will start D5W and consider DDAVP Endo: continue stress dose steroids hydrocortisone 50 mg TID PPx: protonix and SQ heparin Code status FULL Code CCT spent 55 min
[2023-12-17] MEDS: POTASSIUM CHLORIDE IN WATER 10 MEQ/100 ML PIGGYBACK 100 MEQ IV ×4 (10:02→21:09)
--- NOTE | 2023-12-17 10:05 | CM.DPNOTE ---
Addendum entered by VARGAS Curran 12/17/23 15:37: Per RN, pt briefly waking up from sedation. Pt communicated to nursing staff he would like Yifan to be POA. Addendum entered by Noemi Heath, REGULATOR TESTER 12/17/23 14:58: REGULATOR TESTER met with family friend Shawn (p [phone]) outside of room. Shawn reports he would tell pt's Dtr Radha to call us back about POA paperwork. Shawn reports he's neighbors with pt and would look in pt's home for his POA pwk among his things. REGULATOR TESTER had lengthy phone conversation with dtr Radha (p [phone] or email [email or web address]). Radha does not remember becoming POA/does not believe she has POA paperwork. However, Radha is willing to assist in being point of contact for family and to help make decisions for pt. Dtr reports she has never been close with pt and would rely on family input for medical decisions anyway. Radha identified Yifan (son), Mercedes (ex-), Lizeth (niece), Sanya (nephew?), and Suki (sister) as folks okay with having pt's medical information. Radha asked medical questions this REGULATOR TESTER was not qualified to answer and transferred her to nursing staff. SL Original Note: DCP Note REGULATOR TESTER reviewed EMR. Per provider in morning rounds, anticipate another 2-3 days on the vent. Per nursing staff, family did not drop off POA paperwork last night like anticipated. Plan: CM team to follow closely/coordinate with family for further discharge planning discussions. CM team will continue to follow closely for either finding established POA pwk or assist pt and family in the creation of new/updated POA pwk. CM team will follow closely for dcp needs as medical POC unfolds. VARGAS Curran
[2023-12-17 10:19] LABS: Vancomycin Trough 13.6 ug/mL (10-20)
[2023-12-17] MEDS: dexmedeTOMIDine in 0.9 % NaCL 400 MCG/100 ML PLAST..BAG 14.016 MCG IV (10:54)
[2023-12-17 10:57] LABS: Urine Volume 10mL (spun)
[2023-12-17 11:07] LABS: Appearance Urine UA CLEAR; Bilirubin Urine UA NEGATIVE (NEGATIVE); Color Urine UA YELLOW; Glucose Urine UA NEGATIVE (Negative); Ketones Urine UA NEGATIVE (NEGATIVE); Leukocyte Esterase Urine UA NEGATIVE (NEGATIVE); Nitrite Urine UA NEGATIVE (Negative); Occult Blood Urine UA NEGATIVE (Negative); Protein Urine UA TRACE (Negative); Urobilinogen Urine UA 0.2 E.U./dL (0.2)
[2023-12-17 11:21] LABS: Bacteria Urine None Seen; Culture Indicated Urine Cult Not Indicated; RBC Urine None Seen (0-5/HPF); Squamous Epithelial Cell Urine None Seen (0-5/HPF); WBC Urine None Seen (0-5/HPF)
[2023-12-17 11:24] LABS: BUN Creatinine Ratio 86.5 (6-22); Blood Urea Nitrogen 32 mg/dL (9-20); Calcium 7.7 mg/dL (8.4-10.2); Carbon Dioxide 30 mmol/L (22-32); Chloride 96 mmol/L (98-107); Estimated Glomerular Filt Rate > 60 mL/min (>60); Glucose 192 mg/dL (80-110); HEMOLYSIS 25 (0-50); Potassium 3.4 mmol/L (3.4-5.1); Sodium 131 mmol/L (137-145)
[2023-12-17] MEDS: MEROPENEM 2 GM in SODIUM CHLORIDE 0.9% 100 ML IV ×2 (11:40→18:29)
[2023-12-17] MEDS: VANCOMYCIN PEAK 1 REQUEST MISC (11:49)
--- NOTE | 2023-12-17 11:51 | PC.NURSE ---
Addendum entered by Stacy Man R.N. 12/17/23 16:41: SBT performed today. Pt was awake, oriented to self, place, birthday, and age. Short term memory loss regarding situation/reason for hospitalization. Pt able to communicate via writing, pt able to shake head no that he was not in pain. After SBT bolused pt 50 mcg fentanyl over one minute at 1600. Original Note: In AM at shift change, pt desatted down to 75% with good SPO2 pleth and amplitude, day and night RNs were at bedside and pt had coarse lung sounds. RT was called to bedside. Pt was suctioned several times with 100% O2 breaths given. Pt also got hypotensive during this dyspneic episode. When RN called RT for the second time and RT was not able to come bedside immediately, RN called the RN coordinator, who told RN to increase FiO2. RN increased FiO2 from 25 to 40. RN communicated findings to hospitalist, who ordered a cxr. Pt had several similar episodes throughout the next 1-2 hours, but SPO2 did not drop into 70s because RN intervened. RN communicated to kennel helper labile SP02 and blood pressure, and kennel helper instructed to wait on SAT/SBT during am rounds. Provider ordered a sputum culture, and RN notified RT bedside about the sputum culture. RN also notified provider about pt's Core temp (from Temp [place] of 100.6) and RN administered tylenol and placed ice packs. In late morning, pt SPO2 and BP had been much more stable, RN decreased sedation to a RASS of 0 and pt was able to give thumbs up bilaterally, squeeze hands, blink to command, open eyes to command, and wiggle feet. RN communicated to RT that pt met SAT criteria per protocol and RT could do SBT. RT was uncomfortable doing SBT due to pt overbreathing the vent and told RN sedation should be increased. RN communicated to tele-ICU RT's assessment and RR (at the time 19-20). Tele ICU provider recommended SAT/SBT later in the day if pt remained hemodynamically stable/stable SPO2. Pt BP maintained MAP >65, SBP >90 with norepinephrine, RN paused norempinephrine and pt BP dropped MAP <65 within a few minutes. Norepinephrine was turned back on to maintain MAP >65.
--- NOTE | 2023-12-17 15:56 | DIET.PN1 ---
Addendum entered by Erica Almeida 12/17/23 16:10: changed diet order to glucerna 1.5 at 40 mls. System only had 1.2 available to choose, but 1.5 is in stock. Kitchen will bring up today. Original Note: Dietary Progress Note Assessment: Recent blood glucose elevated. Rec switch to lower carb formula. B, 146, 170, 155, 192H Rec BG goal <180mg/dl. Ht: 172.72 cm Wt: 48.5 kg BMI: 15.6 Last BM: () MNA: Inder Score: 12 Diet: 12/17/23 Breakfast Tube Feeding Diet Diet Modifications: TF Supplement type: Pivot 1.5 TF mode of delivery: Continuous Starting flow rate mL/hr: 40 Flow rate goal mL/hr: 40 Titration Schedule to reach Goal Rate: none Max total daily volume in mL: 480 Free fluid: 100 Free Water Frequency: Q2H Nutrition Type of Feeding Tube NG/OG 12/17/23 09:04 Type of Feeding Tube NG/OG 12/16/23 23:21 Type of Feeding Tube NG/OG 12/16/23 16:19 Type of Feeding Tube NG/OG 12/16/23 11:38 Labs: RBC 3.19 X10^6/uL (4.5-5.9) L 12/17/23 04:45 Hgb 8.5 g/dL (13.5-17.5) L 12/17/23 04:45 Hct 26.1 % (41-53) L 12/17/23 04:45 Creatinine 0.37 mg/dL (0.66-1.25) L 12/17/23 08:55 Lactate 0.9 mmol/L (0.7-2.1) 12/14/23 12:02 NT-Pro-B Natriuret Pep 8410 pg/mL (<125) H 12/14/23 10:03 Nutrition Diagnosis: Severe Acute on Chronic Protein Calorie Malnutrition r/t grief, difficulty managing self care aeb BMI 15 (severe), pt with + UA for methamphetamine, pt severe weight loss corresponds to of spouse, pt intubated and sedated requiring nutrition support. Altered nutrition lab r/t endocrine dysfunction and excessive glucose aeb hyperglycemia >180mg/dl with Pivot formula Interventions: 1. Recc advancing pt to 40mL continuous enteral feeding via OG of formula Glucerna 1.5. Threading Machine Feeder Automatic to manage free water due to hyponatremia. Goal feed provides: 1484 kcals (32kcal/kg), 90g PRO (1.9g/kg), 128g CHO, 729mL feed water. Recc 60mL free water q8h to keep tubes patent. 2. Threading Machine Feeder Automatic to monitor fluid needs. 3. HOB >30 degrees at all time. Monitoring/Evaluations: following daily and will modify plan once pt transitions to PO intake. Electronically Signed by: Erica Almeida 12/17/23 15:56 Clinical Dietitian [address] [address]
[2023-12-17] MEDS: AZITHROMYCIN 500 MG in DEXTROSE 5% IN WATER 250 ML 250 MG IV (16:06)
[2023-12-17 16:14] LABS: Osmolality Urine 367 mOsmol/kg (.)
[2023-12-17 18:23] LABS: BUN Creatinine Ratio 87.5 (6-22); Blood Urea Nitrogen 28 mg/dL (9-20); Calcium 7.6 mg/dL (8.4-10.2); Carbon Dioxide 31 mmol/L (22-32); Chloride 95 mmol/L (98-107); Estimated Glomerular Filt Rate > 60 mL/min (>60); Glucose 190 mg/dL (80-110); HEMOLYSIS < 15 (0-50); Potassium 3.4 mmol/L (3.4-5.1); Sodium 130 mmol/L (137-145)
--- NOTE | 2023-12-17 18:46 | PC.NURSE ---
unable to do a proper weight due to pt care has important stuff in the bed. Pt weight built in bed is 51kg and subtract all the things does not needed its 45kg.
--- NOTE | 2023-12-17 20:15 | P.ICUMDRN_ITS ---
- Date Patient Seen: 12/17/23 :: This patient was seen via real time interactive two-way audiovisual telecommunic ation. Note: Remains intubated and sedated. Na 130. Cont weaning down sedation and check daily SBT. D/w bedside RN.
[2023-12-17] MEDS: dexmedeTOMIDine in 0.9 % NaCL 400 MCG/100 ML PLAST..BAG 15.184 MCG IV (23:46)
[2023-12-18] VITALS (224 sets, daily range): BP systolic 75–135; BP diastolic 49–76; PULSE 51–156; RESP 16–76; TEMP 36.2–37.3; O2SAT 86–100
[2023-12-18 00:15] LABS: Sodium 127 mmol/L (137-145)
[2023-12-18] MEDS: VANCOMYCIN 750 MG/150 ML PIGGYBACK 150 MG IV ×3 (00:24→17:31)
[2023-12-18] MEDS: MEROPENEM 2 GM in SODIUM CHLORIDE 0.9% 100 ML IV ×3 (01:37→18:44)
[2023-12-18] MEDS: propofoL 1,000 MG/100 ML VIAL 7.008 MG IV ×2 (04:04→16:27)
[2023-12-18] MEDS: NOREPINEPHRINE BITARTRATE/D5W 4 MG/250 ML PLAST..BAG 4.38 MG IV (04:56)
[2023-12-18] MEDS: HYDROCORTISONE 100 MG/2 ML VIAL 50 MG IV (05:10)
[2023-12-18] MEDS: CHLORHEXIDINE GLUCONATE 15 ML CUP PO ×3 (05:11→17:30)
[2023-12-18 05:35] LABS: Add Manual Diff / Slide Review NO; Basophils Absolute Auto 0 /uL (0-100); Basophils Percent Auto 0.3 % (0-2); Eosinophils Absolute Auto 0 /uL (0-450); Eosinophils Percent Auto 0.1 % (2-4); Hematocrit 26.2 % (41-53); Hemoglobin 8.6 g/dL (13.5-17.5); Lymphocytes Absolute Auto 1000 /uL (1100-4500); Lymphocytes Percent Auto 8.1 % (25-40); Mean Corpuscular HGB Conc 32.9 % (30-36); Mean Corpuscular Hemoglobin 26.9 PG (26-34); Mean Corpuscular Volume 81.9 fL (80-100); Monocytes Absolute Auto 1100 /uL (0-900); Monocytes Percent Auto 9.2 % (3-14); Neutrophils Absolute Auto 10000 /uL (1500-7000); Neutrophils Percent Auto 82.3 % (50-75); Platelet Count 397 X10^3/uL (150-400); Red Blood Cell Count 3.19 X10^6/uL (4.5-5.9); Red Cell Distribution Width 15.4 % (11.6-14.8); White Blood Cell Count 12.2 X10^3/uL (4.5-11.0)
[2023-12-18 05:55] LABS: BUN Creatinine Ratio 72.2 (6-22); Blood Urea Nitrogen 26 mg/dL (9-20); Calcium 7.9 mg/dL (8.4-10.2); Carbon Dioxide 33 mmol/L (22-32); Chloride 95 mmol/L (98-107); Estimated Glomerular Filt Rate > 60 mL/min (>60); Glucose 134 mg/dL (80-110); HEMOLYSIS < 15 (0-50); Potassium 3.5 mmol/L (3.4-5.1); Sodium 130 mmol/L (137-145)
[2023-12-18] MEDS: dexmedeTOMIDine in 0.9 % NaCL 400 MCG/100 ML PLAST..BAG 15.184 MCG IV ×2 (06:05→16:27)
--- NOTE | 2023-12-18 07:51 | PM.PN.1 ---
Subjective Subjective Interval history: Patient remains intubated and sedated this morning. Narrative is not obtainable. Patient did well with sedation lightening yesterday, was able to communicate and follow commands. His spontaneous breathing trial was improved yesterday over the day before. Exam Vital Signs (past 8 hours): - 12/17/23 23:55 12/18/23 00:00 12/18/23 00:00 Temperature 98.6 F 98.6 F Pulse Rate 60 61 Respiratory Rate 17 17 Blood Pressure 109/68 Pulse Oximetry 93 94 Oxygen Delivery Method 12/18/23 00:05 12/18/23 00:10 12/18/23 00:15 Temperature 98.6 F 98.6 F 98.8 F Pulse Rate 63 63 62 Respiratory Rate 18 17 16 Blood Pressure Pulse Oximetry 93 93 94 Oxygen Delivery Method 12/18/23 00:20 12/18/23 00:25 12/18/23 00:30 Temperature 98.8 F 98.8 F 98.8 F Pulse Rate 61 63 62 Respiratory Rate 17 16 17 Blood Pressure Pulse Oximetry 94 94 94 Oxygen Delivery Method 12/18/23 00:35 12/18/23 00:40 12/18/23 00:45 Temperature 98.8 F 98.8 F 98.8 F Pulse Rate 64 60 63 Respiratory Rate 16 20 19 Blood Pressure Pulse Oximetry 94 94 94 Oxygen Delivery Method 12/18/23 00:50 12/18/23 00:55 12/18/23 01:00 Temperature 98.8 F 98.8 F 98.8 F Pulse Rate 63 60 61 Respiratory Rate 17 17 19 Blood Pressure Pulse Oximetry 95 95 95 Oxygen Delivery Method 12/18/23 01:00 12/18/23 01:05 12/18/23 01:10 Temperature 98.8 F 98.8 F Pulse Rate 61 63 Respiratory Rate 21 17 Blood Pressure 110/73 Pulse Oximetry 95 95 Oxygen Delivery Method 12/18/23 01:15 12/18/23 01:20 12/18/23 01:25 Temperature 98.8 F 98.8 F 98.8 F Pulse Rate 72 67 60 Respiratory Rate 40 H 26 H 19 Blood Pressure Pulse Oximetry 94 91 94 Oxygen Delivery Method 12/18/23 01:30 12/18/23 01:35 12/18/23 01:40 Temperature 98.8 F 98.8 F 98.8 F Pulse Rate 60 61 62 Respiratory Rate 19 17 18 Blood Pressure Pulse Oximetry 95 95 95 Oxygen Delivery Method 12/18/23 01:45 12/18/23 01:50 12/18/23 01:55 Temperature 99.0 F 99.0 F 99.0 F Pulse Rate 61 72 61 Respiratory Rate 18 20 17 Blood Pressure Pulse Oximetry 95 96 93 Oxygen Delivery Method 12/18/23 02:00 12/18/23 02:00 12/18/23 02:05 Temperature 99.0 F 99.0 F Pulse Rate 62 61 Respiratory Rate 17 18 Blood Pressure 102/64 Pulse Oximetry 94 95 Oxygen Delivery Method 12/18/23 02:10 12/18/23 02:15 12/18/23 02:20 Temperature 98.8 F 99.0 F 98.8 F Pulse Rate 63 61 61 Respiratory Rate 22 17 16 Blood Pressure Pulse Oximetry 95 95 95 Oxygen Delivery Method 12/18/23 02:25 12/18/23 02:30 12/18/23 02:35 Temperature 99.0 F 99.0 F 99.0 F Pulse Rate 59 L 61 60 Respiratory Rate 16 16 16 Blood Pressure Pulse Oximetry 95 95 95 Oxygen Delivery Method 12/18/23 02:40 12/18/23 02:45 12/18/23 02:50 Temperature 99.0 F 99.0 F 99.0 F Pulse Rate 61 62 62 Respiratory Rate 16 16 16 Blood Pressure Pulse Oximetry 95 95 93 Oxygen Delivery Method 12/18/23 02:55 12/18/23 03:00 12/18/23 03:00 Temperature 98.8 F 98.8 F Pulse Rate 59 L 59 L Respiratory Rate 16 16 Blood Pressure 100/70 Pulse Oximetry 93 94 Oxygen Delivery Method 12/18/23 03:00 12/18/23 03:05 12/18/23 03:10 Temperature 98.8 F 99.0 F Pulse Rate 59 L 59 L Respiratory Rate 16 17 Blood Pressure Pulse Oximetry 94 95 Oxygen Delivery Method Mechanical Ventilation 12/18/23 03:15 12/18/23 03:20 12/18/23 03:25 Temperature 99.0 F 99.0 F 99.0 F Pulse Rate 59 L 59 L 57 L Respiratory Rate 17 16 17 Blood Pressure Pulse Oximetry 95 95 95 Oxygen Delivery Method 12/18/23 03:30 12/18/23 03:35 12/18/23 03:40 Temperature 99.0 F 99.0 F 99.0 F Pulse Rate 58 L 58 L 58 L Respiratory Rate 16 16 17 Blood Pressure Pulse Oximetry 95 94 95 Oxygen Delivery Method 12/18/23 03:45 12/18/23 03:50 12/18/23 03:55 Temperature 98.8 F 98.8 F 98.8 F Pulse Rate 58 L 60 59 L Respiratory Rate 16 17 16 Blood Pressure Pulse Oximetry 95 94 95 Oxygen Delivery Method 12/18/23 04:00 12/18/23 04:00 12/18/23 04:05 Temperature 98.8 F 98.8 F Pulse Rate 60 59 L Respiratory Rate 16 16 Blood Pressure 110/69 Pulse Oximetry 95 95 Oxygen Delivery Method 12/18/23 04:10 12/18/23 04:15 12/18/23 04:20 Temperature 98.8 F 98.8 F 98.8 F Pulse Rate 59 L 67 60 Respiratory Rate 16 28 H 16 Blood Pressure Pulse Oximetry 95 93 91 Oxygen Delivery Method 12/18/23 04:25 12/18/23 04:30 12/18/23 04:35 Temperature 98.6 F 98.8 F 98.8 F Pulse Rate 59 L 58 L 57 L Respiratory Rate 16 18 17 Blood Pressure Pulse Oximetry 92 93 94 Oxygen Delivery Method 12/18/23 04:40 12/18/23 04:45 12/18/23 04:50 Temperature 98.8 F 98.8 F 98.8 F Pulse Rate 58 L 58 L 58 L Respiratory Rate 17 17 16 Blood Pressure Pulse Oximetry 94 94 95 Oxygen Delivery Method 12/18/23 04:55 12/18/23 05:00 12/18/23 05:00 Temperature 98.8 F 98.8 F Pulse Rate 59 L 57 L Respiratory Rate 17 16 Blood Pressure 107/69 Pulse Oximetry 94 95 Oxygen Delivery Method 12/18/23 05:05 12/18/23 05:10 12/18/23 05:15 Temperature 98.8 F 98.8 F 98.8 F Pulse Rate 58 L 58 L 56 L Respiratory Rate 16 17 17 Blood Pressure Pulse Oximetry 94 94 94 Oxygen Delivery Method 12/18/23 05:20 12/18/23 05:25 12/18/23 05:30 Temperature 98.8 F 99.0 F 98.8 F Pulse Rate 56 L 57 L 57 L Respiratory Rate 17 17 16 Blood Pressure Pulse Oximetry 95 94 94 Oxygen Delivery Method 12/18/23 05:35 12/18/23 05:40 12/18/23 05:45 Temperature 99.0 F 99.0 F 99.0 F Pulse Rate 56 L 57 L 57 L Respiratory Rate 16 17 16 Blood Pressure Pulse Oximetry 95 95 94 Oxygen Delivery Method 12/18/23 05:50 12/18/23 05:55 12/18/23 06:00 Temperature 99.0 F 99.0 F 98.8 F Pulse Rate 59 L 57 L 57 L Respiratory Rate 29 H 16 16 Blood Pressure Pulse Oximetry 95 92 93 Oxygen Delivery Method 12/18/23 06:00 12/18/23 06:05 12/18/23 06:10 Temperature 98.8 F 98.8 F Pulse Rate 57 L 57 L Respiratory Rate 16 16 Blood Pressure 107/66 Pulse Oximetry 94 94 Oxygen Delivery Method 12/18/23 06:15 12/18/23 06:20 12/18/23 06:25 Temperature 98.8 F 98.8 F 98.8 F Pulse Rate 56 L 57 L 57 L Respiratory Rate 16 16 16 Blood Pressure Pulse Oximetry 94 94 94 Oxygen Delivery Method 12/18/23 06:30 12/18/23 06:35 12/18/23 06:40 Temperature 98.8 F 98.8 F 98.8 F Pulse Rate 57 L 57 L 57 L Respiratory Rate 16 16 16 Blood Pressure Pulse Oximetry 95 95 95 Oxygen Delivery Method 12/18/23 06:45 12/18/23 06:50 12/18/23 06:55 Temperature 98.8 F 98.8 F 98.8 F Pulse Rate 56 L 57 L 55 L Respiratory Rate 16 16 16 Blood Pressure Pulse Oximetry 95 95 95 Oxygen Delivery Method 12/18/23 07:00 12/18/23 07:00 12/18/23 07:05 Temperature 98.8 F 98.8 F Pulse Rate 56 L 55 L Respiratory Rate 16 16 Blood Pressure 112/67 Pulse Oximetry 95 95 Oxygen Delivery Method 12/18/23 07:10 12/18/23 07:15 12/18/23 07:20 Temperature 98.8 F 98.6 F 98.6 F Pulse Rate 56 L 56 L 56 L Respiratory Rate 16 16 16 Blood Pressure Pulse Oximetry 95 95 95 Oxygen Delivery Method Fraction of Inspired Oxygen 30 Oxygen Delivery Method Mechanical Ventilation Oxygen Flow Rate 98 Narrative Exam Narrative: Intubated and sedated. Lungs clear with symmetric BS, more scattered coarse sounds bilaterally today. CV regular, no murmur. Abdomen flat and soft. No leg edema. No movements. No skin rash. Objective Labs 12/18/23 05:20 12/18/23 05:20 Labs: Laboratory Results - last 24 hr 12/14/23 12/17/23 12/17/23 16:45 07:37 08:55 WBC RBC Hgb Hct MCV MCH MCHC RDW Plt Count Neut % (Auto) Lymph % (Auto) Mobile % (Auto) Eos % (Auto) Baso % (Auto) Neut # (Auto) Lymph # (Auto) Mobile # (Auto) Eos # (Auto) Baso # (Auto) Sample Site Lora ABG Sample Site Left radial ABG pH 7.42 ABG pCO2 48.7 H ABG pO2 72 L ABG HCO3 32 H ABG Total CO2 33 H ABG O2 Saturation 94 L ABG Base Excess 7.0 H FiO2 40 Sodium 131 L Potassium 3.4 Chloride 96 L Carbon Dioxide 30 BUN 32 H Creatinine 0.37 L Estimated GFR > 60 BUN/Creatinine Ratio 86.5 H Glucose 192 H Calcium 7.7 L Urine Color Urine Appearance Urine pH Ur Specific [place] Urine Protein Urine Glucose (UA) Urine Ketones Urine Occult Blood Urine Nitrate Urine Bilirubin Urine Urobilinogen Ur Leukocyte Esterase Urine RBC Urine WBC Ur Squamous Epith Cells Urine Bacteria Ur Culture Indicated? Vol Urine Centrifuged Urine Osmolality 367 Vancomycin Peak Vancomycin Trough 13.6 12/17/23 12/17/23 12/17/23 10:45 11:45 18:00 WBC RBC Hgb Hct MCV MCH MCHC RDW Plt Count Neut % (Auto) Lymph % (Auto) [place] % (Auto) Eos % (Auto) Baso % (Auto) Neut # (Auto) Lymph # (Auto) Mobile # (Auto) Eos # (Auto) Baso # (Auto) Sample Site ABG Sample Site ABG pH ABG pCO2 ABG pO2 ABG HCO3 ABG Total CO2 ABG O2 Saturation ABG Base Excess FiO2 Sodium 130 L Potassium 3.4 Chloride 95 L Carbon Dioxide 31 BUN 28 H Creatinine 0.32 L Estimated GFR > 60 BUN/Creatinine Ratio 87.5 H Glucose 190 H Calcium 7.6 L Urine Color Yellow Urine Appearance Clear Urine pH 5.0 Ur Specific [place] 1.010 Urine Protein Trace H Urine Glucose (UA) Negative Urine Ketones Negative Urine Occult Blood Negative Urine Nitrate Negative Urine Bilirubin Negative Urine Urobilinogen 0.2 Ur Leukocyte Esterase Negative Urine RBC None seen Urine WBC None seen Ur Squamous Epith Cells None seen Urine Bacteria None seen Ur Culture Indicated? Cult not indicated Vol Urine Centrifuged 10ml (spun) Urine Osmolality Vancomycin Peak 20.0 Vancomycin Trough 12/17/23 12/18/23 23:45 05:20 WBC 12.2 H RBC 3.19 L Hgb 8.6 L Hct 26.2 L MCV 81.9 MCH 26.9 MCHC 32.9 RDW 15.4 H Plt Count 397 Neut % (Auto) 82.3 H Lymph % (Auto) 8.1 L Mobile % (Auto) 9.2 Eos % (Auto) 0.1 L Baso % (Auto) 0.3 Neut # (Auto) 46490 H Lymph # (Auto) 1000 L Mobile # (Auto) 1100 H Eos # (Auto) 0 Baso # (Auto) 0 Sample Site ABG Sample Site ABG pH ABG pCO2 ABG pO2 ABG HCO3 ABG Total CO2 ABG O2 Saturation ABG Base Excess FiO2 Sodium 127 L 130 L Potassium 3.5 Chloride 95 L Carbon Dioxide 33 H BUN 26 H Creatinine 0.36 L Estimated GFR > 60 BUN/Creatinine Ratio 72.2 H Glucose 134 H Calcium 7.9 L Urine Color Urine Appearance Urine pH Ur Specific [place] Urine Protein Urine Glucose (UA) Urine Ketones Urine Occult Blood Urine Nitrate Urine Bilirubin Urine Urobilinogen Ur Leukocyte Esterase Urine RBC Urine WBC Ur Squamous Epith Cells Urine Bacteria Ur Culture Indicated? Vol Urine Centrifuged Urine Osmolality Vancomycin Peak Vancomycin Trough FOR[facility]LY [facility], 1928–1983 Medical History Tracheostomy in place Sepsis Muscle pain Foot pain Ankle pain Chronic back pain Acid reflux Tobacco use disorder, moderate, in early remission Hypertension Ankylosing spondylitis Alcohol abuse Ankylosing spondylitis (1985) GERD (gastroesophageal reflux disease) Hypertension Fracture cervical vertebra-closed Surgical History Status post incision and drainage History of open reduction and internal fixation (ORIF) procedure (2005) Status post colonoscopy (2012) History of tonsillectomy Family History Father No problems noted. Mother Cancer Other Alcoholism Colorectal cancer Social History household members: family Smoking Status: Current every day smoker Assessment & Plan Assessment & Plan narrative: 1. Acute hypoxemic respiratory failure, POA and improving. -secondary to aspiration pneumonia, sepsis -intubated on admit, tube exchanged 12/15. -past H/O tracheostomy -cont Vanc/cefepime (5 to 7 days course depending on clinical response). -replaced ET tube 12/15 due to cuff leak -Down to FiO2 25%, PEEP 5 2. Septic shock, POA and improving. -cont pressor support, maintain MAP > 65 -PCR + adenovirus, + entero/rhino, +nasal MRSA -blood cultures neg so far -Vanc/cefepime -stress dose steroids (3-5 days course) -on low dose norepinephrine. 3. Acute metabolic encephalopathy, POA and improved. -secondary to opiod o.d., sepsis, hyponatremia -tox screen + methamphetamine 4. Acute hyponatremia, POA and improving. -likely SIADH -urine Na 66, urine osm pending -will start NaCl PO today. 5. Severe protein calorie malnutrition, POA and active. -initiate tube feeds -e commerce merchant consult -IV famotidine bid for GI prophylaxis 6. Hypomagnesemia, hypokalemia, POA and improving. - MgSO4, K-riders -recheck daily. Electrolyte replacement protocol. 7. DM 2, POA and active. -cont SC insulin. - Goal BS < 180 Plan: -daily sedation vacation -daily SBT, anticpate probable extubation today. -cont nutritional support with enteral feedings. Spent 35 minutes of critical care time. The patient remains on the vent and pressors for septic shock and is at a high risk for adverse clinical outcomes. Quality VTE Deep Vein Thrombosis/Pulmonary Embolism Present on Admission: No
[2023-12-18] MEDS: PANTOPRAZOLE 40 MG VIAL IV ×2 (08:32→20:15)
[2023-12-18] MEDS: POTASSIUM CHLORIDE IN WATER 10 MEQ/100 ML PIGGYBACK 100 MEQ IV ×2 (08:32→09:43)
[2023-12-18] MEDS: HEPARIN 5,000 UNIT/ML VIAL 5000 UNIT SUBCUT ×2 (08:32→20:15)
[2023-12-18] MEDS: SODIUM CHLORIDE 0.9% FLUSH 10 ML IV ×2 (08:42→21:48)
--- NOTE | 2023-12-18 08:57 | CM.DPC ---
DCP Cont. Reviewed EMR for status updates. Called dtr Radha and relayed that pt woke briefly today and stated that he wanted his son, Yifan, to be his DPOA for Healthcare. She expressed understanding and was supportive of pt's choices. Called and left Yifan a message to please call this IMAGE CONSULTANT re: coming to the hospital to complete the DPOA-HC forms.
--- NOTE | 2023-12-18 09:14 | CM.DPC ---
DCP Cont. DCP Cont. Reviewed EMR for status updates. Called dtr Radha and relayed that pt woke briefly today and stated that he wanted his son, Yifan, to be his DPOA for Healthcare. She expressed understanding and was supportive of pt's choices. Called and attempted to leave message, however his mailbox was full. Will try calling again later this morning.
[2023-12-18] MEDS: OXYCODONE 5 MG/5 ML ORAL SOLUTION 10 MG TUBE (10:24)
[2023-12-18] MEDS: polyethylene glycoL 3350 17 GM POWD.PACK TUBE ×2 (10:25→20:16)
--- NOTE | 2023-12-18 13:05 | P.TELICUPN_ITS ---
Subjective Subjective IF CAMERA ACTIVATED, patient seen via real-time interactive audiovisual communication: Camera activated Consent obtained for tele-infrastructure engineer care: Yes Patient Location: ICU Provider location (State): [place] Other participants/roles: RN, hospitalist Interval history: 63 years old male with history of ankylosing spondylitis, h/o of tracheostomy in the past, dependence and alcohol abuse admitted 12/14/23 with PNA, septic shock, hyponatremia, and Acute respiratory failure requiring intubation. Urine Tox positive for Meth. Viral swab positive for adenovirus and rhinovirus. Patient started on cefepime and Vanco. Levophed and vasopressin started. CT head with no acute intracranial hemorrhage or mass effect. Bilateral maxillary sinus air- fluid levels consistent with intubation. Chest x-ray with diffuse bilateral pulmonary opacities suspicious for pneumonia or aspiration. 12/16: -Na trending up with after 3% NaCl 30 cc/hr x 4 hours on 12/15/23 and now with free water flushes held -Pt. switched from propofol to Dex drip and sedatives are down to Dex 0.6 and Fental 1.5. According to nurse patient will open eyes to stimuli -pressor requirements coming down -Vent currently at R 16 Vt 470 PEEP 5 and FIo2 30%, secretions are minimal -patient failed SBT 12/17 -this morning patient's Pox dropped and FIO2 increased from 30 to 50% and repeat ABG looks good (7.42/48/72). -Levophed drip is at 0.03 mcg/kg/min -Na this morning is 132 -patient still febrile (Tmas this morning is 101.3) 12/18 Patient remains intubated , put on SBT but he became hypoxemic otherwise he is awakw followin commands Current Medications Current Medications Medications: Home Medications albuterol 90 mcg/actuation aerosol inhaler 90 mcg inhalation PRN PRN Shortness Of Breath 12/14/23 [History Confirmed 12/14/23] Visit Medications (administered) Generic Name Dose Route Start Last Admin Trade Name Freq PRN Reason Stop Dose Admin Acetaminophen 650 mg 12/14/23 15:39 12/17/23 08:32 Acetaminophen 325 Mg Tablet PO 650 mg Q6H PRN Administration Fever/Mild Pain (1-3) Chlorhexidine Gluconate 15 ml 12/14/23 18:00 12/18/23 05:11 Chlorhexidine Gluconate 15 Ml Cup PO 15 ml Q6HR JYOTI Administration Heparin Sodium (Porcine) 5,000 unit 12/14/23 21:00 12/18/23 08:32 Heparin 5,000 Unit/Ml Vial SUBCUT 5,000 unit BID JYOTI Administration Fentanyl 1,000 mcg/ Dextrose 250 mls @ 8.176 mls/hr 12/14/23 14:45 12/18/23 08:53 IV 0 mcg/kg/hr TITRATE JYOTI 0 mls/hr Titration Protocol 0.7 MCG/KG/HR Propofol 1,000 mg in 100 mls @ 1.402 mls/hr 12/14/23 15:45 12/18/23 09:18 Propofol IV 0 mcg/kg/min TITRATE JYOTI 0 mls/hr Titration Protocol 5 MCG/KG/MIN dexmedeTOMIDine in 0.9 % NaCL 400 mcg in 100 mls @ 2.336 mls/hr 12/14/23 15:45 12/18/23 06:05 Precedex IV 1.3 mcg/kg/hr TITRATE JYOTI 15.184 mls/hr Administration 0.2 MCG/KG/HR NOREPINEPHRINE BITARTRATE/D5W 4 mg in 250 mls @ 17.52 mls/hr 12/14/23 15:43 12/18/23 04:56 Levophed IV 0.025 mcg/kg/min TITRATE JYOTI 4.38 mls/hr Administration Protocol 0.1 MCG/KG/MIN Vancomycin HCl 750 mg in 150 mls @ 150 mls/hr 12/16/23 09:00 12/18/23 09:43 Vancomycin IV Infused Q8H JYOTI Infusion Meropenem 2 gm/ Sodium 100 mls @ 200 mls/hr 12/17/23 10:15 12/18/23 11:16 Chloride IV Infused Q8H JYOTI Infusion Azithromycin 500 mg/ Dextrose 250 mls @ 250 mls/hr 12/17/23 16:00 12/17/23 17:41 IV 12/19/23 16:59 Infused Q24H JYOTI Infusion Oxycodone HCl 10 mg 12/18/23 10:30 12/18/23 10:24 Oxycodone 5 Mg/5 Ml Oral Solution TUBE 10 mg Q6H JYOTI Administration Pantoprazole Sodium 40 mg 12/16/23 10:00 12/18/23 08:32 Pantoprazole 40 Mg Vial IV 40 mg BID JYOTI Administration Polyethylene Glycol 17 gm 12/18/23 10:30 12/18/23 10:25 Polyethylene Glycol 3350 17 Gm Powd.Pack TUBE 17 gm BID JYOTI Administration Sodium Chloride 10 ml 12/15/23 21:00 12/18/23 08:42 Sodium Chloride 0.9% Flush IV 10 ml BID JYOTI Administration Objective Ventilator Parameters: Ventilator Settings FiO2 25 RT Vent Frequency 16 Ventilator Tidal Volume 470 Exhaled Vt/kg IBW 7 Positive End Expiratory 5 Pressure Inspiratory Phase Time 0.95 I:E Ratio 1:2.9 Patient Position HOB >= 30 degrees Labs 12/18/23 05:20 12/18/23 05:20 Labs: Laboratory Results - last 24 hr 12/14/23 12/17/23 12/17/23 16:45 18:00 23:45 WBC RBC Hgb Hct MCV MCH MCHC RDW Plt Count Neut % (Auto) Lymph % (Auto) [place] % (Auto) Eos % (Auto) Baso % (Auto) Neut # (Auto) Lymph # (Auto) [place] # (Auto) Eos # (Auto) Baso # (Auto) Sodium 130 L 127 L Potassium 3.4 Chloride 95 L Carbon Dioxide 31 BUN 28 H Creatinine 0.32 L Estimated GFR > 60 BUN/Creatinine Ratio 87.5 H Glucose 190 H Calcium 7.6 L Urine Osmolality 367 12/18/23 05:20 WBC 12.2 H RBC 3.19 L Hgb 8.6 L Hct 26.2 L MCV 81.9 MCH 26.9 MCHC 32.9 RDW 15.4 H Plt Count 397 Neut % (Auto) 82.3 H Lymph % (Auto) 8.1 L [place] % (Auto) 9.2 Eos % (Auto) 0.1 L Baso % (Auto) 0.3 Neut # (Auto) 02491 H Lymph # (Auto) 1000 L [place] # (Auto) 1100 H Eos # (Auto) 0 Baso # (Auto) 0 Sodium 130 L Potassium 3.5 Chloride 95 L Carbon Dioxide 33 H BUN 26 H Creatinine 0.36 L Estimated GFR > 60 BUN/Creatinine Ratio 72.2 H Glucose 134 H Calcium 7.9 L Urine Osmolality Exam Vital Signs (past 8 hours): - 12/18/23 05:10 12/18/23 05:15 12/18/23 05:20 Temperature 98.8 F 98.8 F 98.8 F Pulse Rate 58 L 56 L 56 L Respiratory Rate 17 17 17 Blood Pressure Pulse Oximetry 94 94 95 Oxygen Delivery Method 12/18/23 05:25 12/18/23 05:30 12/18/23 05:35 Temperature 99.0 F 98.8 F 99.0 F Pulse Rate 57 L 57 L 56 L Respiratory Rate 17 16 16 Blood Pressure Pulse Oximetry 94 94 95 Oxygen Delivery Method 12/18/23 05:40 12/18/23 05:45 12/18/23 05:50 Temperature 99.0 F 99.0 F 99.0 F Pulse Rate 57 L 57 L 59 L Respiratory Rate 17 16 29 H Blood Pressure Pulse Oximetry 95 94 95 Oxygen Delivery Method 12/18/23 05:55 12/18/23 06:00 12/18/23 06:00 Temperature 99.0 F 98.8 F Pulse Rate 57 L 57 L Respiratory Rate 16 16 Blood Pressure 107/66 Pulse Oximetry 92 93 Oxygen Delivery Method 12/18/23 06:05 12/18/23 06:10 12/18/23 06:15 Temperature 98.8 F 98.8 F 98.8 F Pulse Rate 57 L 57 L 56 L Respiratory Rate 16 16 16 Blood Pressure Pulse Oximetry 94 94 94 Oxygen Delivery Method 12/18/23 06:20 12/18/23 06:25 12/18/23 06:30 Temperature 98.8 F 98.8 F 98.8 F Pulse Rate 57 L 57 L 57 L Respiratory Rate 16 16 16 Blood Pressure Pulse Oximetry 94 94 95 Oxygen Delivery Method 12/18/23 06:35 12/18/23 06:40 12/18/23 06:45 Temperature 98.8 F 98.8 F 98.8 F Pulse Rate 57 L 57 L 56 L Respiratory Rate 16 16 16 Blood Pressure Pulse Oximetry 95 95 95 Oxygen Delivery Method 12/18/23 06:50 12/18/23 06:55 12/18/23 07:00 Temperature 98.8 F 98.8 F 98.8 F Pulse Rate 57 L 55 L 56 L Respiratory Rate 16 16 16 Blood Pressure Pulse Oximetry 95 95 95 Oxygen Delivery Method 12/18/23 07:00 12/18/23 07:00 12/18/23 07:05 Temperature 98.8 F Pulse Rate 55 L Respiratory Rate 16 Blood Pressure 112/67 Pulse Oximetry 95 Oxygen Delivery Method Mechanical Ventilation 12/18/23 07:10 12/18/23 07:15 12/18/23 07:20 Temperature 98.8 F 98.6 F 98.6 F Pulse Rate 56 L 56 L 56 L Respiratory Rate 16 16 16 Blood Pressure Pulse Oximetry 95 95 95 Oxygen Delivery Method 12/18/23 07:30 12/18/23 07:45 12/18/23 08:00 Temperature 98.6 F 98.6 F 98.6 F Pulse Rate 56 L 55 L 57 L Respiratory Rate 16 17 16 Blood Pressure Pulse Oximetry 95 95 96 Oxygen Delivery Method 12/18/23 08:00 12/18/23 08:05 12/18/23 08:10 Temperature 98.6 F 98.6 F Pulse Rate 55 L 54 L Respiratory Rate 17 16 Blood Pressure 116/76 Pulse Oximetry 95 94 Oxygen Delivery Method 12/18/23 08:15 12/18/23 08:20 12/18/23 08:25 Temperature 98.6 F 98.6 F 98.6 F Pulse Rate 54 L 53 L 53 L Respiratory Rate 16 16 16 Blood Pressure Pulse Oximetry 94 95 95 Oxygen Delivery Method 12/18/23 08:30 12/18/23 08:35 12/18/23 08:40 Temperature 98.6 F 98.6 F 98.6 F Pulse Rate 53 L 53 L 54 L Respiratory Rate 16 16 16 Blood Pressure Pulse Oximetry 95 95 96 Oxygen Delivery Method 12/18/23 08:45 12/18/23 08:50 12/18/23 08:55 Temperature 98.6 F 98.6 F 98.6 F Pulse Rate 53 L 54 L 54 L Respiratory Rate 16 16 17 Blood Pressure Pulse Oximetry 96 96 96 Oxygen Delivery Method 12/18/23 09:00 12/18/23 09:00 12/18/23 09:05 Temperature 98.4 F 98.6 F Pulse Rate 55 L 68 Respiratory Rate 19 21 Blood Pressure 96/63 Pulse Oximetry 96 93 Oxygen Delivery Method 12/18/23 09:10 12/18/23 09:15 12/18/23 09:20 Temperature 98.4 F 98.4 F 98.4 F Pulse Rate 53 L 54 L 53 L Respiratory Rate 16 16 16 Blood Pressure Pulse Oximetry 95 95 95 Oxygen Delivery Method 12/18/23 09:25 12/18/23 09:30 12/18/23 09:35 Temperature 98.4 F 98.4 F 98.4 F Pulse Rate 54 L 54 L 54 L Respiratory Rate 16 17 16 Blood Pressure Pulse Oximetry 96 96 96 Oxygen Delivery Method 12/18/23 09:40 12/18/23 09:45 12/18/23 09:50 Temperature 98.4 F 98.4 F 98.4 F Pulse Rate 54 L 55 L 58 L Respiratory Rate 16 18 18 Blood Pressure Pulse Oximetry 96 95 95 Oxygen Delivery Method 12/18/23 09:55 12/18/23 10:00 12/18/23 10:00 Temperature 98.4 F 98.4 F Pulse Rate 55 L 54 L Respiratory Rate 17 16 Blood Pressure 100/65 Pulse Oximetry 94 95 Oxygen Delivery Method 12/18/23 10:05 12/18/23 10:10 12/18/23 10:15 Temperature 98.4 F 98.4 F 98.4 F Pulse Rate 55 L 54 L 54 L Respiratory Rate 16 16 16 Blood Pressure Pulse Oximetry 97 95 96 Oxygen Delivery Method 12/18/23 10:20 12/18/23 10:25 12/18/23 10:30 Temperature 98.4 F 98.4 F 98.4 F Pulse Rate 54 L 54 L 56 L Respiratory Rate 16 16 17 Blood Pressure Pulse Oximetry 97 96 97 Oxygen Delivery Method 12/18/23 10:35 12/18/23 10:40 12/18/23 10:45 Temperature 98.4 F 98.4 F 98.2 F Pulse Rate 55 L 53 L 56 L Respiratory Rate 17 20 18 Blood Pressure Pulse Oximetry 96 95 94 Oxygen Delivery Method 12/18/23 10:50 12/18/23 10:55 12/18/23 11:00 Temperature 98.2 F 98.2 F Pulse Rate 70 57 L Respiratory Rate 22 20 Blood Pressure Pulse Oximetry 93 100 Oxygen Delivery Method Mechanical Ventilation 12/18/23 11:00 12/18/23 11:00 12/18/23 11:05 Temperature 98.2 F 98.2 F Pulse Rate 59 L 59 L Respiratory Rate 23 17 Blood Pressure 135/66 Pulse Oximetry 93 100 Oxygen Delivery Method 12/18/23 11:10 12/18/23 11:13 12/18/23 11:13 Temperature 98.4 F 98.4 F Pulse Rate 58 L 59 L Respiratory Rate 16 17 Blood Pressure Pulse Oximetry 96 94 94 Oxygen Delivery Method 12/18/23 11:13 12/18/23 11:15 12/18/23 11:20 Temperature 98.4 F 98.4 F Pulse Rate 61 58 L Respiratory Rate 18 20 Blood Pressure 84/56 L Pulse Oximetry 93 95 Oxygen Delivery Method 12/18/23 11:25 12/18/23 11:30 12/18/23 11:35 Temperature 98.4 F 98.4 F 98.6 F Pulse Rate 65 62 64 Respiratory Rate 17 23 21 Blood Pressure Pulse Oximetry 92 93 93 Oxygen Delivery Method 12/18/23 11:40 12/18/23 11:45 12/18/23 12:00 Temperature 98.6 F 98.6 F 98.8 F Pulse Rate 69 68 72 Respiratory Rate 21 26 H 28 H Blood Pressure Pulse Oximetry 91 92 88 L Oxygen Delivery Method 12/18/23 12:00 12/18/23 12:15 12/18/23 12:30 Temperature 98.8 F 98.8 F Pulse Rate 69 63 Respiratory Rate 29 H 29 H Blood Pressure 108/61 Pulse Oximetry 88 L 92 Oxygen Delivery Method 12/18/23 12:45 Temperature 98.8 F Pulse Rate 71 Respiratory Rate 28 H Blood Pressure Pulse Oximetry 88 L Oxygen Delivery Method Fraction of Inspired Oxygen 30 Oxygen Delivery Method Mechanical Ventilation Oxygen Flow Rate 98 Narrative Exam Narrative: itnubated - awake Resp Other: symmetric chest rise Cardio Other: rate controlled Quality TeleICU VTE Deep Vein Thrombosis/Pulmonary Embolism Present on Admission: No Assessment & Plan Assessment & Plan narrative: Assessment PNA Acute respiratory failure requiring intubation Septic Shock Hyponatremia polysubstance abuse- ETOH, meth, opiates still febrile 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
[2023-12-18 13:28] LABS: D Dimer 6658 ng/ml (<500)
--- NOTE | 2023-12-18 13:40 | DI.CT.S_ITS ---
PROCEDURE: CT ANGIO CHEST PE PROTOCOL INDICATIONS: acute de-sat, high d-dimer, r/o PE TECHNIQUE: After the administration of intravenous contrast, 2 mm thick sections acquired from the pulmonary apices to the posterior costophrenic angles. 3-dimensional maximum intensity projection (MIP) coronal and sagittal reformats were then acquired through the thorax. For radiation dose reduction, the following was used: automated exposure control, adjustment of mA and/or kV according to patient size. COMPARISON: [facility], CT, CT ANGIO CHEST PE PROTOCOL, 11/05/2022, 11:33. FINDINGS: Image quality: Diagnostic. Pulmonary arteries: Pulmonary arteries are normal in size, and demonstrate no intraluminal filling defects to suggest central pulmonary embolism. Lower Neck: No enlarged lymph nodes. Thyroid: No thyroid nodules which require sonographic follow up, per consensus guidelines. Axillae: No enlarged lymph nodes. Chest Wall: Unremarkable. Bones: Diffuse idiopathic skeletal hyperostosis. Lungs and Pleura: Small pleural effusions. Dependent centrilobular and ground-glass nodules with bibasilar consolidation, left greater than right. Heart: Heart size is normal. No pericardial effusion. Thoracic Vessels: No aortic aneurysm. Mediastinum and [place]: No enlarged lymph nodes. Esophagus: No wall thickening. No hiatal hernia. Upper Abdomen: Moderate volume ascites. Gastric tube passes below the diaphragm, terminating within stomach. IMPRESSION: No pulmonary embolus. Suspected large volume aspiration, with dependent centrilobular and tree-in-bud nodules, and dependent consolidation. Dictated by: Kobe Britt M.D. on 12/18/2023 at 15:35 Approved by: Kobe Britt M.D. on 12/18/2023 at 15:37
[2023-12-18] MEDS: dexmedeTOMIDine in 0.9 % NaCL 400 MCG/100 ML PLAST..BAG 17.52 MCG IV (13:58)
--- NOTE | 2023-12-18 13:59 | PC.NURSE ---
Addendum entered by Stacy Man R.N. 12/18/23 16:58: Turned on pt's tube feeds at 0900, confirmed with provider that continuous tube feeds were desired with a total of 960 ml per day. Stopped tube feeds around 1130 when tele ICU provider said to stop tube feeds and remove residual. Resumed tube feeds when patient was back in room safely after CT with HOB position at 30 degrees or greater around 1530. Original Note: During SBT, pt's O2 saturations dropped several times requiring increased FiO2. Whizzer ordered ABG and D-Dimer, do to elevated D-Dimer, patient services assistant ordered CT. Whizzer communicated that patient will not be extubated today and to resume sedation. RN communicated to patient services assistant and hospitalist what pt wrote he was doing for pain at home - 4-6 heroin dose 30. When resuming sedation after SBT, RN gave 50 mcg fentanyl bolus. Pt denies CP. Pt wrote he felt a little dizzy, could be attributed to hyperventilating on SBT. Pt denies having a previous known clot (PE/DVT). Pt calm and does not appear to be in distress during SBT.
--- NOTE | 2023-12-18 14:08 | PM.EICU.INT ---
Teleintensivist Intervention Date/Time Was camera activated?: Yes Issue(s) Addressed Issue(s): Resp. Distress/Ventilator management Intervention(s) :: Pt with new hypoxemia during SBT - checked d- dimer which was 6 K , ordered a stat CTA
[2023-12-18 15:40] LABS: Fractionated Inspired Oxygen 35; HCO3 ABG 32 mmol/L (23-27); Oxygen Saturation ABG 86 % (95-100); PCO2 ABG 44.2 mmHg (35-45); TCO2 ABG 33 mmol/L (23-27); pH ABG 7.46 (7.35-7.45)
[2023-12-18 15:41] LABS: Blood Gas Other Coll. Site ART LINE
[2023-12-18 15:42] LABS: PO2 ABG 49 mmHg (80-100)
--- NOTE | 2023-12-18 16:06 | RT ---
Pt placed on SBT and fell WNL, before extubation was to be executed Pt O2 demand increased, previously 96% SpO2 on 25% FiO2 kept desaturating to 88% and lower finally leveled out at 92% SpO2 on 40% FiO2. Acquired ABG per Tele-Inventory Control Supervisor pO2 49, all other ranges acceptable. Extubation plans called off and transport to CT scan after D-dimer returned elevated.
[2023-12-18] MEDS: OXYCODONE 5 MG/5 ML ORAL SOLUTION 30 MG TUBE ×2 (16:17→20:01)
[2023-12-18] MEDS: AZITHROMYCIN 500 MG in DEXTROSE 5% IN WATER 250 ML 250 MG IV (16:30)
[2023-12-18] MEDS: dexmedeTOMIDine in 0.9 % NaCL 400 MCG/100 ML PLAST..BAG 11.68 MCG IV (17:30)
[2023-12-18] MEDS: fentaNYL 1,000 MCG in DEXTROSE 5% IN WATER 230 ML 11.68 MCG IV (17:31)
[2023-12-18] MEDS: ALBUTEROL 2.5 MG/3 ML NEB (ADULT) INH (18:07)
[2023-12-18 20:12] LABS: Sodium 128 mmol/L (137-145)
--- NOTE | 2023-12-18 20:57 | PM.ICURNDS ---
- Date Patient Seen: 12/18/23 Time Patient Seen: 20:30 :: This patient was seen via real time interactive two-way audiovisual telecommunication. Note: 63 years old male with history of ankylosing spondylitis, h/o of tracheostomy in the past, dependence and alcohol abuse admitted 12/14/23 with PNA, septic shock, hyponatremia, and acute respiratory failure hypoxic equiring intubation due to methamphetamine abuse, adenovirus and rhinovirus; may also have superimposed bacterial PNA. Pul CTA (-) for PE today. CAMERA: Intubated, sedated DRIPS: Precedex 1 mcg/kg/hr Propofol 35 mcg/kg/min NE 0.7 mcg/kg/min Fentanyl 1 mcg/kg/hr VENT: 40% PEEP 5 RR 16 TV 480 mL No changes to plan; discussed w/ RN.
[2023-12-19] VITALS (39 sets, daily range): BP systolic 86–140; BP diastolic 53–77; PULSE 63–92; RESP 14–58; TEMP 36.7–37.1; O2SAT 94–98
[2023-12-19] MEDS: dexmedeTOMIDine in 0.9 % NaCL 400 MCG/100 ML PLAST..BAG 11.68 MCG IV ×3 (00:25→13:55)
[2023-12-19] MEDS: OXYCODONE 5 MG/5 ML ORAL SOLUTION 30 MG TUBE ×4 (00:28→12:32)
[2023-12-19] MEDS: VANCOMYCIN 750 MG/150 ML PIGGYBACK 150 MG IV ×3 (00:28→16:59)
[2023-12-19] MEDS: CHLORHEXIDINE GLUCONATE 15 ML CUP PO ×4 (00:29→17:08)
[2023-12-19] MEDS: MEROPENEM 2 GM in SODIUM CHLORIDE 0.9% 100 ML IV ×3 (01:33→19:48)
[2023-12-19] MEDS: propofoL 1,000 MG/100 ML VIAL 7.008 MG IV (01:57)
[2023-12-19] MEDS: NOREPINEPHRINE BITARTRATE/D5W 4 MG/250 ML PLAST..BAG 14.016 MG IV (04:05)
[2023-12-19 04:49] LABS: Add Manual Diff / Slide Review NO; Basophils Absolute Auto 100 /uL (0-100); Basophils Percent Auto 0.6 % (0-2); Eosinophils Absolute Auto 100 /uL (0-450); Eosinophils Percent Auto 0.6 % (2-4); Hematocrit 28.7 % (41-53); Hemoglobin 9.4 g/dL (13.5-17.5); Lymphocytes Absolute Auto 2000 /uL (1100-4500); Lymphocytes Percent Auto 8.6 % (25-40); Mean Corpuscular HGB Conc 32.6 % (30-36); Mean Corpuscular Hemoglobin 26.8 PG (26-34); Mean Corpuscular Volume 82.1 fL (80-100); Monocytes Absolute Auto 1600 /uL (0-900); Monocytes Percent Auto 6.8 % (3-14); Neutrophils Absolute Auto 19300 /uL (1500-7000); Neutrophils Percent Auto 83.4 % (50-75); Platelet Count 524 X10^3/uL (150-400); Red Cell Distribution Width 15.4 % (11.6-14.8); White Blood Cell Count 23.2 X10^3/uL (4.5-11.0)
[2023-12-19 04:57] LABS: BUN Creatinine Ratio 67.7 (6-22); Blood Urea Nitrogen 21 mg/dL (9-20); Calcium 7.9 mg/dL (8.4-10.2); Carbon Dioxide 35 mmol/L (22-32); Chloride 94 mmol/L (98-107); Estimated Glomerular Filt Rate > 60 mL/min (>60); Glucose 108 mg/dL (80-110); HEMOLYSIS < 15 (0-50); Potassium 3.5 mmol/L (3.4-5.1); Sodium 129 mmol/L (137-145)
[2023-12-19] MEDS: VANCOMYCIN TROUGH 1 REQUEST MISC (08:41)
[2023-12-19] MEDS: polyethylene glycoL 3350 17 GM POWD.PACK TUBE (08:42)
[2023-12-19] MEDS: PANTOPRAZOLE 40 MG VIAL IV ×2 (08:42→20:33)
[2023-12-19] MEDS: HEPARIN 5,000 UNIT/ML VIAL 5000 UNIT SUBCUT ×2 (08:42→20:32)
[2023-12-19] MEDS: SODIUM CHLORIDE 0.9% FLUSH 10 ML IV ×2 (08:43→20:33)
[2023-12-19] MEDS: POTASSIUM CHLORIDE IN WATER 10 MEQ/100 ML PIGGYBACK 100 MEQ IV ×2 (10:04→10:34)
[2023-12-19] MEDS: VANCOMYCIN PEAK 1 REQUEST MISC (11:00)
--- NOTE | 2023-12-19 11:31 | PC.NURSE ---
Addendum entered by Mary Portillo R.N. 12/19/23 16:24: 1624 Art line removed, per Dr Contreras, line was infiltrated, removed with no difficulty, tip intact, no further needs at this time Addendum entered by Mary Portillo R.N. 12/19/23 13:38: Rectal tube placed for excessive loose stools r/t tube feed Addendum entered by Mary Portillo R.N. 12/19/23 12:20: Attempted PS 5/5, pt was able to last 20min, returned to PS 8/5 which he has tolerated for 3 hrs prior to attempt at 5/5. Pt RR is 28-29 which is the reason for the failure. No further needs at this time Addendum entered by Mayr Portillo R.N. 12/19/23 11:39: Art line in place and being zero and monitored per protocol, see charting for documentation Original Note: Day shift note: 0853 Attempted SBT, according to RT pt failed d/t unable to take in deep enough breaths, pt remaining on pressure support as long as he can tolerate with most sedation off (precedex continues to infuse as noted in emar). Pt sitting up in bed with a RASS of 0, able to make needs known via white board. Pt wants to remain off sedation as long as he can, denies pain. Norepi infusing as noted in emar, VSS. No further needs at this time
--- NOTE | 2023-12-19 11:33 | PM.PN.EICU ---
Subjective Subjective IF CAMERA ACTIVATED, patient seen via real-time interactive audiovisual communication: Camera activated Consent obtained for tele-flanging operator care: Yes Patient Location: ICU Provider location (State): [place] Other participants/roles: RN Interval history: 63 years old male with history of ankylosing spondylitis, h/o of tracheostomy in the past, dependence and alcohol abuse admitted 12/14/23 with PNA, septic shock, hyponatremia, and Acute respiratory failure requiring intubation. Urine Tox positive for Meth. Viral swab positive for adenovirus and rhinovirus. Patient started on cefepime and Vanco. Levophed and vasopressin started. CT head with no acute intracranial hemorrhage or mass effect. Bilateral maxillary sinus air-fluid levels consistent with intubation. Chest x-ray with diffuse bilateral pulmonary opacities suspicious for pneumonia or aspiration. 12/16: -Na trending up with after 3% NaCl 30 cc/hr x 4 hours on 12/15/23 and now with free water flushes held -Pt. switched from propofol to Dex drip and sedatives are down to Dex 0.6 and Fental 1.5. According to nurse patient will open eyes to stimuli -pressor requirements coming down -Vent currently at R 16 Vt 470 PEEP 5 and FIo2 30%, secretions are minimal -patient failed SBT 12/17 -this morning patient's Pox dropped and FIO2 increased from 30 to 50% and repeat ABG looks good (7.42/48/72). -Levophed drip is at 0.03 mcg/kg/min -Na this morning is 132 -patient still febrile (Tmas this morning is 101.3) 12/18 Patient remains intubated , put on SBT but he became hypoxemic otherwise he is awakw followin commands 12/19 pt remains intubated - but awake and writing on clipboard to communicate. on PSV 8/5 , did not tolerate 5/5 Current Medications Current Medications Medications: Home Medications albuterol 90 mcg/actuation aerosol inhaler 90 mcg inhalation PRN PRN Shortness Of Breath 12/14/23 [History Confirmed 12/14/23] Visit Medications (administered) Generic Name Dose Route Start Last Admin Trade Name Freq PRN Reason Stop Dose Admin Acetaminophen 650 mg 12/14/23 15:39 12/17/23 08:32 Acetaminophen 325 Mg Tablet PO 650 mg Q6H PRN Administration Fever/Mild Pain (1-3) Albuterol 2.5 mg 12/18/23 17:24 12/18/23 18:07 Albuterol 2.5 Mg/3 Ml Neb (Adult) INH 2.5 mg [id number] PRN Administration Shortness Of Breath Bisacodyl 10 mg 12/18/23 09:47 12/19/23 10:05 Bisacodyl 10 Mg Supp FL Not Given BID JYOTI Chlorhexidine Gluconate 15 ml 12/14/23 18:00 12/19/23 06:33 Chlorhexidine Gluconate 15 Ml Cup PO 15 ml Q6HR JYOTI Administration Heparin Sodium (Porcine) 5,000 unit 12/14/23 21:00 12/19/23 08:42 Heparin 5,000 Unit/Ml Vial SUBCUT 5,000 unit BID JYOTI Administration Fentanyl 1,000 mcg/ Dextrose 250 mls @ 8.176 mls/hr 12/14/23 14:45 12/19/23 08:30 IV 0 mcg/kg/hr TITRATE JYOTI 0 mls/hr Titration Protocol 0.7 MCG/KG/HR Propofol 1,000 mg in 100 mls @ 1.402 mls/hr 12/14/23 15:45 12/19/23 08:30 Propofol IV 0 mcg/kg/min TITRATE JYOTI 0 mls/hr Titration Protocol 5 MCG/KG/MIN dexmedeTOMIDine in 0.9 % NaCL 400 mcg in 100 mls @ 2.336 mls/hr 12/14/23 15:45 12/19/23 07:45 Precedex IV 1 mcg/kg/hr TITRATE JYOTI 11.68 mls/hr Administration 0.2 MCG/KG/HR NOREPINEPHRINE BITARTRATE/D5W 4 mg in 250 mls @ 17.52 mls/hr 12/14/23 15:43 12/19/23 11:09 Levophed IV 0.18 mcg/kg/min TITRATE JYOTI 31.536 mls/hr Titration Protocol 0.1 MCG/KG/MIN Vancomycin HCl 750 mg in 150 mls @ 150 mls/hr 12/16/23 09:00 12/19/23 09:23 Vancomycin IV 150 mls/hr Q8H JYOTI Administration Meropenem 2 gm/ Sodium 100 mls @ 200 mls/hr 12/17/23 10:15 12/19/23 10:34 Chloride IV 200 mls/hr Q8H JYOTI Administration Azithromycin 500 mg/ Dextrose 250 mls @ 250 mls/hr 12/17/23 16:00 12/18/23 17:40 IV 12/19/23 16:59 Infused Q24H JYOTI Infusion Oxycodone HCl 30 mg 12/18/23 20:00 12/19/23 08:41 Oxycodone 5 Mg/5 Ml Oral Solution TUBE 30 mg Q4H JYOTI Administration Pantoprazole Sodium 40 mg 12/16/23 10:00 12/19/23 08:42 Pantoprazole 40 Mg Vial IV 40 mg BID JYOTI Administration Polyethylene Glycol 17 gm 12/18/23 10:30 12/19/23 08:42 Polyethylene Glycol 3350 17 Gm Powd.Pack TUBE 17 gm BID JYOTI Administration Sodium Chloride 10 ml 12/15/23 21:00 12/19/23 08:43 Sodium Chloride 0.9% Flush IV 10 ml BID JYOTI Administration Objective Ventilator Parameters: Ventilator Settings FiO2 35 RT Vent Frequency 16 Ventilator Tidal Volume 480 Exhaled Vt/kg IBW 7 Positive End Expiratory 5 Pressure Ventilator Pressure Support 8 Inspiratory Phase Time 0.95 I:E Ratio 1:2.9 Patient Position HOB >= 30 degrees Labs 12/19/23 04:30 12/19/23 04:30 Labs: Laboratory Results - last 24 hr 12/18/23 12/18/23 12/18/23 13:08 13:10 19:50 WBC RBC Hgb Hct MCV MCH MCHC RDW Plt Count Neut % (Auto) Lymph % (Auto) [place] % (Auto) Eos % (Auto) Baso % (Auto) Neut # (Auto) Lymph # (Auto) [place] # (Auto) Eos # (Auto) Baso # (Auto) D-Dimer 6658 H Sample Site Art line ABG pH 7.46 H ABG pCO2 44.2 ABG pO2 49 L* ABG HCO3 32 H ABG Total CO2 33 H ABG O2 Saturation 86 L ABG Base Excess 8.0 H FiO2 35 Sodium 128 L Potassium Chloride Carbon Dioxide BUN Creatinine Estimated GFR BUN/Creatinine Ratio Glucose Calcium Vancomycin Trough 12/19/23 12/19/23 04:30 08:55 WBC 23.2 H D RBC 3.50 L Hgb 9.4 L Hct 28.7 L MCV 82.1 MCH 26.8 MCHC 32.6 RDW 15.4 H Plt Count 524 H Neut % (Auto) 83.4 H Lymph % (Auto) 8.6 L [place] % (Auto) 6.8 Eos % (Auto) 0.6 L Baso % (Auto) 0.6 Neut # (Auto) 21725 H Lymph # (Auto) 2000 [place] # (Auto) 1600 H Eos # (Auto) 100 Baso # (Auto) 100 D-Dimer Sample Site ABG pH ABG pCO2 ABG pO2 ABG HCO3 ABG Total CO2 ABG O2 Saturation ABG Base Excess FiO2 Sodium 129 L Potassium 3.5 Chloride 94 L Carbon Dioxide 35 H BUN 21 H Creatinine 0.31 L Estimated GFR > 60 BUN/Creatinine Ratio 67.7 H Glucose 108 Calcium 7.9 L Vancomycin Trough 15.0 Exam Vital Signs (past 8 hours): - 12/19/23 04:00 12/19/23 04:00 12/19/23 05:00 Temperature 98.6 F 98.6 F Pulse Rate 65 65 Respiratory Rate 16 17 Blood Pressure 110/60 Pulse Oximetry 95 96 Oxygen Delivery Method 12/19/23 05:00 12/19/23 06:00 12/19/23 06:00 Temperature 98.4 F Pulse Rate 64 Respiratory Rate 16 Blood Pressure 118/73 119/72 Pulse Oximetry 96 Oxygen Delivery Method 12/19/23 07:00 12/19/23 07:00 12/19/23 07:00 Temperature 98.4 F Pulse Rate 65 Respiratory Rate 16 Blood Pressure 96/62 Pulse Oximetry 97 Oxygen Delivery Method Mechanical Ventilation 12/19/23 08:00 12/19/23 08:00 12/19/23 09:00 Temperature 98.8 F Pulse Rate 65 Respiratory Rate 16 Blood Pressure 119/71 91/53 L Pulse Oximetry 97 Oxygen Delivery Method 12/19/23 09:00 12/19/23 09:18 12/19/23 09:19 Temperature 98.6 F Pulse Rate 72 71 Respiratory Rate 18 Blood Pressure 122/60 122/60 Pulse Oximetry 96 Oxygen Delivery Method 12/19/23 10:00 12/19/23 10:00 12/19/23 11:00 Temperature 98.4 F Pulse Rate 67 Respiratory Rate 16 Blood Pressure 101/56 L Pulse Oximetry 95 Oxygen Delivery Method Mechanical Ventilation 12/19/23 11:00 12/19/23 11:00 12/19/23 11:10 Temperature 98.4 F Pulse Rate 67 68 Respiratory Rate 14 Blood Pressure 107/64 89/69 L Pulse Oximetry 97 Oxygen Delivery Method Fraction of Inspired Oxygen 35 SaO2/FiO2 Ratio 280 Oxygen Delivery Method Mechanical Ventilation Oxygen Flow Rate 98 Narrative Exam Narrative: intubated/awake Resp Other: symmetric chest rise Cardio Other: rate controlled Quality TeleICU VTE Deep Vein Thrombosis/Pulmonary Embolism Present on Admission: No Assessment & Plan Assessment & Plan narrative: Assessment PNA Acute respiratory failure requiring intubation Septic Shock Hyponatremia polysubstance abuse- ETOH, meth, opiates 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 MAC, would obtain afb but i do not suspect MTB - too earrly to tell if he will need a tracheostomy, isaura as he is awake tolerting 8/5 quite well. Will attempt 5/5 when able and etubate to bipap at that time. ID: - cont merrem - can de-ecalate vanco this evening - cont azithromycin -blood culture so far neg -will repeat blood culture and send sputum and urine culture Heme: trend cbc goal hgb > 7 goal plt > 10 k transfuse as needed GI: protonix FEN/Renal: trend bmp Endo: stop stress dose steroids today PPx: protonix and SQ heparin Code status FULL Code CCT spent 55 min
--- NOTE | 2023-12-19 11:45 | CM.DPNOTE ---
Addendum entered by VARGAS Alejandra 12/20/23 10:09: ADD: Patient awake and alert this morning during his breathing trial. Patient using a white board to communicate. Patient asking to designate his son Yifan as DPOA. Met w/patient, reviewed the DPOA documentation that forensic social worker Kerry kindly started. Explained that Yifan is listed as the primary, strongly encouraged patient to consider alternate contacts in case Yifan cannot be reached. Patient decided upon his niece Tiffanie Long Original Note: DCP Cont Dr Contreras monitoring closely, patient may be a candidate for transfer. Trial of extubation this morning failed. Patient with hx of trach/peg, may need again. CM team following clinical course closely. ESDRAS
[2023-12-19 11:55] LABS: Vancomycin Peak 23.1 ug/mL (20-40)
[2023-12-19] MEDS: NOREPINEPHRINE BITARTRATE/D5W 4 MG/250 ML PLAST..BAG 31.536 MG IV (14:03)
--- NOTE | 2023-12-19 15:03 | PM.PN.1 ---
Subjective Subjective Interval history: Patient remains intubated this morning. He is alert with sedation already on board. He is able to write for communcation. His breathing trial was improved slightly today. Exam Vital Signs (past 8 hours): - 12/19/23 08:00 12/19/23 08:00 12/19/23 09:00 Temperature 98.8 F Pulse Rate 65 Respiratory Rate 16 Blood Pressure 119/71 91/53 L Pulse Oximetry 97 Oxygen Delivery Method Fraction of Inspired Oxygen 12/19/23 09:00 12/19/23 09:18 12/19/23 09:19 Temperature 98.6 F Pulse Rate 72 71 Respiratory Rate 18 Blood Pressure 122/60 122/60 Pulse Oximetry 96 Oxygen Delivery Method Fraction of Inspired Oxygen 12/19/23 10:00 12/19/23 10:00 12/19/23 11:00 Temperature 98.4 F Pulse Rate 67 Respiratory Rate 16 Blood Pressure 101/56 L Pulse Oximetry 95 Oxygen Delivery Method Mechanical Ventilation Fraction of Inspired Oxygen 12/19/23 11:00 12/19/23 11:00 12/19/23 11:10 Temperature 98.4 F Pulse Rate 67 68 Respiratory Rate 14 Blood Pressure 107/64 89/69 L Pulse Oximetry 97 Oxygen Delivery Method Fraction of Inspired Oxygen 12/19/23 12:00 12/19/23 12:00 12/19/23 12:11 Temperature 98.6 F Pulse Rate 71 72 Respiratory Rate 21 Blood Pressure 110/66 100/66 Pulse Oximetry 97 Oxygen Delivery Method Fraction of Inspired Oxygen 12/19/23 12:20 12/19/23 12:31 12/19/23 13:00 Temperature Pulse Rate 70 70 70 Respiratory Rate 20 16 Blood Pressure 107/75 Pulse Oximetry Oxygen Delivery Method Mechanical Ventilation Fraction of Inspired Oxygen 35 12/19/23 13:00 12/19/23 13:01 12/19/23 13:01 Temperature 98.1 F 98.4 F Pulse Rate 72 92 H Respiratory Rate 25 H Blood Pressure 101/61 Pulse Oximetry 98 98 Oxygen Delivery Method Fraction of Inspired Oxygen 12/19/23 14:00 12/19/23 14:00 12/19/23 14:00 Temperature 98.2 F Pulse Rate 68 68 Respiratory Rate 16 Blood Pressure 138/71 129/77 Pulse Oximetry 98 Oxygen Delivery Method Fraction of Inspired Oxygen Fraction of Inspired Oxygen 35 SaO2/FiO2 Ratio 280 Oxygen Delivery Method Mechanical Ventilation Oxygen Flow Rate 98 Narrative Exam Narrative: Intubated, alert this morning, weak and thin appreaing chronically ill Distant breath sounds, poor air movement on pressure support trial CV regular, no murmur. Abdomen flat and soft. No leg edema. No movements. No skin rash. Objective Labs 12/19/23 04:30 12/19/23 04:30 Labs: Laboratory Results - last 24 hr 12/18/23 12/18/23 12/19/23 13:08 19:50 04:30 WBC 23.2 H D RBC 3.50 L Hgb 9.4 L Hct 28.7 L MCV 82.1 MCH 26.8 MCHC 32.6 RDW 15.4 H Plt Count 524 H Neut % (Auto) 83.4 H Lymph % (Auto) 8.6 L [place] % (Auto) 6.8 Eos % (Auto) 0.6 L Baso % (Auto) 0.6 Neut # (Auto) 29733 H Lymph # (Auto) 2000 [place] # (Auto) 1600 H Eos # (Auto) 100 Baso # (Auto) 100 Sample Site Art line ABG pH 7.46 H ABG pCO2 44.2 ABG pO2 49 L* ABG HCO3 32 H ABG Total CO2 33 H ABG O2 Saturation 86 L ABG Base Excess 8.0 H FiO2 35 Sodium 128 L 129 L Potassium 3.5 Chloride 94 L Carbon Dioxide 35 H BUN 21 H Creatinine 0.31 L Estimated GFR > 60 BUN/Creatinine Ratio 67.7 H Glucose 108 Calcium 7.9 L Vancomycin Peak Vancomycin Trough 12/19/23 12/19/23 08:55 11:22 WBC RBC Hgb Hct MCV MCH MCHC RDW Plt Count Neut % (Auto) Lymph % (Auto) [place] % (Auto) Eos % (Auto) Baso % (Auto) Neut # (Auto) Lymph # (Auto) [place] # (Auto) Eos # (Auto) Baso # (Auto) Sample Site ABG pH ABG pCO2 ABG pO2 ABG HCO3 ABG Total CO2 ABG O2 Saturation ABG Base Excess FiO2 Sodium Potassium Chloride Carbon Dioxide BUN Creatinine Estimated GFR BUN/Creatinine Ratio Glucose Calcium Vancomycin Peak 23.1 Vancomycin Trough 15.0 PFSH Medical History Tracheostomy in place Sepsis Muscle pain Foot pain Ankle pain Chronic back pain Acid reflux Tobacco use disorder, moderate, in early remission Hypertension Ankylosing spondylitis Alcohol abuse Ankylosing spondylitis (1985) GERD (gastroesophageal reflux disease) Hypertension Fracture cervical vertebra-closed Surgical History Status post incision and drainage History of open reduction and internal fixation (ORIF) procedure (2005) Status post colonoscopy (2012) History of tonsillectomy Family History Father No problems noted. Mother Cancer Other Alcoholism Colorectal cancer Social History household members: family Smoking Status: Current every day smoker Assessment & Plan Assessment & Plan narrative: 1. Acute hypoxemic respiratory failure, POA and improving. -secondary to possible aspiration pneumonia, sepsis. May have component of chronic respiratory failure with presenting adeno and rhinoviral infections as well. -intubated on admit, tube exchanged 12/15. -past H/O tracheostomy -continues on meropenem and Vanc (5 to 7 days course depending on clinical response). -replaced ET tube 12/15 due to cuff leak -slow improvement daily -low likelihood of TB. 2. Septic shock, POA and improving. -cont pressor support if needed, maintain MAP > 65 -PCR + adenovirus, + entero/rhino, +nasal MRSA -blood cultures neg so far -Vanc/cefepime -stress dose steroids (3-5 days course) now off norepi. 3. Acute metabolic encephalopathy, POA and improved. -secondary to opiod o.d., sepsis, hyponatremia -tox screen + methamphetamine 4. Acute hyponatremia, POA and improving. -likely SIADH -urine Na 66, urine osm pending -continue salt tabs via feeding tube. Na 129 today. Had gotten 3% NS on presentation. 5. Severe protein calorie malnutrition, POA and active. -initiated tube feeds -fruit and vegetable parer consult -IV famotidine bid for GI prophylaxis 6. Hypomagnesemia, hypokalemia, POA and improving. - MgSO4, K-riders -recheck daily. Electrolyte replacement protocol. 7. DM 2, POA and active. -cont SC insulin. - Goal BS < 180 Plan: -daily sedation vacation -daily SBT, anticipate possible extubation in the next 1-2 days if continued improvement. Should it look like he need trach / peg would transfer to higher level facility. -cont nutritional support with enteral feedings. Spent 35 minutes of critical care time. The patient remains on the vent and pressors for septic shock and is at a high risk for adverse clinical outcomes. Quality VTE Deep Vein Thrombosis/Pulmonary Embolism Present on Admission: No
[2023-12-19] MEDS: AZITHROMYCIN 500 MG in DEXTROSE 5% IN WATER 250 ML 250 MG IV (16:56)
[2023-12-19] MEDS: fentaNYL 1,000 MCG in DEXTROSE 5% IN WATER 230 ML 11.68 MCG IV (20:33)
--- NOTE | 2023-12-19 21:22 | PM.ICURNDS ---
- :: This patient was seen via real time interactive two-way audiovisual telecommunication. Note: Remains intubated and sedated. Cont weaning down levo and sedation and check daily SBT. D/w bedside RN
[2023-12-19] MEDS: dexmedeTOMIDine in 0.9 % NaCL 400 MCG/100 ML PLAST..BAG 14.016 MCG IV (21:24)
[2023-12-19] MEDS: NOREPINEPHRINE BITARTRATE/D5W 4 MG/250 ML PLAST..BAG 29.784 MG IV (21:32)
[2023-12-19] MEDS: ACETAMINOPHEN 325 MG TABLET 650 MG PO (21:55)
[2023-12-20] VITALS (42 sets, daily range): BP systolic 88–145; BP diastolic 51–93; PULSE 67–108; RESP 0–56; TEMP 36.8–37.4; O2SAT 88–100
[2023-12-20] MEDS: VANCOMYCIN 750 MG/150 ML PIGGYBACK 150 MG IV ×3 (00:39→17:25)
[2023-12-20] MEDS: CHLORHEXIDINE GLUCONATE 15 ML CUP PO ×3 (00:39→12:05)
[2023-12-20] MEDS: MEROPENEM 2 GM in SODIUM CHLORIDE 0.9% 100 ML IV ×3 (03:07→18:26)
[2023-12-20] MEDS: dexmedeTOMIDine in 0.9 % NaCL 400 MCG/100 ML PLAST..BAG 14.016 MCG IV (03:35)
[2023-12-20 05:03] LABS: BUN Creatinine Ratio 45.2 (6-22); Blood Urea Nitrogen 14 mg/dL (9-20); Calcium 7.7 mg/dL (8.4-10.2); Carbon Dioxide 36 mmol/L (22-32); Chloride 90 mmol/L (98-107); Estimated Glomerular Filt Rate > 60 mL/min (>60); Glucose 112 mg/dL (80-110); HEMOLYSIS < 15 (0-50); Potassium 3.2 mmol/L (3.4-5.1); Sodium 127 mmol/L (137-145)
[2023-12-20] MEDS: NOREPINEPHRINE BITARTRATE/D5W 4 MG/250 ML PLAST..BAG 29.784 MG IV (05:43)
--- NOTE | 2023-12-20 06:37 | PC.NURSE ---
Manager Servicing Note-Patient has been awake most of the night, uses call light, can make needs known with white board. Remains calm, Precedex currently at 1.4mcg/kg/hr, Fentanyl at 1mcg/kg/hr. Tylenol given for headache. Levophed gtt at 0.17mcg/kg/min to keep MAP > 65. SR, RR 16-20, SpO2 > 96% on FIO2 .28 TV 480 PEEP 5. Tolerating TF of Glucerna at 40ml/hr with water flushes. Rectal tube in place, drained 450ml liquid brown stool. 2425ml clear UOP. Family has been in room part of the night.
[2023-12-20] MEDS: POTASSIUM CHLORIDE IN WATER 10 MEQ/100 ML PIGGYBACK 100 MEQ IV ×2 (07:30→15:09)
[2023-12-20] MEDS: PANTOPRAZOLE 40 MG VIAL IV ×2 (08:55→21:16)
[2023-12-20] MEDS: SODIUM CHLORIDE 0.9% FLUSH 10 ML IV ×2 (08:56→21:16)
[2023-12-20] MEDS: HEPARIN 5,000 UNIT/ML VIAL 5000 UNIT SUBCUT ×2 (08:56→22:54)
[2023-12-20] MEDS: POTASSIUM CHLORIDE 20 MEQ/15 ML UDC 40 MEQ TUBE (09:24)
--- NOTE | 2023-12-20 10:08 | PM.PN.EICU ---
Subjective Subjective IF CAMERA ACTIVATED, patient seen via real-time interactive audiovisual communication: Camera activated Consent obtained for tele-recording engineer care: Yes Patient Location: ICU Provider location (State): [place] Other participants/roles: RN, RT Interval history: Pt remains intubated, doing well on PSV @ 8/5. his secretion load is higher today. Current Medications Current Medications Medications: Home Medications albuterol 90 mcg/actuation aerosol inhaler 90 mcg inhalation PRN PRN Shortness Of Breath 12/14/23 [History Confirmed 12/14/23] Visit Medications (administered) Generic Name Dose Route Start Last Admin Trade Name Freq PRN Reason Stop Dose Admin Acetaminophen 650 mg 12/14/23 15:39 12/19/23 21:55 Acetaminophen 325 Mg Tablet PO 650 mg Q6H PRN Administration Fever/Mild Pain (1-3) Albuterol 2.5 mg 12/18/23 17:24 12/18/23 18:07 Albuterol 2.5 Mg/3 Ml Neb (Adult) INH 2.5 mg [id number] PRN Administration Shortness Of Breath Chlorhexidine Gluconate 15 ml 12/14/23 18:00 12/20/23 06:03 Chlorhexidine Gluconate 15 Ml Cup PO 15 ml Q6HR JYOTI Administration Fentanyl 75 mcg 12/19/23 15:45 12/19/23 15:59 Fentanyl 75 Mcg/Patch TOP 75 mcg Q72H JYOTI Administration Heparin Sodium (Porcine) 5,000 unit 12/14/23 21:00 12/20/23 08:56 Heparin 5,000 Unit/Ml Vial SUBCUT 5,000 unit BID JYOTI Administration Fentanyl 1,000 mcg/ Dextrose 250 mls @ 8.176 mls/hr 12/14/23 14:45 12/19/23 20:33 IV 1 mcg/kg/hr TITRATE JYOTI 11.68 mls/hr Administration Protocol 0.7 MCG/KG/HR Propofol 1,000 mg in 100 mls @ 1.402 mls/hr 12/14/23 15:45 12/19/23 08:30 Propofol IV 0 mcg/kg/min TITRATE JYOTI 0 mls/hr Titration Protocol 5 MCG/KG/MIN dexmedeTOMIDine in 0.9 % NaCL 400 mcg in 100 mls @ 2.336 mls/hr 12/14/23 15:45 12/20/23 04:03 Precedex IV 1.4 mcg/kg/hr TITRATE JYOTI 16.352 mls/hr Titration 0.2 MCG/KG/HR NOREPINEPHRINE BITARTRATE/D5W 4 mg in 250 mls @ 17.52 mls/hr 12/14/23 15:43 12/20/23 05:43 Levophed IV 0.17 mcg/kg/min TITRATE JYOTI 29.784 mls/hr Administration Protocol 0.1 MCG/KG/MIN Vancomycin HCl 750 mg in 150 mls @ 150 mls/hr 12/16/23 09:00 12/20/23 03:35 Vancomycin IV Infused Q8H JYOTI Infusion Meropenem 2 gm/ Sodium 100 mls @ 200 mls/hr 12/17/23 10:15 12/20/23 04:42 Chloride IV Infused Q8H JYOTI Infusion Azithromycin 500 mg/ Dextrose 250 mls @ 250 mls/hr 12/17/23 16:00 12/19/23 17:56 IV 12/23/23 16:59 Infused Q24H JYOTI Infusion Pantoprazole Sodium 40 mg 12/16/23 10:00 12/20/23 08:55 Pantoprazole 40 Mg Vial IV 40 mg BID JYOTI Administration Potassium Chloride 40 meq 12/20/23 09:15 12/20/23 09:24 Potassium Chloride 20 Meq/15 Ml Udc TUBE 12/20/23 15:16 40 meq Q6H JYOTI Administration Sodium Chloride 10 ml 12/15/23 21:00 12/20/23 08:56 Sodium Chloride 0.9% Flush IV 10 ml BID JYOTI Administration Objective Ventilator Parameters: Ventilator Settings FiO2 28 RT Vent Frequency 16 Ventilator Tidal Volume 430 Exhaled Vt/kg IBW 7.5 Positive End Expiratory 5 Pressure Ventilator Pressure Support 8 Inspiratory Phase Time 0.95 I:E Ratio 1:2.9 Patient Position HOB >= 30 degrees Labs 12/19/23 04:30 12/20/23 04:07 Labs: Laboratory Results - last 24 hr 12/19/23 12/20/23 11:22 04:07 Sodium 127 L Potassium 3.2 L Chloride 90 L Carbon Dioxide 36 H BUN 14 Creatinine 0.31 L Estimated GFR > 60 BUN/Creatinine Ratio 45.2 H Glucose 112 H Calcium 7.7 L Vancomycin Peak 23.1 Exam Vital Signs (past 8 hours): - 12/20/23 03:00 12/20/23 03:00 12/20/23 04:00 Temperature 99.0 F Pulse Rate 69 Respiratory Rate 17 Blood Pressure 123/71 Pulse Oximetry 98 Oxygen Delivery Method Mechanical Ventilation Oxygen Flow Rate 2 12/20/23 04:00 12/20/23 04:00 12/20/23 05:00 Temperature 98.8 F Pulse Rate 72 Respiratory Rate 17 Blood Pressure 121/72 113/67 Pulse Oximetry 96 Oxygen Delivery Method Oxygen Flow Rate 2 12/20/23 05:00 12/20/23 06:00 12/20/23 06:00 Temperature 99.1 F 99.0 F Pulse Rate 72 73 Respiratory Rate 16 18 Blood Pressure 90/54 L Pulse Oximetry 97 91 Oxygen Delivery Method Oxygen Flow Rate 2 12/20/23 06:03 12/20/23 06:03 12/20/23 07:00 Temperature 99.0 F 99.0 F Pulse Rate 72 72 Respiratory Rate 16 18 Blood Pressure 96/56 L Pulse Oximetry 95 95 Oxygen Delivery Method Oxygen Flow Rate 2 12/20/23 07:00 12/20/23 07:49 12/20/23 08:00 Temperature 99.0 F Pulse Rate 71 Respiratory Rate 16 Blood Pressure 105/69 Pulse Oximetry 95 Oxygen Delivery Method Mechanical Ventilation Oxygen Flow Rate 12/20/23 08:00 12/20/23 08:50 12/20/23 09:00 Temperature 98.8 F Pulse Rate 80 Respiratory Rate 28 H Blood Pressure 145/84 H Pulse Oximetry 100 94 Oxygen Delivery Method Oxygen Flow Rate 12/20/23 09:00 12/20/23 09:50 12/20/23 10:00 Temperature 98.8 F Pulse Rate 78 Respiratory Rate 32 H Blood Pressure 134/79 Pulse Oximetry 93 92 Oxygen Delivery Method Oxygen Flow Rate 12/20/23 10:00 Temperature Pulse Rate Respiratory Rate Blood Pressure 126/76 Pulse Oximetry Oxygen Delivery Method Oxygen Flow Rate Fraction of Inspired Oxygen 0.35 SaO2/FiO2 Ratio 74378 Oxygen Delivery Method Mechanical Ventilation Oxygen Flow Rate 2 Narrative Exam Narrative: intubated/ awake Resp Other: symmetric chest rise Cardio Other: rate controlled Quality TeleICU VTE Deep Vein Thrombosis/Pulmonary Embolism Present on Admission: No Assessment & Plan Assessment & Plan narrative: Assessment PNA Acute respiratory failure requiring intubation Septic Shock Hyponatremia polysubstance abuse- ETOH, meth, opiates 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 MAC, would obtain afb but i do not suspect MTB - too earrly to tell if he will need a tracheostomy, isaura as he is awake tolerting 8/5 quite well. Will attempt 5/5 when able . given secretion loag would avoid bipap ID: - cont merrem for ttoal of 7 days - can de-ecalate vanco this evening - cont azithromycin -blood culture so far neg -will repeat blood culture and send sputum and urine culture - will send procal Heme: trend cbc goal hgb > 7 goal plt > 10 k transfuse as needed GI: protonix FEN/Renal: trend bmp Endo: stress dose steroid de-esscalated PPx: protonix and SQ heparin Code status FULL Code CCT spent 55 min
[2023-12-20] MEDS: dexmedeTOMIDine in 0.9 % NaCL 400 MCG/100 ML PLAST..BAG 17.52 MCG IV (10:17)
--- NOTE | 2023-12-20 10:21 | CM.DPNOTE ---
Addendum entered by Elise Leungniewski, VARGAS 12/20/23 13:20: ADD: Dillon Stanley visiting today, contact info P [phone] Addendum entered by Elise Norwood, VARGAS 12/20/23 11:33: ADD: Spoke with patient's ex-spouse Mercedes who reports she is waiting to hear from her son Yifan, Mercedes does not plan on coming in as she states she has been sick. Asked if Mercedes had contact info for Tiffanie and Worn Fornsby. Mercedes reports Worn is homeless and has no phone, and that both Worn and Tiffanie are using drugs currently, neither have phones. Suggested that when estela Saha and/or Mercedes are able to visit at bedside, and if patient is A+O, it might be good to have another discussion with patient about alternate contacts, Mercedes agreed. JW Original Note: DCP Cont According to discussion in multidisciplinary rounds, patient may be considered for transfer if felt he needs placement of trach and peg. Patient alert and oriented this morning, using his white board for communication. Met w/patient during his breathing trial this morning to review the DPOA ppk that social worker psychiatric Kerry kindly started. Patient writes that he wants to assign estela Saha as a primary. Strongly encouraged patient to consider assigning back up agents in case estela Saha cannot be reached. Patient assigned niece Tiffanie Long (contact?) and Tiffanie's Dad Worn Fornsby (contact?) as his alternates. Asked about daughter Kelsea; this JACKHAMMER SPLITTER OPERATOR had been in close contact with Kelsea during patient's last admission when trach and peg were placed at . Patient shakes head no. Patient requests ex-spouse Mercedes be contacted to 1. Get in touch with estela Saha , ask him to visit and 2. get dillon Conte's contact information. Reviewed chart for dillon Moreno's contact information , did not find. CM team following patient's clinical course closely. ESDRAS
--- NOTE | 2023-12-20 10:37 | PC.NURSE ---
0945--received report and assumed care of pt; pt on breathing trial for possible extubation; Dr Tate on monitor in room talking to pt; increased precedex to 1.5mcg/kg/hr for pt anxiety
--- NOTE | 2023-12-20 11:01 | P.PN_ITS ---
Subjective Subjective Interval history: Patient remains intubated this morning. He is alert with sedation already on board. He tolerated a breathing trial and moving towards extubation now. Exam Vital Signs (past 8 hours): - 12/20/23 04:00 12/20/23 04:00 12/20/23 04:00 Temperature 98.8 F Pulse Rate 72 Respiratory Rate 17 Blood Pressure 121/72 Pulse Oximetry 96 Oxygen Delivery Method Mechanical Ventilation Oxygen Flow Rate 2 12/20/23 05:00 12/20/23 05:00 12/20/23 06:00 Temperature 99.1 F 99.0 F Pulse Rate 72 73 Respiratory Rate 16 18 Blood Pressure 113/67 Pulse Oximetry 97 91 Oxygen Delivery Method Oxygen Flow Rate 2 12/20/23 06:00 12/20/23 06:03 12/20/23 06:03 Temperature 99.0 F Pulse Rate 72 Respiratory Rate 16 Blood Pressure 90/54 L 96/56 L Pulse Oximetry 95 Oxygen Delivery Method Oxygen Flow Rate 2 12/20/23 07:00 12/20/23 07:00 12/20/23 07:49 Temperature 99.0 F Pulse Rate 72 Respiratory Rate 18 Blood Pressure 105/69 Pulse Oximetry 95 Oxygen Delivery Method Mechanical Ventilation Oxygen Flow Rate 12/20/23 08:00 12/20/23 08:00 12/20/23 08:50 Temperature 99.0 F Pulse Rate 71 Respiratory Rate 16 Blood Pressure 145/84 H Pulse Oximetry 95 100 Oxygen Delivery Method Oxygen Flow Rate 12/20/23 09:00 12/20/23 09:00 12/20/23 09:50 Temperature 98.8 F Pulse Rate 80 Respiratory Rate 28 H Blood Pressure 134/79 Pulse Oximetry 94 93 Oxygen Delivery Method Oxygen Flow Rate 12/20/23 10:00 12/20/23 10:00 Temperature 98.8 F Pulse Rate 78 Respiratory Rate 32 H Blood Pressure 126/76 Pulse Oximetry 92 Oxygen Delivery Method Oxygen Flow Rate Fraction of Inspired Oxygen 0.35 SaO2/FiO2 Ratio 20975 Oxygen Delivery Method Mechanical Ventilation Oxygen Flow Rate 2 Narrative Exam Narrative: Intubated, alert this morning, weak and thin appreaing chronically ill Distant breath sounds, poor air movement on pressure support trial CV regular, no murmur. Abdomen flat and soft. No leg edema. No movements. No skin rash. Objective Labs 12/19/23 04:30 12/20/23 04:07 Labs: Laboratory Results - last 24 hr 12/19/23 12/20/23 11:22 04:07 Sodium 127 L Potassium 3.2 L Chloride 90 L Carbon Dioxide 36 H BUN 14 Creatinine 0.31 L Estimated GFR > 60 BUN/Creatinine Ratio 45.2 H Glucose 112 H Calcium 7.7 L Vancomycin Peak 23.1 PFSH Medical History Tracheostomy in place Sepsis Muscle pain Foot pain Ankle pain Chronic back pain Acid reflux Tobacco use disorder, moderate, in early remission Hypertension Ankylosing spondylitis Alcohol abuse Ankylosing spondylitis (1985) GERD (gastroesophageal reflux disease) Hypertension Fracture cervical vertebra-closed Surgical History Status post incision and drainage History of open reduction and internal fixation (ORIF) procedure (2005) Status post colonoscopy (2012) History of tonsillectomy Family History Father No problems noted. Mother Cancer Other Alcoholism Colorectal cancer Social History household members: family Smoking Status: Current every day smoker Assessment & Plan Assessment & Plan narrative: 1. Acute hypoxemic respiratory failure, POA and improving. -secondary to possible aspiration pneumonia, sepsis. May have component of chronic respiratory failure with presenting adeno and rhinoviral infections as well. -intubated on admit, tube exchanged 12/15. -past H/O tracheostomy. Will extubate today, if need for reintubation will likely need tracheostomy and recommend transfer if that happens. -continues on meropenem and Vanc and azithromycin. Can discontinue vanco tonight if no more fever, narrow from meropenem to ceftriaxone given no -replaced ET tube 12/15 due to cuff leak -slow improvement daily -low likelihood of TB. 2. Septic shock, POA and improving. -cont pressor support if needed, maintain MAP > 65 -PCR + adenovirus, + entero/rhino, +nasal MRSA -blood cultures neg so far -Vanc/cefepime -stress dose steroids now completed -wean from norepi as tolerated 3. Acute metabolic encephalopathy, POA and improved. -secondary to opiod o.d., sepsis, hyponatremia -tox screen + methamphetamine 4. Acute hyponatremia, POA and improving. -likely SIADH -urine Na 66, urine osm pending -continue salt tabs via feeding tube. Na 129 today. Had gotten 3% NS on presentation. 5. Severe protein calorie malnutrition, POA and active. -initiated tube feeds -shear grinder operator helper consult -IV famotidine bid for GI prophylaxis -speech eval after extubation today 6. Hypomagnesemia, hypokalemia, POA and improving. - MgSO4, K-riders -recheck daily. Electrolyte replacement protocol. 7. DM 2, POA and active. -cont SC insulin. - Goal BS < 180 Plan: -extubation today, if reintubation will need transfer for trach. -speech eval today if no reintubation -work on sedation requirements, wean from precedex. Currently has fentanyl patch will need to wean down to avoid opiate withdrawal. -will keep in ICU today, if stable tomomorrow and off of levophed can downgrade. Spent 32 minutes of critical care time. The patient remains on the vent and pressors for septic shock and is at a high risk for adverse clinical outcomes. Quality VTE Deep Vein Thrombosis/Pulmonary Embolism Present on Admission: No
--- NOTE | 2023-12-20 11:52 | RT ---
PT EXTUBATED AT 1130 POST SUCCESSFUL WEANING TRIAL, PER VERBAL ORDER BY DR. VALERO AND DR. SOLOMON. PT PLACED ON HHFNC 40LPM AND 35% FIO2 PER DR. VALERO POST EXTUBATION.
--- NOTE | 2023-12-20 12:00 | PC.NURSE ---
1130--pt extubated and placed on hi flow nasal cannula; fentanyl drip discontinued; precedex continues; pt calm and cooperative; soft wrist restraints removed; OG tube was pulled along with ETT
[2023-12-20 12:01] LABS: Blood Gas Collection Site Left Brachial; Fractionated Inspired Oxygen 28; HCO3 ABG 33 mmol/L (23-27); Oxygen Saturation ABG 91 % (95-100); PCO2 ABG 46.8 mmHg (35-45); PO2 ABG 58 mmHg (80-100); TCO2 ABG 35 mmol/L (23-27); pH ABG 7.46 (7.35-7.45)
--- NOTE | 2023-12-20 14:29 | PC.NURSE ---
1400--polo care done and barrier cream applied; pt expelled rectal tube; brief on; explained to pt that he would need to call if soiled; verbalized understanding
[2023-12-20] MEDS: NOREPINEPHRINE BITARTRATE/D5W 4 MG/250 ML PLAST..BAG 21.024 MG IV (15:08)
[2023-12-20] MEDS: AZITHROMYCIN 500 MG in DEXTROSE 5% IN WATER 250 ML 250 MG IV (16:08)
--- NOTE | 2023-12-20 18:36 | PC.NURSE ---
pt is awake and alert, was extubated this morning and is on HHF; he is coughing mod amts of thick white secretions, which he orally suctions himself; Fentanyl and Precedex drips are off; pt remains on norepinephrine drip at 0.12mcg/kg/min; his rectal tube is out; he is tolerating a dysphagia diet, although his appetite is decreased; he has not had any complaints of pain
--- NOTE | 2023-12-20 20:42 | PM.ICURNDS ---
- Date Patient Seen: 12/20/23 Time Patient Seen: 20:30 :: This patient was seen via real time interactive two-way audiovisual telecommunication. Note: 63 years old male with history of ankylosing spondylitis, h/o of tracheostomy in the past, dependence and alcohol abuse admitted 12/14/23 with PNA, septic shock, hyponatremia, and acute respiratory failure hypoxic equiring intubation due to methamphetamine abuse, adenovirus and rhinovirus and possible superimposed bacterial PNA. Pul CTA (-) for PE 12/18. Extubated 12/20 day shift. CAMERA: Awake, alert HFNC 50L 35% NE 0.12 mcg/kg/min Patient is requesting additional analgesia, currently on fentanyl 75 mcg/hr patch. Will write for additional PRN hydromorphone.
--- NOTE | 2023-12-20 20:53 | RT ---
Pt currently off HHFNC and on room-air. Tolerating well. SpO2 93%, HR 93 BPM, spont. RR 20 breaths/min, noting normal WOB. No apparent accessory muscle usage. Pt states that he would like to take a break from HHFNC. RN aware. Will cont. to monitor.
[2023-12-20] MEDS: HYDROMORPHONE 0.5 MG INJ IV (21:16)
[2023-12-20] MEDS: ACETAMINOPHEN 325 MG TABLET 650 MG PO (21:40)
[2023-12-21] VITALS (224 sets, daily range): BP systolic 94–148; BP diastolic 56–88; PULSE 70–138; RESP 0–40; TEMP 36.4–37.3; O2SAT 79–100
[2023-12-21] MEDS: VANCOMYCIN 750 MG/150 ML PIGGYBACK 150 MG IV ×2 (00:24→08:23)
[2023-12-21] MEDS: dexmedeTOMIDine in 0.9 % NaCL 400 MCG/100 ML PLAST..BAG IV (00:36)
[2023-12-21] MEDS: HYDROMORPHONE 0.5 MG INJ IV ×2 (01:25→05:43)
[2023-12-21] MEDS: MEROPENEM 2 GM in SODIUM CHLORIDE 0.9% 100 ML IV (01:43)
[2023-12-21] MEDS: NOREPINEPHRINE BITARTRATE/D5W 4 MG/250 ML PLAST..BAG 21.024 MG IV (02:03)
[2023-12-21 04:24] LABS: BUN Creatinine Ratio 32.1 (6-22); Blood Urea Nitrogen 9 mg/dL (9-20); Calcium 7.8 mg/dL (8.4-10.2); Carbon Dioxide 37 mmol/L (22-32); Chloride 91 mmol/L (98-107); Estimated Glomerular Filt Rate > 60 mL/min (>60); Glucose 104 mg/dL (80-110); HEMOLYSIS < 15 (0-50); Potassium 3.4 mmol/L (3.4-5.1); Sodium 128 mmol/L (137-145)
[2023-12-21] MEDS: HEPARIN 5,000 UNIT/ML VIAL 5000 UNIT SUBCUT ×3 (05:43→21:15)
[2023-12-21] MEDS: ACETAMINOPHEN 325 MG TABLET 650 MG PO ×2 (05:43→16:53)
--- NOTE | 2023-12-21 06:14 | PC.NURSE ---
Credit Control Clerk Note-Patient has been awake throughout the night, A/Ox4 and restless. Incontinent of loose stool, and requesting frequent turning Q30min. Medicated with IV Dilaudid and Tylenol per prn in addition to Fentanyl patch. Has intermittent cough, sx thick white sputum on own, RR 12-22, denies respiratory distress, has been on RA or 1L NC, sats >92%. Initial HR ST up to 115, SR 70s by am. Continues on Levophed at 0.12mcg/kg/min. Precedex infusing at 0.7mcg/kg/hr to help relax patient, says I need something to help me sleep.
[2023-12-21] MEDS: PANTOPRAZOLE 40 MG VIAL IV ×2 (08:23→21:15)
[2023-12-21] MEDS: SODIUM CHLORIDE 0.9% FLUSH 10 ML IV ×2 (08:23→21:15)
--- NOTE | 2023-12-21 08:24 | P.PN_ITS ---
Subjective Subjective Interval history: He was extubated yesterday and is on oxygen nasal cannula today. He is doing well. His entire body hurts. He usually uses Flexeril as needed. ICU doc added IV Dilaudid and he also received Precedex overnight. He denies shortness of breath, has been urinating with Manley. Exam Vital Signs (past 8 hours): - 12/21/23 00:33 12/21/23 00:50 12/21/23 00:50 Temperature 98.8 F Pulse Rate 105 H 98 H Respiratory Rate 21 Blood Pressure 105/78 Pulse Oximetry 97 98 Oxygen Delivery Method Nasal Cannula Humidification Oxygen Flow Rate 1 Fraction of Inspired Oxygen 12/21/23 01:00 12/21/23 01:00 12/21/23 02:00 Temperature 98.8 F 99.0 F Pulse Rate 98 H 86 Respiratory Rate 20 15 Blood Pressure 107/61 Pulse Oximetry 100 99 Oxygen Delivery Method Oxygen Flow Rate 2 2 Fraction of Inspired Oxygen 12/21/23 02:00 12/21/23 03:00 12/21/23 03:00 Temperature 99.0 F Pulse Rate 88 Respiratory Rate 11 L Blood Pressure 114/70 103/59 L Pulse Oximetry 98 Oxygen Delivery Method Oxygen Flow Rate 2 Fraction of Inspired Oxygen 12/21/23 03:05 12/21/23 03:10 12/21/23 03:15 Temperature 99.0 F 99.0 F 99.0 F Pulse Rate 87 89 90 Respiratory Rate 14 19 24 Blood Pressure Pulse Oximetry 99 99 86 L Oxygen Delivery Method Oxygen Flow Rate Fraction of Inspired Oxygen 12/21/23 03:20 12/21/23 03:25 12/21/23 03:30 Temperature 98.6 F 98.8 F 98.8 F Pulse Rate 81 80 77 Respiratory Rate 15 8 L 17 Blood Pressure Pulse Oximetry 97 98 98 Oxygen Delivery Method Oxygen Flow Rate Fraction of Inspired Oxygen 12/21/23 03:35 12/21/23 03:40 12/21/23 03:45 Temperature 98.8 F 98.8 F 99.0 F Pulse Rate 78 77 78 Respiratory Rate 14 11 L 15 Blood Pressure Pulse Oximetry 99 100 98 Oxygen Delivery Method Oxygen Flow Rate Fraction of Inspired Oxygen 12/21/23 03:50 12/21/23 03:54 12/21/23 03:55 Temperature 99.0 F 99.0 F Pulse Rate 82 85 81 Respiratory Rate 12 12 11 L Blood Pressure Pulse Oximetry 96 96 97 Oxygen Delivery Method Nasal Cannula Humidification Oxygen Flow Rate 1 Fraction of Inspired Oxygen 12/21/23 04:00 12/21/23 04:00 12/21/23 04:00 Temperature 99.0 F Pulse Rate 81 Respiratory Rate 15 Blood Pressure 104/56 L Pulse Oximetry 98 Oxygen Delivery Method Nasal Cannula Oxygen Flow Rate 2 Fraction of Inspired Oxygen 12/21/23 04:05 12/21/23 04:10 12/21/23 04:15 Temperature 99.0 F 99.0 F 98.8 F Pulse Rate 81 82 79 Respiratory Rate 12 15 22 Blood Pressure Pulse Oximetry 96 97 98 Oxygen Delivery Method Oxygen Flow Rate Fraction of Inspired Oxygen 12/21/23 04:20 12/21/23 04:25 12/21/23 04:30 Temperature 99.0 F 99.0 F 99.0 F Pulse Rate 78 80 82 Respiratory Rate 13 12 12 Blood Pressure Pulse Oximetry 98 98 97 Oxygen Delivery Method Oxygen Flow Rate Fraction of Inspired Oxygen 12/21/23 04:35 12/21/23 04:40 12/21/23 04:45 Temperature 99.0 F 99.0 F 99.0 F Pulse Rate 82 84 83 Respiratory Rate 12 15 12 Blood Pressure Pulse Oximetry 97 98 97 Oxygen Delivery Method Oxygen Flow Rate Fraction of Inspired Oxygen 12/21/23 04:50 12/21/23 04:55 12/21/23 05:00 Temperature 99.0 F 99.0 F Pulse Rate 81 80 Respiratory Rate 13 12 Blood Pressure 112/69 Pulse Oximetry 97 97 Oxygen Delivery Method Oxygen Flow Rate Fraction of Inspired Oxygen 12/21/23 05:00 12/21/23 05:05 12/21/23 05:10 Temperature 99.0 F 99.0 F 99.0 F Pulse Rate 80 79 79 Respiratory Rate 13 16 14 Blood Pressure Pulse Oximetry 97 96 97 Oxygen Delivery Method Oxygen Flow Rate Fraction of Inspired Oxygen 12/21/23 05:15 12/21/23 05:20 12/21/23 05:25 Temperature 99.0 F 99.0 F 99.0 F Pulse Rate 79 78 79 Respiratory Rate 19 12 12 Blood Pressure Pulse Oximetry 97 98 97 Oxygen Delivery Method Oxygen Flow Rate Fraction of Inspired Oxygen 12/21/23 05:30 12/21/23 05:35 12/21/23 05:40 Temperature 99.0 F 99.0 F 98.8 F Pulse Rate 79 80 79 Respiratory Rate 15 16 13 Blood Pressure Pulse Oximetry 96 96 96 Oxygen Delivery Method Oxygen Flow Rate Fraction of Inspired Oxygen 12/21/23 05:45 12/21/23 05:50 12/21/23 05:55 Temperature 98.8 F 98.8 F 98.8 F Pulse Rate 78 77 80 Respiratory Rate 40 H 17 23 Blood Pressure Pulse Oximetry 97 97 97 Oxygen Delivery Method Oxygen Flow Rate Fraction of Inspired Oxygen 12/21/23 06:00 12/21/23 06:00 12/21/23 06:05 Temperature 98.6 F 98.6 F Pulse Rate 75 74 Respiratory Rate 24 18 Blood Pressure 106/60 Pulse Oximetry 96 98 Oxygen Delivery Method Oxygen Flow Rate Fraction of Inspired Oxygen 12/21/23 06:10 12/21/23 06:15 12/21/23 06:20 Temperature 98.4 F 98.6 F 98.6 F Pulse Rate 74 74 76 Respiratory Rate 12 14 20 Blood Pressure Pulse Oximetry 97 97 97 Oxygen Delivery Method Oxygen Flow Rate Fraction of Inspired Oxygen 12/21/23 06:25 12/21/23 06:30 12/21/23 06:35 Temperature 98.6 F 98.8 F 98.8 F Pulse Rate 74 76 78 Respiratory Rate 12 12 13 Blood Pressure Pulse Oximetry 98 97 97 Oxygen Delivery Method Oxygen Flow Rate Fraction of Inspired Oxygen 12/21/23 06:40 12/21/23 06:45 12/21/23 06:50 Temperature 98.4 F 98.6 F 98.6 F Pulse Rate 79 75 75 Respiratory Rate 14 16 11 L Blood Pressure Pulse Oximetry 96 97 97 Oxygen Delivery Method Oxygen Flow Rate Fraction of Inspired Oxygen 12/21/23 06:55 12/21/23 07:00 12/21/23 07:00 Temperature 98.8 F 98.8 F Pulse Rate 75 85 Respiratory Rate 12 13 Blood Pressure 127/61 Pulse Oximetry 98 98 Oxygen Delivery Method Oxygen Flow Rate Fraction of Inspired Oxygen 12/21/23 07:05 12/21/23 07:10 12/21/23 07:15 Temperature 98.6 F 98.6 F 98.6 F Pulse Rate 78 78 77 Respiratory Rate 19 10 L 18 Blood Pressure Pulse Oximetry 97 96 97 Oxygen Delivery Method Oxygen Flow Rate Fraction of Inspired Oxygen 12/21/23 07:20 12/21/23 07:25 12/21/23 07:30 Temperature 98.6 F 98.6 F 98.6 F Pulse Rate 79 82 78 Respiratory Rate 10 L 17 11 L Blood Pressure Pulse Oximetry 96 96 97 Oxygen Delivery Method Oxygen Flow Rate Fraction of Inspired Oxygen 12/21/23 07:35 12/21/23 07:40 12/21/23 07:45 Temperature 98.4 F 98.6 F 98.4 F Pulse Rate 75 73 74 Respiratory Rate 25 H 26 H 20 Blood Pressure Pulse Oximetry 96 96 100 Oxygen Delivery Method Oxygen Flow Rate Fraction of Inspired Oxygen 12/21/23 07:50 12/21/23 07:55 12/21/23 08:00 Temperature 98.4 F 98.6 F 98.6 F Pulse Rate 72 71 70 Respiratory Rate 20 14 11 L Blood Pressure Pulse Oximetry 98 97 96 Oxygen Delivery Method Oxygen Flow Rate Fraction of Inspired Oxygen 12/21/23 08:00 Temperature Pulse Rate Respiratory Rate Blood Pressure 110/70 Pulse Oximetry Oxygen Delivery Method Oxygen Flow Rate Fraction of Inspired Oxygen Fraction of Inspired Oxygen 24 SaO2/FiO2 Ratio 400 Oxygen Delivery Method Nasal Cannula Oxygen Flow Rate 2 Narrative Exam Narrative: NAD, fluent speech, cachectic. EOMI, anicteric sclera. Lungs clear, normal rate and effort. Heart is regular, without murmur. Abdomen is soft, nontender. No leg edema. Objective Labs 12/19/23 04:30 12/21/23 03:39 Labs: Laboratory Results - last 24 hr 12/20/23 12/21/23 11:07 03:39 ABG Sample Site Left brachial ABG pH 7.46 H ABG pCO2 46.8 H ABG pO2 58 L ABG HCO3 33 H ABG Total CO2 35 H ABG O2 Saturation 91 L ABG Base Excess 10.0 H FiO2 28 Sodium 128 L Potassium 3.4 Chloride 91 L Carbon Dioxide 37 H BUN 9 Creatinine 0.28 L Estimated GFR > 60 BUN/Creatinine Ratio 32.1 H Glucose 104 Calcium 7.8 L PFSH Medical History Tracheostomy in place Sepsis Muscle pain Foot pain Ankle pain Chronic back pain Acid reflux Tobacco use disorder, moderate, in early remission Hypertension Ankylosing spondylitis Alcohol abuse Ankylosing spondylitis (1985) GERD (gastroesophageal reflux disease) Hypertension Fracture cervical vertebra-closed Surgical History Status post incision and drainage History of open reduction and internal fixation (ORIF) procedure (2005) Status post colonoscopy (2012) History of tonsillectomy Family History Father No problems noted. Mother Cancer Other Alcoholism Colorectal cancer Social History household members: family Smoking Status: Current every day smoker Assessment & Plan Assessment & Plan narrative: 1. Acute hypoxemic respiratory failure, POA and improving. -secondary to possible aspiration pneumonia, sepsis. May have component of chronic respiratory failure with presenting adeno and rhinoviral infections as well. -intubated on admit, tube exchanged 12/15. -past H/O tracheostomy. Will extubate today, if need for reintubation will likely need tracheostomy and recommend transfer if that happens. -continues on meropenem and Vanc and azithromycin. Can discontinue vanco tonight if no more fever, narrow from meropenem to ceftriaxone given no pos cultures -replaced ET tube 12/15 due to cuff leak -slow improvement daily -low likelihood of TB. 2. Septic shock, POA and improving. -cont pressor support if needed, maintain MAP > 65 -PCR + adenovirus, + entero/rhino, +nasal MRSA -blood cultures neg so far -Vanc/cefepime -stress dose steroids now completed -wean from norepinephrine as tolerated 3. Acute metabolic encephalopathy, POA and resolved. -secondary to opiod o.d., sepsis, hyponatremia -tox screen + methamphetamine 4. Acute hyponatremia, POA and improving. -likely SIADH -urine Na 66, urine osm pending -continue salt tabs via feeding tube. Na 129 today. Had gotten 3% NS on presentation. 5. Severe protein calorie malnutrition, POA and active. -initiated tube feeds -platen press operator apprentice consult -IV famotidine bid for GI prophylaxis -speech eval after extubation today 6. Hypomagnesemia, hypokalemia, POA and improving. - MgSO4, K-riders -recheck daily. Electrolyte replacement protocol. 7. DM 2, POA and active. -cont SC insulin. - Goal BS < 180 Plan: -wean Precedex -Add HS seroquel for sleep -Add flexaril prn -Stop Vanco -wean Meropenem to Ceftriaxone -PT eval, out of bed. -Speech eval. Time Spent With Patient Time with patient: 30 to 49 minutes with 50% spent counseling/coordinating care Quality VTE Deep Vein Thrombosis/Pulmonary Embolism Present on Admission: No
[2023-12-21] MEDS: CYCLOBENZAPRINE 10 MG TABLET 5 MG PO (09:13)
[2023-12-21] MEDS: cefTRIAXone 1,000 MG in SODIUM CHLORIDE 0.9% 100 ML 200 MG IV (09:13)
--- NOTE | 2023-12-21 11:22 | CM.DPC ---
DCP Cont. Reviewed EMR and team rounds for status updates. Pt is now extubated, on nasal cannula and room air, doing well at this time. Will continue to monitor for final d/c recommendations for disposition.
--- NOTE | 2023-12-21 11:43 | ST.IPCSEOM ---
Visit Care Team Role Provider Type Yuliya Morin MD Primary Care Provider Non-Staff Specialty: Family Practice Address: [id number] [place] [address], [id number] Email: Jonathan Hines MD Other Providers Physician Specialty: Medical Address: Phone: Fax: Email: Greta Boyer MD Other Providers Physician Specialty: Medical Address: Phone: Fax: Email: Dre Saucedo MD Other Providers Physician Specialty: Medical Address: [address] [place], [address] Phone: Fax: Email: Jean Kim MD Other Providers Physician Specialty: Internal Medicine Address: Phone: Fax: Email: Rico Ribeiro MD Other Providers Physician Specialty: Medical Address: Phone: Fax: Email: Samira Camargo MD Other Providers Physician Specialty: Anesthesiology Internal Medicine Address: [address] [place] [address], [phone] Fax: Email: [email or web address] Mati Fu MD Other Providers Physician Specialty: Internal Medicine Address: [address] [place], [address] Phone: Fax: Email: [email or web address] Kb Anaya MD Other Providers Physician Specialty: Internal Medicine Address: Phone: Fax: Email: Ghanshyam Oakes MD Other Providers Physician Specialty: Medical Address: Phone: Fax: Email: Chad Whitmore MD Other Providers Physician Specialty: Internal Medicine Address: [address] [place], [address] Phone: Fax: Email: Rodrigo Tate MD Other Providers Physician Specialty: Medical Address: [address], [address] Phone: Fax: Email: Shereen George MD Other Providers Physician Specialty: Medical Address: Phone: Fax: Email: Lisa Alatorre Other Providers Physician Specialty: Medical Address: Phone: Fax: Email: Elsie Nelson MD Other Providers Physician Specialty: Internal Medicine Address: Phone: Fax: Email: Freya Ambrocio MD Emergency Provider Physician Referring Provider Specialty: Emergency Medicine Address: [address] [facility] [place], [address] Email: [email or web address], [email or web address] Admit Provider Physician Attending Provider Specialty: Internal Medicine Address: [address] [place] [address], [address] Email: [email or web address] Current Diagnoses Sepsis, unspecified organism (12/14/23) Past Medical History (Last Reviewed 12/14/23 @ 12:35 by Freya Ambrocio MD) Acid reflux (Medical) Alcohol abuse (Social Hx) Abstinent 2005 Ankle pain (Medical) Ankylosing spondylitis (Medical 1985) Ankylosing spondylitis (Medical) Chronic back pain (Medical) Foot pain (Medical) Fracture cervical vertebra-closed (Medical) GERD (gastroesophageal reflux disease) (Medical) Hypertension (Medical) Hypertension (Medical) Muscle pain (Medical) Sepsis (Medical) Tobacco use disorder, moderate, in early remission (Medical) Tracheostomy in place (Medical) Speech-Language Pathology Swallow Evaluation [facility] Clinical Swallow Evaluation Start: 12/21/23 11:22 Freq: Status: Active Protocol: Document 12/21/23 11:22 MG (Rec: 12/21/23 11:43 MG [id number]) Clinical Swallow Evaluation Session Time Visit Start Time 10:05 Visit Stop Time 10:40 Total Visit Minutes 35 Visit Information Visit Number 1 Setting Assessment Location Acute Care Visit Type Note Type Initial evaluation Next Note Type Next Note Type Treatment Note Patient Information Identification Type Name,Wristband History Per H&P: is a 63yo M with PMH of opioid dependence, ankylosing spondylitis, tobacco use, alcohol use, GERD , HTN, and previous sepsis with PNA requiring intubation then trach/PEG in 2022 who presents with altered mental status and unable to protect airway after smoking percocets . Patient is intubated. Per his neice he was at home and hasn't been feeling well the past several days with a cough . He then somehow obtained percocets and smoked them and became unresponsive. Was given narcan by EMS in the field and had improvement in AMS. In the ED patient satting in the 50's so was intubated. Unable to obtain further history as patient is intubated and family not available. Pt was also receiving tube feedings. Pt was extubated on 12/20/2023 at 11:30 and was ordered a diet of level 0 - thin liquids and level 6 - soft and bite size solids. Currently using nasal cannula for oxygen supplementation. Subjective Observations Pt was resting in bed upon [facility] arrival. Per nurse, the pt ate breakfast and there was no overt s/sx of aspiration at that time. The pt has been taking some oral medication either crushed or cut with carrier and has not had any difficulties with this. Speech ordered to provide a clinical swallow evaluation to assess swallowing abilities and if current diet is appropriate for the pt. Pt has very poor dentition (missing and decaying teeth). Per the pt, he typically eats cereal, noodles, spaghetti, and mashed potatoes for meals. The pt reports that he doesn't really eat too much and forgets to eat often. Reported by Patient/Caregiver Other Symptoms Other Comment Pt was recently extubated and put on an oral diet vs tube fed Current Diet Soft & Bite-sized (IDDSI 6) Baseline Feeding Method Needs some assistance The IDDSI Framework Protocol: IDDSI.1 Objective Assessment Mental Status Responsive,Cooperative, Lethargic Oral Integrity Xerostomia/Dry mouth Dentition Missing teeth,Decay,Inadequate dentition for mastication Lip Function Mild impairment Observation of Lips at Rest Symmetrical Pucker Reduced range of motion, Reduced strength Lip Retraction Reduced range of motion Alternating Pucker/Lip Retraction Reduced range of motion Tongue Function Mild impairment Observations of Tongue at Rest Within normal limits Tongue Protrusion Reduced range of motion, Reduced strength Tongue Retraction Reduced range of motion, Reduced strength Tongue Lateralization Reduced range of motion, Reduced strength Jaw Function Within normal limits Observation of Jaw at Rest Within normal limits Jaw Opening Within normal limits Jaw Closing Within normal limits Jaw Lateralization Within normal limits Jaw Protrusion Within normal limits Jaw Retraction Within normal limits Hard/Soft Palate Function Within normal limits Observations of Hard/Soft Palate Within normal limits Nasality Within normal limits Respiratory Sufficiency Within normal limits Comment Weaknesses noted due to reduced strength of tongue and lips. Missing and decayed teeth impact mastication of solids. Food and Liquid Trials Position During Assessment Slightly reclined,In bed Liquids Trialed Ice chips,Thin (IDDSI 0) Solid Trials Purred (IDDSI 4),Minced & Moist (IDDSI 5),Soft & Bite- sized (IDDSI 6) Administration Type Cup single sip,Controlled cup sip,Cup consecutive sips,Straw ,Dependent feeding Oral Impairment Mildly impaired Oral Phase Comments No anterior spillage noted. Pt could pucker lips around straw to sip water. Mastication appeared effective but slow; no residue observed on all solid trials. Pharyngeal Impairment Mildly impaired Pharyngeal Phase Comments Laryngeal palpation resulted in adequate hyolaryngeal movement and mild reduced anterior hyoid excursion. No overt s/sx of aspiration are noted during all solid and liquid trials. No wet/gurgly voice observed. Fatigue/Endurance Moderate fatigue Comment Per pt and nurse, the pt did not sleep last night. Pt appeared modreately fatigued during evaluation. The IDDSI Framework Protocol: IDDSI.1 Findings Swallowing Function Oropharyngeal phase dysphagia Severity of Swallow Impairment Mildly-moderately impaired Contributing Factors to Swallow Reduced alertness or attention Impairment ,Reduced oral strength/ coordination/sensation, Mastication inefficiency, Reduced laryngeal excursion Prognosis Fair Based on Cognitive status,Family support,History of aspiration/ aspiration pneumonia, Comorbidities,Duration of symptoms/severity Impact on Safety and Functioning Risk for aspiration,Risk for inadequate nutrition/hydration Recommendations Instrumental Assessment No Swallowing Treatment Yes Recommended Solids Soft & Bite-sized (IDDSI 6) Recommended Liquids Thin (IDDSI 0) Safety Precautions/Swallowing Feed only when alert,Remain Recommendations upright (90 degrees) during all oral intake,Small bites and sips when eating,Slow rate ; swallow between bites, Alternate liquids and solids Medication Recommendations Whole in Carrier,Crushed in Carrier,Other Discharge Recommendations jail facility,alf care facility Education Patient/Caregiver Education Described results of evaluation,Patient expressed understanding of evaluation, Patient expressed agreement with goals & treatment plans, Patient expressed understanding of safety precautions,Patient expressed understanding of feeding recommendations,Patient requires further education/ training Goals Short-term Goals Pt will participate in further education re: swallowing mechanism, diet recommendations, safe swallowing strategies Pt will utilize safe swallowing strategies with minimal reminders (visual and/ or verbal) Long-term Goals Pt will tolerate least restrictive diet and report no overt s/sx of aspiration Pt will utilize safe swallowing strategies independently
--- NOTE | 2023-12-21 11:45 | PT.IIE ---
Current Diagnoses Sepsis, unspecified organism (12/14/23) Surgical History (Last Reviewed 12/14/23 @ 12:35 by Freya Ambrocio MD) History of open reduction and internal fixation (ORIF) procedure (2005) History of tonsillectomy Status post colonoscopy (2012) Status post incision and drainage Medical History (Last Reviewed 12/14/23 @ 12:35 by Freya Ambrocio MD) Acid reflux Alcohol abuse Ankle pain Ankylosing spondylitis (1985) Ankylosing spondylitis Chronic back pain Foot pain Fracture cervical vertebra-closed GERD (gastroesophageal reflux disease) Hypertension Hypertension Muscle pain Sepsis Tobacco use disorder, moderate, in early remission Tracheostomy in place Physical Therapy Inpatient Evaluation/Re-Eval M1 PT/OT-IP Prior Functional Status Start: 12/21/23 13:07 Freq: NEEDED Status: Active Protocol: Document 12/21/23 11:45 AB (Rec: 12/21/23 13:24 AB [id number]) Medical Review Prior Functional Status Medical History Reviewed Yes Communication able to make needs known Mobility and Gait pt stated that he was independent with all mobilities and ambualtion without AD but occasionally uses a FWW depending on how steady he feels Social History Household Members family Living Arrangements House Number of Floors (Floors) One Floor Number of Stairs To Enter/Railing? 1 step to enter Home Environment Standard Height Toilet,Walk in Shower Home Equipment Front Wheel Walker,Shower Seat with Backrest,Hand Held Shower,Grab Bars Near Toilet, Grab Bars In Shower Additional Social History Comment pt has his [id number]-sk-clg and niece at home to assist him M2 PT-IP Current Condition Start: 12/21/23 13:07 Freq: NEEDED Status: Active Protocol: Document 12/21/23 11:45 AB (Rec: 12/21/23 13:24 AB [id number]) Physical Therapy Current Condition Current Condition Evaluation Date 12/21/23 Treatment Diagnosis respiratory failure; septic shock; difficulty in walking Onset Date 12/14/23 M3 PT-IP Subjective Start: 12/21/23 13:07 Freq: NEEDED Status: Active Protocol: Document 12/21/23 11:45 AB (Rec: 12/21/23 13:24 AB [id number]) Subjective Physical Therapy Visit Type Type Initial Evaluation Visit Start Time 11:45 Visit Stop Time 12:25 Number of BIKE TECHNICIAN Visits 0 Therapy Pain Assessment Pain When Pain Assessed At Rest Location Bilateral Leg Scale Used pain scale not stated Description Chronic,Tingling Pain Management Techniques Distraction M4 PT-IP Mobility and Gait Start: 12/21/23 13:07 Freq: NEEDED Status: Active Protocol: Document 12/21/23 11:45 AB (Rec: 12/21/23 13:24 AB [id number]) PT-Bed Mobility Assessment Supine to Sit Supine to Sit Maximum Assistance,Head of Bed Elevated,Bedrails PT-Transfer Assessment Sit to and From Stand Sit to and from Stand Maximum Assistance,2 Person Assistance,Use of Upper Extremities Equipment Transfer Assistive Device Gait Belt,Front Wheeled Walker Orthotic/Prosthetic Devices or Brace: No Transfers Transfer Destination Chair Transfer Technique Stand Step Pivot Transfer Ability Level of Assist Maximum Assistance,2 Person Assistance,Use of Upper Extremities Comments Mobility Comments pt supine in bed. obtained PLOF and home set up. BP: 118 /73 O2 sat at RA 89-94 at rest; with O2 on at 1L/min: 94 -100 at rest and stable with activity O2 on. WV: increases to 124 with activity. completed supine to sit max A and max cues and mod A for sitting balance on EOB. c/o dizziness in sitting: BP: 128/ 78. completed sit to stand max A x 2 and max cues and step transfer to chair using FWW max A x 2 and max cues. requiring increase assistance midway with transfers with pt c/o feeling weak and increasing trunk guarding requiring PT to pivot pt over the chair. positioned pt on the chair. call light and table placed within reach. BP checked: 144/88. nurse in room and assisted pt as well. Gait Assessment Comments Gait Comments unable at this time PT-Balance Assessment Sitting Balance and Reactions Static Sitting Balance Ability Fair Dynamic Sitting Balance Ability Fair Standing Balance and Reactions Static Standing Balance Ability Poor Dynamic Standing Balance Ability Poor Device Used FWW M5 PT-IP Objective Assessments Start: 12/21/23 13:07 Freq: NEEDED Status: Active Protocol: Document 12/21/23 11:45 AB (Rec: 12/21/23 13:24 AB [id number]) Orientation Orientation/Cognition Level of Alertness Alert Orientation Name,Place,Situation Safety Awareness Decreased Safety Awareness Gross Range of Motion Lower Extremity ROM Assessment Within Functional Limits Strength Comments Strength Comments RLE: 3+/5 LLE: 4-/5 Sensation Assessment Comments Sensation Comments c/o chronic tingling on BLE Muscle Tone Muscle Tone WNL Yes M6 PT-IP Treatment Start: 12/21/23 13:07 Freq: NEEDED Status: Active Protocol: Document 12/21/23 11:45 AB (Rec: 12/21/23 13:24 AB [id number]) Physical Therapy Treatment Education Education Provided Safety M7 PT-IP Assessment and Plan Start: 12/21/23 13:07 Freq: NEEDED Status: Active Protocol: Document 12/21/23 11:45 AB (Rec: 12/21/23 13:24 AB [id number]) PT Summary Assessment and Plan Potential Rehabilitation Potential Fair Status of Condition at Evaluation Unstable Summary Impairments Pain,ROM,Strength,Balance, Coordination,Sensation,Tone, Cognition,Bed Mobility, Transfers,Gait,Activity Tolerance Assessment Summary pt is a 63 y/o M with h/o alcohol use disorder, tobacco abuse, polysubstance use, who presented to the ED for being unresponsive at home. pt admitted for septic shock and respiratory failure. pt intubated and was extubated . pt requiring max A for bed mobility and max A x 2 to transfers using fWW and unable to ambulate at this time. pt will require SNF rehab at this time depending on progress. will continue to assess. Goals Bed Mobility Goal Minimal Assistance Transfer Goal Minimal Assistance,Front Wheeled Walker Gait Goal Minimal Assistance,Front Wheel Walker Gait Distance 50 Other Goals improve bed mobility, transfers and ambulation using LRAD 150 ft mod I up/down 1 step using LRAD/ without AD sBA Days to Meet Goals 10 Frequency of Treatment Frequency Of Treatment Once a Day Treatment Plan Physical Therapy Treatment Plan Bed Mobility Training,Transfer Training,Gait Training, Therapeutic Exercise,Balance Retraining,Discharge Planning, Hot or Cold Pack,Neuromuscular Re-ed,Coordination Retraining ,Manual Therapy Precautions Other Precautions falls; MRSA nares Recommendations To Nursing Amount of Assist Needed 2 Person Assist Discharge Recommendations PT Discharge Recommendations SNF Rehab Transportation Needs at Discharge Wheelchair/Cabulance
[2023-12-21] MEDS: SODIUM CHLORIDE 0.9% 1,000 ML 125 ML IV ×2 (14:57→23:02)
[2023-12-21] MEDS: AZITHROMYCIN 500 MG in DEXTROSE 5% IN WATER 250 ML 250 MG IV (15:54)
--- NOTE | 2023-12-21 15:54 | P.TELICUPN_ITS ---
Subjective Subjective IF CAMERA ACTIVATED, patient seen via real-time interactive audiovisual communication: Camera activated Consent obtained for tele-cessation systems outreach specialist care: Yes Patient Location: ICU Provider location (State): [place] Other participants/roles: RN Interval history: Following up on this 63 years old male with history of ankylosing spondylitis, h/o of tracheostomy in the past, and alcohol abuse admitted 12/14/23 with PNA, septic shock, hyponatremia, and acute respiratory failure hypoxic requiring intubation due to methamphetamine abuse, adenovirus and rhinovirus and possible superimposed bacterial PNA. Pul CTA (-) for PE 12/18. Extubated 12/20 day shift. Initially required HFNC post-extubation INTERIM EVENTS: HFNC weaned to NC PT went well Off NE gtt Current Medications Current Medications Medications: Home Medications albuterol 90 mcg/actuation aerosol inhaler 90 mcg inhalation PRN PRN Shortness Of Breath 12/14/23 [History Confirmed 12/14/23] Visit Medications (administered) Generic Name Dose Route Start Last Admin Trade Name Freq PRN Reason Stop Dose Admin Acetaminophen 650 mg 12/14/23 15:39 12/21/23 05:43 Acetaminophen 325 Mg Tablet PO 650 mg Q6H PRN Administration Fever/Mild Pain (1-3) Albuterol 2.5 mg 12/18/23 17:24 12/18/23 18:07 Albuterol 2.5 Mg/3 Ml Neb (Adult) INH 2.5 mg [id number] PRN Administration Shortness Of Breath Cyclobenzaprine HCl 5 mg 12/21/23 08:23 12/21/23 09:13 Cyclobenzaprine 10 Mg Tablet PO 5 mg Q8HR PRN Administration spasm Fentanyl 75 mcg 12/19/23 15:45 12/19/23 15:59 Fentanyl 75 Mcg/Patch TOP 75 mcg Q72H JYOTI Administration Heparin Sodium (Porcine) 5,000 unit 12/20/23 22:00 12/21/23 14:19 Heparin 5,000 Unit/Ml Vial SUBCUT 5,000 unit Q8HR JYOTI Administration Hydromorphone HCl 0.5 mg 12/20/23 20:45 12/21/23 05:43 Hydromorphone 0.5 Mg Inj IV 0.5 mg Q4H PRN Administration Pain, Severe (7-10) dexmedeTOMIDine in 0.9 % NaCL 400 mcg in 100 mls @ 2.336 mls/hr 12/14/23 15:45 12/21/23 10:30 Precedex IV 0 mcg/kg/hr TITRATE JYOTI 0 mls/hr Titration 0.2 MCG/KG/HR NOREPINEPHRINE BITARTRATE/D5W 4 mg in 250 mls @ 17.52 mls/hr 12/14/23 15:43 12/21/23 12:30 Levophed IV 0 mcg/kg/min TITRATE JYOTI 0 mls/hr Titration Protocol 0.1 MCG/KG/MIN Azithromycin 500 mg/ Dextrose 250 mls @ 250 mls/hr 12/17/23 16:00 12/20/23 17:10 IV 12/23/23 16:59 Infused Q24H JYOTI Infusion Ceftriaxone Sodium 1,000 mg/ 100 mls @ 200 mls/hr 12/21/23 09:00 12/21/23 09:13 Sodium Chloride IV 200 mls/hr Q24H JYOTI Administration Sodium Chloride 1,000 mls @ 125 mls/hr 12/21/23 14:45 12/21/23 14:57 Normal Saline 0.9% IV 125 mls/hr CONT JYOTI Administration Pantoprazole Sodium 40 mg 12/16/23 10:00 12/21/23 08:23 Pantoprazole 40 Mg Vial IV 40 mg BID JYOTI Administration Sodium Chloride 10 ml 12/15/23 21:00 12/21/23 08:23 Sodium Chloride 0.9% Flush IV 10 ml BID JYOTI Administration Objective Ventilator Parameters: Ventilator Settings FiO2 28 RT Vent Frequency 16 Ventilator Tidal Volume 430 Exhaled Vt/kg IBW 7.5 Positive End Expiratory 5 Pressure Ventilator Pressure Support 8 Inspiratory Phase Time 0.95 I:E Ratio 1:2.9 Patient Position HOB >= 30 degrees Labs 12/19/23 04:30 12/21/23 03:39 Labs: Laboratory Results - last 24 hr 12/21/23 03:39 Sodium 128 L Potassium 3.4 Chloride 91 L Carbon Dioxide 37 H BUN 9 Creatinine 0.28 L Estimated GFR > 60 BUN/Creatinine Ratio 32.1 H Glucose 104 Calcium 7.8 L Exam Vital Signs (past 8 hours): - 12/21/23 07:55 12/21/23 08:00 12/21/23 08:00 Temperature 98.6 F 98.6 F Pulse Rate 71 70 Respiratory Rate 14 11 L Blood Pressure 110/70 Pulse Oximetry 97 96 Oxygen Delivery Method Oxygen Flow Rate 12/21/23 08:00 12/21/23 08:05 12/21/23 08:10 Temperature 98.6 F 98.6 F Pulse Rate 72 73 Respiratory Rate 17 12 Blood Pressure Pulse Oximetry 96 96 Oxygen Delivery Method Nasal Cannula Oxygen Flow Rate 12/21/23 08:15 12/21/23 08:20 12/21/23 08:25 Temperature 98.6 F 98.6 F 98.6 F Pulse Rate 73 81 101 H Respiratory Rate 12 22 20 Blood Pressure Pulse Oximetry 97 93 91 Oxygen Delivery Method Oxygen Flow Rate 12/21/23 08:30 12/21/23 08:35 12/21/23 08:40 Temperature 98.6 F 98.6 F 98.6 F Pulse Rate 100 H 97 H 96 H Respiratory Rate 20 21 16 Blood Pressure Pulse Oximetry 90 L 88 L 86 L Oxygen Delivery Method Oxygen Flow Rate 12/21/23 08:45 12/21/23 08:50 12/21/23 08:55 Temperature 98.6 F 98.6 F 98.8 F Pulse Rate 90 91 H 99 H Respiratory Rate 20 19 19 Blood Pressure Pulse Oximetry 91 92 91 Oxygen Delivery Method Oxygen Flow Rate 12/21/23 09:00 12/21/23 09:00 12/21/23 09:05 Temperature 98.8 F 98.8 F Pulse Rate 103 H 106 H Respiratory Rate 15 17 Blood Pressure 108/67 Pulse Oximetry 91 91 Oxygen Delivery Method Oxygen Flow Rate 12/21/23 09:10 12/21/23 09:15 12/21/23 09:20 Temperature 98.8 F 98.8 F 98.8 F Pulse Rate 92 H 99 H 97 H Respiratory Rate 13 14 14 Blood Pressure Pulse Oximetry 95 97 97 Oxygen Delivery Method Oxygen Flow Rate 12/21/23 09:25 12/21/23 09:30 12/21/23 09:35 Temperature 98.8 F 98.6 F 98.8 F Pulse Rate 99 H 97 H 96 H Respiratory Rate 16 12 12 Blood Pressure Pulse Oximetry 96 98 100 Oxygen Delivery Method Oxygen Flow Rate 12/21/23 09:40 12/21/23 09:45 12/21/23 09:50 Temperature 98.8 F 98.6 F 98.8 F Pulse Rate 95 H 98 H 94 H Respiratory Rate 17 14 14 Blood Pressure Pulse Oximetry 99 97 99 Oxygen Delivery Method Oxygen Flow Rate 12/21/23 09:55 12/21/23 10:00 12/21/23 10:00 Temperature 98.8 F 98.8 F Pulse Rate 91 H 93 H Respiratory Rate 12 13 Blood Pressure 119/65 Pulse Oximetry 98 98 Oxygen Delivery Method Oxygen Flow Rate 12/21/23 10:05 12/21/23 10:10 12/21/23 10:15 Temperature 98.8 F 98.8 F 99.0 F Pulse Rate 93 H 96 H 103 H Respiratory Rate 15 22 17 Blood Pressure Pulse Oximetry 99 98 98 Oxygen Delivery Method Oxygen Flow Rate 12/21/23 10:20 12/21/23 10:25 12/21/23 10:30 Temperature 99.0 F 99.0 F 99.0 F Pulse Rate 98 H 88 85 Respiratory Rate 17 19 19 Blood Pressure Pulse Oximetry 100 100 100 Oxygen Delivery Method Oxygen Flow Rate 12/21/23 10:35 12/21/23 10:40 12/21/23 10:45 Temperature 99.0 F 99.0 F 99.0 F Pulse Rate 87 90 95 H Respiratory Rate 18 10 L 12 Blood Pressure Pulse Oximetry 99 97 97 Oxygen Delivery Method Oxygen Flow Rate 12/21/23 10:50 12/21/23 10:55 12/21/23 11:00 Temperature 99.1 F 99.1 F Pulse Rate 98 H 98 H Respiratory Rate 12 11 L Blood Pressure 118/71 Pulse Oximetry 97 98 Oxygen Delivery Method Oxygen Flow Rate 12/21/23 11:00 12/21/23 11:05 12/21/23 11:10 Temperature 99.1 F 99.1 F 99.1 F Pulse Rate 100 H 98 H 101 H Respiratory Rate 14 14 10 L Blood Pressure Pulse Oximetry 96 98 97 Oxygen Delivery Method Oxygen Flow Rate 12/21/23 11:15 12/21/23 11:20 12/21/23 11:25 Temperature 99.1 F 99.1 F 99.1 F Pulse Rate 104 H 104 H 103 H Respiratory Rate 14 13 18 Blood Pressure Pulse Oximetry 96 94 96 Oxygen Delivery Method Oxygen Flow Rate 12/21/23 11:30 12/21/23 11:35 12/21/23 11:40 Temperature 99.1 F 99.1 F 99.1 F Pulse Rate 108 H 99 H 101 H Respiratory Rate 14 14 12 Blood Pressure Pulse Oximetry 93 94 93 Oxygen Delivery Method Oxygen Flow Rate 12/21/23 11:45 12/21/23 11:50 12/21/23 11:55 Temperature 99.1 F 99.1 F 99.1 F Pulse Rate 99 H 98 H 102 H Respiratory Rate 14 19 18 Blood Pressure Pulse Oximetry 93 95 92 Oxygen Delivery Method Oxygen Flow Rate 12/21/23 11:56 12/21/23 11:56 12/21/23 12:00 Temperature 99.1 F Pulse Rate 102 H Respiratory Rate 15 Blood Pressure 128/78 Pulse Oximetry 94 Oxygen Delivery Method Nasal Cannula Oxygen Flow Rate 12/21/23 12:00 12/21/23 12:05 12/21/23 12:10 Temperature 99.1 F 99.1 F Pulse Rate 101 H 100 H 113 H Respiratory Rate 16 16 27 H Blood Pressure Pulse Oximetry 89 L Oxygen Delivery Method Oxygen Flow Rate 12/21/23 12:11 12/21/23 12:11 12/21/23 12:14 Temperature Pulse Rate 113 H 128 H Respiratory Rate 23 36 H Blood Pressure 148/88 H Pulse Oximetry 93 Oxygen Delivery Method Oxygen Flow Rate 12/21/23 12:14 12/21/23 12:15 12/21/23 12:20 Temperature Pulse Rate 118 H 118 H Respiratory Rate 31 H 15 Blood Pressure 139/88 Pulse Oximetry 93 98 Oxygen Delivery Method Oxygen Flow Rate 12/21/23 12:25 12/21/23 12:30 12/21/23 12:35 Temperature Pulse Rate 125 H 130 H 129 H Respiratory Rate 20 15 17 Blood Pressure Pulse Oximetry 96 94 96 Oxygen Delivery Method Oxygen Flow Rate 12/21/23 12:38 12/21/23 12:38 12/21/23 12:40 Temperature Pulse Rate 128 H 129 H Respiratory Rate 18 20 Blood Pressure 115/75 Pulse Oximetry 96 96 Oxygen Delivery Method Oxygen Flow Rate 12/21/23 12:45 12/21/23 12:50 12/21/23 12:55 Temperature Pulse Rate 129 H 138 H 129 H Respiratory Rate 17 13 17 Blood Pressure Pulse Oximetry 96 96 95 Oxygen Delivery Method Oxygen Flow Rate 12/21/23 13:00 12/21/23 13:05 12/21/23 13:07 Temperature Pulse Rate 124 H 121 H Respiratory Rate 27 H 14 Blood Pressure 104/65 Pulse Oximetry 96 97 Oxygen Delivery Method Oxygen Flow Rate 12/21/23 13:07 12/21/23 13:10 12/21/23 13:15 Temperature 99.0 F 99.1 F 99.1 F Pulse Rate 115 H 115 H 118 H Respiratory Rate 18 14 26 H Blood Pressure Pulse Oximetry 79 L 97 100 Oxygen Delivery Method Oxygen Flow Rate 12/21/23 13:15 12/21/23 13:20 12/21/23 13:25 Temperature 99.1 F 98.6 F Pulse Rate 120 H 123 H Respiratory Rate 22 28 H Blood Pressure 96/58 L Pulse Oximetry 100 97 Oxygen Delivery Method Oxygen Flow Rate 12/21/23 13:30 12/21/23 13:35 12/21/23 13:40 Temperature 98.8 F 98.8 F 98.4 F Pulse Rate 118 H 112 H 115 H Respiratory Rate 16 16 21 Blood Pressure Pulse Oximetry 98 97 98 Oxygen Delivery Method Oxygen Flow Rate 12/21/23 13:45 12/21/23 13:50 12/21/23 13:55 Temperature 98.6 F 98.8 F 98.6 F Pulse Rate 107 H 108 H 113 H Respiratory Rate 18 13 14 Blood Pressure Pulse Oximetry 99 100 100 Oxygen Delivery Method Oxygen Flow Rate 12/21/23 14:00 12/21/23 14:05 12/21/23 14:10 Temperature 98.6 F 98.8 F 99.0 F Pulse Rate 114 H 108 H 121 H Respiratory Rate 15 12 16 Blood Pressure Pulse Oximetry 98 97 99 Oxygen Delivery Method Oxygen Flow Rate 12/21/23 14:15 12/21/23 14:20 12/21/23 14:21 Temperature 99.0 F 99.0 F Pulse Rate 113 H 116 H Respiratory Rate 13 13 Blood Pressure 99/64 Pulse Oximetry 100 97 Oxygen Delivery Method Oxygen Flow Rate 12/21/23 14:21 12/21/23 14:25 12/21/23 14:30 Temperature 99.0 F 99.0 F 99.0 F Pulse Rate 113 H 115 H 120 H Respiratory Rate 16 11 L 14 Blood Pressure Pulse Oximetry 97 98 98 Oxygen Delivery Method Oxygen Flow Rate 12/21/23 14:30 12/21/23 14:35 12/21/23 14:40 Temperature 99.0 F 99.0 F Pulse Rate 116 H 111 H Respiratory Rate 12 11 L Blood Pressure 111/68 Pulse Oximetry 97 99 Oxygen Delivery Method Oxygen Flow Rate 12/21/23 14:45 12/21/23 14:50 12/21/23 14:55 Temperature 99.0 F 99.0 F 99.0 F Pulse Rate 113 H 117 H 124 H Respiratory Rate 11 L 11 L 14 Blood Pressure Pulse Oximetry 99 97 97 Oxygen Delivery Method Oxygen Flow Rate 12/21/23 15:00 12/21/23 15:00 12/21/23 15:00 Temperature 99.0 F Pulse Rate 123 H 118 H Respiratory Rate 14 16 Blood Pressure 107/59 L 107/59 L Pulse Oximetry 95 98 Oxygen Delivery Method Oxygen Flow Rate 1 12/21/23 15:05 12/21/23 15:10 Temperature 98.8 F 98.8 F Pulse Rate 120 H 115 H Respiratory Rate 13 12 Blood Pressure Pulse Oximetry 97 100 Oxygen Delivery Method Oxygen Flow Rate Fraction of Inspired Oxygen 24 SaO2/FiO2 Ratio 400 Oxygen Delivery Method Nasal Cannula Oxygen Flow Rate 1 Const General: comfortable Nutritional Appearance: malnourished Resp Effort & Inspection: normal respiratory effort Cardio Rate: tachycardic Rhythm: regular rhythm Neuro General: patient alert and patient awake Quality TeleICU VTE Deep Vein Thrombosis/Pulmonary Embolism Present on Admission: No Assessment & Plan Assessment and plan (1) Acute hypoxic on chronic hypercapnic respiratory failure: Problem details: Extubated and weaned to NC Status: Acute Plan: -Continue mobilization -Continue ceftriaxone/azithromycin -Continue bronchodilators (2) Protein calorie malnutrition: Qualifiers: Protein-calorie malnutrition severity: severe Qualified Code(s): E43 - Unspecified severe protein-calorie malnutrition Status: Acute Plan: -Promote oral intake and follow -Once PO intake reliable, would change azithromycin to PO (3) RSV (respiratory syncytial virus pneumonia): Status: Acute Plan: See problem #1 (4) Adenovirus pneumonia: Status: Acute Plan: See problem #1 (5) History of methamphetamine abuse: Status: Acute Plan: -See problem #6 (6) Mixed origin delirium: Status: Acute Plan: -Continue Seroquel (7) Hyponatremia: Status: Acute Plan: -SIADH suspected; trend Assessment & Plan narrative: Best practices: PPI and heparin in place Time Spent With Patient Time with patient: less than 30 minutes
[2023-12-21] MEDS: HYDROMORPHONE 0.5 MG INJ 0.2 MG IV (16:52)
--- NOTE | 2023-12-21 17:31 | PC.NURSE ---
Cardiac Pt. up with PT approx. 1215, sat in chair for 45 minutes. Levophed gtt @ 21 ml/hr with significant increase in HR and BP noted with activity. Levophed gtt stopped approx. 1230, MAP maintained 70-75 throughout the shift without Levophed. HR noted to increase to ST 115-125, provider notified and new orders for NS @ 125 ml/hr. Pt. did not sleep last night, provider notifed and new orders received for Seroquel at HS.
[2023-12-21] MEDS: QUETIAPINE 25 MG TABLET PO (21:15)
[2023-12-22] VITALS (129 sets, daily range): BP systolic 103–149; BP diastolic 62–91; PULSE 93–117; RESP 5–34; TEMP 36.4–37.3; O2SAT 86–100
[2023-12-22] MEDS: HYDROMORPHONE 0.5 MG INJ IV ×2 (00:23→21:00)
[2023-12-22] MEDS: HEPARIN 5,000 UNIT/ML VIAL 5000 UNIT SUBCUT ×3 (05:29→21:05)
[2023-12-22] MEDS: SODIUM CHLORIDE 0.9% 1,000 ML 125 ML IV ×2 (07:09→15:55)
--- NOTE | 2023-12-22 08:26 | P.PN_ITS ---
Subjective Subjective Interval history: Continued improvement. On O2 3 liter. Extubated 12/20. No chest pain, or dyspnea. No abdominal pain. Did well overnight. Exam Vital Signs (past 8 hours): - 12/22/23 00:30 12/22/23 00:35 12/22/23 00:40 Temperature 97.7 F 97.7 F 97.7 F Pulse Rate 106 H 106 H 107 H Respiratory Rate 10 L 14 12 Blood Pressure Pulse Oximetry 100 98 98 Oxygen Flow Rate 12/22/23 00:45 12/22/23 00:50 12/22/23 00:55 Temperature 97.7 F 97.9 F 97.9 F Pulse Rate 103 H 104 H 104 H Respiratory Rate 12 13 12 Blood Pressure Pulse Oximetry 98 99 100 Oxygen Flow Rate 12/22/23 01:00 12/22/23 01:05 12/22/23 01:10 Temperature 97.9 F 97.9 F 97.9 F Pulse Rate 113 H 101 H 101 H Respiratory Rate 30 H 10 L 11 L Blood Pressure Pulse Oximetry 100 99 100 Oxygen Flow Rate 12/22/23 01:15 12/22/23 01:20 12/22/23 01:25 Temperature 97.9 F 97.9 F 97.9 F Pulse Rate 101 H 100 H 102 H Respiratory Rate 11 L 6 L 14 Blood Pressure Pulse Oximetry 100 100 99 Oxygen Flow Rate 12/22/23 01:30 12/22/23 01:35 12/22/23 01:40 Temperature 97.9 F 97.9 F 97.9 F Pulse Rate 101 H 95 H 93 H Respiratory Rate 11 L 10 L 19 Blood Pressure Pulse Oximetry 99 100 100 Oxygen Flow Rate 12/22/23 01:45 12/22/23 01:50 12/22/23 01:55 Temperature 97.9 F 97.9 F 97.9 F Pulse Rate 94 H 96 H 101 H Respiratory Rate 11 L 10 L 11 L Blood Pressure Pulse Oximetry 100 100 100 Oxygen Flow Rate 12/22/23 02:00 12/22/23 02:05 12/22/23 02:10 Temperature 97.9 F 97.9 F 97.9 F Pulse Rate 99 H 101 H 103 H Respiratory Rate 11 L 11 L 21 Blood Pressure Pulse Oximetry 99 100 98 Oxygen Flow Rate 12/22/23 02:15 12/22/23 02:20 12/22/23 02:25 Temperature 97.9 F 97.9 F 97.9 F Pulse Rate 97 H 99 H 105 H Respiratory Rate 8 L 7 L 10 L Blood Pressure Pulse Oximetry 100 100 99 Oxygen Flow Rate 12/22/23 02:30 12/22/23 02:35 12/22/23 02:40 Temperature 97.9 F 97.9 F 97.9 F Pulse Rate 100 H 114 H 105 H Respiratory Rate 5 L 12 13 Blood Pressure Pulse Oximetry 100 99 98 Oxygen Flow Rate 12/22/23 02:45 12/22/23 02:50 12/22/23 02:55 Temperature 97.9 F 97.9 F 98.1 F Pulse Rate 103 H 105 H 101 H Respiratory Rate 14 16 12 Blood Pressure Pulse Oximetry 97 96 99 Oxygen Flow Rate 12/22/23 03:00 12/22/23 03:05 12/22/23 03:10 Temperature 98.1 F 98.1 F 98.1 F Pulse Rate 102 H 105 H 104 H Respiratory Rate 11 L 18 14 Blood Pressure Pulse Oximetry 100 99 99 Oxygen Flow Rate 12/22/23 03:15 12/22/23 03:20 12/22/23 03:25 Temperature 98.2 F 97.9 F 98.1 F Pulse Rate 99 H 103 H 101 H Respiratory Rate 8 L 12 13 Blood Pressure Pulse Oximetry 98 99 99 Oxygen Flow Rate 12/22/23 03:30 12/22/23 03:30 12/22/23 03:35 Temperature 98.1 F 98.1 F Pulse Rate 98 H 101 H Respiratory Rate 18 20 Blood Pressure 103/62 Pulse Oximetry 99 99 Oxygen Flow Rate 12/22/23 03:39 12/22/23 08:18 Temperature 98.1 F 99 F Pulse Rate 101 H 108 H Respiratory Rate 20 19 Blood Pressure 103/62 127/75 Pulse Oximetry 99 96 Oxygen Flow Rate 1 1 Fraction of Inspired Oxygen 24 SaO2/FiO2 Ratio 404 Oxygen Delivery Method Nasal Cannula Oxygen Flow Rate 1 Narrative Exam Narrative: NAD, soft and fluent speech. Underweight. EOMI, anicteric sclera Lungs clear, with normal rate Heart regular. Abdomen flat and soft. No leg edema. Objective Labs 12/22/23 09:11 12/21/23 03:39 PFSH Medical History Tracheostomy in place Sepsis Muscle pain Foot pain Ankle pain Chronic back pain Acid reflux Tobacco use disorder, moderate, in early remission Hypertension Ankylosing spondylitis Alcohol abuse Ankylosing spondylitis (1985) GERD (gastroesophageal reflux disease) Hypertension Fracture cervical vertebra-closed Surgical History Status post incision and drainage History of open reduction and internal fixation (ORIF) procedure (2005) Status post colonoscopy (2012) History of tonsillectomy Family History Father No problems noted. Mother Cancer Other Alcoholism Colorectal cancer Social History household members: family Smoking Status: Current every day smoker Assessment & Plan Assessment & Plan narrative: 1. Acute hypoxemic respiratory failure, POA and improving. -secondary to possible aspiration pneumonia, sepsis. May have component of chronic respiratory failure with presenting adeno and rhinoviral infections as well. -intubated on admit, tube exchanged 12/15. Extubated 12/20. 2. Septic shock, POA and resolved. -cont pressor support if needed, maintain MAP > 65 -PCR + adenovirus, + entero/rhino, +nasal MRSA -blood cultures neg so far -Abx chabged to ceftriaxone 12/21. 3. Acute metabolic encephalopathy, POA and resolved. -tox screen + methamphetamine 4. Acute hyponatremia, POA and improving. -SIADH -urine Na 66, urine osm pending -continue salt tabs via feeding tube. 5. Severe protein calorie malnutrition, POA and active. -initiated tube feeds -occupational therapy specialist consult -IV famotidine bid for GI prophylaxis 6. Hypomagnesemia, hypokalemia, POA and improving. -replete as needed. -recheck daily. 7. DM 2, POA and active. -cont SC insulin. - Goal BS < 180 Plan: -Added HS seroquel for sleep -Add flexaril prn TID -Stop Vanco (12/21) -focus Meropenem to Ceftriaxone (12/21) -PT eval, out of bed. -Speech eval. -Monitor SpO2, Temp, and WBC. Quality VTE Deep Vein Thrombosis/Pulmonary Embolism Present on Admission: No
[2023-12-22 09:22] LABS: Add Manual Diff / Slide Review NO; Basophils Absolute Auto 0 /uL (0-100); Basophils Percent Auto 0.4 % (0-2); Eosinophils Absolute Auto 300 /uL (0-450); Eosinophils Percent Auto 2.8 % (2-4); Hematocrit 28.1 % (41-53); Hemoglobin 9.2 g/dL (13.5-17.5); Lymphocytes Absolute Auto 900 /uL (1100-4500); Lymphocytes Percent Auto 8.6 % (25-40); Mean Corpuscular HGB Conc 32.8 % (30-36); Mean Corpuscular Hemoglobin 27.4 PG (26-34); Mean Corpuscular Volume 83.6 fL (80-100); Monocytes Absolute Auto 700 /uL (0-900); Monocytes Percent Auto 6.6 % (3-14); Neutrophils Absolute Auto 8600 /uL (1500-7000); Neutrophils Percent Auto 81.6 % (50-75); Platelet Count 630 X10^3/uL (150-400); Red Blood Cell Count 3.36 X10^6/uL (4.5-5.9); Red Cell Distribution Width 15.7 % (11.6-14.8); White Blood Cell Count 10.5 X10^3/uL (4.5-11.0)
[2023-12-22 09:42] LABS: Alanine Aminotransferase 28 IU/L (<50); Albumin 2.3 g/dL (3.5-5.0); Albumin Globulin Ratio 0.6 (1.0-2.8); Alkaline Phosphatase 75 U/L (38-126); Aspartate Aminotransferase 28 IU/L (17-59); BUN Creatinine Ratio 19.4 (6-22); Bilirubin Total 0.4 mg/dL (0.2-1.3); Blood Urea Nitrogen 6 mg/dL (9-20); Calcium 8.2 mg/dL (8.4-10.2); Carbon Dioxide 38 mmol/L (22-32); Chloride 96 mmol/L (98-107); Estimated Glomerular Filt Rate > 60 mL/min (>60); Globulin 3.6 g/dL (1.7-4.1); Glucose 118 mg/dL (80-110); HEMOLYSIS < 15 (0-50); Potassium 3.1 mmol/L (3.4-5.1); Sodium 134 mmol/L (137-145); Total Protein 5.9 g/dL (6.3-8.2)
[2023-12-22] MEDS: PANTOPRAZOLE 40 MG VIAL IV ×2 (09:55→21:00)
[2023-12-22] MEDS: cefTRIAXone 1,000 MG in SODIUM CHLORIDE 0.9% 100 ML 200 MG IV (09:55)
[2023-12-22] MEDS: SODIUM CHLORIDE 0.9% FLUSH 10 ML IV ×2 (09:56→21:00)
--- NOTE | 2023-12-22 11:54 | CM.DPC ---
DCP Cont. Reviewed EMR and team rounds for status updates. Pt was just extubated on 12/20, he continues to show slow improvement overall, has begun to work with PT, speech. Per PT, they are recommending SNF rehab at discharge, however he will most likely be difficult to place due to his BECKI hx, smoking status. Met with pt at bedside to discuss this. Pt states that he does not want to d/c to a SNF, and his preference is to return home with family assistance. Per Hospitalist, pt will likely not be ready for d/c for a few more days.
--- NOTE | 2023-12-22 14:42 | PT.IPTN ---
Current Diagnoses Sepsis, unspecified organism (12/14/23) Unspecified severe protein-calorie malnutrition (12/14/23) Hypo-osmolality and hyponatremia (12/14/23) Delirium due to known physiological condition (12/14/23) Other stimulant abuse, in remission (12/14/23) Adenoviral pneumonia (12/14/23) Respiratory syncytial virus pneumonia (12/14/23) Acute respiratory failure with hypoxia (12/14/23) Chronic respiratory failure with hypercapnia (12/14/23) Physical Therapy Treatment Note M2 PT-IP Current Condition Start: 12/21/23 13:07 Freq: NEEDED Status: Active Protocol: Document 12/21/23 11:45 AB (Rec: 12/21/23 13:24 AB [id number]) Physical Therapy Current Condition Current Condition Evaluation Date 12/21/23 Treatment Diagnosis respiratory failure; septic shock; difficulty in walking Onset Date 12/14/23 M3 PT-IP Subjective Start: 12/21/23 13:07 Freq: NEEDED Status: Active Protocol: Document 12/22/23 14:17 MB (Rec: 12/22/23 14:42 MB [id number]) Subjective Physical Therapy Visit Type Type Treatment Note Visit Start Time 14:17 Visit Stop Time 14:35 Number of IMAGE SCIENTIST Visits 0 M4 PT-IP Mobility and Gait Start: 12/21/23 13:07 Freq: NEEDED Status: Active Protocol: Document 12/22/23 14:17 MB (Rec: 12/22/23 14:42 MB [id number]) PT-Bed Mobility Assessment Supine to Sit Supine to Sit Contact Guard Assistance,1 Person Assistance,Head of Bed Elevated,Bedrails Scooting Scooting to Edge of Bed Contact Guard Assistance PT-Transfer Assessment Sit to and From Stand Sit to and from Stand Minimal Assistance,1 Person Assistance,Use of Upper Extremities Equipment Transfer Assistive Device Gait Belt,Front Wheeled Walker Orthotic/Prosthetic Devices or Brace: No Transfers Transfer Destination Chair Transfer Technique Stepping Transfer Ability Level of Assist Minimal Assistance,1 Person Assistance,Use of Upper Extremities Comments Mobility Comments Pt is tachycardia with mobility with HR increasing to 125 BPM. He is on 0.5L O2 on arrival today and O2 sats are in the 90s after treatment. Gait Assessment Gait Gait Assistance Required: Minimum Assistance,1 Person Assist Distance (Feet) 2 Able to Maintain Weight Bearing Status Yes During Gait Assistive Devices Assistive Device Gait Belt,Front Wheeled Walker Orthotic/Prosthetic Devices or Brace: No Gait Deviations General Gait Pattern Decreased Stride Length, Decreased Feet Clearance, Flexed Trunk,Step-to Gait,Wide Based Gait Factors Limiting Gait Function Factors Limiting Gait Function Decreased Activity Tolerance, Decreased Strength,Poor Balance Comments Gait Comments Pt with profound weakness in both legs with limited LAQ in sitting and strength no more than 2+ to 3-/5 for knee extension PT-Balance Assessment Sitting Balance and Reactions Static Sitting Balance Ability Fair Dynamic Sitting Balance Ability Fair Standing Balance and Reactions Static Standing Balance Ability Poor Dynamic Standing Balance Ability Poor Device Used RW M5 PT-IP Objective Assessments Start: 12/21/23 13:07 Freq: NEEDED Status: Active Protocol: Document 12/21/23 11:45 AB (Rec: 12/21/23 13:24 AB [id number]) Orientation Orientation/Cognition Level of Alertness Alert Orientation Name,Place,Situation Safety Awareness Decreased Safety Awareness Gross Range of Motion Lower Extremity ROM Assessment Within Functional Limits Strength Comments Strength Comments RLE: 3+/5 LLE: 4-/5 Sensation Assessment Comments Sensation Comments c/o chronic tingling on BLE Muscle Tone Muscle Tone WNL Yes M6 PT-IP Treatment Start: 12/21/23 13:07 Freq: NEEDED Status: Active Protocol: Document 12/22/23 14:17 MB (Rec: 12/22/23 14:42 MB [id number]) Physical Therapy Treatment Education Education Provided Safety M7 PT-IP Assessment and Plan Start: 12/21/23 13:07 Freq: NEEDED Status: Active Protocol: Document 12/22/23 14:17 MB (Rec: 12/22/23 14:42 MB [id number]) PT Summary Assessment and Plan Potential Rehabilitation Potential Fair Status of Condition at Evaluation Unstable Summary Impairments Pain,ROM,Strength,Balance, Coordination,Bed Mobility, Transfers,Gait,Activity Tolerance Assessment Summary Pt is moving better today. He is still profoundly weak and has increased HR with mobility . Goals Bed Mobility Goal Independent Transfer Goal Independent,Front Wheeled Walker Gait Goal Independent,Front Wheel Walker Gait Distance 50 Other Goals improve bed mobility, transfers and ambulation using LRAD 150 ft mod I up/down 1 step using LRAD/ without AD sBA Days to Meet Goals 10 Frequency of Treatment Frequency Of Treatment Once a Day Treatment Plan Physical Therapy Treatment Plan Bed Mobility Training,Transfer Training,Gait Training, Therapeutic Exercise,Balance Retraining,Discharge Planning, Hot or Cold Pack,Neuromuscular Re-ed,Coordination Retraining ,Manual Therapy Precautions Other Precautions falls; MRSA nares Recommendations To Nursing Amount of Assist Needed 1 Person Assist Discharge Recommendations PT Discharge Recommendations SNF Rehab Transportation Needs at Discharge Wheelchair/Cabulance
--- NOTE | 2023-12-22 14:47 | PC.NURSE ---
Patient lethargic today but conversing. He has been on his light multiple times for little things. Encouraged to try and do more on his own. Up in the chair now and reclining. Oxygen increased a bit and saturation in the 90s. Pulse rate now 109, down after oxygen placed on patient. Per he has been tachy for the past couple of days. Patients 75mcg fentanyl patched d/cd per MD. Old one to r.upper shoulder taken off, patient states that he does not want to have the fentanyl patch on, and he was groggy today but awake. If he starts to complain of increased pain we will talk to the hospitalist.
--- NOTE | 2023-12-22 15:57 | PC.NURSE ---
Patient has been up in the chair for a couple of hours, he asked to go back to bed. This RN wanted patient to stay up longer and eat in the chair. He states but I am sick,. This RN explained to patient that he has been in bed for days and he was up for a little while yesterday. We have agreed that he will lay down in 30 minutes as he has been up longer today. Patient is not happy but he seems to be understanding. IVF infusing and patient is tolerarting this well. He has a central line to his upper r.neck and a pheripheral iv to his r.forearm. Patient also has some skin issues and a skin tear that can be seen under skin assessment.
[2023-12-22] MEDS: AZITHROMYCIN 500 MG in DEXTROSE 5% IN WATER 250 ML 250 MG IV (17:00)
[2023-12-22] MEDS: QUETIAPINE 25 MG TABLET PO (21:00)
[2023-12-23] VITALS (122 sets, daily range): BP systolic 115–155; BP diastolic 69–92; PULSE 92–125; RESP 10–52; TEMP 36.4–37.3; O2SAT 75–98
[2023-12-23] MEDS: SODIUM CHLORIDE 0.9% 1,000 ML 125 ML IV (00:45)
[2023-12-23] MEDS: LORazepam 2 MG/ML INJ 1 MG IV (03:35)
[2023-12-23 05:30] LABS: Add Manual Diff / Slide Review NO; Basophils Absolute Auto 100 /uL (0-100); Basophils Percent Auto 0.6 % (0-2); Eosinophils Absolute Auto 300 /uL (0-450); Eosinophils Percent Auto 2.6 % (2-4); Hematocrit 29.8 % (41-53); Hemoglobin 9.6 g/dL (13.5-17.5); Lymphocytes Absolute Auto 900 /uL (1100-4500); Lymphocytes Percent Auto 8.6 % (25-40); Mean Corpuscular HGB Conc 32.1 % (30-36); Mean Corpuscular Hemoglobin 26.9 PG (26-34); Monocytes Absolute Auto 800 /uL (0-900); Monocytes Percent Auto 7.5 % (3-14); Neutrophils Absolute Auto 8200 /uL (1500-7000); Neutrophils Percent Auto 80.7 % (50-75); Platelet Count 665 X10^3/uL (150-400); Red Blood Cell Count 3.55 X10^6/uL (4.5-5.9); Red Cell Distribution Width 15.3 % (11.6-14.8); White Blood Cell Count 10.1 X10^3/uL (4.5-11.0)
[2023-12-23 05:43] LABS: Alanine Aminotransferase 25 IU/L (<50); Albumin 2.4 g/dL (3.5-5.0); Albumin Globulin Ratio 0.6 (1.0-2.8); Alkaline Phosphatase 79 U/L (38-126); Aspartate Aminotransferase 24 IU/L (17-59); BUN Creatinine Ratio 12.9 (6-22); Bilirubin Total 0.4 mg/dL (0.2-1.3); Blood Urea Nitrogen 4 mg/dL (9-20); Calcium 8.3 mg/dL (8.4-10.2); Chloride 97 mmol/L (98-107); Estimated Glomerular Filt Rate > 60 mL/min (>60); Globulin 3.8 g/dL (1.7-4.1); Glucose 91 mg/dL (80-110); HEMOLYSIS < 15 (0-50); Potassium 2.9 mmol/L (3.4-5.1); Sodium 137 mmol/L (137-145); Total Protein 6.2 g/dL (6.3-8.2)
[2023-12-23] MEDS: HEPARIN 5,000 UNIT/ML VIAL 5000 UNIT SUBCUT ×3 (05:53→22:17)
[2023-12-23 05:56] LABS: Carbon Dioxide 42 mmol/L (22-32)
[2023-12-23] MEDS: POTASSIUM CHLORIDE IN WATER 10 MEQ/100 ML PIGGYBACK 100 MEQ IV ×6 (06:17→18:10)
[2023-12-23] MEDS: cefTRIAXone 1,000 MG in SODIUM CHLORIDE 0.9% 100 ML 200 MG IV (08:06)
[2023-12-23] MEDS: PANTOPRAZOLE 40 MG VIAL IV ×2 (08:06→20:33)
[2023-12-23] MEDS: SODIUM CHLORIDE 0.9% FLUSH 10 ML IV ×2 (08:06→20:33)
--- NOTE | 2023-12-23 09:38 | DI.RAD.S_ITS ---
PROCEDURE: XR CHEST 1V INDICATIONS: cough TECHNIQUE: One view of the chest was acquired. COMPARISON: [facility], CT, CT ANGIO CHEST PE PROTOCOL, 12/18/2023, 14:53. [facility], CR, XR CHEST 1V, 12/17/2023, 8:31. FINDINGS: Surgical changes and devices: Cervical thoracic fusion hardware. Right IJ catheter, the tip which projects to the distal superior vena cava. Lungs and pleura: Bibasilar dominant interstitial infiltrates which correspond to tree-in-bud opacities on CT. There may be slight improvement compared to the previous chest x-ray. Small bilateral pleural effusions. No pneumothorax. Mediastinum: Mediastinal contours appear normal. Heart size is normal. Bones and chest wall: No suspicious bony lesions. Overlying soft tissues appear unremarkable. IMPRESSION: Question slight interval improvement in bibasilar predominant interstitial infiltrates. Presence of small bilateral pleural effusions. Dictated by: Juan Manuel Hampton M.D. on 12/23/2023 at 13:29 Approved by: Juan Manuel Hampton M.D. on 12/23/2023 at 13:31
--- NOTE | 2023-12-23 09:39 | PM.PN.1 ---
Subjective Subjective Interval history: Feels a little bit better, still weak. Still coughing, not really short of breath. No pain concerns. Exam Vital Signs (past 8 hours): - 12/23/23 01:40 12/23/23 01:45 12/23/23 01:50 Temperature 97.7 F 97.7 F 97.7 F Pulse Rate 99 H 101 H 100 H Respiratory Rate 29 H 32 H 15 Blood Pressure Pulse Oximetry 96 94 95 Oxygen Flow Rate 12/23/23 01:55 12/23/23 02:00 12/23/23 02:05 Temperature 97.7 F 97.7 F 97.7 F Pulse Rate 95 H 95 H 94 H Respiratory Rate 17 19 17 Blood Pressure Pulse Oximetry 95 96 98 Oxygen Flow Rate 12/23/23 02:10 12/23/23 02:15 12/23/23 02:20 Temperature 97.7 F 97.7 F 97.7 F Pulse Rate 98 H 96 H 104 H Respiratory Rate 18 15 22 Blood Pressure Pulse Oximetry 97 96 88 L Oxygen Flow Rate 12/23/23 02:25 12/23/23 02:30 12/23/23 02:35 Temperature 97.7 F 97.7 F 97.7 F Pulse Rate 100 H 95 H 92 H Respiratory Rate 33 H 12 11 L Blood Pressure Pulse Oximetry 92 89 L 93 Oxygen Flow Rate 12/23/23 02:40 12/23/23 02:45 12/23/23 02:50 Temperature 97.7 F 97.9 F 97.9 F Pulse Rate 105 H 103 H 92 H Respiratory Rate 23 22 21 Blood Pressure Pulse Oximetry 90 L 87 L 90 L Oxygen Flow Rate 12/23/23 02:55 12/23/23 03:00 12/23/23 03:05 Temperature 97.9 F 97.9 F 97.9 F Pulse Rate 96 H 94 H 95 H Respiratory Rate 16 16 19 Blood Pressure Pulse Oximetry 94 96 95 Oxygen Flow Rate 12/23/23 03:10 12/23/23 03:15 12/23/23 03:20 Temperature 97.9 F 97.9 F 97.9 F Pulse Rate 97 H 97 H 96 H Respiratory Rate 20 23 10 L Blood Pressure Pulse Oximetry 96 96 96 Oxygen Flow Rate 12/23/23 03:25 12/23/23 03:30 12/23/23 03:35 Temperature 97.9 F 98.1 F 98.1 F Pulse Rate 94 H 96 H 99 H Respiratory Rate 12 16 12 Blood Pressure Pulse Oximetry 95 94 95 Oxygen Flow Rate 12/23/23 03:40 12/23/23 03:45 12/23/23 03:50 Temperature 98.1 F 98.1 F 98.1 F Pulse Rate 98 H 108 H 109 H Respiratory Rate 15 28 H 22 Blood Pressure Pulse Oximetry 97 86 L 84 L Oxygen Flow Rate 12/23/23 03:55 12/23/23 04:00 12/23/23 04:05 Temperature 98.1 F 98.1 F 98.1 F Pulse Rate 105 H 111 H 99 H Respiratory Rate 19 29 H 20 Blood Pressure Pulse Oximetry 87 L 83 L 91 Oxygen Flow Rate 12/23/23 04:10 12/23/23 04:15 12/23/23 04:20 Temperature 98.1 F 98.1 F 98.2 F Pulse Rate 100 H 103 H 111 H Respiratory Rate 24 28 H 25 H Blood Pressure Pulse Oximetry 93 90 L 75 L Oxygen Flow Rate 12/23/23 04:21 12/23/23 04:21 12/23/23 04:25 Temperature 98.2 F 98.2 F Pulse Rate 113 H 109 H Respiratory Rate 24 29 H Blood Pressure 142/73 H Pulse Oximetry 75 L 92 Oxygen Flow Rate 12/23/23 04:30 12/23/23 08:00 Temperature 98.2 F 99.1 F Pulse Rate 111 H 115 H Respiratory Rate 22 22 Blood Pressure 142/73 H 145/86 H Pulse Oximetry 93 93 Oxygen Flow Rate 4 4 Fraction of Inspired Oxygen 24 SaO2/FiO2 Ratio 404 Oxygen Delivery Method Nasal Cannula Oxygen Flow Rate 4 Narrative Exam Narrative: NAD, flat affect. Cachectic. Neck is supple. Lungs are notable for normal rate and effort, scattered rhonchi and diminished breath sounds globally. Heart is regular, no murmur. Abdomen is soft, non-tender, flat. Extremities are free of edema. Objective Labs 12/23/23 05:05 12/23/23 05:05 Labs: Laboratory Results - last 24 hr 12/22/23 12/23/23 09:11 05:05 WBC 10.1 RBC 3.55 L Hgb 9.6 L Hct 29.8 L MCV 84.0 MCH 26.9 MCHC 32.1 RDW 15.3 H Plt Count 665 H Neut % (Auto) 80.7 H Lymph % (Auto) 8.6 L [place] % (Auto) 7.5 Eos % (Auto) 2.6 Baso % (Auto) 0.6 Neut # (Auto) 8200 H Lymph # (Auto) 900 L [place] # (Auto) 800 Eos # (Auto) 300 Baso # (Auto) 100 Sodium 134 L 137 Potassium 3.1 L 2.9 L Chloride 96 L 97 L Carbon Dioxide 38 H 42 H* BUN 6 L 4 L Creatinine 0.31 L 0.31 L Estimated GFR > 60 > 60 BUN/Creatinine Ratio 19.4 12.9 Glucose 118 H 91 Calcium 8.2 L 8.3 L Total Bilirubin 0.4 0.4 AST 28 24 ALT 28 25 Alkaline Phosphatase 75 D 79 Total Protein 5.9 L 6.2 L Albumin 2.3 L 2.4 L Globulin 3.6 3.8 Albumin/Globulin Ratio 0.6 L 0.6 L PFSH Medical History Tracheostomy in place Sepsis Muscle pain Foot pain Ankle pain Chronic back pain Acid reflux Tobacco use disorder, moderate, in early remission Hypertension Ankylosing spondylitis Alcohol abuse Ankylosing spondylitis (1985) GERD (gastroesophageal reflux disease) Hypertension Fracture cervical vertebra-closed Surgical History Status post incision and drainage History of open reduction and internal fixation (ORIF) procedure (2005) Status post colonoscopy (2012) History of tonsillectomy Family History Father No problems noted. Mother Cancer Other Alcoholism Colorectal cancer Social History household members: family Smoking Status: Current every day smoker Assessment & Plan Assessment & Plan narrative: 1. Acute hypoxemic respiratory failure, POA and improving. -secondary to possible aspiration pneumonia, sepsis. May have component of chronic respiratory failure with presenting adeno and rhinoviral infections as well. -intubated on admit, tube exchanged 12/15. Extubated 12/20. 2. Septic shock, POA and resolved. -cont pressor support if needed, maintain MAP > 65 -PCR + adenovirus, + entero/rhino, +nasal MRSA -blood cultures neg so far -Abx changed to ceftriaxone 12/21. 3. Acute metabolic encephalopathy, POA and resolved. -tox screen + methamphetamine 4. Acute hyponatremia, POA and improving. -SIADH -urine Na 66, urine osm pending -continue salt tabs via feeding tube. 5. Severe protein calorie malnutrition, POA and active. -initiated tube feeds -aix administrator consult -IV famotidine bid for GI prophylaxis 6. Hypomagnesemia, hypokalemia, POA and improving. -replete as needed. -recheck daily. 7. DM 2, POA and active. -cont SC insulin. - Goal BS < 180 Plan: -Added HS seroquel for sleep -Added flexaril prn TID -Stopped Vanco (12/21) -focus Meropenem to Ceftriaxone (12/21) -PT eval, out of bed. -Speech eval. -Monitor SpO2, Temp, and WBC. -repeat chest x-ray today. -consider stopping antibiotics. -discontinue Manley catheter. -we are going pulmonary status with incepntive spirometry. DISPO: He will likely need longterm facility for rehabilitation. Continue to assess his progress with physical and occupational therapy. Quality VTE Deep Vein Thrombosis/Pulmonary Embolism Present on Admission: No
--- NOTE | 2023-12-23 12:06 | PT.IPTN ---
Current Diagnoses Sepsis, unspecified organism (12/14/23) Unspecified severe protein-calorie malnutrition (12/14/23) Hypo-osmolality and hyponatremia (12/14/23) Delirium due to known physiological condition (12/14/23) Other stimulant abuse, in remission (12/14/23) Adenoviral pneumonia (12/14/23) Respiratory syncytial virus pneumonia (12/14/23) Acute respiratory failure with hypoxia (12/14/23) Chronic respiratory failure with hypercapnia (12/14/23) Physical Therapy Treatment Note M2 PT-IP Current Condition Start: 12/21/23 13:07 Freq: NEEDED Status: Active Protocol: Document 12/21/23 11:45 AB (Rec: 12/21/23 13:24 AB [id number]) Physical Therapy Current Condition Current Condition Evaluation Date 12/21/23 Treatment Diagnosis respiratory failure; septic shock; difficulty in walking Onset Date 12/14/23 M3 PT-IP Subjective Start: 12/21/23 13:07 Freq: NEEDED Status: Active Protocol: Document 12/23/23 12:06 AW (Rec: 12/23/23 12:15 AW [id number]) Subjective Physical Therapy Visit Type Type Treatment Note Visit Start Time 11:40 Visit Stop Time 12:06 Number of LACQUER MIXER Visits 0 Physical Therapy Visit Comments Patient Comments Pt is willing to participate with PT M4 PT-IP Mobility and Gait Start: 12/21/23 13:07 Freq: NEEDED Status: Active Protocol: Document 12/23/23 12:06 AW (Rec: 12/23/23 12:15 AW [id number]) PT-Bed Mobility Assessment Supine to Sit Supine to Sit Contact Guard Assistance,1 Person Assistance,Head of Bed Elevated,Bedrails Scooting Scooting to Edge of Bed Contact Guard Assistance PT-Transfer Assessment Sit to and From Stand Sit to and from Stand Minimal Assistance,1 Person Assistance,Use of Upper Extremities Equipment Transfer Assistive Device Gait Belt,Front Wheeled Walker Transfers Transfer Destination Chair Transfer Technique Stepping Transfer Ability Level of Assist Minimal Assistance,1 Person Assistance,Use of Upper Extremities Comments Mobility Comments Pt found in bed with HR 110 and SpO2 92% on 0.5 L O2. He transfers to EOB with verbal cues and CGA to initiate task but is able to follow simple instructions. HR increases to 120's (max 126) during mobility attempts and SpO2 drops to 86%. RN in to titrate O2 and SpO2 recovers to 90% within 4 minutes. Pt stands and transfers to chair using FWW with min assist. He is too fatigued for ambulation but indicates he would like to use the urinal. PT encourages pt to stand for urinal use and he is able to do so with min assist but is unable to void. Pt returns to sitting and asks for warm blankets and to have his legs elevated. Care transitions to nursing. Gait Assessment Gait Gait Assistance Required: Minimum Assistance,1 Person Assist Distance (Feet) 2 Assistive Devices Assistive Device Gait Belt,Front Wheeled Walker Gait Deviations General Gait Pattern Decreased Stride Length, Decreased Feet Clearance, Flexed Trunk,Step-to Gait,Wide Based Gait Factors Limiting Gait Function Factors Limiting Gait Function Decreased Activity Tolerance, Decreased Strength,Poor Balance PT-Balance Assessment Sitting Balance and Reactions Static Sitting Balance Ability Good Dynamic Sitting Balance Ability Fair Standing Balance and Reactions Static Standing Balance Ability Fair Dynamic Standing Balance Ability Poor Device Used FWW M5 PT-IP Objective Assessments Start: 12/21/23 13:07 Freq: NEEDED Status: Active Protocol: Document 12/21/23 11:45 AB (Rec: 12/21/23 13:24 AB [id number]) Orientation Orientation/Cognition Level of Alertness Alert Orientation Name,Place,Situation Safety Awareness Decreased Safety Awareness Gross Range of Motion Lower Extremity ROM Assessment Within Functional Limits Strength Comments Strength Comments RLE: 3+/5 LLE: 4-/5 Sensation Assessment Comments Sensation Comments c/o chronic tingling on BLE Muscle Tone Muscle Tone WNL Yes M6 PT-IP Treatment Start: 12/21/23 13:07 Freq: NEEDED Status: Active Protocol: Document 12/23/23 12:06 AW (Rec: 12/23/23 12:15 AW [id number]) Physical Therapy Treatment Other Treatments Other Treatment Performed Seated hip flexion january x BLE with quick approach to fatigue. M7 PT-IP Assessment and Plan Start: 12/21/23 13:07 Freq: NEEDED Status: Active Protocol: Document 12/23/23 12:06 AW (Rec: 12/23/23 12:15 AW [id number]) PT Summary Assessment and Plan Summary Impairments Pain,ROM,Strength,Balance, Coordination,Cognition,Bed Mobility,Transfers,Gait, Activity Tolerance Progress Towards Goals Slow Progress due to Medical Issues,Slow Progress due to Activity Tolerance Assessment Summary Per nursing, pt had ativan last night and is just waking up. Pt is able to attend to task and follow simple directions but fatigues quickly. Min A for sit to stand and transfer today. Pt has delayed righting responses which put him at high risk for falls. PT continues to recommend SNF at discharge for ongoing rehab services. Goals Bed Mobility Goal Independent Transfer Goal Independent,Front Wheeled Walker Gait Goal Independent,Front Wheel Walker Gait Distance 50 Other Goals improve bed mobility, transfers and ambulation using LRAD 150 ft mod I up/down 1 step using LRAD/ without AD sBA Days to Meet Goals 10 Frequency of Treatment Frequency Of Treatment Once a Day Treatment Plan Physical Therapy Treatment Plan Bed Mobility Training,Transfer Training,Gait Training, Therapeutic Exercise,Balance Retraining,Discharge Planning, Hot or Cold Pack,Neuromuscular Re-ed,Coordination Retraining ,Manual Therapy Precautions Other Precautions falls; MRSA nares Recommendations To Nursing Amount of Assist Needed 1 Person Assist Discharge Recommendations PT Discharge Recommendations SNF Rehab Transportation Needs at Discharge Wheelchair/Cabulance
--- NOTE | 2023-12-23 15:48 | CM.DPNOTE ---
Addendum entered by VARGAS Curran 12/23/23 16:21: WINDOWS SECURITY ENGINEER met with POA Yifan, nephew Hemant, and pt at bedside. WINDOWS SECURITY ENGINEER reported on barriers with SNF placement. Pt and Yifan expressed understanding. Yifan reported wanting his father to have speech/PT. WINDOWS SECURITY ENGINEER was only able to briefly discuss HH/the dcp for home when interrupted. Plan: SNF vs home with family. Attempt HH if agreeable. CM team will coordinate closely with POA/family for DCP. SL Original Note: DCP Note WINDOWS SECURITY ENGINEER reviewed EMR. Provider/PT/nursing rec SNF placement. Barriers include 1) patient agreement 2) insurance 3) pt's recent substance usage/overdose that led to admission. WINDOWS SECURITY ENGINEER entered room and introduced self and role. pt reported that he had an accident and was concerned about not having clothes. RN notified and assisted pt in changing. WINDOWS SECURITY ENGINEER and pt briefly talked about how our team is rec SNF placement for him prior to dc home. Pt reports he would rather go home but agreed to let this WINDOWS SECURITY ENGINEER send off some referrals to see what the options available were. [facility] do not take insurance. [facility]- sometimes take insurance pending on pt's need. Denied pt due to recent overdose/meth usage. [facility]- take his insurance and report they can sometimes negotiate a higher rate. Agreed to review. WINDOWS SECURITY ENGINEER emailed [facility] initial referral information. Plan: DCP pending pt's medical prognosis. SNF placement, [facility] reviewing. Likely due to various placement barriers, likely home with family. CM team will coordinate closely with POA/family for DCP. VARGAS Curran
[2023-12-23] MEDS: AZITHROMYCIN 500 MG in DEXTROSE 5% IN WATER 250 ML 250 MG IV (16:50)
--- NOTE | 2023-12-23 16:50 | ST.IPDYTX ---
Visit Care Team Role Provider Type Yuliya Morin MD Primary Care Provider Non-Staff Specialty: Family Practice Address: [id number] [place] [address], [id number] Email: Jonathan Hines MD Other Providers Physician Specialty: Medical Address: Phone: Fax: Email: Greta Boyer MD Other Providers Physician Specialty: Medical Address: Phone: Fax: Email: Dre Saucedo MD Other Providers Physician Specialty: Medical Address: [address] [place], [address] Phone: Fax: Email: Jean Kim MD Other Providers Physician Specialty: Internal Medicine Address: Phone: Fax: Email: Rico Ribeiro MD Other Providers Physician Specialty: Medical Address: Phone: Fax: Email: Samira Camargo MD Other Providers Physician Specialty: Anesthesiology Internal Medicine Address: [address] [place] [address], [address] Fax: Email: [email or web address] Mati Fu MD Other Providers Physician Specialty: Internal Medicine Address: [address] [place], [address] Phone: Fax: Email: [email or web address] Kb Anaya MD Other Providers Physician Specialty: Internal Medicine Address: Phone: Fax: Email: Ghanshyam Oakes MD Other Providers Physician Specialty: Medical Address: Phone: Fax: Email: Chad Whitmore MD Other Providers Physician Specialty: Internal Medicine Address: [address] [place], [address] Phone: Fax: Email: Rodrigo Tate MD Other Providers Physician Specialty: Medical Address: [address], [address] Phone: Fax: Email: Shereen George MD Other Providers Physician Specialty: Medical Address: Phone: Fax: Email: Lisa Alatorre Other Providers Physician Specialty: Medical Address: Phone: Fax: Email: Elsie Nelson MD Other Providers Physician Specialty: Internal Medicine Address: Phone: Fax: Email: Carlyn Ambrocio MD Emergency Provider Physician Referring Provider Specialty: Emergency Medicine Address: [address] [facility] [place], [address] Email: [email or web address] Porras, DO Admit Provider Physician Attending Provider Specialty: Internal Medicine Address: [address] [place] [address], [address] Email: [email or web address] MOBILITY MANAGER Dysphagia Treatment MOBILITY MANAGER Dysphagia Treatment Start: 12/23/23 12:07 Freq: Status: Active Protocol: Document 12/23/23 12:07 CG (Rec: 12/23/23 12:11 CG [id number]) Dysphagia Treatment Session Time Visit Start Time 12:10 Visit Stop Time 12:50 Total Visit Minutes 40 Visit Information Visit Number 2 Setting Assessment Location Acute Care Patient Information Subjective Observations Pt was seated in hospital chair at bedside after working with PT upon MOBILITY MANAGER arrival. Per nurse, the pt had difficulty sleeping last night and was therefore given Ativan. This caused him to be extremely fatigued, but nursing reports he is just beginning to clear. He did not eat breakfast this morning but was reported to have had some apple juice, which he tolerated well. He is still taking medications in applesauce, per nursing report. MOBILITY MANAGER present with lunch tray (egg salad sandwich, chicken noodle soup, ice cream cup, and Pepsi) to assess diet tolerance and utilization of compensatory swallowing strategies. Treatment Liquids Trialed Thin (IDDSI 0) Solids Trialed Purred (IDDSI 4),Soft & Bite- sized (IDDSI 6) Administration Type Tea Spoon,Controlled Cup Sip, Straw,Dependent Feeding Oral Strategies Upright at 90 degrees, Controlled Bite/Sip Size Pharyngeal Strategies Sitting Upright (90 deg),Small Bites and Sips,Alternate Liquids/Solids Treatment Activities MOBILITY MANAGER conducted PO trials with the pt's lunch tray and also provided education re dysphagia and swallow safety. Consulted with hospitalist re ordering MBSS; consulted with radiology to schedule MBSS tomorrow morning. Diet orders updated based on progress (see Assessment section). The IDDSI Framework Protocol: IDDSI.1 Assessment Patient Response to Treatment Fair Assessment of Improvement MOBILITY MANAGER initially assisted the pt in repositioning with a pillow pushed further behind his shoulders. Despite being in hospital chair, he was slightly slid down and not at 90 degrees. Pt independently verbalized this, stating I'm not up high enough. Pt appeared to still be fatigued/cloudy due to Ativan from last night, based on status compared to ST Evaluation note. His speech was halting and minimally intelligible, and voice extremely quiet. He was awake and alert, and was able to state that he was in a hospital in [place]. however, he was not oriented to time, stating that it was 4 :00pm (it was about 12:15pm at that time). Pt presented with deep wet cough intermittently at baseline. Pt's hands were observed to be edemous and with limited fine motor control during tx. Pt was agreeable to trials of lunch tray, but was unable to feed himself due to fine motor control difficulties with the utensils. MOBILITY MANAGER assisted in bringing foods and liquids to pt's mouth. Pt required a verbal cue to close his mouth around spoon on most trials. During trials of broth from chicken soup, pt presented with immediate wet cough on approximately 50% of trials. It is impossible to determine whether this was due to aspiration or rather due to the bolus loosening secretions that were present in the pharynx. Cough was present regardless of whether MOBILITY MANAGER presented full or half teaspoons. Chin tuck was trialed, but pt was unable to contract his neck muscles enough to execute chin tuck. Suspect that a chin tuck would be helpful, as this MOBILITY MANAGER suspects premature spillage of the bolus before initiation of the pharyngeal swallow. MOBILITY MANAGER proceeded with trials of egg salad sandwich. Pt with very inefficient mastication and frequent attempts to speak while chewing. Moderate residue was present throughout the oral cavity after the swallows. Pt presents as a high choking risk at this time with solid foods. Recommend downgrade to minced and moist solids due to difficulty with mastication 2/ lack of dentition and reduced alertness at this time. During trial of just the egg salad, scooped off of the bread, pt tolerated these trials more efficiently, though mastication and swallow initiation remained slowed. Continued with trials of ice cream via teaspoon fed by MOBILITY MANAGER. Pt tolerated approximately 70% of trials without overt s/ sx aspiration; however, he presented with a wet cough after about 30% of trials. It is again impossible to determine whether this cough was the result of aspiration, baseline cough, or loosening of secretions. Pt was observed to cough up thick white secretions x2 during trials of ice cream. Pt requested suctioning, which MOBILITY MANAGER turned back on and assisted the pt in completing. Attempted to trial ice chips, but pt declined. Explained that ice chips would likely be safer at this time than sips of water. Pt acknowledged but continued to decline ice chips. Educated pt that he is presenting with signs of aspiration. Explained that this means that food or liquid is possibly going down the wrong tube. Explained that due to this, ice chips are safest given that they melt more slowly and allow him more time to swallow. Pt continued to decline trials of ice chips. Further educated that if the pt was going to drink liquids, plain water is likely safest for the pt at this time as it is more easily absorbed by the body. Pt acknowledged, but stated, I want my pop. MOBILITY MANAGER again explained that soda is a less safe choice for the pt at this time. MOBILITY MANAGER asked if pt understood and pt said yes but reiterated a second time, I want my pop. Overall, pt's swallow status appears to have declined from initial MOBILITY MANAGER evaluation on Saturday based on his clinical signs and symptoms. However, due to multiple factors possibly affecting his responses during bedside swallow evaluation, an MBSS is recommended for a more objective assessment of swallow function. Ideally, MOBILITY MANAGER recommends the followin. Ice chips only pending MBSS (However, pt has declined this despite MOBILITY MANAGER education. If pt declines ice chips, recommend small sips of water with no straw). 2. Strict oral care to decrease risk of developing aspiration PNA. 3. Minced and moist solids with 1:1 assist. 4. Plan of care discussion with pt and MD. Recommendations Recommendations Downgrade Diet Order Diet Order Minced & Moist (IDDSI 5) Medication Recommendations Whole in Carrier,Crushed in Carrier Additional Dietary Needs Controlled Sips,No Straws,1:1 Assistance,Encourage to Self- Feed Treatment Plan Placement Recommendation after Discharge [facility] Facility,Home with Home Health Appropriate for Continued Therapy Yes Therapy Recommendations 1. Pt education for safe swallowing and swallow exercises will be provided in verbal and written format for pt. 2. Pt will complete MBSS for objective evaluation of swallow function (NEW GOAL ). Dysphagia Goals Pt will safely tolerate the least restrictive diet to meet hydration and nutrition needs .
--- NOTE | 2023-12-23 17:14 | PC.NURSE ---
Day shift: Pt fatigued, A&O to self, situation. 2L NC, tachycardic, other vital signs stable. Darkened skin tear on coccyx, barrier cream applied. Hidalgo catheter removed. Pt side to side for reposition to prevent pressure on coccyx. Up to chair with PT 1PA FWW. Pt up in chair for duration of lunch, worked with speech therapy. Pt voided 325 post hidalgo removal. Pt requested to go back to bed around 1530. 1PA w/ FWW to bed. Pt requesting this RN, Go get my clothes from my back room. Pt reoriented to hospital room. Call light within reach, bed alarm active. Care ongoing, will continue to monitor.
[2023-12-23 19:43] LABS: BUN Creatinine Ratio 14.3 (6-22); Blood Urea Nitrogen 4 mg/dL (9-20); Calcium 8.2 mg/dL (8.4-10.2); Chloride 92 mmol/L (98-107); Estimated Glomerular Filt Rate > 60 mL/min (>60); Glucose 112 mg/dL (80-110); HEMOLYSIS < 15 (0-50); Potassium 3.5 mmol/L (3.4-5.1); Sodium 134 mmol/L (137-145)
[2023-12-23 19:49] LABS: Carbon Dioxide 39 mmol/L (22-32)
[2023-12-23] MEDS: QUETIAPINE 25 MG TABLET PO (20:32)
[2023-12-23] MEDS: ACETAMINOPHEN 325 MG TABLET 650 MG PO (20:32)
[2023-12-24] VITALS (200 sets, daily range): BP systolic 140–195; BP diastolic 91–105; PULSE 90–118; RESP 7–53; TEMP 36.4–37.2; O2SAT 73–100
[2023-12-24 04:49] LABS: Add Manual Diff / Slide Review NO; Basophils Absolute Auto 100 /uL (0-100); Basophils Percent Auto 0.9 % (0-2); Eosinophils Absolute Auto 100 /uL (0-450); Eosinophils Percent Auto 0.6 % (2-4); Hematocrit 28.4 % (41-53); Hemoglobin 9.3 g/dL (13.5-17.5); Lymphocytes Absolute Auto 1200 /uL (1100-4500); Lymphocytes Percent Auto 8.7 % (25-40); Mean Corpuscular HGB Conc 32.7 % (30-36); Mean Corpuscular Hemoglobin 26.8 PG (26-34); Monocytes Absolute Auto 900 /uL (0-900); Monocytes Percent Auto 7.1 % (3-14); Neutrophils Absolute Auto 11100 /uL (1500-7000); Neutrophils Percent Auto 82.7 % (50-75); Platelet Count 777 X10^3/uL (150-400); Red Blood Cell Count 3.46 X10^6/uL (4.5-5.9); Red Cell Distribution Width 15.6 % (11.6-14.8); White Blood Cell Count 13.4 X10^3/uL (4.5-11.0)
[2023-12-24 05:02] LABS: BUN Creatinine Ratio 15.4 (6-22); Blood Urea Nitrogen 4 mg/dL (9-20); Calcium 8.4 mg/dL (8.4-10.2); Chloride 92 mmol/L (98-107); Estimated Glomerular Filt Rate > 60 mL/min (>60); Glucose 91 mg/dL (80-110); HEMOLYSIS 16 (0-50); Sodium 136 mmol/L (137-145)
[2023-12-24 05:23] LABS: Carbon Dioxide 45 mmol/L (22-32)
[2023-12-24 05:29] LABS: Platelet Estimate Increased on smear; RBC Morphology Normal Morphology
[2023-12-24] MEDS: HEPARIN 5,000 UNIT/ML VIAL 5000 UNIT SUBCUT ×3 (06:07→22:09)
--- NOTE | 2023-12-24 06:12 | PC.NURSE ---
Outpatient Dietitian Note-Patient again awake most of the night, received Seroquel and Tylenol at HS. Intermittent confusion and hallucinations, at times he is oriented to person, place, and year. Able to make some needs known, like I need the urinal ST 110-120, RR 20s, SpO2 90% RA at rest, >95% on 1L NC.
[2023-12-24] MEDS: ACETAMINOPHEN 325 MG TABLET 650 MG PO (08:14)
[2023-12-24] MEDS: PANTOPRAZOLE 40 MG VIAL IV (08:14)
[2023-12-24] MEDS: SODIUM CHLORIDE 0.9% FLUSH 10 ML IV ×4 (08:30→20:53)
[2023-12-24] MEDS: HYDROMORPHONE 0.5 MG INJ 0.2 MG IV ×2 (09:15→17:41)
[2023-12-24] MEDS: cefTRIAXone 1,000 MG in SODIUM CHLORIDE 0.9% 100 ML 100 MG IV (09:15)
--- NOTE | 2023-12-24 10:15 | PM.PN.1 ---
Subjective Subjective Interval history: He feels better today. He is still quite weak. He has only been up with physical therapy on a limited basis. Social work is looking for detention facilities. He had a modified barium showing of dysphagia. Recommendations are to avoid thin liquids. The patient understands that he is at risk for aspiration and pneumonia. He does want to be intubated in the future if he needs to survive. Exam Vital Signs (past 8 hours): - 12/24/23 02:20 12/24/23 02:25 12/24/23 02:30 Pulse Rate 118 H 109 H 109 H Respiratory Rate 23 26 H 7 L Blood Pressure Pulse Oximetry Oxygen Delivery Method Oxygen Flow Rate 12/24/23 02:35 12/24/23 02:40 12/24/23 02:45 Pulse Rate 111 H 109 H 108 H Respiratory Rate 14 27 H 28 H Blood Pressure Pulse Oximetry Oxygen Delivery Method Oxygen Flow Rate 12/24/23 02:50 12/24/23 02:55 12/24/23 03:00 Pulse Rate 109 H 111 H 110 H Respiratory Rate 25 H 25 H 14 Blood Pressure Pulse Oximetry Oxygen Delivery Method Oxygen Flow Rate 12/24/23 03:05 12/24/23 03:10 12/24/23 03:15 Pulse Rate 111 H 111 H 110 H Respiratory Rate 17 18 7 L Blood Pressure Pulse Oximetry Oxygen Delivery Method Oxygen Flow Rate 12/24/23 03:20 12/24/23 03:25 12/24/23 03:30 Pulse Rate 112 H 113 H 112 H Respiratory Rate 16 23 28 H Blood Pressure Pulse Oximetry Oxygen Delivery Method Oxygen Flow Rate 12/24/23 03:35 12/24/23 03:40 12/24/23 03:45 Pulse Rate 114 H 114 H 114 H Respiratory Rate 29 H 28 H 28 H Blood Pressure Pulse Oximetry Oxygen Delivery Method Oxygen Flow Rate 12/24/23 03:50 12/24/23 03:55 12/24/23 03:57 Pulse Rate 113 H 110 H 109 H Respiratory Rate 21 30 H 24 Blood Pressure Pulse Oximetry 97 Oxygen Delivery Method Oxygen Flow Rate 1 12/24/23 03:57 12/24/23 04:00 12/24/23 04:05 Pulse Rate 109 H 109 H Respiratory Rate 22 25 H Blood Pressure 166/95 H Pulse Oximetry Oxygen Delivery Method Oxygen Flow Rate 12/24/23 04:10 12/24/23 04:15 12/24/23 04:20 Pulse Rate 111 H 111 H 111 H Respiratory Rate 27 H 22 24 Blood Pressure Pulse Oximetry Oxygen Delivery Method Oxygen Flow Rate 12/24/23 04:25 12/24/23 09:17 Pulse Rate 111 H Respiratory Rate 25 H Blood Pressure Pulse Oximetry 92 Oxygen Delivery Method Room Air Oxygen Flow Rate Fraction of Inspired Oxygen 24 SaO2/FiO2 Ratio 404 Oxygen Delivery Method Room Air Oxygen Flow Rate 1 Narrative Exam Narrative: NAD, speech stronger. No distress. Lungs are clear with some scattered rhonchi. Normal rate and effort. Heart is regular without murmur. Abdomen is flat and nontender. Legs are free of edema. The right forearm is somewhat swollen, the left is not. Objective Labs 12/24/23 04:00 12/24/23 04:00 Labs: Laboratory Results - last 24 hr 12/23/23 12/24/23 19:00 04:00 WBC 13.4 H RBC 3.46 L Hgb 9.3 L Hct 28.4 L MCV 82.0 MCH 26.8 MCHC 32.7 RDW 15.6 H Plt Count 777 H Neut % (Auto) 82.7 H Lymph % (Auto) 8.7 L [place] % (Auto) 7.1 Eos % (Auto) 0.6 L Baso % (Auto) 0.9 Neut # (Auto) 18839 H Lymph # (Auto) 1200 [place] # (Auto) 900 Eos # (Auto) 100 Baso # (Auto) 100 Platelet Estimate Increased on smear RBC Morphology Normal morphology Sodium 134 L 136 L Potassium 3.5 3.0 L Chloride 92 L 92 L Carbon Dioxide 39 H 45 H* BUN 4 L 4 L Creatinine 0.28 L 0.26 L Estimated GFR > 60 > 60 BUN/Creatinine Ratio 14.3 15.4 Glucose 112 H 91 Calcium 8.2 L 8.4 PFSH Medical History Tracheostomy in place Sepsis Muscle pain Foot pain Ankle pain Chronic back pain Acid reflux Tobacco use disorder, moderate, in early remission Hypertension Ankylosing spondylitis Alcohol abuse Ankylosing spondylitis (1985) GERD (gastroesophageal reflux disease) Hypertension Fracture cervical vertebra-closed Surgical History Status post incision and drainage History of open reduction and internal fixation (ORIF) procedure (2005) Status post colonoscopy (2013) History of tonsillectomy Family History Father No problems noted. Mother Cancer Other Alcoholism Colorectal cancer Social History household members: family Smoking Status: Current every day smoker Assessment & Plan Assessment & Plan narrative: 1. Acute hypoxemic respiratory failure, POA and improving. -secondary to possible aspiration pneumonia, sepsis. May have component of chronic respiratory failure with presenting adeno and rhinoviral infections as well. -intubated on admit, tube exchanged 12/15. Extubated 12/20. -he continues to improve and is weaning off from oxygen. 2. Septic shock, POA and resolved. -cont pressor support if needed, maintain MAP > 65 -PCR + adenovirus, + entero/rhino, +nasal MRSA -blood cultures neg so far -Abx changed to ceftriaxone 12/21.- 3. Acute metabolic encephalopathy, POA and resolved. 4. Acute hyponatremia, POA and improving. -SIADH 5. Severe protein calorie malnutrition, POA and active. -advancing diet with limitations as noted per speech therapy. 6. Hypomagnesemia, hypokalemia, present on admission and improving. -supplementing. 7. DM 2, POA and active. -cont SC insulin. - Goal BS < 180 Plan: -stop antibiotics today and monitor for evidence of infection. -remove CVL today. -continue physical therapy efforts. Discharge planning, looking for detention facility. -Ativan small doses as needed anxiety. -encourage nutritional advancement. -encourage out of bed. Quality VTE Deep Vein Thrombosis/Pulmonary Embolism Present on Admission: No
[2023-12-24] MEDS: POTASSIUM CHLORIDE IN WATER 10 MEQ/100 ML PIGGYBACK 100 MEQ IV ×6 (10:38→16:13)
[2023-12-24] MEDS: LORazepam 0.5 MG TABLET PO ×2 (10:38→20:53)
--- NOTE | 2023-12-24 11:27 | ST.SWALLOW ---
Visit Care Team Role Provider Type Yuliya Morin MD Primary Care Provider Non-Staff Specialty: Family Practice Address: [id number] [place] [address], [id number] Email: Jonathan Hines MD Other Providers Physician Specialty: Medical Address: Phone: Fax: Email: Greta Boyer MD Other Providers Physician Specialty: Medical Address: Phone: Fax: Email: Dre Saucedo MD Other Providers Physician Specialty: Medical Address: [address] [place], [address] Phone: Fax: Email: Jean Kim MD Other Providers Physician Specialty: Internal Medicine Address: Phone: Fax: Email: Rico Ribeiro MD Other Providers Physician Specialty: Medical Address: Phone: Fax: Email: Samira Camargo MD Other Providers Physician Specialty: Anesthesiology Internal Medicine Address: [address] [place] [address], [phone] Fax: Email: [email or web address] Other Providers Physician Specialty: Internal Medicine Address: [address] [place], [address] Phone: Fax: Email: [email or web address] Kb Anaya MD Other Providers Physician Specialty: Internal Medicine Address: Phone: Fax: Email: Ghanshyam Oakes MD Other Providers Physician Specialty: Medical Address: Phone: Fax: Email: Chad Whitmore MD Other Providers Physician Specialty: Internal Medicine Address: [address] [place], [address] Phone: Fax: Email: Rodrigo Tate MD Other Providers Physician Specialty: Medical Address: [address], [address] Phone: Fax: Email: Shereen George MD Other Providers Physician Specialty: Medical Address: Phone: Fax: Email: Lisa Alatorre Other Providers Physician Specialty: Medical Address: Phone: Fax: Email: Elsie Nelson MD Other Providers Physician Specialty: Internal Medicine Address: Phone: Fax: Email: Freya Ambrocio MD Emergency Provider Physician Referring Provider Specialty: Emergency Medicine Address: [address] [facility] [place], [address] Email: [email or web address], [email or web address] Admit Provider Physician Attending Provider Specialty: Internal Medicine Address: [address] [place] [address], [address] Email: [email or web address] Modified Barium Swallow Study MAJOR ACCOUNT MANAGER Modified Barium Swallow Study Start: 12/24/23 09:04 Freq: Status: Active Protocol: Document 12/24/23 09:05 CG (Rec: 12/24/23 09:37 CG [id number]) Modified Barium Swallow Study Total Time Visit Start Time 08:25 Visit Stop Time 08:45 Total Visit Minutes 20 Visit Information Visit Number [address] Porras Reason for Referral dysphagia Setting Setting Acute Care Patient Information Identification Type Name,ID Wristband Patient History Per H&P: is a 63yo M with PMH of opioid dependence, ankylosing spondylitis, tobacco use, alcohol use, GERD , HTN, and previous sepsis with PNA requiring intubation then trach/PEG in 2022 who presents with altered mental status and unable to protect airway after smoking percocets . Patient was extubated on . Per his neice he was at home and hasn't been feeling well the past several days with a cough. He then somehow obtained percocets and smoked them and became unresponsive. Was given narcan by EMS in the field and had improvement in AMS. In the ED patient satting in the 50's so was intubated. Pt was also receiving tube feedings. Pt was initially extubated on 12/20/2023 at 11: 30 and was ordered a diet of level 0 - thin liquids and level 6 - soft and bite size solids. Since initial MAJOR ACCOUNT MANAGER bedside swallow evaluation, pt 's status has apparently declined. He has become less responsive, more fatigued, and less able to tolerate PO intake. Subjective Observations Pt was brought ot the fluoroscopy room seated in the fluoroscopy chair. The procedures and instructions were described for the patient . At first, the pt was stating I don't feel good, and did not want to proceed with study. MAJOR ACCOUNT MANAGER further explained the purpose of the study, including goal to determine if pt was safe to drink his preferred drinks (e. g. Pepsi). Asked pt if he would be agreeable to just completing small sips of liquid rather than completing the full study. Pt verbalized agreement to these trials and MAJOR ACCOUNT MANAGER proceeded with MBS. Patient Positioning Position View Lateral Imaging Lateral View Textures Administered Trials Presented Thin Liquid via Spoon (IDDSI 0 ),Mildly Thick Liquid via Spoon (IDDSI 2),Moderately Thick Liquid via Spoon (IDDSI 3) Barium Tablet No The IDDSI Framework Protocol: IDDSI.1 Oral Impairment Source: The Modified Barium Swallow Impairment Profile (MBSImP??) Lip Closure Escape progressing to mid-chin Tongue Control During Bolus Hold Posterior escape of greater than half of bolus Bolus Preparation/Mastication Minimal chewing/mashing with majority of bolus unchewed Bolus Transport/Lingual Motion Slowed tongue motion Oral Residue Residue collection on oral structures Initiation of Pharyngeal Swallow Bolus head at pyriforms Additional Oral Impairment Observations The patient presents with severe impairments in the oral phase across trials, despite only teaspoon trials of liquids (thin, mildly thick, moderately thick) being presented. Lingual A-P motion and bolus propulsion is extremely weakened, resulting in oral residue on the lingual surface. Tongue control during bolus hold is decreased , resulting in premature spillage of the bolus to the vallecula across trials. During one trial of thin liquid (teaspoon), greater than half of the bolus is observed to spill into the vallecula prior to initiation of A-P lingual movement. Pudding trial and solid trial were omitted for pt comfort and due to safety concerns with solid bolus, resulting in a minimal score for bolus preparation per MBSImp protocol. Pharyngeal Impairment Source: The Modified Barium Swallow Impairment Profile (MBSImP??) Soft Palate Elevation No bolus between soft palate & pharyngeal wall Laryngeal Elevation Part.sup.move.thyroid cart/ part.approx.arytenoids to epiglot.petiole Anterior Hyoid Excursion Partial anterior movement Epiglottic Movement Partial inversion Laryngeal Vestibular Closure None; wide column air/contrast in laryngeal vestibule Pharyngeal Stripping Wave Present - diminished Pharyngoesophageal Segment Opening Minimal distension/minimal duration; marked obstruction of flow Tongue Base Retraction Wide column of contrast/air betwn tongue base & post. pharyngeal wall Pharyngeal Residue Majority of contrast within/on pharyngeal structures Additional Pharyngeal Impairment The patient presents with Observations severe impairments in the pharyngeal phase of the swallow. A wide column of air is present between the posterior surface of the epiglottis and the arytenoid cartilages in the early swallow, which remains mostly present through the height of the swallow. Severely impaired laryngeal elevation results in the absence of approximation of the arytenoids to the epiglottic petiole, which in turn leaves the airway open and unprotected throughout the height of the swallow. Epiglottic inversion is also minimal, with the epiglottis never crossing the horizontal plane. This likely resutls from the pt's severely weakened anterior hyoid excursion, and it subsequently causes a buildup of vallecular residue which is later observed to trickle into the laryngeal vestibule and eventually aspirated, as described in the section below . The pharyngeal stripping wave is diminished, particularly at the level of the superior and middle pharyngeal constrictors. Additionally, the pt's PES opening is markedly impaired, with minimal distension and minimal duration of opening. This results in severe pharyngeal residue above the PES due to obstruction of bolus flow; this residue is then observed to flow anteriorly into the laryngeal vestibule after the swallow where it is eventually aspirated, as described in the section below. Tongue base retraction is also impaired, resulting in a wide column of contrast between the base of tongue and the posterior pharyngeal wall at the height of the swallow. This further contributes to the presence of vallecular residue as previously described. Penetration/aspiration: All trials (thin tsp, mildly thick tsp, moderately thick tsp) were characterized by at least flash penetration of contrast into the laryngeal vestibule, with 4 of 5 trials demonstrating deep penetration into the laryngeal vestibule during the swallow. Additionally, after the swallow, residue in the vallecula is observed to flow inferiorly through the laryngeal vestibule while residue from the pyriform sinuses flow anteriorly and into the laryngeal vestibule. After each swallow, as residue thins with saliva, it flows from the vallecula and pyriforms into the laryngeal vestibule where it trickles slowly to the level of the vocal folds. No attempt is made to eject the bolus from the laryngeal vestibule. After a swallow of honey thick /moderately thick liquid, aspirated material is observed below the vocal folds in the trachea prior to the initiation of the next swallow . Presumably, this material continued to flow through the vocal folds between swallows while fluoro was turned off. To summarize, the patient presents with deep penetration during the swallow which gradually leads to aspiration of penetrated material after the swallow or on subsequent swallows as the material passes through the vocal folds into the trachea. A/P View The IDDSI Framework Protocol: IDDSI.1 Clinical Impressions Dysphagia Type Oral,Pharyngeal Findings The patient presents with severe oropharyngeal dysphagia at this time, which appears to result from diffuse and profound muscular weakness throughout the oral and pharyngeal system. Given the pt's current medical status, his current swallow status is likely impacted by multiple contributing factors including poor pulmonary function, recent use of of benzodiazepines (Ativan) and antipsychotics (Seroquel) contributing to fatigue and discoordination, and pre- existing GERD possibly related to poor PES function. The pt does present as an aspiration risk at this time across all consistencies trialed. Of note, the pt was only trialed with tsp boluses; even if these had been tolerated, the pt would be at risk for dehydration due to lack of efficiency with liquid intake. Solid trials were withheld for patient comfort and safety. Pt's swallow function may improve as overall strength improves, but unable to determine at this time. Additionally, patient may be able to execute positional maneuvers (e.g. chin tuck), which could aid in swallow safety, if strength improves. At this time, however, the pt is unable to complete a chin tuck (this was trialed during MBS). Currently, the pt does not appear safe for any liquid consistencies, regardless of thickness. NPO would be the safest recommendation. Consuming ice chips only would be a less safe, but more comfortable, option. Strict oral care will reduce risk of aspiration pneumonia across the board. *Thickened liquids are NOT RECOMMENDED at this time as they do not decrease aspiration risk based on MBS.* Additionally, research indicates that thickened liquids pose a greater risk of leading to aspiration pneumonia if aspirated than plain thin water. Rehabilitation Potential Fair Patient Appropriate for Therapy Yes Recommendations Diet Diet Order Minced & Moist (IDDSI 5) Medication Recommendation Crushed in Carrier Comments Recc ice chips, strict oral care, minced/moist solids Treatment Plan Therapy Recommendations Inpatient Speech Therapy Short Term Goals Pt education for safe swallowing and swallow exercises will be provided in verbal and written format for pt. Pt will safely tolerate PO intake without s/sx aspiration to meet hydration and nutrition needs. Placement Recommendation After Discharge Custodial Facility,[facility],Palliative Care
--- NOTE | 2023-12-24 12:51 | SLP.IPNOTE ---
WILDLIFE BIOLOGY TECHNICIAN communicated with pt's nurse (Jorge) and with MD (Dr. Milan) via phonecall 12:40-12:50pm to touch base regarding pt's goals of care r/t PO intake. MD reports having had a discussion with the pt and pt has expressed understanding that he is at risk of aspirating food if he continues with PO intake. Pt is also still a full code and does wish to be re-intubated if necessary. MD expressed that the current plan will be no PO liquids other than ice chips, with the goal of reducing risk of aspirating liquids (though the risk of aspirating solids remains present). MD to monitor for dehydration to determine if IV fluids are necessary. WILDLIFE BIOLOGY TECHNICIAN recommends that nursing remind the pt of risks of PO intake of solids at mealtime in order to obtain ongoing informed consent. Also discussed maintaining oral care to reduce bacterial load in the oral cavity to decrease risk to lungs from potentially aspirated material.
--- NOTE | 2023-12-24 12:53 | DI.RAD.S_ITS ---
PROCEDURE: [place] BARIUM SWALLOW W SPEECH INDICATIONS: dysphagia COMPARISON: TECHNIQUE: Examination was conducted in conjunction with speech pathology per standard protocol. In the lateral projection, filming was performed of the patient swallowing. AP projection filming may also be performed with patient swallowing. COMPARISON: [facility], , [place] BARIUM SWALLOW W SPEECH, 11/28/2022, 14:07. FINDINGS: Function: There is laryngotracheal penetration and small aspiration. Morphology: No cricopharyngeal bar is identified. No cervical esophageal webs. No Zenker's diverticulum. No strictures. IMPRESSION: Laryngotracheal penetration and small aspiration. Please refer to the dedicated speech therapy swallowing evaluation report which will be independently generated. Dictated by: Olvin Cespedes M.D. on 12/24/2023 at 9:16 Approved by: Olvin Cespedes M.D. on 12/24/2023 at 9:17
--- NOTE | 2023-12-24 13:14 | PT.IPTN ---
Current Diagnoses Sepsis, unspecified organism (12/14/23) Unspecified severe protein-calorie malnutrition (12/14/23) Hypo-osmolality and hyponatremia (12/14/23) Delirium due to known physiological condition (12/14/23) Other stimulant abuse, in remission (12/14/23) Adenoviral pneumonia (12/14/23) Respiratory syncytial virus pneumonia (12/14/23) Acute respiratory failure with hypoxia (12/14/23) Chronic respiratory failure with hypercapnia (12/14/23) Physical Therapy Treatment Note M2 PT-IP Current Condition Start: 12/21/23 13:07 Freq: NEEDED Status: Active Protocol: Document 12/21/23 11:45 AB (Rec: 12/21/23 13:24 AB [id number]) Physical Therapy Current Condition Current Condition Evaluation Date 12/21/23 Treatment Diagnosis respiratory failure; septic shock; difficulty in walking Onset Date 12/14/23 M3 PT-IP Subjective Start: 12/21/23 13:07 Freq: NEEDED Status: Active Protocol: Document 12/24/23 13:44 TS (Rec: 12/24/23 13:57 TS [id number]) Subjective Physical Therapy Visit Type Type Treatment Note Visit Start Time 13:14 Visit Stop Time 13:37 Number of HYBRID DERIVATIVES TRADER Visits 1 Physical Therapy Visit Comments Patient Comments Pt found resting in bed, with some motivation agreed to sit up on EOB, nursing in room to inspect bed wound. M4 PT-IP Mobility and Gait Start: 12/21/23 13:07 Freq: NEEDED Status: Active Protocol: Document 12/24/23 13:44 TS (Rec: 12/24/23 13:57 TS [id number]) PT-Bed Mobility Assessment Rolling Type of Rolling Roll to Left Level of Assist Minimal Assistance Supine to Sit Supine to Sit Minimal Assistance,1 Person Assistance,Head of Bed Elevated Sit to Supine Sit to Supine Minimal Assistance Scooting Scooting to Edge of Bed Minimal Assistance PT-Transfer Assessment Comments Mobility Comments Pt found resting in bed, Spo2 88% on RA, HR ~100 prior to mobility. Supine to sit Mar for LEs and uprighting trunk to sitting position. Pt sat EOB with no UE support for ~ 5mins. pt initially agreed to attempt to stand but reported not feeling well and laid back in bed. Pt rolled to L side for change of brief Mar with use of bed rail. Pt was left with nursing tending to needs. Gait Assessment Comments Gait Comments Not at this time PT-Balance Assessment Sitting Balance and Reactions Static Sitting Balance Ability Good Dynamic Sitting Balance Ability Fair Comments Other Balance Tests/Deviations/Treatment Pt did not attempt to stand : this afternoon. M5 PT-IP Objective Assessments Start: 12/21/23 13:07 Freq: NEEDED Status: Active Protocol: Document 12/21/23 11:45 AB (Rec: 12/21/23 13:24 AB [id number]) Orientation Orientation/Cognition Level of Alertness Alert Orientation Name,Place,Situation Safety Awareness Decreased Safety Awareness Gross Range of Motion Lower Extremity ROM Assessment Within Functional Limits Strength Comments Strength Comments RLE: 3+/5 LLE: 4-/5 Sensation Assessment Comments Sensation Comments c/o chronic tingling on BLE Muscle Tone Muscle Tone WNL Yes M6 PT-IP Treatment Start: 12/21/23 13:07 Freq: NEEDED Status: Active Protocol: Document 12/24/23 13:44 TS (Rec: 12/24/23 13:57 TS [id number]) Physical Therapy Treatment Education Education Provided Safety M7 PT-IP Assessment and Plan Start: 12/21/23 13:07 Freq: NEEDED Status: Active Protocol: Document 12/24/23 13:44 TS (Rec: 12/24/23 13:57 TS [id number]) PT Summary Assessment and Plan Summary Impairments Pain,ROM,Strength,Balance, Coordination,Cognition,Bed Mobility,Transfers,Gait, Activity Tolerance Progress Towards Goals Slow Progress due to Medical Issues,Slow Progress due to Activity Tolerance Assessment Summary José Miguel is making slow progress with his mobility. He required increased assist to Mar for bed mobility and requires max cueing. Pt initially agreed to stand sitting from EOB, he reported feeling very fatigued and required to lay back in bed. Pt did not attempt OOB mobility this session. PT continues to recommend SNF at this time to improve strength and activity tolerance. Goals Bed Mobility Goal Independent Transfer Goal Independent,Front Wheeled Walker Gait Goal Independent,Front Wheel Walker Gait Distance 50 Other Goals improve bed mobility, transfers and ambulation using LRAD 150 ft mod I up/down 1 step using LRAD/ without AD sBA Days to Meet Goals 10 Frequency of Treatment Frequency Of Treatment Once a Day Treatment Plan Physical Therapy Treatment Plan Bed Mobility Training,Transfer Training,Gait Training, Therapeutic Exercise,Balance Retraining,Discharge Planning, Hot or Cold Pack,Neuromuscular Re-ed,Coordination Retraining ,Manual Therapy Precautions Other Precautions falls; MRSA nares Recommendations To Nursing Amount of Assist Needed 1 Person Assist Discharge Recommendations PT Discharge Recommendations SNF Rehab Transportation Needs at Discharge Wheelchair/Cabulance
--- NOTE | 2023-12-24 14:25 | PC.WOUNDPHOT ---
Addendum entered by Jorge Hunt R.N. 12/24/23 14:33: photo #1 left hip area of blanchable reddness. Allevyn gentle border dressing applied for protection and cushion. Continue to monitor and offload area of pressure. photo #2 and #3 buttocks wound, unstageable pressure ulcer with largest area noted at 3cm by 4cm. MD Milan notified. Allevyn gentle border dressing placed, continue to offload area and monitor. Original Note:
[2023-12-24 15:52] LABS: Magnesium 1.9 mg/dL (1.6-2.3)
--- NOTE | 2023-12-24 16:04 | DIET.CONS ---
Dietary Consultation Note Admission Date: 12/14/2023 14:22 Assessment: 63y M at LOS day 10 s/p extubation and removal of OG tube nutrition support. Pt with severe acute on chronic Protein Calorie Malnutrition with unstagable sacral ulcer. Pt with severe global muscle and fat losses, severe scooping of clavicles, zygomatic arches, intercostals, BMI 16.7. Pt unable to complete full MBSS with FASHION BUYER due to fatigue. Pt only able to trial liquids and failed all trials. Pt not safe for any PO liquid intake besides minimal ice chips. FASHION BUYER unable to assess solids, however, IDDSI 5 safest level of solid intake at this time. Per nursing, pt too somnolent to consume PO today. This RD asked patient if he would accept placement of feeding tube (NG) to help with nutrition status. Pt states he needs to figure some things out and would like to decide on the nutrition support tomorrow (12/25/23). Pt's preference at this time is to consume sandwiches and soda as well as to be placed back on ventilator as needed. Care Management having difficulty contacting POA for goals of care conference. Speech Therapy to continue assessing patient daily for diet reccs and potential advancement. Pt would benefit from placement of NG tube to deliver necessary hydration and nutrition to support malnourished state, however, pt currently unsure if he desires artificial nutrition support. Pt hx includes PEG placement one year ago which since has been removed. Ht: 172.72 cm Wt: 49.7 kg BMI: 16.7 (severe) Last BM: 12/24/23 (12/24/23 07:04) Inder Score: 17 Diet: 12/23/23 Dinner Dysphagia Diet Diet Modifications: ICE CHIPS ONLY for liquids. Minced/moist solids Food Texture: Level 5 - Minced & Moist Liquid Consistency: Level 0 - Thin Nutrition Percent Meal Consumed 50% 12/23/23 13:18 Labs: RBC 3.46 X10^6/uL (4.5-5.9) L 12/24/23 04:00 Hgb 9.3 g/dL (13.5-17.5) L 12/24/23 04:00 Hct 28.4 % (41-53) L 12/24/23 04:00 Creatinine 0.26 mg/dL (0.66-1.25) L 12/24/23 04:00 Lactate 0.9 mmol/L (0.7-2.1) 12/14/23 12:02 NT-Pro-B Natriuret Pep 8410 pg/mL (<125) H 12/14/23 10:03 Nutrition Diagnosis: Severe Acute on Chronic Protein Calorie Malnutrition r/t inability to safely consume POs aeb BMI 16.7 (severe), MBSS shows pt currently unsafe for PO liquid intake, pt too somnolent for solid intake and wavering on desire for nutrition support via feeding tube short vs senior living. Interventions: 1. Recc IVF to meet hydration needs until diet advanced or pt elects nutrition support. Monitoring/Evaluations: RD to meet with care team and patient in morning regarding nutrition support. Electronically Signed by: Pati Parikh 12/24/23 16:04 [address] [address]
--- NOTE | 2023-12-24 16:25 | CM.DPNOTE ---
DCP Note CASEWORKER INTAKE reviewed EMR. Per provider in morning rounds, pt likely here another few days. Remains medically unstable to dc home. From [facility], unable to accept pt due to insurance rate/needs/recent Hx of Substance use. No other SNFs in area are able to accept or are contracted with his insurance. CASEWORKER INTAKE attempted to contact son Yifan on the multiple numbers on file to attempt to continue to coordinate safe dcp for home. no response. From speech therapy, pt only able to do trial of liquids and failed all trials for barium swallow. Speech recommending no PO liquids at this time. Per dietary note, attempted to see if pt would accept NG feeding tube. Per dietary report, pt requested to decide on nutrition support tomorrow. Pt continues to be full code and reports wanting to be placed back on ventilator if needed. Per RN/provider/RT, pt's condition has declined throughout the day and is at risk of being re-intubated. CASEWORKER INTAKE called pt's ex- Mercedes (p [phone]) in an attempt to reach POPierre Saha. CASEWORKER INTAKE updated Mercedes that pt was declining and our medical team here was hoping to get some input from Yifan for medical decisions. Mercedes reported her and Yifan would come to immediately. CASEWORKER INTAKE updated staffing and scheduling coordinator. Plan: POC continues. CM team will continue to work as closely as possible with family to coordinate DCP home. CM team will continue to follow closely. VARGAS Curran
--- NOTE | 2023-12-24 16:41 | PC.NURSE ---
Addendum entered by Jorge Hunt R.N. 12/24/23 18:23: Dr. Milan met with patient's son Yifan and patient's ex at the bedside today, see updated MD report for discussion. Patient currently on oxymask at 8L, initially patient was pulling it off repeatedly. PRN dilaudid given as ordered and patient is more restful at this time. RT notified of updates, Riki RT evaluates and does not feel patient will tolerate high kathya 02 at this time, encourages use of oxymask at up to 15L as needed at this time. Bed alarm on. Continue to follow. Original Note: Patient reported insomnia for 4 days this morning, reports being tired and starting to see things I'm so tired. Patient participated in his MBS with ST, when patient came back from test he requested a peanut butter and jelly sandwich multiple times. Per ST Christa no solid foods were trialed during the MBS but patient was having delayed aspiration with all forms of liquids. Per ST NPO except ice chips after strict oral care is safest at this time. New PIV started to LEATHA patient tolerated well. HARSH PIV and discontinued as well as central line dc'd intact. Patient attempted to work with P.T. but unable to tolerate more than dangling at bedside. Patient becoming increasingly fatigued and lethargic. Approx 1500 patient desaturated to 73%, patient alert but lethargic, respiratory status is increasingly labored. RT and Dr. Milan notified and to bedside. Patient placed on 2L NC then moved to oxymask by RT as patient is mouth breathing. Will continue to monitor closely.
[2023-12-24] MEDS: HYDROMORPHONE 0.5 MG INJ IV ×3 (19:14→22:09)
[2023-12-25] VITALS (148 sets, daily range): BP systolic 86–142; BP diastolic 56–85; PULSE 95–124; RESP 8–59; TEMP 36.3–37.5; O2SAT 77–100
[2023-12-25] MEDS: HYDROMORPHONE 0.5 MG INJ IV ×8 (00:07→18:44)
[2023-12-25] MEDS: LORazepam 0.5 MG TABLET PO (03:54)
[2023-12-25] MEDS: HEPARIN 5,000 UNIT/ML VIAL 5000 UNIT SUBCUT ×3 (06:00→21:44)
[2023-12-25 06:15] LABS: Hematocrit 31.2 % (41-53); Hemoglobin 9.9 g/dL (13.5-17.5); Mean Corpuscular HGB Conc 31.9 % (30-36); Mean Corpuscular Hemoglobin 26.6 PG (26-34); Mean Corpuscular Volume 83.3 fL (80-100); Platelet Count 766 X10^3/uL (150-400); Red Blood Cell Count 3.74 X10^6/uL (4.5-5.9); White Blood Cell Count 19.8 X10^3/uL (4.5-11.0)
[2023-12-25 06:16] LABS: Add Manual Diff / Slide Review YES
--- NOTE | 2023-12-25 06:17 | PC.NURSE ---
Color Specialist Note-Patient has been fatigued with mumbled speech. On 5L Oximask keeping sats >90%, goes to 85% on RA, weak non-productive cough. SR/ST, PACs, BP stable, see vital trends. IV Dilaudid given Q1h prn for pain and respiratory distress, Ativan SL Q8h prn anxiety. Voiding via condom catheter. Family in room early in shift, son Yifan took patients wallet with him at 2145.
[2023-12-25 06:28] LABS: BUN Creatinine Ratio 35.3 (6-22); Blood Urea Nitrogen 12 mg/dL (9-20); Calcium 8.8 mg/dL (8.4-10.2); Chloride 92 mmol/L (98-107); Estimated Glomerular Filt Rate > 60 mL/min (>60); Glucose 78 mg/dL (80-110); HEMOLYSIS < 15 (0-50); Magnesium 1.9 mg/dL (1.6-2.3); Potassium 4.5 mmol/L (3.4-5.1); Sodium 134 mmol/L (137-145)
[2023-12-25 06:35] LABS: Anisocytosis 1+; Neutrophils Absolute Manual 18216 /uL (3000-5900); Platelet Estimate Increased on smear; Total Cells Counted 100
[2023-12-25 06:44] LABS: Carbon Dioxide 41 mmol/L (22-32)
[2023-12-25] MEDS: SODIUM CHLORIDE 0.9% FLUSH 10 ML IV ×2 (08:50→21:45)
--- NOTE | 2023-12-25 09:06 | P.PN_ITS ---
Subjective Subjective Interval history: Sedated and not interactive. Exam Vital Signs (past 8 hours): - 12/25/23 01:10 12/25/23 01:15 12/25/23 01:20 Temperature Pulse Rate 101 H 102 H 101 H Respiratory Rate 26 H 24 25 H Blood Pressure Pulse Oximetry 100 100 100 Oxygen Delivery Method Oxygen Flow Rate 12/25/23 01:25 12/25/23 01:30 12/25/23 01:35 Temperature Pulse Rate 101 H 100 H 107 H Respiratory Rate 23 24 26 H Blood Pressure Pulse Oximetry 100 100 100 Oxygen Delivery Method Oxygen Flow Rate 12/25/23 01:40 12/25/23 01:45 12/25/23 01:50 Temperature Pulse Rate 111 H 111 H 105 H Respiratory Rate 37 H 33 H 26 H Blood Pressure Pulse Oximetry 100 99 99 Oxygen Delivery Method Oxygen Flow Rate 12/25/23 01:55 12/25/23 02:00 12/25/23 02:05 Temperature Pulse Rate 109 H 110 H 109 H Respiratory Rate 27 H 31 H 35 H Blood Pressure Pulse Oximetry 100 98 100 Oxygen Delivery Method Oxygen Flow Rate 12/25/23 02:10 12/25/23 02:15 12/25/23 02:20 Temperature Pulse Rate 109 H 107 H 108 H Respiratory Rate 32 H 30 H 29 H Blood Pressure Pulse Oximetry 100 100 100 Oxygen Delivery Method Oxygen Flow Rate 12/25/23 02:25 12/25/23 02:30 12/25/23 02:35 Temperature Pulse Rate 107 H 109 H 106 H Respiratory Rate 30 H 39 H 39 H Blood Pressure Pulse Oximetry 99 100 99 Oxygen Delivery Method Oxygen Flow Rate 12/25/23 02:40 12/25/23 02:45 12/25/23 02:50 Temperature Pulse Rate 108 H 108 H 108 H Respiratory Rate 41 H 27 H 34 H Blood Pressure Pulse Oximetry 100 100 100 Oxygen Delivery Method Oxygen Flow Rate 12/25/23 02:55 12/25/23 03:00 12/25/23 03:05 Temperature Pulse Rate 109 H 107 H 105 H Respiratory Rate 48 H 35 H 39 H Blood Pressure Pulse Oximetry 99 99 98 Oxygen Delivery Method Oxygen Flow Rate 12/25/23 03:10 12/25/23 03:15 12/25/23 03:20 Temperature Pulse Rate 108 H 109 H 107 H Respiratory Rate 54 H 49 H 38 H Blood Pressure Pulse Oximetry 88 L 93 93 Oxygen Delivery Method Oxygen Flow Rate 12/25/23 03:25 12/25/23 03:30 12/25/23 03:35 Temperature Pulse Rate 106 H 104 H 105 H Respiratory Rate 39 H 33 H 41 H Blood Pressure Pulse Oximetry 96 97 98 Oxygen Delivery Method Oxygen Flow Rate 12/25/23 03:40 12/25/23 03:45 12/25/23 03:50 Temperature 97.4 F L Pulse Rate 106 H 111 H 108 H Respiratory Rate 41 H 59 H 43 H Blood Pressure Pulse Oximetry 96 92 91 Oxygen Delivery Method Oxygen Flow Rate 5 12/25/23 04:15 12/25/23 04:20 12/25/23 04:25 Temperature 97.6 F Pulse Rate 104 H 104 H 103 H Respiratory Rate 40 H 29 H 34 H Blood Pressure 86/56 L Pulse Oximetry 88 L 97 98 Oxygen Delivery Method Oxygen Flow Rate 12/25/23 04:30 12/25/23 04:35 12/25/23 04:40 Temperature Pulse Rate 103 H 105 H 108 H Respiratory Rate 32 H 34 H 40 H Blood Pressure Pulse Oximetry 98 97 96 Oxygen Delivery Method Oxygen Flow Rate 12/25/23 04:45 12/25/23 04:50 12/25/23 04:55 Temperature Pulse Rate 106 H 105 H 107 H Respiratory Rate 35 H 23 28 H Blood Pressure Pulse Oximetry 97 99 99 Oxygen Delivery Method Oxygen Flow Rate 12/25/23 05:00 12/25/23 05:05 12/25/23 05:10 Temperature Pulse Rate 108 H 109 H 104 H Respiratory Rate 31 H 37 H 22 Blood Pressure Pulse Oximetry 99 97 97 Oxygen Delivery Method Oxygen Flow Rate 12/25/23 05:15 12/25/23 05:20 12/25/23 05:25 Temperature Pulse Rate 101 H 102 H 100 H Respiratory Rate 20 18 14 Blood Pressure Pulse Oximetry 95 93 97 Oxygen Delivery Method Oxygen Flow Rate 12/25/23 05:30 12/25/23 05:35 12/25/23 05:40 Temperature Pulse Rate 100 H 102 H 101 H Respiratory Rate 14 18 19 Blood Pressure Pulse Oximetry 93 93 91 Oxygen Delivery Method Oxygen Flow Rate 12/25/23 05:45 12/25/23 05:50 12/25/23 05:55 Temperature Pulse Rate 102 H 101 H 100 H Respiratory Rate 16 16 18 Blood Pressure Pulse Oximetry 91 92 93 Oxygen Delivery Method Oxygen Flow Rate 12/25/23 06:00 12/25/23 06:05 12/25/23 06:10 Temperature Pulse Rate 107 H 110 H 102 H Respiratory Rate 23 26 H 17 Blood Pressure Pulse Oximetry 94 95 93 Oxygen Delivery Method Oxygen Flow Rate 12/25/23 06:15 12/25/23 06:20 12/25/23 06:25 Temperature Pulse Rate 100 H 99 H 100 H Respiratory Rate 16 15 17 Blood Pressure Pulse Oximetry 92 92 92 Oxygen Delivery Method Oxygen Flow Rate 12/25/23 06:30 12/25/23 06:35 12/25/23 06:40 Temperature Pulse Rate 100 H 100 H 100 H Respiratory Rate 17 18 16 Blood Pressure Pulse Oximetry 92 92 92 Oxygen Delivery Method Oxygen Flow Rate 12/25/23 06:45 12/25/23 06:50 12/25/23 06:55 Temperature Pulse Rate 100 H 100 H 99 H Respiratory Rate 15 17 18 Blood Pressure Pulse Oximetry 93 92 93 Oxygen Delivery Method Oxygen Flow Rate 12/25/23 07:00 12/25/23 07:00 12/25/23 07:05 Temperature Pulse Rate 100 H 98 H Respiratory Rate 15 17 Blood Pressure Pulse Oximetry 92 92 Oxygen Delivery Method Oximask Oxygen Flow Rate 12/25/23 07:10 12/25/23 07:15 12/25/23 07:20 Temperature Pulse Rate 99 H 99 H 99 H Respiratory Rate 17 16 17 Blood Pressure Pulse Oximetry 92 93 92 Oxygen Delivery Method Oxygen Flow Rate 12/25/23 07:25 12/25/23 07:30 12/25/23 07:30 Temperature Pulse Rate 100 H 100 H Respiratory Rate 17 16 Blood Pressure 86/56 L Pulse Oximetry 92 92 Oxygen Delivery Method Oxygen Flow Rate 12/25/23 07:35 12/25/23 07:40 12/25/23 07:42 Temperature Pulse Rate 106 H 109 H Respiratory Rate 18 24 Blood Pressure 116/76 Pulse Oximetry 93 95 Oxygen Delivery Method Oxygen Flow Rate 12/25/23 07:42 12/25/23 07:45 12/25/23 07:50 Temperature Pulse Rate 109 H 109 H 109 H Respiratory Rate 39 H 28 H 32 H Blood Pressure Pulse Oximetry 94 93 90 L Oxygen Delivery Method Oxygen Flow Rate 12/25/23 07:55 12/25/23 08:00 12/25/23 08:05 Temperature Pulse Rate 109 H 109 H 110 H Respiratory Rate 36 H 42 H 39 H Blood Pressure Pulse Oximetry 88 L 87 L 90 L Oxygen Delivery Method Oxygen Flow Rate Fraction of Inspired Oxygen 24 SaO2/FiO2 Ratio 404 Oxygen Delivery Method Oximask Oxygen Flow Rate 5 Narrative Exam Narrative: Appears comfortable on oxymask. Lungs rhonchorous and increased rate of breathing. CV tachycardic. Abdomen flat and soft. No leg edema. Objective Labs 12/25/23 06:00 12/25/23 06:00 Labs: Laboratory Results - last 24 hr 12/24/23 12/25/23 04:00 06:00 WBC 19.8 H RBC 3.74 L Hgb 9.9 L Hct 31.2 L MCV 83.3 MCH 26.6 MCHC 31.9 RDW 16.0 H Plt Count 766 H Neut % (Auto) Not Reportable Lymph % (Auto) Not Reportable Randall % (Auto) Not Reportable Eos % (Auto) Not Reportable Baso % (Auto) Not Reportable Lymph # (Auto) Not Reportable Randall # (Auto) Not Reportable Baso # (Auto) Not Reportable Total Counted 100 Seg Neutrophils % 88.0 H Band Neutrophils % 4.0 Lymphocytes % (Manual) 5.0 L Monocytes % (Manual) 2.0 Basophils % (Manual) 1.0 Neutrophils # (Manual) 11284 H Platelet Estimate Increased on smear RBC Morphology See below Anisocytosis 1+ H Sodium 134 L Potassium 4.5 D Chloride 92 L Carbon Dioxide 41 H* BUN 12 Creatinine 0.34 L Estimated GFR > 60 BUN/Creatinine Ratio 35.3 H Glucose 78 L Calcium 8.8 Magnesium 1.9 1.9 PFSH Medical History Tracheostomy in place Sepsis Muscle pain Foot pain Ankle pain Chronic back pain Acid reflux Tobacco use disorder, moderate, in early remission Hypertension Ankylosing spondylitis Alcohol abuse Ankylosing spondylitis (1985) GERD (gastroesophageal reflux disease) Hypertension Fracture cervical vertebra-closed Surgical History Status post incision and drainage History of open reduction and internal fixation (ORIF) procedure (2005) Status post colonoscopy (2012) History of tonsillectomy Family History Father No problems noted. Mother Cancer Other Alcoholism Colorectal cancer Social History household members: family Smoking Status: Current every day smoker Assessment & Plan Assessment & Plan narrative: 1. Acute hypoxemic respiratory failure, POA and improving. -secondary to possible aspiration pneumonia, sepsis. May have component of chronic respiratory failure with presenting adeno and rhinoviral infections as well. -intubated on admit, tube exchanged 12/15. Extubated 12/20. 2. Septic shock, POA and resolved. -cont pressor support if needed, maintain MAP > 65 -PCR + adenovirus, + entero/rhino, +nasal MRSA -Abx changed to ceftriaxone 12/21.- 3. Acute metabolic encephalopathy, POA and worse again. 4. Acute hyponatremia, POA and improved. -SIADH 5. Severe protein calorie malnutrition, POA and active. -advancing diet with limitations as noted per speech therapy. 6. Hypomagnesemia, hypokalemia, present on admission and improving. -supplementing. 7. DM 2, POA and active. -cont SC insulin. - Goal BS < 180 He had a significant deterioration in respiratory status and December 24. I met with the patient's family and discussed his poor prognosis as well as high likelihood of either not surviving another intubation event or required another tracheostomy and a significant post hospital recovery. Ultimately they agreed to DNI and DNR. The patient is continued on antibiotics but his care is primarily comfort based. We will discuss further comfort measures with him today as well. Quality VTE Deep Vein Thrombosis/Pulmonary Embolism Present on Admission: No
[2023-12-25] MEDS: cefTRIAXone 1,000 MG in SODIUM CHLORIDE 0.9% 100 ML 200 MG IV (09:19)
--- NOTE | 2023-12-25 09:47 | PT-IP ANOTE ---
Per nursing, pt not appropriate for therapy due to declining medical status.
--- NOTE | 2023-12-25 10:52 | CM.DPNOTE ---
DCP Note [employer] PRE NEED CONSULTANT reviewed EMR. Per provider PN/provider in morning rounds, last night POA/family changed pt's code status to DNR/DNI due to pt deconditioning throughout the day yesterday. Per provider PN, pt is sedated and not interactive. Per provider in morning rounds, provider will continue to discuss further comfort measures with pt POA/family today to continue to develop POC. Per RN note, Riki from RT does not feel pt will tolerate high flow O2 at this time and encouraged use of oxymask up to 15L as needed at this time. CM team will continue to follow closely as POC/potential comfort care continues. VARGAS Curran
--- NOTE | 2023-12-25 11:28 | PC.NURSE ---
at the beginning of the shift, pt was very lethargic, at times non-verbal with moaning; around 1100, pt woke, asking for food (steak and omelet); speech therapy notified and she is currently seeing pt at bedside; pt is awake, alert, and able to follow instructions; he was placed on a nasal cannula at 4l for procedure and is maintaining an o2 sat >92%
--- NOTE | 2023-12-25 13:20 | PC.NURSE ---
o2 sat 100% on 4l/nc; decreased to 3l/nc; family at bedside assisting pt w/ partial bed bath and eating lunch; pt instructed to swallow hard and twice with each bite; verbalized understanding; pt ate approx 25% of lunch; wound care was here just before lunch and they changed dressing to buttock and applied barrier cream
--- NOTE | 2023-12-25 13:24 | ST.IPDYTX ---
Visit Care Team Role Provider Type Yuliya Morin MD Primary Care Provider Non-Staff Specialty: Family Practice Address: [address] [place], [address] Email: Jonathan Hines MD Other Providers Physician Specialty: Medical Address: Phone: Fax: Email: Greta Boyer MD Other Providers Physician Specialty: Medical Address: Phone: Fax: Email: Dre Saucedo MD Other Providers Physician Specialty: Medical Address: [address] [place], [address] Phone: Fax: Email: Eli Bojorquez PA-C Other Providers Advanced Clean Room Technician Specialty: Medical Wound Care Address: [address] [place] [address], [address] Email: [email or web address] Jean Kim MD Other Providers Physician Specialty: Internal Medicine Address: Phone: Fax: Email: Rico Ribeiro MD Other Providers Physician Specialty: Medical Address: Phone: Fax: Email: Samira Camargo MD Other Providers Physician Specialty: Anesthesiology Internal Medicine Address: [address] [place] [address], [address] Fax: Email: [email or web address] Mary Brice DPM Other Providers Non-Staff Specialty: Podiatry Address: [address] [place] [address], [address] Email: Mati Fu MD Other Providers Physician Specialty: Internal Medicine Address: [address] [place], [address] Phone: Fax: Email: [email or web address] Other Providers Physician Specialty: Internal Medicine Address: Phone: Fax: Email: John Pichardo MD Other Providers Physician Specialty: Wound Care Address: [address], [address] Email: [email or web address] Ghanshyam Oakes MD Other Providers Physician Specialty: Medical Address: Phone: Fax: Email: Chad Whitmore MD Other Providers Physician Specialty: Internal Medicine Address: [address] [place] [address], [address] Phone: Fax: Email: Rodrigo Tate MD Other Providers Physician Specialty: Medical Address: [address] [place] [address], [address] Phone: Fax: Email: Shereen George MD Other Providers Physician Specialty: Medical Address: Phone: Fax: Email: Lisa Alatorre Other Providers Physician Specialty: Medical Address: Phone: Fax: Email: Shawn Devi MD Other Providers Non-Staff Specialty: Wound Care Address: [address] [place] [address], [address] Email: [email or web address] Elsie Nelson MD Other Providers Physician Specialty: Internal Medicine Address: Phone: Fax: Email: Freya Ambrocio MD Emergency Provider Physician Referring Provider Specialty: Emergency Medicine Address: [address] [place] [address], [address] Email: [email or web address] [email or web address] Provider Physician Attending Provider Specialty: Internal Medicine Address: [address] [place] [address], [address] Email: [email or web address] GRAPHIC DESIGNER Dysphagia Treatment CONTRACT GRAPHIC DESIGNER Dysphagia Treatment Start: 12/23/23 12:07 Freq: Status: Active Protocol: Document 12/25/23 12:58 CG (Rec: 12/25/23 13:03 CG [id number]) Dysphagia Treatment Session Time Visit Start Time 11:15 Visit Stop Time 12:00 Total Visit Minutes 45 Visit Information Visit Number 4 Setting Assessment Location Acute Care Patient Information Subjective Observations Pt was seated partially reclined in bed upon ST arrival to room. According to recent MD report and nurse report, the pt was completely unresponsive this morning. The MD had initiated a discussion with family and pt and the pt was switched to DNR /DNI status with mostly comfort measures. However, around 10:30 the patient woke up and became alert, requesting solid foods. Upon ST entry, the pt was mroe alert than yesterday's MBS, with reduced chills, moaning, etc. He was agreeable and participative, though he still presents as profoundly weak. Treatment Liquids Trialed Thin (IDDSI 0) Solids Trialed Purred (IDDSI 4),Minced & Moist (IDDSI 5) Administration Type Tea Spoon,Dependent Feeding Oral Strategies Upright at 90 degrees, Controlled Bite/Sip Size Pharyngeal Strategies Double Swallow,Effortful Swallow,Small Bites and Sips Treatment Activities Assisted in repositioning pt for safety with PO intake. Conducted PO trials with ice chips, water, and chocolate pudding. Engaged in lengthy discussion with the pt to provide further education regarding the results of his MBSS and implications for safety versus quality of life. Consulted with nursing and MD regarding pt progress and new recommendations. The IDDSI Framework Protocol: IDDSI.1 Assessment Patient Response to Treatment Excellent Assessment of Improvement The pt appears to have an overall improvement in status as of waking up this morning. However, he still presents as profoundly weak. CONTRACT GRAPHIC DESIGNER collaborated with nursing to ensure the pt had had oral care prior to PO trials to reduce the risk of aspiration- related injury. Trials ice chips resulted in delayed wet cough. Based on MBSS results, penetration and/ or aspiration of melted ice chip is suspected. Theoretically, given recent oral care along with neutral ph and small volume of water, risk of injury from aspirating this material is decreased. However, aspiration is likely still present. Trials thin liquid via teaspoon were presented with cue to hold this in the front of your mouth and when you' re ready to swallow, swallow HARD and squeeze your throat ( effortful swallow). This resulted in immediate cough across two trials. Aspiration continues to be suspected based on clinical signs and symptoms along with results of recent instrumental. Trials pudding resulted in delayed cough on 1 of 4 trials . Cough response appeared to be reduced with cues to swallow hard and squeeze your throat and with a cue for an additional secondary swallow immediately after the first. However, it should be noted that it is impossible to rule out that the pt is silently aspirating on pudding without further instrumental assessment (pudding was omitted during yesterday's assessment). CONTRACT GRAPHIC DESIGNER spent 20-25 minutes explaining to the patient that he is at risk of aspirating anything that he takes in by mouth, which means the material could enter his lungs and further worsen his health status. The pt stated that he understood this risk, but his answers to CONTRACT GRAPHIC DESIGNER probes to determine pt's preferred plan of care were vague and indicated the pt did not fully understand the possible repercussions of each plan presented. Though the pt is oriented to place and purpose, it is difficult to determine whether he is decisional and able to make choices about his plan of care at this time. He did clearly state that he wanted to continue eating pudding consistency foods, and try to slowly beef it up. However, he was unable to state a clear decision regarding liquid intake. Therefore, CONTRACT GRAPHIC DESIGNER recommends continuing with ice chips only (combined with frequent and thorough oral care), pending further bedside trials indicating a change in swallow status. If pt appears to have a change in swallow function status, recommend a repeat MBSS to verify safety. CONTRACT GRAPHIC DESIGNER consulted with MD (Nick Milan) regarding this plan of care, and MD is in agreement to continue with ice chips and pudding/puree solids. Pt status will continue to be monitored to progress diet a) as tolerated and b) with a repeat MBSS indicating safety with new diet. Summary of recommendations: 1. Frequent and thorough oral care. 2. Ice chips only for liquid intake. 3. Pudding/puree solids with cues for effortful swallow and double swallow. 4. Continue discussion about plan of care as pt status changes. Recommendations Recommendations Downgrade Diet Order Diet Order Pureed (IDDSI 4) Medication Recommendations Crushed in Carrier Comments Recc ice chips only, strict oral care Additional Dietary Needs Controlled Sips,No Straws, Encourage to Self-Feed Aspiration Precautions Recommended Precautions Effortful Swallow,Double Swallow Treatment Plan Placement Recommendation after Discharge Custodial Facility,Group Home Care Facility,Palliative Care Appropriate for Continued Therapy Yes Therapy Recommendations 1. Pt education for safe swallowing and swallow exercises will be provided in verbal and written format for pt. 2. Pt will complete MBSS for objective evaluation of swallow function (GOAL MET). 3. Pt will tolerate trials of thin liquids and minced/moist solids without overt s/sx aspiration in order to progress to less restrictive diet (NEW GOAL 12/25/23). Dysphagia Goals Pt will safely tolerate the least restrictive diet to meet hydration and nutrition needs .
--- NOTE | 2023-12-25 13:35 | ST.IPDYTX ---
Visit Care Team Role Provider Type Yuliya Morin MD Primary Care Provider Non-Staff Specialty: Family Practice Address: [address] [place], [address] Email: Jonathan Hines MD Other Providers Physician Specialty: Medical Address: Phone: Fax: Email: Greta Boyer MD Other Providers Physician Specialty: Medical Address: Phone: Fax: Email: Dre Saucedo MD Other Providers Physician Specialty: Medical Address: [address] [place], [address] Phone: Fax: Email: Eli Bojorquez PA-C Other Providers Advanced Air Quality Specialist Specialty: Medical Wound Care Address: [address] [place] [address], [address] Email: [email or web address] Jean Kim MD Other Providers Physician Specialty: Internal Medicine Address: Phone: Fax: Email: Rico Ribeiro MD Other Providers Physician Specialty: Medical Address: Phone: Fax: Email: Samira Camargo MD Other Providers Physician Specialty: Anesthesiology Internal Medicine Address: [address] [place] [address], [address] Fax: Email: [email or web address] Other Providers Non-Staff Specialty: Podiatry Address: [address] [place] [address], [address] Email: Mati Fu MD Other Providers Physician Specialty: Internal Medicine Address: [address] [place], [address] Phone: Fax: Email: [email or web address] Anaya MD Other Providers Physician Specialty: Internal Medicine Address: Phone: Fax: Email: John Pichardo MD Other Providers Physician Specialty: Wound Care Address: [address] [place], [address] Email: [email or web address] [email or web address] [email or web address] MD Other Providers Physician Specialty: Medical Address: Phone: Fax: Email: Chad Whitmore MD Other Providers Physician Specialty: Internal Medicine Address: [address] [place] [address], [address] Phone: Fax: Email: Rodrigo Tate MD Other Providers Physician Specialty: Medical Address: [address] [place] [address], [address] Phone: Fax: Email: Shereen George MD Other Providers Physician Specialty: Medical Address: Phone: Fax: Email: Lisa Alatorre Other Providers Physician Specialty: Medical Address: Phone: Fax: Email: Shawn Devi MD Other Providers Non-Staff Specialty: Wound Care Address: [address] [place] [address], [address] Email: [email or web address] Elsie Nelson MD Other Providers Physician Specialty: Internal Medicine Address: Phone: Fax: Email: Freya Ambrocio MD Emergency Provider Physician Referring Provider Specialty: Emergency Medicine Address: [address] [place] [address], [address] Email: [email or web address] Admit Provider Physician Attending Provider Specialty: Internal Medicine Address: [address] [place] [address], [address] Email: [email or web address] STAFF NURSE ICU RESOURCE TEAM Dysphagia Treatment STAFF NURSE ICU RESOURCE TEAM Dysphagia Treatment Start: 12/23/23 12:07 Freq: Status: Active Protocol: Document 12/25/23 12:58 CG (Rec: 12/25/23 13:03 CG [id number]) Dysphagia Treatment Session Time Visit Start Time 11:15 Visit Stop Time 12:00 Total Visit Minutes 45 Visit Information Visit Number 4 Setting Assessment Location Acute Care Patient Information Subjective Observations Pt was seated partially reclined in bed upon ST arrival to room. According to recent MD report and nurse report, the pt was completely unresponsive this morning. The MD had initiated a discussion with family and pt and the pt was switched to DNR /DNI status with mostly comfort measures. However, around 10:30 the patient woke up and became alert, requesting solid foods. Upon ST entry, the pt was mroe alert than yesterday's MBS, with reduced chills, moaning, etc. He was agreeable and participative, though he still presents as profoundly weak. Treatment Liquids Trialed Thin (IDDSI 0) Solids Trialed Purred (IDDSI 4),Minced & Moist (IDDSI 5) Administration Type Tea Spoon,Dependent Feeding Oral Strategies Upright at 90 degrees, Controlled Bite/Sip Size Pharyngeal Strategies Double Swallow,Effortful Swallow,Small Bites and Sips Treatment Activities Assisted in repositioning pt for safety with PO intake. Conducted PO trials with ice chips, water, and chocolate pudding. Engaged in lengthy discussion with the pt to provide further education regarding the results of his MBSS and implications for safety versus quality of life. Consulted with nursing and MD regarding pt progress and new recommendations. The IDDSI Framework Protocol: IDDSI.1 Assessment Patient Response to Treatment Excellent Assessment of Improvement The pt appears to have an overall improvement in status as of waking up this morning. However, he still presents as profoundly weak. STAFF NURSE ICU RESOURCE TEAM collaborated with nursing to ensure the pt had had oral care prior to PO trials to reduce the risk of aspiration- related injury. Trials ice chips resulted in delayed wet cough. Based on MBSS results, penetration and/ or aspiration of melted ice chip is suspected. Theoretically, given recent oral care along with neutral ph and small volume of water, risk of injury from aspirating this material is decreased. However, aspiration is likely still present. Trials thin liquid via teaspoon were presented with cue to hold this in the front of your mouth and when you' re ready to swallow, swallow HARD and squeeze your throat ( effortful swallow). This resulted in immediate cough across two trials. Aspiration continues to be suspected based on clinical signs and symptoms along with results of recent instrumental. Trials pudding resulted in delayed cough on 1 of 4 trials . Cough response appeared to be reduced with cues to swallow hard and squeeze your throat and with a cue for an additional secondary swallow immediately after the first. However, it should be noted that it is impossible to rule out that the pt is silently aspirating on pudding without further instrumental assessment (pudding was omitted during yesterday's assessment). STAFF NURSE ICU RESOURCE TEAM spent 20-25 minutes explaining to the patient that he is at risk of aspirating anything that he takes in by mouth, which means the material could enter his lungs and further worsen his health status. STAFF NURSE ICU RESOURCE TEAM stated explicitly that the safest option for the pt would be NPO status. The pt stated that he understood this risk, but his answers to STAFF NURSE ICU RESOURCE TEAM probes to determine pt's preferred plan of care were vague and indicated the pt did not fully understand the possible repercussions of each plan presented. Though the pt is oriented to place and purpose, it is difficult to determine whether he is decisional and able to make choices about his plan of care at this time. He did clearly state that he wanted to continue eating pudding consistency foods, and try to slowly beef it up. However, he was unable to state a clear decision regarding liquid intake. When discussing how he wants to proceed with liquid intake, he states, I want to keep trying more. STAFF NURSE ICU RESOURCE TEAM asked, you understand that that means they will probably be going down the wrong tube and can make your health worse? and patient responded, It will be tricky. Given vague answers regarding liquid intake, STAFF NURSE ICU RESOURCE TEAM recommends continuing with ice chips only (combined with frequent and thorough oral care), pending further bedside trials indicating a change in swallow status. If pt appears to have an improvement in swallow function status, recommend a repeat MBSS to verify safety. STAFF NURSE ICU RESOURCE TEAM consulted with MD (Nick Milan) regarding this plan of care, and MD is in agreement to continue with ice chips and pudding/puree solids. Pt status will continue to be monitored to progress diet a) as tolerated and b) with a repeat MBSS indicating safety with new diet. Summary of recommendations: 1. Frequent and thorough oral care. 2. Ice chips only for liquid intake. 3. Pudding/puree solids with cues for effortful swallow and double swallow. 4. Continue discussion about plan of care as pt status changes. Recommendations Recommendations Downgrade Diet Order Diet Order Pureed (IDDSI 4) Medication Recommendations Crushed in Carrier Comments Recc ice chips only, strict oral care Additional Dietary Needs Controlled Sips,No Straws, Encourage to Self-Feed Aspiration Precautions Recommended Precautions Effortful Swallow,Double Swallow Treatment Plan Placement Recommendation after Discharge Nursing Home Facility,Development Technologist Care Facility,Palliative Care Appropriate for Continued Therapy Yes Therapy Recommendations 1. Pt education for safe swallowing and swallow exercises will be provided in verbal and written format for pt. 2. Pt will complete MBSS for objective evaluation of swallow function (GOAL MET). 3. Pt will tolerate trials of thin liquids and minced/moist solids without overt s/sx aspiration in order to progress to less restrictive diet (NEW GOAL 12/25/23). Dysphagia Goals Pt will safely tolerate the least restrictive diet to meet hydration and nutrition needs .
--- NOTE | 2023-12-25 14:42 | PT.IPTN ---
Current Diagnoses Sepsis, unspecified organism (12/14/23) Unspecified severe protein-calorie malnutrition (12/14/23) Hypo-osmolality and hyponatremia (12/14/23) Delirium due to known physiological condition (12/14/23) Other stimulant abuse, in remission (12/14/23) Adenoviral pneumonia (12/14/23) Respiratory syncytial virus pneumonia (12/14/23) Acute respiratory failure with hypoxia (12/14/23) Chronic respiratory failure with hypercapnia (12/14/23) Physical Therapy Treatment Note M2 PT-IP Current Condition Start: 12/21/23 13:07 Freq: NEEDED Status: Active Protocol: Document 12/21/23 11:45 AB (Rec: 12/21/23 13:24 AB [id number]) Physical Therapy Current Condition Current Condition Evaluation Date 12/21/23 Treatment Diagnosis respiratory failure; septic shock; difficulty in walking Onset Date 12/14/23 M3 PT-IP Subjective Start: 12/21/23 13:07 Freq: NEEDED Status: Active Protocol: Document 12/25/23 14:40 AB (Rec: 12/25/23 14:41 AB [id number]) Subjective Physical Therapy Visit Type Type Administrative Note Notes Per hospitalist during rounds: pt is declining medically and at this time is DNR/DNI but hospitalist will discussed comfort measures with pt and family. Hospitalist agreed to d/c PT at this time. M7 PT-IP Assessment and Plan Start: 12/21/23 13:07 Freq: NEEDED Status: Active Protocol: Document 12/25/23 14:40 AB (Rec: 12/25/23 14:41 AB [id number]) PT Summary Assessment and Plan Frequency of Treatment Frequency Of Treatment Discharge
--- NOTE | 2023-12-25 15:45 | DIET.CONS ---
Dietary Consultation Note Admission Date: 12/14/2023 14:22 Assessment: Diet has been downgraded for pt due to continued weakness and aspiration risk. Kitchen to fortify pureed diet with additional protein to support wound healing and muscle mass in this malnourished individual. Dinner will include chocolate ensure made into pudding, pureed meat, pureed veg and pureed mashed potatoes with added protein. Total protein for dinner meal is 45g meeting 46% protein needs. Pt unlikely to consume 100% trays so each tray will aim to provide 50% protein needs for day. Pt prefers to eat rather than be fed using artificial nutrition. Will continue to monitor daily for tolerance and PO intake. Ht: 172.72 cm Wt: 49.7 kg BMI: 16.2 Last BM: 12/24/23 (12/24/23 21:30) MNA: Inder Score: 12 Diet: 12/23/23 Dinner Dysphagia Diet Diet Modifications: ICE CHIPS ONLY for liquids. Puree/pudding solids. Food Texture: Level 4 - Pureed Liquid Consistency: Level 0 - Thin 12/25/23 Dinner Dysphagia Diet Diet Modifications: Food Texture: Level 4 Puree Liquid Consistency: No Nutrition Percent Meal Consumed 25% 12/25/23 13:30 Labs: RBC 3.74 X10^6/uL (4.5-5.9) L 12/25/23 06:00 Hgb 9.9 g/dL (13.5-17.5) L 12/25/23 06:00 Hct 31.2 % (41-53) L 12/25/23 06:00 Creatinine 0.34 mg/dL (0.66-1.25) L 12/25/23 06:00 Lactate 0.9 mmol/L (0.7-2.1) 12/14/23 12:02 NT-Pro-B Natriuret Pep 8410 pg/mL (<125) H 12/14/23 10:03 EER: 98g PRO (2g/kg per malnutrition) Monitoring/Evaluations: Electronically Signed by: Pati Parikh 12/25/23 15:45 Clinical Dietitian [address] [address]
--- NOTE | 2023-12-25 15:52 | P.CONS_ITS ---
History of Present Illness Consult details Date Patient Seen: 12/25/23 Time Patient Seen: 12:30 Chief complaint: unresponsive Narrative: The patient is a 63-year-old male with open void dependence, alcohol use, cigarette use, and hypertension who was admitted December 14, 2023 with acute hypoxic respiratory failure. He has had a prolonged stay in the intensive care unit on a mechanical ventilator. The patient was recently extubated. During his hospital stay he was noted to have a pressure injury in the sacral region and a wound consultation was requested. He has been receiving dressing changes with border foam. The patient reports that the area is slightly tender however he has not noted any drainage. Labs were reviewed and he does have significant leukocytosis. The patient denies ever having had any similar problems in the past. Meds Home Medications and Allergies Home Medications Medication Instructions Recorded Confirmed Type albuterol 90 mcg/actuation aerosol 90 mcg inhalation PRN PRN 12/14/23 12/14/23 History inhaler Shortness Of Breath Allergies Allergy/AdvReac Type Severity Reaction Status Date / Time No Known Drug Allergies Allergy Verified 12/14/23 10:12 Review of Systems Constitutional Comments: Generalized weakness Respiratory Comments: Shortness of breath Exam Vital Signs (past 8 hours): - 12/25/23 07:55 12/25/23 08:00 12/25/23 08:00 Pulse Rate 109 H 109 H Respiratory Rate 36 H 42 H Blood Pressure Pulse Oximetry 88 L 87 L 87 L Oxygen Delivery Method Oxygen Flow Rate 5 12/25/23 08:05 12/25/23 08:35 12/25/23 08:40 Pulse Rate 110 H 105 H 99 H Respiratory Rate 39 H 42 H 46 H Blood Pressure 103/63 Pulse Oximetry 90 L 94 94 Oxygen Delivery Method Oxygen Flow Rate 4 12/25/23 08:45 12/25/23 08:50 12/25/23 08:55 Pulse Rate 124 H 114 H 110 H Respiratory Rate 42 H 23 24 Blood Pressure Pulse Oximetry 86 L Oxygen Delivery Method Oxygen Flow Rate 12/25/23 09:00 12/25/23 09:05 12/25/23 09:10 Pulse Rate 106 H 103 H 104 H Respiratory Rate 21 16 8 L Blood Pressure Pulse Oximetry 95 96 97 Oxygen Delivery Method Oxygen Flow Rate 12/25/23 09:15 12/25/23 09:20 12/25/23 09:25 Pulse Rate 103 H 107 H 109 H Respiratory Rate 18 23 32 H Blood Pressure Pulse Oximetry 96 96 92 Oxygen Delivery Method Oxygen Flow Rate 12/25/23 09:30 12/25/23 09:35 12/25/23 09:40 Pulse Rate 114 H 104 H 106 H Respiratory Rate 49 H 33 H 36 H Blood Pressure Pulse Oximetry 84 L 91 90 L Oxygen Delivery Method Oxygen Flow Rate 12/25/23 09:45 12/25/23 09:50 12/25/23 09:50 Pulse Rate 106 H 106 H 104 H Respiratory Rate 31 H 22 34 H Blood Pressure Pulse Oximetry 89 L 89 L 88 L Oxygen Delivery Method Oximask Oxygen Flow Rate 12/25/23 09:55 12/25/23 10:00 12/25/23 10:05 Pulse Rate 103 H 104 H 104 H Respiratory Rate 29 H 35 H 26 H Blood Pressure Pulse Oximetry 88 L 88 L 90 L Oxygen Delivery Method Oxygen Flow Rate 12/25/23 10:10 12/25/23 10:15 12/25/23 10:20 Pulse Rate 105 H 105 H 109 H Respiratory Rate 20 18 39 H Blood Pressure Pulse Oximetry 90 L 89 L 85 L Oxygen Delivery Method Oxygen Flow Rate 12/25/23 10:25 12/25/23 10:30 12/25/23 10:35 Pulse Rate 113 H 110 H 108 H Respiratory Rate 58 H 38 H 25 H Blood Pressure Pulse Oximetry 77 L 90 L 77 L Oxygen Delivery Method Oxygen Flow Rate 12/25/23 10:40 12/25/23 10:45 12/25/23 10:50 Pulse Rate 102 H 102 H 102 H Respiratory Rate 19 29 H 16 Blood Pressure Pulse Oximetry 88 L 94 94 Oxygen Delivery Method Oxygen Flow Rate 12/25/23 10:55 12/25/23 11:00 12/25/23 11:05 Pulse Rate 103 H 105 H 111 H Respiratory Rate 24 46 H 25 H Blood Pressure Pulse Oximetry 92 93 83 L Oxygen Delivery Method Oxygen Flow Rate 12/25/23 11:10 12/25/23 11:15 12/25/23 11:15 Pulse Rate 111 H 106 H Respiratory Rate 23 21 Blood Pressure Pulse Oximetry 97 89 L 93 Oxygen Delivery Method Oxygen Flow Rate 4 12/25/23 11:20 12/25/23 11:25 12/25/23 11:30 Pulse Rate 107 H 106 H 106 H Respiratory Rate 17 33 H 31 H Blood Pressure Pulse Oximetry 97 99 99 Oxygen Delivery Method Oxygen Flow Rate 12/25/23 11:35 12/25/23 11:40 12/25/23 11:45 Pulse Rate 107 H 107 H 109 H Respiratory Rate 27 H 27 H 30 H Blood Pressure Pulse Oximetry 100 100 100 Oxygen Delivery Method Oxygen Flow Rate 12/25/23 11:50 12/25/23 11:55 12/25/23 12:00 Pulse Rate 107 H 109 H 111 H Respiratory Rate 34 H 25 H 28 H Blood Pressure Pulse Oximetry 100 100 100 Oxygen Delivery Method Oxygen Flow Rate 12/25/23 12:05 12/25/23 12:10 12/25/23 12:15 Pulse Rate 108 H 107 H 107 H Respiratory Rate 37 H 53 H 42 H Blood Pressure Pulse Oximetry 100 100 100 Oxygen Delivery Method Oxygen Flow Rate 12/25/23 12:20 12/25/23 12:20 12/25/23 12:25 Pulse Rate 109 H 107 H Respiratory Rate 33 H 42 H Blood Pressure Pulse Oximetry 100 100 100 Oxygen Delivery Method Oxygen Flow Rate 3 12/25/23 12:30 12/25/23 12:31 12/25/23 12:31 Pulse Rate 107 H 109 H Respiratory Rate 37 H 24 Blood Pressure 103/63 Pulse Oximetry 100 100 Oxygen Delivery Method Oxygen Flow Rate Fraction of Inspired Oxygen 24 SaO2/FiO2 Ratio 404 Oxygen Delivery Method Oximask Oxygen Flow Rate 3 Const Other: Generally the patient is a cachectic male who is awake and alert and is in no apparent distress. He is tachycardic and has slightly labored respirations. Skin Other: Stage III pressure ulcer in sacral region with some necrotic skin, measures approximately 2 x 3 cm, no erythema or purulent drainage noted Objective Labs 12/25/23 06:00 12/25/23 06:00 Labs: Laboratory Results - last 24 hr 12/24/23 12/25/23 04:00 06:00 WBC 19.8 H RBC 3.74 L Hgb 9.9 L Hct 31.2 L MCV 83.3 MCH 26.6 MCHC 31.9 RDW 16.0 H Plt Count 766 H Neut % (Auto) Not Reportable Lymph % (Auto) Not Reportable [place] % (Auto) Not Reportable Eos % (Auto) Not Reportable Baso % (Auto) Not Reportable Lymph # (Auto) Not Reportable [place] # (Auto) Not Reportable Baso # (Auto) Not Reportable Total Counted 100 Seg Neutrophils % 88.0 H Band Neutrophils % 4.0 Lymphocytes % (Manual) 5.0 L Monocytes % (Manual) 2.0 Basophils % (Manual) 1.0 Neutrophils # (Manual) [address]242 H Platelet Estimate Increased on smear RBC Morphology See below Anisocytosis 1+ H Sodium 134 L Potassium 4.5 D Chloride 92 L Carbon Dioxide 41 H* BUN 12 Creatinine 0.34 L Estimated GFR > 60 BUN/Creatinine Ratio 35.3 H Glucose 78 L Calcium 8.8 Magnesium 1.9 1.9 PFSH Medical History Tracheostomy in place Sepsis Muscle pain Foot pain Ankle pain Chronic back pain Acid reflux Tobacco use disorder, moderate, in early remission Hypertension Ankylosing spondylitis Alcohol abuse Ankylosing spondylitis (1985) GERD (gastroesophageal reflux disease) Hypertension Fracture cervical vertebra-closed Surgical History Status post incision and drainage History of open reduction and internal fixation (ORIF) procedure (2005) Status post colonoscopy (2012) History of tonsillectomy Family History Father No problems noted. Mother Cancer Other Alcoholism Colorectal cancer Social History household members: family Tobacco & Substance Use Smoking Status: Current every day smoker Assessment & Plan Assessment and plan (1) Pressure ulcer of sacral region, stage 3: Status: Acute (2) Protein calorie malnutrition: Qualifiers: Protein-calorie malnutrition severity: severe Qualified Code(s): E43 - Unspecified severe protein-calorie malnutrition Status: Acute (3) Acute hypoxic on chronic hypercapnic respiratory failure: Problem details: Extubated and weaned to NC Status: Acute Assessment & Plan narrative: Cachectic malnourished male with stage III pressure ulcer of sacral region with no sign of active infection. The patient is at high risk for worsening of the pressure ulcer. Recommend dressing changes with border foam and zinc barrier cream, pressure offloading with frequent turning and use of air mattress, protein supplementation, follow up at wound center after discharge. Time Spent With Patient Time with patient: 50 to 69 minutes with 50% spent counseling/coordinating care
--- NOTE | 2023-12-25 18:48 | PC.NURSE ---
Pt has been awake and alert this afternoon, using call light, feeding self; he was just medicated w/ Dilaudid 0.5mg iv for c/o generalized pain
[2023-12-25] MEDS: QUETIAPINE 25 MG TABLET PO (21:44)
[2023-12-26] VITALS (14 sets, daily range): BP systolic 90–125; BP diastolic 51–71; PULSE 94–110; RESP 13–49; TEMP 36.9–37.4; O2SAT 95–100
[2023-12-26] MEDS: HYDROMORPHONE 0.5 MG INJ IV (02:47)
[2023-12-26 06:49] LABS: Add Manual Diff / Slide Review NO; Basophils Absolute Auto 100 /uL (0-100); Basophils Percent Auto 0.7 % (0-2); Eosinophils Absolute Auto 100 /uL (0-450); Eosinophils Percent Auto 0.5 % (2-4); Hematocrit 28.4 % (41-53); Hemoglobin 9.1 g/dL (13.5-17.5); Lymphocytes Absolute Auto 1300 /uL (1100-4500); Lymphocytes Percent Auto 9.8 % (25-40); Mean Corpuscular HGB Conc 31.9 % (30-36); Mean Corpuscular Hemoglobin 26.9 PG (26-34); Mean Corpuscular Volume 84.2 fL (80-100); Monocytes Absolute Auto 1200 /uL (0-900); Monocytes Percent Auto 9.2 % (3-14); Neutrophils Absolute Auto 10200 /uL (1500-7000); Neutrophils Percent Auto 79.8 % (50-75); Platelet Count 671 X10^3/uL (150-400); Red Blood Cell Count 3.38 X10^6/uL (4.5-5.9); Red Cell Distribution Width 15.8 % (11.6-14.8); White Blood Cell Count 12.8 X10^3/uL (4.5-11.0)
--- NOTE | 2023-12-26 08:35 | P.PN_ITS ---
Subjective Subjective Interval history: Patient more awake and alert today. Having aspiration of thin liquids, but after long discussion with speech therapy patient elected to take the risk and drink liquids. Patient requesting pepsi. He wants to go home. PT/OT eval ordered. Exam Vital Signs (past 8 hours): - 12/26/23 04:00 12/26/23 04:00 12/26/23 08:32 Temperature 98.6 F Pulse Rate 106 H Respiratory Rate 22 Blood Pressure 95/51 L Pulse Oximetry 100 100 Oxygen Delivery Method Nasal Cannula Oxygen Flow Rate 3 3 Fraction of Inspired Oxygen 32 SaO2/FiO2 Ratio 309 Oxygen Delivery Method Nasal Cannula Oxygen Flow Rate 3 Narrative Exam Narrative: Comfortable on NC. Severely cachectic. Lungs rhonchorous and increased rate of breathing. CV tachycardic. Abdomen flat and soft. No leg edema. Objective Labs 12/26/23 06:31 12/25/23 06:00 Labs: Laboratory Results - last 24 hr 12/26/23 06:31 WBC 12.8 H RBC 3.38 L Hgb 9.1 L Hct 28.4 L MCV 84.2 MCH 26.9 MCHC 31.9 RDW 15.8 H Plt Count 671 H Neut % (Auto) 79.8 H Lymph % (Auto) 9.8 L [place] % (Auto) 9.2 Eos % (Auto) 0.5 L Baso % (Auto) 0.7 Neut # (Auto) 29630 H Lymph # (Auto) 1300 [place] # (Auto) 1200 H Eos # (Auto) 100 Baso # (Auto) 100 PFSH Medical History Tracheostomy in place Sepsis Muscle pain Foot pain Ankle pain Chronic back pain Acid reflux Tobacco use disorder, moderate, in early remission Hypertension Ankylosing spondylitis Alcohol abuse Ankylosing spondylitis (1985) GERD (gastroesophageal reflux disease) Hypertension Fracture cervical vertebra-closed Surgical History Status post incision and drainage History of open reduction and internal fixation (ORIF) procedure (2005) Status post colonoscopy (2012) History of tonsillectomy Family History Father No problems noted. Mother Cancer Other Alcoholism Colorectal cancer Social History household members: family Smoking Status: Current every day smoker Assessment & Plan Assessment & Plan narrative: 1. Acute hypoxemic respiratory failure, POA and improving. -secondary to possible aspiration pneumonia, sepsis. May have component of chronic respiratory failure with presenting adeno and rhinoviral infections as well. -intubated on admit, tube exchanged 12/15. Extubated 12/20. -now on 3L NC 2. Septic shock, POA and resolved. -cont pressor support if needed, maintain MAP > 65 -PCR + adenovirus, + entero/rhino, +nasal MRSA -Abx changed to ceftriaxone 12/21 3. Acute metabolic encephalopathy, POA and resolved. 4. Acute hyponatremia, POA and improved. -SIADH and mild at 134 5. Severe protein calorie malnutrition and dysphagia, POA and active. -hogshead mat inspector consulted and patient prefers to eat over artificial nutrition -patient decisional and elected to take aspiration risk and drink liquids, despite MBS with evidence of aspiration 6. Hypomagnesemia, hypokalemia, present on admission and improving. -supplementing. 7. DM 2, POA and active. -cont SC insulin. - Goal BS < 180 Dispo: Pending improvement wiht PT/OT eval. Quality VTE Deep Vein Thrombosis/Pulmonary Embolism Present on Admission: No
[2023-12-26] MEDS: cefTRIAXone 1,000 MG in SODIUM CHLORIDE 0.9% 100 ML 200 MG IV (09:07)
[2023-12-26] MEDS: SODIUM CHLORIDE 0.9% 1,000 ML 75 ML IV (09:07)
[2023-12-26] MEDS: SODIUM CHLORIDE 0.9% FLUSH 10 ML IV ×2 (09:14→21:12)
[2023-12-26] MEDS: OXYCODONE IR 10 MG TABLET PO ×3 (10:09→21:45)
--- NOTE | 2023-12-26 10:47 | ST.IPDYTX ---
Visit Care Team Role Provider Type Yuliya Morin MD Primary Care Provider Non-Staff Specialty: Family Practice Address: [address] [place], [address] Email: Jonathan Hines MD Other Providers Physician Specialty: Medical Address: Phone: Fax: Email: Greta Boyer MD Other Providers Physician Specialty: Medical Address: Phone: Fax: Email: Dre Saucedo MD Other Providers Physician Specialty: Medical Address: [address] [place], [address] Phone: Fax: Email: Eli Bojorquez PA-C Other Providers Advanced Graphotype Operator Specialty: Medical Wound Care Address: [address] [place] [address], [address] Email: [email or web address] Jean Kim MD Other Providers Physician Specialty: Internal Medicine Address: Phone: Fax: Email: Rico Ribeiro MD Other Providers Physician Specialty: Medical Address: Phone: Fax: Email: Samira Camargo MD Other Providers Physician Specialty: Anesthesiology Internal Medicine Address: [address] [place] [address], [phone] Fax: Email: [email or web address] Other Providers Non-Staff Specialty: Podiatry Address: [address] [place] [address], [address] Email: Mati Fu MD Other Providers Physician Specialty: Internal Medicine Address: [address] [place], [address] Phone: Fax: Email: [email or web address] Anaya MD Other Providers Physician Specialty: Internal Medicine Address: Phone: Fax: Email: John Pichardo MD Other Providers Physician Specialty: Wound Care Address: [address], [place], [address] Email: [email or web address] [email or web address] [email or web address] MD Other Providers Physician Specialty: Medical Address: Phone: Fax: Email: Chad Whitmore MD Other Providers Physician Specialty: Internal Medicine Address: [address] [place] [address], [address] Phone: Fax: Email: Rodrigo Tate MD Other Providers Physician Specialty: Medical Address: [address], [address] Phone: Fax: Email: Shereen George MD Other Providers Physician Specialty: Medical Address: Phone: Fax: Email: Lisa Alatorre Other Providers Physician Specialty: Medical Address: Phone: Fax: Email: Shawn Devi MD Other Providers Non-Staff Specialty: Wound Care Address: [address] [place] [address], [address] Email: [email or web address] Elsie Nelson MD Other Providers Physician Specialty: Internal Medicine Address: Phone: Fax: Email: Freya Ambrocio MD Emergency Provider Physician Referring Provider Specialty: Emergency Medicine Address: [address] [place] [address], [address] Email: [email or web address] Admit Provider Physician Attending Provider Specialty: Internal Medicine Address: [address] [place] [address], [address] Email: [email or web address] SUPERVISOR Dysphagia Treatment PST SUPERVISOR Dysphagia Treatment Start: 12/23/23 12:07 Freq: Status: Active Protocol: Document 12/26/23 10:28 CG (Rec: 12/26/23 10:47 CG [id number]) Dysphagia Treatment Session Time Visit Start Time 09:30 Visit Stop Time 10:30 Total Visit Minutes 60 Visit Information Visit Number 5 Setting Assessment Location Acute Care Patient Information Subjective Observations Pt was seated partially reclined in bed upon ST arrival to room. He was awake, alert, and oriented this morning. Verbal response time was much more prompt and speech much more clearly intelligible than during previous sessions. He was able to clearly communicate pain levels, preferences, and personal history. Pt was agreeable to completing oral care and PO trials with PST SUPERVISOR. Treatment Liquids Trialed Ice chips,Thin (IDDSI 0) Solids Trialed Purred (IDDSI 4) Administration Type Tea Spoon,Dependent Feeding Oral Strategies Upright at 90 degrees, Controlled Bite/Sip Size Pharyngeal Strategies Double Swallow,Effortful Swallow,Small Bites and Sips Treatment Activities Assisted in repositioning pt for safety with PO intake and provided education re: positioning and swallow safety . Conducted PO trials with ice chips, water, and vanilla pudding. Engaged in another lengthy discussion with the pt to provide further education regarding swallow status, risks for aspiration, and patient preferences. Consulted with nursing and MD regarding pt progress and recommendations. The IDDSI Framework Protocol: IDDSI.1 Assessment Patient Response to Treatment Excellent Assessment of Improvement The pt appears to have a continued improvement in overall status compared to yesterday. He is alert, oriented, and able to comprehend and engage in conversation. However, he still presents as profoundly weak. PST SUPERVISOR guided the pt through oral care, explaining the role of oral health in dysphagia and decreasing the risk of aspiration-related injury. As was the case yesterday, trials ice chips resulted in delayed wet cough across 2 trials. Based on MBSS results , penetration and/or aspiration of melted ice chip is still suspected. Theoretically, given recent oral care along with neutral ph and small volume of water, risk of injury from aspirating this material is decreased. However, aspiration is likely still present. Trials thin liquid via teaspoon were presented with cue to hold this in the front of your mouth and when you' re ready to swallow, swallow HARD and squeeze your throat ( effortful swallow). This resulted in immediate cough after the swallow. Aspiration continues to be suspected based on clinical signs and symptoms along with results of recent instrumental. Trials pudding resulted in delayed cough on 2 of 5 trials . However, it should be noted that it is impossible to rule out that the pt is silently aspirating on pudding without further instrumental assessment (pudding was omitted during Saturday's assessment). Pt requires verbal cues to squeeze hard and swallow twice. Pt continues to request that nursing bring him soda to drink. Given that the pt is more clearly decisional today, PST SUPERVISOR engaged in conversation with the patient regarding his risk for aspiration and his right to informed consent. Pt expressed desire to drink soda despite PST SUPERVISOR education regarding risk of aspiration and aspiration-related injury. PST SUPERVISOR asked the pt the following series of yes/no questions: PST SUPERVISOR: Do you understand that when you swallow, liquids are going down the wrong tube and possibly into your lungs? Patient: Yes. PST SUPERVISOR: Do you understand that that could worsen your health due to the risk of developing pneumonia? Patient: Yes. PST SUPERVISOR: Do you still want to drink liquids even though you understand this risk? Patient: Yes. PST SUPERVISOR: Do you understand that foods are likely also going down the wrong tube and could also worsen your health by causing pneumonia? Patient: Yes. PST SUPERVISOR: Do you still want to eat some foods? Patient: Yes. PST SUPERVISOR: Do you want to have ANY safety precautions in place related to swallowing foods and liquids? Patient: Not right now. PST SUPERVISOR stated explicitly that the safest option for the pt would be NPO status, and this remains this PST SUPERVISOR's official medical recommendation. However, pt clearly indicated a desire to consume PO foods and liquids despite aspiration risk. PST SUPERVISOR consulted with hospitalist (Dr. Porras) regarding the above discussion , and hospitalist agrees patient is decisional and has clearly stated his wishes. Therefore, pt will be given requested foods/liquids as informed consent has been obtained. Pt status will continue to be monitored by PST SUPERVISOR while he remains inpatient at this facility. Diet tolerance will continue to be assessed and ongoing patient education will be provided in order to obtain ongoing informed consent for diet choices. Summary of recommendations: 1. Frequent and thorough oral care. 2. Pudding/puree solids for pt comfort. 3. Continue discussion about plan of care as pt status changes. 4. Pt may request thin liquids despite the fact that the official PST SUPERVISOR recommendation remains NPO. Recommendations Recommendations Continue Current Diet Liquids Order Thin (IDDSI 0) Diet Order Pureed (IDDSI 4) Medication Recommendations Crushed in Carrier Additional Dietary Needs Controlled Sips,No Straws, Encourage to Self-Feed Aspiration Precautions Recommended Precautions Effortful Swallow,Double Swallow Treatment Plan Placement Recommendation after Discharge Retirement Facility,[facility] Facility,Palliative Care Appropriate for Continued Therapy Yes Therapy Recommendations 1. Pt education for safe swallowing and swallow exercises will be provided in verbal and written format for pt. 2. Pt will complete MBSS for objective evaluation of swallow function (GOAL MET). 3. Pt will tolerate trials of thin liquids and minced/moist solids without overt s/sx aspiration in order to progress to less restrictive diet (NEW GOAL 12/25/23). Dysphagia Goals Pt will safely tolerate the least restrictive diet to meet hydration and nutrition needs .
--- NOTE | 2023-12-26 13:05 | OT.IP.EVAL ---
Current Diagnoses Sepsis, unspecified organism (12/14/23) Unspecified severe protein-calorie malnutrition (12/14/23) Hypo-osmolality and hyponatremia (12/14/23) Delirium due to known physiological condition (12/14/23) Other stimulant abuse, in remission (12/14/23) Adenoviral pneumonia (12/14/23) Respiratory syncytial virus pneumonia (12/14/23) Acute respiratory failure with hypoxia (12/14/23) Chronic respiratory failure with hypercapnia (12/14/23) Pressure ulcer of sacral region, stage 3 (12/14/23) Past Medical History (Last Reviewed 12/25/23 @ 15:55 by John Pichardo MD) Acid reflux Alcohol abuse Ankle pain Ankylosing spondylitis (1985) Ankylosing spondylitis Chronic back pain Foot pain Fracture cervical vertebra-closed GERD (gastroesophageal reflux disease) Hypertension Hypertension Muscle pain Sepsis Tobacco use disorder, moderate, in early remission Tracheostomy in place Surgical History (Last Reviewed 12/25/23 @ 15:55 by John Pichardo MD) History of open reduction and internal fixation (ORIF) procedure (2005) History of tonsillectomy Status post colonoscopy (2012) Status post incision and drainage Occupational Therapy Inpatient Evaluation/Re-Eval M1 PT/OT-IP Prior Functional Status Start: 12/26/23 13:05 Freq: NEEDED Status: Active Protocol: Document 12/26/23 13:06 [facility] (Rec: 12/26/23 13:32 [facility] [id number]) Medical Review Prior Functional Status Medical History Reviewed Yes Communication able to make needs known Mobility and Gait pt stated that he was independent with all mobilities and ambualtion without AD but occasionally uses a FWW depending on how steady he feels Activities of Daily Living and IADL's Pt states able to do all ADL needs on his own and that his brother in law and niece assist with IADL needs. Prior Functional Level (Other details) Pt is a questionable historian of prior level of care and function. Social History Household Members family Living Arrangements House Number of Floors (Floors) One Floor Number of Stairs To Enter/Railing? 1 step to enter Home Environment Standard Height Toilet,Walk in Shower Home Equipment Front Wheel Walker,Shower Seat with Backrest,Hand Held Shower,Grab Bars Near Toilet, Grab Bars In Shower Additional Social History Comment pt has his [id number] and niece at home to assist him M2 OT-IP Current Condition Start: 12/26/23 13:05 Freq: Status: Active Protocol: Document 12/26/23 13:06 [facility] (Rec: 12/26/23 13:32 [facility] [id number]) Occupational Therapy Current Condition Current Condition Evaluation Date 12/26/23 Treatment Diagnosis Respiratory Failure, decreased mobility Diagnosis Onset Date 12/14/23 M3 OT- IP Subjective and Pain Start: 12/26/23 13:05 Freq: Status: Active Protocol: Document 12/26/23 13:06 [facility] (Rec: 12/26/23 13:32 [facility] [id number]) OT- Subjective Occupational Therapy Visit Type Type Initial Evaluation Visit Start Time 12:30 Visit Stop Time 13:05 Occupational Therapy Visit Comments Patient Comments Pt agreed to get up after lots of encouragement. Patient/Caregiver Goals TO go home. OT Pain Assessment Pain When Pain Assessed At Rest Location generalized Pain Behaviors Facial Grimacing M4 OT- IP ADL's Start: 12/26/23 13:05 Freq: Status: Active Protocol: Document 12/26/23 13:06 [facility] (Rec: 12/26/23 13:32 [facility] [id number]) OT [id number] Comments OT Self-Feeding Comments Per BARREL RIB MATTING MACHINE OPERATOR pt recommended to be NPO, however pt adamantly wanting to eat. OT ADL-Grooming Comments OT Grooming Comments Pt able to wash his face after set-up. OT ADL-Oral Care Comments Oral Care Comments Not performed. OT ADL-Dressing General Eval Lower Body Dressing Ability Maximum Assistance Areas Needing Assistance Socks OT ADL-Toileting General Evaluation Toileting Ability Total Assistance Comments OT Toileting Comments Pt having external catheter in place. OT ADL-Bathing Comments OT Bathing Comments Sponge bath more appropriate or use of rolling shower chair . M5 OT- IP IADL's Start: 12/26/23 13:05 Freq: Status: Active Protocol: Document 12/26/23 13:06 [facility] (Rec: 12/26/23 13:32 [facility] [id number]) OT-Instrumental Activities of Daily Living Deficits IADL Deficits Identified Deficits Home Safety Awareness Awareness of Need for Assistance at Home Decreased Awareness Ability to Problem Solve Emergency Unable to Problem Solve Situations Home Safety Comments Pt has poor awareness to his health issues and will benefit from 17/06 assist at home at this time. Medication Management Medication Management Comments Pt will benefit from assist. Money Management Money Management Comments Pt will benefit from assist. Meal Preparation Meal Preparation Comments Pt recommended NPO , be is deciding to eat /drink regardless. Slasher Machine Operator Slasher Machine Operator Caregiver Provides Assist M6 OT- IP Functional Cognition Start: 12/26/23 13:05 Freq: Status: Active Protocol: Document 12/26/23 13:06 [facility] (Rec: 12/26/23 13:32 [facility] [id number]) Cognitive Factors Limiting Selfcare Function Cognitive Ability Level of Alertness Alert Patient Orientation Name,Birthday,Place Attention Span Ability Capable of Focused Attention, Capable of Sustained Attention Ability to Follow Commands Able to Follow One Step Commands with Increased Time, Able to Follow One Step Commands with Repetition Safety Awareness Underestimates Need for Assistance Cognitive Comments Cognitive Assessment Comments Pt have poor awareness of his needs at this time. Pt will benefit from 17/06 assist for all needs at this time. OT- Vision and Hearing OT- Hearing Assessment OT- Hearing Assessment WFL OT- Vision Assessment Visual Acuity Glasses For Reading M7 OT- IP Mobility and Balance Start: 12/26/23 13:05 Freq: Status: Active Protocol: Document 12/26/23 13:06 [facility] (Rec: 12/26/23 13:32 [facility] [id number]) OT- Bed Mobility Assessment Supine to Sit Supine to Sit Assist Contact Guard Assistance,Head of Bed Elevated,Bedrails OT-Transfer Assessment Sit to and From Stand Sit to and from Stand Moderate Assistance,1 Person Assistance,2 Person Assistance Transfers Transfer Ability Moderate Assistance,1 Person Assistance,2 Person Assistance Technique Transfer Destination Bed,Chair Transfer Technique Stand Step Pivot Devices Transfer Assistive Devices Gait Belt,Front Wheeled Walker Comments Mobility Comments CGA with HOB up and use of bed rail to get to the edge of the bed. MODA 1-2 to stand and BLE very shaky and needing assist for balance and to help manage all tubing and lines. Suggested pt have a waffle cushion while in the recliner to nursing staff due to his sacral ulcer. OT- Balance Assessment Sitting Balance and Reactions Static Sitting Balance Ability Fair Dynamic Sitting Balance Ability Fair Standing Balance and Reactions Static Standing Balance Ability Fair Dynamic Standing Balance Ability Poor M8 OT- IP Objective Assessments Start: 12/26/23 13:05 Freq: Status: Active Protocol: Document 12/26/23 13:06 [facility] (Rec: 12/26/23 13:32 [facility] [id number]) OT Gross Range of Motion Upper Extremity Range of Motion Assessment Bilaterally Impaired OT Strength Upper Extremity Strength Assessment Bilaterally Impaired Comments Strength Comments BUE 2-/3 to 3+/5. OT- Coordination Assessment Upper Extremity Finger to Nose Test Within Functional Limits M9 OT- IP Assessment and Plan Start: 12/26/23 13:05 Freq: Status: Active Protocol: Document 12/26/23 13:06 [facility] (Rec: 12/26/23 13:32 [facility] [id number]) OT Summary Assessment and Plan Potential Rehabilitation Potential Poor Analytic Complexity at Evaluation Moderate Summary OT Impairments Strength,Balance,Functional Cognition,Functional Mobility, Self-Feeding,Grooming,Dressing ,Toileting,Bathing,Toilet Transfers,Shower Transfers, Activity Tolerance Progress Towards Goals Slow Progress due to Pain,Slow Progress due to Medical Issues,Slow Progress due to Activity Tolerance,Slow Progress due to Cognition Assessment Summary Pt MOD complexity and main barriers are one step at home, on2L of O2 which decreases during functional mobility, and will need extensive assist for ADL needs at this time. Pt will benefit from 24/7 assist and home health versus possibly hospice as pt continue to aspirate on food/ drink and has be recommended to be NPO but choosing to just eat/drink as he please. To continue to see pt to help maximize his level of ADL needs and do any caregiver training as needed. If pt going home will benefit from hospital bed, wc, and BSC. Goals Grooming Goal Independent Dressing Goal Minimal Assistance Toileting Goal Minimal Assistance Bathing Goal Moderate Assistance Toilet Transfer Goal Contact Guard Assistance Shower Transfer Goal Minimal Assistance Patient/Caregiver Education Goal Caregiver Independent Assisting Patient Days to Meet Goals 20 Frequency of Treatment Frequency Of Treatment Once a Day Treatment Plan OT Treatment Plan ADL Training,Functional Cognition Training,Functional Mobility,Patient/Family Education,Discharge Planning Discharge Recommendations OT Discharge Recommendations Home with 24/7 Assist Available,Home Health Home Equipment Needs Hospital bed, BSC, WC Transportation Needs at Discharge Stretcher/Ambulance
--- NOTE | 2023-12-26 13:19 | PT.IPRE ---
Current Diagnoses Sepsis, unspecified organism (12/14/23) Unspecified severe protein-calorie malnutrition (12/14/23) Hypo-osmolality and hyponatremia (12/14/23) Delirium due to known physiological condition (12/14/23) Other stimulant abuse, in remission (12/14/23) Adenoviral pneumonia (12/14/23) Respiratory syncytial virus pneumonia (12/14/23) Acute respiratory failure with hypoxia (12/14/23) Chronic respiratory failure with hypercapnia (12/14/23) Pressure ulcer of sacral region, stage 3 (12/14/23) Surgical History (Last Reviewed 12/25/23 @ 15:55 by John Pichardo MD) History of open reduction and internal fixation (ORIF) procedure (2005) History of tonsillectomy Status post colonoscopy (2012) Status post incision and drainage Medical History (Last Reviewed 12/25/23 @ 15:55 by John Pichardo MD) Acid reflux Alcohol abuse Ankle pain Ankylosing spondylitis (1985) Ankylosing spondylitis Chronic back pain Foot pain Fracture cervical vertebra-closed GERD (gastroesophageal reflux disease) Hypertension Hypertension Muscle pain Sepsis Tobacco use disorder, moderate, in early remission Tracheostomy in place Physical Therapy Inpatient Evaluation/Re-Eval M1 PT/OT-IP Prior Functional Status Start: 12/21/23 13:07 Freq: NEEDED Status: Active Protocol: Document 12/21/23 11:45 AB (Rec: 12/21/23 13:24 AB [id number]) Medical Review Prior Functional Status Medical History Reviewed Yes Communication able to make needs known Mobility and Gait pt stated that he was independent with all mobilities and ambualtion without AD but occasionally uses a FWW depending on how steady he feels Social History Household Members family Living Arrangements House Number of Floors (Floors) One Floor Number of Stairs To Enter/Railing? 1 step to enter Home Environment Standard Height Toilet,Walk in Shower Home Equipment Front Wheel Walker,Shower Seat with Backrest,Hand Held Shower,Grab Bars Near Toilet, Grab Bars In Shower Additional Social History Comment pt has his [id number] and niece at home to assist him M2 PT-IP Current Condition Start: 12/21/23 13:07 Freq: NEEDED Status: Active Protocol: Document 12/21/23 11:45 AB (Rec: 12/21/23 13:24 AB [id number]) Physical Therapy Current Condition Current Condition Evaluation Date 12/21/23 Treatment Diagnosis respiratory failure; septic shock; difficulty in walking Onset Date 12/14/23 M3 PT-IP Subjective Start: 12/21/23 13:07 Freq: NEEDED Status: Active Protocol: Document 12/26/23 12:30 MB (Rec: 12/26/23 13:18 MB [id number]) Subjective Physical Therapy Visit Type Type Re-Evaluation Visit Start Time 12:30 Visit Stop Time 13:05 Number of HYDRO SPRAYER OPERATOR Visits 0 Physical Therapy Visit Comments Patient Comments Pt is agreeable to therapies and he states he just ate. Therapy Pain Assessment Pain When Pain Assessed At Rest Pain Present Pain Present Pain Reported FLACC Pain Scale Face No particular expression Location generalized Intensity 4 M4 PT-IP Mobility and Gait Start: 12/21/23 13:07 Freq: NEEDED Status: Active Protocol: Document 12/26/23 12:30 MB (Rec: 12/26/23 13:18 MB [id number]) PT-Bed Mobility Assessment Supine to Sit Supine to Sit Contact Guard Assistance,1 Person Assistance,Head of Bed Elevated,Bedrails Scooting Scooting to Edge of Bed Contact Guard Assistance PT-Transfer Assessment Sit to and From Stand Sit to and from Stand Moderate Assistance,2 Person Assistance,Use of Upper Extremities Equipment Transfer Assistive Device Gait Belt,Front Wheeled Walker Orthotic/Prosthetic Devices or Brace: No Transfers Transfer Destination Chair Transfer Technique Stepping Transfer Ability Level of Assist Moderate Assistance,2 Person Assistance,Use of Upper Extremities Comments Mobility Comments Pt monitor with vitals changing and multiple lines and questionable reading. Pt on 2L O2 and sats decrease to 78%. Pt is mostly one person assistance but two people nearby d/t many lines and even with assistance, left IV disattached and bleeding and nsg arrives to assist. Pt left up in chair with needs in reach and nsg aware/in agreement. Gait Assessment Gait Gait Assistance Required: Moderate Assistance,2 Person Assist Distance (Feet) 1 Able to Maintain Weight Bearing Status Yes During Gait Assistive Devices Assistive Device Gait Belt,Front Wheeled Walker Orthotic/Prosthetic Devices or Brace: No Gait Deviations General Gait Pattern Decreased Stride Length, Decreased Feet Clearance Factors Limiting Gait Function Factors Limiting Gait Function Decreased Activity Tolerance, Difficulty Following Directions,Pain,Poor Balance, Poor Safety Awareness Comments Gait Comments Pt is able to take a few steps to the chair to the right with RW and mod A: no leg buckling though pt does have functional weakness with LAQ PT-Balance Assessment Sitting Balance and Reactions Static Sitting Balance Ability Fair Dynamic Sitting Balance Ability Fair Standing Balance and Reactions Static Standing Balance Ability Fair Dynamic Standing Balance Ability Poor Device Used RW M5 PT-IP Objective Assessments Start: 12/21/23 13:07 Freq: NEEDED Status: Active Protocol: Document 12/26/23 12:30 MB (Rec: 12/26/23 13:18 MB [id number]) Orientation Orientation/Cognition Level of Alertness Alert Orientation Name,Age,Birthday Comments Decreased insight to medical condition despite provider communication that he has been educated in repeated aspiration PNA Gross Range of Motion Upper Extremity ROM Impairments Defer to OT Lower Extremity ROM Assessment Bilaterally Impaired Impairments Decreased LAQ and AP B LEs with strength no more than 2+/ 5 Strength Lower Extremity Strength Assessment Bilaterally Impaired Comments Strength Comments LE strength no more than 2+/5 but no buckling with STS with RW M6 PT-IP Treatment Start: 12/21/23 13:07 Freq: NEEDED Status: Active Protocol: Document 12/26/23 12:30 MB (Rec: 12/26/23 13:18 MB [id number]) Physical Therapy Treatment Education Education Provided Safety M7 PT-IP Assessment and Plan Start: 12/21/23 13:07 Freq: NEEDED Status: Active Protocol: Document 12/26/23 12:30 MB (Rec: 12/26/23 13:18 MB [id number]) PT Summary Assessment and Plan Potential Rehabilitation Potential Poor Status of Condition at Evaluation Unstable Summary Impairments Pain,ROM,Strength,Balance, Coordination,Cognition,Bed Mobility,Transfers,Gait, Activity Tolerance Progress Towards Goals Slow Progress due to Pain,Slow Progress due to Medical Issues,Slow Progress due to Activity Tolerance Assessment Summary Re-evaluation ordered d/t disposition is not yet clear. Pt has been made DNR and he wishes to con't eating despite recurrent aspiration PNA, cachexia and globalized weakness. Though medical providers have provided education about his condition, pt appears to have decreased insight and asks therapists about his condition and if he is going to get better. Will follow patient again for PT to assist with disposition planning and family training. Pt adamantly states he is not going to a [place] [facility] facility and wants to go home with his family. Recommend 24 hour assistance and HH vs hospice for d/c. Goals Bed Mobility Goal Standby Assistance Transfer Goal Contact Guard Assistance,Front Wheeled Walker Gait Goal Contact Guard Assistance,Front Wheel Walker Gait Distance 25 Other Goals Do not feel pt will advance to stair training. Days to Meet Goals 10 Frequency of Treatment Frequency Of Treatment Once a Day Treatment Plan Physical Therapy Treatment Plan Bed Mobility Training,Transfer Training,Gait Training, Therapeutic Exercise,Balance Retraining,Discharge Planning Precautions Other Precautions Droplet precautions, falls Recommendations To Nursing Amount of Assist Needed 2 Person Assist Discharge Recommendations PT Discharge Recommendations Home with 24/7 Assist Available,Home Health Other Discharge Recommendations HH vs hospice at home Transportation Needs at Discharge Stretcher/Ambulance
--- NOTE | 2023-12-26 18:17 | PC.NURSE ---
pt has started doing more for himself, with encouragement; PT was reordered and pt up to chair for 1.5 hours; returned to bed with 1 person, gait belt and FWW; pt encouraged to help reposition self in bed and to feed himself; Speech reevaluated pt's swallow and despite evidence of aspiration risk, pt told speech therapist and Dr Porras that was a risk he was willing to take; pt remains on pureed diet, but is now being allowed liquids; pt was medicated twice w/ percalone p.o. crushed in pudding; he is now on o2/2l/nc
[2023-12-26] MEDS: HEPARIN 5,000 UNIT/ML VIAL 5000 UNIT SUBCUT (21:27)
[2023-12-26] MEDS: CYCLOBENZAPRINE 10 MG TABLET 5 MG PO (21:46)
[2023-12-27] VITALS: BP 102/56; PULSE 108; RESP 18; TEMP 37; O2SAT 100
[2023-12-27 04:00] VITALS: BP 93/50; PULSE 100; RESP 13; TEMP 36.6; O2SAT 100
[2023-12-27 05:04] LABS: Add Manual Diff / Slide Review NO; Basophils Absolute Auto 100 /uL (0-100); Basophils Percent Auto 1.2 % (0-2); Eosinophils Absolute Auto 0 /uL (0-450); Eosinophils Percent Auto 0.4 % (2-4); Hematocrit 28.4 % (41-53); Lymphocytes Absolute Auto 1100 /uL (1100-4500); Lymphocytes Percent Auto 12.8 % (25-40); Mean Corpuscular HGB Conc 31.7 % (30-36); Mean Corpuscular Hemoglobin 27.1 PG (26-34); Mean Corpuscular Volume 85.2 fL (80-100); Monocytes Absolute Auto 700 /uL (0-900); Monocytes Percent Auto 8.1 % (3-14); Neutrophils Absolute Auto 6800 /uL (1500-7000); Neutrophils Percent Auto 77.5 % (50-75); Platelet Count 582 X10^3/uL (150-400); Red Blood Cell Count 3.33 X10^6/uL (4.5-5.9); White Blood Cell Count 8.8 X10^3/uL (4.5-11.0)
[2023-12-27 05:09] LABS: BUN Creatinine Ratio 17.9 (6-22); Blood Urea Nitrogen 7 mg/dL (9-20); Calcium 8.5 mg/dL (8.4-10.2); Chloride 84 mmol/L (98-107); Estimated Glomerular Filt Rate > 60 mL/min (>60); Glucose 96 mg/dL (80-110); HEMOLYSIS < 15 (0-50); Potassium 3.8 mmol/L (3.4-5.1); Sodium 135 mmol/L (137-145)
[2023-12-27 05:21] LABS: Carbon Dioxide 48 mmol/L (22-32)
[2023-12-27] MEDS: HEPARIN 5,000 UNIT/ML VIAL 5000 UNIT SUBCUT ×2 (05:41→23:02)
[2023-12-27] MEDS: ACETAMINOPHEN 325 MG TABLET 650 MG PO (05:41)
[2023-12-27] MEDS: OXYCODONE IR 10 MG TABLET PO ×3 (05:41→20:35)
[2023-12-27 06:00] VITALS: PULSE 83; RESP 20; O2SAT 92
[2023-12-27 08:00] VITALS: BP 94/50; PULSE 100; RESP 67; O2SAT 100
--- NOTE | 2023-12-27 09:17 | P.PN_ITS ---
Subjective Subjective Interval history: A 30 min goals of care conversation was held with SALES ASSISTANT DISPLAYS, the patient, gisele, and son who is DPOA. We laid out hospice as the best route for him to return home. He agreed so hospice referrals will be placed. Exam Vital Signs (past 8 hours): - 12/27/23 04:00 12/27/23 04:00 12/27/23 06:00 Temperature 97.8 F Pulse Rate 100 H 83 Respiratory Rate 13 20 Blood Pressure 93/50 L Pulse Oximetry 100 92 Oxygen Delivery Method Oxygen Flow Rate 3 12/27/23 07:00 12/27/23 08:00 12/27/23 08:00 Temperature Pulse Rate 100 H Respiratory Rate 67 H Blood Pressure 94/50 L Pulse Oximetry 100 Oxygen Delivery Method Nasal Cannula Oxygen Flow Rate Fraction of Inspired Oxygen 32 SaO2/FiO2 Ratio 312 Oxygen Delivery Method Nasal Cannula Oxygen Flow Rate 3 Narrative Exam Narrative: Comfortable on 3L NC. Severely cachectic. Lungs rhonchorous. CV tachycardic. Abdomen flat and soft. No leg edema. Objective Labs 12/27/23 04:45 12/27/23 04:45 Labs: Laboratory Results - last 24 hr 12/27/23 04:45 WBC 8.8 RBC 3.33 L Hgb 9.0 L Hct 28.4 L MCV 85.2 MCH 27.1 MCHC 31.7 RDW 16.0 H Plt Count 582 H Neut % (Auto) 77.5 H Lymph % (Auto) 12.8 L Leslie % (Auto) 8.1 Eos % (Auto) 0.4 L Baso % (Auto) 1.2 Neut # (Auto) 6800 Lymph # (Auto) 1100 Leslie # (Auto) 700 Eos # (Auto) 0 Baso # (Auto) 100 Sodium 135 L Potassium 3.8 Chloride 84 L Carbon Dioxide 48 H* BUN 7 L Creatinine 0.39 L Estimated GFR > 60 BUN/Creatinine Ratio 17.9 Glucose 96 Calcium 8.5 PFSH Medical History Tracheostomy in place Sepsis Muscle pain Foot pain Ankle pain Chronic back pain Acid reflux Tobacco use disorder, moderate, in early remission Hypertension Ankylosing spondylitis Alcohol abuse Ankylosing spondylitis (1985) GERD (gastroesophageal reflux disease) Hypertension Fracture cervical vertebra-closed Surgical History Status post incision and drainage History of open reduction and internal fixation (ORIF) procedure (2005) Status post colonoscopy (2012) History of tonsillectomy Family History Father No problems noted. Mother Cancer Other Alcoholism Colorectal cancer Social History household members: family Smoking Status: Current every day smoker Assessment & Plan Assessment & Plan narrative: Patient elected for hospice on 12/27. SALES ASSISTANT DISPLAYS arranging. 1. Acute hypoxemic respiratory failure, POA and improving. -secondary to possible aspiration pneumonia, sepsis. May have component of chronic respiratory failure with presenting adeno and rhinoviral infections as well. -intubated on admit, tube exchanged 12/15. Extubated 12/20. -now on 3L NC 2. Septic shock, POA and resolved. -cont pressor support if needed, maintain MAP > 65 -PCR + adenovirus, + entero/rhino, +nasal MRSA -Abx changed to ceftriaxone 12/21 and finished on 12/27 3. Acute metabolic encephalopathy, POA and resolved. 4. Acute hyponatremia, POA and improved. -SIADH and mild at 134 5. Severe protein calorie malnutrition and dysphagia, POA and active. -coil winding supervisor consulted and patient prefers to eat over artificial nutrition -patient decisional and elected to take aspiration risk and drink liquids, despite MBS with evidence of aspiration 6. Hypomagnesemia, hypokalemia, present on admission and improving. -supplementing. Dispo: Pending hospice referrals. POLST updated to DNR and limited interventions. Quality VTE Deep Vein Thrombosis/Pulmonary Embolism Present on Admission: No
[2023-12-27] MEDS: cefTRIAXone 1,000 MG in SODIUM CHLORIDE 0.9% 100 ML 200 MG IV (09:46)
[2023-12-27] MEDS: SODIUM CHLORIDE 0.9% FLUSH 10 ML IV ×2 (09:46→23:02)
--- NOTE | 2023-12-27 10:04 | PT-IP ANOTE ---
Per hospitalist during rounds, pt on hold for PT today. hospitalist will talk to pt and family regarding hospice care. will f/u.
--- NOTE | 2023-12-27 10:34 | OT.IPNOTE ---
Per Hospitalist hold pt from therapy today as to have a discussion with pt and his family regarding Hospice.
[2023-12-27 12:00] VITALS: BP 96/70; PULSE 92; RESP 37; TEMP 36.2; O2SAT 96
--- NOTE | 2023-12-27 14:26 | CM.DPNOTE ---
DCP Cont This CONTROL TOWER OPERATOR and Dr Porras had lengthy conversation in room with patient, son Yifan, dillon Kumar and ex spouse Mercedes, reviewed patient's goals of care. Reviewed ASSEMBLER DIELECTRIC HEATER's findings and recommendations, reviewed patient's past medical history and current. Discussed patient's ongoing wishes to continue to eat and drink what he wants and to return home. Discussed hospice services and comfort focused pathway vs rehabilitative pathway. Family all agree that patient has been deteriorating for quite some time and feel hospice services would be appropriate. Patient expresses concern about this plan initially, says he is scared of hospice and doesn't want to . Dr Porras and this CONTROL TOWER OPERATOR supported patient and validated feelings of concern and fear. Encouraged patient and family to review options together. Upon return to patient's room, patient and family had decided that home w/hospice services would be their preference. [facility] and would be sent this referral. Patient gives team permission to contact Mercedes P [phone] if estela Saha cannot be reached, for coordination purposes. Patient confirms he would be returning home to [address] [place], [place] [id number]. Family plan to care for patient in his home. Dr Porras has updated POLST w/patient to reflect DNR. Referral sent to [facility]; spoke with Julia. Requested hospital bed, BSC, O2, suction and transport w/c. Julia will place call to family to schedule info visit. Likely delivery of equipment tomorrow, start of care Saturday afternoon- although schedule can change. Plan: Anticipate patient will remain admitted until hospice can get DME delivered, barrel painter is scheduled to start care same day as discharge w/BLS transport home. CM team following closely for coordination of discharge plan. ESDRAS
[2023-12-27] MEDS: CYCLOBENZAPRINE 10 MG TABLET 5 MG PO (16:58)
[2023-12-27 20:38] VITALS: BP 109/60; PULSE 101; RESP 14; TEMP 36.8; O2SAT 100
[2023-12-28] MEDS: CYCLOBENZAPRINE 10 MG TABLET 5 MG PO (05:15)
[2023-12-28] MEDS: ACETAMINOPHEN 325 MG TABLET 650 MG PO (05:15)
[2023-12-28] MEDS: OXYCODONE IR 10 MG TABLET PO (05:15)
[2023-12-28] MEDS: HEPARIN 5,000 UNIT/ML VIAL 5000 UNIT SUBCUT (05:16)
[2023-12-28 09:00] VITALS: BP 92/60; PULSE 98; RESP 16; TEMP 36.7; O2SAT 100
[2023-12-28] MEDS: SODIUM CHLORIDE 0.9% FLUSH 10 ML IV (09:03)
[2023-12-28] MEDS: cefTRIAXone 1,000 MG in SODIUM CHLORIDE 0.9% 100 ML 200 MG IV (09:03)
[2023-12-28] MEDS: fentaNYL 50 MCG/PATCH TOP (09:03)
[2023-12-28] MEDS: MORPHINE 10 MG/0.5 ML ORAL SYRINGE 20 MG PO ×5 (10:30→15:07)
--- NOTE | 2023-12-28 11:45 | PM.PN.1 ---
Subjective Subjective Interval history: 63 M with chronic opiate use, intubated initially due to aspiration PNA, extubated last week but with acute worsening recently. Rediscussed goals of care and now is primarily comfort care. Added morphine and lorazepam SL today for symptom management. Exam Vital Signs (past 8 hours): - 12/28/23 07:00 12/28/23 09:00 Temperature 98.1 F Pulse Rate 98 H Respiratory Rate 16 Blood Pressure 92/60 Pulse Oximetry 100 Oxygen Delivery Method Nasal Cannula Oxygen Flow Rate 3 Fraction of Inspired Oxygen 32 SaO2/FiO2 Ratio 312 Oxygen Delivery Method Nasal Cannula Oxygen Flow Rate 3 Narrative Exam Narrative: Comfortable on 3L NC. Severely cachectic. Lungs rhonchorous. CV tachycardic. Abdomen flat and soft. No leg edema. Objective Labs 12/27/23 04:45 12/27/23 04:45 [facility] Medical History Tracheostomy in place Sepsis Muscle pain Foot pain Ankle pain Chronic back pain Acid reflux Tobacco use disorder, moderate, in early remission Hypertension Ankylosing spondylitis Alcohol abuse Ankylosing spondylitis (1985) GERD (gastroesophageal reflux disease) Hypertension Fracture cervical vertebra-closed Surgical History Status post incision and drainage History of open reduction and internal fixation (ORIF) procedure (2005) Status post colonoscopy (2012) History of tonsillectomy Family History Father No problems noted. Mother Cancer Other Alcoholism Colorectal cancer Social History household members: family Smoking Status: Current every day smoker Assessment & Plan Assessment & Plan narrative: Patient elected for hospice on 12/27. HVAC TECHNICIAN RESIDENTIAL arranging. -adding additional pain control with morphine SL and lorazepam SL today in hopes symptoms can be controlled well enough to discharge with home hospice. 1. Acute hypoxemic respiratory failure, POA and improving. -secondary to possible aspiration pneumonia, sepsis. May have component of chronic respiratory failure with presenting adeno and rhinoviral infections as well. -intubated on admit, tube exchanged 12/15. Extubated 12/20. -now on 3L NC, likely some degree of chronic respiratory failure. -now after goals of care discussion, elected for hospice. -stop daily labs. Continue symptom management with opiates, and SL ativan due to aspiration. Seen by NUT DEHYDRATOR OPERATOR. Can stop PT/OT given goals of care. 2. Septic shock, POA and resolved. -cont pressor support if needed, maintain MAP > 65 -PCR + adenovirus, + entero/rhino, +nasal MRSA -Abx changed to ceftriaxone 12/21 and finished on 12/28. Now stopped. 3. Acute metabolic encephalopathy, POA and resolved. 4. Acute hyponatremia, POA and improved. -SIADH and mild at 134 5. Severe protein calorie malnutrition and dysphagia, POA and active. -architectural design lecturer consulted and patient prefers to eat over artificial nutrition -patient decisional and elected to take aspiration risk and drink liquids, despite MBS with evidence of aspiration 6. Hypomagnesemia, hypokalemia, present on admission and improving. -supplementing. Dispo: Pending hospice referrals. POLST updated to DNR and limited interventions. Quality VTE Deep Vein Thrombosis/Pulmonary Embolism Present on Admission: No
[2023-12-28] MEDS: LORazepam 2 MG/ML ORAL SOL 1 MG PO ×2 (12:17→14:41)
[2023-12-28] MEDS: MORPHINE 4 MG/ML INJ IV ×3 (12:35→16:09)
[2023-12-28] MEDS: SCOPOLAMINE 1 PATCH TOP (12:43)
--- NOTE | 2023-12-28 14:03 | CM.DPNOTE ---
EDWAR Bolton Spoke with Julia at [facility]. Equipment will be delivered to patient's home Saturday morning with RN start of care Saturday afternoon between [id number]. Patient looking especially cachexic today, shallow breathing, looking ill. Plan: If patient survives this hospitalization, discharge anticipated Saturday, home w/family, [facility] RN SOC [id number], need BLS transport arranged. CM team following closely for coordination of discharge plan if patient survives the next 24-48 hrs. Coordination through son Yifan and his mom Mercedes. JW
--- NOTE | 2023-12-28 15:04 | PC.NURSE ---
Early in the afternoon RN attempted to call son Yifan's phone but could not get through (busy signal only) and then called Lizeth and Mercedes. Yifan picked up Mercedes's phone and RN recommended to Yifan that he should come in to the hospital if possible to see the pt. RN explained to Yifan that patient may not live that much longer and if able, Yifan should come to patient's bedside. Yifan indicated understanding and said he would try to come to the hospital.
--- NOTE | 2023-12-28 16:31 | PM.DDS.1 ---
Discharge Summary History of Illness Narrative: Per admitting provider, José Miguel Do is a 63yo M with PMH of opioid dependence, ankylosing spondylitis, tobacco use, alcohol use, GERD, HTN, and previous sepsis with PNA requiring intubation then trach/PEG in 2022 who presents with altered mental status and unable to protect airway after smoking percocets. Patient is intubated. Per his neice he was at home and hasn't been feeling well the past several days with a cough. He then somehow obtained percocets and smoked them and became unresponsive. Was given narcan by EMS in the field and had improvement in AMS. In the ED patient satting in the 50's so was intubated. Unable to obtain further history as patient is intubated and family not available. Hospital Course Date of Admission: 12/14/23 14:22 Primary care provider: Yuliya Morin MD Consults: 12/14/23 14:40 Consult to Tele-birth attendant Routine Comment: Consulting Provider: David Tele-intensivists Reason for consultation: Parts Department Supervisor services 12/14/23 15:27 Consult to Soil Field Technician Routine Comment: 12/14/23 18:10 Consult to Dietitian, Adult Routine Comment: Reason For Exam: severe malnourishment, TF 12/15/23 08:16 Consult to Dietitian, Adult Routine Comment: Reason For Exam: Tube feed 12/20/23 11:24 Consult to Speech Therapy Evaluate & Treat Comment: Physician Instructions: Evaluate and treat 12/21/23 08:24 Consult to Physical Therapy Evaluate & Treat Comment: Physician Instructions: Evaluate and Treat 12/24/23 14:32 Consult to Dietitian, Adult Urgent Comment: sacral wound Reason For Exam: sacral wound Consult to Wound Care Routine Comment: Consulting Provider: [facility] 12/26/23 10:25 Consult to Occupational Therapy Evaluate & Treat Comment: Physician Instructions: Evaluate and treat Consult to Physical Therapy Evaluate & Treat Comment: Physician Instructions: Evaluate and Treat Discharge provider: Jda Contreras D.O. Discharge Diagnosis: 1. Acute hypoxemic respiratory failure, POA and improving. 2. Septic shock, POA and resolved. 3. Acute metabolic encephalopathy, POA and resolved. 4. Acute hyponatremia, POA and improved. 5. Severe protein calorie malnutrition and dysphagia, POA and active. 6. Hypomagnesemia, hypokalemia, present on admission and improving. Hospital Course: This was a 63 year old male with PMH of chronic opiate abuse, chronic pain with prior tracheostomy and PEG placement, chronic severe protein calorie malnutrition who was admitted for acute hypoxic respiratory failure and septic shock due to likely aspiration. He was intubated in the ER, admitted to the ICU. He required pressor support initially and for some time after admission. He was started on broad spectrum antibiotics. MRSA nasal swab was positive, and respiratory panel was notable for adeno/rhinovirus. No sputum cultures or blood culteres were positive for bacteria. He was extubated on 12/20 to high flow nasal cannula, then reduced to regular nasal cannula oxygen after a day. He was initially doing well, but did not continue to follow COIN MACHINE SERVICER REPAIRER recommendations and want to continue drinking thin liquids understand the risks of chronic aspiration. His respiratory status began to decline again after extubation due to recurrent aspiration. After goals of care discussion, patient elected for comfort care and hospice. He declined quite quickly after that decision. He was kept comfortable with opiates and benzodiazepines for anxiety, and at 16:30 on 12/28/2023. Objective Labs 12/27/23 04:45 12/27/23 04:45
--- NOTE | 2023-12-28 17:03 | PC.NURSE ---
1630 Pt , verified by auscultation, Dr Contreras notified, charge nurse Mili notified, post mortem care provided, Fentanyl patch removed and placed in cactus disposal bin. No further patient contact, RIP
--- NOTE | 2023-12-28 17:45 | PT.IPTN ---
Current Diagnoses Sepsis, unspecified organism (12/14/23) Unspecified severe protein-calorie malnutrition (12/14/23) Hypo-osmolality and hyponatremia (12/14/23) Delirium due to known physiological condition (12/14/23) Other stimulant abuse, in remission (12/14/23) Adenoviral pneumonia (12/14/23) Respiratory syncytial virus pneumonia (12/14/23) Acute respiratory failure with hypoxia (12/14/23) Chronic respiratory failure with hypercapnia (12/14/23) Pressure ulcer of sacral region, stage 3 (12/14/23) Physical Therapy Treatment Note M2 PT-IP Current Condition Start: 12/21/23 13:07 Freq: NEEDED Status: Active Protocol: Document 12/21/23 11:45 AB (Rec: 12/21/23 13:24 AB [id number]) Physical Therapy Current Condition Current Condition Evaluation Date 12/21/23 Treatment Diagnosis respiratory failure; septic shock; difficulty in walking Onset Date 12/14/23 M3 PT-IP Subjective Start: 12/21/23 13:07 Freq: NEEDED Status: Active Protocol: Document 12/28/23 17:44 AB (Rec: 12/28/23 17:45 AB [id number]) Subjective Physical Therapy Visit Type Type Administrative Note Notes pt will be going on hospice care. M6 PT-IP Treatment Start: 12/21/23 13:07 Freq: NEEDED Status: Active Protocol: Document 12/26/23 12:30 MB (Rec: 12/26/23 13:18 MB [id number]) Physical Therapy Treatment Education Education Provided Safety M7 PT-IP Assessment and Plan Start: 12/21/23 13:07 Freq: NEEDED Status: Active Protocol: Document 12/28/23 17:44 AB (Rec: 12/28/23 17:45 AB [id number]) PT Summary Assessment and Plan Frequency of Treatment Frequency Of Treatment Discharge
--- NOTE | 2023-12-29 08:00 | CM.DPNOTE ---
Addendum entered by VARGAS Cutler 12/29/23 08:08: ADD: SW called [facility] and spoke to Megha and updated that pt and they cancelled DME delivery for tomorrow and called [facility] with their RN for tomorrow afternoon. BF Original Note: DCP Per MD, pt yesterday around 1630 and family was notified and body was collected. VARGAS Cutler
== END 2023-12-28 20:50 | disposition expired | DRG 870 ==
LOC: ED 12:51 → AC 14:25 → ICU 15:08
PROVIDERS: Hospitalist; Internal Medicine; Internal Medicine Critical Care Medicine; Internal Medicine Pulmonary Disease; Admitting Provider Student in an Organized Health Care Education/Training Program; Emergency Provider Emergency Medicine; PCP Family Medicine; Referring Provider Emergency Medicine; Visit Provider Student in an Organized Health Care Education/Training Program
DX: A41.9 Sepsis, unspecified organism (principal); L89.153 Pressure ulcer of sacral region, stage 3; R65.21 Severe sepsis with septic shock; J96.01 Acute respiratory failure with hypoxia; G92.9 Unspecified toxic encephalopathy; E43 Unspecified severe protein-calorie malnutrition; J69.0 Pneumonitis due to inhalation of food and vomit; J96.02 Acute respiratory failure with hypercapnia; G93.41 Metabolic encephalopathy; E22.2 Syndrome of inappropriate secretion of antidiuretic hormone; Z68.1 Body mass index [BMI] 19.9 or less, adult; F17.200 Nicotine dependence, unspecified, uncomplicated; E86.0 Dehydration; E83.42 Hypomagnesemia; E87.6 Hypokalemia; T40.2X1A Poisoning by other opioids, accidental (unintentional), initial encounter; F15.10 Other stimulant abuse, uncomplicated; F11.10 Opioid abuse, uncomplicated; E11.9 Type 2 diabetes mellitus without complications; B34.0 Adenovirus infection, unspecified; B34.8 Other viral infections of unspecified site; R13.10 Dysphagia, unspecified; A49.02 Methicillin resistant Staphylococcus aureus infection, unspecified site; Z51.5 Encounter for palliative care; Z66 Do not resuscitate
CPT/HCPCS: 31500; 36415; 36592; 36600; 70450; 71045; 71275; 74230; 80048; 80053; 80202; 80305; 80320; 80329; 81001; 82140; 82805; 82962; 83605; 83690; 83735; 83880; 83935; 84145; 84295; 84300; 85007; 85025; 85379; 85610; 87040; 87633; 87797; 92526; 92610; 92611; 94002; 94003; 94010; 94640; 94667; 94760; 94762; 94799; 96365; 96366; 96367; 96375; 97163; 97164; 97166; 97530; 99232; 99233; 99285; 99291; 99292; C9113; G0480; J0692; J0696; J1170; J1644; J1720; J2060; J2185; J2270; J2704; J3010; J3475; J7613; Q9967